=== PATIENT | female | born 1960 | race Caucasian/White ===

== ENCOUNTER 2017-12-28 16:35 | Inpatient (IN) | payer MEDICARE, SELFPAY ==
[2017-12-28] VITALS (15 sets, daily range): BP systolic 72–155; BP diastolic 37–81; PULSE 64–99; RESP 11–17; TEMP 35.9–36.5; O2SAT 87–100; BMI 41.5; BMI 43.3
[2017-12-28 16:52] LABS: Bedside Glucose 134 mg/dL (70-110)
--- NOTE | 2017-12-28 16:55 | EKG12_ITS ---
Test Reason : NEURO S/SX Blood Pressure : / mmHG Vent. Rate : 072 BPM Atrial Rate : 072 BPM P-R Int : 188 ms QRS Dur : 096 ms QT Int : 450 ms P-R-T Axes : 052 055 -32 degrees QTc Int : 492 ms Normal sinus rhythm Normal ECG Confirmed by RACIEL RAYMUNDO ([id number]), purchasing expeditor MEGHANN MILLER ([id number] on 01/01/2018 1:06:31 PM Referred By: KYREE/KEAGAN Confirmed By:RACIEL RAYMUNDO
[2017-12-28] MEDS: 0.9% Normal Saline 1,000 ML IV.SOLN. 2500 ML IV (17:00)
--- NOTE | 2017-12-28 17:00 | RAD_ITS ---
STUDY: X-RAY CHEST REASON FOR EXAM: Female, 57 years old. PT [place] [facility] WITH LEFT SIDED FACIAL DROOP, SLURRED SPEECH. HYPOTENSION. BG 193 TECHNIQUE: PT FROM [facility] WITH LEFT SIDED FACIAL DROOP, SLURRED SPEECH. HYPOTENSION. BG 193 COMPARISON: November 18, 2017 FINDINGS: Cardiac monitoring leads are present. The lungs are clear and expanded. There is no demonstrated pleural abnormality. Normal size heart. Normal mediastinum and jonathan. Normal visualized pulmonary arteries. Normal visualized aortic arch and descending thoracic aorta. There are diffuse degenerative changes of the visualized thoracic spine. Normal visualized ribs, clavicles, and shoulders. There is no demonstrated abnormality of the visualized soft tissue structures of the upper abdomen. RAD/Chest 1 View (Portable) IMPRESSION: No acute intrathoracic process or interval change. Electronically Signed: Mikki Saez MD at 18:02 EST Tel , Service support ,
--- NOTE | 2017-12-28 17:00 | ED.VISSUMM ---
- ER Visit Summary Date of Service: 12/28/17 Chief Complaint: Decreased level of consciousness History of Present Illness: The patient is a 57 F from [facility] facility who has a decreased level of consciousness. Apparently, one nurse there said that she is at her baseline and the other nurse said that she is lethargic. The patient states that she feels fine and she is ready to democrat. She does appear lethargic. She has no other focal complaints. Patient is evaluated at approximately 4:45 PM, she had lunch at 1:30 PM and afterwards she was given medicines that included gabapentin 800 mg and Percocet, unknown dose. The medicines were for her back. She states right now her back feels great. Around 1-2 weeks ago, her gabapentin dose was increased. There is no other specific history provided. The time of symptom onset is unknown. The patient states I was going to visit a friend, when they suddenly detoured me here, to the ER. Physical Examination: Urgent. Blood pressure 72/37, heart rate 74, respirations 14, pulse ox 97% on 2 L nasal cannula. Afebrile. Obese. Alerts easily to voice. Not confused. Nonlateralizing normal neurologic exam otherwise. No facial droop appreciated. On command, she raises all 4 extremities without difficulty. Lungs are clear, easy work of breathing. Heart is regular without tachycardia or murmur. Neck is supple. No meningismus. Abdomen benign. 1+ bilateral lower extremity symmetric edema that is chronic according to her since her last stroke which was sometime last year. Pupils are 2 mm bilaterally and reactive. Oral mucous membranes are a little dry. Test Results: EKG shows sinus rhythm at 72 and is normal. Labs show a hemoglobin 7.8, her last one was 8.5 a month ago. Her BUN is 28, creatinine is 2.01, her creatinine was 0.88 one month ago. Otherwise labs are normal including a lactate 1.1. Urinalysis shows no signs of infection. Chest x-ray and CT head showed no acute abnormalities. Hemoccult stool negative. Influenza negative. Emergency Department Course and Treatment: She was given 2-1/2 L of IV fluid bolus and on reevaluation her blood pressure is 80s over 50s, later 95/65. Her clinical condition is unchanged, we woke her up for Hemoccult and she was able to help us roll herself over. Otherwise she is stable and breathing well and satting well. Unknown if her anemia is causing her hypotension, I see no sign of infection. There is no sign of any bleeding from anywhere. Medications could be causing this, but after being observed for 4 and half hours her condition is unchanged clinically and her blood pressure is slowly increasing. Will admit for further evaluation and treatment. Disposition: Admit Impression: Acute kidney injury Hypotension Acute on chronic anemia Lethargy This note was generated with [employer] dictation software. It may contain incorrect words, spelling, and punctuation that were not noted in review of the chart prior to signing ED Disposition - Plan for ED Patient: Disposition: Acute Care Hospital [facility] Chief Complaint: Neuro S/Sx Referrals: Brandon Torres DO [Primary Care Provider] -
--- NOTE | 2017-12-28 17:03 | ED.DCSUM_ITS ---
- ER Visit Summary Date of Service: 12/28/17 Chief Complaint: Decreased level of consciousness History of Present Illness: The patient is a 57 F from intermediate facility who has a decreased level of consciousness. Apparently, one nurse there said that she is at her baseline and the other nurse said that she is lethargic. The patient states that she feels fine and she is ready to green party. She does appear lethargic. She has no other focal complaints. Patient is evaluated at approximately 4:45 PM, she had lunch at 1:30 PM and afterwards she was given medicines that included gabapentin 800 mg and Percocet, unknown dose. The medicines were for her back. She states right now her back feels great. Around 1-2 weeks ago, her gabapentin dose was increased. There is no other specific history provided. The time of symptom onset is unknown. The patient states I was going to visit a friend, when they suddenly detoured me here, to the ER. Physical Examination: Urgent. Blood pressure 72/37, heart rate 74, respirations 14, pulse ox 97% on 2 L nasal cannula. Afebrile. Obese. Alerts easily to voice. Not confused. Nonlateralizing normal neurologic exam otherwise. No facial droop appreciated. On command, she raises all 4 extremities without difficulty. Lungs are clear, easy work of breathing. Heart is regular without tachycardia or murmur. Neck is supple. No meningismus. Abdomen benign. 1+ bilateral lower extremity symmetric edema that is chronic according to her since her last stroke which was sometime last year. Pupils are 2 mm bilaterally and reactive. Oral mucous membranes are a little dry. Test Results: EKG shows sinus rhythm at 72 and is normal. Labs show a hemoglobin 7.8, her last one was 8.5 a month ago. Her BUN is 28, creatinine is 2.01, her creatinine was 0.88 one month ago. Otherwise labs are normal including a lactate 1.1. Urinalysis shows no signs of infection. Chest x-ray and CT head showed no acute abnormalities. Hemoccult stool negative. Influenza negative. Emergency Department Course and Treatment: She was given 2-1/2 L of IV fluid bolus and on reevaluation her blood pressure is 80s over 50s, later 95/65. Her clinical condition is unchanged, we woke her up for Hemoccult and she was able to help us roll herself over. Otherwise she is stable and breathing well and satting well. Unknown if her anemia is causing her hypotension, I see no sign of infection. There is no sign of any bleeding from anywhere. Medications could be causing this, but after being observed for 4 and half hours her condition is unchanged clinically and her blood pressure is slowly increasing. Will admit for further evaluation and treatment. Disposition: Admit Impression: Acute kidney injury Hypotension Acute on chronic anemia Lethargy This note was generated with [employer] dictation software. It may contain incorrect words, spelling, and punctuation that were not noted in review of the chart prior to signing ED Disposition - Plan for ED Patient: Disposition: Acute Care Hospital [facility] Chief Complaint: Neuro S/Sx Referrals: Brandon Torres DO [Primary Care Provider] -
--- NOTE | 2017-12-28 17:03 | CT_ITS ---
STUDY: CT BRAIN WITHOUT CONTRAST REASON FOR EXAM: Female, 57 years old. DECREASED LOC LEFT FACIAL DROOP, SLURRED SPEECH HTN,ASTHMA,DIAB RADIATION DOSAGE (If Supplied By Facility): CTDIvol = ( 44.99 ) mGy, DLP = ( 762.36 ) mGycm TECHNIQUE: Transaxial CT imaging of the brain was performed without administration of intravenous contrast material. Individualized dose optimization techniques were used for this CT. COMPARISON: MRI of the brain November 19, 2017, CT brain November 17, 2017 FINDINGS: Normal soft tissue structures. Normal calvarium. Normal size ventricles and extra-axial spaces for the patient's age. There are areas of decreased attenuation within the white matter tracts of the supratentorial brain, consistent with microvascular disease changes. Normal basal ganglia and thalami. Normal brainstem. Normal cerebellum. There is no intracranial hemorrhage. There are no findings of an acute ischemic infarction. The previously seen punctate subcortical areas of infarction are difficult to identify on CT though there is a focal area of hypodensity associated with the high right frontal lobe at the vertex that does correlate to prior area of identified infarction. Normal visualized paranasal sinuses. CT/Brain/Head without Contrast IMPRESSION: No acute interval changes. No evidence of hemorrhage. Electronically Signed: Mikki Saez MD at 17:59 EST Tel , Service support ,
[2017-12-28 17:46] LABS: Absolute Lymphocyte Count 1.57 X10^3/ul (0.83-4.51); Absolute Neutrophil Count 3.4 X10^3/uL (2.0-7.7); Basophil# 0.03 X10^3/uL; Basophil% 0.5 % (0-1); Eosinophil# 0.18 X10^3/uL; Eosinophils% 3.2 % (0-5); Hematocrit 24.2 % (37-47); Hemoglobin 7.8 g/dl (12.0-15.0); Lymphocyte # 1.57 X10^3/ul (4.0); Lymphocyte % 27.6 % (19-41); Mean Corp Hgb Conc 32.2 g/gl (32-36); Mean Corpuscular Volume 93.1 fL (81-99); Mean Platelet Vol. 9.6 fl (6.2-12.0); Monocyte# 0.49 X10^3/uL; Monocyte% 8.6 % (0-10); Neutrophil # 3.38 X10^3/uL (2.7-7.7); Neutrophil % 59.6 % (47-70); Platelet Count 185 K/mm3 (150-450); RBC Distribution Width CV 13.9 % (11.6-14.6); RBC Distribution Width SD 45.6 fl (35.1-43.9); White Blood Count 5.7 K/mm3 (4.4-11.0)
[2017-12-28 17:52] LABS: POSITIVE COUNT NO; POSITIVE DIFFERENTIAL NO; POSITIVE MORPHOLOGY NO
[2017-12-28 17:57] LABS: ALB/GLOB Ratio 0.9 RATIO (0.9-2.4); AST(SGOT) 25 U/L (15-37); Alanine Aminotransfer ALT/SGPT 19 U/L (13-56); Albumin, Serum 3.1 g/dL (3.2-5.0); Alkaline Phosphatase 67 U/L (45-117); Anion Gap 8 (5-15); BUN 28 mg/dL (7-18); BUN/Creat Ratio 13.9 RATIO (10-20); Calcium,Total 8.9 mg/dL (8.5-10.1); Chloride 102 mmol/L (98-107); Creatinine, Serum 2.01 mg/dL (0.55-1.02); EST Glomerular Filtration Rate 27 mL/min (>60); Est Glom Filt Rate - Afr Amer 33 mL/min (>60); Estimated Creatinine Clearance 30.03 ml/min; Globulin 3.4 g/dL (2.2-4.2); Glucose 68 mg/dL (74-106); Potassium 3.6 mmol/L (3.5-5.1); Protein, Total 6.5 g/dL (6.4-8.2); Sodium Level 140 mmol/L (136-145)
[2017-12-28 18:13] LABS: International Normalized Ratio 1.1; Partial Thromboplast Time 28.8 Seconds (24.1-36.2); Prothrombin Time (Protime)PT. 13.7 SECONDS (11.7-14.9)
[2017-12-28 18:27] LABS: Mucous, Urine 0 SEEN /hpf (<or=2+); Red Blood Cells-Urine 0 SEEN /hpf (0-5); White Blood Cells 0 SEEN /hpf (0-5)
[2017-12-28 18:28] LABS: Lactic Acid 1.1 mmol/L (0.4-2.0)
[2017-12-28 18:56] LABS: Bedside Glucose 79 mg/dL (70-110)
[2017-12-28 19:19] LABS: Color, Urine Yellow (Yellow); Glucose, Dipstick Normal (Normal); Ketone-Dipstick Negative (Negative); Leukocyte Esterase-Dipstick 25 /ul (Negative); Nitrite-Dipstick Negative (Negative); Occult Blood-Urine Negative /ul (Negative); Protein-Dipstick Negative (Negative); Urine Bilirubin Dipstick Negative (Negative); Urine Clarity Clear (Clear); Urine Urobilinogen Normal (Normal)
[2017-12-28 19:37] LABS: Bacteria RARE /hpf (None Seen); Squamous Epithelial Cells - UA 0-5 SEEN /hpf (5-10)
[2017-12-28 20:21] LABS: Bedside Glucose 92 mg/dL (70-110)
--- NOTE | 2017-12-28 20:57 | ED.RN ---
PT FROM [facility] FOR SLURRED SPEECH, ALTERED LOC, AND POSSIBLE FACIAL DROOP. CONFLICTING STORIES FROM THE NURSES AT [facility]. PT ARRIVES TO ED WITH NO FACIAL DROOP NOTED. STRENGTH INTACT. PT HAS BASELINE SLURRED SPEECH PER [facility] NURSE. NO NIHS ORDERED. PT NOW ALERT AND WATCHING TELEVISION. SEE ADMISSION REPORTS FOR FURTHER DETAILS. PT WITH RASH ON LEFT THIGH AND BUTTOCK. DRESSINGS INTACT.
--- NOTE | 2017-12-28 22:25 | ED.RN ---
PT SISTER NAMED DEANDRE, IS PT MATTIE. PHONE NUMBER IS [phone]. WOULD LIKE CONTACTED WITH PT UPDATES.
--- NOTE | 2017-12-28 22:28 | ED.RN ---
ADONIS NOTIFIED OF PT ADMISSION
--- NOTE | 2017-12-28 22:58 | PCM.HP.STD ---
Problem List (1) ARF (acute renal failure) Status: Acute (2) Coronary artery disease Status: Chronic (3) Diabetes mellitus, type 2 Status: Chronic (4) Hyperlipemia Status: Chronic (5) Hypertension Status: Chronic History of Present Illness Date of Admission: 12/28/17 Chief Complaint: Hypotension The patient is a 57 year old female w/ h/o CAD, HTN, DMII, and ischemic colitis admitted for ARTIE. She is unable to provide a reliable history. Family member stated that she is usually lethargic but the severity is more intense than usual. Unclear onset and duration. Nothing appeared to make it worse or better. Nursing staff from the home unable to give a reliable history as well. She appeared confused and lethargic in the ED. Past Medical History Past Medical History (Chronic Problems): Chronic Problems Hyperlipemia (Chronic) Hypertension (Chronic) Coronary artery disease (Chronic) Diabetes mellitus, type 2 (Chronic) History of Clostridium difficile infection (Chronic) Hx of diverticulitis of colon (Chronic) Status post partial colectomy Obesity (Chronic) Chronic constipation with suspected IBS (Chronic) History of ischemic colitis (Chronic) Allergies adhesive Allergy (Verified 12/28/17 16:35) Unknown hydromorphone HCl [From Dilaudid] Allergy (Verified 12/28/17 16:35) Itching sulfamethoxazole [From Bactrim] Allergy (Verified 12/28/17 16:35) Unknown trimethoprim [From Bactrim] Allergy (Verified 12/28/17 16:35) Unknown Home Medications: Ambulatory Orders Medication Instructions Recorded Carvedilol [Coreg (Beta Eleni)] 25 mg PO BID 09/11/13 Dicyclomine HCl [Bentyl] 40 mg PO TID 02/21/14 Pantoprazole Sodium [Protonix] 40 mg PO BID #60 tablet 07/02/14 Tizanidine HCl [Zanaflex] 4 mg PO TID PRN 05/01/15 Losartan Potassium [Cozaar] 100 mg PO DAILY 03/12/17 Calcium Citrate/Vitamin D3 1 each PO DAILY 11/17/17 [Calcium Citrate-Vit D3 Tablet] Flaxseed Oil [Paia-3 Flaxseed Oil] 1,000 mg PO DAILY 11/17/17 Furosemide [Lasix] 20 mg PO DAILY 11/17/17 Levothyroxine Sodium [Levoxyl] 88 mcg PO DAILY 11/17/17 Potassium Chloride [Klor-Con] 20 meq PO DAILY 11/17/17 Venlafaxine XR [Effexor Xr] 150 mg PO QHS 11/17/17 Aspirin [Aspirin, Baby] 81 mg PO DAILY@0800 #0 tab.chew 11/23/17 Ferrous Sulfate 325 mg PO BIDCM #30 tab 11/23/17 Clopidogrel Bisulfate [Plavix] 75 mg PO DAILY 11/29/17 Lorazepam [Ativan] 0.5 mg PO BID 11/29/17 Oxycodone HCl/Acetaminophen 1 tab PO TID 11/29/17 [Oxycodon-Acetaminophen 7.5-325] Acetaminophen 650 mg PO Q6H PRN PRN 12/28/17 Atorvastatin Calcium [Lipitor] 40 mg PO QHS 12/28/17 Bisacodyl [Dulcolax] 10 mg PO PRN PRN 12/28/17 Bisacodyl [Laxative Suppository] 10 mg RC DAILY PRN PRN 12/28/17 Gabapentin [Neurontin] 800 mg PO TIDCM 12/28/17 Linagliptin [Tradjenta] 5 mg PO DAILY 12/28/17 Magnesium Hydroxide [Milk Of 30 ml PO DAILY PRN PRN 12/28/17 Magnesia] Mupirocin [Bactroban] 1 applic TOPICAL TID 12/28/17 Senna [Senokot] 2 tablet PO QHS 12/28/17 Sertraline HCl [Zoloft] 50 mg PO DAILY 12/28/17 Surgical History: cholecystectomy, total knee arthroplasty, tonsillectomy, - - partial colon resection due to diverticulosis. Psychiatric History: No pertinent psych hx [employer]URITY History: No pertinent [employer] history Smoking Status: Former smoker - *Family History Paternal History Items: Heart Disease Maternal History Items: No pertinent history Review of Systems Unable to obtain accurate/complete ROS d/t: Unable to obtain secondary to confusion VTE Information - Inpt Only VTE Present on Admission: No VTE Mechan Device Prophylaxis: SCD's VTE Pharm Prophylaxis ordered?: Yes - Physical Exam General: No apparent distress, Confused, Disoriented, Lethargic HEENT: Atraumatic, PERRLA, EOMI, Normocephalic Neck: Supple, No JVD, Negative Carotid Bruits Lungs: Clear to auscultation, Normal air movement Cardiovascular: Regular rate, No murmurs Abdomen: Bowel Sounds Present, Soft, Non Tender Extremities: No edema, Capillary Refill Less than 3 Seconds Skin: No rashes, No breakdown Musculoskeletal: No Tenderness to Palpation of Joints or Extremities Neurological: Cranial nerves II-XII grossly intact Psych/Mental Status: Normal Affect, Appropriate Vital Signs Temp Pulse Resp BP Pulse Ox 97.7 F L 73 14 86/42 L 100 12/28/17 21:11 12/28/17 22:11 12/28/17 22:11 12/28/17 22:11 12/28/17 22:11 Oxygen Flow Rate 3 Oxygen Delivery Method Nasal Cannula Weight: 120.2 kg Body Mass Index (BMI) 41.5 Finger Stick Blood Glucose 79 Microbiology Past 72 Hours 12/28/17 20:10 Influenza Types A,B Direct FA (ENEDELIA) - Final Mucosa - Nose 12/28/17 20:11 Stool Occult Blood (ENEDELIA) - Final Stool Laboratory Tests Past 24 Hrs 12/28/17 12/28/17 12/28/17 17:30 17:30 17:30 WBC 5.7 RBC 2.60 L Hgb 7.8 L Hct 24.2 L MCV 93.1 MCH 30.0 MCHC 32.2 RDW 13.9 RDW Differential 45.6 H Plt Count 185 MPV 9.6 Immature Gran % (Auto) 0.500 Neut % (Auto) 59.6 Lymph % (Auto) 27.6 Cole % (Auto) 8.6 Eos % (Auto) 3.2 Baso % (Auto) 0.5 Absolute Neuts (auto) 3.4 Absolute Lymphs (auto) 1.57 Total Counted Not Reportable PT 13.7 INR 1.1 APTT 28.8 Sodium 140 Potassium 3.6 Chloride 102 Carbon Dioxide 30.0 Anion Gap 8 BUN 28 H Creatinine 2.01 H Estim Creat Clear Calc 30.03 Est GFR (MDRD) Af Amer 33 L Est GFR (MDRD) Non-Af 27 L BUN/Creatinine Ratio 13.9 Glucose 68 L Lactic Acid Calcium 8.9 Total Bilirubin 0.60 AST 25 ALT 19 Alkaline Phosphatase 67 Troponin I Total Protein 6.5 Albumin 3.1 L Globulin 3.4 Albumin/Globulin Ratio 0.9 Urine Color Urine Clarity Urine pH Ur Specific [place] Urine Protein Urine Glucose (UA) Urine Ketones Urine Occult Blood Urine Nitrite Urine Bilirubin Urine Urobilinogen Ur Leukocyte Esterase Urine RBC Urine WBC Ur Squamous Epith Cells Urine Bacteria Urine Mucus 12/28/17 12/28/17 12/28/17 17:30 17:30 18:20 WBC RBC Hgb Hct MCV MCH MCHC RDW RDW Differential Plt Count MPV Immature Gran % (Auto) Neut % (Auto) Lymph % (Auto) Cole % (Auto) Eos % (Auto) Baso % (Auto) Absolute Neuts (auto) Absolute Lymphs (auto) Total Counted PT INR APTT Sodium Potassium Chloride Carbon Dioxide Anion Gap BUN Creatinine Estim Creat Clear Calc Est GFR (MDRD) Af Amer Est GFR (MDRD) Non-Af BUN/Creatinine Ratio Glucose Lactic Acid 1.1 Calcium Total Bilirubin AST ALT Alkaline Phosphatase Troponin I < 0.02 Total Protein Albumin Globulin Albumin/Globulin Ratio Urine Color Yellow Urine Clarity Clear Urine pH 7.0 Ur Specific [place] 1.010 Urine Protein Negative Urine Glucose (UA) Normal Urine Ketones Negative Urine Occult Blood Negative Urine Nitrite Negative Urine Bilirubin Negative Urine Urobilinogen Normal Ur Leukocyte Esterase 25 H Urine RBC 0 SEEN Urine WBC 0 SEEN Ur Squamous Epith Cells 0-5 SEEN Urine Bacteria RARE Urine Mucus 0 SEEN POC Glucose 12/28/17 12/28/17 12/28/17 20:14 18:50 16:44 POC Glucose 92 79 134 H Assessment/Plan 57 year old female w/ h/o CAD, HTN, DMII, and ischemic colitis admitted for ARTIE. 1) ARTIE: Most likely secondary to ischemic injury vs azotemia. SBP 70s in the ED. No clear e/o sepsis. Will get cultures. Will get lactic. Will hydrate. U/A negative. If no improvement, will consider further workup. 2) Hypotension: Likely poor PO intake and narcotic along with ARTIE prolonging half-life of meds. Hydration. Sepsis workup pending. Monitor. 3) Chronic normocytic anemia: FOBT negative. Will follow H and H. Supportive care. 4) Chronic issues: CAD, DMII: Resume home meds. 5) Prophylaxis: SCD / heparin
[2017-12-28] MEDS: 0.9% Normal Saline 1,000 ML 125 ML IV (23:34)
[2017-12-29] VITALS (16 sets, daily range): BP systolic 114–183; BP diastolic 62–107; PULSE 94–141; RESP 13–20; TEMP 36.9–37.9; O2SAT 93–100; BMI 43.3
[2017-12-29 00:24] LABS: Lactic Acid 1.5 mmol/L (0.4-2.0)
[2017-12-29] MEDS: Acetaminophen 325 MG Tablet 650 MG PO ×3 (02:13→17:40)
[2017-12-29] MEDS: oxyCODONE 5 MG Tablet PO ×3 (02:42→17:40)
[2017-12-29] MEDS: Dicyclomine 10 MG Capsule 40 MG PO ×3 (05:10→21:48)
[2017-12-29] MEDS: tiZANidine HCl 2 MG Tablet 4 MG PO ×3 (05:10→21:54)
[2017-12-29] MEDS: Levothyroxine 88 MCG Tablet PO (05:12)
[2017-12-29] MEDS: Gabapentin 300 MG Capsule PO ×2 (05:52→11:38)
[2017-12-29 06:13] LABS: Hematocrit 27.1 % (37-47); Hemoglobin 8.7 g/dl (12.0-15.0); Mean Corp Hgb Conc 32.1 g/gl (32-36); Mean Corpuscular Hgb 29.3 pg (27.0-32.0); Mean Corpuscular Volume 91.2 fL (81-99); Mean Platelet Vol. 9.3 fl (6.2-12.0); Platelet Count 164 K/mm3 (150-450); RBC Distribution Width CV 14.1 % (11.6-14.6); RBC Distribution Width SD 46.5 fl (35.1-43.9); Red Blood Count 2.97 M/mm3 (4.2-5.4); White Blood Count 5.6 K/mm3 (4.4-11.0)
[2017-12-29 06:15] LABS: Scan Indicated on CBC? Y/N NO
[2017-12-29 06:55] LABS: Anion Gap 10 (5-15); BUN 28 mg/dL (7-18); BUN/Creat Ratio 17.3 RATIO (10-20); Calcium,Total 8.9 mg/dL (8.5-10.1); Chloride 101 mmol/L (98-107); Creatinine, Serum 1.62 mg/dL (0.55-1.02); EST Glomerular Filtration Rate 35 mL/min (>60); Est Glom Filt Rate - Afr Amer 42 mL/min (>60); Estimated Creatinine Clearance 34.48 ml/min; Glucose 127 mg/dL (74-106); Potassium 4.5 mmol/L (3.5-5.1); Sodium Level 137 mmol/L (136-145)
[2017-12-29] MEDS: 0.9% Normal Saline 1,000 ML 125 ML IV ×2 (08:03→16:14)
--- NOTE | 2017-12-29 08:36 | PCM.PN.HOSP ---
Patient Problems: Active and Suspected Problems Hypotension (Acute) ARF (acute renal failure) (Acute) Subjective: C/o pain in her feet and requesting her neurontin. No shortness of breath. Vitals/I&O's: Vital Signs Temp Pulse Resp BP Pulse Ox 37.6 C H 101 H 13 183/96 H 93 12/29/17 04:56 12/29/17 06:55 12/29/17 04:56 12/29/17 04:56 12/29/17 04:56 Oxygen Flow Rate 2 Oxygen Delivery Method Room Air Weight: 118.1 kg Body Mass Index (BMI) 43.3 Orthostatic Vital Signs Start: 12/28/17 23:40 Freq: q24h Status: Active Protocol: Activity Type Activity Date Activity User E-Sign Co-Sign Detail Recorded Client Recorded Date Recorded By Document 12/28/17 23:42 [facility] [place] [id number] 12/28/17 23:52 EEJ 12/28/17 23:42 Orthostatic Vitals Standing -Blood Pressure (90/60-120/80) 155/81 H -Extremity Use Right Arm -Pulse Rate (60-100) 99 Sitting -Blood Pressure (90/60-120/80) 130/77 H -Extremity Use Left Arm -Pulse Rate (60-100) 86 Lying -Blood Pressure (90/60-120/80) 124/68 H -Extremity Use Left Arm -Pulse Rate (60-100) 79 Intake and Output for Last 24 Hours 12/27/17 12/28/17 12/29/17 23:59 23:59 23:59 Intake Total 0 / 0 1323 / 1323 Output Total 0 / 0 Balance 0 / 0 1323 / 1323 General: Alert, Cooperative, No apparent distress, - - appears older than stated age. HEENT: Atraumatic, Normocephalic Neck: No Nodes, Thyroid Normal Size and Texture Lungs: Clear to auscultation, Normal air movement, No rhonchi, No wheeze Cardiovascular: Regular rate, Regular Rhythm, Normal S1, Normal S2 Abdomen: Bowel Sounds Present, Soft, Non Tender, Non-Distended, No Hepato-splenomegaly Extremities: No edema, No Calf Tenderness Skin: No rashes, No breakdown Psych/Mental Status: Normal Affect, Appropriate Laboratory Results 12/28/17 23:38: Lactic Acid 1.5 12/29/17 05:46: WBC 5.6, RBC 2.97 L, Hgb 8.7 L, Hct 27.1 L, MCV 91.2, MCH 29.3, MCHC 32.1, RDW 14.1, RDW Differential 46.5 H, Plt Count 164, MPV 9.3 12/29/17 05:46: Sodium 137, Potassium 4.5, Chloride 101, Carbon Dioxide 26.0, Anion Gap 10, BUN 28 H, Creatinine 1.62 H, Estim Creat Clear Calc 34.48, Est GFR (MDRD) Af Amer 42 L, Est GFR (MDRD) Non-Af 35 L, BUN/Creatinine Ratio 17.3, Glucose 127 H, Calcium 8.9 Current Medications Acetaminophen (Tylenol) 650 mg PO Q6H PRN PRN PRN Reason: pain/fever Last Admin: 12/29/17 02:13 Dose: 650 mg Aspirin (Aspirin, Baby) 81 mg PO DAILY@0800 [facility] Atorvastatin Calcium (Lipitor) 40 mg PO QHS [facility] Bisacodyl (Dulcolax) 10 mg PO DAILY PRN PRN PRN Reason: Constipation Calcium/Vitamin D (Os-Jose 500mg + D) 1 tablet PO DAILY [facility] Carvedilol (Coreg) 25 mg PO BID [facility] Clopidogrel Bisulfate (Plavix) 75 mg PO DAILY [facility] Dicyclomine HCl (Bentyl) 40 mg PO TID [facility] Last Admin: 12/29/17 05:10 Dose: 40 mg Ferrous Sulfate ([facility] Sulf[facility]) [facility] Gabapentin (Neurontin) 300 mg PO TIDCM [facility] Last Admin: 12/29/17 05:52 Dose: 300 mg Heparin Sodium (Porcine) (Heparin Na) 5,000 unit SC Q8 [facility] Last Admin: 12/29/17 05:10 Dose: 5,000 u Sodium Chloride () 1,000 mls @ 125 mls/hr IV .Q8H [facility] Last Admin: 12/29/17 08:03 Dose: 125 mls/hr Levothyroxine Sodium (Synthroid) 88 mcg PO DAILY@0600 [facility] Last Admin: 12/29/17 05:12 Dose: 88 mcg Nutritional Formula (Lactose Free) (Glucerna Shake) 120 ml PO 4X/DAY [facility] Oxycodone HCl (Oxyir) 5 mg PO Q6H PRN PRN PRN Reason: SEVERE PAIN (6-08/14) Last Admin: 12/29/17 02:42 Dose: 5 mg Pantoprazole Sodium (Protonix) 40 mg PO BID [facility] Senna (Senokot) 2 tablet PO QHS [facility] Sertraline HCl (Zoloft) 50 mg PO DAILY [facility] Tizanidine HCl (Zanaflex) 4 mg PO TID [facility] Last Admin: 12/29/17 05:10 Dose: 4 mg Assessment/Plan Active and Suspected Problems Hypotension (Acute) ARF (acute renal failure) (Acute) 1. ARTIE likely prerenal +/- ATN improved baseline Cr 0.8. continue IVF 2. Hypotension likely hypovolemic now becoming hypertensive slowly reintroduce antihypertesives as able. 3. anemia: chronic. monitor no need for transfusions check iron, tibc, ferritin, b12, folate 4. DM2 fair control continue tradjenta add ssi 5. neuropathy continue neurontin and oxycodone no change at this time, but would recommend wean oxycodone and focus on non-narcotics 6. CAD stable continue DAPT, coreg ARB on hold give ARTIE 7. DVT proph: sq heparin. Code Visit Inpatient E&M: 11141 Subs Hosp L2
--- NOTE | 2017-12-29 08:44 | PN_ITS ---
Patient Problems: Active and Suspected Problems Hypotension (Acute) ARF (acute renal failure) (Acute) Subjective: C/o pain in her feet and requesting her neurontin. No shortness of breath. Vitals/I&O's: Vital Signs Temp Pulse Resp BP Pulse Ox 37.6 C H 101 H 13 183/96 H 93 12/29/17 04:56 12/29/17 06:55 12/29/17 04:56 12/29/17 04:56 12/29/17 04:56 Oxygen Flow Rate 2 Oxygen Delivery Method Room Air Weight: 118.1 kg Body Mass Index (BMI) 43.3 Orthostatic Vital Signs Start: 12/28/17 23:40 Freq: q24h Status: Active Protocol: Activity Type Activity Date Activity User E-Sign Co-Sign Detail Recorded Client Recorded Date Recorded By Document 12/28/17 23:42 [facility] [id number] 12/28/17 23:52 EEJ 12/28/17 23:42 Orthostatic Vitals Standing -Blood Pressure (90/60-120/80) 155/81 H -Extremity Use Right Arm -Pulse Rate (60-100) 99 Sitting -Blood Pressure (90/60-120/80) 130/77 H -Extremity Use Left Arm -Pulse Rate (60-100) 86 Lying -Blood Pressure (90/60-120/80) 124/68 H -Extremity Use Left Arm -Pulse Rate (60-100) 79 Intake and Output for Last 24 Hours 12/27/17 12/28/17 12/29/17 23:59 23:59 23:59 Intake Total 0 / 0 1323 / 1323 Output Total 0 / 0 Balance 0 / 0 1323 / 1323 General: Alert, Cooperative, No apparent distress, - - appears older than stated age. HEENT: Atraumatic, Normocephalic Neck: No Nodes, Thyroid Normal Size and Texture Lungs: Clear to auscultation, Normal air movement, No rhonchi, No wheeze Cardiovascular: Regular rate, Regular Rhythm, Normal S1, Normal S2 Abdomen: Bowel Sounds Present, Soft, Non Tender, Non-Distended, No Hepato- splenomegaly Extremities: No edema, No Calf Tenderness Skin: No rashes, No breakdown Psych/Mental Status: Normal Affect, Appropriate Laboratory Results 12/28/17 23:38: Lactic Acid 1.5 12/29/17 05:46: WBC 5.6, RBC 2.97 L, Hgb 8.7 L, Hct 27.1 L, MCV 91.2, MCH 29.3, MCHC 32.1, RDW 14.1, RDW Differential 46.5 H, Plt Count 164, MPV 9.3 12/29/17 05:46: Sodium 137, Potassium 4.5, Chloride 101, Carbon Dioxide 26.0, Anion Gap 10, BUN 28 H, Creatinine 1.62 H, Estim Creat Clear Calc 34.48, Est GFR (MDRD) Af Amer 42 L, Est GFR (MDRD) Non-Af 35 L, BUN/Creatinine Ratio 17.3, Glucose 127 H, Calcium 8.9 Current Medications Acetaminophen (Tylenol) 650 mg PO Q6H PRN PRN PRN Reason: pain/fever Last Admin: 12/29/17 02:13 Dose: 650 mg Aspirin (Aspirin, Baby) 81 mg PO DAILY@0800 [facility] Atorvastatin Calcium (Lipitor) 40 mg PO QHS [facility] Bisacodyl (Dulcolax) 10 mg PO DAILY PRN PRN PRN Reason: Constipation Calcium/Vitamin D (Os-Jose 500mg + D) 1 tablet PO DAILY [facility] Carvedilol (Coreg) 25 mg PO BID [facility] Clopidogrel Bisulfate (Plavix) 75 mg PO DAILY [facility] Dicyclomine HCl (Bentyl) 40 mg PO TID [facility] Last Admin: 12/29/17 05:10 Dose: 40 mg Ferrous Sulfate ([facility]ous Sulfate) [facility] Gabapentin (Neurontin) 300 mg PO TIDCM [facility] Last Admin: 12/29/17 05:52 Dose: 300 mg Heparin Sodium (Porcine) (Heparin Na) 5,000 unit SC Q8 [facility] Last Admin: 12/29/17 05:10 Dose: 5,000 u Sodium Chloride () 1,000 mls @ 125 mls/hr IV .Q8H [facility] Last Admin: 12/29/17 08:03 Dose: 125 mls/hr Levothyroxine Sodium (Synthroid) 88 mcg PO DAILY@0600 [facility] Last Admin: 12/29/17 05:12 Dose: 88 mcg Nutritional Formula (Lactose Free) (Glucerna Shake) 120 ml PO 4X/DAY [facility] Oxycodone HCl (Oxyir) 5 mg PO Q6H PRN PRN PRN Reason: SEVERE PAIN (6-08/14) Last Admin: 12/29/17 02:42 Dose: 5 mg Pantoprazole Sodium (Protonix) 40 mg PO BID [facility] Senna (Senokot) 2 tablet PO QHS [facility] Sertraline HCl (Zoloft) 50 mg PO DAILY [facility] Tizanidine HCl (Zanaflex) 4 mg PO TID [facility] Last Admin: 12/29/17 05:10 Dose: 4 mg Assessment/Plan Active and Suspected Problems Hypotension (Acute) ARF (acute renal failure) (Acute) 1. ARTIE * likely prerenal +/- ATN * improved * baseline Cr 0.8. * continue IVF 2. Hypotension * likely hypovolemic * now becoming hypertensive * slowly reintroduce antihypertesives as able. 3. anemia: * chronic. * monitor * no need for transfusions * check iron, tibc, ferritin, b12, folate 4. DM2 * fair control * continue tradjenta * add ssi 5. neuropathy * continue neurontin and oxycodone * no change at this time, but would recommend wean oxycodone and focus on non- narcotics 6. CAD * stable * continue DAPT, coreg * ARB on hold give ARTIE 7. DVT proph: sq heparin. Code Visit Inpatient E&M: 44277 Subs Hosp L2
[2017-12-29 08:57] LABS: Amphetamine Urine VISTA NEGATIVE (<1000 ng/mL); Barbiturate Urine VISTA NEGATIVE (< 200 ng/mL); Benzodiazepine Urine VISTA NEGATIVE (< 200 ng/mL); Cocaine Urine VISTA NEGATIVE (< 300 ng/mL); Ecstacy Urine VISTA NEGATIVE (< 500 ng/mL); Methadone Urine VISTA NEGATIVE (< 300 ng/mL); PCP Urine VISTA NEGATIVE (< 25 ng/mL); THC Urine VISTA NEGATIVE (< 50 ng/mL); Vista UDS pH Range 7
[2017-12-29] MEDS: LORazepam 0.5 MG Tablet PO (10:15)
[2017-12-29] MEDS: Aspirin 81 MG TAB.CHEW PO (10:18)
[2017-12-29] MEDS: Ferrous Sulfate 325 MG Tablet PO ×2 (10:18→17:03)
[2017-12-29] MEDS: Calcium Carb/Vitamin D 1 TABLET Tablet PO (10:19)
[2017-12-29] MEDS: Carvedilol 12.5 MG Tablet 25 MG PO ×2 (10:19→21:49)
[2017-12-29] MEDS: Clopidogrel Bisulfate 75 MG Tablet PO (10:19)
[2017-12-29] MEDS: Pantoprazole Sodium 40 MG Tablet PO ×2 (10:20→21:53)
[2017-12-29] MEDS: Sertraline 50 MG Tablet PO (10:21)
[2017-12-29] MEDS: Glucerna Shake 120 ML LIQUID PO ×4 (10:24→21:49)
--- NOTE | 2017-12-29 10:26 | NURSING ---
Patient requested to take all 0800 and 1000 medications together at this time.
[2017-12-29] MEDS: LINAGLIPTIN 5 MG TABLET PO (10:35)
--- NOTE | 2017-12-29 13:50 | CASEMGMT ---
Social Work Note - PCU Referral: Per RN CM patient came from [facility]. Chart review: Noted patient was admitted to [facility] on 11-23-17 skilled level of care. Intervention: Spoke with Christiane from [facility]. Patient continues to be skilled under insurance and patient can be accepted back. Patient will need a new precertification however. PLAN: Social work to follow up on Sunday and send clinical information when available for initiation of new precert. -MYNOR Villalba, YARDER BOSS
--- NOTE | 2017-12-29 15:00 | RAD_ITS ---
STUDY: X-RAY CHEST REASON FOR EXAM: Female, 57 years old. HYPOTENSION, SOB TECHNIQUE: Single AP portable view of the chest. COMPARISON: December 28, 2017 FINDINGS: Cardiac monitoring leads are present. Heart size is stable. There is fullness of central pulmonary vasculature with cephalization of blood flow. There is greater prominence of the interstitium than that seen on prior study consistent with pulmonary vascular congestion and potentially mild interstitial edema though I do not see evident Marie B lines. There is no alveolar infiltration or consolidation. No pleural effusion. Normal visualized thoracic spine. Normal visualized ribs, clavicles, and shoulders. There is no demonstrated abnormality of the visualized soft tissue structures of the upper abdomen. RAD/Chest 1 View (Portable) IMPRESSION: Pulmonary vascular congestion/mild interstitial edema. Electronically Signed: Mikki aSez MD at 19:53 EST Tel , Service support ,
[2017-12-29] MEDS: Gabapentin 800 MG Tablet PO (17:03)
--- NOTE | 2017-12-29 21:37 | EKG12_ITS ---
Test Reason : CP Blood Pressure : / mmHG Vent. Rate : 112 BPM Atrial Rate : 112 BPM P-R Int : 164 ms QRS Dur : 094 ms QT Int : 336 ms P-R-T Axes : 061 044 051 degrees QTc Int : 458 ms Sinus tachycardia Otherwise normal ECG When compared with ECG of 28-DEC-2017 16:47, MANUAL COMPARISON REQUIRED, DATA IS UNCONFIRMED Confirmed by PETRONA CASTRO, LUIS FERNANDO ([id number]), editor trade journal MEGHANN MILLER ([id number]) on 01/02/2018 2:42:33 PM Referred By: DR RUSSELL Confirmed By:LUIS FERNANDO RUSS MD
[2017-12-29] MEDS: Venlafaxine XR 75 MG Capsule 150 MG PO (21:49)
[2017-12-29] MEDS: Atorvastatin Calcium 40 MG Tablet PO (21:51)
[2017-12-29] MEDS: Gabapentin 600 MG Tablet PO (21:52)
[2017-12-29] MEDS: Gabapentin 400 MG Capsule PO (21:52)
[2017-12-29] MEDS: Senna Tablet 2 TABLET PO (21:53)
[2017-12-29] MEDS: Albuterol 2.5 MG/3 ML VIAL.NEB. INHALATION (21:55)
--- NOTE | 2017-12-29 23:39 | NURSING ---
At shift change pt stated, I want to hurt my sister real bad.
[2017-12-30] VITALS (17 sets, daily range): BP systolic 96–207; BP diastolic 57–109; PULSE 91–124; RESP 16–18; TEMP 36.7–38.1; O2SAT 93–100
[2017-12-30] MEDS: Dicyclomine 10 MG Capsule 40 MG PO ×3 (05:03→22:17)
[2017-12-30] MEDS: Levothyroxine 88 MCG Tablet PO (05:03)
[2017-12-30] MEDS: oxyCODONE 5 MG Tablet PO ×3 (05:04→19:45)
[2017-12-30] MEDS: tiZANidine HCl 2 MG Tablet 4 MG PO ×3 (05:04→22:07)
[2017-12-30 08:01] LABS: Absolute Neutrophil Count 3.6 X10^3/uL (2.0-7.7); Basophil# 0.02 X10^3/uL; Basophil% 0.4 % (0-1); Eosinophils% 1.9 % (0-5); Hematocrit 24.8 % (37-47); Hemoglobin 8.2 g/dl (12.0-15.0); Lymphocyte % 21.2 % (19-41); Mean Corp Hgb Conc 33.1 g/gl (32-36); Mean Corpuscular Hgb 30.4 pg (27.0-32.0); Mean Corpuscular Volume 91.9 fL (81-99); Mean Platelet Vol. 9.5 fl (6.2-12.0); Monocyte# 0.32 X10^3/uL; Monocyte% 6.2 % (0-10); Neutrophil # 3.62 X10^3/uL (2.7-7.7); Neutrophil % 69.9 % (47-70); POSITIVE COUNT NO; POSITIVE DIFFERENTIAL NO; POSITIVE MORPHOLOGY NO; Platelet Count 197 K/mm3 (150-450); RBC Distribution Width CV 13.4 % (11.6-14.6); RBC Distribution Width SD 43.8 fl (35.1-43.9); White Blood Count 5.2 K/mm3 (4.4-11.0)
[2017-12-30 08:30] LABS: Anion Gap 8 (5-15); BUN 14 mg/dL (7-18); BUN/Creat Ratio 13.2 RATIO (10-20); Chloride 105 mmol/L (98-107); Creatinine, Serum 1.06 mg/dL (0.55-1.02); EST Glomerular Filtration Rate 57 mL/min (>60); Est Glom Filt Rate - Afr Amer 69 mL/min (>60); Estimated Creatinine Clearance 52.69 ml/min; Ferritin 267 ng/mL (8-252); Glucose 143 mg/dL (74-106); Iron 30 ug/dL (50-170); Iron Binding Capacity,Total 245 ug/dL (250-450); PERCENT IRON SATURATION 12.2 % (15.0-55.0); Potassium 3.7 mmol/L (3.5-5.1); Sodium Level 140 mmol/L (136-145); Thyroid Stim Hormone (TSH) 1.37 uIU/mL (0.358-3.74)
[2017-12-30] MEDS: Carvedilol 12.5 MG Tablet 25 MG PO ×2 (08:44→22:08)
[2017-12-30] MEDS: Gabapentin 800 MG Tablet PO ×2 (08:45→16:25)
[2017-12-30] MEDS: LINAGLIPTIN 5 MG TABLET PO (08:45)
[2017-12-30] MEDS: Clopidogrel Bisulfate 75 MG Tablet PO (08:45)
[2017-12-30] MEDS: Sertraline 50 MG Tablet PO (08:45)
[2017-12-30] MEDS: Pantoprazole Sodium 40 MG Tablet PO ×2 (08:45→22:10)
[2017-12-30] MEDS: Ferrous Sulfate 325 MG Tablet PO ×2 (08:45→16:24)
[2017-12-30] MEDS: Aspirin 81 MG TAB.CHEW PO (08:45)
[2017-12-30] MEDS: Calcium Carb/Vitamin D 1 TABLET Tablet PO (08:45)
[2017-12-30] MEDS: Glucerna Shake 120 ML LIQUID PO ×2 (08:45→14:52)
--- NOTE | 2017-12-30 11:34 | PCM.PN.HOSP ---
Patient Problems: Active and Suspected Problems Hypotension (Acute) ARF (acute renal failure) (Acute) Subjective: Had some shortness of breath last night. Currently, breathing well. Leg pain better with her regular dosing of neurontin. Vitals/I&O's: Vital Signs Temp Pulse Resp BP Pulse Ox 36.9 C 91 16 153/78 H 98 12/30/17 08:42 12/30/17 08:42 12/30/17 08:42 12/30/17 08:42 12/30/17 11:24 Oxygen Flow Rate 2 Oxygen Delivery Method Room Air Weight: 118.1 kg Body Mass Index (BMI) 43.3 Intake and Output for Last 24 Hours 12/28/17 12/29/17 12/30/17 23:59 23:59 23:59 Intake Total 0 / 0 5420 / 5420 700 / 700 Output Total 0 / 0 Balance 0 / 0 5420 / 5420 700 / 700 General: Alert, Cooperative, No apparent distress HEENT: Atraumatic, Normocephalic Neck: No Nodes, Thyroid Normal Size and Texture Lungs: Clear to auscultation, Normal air movement, No rhonchi, No wheeze Cardiovascular: Regular rate, Regular Rhythm, Normal S1, Normal S2, No murmurs Abdomen: Bowel Sounds Present, Soft, Non Tender, Non-Distended, No Hepato-splenomegaly, Obese Extremities: No edema, No Calf Tenderness Laboratory Results 12/29/17 23:38: Troponin I < 0.02 12/30/17 03:25: Troponin I < 0.02 12/30/17 07:38: WBC 5.2, RBC 2.70 L, Hgb 8.2 L, Hct 24.8 L, MCV 91.9, MCH 30.4, MCHC 33.1, RDW 13.4, RDW Differential 43.8, Plt Count 197, MPV 9.5, Immature Gran % (Auto) 0.400, Neut % (Auto) 69.9, Lymph % (Auto) 21.2, [place] % (Auto) 6.2, Eos % (Auto) 1.9, Baso % (Auto) 0.4, Absolute Neuts (auto) 3.6, Absolute Lymphs (auto) 1.10, Total Counted Not Reportable 12/30/17 07:38: Sodium 140, Potassium 3.7, Chloride 105, Carbon Dioxide 27.0, Anion Gap 8, BUN 14, Creatinine 1.06 H, Estim Creat Clear Calc 52.69, Est GFR (MDRD) Af Amer 69, Est GFR (MDRD) Non-Af 57 L, BUN/Creatinine Ratio 13.2, Glucose 143 H, Calcium 9.0, Iron 30 L, TIBC 245 L, Iron Saturation 12.2 L, Ferritin 267 H, TSH 1.37 12/30/17 07:38: Vitamin B12 Pending 12/30/17 07:38: RBC Folate Hemolysate Pending, RBC Folate Pending, Hematocrit Pending 12/30/17 07:38: Troponin I < 0.02 Current Medications Acetaminophen (Tylenol) 650 mg PO Q6H PRN PRN PRN Reason: pain/fever Last Admin: 12/29/17 17:40 Dose: 650 mg Albuterol Sulfate (Ventolin Aerosols) 2.5 mg INHALATION Q2H PRN PRN PRN Reason: SHORTNESS OF BREATH Last Admin: 12/29/17 21:55 Dose: 2.5 mg Aspirin (Aspirin, Baby) 81 mg PO DAILY@0800 [facility] Last Admin: 12/30/17 08:45 Dose: 81 mg Atorvastatin Calcium (Lipitor) 40 mg PO QHS [facility] Last Admin: 12/29/17 21:51 Dose: 40 mg Bisacodyl (Dulcolax) 10 mg PO DAILY PRN PRN PRN Reason: Constipation Bisacodyl (Dulcolax) 10 mg RECTAL DAILY PRN PRN PRN Reason: Constipation Calcium/Vitamin D (Os-Jose 500mg + D) 1 tablet PO DAILY [facility] Last Admin: 12/30/17 08:45 Dose: 1 tablet Carvedilol (Coreg) 25 mg PO BID [facility] Last Admin: 12/30/17 08:44 Dose: 25 mg Clopidogrel Bisulfate (Plavix) 75 mg PO DAILY [facility] Last Admin: 12/30/17 08:45 Dose: 75 mg Dicyclomine HCl (Bentyl) 40 mg PO TID [facility] Last Admin: 12/30/17 05:03 Dose: 40 mg [facility]ous Sulfate ([facility]) [facility] Last Admin: 12/30/17 08:45 Dose: 325 mg [facility]ap[facility] ([facility]ontin) [facility] Last Admin: 12/30/17 08:45 Dose: 800 mg Gabapentin (Neurontin) 600 mg PO QHS [facility] Last Admin: 12/29/17 21:52 Dose: 600 mg Gabapentin (Neurontin) 400 mg PO QHS [facility] Last Admin: 12/29/17 21:52 Dose: 400 mg Heparin Sodium (Porcine) (Heparin Na) 5,000 unit SC Q8 [facility] Last Admin: 12/30/17 05:03 Dose: 5,000 u Levothyroxine Sodium (Synthroid) 88 mcg PO DAILY@0600 [facility] Last Admin: 12/30/17 05:03 Dose: 88 mcg Linagliptin (Tradjenta) 5 mg PO DAILY [facility] Last Admin: 12/30/17 08:45 Dose: 5 mg Lorazepam (Ativan) 0.5 mg PO BID PRN PRN Reason: ANXIETY Last Admin: 12/29/17 10:15 Dose: 0.5 mg Magnesium Hydroxide (Milk Of Magnesia) 30 ml PO DAILY PRN PRN Reason: Constipation Nutritional Formula (Lactose Free) (Glucerna Shake) 120 ml PO 4X/DAY [facility] Last Admin: 12/30/17 08:45 Dose: 120 ml Oxycodone HCl (Oxyir) 5 mg PO Q6H PRN PRN PRN Reason: SEVERE PAIN (6-10/10) Last Admin: 12/30/17 05:04 Dose: 5 mg Pantoprazole Sodium (Protonix) 40 mg PO BID [facility] Last Admin: 12/30/17 08:45 Dose: 40 mg Senna (Senokot) 2 tablet PO QHS [facility] Last Admin: 12/29/17 21:53 Dose: 2 tablet Sertraline HCl (Zoloft) 50 mg PO DAILY [facility] Last Admin: 12/30/17 08:45 Dose: 50 mg Tizanidine HCl (Zanaflex) 4 mg PO TID [facility] Last Admin: 12/30/17 05:04 Dose: 4 mg Venlafaxine HCl (Effexor Xr) 150 mg PO QHS [facility] Last Admin: 12/29/17 21:49 Dose: 150 mg Assessment/Plan Active and Suspected Problems Hypotension (Acute) ARF (acute renal failure) (Acute) 57 yo WF presents with hypotension and ARTIE. ARTIE was prerenal. ARTIE now resolved with IVF. 1. ARTIE likely prerenal +/- ATN resolved HLIV Lasix was a factor. Consider PRN if needed, rather than scheduled. 2. Hypotension likely hypovolemic now becoming hypertensive slowly reintroduce antihypertesives as able. 3. anemia: chronic. monitor no need for transfusions check iron, tibc, ferritin, b12, folate TSH WNL 4. DM2 fair control continue tradjenta add ssi 5. neuropathy continue neurontin and oxycodone no change at this time, but would recommend wean oxycodone and focus on non-narcotics 6. CAD stable continue DAPT, coreg resume ARB 7. DVT proph: sq heparin. 8. Disposition: medically stable for discharge. Pt reports that the SNF was planning on discharging her soon. I told her, that if she feels ready, I could discharge today. She says she does not and would like to return to the SNF. await PT/OT Transfer to [facility]. Code Visit Inpatient E&M: 91558 Subs Hosp L2
--- NOTE | 2017-12-30 11:39 | PN_ITS ---
Patient Problems: Active and Suspected Problems Hypotension (Acute) ARF (acute renal failure) (Acute) Subjective: Had some shortness of breath last night. Currently, breathing well. Leg pain better with her regular dosing of neurontin. Vitals/I&O's: Vital Signs Temp Pulse Resp BP Pulse Ox 36.9 C 91 16 153/78 H 98 12/30/17 08:42 12/30/17 08:42 12/30/17 08:42 12/30/17 08:42 12/30/17 11:24 Oxygen Flow Rate 2 Oxygen Delivery Method Room Air Weight: 118.1 kg Body Mass Index (BMI) 43.3 Intake and Output for Last 24 Hours 12/28/17 12/29/17 12/30/17 23:59 23:59 23:59 Intake Total 0 / 0 5420 / 5420 700 / 700 Output Total 0 / 0 Balance 0 / 0 5420 / 5420 700 / 700 General: Alert, Cooperative, No apparent distress HEENT: Atraumatic, Normocephalic Neck: No Nodes, Thyroid Normal Size and Texture Lungs: Clear to auscultation, Normal air movement, No rhonchi, No wheeze Cardiovascular: Regular rate, Regular Rhythm, Normal S1, Normal S2, No murmurs Abdomen: Bowel Sounds Present, Soft, Non Tender, Non-Distended, No Hepato- splenomegaly, Obese Extremities: No edema, No Calf Tenderness Laboratory Results 12/29/17 23:38: Troponin I < 0.02 12/30/17 03:25: Troponin I < 0.02 12/30/17 07:38: WBC 5.2, RBC 2.70 L, Hgb 8.2 L, Hct 24.8 L, MCV 91.9, MCH 30.4, MCHC 33.1, RDW 13.4, RDW Differential 43.8, Plt Count 197, MPV 9.5, Immature Gran % (Auto) 0.400, Neut % (Auto) 69.9, Lymph % (Auto) 21.2, [place] % (Auto) 6.2 , Eos % (Auto) 1.9, Baso % (Auto) 0.4, Absolute Neuts (auto) 3.6, Absolute Lymphs (auto) 1.10, Total Counted Not Reportable 12/30/17 07:38: Sodium 140, Potassium 3.7, Chloride 105, Carbon Dioxide 27.0, Anion Gap 8, BUN 14, Creatinine 1.06 H, Estim Creat Clear Calc 52.69, Est GFR ( MDRD) Af Amer 69, Est GFR (MDRD) Non-Af 57 L, BUN/Creatinine Ratio 13.2, Glucose 143 H, Calcium 9.0, Iron 30 L, TIBC 245 L, Iron Saturation 12.2 L, Ferritin 267 H, TSH 1.37 12/30/17 07:38: Vitamin B12 Pending 12/30/17 07:38: RBC Folate Hemolysate Pending, RBC Folate Pending, Hematocrit Pending 12/30/17 07:38: Troponin I < 0.02 Current Medications Acetaminophen (Tylenol) 650 mg PO Q6H PRN PRN PRN Reason: pain/fever Last Admin: 12/29/17 17:40 Dose: 650 mg Albuterol Sulfate (Ventolin Aerosols) 2.5 mg INHALATION Q2H PRN PRN PRN Reason: SHORTNESS OF BREATH Last Admin: 12/29/17 21:55 Dose: 2.5 mg Aspirin (Aspirin, Baby) 81 mg PO DAILY@0800 [facility] Last Admin: 12/30/17 08:45 Dose: 81 mg Atorvastatin Calcium (Lipitor) 40 mg PO QHS [facility] Last Admin: 12/29/17 21:51 Dose: 40 mg Bisacodyl (Dulcolax) 10 mg PO DAILY PRN PRN PRN Reason: Constipation Bisacodyl (Dulcolax) 10 mg RECTAL DAILY PRN PRN PRN Reason: Constipation Calcium/Vitamin D (Os-Jose 500mg + D) 1 tablet PO DAILY [facility] Last Admin: 12/30/17 08:45 Dose: 1 tablet Carvedilol (Coreg) 25 mg PO BID [facility] Last Admin: 12/30/17 08:44 Dose: 25 mg Clopidogrel Bisulfate (Plavix) 75 mg PO DAILY [facility] Last Admin: 12/30/17 08:45 Dose: 75 mg Dicyclomine HCl (Bentyl) 40 mg PO TID [facility] Last Admin: 12/30/17 05:03 Dose: 40 mg Ferrous Sulfate ([facility]ous Sulfate) [facility] Last Admin: 12/30/17 08:45 Dose: 325 mg Gabapentin (Neurontin) [facility] Last Admin: 12/30/17 08:45 Dose: 800 mg Gabapentin (Neurontin) 600 mg PO QHS [facility] Last Admin: 12/29/17 21:52 Dose: 600 mg Gabapentin (Neurontin) 400 mg PO QHS [facility] Last Admin: 12/29/17 21:52 Dose: 400 mg Heparin Sodium (Porcine) (Heparin Na) 5,000 unit SC Q8 [facility] Last Admin: 12/30/17 05:03 Dose: 5,000 u Levothyroxine Sodium (Synthroid) 88 mcg PO DAILY@0600 [facility] Last Admin: 12/30/17 05:03 Dose: 88 mcg Linagliptin (Tradjenta) 5 mg PO DAILY [facility] Last Admin: 12/30/17 08:45 Dose: 5 mg Lorazepam (Ativan) 0.5 mg PO BID PRN PRN Reason: ANXIETY Last Admin: 12/29/17 10:15 Dose: 0.5 mg Magnesium Hydroxide (Milk Of Magnesia) 30 ml PO DAILY PRN PRN Reason: Constipation Nutritional Formula (Lactose Free) (Glucerna Shake) 120 ml PO 4X/DAY [facility] Last Admin: 12/30/17 08:45 Dose: 120 ml Oxycodone HCl (Oxyir) 5 mg PO Q6H PRN PRN PRN Reason: SEVERE PAIN (6-10/10) Last Admin: 12/30/17 05:04 Dose: 5 mg Pantoprazole Sodium (Protonix) 40 mg PO BID [facility] Last Admin: 12/30/17 08:45 Dose: 40 mg Senna (Senokot) 2 tablet PO QHS [facility] Last Admin: 12/29/17 21:53 Dose: 2 tablet Sertraline HCl (Zoloft) 50 mg PO DAILY [facility] Last Admin: 12/30/17 08:45 Dose: 50 mg Tizanidine HCl (Zanaflex) 4 mg PO TID [facility] Last Admin: 12/30/17 05:04 Dose: 4 mg Venlafaxine HCl (Effexor Xr) 150 mg PO QHS [facility] Last Admin: 12/29/17 21:49 Dose: 150 mg Assessment/Plan Active and Suspected Problems Hypotension (Acute) ARF (acute renal failure) (Acute) 57 yo WF presents with hypotension and ARTIE. ARTIE was prerenal. ARTIE now resolved with IVF. 1. ARTIE * likely prerenal +/- ATN * resolved * HLIV * Lasix was a factor. Consider PRN if needed, rather than scheduled. 2. Hypotension * likely hypovolemic * now becoming hypertensive * slowly reintroduce antihypertesives as able. 3. anemia: * chronic. * monitor * no need for transfusions * check iron, tibc, ferritin, b12, folate * TSH WNL 4. DM2 * fair control * continue tradjenta * add ssi 5. neuropathy * continue neurontin and oxycodone * no change at this time, but would recommend wean oxycodone and focus on non- narcotics 6. CAD * stable * continue DAPT, coreg * resume ARB 7. DVT proph: sq heparin. 8. Disposition: * medically stable for discharge. * Pt reports that the SNF was planning on discharging her soon. I told her, that if she feels ready, I could discharge today. She says she does not and would like to return to the SNF. * await PT/OT Transfer to [facility]. Code Visit Inpatient E&M: 07801 Subs Hosp L2
[2017-12-30] MEDS: Albuterol 2.5 MG/3 ML VIAL.NEB. INHALATION (17:29)
[2017-12-30] MEDS: Furosemide 40 MG Tablet PO (19:29)
[2017-12-30] MEDS: LORazepam 0.5 MG Tablet PO (19:45)
[2017-12-30] MEDS: Gabapentin 400 MG Capsule PO (22:08)
[2017-12-30] MEDS: Gabapentin 600 MG Tablet PO (22:09)
[2017-12-30] MEDS: Senna Tablet 2 TABLET PO (22:09)
[2017-12-30] MEDS: Atorvastatin Calcium 40 MG Tablet PO (22:10)
[2017-12-30] MEDS: Venlafaxine XR 75 MG Capsule 150 MG PO (22:10)
[2017-12-30] MEDS: Ketoconazole Cream 1 APPLIC TOPICAL (22:18)
[2017-12-31 02:00] VITALS: BP 125/66; PULSE 103; RESP 16; TEMP 37.4; O2SAT 96
[2017-12-31] MEDS: tiZANidine HCl 2 MG Tablet 4 MG PO ×3 (06:03→22:00)
[2017-12-31] MEDS: Dicyclomine 10 MG Capsule 40 MG PO ×3 (06:04→21:59)
[2017-12-31] MEDS: oxyCODONE 5 MG Tablet PO ×2 (06:04→20:12)
[2017-12-31] MEDS: Levothyroxine 88 MCG Tablet PO (06:05)
[2017-12-31 06:13] LABS: Anion Gap 8 (5-15); BUN 14 mg/dL (7-18); BUN/Creat Ratio 12.7 RATIO (10-20); Calcium,Total 9.4 mg/dL (8.5-10.1); Chloride 101 mmol/L (98-107); EST Glomerular Filtration Rate 54 mL/min (>60); Est Glom Filt Rate - Afr Amer 66 mL/min (>60); Estimated Creatinine Clearance 50.77 ml/min; Glucose 133 mg/dL (74-106); Potassium 3.4 mmol/L (3.5-5.1); Sodium Level 137 mmol/L (136-145)
[2017-12-31 06:18] LABS: Absolute Lymphocyte Count 1.57 X10^3/ul (0.83-4.51); Absolute Neutrophil Count 5.4 X10^3/uL (2.0-7.7); Basophil# 0.02 X10^3/uL; Basophil% 0.3 % (0-1); Eosinophil# 0.05 X10^3/uL; Eosinophils% 0.6 % (0-5); Hematocrit 27.8 % (37-47); Lymphocyte # 1.57 X10^3/ul (4.0); Lymphocyte % 20.1 % (19-41); Mean Corp Hgb Conc 32.4 g/gl (32-36); Mean Corpuscular Hgb 28.9 pg (27.0-32.0); Mean Corpuscular Volume 89.4 fL (81-99); Mean Platelet Vol. 9.4 fl (6.2-12.0); Monocyte# 0.72 X10^3/uL; Monocyte% 9.2 % (0-10); Neutrophil # 5.41 X10^3/uL (2.7-7.7); Neutrophil % 69.4 % (47-70); Platelet Count 203 K/mm3 (150-450); RBC Distribution Width CV 14.1 % (11.6-14.6); RBC Distribution Width SD 45.8 fl (35.1-43.9); Red Blood Count 3.11 M/mm3 (4.2-5.4); White Blood Count 7.8 K/mm3 (4.4-11.0)
[2017-12-31 06:28] LABS: POSITIVE COUNT NO; POSITIVE DIFFERENTIAL NO; POSITIVE MORPHOLOGY NO
[2017-12-31 08:10] VITALS: BP 129/64; PULSE 81; RESP 16; TEMP 37.1; O2SAT 97
[2017-12-31] MEDS: Aspirin 81 MG TAB.CHEW PO (08:46)
[2017-12-31] MEDS: Ferrous Sulfate 325 MG Tablet PO ×2 (08:46→16:58)
[2017-12-31] MEDS: Gabapentin 800 MG Tablet PO ×2 (08:47→16:58)
[2017-12-31 08:49] LABS: Vitamin B12 625 pg/mL (211-911)
[2017-12-31] MEDS: Ketoconazole Cream 1 APPLIC TOPICAL ×2 (10:12→22:00)
[2017-12-31] MEDS: Carvedilol 12.5 MG Tablet 25 MG PO ×2 (10:13→21:59)
[2017-12-31] MEDS: Calcium Carb/Vitamin D 1 TABLET Tablet PO (10:13)
[2017-12-31] MEDS: Clopidogrel Bisulfate 75 MG Tablet PO (10:13)
[2017-12-31] MEDS: Losartan Potassium 50 MG Tablet PO (10:13)
[2017-12-31] MEDS: Pantoprazole Sodium 40 MG Tablet PO ×2 (10:14→22:00)
[2017-12-31] MEDS: Sertraline 50 MG Tablet PO (10:15)
[2017-12-31] MEDS: LINAGLIPTIN 5 MG TABLET PO (10:15)
--- NOTE | 2017-12-31 10:19 | PN_ITS ---
Patient Problems: Active and Suspected Problems Hypotension (Acute) ARF (acute renal failure) (Acute) Subjective: Patient is a 57-year-old lady resident at the alf facility brought in with hypotension. Patient was found to be in acute kidney injury admitted to regular nursing floor for subsequent management Objective: GENERAL: Flat Affect HEENT: Clear conjunctiva, NECK; supple, normal thyroid, CHEST: Diminished to auscultation bilaterally, HEART: Regular S1 S2, no audible murmurs ABDOMEN: soft, normoactive bowel sounds, RECTAL: deferred EXTREMITIES: No edema, no clubbing, no cyanosis. 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 SKIN: No rash Vitals/I&O's: Vital Signs Temp Pulse Resp BP Pulse Ox 98.7 F 81 16 129/64 H 97 12/31/17 08:10 12/31/17 08:10 12/31/17 08:10 12/31/17 08:10 12/31/17 08:10 Oxygen Flow Rate 2 Oxygen Delivery Method Room Air Weight: 118.1 kg Body Mass Index (BMI) 43.3 Intake and Output for Last 24 Hours 12/29/17 12/30/17 12/31/17 23:59 23:59 23:59 Intake Total 5420 / 5420 1420 / 1420 Balance 5420 / 5420 1420 / 1420 Laboratory Results 12/30/17 07:38: Vitamin B12 625 12/30/17 13:55: Troponin I < 0.02 12/31/17 05:25: WBC 7.8, RBC 3.11 L, Hgb 9.0 L, Hct 27.8 L, MCV 89.4, MCH 28.9, MCHC 32.4, RDW 14.1, RDW Differential 45.8 H, Plt Count 203, MPV 9.4, Immature Gran % (Auto) 0.400, Neut % (Auto) 69.4, Lymph % (Auto) 20.1, [place] % (Auto) 9.2 , Eos % (Auto) 0.6, Baso % (Auto) 0.3, Absolute Neuts (auto) 5.4, Absolute Lymphs (auto) 1.57, Total Counted Not Reportable 12/31/17 05:25: Sodium 137, Potassium 3.4 L, Chloride 101, Carbon Dioxide 28.0, Anion Gap 8, BUN 14, Creatinine 1.10 H, Estim Creat Clear Calc 50.77, Est GFR ( MDRD) Af Amer 66, Est GFR (MDRD) Non-Af 54 L, BUN/Creatinine Ratio 12.7, Glucose 133 H, Calcium 9.4 Current Medications Acetaminophen (Tylenol) 650 mg PO Q6H PRN PRN PRN Reason: pain/fever Last Admin: 12/29/17 17:40 Dose: 650 mg Albuterol Sulfate (Ventolin Aerosols) 2.5 mg INHALATION Q2H PRN PRN PRN Reason: SHORTNESS OF BREATH Last Admin: 12/30/17 17:29 Dose: 2.5 mg Aspirin (Aspirin, Baby) 81 mg PO DAILY@0800 [facility] Last Admin: 12/31/17 08:46 Dose: 81 mg Atorvastatin Calcium (Lipitor) 40 mg PO QHS [facility] Last Admin: 12/30/17 22:10 Dose: 40 mg Bisacodyl (Dulcolax) 10 mg PO DAILY PRN PRN PRN Reason: Constipation Bisacodyl (Dulcolax) 10 mg RECTAL DAILY PRN PRN PRN Reason: Constipation Calcium/Vitamin D (Os-Jose 500mg + D) 1 tablet PO DAILY [facility] Last Admin: 12/31/17 10:13 Dose: 1 tablet Carvedilol (Coreg) 25 mg PO BID [facility] Last Admin: 12/31/17 10:13 Dose: 25 mg Clopidogrel Bisulfate (Plavix) 75 mg PO DAILY [facility] Last Admin: 12/31/17 10:13 Dose: 75 mg Dicyclomine HCl (Bentyl) 40 mg PO TID [facility] Last Admin: 12/31/17 06:04 Dose: 40 mg [facility] Last Admin: 12/31/17 08:46 Dose: 325 mg [facility] ([facility]in) [facility] Last Admin: 12/31/17 08:47 Dose: 800 mg Gabapentin (Neurontin) 600 mg PO QHS [facility] Last Admin: 12/30/17 22:09 Dose: 600 mg Gabapentin (Neurontin) 400 mg PO QHS [facility] Last Admin: 12/30/17 22:08 Dose: 400 mg Heparin Sodium (Porcine) (Heparin Na) 5,000 unit SC Q8 [facility] Last Admin: 12/31/17 06:04 Dose: 5,000 u Hydralazine HCl (Apresoline) 10 mg IV Q4H PRN PRN PRN Reason: for SBP >180 Last Admin: 12/30/17 22:19 Dose: 10 mg Ketoconazole (Nizoral) 1 applic TOPICAL BID [facility] PRN Reason: Protocol Last Admin: 12/31/17 10:12 Dose: 1 applicatio Levothyroxine Sodium (Synthroid) 88 mcg PO DAILY@0600 [facility] Last Admin: 12/31/17 06:05 Dose: 88 mcg Linagliptin (Tradjenta) 5 mg PO DAILY [facility] Last Admin: 12/31/17 10:15 Dose: 5 mg Lorazepam (Ativan) 0.5 mg PO BID PRN PRN Reason: ANXIETY Last Admin: 12/30/17 19:45 Dose: 0.5 mg Losartan Potassium (Cozaar) 50 mg PO DAILY [facility] Last Admin: 12/31/17 10:13 Dose: 50 mg Magnesium Hydroxide (Milk Of Magnesia) 30 ml PO DAILY PRN PRN Reason: Constipation Nutritional Formula (Lactose Free) (Glucerna Shake) 120 ml PO 4X/DAY [facility] Last Admin: 12/31/17 10:12 Dose: Not Given Oxycodone HCl (Oxyir) 5 mg PO Q6H PRN PRN PRN Reason: SEVERE PAIN (6-10/10) Last Admin: 12/31/17 06:04 Dose: 5 mg Pantoprazole Sodium (Protonix) 40 mg PO BID [facility] Last Admin: 12/31/17 10:14 Dose: 40 mg Senna (Senokot) 2 tablet PO QHS [facility] Last Admin: 12/30/17 22:09 Dose: 2 tablet Sertraline HCl (Zoloft) 50 mg PO DAILY [facility] Last Admin: 12/31/17 10:15 Dose: 50 mg Tizanidine HCl (Zanaflex) 4 mg PO TID [facility] Last Admin: 12/31/17 06:03 Dose: 4 mg Venlafaxine HCl (Effexor Xr) 150 mg PO QHS [facility] Last Admin: 12/30/17 22:10 Dose: 150 mg Assessment/Plan Active and Suspected Problems Hypotension (Acute) ARF (acute renal failure) (Acute) Patient is a 57-year-old lady resident at the alf facility brought in with hypotension. Patient was found to be in acute kidney injury admitted to regular nursing floor for subsequent management 1. Acute kidney injury attributed to prerenal azotemia: Admitted to a regular nursing floor managed with IV fluids with resolution 2. Hypovolemia attributed to patient antihypertensive medications held on admission with plans to reintroduce slowly 3. Anemia secondary to anemia of chronic disorder monitoring H&H patient did not meet criteria for blood transfusion 4. Diabetes mellitus type 2 with complications including peripheral neuropathy : Did continue with home regimen in addition to Accu-Cheks before meals and at bedtime with sliding scale coverage 5. Diabetic neuropathy patient is on Neurontin 6. Obesity with BMI of 43.3 lifestyle modification advised 7. Dyslipidemia-patient is on statin therapy, continued at home dose 8. CAD per history currently stable 9. Hypothyroidism-patient is on levothyroxine home dose continued 10. Depression with anxiety 11. History of partial colectomy on account of recurrent diverticulitis 12. DVT prophylaxis; [place] [facility] Code Visit Inpatient E&M: 02657 Subs Hosp L2
--- NOTE | 2017-12-31 11:36 | CASEMGMT ---
Patient is ready for d/c. However, we need insurance authorization before she can return to [facility]. SW faxed information to [facility] and asked them to start the pre-cert process. Plan: d/c back to [facility] when pre-cert obtained. Zulema GONGORA MSW
[2017-12-31 14:01] VITALS: BP 125/70; PULSE 83; RESP 18; TEMP 36.7; O2SAT 96
--- NOTE | 2017-12-31 15:18 | NURSING ---
wound photo: left buttock
--- NOTE | 2017-12-31 15:18 | NURSING ---
wound photo: left lateral thigh
[2017-12-31 19:59] VITALS: BP 188/89; PULSE 99; RESP 18; TEMP 37.2; O2SAT 96
[2017-12-31] MEDS: Gabapentin 600 MG Tablet PO (21:58)
[2017-12-31] MEDS: Atorvastatin Calcium 40 MG Tablet PO (21:59)
[2017-12-31] MEDS: Venlafaxine XR 75 MG Capsule 150 MG PO (22:00)
[2017-12-31] MEDS: Senna Tablet 2 TABLET PO (22:00)
[2017-12-31] MEDS: Gabapentin 400 MG Capsule PO (22:01)
[2018-01-01 02:00] VITALS: BP 126/51; PULSE 84; RESP 16; TEMP 37.1; O2SAT 93
[2018-01-01] MEDS: Dicyclomine 10 MG Capsule 40 MG PO ×3 (05:32→22:01)
[2018-01-01] MEDS: tiZANidine HCl 2 MG Tablet 4 MG PO ×3 (05:34→22:00)
[2018-01-01] MEDS: Levothyroxine 88 MCG Tablet PO (05:37)
[2018-01-01 08:05] VITALS: O2SAT 96
[2018-01-01 08:13] VITALS: BP 130/77; PULSE 72; RESP 18; TEMP 36.6; O2SAT 94
[2018-01-01] MEDS: Gabapentin 800 MG Tablet PO ×2 (08:13→17:06)
[2018-01-01] MEDS: Ferrous Sulfate 325 MG Tablet PO ×2 (08:13→17:07)
[2018-01-01] MEDS: Aspirin 81 MG TAB.CHEW PO (08:13)
[2018-01-01] MEDS: Carvedilol 12.5 MG Tablet 25 MG PO ×2 (10:22→22:01)
[2018-01-01] MEDS: Ketoconazole Cream 1 APPLIC TOPICAL ×2 (10:23→22:01)
[2018-01-01] MEDS: Losartan Potassium 50 MG Tablet PO (10:23)
[2018-01-01] MEDS: Pantoprazole Sodium 40 MG Tablet PO ×2 (10:24→22:01)
[2018-01-01] MEDS: Sertraline 50 MG Tablet PO (10:24)
[2018-01-01] MEDS: Calcium Carb/Vitamin D 1 TABLET Tablet PO (10:24)
[2018-01-01] MEDS: LINAGLIPTIN 5 MG TABLET PO (10:24)
[2018-01-01] MEDS: Clopidogrel Bisulfate 75 MG Tablet PO (10:25)
--- NOTE | 2018-01-01 11:31 | PCM.TXEXTCAR ---
- Diet 12/28/17 22:55 Diet: Cardiac/Low Cholesterol Food consistency:: Regular Liquid Consistency:: Regular/Thin - Routine Orders/Code Status Code Status: DNRCC - Wound(s) Left Posterior Thigh Wound Type: Abrasion Dressing Change: optifoam Left Buttock Wound Type: shearing? abrasion Dressing Change: hydrocolloid Back of Neck Wound Type: ?abrasion Back of Head Wound Type: ?abrasion - Therapies Physical Therapy: Eval and Treat Occupational Therapy: Eval and Treat Speech Therapy: Eval and Treat - Allergies/Procedures Done in Hospital Allergies/Adverse Reactions: Allergies adhesive Allergy (Verified 12/28/17 16:35) Unknown amlodipine [From Norvasc] Allergy (Verified 12/28/17 23:55) Other hydromorphone HCl [From Dilaudid] Allergy (Verified 12/28/17 16:35) Itching sulfamethoxazole [From Bactrim] Allergy (Verified 12/28/17 16:35) Unknown trimethoprim [From Bactrim] Allergy (Verified 12/28/17 16:35) Unknown - Type of Care/Length of Stay Estimated LOS: More Than 30 Days Type of Care Needed: Skilled Rehab Potential: Fair Prognosis: Fair - Additional Orders/Day of Discharge Day of Discharge: 01/01/18 - Dietary and Speech Recommendations Dietitian Recommendations/Changes: Suggest diet change to 1800 calorie, caarbohydrate-controlled, cardiac, no gastric stimulant, low residue. Consider Rich 1 packet BID for skin integrity. Will d/c Glucerna shake on medpass as PO improved & BMI 43.3. - Follow Up Care Primary Care Physician: Brandon Torres DO [Primary Care Provider] -
--- NOTE | 2018-01-01 11:34 | PCM.PN.HOSP ---
Subjective: Patient seen back to baseline. Awaiting insurance presented prior to transfer back to [facility] Objective: GENERAL: Flat Affect HEENT: Clear conjunctiva, NECK; supple, normal thyroid, CHEST: Diminished to auscultation bilaterally, HEART: Regular S1 S2, no audible murmurs ABDOMEN: soft, normoactive bowel sounds, RECTAL: deferred EXTREMITIES: No edema, no clubbing, no cyanosis. 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 SKIN: No rash Vitals/I&O's: Vital Signs Temp Pulse Resp BP Pulse Ox 97.9 F 72 18 130/77 H 94 01/01/18 08:13 01/01/18 08:13 01/01/18 08:13 01/01/18 08:13 01/01/18 08:13 Oxygen Flow Rate 2 Oxygen Delivery Method Room Air Weight: 118.1 kg Body Mass Index (BMI) 43.3 Intake and Output for Last 24 Hours 12/30/17 12/31/17 01/01/18 23:59 23:59 23:59 Intake Total 1420 / 1420 840 / 840 Balance 1420 / 1420 840 / 840 Current Medications Acetaminophen (Tylenol) 650 mg PO Q6H PRN PRN PRN Reason: pain/fever Last Admin: 12/29/17 17:40 Dose: 650 mg Albuterol Sulfate (Ventolin Aerosols) 2.5 mg INHALATION Q2H PRN PRN PRN Reason: SHORTNESS OF BREATH Last Admin: 12/30/17 17:29 Dose: 2.5 mg Aspirin (Aspirin, Baby) 81 mg PO DAILY@0800 [facility] Last Admin: 01/01/18 08:13 Dose: 81 mg Atorvastatin Calcium (Lipitor) 40 mg PO QHS [facility] Last Admin: 12/31/17 21:59 Dose: 40 mg Bisacodyl (Dulcolax) 10 mg PO DAILY PRN PRN PRN Reason: Constipation Bisacodyl (Dulcolax) 10 mg RECTAL DAILY PRN PRN PRN Reason: Constipation Calcium/Vitamin D (Os-Jose 500mg + D) 1 tablet PO DAILY [facility] Last Admin: 01/01/18 10:24 Dose: 1 tablet Carvedilol (Coreg) 25 mg PO BID [facility] Last Admin: 01/01/18 10:22 Dose: 25 mg Clopidogrel Bisulfate (Plavix) 75 mg PO DAILY [facility] Last Admin: 01/01/18 10:25 Dose: 75 mg Dicyclomine HCl (Bentyl) 40 mg PO TID [facility] Last Admin: 01/01/18 05:32 Dose: 40 mg [facility] Last Admin: 01/01/18 08:13 Dose: 325 mg [facility]in) [facility] Last Admin: 01/01/18 08:13 Dose: 800 mg Gabapentin (Neurontin) 600 mg PO QHS [facility] Last Admin: 12/31/17 21:58 Dose: 600 mg Gabapentin (Neurontin) 400 mg PO QHS [facility] Last Admin: 12/31/17 22:01 Dose: 400 mg Heparin Sodium (Porcine) (Heparin Na) 5,000 unit SC Q8 [facility] Last Admin: 01/01/18 05:30 Dose: 5,000 u Hydralazine HCl (Apresoline) 10 mg IV Q4H PRN PRN PRN Reason: for SBP >180 Last Admin: 12/30/17 22:19 Dose: 10 mg Ketoconazole (Nizoral) 1 applic TOPICAL BID [facility] PRN Reason: Protocol Last Admin: 01/01/18 10:23 Dose: 1 applicatio Levothyroxine Sodium (Synthroid) 88 mcg PO DAILY@0600 [facility] Last Admin: 01/01/18 05:37 Dose: 88 mcg Linagliptin (Tradjenta) 5 mg PO DAILY [facility] Last Admin: 01/01/18 10:24 Dose: 5 mg Lorazepam (Ativan) 0.5 mg PO BID PRN PRN Reason: ANXIETY Last Admin: 12/30/17 19:45 Dose: 0.5 mg Losartan Potassium (Cozaar) 50 mg PO DAILY [facility] Last Admin: 01/01/18 10:23 Dose: 50 mg Magnesium Hydroxide (Milk Of Magnesia) 30 ml PO DAILY PRN PRN Reason: Constipation Oxycodone HCl (Oxyir) 5 mg PO Q6H PRN PRN PRN Reason: SEVERE PAIN (6-10/10) Last Admin: 12/31/17 20:12 Dose: 5 mg Pantoprazole Sodium (Protonix) 40 mg PO BID [facility] Last Admin: 01/01/18 10:24 Dose: 40 mg Senna (Senokot) 2 tablet PO QHS [facility] Last Admin: 12/31/17 22:00 Dose: 2 tablet Sertraline HCl (Zoloft) 50 mg PO DAILY [facility] Last Admin: 01/01/18 10:24 Dose: 50 mg Tizanidine HCl (Zanaflex) 4 mg PO TID [facility] Last Admin: 01/01/18 05:34 Dose: 4 mg Venlafaxine HCl (Effexor Xr) 150 mg PO QHS [facility] Last Admin: 12/31/17 22:00 Dose: 150 mg Assessment/Plan Patient is a 57-year-old lady resident at the [facility] facility brought in with hypotension. Patient was found to be in acute kidney injury admitted to regular nursing floor for subsequent management 1. Acute kidney injury attributed to prerenal azotemia: Admitted to a regular nursing floor managed with IV fluids with resolution 2. Hypovolemia attributed to patient antihypertensive medications held on admission with plans to reintroduce slowly 3. Anemia secondary to anemia of chronic disorder monitoring H&H patient did not meet criteria for blood transfusion 4. Diabetes mellitus type 2 with complications including peripheral neuropathy: Did continue with home regimen in addition to Accu-Cheks before meals and at bedtime with sliding scale coverage 5. Diabetic neuropathy patient is on Neurontin 6. Obesity with BMI of 43.3 lifestyle modification advised 7. Dyslipidemia-patient is on statin therapy, continued at home dose 8. CAD per history currently stable 9. Hypothyroidism-patient is on levothyroxine home dose continued 10. Depression with anxiety 11. History of partial colectomy on account of recurrent diverticulitis 12. DVT prophylaxis; [place] HEPARIN Code Visit Inpatient E&M: 21137 Subs Hosp L2
--- NOTE | 2018-01-01 11:41 | PCM.DC.SUM ---
Discharge Date and Diagnosis Date of Admission: 12/28/17 Date of Discharge: 01/02/18 - Primary Discharge Diagnosis Acute kidney injury - Secondary Discharge Diagnosis Chronic Problems Hyperlipemia (Chronic) Hypertension (Chronic) Coronary artery disease (Chronic) Diabetes mellitus, type 2 (Chronic) History of Clostridium difficile infection (Chronic) Hx of diverticulitis of colon (Chronic) Status post partial colectomy Obesity (Chronic) Chronic constipation with suspected IBS (Chronic) History of ischemic colitis (Chronic) Hospital Course and Treatment Imaging Results: Clinical Impression(s) from Imaging Studies Chest X-Ray 12/28/17 17:00 IMPRESSION: No acute intrathoracic process or interval change. Electronically Signed: Mikki Saez MD at 18:02 EST Tel , Service support , Brain CT 12/28/17 17:03 IMPRESSION: No acute interval changes. No evidence of hemorrhage. Electronically Signed: Mikki Saez MD at 17:59 EST Tel , Service support , Chest X-Ray 12/29/17 15:00 IMPRESSION: Pulmonary vascular congestion/mild interstitial edema. Electronically Signed: Mikki Saez MD at 19:53 EST Tel , Service support , Consultations 12/29/17 08:30 Consult: Onc/Wound/early years teacher Routine Comment: Left upper thigh & buttock wound present on admit Operations: None Summary of Care Provided: Patient is a 57-year-old lady resident at the nursing home facility brought in with hypotension. Patient was found to be in acute kidney injury admitted to regular nursing floor for subsequent management 1. Acute kidney injury attributed to prerenal azotemia: Admitted to a regular nursing floor managed with IV fluids with resolution 2. Hypovolemia attributed to patient antihypertensive medications held on admission with plans to reintroduce slowly 3. Anemia secondary to anemia of chronic disorder monitoring H&H patient did not meet criteria for blood transfusion 4. Diabetes mellitus type 2 with complications including peripheral neuropathy: Did continue with home regimen in addition to Accu-Cheks before meals and at bedtime with sliding scale coverage 5. Diabetic neuropathy patient is on Neurontin 6. Obesity with BMI of 43.3 lifestyle modification advised 7. Dyslipidemia-patient is on statin therapy, continued at home dose 8. CAD per history currently stable 9. Hypothyroidism-patient is on levothyroxine home dose continued 10. Depression with anxiety 11. History of partial colectomy on account of recurrent diverticulitis 12. DVT prophylaxis; [place] HEPARIN Discharge Diet: No Restrictions Home Medications: Medications to take at Discharge Carvedilol [Coreg (Beta Eleni)] 25 mg PO BID 09/11/13 Dicyclomine HCl [Bentyl] 20 mg PO TID 02/21/14 Pantoprazole Sodium [Protonix] 40 mg PO BID #60 tablet 07/02/14 Losartan Potassium [Cozaar] 50 mg PO DAILY 03/12/17 Calcium Citrate/Vitamin D3 [Calcium Citrate-Vit D3 Tablet] 1 each PO DAILY 11/17/17 Flaxseed Oil [[place]-3 Flaxseed Oil] 1,000 mg PO DAILY 11/17/17 Levothyroxine Sodium [Levoxyl] 88 mcg PO DAILY 11/17/17 Venlafaxine XR [Effexor Xr] 150 mg PO QHS 11/17/17 Aspirin [Aspirin, Baby] 81 mg PO DAILY@0800 #0 tab.chew 11/23/17 Ferrous Sulfate 325 mg PO BIDCM #30 tab 11/23/17 Clopidogrel Bisulfate [Plavix] 75 mg PO DAILY 11/29/17 Acetaminophen 650 mg PO Q6H PRN PRN 12/28/17 Atorvastatin Calcium [Lipitor] 40 mg PO DAILY 12/28/17 Bisacodyl [Dulcolax] 10 mg PO DAILY PRN 12/28/17 Gabapentin [Neurontin] 800 mg PO BID 12/28/17 Linagliptin [Tradjenta] 5 mg PO DAILY 12/28/17 Magnesium Hydroxide [Milk Of Magnesia] 30 ml PO DAILY PRN 12/28/17 Sertraline HCl [Zoloft] 50 mg PO DAILY 12/28/17 Gabapentin [Neurontin] 1,000 mg PO QHS 12/29/17 Ketoconazole [Nizoral Cream] 1 applic TOPICAL BID 12/29/17 Multivitamin [Multiple Vitamins] 1 each PO DAILY 12/29/17 Sennosides [Senna] 2 tab PO QHS 12/29/17 Tizanidine HCl [Zanaflex] 4 mg PO TID 12/29/17 Lorazepam [Ativan] 0.5 mg PO BID #14 tab 01/01/18 Following Prescrptions Were Given to Patient: Lorazepam [Ativan] 0.5 mg PO BID #14 tab Primary Care Physician: Brandon Torres DO [Primary Care Provider] - Disposition: [facility] facility Minutes spent on discharge:: 35 Patient Condition:: Stable Meaningful Use Info Meaningful Use Diagnoses (Choose all that apply): None applicable Code Visit Inpatient E&M: [id number] Disch Hosp
[2018-01-01] MEDS: oxyCODONE 5 MG Tablet PO ×2 (13:27→20:28)
[2018-01-01 14:13] VITALS: BP 134/77; PULSE 64; RESP 16; TEMP 37.1; O2SAT 95
--- NOTE | 2018-01-01 15:29 | CASEMGMT ---
[facility] called [place] to see if they have heard from insurance and they have not. Plan: Await pre-cert for return to [place]. Zulema GONGORA GOLF COACH
[2018-01-01 16:10] LABS: Folate, Hemolysate Test 581.6 ng/mL (Not Estab.); Folate, RBC (Hct) Test 24.3 % (34.0-46.6)
[2018-01-01 20:09] VITALS: BP 140/101; PULSE 90; RESP 16; TEMP 36.6; O2SAT 97
[2018-01-01 21:49] VITALS: BP 158/106; PULSE 93; RESP 16; TEMP 36.9; O2SAT 97
[2018-01-01] MEDS: Senna Tablet 2 TABLET PO (22:00)
[2018-01-01] MEDS: Venlafaxine XR 75 MG Capsule 150 MG PO (22:00)
[2018-01-01] MEDS: Gabapentin 600 MG Tablet PO (22:02)
[2018-01-01] MEDS: Atorvastatin Calcium 40 MG Tablet PO (22:02)
[2018-01-01] MEDS: Gabapentin 400 MG Capsule PO (22:03)
[2018-01-02 03:51] VITALS: BP 168/97; PULSE 88; RESP 14; TEMP 37.2; O2SAT 96
[2018-01-02] MEDS: oxyCODONE 5 MG Tablet PO ×2 (03:55→09:50)
[2018-01-02] MEDS: tiZANidine HCl 2 MG Tablet 4 MG PO ×2 (05:24→14:00)
[2018-01-02] MEDS: Dicyclomine 10 MG Capsule 40 MG PO ×2 (05:25→13:59)
[2018-01-02] MEDS: Levothyroxine 88 MCG Tablet PO (05:25)
[2018-01-02 07:40] VITALS: O2SAT 96
[2018-01-02 09:35] VITALS: BP 184/87; PULSE 87; RESP 16; TEMP 35.9; O2SAT 97
[2018-01-02] MEDS: Ferrous Sulfate 325 MG Tablet PO (09:44)
[2018-01-02] MEDS: Aspirin 81 MG TAB.CHEW PO (09:44)
[2018-01-02] MEDS: Carvedilol 12.5 MG Tablet 25 MG PO (09:44)
[2018-01-02] MEDS: Gabapentin 800 MG Tablet PO (09:44)
[2018-01-02] MEDS: Ketoconazole Cream 1 APPLIC TOPICAL (09:45)
[2018-01-02] MEDS: Losartan Potassium 50 MG Tablet PO (09:45)
[2018-01-02] MEDS: Calcium Carb/Vitamin D 1 TABLET Tablet PO (09:45)
[2018-01-02] MEDS: Pantoprazole Sodium 40 MG Tablet PO (09:45)
[2018-01-02] MEDS: LINAGLIPTIN 5 MG TABLET PO (09:46)
[2018-01-02] MEDS: Clopidogrel Bisulfate 75 MG Tablet PO (09:46)
[2018-01-02] MEDS: Sertraline 50 MG Tablet PO (09:46)
--- NOTE | 2018-01-02 10:52 | PCM.PN.HOSP ---
Subjective: Awaiting insurance presented prior to transfer to [facility] facility. Patient did complain of increasing pain in the right foot after twisting it while going to the bathroom. Did adjust her pain medication regimen Objective: GENERAL: Flat Affect HEENT: Clear conjunctiva, NECK; supple, normal thyroid, CHEST: Diminished to auscultation bilaterally, HEART: Regular S1 S2, no audible murmurs ABDOMEN: soft, normoactive bowel sounds, RECTAL: deferred EXTREMITIES: No edema, no clubbing, no cyanosis. 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 SKIN: No rash Vitals/I&O's: Vital Signs Temp Pulse Resp BP Pulse Ox 96.7 F L 87 16 184/87 H 97 01/02/18 09:35 01/02/18 09:35 01/02/18 09:35 01/02/18 09:35 01/02/18 09:35 Oxygen Flow Rate 2 Oxygen Delivery Method Room Air Weight: 118.1 kg Body Mass Index (BMI) 43.3 Intake and Output for Last 24 Hours 12/31/17 01/01/18 01/02/18 23:59 23:59 23:59 Intake Total 840 / 840 960 / 960 220 / 220 Balance 840 / 840 960 / 960 220 / 220 Current Medications Acetaminophen (Tylenol) 650 mg PO Q6H PRN PRN PRN Reason: pain/fever Last Admin: 12/29/17 17:40 Dose: 650 mg Albuterol Sulfate (Ventolin Aerosols) 2.5 mg INHALATION Q2H PRN PRN PRN Reason: SHORTNESS OF BREATH Last Admin: 12/30/17 17:29 Dose: 2.5 mg Aspirin (Aspirin, Baby) 81 mg PO DAILY@0800 [facility] Last Admin: 01/02/18 09:44 Dose: 81 mg Atorvastatin Calcium (Lipitor) 40 mg PO QHS [facility] Last Admin: 01/01/18 22:02 Dose: 40 mg Bisacodyl (Dulcolax) 10 mg PO DAILY PRN PRN PRN Reason: Constipation Bisacodyl (Dulcolax) 10 mg RECTAL DAILY PRN PRN PRN Reason: Constipation Calcium/Vitamin D (Os-Jose 500mg + D) 1 tablet PO DAILY [facility] Last Admin: 01/02/18 09:45 Dose: 1 tablet Carvedilol (Coreg) 25 mg PO BID [facility] Last Admin: 01/02/18 09:44 Dose: 25 mg Clopidogrel Bisulfate (Plavix) 75 mg PO DAILY [facility] Last Admin: 01/02/18 09:46 Dose: 75 mg Dicyclomine HCl (Bentyl) 40 mg PO TID [facility] Last Admin: 01/02/18 05:25 Dose: 40 mg [facility] Last Admin: 01/02/18 09:44 Dose: 325 mg [facility]ap[facility]in) [facility] Last Admin: 01/02/18 09:44 Dose: 800 mg Gabapentin (Neurontin) 600 mg PO QHS [facility] Last Admin: 01/01/18 22:02 Dose: 600 mg Gabapentin (Neurontin) 400 mg PO QHS [facility] Last Admin: 01/01/18 22:03 Dose: 400 mg Heparin Sodium (Porcine) (Heparin Na) 5,000 unit SC Q8 [facility] Last Admin: 01/02/18 05:25 Dose: 5,000 u Hydralazine HCl (Apresoline) 10 mg IV Q4H PRN PRN PRN Reason: for SBP >180 Last Admin: 12/30/17 22:19 Dose: 10 mg Ketoconazole (Nizoral) 1 applic TOPICAL BID [facility] PRN Reason: Protocol Last Admin: 01/02/18 09:45 Dose: 1 applicatio Levothyroxine Sodium (Synthroid) 88 mcg PO DAILY@0600 [facility] Last Admin: 01/02/18 05:25 Dose: 88 mcg Linagliptin (Tradjenta) 5 mg PO DAILY [facility] Last Admin: 01/02/18 09:46 Dose: 5 mg Lorazepam (Ativan) 0.5 mg PO BID PRN PRN Reason: ANXIETY Last Admin: 12/30/17 19:45 Dose: 0.5 mg Losartan Potassium (Cozaar) 50 mg PO DAILY [facility] Last Admin: 01/02/18 09:45 Dose: 50 mg Magnesium Hydroxide (Milk Of Magnesia) 30 ml PO DAILY PRN PRN Reason: Constipation Oxycodone HCl (Oxyir) 5 mg PO Q6H PRN PRN PRN Reason: SEVERE PAIN (6-10/10) Last Admin: 01/02/18 09:50 Dose: 5 mg Pantoprazole Sodium (Protonix) 40 mg PO BID [facility] Last Admin: 01/02/18 09:45 Dose: 40 mg Senna (Senokot) 2 tablet PO QHS [facility] Last Admin: 01/01/18 22:00 Dose: 2 tablet Sertraline HCl (Zoloft) 50 mg PO DAILY [facility] Last Admin: 01/02/18 09:46 Dose: 50 mg Tizanidine HCl (Zanaflex) 4 mg PO TID [facility] Last Admin: 01/02/18 05:24 Dose: 4 mg Venlafaxine HCl (Effexor Xr) 150 mg PO QHS [facility] Last Admin: 01/01/18 22:00 Dose: 150 mg Assessment/Plan Patient is a 57-year-old lady resident at the [facility] facility brought in with hypotension. Patient was found to be in acute kidney injury admitted to regular nursing floor for subsequent management 1. Acute kidney injury attributed to prerenal azotemia: Admitted to a regular nursing floor managed with IV fluids with resolution 2. Hypovolemia attributed to patient antihypertensive medications held on admission with plans to reintroduce slowly 3. Anemia secondary to anemia of chronic disorder monitoring H&H patient did not meet criteria for blood transfusion 4. Diabetes mellitus type 2 with complications including peripheral neuropathy: Did continue with home regimen in addition to Accu-Cheks before meals and at bedtime with sliding scale coverage 5. Diabetic neuropathy patient is on Neurontin 6. Obesity with BMI of 43.3 lifestyle modification advised 7. Dyslipidemia-patient is on statin therapy, continued at home dose 8. CAD per history currently stable 9. Hypothyroidism-patient is on levothyroxine home dose continued 10. Depression with anxiety 11. History of partial colectomy on account of recurrent diverticulitis 12. DVT prophylaxis; SC HEPARIN Code Visit Inpatient E&M: 99877 Subs Hosp L2
[2018-01-02 11:55] LABS: Folates, RBC Test 2393 ng/mL (>498)
[2018-01-02 12:04] VITALS: BP 182/91; PULSE 81; RESP 16; TEMP 36.8; O2SAT 98
[2018-01-02 12:09] VITALS: PULSE 87
[2018-01-02] MEDS: oxyCODONE 5 MG Tablet 10 MG PO (12:09)
--- NOTE | 2018-01-02 12:30 | CASEMGMT ---
CECE called [facility] and spoke with Jadyn. They have not heard from insurance yet. CECE spoke with patient and let her know we are waiting on insurance. She said she keeps getting phone calls from the hospital stating she owes money. CECE told her will try and find out more information. CECE called Delma in [employer] and left her a voice mail. Zulema GONGORA MSW
--- NOTE | 2018-01-02 13:29 | NURSING ---
Report called to Lázaro Corbin.
--- NOTE | 2018-01-02 13:40 | CASEMGMT ---
Received insurance authorization for patient to go back to [place]. Faxed orders to [place]. CECE also faxed schedule II medication to [facility]. Called [facility] and arranged for patient to get picked up at via [employer] van. CECE notified RN, retail parts professional, patient, and Christiane at [place]. Plan: d/c back to [place] under skilled level of care. [facility] transported via [employer]. Zulema GONGORA MSW
[2018-01-02 14:40] VITALS: BP 156/80
== END 2018-01-02 15:43 | disposition skilled nursing facility (03) | DRG 641 ==
LOC: ED 20:42 → PCU 22:57
PROVIDERS: Admitting Provider Internal Medicine; Emergency Provider Emergency Medicine; Family Provider Student in an Organized Health Care Education/Training Program; PCP Student in an Organized Health Care Education/Training Program; Visit Provider Internal Medicine
DX: E86.0 Dehydration (principal); Z68.41 Body mass index [BMI] 40.0-44.9, adult; E11.40 Type 2 diabetes mellitus with diabetic neuropathy, unspecified; I95.9 Hypotension, unspecified; I25.10 Atherosclerotic heart disease of native coronary artery without angina pectoris; E03.9 Hypothyroidism, unspecified; E78.5 Hyperlipidemia, unspecified; E66.9 Obesity, unspecified; E86.1 Hypovolemia; Z87.891 Personal history of nicotine dependence; Z90.49 Acquired absence of other specified parts of digestive tract; Z79.84 Long term (current) use of oral hypoglycemic drugs; K58.1 Irritable bowel syndrome with constipation; I10 Essential (primary) hypertension; D63.8 Anemia in other chronic diseases classified elsewhere; F41.8 Other specified anxiety disorders; Z79.899 Other long term (current) drug therapy
CPT/HCPCS: 36415; 70450; 71045; 80048; 80053; 80307; 81001; 82274; 82607; 82728; 82747; 82962; 83540; 83550; 83605; 84443; 84484; 85014; 85025; 85027; 85610; 85730; 87040; 87086; 87804; 93005; 94640; 97110; 97116; 97161; 97166; 97530; 97802; 99285; J7030; A4216

== ENCOUNTER 2018-02-10 17:11 | Emergency (ER) | payer MEDICARE, SELFPAY ==
[2018-02-10] VITALS (10 sets, daily range): BP systolic 109–222; BP diastolic 72–139; PULSE 102–122; RESP 14–24; TEMP 36.8; O2SAT 95–100; BMI 38.9
--- NOTE | 2018-02-10 17:27 | RAD_ITS ---
STUDY: X-RAY CHEST REASON FOR EXAM: Female, 57 years old. INCREASED BP WITH HEADACHE SINCE YESTERDAY. DENIES N/V, CP. CVA IN 11/2017 TECHNIQUE: Single AP portable view of the chest. COMPARISON: December 29, 2017 FINDINGS: There is mild bibasilar atelectasis. There is no demonstrated pleural abnormality. Normal size heart. Normal mediastinum and jonathan. Normal visualized pulmonary arteries. Normal visualized aortic arch and descending thoracic aorta. Normal visualized thoracic spine. Normal visualized ribs, clavicles, and shoulders. There is no demonstrated abnormality of the visualized soft tissue structures of the upper abdomen. RAD/Chest 1 View (Portable) IMPRESSION: There is mild bibasilar atelectasis. Electronically Signed: Rebecca Call MD at 18:43 EDT , Service support ,
--- NOTE | 2018-02-10 17:29 | EKG12_ITS ---
Test Reason : HTN Blood Pressure : / mmHG Vent. Rate : 107 BPM Atrial Rate : 107 BPM P-R Int : 158 ms QRS Dur : 094 ms QT Int : 350 ms P-R-T Axes : 051 039 072 degrees QTc Int : 467 ms Sinus tachycardia Nonspecific ST abnormality Abnormal ECG Confirmed by PETRONA CASTRO, LUIS FERNANDO ([id number]), assistant production editor MEGHANN MILLER ([id number]) on 02/14/2018 2:01:11 PM Referred By: Keith Hassan Confirmed By:LUIS FERNANDO RUSS MD
[2018-02-10] MEDS: LORazepam 2 MG/ML Syringe 0.5 MG IV (17:42)
[2018-02-10] MEDS: fentaNYL 100 MCG/2 ML Ampul 50 MCG IV (17:44)
[2018-02-10] MEDS: hydrALAZINE 20 MG/ML Vial 10 MG IV (17:45)
[2018-02-10 17:50] LABS: Absolute Lymphocyte Count 2.61 X10^3/ul (0.83-4.51); Absolute Neutrophil Count 10.2 X10^3/uL (2.0-7.7); Basophil# 0.07 X10^3/uL; Basophil% 0.5 % (0-1); Eosinophil# 0.49 X10^3/uL; Eosinophils% 3.4 % (0-5); Hematocrit 37.2 % (37-47); Hemoglobin 12.2 g/dl (12.0-15.0); Lymphocyte # 2.61 X10^3/ul (4.0); Lymphocyte % 18.3 % (19-41); Mean Corp Hgb Conc 32.8 g/gl (32-36); Mean Corpuscular Hgb 29.3 pg (27.0-32.0); Mean Corpuscular Volume 89.4 fL (81-99); Mean Platelet Vol. 9.7 fl (6.2-12.0); Monocyte# 0.89 X10^3/uL; Monocyte% 6.3 % (0-10); Neutrophil # 10.16 X10^3/uL (2.7-7.7); Neutrophil % 71.4 % (47-70); Platelet Count 319 K/mm3 (150-450); RBC Distribution Width CV 15.3 % (11.6-14.6); RBC Distribution Width SD 49.4 fl (35.1-43.9); Red Blood Count 4.16 M/mm3 (4.2-5.4); White Blood Count 14.2 K/mm3 (4.4-11.0)
[2018-02-10 17:59] LABS: POSITIVE COUNT NO; POSITIVE DIFFERENTIAL NO; POSITIVE MORPHOLOGY NO
[2018-02-10 18:05] LABS: Anion Gap 10 (5-15); BUN 23 mg/dL (7-18); BUN/Creat Ratio 14.3 RATIO (10-20); Calcium,Total 10.1 mg/dL (8.5-10.1); Chloride 99 mmol/L (98-107); Creatinine, Serum 1.61 mg/dL (0.55-1.02); EST Glomerular Filtration Rate 35 mL/min (>60); Est Glom Filt Rate - Afr Amer 42 mL/min (>60); Estimated Creatinine Clearance 36.09 ml/min; Glucose 104 mg/dL (74-106); Potassium 4.2 mmol/L (3.5-5.1); Sodium Level 136 mmol/L (136-145)
--- NOTE | 2018-02-10 18:22 | ED.DCSUM_ITS ---
- ER Visit Summary Date of Service: 02/10/18 Chief Complaint: Hypertension History of Present Illness: The patient is a 57 F states that in November she states she was noticed with a stroke and later developed peripheral neuropathy of the legs. When I read the admission notes looks like the patient came in with pain in her legs and had an E. coli bacteremia and subsequently developed small infarcts in the brain of an unknown thrombolic source. Patient states that her pain in her feet and legs have not been managed adequately for her. She has been on Lyrica and she called on and they increased her Lyrica. She states that it is very painful for her. She believes that this is causing her blood pressure to be higher than normal. Since today she has had a headache. She denies chest pain or shortness of breath. Blood pressure readings have been 200/100 range. She is on Cozaar 50 mg once a day and Coreg 25 mg twice a day. The patient states that her blood pressure was high in October preceding the strokes. Physical Examination: 222/127 temperature 98.2 heart rate 118 respirations are 21 pulse ox 98%. Gen: Well-nourished well-developed Head: Normocephalic atraumatic Eyes: Perrl EOMI ENT: TMs clear no rhinorrhea moist mucous membranes Neck: Supple no lymphadenopathy no JVD nontender CVS: Tachycardic regular rate rhythm no murmurs normal S1-S2 Respiratory: No distress clear to auscultation bilaterally chest nontender Abdomen: Soft nontender nondistended normal bowel sounds no masses Back: Nontender Extremity: Nontender no edema Skin: Normal color no rash Neuro: alert orientated ?3 CN II-XII intact normal strength sensation reflexes gait cerebellar Psych: Very anxious Test Results: CBC with white count of 14.2 hemoglobin 12.2 platelets 319. Chemistry showed a BUN 23 with creatinine 1.61. Troponin is less than 0.02. EKG shows sinus rhythm at a rate of 107. Chest x-ray showed no acute disease. CTA of the chest was obtained and does not show an obvious PE. Emergency Department Course and Treatment: Patient received a dose of Ativan fentanyl and hydralazine. Her blood pressure came down significantly currently 152/85 at the time of this dictation. Patient overall feels better but she still has pain in her legs and feet. Believe this is what is causing her tachycardia given the above workup. I will treat the patient with low dose as needed Ativan at home as well as as needed oxycodone. I will write her as needed clonidine to treat her blood pressure if it becomes significantly elevated again. She has an appointment with her primary care physician in just a couple days. Patient is comfortable with her plan. Return if worsening. Impression: 1. Acute on chronic bilateral neuropathic pain 2. Hypertension established [id number] This note was generated with [employer] dictation software. It may contain incorrect words, spelling, and punctuation that were not noted in review of the chart prior to signing ED Disposition - Plan for ED Patient: Disposition: Home or Assisted Living Chief Complaint: Hypertension Instructions: ED Hypertension Conf Out Of Control Prescriptions: Oxycodone [Oxyfast] 10 mg PO Q6H PRN PRN 3 Days #12 ml PRN Reason: Pain Clonidine HCl 0.1 mg PO BID PRN PRN #7 tab PRN Reason: Blood Pressure Elevation Lorazepam [Ativan] 0.5 mg PO TID PRN PRN #10 tab PRN Reason: Anxiety Referrals: Brandon Torres DO [Primary Care Provider] - Keep Jhon appointment Additional Instructions: Increase your losartan to 100 mg daily Only use clonidine for systolic blood pressure readings greater than 200 or diastolic blood pressure readings greater than 110 Please discuss your pain and your blood pressure with your primary care physician at your appointment on Sunday
[2018-02-10 18:55] LABS: AST(SGOT) 33 U/L (15-37); Alanine Aminotransfer ALT/SGPT 43 U/L (13-56); Albumin, Serum 4.9 g/dL (3.2-5.0); Alkaline Phosphatase 75 U/L (45-117); Bilirubin, Direct 0.14 mg/dL (0.00-0.30); Globulin 3.7 g/dL (2.2-4.2); Protein, Total 8.6 g/dL (6.4-8.2)
[2018-02-10 19:02] LABS: International Normalized Ratio 1.1
[2018-02-10 19:03] LABS: Partial Thromboplast Time 30.4 Seconds (24.1-36.2)
[2018-02-10 19:10] LABS: D-Dimer Quantitative (DVT/PE) 1.38 FEU/ug/m (0.27-0.49)
--- NOTE | 2018-02-10 19:11 | CT_ITS ---
STUDY: CTA CHEST REASON FOR EXAM: Female, 57 years old. Chest pain. RADIATION DOSAGE (If Supplied By Facility): CTDIvol = ( 15.05 ) mGy, DLP = ( 678.86 ) mGycm TECHNIQUE: The examination was performed with the intravenous administration of 100ML ml of Isovue 370 contrast material. Post-processing of the angiographic images was performed, with multiplanar reformation and 3D reconstruction. Individualized dose optimization techniques were used for this CT. COMPARISON: None. FINDINGS: Normal enhancement of the main pulmonary artery and right and left pulmonary arteries. Normal enhancement of the bilateral peripheral pulmonary arteries. There is no demonstrated pulmonary embolism. Normal thoracic aorta and visualized great vessels. There is no demonstrated aortic dissection. Normal heart and pericardium. Normal mediastinum. Normal hilar regions. Normal visualized trachea and bronchi. The lungs are well expanded. Normal pulmonary parenchyma. Normal pleura. Normal chest wall structures. Normal osseous structures. Normal visualized upper abdomen. CT/CTA Chest W/WO Contrast IMPRESSION: 1. No evidence of pulmonary embolism or aortic dissection. No evidence of acute cardiothoracic process or focal consolidation. Electronically Signed: Danny Yost DO at 21:19 EDT , Service support ,
--- NOTE | 2018-02-10 19:13 | ED.RN ---
lab called with critical lab results. d-dimer 1.38. Dr. Hassan made aware. no new orders at this time
[2018-02-10 19:31] LABS: Lactic Acid 1.3 mmol/L (0.4-2.0)
[2018-02-10 19:53] LABS: Bacteria 0 SEEN /hpf (None Seen); Mucous, Urine 0 SEEN /hpf (<or=2+)
[2018-02-10 19:57] LABS: Color, Urine Yellow (Yellow); Glucose, Dipstick Normal (Normal); Ketone-Dipstick Negative (Negative); Leukocyte Esterase-Dipstick 500 /ul (Negative); Nitrite-Dipstick Negative (Negative); Occult Blood-Urine 10 /ul (Negative); Protein-Dipstick 15 mg/dl (Negative); Urine Bilirubin Dipstick Negative (Negative); Urine Clarity Sl. Cloudy (Clear); Urine Urobilinogen Normal (Normal)
[2018-02-10 20:04] LABS: Amorphous Sediment 1+ PHOS; Red Blood Cells-Urine 0-5 SEEN /hpf (0-5); Squamous Epithelial Cells - UA 5-10 SEEN /hpf (5-10); White Blood Cells 10-25 SEEN /hpf (0-5)
[2018-02-10] MEDS: LORazepam 0.5 MG Tablet PO ×2 (22:47→22:48)
[2018-02-10] MEDS: cloNIDine HCl 0.1 MG Tablet PO (22:47)
[2018-02-10] MEDS: oxyCODONE 5 MG Tablet 10 MG PO (22:48)
--- NOTE | 2018-02-10 23:50 | ED.RN ---
PT SENT HOME WITH THE FOLLOWING HOME PACKS: ATIVAN 0.5 MG (4 TABS). CATAPRES 0.1 MG (1 TAB). AND OXYIR 5 MG (4 TABS). REVIEWED INSTRUCTION FOR HOME USE. PT DENIES ANY QUESTIONS OR CONCERNS.
== END 2018-02-11 00:16 | disposition home or self-care (01) ==
PROVIDERS: Emergency Provider Emergency Medicine; Family Provider Student in an Organized Health Care Education/Training Program; PCP Student in an Organized Health Care Education/Training Program
DX: I10 Essential (primary) hypertension (principal); E11.42 Type 2 diabetes mellitus with diabetic polyneuropathy; Z86.73 Personal history of transient ischemic attack (TIA), and cerebral infarction without residual deficits; I25.10 Atherosclerotic heart disease of native coronary artery without angina pectoris; E78.00 Pure hypercholesterolemia, unspecified; Z87.19 Personal history of other diseases of the digestive system; Z86.19 Personal history of other infectious and parasitic diseases; E66.9 Obesity, unspecified; Z90.49 Acquired absence of other specified parts of digestive tract; Z79.82 Long term (current) use of aspirin; Z79.02 Long term (current) use of antithrombotics/antiplatelets; Z79.84 Long term (current) use of oral hypoglycemic drugs; Z79.899 Other long term (current) drug therapy; Z72.0 Tobacco use
CPT/HCPCS: 71045; 71275; 80048; 80076; 81001; 83605; 84484; 85025; 85379; 85610; 85730; 87040; 93005; 96374; 96375; 99285; Q9967; A4216

== ENCOUNTER 2018-07-12 17:08 | Emergency (ER) | payer MEDICARE, SELFPAY ==
[2018-07-12 17:09] VITALS: BP 109/72; PULSE 74; RESP 16; TEMP 36.3; O2SAT 99; BMI 37.4
--- NOTE | 2018-07-12 18:13 | ED.VISSUMM ---
- ER Visit Summary Date of Service: 07/12/18 Chief Complaint: Right leg pain History of Present Illness: The patient is a [address] Palafox and Dr. Torres. She reports that she has had 3 lumbar injections and the last was yesterday. She states that she did get some relief, but not a lot. States that she stressed out of bed today and got an electrical shock in her right leg. She states that she continues to have this burning sensation in her right calf. States that is 10 out of 10 at worst 9 out of 10 currently. Is worsened by nothing and relieved by nothing. Physical Examination: Vitals: Stable. Afebrile. General: A&O x 3. NAD. Cardiovascular exam: Regular rate and rhythm, no murmur, rub or gallop. Respiratory exam: Clear to auscultation bilaterally. No wheezes or stridor. Abdominal exam: Soft, nontender, nondistended, normal bowel sounds. No peritoneal signs. Back: Injection site is clean and dry. There is no erythema, warmth, or induration diffuse moderate tenderness to palpation over the lumbar spine and the paraspinous musculature in the lumbar region. No point tenderness. Negative straight leg bilaterally. Obvious atrophy to her right calf. She has decreased sensation to light touch throughout her entire right leg. She reports this is chronic. Extremity: No clubbing, cyanosis, or edema. Emergency Department Course and Treatment: An [facility] report was obtained which show she has had 12 prescriptions for opiates in the past year. Last being in April. I did discuss with her that getting a prescription for opiates may violate her pain contract. She understands this and wants this despite the fact that I told her I will give her a prescription for 10 oxycodone. Treatment Plan: Patient is given a dose of oxycodone here. She will be discharged prescription for 10 Percocet. Instructed to follow-up Dr. Palafox in 1-2 days if not improving. Return to the emergency department for any worsening symptoms. Disposition: To home in improved and stable condition. Impression: 1. Chronic back pain. 2. Right leg pain, acute on chronic. This note was generated with [employer] software. It may contain incorrect words, spelling, and punctuation that were not noted in review of the chart prior to signing ED Disposition - Plan for ED Patient: Disposition: Home or Assisted Living Chief Complaint: Lower Extremity Injury Instructions: ED Neuropathy Peripheral Prescriptions: Oxycodone HCl/Acetaminophen [Percocet 5/325] 1 tablet PO Q6H PRN PRN 3 Days #10 tablet PRN Reason: Pain Referrals: Brandon Torres DO [Primary Care Provider] - Vahe Palafox [NON-STAFF] - 3-5 Days if not improving
[2018-07-12] MEDS: Acetaminophen 325 MG Tablet 1000 MG PO (18:25)
[2018-07-12] MEDS: oxyCODONE 5 MG Tablet 10 MG PO (18:25)
[2018-07-12 18:26] VITALS: BP 110/80
== END 2018-07-12 18:27 | disposition home or self-care (01) ==
PROVIDERS: Emergency Provider Emergency Medicine; Family Provider Student in an Organized Health Care Education/Training Program; PCP Student in an Organized Health Care Education/Training Program
DX: M54.5 Low back pain (principal); M79.661 Pain in right lower leg; G89.29 Other chronic pain; E78.00 Pure hypercholesterolemia, unspecified; E11.22 Type 2 diabetes mellitus with diabetic chronic kidney disease; I12.9 Hypertensive chronic kidney disease with stage 1 through stage 4 chronic kidney disease, or unspecified chronic kidney disease; N18.9 Chronic kidney disease, unspecified; E11.40 Type 2 diabetes mellitus with diabetic neuropathy, unspecified; Z86.73 Personal history of transient ischemic attack (TIA), and cerebral infarction without residual deficits; Z87.19 Personal history of other diseases of the digestive system; Z90.49 Acquired absence of other specified parts of digestive tract; Z79.82 Long term (current) use of aspirin; Z79.84 Long term (current) use of oral hypoglycemic drugs; Z79.899 Other long term (current) drug therapy
CPT/HCPCS: 99283

== ENCOUNTER 2018-09-10 09:59 | Emergency (ER) | payer MEDICARE, SELFPAY ==
[2018-09-10] VITALS (9 sets, daily range): BP systolic 128–181; BP diastolic 65–99; PULSE 102–113; RESP 14–27; TEMP 37.1–38.2; O2SAT 95–100; BMI 38.1
--- NOTE | 2018-09-10 10:37 | ED.VISSUMM ---
- ER Visit Summary Date of Service: 09/10/18 Chief Complaint: Nausea and vomiting History of Present Illness: The patient is a 57 F is post lumbar surgery last week at [facility] in [place]. Patient states she did well. Was discharged on . Last evening felt achy all over. Feverish with a temperature of 100.3. She started having nausea and the nausea and had no dysuria. Bilateral flank pain. States her back is doing well. She has not noticed any discharge. No redness. She is also had a nonproductive cough. No chest pain. Physical Examination: Middle-aged female. Vital signs are stable. She does have a low-grade temperature 100.8. Pulse is 100% on room air. She does not look septic or toxic. H EENT exam mildly dry mucous membranes. Neck nontender no lymphadenopathy. Lungs clear to auscultation bilaterally. Heart tachycardia no murmur. Abdomen soft. Obese. Nondistended. She does have a tender left lower quadrant hernia. Feels like an incarcerated hernia at that site. There is also bruising at that site. Normal bowel sounds. No peritoneal signs. No obvious signs of obstruction.. Neurologically she is awake and alert. She is moving all 4 extremities. Back exam no significant tenderness. She has a well-healing lower lumbar spine surgery. Dry and clean. No redness or pus. Test Results: CBC shows a white count 8. Hemoglobin 9.5 with a baseline B and 9. No bands. Electrolytes show potassium 3.4. Normal gap of 13. Creatinine 1.25. UA normal. CT abdomen pelvis with IV contrast shows a incarcerated spigelian hernia with a questionable large bowel obstruction. No perforation. This was reviewed by me and read by the radiologist. Emergency Department Course and Treatment: Morphine and Zofran for pain and nausea. Treatment Plan: I spoke with Dr. Tj Scott who reviewed the patient's CAT scan results. Due to her pain and nausea and vomiting and her overall medical condition he reviewed her recent [facility] records he felt the patient she would be best served at a larger facility. I have already spoken with [facility] transfer line and are awaiting an accepting surgeon. Patient is currently resting comfortably. Disposition: [] Impression: Nausea and vomiting Abdominal pain secondary to incarcerated left lower quadrant spigelian hernia Rule out early large bowel obstruction Status post lumbar surgery well-healing. This note was generated with [employer] dictation software. It may contain incorrect words, spelling, and punctuation that were not noted in review of the chart prior to signing ED Disposition - Plan for ED Patient: Chief Complaint: Nausea/Vomiting Referrals: Brandon Torres DO [Primary Care Provider] -
--- NOTE | 2018-09-10 10:41 | ED.DCSUM_ITS ---
- ER Visit Summary Date of Service: 09/10/18 Chief Complaint: Nausea and vomiting History of Present Illness: The patient is a 57 F is post lumbar surgery last week at [facility] in [place]. Patient states she did well. Was discharged on . Last evening felt achy all over. Feverish with a temperature of 100.3. She started having nausea and the nausea and had no dysuria. Bilateral flank pain. States her back is doing well. She has not noticed any discharge. No redness. She is also had a nonproductive cough. No chest pain. Physical Examination: Middle-aged female. Vital signs are stable. She does have a low-grade temperature 100.8. Pulse is 100% on room air. She does not look septic or toxic. H EENT exam mildly dry mucous membranes. Neck nontender no lymphadenopathy. Lungs clear to auscultation bilaterally. Heart tachycardia no murmur. Abdomen soft. Obese. Nondistended. She does have a tender left lower quadrant hernia. Feels like an incarcerated hernia at that site. There is also bruising at that site. Normal bowel sounds. No peritoneal signs. No obvious signs of obstruction.. Neurologically she is awake and alert. She is moving all 4 extremities. Back exam no significant tenderness. She has a well- healing lower lumbar spine surgery. Dry and clean. No redness or pus. Test Results: CBC shows a white count 8. Hemoglobin 9.5 with a baseline B and 9. No bands. Electrolytes show potassium 3.4. Normal gap of 13. Creatinine 1.25. UA normal. CT abdomen pelvis with IV contrast shows a incarcerated spigelian hernia with a questionable large bowel obstruction. No perforation. This was reviewed by me and read by the radiologist. Emergency Department Course and Treatment: Morphine and Zofran for pain and nausea. Treatment Plan: I spoke with Dr. Tj Scott who reviewed the patient's CAT scan results. Due to her pain and nausea and vomiting and her overall medical condition he reviewed her recent [facility] records he felt the patient she would be best served at a larger facility. I have already spoken with [facility] transfer line and are awaiting an accepting surgeon. Patient is currently resting comfortably. Disposition: [] Impression: Nausea and vomiting Abdominal pain secondary to incarcerated left lower quadrant spigelian hernia Rule out early large bowel obstruction Status post lumbar surgery well-healing. This note was generated with [employer] dictation software. It may contain incorrect words, spelling, and punctuation that were not noted in review of the chart prior to signing ED Disposition - Plan for ED Patient: Chief Complaint: Nausea/Vomiting Referrals: Brandon Torres DO [Primary Care Provider] -
--- NOTE | 2018-09-10 10:45 | RAD_ITS ---
STUDY: X-RAY CHEST REASON FOR EXAM: Female, 57 years old. Fever and back pain. History of recent surgery. TECHNIQUE: Single AP portable view of the chest. COMPARISON: Comparison is made with prior study dated February 10, 2018. FINDINGS: EKG electrodes are seen. Mild elevation of the right hemidiaphragm. The lungs are clear. There is no demonstrated pleural abnormality. Normal size heart. Normal mediastinum and jonathan. Normal visualized pulmonary arteries. Normal visualized aortic arch and descending thoracic aorta. There are diffuse degenerative changes of the visualized thoracic spine. Normal visualized ribs, clavicles, and shoulders. There is no demonstrated abnormality of the visualized soft tissue structures of the upper abdomen. RAD/Chest 1 View (Portable) IMPRESSION: No acute abnormality is seen. Electronically Signed: John Arredondo MD at 11:14 EST Tel [phone], Service support ,
[2018-09-10 10:55] LABS: Absolute Lymphocyte Count 1.01 X10^3/ul (0.83-4.51); Absolute Neutrophil Count 6.9 X10^3/uL (2.0-7.7); Basophil# 0.02 X10^3/uL; Basophil% 0.2 % (0-1); Eosinophil# 0.05 X10^3/uL; Eosinophils% 0.6 % (0-5); Hematocrit 28.1 % (37-47); Hemoglobin 9.5 g/dl (12.0-15.0); Lymphocyte # 1.01 X10^3/ul (4.0); Lymphocyte % 11.7 % (19-41); Mean Corp Hgb Conc 33.8 g/gl (32-36); Mean Corpuscular Volume 88.6 fL (81-99); Mean Platelet Vol. 8.7 fl (6.2-12.0); Monocyte# 0.69 X10^3/uL; Neutrophil # 6.87 X10^3/uL (2.7-7.7); Neutrophil % 79.3 % (47-70); POSITIVE COUNT NO; POSITIVE DIFFERENTIAL NO; POSITIVE MORPHOLOGY NO; Platelet Count 293 K/mm3 (150-450); RBC Distribution Width CV 13.8 % (11.6-14.6); RBC Distribution Width SD 45.3 fl (35.1-43.9); Red Blood Count 3.17 M/mm3 (4.2-5.4); White Blood Count 8.7 K/mm3 (4.4-11.0)
[2018-09-10 11:07] LABS: Anion Gap 13 (5-15); BUN 10 mg/dL (7-18); Chloride 98 mmol/L (98-107); Creatinine, Serum 1.25 mg/dL (0.55-1.02); EST Glomerular Filtration Rate 47 mL/min (>60); Est Glom Filt Rate - Afr Amer 57 mL/min (>60); Estimated Creatinine Clearance 44.68 ml/min; Glucose 117 mg/dL (74-106); Potassium 3.4 mmol/L (3.5-5.1); Sodium Level 136 mmol/L (136-145)
[2018-09-10] MEDS: Ondansetron 4 MG/2 ML Vial IV ×2 (11:14→15:18)
[2018-09-10] MEDS: 0.9% Normal Saline 1,000 ML 1000 ML IV (11:14)
[2018-09-10] MEDS: Morphine 4 MG/ML Syringe IV ×3 (11:15→21:41)
--- NOTE | 2018-09-10 11:16 | ED.RN ---
BENJI IS PT'S CAREGIVER. PT REQUESTS ED CALL TO LET HER KNOW THAT PT IS IN ED AND PT WILL CALL WHEN SHE IS HOME AGAIN. BENJI'S PHONE [phone].
[2018-09-10 12:42] LABS: Bacteria 0 SEEN /hpf (None Seen); Mucous, Urine 0 SEEN /hpf (<or=2+); Red Blood Cells-Urine 0 SEEN /hpf (0-5); White Blood Cells 0 SEEN /hpf (0-5)
[2018-09-10 12:44] LABS: Color, Urine Yellow (Yellow); Glucose, Dipstick Normal (Normal); Ketone-Dipstick Negative (Negative); Leukocyte Esterase-Dipstick Negative /ul (Negative); Nitrite-Dipstick Negative (Negative); Occult Blood-Urine Negative /ul (Negative); Protein-Dipstick Negative (Negative); Urine Bilirubin Dipstick Negative (Negative); Urine Clarity Sl. Cloudy (Clear); Urine Urobilinogen Normal (Normal)
[2018-09-10 12:50] LABS: Squamous Epithelial Cells - UA 0-5 SEEN /hpf (5-10)
--- NOTE | 2018-09-10 15:06 | CT_ITS ---
STUDY: CT ABDOMEN AND PELVIS WITH CONTRAST REASON FOR EXAM: Female, 57 years old. Lower abdominal pain. RADIATION DOSAGE (If Supplied By Facility): CTDIvol = ( 14.74 ) mGy, DLP = ( 1024.48 ) mGycm TECHNIQUE: Transaxial images were obtained from the dome of the diaphragm to the symphysis pubis without oral contrast. 100 ml of Isovue 300 contrast was administered. Sagittal and coronal images were reconstructed. Individualized dose optimization techniques were used for this CT. COMPARISON: None. FINDINGS: The visualized lung bases are unremarkable. The visualized portions of the heart are within normal limits. Normal liver. There is non-visualization of the gallbladder, which may be secondary to either contraction or a prior cholecystectomy. Normal spleen. Normal pancreas. Normal bilateral adrenal glands. Normal right kidney. Normal left kidney. The aorta is normal in caliber with moderate atherosclerotic calcification. There is no free air or organized collection. There is a large left anterolateral pelvic wall spigelian hernia containing a short segment of descending colon. There is an abrupt transition within the hernia. There is pericolonic stranding and mild fluid. Findings are consistent with incarcerated hernia. There is a large stool burden within the hernia and in the proximal bowel, consistent with obstruction. Distal colon is normal in caliber to decompressed. There is no small bowel obstruction. Normal appendix. Normal urinary bladder. Normal abdominal wall. Normal osseous structures. CT/Abdomen/Pelvis W IV Cont ONLY IMPRESSION: 1. Large bowel obstruction at the level of the distal descending colon due to incarcerated spigelian hernia. No evidence of perforation. Electronically Signed: Cindy Barnes MD at 16:37 EST Tel , Service support ,
== END 2018-09-10 21:50 | disposition short-term general hospital (02) ==
PROVIDERS: Emergency Provider Emergency Medicine; Family Provider Student in an Organized Health Care Education/Training Program; PCP Student in an Organized Health Care Education/Training Program
DX: R11.2 Nausea with vomiting, unspecified (principal); R10.32 Left lower quadrant pain; K43.6 Other and unspecified ventral hernia with obstruction, without gangrene; Z98.890 Other specified postprocedural states; R05 Cough; R50.9 Fever, unspecified; E11.9 Type 2 diabetes mellitus without complications; I10 Essential (primary) hypertension; E78.00 Pure hypercholesterolemia, unspecified; I42.9 Cardiomyopathy, unspecified; Z86.73 Personal history of transient ischemic attack (TIA), and cerebral infarction without residual deficits; Z90.49 Acquired absence of other specified parts of digestive tract; Z79.4 Long term (current) use of insulin; Z79.02 Long term (current) use of antithrombotics/antiplatelets; Z79.899 Other long term (current) drug therapy
CPT/HCPCS: 71045; 74177; 80048; 81001; 85025; 96361; 96374; 96375; 96376; 99285; J7030; P9612; Q9967; A4216; J2405

== ENCOUNTER 2019-03-28 19:23 | Inpatient (IN) | payer MEDICARE, MEDICAID, SELFPAY ==
[2019-03-28 19:24] VITALS: BP 108/67; PULSE 90; RESP 18; TEMP 36.7; O2SAT 92; BMI 37.0
[2019-03-28 19:41] LABS: Mucous, Urine 0 SEEN /hpf (<or=2+)
--- NOTE | 2019-03-28 20:07 | ED.RN ---
URINE WAS COLLECTED IN TRIAGE.
[2019-03-28 20:41] LABS: Color, Urine Yellow (Yellow); Glucose, Dipstick Normal (Normal); Ketone-Dipstick Negative (Negative); Leukocyte Esterase-Dipstick 100 /ul (Negative); Nitrite-Dipstick Negative (Negative); Occult Blood-Urine 10 /ul (Negative); Protein-Dipstick 30 mg/dl (Negative); Specific Gravity, Urine 1.015 (1.002-1.030); Urine Bilirubin Dipstick Negative (Negative); Urine Clarity Sl. Cloudy (Clear); Urine Urobilinogen Normal (Normal)
--- NOTE | 2019-03-28 20:42 | CT_ITS ---
STUDY: CT ABDOMEN AND PELVIS WITHOUT CONTRAST REASON FOR EXAM: Female, 58 years old. Left lower quadrant pain RADIATION DOSAGE (If Supplied By Facility): CTDIvol = ( 23.87 ) mGy, DLP = ( 1228.58 ) mGycm TECHNIQUE: Transaxial images were obtained from the dome of the diaphragm to the symphysis pubis without oral contrast, and without intravenous contrast. Sagittal and coronal images were reconstructed. Individualized dose optimization techniques were used for this CT. COMPARISON: None. FINDINGS: The visualized lung bases are unremarkable. The visualized portions of the heart are within normal limits. Normal liver. Gallbladder not visualized consistent with prior cholecystectomy.. Normal spleen. Normal pancreas. Normal bilateral adrenal glands. Normal right kidney. Normal left kidney. Normal visualized stomach. Normal small intestine. Surgical changes status post rectosigmoid resection. Minor diverticular changes at the operative site without evidence for acute inflammation. There is mild concentric thickening of the youssef of the distal descending colon with stranding in the fat possibly representing mild focal inflammatory changes. The appendix is visualized and appears normal. Atherosclerotic changes of the aorta without evidence for aneurysm.. Normal inferior vena cava. Normal retroperitoneum. Normal urinary bladder. Status post anterior pelvic wall herniorrhaphy There is a thick-walled fluid collection seen within the left transverse rectus measuring 11.9 x 3.95 cm Tiny fat-containing periumbilical hernia . Lumbar spine demonstrates mild spondylosis. Grade 1 spondylolisthesis at L5-S1 postop change status post bilateral posterior fusion CT/Abdomen/Pelvis without Cont IMPRESSION: Postsurgical changes status post anterior pelvic wall herniorrhaphy. There is a large fluid collection within the left transverse rectus sheath most likely representing resorbing hematoma or seroma. There are no air bubbles seen to suggest presence of an abscess. There also appears to be some very mild stranding in the adjacent fat with mild thickening of the wall of the adjacent distal descending colon possibly postsurgical although cannot exclude focal inflammation. Clinical correlation recommended Other findings as above Electronically Signed: Nilay London MD at 21:53 EDT , Service support ,
[2019-03-28 20:45] LABS: Bacteria 1+ /hpf (None Seen); Red Blood Cells-Urine 0-5 SEEN /hpf (0-5); Squamous Epithelial Cells - UA 10-25 SEEN /hpf (5-10); White Blood Cells 0-5 SEEN /hpf (0-5)
[2019-03-28] MEDS: Morphine 4 MG/ML Syringe IV (21:07)
[2019-03-28] MEDS: 0.9% Normal Saline 1,000 ML 125 ML IV (21:07)
[2019-03-28] MEDS: Ondansetron 4 MG/2 ML Vial IV (21:07)
[2019-03-28 21:12] LABS: Absolute Lymphocyte Count 0.87 X10^3/ul (0.83-4.51); Absolute Neutrophil Count 6.1 X10^3/uL (2.0-7.7); Basophil# 0.03 X10^3/uL; Basophil% 0.4 % (0-1); Eosinophil# 0.37 X10^3/uL; Eosinophils% 4.7 % (0-5); Hematocrit 27.1 % (37-47); Hemoglobin 9.3 g/dl (12.0-15.0); Lymphocyte # 0.87 X10^3/ul (4.0); Lymphocyte % 11.2 % (19-41); Mean Corp Hgb Conc 34.3 g/gl (32-36); Mean Corpuscular Hgb 28.9 pg (27.0-32.0); Mean Corpuscular Volume 84.2 fL (81-99); Mean Platelet Vol. 9.2 fl (6.2-12.0); Monocyte# 0.43 X10^3/uL; Monocyte% 5.5 % (0-10); Neutrophil # 6.09 X10^3/uL (2.7-7.7); Neutrophil % 78.1 % (47-70); Platelet Count 182 K/mm3 (150-450); RBC Distribution Width CV 15.2 % (11.6-14.6); RBC Distribution Width SD 47.7 fl (35.1-43.9); Red Blood Count 3.22 M/mm3 (4.2-5.4); White Blood Count 7.8 K/mm3 (4.4-11.0)
[2019-03-28 21:13] LABS: POSITIVE COUNT NO; POSITIVE DIFFERENTIAL NO; POSITIVE MORPHOLOGY NO
[2019-03-28 21:23] VITALS: BP 110/78; PULSE 78; RESP 18; O2SAT 97
[2019-03-28 21:32] LABS: ALB/GLOB Ratio 0.9 RATIO (0.9-2.4); AST(SGOT) 31 U/L (15-37); Alanine Aminotransfer ALT/SGPT 24 U/L (13-56); Albumin, Serum 3.8 g/dL (3.2-5.0); Alkaline Phosphatase 91 U/L (45-117); Anion Gap 10 (5-15); BUN 51 mg/dL (7-18); BUN/Creat Ratio 20.4 RATIO (10-20); Calcium,Total 10.6 mg/dL (8.5-10.1); Chloride 96 mmol/L (98-107); EST Glomerular Filtration Rate 21 mL/min (>60); Est Glom Filt Rate - Afr Amer 25 mL/min (>60); Estimated Creatinine Clearance 22.07 ml/min; Globulin 4.1 g/dL (2.2-4.2); Glucose 118 mg/dL (74-106); Lipase 38 U/L (73-393); Protein, Total 7.9 g/dL (6.4-8.2); Sodium Level 129 mmol/L (136-145)
[2019-03-28 21:49] LABS: Lactic Acid 1.4 mmol/L (0.4-2.0)
--- NOTE | 2019-03-28 22:33 | ED.DCSUM_ITS ---
- ER Visit Summary Date of Service: 03/28/19 Chief Complaint: [Abdominal pain] History of Present Illness: The patient is a 58 F [presents the emergency department complaint of abdominal pain that started today. Patient states that initially she started with vomiting and diarrhea 3 days ago. Patient had f requent watery stools about every 20 minutes. Patient now complaining of a continuous pain to the left lower quadrant. Patient denies any fever. She denies any chills or sweats. Patient has had decreased urine output. Patient states that she was treated for urinary tract infection couple weeks ago. Patient also has had prior cholecystectomy as well as a partial colectomy due to diverticulitis. Patient had a strangulate hernia repair in August 2018. Patient also had back surgery in August 2018.] Physical Examination: [HEENT-PERRLA, EOMI. Cranial nerves II through XII grossly intact. TMs clear. Mucous membranes moist. No adenopathy. Cardiovascular-regular rate and rhythm without murmur or ectopy Lungs-clear to auscultation, chest wall stable without crepitus or subcu emphysema Abdomen-normoactive bowel sounds, soft. Patient has tenderness diffusely about the left lower quadrant with some guarding. There is no rebound, rigidity, or peritoneal signs. Extremities-intact ?4, normal range of motion, normal pulses, atraumatic] Test Results: [CBC with differential obtained showed a white count of 7.8, hemoglobin 9.3, hematocrit 27, platelets 182. Sodium was 129, potassium 4.0, chloride 96. Glucose 118. BUN 51 and creatinine 2.5. LFTs were normal. Lipase was 38. Urinalysis was normal. Lactate was 1.4. CT scan of the abdomen and pelvis showed a fluid collection in the left rectus abdominal muscle that is thought to be resorbing hematoma. Patient also had some stranding of the fat adjacent to the distal left colon. There is no evidence of bowel obstruction.] Emergency Department Course and Treatment: [Patient was medicated with morphine and Zofran and she received a liter normal same fluid bolus] Treatment Plan: [Admit for hydration and pain control.] Disposition: [Admit] Impression: [Gastroenteritis Abdominal pain Acute kidney injury Dehydration] This note was generated with [employer] dictation software. It may contain incorrect words, spelling, and punctuation that were not noted in review of the chart prior to signing ED Disposition - Plan for ED Patient: Referrals: Brandon Torres DO [Primary Care Provider] -
[2019-03-28 23:00] VITALS: BP 108/72; PULSE 78; RESP 16; O2SAT 97
--- NOTE | 2019-03-28 23:05 | PCM.HP.STD ---
Problem List (1) Left lower quadrant abdominal pain Status: Acute (2) ARF (acute renal failure) Status: Acute (3) Bacteremia due to Gram-negative bacteria Status: Resolved (4) Bilateral leg weakness Status: Chronic (5) Carotid artery stenosis Status: Chronic Qualifiers: Laterality: right Qualified Code(s): I65.21 - Occlusion and stenosis of right carotid artery (6) Hyperkalemia Status: Resolved (7) Hypotension Status: Resolved (8) Chronic constipation with suspected IBS Status: Chronic (9) Coronary artery disease Status: Chronic (10) Diabetes mellitus, type 2 Status: Chronic (11) History of Clostridium difficile infection Status: Chronic (12) History of ischemic colitis Status: Chronic (13) Hx of diverticulitis of colon Status: Chronic Comment: Status post partial colectomy (14) Hyperlipemia Status: Chronic (15) Hypertension Status: Chronic (16) Obesity Status: Chronic History of Present Illness Date of Admission: 03/28/19 Chief Complaint: Abdominal pain, nausea and vomiting and diarrhea The patient is a 58 year old F with history of spigelian hernia with laparotomy repair in September 2018 in [facility] and lumbar spine surgery a week ago [facility] came to ER with abdominal pain, nausea vomiting and diarrhea. Started with nausea, vomiting and diarrhea for about 3 days. Diarrhea 5-6, clear watery with no blood. Vomiting also clear. No hematemesis/hematochezia or melena. She denies fever or chills. Abdominal pain started today which got more persistent in the left lower quadrant. CT abdomen was done which shows mild circumferential thickening of distal descending colon with adjacent fat stranding, possible postsurgical or focal inflammation. She does not have leukocytosis, heart rate 90 but no tachypnea or hypoxia. Past Medical History Past Medical History (Chronic Problems): Chronic Problems Carotid artery stenosis (Chronic) Hyperlipemia (Chronic) Hypertension (Chronic) Coronary artery disease (Chronic) Diabetes mellitus, type 2 (Chronic) History of Clostridium difficile infection (Chronic) Hx of diverticulitis of colon (Chronic) Status post partial colectomy Obesity (Chronic) Chronic constipation with suspected IBS (Chronic) History of ischemic colitis (Chronic) Bilateral leg weakness (Chronic) Allergies adhesive Allergy (Verified 03/28/19 19:27) Unknown amlodipine [From Norvasc] Allergy (Verified 03/28/19 19:27) Other hydromorphone HCl [From Dilaudid] Allergy (Verified 03/28/19 19:27) Itching sulfamethoxazole [From Bactrim] Allergy (Verified 03/28/19 19:27) Unknown trimethoprim [From Bactrim] Allergy (Verified 03/28/19 19:27) Unknown Home Medications: Ambulatory Orders Medication Instructions Recorded Carvedilol [Coreg (Beta Eleni)] 25 mg PO BID 09/11/13 Dicyclomine HCl [Bentyl] 20 mg PO TID 02/21/14 Pantoprazole Sodium [Protonix] 40 mg PO BID #60 tablet 07/02/14 Calcium Citrate/Vitamin D3 1 each PO DAILY 11/17/17 [Calcium Citrate-Vit D3 Tablet] Flaxseed Oil [[place]-3 Flaxseed Oil] 1,000 mg PO DAILY 11/17/17 Levothyroxine Sodium [Levoxyl] 88 mcg PO DAILY 11/17/17 Venlafaxine XR [Effexor Xr] 150 mg PO QHS 11/17/17 Clopidogrel Bisulfate [Plavix] 75 mg PO DAILY 11/29/17 Multivitamin [Multiple Vitamins] 1 each PO DAILY 12/29/17 Tizanidine HCl [Zanaflex] 4 mg PO TID 12/29/17 Rosuvastatin Calcium [Crestor] 20 mg PO QHS 02/10/18 Sitagliptin Phosphate [Januvia] 50 mg PO DAILY 02/10/18 Clonidine HCl 0.2 mg PO BID PRN PRN 03/28/19 Lisinopril 20 mg PO DAILY 03/28/19 Surgical History: cholecystectomy, total knee arthroplasty, tonsillectomy, - - partial colon resection due to diverticulosis. Psychiatric History: No pertinent psych hx CHORE TENDER History: No pertinent CHORE TENDER history Smoking Status: Former smoker - *Family History Paternal History Items: Heart Disease Maternal History Items: No pertinent history Review of Systems Constitutional: Reports: Anorexia. Denies: Chills, Fever, Weight Change HEENT: Denies: Head Aches, Sinus Congestion, Sinus Drainage Cardiovascular: Denies: Chest Pain, Palpitations Respiratory: Denies: Cough, Shortness of breath at rest, Sputum production Gastrointestinal: Reports: Abdominal Pain, Diarrhea, Nausea, Vomiting. Denies: Hematemesis, Hematochezia, Melena Genitourinary: Denies: Dysuria, Frequency, Hesitancy Musculoskeletal: Reports: Back Pain, Joint Pain. Denies: Joint Tenderness Skin: Denies: Rash, Wounds Neurological: Denies: Numbness, Tingling, Focal weakness Psychiatric: Denies: Anxiety, Depression, Homicidal Ideations, Suicidal Ideations Hematologic/ Lymphatic: Denies: Easy Bruising, Easy Bleeding VTE Information - Inpt Only VTE Present on Admission: No VTE Mechan Device Prophylaxis: SCD's Reason prophylaxis not ordered:: Medical Contraindication - Hematoma left rectus sheath Patient Problems: Active and Suspected Problems Left lower quadrant abdominal pain (Acute) - Physical Exam General: Alert, Oriented x3, Cooperative HEENT: Atraumatic, PERRLA, EOMI, Normocephalic Neck: Supple, No JVD, Negative Carotid Bruits Lungs: Clear to auscultation, Normal air movement, No rhonchi, No wheeze, No rales Cardiovascular: Regular rate, Regular Rhythm, Normal S1, Normal S2, No murmurs Abdomen: Bowel Sounds Present, Soft, Tender - Tenderness present in left lower quadrant. Transverse surgical scar of hernia repair present. Extremities: No edema, Capillary Refill Less than 3 Seconds Skin: No rashes, No breakdown Musculoskeletal: No Tenderness to Palpation of Joints or Extremities, Arthritic Changes Lymphatic: No Cervical, Supraclavicular, or Inguinal Adenopathy Neurological: Cranial nerves II-XII grossly intact, Deep Tendon Reflexes 2+/4 and Symmetrical, Neuro grossly intact Psych/Mental Status: Normal Affect, Appropriate Vital Signs Temp Pulse Resp BP Pulse Ox 98.0 F 78 18 110/78 97 03/28/19 19:24 03/28/19 21:23 03/28/19 21:23 03/28/19 21:23 03/28/19 21:23 Oxygen Delivery Method Room Air Weight: 223 lb Body Mass Index (BMI) 37.0 Finger Stick Blood Glucose 79 Laboratory Tests Past 24 Hrs 03/28/19 03/28/19 03/28/19 19:35 21:05 21:05 WBC 7.8 RBC 3.22 L Hgb 9.3 L Hct 27.1 L MCV 84.2 MCH 28.9 MCHC 34.3 RDW 15.2 H RDW Differential 47.7 H Plt Count 182 MPV 9.2 Immature Gran % (Auto) 0.100 Neut % (Auto) 78.1 H Lymph % (Auto) 11.2 L Dixon % (Auto) 5.5 Eos % (Auto) 4.7 Baso % (Auto) 0.4 Absolute Neuts (auto) 6.1 Absolute Lymphs (auto) 0.87 Total Counted Not Reportable Sodium 129 L Potassium 4.0 Chloride 96 L Carbon Dioxide 23.0 Anion Gap 10 BUN 51 H Creatinine 2.50 H Estim Creat Clear Calc 22.07 Est GFR (MDRD) Af Amer 25 L Est GFR (MDRD) Non-Af 21 L BUN/Creatinine Ratio 20.4 H Glucose 118 H Lactic Acid Calcium 10.6 H Total Bilirubin 0.60 AST 31 ALT 24 Alkaline Phosphatase 91 Total Protein 7.9 Albumin 3.8 Globulin 4.1 Albumin/Globulin Ratio 0.9 Lipase 38 L Urine Color Yellow Urine Clarity Sl. Cloudy Urine pH 6.0 Ur Specific [place] 1.015 Urine Protein 30 H Urine Glucose (UA) Normal Urine Ketones Negative Urine Occult Blood 10 H Urine Nitrite Negative Urine Bilirubin Negative Urine Urobilinogen Normal Ur Leukocyte Esterase 100 H Urine RBC 0-5 SEEN Urine WBC 0-5 SEEN Ur Squamous Epith Cells 10-25 SEEN Urine Bacteria 1+ Urine Mucus 0 SEEN 03/28/19 21:05 WBC RBC Hgb Hct MCV MCH MCHC RDW RDW Differential Plt Count MPV Immature Gran % (Auto) Neut % (Auto) Lymph % (Auto) Dixon % (Auto) Eos % (Auto) Baso % (Auto) Absolute Neuts (auto) Absolute Lymphs (auto) Total Counted Sodium Potassium Chloride Carbon Dioxide Anion Gap BUN Creatinine Estim Creat Clear Calc Est GFR (MDRD) Af Amer Est GFR (MDRD) Non-Af BUN/Creatinine Ratio Glucose Lactic Acid 1.4 Calcium Total Bilirubin AST ALT Alkaline Phosphatase Total Protein Albumin Globulin Albumin/Globulin Ratio Lipase Urine Color Urine Clarity Urine pH Ur Specific [place] Urine Protein Urine Glucose (UA) Urine Ketones Urine Occult Blood Urine Nitrite Urine Bilirubin Urine Urobilinogen Ur Leukocyte Esterase Urine RBC Urine WBC Ur Squamous Epith Cells Urine Bacteria Urine Mucus Assessment/Plan All Active Problems Left lower quadrant abdominal pain (Acute) Hypotension (Resolved) Bacteremia due to Gram-negative bacteria (Resolved) ARF (acute renal failure) (Acute) Hyperkalemia (Resolved) The patient is a 58 year old F with history of spigelian hernia with laparotomy repair in September 2018 in [facility] and lumbar spine surgery a week ago [facility] came to ER with abdominal pain, nausea vomiting and diarrhea. Started with nausea, vomiting and diarrhea for about 3 days. Diarrhea 5-6, clear watery with no blood. Vomiting also clear. No hematemesis/hematochezia or melena. She denies fever or chills. Abdominal pain started today which got more persistent in the left lower quadrant. CT abdomen was done which shows mild circumferential thickening of distal descending colon with adjacent fat stranding, possible postsurgical or focal inflammation. She does not have leukocytosis, heart rate 90 but no tachypnea or hypoxia. Lactic acid normal. 1. Left lower quadrant abdominal pain with nausea, vomiting and diarrhea possible secondary to acute gastroenteritis/scar tissue: Patient is being admitted to [facility] floor. CT abdomen also shows thick-walled fluid collection in left transverse rectus sheath measuring 11.9/3.9 cm, possible reabsorbing hematoma or seroma. There is reported concentric thickening of youssef of distal descending colon with stranding in the fat with possibility of mild focal inflammatory changes. IV fluid normal saline. Surgical consult for further opinion recommendation. Will hold off for starting antibiotic as colonic inflammation may be secondary to scar tissue and and there is no urgency to start absence of leukocytosis or SIRS criteria. Pain control. Entry pathology panel ordered. Stool for occult blood and leukocytes. Clear liquid diet Patient had partial colectomy secondary to recurrent diverticulitis. 2. Left transverse rectus sheath hematoma/seroma: As mentioned above. This may explain pain on the left lower quadrant but difficult to explain nausea vomiting and diarrhea. 3. Acute kidney injury on CKD stage III most likely prerenal with electrolyte abnormality: Patient was also admitted December 2017 for similar acute kidney injury. IV fluid normal saline. BMP shows BUN/creatinine 51/2.5 with baseline 10/1.25 in September 2018. Hypotonic hypovolemic hyponatremia. Sodium 129, chloride 96, bicarb 23. Anion gap 10. 4. Anemia secondary to anemia of chronic disorder: monitoring H&H patient did not meet criteria for blood transfusion, H&H 9.3/27.1. 5 Diabetes mellitus type 2 with complications including peripheral neuropathy: Accu-Chek before meals and at bedtime, with sliding scale Humalog coverage. Patient is on Neurontin 6. Obesity with BMI of 37.1 lifestyle modification advised 7. Dyslipidemia-patient is on statin therapy, continued at home dose 8. CAD: Currently stable 9. Hypothyroidism-patient is on levothyroxine home dose continued 10. Depression with anxiety 11. History of partial colectomy on account of recurrent diverticulitis DVT prophylaxis: Pharmacological prophylaxis contraindicated of possibility of rectal sheath hematoma. On bilateral SCDs Clinical Impression(s) from Imaging Studies Abdomen/Pelvis CT 03/28/19 20:42 IMPRESSION: Postsurgical changes status post anterior pelvic wall herniorrhaphy. There is a large fluid collection within the left transverse rectus sheath most likely representing resorbing hematoma or seroma. There are no air bubbles seen to suggest presence of an abscess. There also appears to be some very mild stranding in the adjacent fat with mild thickening of the wall of the adjacent distal descending colon possibly postsurgical although cannot exclude focal inflammation. Clinical correlation recommended Other findings as above Code Visit Inpatient E&M: 90851 Init Hosp L3
[2019-03-28 23:32] VITALS: BP 108/72
[2019-03-28 23:50] VITALS: BMI 38.2
[2019-03-28 23:53] VITALS: BP 117/50; PULSE 96; RESP 20; TEMP 37.7; O2SAT 97
[2019-03-29] VITALS (7 sets, daily range): BP systolic 81–164; BP diastolic 43–92; PULSE 77–110; RESP 16–18; TEMP 36.6–37.7; O2SAT 94–100
[2019-03-29 00:08] LABS: Magnesium 2.3 mg/dL (1.6-2.6)
[2019-03-29 00:16] LABS: Bedside Glucose 99 mg/dL (70-110)
[2019-03-29] MEDS: Morphine 2 MG/ML Syringe IV ×3 (00:50→23:25)
[2019-03-29] MEDS: 0.9% Normal Saline 1,000 ML 125 ML IV (04:04)
[2019-03-29] MEDS: hydrOXYzine PAM 25 MG Capsule PO (04:04)
[2019-03-29] MEDS: Levothyroxine 88 MCG Tablet PO (05:48)
[2019-03-29] MEDS: Dicyclomine 10 MG Capsule 20 MG PO ×3 (05:48→22:56)
[2019-03-29] MEDS: tiZANidine HCl 2 MG Tablet 4 MG PO ×3 (05:48→22:56)
[2019-03-29 06:41] LABS: Bedside Glucose 113 mg/dL (70-110)
[2019-03-29 07:12] LABS: Absolute Lymphocyte Count 1.35 X10^3/ul (0.83-4.51); Absolute Neutrophil Count 4.5 X10^3/uL (2.0-7.7); Basophil# 0.01 X10^3/uL; Basophil% 0.2 % (0-1); Eosinophil# 0.27 X10^3/uL; Eosinophils% 4.1 % (0-5); Hematocrit 25.2 % (37-47); Hemoglobin 8.5 g/dl (12.0-15.0); Lymphocyte # 1.35 X10^3/ul (4.0); Lymphocyte % 20.6 % (19-41); Mean Corp Hgb Conc 33.7 g/gl (32-36); Mean Corpuscular Hgb 28.6 pg (27.0-32.0); Mean Corpuscular Volume 84.8 fL (81-99); Mean Platelet Vol. 9.2 fl (6.2-12.0); Monocyte# 0.43 X10^3/uL; Monocyte% 6.6 % (0-10); Neutrophil # 4.47 X10^3/uL (2.7-7.7); Neutrophil % 68.3 % (47-70); Platelet Count 160 K/mm3 (150-450); RBC Distribution Width SD 47.2 fl (35.1-43.9); Red Blood Count 2.97 M/mm3 (4.2-5.4); White Blood Count 6.5 K/mm3 (4.4-11.0)
[2019-03-29 07:13] LABS: POSITIVE COUNT NO; POSITIVE DIFFERENTIAL NO; POSITIVE MORPHOLOGY NO
[2019-03-29 07:45] LABS: Anion Gap 9 (5-15); BUN 38 mg/dL (7-18); BUN/Creat Ratio 21.1 RATIO (10-20); Calcium,Total 9.9 mg/dL (8.5-10.1); Chloride 108 mmol/L (98-107); EST Glomerular Filtration Rate 31 mL/min (>60); Est Glom Filt Rate - Afr Amer 37 mL/min (>60); Estimated Creatinine Clearance 30.66 ml/min; Glucose 101 mg/dL (74-106); Potassium 3.5 mmol/L (3.5-5.1); Sodium Level 139 mmol/L (136-145); Thyroid Stim Hormone (TSH) 1.92 uIU/mL (0.358-3.74)
[2019-03-29] MEDS: Calcium Carb/Vitamin D 1 TABLET Tablet PO (08:36)
[2019-03-29] MEDS: Multivitamins,Therapeutic Tablet 1 TABLET PO (08:36)
[2019-03-29] MEDS: Clopidogrel Bisulfate 75 MG Tablet PO (09:56)
[2019-03-29] MEDS: DULoxetine Hcl 30 MG Capsule PO ×2 (09:56→22:56)
[2019-03-29] MEDS: Pantoprazole Sodium 40 MG Tablet PO ×2 (09:56→22:56)
[2019-03-29] MEDS: Ensure Clear 120 ML Liquid PO ×4 (09:56→22:56)
--- NOTE | 2019-03-29 10:55 | CM.UR ---
Addendum entered by Lynne Ren 03/29/19 11:05: [facility] for Jaye, her [facility] caseworker intake alerting her that this patient was admitted to the hospital. Matias Ren RN, CCM. Original Note: RN CM Assessment Met face to face with patient for initial transition planning/care coordination assessment. Introduced myself and my role. Verb understanding and agreement for assessment. Presentation: Vomiting & diarrhea x 3 days. Started with abd pain. Hx of diverticulitis. PCP: Brian Jackman Pharmacy: [facility] Insurance: [facility] Prescription Benefit: yes. affordable. Copay of $3.41 until meets spend down, then free. LNOK: sisterMadhuri Home: apartment, 1 floor, no steps to enter--small ramp instead. ADLs: Independent with personal care. Need assistance with plastic panel installer and meals. Transportation: Drives self short distances. has friend who will drive longer distances. DME: shower chair, straight cane, walker, wheelchair, rollator, grab bars, handheld shower. SNF/HHC: previous [facility]. Currently has [facility] 2x per week (-) for 3 hours each day. Helps with plastic panel installer and meals. For SNF she has been in [facility]. Does not want to go back to a SNF. Passport/waiver racecourse barrier attendant: Jaye [phone] Advance Directives: On file, Sister madhuri is DPOA. DC PLAN: Home, no needs anticipated at this time by patient or this CM. CM will remain available should any needs arise. Matias Ren RN, CCM.
[2019-03-29] MEDS: 0.9% Normal Saline 1,000 ML 150 ML IV ×2 (11:22→18:10)
[2019-03-29 11:36] LABS: Bedside Glucose 137 mg/dL (70-110)
--- NOTE | 2019-03-29 11:53 | PN_ITS ---
<Clarissa Rojas - Last Filed: 03/29/19 11:54> Patient Problems: Active and Suspected Problems Left lower quadrant abdominal pain (Acute) Subjective: Patient seen and examined. Denies further nausea, vomiting, diarrhea. Complains of significant left lower quadrant pain which is worse with movement. Blood pressure well this morning, receiving IV fluids. Denies lightheadedness/dizziness. - Physical Exam General: Alert, Oriented x3, Cooperative HEENT: Atraumatic, PERRLA, EOMI, Normocephalic Oral: Moist Mucosa Neck: Supple, No JVD, Negative Carotid Bruits Lungs: Clear to auscultation, Normal air movement Cardiovascular: Regular rate, Regular Rhythm, Normal S1, Normal S2, No murmurs Abdomen: Bowel Sounds Present, Soft, Non Tender, Non-Distended, Obese Extremities: No clubbing, No cyanosis, No edema, Capillary Refill Less than 3 Seconds Skin: No rashes, No breakdown Musculoskeletal: No Tenderness to Palpation of Joints or Extremities Neurological: Cranial nerves II-XII grossly intact, Neuro grossly intact Psych/Mental Status: Normal Affect, Appropriate Vital Signs Temp Pulse Resp BP Pulse Ox 98.0 F 87 16 81/43 L 96 03/29/19 08:30 03/29/19 08:30 03/29/19 08:30 03/29/19 11:23 03/29/19 08:30 Oxygen Delivery Method Room Air Weight: 229 lb 8.019 oz Body Mass Index (BMI) 38.2 Finger Stick Blood Glucose 79 Intake and Output for Last 24 Hours 03/27/19 03/28/19 03/29/19 23:59 23:59 23:59 Intake Total 1218 / 1218 Balance 1218 / 1218 Laboratory Tests Past 24 Hrs 03/28/19 03/28/19 03/28/19 19:35 21:05 21:05 WBC 7.8 RBC 3.22 L Hgb 9.3 L Hct 27.1 L MCV 84.2 MCH 28.9 MCHC 34.3 RDW 15.2 H RDW Differential 47.7 H Plt Count 182 MPV 9.2 Immature Gran % (Auto) 0.100 Neut % (Auto) 78.1 H Lymph % (Auto) 11.2 L [place] % (Auto) 5.5 Eos % (Auto) 4.7 Baso % (Auto) 0.4 Absolute Neuts (auto) 6.1 Absolute Lymphs (auto) 0.87 Total Counted Not Reportable Sodium 129 L Potassium 4.0 Chloride 96 L Carbon Dioxide 23.0 Anion Gap 10 BUN 51 H Creatinine 2.50 H Estim Creat Clear Calc 22.07 Est GFR (MDRD) Af Amer 25 L Est GFR (MDRD) Non-Af 21 L BUN/Creatinine Ratio 20.4 H Glucose 118 H Lactic Acid Calcium 10.6 H Magnesium Total Bilirubin 0.60 AST 31 ALT 24 Alkaline Phosphatase 91 Total Protein 7.9 Albumin 3.8 Globulin 4.1 Albumin/Globulin Ratio 0.9 Lipase 38 L TSH Urine Color Yellow Urine Clarity Sl. Cloudy Urine pH 6.0 Ur Specific [place] 1.015 Urine Protein 30 H Urine Glucose (UA) Normal Urine Ketones Negative Urine Occult Blood 10 H Urine Nitrite Negative Urine Bilirubin Negative Urine Urobilinogen Normal Ur Leukocyte Esterase 100 H Urine RBC 0-5 SEEN Urine WBC 0-5 SEEN Ur Squamous Epith Cells 10-25 SEEN Urine Bacteria 1+ Urine Mucus 0 SEEN 03/28/19 03/28/19 03/29/19 21:05 21:05 06:31 WBC RBC Hgb Hct MCV MCH MCHC RDW RDW Differential Plt Count MPV Immature Gran % (Auto) Neut % (Auto) Lymph % (Auto) [place] % (Auto) Eos % (Auto) Baso % (Auto) Absolute Neuts (auto) Absolute Lymphs (auto) Total Counted Sodium 139 Potassium 3.5 Chloride 108 H Carbon Dioxide 22.0 Anion Gap 9 BUN 38 H Creatinine 1.80 H Estim Creat Clear Calc 30.66 Est GFR (MDRD) Af Amer 37 L Est GFR (MDRD) Non-Af 31 L BUN/Creatinine Ratio 21.1 H Glucose 101 Lactic Acid 1.4 Calcium 9.9 Magnesium 2.3 Total Bilirubin AST ALT Alkaline Phosphatase Total Protein Albumin Globulin Albumin/Globulin Ratio Lipase TSH 1.92 Urine Color Urine Clarity Urine pH Ur Specific [place] Urine Protein Urine Glucose (UA) Urine Ketones Urine Occult Blood Urine Nitrite Urine Bilirubin Urine Urobilinogen Ur Leukocyte Esterase Urine RBC Urine WBC Ur Squamous Epith Cells Urine Bacteria Urine Mucus 03/29/19 06:31 WBC 6.5 RBC 2.97 L Hgb 8.5 L Hct 25.2 L MCV 84.8 MCH 28.6 MCHC 33.7 RDW 15.0 H RDW Differential 47.2 H Plt Count 160 MPV 9.2 Immature Gran % (Auto) 0.200 Neut % (Auto) 68.3 Lymph % (Auto) 20.6 [place] % (Auto) 6.6 Eos % (Auto) 4.1 Baso % (Auto) 0.2 Absolute Neuts (auto) 4.5 Absolute Lymphs (auto) 1.35 Total Counted Not Reportable Sodium Potassium Chloride Carbon Dioxide Anion Gap BUN Creatinine Estim Creat Clear Calc Est GFR (MDRD) Af Amer Est GFR (MDRD) Non-Af BUN/Creatinine Ratio Glucose Lactic Acid Calcium Magnesium Total Bilirubin AST ALT Alkaline Phosphatase Total Protein Albumin Globulin Albumin/Globulin Ratio Lipase TSH Urine Color Urine Clarity Urine pH Ur Specific [place] Urine Protein Urine Glucose (UA) Urine Ketones Urine Occult Blood Urine Nitrite Urine Bilirubin Urine Urobilinogen Ur Leukocyte Esterase Urine RBC Urine WBC Ur Squamous Epith Cells Urine Bacteria Urine Mucus POC Glucose 03/29/19 03/29/19 06:36 00:09 POC Glucose 113 H 99 Medical Necessity - Tobacco Use Smoking Status: Former smoker Assessment/Plan All Active Problems Left lower quadrant abdominal pain (Acute) Hypotension (Resolved) Bacteremia due to Gram-negative bacteria (Resolved) ARF (acute renal failure) (Acute) Hyperkalemia (Resolved) 1. Left lower quadrant abdominal pain suspected secondary to left transverse rectus sheath hematoma/seroma-CT of abdomen on admission shows large fluid collection within the transverse rectus sheath most likely representing resorbing hematoma or seroma. General surgery, Dr. Still on consult. 2. Acute gastroenteritis, presumed viral-no further nausea, vomiting, diarrhea. If further diarrhea, send stool for C. difficile. PRN antiemetic regimen. Patient started on vancomycin empirically on admission. She completed Cipro for UTI approximately 3 weeks ago. No further diarrhea since admission. Feel vancomycin can be discontinued. 3. Acute kidney injury on chronic kidney disease stage III- ARTIE resolved with IV fluids. Trend BMP. 4. Hypotension, suspected secondary to hypovolemia-aggressive IV fluids. Hold antihypertensive regimen. 5. Hypovolemic hyponatremia-resolved with IV fluids. 6. Chronic normocytic anemia/anemia of chronic disease-at baseline, trend CBC. 7. CAD-on Plavix, statin, carvedilol. 8. 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 Accu-Cheks ACHS with sliding scale insulin. 9. Hypothyroidism-continue home Synthroid regimen. 10. Depression/anxiety-on both venlafaxine and duloxetine? 11. Hypertension-lisinopril, HCTZ, carvedilol regimen on hold due to hypotension. 12. Hyperlipidemia-continue statin regimen. 13. Obesity-encouraged diet and lifestyle modifications. Nutrition consult. 14. History of partial colectomy secondary to recurrent diverticulitis DVT prophylaxis-SCDs This patient was seen by DAYTON Neri under the supervision of Dr. Draper. <Nichol Draper - Last Filed: 03/29/19 13:11> - Physical Exam Vital Signs Temp Pulse Resp BP Pulse Ox 98.0 F 87 16 81/43 L 96 03/29/19 08:30 03/29/19 08:30 03/29/19 08:30 03/29/19 11:23 03/29/19 08:30 Oxygen Delivery Method Room Air Weight: 229 lb 8.019 oz Body Mass Index (BMI) 38.2 Finger Stick Blood Glucose 79 Intake and Output for Last 24 Hours 03/27/19 03/28/19 03/29/19 23:59 23:59 23:59 Intake Total 1218 / 1218 Balance 1218 / 1218 Laboratory Tests Past 24 Hrs 03/28/19 03/28/19 03/28/19 19:35 21:05 21:05 WBC 7.8 RBC 3.22 L Hgb 9.3 L Hct 27.1 L MCV 84.2 MCH 28.9 MCHC 34.3 RDW 15.2 H RDW Differential 47.7 H Plt Count 182 MPV 9.2 Immature Gran % (Auto) 0.100 Neut % (Auto) 78.1 H Lymph % (Auto) 11.2 L [place] % (Auto) 5.5 Eos % (Auto) 4.7 Baso % (Auto) 0.4 Absolute Neuts (auto) 6.1 Absolute Lymphs (auto) 0.87 Total Counted Not Reportable Sodium 129 L Potassium 4.0 Chloride 96 L Carbon Dioxide 23.0 Anion Gap 10 BUN 51 H Creatinine 2.50 H Estim Creat Clear Calc 22.07 Est GFR (MDRD) Af Amer 25 L Est GFR (MDRD) Non-Af 21 L BUN/Creatinine Ratio 20.4 H Glucose 118 H Lactic Acid Calcium 10.6 H Magnesium Total Bilirubin 0.60 AST 31 ALT 24 Alkaline Phosphatase 91 Total Protein 7.9 Albumin 3.8 Globulin 4.1 Albumin/Globulin Ratio 0.9 Lipase 38 L TSH Urine Color Yellow Urine Clarity Sl. Cloudy Urine pH 6.0 Ur Specific [place] 1.015 Urine Protein 30 H Urine Glucose (UA) Normal Urine Ketones Negative Urine Occult Blood 10 H Urine Nitrite Negative Urine Bilirubin Negative Urine Urobilinogen Normal Ur Leukocyte Esterase 100 H Urine RBC 0-5 SEEN Urine WBC 0-5 SEEN Ur Squamous Epith Cells 10-25 SEEN Urine Bacteria 1+ Urine Mucus 0 SEEN 03/28/19 03/28/19 03/29/19 21:05 21:05 06:31 WBC RBC Hgb Hct MCV MCH MCHC RDW RDW Differential Plt Count MPV Immature Gran % (Auto) Neut % (Auto) Lymph % (Auto) [place] % (Auto) Eos % (Auto) Baso % (Auto) Absolute Neuts (auto) Absolute Lymphs (auto) Total Counted Sodium 139 Potassium 3.5 Chloride 108 H Carbon Dioxide 22.0 Anion Gap 9 BUN 38 H Creatinine 1.80 H Estim Creat Clear Calc 30.66 Est GFR (MDRD) Af Amer 37 L Est GFR (MDRD) Non-Af 31 L BUN/Creatinine Ratio 21.1 H Glucose 101 Lactic Acid 1.4 Calcium 9.9 Magnesium 2.3 Total Bilirubin AST ALT Alkaline Phosphatase Total Protein Albumin Globulin Albumin/Globulin Ratio Lipase TSH 1.92 Urine Color Urine Clarity Urine pH Ur Specific [place] Urine Protein Urine Glucose (UA) Urine Ketones Urine Occult Blood Urine Nitrite Urine Bilirubin Urine Urobilinogen Ur Leukocyte Esterase Urine RBC Urine WBC Ur Squamous Epith Cells Urine Bacteria Urine Mucus 03/29/19 06:31 WBC 6.5 RBC 2.97 L Hgb 8.5 L Hct 25.2 L MCV 84.8 MCH 28.6 MCHC 33.7 RDW 15.0 H RDW Differential 47.2 H Plt Count 160 MPV 9.2 Immature Gran % (Auto) 0.200 Neut % (Auto) 68.3 Lymph % (Auto) 20.6 [place] % (Auto) 6.6 Eos % (Auto) 4.1 Baso % (Auto) 0.2 Absolute Neuts (auto) 4.5 Absolute Lymphs (auto) 1.35 Total Counted Not Reportable Sodium Potassium Chloride Carbon Dioxide Anion Gap BUN Creatinine Estim Creat Clear Calc Est GFR (MDRD) Af Amer Est GFR (MDRD) Non-Af BUN/Creatinine Ratio Glucose Lactic Acid Calcium Magnesium Total Bilirubin AST ALT Alkaline Phosphatase Total Protein Albumin Globulin Albumin/Globulin Ratio Lipase TSH Urine Color Urine Clarity Urine pH Ur Specific [place] Urine Protein Urine Glucose (UA) Urine Ketones Urine Occult Blood Urine Nitrite Urine Bilirubin Urine Urobilinogen Ur Leukocyte Esterase Urine RBC Urine WBC Ur Squamous Epith Cells Urine Bacteria Urine Mucus POC Glucose 03/29/19 03/29/19 03/29/19 11:18 06:36 00:09 POC Glucose 137 H 113 H 99 Assessment/Plan Patient seen by Clarissa Rojas NP-C under my superivision Patient was admitted with a complaint of severe abdominal pain, nausea vomiting as well as diarrhea started about 3 days prior to admission. Diarrhea was clear with no blood she also had normal hematemesis. CT of the abdomen done on admission showed mild circumferential thickening of the distal descending colon which adjacent fat stranding possible postsurgical focal inflammation. She was admitted and is been managed for acute gastroenteritis. Patient seen and examined. Nausea improved. Still however left lower quadrant abdominal pain. General surgery is on consult for this as CAT scan of the abdomen showed large fluid collection within the transverse rectus sheath most likely representing resolving hematoma seroma. She denies any fever chills or chest pain. Review of systems otherwise negative. Home medications reviewed and reconciled. o/e: Vital Signs Height 5 ft 5 in Weight: 229 lb 8.019 oz Weight in Pounds 229.5 lbs Pulse Ox 96 Temperature 98.0 F Pulse Rate 87 Respiratory Rate 16 Blood Pressure [BP] 81/43 Blood Pressure 85/55 Blood Pressure Position [BP] Semi-Fowlers Blood Pressure Position Semi-Fowlers General: Alert, Oriented x3, Cooperative HEENT: Atraumatic, PERRLA, EOMI, Normocephalic Oral: Moist Mucosa Neck: Supple, No JVD, Negative Carotid Bruits Lungs: Clear to auscultation, Normal air movement Cardiovascular: Regular rate, Regular Rhythm, Normal S1, Normal S2, No murmurs Abdomen: Bowel Sounds Present, Soft, Non-Distended, Obese, mild tenderness in left lower quadrant with deep palpation, no guarding or rebound tenderness Extremities: No clubbing, No cyanosis, No edema, Capillary Refill Less than 3 Seconds Skin: No rashes, No breakdown Musculoskeletal: No Tenderness to Palpation of Joints or Extremities Neurological: Cranial nerves II-XII grossly intact, Neuro grossly intact Psych/Mental Status: Normal Affect, Appropriate Plan is continue hydration with IV fluid. She was started empirically on vancomycin for C. difficile. However diarrhea stopped spontaneously. We will therefore DC vancomycin. Will await general surgery recommendations for severe left lower quadrant pain. Start clear liquids and advance as tolerated. Rest of management as per Clarissa Rojas NP-C's note which I reviewed and endorsed. Code Visit Inpatient E&M: 31465 Subs Hosp L3
--- NOTE | 2019-03-29 12:02 | CON.PCM_ITS ---
- Consult Date of Consult: 03/29/19 - Reason for Consult Rose Michaud 1960 ? CHIEF COMPLAINT: abdominal pain ? HPI: The patient is a 58 year old female presents with left lower quadrant abdominal pain noted for a few days. Was placed on antibiotics for a UTI. She has had c diff colitis in past, thinks this feels the same. Had loose stools prior to hospitalization, none since admission. Still with complaint of left lower quadrant abdominal pain. I had seen patient in clinic for chronic skin lesions for which biopsy revealed no evidence of cancer. These lesions may have a neuropathic origin, she can be followed as an outpatient by a surgical orderly. Patient is on plavix, last colonoscopy in 2013 ? ? PAST MEDICAL HISTORY ? Abdominal pain, unspecified site ? ? Acute gastritis without mention of hemorrhage 06/14/2009 ? Allergic rhinitis, cause unspecified ? ? allergies to pollen ? Anemia 05/29/2012 ? - Followed by hematology, thought to have possible G6PD deficiency - Hb at baseline ? Arthritis ? ? knees, wrist, back, hips ? ASCVD (arteriosclerotic cardiovascular disease) 05/29/2012 ? Atherosclerosis of [place] arteries of the extremities with intermittent claudication 07/29/2010 ? CAD (coronary artery disease) 12/21/2011 ? - Cardiac cath in 11/16 showing obstructive RCA dx, medical mgt recommended, stopped ASA 07/24 for proposed surgery, to be resumed now since surgery delayed. Pt advised about this. - Continue Coreg and lisinopril - Cleared by cardiology for proposed surgery ? Cardiomyopathy (HCC) ? ? Cerebrovascular accident (CVA) due to embolism of precerebral artery (HCC) 05/17/2018 ? Chronic renal insufficiency ? ? stage 3 CKD ? Closed fracture of distal end of left femur (HCC) 03/18/2017 ? Clostridium difficile diarrhea 05/29/2012 ? Degenerative arthritis of right knee 05/19/2013 ? Depression 06/27/2018 ? Diabetes mellitus type 2, controlled, without complications ([facility]) 2008 ? - Resume home meds on d/c ? Diarrhea ? ? Diverticulitis 05/29/2012 ? Diverticulosis 2008 ? Hemorrhage of rectum and anus ? ? Hyperlipidemia 09/10/2013 ? Hypertension 09/10/2013 ? Hypothyroidism ? ? Lumbago 01/14/2013 ? Obesity ? ? Occlusion and stenosis of carotid artery without mention of cerebral infarction 05/29/2012 ? Peripheral neuropathy 09/2016 ? only distal ? Peripheral vascular disease, unspecified (HCC) 06/20/2010 ? Personal history of unspecified urinary disorder ? ? Primary localized osteoarthrosis, lower leg 02/08/2006 ? Septic shock(785.52) Dec 2010 ? also in 09/2013 ? Trigger middle finger of left hand 12/15/2013 ? Unspecified asthma(493.90) ? ? PAST SURGICAL HISTORY ? COLONOSCOP W/ OR W/O BRSH SPEC ? 04/12/09 ? COLONOSCOP W/ OR W/O BRSH SPEC ? 05/07/2012 ? COLONOSCOP W/ OR W/O BRSH SPEC ? 04/08/2014 ? COLONOSCOPY ? 09/15/2013 [facility] inpt ? EGD W/O BRSH SPECIMEN W/BX ? 05/07/2012 ? KNEE SCOPE,DIAGNOSTIC ? last one 2004 ? Arthroscopy, knee, x3 left ? LAP VENT/ABD HERNIA REPAIR ? 02/15/2017 ? with mesh; extensive lysis of adhesions; Dr. Estiven Medina ? LAPAROSCOPIC HEMICOLECTOMY ? September 11, 2012 ? [facility] - Dr. Reardon, for diverticulosis ? LX REPAIR RECURRENT VENTRAL HERNIA ? 09/11/2018 ? With mesh. ? ORTHOPEDIC SURGERY HX Left 03/21/2017 ? ORIF periprosthetic fracture femur ? OTHER ? 2010 ? Trigger finger repair left ring finger ? PAST SURGICAL HISTORY OF ? 05/15/14 ? left middle trigger finger release ? REMOVAL ADENOIDS,PRIMARY,<12 Y/O ? age 26 ? Adenoidectomy ? REMOVAL GALLBLADDER ? 1988 ? Cholecystectomy ? REMOVAL OF TONSILS,<12 Y/O ? ? ? Tonsillectomy ? REVISE MEDIAN N/CARPAL TUNNEL SURG ? 1990 and 1999 ? Carpal tunnel decomp, bilateral ? TOTAL KNEE REPLACEMENT ? 03/20/2006 ? Knee replacement, total Left ? TOTAL KNEE REPLACEMENT Right 07/14/2015 ? Right TKA ? ? Current Outpatient Medications: rosuvastatin (CRESTOR) 20 mg tablet Take 1 tablet by mouth daily at bedtime. pantoprazole DR (PROTONIX) 40 mg tablet Take 1 tablet by mouth twice daily. tiZANidine (ZANAFLEX) 4 mg tablet Take 1 tablet by mouth every 8 hours as needed. mupirocin (BACTROBAN) 2 % ointment Apply 1 application to affected area twice daily. carvedilol (COREG) 25 mg tablet Take 1 tablet by mouth twice daily with meals. lisinopril (ZESTRIL) 20 mg tablet Take 1 tablet by mouth once daily. fluticasone (FLONASE) 50 mcg/actuation nasal spray Use 2 Sprays in each nostril once daily. Rinse mouth after use. Hydrochlorothiazide 12.5 mg capsule Take 2 capsules by mouth once daily. dicyclomine (BENTYL) 20 mg tablet Take 1 tablet by mouth three times daily. DULoxetine (CYMBALTA) 60 mg capsule Take 1 capsule by mouth twice daily. amitriptyline (ELAVIL) 25 mg tablet Take 1 tablet by mouth daily at bedtime. sitaGLIPtin (JANUVIA) 50 mg tablet Take 1 tablet by mouth once daily. venlafaxine (EFFEXOR) 75 mg tablet TAKE 1 TABLET BY MOUTH IN THE MORNING & 1 TABLET AT BEDTIME clopidogrel (PLAVIX) 75 mg tablet Take 1 tablet by mouth once daily. triamcinolone acetonide (KENALOG) 0.1 % cream Apply 1 application to affected area once daily as needed. Apply sparingly to area for rash/itching. cloNIDine HCl (CATAPRES) 0.1 mg tablet Take 0.1 mg by mouth twice daily as needed. COMPOUNDED PRESCRIPTION Lift Chair Dx: I63.10, G62.9, E66.09, Z68.35, M48.062 JANUVIA 50 mg tablet TAKE ONE TABLET BY MOUTH DAILY levothyroxine (SYNTHROID) 88 mcg tablet TAKE ONE TABLET BY MOUTH EVERY DAY ON EMPTY STOMACH FOR THYROID COMPOUNDED PRESCRIPTION Rollator walker. Dx I63.9; G62.9 SUMAtriptan (IMITREX) 100 mg tablet Take 1 tablet by mouth as needed for Migraine Headache (see administration instructions). Take 1 tab at the onset of LORENZANA, may repeat dose 2 hr later if needed. Do not exceed 200 mg/24 hr blood sugar diagnostic (ACCU-CHEK SMARTVIEW TEST STRIP) test strip USE 1 TIME DAILY FOR DIABETIC TESTING lancets 30 gauge misc USE 1 TIME DAILY FOR DIABETIC TESTING Multivitamin capsule Take 1 capsule by mouth once daily. nitroglycerin sublingual (NITROQUICK) 0.4 mg SL tablet Dissolve 1 tablet under the tongue as needed. FOR CHEST PAIN. IF NO RELIEF CALL 911 cloNIDine HCl (CATAPRES) 0.1 mg tablet Take 1 tablet by mouth twice daily as needed. ? ? ALLERGIES: Adhesive Tape (Rosins); Amlodipine; Bactrim [Sulfamethoxazole]; Dilaudid [Hydromorphone (Bulk)]; Seasonal Allergies ? 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 FAMILY HISTORY ? Arthritis Mother ? ? Thyroid Mother ? ? other (atrial fibrillation) Mother ? ? Diabetes Father ? ? Heart Father ? ? Ischemic Heart Disease Father ? ? Hypertension Father ? ? Arthritis Father ? ? Heart Maternal Grandmother ? ? heart attack ? Thyroid Sister ? ? Breast Cancer Maternal Aunt ? ? Diabetes Paternal Uncle ? ? Stroke Paternal Uncle ? ? ? REVIEW OF SYSTEMS: General - denies fevers Cardiovascular - denies chest pain, has history of [place] Pulmonary - denies shortness of breath, denies coughing up blood Gastrointestinal -see above Neurological - denies seizures Genitourinary - denies burning with urination, denies blood in urine Hematological - denies spontaneous/prolonged bleeding Skin - see above Musculoskeletal - has back pain occasionally Endocrine - has diabetes Psychological ? no major mood swings ? PHYSICAL EXAMINATION: General: The patient is 58 year old female, well nourished, well hydrated in no acute distress. The patient is oriented to time, place, and person. VITALS: Ht: 5'5 Wt: 234# Head ? Normocephalic. EOM intact with sclera clear and no icterus noted. Mouth with mucus membranes moist. Face - left cheek with ulcerated skin lesion, also in the left submandibular area Neck - supple with no jugular venous distention noted. Trachea is midline. No masses noted. Lungs ? clear to auscultation. Normal breath sounds. No rales/rhonchi/wheezing noted. No labored breathing noted, such as retractions. No cough heard. Heart ? normal S1 and S2 auscultated. No rubs/clicks/murmurs noted. Regular rate. Abdomen ? soft and benign and obese, tender in left lower quadrant, no peritoneal signs noted. Extremities ? no pitting edema noted. Skin ? see above, otherwise normal skin integrity Lymph ? no cervical adenopathy detected, no supraclavicular adenopathy detected Neurological ? no focal deficits noted Psych ? calm and appropriate ? IMPRESSION: left lower quadrant abdominal pain - diverticulitis versus c diff colitis ? PLAN: I have discussed the above with the patient. Continue with antibiotic treatment. At this time, no surgical intervention required. Seroma of right rectus muscle, possible hematoma, no intervention required. Patient with anemia, consider outpatient endoscopic evaluation to rule out GI source. I have encouraged her to ask questions and she has no questions at this point.
[2019-03-29 17:05] LABS: Bedside Glucose 115 mg/dL (70-110)
[2019-03-29] MEDS: Acetaminophen 325 MG Tablet 650 MG PO (20:26)
[2019-03-29] MEDS: Venlafaxine XR 150 MG Capsule PO (22:56)
[2019-03-29] MEDS: Carvedilol 25 MG Tablet PO (22:56)
[2019-03-29] MEDS: Atorvastatin Calcium 40 MG Tablet PO (22:56)
[2019-03-29] MEDS: 0.9% NaCl Peripheral Flush Adult/Peds IV (23:25)
[2019-03-29] MEDS: hydrOXYzine 10 MG Tablet PO (23:26)
[2019-03-30] MEDS: 0.9% Normal Saline 1,000 ML 150 ML IV ×2 (00:45→06:48)
[2019-03-30 05:05] VITALS: BP 110/67; PULSE 83; RESP 16; TEMP 36.7; O2SAT 95
[2019-03-30] MEDS: tiZANidine HCl 2 MG Tablet 4 MG PO (05:09)
[2019-03-30] MEDS: Dicyclomine 10 MG Capsule 20 MG PO (05:10)
[2019-03-30] MEDS: Levothyroxine 88 MCG Tablet PO (05:10)
[2019-03-30 06:06] LABS: Mean Corp Hgb Conc 33.3 g/gl (32-36); Mean Corpuscular Hgb 29.2 pg (27.0-32.0); Mean Corpuscular Volume 87.6 fL (81-99); Mean Platelet Vol. 10.1 fl (6.2-12.0); Platelet Count 150 K/mm3 (150-450); RBC Distribution Width CV 14.5 % (11.6-14.6); Red Blood Count 2.74 M/mm3 (4.2-5.4); White Blood Count 5.4 K/mm3 (4.4-11.0)
[2019-03-30 06:16] LABS: Scan Indicated on CBC? Y/N NO
[2019-03-30 06:26] LABS: Anion Gap 7 (5-15); BUN 23 mg/dL (7-18); BUN/Creat Ratio 19.5 RATIO (10-20); Calcium,Total 8.9 mg/dL (8.5-10.1); Chloride 110 mmol/L (98-107); Creatinine, Serum 1.18 mg/dL (0.55-1.02); EST Glomerular Filtration Rate 50 mL/min (>60); Est Glom Filt Rate - Afr Amer 60 mL/min (>60); Estimated Creatinine Clearance 46.76 ml/min; Glucose 99 mg/dL (74-106); Potassium 3.5 mmol/L (3.5-5.1); Sodium Level 140 mmol/L (136-145)
--- NOTE | 2019-03-30 06:50 | PN.SURG_ITS ---
Patient Problems: Active and Suspected Problems Left lower quadrant abdominal pain (Acute) Objective: Patient feels slightly improved, on vancomycin, has not had bowel movement since admission also skin lesions on face seem to be improving also - Physical Exam Vital Signs Temp Pulse Resp BP Pulse Ox 98.1 F 83 16 110/67 95 03/30/19 05:05 03/30/19 05:05 03/30/19 05:05 03/30/19 05:05 03/30/19 05:05 Oxygen Delivery Method Room Air Weight: 104.1 kg Body Mass Index (BMI) 38.2 Finger Stick Blood Glucose 79 Intake and Output for Last 24 Hours 03/28/19 03/29/19 03/30/19 23:59 23:59 23:59 Intake Total 1218 / 1218 4136 / 4136 Output Total 1000 / 1000 Balance 1218 / 1218 3136 / 3136 Laboratory Tests Past 24 Hrs 03/29/19 03/29/19 03/30/19 06:31 06:31 05:05 WBC 6.5 5.4 RBC 2.97 L 2.74 L Hgb 8.5 L 8.0 L Hct 25.2 L 24.0 L MCV 84.8 87.6 MCH 28.6 29.2 MCHC 33.7 33.3 RDW 15.0 H 14.5 RDW Differential 47.2 H 45.0 H Plt Count 160 150 MPV 9.2 10.1 Immature Gran % (Auto) 0.200 Neut % (Auto) 68.3 Lymph % (Auto) 20.6 [place] % (Auto) 6.6 Eos % (Auto) 4.1 Baso % (Auto) 0.2 Absolute Neuts (auto) 4.5 Absolute Lymphs (auto) 1.35 Total Counted Not Reportable Sodium 139 Potassium 3.5 Chloride 108 H Carbon Dioxide 22.0 Anion Gap 9 BUN 38 H Creatinine 1.80 H Estim Creat Clear Calc 30.66 Est GFR (MDRD) Af Amer 37 L Est GFR (MDRD) Non-Af 31 L BUN/Creatinine Ratio 21.1 H Glucose 101 Calcium 9.9 TSH 1.92 03/30/19 05:05 WBC RBC Hgb Hct MCV MCH MCHC RDW RDW Differential Plt Count MPV Immature Gran % (Auto) Neut % (Auto) Lymph % (Auto) [place] % (Auto) Eos % (Auto) Baso % (Auto) Absolute Neuts (auto) Absolute Lymphs (auto) Total Counted Sodium 140 Potassium 3.5 Chloride 110 H Carbon Dioxide 23.0 Anion Gap 7 BUN 23 H Creatinine 1.18 H Estim Creat Clear Calc 46.76 Est GFR (MDRD) Af Amer 60 Est GFR (MDRD) Non-Af 50 L BUN/Creatinine Ratio 19.5 Glucose 99 Calcium 8.9 TSH POC Glucose 03/29/19 03/29/19 16:55 11:18 POC Glucose 115 H 137 H Medical Necessity - Tobacco Use Smoking Status: Former smoker Assessment/Plan All Active Problems Left lower quadrant abdominal pain (Acute) Hypotension (Resolved) Bacteremia due to Gram-negative bacteria (Resolved) ARF (acute renal failure) (Acute) Hyperkalemia (Resolved) Impression: left lower quadrant abdominal pain - diverticulitis versus c diff colitis Plan: continue present therapy
[2019-03-30 06:56] LABS: Bedside Glucose 133 mg/dL (70-110)
[2019-03-30 07:13] VITALS: O2SAT 97
[2019-03-30 08:54] VITALS: BP 94/54; PULSE 64; RESP 16; TEMP 36.7; O2SAT 95
[2019-03-30] MEDS: Multivitamins,Therapeutic Tablet 1 TABLET PO (09:13)
[2019-03-30] MEDS: Calcium Carb/Vitamin D 1 TABLET Tablet PO (09:13)
[2019-03-30] MEDS: Clopidogrel Bisulfate 75 MG Tablet PO (09:14)
[2019-03-30] MEDS: DULoxetine Hcl 30 MG Capsule PO (09:14)
[2019-03-30] MEDS: Pantoprazole Sodium 40 MG Tablet PO (09:14)
[2019-03-30] MEDS: Ensure Clear 120 ML Liquid PO (09:16)
[2019-03-30 11:26] LABS: Bedside Glucose 101 mg/dL (70-110)
--- NOTE | 2019-03-30 12:01 | DCINST_ITS ---
- Discharge Diagnoses Current Active Problems: Current Active and Chronic Problems Left lower quadrant abdominal pain (Acute) You will use the following diet at home:: Other - Light diet, advance as tolerated. Discharge Activity: Return to Normal Activity Call your doctor if you observe: Shortness of breath, Fainting spells, Chest pain, Uncontrolled pain Allergies/Adverse Reactions: Allergies adhesive Allergy (Verified 03/28/19 19:27) Unknown amlodipine [From Norvasc] Allergy (Verified 03/28/19 19:27) Other hydromorphone HCl [From Dilaudid] Allergy (Verified 03/28/19 19:27) Itching sulfamethoxazole [From Bactrim] Allergy (Verified 03/28/19 19:27) Unknown trimethoprim [From Bactrim] Allergy (Verified 03/28/19 19:) Unknown Medications to take at Discharge Carvedilol [Coreg (Beta Eleni)] 25 mg PO BID 09/11/13 Dicyclomine HCl [Bentyl] 20 mg PO TID 02/21/14 Calcium Citrate/Vitamin D3 [Calcium Citrate-Vit D3 Tablet] 1 each PO DAILY 11/17/17 Levothyroxine Sodium [Levoxyl] 88 mcg PO DAILY 11/17/17 Venlafaxine XR [Effexor Xr] 150 mg PO QHS 11/17/17 Clopidogrel Bisulfate [Plavix] 75 mg PO DAILY 11/29/17 Multivitamin [Multiple Vitamins] 1 each PO DAILY 12/29/17 Tizanidine HCl [Zanaflex] 4 mg PO TID 12/29/17 Rosuvastatin Calcium [Crestor] 20 mg PO QHS 02/10/18 Sitagliptin Phosphate [Januvia] 50 mg PO DAILY 02/10/18 Clonidine HCl 0.2 mg PO BID PRN PRN 03/28/19 Lisinopril 20 mg PO DAILY 03/28/19 Cetirizine HCl [Zyrtec] 10 mg PO DAILY 03/29/19 Duloxetine Hcl [Cymbalta] 30 mg PO BID 03/29/19 Hydrochlorothiazide [Hctz] 25 mg PO DAILY 03/29/19 Pantoprazole Sodium [Protonix] 40 mg PO BID 03/29/19 Primary Care Physician: Brandon Torres DO [Primary Care Provider] - Please follow up with your Primary Care Physician in: 1 Week Test Results: Test results from this visit will be discussed in further detail at your follow- up appointment, if applicable. Please Follow Up With: Prisca Still MD When: Call next week for appt to schedule scope Proposed Discharge Date: 03/30/19
[2019-03-30] MEDS: Glucerna Shake 120 ML LIQUID PO (12:13)
[2019-03-30 13:53] VITALS: BP 126/67; PULSE 93; RESP 16; TEMP 37.2; O2SAT 99
--- NOTE | 2019-03-30 13:54 | PCM.DC.SUM ---
<Renata Rojas - Last Filed: 03/30/19 14:02> Discharge Date and Diagnosis Date of Admission: 03/28/19 Date of Discharge: 03/30/19 - Primary Discharge Diagnosis Active and Suspected Problems 1. Left lower quadrant abdominal pain suspected secondary to left transverse rectus sheath hematoma/seroma 2. Acute gastroenteritis, presumed viral vs colitis with OB+ stool 3. Acute kidney injury on chronic kidney disease stage III 4. Hypotension, suspected secondary to hypovolemia 5. Hypovolemic hyponatremia 6. Chronic normocytic anemia/anemia of chronic disease 7. CAD 8. Type 2 diabetes mellitus complicated by peripheral arthropathy 9. Hypothyroidism 10. Depression/anxiety 11. Hypertension 12. Hyperlipidemia 13. Obesity 14. History of partial colectomy secondary to recurrent diverticulitis - Secondary Discharge Diagnosis Chronic Problems Carotid artery stenosis (Chronic) Hyperlipemia (Chronic) Hypertension (Chronic) Coronary artery disease (Chronic) Diabetes mellitus, type 2 (Chronic) History of Clostridium difficile infection (Chronic) Hx of diverticulitis of colon (Chronic) Status post partial colectomy Obesity (Chronic) Chronic constipation with suspected IBS (Chronic) History of ischemic colitis (Chronic) Bilateral leg weakness (Chronic) Hospital Course and Treatment Imaging Results: Diagnostic Data Abdomen/Pelvis CT 03/28/19 20:42 IMPRESSION: Postsurgical changes status post anterior pelvic wall herniorrhaphy. There is a large fluid collection within the left transverse rectus sheath most likely representing resorbing hematoma or seroma. There are no air bubbles seen to suggest presence of an abscess. There also appears to be some very mild stranding in the adjacent fat with mild thickening of the wall of the adjacent distal descending colon possibly postsurgical although cannot exclude focal inflammation. Clinical correlation recommended Other findings as above Electronically Signed: Nilay London MD at 21:53 EDT , Service support , Dr. Still- General Surgery Operations: None Procedures: None Summary of Care Provided: The patient is a 58 year old F admitted 03/28/2019 due to abdominal pain, nausea, vomiting and diarrhea. 1. Left lower quadrant abdominal pain suspected secondary to left transverse rectus sheath hematoma/seroma-CT of abdomen on admission shows large fluid collection within the transverse rectus sheath most likely representing resorbing hematoma or seroma. General surgery, Dr. Still consulted. No intervention required. 2. Acute gastroenteritis, presumed viral versus colitis with OB positive stool-no further nausea, vomiting, diarrhea. Stool negative for C. difficile. Positive for occult blood and lactoferrin. Follow-up with Dr. Still next week for outpatient scope. 3. Acute kidney injury on chronic kidney disease stage III- ARTIE resolved with IV fluids. 4. Hypotension, suspected secondary to hypovolemia-improved with IV fluids. 5. Hypovolemic hyponatremia-resolved with IV fluids. 6. Chronic normocytic anemia/anemia of chronic disease-mild decrease during admission, suspected secondary to hemodilution. However hemoglobin still at patient's baseline. Recommend repeat CBC in 3 to 5 days by primary care provider. 7. CAD-on Plavix, statin, carvedilol. 8. 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 Continue oral antihyperglycemic regimen. 9. Hypothyroidism-continue home Synthroid regimen. 10. Depression/anxiety-on both venlafaxine and duloxetine? 11. Hypertension-continue lisinopril, HCTZ, carvedilol. 12. Hyperlipidemia-continue statin regimen. 13. Obesity-encouraged diet and lifestyle modifications. 14. History of partial colectomy secondary to recurrent diverticulitis General: Alert, Oriented x3, Cooperative HEENT: Atraumatic, PERRLA, EOMI, Normocephalic Oral: Moist Mucosa Neck: Supple, No JVD, Negative Carotid Bruits Lungs: Clear to auscultation, Normal air movement Cardiovascular: Regular rate, Regular Rhythm, Normal S1, Normal S2, No murmurs Abdomen: Bowel Sounds Present, Soft, Non Tender, Non-Distended, Obese Extremities: No clubbing, No cyanosis, No edema, Capillary Refill Less than 3 Seconds Skin: No rashes, No breakdown Musculoskeletal: No Tenderness to Palpation of Joints or Extremities Neurological: Cranial nerves II-XII grossly intact, Neuro grossly intact Psych/Mental Status: Normal Affect, Appropriate Patient seen and examined prior to discharge. Physical assessment as noted above. Patient is stable for discharge with follow up recommendations as noted above. This patient was seen by DAYTON Neri under the supervision of Dr. Draper. - Physical Exam Vital Signs Temp Pulse Resp BP Pulse Ox 98.0 F 64 16 94/54 L 95 03/30/19 08:54 03/30/19 08:54 03/30/19 08:54 03/30/19 08:54 03/30/19 08:54 Oxygen Delivery Method Room Air Weight: 229 lb 8.019 oz Body Mass Index (BMI) 38.2 Finger Stick Blood Glucose 79 Intake and Output for Last 24 Hours 03/28/19 03/29/19 03/30/19 23:59 23:59 23:59 Intake Total 1218 / 1218 4136 / 4136 Output Total 1000 / 1000 Balance 1218 / 1218 3136 / 3136 Microbiology Past 72 Hours 03/30/19 11:11 C. difficile DNA Amplification - Final Stool 03/30/19 11:11 Stool Lactoferrin - Final Stool 03/30/19 11:11 Stool Occult Blood (ENEDELIA) - Final Stool Occult Blood Positive Laboratory Tests Past 24 Hrs 03/30/19 03/30/19 05:05 05:05 WBC 5.4 RBC 2.74 L Hgb 8.0 L Hct 24.0 L MCV 87.6 MCH 29.2 MCHC 33.3 RDW 14.5 RDW Differential 45.0 H Plt Count 150 MPV 10.1 Sodium 140 Potassium 3.5 Chloride 110 H Carbon Dioxide 23.0 Anion Gap 7 BUN 23 H Creatinine 1.18 H Estim Creat Clear Calc 46.76 Est GFR (MDRD) Af Amer 60 Est GFR (MDRD) Non-Af 50 L BUN/Creatinine Ratio 19.5 Glucose 99 Calcium 8.9 POC Glucose 03/30/19 03/30/19 03/29/19 11:13 06:46 16:55 POC Glucose 101 133 H 115 H Discharge Diet: Light diet - advance as tolerated Discharge Activity: Return to Normal Activity Call your doctor if you observe: Shortness of breath, Fainting spells, Chest pain, Uncontrolled pain Home Medications: Medications to take at Discharge Carvedilol [Coreg (Beta Eleni)] 25 mg PO BID 09/11/13 Dicyclomine HCl [Bentyl] 20 mg PO TID 02/21/14 Calcium Citrate/Vitamin D3 [Calcium Citrate-Vit D3 Tablet] 1 each PO DAILY 11/17/17 Levothyroxine Sodium [Levoxyl] 88 mcg PO DAILY 11/17/17 Venlafaxine XR [Effexor Xr] 150 mg PO QHS 11/17/17 Clopidogrel Bisulfate [Plavix] 75 mg PO DAILY 11/29/17 Multivitamin [Multiple Vitamins] 1 each PO DAILY 12/29/17 Tizanidine HCl [Zanaflex] 4 mg PO TID 12/29/17 Rosuvastatin Calcium [Crestor] 20 mg PO QHS 02/10/18 Sitagliptin Phosphate [Januvia] 50 mg PO DAILY 02/10/18 Clonidine HCl 0.2 mg PO BID PRN PRN 03/28/19 Lisinopril 20 mg PO DAILY 03/28/19 Cetirizine HCl [Zyrtec] 10 mg PO DAILY 03/29/19 Duloxetine Hcl [Cymbalta] 30 mg PO BID 03/29/19 Hydrochlorothiazide [Hctz] 25 mg PO DAILY 03/29/19 Pantoprazole Sodium [Protonix] 40 mg PO BID 03/29/19 Primary Care Physician: Brandon Torres DO [Primary Care Provider] - Please follow up with your Primary Care Physician in: 1 Week Please Follow Up With: Prisca Still MD When: Call next week for appt to schedule scope Disposition: Home Minutes spent on discharge:: 35 Patient Condition:: Stable Medical Necessity - Tobacco Use Smoking Status: Former smoker Meaningful Use Info Meaningful Use Diagnoses (Choose all that apply): None applicable <Nichol Draper - Last Filed: 03/30/19 15:51> Discharge Date and Diagnosis - Secondary Discharge Diagnosis Chronic Problems Carotid artery stenosis (Chronic) Hyperlipemia (Chronic) Hypertension (Chronic) Coronary artery disease (Chronic) Diabetes mellitus, type 2 (Chronic) History of Clostridium difficile infection (Chronic) Hx of diverticulitis of colon (Chronic) Status post partial colectomy Obesity (Chronic) Chronic constipation with suspected IBS (Chronic) History of ischemic colitis (Chronic) Bilateral leg weakness (Chronic) Hospital Course and Treatment Summary of Care Provided: Patient seen by Renata BURRIS under my supervision The patient is a 58 year old F with an extensive past medical history as listed. She was admitted through the ED on 03/28/2019 with complaint of abdominal pain, nausea, vomiting and diarrhea for about 3 days prior to admission. She also had left lower quadrant abdominal pain which is gone now more persistent. CT of the abdomen done showed mild circumferential thickening of distal descending colon with adjacent fat stranding due to possible postsurgical focal inflammation. Because patient had recently been on p.o. ciprofloxacin, she was started empirically on p.o. vancomycin at time of admission to treat for C. difficile. Patient was admitted and managed for gastroenteritis. Diarrhea subsequently resolved. Vancomycin was discontinued as diarrhea had stopped . General surgery was also consulted and advocated for colonoscopy on outpatient basis after patient was discharged. Patient also had ARTIE on CKD stage III and acute hyponatremia likely hypovolemic hypotonic due to dehydration. Patient remained stable and symptoms resolved. She was discharged home on 03/30/2019 and is follow-up with her primary care doctor and general surgery. Patient seen and examined prior to discharge. She had no complaints and felt well. Diarrhea had resolved. Abdominal pain had improved. Stool has tested positive for occult blood but this could be explained by the profuse diarrhea. Labs and vitals reviewed. Home medications reviewed and reconciled. o/e: Vital Signs Height 5 ft 5 in Weight: 229 lb 8.019 oz Weight in Pounds 229.5 lbs Pulse Ox 99 Temperature 99.0 F Pulse Rate 93 Respiratory Rate 16 Blood Pressure [BP] 81/43 Blood Pressure 126/67 Blood Pressure Position [BP] Semi-Fowlers Blood Pressure Position Semi-Fowlers [] General: Alert, Oriented x3, Cooperative HEENT: Atraumatic, PERRLA, EOMI, Normocephalic Oral: Moist Mucosa Neck: Supple, No JVD, Negative Carotid Bruits Lungs: Clear to auscultation, Normal air movement Cardiovascular: Regular rate, Regular Rhythm, Normal S1, Normal S2, No murmurs Abdomen: Bowel Sounds Present, Soft, Non-Distended, Obese, no tenderness with palpation Extremities: No clubbing, No cyanosis, No edema, Capillary Refill Less than 3 Seconds Skin: No rashes, No breakdown Musculoskeletal: No Tenderness to Palpation of Joints or Extremities Neurological: Cranial nerves II-XII grossly intact, Neuro grossly intact Psych/Mental Status: Normal Affect, Appropriate Plan is to discharge home today. To follow up with general surgery- Dr Still for outpatient colonoscopy. Hemoglobin noted to have dropped to 8 from 9.3 on admission. This is likely due to hemodilution as WBC and platelets also dropped after demonstration of IV fluids. She is to have follow-up CBC in 3 days by PCP for follow-up of her hemoglobin. Rest of management as per Renata Rojas [employer] LABEL REWINDER-C's note which I have reviewed and endorsed. - Physical Exam Vital Signs Temp Pulse Resp BP Pulse Ox 99.0 F 93 16 126/67 H 99 03/30/19 13:53 03/30/19 13:53 03/30/19 13:53 03/30/19 13:53 03/30/19 13:53 Oxygen Delivery Method Room Air Weight: 229 lb 8.019 oz Body Mass Index (BMI) 38.2 Finger Stick Blood Glucose 79 Intake and Output for Last 24 Hours 03/28/19 03/29/19 03/30/19 23:59 23:59 23:59 Intake Total 1218 / 1218 4136 / 4136 Output Total 1000 / 1000 Balance 1218 / 1218 3136 / 3136 Microbiology Past 72 Hours 03/30/19 11:11 C. difficile DNA Amplification - Final Stool 03/30/19 11:11 Stool Lactoferrin - Final Stool 03/30/19 11:11 Stool Occult Blood (ENEDELIA) - Final Stool Occult Blood Positive Laboratory Tests Past 24 Hrs 03/30/19 03/30/19 05:05 05:05 WBC 5.4 RBC 2.74 L Hgb 8.0 L Hct 24.0 L MCV 87.6 MCH 29.2 MCHC 33.3 RDW 14.5 RDW Differential 45.0 H Plt Count 150 MPV 10.1 Sodium 140 Potassium 3.5 Chloride 110 H Carbon Dioxide 23.0 Anion Gap 7 BUN 23 H Creatinine 1.18 H Estim Creat Clear Calc 46.76 Est GFR (MDRD) Af Amer 60 Est GFR (MDRD) Non-Af 50 L BUN/Creatinine Ratio 19.5 Glucose 99 Calcium 8.9 POC Glucose 03/30/19 03/30/19 03/29/19 11:13 06:46 16:55 POC Glucose 101 133 H 115 H Code Visit Inpatient E&M: 60124 Disch Hosp
--- NOTE | 2019-03-30 14:02 | NURSING ---
called petros brannon for cab ride home. charge nurse phone number given for them to call when on way.
--- NOTE | 2019-04-01 14:03 | CASEMGMT ---
DRE DELGADILLO DC PHONE CALL DC DATE: 03/30/19 DC Disposition: Home w/[place] [facility] services LACE/STRATA: 08/07 Intro role of CM to patient via phone. Pt states she is doing well, does not have questions re: dc instructions, prescriptions or f/u. Pt has f/u appt made and no new prescriptions were given. No care improvement suggestions were given. Dean HERNANDEZ RN ACM
== END 2019-03-30 15:06 | disposition home or self-care (01) | DRG 920 ==
LOC: ED 20:46 → MS3 23:28
PROVIDERS: Nurse Practitioner Family; Admitting Provider Internal Medicine; Emergency Provider Emergency Medicine; Family Provider Student in an Organized Health Care Education/Training Program; PCP Student in an Organized Health Care Education/Training Program; Referring Provider Internal Medicine; Visit Provider Student in an Organized Health Care Education/Training Program
DX: M96.841 Postprocedural hematoma of a musculoskeletal structure following other procedure (principal); N17.9 Acute kidney failure, unspecified; E87.1 Hypo-osmolality and hyponatremia; K52.9 Noninfective gastroenteritis and colitis, unspecified; Y83.8 Other surgical procedures as the cause of abnormal reaction of the patient, or of later complication, without mention of misadventure at the time of the procedure; E78.5 Hyperlipidemia, unspecified; I25.10 Atherosclerotic heart disease of native coronary artery without angina pectoris; E11.22 Type 2 diabetes mellitus with diabetic chronic kidney disease; I12.9 Hypertensive chronic kidney disease with stage 1 through stage 4 chronic kidney disease, or unspecified chronic kidney disease; N18.3 Chronic kidney disease, stage 3 (moderate); E86.0 Dehydration; E11.51 Type 2 diabetes mellitus with diabetic peripheral angiopathy without gangrene; E66.9 Obesity, unspecified; Z68.38 Body mass index [BMI] 38.0-38.9, adult; Z71.3 Dietary counseling and surveillance; Z87.891 Personal history of nicotine dependence; Z90.49 Acquired absence of other specified parts of digestive tract; D63.8 Anemia in other chronic diseases classified elsewhere; E03.9 Hypothyroidism, unspecified; F41.8 Other specified anxiety disorders; E86.1 Hypovolemia
CPT/HCPCS: 36415; 74176; 80048; 80053; 81001; 82274; 82962; 83605; 83630; 83690; 83735; 84443; 85025; 85027; 87493; 87506; 97802; 99285; J7030; A4216; J2405

== ENCOUNTER 2019-08-10 02:21 | Inpatient (IN) | payer MEDICARE, MEDICAID, SELFPAY ==
[2019-03-28 23:50] VITALS: BMI 38.2
[2019-08-10] VITALS (11 sets, daily range): BP systolic 57–153; BP diastolic 37–73; PULSE 67–98; RESP 18; TEMP 36.2–36.7; O2SAT 95–100; BMI 35.9; BMI 37.5
--- NOTE | 2019-08-10 02:44 | ED.VIS.GEN ---
History of Present Illness Chief Complaint: Lower Extremity Injury Informant: Patient Onset: Today Context: Sudden Onset Timing: Continuous Current Severity: Moderate Maximum Severity: Moderate Narrative: The patient presents to the emergency department with right ankle injury after mechanical fall. Patient was in her normal state of health. She has multiple comorbidities including cardiomyopathy, prior stroke with residual right-sided weakness, gait instability, and hypotension. The patient states she was getting out of bed to use the restroom. She states normally, it takes her a while to loosen up. She uses handrails in her house. 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 She fell with her right ankle underneath her and struck her knee. She did not strike her head. She denies loss of consciousness. She states that she actually saw her primary care earlier this week and had lab work which is at its baseline. Prior similar symptoms: No Recent Illness/Hospitalization: No Past Medical History - Allergies and Home Meds Allergies/Adverse Reactions: Allergies adhesive Allergy (Verified 08/10/19 02:29) Unknown amlodipine [From Norvasc] Allergy (Verified 08/10/19 02:29) Other hydromorphone HCl [From Dilaudid] Allergy (Verified 08/10/19 02:29) Itching sulfamethoxazole [From Bactrim] Allergy (Verified 08/10/19 02:29) Unknown trimethoprim [From Bactrim] Allergy (Verified 08/10/19 02:29) Unknown Primary Care Physician: Brandon Torres DO [Primary Care Provider] - Prior records reviewed: Yes Past Medical History: - Surgical History: cholecystectomy, total knee arthroplasty, tonsillectomy, - - partial colon resection due to diverticulosis. Smoking Status: Former smoker - Family History Paternal Family History: Reports: Heart Disease Maternal Family History: Reports: No pertinent history Review of Systems General: Denies: Chills, Fever, Sweats Eyes: Denies: Visual changes - bilaterally, Diplopia ENT: Denies: Rhinorrhea, Sore throat Cardiovascular: Denies: Chest pain, Palpitations Respiratory: Denies: Dyspnea, Cough, Dyspnea on exertion Gastrointestinal: Denies: Abdominal pain, Nausea, Vomiting, Diarrhea, Melena, Hematochezia Genitourinary: Denies: Dysuria, Hematuria, Frequency Musculoskeletal: Denies: Back pain, Extremity Pain Skin: Denies: Rash, Wounds Neurological: Denies: Headache, Weakness, Numbness Physical Exam Vital Signs/Narrative: Vital Signs Temp Pulse Resp BP Pulse Ox 08/10/19 02:35 77 18 64/47 L 100 08/10/19 02:31 64/47 L 08/10/19 02:22 97.7 F L 74 18 57/37 L 98 Inital Vital Signs reviewed: Yes General: Well nourished, Well developed, No Acute Distress Head: Normocephalic, Atraumatic Eyes: Perrl, EOMI ENT: Moist mucous membranes, No rhinorrhea Neck: Supple, Nontender Cardiovascular: Regular rate, Regular rhythm, No murmurs Respiratory: No distress, CTA bilaterally, Chest nontender Abdomen: Soft, Nontender, Nondistended, Normal bowel sounds Back: Nontender, Normal Inspection Extremities: Tenderness - Mild tenderness over the left knee. Extension is preserved. Pulses are normal. Superficial abrasion of the left fifth toe. Patient does have contusion over the right ankle. Normal pulses. Tenderness at the proximal fibula. No pain in the right foot. Skin: Normal color, No rash Neurological: Alert, Oriented x3, Cranial nerves II-XII grossly intact, Normal Strength, Normal Sensation Psychological: Normal affect, Normal Mood Diagnostic/Tx/Re-eval Abnormal Lab Results 08/10/19 08/10/19 02:40 02:40 WBC 8.9 RBC 2.96 L Hgb 9.2 L Hct 27.5 L MCV 92.9 MCH 31.1 MCHC 33.5 RDW Std Deviation 44.7 H RDW Coeff of Lencho 13.3 Plt Count 227 MPV 9.6 Immature Gran % (Auto) 0.600 Neut % (Auto) 55.3 Lymph % (Auto) 31.1 [place] % (Auto) 7.4 Eos % (Auto) 4.8 Baso % (Auto) 0.8 Absolute Neuts (auto) 4.9 Absolute Lymphs (auto) 2.78 Nucleated RBC % 0 Sodium 133 L Potassium 3.5 Chloride 100 Carbon Dioxide 23.0 Anion Gap 10 BUN 35 H Creatinine 2.49 H Estim Creat Clear Calc 23.05 Est GFR (MDRD) Af Amer 26 L Est GFR (MDRD) Non-Af 21 L BUN/Creatinine Ratio 14.1 Glucose 156 H Calcium 8.8 - Medical Decision Making The patient presents after a near syncopal episode. She states she was lightheaded. She does not think that she passed out. She was initially hypotensive on arrival. IV was established. Labs were obtained. Patient was given a bolus of fluids and had normalization of her blood pressure. The patient has had hypotension before. My suspicion is that this is likely medication related. She is on tizanidine and takes it at night. She is also on other various antihypertensives. Screening labs do show evidence of acute kidney injury. Creatinine is 2.5. 4 days ago, her creatinine was 1.25. X-rays were obtained with the patient does have nondisplaced fractures of the second, third, and fourth right metatarsals. She also has fracture of the distal end of the medial malleolus which does appear to be new. The patient was placed in an Ortho-Glass sugar tong splint. I did discuss the case with Dr. Buchanan. The patient can be transition to a boot orthosis that she does not have a proximal fibular fracture. Given her acute kidney injury, and if the patient can require admission. She was discussed with the hospitalist and will be admitted at this time. Impression 1. Acute kidney injury 2. Near syncope 3. Closed fracture of the second, third, and fourth metatarsals 4. Closed fracture of the distal tip of the medial malleolus 5. Splint by ED physician ED Disposition - Plan for ED Patient: Referrals: Brandon Torres DO [Primary Care Provider] -
[2019-08-10] MEDS: fentaNYL 100 MCG/2 ML Ampul 25 MCG IV ×2 (02:45→04:38)
[2019-08-10 02:54] LABS: Absolute Lymphocyte Count 2.78 X10^3/uL (0.83-4.51); Absolute Neutrophil Count 4.9 X10^3/uL (2.0-7.7); Basophil# 0.07 X10^3/uL; Basophil% 0.8 % (0-1); Eosinophil# 0.43 X10^3/uL; Eosinophils% 4.8 % (0-5); Hematocrit 27.5 % (37-47); Hemoglobin 9.2 g/dL (12.0-15.0); Lymphocyte # 2.78 X10^3/ul (4.0); Lymphocyte % 31.1 % (19-41); Mean Corp Hgb Conc 33.5 g/dL (32-36); Mean Corpuscular Hgb 31.1 pg (27.0-32.0); Mean Corpuscular Volume 92.9 fL (81-99); Mean Platelet Vol. 9.6 fl (6.2-12.0); Monocyte# 0.66 X10^3/uL; Monocyte% 7.4 % (0-10); NRBC Flagged by Analyzer 0 % (0-5); Neutrophil # 4.94 X10^3/uL (2.7-7.7); Neutrophil % 55.3 % (47-70); Platelet Count 227 K/mm3 (150-450); RBC Distribution Width CV 13.3 % (11.6-14.6); RBC Distribution Width SD 44.7 fl (35.1-43.9); Red Blood Count 2.96 M/mm3 (4.2-5.4); White Blood Count 8.9 K/mm3 (4.4-11.0)
--- NOTE | 2019-08-10 02:56 | RAD_ITS ---
STUDY: X-RAY - RIGHT FOOT CLINICAL: Female, 58 years old. Fall. TECHNIQUE: 3 view(s) of the foot. COMPARISON: None. FINDINGS: There is a plantar calcaneal spur. There is an enthesophyte involving the posterior superior calcaneus at the site of insertion of the Achilles tendon. Normal visualized subtalar, talonavicular, calcaneocuboid, tarsal and tarsometatarsal articulations. There are nondisplaced fractures at the base of the second, third, fourth metatarsals. Normal metatarsophalangeal joint of the great toe. Normal tibial and fibular sesamoid bones. Normal interphalangeal joint of the great toe. Normal phalanges of the great toe. Normal second through fifth metatarsophalangeal joints. Normal interphalangeal joints and phalanges of the lesser toes. The soft tissue structures are unremarkable. RAD/Foot min 3 Views IMPRESSION: There are nondisplaced fractures at the base of the second, third, fourth metatarsals. Electronically Signed: Denisse Rankin, at 4:44 EDT Tel , Service support ,
--- NOTE | 2019-08-10 02:56 | RAD_ITS ---
STUDY: X-RAY - RIGHT KNEE REASON FOR EXAM: Female, 58 years old. Fall. Knee pain TECHNIQUE: 4 view(s) of the knee. COMPARISON: None. FINDINGS: There is a right knee arthroplasty in good alignment. There is no evidence of fracture. The soft tissue structures are unremarkable. RAD/Knee 4 or More Views IMPRESSION: There is a right knee arthroplasty in good alignment. There is no evidence of fracture. Electronically Signed: Denisse Raknin, at 4:59 EDT Tel , Service support ,
--- NOTE | 2019-08-10 02:56 | RAD_ITS ---
STUDY: X-RAY - RIGHT TIBIA AND FIBULA REASON FOR EXAM: Female, 58 years old. Fall. Right hip pain TECHNIQUE: 2 view(s) of the tibia and fibula were obtained. COMPARISON: None. FINDINGS: Chip fractures of the medial and lateral malleoli of undetermined age. The soft tissue structures are unremarkable. RAD/Tibia & Fibula 2 Views IMPRESSION: Chip fractures of the medial and lateral malleoli of undetermined age. Electronically Signed: Denisse Rankin, at 5:04 EDT Tel , Service support ,
--- NOTE | 2019-08-10 03:00 | RAD_ITS ---
STUDY: X-RAY - RIGHT ANKLE REASON FOR EXAM: Female, 58 years old. Fall. Right ankle pain. TECHNIQUE: 3 view(s) of the ankle. COMPARISON: None. FINDINGS: No fractures of the tip of the medial and lateral malleoli are of undetermined age. Normal tibiotalar articulation and ankle mortise. There is a plantar calcaneal spur. There is an enthesophyte involving the posterior superior calcaneus at the site of insertion of the Achilles tendon. The visualized subtalar, talonavicular, calcaneocuboid and tarsal articulations are normal. The soft tissue structures are unremarkable. RAD/Ankle min 3 Views IMPRESSION: No fractures of the tip of the medial and lateral malleoli are of undetermined age. Electronically Signed: Denisse Rankin, at 4:51 EDT Tel , Service support ,
[2019-08-10 03:06] LABS: Anion Gap 10 (5-15); BUN 35 mg/dL (7-18); BUN/Creat Ratio 14.1 RATIO (10-20); Calcium,Total 8.8 mg/dL (8.5-10.1); Chloride 100 mmol/L (98-107); Creatinine, Serum 2.49 mg/dL (0.55-1.02); EST Glomerular Filtration Rate 21 mL/min (>60); Est Glom Filt Rate - Afr Amer 26 mL/min (>60); Estimated Creatinine Clearance 23.05 ml/min; Glucose 156 mg/dL (74-106); Potassium 3.5 mmol/L (3.5-5.1); Sodium Level 133 mmol/L (136-145)
--- NOTE | 2019-08-10 03:40 | RAD_ITS ---
STUDY: X-RAY - LEFT FOOT CLINICAL: Female, 58 years old. Fall. Foot pain TECHNIQUE: 3 view(s) of the foot. COMPARISON: None. FINDINGS: There is a plantar calcaneal spur. There is an enthesophyte involving the posterior superior calcaneus at the site of insertion of the Achilles tendon. Normal visualized subtalar, talonavicular, calcaneocuboid, tarsal and tarsometatarsal articulations. Normal metatarsi. There is degenerative arthrosis of the metatarsophalangeal joint of the hallux . Normal tibial and fibular sesamoid bones. Normal interphalangeal joint of the great toe. Normal phalanges of the great toe. Normal second through fifth metatarsophalangeal joints. Normal interphalangeal joints and phalanges of the lesser toes. The soft tissue structures are unremarkable. RAD/Foot min 3 Views IMPRESSION: No acute bone injury of the foot. Electronically Signed: Denisse Rankin, at 4:56 EDT Tel , Service support ,
--- NOTE | 2019-08-10 03:40 | RAD_ITS ---
STUDY: X-RAY - LEFT KNEE REASON FOR EXAM: Female, 58 years old. There is a left knee arthroplasty in good alignment TECHNIQUE: 4 view(s) of the knee. COMPARISON: None. FINDINGS: There is left knee arthroplasty in good alignment. There is no evidence of fracture. The soft tissue structures are unremarkable. RAD/Knee 4 or More Views IMPRESSION: There is left knee arthroplasty in good alignment. There is no evidence of fracture. Electronically Signed: Denisse Rankin, at 5:01 EDT Tel , Service support ,
--- NOTE | 2019-08-10 05:40 | HP.PCM_ITS ---
Problem List (1) Toe fracture, right Status: Acute Qualifiers: Encounter type: initial encounter (2) Hypotension Status: Acute (3) Diabetes mellitus, type 2 Status: Chronic (4) Ankle fracture Status: Acute (5) ARF (acute renal failure) Status: Acute (6) Hyperkalemia Status: Inactive History of Present Illness Date of Admission: 08/10/19 Chief Complaint: fall with right lower extremity pain The patient is a 58 year old F with a significant history of CVA with residual right-sided weakness; hypertension; trigeminal trophic syndrome and diabetes mellitus who presented to emergency department because of a fall. Patient awakened from the bed to use the restroom. At times patient uses walker or she hold onto stuff in her apartment typically at night when she wakes up and she is not fully alert. This time around she tried holding on to supports to walk but she could not reach and she fell. She is unsure whether she had any dizziness leading to the fall. She reports excruciating right knee pain and right foot pain after the fall. Reportedly she has decreased sensation in her right foot at baseline. Also she reports some mild pain in her left knee and in her left foot. At the Emergency Department patient had low blood pressure for which reason she received IV fluid boluses. Emergency department doctor reported that x-ray showed fracture of multiple toes of right foot and right ankle. Her right leg and right foot was placed in a splint. Emergency Department doctor reported talking to orthopedic doctor Dr. Cervantes, who will be okay to follow patient and may change splints to boots. Past Medical History Past Medical History (Chronic Problems): Chronic Problems Carotid artery stenosis (Chronic) Hyperlipemia (Chronic) Hypertension (Chronic) Coronary artery disease (Chronic) Diabetes mellitus, type 2 (Chronic) History of Clostridium difficile infection (Chronic) Hx of diverticulitis of colon (Chronic) Status post partial colectomy Obesity (Chronic) Chronic constipation with suspected IBS (Chronic) History of ischemic colitis (Chronic) Bilateral leg weakness (Chronic) Allergies adhesive Allergy (Verified 08/10/19 02:29) Unknown amlodipine [From Norvasc] Allergy (Verified 08/10/19 02:29) Other hydromorphone HCl [From Dilaudid] Allergy (Verified 08/10/19 02:29) Itching sulfamethoxazole [From Bactrim] Allergy (Verified 08/10/19 02:29) Unknown trimethoprim [From Bactrim] Allergy (Verified 08/10/19 02:29) Unknown Home Medications: Ambulatory Orders Medication Instructions Recorded Carvedilol [Coreg (Beta Eleni)] 25 mg PO BID 09/11/13 Dicyclomine HCl [Bentyl] 20 mg PO TID 02/21/14 Calcium Citrate/Vitamin D3 1 each PO DAILY 11/17/17 [Calcium Citrate-Vit D3 Tablet] Levothyroxine Sodium [Levoxyl] 88 mcg PO DAILY 11/17/17 Venlafaxine XR [Effexor Xr] 75 mg PO BID 11/17/17 Clopidogrel Bisulfate [Plavix] 75 mg PO DAILY 11/29/17 Multivitamin [Multiple Vitamins] 1 each PO DAILY 12/29/17 Tizanidine HCl [Zanaflex] 4 mg PO TID 12/29/17 Rosuvastatin Calcium [Crestor] 20 mg PO QHS 02/10/18 Sitagliptin Phosphate [Januvia] 50 mg PO DAILY 02/10/18 Clonidine HCl 0.2 mg PO BID PRN PRN 03/28/19 Lisinopril 20 mg PO DAILY 03/28/19 Cetirizine HCl [Zyrtec] 10 mg PO DAILY 03/29/19 Duloxetine Hcl [Cymbalta] 60 mg PO BID 03/29/19 Hydrochlorothiazide [Hctz] 25 mg PO DAILY 03/29/19 Pantoprazole Sodium [Protonix] 40 mg PO BID 03/29/19 Valacyclovir HCl [Valacyclovir] 500 mg PO DAILY 08/10/19 Surgical History: cholecystectomy, total knee arthroplasty, tonsillectomy, - - partial colon resection due to diverticulosis. 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 Lives: Alone Smoking Status: Former smoker - *Family History Paternal History Items: Diabetes, Heart Disease, - Maternal History Items: Heart Disease, - - osteoarthritis Review of Systems Constitutional: Denies: Chills, Fever, Weight Change HEENT: Denies: Head Aches, Sinus Congestion, Sinus Drainage Cardiovascular: Denies: Chest Pain, Palpitations Respiratory: Denies: Cough, Shortness of breath at rest, Sputum production Gastrointestinal: Denies: Abdominal Pain, Nausea, Vomiting Genitourinary: Denies: Dysuria Musculoskeletal: Reports: Joint Pain, Joint Tenderness, Leg Pain Skin: Reports: Wounds. Denies: Rash Neurological: Reports: Focal weakness - chronic; left side. Denies: Numbness, Tingling Psychiatric: Denies: Anxiety, Depression, Homicidal Ideations, Suicidal Ideations Hematologic/ Lymphatic: Denies: Easy Bruising, Easy Bleeding VTE Information - Inpt Only VTE Present on Admission: No VTE Mechan Device Prophylaxis: None VTE Pharm Prophylaxis ordered?: Yes Patient Problems: Active and Suspected Problems Toe fracture, right (Acute) Ankle fracture (Acute) - Physical Exam General: Alert, Oriented x3, Cooperative HEENT: Atraumatic, PERRLA, EOMI, Normocephalic, - - healed wound of upper lip Neck: Supple, No JVD, Negative Carotid Bruits Lungs: Clear to auscultation, Normal air movement Cardiovascular: Regular rate, No murmurs Abdomen: Bowel Sounds Present, Soft, Non Tender Extremities: No edema, Capillary Refill Less than 3 Seconds, - - right lower extremity in splint from right knee to right foot. Skin: No rashes, No breakdown, - - nailbed tear of 5th toe of left foot; ecchymosis of medial side of left knee Musculoskeletal: No Tenderness to Palpation of Joints or Extremities Neurological: Cranial nerves II-XII grossly intact, - - Strength of right upper ext: 4/5; Strength of right lower ext: 3/5; Psych/Mental Status: Normal Affect, Appropriate Vital Signs Temp Pulse Resp BP Pulse Ox 97.7 F L 67 18 84/65 L 100 08/10/19 02:22 08/10/19 04:18 08/10/19 02:35 08/10/19 04:18 08/10/19 02:35 Oxygen Delivery Method Room Air Weight: 101.151 kg Body Mass Index (BMI) 35.9 Finger Stick Blood Glucose 79 Intake and Output for Last 24 Hours 08/08/19 08/09/19 08/10/19 23:59 23:59 23:59 Intake Total 500 / 500 Balance 500 / 500 Laboratory Tests Past 24 Hrs 08/10/19 08/10/19 02:40 02:40 WBC 8.9 RBC 2.96 L Hgb 9.2 L Hct 27.5 L MCV 92.9 MCH 31.1 MCHC 33.5 RDW Std Deviation 44.7 H RDW Coeff of Lencho 13.3 Plt Count 227 MPV 9.6 Immature Gran % (Auto) 0.600 Neut % (Auto) 55.3 Lymph % (Auto) 31.1 [place] % (Auto) 7.4 Eos % (Auto) 4.8 Baso % (Auto) 0.8 Absolute Neuts (auto) 4.9 Absolute Lymphs (auto) 2.78 Nucleated RBC % 0 Sodium 133 L Potassium 3.5 Chloride 100 Carbon Dioxide 23.0 Anion Gap 10 BUN 35 H Creatinine 2.49 H Estim Creat Clear Calc 23.05 Est GFR (MDRD) Af Amer 26 L Est GFR (MDRD) Non-Af 21 L BUN/Creatinine Ratio 14.1 Glucose 156 H Calcium 8.8 Assessment/Plan All Active Problems Toe fracture, right (Acute) Ankle fracture (Acute) Hypotension (Acute) ARF (acute renal failure) (Acute) The patient is a 58 year old F with a significant history of CVA with residual right-sided weakness; hypertension; trigeminal trophic syndrome and diabetes mellitus who presented to emergency department because of a fall and with radiographic evidence of multiple toes of right foot and right ankle fracture. Fall with evidence of multiple toes of right foot and right ankle fracture On presentation her blood pressure was low. She fell most probably due to hypotension. Received IV fluid bolus in the emergency department. We will continue IV fluids. Orthopedic consult. Pain regimen with scheduled Tylenol and PRN oxycodone. Bowel protocol with Senokot-S. IV antiemetics PRN Hypotension Hold all home blood pressure medications Received IV fluid bolus in the emergency department Continue patient on maintenance IV infusion. Hypokalemia Presentation potassium was 3.5 Present supplementation x1 ordered. Trend BMP ARTIE On presentation her creatinine was 2.49. Her creatinine from outpatient on 08/05/2019 was 1.25. Likely prerenal from hypotension. IV hydration as above Avoid nephrotoxins. Hold home lisinopril and hydrochlorothiazide. Trend BMP Diabetes Mellitus On presentation her blood glucose was within goal Continue Januvia Accu- chek qachs DVT prophylaxis Heparin subcutaneous. Code Visit Inpatient E&M: 70176 Init Hosp L3
--- NOTE | 2019-08-10 06:26 | NURSING ---
306 DR KANE ALVA, NEAR SYNCOPE
[2019-08-10] MEDS: 0.9% Normal Saline 1,000 ML 100 ML IV (09:10)
--- NOTE | 2019-08-10 09:31 | CON.PCM_ITS ---
Reason for Consult Date of Consultation: 08/10/19 Reason for Consultation: right foot fracture/ankle fracture History of Present Illness: The patient is a 58 year old F with multiple comorbidities who states that she was try to get up to go the bathroom she has poor sensation of his right her of her right foot from stroke and cant remember why/how she fell but had pain in right ankle/foot immediately. ER xrays taken and ortho consulted. 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 ACTH deficiency (Chronic) new diagnosis - Secondary adrenal insufficiency (Chronic) new diagnosis - likely due to pituitary or hypothalamic disease Normochromic normocytic anemia (Chronic) etiology never identified - may be due to chronic adrenal insufficiency Hypothyroidism, secondary/tertiary (Chronic) Osteoporosis (Chronic) suspected, has not had a BMD......I suspect this is severe Cardiomyopathy (Chronic) Stroke (Chronic) Right hemiparesis (Chronic) Gait difficulty (Chronic) Diabetes mellitus (Chronic) Irritable bowel syndrome (Chronic) Muscle spasm (Chronic) Allergic rhinitis (Chronic) GERD (gastroesophageal reflux disease) (Chronic) Herpes simplex (Chronic) Carotid artery stenosis (Chronic) Hyperlipemia (Chronic) Hypertension (Chronic) Coronary artery disease (Chronic) Diabetes mellitus, type 2 (Chronic) History of Clostridium difficile infection (Chronic) Hx of diverticulitis of colon (Chronic) Status post partial colectomy Obesity (Chronic) Chronic constipation with suspected IBS (Chronic) History of ischemic colitis (Chronic) Bilateral leg weakness (Chronic) Allergies adhesive Allergy (Verified 08/10/19 07:52) skin irritation amlodipine [From Norvasc] Allergy (Verified 08/10/19 07:52) tachycardia hydromorphone HCl [From Dilaudid] Allergy (Verified 08/10/19 02:29) Itching sulfamethoxazole [From Bactrim] Allergy (Verified 08/10/19 07:52) made my cold sore huge trimethoprim [From Bactrim] Allergy (Verified 08/10/19 07:52) made my cold sore huge Home Medications: Ambulatory Orders Medication Instructions Recorded Calcium Citrate/Vitamin D3 1 each PO DAILY 11/17/17 [Calcium Citrate-Vit D3 Tablet] Levothyroxine Sodium [Levoxyl] 88 mcg PO DAILY 11/17/17 Clopidogrel Bisulfate [Plavix] 75 mg PO DAILY 11/29/17 Multivitamin [Multiple Vitamins] 1 each PO DAILY 12/29/17 Rosuvastatin Calcium [Crestor] 20 mg PO QHS 02/10/18 Cetirizine HCl [Zyrtec] 10 mg PO DAILY 03/29/19 Pantoprazole Sodium [Protonix] 40 mg PO BID 03/29/19 Amitriptyline HCl 25 mg PO QHS 08/10/19 Valacyclovir HCl [Valacyclovir] 500 mg PO DAILY 08/10/19 Acetaminophen [Tylenol] 1,000 mg PO Q8 08/15/19 Alendronate Sodium [Fosamax] 70 mg PO Q7D@0700 08/15/19 Dicyclomine HCl [Bentyl] 10 mg PO TID PRN PRN cap 08/15/19 Hydrocortisone 10 mg PO DAILY@0800 08/15/19 Hydrocortisone [Cortef] 5 mg PO DAILY 08/15/19 Magnesium Oxide [Mag-Ox 400] 400 mg PO DAILYCM 08/15/19 Oxycodone [Oxyir] 5 mg PO Q4H PRN PRN 7 Days #30 tab 08/15/19 Senna/Docusate Sodium [Senokot-S] 1 tab PO BID 08/15/19 Tizanidine HCl [Zanaflex] 2 mg PO TID PRN PRN #1 tab 08/15/19 Surgical History: cholecystectomy, total knee arthroplasty, tonsillectomy, - - partial colon resection due to diverticulosis. 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 Lives: Alone Smoking Status: Former smoker - *Family History Paternal History Items: Diabetes, Heart Disease, - Maternal History Items: Heart Disease, - - osteoarthritis Review of Systems Constitutional: Denies: Chills, Fever, Weight Change HEENT: Denies: Head Aches, Sinus Congestion, Sinus Drainage Cardiovascular: Denies: Chest Pain, Palpitations Respiratory: Denies: Cough, Shortness of breath at rest, Sputum production Gastrointestinal: Denies: Abdominal Pain, Nausea, Vomiting Genitourinary: Denies: Dysuria Musculoskeletal: Reports: Joint Pain, Joint Tenderness - right ankle/foot; Skin: Denies: Rash, Wounds Neurological: Denies: Numbness, Tingling, Focal weakness Psychiatric: Denies: Anxiety, Depression, Homicidal Ideations, Suicidal Ideations Hematologic/ Lymphatic: Denies: Easy Bruising, Easy Bleeding Patient Problems: Active and Suspected Problems Debility (Acute) Near syncope (Acute) Foot fracture, right (Acute) Closed right ankle fracture (Acute) - Physical Exam General: Alert, Oriented x3, Cooperative HEENT: Atraumatic, PERRLA, EOMI, Normocephalic Neck: Supple, No JVD, Negative Carotid Bruits Lungs: Clear to auscultation, Normal air movement Cardiovascular: Regular rate, No murmurs Abdomen: Bowel Sounds Present, Soft, Non Tender Extremities: No edema, Capillary Refill Less than 3 Seconds Skin: No rashes, No breakdown Musculoskeletal: Tenderness - right foot/ankle in splint, sensxn at baseline, swelling right ankle/foot, compts soft, neg homans bialterall, secondary survey negative Neurological: Cranial nerves II-XII grossly intact Psych/Mental Status: Normal Affect, Appropriate Vital Signs Temp Pulse Resp BP Pulse Ox 97.7 F L 72 18 96/53 L 95 08/10/19 06:30 08/10/19 06:30 08/10/19 06:30 08/10/19 06:30 08/10/19 06:30 Oxygen Delivery Method Room Air Weight: 232 lb 5.875 oz Body Mass Index (BMI) 37.5 Finger Stick Blood Glucose 79 Intake and Output for Last 24 Hours 08/08/19 08/09/19 08/10/19 23:59 23:59 23:59 Intake Total 500 / 500 Balance 500 / 500 Laboratory Tests Past 24 Hrs 08/10/19 08/10/19 02:40 02:40 WBC 8.9 RBC 2.96 L Hgb 9.2 L Hct 27.5 L MCV 92.9 MCH 31.1 MCHC 33.5 RDW Std Deviation 44.7 H RDW Coeff of Lencho 13.3 Plt Count 227 MPV 9.6 Immature Gran % (Auto) 0.600 Neut % (Auto) 55.3 Lymph % (Auto) 31.1 [place] % (Auto) 7.4 Eos % (Auto) 4.8 Baso % (Auto) 0.8 Absolute Neuts (auto) 4.9 Absolute Lymphs (auto) 2.78 Nucleated RBC % 0 Sodium 133 L Potassium 3.5 Chloride 100 Carbon Dioxide 23.0 Anion Gap 10 BUN 35 H Creatinine 2.49 H Estim Creat Clear Calc 23.05 Est GFR (MDRD) Af Amer 26 L Est GFR (MDRD) Non-Af 21 L BUN/Creatinine Ratio 14.1 Glucose 156 H Calcium 8.8 Assessment/Plan All Active Problems Toe fracture, right (Acute) Ankle fracture (Acute) History of stroke (Acute) Heme positive stool (Acute) Hypomagnesemia (Acute) Debility (Acute) Near syncope (Acute) Foot fracture, right (Acute) Closed right ankle fracture (Acute) Hypotension (Acute) ARF (acute renal failure) (Resolved) Bacteremia due to Gram-negative bacteria (Resolved) Hyperkalemia (Resolved) Left lower quadrant abdominal pain (Resolved) right displaced ankle fracture-med malleolus/maissenouve fracture w syndesmosis disruption right met frxs-nd nonop trxt, splint nwb needs operative intervention right ankle swelling to great and multiple medical issues at this point, will await ok from hospitalist for surgery aiming to go on Sunday if ok per medicine and ankle swelling decreases elevate toes above nose on pillows, etc; ice - d/w adam right metatarsal frx- treat conservatively with splint nwb right le left le- no acute concerns will follow swelling to det good time for surgery- may wait as long as 2 weeks for optimal outcome dep on swelling as patient's stroke side and may take longer to reduce swelling call with questions/concerns [phone]
[2019-08-10] MEDS: oxyCODONE 5 MG Tablet 10 MG PO ×3 (10:15→19:33)
[2019-08-10] MEDS: LINAGLIPTIN 5 MG TABLET PO (10:17)
[2019-08-10] MEDS: Senna/Docusate Sodium 1 Tablet PO ×2 (10:17→21:49)
[2019-08-10] MEDS: tiZANidine HCl 2 MG Tablet 4 MG PO ×2 (10:20→21:49)
[2019-08-10] MEDS: Calcium Carb/Vitamin D 1 TABLET Tablet PO (10:20)
[2019-08-10] MEDS: Heparin Injection (Vial) 5,000 UNIT/ML VIAL 5000 UNIT SC ×2 (10:20→21:50)
[2019-08-10] MEDS: Dicyclomine 10 MG Capsule 20 MG PO ×3 (10:21→21:49)
[2019-08-10] MEDS: Loratadine 10 MG Tablet PO (10:21)
[2019-08-10] MEDS: Acetaminophen 325 MG Tablet 650 MG PO ×3 (10:21→21:50)
[2019-08-10] MEDS: DULoxetine Hcl 30 MG Capsule 60 MG PO ×2 (10:22→21:49)
[2019-08-10] MEDS: Multivitamins,Therapeutic Tablet 1 TABLET PO (10:22)
[2019-08-10] MEDS: Pantoprazole Sodium 40 MG Tablet PO ×2 (10:23→21:49)
[2019-08-10] MEDS: Clopidogrel Bisulfate 75 MG Tablet PO (10:23)
[2019-08-10] MEDS: 0.9% NaCl Peripheral Flush Adult/Peds IV (10:24)
[2019-08-10] MEDS: Glucerna Shake 120 ML LIQUID PO (10:27)
[2019-08-10 11:27] LABS: Bedside Glucose 99 mg/dL (70-110)
--- NOTE | 2019-08-10 12:01 | PN_ITS ---
Patient Problems: Active and Suspected Problems Toe fracture, right (Acute) Ankle fracture (Acute) Subjective: still with pain in right foot and ankle. Vitals/I&O's: Vital Signs Temp Pulse Resp BP Pulse Ox 36.5 C L 72 18 96/53 L 95 08/10/19 06:30 08/10/19 06:30 08/10/19 06:30 08/10/19 06:30 08/10/19 11:07 Oxygen Delivery Method Room Air Weight: 105.4 kg Body Mass Index (BMI) 37.5 Finger Stick Blood Glucose 79 Intake and Output for Last 24 Hours 08/08/19 08/09/19 08/10/19 23:59 23:59 23:59 Intake Total 500 / 500 Balance 500 / 500 General: Alert, No apparent distress HEENT: Atraumatic, Normocephalic Oral: Moist Mucosa, No Gingival or Mucosal Lesions/ Ulcerations Neck: No Nodes, Thyroid Normal Size and Texture Lungs: Clear to auscultation, Normal air movement, No rhonchi, No wheeze Cardiovascular: Regular rate, Regular Rhythm, Normal S1, Normal S2 Abdomen: Bowel Sounds Present, Soft, Non Tender, Non-Distended, No Hepato- splenomegaly Extremities: Capillary Refill Less than 3 Seconds, - - right foot and ankle bandaged and splinted. Skin: No rashes, No breakdown Musculoskeletal: No Tenderness to Palpation of Joints or Extremities, No Muscle Wasting Neurological: Sensory exam intact to light touch and pain - in right toes. Psych/Mental Status: Normal Affect, Appropriate Laboratory Results 08/10/19 02:40: WBC 8.9, RBC 2.96 L, Hgb 9.2 L, Hct 27.5 L, MCV 92.9, MCH 31.1, MCHC 33.5, RDW Std Deviation 44.7 H, RDW Coeff of Lencho 13.3, Plt Count 227, MPV 9.6, Immature Gran % (Auto) 0.600, Neut % (Auto) 55.3, Lymph % (Auto) 31.1, [place] % (Auto) 7.4, Eos % (Auto) 4.8, Baso % (Auto) 0.8, Absolute Neuts (auto) 4.9, Absolute Lymphs (auto) 2.78, Nucleated RBC % 0 08/10/19 02:40: Sodium 133 L, Potassium 3.5, Chloride 100, Carbon Dioxide 23.0, Anion Gap 10, BUN 35 H, Creatinine 2.49 H, Estim Creat Clear Calc 23.05, Est GFR (MDRD) Af Amer 26 L, Est GFR (MDRD) Non-Af 21 L, BUN/Creatinine Ratio 14.1, Glucose 156 H, Calcium 8.8 08/10/19 09:14: POC Glucose 99 Current Medications Acetaminophen (Tylenol) 650 mg PO Q6H COUNT INCLUDES THE [facility] Last Admin: 08/10/19 10:21 Dose: 650 mg Documented by: Atorvastatin Calcium (Lipitor) 40 mg PO QHS COUNT INCLUDES THE [facility] Calcium/Vitamin D (Os-Jose 500mg + D) 1 tablet PO DAILY COUNT INCLUDES THE [facility] Last Admin: 08/10/19 10:20 Dose: 1 tablet Documented by: Clopidogrel Bisulfate (Plavix) 75 mg PO DAILY COUNT INCLUDES THE [facility] Last Admin: 08/10/19 10:23 Dose: 75 mg Documented by: Dextrose (D50w Syringe) 0 gm IV X1 PRN; Protocol PRN Reason: Hypoglycemia Dicyclomine HCl (Bentyl) 20 mg PO TID COUNT INCLUDES THE [facility] Last Admin: 08/10/19 10:21 Dose: 20 mg Documented by: Duloxetine HCl (Cymbalta) 60 mg PO BID COUNT INCLUDES THE [facility] Last Admin: 08/10/19 10:22 Dose: 60 mg Documented by: Glucagon () 1 mg IM .X1 PRN PRN Reason: Hypoglycemia Heparin Sodium (Porcine) (Heparin Na) 5,000 unit SC Q12 COUNT INCLUDES THE [facility] Last Admin: 08/10/19 10:20 Dose: 5,000 unit Documented by: Sodium Chloride () 1,000 mls @ 100 mls/hr IV .Q10H COUNT INCLUDES THE [facility] Stop: 08/10/19 17:58 Last Admin: 08/10/19 09:10 Dose: 100 mls/hr Documented by: Levothyroxine Sodium (Synthroid) 88 mcg PO DAILY@0600 COUNT INCLUDES THE [facility] Linagliptin (Tradjenta) 5 mg PO DAILY COUNT INCLUDES THE [facility] Last Admin: 08/10/19 10:17 Dose: 5 mg Documented by: Loratadine (Claritin) 10 mg PO DAILY COUNT INCLUDES THE [facility] Last Admin: 08/10/19 10:21 Dose: 10 mg Documented by: Multivitamins (Multivitamin) 1 tablet PO DAILY@0800 COUNT INCLUDES THE [facility] Last Admin: 08/10/19 10:22 Dose: 1 tablet Documented by: Non-Formulary Medication (Valacyclovir Hcl [Valacyclovir]) 500 mg PO DAILY COUNT INCLUDES THE [facility] Nutritional Formula (Lactose Free) (Glucerna Shake) 120 ml PO 4X/DAY COUNT INCLUDES THE [facility] Last Admin: 08/10/19 10:27 Dose: 120 ml Documented by: Ondansetron HCl (Zofran) 4 mg IV Q8H PRN PRN PRN Reason: NAUSEA/VOMITING Oxycodone HCl (Oxyir) 5 mg PO Q4H PRN PRN PRN Reason: moderate pain Oxycodone HCl (Oxyir) 10 mg PO Q4H PRN PRN PRN Reason: Pain Score 6-10/10 Last Admin: 08/10/19 10:15 Dose: 10 mg Documented by: Pantoprazole Sodium (Protonix) 40 mg PO BID COUNT INCLUDES THE [facility] Last Admin: 08/10/19 10:23 Dose: 40 mg Documented by: Senna/Docusate Sodium (Senokot-S, Lesli-Colace) 1 tablet PO BID COUNT INCLUDES THE [facility] Last Admin: 08/10/19 10:17 Dose: 1 tablet Documented by: Sodium Chloride () 5 - 15 ml IV UD PRN PRN Reason: SALINE FLUSH Last Admin: 08/10/19 10:24 Dose: 10 ml Documented by: Tizanidine HCl (Zanaflex) 4 mg PO TID COUNT INCLUDES THE [facility] Last Admin: 08/10/19 10:20 Dose: 4 mg Documented by: Venlafaxine HCl (Effexor Xr) 75 mg PO BID COUNT INCLUDES THE [facility] Venlafaxine HCl (Effexor) 75 mg PO BID COUNT INCLUDES THE [facility] Medical Necessity - Tobacco Use Smoking Status: Former smoker Assessment/Plan All Active Problems Toe fracture, right (Acute) Ankle fracture (Acute) Hypotension (Acute) ARF (acute renal failure) (Acute) 1. right ankle fracture * per ortho: displaced fracture of medial malleolus and surgery recommended. Plan per ortho, is to await for swelling to improve prior to undergoing surgery. Surgery could be as early as 08/13 to 2 weeks out (depending on resolution of swelling) * Non-weight bearing * keep foot elevated * orthopaedics input appreciated * from a medical standpoint, once creatinine has improved, she ought to be medically optimized to proceed with surgery * check 25 OH d level 2. ARTIE * suspected, but no recent labs * presumed prerenal * Creatinine 1.18 on 03/30/19, apparently was 1.25 on 08/05 * IVF * continue to hold HCTZ 3. CVA * continue atorvastatin * hold clopidogrel for potential surgery this week 4. DM2 * currently controlled * continue lingliptin * SSI 5. VTE proph: moderate risk. SQ heparin Code Visit Procedures: Other Procedure - See Report - Non-billable rounding
[2019-08-10] MEDS: Levothyroxine 88 MCG Tablet PO (12:08)
[2019-08-10 12:41] LABS: Bedside Glucose 108 mg/dL (70-110)
--- NOTE | 2019-08-10 13:21 | NURSING ---
Pt informed this nurse that she it itching all over and is normal for her. No rash or Hives noted when this nurse assessed. Pt States she takes Benadryl all the time at home. Rose also informed this nurse that her pain was still 9 out of 10 despite oxyir. This nurse called and spoke with Dr. Foy about it and no new order for Benadryl or further pain medication at this time.
[2019-08-10] MEDS: Venlafaxine HCl 75 MG Tablet PO ×2 (14:46→21:49)
--- NOTE | 2019-08-10 15:29 | NURSING ---
this nurse checked BP manually and got 78/50, pt denies being dizzy and says her bp gets low at home with Zanaflex. Zanaflex held this afternoon. Dr. Foy called informed. No new orders, he is aware pt IVF running at 100ml/hr. Dr. Foy asked by this nurse if okay to give oxyir with hypotension, Dr. Foy okayed to give.
--- NOTE | 2019-08-10 17:04 | NURSING ---
Attempted to get urine specimen several times during the course of the day. Unsuccessful. Will attempt to st. cath here shortly. Encouraged to drink water.
[2019-08-10 17:11] LABS: Bedside Glucose 133 mg/dL (70-110)
[2019-08-10 19:54] LABS: Bacteria 0 SEEN /hpf (None Seen); Mucous, Urine 0 SEEN /hpf (<or=2+); Red Blood Cells-Urine 0 SEEN /hpf (0-5); White Blood Cells 0 SEEN /hpf (0-5)
[2019-08-10 19:57] LABS: Color, Urine Straw (Yellow); Glucose, Dipstick Normal (Normal); Ketone-Dipstick Negative (Negative); Leukocyte Esterase-Dipstick Negative /ul (Negative); Nitrite-Dipstick Negative (Negative); Occult Blood-Urine Negative /ul (Negative); Protein-Dipstick Negative (Negative); Specific Gravity, Urine 1.005 (1.002-1.030); Urine Bilirubin Dipstick Negative (Negative); Urine Clarity Clear (Clear); Urine Urobilinogen Normal (Normal); Urine pH 6.5 (5.0 - 8.0)
[2019-08-10 20:15] LABS: Squamous Epithelial Cells - UA 0-5 SEEN /hpf (5-10)
[2019-08-10 20:25] LABS: Urea Nitrogen, Urine 225 mg/dL (NO RANGE EST.)
[2019-08-10] MEDS: Atorvastatin Calcium 40 MG Tablet PO (21:49)
[2019-08-10] MEDS: Amitriptyline 25 MG Tablet PO (21:50)
[2019-08-10] MEDS: DiphenhydrAMINE 25 MG Capsule PO (21:50)
[2019-08-10 22:01] LABS: Bedside Glucose 154 mg/dL (70-110)
[2019-08-11] VITALS (9 sets, daily range): BP systolic 89–145; BP diastolic 59–82; PULSE 88–100; RESP 12–18; TEMP 36.4–37.2; O2SAT 96–100
[2019-08-11] MEDS: Acetaminophen 325 MG Tablet 650 MG PO ×3 (02:52→16:08)
[2019-08-11] MEDS: oxyCODONE 5 MG Tablet 10 MG PO ×4 (02:52→22:31)
[2019-08-11 06:45] LABS: Bedside Glucose 116 mg/dL (70-110)
[2019-08-11] MEDS: Dicyclomine 10 MG Capsule 20 MG PO (06:45)
[2019-08-11] MEDS: Levothyroxine 88 MCG Tablet PO (06:45)
[2019-08-11] MEDS: tiZANidine HCl 2 MG Tablet 4 MG PO ×3 (06:45→22:35)
[2019-08-11 07:03] LABS: Anion Gap 10 (5-15); BUN 27 mg/dL (7-18); BUN/Creat Ratio 18.5 RATIO (10-20); Calcium,Total 9.4 mg/dL (8.5-10.1); Chloride 105 mmol/L (98-107); Creatinine, Serum 1.46 mg/dL (0.55-1.02); EST Glomerular Filtration Rate 39 mL/min (>60); Est Glom Filt Rate - Afr Amer 47 mL/min (>60); Estimated Creatinine Clearance 39.32 ml/min; Glucose 125 mg/dL (74-106); Potassium 3.3 mmol/L (3.5-5.1); Sodium Level 138 mmol/L (136-145)
[2019-08-11] MEDS: DiphenhydrAMINE 25 MG Capsule PO ×3 (07:20→22:32)
[2019-08-11 08:47] LABS: Vitamin D,25 Hydroxy 31.5 ng/mL (29.95-100.01)
--- NOTE | 2019-08-11 09:50 | PCM.PROGNOTE ---
Patient Problems: Active and Suspected Problems Toe fracture, right (Acute) Ankle fracture (Acute) Subjective: The patient is a 58-year-old female with a past medical history of carotid artery stenosis, hyperlipidemia, hypertension, anxiety/depression, diabetic peripheral polyneuropathy, coronary artery disease, diabetes mellitus type 2, history of C. difficile infection, diverticulosis with partial colectomy in the past, morbid obesity, chronic constipation, ischemic colitis, femur fraction with no trauma in 2017, CVA in the past and chronic bilateral leg weakness who presented to the emergency department at [facility] on 08/10/2019 after a fall with complaint of pain right lower extremity. She c/o dizziness prior to the fall and the initial BP in the ED was 57/37. X-ray showed nondisplaced fractures at the base of the second, third and fourth metatarsals. Right knee arthroplasty was in good in the alignment no evidence of fracture. X-ray of the right tib/fib showed chip fractures of the medial and lateral malleolar lie of undetermined age. Bed admission showed a hemoglobin of 9.2 with normochromic normocytic indices and a normal white blood cell count and platelet count. Sodium was low at 135 and the BUN was 35 with a creatinine of 2.49 went to see up from 1.18 in March 2019. UA had 0 WBCs per high-power field. Urine specific gravity was 1.005 FEUrea was 62.3% consistent with intrinsic renal disease and not with prerenal azotemia but the CREAT did improve with hydration and anabaptism of normal BP. All events of the past 24 hours of been reviewed. Afebrile since admission Current blood pressure is 110/60. She is 98 100% saturated on room air. Fluid balance on 08/10/2019 was +520 and she had 1700 cc of urine. Since admission is +920. All lab and imaging was personally reviewed. Potassium is 3.3 today and the sodium is 138. BUN is 27 with a creatinine of 1.46, down from 2.49 at admission. She is on multiple sedating medications including clonidine, amitriptyline, Bentyl and tizanidine. She is also on both Effexor and Cymbalta. Antihypertensives include carvedilol 25 mg twice daily, clonidine 0.2 mg twice daily, hydrochlorothiazide 25 mg daily and lisinopril 20 mg daily. All were held at admission. She is also on 2 SNRI's, Cymbalta and Effexor. Not currently receiving any psychotherapy. Her boyfriend of 15 years on the day she returned home following [facility] following CVA. Her step son recently of lung CA. She has chronic pain and she endures it. She lives by herself. She furniture walks in the house and has a FWW and a WC for when she goes out. She is on tizanidine for leg cramps and she tells me that she has chronic pain from neuropathy in her legs. She has restless legs and and she is chronically tired. She has never had a sleep study. - Physical Exam General: Alert, Oriented x3, Cooperative, No apparent distress HEENT: Atraumatic, PERRLA, EOMI, Normocephalic Oral: Moist Mucosa Neck: No JVD, No Nodes, Trachea Midline Lungs: Clear to auscultation - Anterior and lateral Cardiovascular: Regular rate, Regular Rhythm, Normal S1, Normal S2, No Gallop Abdomen: Bowel Sounds Present, Soft, Non Tender, Non-Distended, Obese Extremities: No clubbing, No cyanosis, - - the RLE is in a cast but she can feel me touch her toes on that foot Skin: No rashes Neurological: Cranial nerves II-XII grossly intact Psych/Mental Status: - - emotionally labile, cries very easily. Vital Signs Temp Pulse Resp BP Pulse Ox 97.8 F 92 18 110/60 97 08/11/19 07:46 08/11/19 07:46 08/11/19 07:49 08/11/19 07:46 08/11/19 07:49 Oxygen Delivery Method Room Air Weight: 232 lb 5.875 oz Body Mass Index (BMI) 37.5 Finger Stick Blood Glucose 79 Intake and Output for Last 24 Hours 08/09/19 08/10/19 08/11/19 23:59 23:59 23:59 Intake Total 2220 / 2720 1300 / 1300 Output Total 1700 / 2600 900 / 900 Balance 520 / 120 400 / 400 Laboratory Tests Past 24 Hrs 08/10/19 08/10/19 08/10/19 19:00 19:00 19:00 Sodium Potassium Chloride Carbon Dioxide Anion Gap BUN Creatinine Estim Creat Clear Calc Est GFR (MDRD) Af Amer Est GFR (MDRD) Non-Af BUN/Creatinine Ratio Glucose Calcium Vitamin D 25-Hydroxy Urine Color Straw Urine Clarity Clear Urine pH 6.5 Ur Specific Henderson 1.005 Urine Protein Negative Urine Glucose (UA) Normal Urine Ketones Negative Urine Occult Blood Negative Urine Nitrite Negative Urine Bilirubin Negative Urine Urobilinogen Normal Ur Leukocyte Esterase Negative Urine RBC 0 SEEN Urine WBC 0 SEEN Ur Squamous Epith Cells 0-5 SEEN Urine Bacteria 0 SEEN Urine Mucus 0 SEEN Urine Creatinine 25.70 Urine Urea Nitrogen 225 08/11/19 08/11/19 06:10 06:10 Sodium 138 Potassium 3.3 L Chloride 105 Carbon Dioxide 23.0 Anion Gap 10 BUN 27 H Creatinine 1.46 H Estim Creat Clear Calc 39.32 Est GFR (MDRD) Af Amer 47 L Est GFR (MDRD) Non-Af 39 L BUN/Creatinine Ratio 18.5 Glucose 125 H Calcium 9.4 Vitamin D 25-Hydroxy 31.5 Urine Color Urine Clarity Urine pH Ur Specific Henderson Urine Protein Urine Glucose (UA) Urine Ketones Urine Occult Blood Urine Nitrite Urine Bilirubin Urine Urobilinogen Ur Leukocyte Esterase Urine RBC Urine WBC Ur Squamous Epith Cells Urine Bacteria Urine Mucus Urine Creatinine Urine Urea Nitrogen POC Glucose 08/11/19 08/10/19 08/10/19 06:42 21:47 16:58 POC Glucose 116 H 154 H 133 H 08/10/19 08/10/19 12:11 09:14 POC Glucose 108 99 Medical Necessity - Tobacco Use Smoking Status: Former smoker Assessment/Plan All Active Problems Toe fracture, right (Acute) Ankle fracture (Acute) Hypotension (Acute) ARF (acute renal failure) (Acute) Impressions 1. Fall resulting in nondisplaced fractures of the ASIS of the second, third and fourth metatarsals. She has a displaced fracture of the right medial malleolus and has been seen by Dr. Cervantes who plans surgery on Sunday if the swelling has improved. She has also fractured her Left femur in the past.....has never had a BMD test. Vitamin D is within normal limits. We will check a TSH and PTH. I suspect she may have significant osteoporosis. 2. Has had what sounds like multiple falls in the past - etiology. I am concerned about the sedating medications she is taking and I am also concerned she may have AMBER. 3. Depression - on max dose Cymbalta and effexor? Effexor has been discontinued and will continue the Cymbalta. consult. Recommended she seek counselling. She is also on a TCA at bedtime which would not be a good idea if she has sleep apnea......overnight trending pulse ox ordered. 4. Carotid artery stenosis with a history of stroke in the past 5. Hypotension at admission - etiology? dehydration? too many antihypertensives? 6. Lipidemia/hypertension/diabetic peripheral polyneuropathy/coronary artery disease/diabetes mellitus type 2/morbid obesity/diverticulosis/hypothyroidism- complicate management. Will restart the coreg, and a lower dose of Lisinopril. Continue to hold the HCTZ in light of the hypotension at admission. Restart the Clonidine to prevent rebound HTN but at a lower dose. 7. Continue heparin for DVT prophylaxis. I placed a phone call to Dr. David's office and left my cell phone number and asked if she could call me at her convenience. Code Visit Inpatient E&M: 27169 Subs Hosp L2
[2019-08-11] MEDS: Multivitamins,Therapeutic Tablet 1 TABLET PO (09:51)
[2019-08-11] MEDS: LINAGLIPTIN 5 MG TABLET PO (09:51)
[2019-08-11] MEDS: Senna/Docusate Sodium 1 Tablet PO ×2 (09:51→22:36)
[2019-08-11] MEDS: DULoxetine Hcl 30 MG Capsule 60 MG PO (09:51)
[2019-08-11] MEDS: Calcium Carb/Vitamin D 1 TABLET Tablet PO (09:51)
[2019-08-11] MEDS: Pantoprazole Sodium 40 MG Tablet PO ×2 (09:53→22:36)
--- NOTE | 2019-08-11 09:53 | CASEMGMT ---
LW/POA forms both scanned into summary tab of e-chart. Pt's sister Madhuri Michaud is listed as pt's Healthcare POA. MYNOR Saunders
[2019-08-11] MEDS: Heparin Injection (Vial) 5,000 UNIT/ML VIAL 5000 UNIT SC ×2 (09:54→22:37)
[2019-08-11] MEDS: Loratadine 10 MG Tablet PO (09:54)
[2019-08-11] MEDS: Venlafaxine HCl 75 MG Tablet PO (09:54)
[2019-08-11] MEDS: Clopidogrel Bisulfate 75 MG Tablet PO (09:55)
[2019-08-11 11:10] LABS: AST(SGOT) 22 U/L (15-37); Alanine Aminotransfer ALT/SGPT 24 U/L (13-56); Albumin, Serum 3.5 g/dL (3.2-5.0); Alkaline Phosphatase 55 U/L (45-117); Bilirubin, Direct 0.06 mg/dL (0.00-0.30); Globulin 2.8 g/dL (2.2-4.2); Magnesium 1.6 mg/dL (1.6-2.6); Phosphorus 3.9 mg/dL (2.5-4.9); Protein, Total 6.3 g/dL (6.4-8.2)
[2019-08-11 11:30] LABS: Bedside Glucose 100 mg/dL (70-110)
--- NOTE | 2019-08-11 12:12 | CASEMGMT ---
Addendum entered by Bella Mercedes 08/11/19 13:13: Specialist: Ortho at [facility]- Dr Viramontes. Patient states already s/w Lye Bath Operator from [facility] to see if she qualifies for more hours for SEWER TAPPER. MARY ANNE Beltran Original Note: RN CM Assessment Introduced role of RN CM to patient.? Patient is alert, oriented and able?to participate in RN CM Assessment. ?Care providers, pharmacy, and demographics verified. This adjusto writer operator was followed in by Dr Bashir. Patient upset and tearful regarding discussion and plan of care. This adjusto writer operator was able to address questions and concerns and clarify re: treatment with her current medications for depression, Hypertension, and h/o CKD. States that no other doctor has discussed with her that her medications where ever an issue- mostly referring to her depression medication. Aware Dr Bashir will collaborate with her PCP Dr Del Cid in regards to her care and treatment plan as well as concerns. Encouraged patient to write down any further questions or concerns to discuss with treating MOD and PCP. Presentation: Rt ankle injury after mechanical fall. H/o prior stroke (November 2017) w/Rt sided weakness residual, gait instability. Admit Dx: Fx of multiple toes and ankle of Rt foot. Re-Admit: No. Barriers/Issues: Patient states that she has good support from her neighbors and SEWER TAPPER-[place] through [facility], case freda Morrison #[phone]. States currently has 6hours/week, SEWER TAPPER comes twice weekly for 3hrs/day. SEWER TAPPER assists with Laundry, Cleaning, and grocery shopping. States that she talks with her sister Madhuri who is HPOA, states has recently started talking with her other sister that currently lives with her mother, however has stopped talking with her mother since her stroke d/t her mother being negative and she does not need that in her life. Patient states that her boyfriend of 18years recently passed aware from pancreatic CA since she has had her stroke and states that his son recently passed with lung CA since then. States with both passing, her stroke, and the depression- she felt overwhelmed and came unexpectedly with the discussion of stopping one of her antidepressants as she has been on them for awhile. PCP: Brandon Del Cid Specialists: None. [facility] used to see a psychiatrist in the Preferred Pharmacy: [facility] Insurance: [facility] Dual, [facility] Community Plan Rx Benefit:?Yes ?LNOK: Sister Madhuri Michaud LW/HPOA: Yes both on file with [facility], HPOA- sister Madhuri Michaud Living Arrangements:?Lives alone at [facility] in a LL apartment, no steps to enter. ADL?s: Ambulates independently holding on to things in her home, uses a walker outside of home. SEWER TAPPER assists with laundry, cleaning and grocery shopping. Otherwise Independent with ADLs Transportation: Patient drives in town. Transportation to Dr's appointments that are further arranged through [facility] DME: Walker, WC, Cane, Crutches, Bathroom with toilet bars, shower chair, Glucometer, handrails. HHC: Past with [facility], Current SEWER TAPPER with [place] SNF: Past with [place]. Goal: States that Ortho might do surgery this admission or schedule as an Outpatient and discussed her going to the Rehab Unit here. States her goal would be to return home and open to HHC if recommended. States she is open to SNF if recommended and open to reviewing In Network list for preferences if recommended/needed. States that she did not care for a doctor at [place] but not opposed to returning if needed to. DC PLAN: Home with PT and AMBER for SEWER TAPPER vs. SNF. MARY ANNE Beltran
[2019-08-11] MEDS: oxyCODONE 5 MG Tablet PO (13:45)
[2019-08-11 14:56] LABS: Hemoglobin A1c 5.3 % (4.2-6.3)
[2019-08-11 14:57] LABS: PTHIN 14.1 pg/mL (18.4-80.1)
[2019-08-11] MEDS: DULoxetine Hcl 60 MG Capsule PO (16:07)
[2019-08-11] MEDS: Lisinopril 5 MG Tablet PO (16:08)
[2019-08-11] MEDS: 0.9% NaCl Peripheral Flush Adult/Peds IV ×2 (16:11→22:37)
[2019-08-11 16:40] LABS: Bedside Glucose 144 mg/dL (70-110)
[2019-08-11 18:00] LABS: Free T3 2.3 pg/mL (2.18-3.98)
[2019-08-11 22:30] LABS: Bedside Glucose 123 mg/dL (70-110)
[2019-08-11] MEDS: Acetaminophen 500 MG Tablet 1000 MG PO (22:32)
[2019-08-11] MEDS: cloNIDine HCl 0.1 MG Tablet PO (22:33)
[2019-08-11] MEDS: Carvedilol 25 MG Tablet PO (22:35)
[2019-08-11] MEDS: Amitriptyline 25 MG Tablet PO (22:36)
[2019-08-11] MEDS: Atorvastatin Calcium 40 MG Tablet PO (22:36)
[2019-08-12] VITALS (9 sets, daily range): BP systolic 60–123; BP diastolic 31–88; PULSE 71–87; RESP 16–18; TEMP 36.3–36.9; O2SAT 94–100
[2019-08-12] MEDS: Hydrocortisone 2.5% Crm 1 APPLIC TOPICAL (00:10)
[2019-08-12] MEDS: Levothyroxine 88 MCG Tablet PO (06:38)
[2019-08-12] MEDS: oxyCODONE 5 MG Tablet 10 MG PO ×4 (06:38→22:38)
[2019-08-12] MEDS: tiZANidine HCl 2 MG Tablet 4 MG PO ×3 (06:38→22:38)
[2019-08-12] MEDS: DiphenhydrAMINE 25 MG Capsule PO ×3 (06:39→22:38)
[2019-08-12] MEDS: Acetaminophen 500 MG Tablet 1000 MG PO ×3 (06:40→22:37)
[2019-08-12 06:46] LABS: Bedside Glucose 112 mg/dL (70-110)
[2019-08-12 06:56] LABS: Anion Gap 9 (5-15); BUN 25 mg/dL (7-18); BUN/Creat Ratio 19.2 RATIO (10-20); Calcium,Total 9.4 mg/dL (8.5-10.1); Chloride 105 mmol/L (98-107); EST Glomerular Filtration Rate 45 mL/min (>60); Est Glom Filt Rate - Afr Amer 54 mL/min (>60); Estimated Creatinine Clearance 44.16 ml/min; Glucose 116 mg/dL (74-106); Magnesium 1.8 mg/dL (1.6-2.6); Potassium 3.8 mmol/L (3.5-5.1); Sodium Level 139 mmol/L (136-145)
[2019-08-12] MEDS: Pantoprazole Sodium 40 MG Tablet PO ×2 (08:51→22:38)
[2019-08-12] MEDS: Magnesium Oxide 400 MG Tablet PO (08:52)
[2019-08-12] MEDS: Calcium Carb/Vitamin D 1 TABLET Tablet PO (08:52)
[2019-08-12] MEDS: DULoxetine Hcl 60 MG Capsule PO (08:52)
[2019-08-12] MEDS: Multivitamins,Therapeutic Tablet 1 TABLET PO (08:52)
[2019-08-12] MEDS: Senna/Docusate Sodium 1 Tablet PO ×2 (08:52→22:38)
[2019-08-12] MEDS: Loratadine 10 MG Tablet PO (08:53)
[2019-08-12] MEDS: Heparin Injection (Vial) 5,000 UNIT/ML VIAL 5000 UNIT SC ×2 (08:53→22:38)
[2019-08-12] MEDS: LINAGLIPTIN 5 MG TABLET PO (08:58)
--- NOTE | 2019-08-12 11:28 | PCM.PROGNOTE ---
Patient Problems: Active and Suspected Problems Toe fracture, right (Acute) Ankle fracture (Acute) Subjective: All events of the past 24 hours of been reviewed. Hypotensive again this AM and all the antihypertensives have been held. Pain is better controlled. She tells me that ortho is planning surgery in the AM to pin the ankle fracture No SOB or CP, or lightheadedness Objective: PHYSICAL EXAM: GENERAL: alert, oriented X 3, Cooperative, NAD ORAL: moist mucosa, no mucosal lesions NECK: No JVD, supple, trachea midline LUNGS: CTA, symmetric chest expansion HEART: RRR, Normal S1 and S2, no rub, no gallop ABDOMEN: soft, NT, ND, BS present, no guarding with palpation EXTREMITIES: no cyanosis, no calf tenderness, has intact sensation to the toes on the left foot and they are warm to the touch with no cyanosis of the nail beds SKIN: No rashes, no breakdown NEUROLOGIC: no focal neurologic deficits PSYCH: appropriate, normal affect, pleasant, less emotionally labile today. - Physical Exam Vital Signs Temp Pulse Resp BP Pulse Ox 97.6 F L 79 18 69/38 L 95 08/12/19 08:45 08/12/19 10:10 08/12/19 08:45 08/12/19 10:10 08/12/19 08:45 Oxygen Delivery Method Room Air Weight: 232 lb 5.875 oz Body Mass Index (BMI) 37.5 Finger Stick Blood Glucose 79 Orthostatic Vital Signs Start: 08/12/19 10:10 Freq: q24h Status: Active Protocol: Activity Type Activity Date Activity User E-Sign Co-Sign Detail Recorded Client Recorded Date Recorded By Document 08/12/19 10:10 [facility] [id number] 08/12/19 10:16 [facility] 08/12/19 10:10 Orthostatic Vitals Standing -Blood Pressure (90/60-120/80 mm Hg) 91/55 L -Extremity Use Right Arm -Pulse Rate (60-100 beats/min) 87 Sitting -Blood Pressure (90/60-120/80 mm Hg) 72/38 L -Extremity Use Right Arm -Pulse Rate (60-100 beats/min) 76 Lying -Blood Pressure (90/60-120/80 mm Hg) 69/38 L -Extremity Use Right Arm -Pulse Rate (60-100 beats/min) 79 Intake and Output for Last 24 Hours 08/10/19 08/11/19 08/12/19 23:59 23:59 23:59 Intake Total 2220 / 2720 1404 / 1404 Output Total 1700 / 2600 900 / 2550 1949 Balance 520 / 120 504 / -1146 -1949 Microbiology Past 72 Hours 08/10/19 19:00 Urine Culture - Preliminary Urine, Catheterized Culture exhibits no growth. Laboratory Tests Past 24 Hrs 08/11/19 08/11/19 08/11/19 13:55 13:55 13:55 Sodium Potassium Chloride Carbon Dioxide Anion Gap BUN Creatinine Estim Creat Clear Calc Est GFR (MDRD) Af Amer Est GFR (MDRD) Non-Af BUN/Creatinine Ratio Glucose Hemoglobin A1c 5.3 Calcium Magnesium TSH 0.10 L Free T4 Free T3 pg/dL PTH Intact 14.1 L 08/11/19 08/12/19 13:55 06:11 Sodium 139 Potassium 3.8 Chloride 105 Carbon Dioxide 25.0 Anion Gap 9 BUN 25 H Creatinine 1.30 H Estim Creat Clear Calc 44.16 Est GFR (MDRD) Af Amer 54 L Est GFR (MDRD) Non-Af 45 L BUN/Creatinine Ratio 19.2 Glucose 116 H Hemoglobin A1c Calcium 9.4 Magnesium 1.8 TSH Free T4 1.00 Free T3 pg/dL 2.3 PTH Intact POC Glucose 08/12/19 08/11/19 08/11/19 06:36 22:25 16:18 POC Glucose 112 H 123 H 144 H 08/11/19 11:19 POC Glucose 100 Medical Necessity - Tobacco Use Smoking Status: Former smoker Assessment/Plan All Active Problems Toe fracture, right (Acute) Ankle fracture (Acute) Hypotension (Acute) ARF (acute renal failure) (Acute) Impressions 1. Fall resulting in nondisplaced fractures of the ASIS of the second, third and fourth metatarsals. She has a displaced fracture of the right medial malleolus and has been seen by Dr. Cervantes who plans surgery on Sunday if the swelling has improved. She has also fractured her Left femur in the past.....has never had a BMD test. Vitamin D is within normal limits. We will check a TSH and PTH. I suspect she may have significant osteoporosis. PTH is normal, TSH is low but the T3 and the T4 are WNL. 2. Has had what sounds like multiple falls in the past - etiology. I am concerned about the sedating medications she is taking and I am also concerned she may have AMBER. The overnight trending pulse ox is abnormal and she will need an OP sleep study 3. Depression - on max dose Cymbalta and effexor? Effexor has been discontinued and will continue the Cymbalta. consult. Recommended she seek counselling. She is also on a TCA at bedtime which would not be a good idea if she has sleep apnea and it is untreated 4. Carotid artery stenosis with a history of stroke in the past.....the stroke was 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 5. Hypotension at admission - etiology? dehydration? too many antihypertensives? 6. Hyperlipidemia/hypertension/diabetic peripheral polyneuropathy/coronary artery disease/diabetes mellitus type 2/morbid obesity/diverticulosis/hypothyroidism- complicate management. Will restart the coreg, and a lower dose of Lisinopril. Continue to hold the HCTZ in light of the hypotension at admission. Restart the Clonidine to prevent rebound HTN but at a lower dose. 7. Continue heparin for DVT prophylaxis. I placed a phone call to Dr. David's office and left my cell phone number and asked if she could call me at her convenience. I did not get a call back. Since she may have secondary or tertiary hypothyroidism with low TSH and normal T3 and T4 we will check a Cortrosyn stim test to rule out adrenal insufficiency as etiology of hypotension. Order echocardiogram to assess left ventricular function. Review past CT of the brain to look for pituitary abnormalities. Recheck HH and BMP in the AM Why does she have a chronic N/N anemia? Could she have an undiagnosed CT dz? Code Visit Inpatient E&M: 80559 Subs Hosp L2
[2019-08-12 11:46] LABS: Bedside Glucose 113 mg/dL (70-110)
[2019-08-12] MEDS: 0.9% NaCl Peripheral Flush Adult/Peds IV (12:27)
[2019-08-12] MEDS: Cosyntropin 0.25 MG Vial IV (12:27)
--- NOTE | 2019-08-12 14:38 | ECHOCS_ITS ---
Reason For Study: SYNCOPE, NEAR SYNCOPE Procedure This was a 2D Doppler, Color Flow transthoracic echocardiogram. The study was technically difficult. Due to body habitus and diminished accoustic windows. Contrast injection was performed. Exam performed portable in patient room. Left Ventricle Based upon the 2D echocardiographic and contrast enhanced images obtained there appears to be grossly normal left ventricular size, wall motion, and systolic function. The estimated ejection fraction is 65 %. Diastolic function is indeterminate. Right Ventricle Based upon the 2D echocardiographic images obtained there appears to be grossly normal right ventricular size and systolic function. Atria Normal left atrium. Normal right atrium. No doppler evidence for ASD. Mitral Valve There is no mitral annular calcification. Normal mitral valve. Tricuspid Valve Normal tricuspid valve. Aortic Valve The aortic valve is not well visualized. Pulmonic Valve The pulmonic valve is not well visualized. Great Vessels Normal sized aortic root. Pericardium/Pleural No pericardial effusion. Medication Diluted definity 4.0ml given slow IV push to enhance endocardial definition. MMode/2D Measurements & Calculations LVIDd: 4.5 cm IVSd: 1.1 cm Ao root diam: 2.7 cm LVIDs: 3.4 cm LVPWd: 1.2 cm FS: 23.7 % LAV(MOD-sp4): 62.9 ml LA A4 area: 21.9 cm2 LA dimension(2D): 3.2 cm RA A4 area: 13.9 cm2 Doppler Measurements & Calculations MV E max jaya: 84.1 cm/sec Lat Peak E' Jaya: 7.0 cm/sec Med Peak E' Jaya: 6.4 cm/sec MV A max jaya: 103.4 cm/sec E/E' lat: 12.1 E/E' med: 13.2 MV E/A: 0.81 Ao V2 max: 104.9 cm/sec LV V1 max: 65.8 cm/sec Ao max P.4 mmHg LV V1 max P.7 mmHg Interpretation Summary The study was technically difficult. Contrast injection was performed. Based upon the 2D echocardiographic and contrast enhanced images obtained there appears to be grossly normal left ventricular size, wall motion, and systolic function. The estimated ejection fraction is 65 %. Diastolic function is indeterminate. Ordering Physician: Abbie Bashir Referring Physician: Brandon Del Cid Performed By: Kateryna Narayan RDCS, RVT
--- NOTE | 2019-08-12 14:47 | CASEMGMT ---
Social Work Note SW met with pt to confirm discharge plans. Pt is alert and orientated x3. SW asked pt about going to SNF as physician recommended SNF. Pt states I don't want to go to senior living. Pt states she would only go to [facility] or [facility]. SW informed pt that as of earlier today, TCU didn't have any beds. SW informed pt that this worker will call TCU to confirm but asked pt if [facility] any [facility] Pt gave this worker permission to do so. SW did provided pt with list of area SNF that accept pt's insurance. Pt states if TCU or [facility] is not able to accept pt, then she will return home with [facility]. [facility] placed a call to referral line and Cristy confirms there are no beds on TCU. [facility] placed a call to [facility] and spoke with Bri ([phone]). Bri confirms they have bed available but states they are hesitant to accept pt due pt's insurance but will review referral. Bri states her unix systems administrator won't be available until later today and won't have an answer until tomorrow. [facility] faxed referral to [facility] ([phone]). Plan: TBD. Pt only wishes to discharge to SNF if pt can go to either [facility] or [facility]. Bella Bundy LINE AND FRAME POLER, ACID WASHER OPERATOR
[2019-08-12] MEDS: Insulin Lispro 100 UNIT/ML INSULN.PEN SC (16:55)
[2019-08-12 16:56] LABS: Bedside Glucose 203 mg/dL (70-110)
[2019-08-12] MEDS: Atorvastatin Calcium 40 MG Tablet PO (22:38)
[2019-08-12] MEDS: Amitriptyline 25 MG Tablet PO (22:38)
[2019-08-12 23:51] LABS: Bedside Glucose 80 mg/dL (70-110)
[2019-08-12 23:51] LABS: Bedside Glucose 61 mg/dL (70-110)
[2019-08-12 23:51] LABS: Bedside Glucose 70 mg/dL (70-110)
[2019-08-13] VITALS (12 sets, daily range): BP systolic 111–188; BP diastolic 53–101; PULSE 93–112; RESP 16–20; TEMP 36.3–37; O2SAT 93–100
[2019-08-13] MEDS: Dext 5%-0.45% NS 1,000 ML 100 ML IV ×3 (01:09→18:41)
[2019-08-13] MEDS: 0.9% NaCl Peripheral Flush Adult/Peds IV (01:09)
[2019-08-13] MEDS: oxyCODONE 5 MG Tablet 10 MG PO ×4 (04:02→23:39)
--- NOTE | 2019-08-13 04:55 | EKG12_ITS ---
Test Reason : PRE OP Blood Pressure : / mmHG Vent. Rate : 088 BPM Atrial Rate : 088 BPM P-R Int : 186 ms QRS Dur : 094 ms QT Int : 352 ms P-R-T Axes : 054 043 043 degrees QTc Int : 425 ms Normal sinus rhythm Normal ECG When compared with ECG of 10-FEB-2018 17:19, Non-specific change in ST segment in Lateral leads Nonspecific T wave abnormality no longer evident in Lateral leads Confirmed by JUAN CASTRO, KALIA ([id number]), visual effects editor MEGHANN MILLER ([id number]) on 08/20/2019 10:31:29 AM Referred By: MIHAELA Confirmed By:WARNER MARTINEZ MD
[2019-08-13] MEDS: Levothyroxine 88 MCG Tablet PO (05:33)
[2019-08-13 05:41] LABS: Bedside Glucose 126 mg/dL (70-110)
[2019-08-13 06:05] LABS: Absolute Lymphocyte Count 1.83 X10^3/uL (0.83-4.51); Absolute Neutrophil Count 3.1 X10^3/uL (2.0-7.7); Basophil# 0.02 X10^3/uL; Basophil% 0.4 % (0-1); Eosinophil# 0.26 X10^3/uL; Eosinophils% 4.6 % (0-5); Hematocrit 23.5 % (37-47); Hemoglobin 7.6 g/dL (12.0-15.0); Lymphocyte # 1.83 X10^3/ul (4.0); Lymphocyte % 32.2 % (19-41); Mean Corp Hgb Conc 32.3 g/dL (32-36); Mean Corpuscular Hgb 30.6 pg (27.0-32.0); Mean Corpuscular Volume 94.8 fL (81-99); Mean Platelet Vol. 9.9 fl (6.2-12.0); Monocyte# 0.43 X10^3/uL; Monocyte% 7.6 % (0-10); NRBC Flagged by Analyzer 0 % (0-5); Neutrophil # 3.13 X10^3/uL (2.7-7.7); Neutrophil % 54.8 % (47-70); Platelet Count 174 K/mm3 (150-450); RBC Distribution Width CV 13.2 % (11.6-14.6); RBC Distribution Width SD 45.1 fl (35.1-43.9); Red Blood Count 2.48 M/mm3 (4.2-5.4); White Blood Count 5.7 K/mm3 (4.4-11.0)
[2019-08-13 06:15] LABS: Prothrombin Time (Protime)PT. 12.8 SECONDS (11.7-14.9)
[2019-08-13 06:16] LABS: Partial Thromboplast Time 30.2 Seconds (24.1-36.2)
[2019-08-13 06:22] LABS: Anion Gap 7 (5-15); BUN 28 mg/dL (7-18); BUN/Creat Ratio 21.4 RATIO (10-20); Calcium,Total 8.6 mg/dL (8.5-10.1); Chloride 105 mmol/L (98-107); Creatinine, Serum 1.31 mg/dL (0.55-1.02); EST Glomerular Filtration Rate 44 mL/min (>60); Est Glom Filt Rate - Afr Amer 54 mL/min (>60); Estimated Creatinine Clearance 43.82 ml/min; Glucose 128 mg/dL (74-106); Potassium 3.9 mmol/L (3.5-5.1); Sodium Level 140 mmol/L (136-145)
--- NOTE | 2019-08-13 08:22 | PN_ITS ---
Patient Problems: Active and Suspected Problems Toe fracture, right (Acute) Ankle fracture (Acute) Subjective: All events of the past 24 hours of been reviewed. Afebrile since admission. Pressures in the past 24 hours have ranged from 60/31 to the current blood pressure of 127/73. Blood pressures are equal in both arms. She is maintaining a 100% oxygen saturation on room air. Fluid balance since admission is -1706 and the patient is not on a diuretic. All lab was personally reviewed. White blood cell count and platelets remain within normal limits. The hemoglobin today is 7.6 with normochromic normocytic indices. PT and PTT are within normal limits. BUN and creatinine are stable at 28 and 1.31 respectively. Cortrosyn stim test was not consistent with adrenal insufficiency. Blood sugars were low overnight and she was started on D5 half- normal saline at 100 cc/h per the night hospitalist. Current blood sugar is 126. Hemoglobin A1c was 5.3%. She has many SX of CT disease including, muscle weakness and atrophy, raynaud's, chronic muscle pain even with light touch in the LE's, N/N anemia, pruritus and multiple skin lesions in the past that have now scarred over. Skin bx showed chronic inflammation. The lesions get better with Silvadene. Sshe has had red rash on the scalp that was intensely itchy and blistered and she was told it was due to the stroke she had at that time. Chronically anemic but no cause ever found. - Physical Exam General: Alert, Oriented x3, Cooperative, No apparent distress Oral: Dry Mucosa Neck: Supple Lungs: Clear to auscultation Cardiovascular: Regular rate, Regular Rhythm, Normal S1, Normal S2, No Gallop Abdomen: Bowel Sounds Present, Soft, Non Tender, Non-Distended, - - rectal with internal hemorrhoids, good sphincter tone, brown stool....sample taken to send to the lab Extremities: No cyanosis, No edema, - - there is atrophy of BL calves and thighs The muscles are very tender to touch. Patellar reflexes intact. Skin: - - she has multiple scars over the face and the neck from pustules over the past couple years. There appears to be purplish discoloration over the PIP joints of the hands No heliotrope rash on the upper eyelids the nail beds are pale Vital Signs Temp Pulse Resp BP Pulse Ox 98.2 F 93 18 127/73 H 93 08/13/19 08:18 08/13/19 08:18 08/13/19 08:18 08/13/19 08:18 08/13/19 08:18 Oxygen Delivery Method Room Air Weight: 232 lb 5.875 oz Body Mass Index (BMI) 37.5 Finger Stick Blood Glucose 79 Orthostatic Vital Signs Start: 08/12/19 10:10 Freq: q24h Status: Active Protocol: Activity Type Activity Date Activity User E-Sign Co-Sign Detail Recorded Client Recorded Date Recorded By Document 08/12/19 10:10 CAB [id number] 08/12/19 10:16 CAB 08/12/19 10:10 Orthostatic Vitals Standing -Blood Pressure (90/60-120/80 mm Hg) 91/55 L -Extremity Use Right Arm -Pulse Rate (60-100 beats/min) 87 Sitting -Blood Pressure (90/60-120/80 mm Hg) 72/38 L -Extremity Use Right Arm -Pulse Rate (60-100 beats/min) 76 Lying -Blood Pressure (90/60-120/80 mm Hg) 69/38 L -Extremity Use Right Arm -Pulse Rate (60-100 beats/min) 79 Intake and Output for Last 24 Hours 08/11/19 08/12/19 08/13/19 23:59 23:59 23:59 Intake Total 1404 / 1404 880 / 1320 440 / 440 Output Total 900 / 2550 3050 / 3550 1000 / 1000 Balance 504 / -1146 -2170 / -2230 -560 / -560 Microbiology Past 72 Hours 08/10/19 19:00 Urine Culture - Final Urine, Catheterized Culture exhibits no growth. Laboratory Tests Past 24 Hrs 08/12/19 08/12/19 08/12/19 12:00 13:35 13:50 WBC RBC Hgb Hct MCV MCH MCHC RDW Std Deviation RDW Coeff of Lencho Plt Count MPV Immature Gran % (Auto) Neut % (Auto) Lymph % (Auto) [place] % (Auto) Eos % (Auto) Baso % (Auto) Absolute Neuts (auto) Absolute Lymphs (auto) Nucleated RBC % PT INR APTT Sodium Potassium Chloride Carbon Dioxide Anion Gap BUN Creatinine Estim Creat Clear Calc Est GFR (MDRD) Af Amer Est GFR (MDRD) Non-Af BUN/Creatinine Ratio Glucose Calcium Cortisol 7.10 23.80 H 25.00 H 08/13/19 08/13/19 08/13/19 05:16 05:16 05:16 WBC 5.7 RBC 2.48 L Hgb 7.6 L Hct 23.5 L MCV 94.8 MCH 30.6 MCHC 32.3 RDW Std Deviation 45.1 H RDW Coeff of Lencho 13.2 Plt Count 174 MPV 9.9 Immature Gran % (Auto) 0.400 Neut % (Auto) 54.8 Lymph % (Auto) 32.2 [place] % (Auto) 7.6 Eos % (Auto) 4.6 Baso % (Auto) 0.4 Absolute Neuts (auto) 3.1 Absolute Lymphs (auto) 1.83 Nucleated RBC % 0 PT 12.8 INR 1.0 APTT 30.2 Sodium 140 Potassium 3.9 Chloride 105 Carbon Dioxide 28.0 Anion Gap 7 BUN 28 H Creatinine 1.31 H Estim Creat Clear Calc 43.82 Est GFR (MDRD) Af Amer 54 L Est GFR (MDRD) Non-Af 44 L BUN/Creatinine Ratio 21.4 H Glucose 128 H Calcium 8.6 Cortisol POC Glucose 08/13/19 08/12/19 08/12/19 05:36 23:42 23:11 POC Glucose 126 H 80 61 L 08/12/19 08/12/19 08/12/19 22:22 16:50 11:43 POC Glucose 70 203 H 113 H Medical Necessity - Tobacco Use Smoking Status: Former smoker Assessment/Plan All Active Problems Toe fracture, right (Acute) Ankle fracture (Acute) Hypotension (Acute) ARF (acute renal failure) (Acute) Impressions 1. Fall resulting in nondisplaced fractures of the ASIS of the second, third and fourth metatarsals. She has a displaced fracture of the right medial malleolus and has been seen by Dr. Cervantes who plans surgery on Sunday if the swelling has improved. She has also fractured her Left femur in the past.....has never had a BMD test. Vitamin D is within normal limits. We will check a TSH and PTH. I suspect she may have significant osteoporosis. PTH is normal, TSH is low but the T3 and the T4 are WNL. 2. Has had what sounds like multiple falls in the past - etiology. I am concerned about the sedating medications she is taking and I am also concerned she may have AMBER. The overnight trending pulse ox is abnormal and she will need an OP sleep study 3. Depression - on max dose Cymbalta and effexor? Effexor has been discontinued and will continue the Cymbalta. consult. Recommended she seek counselling. She is also on a TCA at bedtime which would not be a good idea if she has sleep apnea and it is untreated 4. Carotid artery stenosis with a history of stroke in the past.....the stroke was 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 5. Hypotension at admission - etiology? dehydration? too many ant ihypertensives? 6. N/N anemia - chronic 7. BL LE weakness with falls - WHY? The stroke she had was embolic and the areas were very small......I doubt this is causing the weakness and multiple fa lls. 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 Avoid steroids until all the testing is complete. 8. I suspect she may have secondary hypothyroidism......I suspect she may have diabetes insipidus also.....nephrogenic vs central? 6. Hyperlipidemia/hypertension/diabetic peripheral polyneuropathy/coronary artery disease/diabetes mellitus type 2/morbid obesity/diverticulosis/hypothyroidism- complicate management. Will restart the coreg, and a lower dose of Lisinopril. Continue to hold the HCTZ in light of the hypotension at admission. Restart the Clonidine to prevent rebound HTN but at a lower dose. 7. Continue heparin for DVT prophylaxis. Why is she so anemic....and the anemia is chronic? Will check a hemoccult stool. check ESR, CRP, CPK, RA, JOHN, anti Vanesa.....does she have a CT disease? Why are her legs so weak and why all the falls? Will also check a SPE and UPE and urine myoglobin. Consult Dr. Reynolds to r/o neurologic cause for LE weakness. Dr. Cervantes will get a muscle bx at the time of surgery today. Type and screen for PRBC's and recheck the H/H after surgery today Code Visit Inpatient E&M: [id number] [facility] Hosp L3
[2019-08-13] MEDS: Loratadine 10 MG Tablet PO (08:26)
[2019-08-13] MEDS: LINAGLIPTIN 5 MG TABLET PO (08:26)
[2019-08-13] MEDS: Magnesium Oxide 400 MG Tablet PO (08:26)
[2019-08-13] MEDS: Multivitamins,Therapeutic Tablet 1 TABLET PO (08:26)
[2019-08-13] MEDS: Senna/Docusate Sodium 1 Tablet PO ×2 (08:27→22:02)
[2019-08-13] MEDS: Calcium Carb/Vitamin D 1 TABLET Tablet PO (08:27)
[2019-08-13] MEDS: DULoxetine Hcl 60 MG Capsule PO (08:27)
[2019-08-13] MEDS: Pantoprazole Sodium 40 MG Tablet PO ×2 (08:27→22:02)
[2019-08-13] MEDS: DiphenhydrAMINE 25 MG Capsule PO (08:27)
[2019-08-13 08:48] LABS: Erythrocyte Sedimentation Rate 24 mm/hr (0-30)
[2019-08-13 08:54] LABS: CPK Total, Creatine Kinase 172 U/L (26-192); Rheumatoid Factor < 10.0 IU/mL (<15)
[2019-08-13 09:53] LABS: LDH 238 U/L (84-246)
[2019-08-13 11:16] LABS: Bedside Glucose 103 mg/dL (70-110)
[2019-08-13 11:18] LABS: Follicle Stimulating Hormone 47.8 mIU/mL; Prolactin 34.9 ng/mL
--- NOTE | 2019-08-13 11:30 | CASEMGMT ---
Addendum entered by Bella Bundy 08/13/19 12:15: Since TCU is pt's first choice and now they have a bed available, CECE placed a call to Bri at [facility] and informed her to disregard referral. Original Note: Social Work Note SW received message from Bri at [facility] stating they should be able to accept pt but would like an update on if pt is having surgery. CECE spoke with Charge Nurse and pt is having surgery today. CECE spoke with Cristy with TCU just to confirm on beds. Cristy states a bed did open up for pt. CECE provided referral. CECE informed June in TCU to not submit for pre-cert yet as pt is just having surgery today. June states understanding. CECE attempted to update pt but pt currently with physician. Plan: TCU pending pre-cert. TCU to submit for pre-cert tomorrow as pt is having surgery today Bella Bundy TOOL GRINDER OPERATOR EXTERNAL, EXPORT SPECIALIST
--- NOTE | 2019-08-13 12:33 | PCM.CONS.GEN ---
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 Per patient she got up in the middle of the night and probably had a mechanical fall, resulting in right ankle fracture for which she is scheduled to undergo surgery this afternoon. Per patient she has had balance issues due to her neuropathy, falls about once a month, has chronic LE weakness probably from her neuropathy, denies any thigh pain, but has numbness in the legs and burning pain in her feet. Per patient she is on Amitriptyline and Cymbalta from her PCP for neuropathy. Denies any neck pain, new onset low back pain or radicular symptoms. Denies any difficulty in getting up from sitting position. Per patent she lives alone, uses walker to ambulate outside house, drives locally and has home health for assistance with her ADLs. Total CK level 172 (N). Past Medical History Past Medical History (Chronic Problems): Chronic Problems Carotid artery stenosis (Chronic) Hyperlipemia (Chronic) Hypertension (Chronic) Coronary artery disease (Chronic) Diabetes mellitus, type 2 (Chronic) History of Clostridium difficile infection (Chronic) Hx of diverticulitis of colon (Chronic) Status post partial colectomy Obesity (Chronic) Chronic constipation with suspected IBS (Chronic) History of ischemic colitis (Chronic) Bilateral leg weakness (Chronic) Allergies adhesive Allergy (Verified 08/10/19 07:52) skin irritation amlodipine [From Norvasc] Allergy (Verified 08/10/19 07:52) tachycardia hydromorphone HCl [From Dilaudid] Allergy (Verified 08/10/19 02:29) Itching sulfamethoxazole [From Bactrim] Allergy (Verified 08/10/19 07:52) made my cold sore huge trimethoprim [From Bactrim] Allergy (Verified 08/10/19 07:52) made my cold sore huge Home Medications: Ambulatory Orders Medication Instructions Recorded Carvedilol [Coreg (Beta Eleni)] 25 mg PO BID 09/11/13 Dicyclomine HCl [Bentyl] 20 mg PO TID 02/21/14 Calcium Citrate/Vitamin D3 1 each PO DAILY 11/17/17 [Calcium Citrate-Vit D3 Tablet] Levothyroxine Sodium [Levoxyl] 88 mcg PO DAILY 11/17/17 Clopidogrel Bisulfate [Plavix] 75 mg PO DAILY 11/29/17 Multivitamin [Multiple Vitamins] 1 each PO DAILY 12/29/17 Tizanidine HCl [Zanaflex] 4 mg PO TID 12/29/17 Rosuvastatin Calcium [Crestor] 20 mg PO QHS 02/10/18 Sitagliptin Phosphate [Januvia] 50 mg PO DAILY 02/10/18 Clonidine HCl 0.2 mg PO BID 03/28/19 Lisinopril 20 mg PO DAILY 03/28/19 Cetirizine HCl [Zyrtec] 10 mg PO DAILY 03/29/19 Duloxetine Hcl [Cymbalta] 60 mg PO BID 03/29/19 Hydrochlorothiazide [Hctz] 25 mg PO DAILY 03/29/19 Pantoprazole Sodium [Protonix] 40 mg PO BID 03/29/19 Amitriptyline HCl 25 mg PO QHS 08/10/19 Valacyclovir HCl [Valacyclovir] 500 mg PO DAILY 08/10/19 Venlafaxine HCl [Effexor] 75 mg PO BID 08/10/19 Surgical History: cholecystectomy, total knee arthroplasty, tonsillectomy, - - partial colon resection due to diverticulosis. Psychiatric History: No pertinent psych hx [employer]P OF [employer] History: No pertinent [employer] history Lives: Alone Smoking Status: Former smoker Alcohol: None Drugs: None - *Family History Paternal History Items: Diabetes, Heart Disease, - Maternal History Items: Heart Disease, - - osteoarthritis Review of Systems Constitutional: Reports: - - Complete ROS negative except as documented in HPI Patient Problems: Active and Suspected Problems Toe fracture, right (Acute) Ankle fracture (Acute) Falls (Acute) Neuropathy (Acute) History of stroke (Acute) - Physical Exam General: Alert HEENT: Normocephalic Neck: Supple Lungs: Normal air movement Cardiovascular: Normal S1, Normal S2 Abdomen: Bowel Sounds Present Extremities: No cyanosis Neurological: - - Conscious, alert, CN II through XII grossly intact, power 5 x 5 both upper extremities, +4 x 5 left lower extremity (chronic weakness), right lower extremity power could not be examined as patient has right ankle fracture and is in cast and is due for surgery today, denies any new onset sensory loss but has chronic sensory loss to light touch both legs below ankle worse on the right as compared to the left, no cerebellar signs, ? mild muscle atrophy in the thigh muscles, gait deferred, reflexes + B/L B/S/T/K/A Psych/Mental Status: Normal Affect Vital Signs Temp Pulse Resp BP Pulse Ox 98.2 F 93 18 127/73 H 93 08/13/19 08:18 08/13/19 08:18 08/13/19 08:18 08/13/19 08:18 08/13/19 08:18 Oxygen Delivery Method Room Air Weight: 105.4 kg Body Mass Index (BMI) 37.5 Finger Stick Blood Glucose 79 Intake and Output for Last 24 Hours 08/11/19 08/12/19 08/13/19 23:59 23:59 23:59 Intake Total 1404 / 1404 880 / 1320 1440 / 1440 Output Total 900 / 2550 3050 / 3550 1000 / 1000 Balance 504 / -1146 -2170 / -2230 440 / 440 Microbiology Past 72 Hours 08/13/19 10:15 Stool Occult Blood (ENEDELIA) - Final Stool Occult Blood Positive 08/10/19 19:00 Urine Culture - Final Urine, Catheterized Culture exhibits no growth. Laboratory Tests Past 24 Hrs 08/12/19 08/12/19 08/12/19 12:00 13:35 13:35 WBC RBC Hgb Hct MCV MCH MCHC RDW Std Deviation RDW Coeff of Lencho Plt Count MPV Immature Gran % (Auto) Neut % (Auto) Lymph % (Auto) [place] % (Auto) Eos % (Auto) Baso % (Auto) Absolute Neuts (auto) Absolute Lymphs (auto) Nucleated RBC % ESR PT INR APTT Sodium Potassium Chloride Carbon Dioxide Anion Gap BUN Creatinine Estim Creat Clear Calc Est GFR (MDRD) Af Amer Est GFR (MDRD) Non-Af BUN/Creatinine Ratio Glucose Calcium Lactate Dehydrogenase Total Creatine Kinase C-React Prot Ext Range Total Protein (PEP) Aldolase FSH Luteinizing Hormone Prolactin Cortisol 7.10 23.80 H ACTH IgG IgA IgM Albumin (ASA) Albumin/Globulin (ASA) Uycoc-9-Iqmbioxjf ASA Jikxd-0-Ffahckbzd ASA Beta-Globulins (ASA) Gamma Globulins (ASA) ASA M-Prince Rheumatoid Factor JOHN Screen Pending KANE-1 Antibody Pending SS-A/Ro IgG Antibody Pending SS-B/La IgG Antibody Pending Sm (Carr) Antibody Pending ROLL OR TAPE EDGE MACHINE OPERATOR Antibody Pending Scl-70 Scleroderma Ab Pending Double Strand DNA Ab Pending Centromere B Antibody Pending Histone IgG Antibody Blood Type Antibody Screen 08/12/19 08/12/19 08/13/19 13:50 13:50 05:16 WBC 5.7 RBC 2.48 L Hgb 7.6 L Hct 23.5 L MCV 94.8 MCH 30.6 MCHC 32.3 RDW Std Deviation 45.1 H RDW Coeff of Lencho 13.2 Plt Count 174 MPV 9.9 Immature Gran % (Auto) 0.400 Neut % (Auto) 54.8 Lymph % (Auto) 32.2 [place] % (Auto) 7.6 Eos % (Auto) 4.6 Baso % (Auto) 0.4 Absolute Neuts (auto) 3.1 Absolute Lymphs (auto) 1.83 Nucleated RBC % 0 ESR PT INR APTT Sodium Potassium Chloride Carbon Dioxide Anion Gap BUN Creatinine Estim Creat Clear Calc Est GFR (MDRD) Af Amer Est GFR (MDRD) Non-Af BUN/Creatinine Ratio Glucose Calcium Lactate Dehydrogenase Total Creatine Kinase C-React Prot Ext Range Total Protein (PEP) Pending Aldolase Pending FSH Luteinizing Hormone Prolactin Cortisol 25.00 H ACTH IgG Pending IgA Pending IgM Pending Albumin (ASA) Pending Albumin/Globulin (ASA) Pending Yttxb-7-Ejtxuuooi ASA Pending Hunnf-2-Dfojdzsyn ASA Pending Beta-Globulins (ASA) Pending Gamma Globulins (ASA) Pending ASA M-Prince Pending Rheumatoid Factor JOHN Screen KANE-1 Antibody SS-A/Ro IgG Antibody SS-B/La IgG Antibody Sm (Carr) Antibody ROLL OR TAPE EDGE MACHINE OPERATOR Antibody Scl-70 Scleroderma Ab Double Strand DNA Ab Centromere B Antibody Histone IgG Antibody Blood Type Antibody Screen 08/13/19 08/13/19 08/13/19 05:16 05:16 05:16 WBC RBC Hgb Hct MCV MCH MCHC RDW Std Deviation RDW Coeff of Lencho Plt Count MPV Immature Gran % (Auto) Neut % (Auto) Lymph % (Auto) [place] % (Auto) Eos % (Auto) Baso % (Auto) Absolute Neuts (auto) Absolute Lymphs (auto) Nucleated RBC % ESR 24 PT 12.8 INR 1.0 APTT 30.2 Sodium 140 Potassium 3.9 Chloride 105 Carbon Dioxide 28.0 Anion Gap 7 BUN 28 H Creatinine 1.31 H Estim Creat Clear Calc 43.82 Est GFR (MDRD) Af Amer 54 L Est GFR (MDRD) Non-Af 44 L BUN/Creatinine Ratio 21.4 H Glucose 128 H Calcium 8.6 Lactate Dehydrogenase Total Creatine Kinase C-React Prot Ext Range Total Protein (PEP) Aldolase FSH Luteinizing Hormone Prolactin Cortisol ACTH IgG IgA IgM Albumin (ASA) Albumin/Globulin (ASA) Vwhvu-4-Eywyqmuxq ASA Hawal-1-Nxqgnzkmt ASA Beta-Globulins (ASA) Gamma Globulins (ASA) ASA M-Prince Rheumatoid Factor JOHN Screen KANE-1 Antibody SS-A/Ro IgG Antibody SS-B/La IgG Antibody Sm (Carr) Antibody ROLL OR TAPE EDGE MACHINE OPERATOR Antibody Scl-70 Scleroderma Ab Double Strand DNA Ab Centromere B Antibody Histone IgG Antibody Blood Type Antibody Screen 08/13/19 08/13/19 08/13/19 05:16 05:16 05:16 WBC RBC Hgb Hct MCV MCH MCHC RDW Std Deviation RDW Coeff of Lencho Plt Count MPV Immature Gran % (Auto) Neut % (Auto) Lymph % (Auto) [place] % (Auto) Eos % (Auto) Baso % (Auto) Absolute Neuts (auto) Absolute Lymphs (auto) Nucleated RBC % ESR PT INR APTT Sodium Potassium Chloride Carbon Dioxide Anion Gap BUN Creatinine Estim Creat Clear Calc Est GFR (MDRD) Af Amer Est GFR (MDRD) Non-Af BUN/Creatinine Ratio Glucose Calcium Lactate Dehydrogenase 238 Total Creatine Kinase 172 C-React Prot Ext Range 63.80 H Total Protein (PEP) Aldolase FSH 47.8 Luteinizing Hormone 25.0 Prolactin 34.9 Cortisol ACTH IgG IgA IgM Albumin (ASA) Albumin/Globulin (ASA) Yloez-3-Fwcrjyoni ASA Snzmh-8-Updghnpkp ASA Beta-Globulins (ASA) Gamma Globulins (ASA) ASA M-Prince Rheumatoid Factor < 10.0 JOHN Screen KANE-1 Antibody SS-A/Ro IgG Antibody SS-B/La IgG Antibody Sm (Carr) Antibody ROLL OR TAPE EDGE MACHINE OPERATOR Antibody Scl-70 Scleroderma Ab Double Strand DNA Ab Centromere B Antibody Histone IgG Antibody Blood Type Antibody Screen 08/13/19 08/13/19 08/13/19 05:30 08:40 09:36 WBC RBC Hgb Hct MCV MCH MCHC RDW Std Deviation RDW Coeff of Lencho Plt Count MPV Immature Gran % (Auto) Neut % (Auto) Lymph % (Auto) [place] % (Auto) Eos % (Auto) Baso % (Auto) Absolute Neuts (auto) Absolute Lymphs (auto) Nucleated RBC % ESR PT INR APTT Sodium Potassium Chloride Carbon Dioxide Anion Gap BUN Creatinine Estim Creat Clear Calc Est GFR (MDRD) Af Amer Est GFR (MDRD) Non-Af BUN/Creatinine Ratio Glucose Calcium Lactate Dehydrogenase Total Creatine Kinase C-React Prot Ext Range Total Protein (PEP) Aldolase Cancelled FSH Luteinizing Hormone Prolactin Cortisol ACTH Pending IgG IgA IgM Albumin (ASA) Albumin/Globulin (ASA) Ydhap-1-Hnbzvqqvr ASA Tmyoa-6-Yuxhfiqpi ASA Beta-Globulins (ASA) Gamma Globulins (ASA) ASA M-Prince Rheumatoid Factor JOHN Screen KANE-1 Antibody SS-A/Ro IgG Antibody SS-B/La IgG Antibody Sm (Carr) Antibody ROLL OR TAPE EDGE MACHINE OPERATOR Antibody Scl-70 Scleroderma Ab Double Strand DNA Ab Centromere B Antibody Histone IgG Antibody Blood Type A POSITIVE Antibody Screen NEGATIVE 08/13/19 09:40 WBC RBC Hgb Hct MCV MCH MCHC RDW Std Deviation RDW Coeff of Lencho Plt Count MPV Immature Gran % (Auto) Neut % (Auto) Lymph % (Auto) [place] % (Auto) Eos % (Auto) Baso % (Auto) Absolute Neuts (auto) Absolute Lymphs (auto) Nucleated RBC % ESR PT INR APTT Sodium Potassium Chloride Carbon Dioxide Anion Gap BUN Creatinine Estim Creat Clear Calc Est GFR (MDRD) Af Amer Est GFR (MDRD) Non-Af BUN/Creatinine Ratio Glucose Calcium Lactate Dehydrogenase Total Creatine Kinase C-React Prot Ext Range Total Protein (PEP) Aldolase FSH Luteinizing Hormone Prolactin Cortisol ACTH IgG IgA IgM Albumin (ASA) Albumin/Globulin (ASA) Wkfte-9-Hxtzjbnln ASA Pyxfc-7-Jmgenyzch ASA Beta-Globulins (ASA) Gamma Globulins (ASA) ASA M-Prince Rheumatoid Factor JOHN Screen KANE-1 Antibody Pending SS-A/Ro IgG Antibody SS-B/La IgG Antibody Sm (Carr) Antibody ROLL OR TAPE EDGE MACHINE OPERATOR Antibody Scl-70 Scleroderma Ab Double Strand DNA Ab Centromere B Antibody Histone IgG Antibody Pending Blood Type Antibody Screen POC Glucose 08/13/19 08/13/19 08/12/19 11:13 05:36 23:42 POC Glucose 103 126 H 80 08/12/19 08/12/19 08/12/19 23:11 22:22 16:50 POC Glucose 61 L 70 203 H Assessment/Plan All Active Problems Toe fracture, right (Acute) Ankle fracture (Acute) Falls (Acute) Neuropathy (Acute) History of stroke (Acute) Hypotension (Acute) ARF (acute renal failure) (Acute) The patient is a 58 year old F with PMH HTN, HLD, DM, DM neuropathy, H/O stroke (right MCA and B/L SALES OPERATIONS 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 Per patient she got up in the middle of the night and probably had a mechanical fall, resulting in right ankle fracture for which she is scheduled to undergo surgery this afternoon. Per patient she has had balance issues due to her neuropathy, falls about once a month, has chronic LE weakness probably from her neuropathy, denies any thigh pain, but has numbness in the legs and burning pain in her feet. Per patient she is on Amitriptyline and Cymbalta from her PCP for neuropathy. Denies any neck pain, new onset low back pain or radicular symptoms. Denies any difficulty in getting up from sitting position. Per patent she lives alone, uses walker to ambulate outside house, drives locally and has home health for assistance with her ADLs. Total CK level 172 (N). Impression Falls DM neuropathy- Balance issues H/O stroke and carotid stenosis H/O Lumbar surgery, R/O cervical compressive etiology Less likely to be myopathy/myositis at present-has some mild thigh muscle atrophy, total CK and LDH is normal. Awaiting Aldolase level. Plan -MRI brain w/o contrast -MRI C spine w/o contrast -MRI L spine w/o contrast -PT/OT and Balance therapy -Vascular surgery consult for carotid stenosis -On Plavix and Statins -Stroke risk factors discussed and stroke education provided -Goal BP < 130/80 mmHg and goal Hba1c < 7% -Discussed case with hospitalist Dr. Bashir who is concerned for possible underlying myositis, at present clinically less likely but patient might be getting muscle biopsy too when she is getting ankle surgery and results can be followed up. -Further evaluation of neuropathy as outpatient. EMG/NCS both LE as outpatient -Further medical management per hospitalist recommendation. Has chronic anemia and hypotension, being worked up by hospitalist -Rheumatology work up per hospitalist team pending. -GI/DVT prophylaxis -Fall precautions -Follow up with Neurology as outpatient. -Please call with questions if any -Thank you for allowing us to participate in patient's care and management Code Visit Inpatient E&M: [id number] Init Hosp L3
--- NOTE | 2019-08-13 13:00 | NURSING ---
pt off of floor at surgery
[2019-08-13] MEDS: Lactated Ringers 1,000 ML 100 ML IV ×2 (13:20→17:15)
--- NOTE | 2019-08-13 14:20 | RAD_ITS ---
STUDY: X-RAY - RIGHT ANKLE REASON FOR EXAM: Female, 58 years old. ORIF right ankle. TECHNIQUE: 5 view(s) of the ankle. COMPARISON: 08/10/2019 radiographs. FINDINGS: Fluoroscopic images reveal ORIF medial malleolus fracture. Hardware intact, alignment near anatomic, no evidence of complication. Fluoroscopy time was 46 seconds, dose 1.86 mGy. RAD/Ankle min 3 Views IMPRESSION: ORIF medial malleolus fracture with no apparent complication. Electronically Signed: Bill Lucero, at 18:42 EDT Tel , Service support ,
--- NOTE | 2019-08-13 14:20 | MUSA_PTH ---
PATIENT: BILL CHOI LOC: MS3 U#:[id number] AGE/SX: 58/F ROOM: MS306 RE08/10/[address]: Dr. Abbie Bashir DO : 1960 BED: 1 DIS: 08/15/2019 SPEC #: [id number] RECD: 08/13/19 17:13 STATUS: DOLORES KRISTI #: [id number] JENNIFER: 08/13/19 14:[address]: Dipika Cervantes DEPT: SURGICAL PATHOLOGY RECD BY: Elias Hill ENTERED: 08/14/19 08:16 SP TYPE: MUSCLE BX OTHR DR: DO Dr. Zeke Horton MD Dr. Jordan Garrison, DO Dr. Ramnath S Ramanathan, MD Tissues: MUSCLE OF.. Procedures: Spec St Grp II (ACH) Biopsy ACH HEADER OPERATION: ORIF ankle, muscle biopsy right calf PRE-OP DIAGNOSIS: Right displaced ankle fracture and weakness; rule out myositis TISSUE SUBMITTED: Muscle biopsy - right calf MICROSCOPIC DIAGNOSIS Muscle, calf, biopsy: Skeletal muscle with mild inflammation (see Microscopic Description and Comment). Marginal preservation of muscle. COMMENT The biopsy has marginally adequate preservation. There are frequent atrophic fibers noted; however, the significance of these atrophic fibers is uncertain given the proximity to fascia in the specimen. The clinical history of concurrent fracture repair also raises the question of the inflammation and morphology in the specimen is due to the operative intervention or if histopathologic features represent a separate underlying etiology of the muscle itself. No specific findings of dermatomyositis or inclusion body myositis are seen. There clearly is inflammation present in the muscle; however, in this clinical setting, it is difficult to definitively rule in or rule out a concurrent myositis (polymyositis or other). Clinical correlation is recommended. CLINICAL INFORMATION: Additional information obtained from faxed medical records including operative report: Patient with history of CVA and residual right-sided weakness, hypertension, trigeminal trophic syndrome and diabetes mellitus with multiple right foot fractures after a fall. The procedure was open reduction and internal fixation of right ankle with syndesmotic fixation and short leg splint. Following the main operative intervention, a separate incision was made over the gastrocnemius and a muscle biopsy taken. MICROSCOPIC DESCRIPTION The specimen consists of a well oriented portion of skeletal muscle with a marked variation in fiber size. The overall preservation of the specimen is somewhat marginal. CD45 stain performed with appropriate positive and negative controls show lymphocytes diffusely distributed in the endomysium. There is no evidence of vasculitis. There are frequent atrophic fibers. The tissue, particularly that in the formalin fixed, paraffin-embedded sections contain fascia. There are no definitive degenerating, regenerating or hypertropic fibers. Some fibers contain internalized nuclei. Trichrome stain highlights some reddish deposits, the significance of these are uncertain. These deposits do not appear to have the usual morphology of normal and rods. It is possible that they are artefactual. ATPase stains performed at pH 4.6 and pH 9.4 shows that the fibers do not type well. The lack of typing is likely due to the preservation artifact. NADH and SDH stain show a moth-eaten appearance. LI stain shows no evidence of LI-negative fibers. PAS and Oil red O stains show no evidence of increased glycogen or lipid deposition, respectively. GROSS DESCRIPTION The specimen is sent entirely to [facility] for diagnosis. The specimen consists of a muscle biopsy received fresh, sutured, on saline-dampened gauze on ice. The specimen is pale pink and measures 1.6 x 0.7 x 0.3 cm. Power Plant Mechanic portions are submitted for histochemistry, light microscopy and electron microscopy.
[2019-08-13] MEDS: Vancomycin IV 1,000 MG/200 ML BAG 200 MG IV (15:00)
--- NOTE | 2019-08-13 17:12 | PCM.OPRPT ---
Report of Operation Date of Procedure: 08/13/19 Pre-Operative Diagnosis: right lanisennobaudilio, 2-4 nondisplaced metatarsal fractures Post-Operative Diagnosis: same Surgery/Procedure Performed:: orif right ankle with syndesmotic fixation and short leg splint chiropractic physician: Elton Jewell Type of Anesthesia:: General Anesthesiologist: Pepito Gaines Specimen's removed: gastroc muscle to r/o myositis Estimated Blood Loss (mL): min Fluids Replaced: 1500cc lr Description of Procedure: Preop note Patient is a 58-year-old with multiple comorbid conditions who had a stroke on the right lower right side and weakness and neuropathy she has difficult time ambulating as it is she is states she was getting up to go the bathroom and fell and and twisted her ankle. 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 Risk benefits and alternatives were discussed with patient. Patient also had a left femur fracture by standing so questionable osteoporosis which is also being evaluated and worked up. Patient also has questionable weakness anemia may be of a chronic disease and she is being worked up from autoimmune disease as well. Risk benefits and alternatives surgery were discussed the patient. Risks including but not limited to blood loss, blood clot, infection, neurovascular, failure procedure, loss of life and loss of limb. Patient is aware would like to proceed with right ankle open reduction internal fixation and will do muscle biopsy as well. Operative note Patient seen and examined preoperative holding area. Right leg was marked. Patient brought to the operating room and placed supine on the operating table. Signed, anesthesia, antibiotics were administered. The right leg was prepped and draped in usual sterile fashion with a tourniquet around her upper thigh. Patient has a history of MRSA so vancomycin was given. We marked out our incision for medial malleolus and ORIF. Timeout was performed. Then use a 15 blade to cut through skin dissected down to level the fracture with tenotomies we then debrided the fracture site her bone was quite osteoporotic and brittle and shredded even with a little bit of curette curetting. We placed a guidewire up through the center of the fracture of reducing with pointed forceps and while placing the screw the bone did split. We then converted to a hook plate. We bent the plate to preserve blood supply we then placed the hook over the medial mall piece and then secured it proximally with two 3.5 screws measured currently Synthes set. We then moved to the lateral side and placed 2 syndesmosis screws across this was syndesmosis was obviously disrupted from the Maisonneuvvadim is preoperatively also got an AP of her knee which showed a proximal fibula fracture. We placed to fully threaded 3 5 screws across her fibula and tibia after a pointed reduction clamps reduce her mortise. We then irrigated all the initial incision with copious muscle sterile saline. We then closed the skin with 2-0 Vicryl and van on both incisions we then moved to the gastroc place where patient had stated that she was weak we made a 1 inch incision we then dissected down tenotomies level the fascia the fascia was then excised me is we then placed a 2-0 Vicryl through the belly middle of the muscle of the gastroc we then ensure that we had no vessels and neurovascular structures running truncated little more than a centimeter and a half in length and 0.8 cm in width to send to pathology for further evaluation for myositis. Please note that we do not have muscle evaluation here with sending the tissue to [facility] and this was discussed with pathology prior to the case. This incision was also irrigated with copious nonsterile saline and the incision closed with 402 0 Vicryl and van. Sterile dressings were applied. Patient tourniquet was to let down for a total working time of 120 minutes. Patient tolerated procedure well no comp occasions [facility] recovery room in stable condition. Postoperative Nonweightbearing for 6 to 8 weeks in the right lower extremity Necessary for osteoporosis work-up as even drilling across her tibiofibula joint was quite easy to drill thru with poor bone quality of fracture med mall as well nwb rle heparin vanco med mngmt dispo planning This note was generated with [employer] dictation software. It may contain incorrect words, spelling, and punctuation that were not noted in checking the note before signing.
[2019-08-13 17:40] LABS: Bedside Glucose 154 mg/dL (70-110)
--- NOTE | 2019-08-13 18:55 | PCM.RX.CS ---
Consult Pharmacy has been consulted to manage selected antiobiotic: Vancomycin Type of Consult: New start Suspected Infection: Other Prior Doses of Antibiotics Received/Current Regimen: VANCOMYCIN 1000MG IV INRAOP X1 08/13/19 @1500 Labs: Sodium 140 mmol/L (136-145) 08/13/19 05:16 Potassium 3.9 mmol/L (3.5-5.1) 08/13/19 05:16 Chloride 105 mmol/L (98-107) 08/13/19 05:16 Carbon Dioxide 28.0 mmol/L (21.0-32.0) 08/13/19 05:16 Anion Gap 7 (5-15) 08/13/19 05:16 BUN 28 mg/dL (7-18) H 08/13/19 05:16 Creatinine 1.31 mg/dL (0.55-1.02) H 08/13/19 05:16 Est GFR (MDRD) Af Amer 54 mL/min (>60) L 08/13/19 05:16 Est GFR (MDRD) Non-Af 44 mL/min (>60) L 08/13/19 05:16 BUN/Creatinine Ratio 21.4 RATIO (10-20) H 08/13/19 05:16 Glucose 128 mg/dL (74-106) H 08/13/19 05:16 Microbiology: Microbiology 08/13/19 10:15 Stool Stool Occult Blood (ENEDELIA) - Final Occult Blood Positive 08/10/19 19:00 Urine, Catheterized Urine Culture - Final Culture exhibits no growth. Weight used for dosin kg Estimated Creatinine Clearance: 44 ML/MIN Goal Trough: 10-15 mcg/mL Pharmacy Plan for Drug Dosing: PLAN/RECOMMENDATIONS 1. Vancomycin 1500mg IV Q24hrs to start 08/14/19 @1500 2. trough prior to 3rd total dose per protocol 08/15/19 @1430 3. Pharmacy Service will continue to monitor and adjust dosing as required.
[2019-08-13 20:31] LABS: Osmolality, Urine 289 mOsm/KG
[2019-08-13] MEDS: Heparin Injection (Vial) 5,000 UNIT/ML VIAL 5000 UNIT SC (22:00)
[2019-08-13] MEDS: tiZANidine HCl 2 MG Tablet 4 MG PO (22:01)
[2019-08-13] MEDS: Acetaminophen 500 MG Tablet 1000 MG PO (22:01)
[2019-08-13] MEDS: Atorvastatin Calcium 40 MG Tablet PO (22:02)
[2019-08-13] MEDS: Amitriptyline 25 MG Tablet PO (22:02)
[2019-08-14] VITALS (7 sets, daily range): BP systolic 84–122; BP diastolic 52–100; PULSE 96–105; RESP 16–18; TEMP 36.6–38.6; O2SAT 95–100
[2019-08-14] MEDS: Morphine 4 MG/ML Syringe IV (01:03)
[2019-08-14] MEDS: oxyCODONE 5 MG Tablet 10 MG PO ×4 (03:31→16:43)
[2019-08-14] MEDS: Levothyroxine 88 MCG Tablet PO (04:49)
[2019-08-14] MEDS: Acetaminophen 500 MG Tablet 1000 MG PO ×3 (04:50→21:18)
[2019-08-14] MEDS: tiZANidine HCl 2 MG Tablet 4 MG PO ×3 (04:50→21:18)
[2019-08-14] MEDS: Dext 5%-0.45% NS 1,000 ML 100 ML IV ×2 (04:52→21:17)
[2019-08-14] MEDS: Insulin Lispro 100 UNIT/ML INSULN.PEN SC ×2 (06:43→11:46)
[2019-08-14] MEDS: Carvedilol 12.5 MG Tablet PO (06:43)
[2019-08-14 06:50] LABS: Bedside Glucose 237 mg/dL (70-110)
[2019-08-14 07:35] LABS: Hematocrit 25.3 % (37-47)
[2019-08-14 07:54] LABS: Albumin, Serum 3.3 g/dL (3.2-5.0); BUN 13 mg/dL (7-18); BUN/Creat Ratio 13.3 RATIO (10-20); Calcium,Total 9.1 mg/dL (8.5-10.1); Chloride 103 mmol/L (98-107); Creatinine, Serum 0.98 mg/dL (0.55-1.02); EST Glomerular Filtration Rate 62 mL/min (>60); Est Glom Filt Rate - Afr Amer 75 mL/min (>60); Estimated Creatinine Clearance 58.58 ml/min; Glucose 137 mg/dL (74-106); Potassium 4.2 mmol/L (3.5-5.1); Sodium Level 137 mmol/L (136-145)
[2019-08-14] MEDS: Pantoprazole Sodium 40 MG Tablet PO ×2 (07:55→21:18)
[2019-08-14] MEDS: Multivitamins,Therapeutic Tablet 1 TABLET PO (07:56)
[2019-08-14] MEDS: Loratadine 10 MG Tablet PO (07:56)
[2019-08-14] MEDS: Senna/Docusate Sodium 1 Tablet PO ×2 (07:56→21:18)
[2019-08-14] MEDS: Magnesium Oxide 400 MG Tablet PO (07:56)
[2019-08-14] MEDS: Clopidogrel Bisulfate 75 MG Tablet PO (07:57)
[2019-08-14] MEDS: Calcium Carb/Vitamin D 1 TABLET Tablet PO (07:57)
[2019-08-14] MEDS: DULoxetine Hcl 60 MG Capsule PO (07:58)
--- NOTE | 2019-08-14 08:02 | NURSING ---
am meds given at this time per pt request as she takes at home
--- NOTE | 2019-08-14 09:43 | CASEMGMT ---
Social Work Note SW met with pt and informed pt that she is able to discharge to TCU pending pre-cert. Pt states understanding. 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
--- NOTE | 2019-08-14 10:37 | PN_ITS ---
Patient Problems: Active and Suspected Problems Toe fracture, right (Acute) Ankle fracture (Acute) Falls (Acute) Neuropathy (Acute) History of stroke (Acute) Subjective: Postoperative day #1 All events of the past 24 hours of been reviewed. Blood pressure last night at bedtime was 188/76 and she received Labetalol. Blood pressure this morning was 94/52. Temp was 101.5 at approximately 2:30 AM but this morning was 98.2. She received 1 g of Tylenol at 5 AM. UA at admission was negative. All lab was personally reviewed. Hemoglobin is stable at 8.0 today. BMP shows a creatinine of 0.98. Blood sugars are well controlled. ESR was 24 yesterday and the CRP was 63.8. LDH is 238 and the total CK was normal at 172. RA is less than 10. She is postmenopausal and her FSH and LH are appropriately elevated. Prolactin is mildly elevated. Aldolase, JOHN, anti- Kane antibody, antihistone antibody, urine protein electrophoresis and serum protein electrophoresis are pending. Urine osmolality was 289. Will be non-weight bearing for the next 6-8 weeks. Bone was soft when drilling through it at the time of surgery Stool was heme + Pain is adequately managed. Objective: PHYSICAL EXAM: GENERAL: seems a little groggy this AM, slow to answer questions, oriented X 3, Cooperative, NAD ORAL: moist mucosa, no mucosal lesions NECK: No JVD, supple, trachea midline LUNGS: CTA, symmetric chest expansion HEART: RRR, Normal S1 and S2, no rub, no gallop ABDOMEN: soft, NT, ND, BS present, no guarding with palpation EXTREMITIES: no edema, no cyanosis, toes are warm on both feet and she has intact sensation SKIN: No rashes, no breakdown NEUROLOGIC: no focal neurologic deficits PSYCH: appropriate, normal affect, pleasant - Physical Exam Vital Signs Temp Pulse Resp BP Pulse Ox 98.2 F 98 16 94/52 L 95 08/14/19 07:27 08/14/19 07:27 08/14/19 07:27 08/14/19 07:27 08/14/19 08:03 Oxygen Flow Rate (L/min) 2 Oxygen Delivery Method Room Air Weight: 232 lb Body Mass Index (BMI) 37.5 Finger Stick Blood Glucose 154 Intake and Output for Last 24 Hours 08/12/19 08/13/19 08/14/19 23:59 23:59 23:59 Intake Total 880 / 1320 3490 / 3490 2311.67 / 2311.67 Output Total 3050 / 3550 2235 / 2235 300 / 300 Balance -2170 / -2230 1255 / 1255 Microbiology Past 72 Hours 08/13/19 10:15 Stool Occult Blood (ENEDELIA) - Final Stool Occult Blood Positive 08/10/19 19:00 Urine Culture - Final Urine, Catheterized Culture exhibits no growth. Laboratory Tests Past 24 Hrs 08/13/19 08/13/19 08/13/19 05:16 05:30 08:40 Hgb Hct Sodium Potassium Chloride Carbon Dioxide BUN Creatinine Estim Creat Clear Calc Est GFR (MDRD) Af Amer Est GFR (MDRD) Non-Af BUN/Creatinine Ratio Glucose Calcium Phosphorus Albumin Aldolase Cancelled FSH 47.8 Luteinizing Hormone 25.0 Prolactin 34.9 ACTH Pending Urine Myoglobin Urine Osmolality Urine Total Protein Urine Albumin U Uonjz-1-Tzjqckqj U Wacvp-0-Frxxhbio U Beta Globulin U Gamma Globulin U PEP M-Prince KANE-1 Antibody Histone IgG Antibody Blood Type Antibody Screen 08/13/19 08/13/19 08/13/19 09:36 09:40 20:00 Hgb Hct Sodium Potassium Chloride Carbon Dioxide BUN Creatinine Estim Creat Clear Calc Est GFR (MDRD) Af Amer Est GFR (MDRD) Non-Af BUN/Creatinine Ratio Glucose Calcium Phosphorus Albumin Aldolase FSH Luteinizing Hormone Prolactin ACTH Urine Myoglobin Pending Urine Osmolality Urine Total Protein Pending Urine Albumin Pending U Lhpvx-9-Ykcdhykt Pending U Fcksk-8-Ipaijqcq Pending U Beta Globulin Pending U Gamma Globulin Pending U PEP M-Prince Pending KANE-1 Antibody Pending Histone IgG Antibody Pending Blood Type A POSITIVE Antibody Screen NEGATIVE 08/13/19 08/14/19 08/14/19 20:00 07:25 07:25 Hgb 8.0 L Hct 25.3 L Sodium 137 Potassium 4.2 Chloride 103 Carbon Dioxide 30.0 BUN 13 Creatinine 0.98 Estim Creat Clear Calc 58.58 Est GFR (MDRD) Af Amer 75 Est GFR (MDRD) Non-Af 62 BUN/Creatinine Ratio 13.3 Glucose 137 H Calcium 9.1 Phosphorus 3.0 Albumin 3.3 Aldolase FSH Luteinizing Hormone Prolactin ACTH Urine Myoglobin Urine Osmolality 289 Urine Total Protein Urine Albumin U Ekwbo-0-Nwdzmghj U Wikmr-1-Hbmkqyto U Beta Globulin U Gamma Globulin U PEP M-Prince KANE-1 Antibody Histone IgG Antibody Blood Type Antibody Screen POC Glucose 08/14/19 08/13/19 08/13/19 06:41 17:37 11:13 POC Glucose 237 H 154 H 103 Medical Necessity - Tobacco Use Smoking Status: Former smoker Assessment/Plan All Active Problems Toe fracture, right (Acute) Ankle fracture (Acute) Falls (Acute) Neuropathy (Acute) History of stroke (Acute) Hypotension (Acute) ARF (acute renal failure) (Acute) Impressions 1. Fall resulting in nondisplaced fractures of the ASIS of the second, third and fourth metatarsals. She has a displaced fracture of the right medial malleolus and has been seen by Dr. Cervantes who plans surgery on Sunday if the swelling has improved. She has also fractured her Left femur in the past.....has never had a BMD test. Vitamin D is within normal limits. We will check a TSH and PTH. I suspect she may have significant osteoporosis. PTH is normal, TSH is low but the T3 and the T4 are WNL. 2. Has had what sounds like multiple falls in the past - etiology. I am concerned about the sedating medications she is taking and I am also concerned she may have AMBER. The overnight trending pulse ox is abnormal and she will need an OP sleep study 3. Depression - on max dose Cymbalta and effexor? Effexor has been discontinued and will continue the Cymbalta. consult. Recommended she seek counselling. She is also on a TCA at bedtime which would not be a good idea if she has sleep apnea and it is untreated 4. Carotid artery stenosis with a history of stroke in the past.....the stroke was 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 5. Hypotension at admission - etiology? dehydration? too many antihypertensives? this keeps recurring at times......antihypertensives are on hold. 6. N/N anemia - chronic...heme + stool 7. BL LE weakness with falls - WHY? The stroke she had was embolic and the areas were very small......I doubt this is causing the weakness and multiple falls. 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 Avoid steroids until all the testing is complete. 8. I suspect she may have secondary hypothyroidism......I suspect she may have diabetes insipidus also.....nephrogenic vs central? Will check 24 H urine...if volume > 3 L will continue W/U. ACTH is low 6. Hyperlipidemia/hypertension/diabetic peripheral polyneuropathy/coronary artery disease/diabetes mellitus type 2/morbid obesity/diverticulosis/hypothyroidism- complicate management. Will restart the coreg, and a lower dose of Lisinopril. Continue to hold the HCTZ in light of the hypotension at admission. Restart the Clonidine to prevent rebound HTN but at a lower dose. 7. Continue heparin for DVT prophylaxis. I reviewed Dr. Reynolds's note....MRI of the brain, C-spine and the LS spine today and EMG and ENG's as OP May need endoscopy to identify the source of the heme + stool Will need to follow up with endocrine....schedule and appt with Dr. Obrien. Needs a BMD. Will start bisphosphonate prior to DC. W/U for CTD is in progress Code Visit Inpatient E&M: 71009 Subs Hosp L2
[2019-08-14 11:26] LABS: Absolute Lymphocyte Count 1.71 X10^3/uL (0.83-4.51); Absolute Neutrophil Count 4.6 X10^3/uL (2.0-7.7); Basophil# 0.04 X10^3/uL; Basophil% 0.6 % (0-1); Eosinophil# 0.16 X10^3/uL; Eosinophils% 2.2 % (0-5); Hematocrit 25.9 % (37-47); Hemoglobin 8.3 g/dL (12.0-15.0); Lymphocyte # 1.71 X10^3/ul (4.0); Lymphocyte % 23.8 % (19-41); Mean Corpuscular Hgb 30.9 pg (27.0-32.0); Mean Corpuscular Volume 96.3 fL (81-99); Monocyte# 0.66 X10^3/uL; Monocyte% 9.2 % (0-10); NRBC Flagged by Analyzer 0 % (0-5); Neutrophil # 4.58 X10^3/uL (2.7-7.7); Neutrophil % 63.8 % (47-70); Platelet Count 201 K/mm3 (150-450); RBC Distribution Width CV 13.1 % (11.6-14.6); RBC Distribution Width SD 45.8 fl (35.1-43.9); Red Blood Count 2.69 M/mm3 (4.2-5.4); White Blood Count 7.2 K/mm3 (4.4-11.0)
[2019-08-14] MEDS: Heparin Injection (Vial) 5,000 UNIT/ML VIAL 5000 UNIT SC ×2 (11:48→21:18)
[2019-08-14 12:05] LABS: Bedside Glucose 160 mg/dL (70-110)
--- NOTE | 2019-08-14 12:05 | CASEMGMT ---
Addendum entered by Bella Bundy 08/14/19 13:43: PT/OT notes from today are available. CECE placed a call to June in TCU and updated her to submit for pre-cert. Original Note: Social Work Note CECE spoke with June in TCU. June states she will submit for pre-cert once PT/OT evaluations are completed for pt today. CECE spoke with PT/OT who states they will work with pt after lunch. 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
--- NOTE | 2019-08-14 12:10 | RAD_ITS ---
STUDY: X-RAY - LEFT KNEE REASON FOR EXAM: Pain. TECHNIQUE: 2 view(s) of the knee. COMPARISON: None. FINDINGS: There is an intact orthopedic plate and screws transfixing a healed distal femoral fracture. There is no abnormality of alignment of the total knee arthroplasty. There is vascular calcification. RAD/Knee 1 or 2 Views IMPRESSION: Healed distal femoral fracture. No demonstrated abnormality of the total knee arthroplasty. Electronically Signed: Zaheer Stout MD at 14:58 EDT Tel , Service support ,
--- NOTE | 2019-08-14 12:11 | RAD_ITS ---
STUDY: X-RAY - LEFT FOOT CLINICAL: Pain. TECHNIQUE: 2 view(s) of the foot. COMPARISON: Radiographs 08/10/2019. FINDINGS: There are small posterior and plantar calcaneal enthesophytes. Otherwise, unremarkable talus, calcaneus, and tarsal bones. Normal visualized subtalar, talonavicular, calcaneocuboid, tarsal and tarsometatarsal articulations. Normal metatarsi. Normal metatarsophalangeal joint of the great toe. Normal tibial and fibular sesamoid bones. Normal interphalangeal joint of the great toe. Normal phalanges of the great toe. Normal second through fifth metatarsophalangeal joints. Normal interphalangeal joints and phalanges of the lesser toes. The soft tissue structures are unremarkable. RAD/Foot 2 Views IMPRESSION: Calcaneal enthesopathy. Otherwise, unremarkable x-ray examination of the left foot. Electronically Signed: Zaheer Stout MD at 14:44 EDT Tel , Service support ,
--- NOTE | 2019-08-14 12:13 | RAD_ITS ---
STUDY: X-RAY - RIGHT ANKLE REASON FOR EXAM: Pain, follow-up ORIF. TECHNIQUE: 2 view(s) of the ankle. COMPARISON: Radiograph 08/10/2019. FINDINGS: There is an orthopedic plate and screws transfixing a medial malleolar fracture in anatomic alignment and position. There are syndesmotic screws. There is a nondisplaced subtle fracture of the posterior malleolus. There is an ossicle at the distal aspect of the lateral malleolus. Normal tibiotalar articulation and ankle mortise. There are small posterior and plantar calcaneal enthesophytes. The visualized subtalar, talonavicular, calcaneocuboid and tarsal articulations are normal. There are skin van. RAD/Ankle 2 Views IMPRESSION: Anatomic alignment and position of ORIF of medial malleolar fracture. Electronically Signed: Zaheer Stout MD at 14:31 EDT Tel , Service support ,
--- NOTE | 2019-08-14 12:41 | MRI_ITS ---
STUDY: MRI BRAIN WITHOUT CONTRAST REASON FOR EXAM: Female, 58 years old. Post traumatic falls and weakness right greater than left TECHNIQUE: Standardized multiplanar fat and water weighted pulse sequences were obtained. COMPARISON: November 19, 2017 FINDINGS: Normal size of the ventricles and extra-axial spaces for the patient's age. Minor periventricular white matter ischemic changes without mass effect or restricted diffusion.. Mild chronic ischemic changes within the right cerebellar hemisphere. Old deep white matter infarct in the right parietal lobe Normal bilateral basal ganglia. Normal thalami. There is no extra-axial fluid accumulation. Normal flow voids within the major intracranial circulation suggesting patency by spin echo criteria. Normal sella turcica, pituitary gland, infundibular stalk, optic chiasm and hypothalamus. Normal tectal plate and pineal gland. Normal midbrain, lu and medulla. Normal basal cisterns. Normal bilateral temporal bones. Normal bilateral internal auditory canals. No demonstrated orbital abnormality, within the constraints of a routine brain study. Normal visualized paranasal sinuses. Normal calvarium and skull base. Normal visualized soft tissue structures. Normal visualized upper cervical spine. No significant change since prior exam MRI/Brain without Contrast IMPRESSION: No evidence for acute infarct. Mild atrophy and periventricular white matter ischemic changes. Old deep white matter infarct in right parietal lobe and chronic ischemic changes with cerebellum.. Electronically Signed: Nilay London MD at 16:39 EDT , Service support ,
--- NOTE | 2019-08-14 12:42 | MRI_ITS ---
STUDY: MRI CERVICAL SPINE WITHOUT CONTRAST REASON FOR EXAM: Female, 58 years old. Bilateral weakness right greater than left TECHNIQUE: Standardized fat and water weighted pulse sequences were obtained in the sagittal and axial planes. COMPARISON: November 19 2017 FINDINGS: Normal foramen magnum and brainstem-cervical cord junction. Normal craniovertebral junction. Normal anterior atlantoaxial articulation. Normal odontoid process. Decreased cervical lordosis. Normal vertebral bodies and posterior osseous elements. C2-3: Normal endplates. Normal disc height, signal and morphology. Normal central canal and intervertebral neural foramina. C3-4: Mild endplate spurring.. Normal disc height, signal and morphology. Normal central canal. Moderate bilateral neural foraminal encroachment secondary to bony hypertrophy. C4-5: Normal disc space height and endplate spurring. No focal disc protrusion. Normal central canal. Severe bilateral neuroforaminal stenosis secondary to bony hypertrophy C5-6: Narrowed disc space and endplate spurring. No focal disc protrusion. Normal central canal. Severe bilateral neuroforaminal stenosis secondary to bony hypertrophy. C6-7: Mild endplate spurring.. Normal disc height, signal and tiny left paracentral disc protrusion.. Normal central canal and intervertebral neural foramina. C7-T1: Normal endplates. Normal disc height, signal and tiny central disc protrusion.. Normal central canal and intervertebral neural foramina. Normal cervical cord. Normal visualized soft tissue structures. MRI/Spine Cervical (Routine) IMPRESSION: No evidence for acute fracture or other significant bony pathology.. Moderate spondylosis and multilevel spinal stenosis secondary to bony hypertrophy most severe at C4-5 and C5-6 Electronically Signed: Nilay London MD at 16:43 EDT , Service support ,
--- NOTE | 2019-08-14 12:43 | MRI_ITS ---
STUDY: MRI LUMBAR SPINE WITHOUT CONTRAST REASON FOR EXAM: Female, 58 years old. Falls and weakness right greater than left TECHNIQUE: Standardized fat and water weighted pulse sequences were obtained in the sagittal and axial planes. COMPARISON: November 19, 2017 FINDINGS: T12-L1: Normal endplates. Normal disc height, hydration and morphology. Normal bilateral facet joints. Normal central canal and bilateral lateral recesses. Normal bilateral intervertebral neural foramina. Normal lumbar lordosis. There is no substantial scoliosis. Normal conus medullaris that terminates at T12-L1 L1-2: Normal endplates. Normal disc height, hydration and morphology. Normal bilateral facet joints. Normal central canal and bilateral lateral recesses. Normal bilateral intervertebral neural foramina. L2-3: Normal endplates. Normal disc height, desiccation and minor annular bulge.. Normal bilateral facet joints. Normal central canal and bilateral lateral recesses. Normal bilateral intervertebral neural foramina. L3-4: Normal endplates. Normal disc height, desiccation and minor annular bulge. Mild facet arthropathy and thickening of ligamenta flava. Normal central canal and bilateral lateral recesses. Mild bilateral neuroforaminal encroachment.. L4-5: Normal endplates. Normal disc height, desiccation and normal. Bilateral facet arthropathy.. Normal central canal and bilateral lateral recesses. Normal bilateral intervertebral neural foramina. L5-S1: Postop changes status post bilateral laminectomy and fusion. Grade 1 spondylolisthesis and spondylolysis . Narrowed disc space with desiccation of the disc and mild bulging disc osteophyte complex.. Normal bilateral facet joints. Normal central canal and bilateral lateral recesses. Severe bilateral neuroforaminal stenosis exaggerated by shortened pedicles. Normal visualized sacral ala. Normal visualized paraspinous soft tissue structures. The postsurgical changes at L5-S1 are new finding since previous exam. No other significant changes MRI/Spine Lumbar (Routine) IMPRESSION: Post surgical changes at L5-S1 Mild spinal stenosis at L3-4 and more pronounced at L5-S1 secondary to disc disease and bony hypertrophy. Electronically Signed: Nilay London MD at 18:19 EDT , Service support ,
[2019-08-14] MEDS: 0.9% NaCl Peripheral Flush Adult/Peds IV ×2 (13:33→16:43)
--- NOTE | 2019-08-14 13:38 | PCM.PN.NEU ---
Patient Problems: Active and Suspected Problems Toe fracture, right (Acute) Ankle fracture (Acute) Falls (Acute) Neuropathy (Acute) History of stroke (Acute) Subjective: Had blood pressure issues and fever overnight. Followed and managed by the hospitalist team. Care discussed with the nursing staff. Patient underwent right ankle ORIF by Dr. Cervantes yesterday 08/13/19. - Physical Exam General: Alert HEENT: Normocephalic Neck: Supple Lungs: Normal air movement Cardiovascular: Normal S1, Normal S2 Abdomen: Bowel Sounds Present Extremities: No cyanosis Neurological: - - Conscious, alert, CN II through XII grossly intact, power 5 x 5 both upper extremities, +4 x 5 left lower extremity (chronic weakness), right lower extremity power could not be examined as patient has right ankle fracture and had surgery yesterday, denies any new onset sensory loss but has chronic sensory loss to light touch both legs below ankle worse on the right as compared to the left, no cerebellar signs, ? mild muscle atrophy in the thigh muscles, gait deferred, reflexes + B/L B/S/T/K/A Psych/Mental Status: Normal Affect Vital Signs Temp Pulse Resp BP Pulse Ox 97.8 F 96 16 113/59 L 100 08/14/19 11:52 08/14/19 11:52 08/14/19 11:52 08/14/19 11:52 08/14/19 11:52 Oxygen Flow Rate (L/min) 2 Oxygen Delivery Method Room Air Weight: 105.233 kg Body Mass Index (BMI) 37.5 Finger Stick Blood Glucose 154 Intake and Output for Last 24 Hours 08/12/19 08/13/19 08/14/19 23:59 23:59 23:59 Intake Total 880 / 1320 3490 / 3490 4180.00 / 4180.00 Output Total 3050 / 3550 2235 / 2235 1150 / 1150 Balance -2170 / -2230 1255 / 1255 3030.00 / 3030.00 Microbiology Past 72 Hours 08/13/19 10:15 Stool Occult Blood (ENEDELIA) - Final Stool Occult Blood Positive 08/10/19 19:00 Urine Culture - Final Urine, Catheterized Culture exhibits no growth. Laboratory Tests Past 24 Hrs 08/13/19 08/13/19 08/14/19 20:00 20:00 07:25 WBC RBC Hgb 8.0 L Hct 25.3 L MCV MCH MCHC RDW Std Deviation RDW Coeff of Lencho Plt Count MPV Immature Gran % (Auto) Neut % (Auto) Lymph % (Auto) [place] % (Auto) Eos % (Auto) Baso % (Auto) Absolute Neuts (auto) Absolute Lymphs (auto) Nucleated RBC % Sodium Potassium Chloride Carbon Dioxide BUN Creatinine Estim Creat Clear Calc Est GFR (MDRD) Af Amer Est GFR (MDRD) Non-Af BUN/Creatinine Ratio Glucose Calcium Phosphorus Albumin Urine Myoglobin Pending Urine Osmolality 289 Urine Total Protein Pending Urine Albumin Pending U Bmhqo-6-Himibjgr Pending U Hhfyo-7-Yhqquzbl Pending U Beta Globulin Pending U Gamma Globulin Pending U PEP M-Prince Pending 08/14/19 08/14/19 07:25 07:25 WBC 7.2 RBC 2.69 L Hgb 8.3 L Hct 25.9 L MCV 96.3 MCH 30.9 MCHC 32.0 RDW Std Deviation 45.8 H RDW Coeff of Lencho 13.1 Plt Count 201 MPV 10.0 Immature Gran % (Auto) 0.400 Neut % (Auto) 63.8 Lymph % (Auto) 23.8 [place] % (Auto) 9.2 Eos % (Auto) 2.2 Baso % (Auto) 0.6 Absolute Neuts (auto) 4.6 Absolute Lymphs (auto) 1.71 Nucleated RBC % 0 Sodium 137 Potassium 4.2 Chloride 103 Carbon Dioxide 30.0 BUN 13 Creatinine 0.98 Estim Creat Clear Calc 58.58 Est GFR (MDRD) Af Amer 75 Est GFR (MDRD) Non-Af 62 BUN/Creatinine Ratio 13.3 Glucose 137 H Calcium 9.1 Phosphorus 3.0 Albumin 3.3 Urine Myoglobin Urine Osmolality Urine Total Protein Urine Albumin U Vbikk-4-Zwzhqztl U Xmsop-1-Fcxhqrot U Beta Globulin U Gamma Globulin U PEP M-Prince POC Glucose 08/14/19 08/14/19 08/13/19 11:44 06:41 17:37 POC Glucose 160 H 237 H 154 H Medical Necessity - Tobacco Use Smoking Status: Former smoker Assessment/Plan All Active Problems Toe fracture, right (Acute) Ankle fracture (Acute) Falls (Acute) Neuropathy (Acute) History of stroke (Acute) Hypotension (Acute) ARF (acute renal failure) (Acute) The patient is a 58 year old F with PMH HTN, HLD, DM, DM neuropathy, H/O stroke (right MCA and B/L EMERGENCY ROOM RN (right parietal and B/L occipital infarct)) in November 2017 with chronic B/L LE weakness, Carotid stenosis (Right ICA 50-69% stenosis, left ICA < 50% stenosis on CUS November 2017, Right ICA >70% stenosis and left ICA <50% stenosis on CTA head/neck in November 2017), H/O Lumbar surgery, CAD, H/O C diff infection, Cardiomyopathy, IBS, morbid obesity admitted with fall. Per patient she got up in the middle of the night and probably had a mechanical fall, resulting in right ankle fracture for which she is scheduled to undergo surgery this afternoon. Per patient she has had balance issues due to her neuropathy, falls about once a month, has chronic LE weakness probably from her neuropathy, denies any thigh pain, but has numbness in the legs and burning pain in her feet. Per patient she is on Amitriptyline and Cymbalta from her PCP for neuropathy. Denies any neck pain, new onset low back pain or radicular symptoms. Denies any difficulty in getting up from sitting position. Per patent she lives alone, uses walker to ambulate outside house, drives locally and has home health for assistance with her ADLs. Total CK level 172 (N). Impression Falls DM neuropathy- Balance issues H/O stroke and carotid stenosis H/O Lumbar surgery, R/O cervical compressive etiology Less likely to be myopathy/myositis at present-has some mild thigh muscle atrophy, total CK and LDH is normal. Awaiting Aldolase level. Plan -Await MRI brain w/o contrast, MRI C spine w/o contrast and MRI L spine w/o contrast -PT/OT and Balance therapy -Vascular surgery consult for carotid stenosis -On Plavix and Statins -Stroke risk factors discussed and stroke education provided -Goal BP < 130/80 mmHg and goal Hba1c < 7% -Discussed case with hospitalist Dr. Bashir who is concerned for possible underlying myositis/myopathy, at present clinically less likely but patient got muscle biopsy yesterday during ankle ORIF and results are pending. -Further evaluation of neuropathy as outpatient. EMG/NCS both LE as outpatient -Further medical management per hospitalist recommendation. Has chronic anemia and hypotension, being worked up by hospitalist -Rheumatology work up per hospitalist team pending. -GI/DVT prophylaxis -Fall precautions -Follow up with Neurology as outpatient. -Please call with questions if any -Thank you for allowing us to participate in patient's care and management
[2019-08-14 16:08] LABS: Albumin 3.4 g/dL (2.9-4.4); Alpha-1-Globulins 0.3 g/dL (0.0-0.4); Alpha-2-Globulins 1.1 g/dL (0.4-1.0); Gamma Globulin 0.8 g/dL (0.4-1.8); Immunoglobulin A 101 mg/dL (87-352); Immunoglobulin G 752 mg/dL (700-1600); Immunoglobulin M 112 mg/dL (26-217); PROEL- TOTAL PROTEIN 6.5 g/dL (6.0-8.5)
[2019-08-14 16:08] LABS: ANTINUCLEAR ANTIBODIES DIRECT Positive (Negative); Anti-Centromere B Ab <0.2 AI (0.0-0.9); Anti-Chromatin <0.2 AI (0.0-0.9); Anti-Jo <0.2 AI (0.0-0.9); Anti-Scleroderma-70 AB 1.3 AI (0.0-0.9); RNP Ab <0.2 AI (0.0-0.9); SJOGREN'S Anti-SS-A test < 0.2 AI (0.0-0.9); SJOGREN'S Anti-SS-B test < 0.2 AI (0.0-0.9); Smith Ab <0.2 AI (0.0-0.9)
[2019-08-14 16:56] LABS: Bedside Glucose 116 mg/dL (70-110)
--- NOTE | 2019-08-14 16:58 | NURSING ---
lucy in pharmacy notified than 1500 vanc is not on unit. pt was off unit for a couple hours
--- NOTE | 2019-08-14 20:14 | NURSING ---
Per Lorri in lab, urea nitrogen and creatine 24 urine can be completed off plain jug. Calcium needs to be restarted and keep at room temperature with additive in jug.
[2019-08-14 20:54] LABS: Anti-dsDNA Ab 1 IU/mL (0-9)
[2019-08-14] MEDS: Amitriptyline 25 MG Tablet PO (21:17)
[2019-08-14] MEDS: Atorvastatin Calcium 40 MG Tablet PO (21:19)
[2019-08-14 21:20] LABS: Bacteria 0 SEEN /hpf (None Seen); Mucous, Urine 0 SEEN /hpf (<or=2+); Red Blood Cells-Urine 0 SEEN /hpf (0-5); Squamous Epithelial Cells - UA 0 SEEN /hpf (5-10); White Blood Cells 0 SEEN /hpf (0-5)
[2019-08-14 21:27] LABS: Color, Urine Yellow (Yellow); Glucose, Dipstick Normal (Normal); Ketone-Dipstick Negative (Negative); Leukocyte Esterase-Dipstick Negative /ul (Negative); Nitrite-Dipstick Negative (Negative); Occult Blood-Urine Negative /ul (Negative); Protein-Dipstick Negative (Negative); Urine Bilirubin Dipstick Negative (Negative); Urine Clarity Clear (Clear); Urine Urobilinogen Normal (Normal); Urine pH 6.5 (5.0 - 8.0)
[2019-08-14 21:30] LABS: 24HR UR TOTAL VOLUME 1700 ml; Urine Calcium (Random) < 5.0 (Not Estab.)
[2019-08-14 21:30] LABS: Bedside Glucose 155 mg/dL (70-110)
[2019-08-14 21:42] LABS: 24H Urine Urea. Total Vol. 1700 mL; 24Hr.Lytes Total Volume 1700 mL; Sodium 24 HR UR 114 mmol/24h (40-220); Urea Nitrogen, Urine 328 mg/dL (NO RANGE EST.); Urine Chloride 89 mmol/L (Not Establ.); Urine Chloride / 24 Hours 151 mmol/24h (110-250); Urine Sodium 67 mmol/L (Not Establ.)
[2019-08-14 21:48] LABS: 24HR. Urine Creatinine 0.79 g/24 HR (0.70-1.90)
[2019-08-14 22:10] LABS: Calcium Urine pH Range 2
[2019-08-14 22:50] LABS: Adrenocorticotropic Hormone 5.5 pg/mL (7.2-63.3)
[2019-08-15] MEDS: oxyCODONE 5 MG Tablet 10 MG PO ×3 (02:31→12:45)
[2019-08-15 03:13] VITALS: BP 134/69; PULSE 95; RESP 18; TEMP 37; O2SAT 99
[2019-08-15] MEDS: Acetaminophen 500 MG Tablet 1000 MG PO ×2 (06:49→15:11)
[2019-08-15] MEDS: tiZANidine HCl 2 MG Tablet 4 MG PO ×2 (06:50→15:09)
[2019-08-15] MEDS: Levothyroxine 88 MCG Tablet PO (06:50)
[2019-08-15] MEDS: Dext 5%-0.45% NS 1,000 ML 100 ML IV (06:53)
[2019-08-15 06:55] LABS: Bedside Glucose 102 mg/dL (70-110)
[2019-08-15] MEDS: Multivitamins,Therapeutic Tablet 1 TABLET PO (08:42)
[2019-08-15] MEDS: Magnesium Oxide 400 MG Tablet PO (08:42)
[2019-08-15] MEDS: HYDROcodone Bitartrate/Apap 5/325 Tablet PO (08:45)
[2019-08-15 08:52] LABS: Aldolase 9.1 U/L (3.3-10.3); IMMUNOFIXATION RESULT,S Comment: (.)
[2019-08-15 08:55] VITALS: O2SAT 98
--- NOTE | 2019-08-15 09:47 | CASEMGMT ---
Addendum entered by Bella Bundy 08/15/19 14:41: [facility] placed a call to June in TCU and asked about pre-cert. June states pre-cert hasn't been obtained yet. Physician updated. Original Note: Social Work Note SW placed a call to June in TCU and left her a message informing her that pt is ready for discharge once pre-cert is obtained. 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
--- NOTE | 2019-08-15 09:56 | PN.ORTHO_ITS ---
Patient Problems: Active and Suspected Problems Toe fracture, right (Acute) Ankle fracture (Acute) Falls (Acute) Neuropathy (Acute) History of stroke (Acute) - Physical Exam Vital Signs Temp Pulse Resp BP Pulse Ox 98.6 F 95 18 134/69 H 99 08/15/19 03:13 08/15/19 03:13 08/15/19 03:13 08/15/19 03:13 08/15/19 03:13 Oxygen Flow Rate (L/min) 2 Oxygen Delivery Method Room Air Weight: 232 lb Body Mass Index (BMI) 37.5 Finger Stick Blood Glucose 154 Intake and Output for Last 24 Hours 08/13/19 08/14/19 08/15/19 23:59 23:59 23:59 Intake Total 3490 / 3490 4793.33 / 4793.33 1360 / 1360 Output Total 2235 / 2235 1150 / 1150 2049 / 2049 Balance 1255 / 1255 3643.33 / 3643.33 -690 / -690 Microbiology Past 72 Hours 08/13/19 10:15 Stool Occult Blood (ENEDELIA) - Final Stool Occult Blood Positive 08/10/19 19:00 Urine Culture - Final Urine, Catheterized Culture exhibits no growth. Laboratory Tests Past 24 Hrs 08/12/19 08/12/19 08/13/19 13:35 13:50 05:30 WBC RBC Hgb Hct MCV MCH MCHC RDW Std Deviation RDW Coeff of Lencho Plt Count MPV Immature Gran % (Auto) Neut % (Auto) Lymph % (Auto) [place] % (Auto) Eos % (Auto) Baso % (Auto) Absolute Neuts (auto) Absolute Lymphs (auto) Nucleated RBC % Eos Smear Total Cells Total Protein (PEP) 6.5 Globulin 3.1 Aldolase 9.1 ACTH 5.5 L Urine Color Urine Clarity Urine pH Ur Specific [place] Urine Protein Urine Glucose (UA) Urine Ketones Urine Occult Blood Urine Nitrite Urine Bilirubin Urine Urobilinogen Ur Leukocyte Esterase Urine RBC Urine WBC Ur Squamous Epith Cells Urine Bacteria Urine Mucus Ur Random Sodium Urine Collection Time Ur Collection Duration Urine Total Volume Urine Creatinine Ur Creatinine 24 Hour Ur Sodium 24 Hour Urine Potassium Ur Potassium 24 Hour Urine Chloride Ur Chloride 24 Hour Urine Urea Nitrogen Ur Urea Nitrogen 24 Hr Urine Calcium Ur Calcium 24 Hr IgG 752 IgA 101 IgM 112 Immunofixation Screen Comment: Albumin (ASA) 3.4 Albumin/Globulin (ASA) 1.1 Ebbqw-5-Felfuydqu ASA 0.3 Twzbd-5-Lvwzxscho ASA 1.1 H Beta-Globulins (ASA) 0.8 Gamma Globulins (ASA) 0.8 ASA M-Prince ASA Comments Comment Cycl Citrul Peptide IgG JOHN Screen Positive H KANE-1 Antibody <0.2 SS-A/Ro IgG Antibody < 0.2 SS-B/La IgG Antibody < 0.2 Sm (Carr) Antibody <0.2 USER SUPPORT SPECIALIST Antibody <0.2 Scl-70 Scleroderma Ab 1.3 H Double Strand DNA Ab 1 Centromere B Antibody <0.2 Miscellaneous Test 08/14/19 08/14/19 08/14/19 07:25 20:10 20:10 WBC 7.2 RBC 2.69 L Hgb 8.3 L Hct 25.9 L MCV 96.3 MCH 30.9 MCHC 32.0 RDW Std Deviation 45.8 H RDW Coeff of Lencho 13.1 Plt Count 201 MPV 10.0 Immature Gran % (Auto) 0.400 Neut % (Auto) 63.8 Lymph % (Auto) 23.8 [place] % (Auto) 9.2 Eos % (Auto) 2.2 Baso % (Auto) 0.6 Absolute Neuts (auto) 4.6 Absolute Lymphs (auto) 1.71 Nucleated RBC % 0 Eos Smear Total Cells Total Protein (PEP) Globulin Aldolase ACTH Urine Color Urine Clarity Urine pH Ur Specific [place] Urine Protein Urine Glucose (UA) Urine Ketones Urine Occult Blood Urine Nitrite Urine Bilirubin Urine Urobilinogen Ur Leukocyte Esterase Urine RBC Urine WBC Ur Squamous Epith Cells Urine Bacteria Urine Mucus Ur Random Sodium 67 Urine Collection Time Ur Collection Duration Urine Total Volume 1700 Urine Creatinine Ur Creatinine 24 Hour Ur Sodium 24 Hour 114 Urine Potassium 22.0 Ur Potassium 24 Hour 38.0 Urine Chloride 89 Ur Chloride 24 Hour 151 Urine Urea Nitrogen Ur Urea Nitrogen 24 Hr Urine Calcium Ur Calcium 24 Hr IgG IgA IgM Immunofixation Screen Albumin (ASA) Albumin/Globulin (ASA) Ywlkx-1-Muhgyjrfq ASA Kvmjw-9-Qlohuafei ASA Beta-Globulins (ASA) Gamma Globulins (ASA) ASA M-Prince ASA Comments Cycl Citrul Peptide IgG JOHN Screen KANE-1 Antibody SS-A/Ro IgG Antibody SS-B/La IgG Antibody Sm (Carr) Antibody USER SUPPORT SPECIALIST Antibody Scl-70 Scleroderma Ab Double Strand DNA Ab Centromere B Antibody Miscellaneous Test Pending 08/14/19 08/14/19 08/14/19 20:10 20:10 20:10 WBC RBC Hgb Hct MCV MCH MCHC RDW Std Deviation RDW Coeff of Lencho Plt Count MPV Immature Gran % (Auto) Neut % (Auto) Lymph % (Auto) [place] % (Auto) Eos % (Auto) Baso % (Auto) Absolute Neuts (auto) Absolute Lymphs (auto) Nucleated RBC % Eos Smear Total Cells Total Protein (PEP) Globulin Aldolase ACTH Urine Color Urine Clarity Urine pH 2 Ur Specific [place] Urine Protein Urine Glucose (UA) Urine Ketones Urine Occult Blood Urine Nitrite Urine Bilirubin Urine Urobilinogen Ur Leukocyte Esterase Urine RBC Urine WBC Ur Squamous Epith Cells Urine Bacteria Urine Mucus Ur Random Sodium Urine Collection Time 24.0 Ur Collection Duration 24.0 24.0 Urine Total Volume 1700 1.70 1700 Urine Creatinine 46.60 Ur Creatinine 24 Hour 0.79 Ur Sodium 24 Hour Urine Potassium Ur Potassium 24 Hour Urine Chloride Ur Chloride 24 Hour Urine Urea Nitrogen 328 Ur Urea Nitrogen 24 Hr 6.0 L Urine Calcium < 5.0 Ur Calcium 24 Hr TNP IgG IgA IgM Immunofixation Screen Albumin (ASA) Albumin/Globulin (ASA) Ybazr-9-Wqorcqocc ASA Zkdid-8-Ajlohkfuv ASA Beta-Globulins (ASA) Gamma Globulins (ASA) ASA M-Prince ASA Comments Cycl Citrul Peptide IgG JOHN Screen KANE-1 Antibody SS-A/Ro IgG Antibody SS-B/La IgG Antibody Sm (Carr) Antibody USER SUPPORT SPECIALIST Antibody Scl-70 Scleroderma Ab Double Strand DNA Ab Centromere B Antibody Miscellaneous Test 08/14/19 08/14/19 08/15/19 21:13 21:13 09:00 WBC RBC Hgb Hct MCV MCH MCHC RDW Std Deviation RDW Coeff of Lencho Plt Count MPV Immature Gran % (Auto) Neut % (Auto) Lymph % (Auto) [place] % (Auto) Eos % (Auto) Baso % (Auto) Absolute Neuts (auto) Absolute Lymphs (auto) Nucleated RBC % Eos Smear Total Cells Pending Total Protein (PEP) Globulin Aldolase ACTH Urine Color Yellow Urine Clarity Clear Urine pH 6.5 Ur Specific [place] 1.010 Urine Protein Negative Urine Glucose (UA) Normal Urine Ketones Negative Urine Occult Blood Negative Urine Nitrite Negative Urine Bilirubin Negative Urine Urobilinogen Normal Ur Leukocyte Esterase Negative Urine RBC 0 SEEN Urine WBC 0 SEEN Ur Squamous Epith Cells 0 SEEN Urine Bacteria 0 SEEN Urine Mucus 0 SEEN Ur Random Sodium Urine Collection Time Ur Collection Duration Urine Total Volume Urine Creatinine Ur Creatinine 24 Hour Ur Sodium 24 Hour Urine Potassium Ur Potassium 24 Hour Urine Chloride Ur Chloride 24 Hour Urine Urea Nitrogen Ur Urea Nitrogen 24 Hr Urine Calcium Ur Calcium 24 Hr IgG IgA IgM Immunofixation Screen Albumin (ASA) Albumin/Globulin (ASA) Jznif-4-Tyvxdvjqw ASA Oqehu-6-Ugvsxtart ASA Beta-Globulins (ASA) Gamma Globulins (ASA) ASA M-Prince ASA Comments Cycl Citrul Peptide IgG Pending JOHN Screen KANE-1 Antibody SS-A/Ro IgG Antibody SS-B/La IgG Antibody Sm (Carr) Antibody USER SUPPORT SPECIALIST Antibody Scl-70 Scleroderma Ab Double Strand DNA Ab Centromere B Antibody Miscellaneous Test POC Glucose 08/15/19 08/14/19 08/14/19 06:48 21:04 16:52 POC Glucose 102 155 H 116 H 08/14/19 11:44 POC Glucose 160 H Medical Necessity - Tobacco Use Smoking Status: Former smoker Assessment/Plan All Active Problems Toe fracture, right (Acute) Ankle fracture (Acute) Falls (Acute) Neuropathy (Acute) History of stroke (Acute) Hypotension (Acute) ARF (acute renal failure) (Acute)
[2019-08-15 10:38] VITALS: BP 97/52; PULSE 100; RESP 16; TEMP 36.7; O2SAT 95
[2019-08-15] MEDS: Loratadine 10 MG Tablet PO (10:40)
[2019-08-15] MEDS: Senna/Docusate Sodium 1 Tablet PO (10:41)
[2019-08-15] MEDS: Calcium Carb/Vitamin D 1 TABLET Tablet PO (10:41)
[2019-08-15] MEDS: Pantoprazole Sodium 40 MG Tablet PO (10:41)
[2019-08-15] MEDS: Clopidogrel Bisulfate 75 MG Tablet PO (10:41)
[2019-08-15] MEDS: Heparin Injection (Vial) 5,000 UNIT/ML VIAL 5000 UNIT SC (10:41)
[2019-08-15] MEDS: DULoxetine Hcl 60 MG Capsule PO (10:41)
--- NOTE | 2019-08-15 11:41 | PN.NEURO_ITS ---
Patient Problems: Active and Suspected Problems Toe fracture, right (Acute) Ankle fracture (Acute) Falls (Acute) Neuropathy (Acute) History of stroke (Acute) Subjective: No issues overnight. MRI brain reported to show old deep white matter infarct in the right parietal lobe and chronic ischemic changes in the cerebellum. MRI C-spine without contrast reported to show moderate spondylosis and multilevel spinal stenosis secondary to bony hypertrophy most severe at C4-C5 and C5-C6. MRI L-spine without contrast reported to show postsurgical changes at L5-S1. - Physical Exam General: Alert HEENT: Normocephalic Neck: Supple Lungs: Normal air movement Cardiovascular: Normal S1, Normal S2 Abdomen: Bowel Sounds Present Extremities: No cyanosis Neurological: - - Conscious, alert, CN II through XII grossly intact, power 5 x 5 both upper extremities, +4 x 5 left lower extremity (chronic weakness), right lower extremity power could not be examined as patient has right ankle fracture and had surgery yesterday, denies any new onset sensory loss but has chronic sensory loss to light touch both legs below ankle worse on the right as compared to the left, no cerebellar signs, ? mild muscle atrophy in the thigh muscles, gait deferred, reflexes + B/L B/S/T/K/A Psych/Mental Status: Normal Affect Vital Signs Temp Pulse Resp BP Pulse Ox 98.0 F 100 16 97/52 L 95 08/15/19 10:38 08/15/19 10:38 08/15/19 10:38 08/15/19 10:38 08/15/19 10:38 Oxygen Flow Rate (L/min) 2 Oxygen Delivery Method Room Air Weight: 105.233 kg Body Mass Index (BMI) 37.5 Finger Stick Blood Glucose 154 Intake and Output for Last 24 Hours 08/13/19 08/14/19 08/15/19 23:59 23:59 23:59 Intake Total 3490 / 3490 4793.33 / 4793.33 1360 / 1360 Output Total 2235 / 2235 1150 / 1150 2049 / 2049 Balance 1255 / 1255 3643.33 / 3643.33 -690 / -690 Microbiology Past 72 Hours 08/13/19 10:15 Stool Occult Blood (ENEDELIA) - Final Stool Occult Blood Positive 08/10/19 19:00 Urine Culture - Final Urine, Catheterized Culture exhibits no growth. Laboratory Tests Past 24 Hrs 08/12/19 08/12/19 08/13/19 13:35 13:50 05:30 Eos Smear Total Cells Total Protein (PEP) 6.5 Globulin 3.1 Aldolase 9.1 ACTH 5.5 L Urine Color Urine Clarity Urine pH Ur Specific Dickens Urine Protein Urine Glucose (UA) Urine Ketones Urine Occult Blood Urine Nitrite Urine Bilirubin Urine Urobilinogen Ur Leukocyte Esterase Urine RBC Urine WBC Ur Squamous Epith Cells Urine Bacteria Urine Mucus Ur Random Sodium Urine Collection Time Ur Collection Duration Urine Total Volume Urine Creatinine Ur Creatinine 24 Hour Ur Sodium 24 Hour Urine Potassium Ur Potassium 24 Hour Urine Chloride Ur Chloride 24 Hour Urine Urea Nitrogen Ur Urea Nitrogen 24 Hr Urine Calcium Ur Calcium 24 Hr IgG 752 IgA 101 IgM 112 Immunofixation Screen Comment: Albumin (ASA) 3.4 Albumin/Globulin (ASA) 1.1 Nkvai-6-Tlpgnoiwf ASA 0.3 Urbyq-2-Psopddebg ASA 1.1 H Beta-Globulins (ASA) 0.8 Gamma Globulins (ASA) 0.8 ASA M-Prince ASA Comments Comment Cycl Citrul Peptide IgG JOHN Screen Positive H KANE-1 Antibody <0.2 SS-A/Ro IgG Antibody < 0.2 SS-B/La IgG Antibody < 0.2 Sm (Carr) Antibody <0.2 BUSINESS LAW PROFESSOR Antibody <0.2 Scl-70 Scleroderma Ab 1.3 H Double Strand DNA Ab 1 Centromere B Antibody <0.2 Miscellaneous Test 08/14/19 08/14/19 08/14/19 20:10 20:10 20:10 Eos Smear Total Cells Total Protein (PEP) Globulin Aldolase ACTH Urine Color Urine Clarity Urine pH Ur Specific Dickens Urine Protein Urine Glucose (UA) Urine Ketones Urine Occult Blood Urine Nitrite Urine Bilirubin Urine Urobilinogen Ur Leukocyte Esterase Urine RBC Urine WBC Ur Squamous Epith Cells Urine Bacteria Urine Mucus Ur Random Sodium 67 Urine Collection Time Ur Collection Duration 24.0 Urine Total Volume 1700 1700 Urine Creatinine Ur Creatinine 24 Hour Ur Sodium 24 Hour 114 Urine Potassium 22.0 Ur Potassium 24 Hour 38.0 Urine Chloride 89 Ur Chloride 24 Hour 151 Urine Urea Nitrogen 328 Ur Urea Nitrogen 24 Hr 6.0 L Urine Calcium Ur Calcium 24 Hr IgG IgA IgM Immunofixation Screen Albumin (ASA) Albumin/Globulin (ASA) Kmhdi-0-Pwomntxhy ASA Oddpa-2-Iysxfgygg ASA Beta-Globulins (ASA) Gamma Globulins (ASA) ASA M-Prince ASA Comments Cycl Citrul Peptide IgG JOHN Screen KANE-1 Antibody SS-A/Ro IgG Antibody SS-B/La IgG Antibody Sm (Carr) Antibody BUSINESS LAW PROFESSOR Antibody Scl-70 Scleroderma Ab Double Strand DNA Ab Centromere B Antibody Miscellaneous Test Pending 08/14/19 08/14/19 08/14/19 20:10 20:10 21:13 Eos Smear Total Cells Pending Total Protein (PEP) Globulin Aldolase ACTH Urine Color Urine Clarity Urine pH 2 Ur Specific Dickens Urine Protein Urine Glucose (UA) Urine Ketones Urine Occult Blood Urine Nitrite Urine Bilirubin Urine Urobilinogen Ur Leukocyte Esterase Urine RBC Urine WBC Ur Squamous Epith Cells Urine Bacteria Urine Mucus Ur Random Sodium Urine Collection Time 24.0 Ur Collection Duration 24.0 Urine Total Volume 1.70 1700 Urine Creatinine 46.60 Ur Creatinine 24 Hour 0.79 Ur Sodium 24 Hour Urine Potassium Ur Potassium 24 Hour Urine Chloride Ur Chloride 24 Hour Urine Urea Nitrogen Ur Urea Nitrogen 24 Hr Urine Calcium < 5.0 Ur Calcium 24 Hr TNP IgG IgA IgM Immunofixation Screen Albumin (ASA) Albumin/Globulin (ASA) Faveg-2-Oedoarmqs ASA Vgfwl-8-Nqdsuivyt ASA Beta-Globulins (ASA) Gamma Globulins (ASA) ASA M-Prince ASA Comments Cycl Citrul Peptide IgG JOHN Screen KANE-1 Antibody SS-A/Ro IgG Antibody SS-B/La IgG Antibody Sm (Carr) Antibody BUSINESS LAW PROFESSOR Antibody Scl-70 Scleroderma Ab Double Strand DNA Ab Centromere B Antibody Miscellaneous Test 08/14/19 08/15/19 21:13 09:00 Eos Smear Total Cells Total Protein (PEP) Globulin Aldolase ACTH Urine Color Yellow Urine Clarity Clear Urine pH 6.5 Ur Specific Dickens 1.010 Urine Protein Negative Urine Glucose (UA) Normal Urine Ketones Negative Urine Occult Blood Negative Urine Nitrite Negative Urine Bilirubin Negative Urine Urobilinogen Normal Ur Leukocyte Esterase Negative Urine RBC 0 SEEN Urine WBC 0 SEEN Ur Squamous Epith Cells 0 SEEN Urine Bacteria 0 SEEN Urine Mucus 0 SEEN Ur Random Sodium Urine Collection Time Ur Collection Duration Urine Total Volume Urine Creatinine Ur Creatinine 24 Hour Ur Sodium 24 Hour Urine Potassium Ur Potassium 24 Hour Urine Chloride Ur Chloride 24 Hour Urine Urea Nitrogen Ur Urea Nitrogen 24 Hr Urine Calcium Ur Calcium 24 Hr IgG IgA IgM Immunofixation Screen Albumin (ASA) Albumin/Globulin (ASA) Slpiv-6-Apmhuklta ASA Rrbkf-6-Stqtshzrv ASA Beta-Globulins (ASA) Gamma Globulins (ASA) ASA M-Prince ASA Comments Cycl Citrul Peptide IgG Pending JOHN Screen KANE-1 Antibody SS-A/Ro IgG Antibody SS-B/La IgG Antibody Sm (Carr) Antibody BUSINESS LAW PROFESSOR Antibody Scl-70 Scleroderma Ab Double Strand DNA Ab Centromere B Antibody Miscellaneous Test POC Glucose 08/15/19 08/14/19 08/14/19 06:48 21:04 16:52 POC Glucose 102 155 H 116 H 08/14/19 11:44 POC Glucose 160 H Medical Necessity - Tobacco Use Smoking Status: Former smoker Assessment/Plan All Active Problems Toe fracture, right (Acute) Ankle fracture (Acute) Falls (Acute) Neuropathy (Acute) History of stroke (Acute) Hypotension (Acute) ARF (acute renal failure) (Acute) The patient is a 58 year old F with PMH HTN, HLD, DM, DM neuropathy, H/O stroke (right MCA and B/L SAFETY FIRE BOSS (right parietal and B/L occipital infarct)) in November 2017 with chronic B/L LE weakness, Carotid stenosis (Right ICA 50-69% stenosis, left ICA < 50% stenosis on CUS November 2017, Right ICA >70% stenosis and left ICA <50% stenosis on CTA head/neck in November 2017), H/O Lumbar surgery, CAD, H/O C diff infection, Cardiomyopathy, IBS, morbid obesity admitted with fall. Per patient she got up in the middle of the night and probably had a mechanical fall, resulting in right ankle fracture for which she is scheduled to undergo surgery this afternoon. Per patient she has had balance issues due to her neuropathy, falls about once a month, has chronic LE weakness probably from her neuropathy, denies any thigh pain, but has numbness in the legs and burning pain in her feet. Per patient she is on Amitriptyline and Cymbalta from her PCP for neuropathy. Denies any neck pain, new onset low back pain or radicular symptoms. Denies any difficulty in getting up from sitting position. Per patent she lives alone, uses walker to ambulate outside house, drives locally and has home health for assistance with her ADLs. Total CK level 172 (N). Impression Falls DM neuropathy- Balance issues H/O stroke and carotid stenosis H/O Lumbar surgery, R/O cervical compressive etiology Less likely to be myopathy/myositis at present-has some mild thigh muscle atrophy, total CK and LDH is normal. Awaiting Aldolase level. Plan -MRI brain reported to show old deep white matter infarct in the right parietal lobe (right MCA stroke) and chronic ischemic changes in the cerebellum. MRI C- spine without contrast reported to show moderate spondylosis and multilevel spinal stenosis secondary to bony hypertrophy most severe at C4-C5 and C5-C6. MRI L-spine without contrast reported to show postsurgical changes at L5-S1. -PT/OT and Balance therapy -Vascular surgery consult for carotid stenosis -On Plavix and Statins -Stroke risk factors discussed and stroke education provided -Goal BP < 130/80 mmHg and goal Hba1c < 7% -Discussed case with hospitalist Dr. Bashir who is concerned for possible underlying myositis/myopathy, at present clinically less likely but patient got muscle biopsy yesterday during ankle ORIF and results are pending. -Further evaluation of neuropathy as outpatient. EMG/NCS both LE as outpatient -Further medical management per hospitalist recommendation. Has chronic anemia and hypotension, being worked up by hospitalist -Rheumatology work up per hospitalist team. JOHN positive, SCL?70 scleroderma antibody 1.3 (H), rheumatology consult for further evaluation and management. -In serology HSV 1 DNA PCR positive. May need ID consult. Will defer further evaluation and management to hospitalist team. -GI/DVT prophylaxis -Fall precautions -Follow up with Neurology as outpatient. -Please call with questions if any -Thank you for allowing us to participate in patient's care and management
[2019-08-15 12:15] LABS: Bedside Glucose 152 mg/dL (70-110)
[2019-08-15] MEDS: Insulin Lispro 100 UNIT/ML INSULN.PEN SC (12:36)
[2019-08-15 15:21] VITALS: BP 122/78; PULSE 99; RESP 18; TEMP 36.7; O2SAT 100
[2019-08-15] MEDS: Morphine 4 MG/ML Syringe IV (15:34)
[2019-08-15] MEDS: 0.9% NaCl Peripheral Flush Adult/Peds IV ×2 (15:34→19:30)
[2019-08-15 15:49] LABS: Vancomycin, Trough Level 9.7 ug/mL (5.0-15.0)
--- NOTE | 2019-08-15 16:00 | CASEMGMT ---
Addendum entered by Bella Bundy 08/15/19 16:04: SW passed hand off to [facility] Professional Development Director. Original Note: Social Work Note CECE received call from June in TCU stating pre-cert has been obtained and pt can discharge to TCU today. Physician updated. CECE met with pt and updated her on approval to go to TCU and discharge today. Pt states understanding, states she has her own wheelchair but will need the leg rest that keeps pt leg up for her wheelchair. CECE informed pt that this worker will relay the message to [facility] Professional Development Director who will be able to assist pt. Pt states understanding, denied additional needs or concerns at this time. Plan: TCU today Bella Bundy AUTOMOBILE MECHANIC, AUTOMATIC DRILL OPERATOR
[2019-08-15 16:04] LABS: Anti-Histone Abs 1.2 Units (0.0-0.9); Anti-Jo <0.2 AI (0.0-0.9)
[2019-08-15 16:50] LABS: Bedside Glucose 106 mg/dL (70-110)
--- NOTE | 2019-08-15 17:45 | PCM.RX.CS ---
Consult Pharmacy has been consulted to manage selected antiobiotic: Vancomycin Type of Consult: Follow-up Suspected Infection: Other Prior Doses of Antibiotics Received/Current Regimen: Vancomycin 1500mg IV x1 Labs: Sodium 137 mmol/L (136-145) 08/14/19 07:25 Potassium 4.2 mmol/L (3.5-5.1) 08/14/19 07:25 Chloride 103 mmol/L (98-107) 08/14/19 07:25 Carbon Dioxide 30.0 mmol/L (21.0-32.0) 08/14/19 07:25 Anion Gap 7 (5-15) 08/13/19 05:16 BUN 13 mg/dL (7-18) 08/14/19 07:25 Creatinine 0.98 mg/dL (0.55-1.02) 08/14/19 07:25 Est GFR (MDRD) Af Amer 75 mL/min (>60) 08/14/19 07:25 Est GFR (MDRD) Non-Af 62 mL/min (>60) 08/14/19 07:25 BUN/Creatinine Ratio 13.3 RATIO (10-20) 08/14/19 07:25 Glucose 137 mg/dL (74-106) H 08/14/19 07:25 Vancomycin Trough 9.7 ug/mL (5.0-15.0) 08/15/19 14:42 Microbiology: Microbiology 08/13/19 10:15 Stool Stool Occult Blood (ENEDELIA) - Final Occult Blood Positive 08/10/19 19:00 Urine, Catheterized Urine Culture - Final Culture exhibits no growth. Weight used for dosin kg Goal Trough: 10-15 mcg/mL Pharmacy Plan for Drug Dosing: Pt's goal trough is 10-15. Pt's trough results from 08/15/19 at 1442 were 9.7. Pt is not quite at steady state yet. Recommend keeping pt on same dose of Vancomycin 1500mg IV q24h and checking a trough in 4 days (08/19/19). Pharmacy Service will continue to monitor and adjust dosing as required. Follow-Up Labs: Trough Vancomycin - 08/19/19 @ 1430
--- NOTE | 2019-08-15 18:19 | TREXTCAR_ITS ---
- Diet 08/14/19 04:47 Diet: 1800 calories, cardiac Is pt able to select menu?: Yes Rich 1 carton BID - Routine Orders/Code Status Enema Type: Fleetz Enema Frequency: Daily PRN Suppository Type: Dulcolax 10mg Suppository Frequency: Daily PRN Keep PO Greater than or Equal to (%): 90 Routine Lab Work: - - BMP, CBC, MAG 08/17/19 and please call the results to Dr. Bashir - Wound(s) RIGHT LOWER LEG Wound Type: Surgical Incision - Therapies Weight Bearing: Non weight bearing Extremity Affected:: Right Lower Physical Therapy: Eval and Treat Occupational Therapy: Eval and Treat - Problem/Diagnosis (1) ACTH deficiency Status: Chronic Comment: new diagnosis - Current Visit: Yes (2) Secondary adrenal insufficiency Status: Chronic Comment: new diagnosis - likely due to pituitary or hypothalamic disease Current Visit: Yes (3) Normochromic normocytic anemia Status: Chronic Comment: etiology never identified - may be due to chronic ad renal insufficiency Current Visit: Yes (4) Heme positive stool Status: Acute Current Visit: Yes (5) Ankle fracture Status: Acute Comment: R Current Visit: Yes (6) Falls Status: Chronic Current Visit: Yes (7) History of stroke Status: Acute Comment: 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 Current Visit: Yes (8) Neuropathy Status: Chronic Comment: secondary to DM Current Visit: Yes (9) Toe fracture, right Status: Acute Comment: multiple toes Current Visit: Yes (10) ARF (acute renal failure) Status: Resolved Comment: due to dehydration Current Visit: No (11) Hypotension Status: Resolved Comment: All BP meds discontinued Current Visit: No (12) Bilateral leg weakness Status: Chronic Current Visit: No (13) Carotid artery stenosis Status: Chronic Current Visit: No (14) Chronic constipation with suspected IBS Status: Chronic Current Visit: No (15) Coronary artery disease Status: Chronic Current Visit: No (16) Diabetes mellitus, type 2 Status: Chronic Current Visit: No (17) History of Clostridium difficile infection Status: Chronic Current Visit: No (18) History of ischemic colitis Status: Chronic Current Visit: No (19) Hx of diverticulitis of colon Status: Chronic Comment: Status post partial colectomy Current Visit: No (20) Hyperlipemia Status: Chronic Current Visit: No (21) Hypertension Status: Chronic Current Visit: No (22) Obesity Status: Chronic Current Visit: No (23) Bacteremia due to Gram-negative bacteria Status: Resolved Current Visit: No (24) Hyperkalemia Status: Resolved Current Visit: No (25) Left lower quadrant abdominal pain Status: Resolved Current Visit: No (26) Hypomagnesemia Status: Acute Current Visit: Yes (27) Hypothyroidism, secondary/tertiary Status: Chronic Current Visit: Yes (28) Osteoporosis Status: Chronic Comment: suspected, has not had a BMD......I suspect this is severe Current Visit: Yes - Allergies/Procedures Done in Hospital Allergies/Adverse Reactions: Allergies adhesive Allergy (Verified 08/10/19 07:52) skin irritation amlodipine [From Norvasc] Allergy (Verified 08/10/19 07:52) tachycardia hydromorphone HCl [From Dilaudid] Allergy (Verified 08/10/19 02:29) Itching sulfamethoxazole [From Bactrim] Allergy (Verified 08/10/19 07:52) made my cold sore huge trimethoprim [From Bactrim] Allergy (Verified 08/10/19 07:52) made my cold sore huge Procedures: 2-D Echocardiogram - Interpretation Summary The study was te chnically difficult. Contrast injection was performed. Based upon the 2D echocardiographic and contrast enhanced images obtained there appears to be grossly normal left ventricular size, wall motion, and systolic function. The estimated ejection fraction is 65 %. Diastolic function is indeterminate. - Type of Care/Length of Stay Estimated LOS: Convalescent Care Less Than 30 days Type of Care Needed: Skilled Rehab Potential: Good Prognosis: Good - Additional Orders/Day of Discharge Additional Orders: Please do NOT give her sedating medications....she has sleep disordered breathing and I suspect she has AMBER and we are trying to avoid sedati ng medications. H&P will serve as current which was dated: 08/10/19 Day of Discharge: 08/15/19 - Dietary and Speech Recommendations Dietitian Recommendations/Changes: Suggest diet change to 1800 calorie controlled/cardiac. Will d/c glucerna shake on medpass as wt has been stable, BMI 37.5 & PO good at meals. - Follow Up Care Primary Care Physician: Brandon Torres DO [Primary Care Provider] - Please follow up with your Primary Care Physician in: TCU Please Follow Up With: Robin Obrien MD When: DAVID Please Follow Up With: Dipika Cervantes DO When: 2 weeks
--- NOTE | 2019-08-15 19:03 | PCM.DC.SUM ---
Discharge Date and Diagnosis - Problem List Patient Problems: Active and Suspected Problems Debility (Acute) Near syncope (Acute) Foot fracture, right (Acute) Closed right ankle fracture (Acute) Date of Admission: 08/10/19 Date of Discharge: 08/15/19 - Primary Discharge Diagnosis Active and Suspected Problems Toe fracture, right (Acute) multiple toes Right Ankle fracture (Acute) - S/P ORIF by Dr. 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 ACTH deficiency (Chronic) new diagnosis - suspect she may have secondary or tertiary adrenal insufficiency Suspected Secondary or Tertiary adrenal insufficiency (Chronic) new diagnosis - likely due to pituitary or hypothalamic disease Normochromic normocytic anemia (Chronic) etiology never identified - may be due to chronic adrenal insufficiency but, she also has heme + stool Hypothyroidism, secondary/tertiary (Chronic) TSH low with normal T3 and T4 Osteoporosis (Chronic) suspected, has not had a BMD......I suspect this is severe Carotid artery stenosis (Chronic) Hyperlipemia (Chronic) Hypertension (Chronic) Coronary artery disease (Chronic) Diabetes mellitus, type 2 (Chronic) History of Clostridium difficile infection (Chronic) Hx of diverticulitis of colon (Chronic) Status post partial colectomy Obesity (Chronic) Chronic constipation with suspected IBS (Chronic) History of ischemic colitis (Chronic) Bilateral leg weakness (Chronic) Hospital Course and Treatment Imaging Results: Clinical Impression(s) from Imaging Studies Foot X-Ray 08/10/19 02:56 IMPRESSION: There are nondisplaced fractures at the base of the second, third, fourth metatarsals. Electronically Signed: Denisse Rankin, at 4:44 EDT Tel , Service support , Knee X-Ray 08/10/19 02:56 IMPRESSION: There is a right knee arthroplasty in good alignment. There is no evidence of fracture. Electronically Signed: Denisse Rankin, at 4:59 EDT Tel , Service support , Tibia/Fibula X-Ray 08/10/19 02:56 IMPRESSION: Chip fractures of the medial and lateral malleoli of undetermined age. Electronically Signed: Denisse Rankin, at 5:04 EDT Tel , Service support , Ankle X-Ray 08/10/19 03:00 IMPRESSION: No fractures of the tip of the medial and lateral malleoli are of undetermined age. Electronically Signed: Denisse Rankin, at 4:51 EDT Tel , Service support , Foot X-Ray 08/10/19 03:40 IMPRESSION: No acute bone injury of the foot. Electronically Signed: Denisse Rankin, at 4:56 EDT Tel , Service support , Knee X-Ray 08/10/19 03:40 IMPRESSION: There is left knee arthroplasty in good alignment. There is no evidence of fracture. Electronically Signed: Denisse Barlowan, at 5:01 EDT Tel , Service support , Ankle X-Ray 08/13/19 14:20 IMPRESSION: ORIF medial malleolus fracture with no apparent complication. Electronically Signed: Bill Lucero, at 18:42 EDT Tel , Service support , Knee X-Ray 08/14/19 12:10 IMPRESSION: Healed distal femoral fracture. No demonstrated abnormality of the total knee arthroplasty. Electronically Signed: Zaheer Stout MD at 14:58 EDT Tel , Service support , Foot X-Ray 08/14/19 12:11 IMPRESSION: Calcaneal enthesopathy. Otherwise, unremarkable x-ray examination of the left foot. Electronically Signed: Zaheer Stout MD at 14:44 EDT Tel , Service support , Ankle X-Ray 08/14/19 12:13 IMPRESSION: Anatomic alignment and position of ORIF of medial malleolar fracture. Electronically Signed: Zaheer Stout MD at 14:31 EDT Tel , Service support , Brain MRI 08/14/19 12:41 IMPRESSION: No evidence for acute infarct. Mild atrophy and periventricular white matter ischemic changes. Old deep white matter infarct in right parietal lobe and chronic ischemic changes with cerebellum.. Electronically Signed: Nilay London MD at 16:39 EDT , Service support , Cervical Spine MRI 08/14/19 12:42 IMPRESSION: No evidence for acute fracture or other significant bony pathology.. Moderate spondylosis and multilevel spinal stenosis secondary to bony hypertrophy most severe at C4-5 and C5-6 Electronically Signed: Nilay London MD at 16:43 EDT , Service support , Lumbar Spine MRI 08/14/19 12:43 IMPRESSION: Post surgical changes at L5-S1 Mild spinal stenosis at L3-4 and more pronounced at L5-S1 secondary to disc disease and bony hypertrophy. Electronically Signed: Nilay London MD at 18:19 EDT , Service support , Laboratory Results - last 24 hr 08/14/19 21:13 Eos Smear Total Cells No Eosinophils Seen Microbiology 08/14/19 21:13 Urine, Clean Catch Urine Culture - Final Culture exhibits no growth. 08/13/19 10:15 Stool Stool Occult Blood (ENEDELIA) - Final Occult Blood Positive 08/10/19 19:00 Urine, Catheterized Urine Culture - Final Culture exhibits no growth. Dr. Dipika Cervantes-orthopedics Dr. Bharathi Reynolds-neurology Operations: - - ORIF right ankle with syndesmotic fixation and short leg splint with gastrocnemius muscle biopsy on 08/13/[address] Cervantes Procedures: - - Ultrasound-guided nerve block 08/10/2019 by anesthesia Summary of Care Provided: The patient is a 58-year-old female with a past medical history of carotid artery stenosis, hyperlipidemia, hypertension, anxiety/depression, diabetic peripheral polyneuropathy, coronary artery disease, diabetes mellitus type 2, history of C. difficile infection, diverticulosis with partial colectomy in the past, chronic pain in , morbid obesity, chronic constipation, ischemic colitis, femur fracture with no trauma in 2017, CVA in the past, chronic N/N anemia of undetermined etiology and chronic bilateral leg weakness with frequent falls who presented to the emergency department at [facility] on 08/10/2019 after a fall with complaint of pain right lower extremity. She c/o dizziness prior to the fall and the initial BP in the ED was 57/37. X-ray showed nondisplaced fractures at the base of the second, third and fourth metatarsals. Right knee arthroplasty was in good in the alignment no evidence of fracture. X-ray of the right tib/fib showed chip fractures of the medial and lateral malleolar lie of undetermined age. Bed admission showed a hemoglobin of 9.2 with normochromic normocytic indices and a normal white blood cell count and platelet count. Sodium was low at 135 and the BUN was 35 with a creatinine of 2.49 went to see up from 1.18 in March 2019. UA had 0 WBCs per high-power field. Urine specific gravity was 1.005 FEUrea was 62.3% consistent with intrinsic renal disease and not with prerenal azotemia but the CREAT did improve with hydration and mandaeism of normal BP. She told me that she often urinates every hour and and gets up to urinate throughout the night. She was admitted to the hospital and Dr. Cervantes was consulted regarding the ankle fx. She was on multiple sedating medications including clonidine, amitriptyline, Bentyl and tizanidine. She was also on both Effexor and Cymbalta. Antihypertensives included carvedilol 25 mg twice daily, clonidine 0.2 mg twice daily, hydrochlorothiazide 25 mg daily and lisinopril 20 mg daily. All were held at admission due to hypotension. Effexor was discontinued and the Cymbalta was decreased to 60 mg Daily. Tizanidine was made PRN. Bentyl was also made PRN. When the BP started to increase she was restarted on Clonidine to prevent rebound tachycardia/HTN and she was again became hypotensive. Clonidine was discontinued and she remained off antihypertensives for the remainder of the hospital stay. She had a rare dose of Hydralazine for systolic > 160. TSH was found to be low at 0.1. Free T4 was normal at 1.0 and the free T3 was also normal at 2.3. PTH was low at 14.1. Random cortisol was 7.1 but the ACTH was low at 5.5. A Cortrosyn stimulation test was performed and the cortisol increased from 7.1-23.8 after 1 hour. FSH was increased at 47.8 and the LH was 25. Prolactin level was mildly increased at 34.9. She denied galactorrhea. Urine calcium was low at < 5.0 and the 24 hour calcium could not be done because the calcium excretion was so low. The total volume of urine in a 24-hour period was 1700 cc. There were days in the hospital when she put out > 3 L of urine. She had an MRI of her brain that showed no abnormality in the pituitary. In addition to muscle weakness and muscle pain she has multiple scars on her skin due to small abscesses that improve with Silvadene cream. Testing was initiated to rule out a CTD such as dermatomyositis. Total CK was WNL, urine myoglobin is pending at the time of DC. Aldolase was within normal limits at 9.1 and this likely rules out dermatomyositis. CRP was elevated at 63.8 and ESR was 24. RA was negative. JOHN was positive with an increased Scl-70 Scleroderma antibody. Histone IgG was also elevated at 1.2 She was seen in consultation by Dr. Reynolds for persistent weakness of bilateral lower extremities with frequent falls. MRI of the brain showed no evidence for acute infarct. There was mild atrophy and periventricular white matter ischemic changes. There were old deep white matter infarcts in the right parietal lobe and chronic ischemic changes within the cerebellum. MRI of the cervical spine showed no evidence for acute fracture or other significant bony pathology. There was moderate spondylosis and multilevel spinal stenosis secondary to bony hypertrophy most severe at C4-5 and C5-6. MRI of the LS spine showed postsurgical changes at L5-S1, mild spinal stenosis at L3-4 and more pronounced at L5-S1 secondary to disc disease and bony hypertrophy. Dr. Reynolds recommended follow up with neurology as an OP for EMG/NCS of both LE's. She was taken to surgery on 08/13/[address] Cervantes for ORIF of right ankle fracture. A biopsy of the gastrocnemius muscle was performed and biopsy results are pending at the time of discharge. Per Dr. Cervantes the bone was very soft and severe osteoporosis is suspected. 08/15/2019 she was afebrile and her blood pressure ranged from 97/52-122/78. Pulse ox on room air ranged from 95 to 100%. She felt more clear headed than she had felt in quite some time. Her anxiety was much better with discontinuation of Effexor and decrease of the Cymbalta dose to 60 mg. Hemoglobin was stable throughout her hospital stay and on 08/14/2019 was 8.3. BMP was unremarkable. She was discharged to TCU for PT/OT. She is non-weight bearing on the RLE. I suspect she has secondary or tertiary Hypothyroidism and hypoadrenalism. She was started on hydrocortisone 10 mg Q AM and 5 mg at 3 PM daily. She should follow-up with Dr. Robin Obrien from endocrinology going forward for DM and thyroid and adrenal issues. She needs to have a DEXA. She was started on a bisphosphonate prior to DC. She will follow up with neurology for EMG/NCV of BL LE's. She will follow-up with Dr. Cervantes in 2 weeks. GENERAL: seems a little groggy this AM, slow to answer questions, oriented X 3, Cooperative, NAD ORAL: moist mucosa, no mucosal lesions NECK: No JVD, supple, trachea midline LUNGS: CTA, symmetric chest expansion HEART: RRR, Normal S1 and S2, no rub, no gallop ABDOMEN: soft, NT, ND, BS present, no guarding with palpation EXTREMITIES: no edema, no cyanosis, toes are warm on both feet and she has intact sensation SKIN: No rashes, no breakdown NEUROLOGIC: no focal neurologic deficits PSYCH: appropriate, normal affect, pleasant This note was generated with [employer] dictation software. It may contain incorrect words, spelling, and punctuation that were not noted in checking the note before signing. Patient Problems: Active and Suspected Problems Debility (Acute) Near syncope (Acute) Foot fracture, right (Acute) Closed right ankle fracture (Acute) - Physical Exam Vital Signs Temp Pulse Resp BP Pulse Ox 98.0 F 99 18 122/78 H 100 08/15/19 15:21 08/15/19 15:21 08/15/19 15:21 08/15/19 15:21 08/15/19 15:21 Oxygen Flow Rate (L/min) 2 Oxygen Delivery Method Room Air Weight: 232 lb Body Mass Index (BMI) 37.5 Finger Stick Blood Glucose 154 Intake and Output for Last 24 Hours 08/13/19 08/14/19 08/15/19 23:59 23:59 23:59 Intake Total 3490 / 3490 4793.33 / 4793.33 3201.67 / 3201.67 Output Total 2235 / 2235 1150 / 1150 2750 / 2750 Balance 1255 / 1255 3643.33 / 3643.33 451.67 / 451.67 Microbiology Past 72 Hours 08/13/19 10:15 Stool Occult Blood (ENEDELIA) - Final Stool Occult Blood Positive 08/10/19 19:00 Urine Culture - Final Urine, Catheterized Culture exhibits no growth. Laboratory Tests Past 24 Hrs 08/12/19 08/12/19 08/13/19 13:35 13:50 05:30 Eos Smear Total Cells Total Protein (PEP) 6.5 Globulin 3.1 Aldolase 9.1 ACTH 5.5 L Urine Color Urine Clarity Urine pH Ur Specific [place] Urine Protein Urine Glucose (UA) Urine Ketones Urine Occult Blood Urine Nitrite Urine Bilirubin Urine Urobilinogen Ur Leukocyte Esterase Urine RBC Urine WBC Ur Squamous Epith Cells Urine Bacteria Urine Mucus Ur Random Sodium Urine Collection Time Ur Collection Duration Urine Total Volume Urine Creatinine Ur Creatinine 24 Hour Ur Sodium 24 Hour Urine Potassium Ur Potassium 24 Hour Urine Chloride Ur Chloride 24 Hour Urine Urea Nitrogen Ur Urea Nitrogen 24 Hr Urine Calcium Ur Calcium 24 Hr Vancomycin Trough IgG 752 IgA 101 IgM 112 Immunofixation Screen Comment: Albumin (ASA) 3.4 Albumin/Globulin (ASA) 1.1 Uaxiw-6-Nmgxvomns ASA 0.3 Lbrng-3-Autpyakdt ASA 1.1 H Beta-Globulins (ASA) 0.8 Gamma Globulins (ASA) 0.8 ASA M-Prince ASA Comments Comment Cycl Citrul Peptide IgG JOHN Screen Positive H KANE-1 Antibody <0.2 SS-A/Ro IgG Antibody < 0.2 SS-B/La IgG Antibody < 0.2 Sm (Carr) Antibody <0.2 WATER PURIFIER OPERATOR Antibody <0.2 Scl-70 Scleroderma Ab 1.3 H Double Strand DNA Ab 1 Centromere B Antibody <0.2 Histone IgG Antibody Miscellaneous Test 08/13/19 08/14/19 08/14/19 09:40 20:10 20:10 Eos Smear Total Cells Total Protein (PEP) Globulin Aldolase ACTH Urine Color Urine Clarity Urine pH Ur Specific [place] Urine Protein Urine Glucose (UA) Urine Ketones Urine Occult Blood Urine Nitrite Urine Bilirubin Urine Urobilinogen Ur Leukocyte Esterase Urine RBC Urine WBC Ur Squamous Epith Cells Urine Bacteria Urine Mucus Ur Random Sodium 67 Urine Collection Time Ur Collection Duration Urine Total Volume 1700 Urine Creatinine Ur Creatinine 24 Hour Ur Sodium 24 Hour 114 Urine Potassium 22.0 Ur Potassium 24 Hour 38.0 Urine Chloride 89 Ur Chloride 24 Hour 151 Urine Urea Nitrogen Ur Urea Nitrogen 24 Hr Urine Calcium Ur Calcium 24 Hr Vancomycin Trough IgG IgA IgM Immunofixation Screen Albumin (ASA) Albumin/Globulin (ASA) Uslij-8-Rixhiimmq ASA Csdjk-5-Czsoqrvdy ASA Beta-Globulins (ASA) Gamma Globulins (ASA) ASA M-Prince ASA Comments Cycl Citrul Peptide IgG JOHN Screen KANE-1 Antibody <0.2 SS-A/Ro IgG Antibody SS-B/La IgG Antibody Sm (Carr) Antibody WATER PURIFIER OPERATOR Antibody Scl-70 Scleroderma Ab Double Strand DNA Ab Centromere B Antibody Histone IgG Antibody 1.2 H Miscellaneous Test Pending 08/14/19 08/14/19 08/14/19 20:10 20:10 20:10 Eos Smear Total Cells Total Protein (PEP) Globulin Aldolase ACTH Urine Color Urine Clarity Urine pH 2 Ur Specific [place] Urine Protein Urine Glucose (UA) Urine Ketones Urine Occult Blood Urine Nitrite Urine Bilirubin Urine Urobilinogen Ur Leukocyte Esterase Urine RBC Urine WBC Ur Squamous Epith Cells Urine Bacteria Urine Mucus Ur Random Sodium Urine Collection Time 24.0 Ur Collection Duration 24.0 24.0 Urine Total Volume 1700 1.70 1700 Urine Creatinine 46.60 Ur Creatinine 24 Hour 0.79 Ur Sodium 24 Hour Urine Potassium Ur Potassium 24 Hour Urine Chloride Ur Chloride 24 Hour Urine Urea Nitrogen 328 Ur Urea Nitrogen 24 Hr 6.0 L Urine Calcium < 5.0 Ur Calcium 24 Hr TNP Vancomycin Trough IgG IgA IgM Immunofixation Screen Albumin (ASA) Albumin/Globulin (ASA) Szwyl-4-Youutihvr ASA Hkysk-8-Drruxdmrt ASA Beta-Globulins (ASA) Gamma Globulins (ASA) ASA M-Prince ASA Comments Cycl Citrul Peptide IgG JOHN Screen KANE-1 Antibody SS-A/Ro IgG Antibody SS-B/La IgG Antibody Sm (Carr) Antibody WATER PURIFIER OPERATOR Antibody Scl-70 Scleroderma Ab Double Strand DNA Ab Centromere B Antibody Histone IgG Antibody Miscellaneous Test 08/14/19 08/14/19 08/15/19 21:13 21:13 09:00 Eos Smear Total Cells Pending Total Protein (PEP) Globulin Aldolase ACTH Urine Color Yellow Urine Clarity Clear Urine pH 6.5 Ur Specific [place] 1.010 Urine Protein Negative Urine Glucose (UA) Normal Urine Ketones Negative Urine Occult Blood Negative Urine Nitrite Negative Urine Bilirubin Negative Urine Urobilinogen Normal Ur Leukocyte Esterase Negative Urine RBC 0 SEEN Urine WBC 0 SEEN Ur Squamous Epith Cells 0 SEEN Urine Bacteria 0 SEEN Urine Mucus 0 SEEN Ur Random Sodium Urine Collection Time Ur Collection Duration Urine Total Volume Urine Creatinine Ur Creatinine 24 Hour Ur Sodium 24 Hour Urine Potassium Ur Potassium 24 Hour Urine Chloride Ur Chloride 24 Hour Urine Urea Nitrogen Ur Urea Nitrogen 24 Hr Urine Calcium Ur Calcium 24 Hr Vancomycin Trough IgG IgA IgM Immunofixation Screen Albumin (ASA) Albumin/Globulin (ASA) Sevrg-9-Bcrgghchu ASA Nbkdi-4-Htcbkropa ASA Beta-Globulins (ASA) Gamma Globulins (ASA) ASA M-Prince ASA Comments Cycl Citrul Peptide IgG Pending JOHN Screen KANE-1 Antibody SS-A/Ro IgG Antibody SS-B/La IgG Antibody Sm (Carr) Antibody WATER PURIFIER OPERATOR Antibody Scl-70 Scleroderma Ab Double Strand DNA Ab Centromere B Antibody Histone IgG Antibody Miscellaneous Test 08/15/19 14:42 Eos Smear Total Cells Total Protein (PEP) Globulin Aldolase ACTH Urine Color Urine Clarity Urine pH Ur Specific [place] Urine Protein Urine Glucose (UA) Urine Ketones Urine Occult Blood Urine Nitrite Urine Bilirubin Urine Urobilinogen Ur Leukocyte Esterase Urine RBC Urine WBC Ur Squamous Epith Cells Urine Bacteria Urine Mucus Ur Random Sodium Urine Collection Time Ur Collection Duration Urine Total Volume Urine Creatinine Ur Creatinine 24 Hour Ur Sodium 24 Hour Urine Potassium Ur Potassium 24 Hour Urine Chloride Ur Chloride 24 Hour Urine Urea Nitrogen Ur Urea Nitrogen 24 Hr Urine Calcium Ur Calcium 24 Hr Vancomycin Trough 9.7 IgG IgA IgM Immunofixation Screen Albumin (ASA) Albumin/Globulin (ASA) Mmgha-5-Yvkmuupgy ASA Trfhq-0-Mpkmdneqa ASA Beta-Globulins (ASA) Gamma Globulins (ASA) SAA M-Prince ASA Comments Cycl Citrul Peptide IgG JOHN Screen KANE-1 Antibody SS-A/Ro IgG Antibody SS-B/La IgG Antibody Sm (Carr) Antibody WATER PURIFIER OPERATOR Antibody Scl-70 Scleroderma Ab Double Strand DNA Ab Centromere B Antibody Histone IgG Antibody Miscellaneous Test POC Glucose 08/15/19 08/15/19 08/15/19 16:44 12:13 06:48 POC Glucose 106 152 H 102 08/14/19 21:04 POC Glucose 155 H Home Medications: Medications to take at Discharge Calcium Citrate/Vitamin D3 [Calcium Citrate-Vit D3 Tablet] 1 each PO DAILY 11/17/17 Levothyroxine Sodium [Levoxyl] 88 mcg PO DAILY 11/17/17 Clopidogrel Bisulfate [Plavix] 75 mg PO DAILY 11/29/17 Multivitamin [Multiple Vitamins] 1 each PO DAILY 12/29/17 Rosuvastatin Calcium [Crestor] 20 mg PO QHS 02/10/18 Cetirizine HCl [Zyrtec] 10 mg PO DAILY 03/29/19 Pantoprazole Sodium [Protonix] 40 mg PO BID 03/29/19 Amitriptyline HCl 25 mg PO QHS 08/10/19 Valacyclovir HCl [Valacyclovir] 500 mg PO DAILY 08/10/19 Acetaminophen [Tylenol] 1,000 mg PO Q8 08/15/19 Alendronate Sodium [Fosamax] 70 mg PO Q7D@0700 08/15/19 Dicyclomine HCl [Bentyl] 10 mg PO TID PRN PRN cap 08/15/19 Hydrocortisone 10 mg PO DAILY@0800 08/15/19 Hydrocortisone [Cortef] 5 mg PO DAILY 08/15/19 Magnesium Oxide [Mag-Ox 400] 400 mg PO DAILYCM 10/11/19 Oxycodone [Oxyir] 5 mg PO Q4H PRN PRN 7 Days #30 tab 08/15/19 Senna/Docusate Sodium [Senokot-S] 1 tab PO BID 08/15/19 Tizanidine HCl [Zanaflex] 2 mg PO TID PRN PRN #1 tab 08/15/19 Primary Care Physician: Brandon Torres DO [Primary Care Provider] - Please follow up with your Primary Care Physician in: TCU Please Follow Up With: Robin Obrien MD When: DAVID Please Follow Up With: Dipika Cervantes DO When: 2 weeks Minutes spent on discharge:: 45 Patient Condition:: Stable Medical Necessity - Tobacco Use Smoking Status: Former smoker Tobacco Use: Non-smoker Meaningful Use Info Meaningful Use Diagnoses (Choose all that apply): None applicable Code Visit Inpatient E&M: 66458 Disch Hosp
--- NOTE | 2019-08-15 20:02 | NURSING ---
report given to tcu
[2019-08-17 08:40] LABS: Eosinophil Ct. Urine No Eosinophils Seen % (.)
[2019-08-18 17:32] LABS: CCP IgG Antibodies 8 units (0-19)
[2019-08-18 20:08] LABS: PROELU- Albumin, Urine 41.3 % (.); PROELU- Alpha-1-Globulin,Ur 5.8 % (.); PROELU- Alpha-2-Globulin,Ur 18.4 % (.); PROELU- Beta Globulin, Ur 18.5 % (.); Total Protein, Ur 9.6 mg/dL (Not Estab.)
[2019-08-18 20:57] LABS: Myoglobin, Urine 2 ng/mL (0-13)
== END 2019-08-15 21:20 | disposition skilled nursing facility (03) | DRG 493 ==
LOC: ED 04:01 → MS3 06:19
PROVIDERS: Anesthesiology; Orthopaedic Surgery; Admitting Provider Hospitalist; Emergency Provider Emergency Medicine; Family Provider Student in an Organized Health Care Education/Training Program; PCP Student in an Organized Health Care Education/Training Program; Visit Provider Internal Medicine
PROC: 0QSG04Z Reposition Right Tibia with Internal Fixation Device, Open Approach (ICD-10-PCS; principal; 2019-08-13 14:00)
DX: S82.861A Displaced Maisonneuve's fracture of right leg, initial encounter for closed fracture (principal); I69.351 Hemiplegia and hemiparesis following cerebral infarction affecting right dominant side; N17.9 Acute kidney failure, unspecified; I42.9 Cardiomyopathy, unspecified; E27.49 Other adrenocortical insufficiency; S92.324A Nondisplaced fracture of second metatarsal bone, right foot, initial encounter for closed fracture; S92.334A Nondisplaced fracture of third metatarsal bone, right foot, initial encounter for closed fracture; S92.344A Nondisplaced fracture of fourth metatarsal bone, right foot, initial encounter for closed fracture; W18.30XA Fall on same level, unspecified, initial encounter; Y92.039 Unspecified place in apartment as the place of occurrence of the external cause; E87.6 Hypokalemia; I95.9 Hypotension, unspecified; Z96.651 Presence of right artificial knee joint; I10 Essential (primary) hypertension; E78.5 Hyperlipidemia, unspecified; E66.01 Morbid (severe) obesity due to excess calories; E11.42 Type 2 diabetes mellitus with diabetic polyneuropathy; E03.9 Hypothyroidism, unspecified; I25.10 Atherosclerotic heart disease of native coronary artery without angina pectoris; D64.9 Anemia, unspecified; R19.5 Other fecal abnormalities; I65.23 Occlusion and stenosis of bilateral carotid arteries; K59.09 Other constipation; M81.0 Age-related osteoporosis without current pathological fracture; R29.6 Repeated falls; Z90.49 Acquired absence of other specified parts of digestive tract; Z68.37 Body mass index [BMI] 37.0-37.9, adult; Z79.84 Long term (current) use of oral hypoglycemic drugs; Z87.891 Personal history of nicotine dependence; Z86.14 Personal history of Methicillin resistant Staphylococcus aureus infection; Z87.19 Personal history of other diseases of the digestive system; G47.33 Obstructive sleep apnea (adult) (pediatric)
CPT/HCPCS: 36415; 70551; 72141; 72148; 73560; 73564; 73590; 73600; 73610; 73620; 73630; 76000; 80048; 80069; 80076; 80202; 81001; 82024; 82085; 82274; 82306; 82340; 82436; 82533; 82550; 82570; 82784; 82962; 83001; 83002; 83036; 83615; 83735; 83874; 83935; 83970; 84100; 84133; 84146; 84165; 84166; 84300; 84439; 84443; 84481; 84540; 85014; 85018; 85025; 85610; 85652; 85730; 86038; 86140; 86200; 86225; 86235; 86334; 86431; 86850; 86900; 86901; 87086; 87205; 88305; 88313; 93005; 93306; 97110; 97162; 97166; 97530; 97802; 99285; C1713; J7030; J7040; J7120; Q9957; A4216; C8929; J0834; J2405; J7799

== ENCOUNTER 2019-08-15 21:31 | Inpatient (IN) | payer MEDICARE, MEDICAID, SELFPAY ==
[2019-08-10 07:33] VITALS: BMI 37.5
[2019-08-15 21:52] VITALS: BP 139/72; PULSE 116; RESP 21; TEMP 36.7; O2SAT 98
[2019-08-15 22:15] LABS: Bedside Glucose 99 mg/dL (70-110)
[2019-08-15 22:26] VITALS: BMI 36.1
[2019-08-15 22:30] VITALS: BMI 36.2
[2019-08-15 22:40] VITALS: PULSE 91; O2SAT 97
[2019-08-15] MEDS: oxyCODONE 5 MG Tablet PO (23:02)
[2019-08-15] MEDS: Amitriptyline 25 MG Tablet PO (23:02)
[2019-08-15] MEDS: Acetaminophen 500 MG Tablet 1000 MG PO (23:04)
--- NOTE | 2019-08-15 23:36 | HP.PCM_ITS ---
Problem List (1) Debility Status: Acute (2) Near syncope Status: Acute (3) Foot fracture, right Status: Acute (4) Closed right ankle fracture Status: Acute (5) Cardiomyopathy Status: Chronic (6) Stroke Status: Chronic (7) Right hemiparesis Status: Chronic (8) Gait difficulty Status: Chronic (9) Diabetes mellitus Status: Chronic (10) Irritable bowel syndrome Status: Chronic (11) Muscle spasm Status: Chronic (12) Allergic rhinitis Status: Chronic (13) GERD (gastroesophageal reflux disease) Status: Chronic (14) Herpes simplex Status: Chronic (15) Falls Status: Chronic (16) Hypotension Status: Acute Comment: All BP meds discontinued History of Present Illness Date of Admission: 08/15/19 Chief Complaint: Here for rehabilitation, strengthening, prior to discharge home alone. The patient is a 58 year old Female with below past medical history presented to [facility] Emergency Department 08/10/2019 with lower extremity injury. 08/10/2019 X-ray right foot nondisplaced fracture 2nd, 3rd, 4th metatarsals. 08/10/2019 X-ray right knee right knee arthroplasty, good alignment. 08/10/2019 X-ray right tibia, fibula showed chip fracture medial, lateral malleolus. 08/10/2019 X-ray right ankle fracture medial, lateral malleoli, age undetermined. 08/10/2019 X-ray left foot negative. 08/10/2019 X-ray left knee left knee arthroplasty, no fracture. Right ankle injury after fall, near syncope. Hypotension, IV fluid bolus normalized blood pressure. Cr 2.5 consistent with acute kidney injury, Patient on Tizanidine, multiple blood pressure medications. Ortho glass sugar tong splint to right foot. 08/10/2019 Admit to Hospital. IV fluids for low blood pressure, hold home blood pressure medications. Pain control for right foot fracture. Potassium supplementation. IV fluids for acute kidney injury. 08/10/2019 Dr. Cervantes recommend waiting for swelling to improve. Needs surgery for right medial malleolus fracture. 08/11/2019 Evaluate for osteoporosis. Continue Cymbalta, Stop Effexor, no need for dual SNRI therapy. Coreg, Lisinopril for Hypertension. 08/12/2019 Echo Left ventricular systolic function normal. EF 65% Diastolic dysfunction indeterminate. 08/13/2019 Dr. Reynolds recommended MRI brain, MRI C spine, MRI L spine to evaluate neuropathy, weakness. 08/13/2019 Dr. Cervantes performed ORIF right ankle syndesmotic fixation and short leg splint. 08/14/2019 MRI brain no acute infarct. Mild atrophy periventricular white matter changes. Old deep white matter infarct right parietal lobe. 08/14/2019 MRI C spine moderate spondylosis, Central spinal stenosis C4-5, C5-6. 08/14/2019 MRI L spine mild L3-4 spinal stenosis. 08/15/2019 PT/OT. Muscle biopsy done for weakness evaluation. JOHN positive, SCL-70 scleroderma antibody elevated, consult Rheumatology. 08/15/2019 Admit to TCU with debility, here for rehabilitation, strengthening, prior to discharge home alone. Past Medical History Past Medical History (Chronic Problems): Chronic Problems Falls (Chronic) 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 ACTH deficiency (Chronic) new diagnosis - Secondary adrenal insufficiency (Chronic) new diagnosis - likely due to pituitary or hypothalamic disease Normochromic normocytic anemia (Chronic) etiology never identified - may be due to chronic adrenal insufficiency Hypothyroidism, secondary/tertiary (Chronic) Osteoporosis (Chronic) suspected, has not had a BMD......I suspect this is severe Cardiomyopathy (Chronic) Stroke (Chronic) Right hemiparesis (Chronic) Gait difficulty (Chronic) Diabetes mellitus (Chronic) Irritable bowel syndrome (Chronic) Muscle spasm (Chronic) Allergic rhinitis (Chronic) GERD (gastroesophageal reflux disease) (Chronic) Herpes simplex (Chronic) Carotid artery stenosis (Chronic) Hyperlipemia (Chronic) Hypertension (Chronic) Coronary artery disease (Chronic) Diabetes mellitus, type 2 (Chronic) History of Clostridium difficile infection (Chronic) Hx of diverticulitis of colon (Chronic) Status post partial colectomy Obesity (Chronic) Chronic constipation with suspected IBS (Chronic) History of ischemic colitis (Chronic) Bilateral leg weakness (Chronic) Allergies adhesive Allergy (Verified 08/10/19 07:52) skin irritation amlodipine [From Norvasc] Allergy (Verified 08/10/19 07:52) tachycardia hydromorphone HCl [From Dilaudid] Allergy (Verified 08/10/19 02:29) Itching sulfamethoxazole [From Bactrim] Allergy (Verified 08/10/19 07:52) made my cold sore huge trimethoprim [From Bactrim] Allergy (Verified 08/10/19 07:52) made my cold sore huge Home Medications: Ambulatory Orders Medication Instructions Recorded Calcium Citrate/Vitamin D3 1 each PO DAILY 11/17/17 [Calcium Citrate-Vit D3 Tablet] Levothyroxine Sodium [Levoxyl] 88 mcg PO DAILY 11/17/17 Clopidogrel Bisulfate [Plavix] 75 mg PO DAILY 11/29/17 Multivitamin [Multiple Vitamins] 1 each PO DAILY 12/29/17 Rosuvastatin Calcium [Crestor] 20 mg PO QHS 02/10/18 Cetirizine HCl [Zyrtec] 10 mg PO DAILY 03/29/19 Pantoprazole Sodium [Protonix] 40 mg PO BID 03/29/19 Amitriptyline HCl 25 mg PO QHS 08/10/19 Valacyclovir HCl [Valacyclovir] 500 mg PO DAILY 08/10/19 Acetaminophen [Tylenol] 1,000 mg PO Q8 08/15/19 Alendronate Sodium [Fosamax] 70 mg PO Q7D@0700 08/15/19 Dicyclomine HCl [Bentyl] 10 mg PO TID PRN PRN cap 08/15/19 Hydrocortisone 10 mg PO DAILY@0800 08/15/19 Hydrocortisone [Cortef] 5 mg PO DAILY 08/15/19 Magnesium Oxide [Mag-Ox 400] 400 mg PO DAILYCM 08/15/19 Oxycodone [Oxyir] 5 mg PO Q4H PRN PRN 7 Days #30 tab 08/15/19 Senna/Docusate Sodium [Senokot-S] 1 tab PO BID 08/15/19 Tizanidine HCl [Zanaflex] 2 mg PO TID PRN PRN #1 tab 08/15/19 Surgical History: cholecystectomy, total knee arthroplasty - Bilateral., tonsillectomy, - - partial colon resection due to diverticulosis. 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: No pertinent DECAL DECORATOR history Lives: Alone Smoking Status: Former smoker Alcohol: None Drugs: None - *Family History Paternal History Items: Diabetes, Heart Disease, - Maternal History Items: Heart Disease, - - osteoarthritis Review of Systems Constitutional: Denies: Chills, Fever, Weight Change HEENT: Denies: Head Aches, Sinus Congestion, Sinus Drainage Cardiovascular: Denies: Chest Pain, Palpitations Respiratory: Denies: Cough, Shortness of breath at rest, Sputum production Gastrointestinal: Denies: Abdominal Pain, Nausea, Vomiting Genitourinary: Denies: Dysuria Musculoskeletal: Denies: Joint Pain, Joint Tenderness Skin: Denies: Rash, Wounds Neurological: Denies: Numbness, Tingling, Focal weakness Psychiatric: Denies: Anxiety, Depression, Homicidal Ideations, Suicidal Ideations Hematologic/ Lymphatic: Denies: Easy Bruising, Easy Bleeding VTE Information - Inpt Only VTE Present on Admission: No VTE Mechan Device Prophylaxis: Knee High SHANTEL Hose VTE Pharm Prophylaxis ordered?: No Reason prophylaxis not ordered:: Medical Contraindication Patient Problems: Active and Suspected Problems Debility (Acute) Near syncope (Acute) Foot fracture, right (Acute) Closed right ankle fracture (Acute) - Physical Exam General: Alert, Oriented x3, Cooperative HEENT: Atraumatic, PERRLA, EOMI, Normocephalic Neck: Supple, No JVD, Negative Carotid Bruits Lungs: Clear to auscultation, Normal air movement Cardiovascular: Regular rate, No murmurs Abdomen: Bowel Sounds Present, Soft, Non Tender Extremities: No edema, Capillary Refill Less than 3 Seconds, - - Right lower extremity splint, dressing. Skin: No rashes, No breakdown Musculoskeletal: No Tenderness to Palpation of Joints or Extremities Neurological: Cranial nerves II-XII grossly intact Psych/Mental Status: Normal Affect, Appropriate Vital Signs Temp Pulse Resp BP Pulse Ox 98.1 F 91 21 H 139/72 H 97 08/15/19 21:52 08/15/19 22:40 08/15/19 21:52 08/15/19 21:52 08/15/19 22:40 Oxygen Delivery Method Room Air Weight: 104.78 kg Body Mass Index (BMI) 36.1 Finger Stick Blood Glucose 154 POC Glucose 08/15/19 22:10 POC Glucose 99 Assessment/Plan All Active Problems Toe fracture, right (Acute) Ankle fracture (Acute) History of stroke (Acute) Heme positive stool (Acute) Hypomagnesemia (Acute) Debility (Acute) Near syncope (Acute) Foot fracture, right (Acute) Closed right ankle fracture (Acute) Hypotension (Acute) ARF (acute renal failure) (Resolved) Bacteremia due to Gram-negative bacteria (Resolved) Hyperkalemia (Resolved) Left lower quadrant abdominal pain (Resolved) 58 year old female with below past medical history hospitalized for fall, near syncope, right ankle fracture requiring ORIF 08/13/[address] Cervantes, complicated by weakness, neuropathy, admitted to TCU with debility, here for rehabilitation, strengthening, prior to discharge home alone. * Debility - PT/OT. * Pain - Tylenol 1000MG Q8H, Oxycodone 5MG Q4H PRN pain (1-10) * Bowel - Miralax 17GM daily, Senna/colace 1 tablet BID, Dulcolax 10MG GA daily PRN. * Pneumonia vaccination - Administer Prevnar 13 and/or Pneumovax 23 as necessary. * DVT prophylaxis - Hold, anemia, Heme + stool, on Plavix. * Herpes Simplex - Acyclovir 200MG BID for suppression. * Osteoporosis - Alendronate 70MG per week. * Neuropathic pain - Elavil 25MG QHS ([employer] drug, consider stopping). * Hyperlipidemia - Atorvastatin 40MG QHS. * Calcium deficiency - Calcium D 1 tablet daily. * Stroke - Plavix 75MG daily. * Irritable Bowel syndrome - Bentyl 10MG TID PRN. * Nutrition - Glucerna Shake 120ML PO TID, Rich 1 packet BID, MVI daily. * Adrenal Insufficiency - Cortef 10MG AM, 5MG PM, follow up with Dr. Robin Obrien as outpatient. * Hypertension - Coreg 12.5MG BID. * Hypothyroidism - Levothyroxine 88MCG daily. * Allergic Rhinitis - Loratadine 10MG daily. * Hypomagnesemia - Magnesium Oxide 400MG daily. * GERD - Pantoprazole 40MG BID. * Anemia - status post 2 units PRBC transfusion yesterday, Hemoglobin improved.
[2019-08-16] MEDS: Senna/Docusate Sodium 1 Tablet PO ×2 (05:27→18:02)
[2019-08-16] MEDS: Acyclovir 200 MG Capsule PO ×2 (05:27→18:02)
[2019-08-16] MEDS: Loratadine 10 MG Tablet PO (05:28)
[2019-08-16] MEDS: Levothyroxine 88 MCG Tablet PO (05:28)
[2019-08-16] MEDS: Pantoprazole Sodium 40 MG Tablet PO ×2 (05:28→18:02)
[2019-08-16] MEDS: Acetaminophen 500 MG Tablet 1000 MG PO ×3 (05:28→21:39)
[2019-08-16] MEDS: Clopidogrel Bisulfate 75 MG Tablet PO (05:28)
[2019-08-16] MEDS: oxyCODONE 5 MG Tablet PO ×4 (05:38→21:49)
[2019-08-16] MEDS: tiZANidine HCl 2 MG Tablet PO (06:19)
[2019-08-16 06:46] LABS: Bedside Glucose 119 mg/dL (70-110)
[2019-08-16 07:10] LABS: Absolute Lymphocyte Count 1.09 X10^3/uL (0.83-4.51); Basophil# 0.01 X10^3/uL; Basophil% 0.3 % (0-1); Eosinophil# 0.25 X10^3/uL; Eosinophils% 6.8 % (0-5); Hematocrit 21.6 % (37-47); Hemoglobin 6.8 g/dL (12.0-15.0); Lymphocyte # 1.09 X10^3/ul (4.0); Lymphocyte % 29.9 % (19-41); Mean Corp Hgb Conc 31.5 g/dL (32-36); Mean Corpuscular Hgb 30.4 pg (27.0-32.0); Mean Corpuscular Volume 96.4 fL (81-99); Mean Platelet Vol. 9.8 fl (6.2-12.0); Monocyte% 8.2 % (0-10); NRBC Flagged by Analyzer 0 % (0-5); Neutrophil # 1.98 X10^3/uL (2.7-7.7); Neutrophil % 54.3 % (47-70); Platelet Count 174 K/mm3 (150-450); RBC Distribution Width CV 13.2 % (11.6-14.6); RBC Distribution Width SD 46.5 fl (35.1-43.9); Red Blood Count 2.24 M/mm3 (4.2-5.4); White Blood Count 3.7 K/mm3 (4.4-11.0)
[2019-08-16 07:39] LABS: Anion Gap 7 (5-15); BUN 11 mg/dL (7-18); BUN/Creat Ratio 10.7 RATIO (10-20); Calcium,Total 9.2 mg/dL (8.5-10.1); Chloride 103 mmol/L (98-107); Creatinine, Serum 1.03 mg/dL (0.55-1.02); EST Glomerular Filtration Rate 58 mL/min (>60); Est Glom Filt Rate - Afr Amer 71 mL/min (>60); Glucose 126 mg/dL (74-106); Potassium 3.9 mmol/L (3.5-5.1); Sodium Level 138 mmol/L (136-145)
[2019-08-16] MEDS: Glucerna Shake 120 ML LIQUID PO ×3 (08:37→17:56)
[2019-08-16] MEDS: Calcium Carb/Vitamin D 1 TABLET Tablet PO (08:39)
[2019-08-16] MEDS: Multivitamins,Therapeutic Tablet 1 TABLET PO (08:39)
[2019-08-16] MEDS: Magnesium Oxide 400 MG Tablet PO (08:39)
[2019-08-16] MEDS: Hydrocortisone 10 MG Tablet PO (08:39)
[2019-08-16 09:29] VITALS: PULSE 82; O2SAT 96
[2019-08-16 10:46] LABS: Bedside Glucose 142 mg/dL (70-110)
--- NOTE | 2019-08-16 12:05 | NURSING ---
Dr. Barry notified of labs, N/O to T&C for 2U PRBC to be transfused per protocol with 20mg IV lasix between
[2019-08-16] MEDS: Tuberculin,Purif.prot.deriv. 50 TU/ML Vial 5 ML ID (12:57)
--- NOTE | 2019-08-16 15:18 | NURSING ---
Blood Lab called to report 2 units of PRBC are ready, will 08/19/19
[2019-08-16] MEDS: Hydrocortisone 10 MG Tablet 5 MG PO (15:33)
[2019-08-16 15:50] VITALS: BP 160/78; PULSE 106; RESP 18; TEMP 36.4; O2SAT 100
[2019-08-16 17:26] LABS: Bedside Glucose 120 mg/dL (70-110)
[2019-08-16 21:08] VITALS: TEMP 38
[2019-08-16 21:11] LABS: Bedside Glucose 144 mg/dL (70-110)
[2019-08-16] MEDS: Amitriptyline 25 MG Tablet PO (21:40)
[2019-08-16] MEDS: Atorvastatin Calcium 40 MG Tablet PO (21:42)
--- NOTE | 2019-08-16 21:52 | NURSING ---
Addendum entered by Gabriela Douglas 08/16/19 22:39: Recheck temp 99.9 oral Addendum entered by Gabriela Douglas 08/16/19 21:58: Bs 144 when MACHINE TOOL ELECTRICIAN checked Original Note: Pt notified MACHINE TOOL ELECTRICIAN while getting glucose level that she felt warm. MACHINE TOOL ELECTRICIAN took temp orally got 100.4 notified this nurse, pt was given tylenol will recheck temperature and continue to monitor.
[2019-08-16 22:37] VITALS: TEMP 37.7
[2019-08-17] MEDS: Acetaminophen 500 MG Tablet 1000 MG PO ×3 (06:24→20:04)
[2019-08-17] MEDS: Acyclovir 200 MG Capsule PO ×2 (06:24→17:59)
[2019-08-17] MEDS: Levothyroxine 88 MCG Tablet PO (06:24)
[2019-08-17] MEDS: Loratadine 10 MG Tablet PO (06:24)
[2019-08-17] MEDS: Pantoprazole Sodium 40 MG Tablet PO ×2 (06:24→17:59)
[2019-08-17] MEDS: 0.9% NaCl Peripheral Flush Adult/Peds IV ×2 (06:29→20:09)
[2019-08-17 06:31] LABS: Bedside Glucose 111 mg/dL (70-110)
[2019-08-17] MEDS: oxyCODONE 5 MG Tablet PO ×4 (06:32→23:10)
[2019-08-17 06:35] VITALS: PULSE 88; RESP 16; O2SAT 94
[2019-08-17] MEDS: Hydrocortisone 10 MG Tablet PO (08:19)
[2019-08-17] MEDS: Multivitamins,Therapeutic Tablet 1 TABLET PO (08:19)
[2019-08-17] MEDS: Magnesium Oxide 400 MG Tablet PO (08:19)
[2019-08-17] MEDS: Calcium Carb/Vitamin D 1 TABLET Tablet PO (08:19)
[2019-08-17] MEDS: Glucerna Shake 120 ML LIQUID PO ×2 (08:21→17:56)
--- NOTE | 2019-08-17 10:50 | RAD_ITS ---
STUDY: X-RAY CHEST REASON FOR EXAM: Female, 58 years old. Cough TECHNIQUE: Frontal view of the chest COMPARISON: 09/10/2018 FINDINGS: The lungs are clear. There are no pleural effusions. There is no pneumothorax. The heart is normal in size. The visualized osseous structures are within normal limits. RAD/Chest 1 View (Portable) IMPRESSION: No acute thoracic pathology. Electronically Signed: Palmer Vivas, at 11:40 EDT Tel , Service support ,
--- NOTE | 2019-08-17 10:59 | NURSING ---
Dr. Barry made aware of low grade fever and cough. n/o for respiratory panel and CXR
--- NOTE | 2019-08-17 12:23 | NURSING ---
Pt currently on Med Surg 3 for blood transfusion and requesting medication. Okay to give medications per [facility] Nursing Rate Reviewer and Alexey ERICKSON.
[2019-08-17 16:00] VITALS: BP 197/115; PULSE 100; RESP 20; TEMP 36.1; O2SAT 99
[2019-08-17] MEDS: Hydrocortisone 10 MG Tablet 5 MG PO (16:08)
[2019-08-17 17:21] LABS: Bedside Glucose 84 mg/dL (70-110)
--- NOTE | 2019-08-17 17:31 | NURSING ---
Pt returned from Med Surg from having blood transfusion. [employer] TECHNICIAN reported BP of 197/115, P 100. This nurse retook BP 186/110, P 108. Reported to Alexey ERICKSON.
--- NOTE | 2019-08-17 19:48 | NURSING ---
At 1925 pts manual bp was 170/92, HR 95. Pt says that she can feel that her bp is high and her heart is racing. Dr. Barry aware, and new orders for coreg 12.5 BID, X1 dose now and lisinopril 10mg BID, X1 dose now. Will continue to monitor.
[2019-08-17] MEDS: Carvedilol 12.5 MG Tablet PO (20:04)
[2019-08-17] MEDS: Lisinopril 10 MG Tablet PO (20:04)
[2019-08-17] MEDS: Amitriptyline 25 MG Tablet PO (20:04)
[2019-08-17] MEDS: Atorvastatin Calcium 40 MG Tablet PO (20:06)
[2019-08-17 21:05] LABS: Bedside Glucose 127 mg/dL (70-110)
--- NOTE | 2019-08-17 21:07 | NURSING ---
Addendum entered by Macey Leach 08/17/19 21:28: Dr. Barry aware, no new orders. Original Note: Pt blood pressure rechecked an hour later after given x1 dose of Coreg 12.5 and Linsinopril 10mg Bp-148/91, HR-102
[2019-08-18] MEDS: Acetaminophen 500 MG Tablet 1000 MG PO ×3 (06:01→20:07)
[2019-08-18] MEDS: oxyCODONE 5 MG Tablet PO ×4 (06:02→22:53)
[2019-08-18] MEDS: Acyclovir 200 MG Capsule PO ×2 (06:03→16:55)
[2019-08-18] MEDS: Loratadine 10 MG Tablet PO (06:03)
[2019-08-18] MEDS: Pantoprazole Sodium 40 MG Tablet PO ×2 (06:03→16:56)
[2019-08-18] MEDS: Levothyroxine 88 MCG Tablet PO (06:03)
[2019-08-18] MEDS: 0.9% NaCl Peripheral Flush Adult/Peds IV ×3 (06:05→20:06)
[2019-08-18 06:06] LABS: Hematocrit 31.9 % (37-47); Hemoglobin 10.5 g/dL (12.0-15.0)
--- NOTE | 2019-08-18 06:14 | NURSING ---
Addendum entered by Gabriela Douglas 08/18/19 07:12: Recheck Bp 110/82 manually, Hr 104. Rn aware Original Note: Pt Bp 99/75, HR 96 held lisinopril and coreg this morning will recheck later.
[2019-08-18 06:22] LABS: Magnesium 1.8 mg/dL (1.6-2.6)
[2019-08-18 06:46] LABS: Bedside Glucose 122 mg/dL (70-110)
[2019-08-18] MEDS: Carvedilol 12.5 MG Tablet PO ×2 (07:11→16:55)
[2019-08-18] MEDS: Lisinopril 10 MG Tablet PO ×2 (07:11→16:54)
[2019-08-18 07:20] VITALS: PULSE 104; RESP 16; O2SAT 95
[2019-08-18] MEDS: Multivitamins,Therapeutic Tablet 1 TABLET PO (08:13)
[2019-08-18] MEDS: Calcium Carb/Vitamin D 1 TABLET Tablet PO (08:13)
[2019-08-18] MEDS: Magnesium Oxide 400 MG Tablet PO (08:14)
[2019-08-18] MEDS: Hydrocortisone 10 MG Tablet PO (09:45)
--- NOTE | 2019-08-18 09:46 | PHA.CONS_ITS ---
<Bri Hidalgo M - Last Filed: 08/18/19 13:36> Progress Note - Pharmacy Subjective: [] Objective: Allergies adhesive Allergy (Verified 08/10/19 07:52) skin irritation amlodipine [From Norvasc] Allergy (Verified 08/10/19 07:52) tachycardia hydromorphone HCl [From Dilaudid] Allergy (Verified 08/10/19 02:29) Itching sulfamethoxazole [From Bactrim] Allergy (Verified 08/10/19 07:52) made my cold sore huge trimethoprim [From Bactrim] Allergy (Verified 08/10/19 07:52) made my cold sore huge Current Medications Generic Name Dose Route Start Last Admin Trade Name Freq PRN Reason Stop Dose Admin Acetaminophen 1,000 mg 08/15/19 22:00 08/18/19 06:01 Tylenol PO 1,000 mg Q8 [facility] Administration Acyclovir 200 mg 08/16/19 06:00 08/18/19 06:03 Zovirax PO 200 mg BID [facility] Administration Alendronate Sodium 70 mg 08/22/19 07:00 Fosamax PO Q7D@0700 [facility] Amitriptyline HCl 25 mg 08/15/19 22:00 08/17/19 20:04 Elavil PO 25 mg QHS [facility] Administration Atorvastatin Calcium 40 mg 08/16/19 22:00 08/17/19 20:06 Lipitor PO 40 mg QHS [facility] Administration Bisacodyl 10 mg 08/15/19 22:08 Dulcolax RECTAL DAILY PRN PRN Constipation Calcium/Vitamin D 1 tablet 08/16/19 08:00 08/18/19 08:13 Os-Jose 500mg + D PO 1 tablet DAILYCM [facility] Administration Carvedilol 12.5 mg 08/18/19 06:00 08/18/19 07:11 Coreg PO 12.5 mg BID [facility] Administration Dicyclomine HCl 10 mg 08/15/19 22:02 Bentyl PO TID PRN PRN abdominal cramping Hydrocortisone 5 mg 08/16/19 15:00 08/17/19 16:08 Cortef PO 5 mg 1500 [facility] Administration Hydrocortisone 10 mg 08/16/19 08:00 08/17/19 08:19 Cortef PO 10 mg DAILY@0800 [facility] Administration Levothyroxine Sodium 88 mcg 08/16/19 06:00 08/18/19 06:03 Synthroid PO 88 mcg DAILY [facility] Administration Loratadine 10 mg 08/16/19 06:00 08/18/19 06:03 Claritin PO 10 mg DAILY [facility] Administration Magnesium Oxide 400 mg 08/16/19 08:00 08/18/19 08:14 Mag-Ox 400 PO 400 mg DAILYCM [facility] Administration Multivitamins 1 tablet 08/16/19 08:00 08/18/19 08:13 Multivitamin PO 1 tablet DAILY@0800 [facility] Administration Nutritional Formula 1 packet 08/16/19 08:00 08/18/19 08:14 Rich - Lamb Flavor PO 1 packet BIDCM [facility] Administration Nutritional Formula (Lactose Free) 120 ml 08/16/19 07:45 08/18/19 08:18 Glucerna Shake PO Not Given TIDCM [facility] Oxycodone HCl 5 mg 08/15/19 22:02 08/18/19 06:02 Oxyir PO 5 mg Q4H PRN PRN Administration Pain Score 1-10/10 Pantoprazole Sodium 40 mg 08/16/19 06:00 08/18/19 06:03 Protonix PO 40 mg BID [facility] Administration Polyethylene Glycol 17 gm 08/16/19 06:00 08/18/19 05:55 Miralax PO Not Given DAILY [facility] Senna/Docusate Sodium 1 tablet 08/16/19 06:00 08/18/19 06:04 Senokot-S, Lesli-Colace PO Not Given BID [facility] Sodium Chloride 5 - 15 ml 08/16/19 23:15 08/18/19 06:05 IV 10 ml UD PRN Administration SALINE FLUSH Tizanidine HCl 2 mg 08/15/19 22:02 08/16/19 06:19 Zanaflex PO 2 mg TID PRN PRN Administration MUSCLE SPASM Tuberculin PPD 5 tu 08/23/19 10:00 Tubersol, Aplisol, Ppd ID 08/23/19 10:01 X1 ONE Problem List Debility (Acute) Near syncope (Acute) Foot fracture, right (Acute) Closed right ankle fracture (Acute) Cardiomyopathy (Chronic) Stroke (Chronic) Right hemiparesis (Chronic) Gait difficulty (Chronic) Diabetes mellitus (Chronic) Irritable bowel syndrome (Chronic) Muscle spasm (Chronic) Allergic rhinitis (Chronic) GERD (gastroesophageal reflux disease) (Chronic) Herpes simplex (Chronic) Vital Signs Temp Pulse Resp BP Pulse Ox 96.9 F L 104 H 16 197/115 H 95 08/17/19 16:00 08/18/19 07:20 08/18/19 07:20 08/17/19 16:00 08/18/19 07:20 Oxygen Delivery Method Room Air Weight: 108.919 kg Body Mass Index (BMI) 36.1 Finger Stick Blood Glucose 154 Sodium 138 mmol/L (136-145) 08/16/19 06:25 Potassium 3.9 mmol/L (3.5-5.1) 08/16/19 06:25 Chloride 103 mmol/L (98-107) 08/16/19 06:25 Carbon Dioxide 28.0 mmol/L (21.0-32.0) 08/16/19 06:25 Anion Gap 7 (5-15) 08/16/19 06:25 BUN 11 mg/dL (7-18) 08/16/19 06:25 Creatinine 1.03 mg/dL (0.55-1.02) H 08/16/19 06:25 Est GFR (MDRD) Af Amer 71 mL/min (>60) 08/16/19 06:25 Est GFR (MDRD) Non-Af 58 mL/min (>60) L 08/16/19 06:25 BUN/Creatinine Ratio 10.7 RATIO (10-20) 08/16/19 06:25 Glucose 126 mg/dL (74-106) H 08/16/19 06:25 Assessment/Plan: 1. Pain: Tylenol 1000MG Q8H, Oxycodone 5MG Q4H PRN pain (1-10). Please continue to monitor for S/S of increased/decreased pain, PRN medication usage 2. Herpes Simplex: Acyclovir 200MG BID for suppression. Please continue to monitor for symptom flare-ups 3. Osteoporosis: Alendronate 70MG per week. Please continue to monitor 4. Hyperlipidemia: Atorvastatin 40MG QHS. Please monitor lipids at least annually or more if clinically indicated 5. Irritable Bowel syndrome: Bentyl 10MG TID PRN. Please continue to monitor PRN usage and medication effectiveness 6. Adrenal Insufficiency: Cortef 10MG AM, 5MG PM. Please continue to monitor for medication effectiveness, ADR 7. Hypertension: Coreg 12.5MG BID. Please continue to monitor pulse, BP, medication effectiveness 8. Hypothyroidism: Levothyroxine 88MCG daily. Please continue to monitor thyroid function as clinically appropriate, S/S of hypo/hyperthyroidism 9. Allergic Rhinitis: Loratadine 10MG daily. Please continue to monitor S/S allergies, medication effectiveness 10. GERD - Pantoprazole 40MG BID. Please continue to monitor S/S of worsening GERD, medication effectiveness 11. Muscle Spasms: Zanaflex 2mg PO TID PRN. Please continue to monitor PRN medication usage, effectiveness of medication 12. General Wellness: Multiple Vitamin 1T daily, Calcium+D 1T daily, Magnesium Oxide 400MG daily. Psychotropic Medications: *1. Neuropathic pain: Elavil 25MG QHS. Please consider a GDR by 02/2020. Additionally, this is also a Beer's List drug; please evaluate use and consider discontinuing medication if clinically appropriate. Unnecessary Medications: None Bowel Regimen: Miralax 17GM daily, Senna/Docusate 1 tablet BID, Dulcolax 10MG [place] daily PRN. Please continue to monitor PRN usage, bowel movements, and for diarrhea Date of Note:: 08/18/19 - Provider Comments Provider responsibility: Provider responsible to enter orders to implement recommendations <Wei Barry Chi - Last Filed: 08/18/19 17:04> Progress Note - Pharmacy Subjective: [] Objective: Allergies adhesive Allergy (Verified 08/10/19 07:52) skin irritation amlodipine [From Norvasc] Allergy (Verified 08/10/19 07:52) tachycardia hydromorphone HCl [From Dilaudid] Allergy (Verified 08/10/19 02:29) Itching sulfamethoxazole [From Bactrim] Allergy (Verified 08/10/19 07:52) made my cold sore huge trimethoprim [From Bactrim] Allergy (Verified 08/10/19 07:52) made my cold sore huge Current Medications Generic Name Dose Route Start Last Admin Trade Name Freq PRN Reason Stop Dose Admin Acetaminophen 1,000 mg 08/15/19 22:00 08/18/19 13:21 Tylenol PO 1,000 mg Q8 [facility] Administration Acyclovir 200 mg 08/16/19 06:00 08/18/19 16:55 Zovirax PO 200 mg BID [facility] Administration Alendronate Sodium 70 mg 08/22/19 07:00 Fosamax PO Q7D@0700 [facility] Amitriptyline HCl 25 mg 08/15/19 22:00 08/17/19 20:04 Elavil PO 25 mg QHS [facility] Administration Atorvastatin Calcium 40 mg 08/16/19 22:00 08/17/19 20:06 Lipitor PO 40 mg QHS [facility] Administration Bisacodyl 10 mg 08/15/19 22:08 Dulcolax RECTAL DAILY PRN PRN Constipation Calcium/Vitamin D 1 tablet 08/16/19 08:00 08/18/19 08:13 Os-Jose 500mg + [facility] Administration Carvedilol 12.5 mg 08/18/19 06:00 08/18/19 16:55 Coreg PO 12.5 mg BID [facility] Administration Dicyclomine HCl 10 mg 08/15/19 22:02 Bentyl PO TID PRN PRN abdominal cramping Hydrocortisone 5 mg 08/16/19 15:00 08/18/19 15:16 Cortef PO 5 mg 1500 [facility] Administration Hydrocortisone 10 mg 08/16/19 08:00 08/18/19 09:45 Cortef PO 10 mg DAILY@0800 [facility] Administration Levothyroxine Sodium 88 mcg 08/16/19 06:00 08/18/19 06:03 Synthroid PO 88 mcg DAILY [facility] Administration Lisinopril 10 mg 08/18/19 18:00 08/18/19 16:54 Zestril PO 10 mg BID [facility] Administration Loratadine 10 mg 08/16/19 06:00 08/18/19 06:03 Claritin PO 10 mg DAILY [facility] Administration Magnesium Oxide 400 mg 08/16/19 08:00 08/18/19 08:14 Mag-Ox 400 PO 400 [facility] Administration Multivitamins 1 tablet 08/16/19 08:00 08/18/19 08:13 Multivitamin PO 1 tablet DAILY@0800 [facility] Administration Nutritional Formula 1 packet 08/16/19 08:00 08/18/19 16:49 Rich - Lamb Flavor PO 1 packet [facility] Administration Nutritional Formula (Lactose Free) 120 ml 08/16/19 07:45 08/18/19 16:47 Glucerna Shake PO Not Given TIDCM [facility] Oxycodone HCl 5 mg 08/15/19 22:02 08/18/19 16:55 Oxyir PO 5 mg Q4H PRN PRN Administration Pain Score 1-08/14 Pantoprazole Sodium 40 mg 08/16/19 06:00 08/18/19 16:56 Protonix PO 40 mg BID [facility] Administration Polyethylene Glycol 17 gm 08/16/19 06:00 08/18/19 05:55 Miralax PO Not Given DAILY [facility] Senna/Docusate Sodium 1 tablet 08/16/19 06:00 08/18/19 16:57 Senokot-S, Lesli-Colace PO Not Given BID [facility] Sodium Chloride 5 - 15 ml 08/16/19 23:15 08/18/19 09:48 IV 10 ml UD PRN Administration SALINE FLUSH Tizanidine HCl 2 mg 08/15/19 22:02 08/16/19 06:19 Zanaflex PO 2 mg TID PRN PRN Administration MUSCLE SPASM Tuberculin PPD 5 tu 08/23/19 10:00 Tubersol, Aplisol, Ppd ID 08/23/19 10:01 X1 ONE Problem List Debility (Acute) Near syncope (Acute) Foot fracture, right (Acute) Closed right ankle fracture (Acute) Cardiomyopathy (Chronic) Stroke (Chronic) Right hemiparesis (Chronic) Gait difficulty (Chronic) Diabetes mellitus (Chronic) Irritable bowel syndrome (Chronic) Muscle spasm (Chronic) Allergic rhinitis (Chronic) GERD (gastroesophageal reflux disease) (Chronic) Herpes simplex (Chronic) Vital Signs Temp Pulse Resp BP Pulse Ox 98.3 F 100 20 H 178/110 H 97 08/18/19 16:00 08/18/19 16:28 08/18/19 16:00 08/18/19 16:28 08/18/19 16:00 Oxygen Delivery Method Room Air Weight: 108.919 kg Body Mass Index (BMI) 36.1 Finger Stick Blood Glucose 154 Sodium 138 mmol/L (136-145) 08/16/19 06:25 Potassium 3.9 mmol/L (3.5-5.1) 08/16/19 06:25 Chloride 103 mmol/L (98-107) 08/16/19 06:25 Carbon Dioxide 28.0 mmol/L (21.0-32.0) 08/16/19 06:25 Anion Gap 7 (5-15) 08/16/19 06:25 BUN 11 mg/dL (7-18) 08/16/19 06:25 Creatinine 1.03 mg/dL (0.55-1.02) H 08/16/19 06:25 Est GFR (MDRD) Af Amer 71 mL/min (>60) 08/16/19 06:25 Est GFR (MDRD) Non-Af 58 mL/min (>60) L 08/16/19 06:25 BUN/Creatinine Ratio 10.7 RATIO (10-20) 08/16/19 06:25 Glucose 126 mg/dL (74-106) H 08/16/19 06:25 Assessment/Plan: Psychotropic Medications: Unnecessary Medications: Bowel Regimen: - Provider Comments Provider responsibility: Provider responsible to enter orders to implement recommendations Provider Comments to Recommendations by Pharmacy: Agree
[2019-08-18 10:31] LABS: Bedside Glucose 139 mg/dL (70-110)
[2019-08-18] MEDS: Hydrocortisone 10 MG Tablet 5 MG PO (15:16)
[2019-08-18 16:00] VITALS: BP 174/109; PULSE 113; RESP 20; TEMP 36.8; O2SAT 97
--- NOTE | 2019-08-18 16:04 | CHAPLAIN ---
Type of Pastoral Visit _x__ Initial Visit ___ Follow-up Visit ___ On-call Visit ___ General Patient Visit ___ Spiritual Assessment ___ Family Conference ___ Bereavement ___ Rapid Response ___ Code Blue ___ Other (describe below) Pastoral Care Referral From _x__ Patient ___ Family ___ Nurse ___ Physician ___ Social Media Community Manager ___ Export Sales Assistant ___ Other (describe below) Sacrament/Intervention _x__ Active listening ___ Anointing ___ Jew _x__ Bereavement ___ Communion ___ Jaye exploration ___ _x__ Life review _x__ Prayer ___ Reconciliation ___ Sacrament of Sick _x__ Supportive presence ___ Wedding ___ Other (describe below) Pastoral Comments patient is very talkative and is expressive about her losses in life and health issues; pt has very little support from family; pt would benefit from further interaction and supportive care for grief and feelings; visit ended when therapy was required
[2019-08-18 16:28] VITALS: BP 178/110; PULSE 100
--- NOTE | 2019-08-18 16:28 | NURSING ---
Patient's blood pressure 178/[address] Barry notified of this. New orders for lisinopril 10 mg BID, give dose now. Will continue to monitor and assess.
[2019-08-18 17:01] LABS: Bedside Glucose 130 mg/dL (70-110)
[2019-08-18 18:50] VITALS: BP 125/73; PULSE 108
[2019-08-18] MEDS: Atorvastatin Calcium 40 MG Tablet PO (20:08)
[2019-08-18] MEDS: Amitriptyline 25 MG Tablet PO (20:08)
[2019-08-18 21:10] LABS: Bedside Glucose 121 mg/dL (70-110)
--- NOTE | 2019-08-18 22:54 | NURSING ---
Pt c/o sharp, and aching pain to right ankle with the soft splint and acewrap on at this time. Assess right foot good circulation, refill <3, cool to touch. Per pt request given prn oxyir and polar care to the right ankle and elevated on a pillow. Will continue to monitor throughout the shift. RN aware.
[2019-08-18] MEDS: LORazepam 0.5 MG Tablet PO (23:51)
--- NOTE | 2019-08-19 | NURSING ---
Saline lock removed from right forearm no concerns voiced during this time.
[2019-08-19] MEDS: Pantoprazole Sodium 40 MG Tablet PO ×2 (06:34→17:36)
[2019-08-19] MEDS: Levothyroxine 88 MCG Tablet PO (06:34)
[2019-08-19] MEDS: Acetaminophen 500 MG Tablet 1000 MG PO ×3 (06:35→21:06)
[2019-08-19 06:36] LABS: Bedside Glucose 126 mg/dL (70-110)
[2019-08-19] MEDS: Acyclovir 200 MG Capsule PO ×2 (06:37→17:36)
[2019-08-19] MEDS: Loratadine 10 MG Tablet PO (06:40)
--- NOTE | 2019-08-19 06:41 | NURSING ---
Addendum entered by Gabriela Douglas 08/19/19 07:25: Pt states,this is my normal and doesn't have any symptoms at this time. Addendum entered by Gabriela Douglas 08/19/19 07:14: Bp-95/62 Left arm manually, HR-82 Rn aware Held Coreg and Lisinopril this morning. Original Note: Bp-65/39, HR-81 will recheck.
[2019-08-19] MEDS: oxyCODONE 5 MG Tablet PO ×3 (08:09→22:44)
[2019-08-19] MEDS: Multivitamins,Therapeutic Tablet 1 TABLET PO (08:16)
[2019-08-19] MEDS: Calcium Carb/Vitamin D 1 TABLET Tablet PO (08:16)
[2019-08-19] MEDS: Hydrocortisone 10 MG Tablet PO (08:17)
[2019-08-19] MEDS: Magnesium Oxide 400 MG Tablet PO (08:17)
--- NOTE | 2019-08-19 09:03 | NURSING ---
Dr Barry updated on low BP this am 95/62 & HR 82. New order to hold Coreg & Zestril this AM.
[2019-08-19 11:10] LABS: Bedside Glucose 116 mg/dL (70-110)
[2019-08-19 15:00] VITALS: PULSE 102; RESP 18; O2SAT 94
[2019-08-19 15:36] VITALS: BP 161/95; PULSE 108; RESP 20; TEMP 37.1; O2SAT 96
[2019-08-19] MEDS: Hydrocortisone 10 MG Tablet 5 MG PO (15:47)
[2019-08-19 15:53] VITALS: BP 164/96; PULSE 101
--- NOTE | 2019-08-19 15:53 | NURSING ---
this nurse checked pt bp manual, 164/96, hr-101. reported to faith chan. will continue to monitor.
--- NOTE | 2019-08-19 16:42 | CHAPLAIN ---
Type of Pastoral Visit ___ Initial Visit _x__ Follow-up Visit ___ On-call Visit ___ General Patient Visit ___ Spiritual Assessment ___ Family Conference ___ Bereavement ___ Rapid Response ___ Code Blue ___ Other (describe below) Pastoral Care Referral From _x__ Patient ___ Family ___ Nurse ___ Physician ___ Teaching Artist ___ Casket Upholsterer ___ Other (describe below) Sacrament/Intervention _x__ Active listening ___ Anointing ___ Zoroastrian ___ Bereavement ___ Communion ___ Jaye exploration ___ _x__ Life review ___ Prayer ___ Reconciliation ___ Sacrament of Sick ___ Supportive presence ___ Wedding ___ Other (describe below) Pastoral Comments finishing more of life story and current needs with this patient as conversation was ended before some topics processed together; pt appears to be and states that I am in much better frame of mind today and people have let me talk about things that I needed to say
[2019-08-19 17:11] LABS: Bedside Glucose 112 mg/dL (70-110)
[2019-08-19] MEDS: Lisinopril 10 MG Tablet PO (17:36)
[2019-08-19] MEDS: Carvedilol 12.5 MG Tablet PO (17:36)
[2019-08-19 17:38] VITALS: BP 166/98; PULSE 106
[2019-08-19 21:01] LABS: Bedside Glucose 113 mg/dL (70-110)
[2019-08-19] MEDS: Amitriptyline 25 MG Tablet PO (21:04)
[2019-08-19] MEDS: Atorvastatin Calcium 40 MG Tablet PO (21:04)
[2019-08-19] MEDS: Nystatin Powder 15gm Bottle 1 APPLIC TOPICAL (21:05)
[2019-08-19] MEDS: Dicyclomine 10 MG Capsule PO (21:15)
[2019-08-19] MEDS: LORazepam 0.5 MG Tablet PO (21:15)
[2019-08-19] MEDS: tiZANidine HCl 2 MG Tablet PO (23:38)
[2019-08-20 06:41] LABS: Bedside Glucose 114 mg/dL (70-110)
[2019-08-20] MEDS: Loratadine 10 MG Tablet PO (06:42)
[2019-08-20] MEDS: Lisinopril 10 MG Tablet PO ×2 (06:42→15:42)
[2019-08-20] MEDS: Acyclovir 200 MG Capsule PO ×2 (06:42→18:06)
[2019-08-20] MEDS: Levothyroxine 88 MCG Tablet PO (06:43)
[2019-08-20] MEDS: Pantoprazole Sodium 40 MG Tablet PO ×2 (06:43→18:06)
[2019-08-20] MEDS: Acetaminophen 500 MG Tablet 1000 MG PO ×3 (06:44→21:01)
[2019-08-20] MEDS: Carvedilol 12.5 MG Tablet PO ×2 (06:48→15:42)
[2019-08-20] MEDS: Nystatin Powder 15gm Bottle 1 APPLIC TOPICAL ×2 (06:49→21:04)
[2019-08-20] MEDS: oxyCODONE 5 MG Tablet PO ×3 (06:52→22:57)
[2019-08-20] MEDS: Magnesium Oxide 400 MG Tablet PO (08:10)
[2019-08-20] MEDS: Calcium Carb/Vitamin D 1 TABLET Tablet PO (08:11)
[2019-08-20] MEDS: Hydrocortisone 10 MG Tablet PO (08:11)
[2019-08-20] MEDS: Multivitamins,Therapeutic Tablet 1 TABLET PO (08:11)
--- NOTE | 2019-08-20 10:36 | CASEMGMT ---
Social Work IDT met with patient for care plan meeting. Discussed patient's progress in therapy. Patient is working with ST and is independent cognitively - they will DC shortly. Pt is SBA for squat pivot transfers, NWB, CGA transfers, modified toilet transfer, min assist for LE ADLs. Patient's goal is to be w/c level and supervision for stand pivot transfers before returning home alone. [facility]. Explained insurance coverage and NRD 08/27 - pt agreeable if goals are met to DC soon after. Will continue to follow. Barby Christopher, ABRASIVE WATER JET CUTTER OPERATOR SAFETY PIN ASSEMBLING MACHINE OPERATOR
--- NOTE | 2019-08-20 10:38 | RAD_ITS ---
STUDY: X-RAY - RIGHT ANKLE REASON FOR EXAM: Female, 58 years old. Recent open reduction internal fixation of the medial malleolar fracture. TECHNIQUE: 3 view(s) of the ankle. COMPARISON: Comparison is made with prior study dated August 14, 2019. FINDINGS: The patient is status post open reduction and internal fixation of the medial malleolar fracture. There has been no change. Plantar spurs. RAD/Ankle 2 Views IMPRESSION: Stable examination. Electronically Signed: John Arredondo, at 11:11 EDT , Service support ,
[2019-08-20] MEDS: LORazepam 0.5 MG Tablet PO ×2 (10:43→21:01)
[2019-08-20 11:25] LABS: Bedside Glucose 111 mg/dL (70-110)
[2019-08-20 15:22] VITALS: BP 163/101; PULSE 102; RESP 18; TEMP 36.8; O2SAT 97
[2019-08-20] MEDS: Hydrocortisone 10 MG Tablet 5 MG PO (15:27)
[2019-08-20] MEDS: Dicyclomine 10 MG Capsule PO (15:45)
[2019-08-20 16:51] LABS: Bedside Glucose 105 mg/dL (70-110)
--- NOTE | 2019-08-20 17:49 | NURSING ---
pt stepped on RT foot when transferring w/staff and very concerned that she put too much weight down. feels different. xray done and no changes. Dr Barry & pt updated
[2019-08-20] MEDS: Atorvastatin Calcium 40 MG Tablet PO (21:02)
[2019-08-20] MEDS: Amitriptyline 25 MG Tablet PO (21:04)
[2019-08-20 21:11] LABS: Bedside Glucose 202 mg/dL (70-110)
--- NOTE | 2019-08-20 22:10 | NURSING ---
PT HAD REQUESTED THAT THIS RN PROVIDE HER W/PAIN MEDICATION AT 2200. WHEN THIS RN ENTERED THE ROOM AT 2210, THE PT WAS SLEEPING. NOT AWOKEN FOR PAIN MEDS AT THIS TIME. WILL CONTINUE TO MONITOR.
[2019-08-21 05:42] VITALS: BP 152/88; PULSE 111; RESP 18; O2SAT 99
[2019-08-21] MEDS: tiZANidine HCl 2 MG Tablet PO (05:43)
[2019-08-21] MEDS: Acyclovir 200 MG Capsule PO ×2 (05:43→17:42)
[2019-08-21] MEDS: Pantoprazole Sodium 40 MG Tablet PO ×2 (05:43→17:42)
[2019-08-21] MEDS: Levothyroxine 88 MCG Tablet PO (05:43)
[2019-08-21] MEDS: Lisinopril 10 MG Tablet PO (05:43)
[2019-08-21] MEDS: oxyCODONE 5 MG Tablet PO ×3 (05:43→22:09)
[2019-08-21] MEDS: Loratadine 10 MG Tablet PO (05:44)
[2019-08-21] MEDS: Carvedilol 12.5 MG Tablet PO ×2 (05:44→17:42)
[2019-08-21] MEDS: Acetaminophen 500 MG Tablet 1000 MG PO ×3 (05:44→21:03)
[2019-08-21] MEDS: Nystatin Powder 15gm Bottle 1 APPLIC TOPICAL ×2 (05:44→21:06)
[2019-08-21 06:21] LABS: Bedside Glucose 83 mg/dL (70-110)
[2019-08-21] MEDS: Hydrocortisone 10 MG Tablet PO (08:21)
[2019-08-21] MEDS: Multivitamins,Therapeutic Tablet 1 TABLET PO (08:21)
[2019-08-21] MEDS: Calcium Carb/Vitamin D 1 TABLET Tablet PO (08:22)
[2019-08-21] MEDS: Magnesium Oxide 400 MG Tablet PO (08:22)
[2019-08-21 08:24] VITALS: PULSE 100
[2019-08-21 08:43] LABS: Anion Gap 10 (5-15); BUN 29 mg/dL (7-18); BUN/Creat Ratio 23.8 RATIO (10-20); Calcium,Total 9.3 mg/dL (8.5-10.1); Chloride 101 mmol/L (98-107); Creatinine, Serum 1.22 mg/dL (0.55-1.02); EST Glomerular Filtration Rate 48 mL/min (>60); Est Glom Filt Rate - Afr Amer 58 mL/min (>60); Estimated Creatinine Clearance 48.88 ml/min; Glucose 153 mg/dL (74-106); Sodium Level 135 mmol/L (136-145)
[2019-08-21 11:10] LABS: Bedside Glucose 187 mg/dL (70-110)
[2019-08-21] MEDS: Hydrocortisone 10 MG Tablet 5 MG PO (15:42)
[2019-08-21 16:00] VITALS: BP 97/69; PULSE 94; RESP 21; TEMP 35.9; O2SAT 97
[2019-08-21 17:00] LABS: Bedside Glucose 126 mg/dL (70-110)
[2019-08-21] MEDS: Atorvastatin Calcium 40 MG Tablet PO (21:04)
[2019-08-21] MEDS: Amitriptyline 25 MG Tablet PO (21:04)
[2019-08-21 21:11] LABS: Bedside Glucose 161 mg/dL (70-110)
[2019-08-21] MEDS: Dicyclomine 10 MG Capsule PO (22:09)
[2019-08-22] MEDS: Nystatin Powder 15gm Bottle 1 APPLIC TOPICAL ×2 (06:06→21:42)
[2019-08-22] MEDS: Acetaminophen 500 MG Tablet 1000 MG PO ×3 (06:08→21:36)
[2019-08-22] MEDS: Acyclovir 200 MG Capsule PO ×2 (06:09→17:29)
[2019-08-22] MEDS: Levothyroxine 88 MCG Tablet PO (06:09)
[2019-08-22] MEDS: Pantoprazole Sodium 40 MG Tablet PO ×2 (06:09→17:29)
[2019-08-22] MEDS: Loratadine 10 MG Tablet PO (06:09)
[2019-08-22] MEDS: Alendronate Sodium 70 MG Tablet PO (06:09)
[2019-08-22 06:11] VITALS: BP 108/78; PULSE 79
[2019-08-22 06:41] LABS: Bedside Glucose 130 mg/dL (70-110)
[2019-08-22] MEDS: Carvedilol 12.5 MG Tablet PO ×2 (08:38→17:29)
[2019-08-22] MEDS: Lisinopril 10 MG Tablet PO ×2 (08:38→17:29)
[2019-08-22] MEDS: Magnesium Oxide 400 MG Tablet PO (08:39)
[2019-08-22] MEDS: Hydrocortisone 10 MG Tablet PO (08:39)
[2019-08-22] MEDS: Calcium Carb/Vitamin D 1 TABLET Tablet PO (08:39)
[2019-08-22] MEDS: Multivitamins,Therapeutic Tablet 1 TABLET PO (08:39)
[2019-08-22] MEDS: oxyCODONE 5 MG Tablet PO ×3 (08:44→21:51)
[2019-08-22 08:45] VITALS: BP 110/78; PULSE 103
[2019-08-22 11:15] VITALS: PULSE 106; RESP 18; O2SAT 98
[2019-08-22 11:46] LABS: Bedside Glucose 141 mg/dL (70-110)
[2019-08-22] MEDS: Hydrocortisone 10 MG Tablet 5 MG PO (13:59)
--- NOTE | 2019-08-22 14:07 | NURSING ---
PT ASKING WHY SHE IS NOT GETTING HER PROTONIX AND WAS WANTING SOME THING FOR HER UPPER LIP DUE TO SORENESS AND BURNING. REPORTED TO DRE GAO
[2019-08-22 16:00] VITALS: BP 174/89; PULSE 100; RESP 18; TEMP 36.7; O2SAT 96
--- NOTE | 2019-08-22 16:28 | CHAPLAIN ---
saw patient in [facility] and she stated that she is having a hard day emotionally due to anniversary of of her SO; listened and offered support for pt
[2019-08-22 17:00] LABS: Bedside Glucose 126 mg/dL (70-110)
[2019-08-22 21:01] LABS: Bedside Glucose 179 mg/dL (70-110)
[2019-08-22] MEDS: Amitriptyline 25 MG Tablet PO (21:36)
[2019-08-22] MEDS: Atorvastatin Calcium 40 MG Tablet PO (21:36)
[2019-08-23 05:43] LABS: Absolute Lymphocyte Count 1.81 X10^3/uL (0.83-4.51); Absolute Neutrophil Count 2.4 X10^3/uL (2.0-7.7); Basophil# 0.04 X10^3/uL; Basophil% 0.7 % (0-1); Eosinophil# 0.49 X10^3/uL; Lymphocyte # 1.81 X10^3/ul (4.0); Lymphocyte % 33.2 % (19-41); Mean Corp Hgb Conc 32.4 g/dL (32-36); Mean Corpuscular Hgb 29.9 pg (27.0-32.0); Mean Corpuscular Volume 92.4 fL (81-99); Mean Platelet Vol. 9.4 fl (6.2-12.0); Monocyte# 0.66 X10^3/uL; Monocyte% 12.1 % (0-10); NRBC Flagged by Analyzer 0 % (0-5); Neutrophil % 44.1 % (47-70); POSITIVE MORPHOLOGY YES; Platelet Count 232 K/mm3 (150-450); RBC Distribution Width CV 14.5 % (11.6-14.6); RBC Distribution Width SD 47.9 fl (35.1-43.9); Red Blood Count 3.68 M/mm3 (4.2-5.4); White Blood Count 5.5 K/mm3 (4.4-11.0)
[2019-08-23 05:47] LABS: Differential Indicated SCAN CRITERIA MET
[2019-08-23 06:01] LABS: Anion Gap 7 (5-15); BUN 22 mg/dL (7-18); Calcium,Total 9.2 mg/dL (8.5-10.1); Chloride 104 mmol/L (98-107); Creatinine, Serum 1.22 mg/dL (0.55-1.02); EST Glomerular Filtration Rate 48 mL/min (>60); Est Glom Filt Rate - Afr Amer 58 mL/min (>60); Estimated Creatinine Clearance 48.88 ml/min; Glucose 125 mg/dL (74-106); Potassium 3.6 mmol/L (3.5-5.1); Reactive Lymphocyte 1+; Sodium Level 137 mmol/L (136-145)
[2019-08-23] MEDS: Pantoprazole Sodium 40 MG Tablet PO ×2 (06:01→17:11)
[2019-08-23] MEDS: Levothyroxine 88 MCG Tablet PO (06:01)
[2019-08-23] MEDS: Carvedilol 12.5 MG Tablet PO ×2 (06:01→17:11)
[2019-08-23] MEDS: Acyclovir 200 MG Capsule PO ×2 (06:01→17:11)
[2019-08-23] MEDS: Lisinopril 10 MG Tablet PO (06:02)
[2019-08-23] MEDS: Loratadine 10 MG Tablet PO (06:02)
[2019-08-23] MEDS: Acetaminophen 500 MG Tablet 1000 MG PO ×3 (06:02→21:14)
[2019-08-23] MEDS: Nystatin Powder 15gm Bottle 1 APPLIC TOPICAL (06:03)
[2019-08-23 06:25] LABS: Bedside Glucose 124 mg/dL (70-110)
[2019-08-23] MEDS: oxyCODONE 5 MG Tablet PO ×3 (06:48→21:59)
[2019-08-23] MEDS: Multivitamins,Therapeutic Tablet 1 TABLET PO (08:01)
[2019-08-23] MEDS: Hydrocortisone 10 MG Tablet PO (08:01)
[2019-08-23] MEDS: Magnesium Oxide 400 MG Tablet PO (08:01)
[2019-08-23] MEDS: Calcium Carb/Vitamin D 1 TABLET Tablet PO (08:01)
[2019-08-23] MEDS: LORazepam 0.5 MG Tablet PO (09:52)
[2019-08-23] MEDS: Tuberculin,Purif.prot.deriv. 50 TU/ML Vial 5 ML ID (09:53)
--- NOTE | 2019-08-23 10:04 | NURSING ---
PT RESTING IN BED AFTER THERAPY. PT ALMOST TEARFUL D/T NOT FEELING RIGHT AFTER THERAPY. REPORTS PAIN TO RT ANKLE AFTER STANDING AND PAIN TO RT SHOULD/ARM AFTER USING WEIGHTS FOR ARM EXERCISES. PT APPEARS ANXIOUS-BECOMING MORE TEARFUL AND FRIGHTENED SHE DESCRIBES HER PROBLEMS. STATES SHE FEELS ANXIOUS. PT MED W/ATIVAN PER REQUEST. ICE PACK TO RT SHOULDER. WILL MONITOR.
[2019-08-23 11:06] LABS: Bedside Glucose 149 mg/dL (70-110)
--- NOTE | 2019-08-23 11:42 | NURSING ---
Dr Barry notified of pt HGB level today, new order to restart plavix.
[2019-08-23] MEDS: Hydrocortisone 10 MG Tablet 5 MG PO (14:16)
[2019-08-23 16:00] VITALS: BP 58/35
[2019-08-23 16:56] LABS: Bedside Glucose 88 mg/dL (70-110)
--- NOTE | 2019-08-23 17:00 | NURSING ---
PT NOTED TO BE HYPOTENSIVE WHEN VS CHECKED AFTER NAP TODAY. PT DENIES SYMPTOMS. PT STATES THIS HAPPENS OCCASIONALLY AFTER NAPS AND SOME MEDS (HAD ATIVAN AND OXY EARLIER) ALSO STATES SHE HAS NOT BEEN DRINKING MUCH TODAY. BP INCREASED TO 117/65 AFTER SITTING UP FOR A WHILE-CONTINUES TO DENY ANY SYMPTOMS. PT AGREEABLE TO TAKING COREG AND REQUESTING TO NOT TAKE LISINOPRIL. WILL CONTINUE TO MONITOR.
[2019-08-23 17:13] VITALS: BP 117/65; PULSE 83; RESP 18; TEMP 36.4; O2SAT 97
[2019-08-23] MEDS: Atorvastatin Calcium 40 MG Tablet PO (21:14)
[2019-08-23] MEDS: Amitriptyline 25 MG Tablet PO (21:14)
[2019-08-23 21:16] LABS: Bedside Glucose 123 mg/dL (70-110)
[2019-08-23] MEDS: Dicyclomine 10 MG Capsule PO (22:00)
[2019-08-24 05:58] VITALS: BP 113/69; PULSE 93; RESP 18; O2SAT 96
[2019-08-24] MEDS: Acyclovir 200 MG Capsule PO ×2 (06:00→17:36)
[2019-08-24] MEDS: oxyCODONE 5 MG Tablet PO ×3 (06:00→22:37)
[2019-08-24] MEDS: Pantoprazole Sodium 40 MG Tablet PO ×2 (06:00→17:36)
[2019-08-24] MEDS: Carvedilol 12.5 MG Tablet PO ×2 (06:01→17:36)
[2019-08-24] MEDS: Clopidogrel Bisulfate 75 MG Tablet PO (06:01)
[2019-08-24] MEDS: Loratadine 10 MG Tablet PO (06:01)
[2019-08-24] MEDS: Levothyroxine 88 MCG Tablet PO (06:01)
[2019-08-24] MEDS: Acetaminophen 500 MG Tablet 1000 MG PO ×3 (06:01→22:02)
[2019-08-24] MEDS: Nystatin Powder 15gm Bottle 1 APPLIC TOPICAL ×2 (06:03→22:07)
[2019-08-24 06:21] LABS: Bedside Glucose 100 mg/dL (70-110)
[2019-08-24] MEDS: Hydrocortisone 10 MG Tablet PO (07:40)
[2019-08-24] MEDS: Magnesium Oxide 400 MG Tablet PO (07:40)
[2019-08-24] MEDS: Multivitamins,Therapeutic Tablet 1 TABLET PO (07:40)
[2019-08-24] MEDS: Calcium Carb/Vitamin D 1 TABLET Tablet PO (07:40)
[2019-08-24 11:35] LABS: Bedside Glucose 110 mg/dL (70-110)
[2019-08-24] MEDS: LORazepam 0.5 MG Tablet PO (11:49)
[2019-08-24] MEDS: Hydrocortisone 10 MG Tablet 5 MG PO (13:35)
[2019-08-24 15:31] VITALS: BP 142/91; PULSE 110; RESP 18; TEMP 36.6; O2SAT 99
[2019-08-24 17:00] LABS: Bedside Glucose 126 mg/dL (70-110)
[2019-08-24] MEDS: Lisinopril 10 MG Tablet PO (17:36)
[2019-08-24 21:41] LABS: Bedside Glucose 100 mg/dL (70-110)
[2019-08-24 21:54] VITALS: PULSE 93; RESP 18; O2SAT 95
[2019-08-24] MEDS: Amitriptyline 25 MG Tablet PO (22:01)
[2019-08-24] MEDS: Atorvastatin Calcium 40 MG Tablet PO (22:01)
[2019-08-25] MEDS: oxyCODONE 5 MG Tablet PO ×4 (02:43→22:42)
[2019-08-25] MEDS: Pantoprazole Sodium 40 MG Tablet PO ×2 (06:17→16:32)
[2019-08-25] MEDS: Clopidogrel Bisulfate 75 MG Tablet PO (06:17)
[2019-08-25] MEDS: Acetaminophen 500 MG Tablet 1000 MG PO ×3 (06:17→21:07)
[2019-08-25] MEDS: Loratadine 10 MG Tablet PO (06:17)
[2019-08-25] MEDS: Carvedilol 12.5 MG Tablet PO ×2 (06:18→16:29)
[2019-08-25] MEDS: Lisinopril 10 MG Tablet PO ×2 (06:18→16:31)
[2019-08-25] MEDS: Acyclovir 200 MG Capsule PO ×2 (06:18→16:32)
[2019-08-25] MEDS: Levothyroxine 88 MCG Tablet PO (06:19)
[2019-08-25] MEDS: Nystatin Powder 15gm Bottle 1 APPLIC TOPICAL ×2 (06:21→21:09)
[2019-08-25 06:26] LABS: Bedside Glucose 113 mg/dL (70-110)
[2019-08-25] MEDS: Multivitamins,Therapeutic Tablet 1 TABLET PO (08:14)
[2019-08-25] MEDS: Hydrocortisone 10 MG Tablet PO (08:14)
[2019-08-25] MEDS: Magnesium Oxide 400 MG Tablet PO (08:14)
[2019-08-25] MEDS: Calcium Carb/Vitamin D 1 TABLET Tablet PO (08:14)
[2019-08-25 10:46] LABS: Bedside Glucose 165 mg/dL (70-110)
--- NOTE | 2019-08-25 10:59 | CASEMGMT ---
Social Work Patient requesting to DC home 08/26 with [facility], whom pt used prior. Referral made. Faxed information to [place] [facility] to restart services - aides cannot start until 08/28 - pt aware and okay to DC. No DME needs. Plan: DC home 08/26 with skilled and nons[facility]illed [facility]. Barby Christopher, CARRILLO PATIENT SERVICE REPRESENTATIVE
[2019-08-25 15:22] VITALS: BP 142/85; PULSE 87; RESP 18; TEMP 36.3; O2SAT 99
[2019-08-25] MEDS: Hydrocortisone 10 MG Tablet 5 MG PO (16:29)
[2019-08-25 17:00] LABS: Bedside Glucose 113 mg/dL (70-110)
--- NOTE | 2019-08-25 20:17 | PCM.DC ---
- Discharge Diagnoses Current Active Problems: Current Active and Chronic Problems (Last Updated 08/25/19 @ 15:54 by Alayna Galloway) Debility (Acute) Near syncope (Acute) Foot fracture, right (Acute) Closed right ankle fracture (Acute) Cardiomyopathy (Chronic) Stroke (Chronic) Right hemiparesis (Chronic) Gait difficulty (Chronic) Diabetes mellitus (Chronic) Irritable bowel syndrome (Chronic) Muscle spasm (Chronic) Allergic rhinitis (Chronic) GERD (gastroesophageal reflux disease) (Chronic) Herpes simplex (Chronic) You will use the following diet at home:: No restrictions, Regular Your food should be the consistency of: Regular Your liquids should be the consistency of: Regular/Thin Discharge Activity: Return to Normal Activity, May Shower, Use Walker Weight Bearing Status: No weight bearing - Right lower extremity. Call your doctor if you observe: Fever of 101 or Higher, Inability to urinate, Inability to have a bowel movement, Shortness of breath, Chest pain, Uncontrolled pain Allergies/Adverse Reactions: Allergies adhesive Allergy (Verified 08/25/19 15:28) skin irritation amlodipine [From Norvasc] Allergy (Verified 08/25/19 15:28) tachycardia hydromorphone HCl [From Dilaudid] Allergy (Verified 08/25/19 15:28) Itching sulfamethoxazole [From Bactrim] Allergy (Verified 08/25/19 15:28) made my cold sore huge trimethoprim [From Bactrim] Allergy (Verified 08/25/19 15:28) made my cold sore huge Medications to take at Discharge Levothyroxine Sodium [Levoxyl] 88 mcg PO DAILY 11/17/17 Multivitamin [Multiple Vitamins] 1 ea PO DAILY 12/29/17 Pantoprazole Sodium [Protonix] 40 mg PO BID 03/29/19 Amitriptyline HCl 25 mg PO QHS 08/10/19 Valacyclovir HCl [Valacyclovir] 500 mg PO DAILY 08/10/19 Acetaminophen [Tylenol] 1,000 mg PO Q8 tablet 08/25/19 Alendronate Sodium [Fosamax] 70 mg PO Q7D@0700 #4 tab 08/25/19 Calcium Carb/Vitamin D [Os-Jose 500MG + D] 1 tablet PO DAILYCM tablet 08/25/19 Carvedilol [Coreg (Beta Eleni)] 12.5 mg PO BID #60 tab 08/25/19 Clopidogrel Bisulfate [Plavix] 75 mg PO DAILY tablet 08/25/19 Dicyclomine HCl [Bentyl] 10 mg PO TID PRN PRN capsule 08/25/19 Hydrocortisone [Cortef] 5 mg PO 1500 #30 tab 08/25/19 Hydrocortisone [Cortef] 10 mg PO DAILY@0800 #30 tab 08/25/19 Lisinopril [Zestril] 10 mg PO BID tablet 08/25/19 Lorazepam [Ativan] 0.5 mg PO Q8H PRN PRN #30 tab 08/25/19 Magnesium Oxide [Mag-Ox 400] 400 mg PO DAILYCM #30 tab 08/25/19 Nystatin Powder [Mycostatin Powder] 1 applic TOPICAL 0600,2200 bottle 08/25/19 Oxycodone [Oxyir] 5 mg PO Q4H PRN PRN 7 Days #30 tab 08/25/19 Polyethylene Glycol 3350 [Miralax] 17 gm PO DAILY #30 packet 08/25/19 Tizanidine HCl [Zanaflex] 2 mg PO TID PRN PRN tablet 08/25/19 rosuvastatin 20 mg tablet 20 mg PO DAILY 08/25/19 The following prescriptions were given: Lorazepam [Ativan] 0.5 mg PO Q8H PRN PRN #30 tab PRN Reason: Anxiety Prescription Printed Carvedilol [Coreg (Beta Eleni)] 12.5 mg PO BID #60 tab Transmission Status: Pending to [facility] 074 Hydrocortisone [Cortef] 10 mg PO DAILY@0800 #30 tab Transmission Status: Pending to [facility] 074 Hydrocortisone [Cortef] 5 mg PO 1500 #30 tab Transmission Status: Pending to [facility] 074 Alendronate Sodium [Fosamax] 70 mg PO Q7D@0700 #4 tab Transmission Status: Pending to [facility] 074 Magnesium Oxide [Mag-Ox 400] 400 mg PO DAILYCM #30 tab Transmission Status: Pending to [facility] 074 Polyethylene Glycol 3350 [Miralax] 17 gm PO DAILY #30 packet Transmission Status: Pending to [facility] Oxycodone [Oxyir] 5 mg PO Q4H PRN PRN 7 Days #30 tab PRN Reason: Pain Score 1-10/10 Prescription Printed Primary Care Physician: Brandon Torres DO [Primary Care Provider] - Please follow up with your Primary Care Physician in: 1 week. Test Results: Test results from this visit will be discussed in further detail at your follow-up appointment, if applicable. Please Follow Up With: Dr. Torres (PCP) When: AT DC Please Follow Up With: Dr Robin Obrien When: 2 weeks. Please Follow Up With: Dr Cervantes When: 2 weeks. Proposed Discharge Date: 08/26/19
--- NOTE | 2019-08-25 20:20 | DS.PCM_ITS ---
Discharge Date and Diagnosis - Problem List Patient Problems: Active and Suspected Problems (Last Updated 08/25/19 @ 15:54 by Alayna Galloway) Debility (Acute) Near syncope (Acute) Foot fracture, right (Acute) Closed right ankle fracture (Acute) Date of Admission: 08/15/19 Date of Discharge: 08/26/19 - Primary Discharge Diagnosis Active and Suspected Problems (Last Updated 08/25/19 @ 15:54 by Alayna Galloway) Debility (Acute) Near syncope (Acute) Foot fracture, right (Acute) Closed right ankle fracture (Acute) - Secondary Discharge Diagnosis Chronic Problems (Last Updated 08/25/19 @ 15:54 by Alayna Galloway) Falls (Chronic) 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 ACTH deficiency (Chronic) new diagnosis - Secondary adrenal insufficiency (Chronic) new diagnosis - likely due to pituitary or hypothalamic disease Normochromic normocytic anemia (Chronic) etiology never identified - may be due to chronic adrenal insufficiency Hypothyroidism, secondary/tertiary (Chronic) Osteoporosis (Chronic) suspected, has not had a BMD......I suspect this is severe Cardiomyopathy (Chronic) Stroke (Chronic) Right hemiparesis (Chronic) Gait difficulty (Chronic) Diabetes mellitus (Chronic) Irritable bowel syndrome (Chronic) Muscle spasm (Chronic) Allergic rhinitis (Chronic) GERD (gastroesophageal reflux disease) (Chronic) Herpes simplex (Chronic) Carotid artery stenosis (Chronic) Hyperlipemia (Chronic) Hypertension (Chronic) Coronary artery disease (Chronic) Diabetes mellitus, type 2 (Chronic) History of Clostridium difficile infection (Chronic) Hx of diverticulitis of colon (Chronic) Status post partial colectomy Obesity (Chronic) Chronic constipation with suspected IBS (Chronic) History of ischemic colitis (Chronic) Bilateral leg weakness (Chronic) Hospital Course and Treatment Imaging Results: 08/15/19 22:07 Diet: Cardiac: Calorie-Controlled Food consistency:: Regular Liquid Consistency:: Regular/Thin How many daily calories?: 1800 calorie Clinical Impression(s) from Imaging Studies Chest X-Ray 08/17/19 10:50 IMPRESSION: No acute thoracic pathology. Electronically Signed: Palmer Vivas, at 11:40 EDT Tel , Service support , Ankle X-Ray 08/20/19 10:38 IMPRESSION: Stable examination. Electronically Signed: John Arredondo, at 11:11 EDT , Service support , Labs (Last 48 Hours) 08/23/19 08/24/19 08/24/19 21:06 06:13 11:09 POC Glucose 123 H 100 110 08/24/19 08/24/19 08/25/19 16:52 21:29 06:18 POC Glucose 126 H 100 113 H 08/25/19 08/25/19 10:34 16:43 POC Glucose 165 H 113 H Operations: None Procedures: None Summary of Care Provided: The patient is a 58 year old Female with below past medical history hospitalized for fall, near syncope, right ankle fracture requiring ORIF 08/13/[address] Cervantes, complicated by weakness, neuropathy, admitted to TCU with debility, here for rehabilitation, strengthening, prior to discharge home alone. Cortef added for adrenal insufficiency, outpatient follow up with Dr. Robin Obrien. Discharge home alone with [facility] for PT/OT/SN, and [facility] nonskilled for Home Health Aide. Patient Problems: Active and Suspected Problems (Last Updated 08/25/19 @ 15:54 by Alayna Galloway) Debility (Acute) Near syncope (Acute) Foot fracture, right (Acute) Closed right ankle fracture (Acute) - Physical Exam Vitals/I&O's: Vital Signs Temp Pulse Resp BP Pulse Ox 97.4 F L 87 18 142/85 H 99 08/25/19 15:22 08/25/19 15:22 08/25/19 15:22 08/25/19 15:22 08/25/19 15:22 Oxygen Delivery Method Room Air Weight: 105.404 kg Body Mass Index (BMI) 36.1 Finger Stick Blood Glucose 154 Intake and Output for Last 24 Hours 08/23/19 08/24/19 08/25/19 23:59 23:59 23:59 Intake Total 1290 / 1290 1200 / 1200 1160 / 1160 Output Total 125 / 125 Balance 1165 / 1165 1200 / 1200 1160 / 1160 Laboratory Results 08/24/19 21:29: POC Glucose 100 08/25/19 06:18: POC Glucose 113 H 08/25/19 10:34: POC Glucose 165 H 08/25/19 16:43: POC Glucose 113 H Current Medications Acetaminophen (Tylenol) 1,000 mg PO Q8 COUNTS INCLUDE 234 BEDS AT THE [facility] Last Admin: 08/25/19 13:42 Dose: 1,000 mg Documented by: Acyclovir (Zovirax) 200 mg PO BID COUNTS INCLUDE 234 BEDS AT THE [facility] Last Admin: 08/25/19 16:32 Dose: 200 mg Documented by: Alendronate Sodium (Fosamax) 70 mg PO Q7D@0700 COUNTS INCLUDE 234 BEDS AT THE [facility] Last Admin: 08/22/19 06:09 Dose: 70 mg Documented by: Amitriptyline HCl (Elavil) 25 mg PO QHS COUNTS INCLUDE 234 BEDS AT THE [facility] Last Admin: 08/24/19 22:01 Dose: 25 mg Documented by: Atorvastatin Calcium (Lipitor) 40 mg PO QHS COUNTS INCLUDE 234 BEDS AT THE [facility] Last Admin: 08/24/19 22:01 Dose: 40 mg Documented by: Bisacodyl (Dulcolax) 10 mg RECTAL DAILY PRN PRN PRN Reason: Constipation Cal[facility]itamin [facility] ([facility]Jose [facility] + D[facility] Last Admin: 08/25/19 08:14 Dose: 1 tablet Documented by: Carvedilol (Coreg) 12.5 mg PO BID COUNTS INCLUDE 234 BEDS AT THE [facility] Last Admin: 08/25/19 16:29 Dose: 12.5 mg Documented by: Clopidogrel Bisulfate (Plavix) 75 mg PO DAILY COUNTS INCLUDE 234 BEDS AT THE [facility] Last Admin: 08/25/19 06:17 Dose: 75 mg Documented by: Dicyclomine HCl (Bentyl) 10 mg PO TID PRN PRN PRN Reason: abdominal cramping Last Admin: 08/23/19 22:00 Dose: 10 mg Documented by: Hydrocortisone (Cortef) 5 mg PO 1500 COUNTS INCLUDE 234 BEDS AT THE [facility] Last Admin: 08/25/19 16:29 Dose: 5 mg Documented by: Hydrocortisone (Cortef) 10 mg PO DAILY@0800 COUNTS INCLUDE 234 BEDS AT THE [facility] Last Admin: 08/25/19 08:14 Dose: 10 mg Documented by: Levothyroxine Sodium (Synthroid) 88 mcg PO DAILY COUNTS INCLUDE 234 BEDS AT THE [facility] Last Admin: 08/25/19 06:19 Dose: 88 mcg Documented by: Lisinopril (Zestril) 10 mg PO BID COUNTS INCLUDE 234 BEDS AT THE [facility] Last Admin: 08/25/19 16:31 Dose: 10 mg Documented by: Loratadine (Claritin) 10 mg PO DAILY COUNTS INCLUDE 234 BEDS AT THE [facility] Last Admin: 08/25/19 06:17 Dose: 10 mg Documented by: Lorazepam (Ativan) 0.5 mg PO Q8H PRN PRN PRN Reason: ANXIETY Last Admin: 08/24/19 11:49 Dose: 0.5 mg Documented by: Magnesium Oxide (Mag-Ox 400) [facility] Last Admin: 08/25/19 08:14 Dose: 400 mg Documented by: Multivitamins (Multivitamin) 1 tablet PO DAILY@0800 COUNTS INCLUDE 234 BEDS AT THE [facility] Last Admin: 08/25/19 08:14 Dose: 1 tablet Documented by: Nystatin (Mycostatin Powder) 1 applic TOPICAL 0600,2200 COUNTS INCLUDE 234 BEDS AT THE [facility]; Protocol Last Admin: 08/25/19 06:21 Dose: 1 applicatio Documented by: Oxycodone HCl (Oxyir) 5 mg PO Q4H PRN PRN PRN Reason: Pain Score 1-10/10 Last Admin: 08/25/19 13:45 Dose: 5 mg Documented by: Pantoprazole Sodium (Protonix) 40 mg PO BID COUNTS INCLUDE 234 BEDS AT THE [facility] Last Admin: 08/25/19 16:32 Dose: 40 mg Documented by: Polyethylene Glycol (Miralax) 17 gm PO DAILY COUNTS INCLUDE 234 BEDS AT THE [facility] Last Admin: 08/25/19 06:19 Dose: Not Given Documented by: Senna/Docusate Sodium (Senokot-S, Lesli-Colace) 1 tablet PO BID COUNTS INCLUDE 234 BEDS AT THE [facility] Last Admin: 08/25/19 16:32 Dose: Not Given Documented by: Sodium Chloride () 5 - 15 ml IV UD PRN PRN Reason: SALINE FLUSH Last Admin: 08/18/19 20:06 Dose: 10 ml Documented by: Tizanidine HCl (Zanaflex) 2 mg PO TID PRN PRN PRN Reason: MUSCLE SPASM Last Admin: 08/21/19 05:43 Dose: 2 mg Documented by: Discharge Diet: No Restrictions Discharge Activity: Return to Normal Activity, May Shower, Use Walker Weight Bearing Status: No weight bearing - Right lower extremity. Call your doctor if you observe: Fever of 101 or Higher, Inability to urinate, Inability to have a bowel movement, Shortness of breath, Chest pain, Uncontrolled pain Home Medications: Medications to take at Discharge Levothyroxine Sodium [Levoxyl] 88 mcg PO DAILY 11/17/17 Multivitamin [Multiple Vitamins] 1 ea PO DAILY 12/29/17 Pantoprazole Sodium [Protonix] 40 mg PO BID 03/29/19 Amitriptyline HCl 25 mg PO QHS 08/10/19 Valacyclovir HCl [Valacyclovir] 500 mg PO DAILY 08/10/19 Acetaminophen [Tylenol] 1,000 mg PO Q8 tablet 08/25/19 Alendronate Sodium [Fosamax] 70 mg PO Q7D@0700 #4 tab 08/25/19 Calcium Carb/Vitamin D [Os-Jose 500MG + D] 1 tablet PO DAILYCM tablet 08/25/19 Carvedilol [Coreg (Beta Eleni)] 12.5 mg PO BID #60 tab 08/25/19 Clopidogrel Bisulfate [Plavix] 75 mg PO DAILY tablet 08/25/19 Dicyclomine HCl [Bentyl] 10 mg PO TID PRN PRN capsule 08/25/19 Hydrocortisone [Cortef] 5 mg PO 1500 #30 tab 08/25/19 Hydrocortisone [Cortef] 10 mg PO DAILY@0800 #30 tab 08/25/19 Lisinopril [Zestril] 10 mg PO BID tablet 08/25/19 Lorazepam [Ativan] 0.5 mg PO Q8H PRN PRN #30 tab 08/25/19 Magnesium Oxide [Mag-Ox 400] 400 mg PO DAILYCM #30 tab 08/25/19 Nystatin Powder [Mycostatin Powder] 1 applic TOPICAL 0600,2200 bottle 08/25/19 Oxycodone [Oxyir] 5 mg PO Q4H PRN PRN 7 Days #30 tab 08/25/19 Polyethylene Glycol 3350 [Miralax] 17 gm PO DAILY #30 packet 08/25/19 Tizanidine HCl [Zanaflex] 2 mg PO TID PRN PRN tablet 08/25/19 rosuvastatin 20 mg tablet 20 mg PO DAILY 08/25/19 Following Prescrptions Were Given to Patient: Lorazepam [Ativan] 0.5 mg PO Q8H PRN PRN #30 tab PRN Reason: Anxiety Prescription Printed Carvedilol [Coreg (Beta Eleni)] 12.5 mg PO BID #60 tab Transmission Status: Pending to [facility] 07 Hydrocortisone [Cortef] 10 mg PO DAILY@0800 #30 tab Transmission Status: Pending to [facility] 074 Hydrocortisone [Cortef] 5 mg PO 1500 #30 tab Transmission Status: Pending to [facility] 074 Alendronate Sodium [Fosamax] 70 mg PO Q7D@0700 #4 tab Transmission Status: Pending to [facility] 074 Magnesium Oxide [Mag-Ox 400] 400 mg PO DAILYCM #30 tab Transmission Status: Pending to [facility] 074 Polyethylene Glycol 3350 [Miralax] 17 gm PO DAILY #30 packet Transmission Status: Pending to [facility] 074 Oxycodone [Oxyir] 5 mg PO Q4H PRN PRN 7 Days #30 tab PRN Reason: Pain Score 1-10 Prescription Printed Primary Care Physician: Brandon Torres DO [Primary Care Provider] - Please follow up with your Primary Care Physician in: 1 week. Please Follow Up With: Dr. Torres (PCP) When: AT DC Please Follow Up With: Dr Robin Obrien When: 2 weeks. Please Follow Up With: Dr Cervantes When: 2 weeks. Disposition: Home with Home Health Minutes spent on discharge:: 35 Patient Condition:: Stable Medical Necessity - Tobacco Use Smoking Status: Former smoker Meaningful Use Info Meaningful Use Diagnoses (Choose all that apply): None applicable
--- NOTE | 2019-08-25 20:22 | PCM.PN.HH ---
Home Health Note - Plan Overview of reason of hospitalization: The patient is a 58 year old Female with below past medical history hospitalized for fall, near syncope, right ankle fracture requiring ORIF 08/13/[address] Cervantes, complicated by weakness, neuropathy, admitted to TCU with debility, here for rehabilitation, strengthening, prior to discharge home alone. Cortef added for adrenal insufficiency, outpatient follow up with Dr. Robin Obrien. Discharge home alone with [facility] for PT[facility]OT/SN, and [facility]. Problems: Patient was seen for (Last Updated 08/25/19 @ 15:54 by Alayna Galloway) Debility (Acute) Near syncope (Acute) Foot fracture, right (Acute) Closed right ankle fracture (Acute) Cardiomyopathy (Chronic) Stroke (Chronic) Right hemiparesis (Chronic) Gait difficulty (Chronic) Diabetes mellitus (Chronic) Irritable bowel syndrome (Chronic) Muscle spasm (Chronic) Allergic rhinitis (Chronic) GERD (gastroesophageal reflux disease) (Chronic) Herpes simplex (Chronic) Complete List of Medical Problems (Last Updated 08/25/19 @ 15:54 by Alayna Galloway) Toe fracture, right (Acute) Ankle fracture (Acute) Falls (Chronic) Neuropathy (Chronic) History of stroke (Acute) ACTH deficiency (Chronic) Secondary adrenal insufficiency (Chronic) Normochromic normocytic anemia (Chronic) Heme positive stool (Acute) Hypomagnesemia (Acute) Hypothyroidism, secondary/tertiary (Chronic) Osteoporosis (Chronic) Debility (Acute) Near syncope (Acute) Foot fracture, right (Acute) Closed right ankle fracture (Acute) Cardiomyopathy (Chronic) Stroke (Chronic) Right hemiparesis (Chronic) Gait difficulty (Chronic) Diabetes mellitus (Chronic) Irritable bowel syndrome (Chronic) Muscle spasm (Chronic) Allergic rhinitis (Chronic) GERD (gastroesophageal reflux disease) (Chronic) Herpes simplex (Chronic) Hypotension (Acute) Carotid artery stenosis (Chronic) Hyperlipemia (Chronic) Hypertension (Chronic) Coronary artery disease (Chronic) Diabetes mellitus, type 2 (Chronic) History of Clostridium difficile infection (Chronic) Hx of diverticulitis of colon (Chronic) Obesity (Chronic) Chronic constipation with suspected IBS (Chronic) History of ischemic colitis (Chronic) Bilateral leg weakness (Chronic) - Requirements and Reasons Disciplines Needed/Ordered: Assisted, Physical Therapy Reason for Disciplines: Disease Specific Monitoring/education, Medication Management/Knowledge Deficit, Gait Training, Stair Training, Fall Prevention, Home Safety/Equipment Instruction, Balance and/or Posture Training, Transfer Training Related To: Change in Medical Treatment Plan, Limited/Poor Endurance, Shortness of Breath with Activity, Physical Impairments, Unsteady Gait/Balance, Fall Risk Patient is unable to leave the home: Without Aid of Supportive Devices (crutches, cane, wheelchair, walker), Without the assistance of another person, Because it is medically contraindicated Medically Contraindicated related to: Weight Bearing Status - Additional Disciplines Additional Disciplines Needed/Ordered: Occupational Therapy
[2019-08-25] MEDS: Atorvastatin Calcium 40 MG Tablet PO (21:07)
[2019-08-25] MEDS: Amitriptyline 25 MG Tablet PO (21:07)
[2019-08-25 21:26] LABS: Bedside Glucose 114 mg/dL (70-110)
[2019-08-26 06:31] LABS: Bedside Glucose 134 mg/dL (70-110)
[2019-08-26] MEDS: Levothyroxine 88 MCG Tablet PO (06:55)
[2019-08-26] MEDS: Clopidogrel Bisulfate 75 MG Tablet PO (06:56)
[2019-08-26] MEDS: Loratadine 10 MG Tablet PO (06:57)
[2019-08-26] MEDS: Carvedilol 12.5 MG Tablet PO (06:57)
[2019-08-26] MEDS: Pantoprazole Sodium 40 MG Tablet PO (06:57)
[2019-08-26] MEDS: Acyclovir 200 MG Capsule PO (06:57)
[2019-08-26] MEDS: Nystatin Powder 15gm Bottle 1 APPLIC TOPICAL (06:58)
[2019-08-26] MEDS: Acetaminophen 500 MG Tablet 1000 MG PO (06:58)
--- NOTE | 2019-08-26 07:00 | NURSING ---
Held pt lisinopril d/t Bp 98/73 sitting up right arm, HR-87. Pt stated, I'm taking coreg. Rn made aware.
[2019-08-26] MEDS: oxyCODONE 5 MG Tablet PO (08:09)
[2019-08-26] MEDS: Calcium Carb/Vitamin D 1 TABLET Tablet PO (08:11)
[2019-08-26] MEDS: Magnesium Oxide 400 MG Tablet PO (08:12)
[2019-08-26] MEDS: Multivitamins,Therapeutic Tablet 1 TABLET PO (08:12)
[2019-08-26] MEDS: Hydrocortisone 10 MG Tablet PO (08:12)
[2019-08-26 09:40] VITALS: PULSE 90; RESP 18; O2SAT 99
[2019-08-26 11:38] VITALS: BP 132/75; PULSE 80; RESP 16; TEMP 36.7; O2SAT 98
--- NOTE | 2019-08-27 11:14 | CASEMGMT ---
INSURANCE: Left with insurance informing of discharge home on 08/26/19 with skilled PT/OT/SN. Auth # [id number] CORBY Zuniga
--- NOTE | 2019-08-27 11:40 | CASEMGMT ---
INSURANCE VM left with insurance that pt d/c home on 08/26 with home health PT/OT/SN. Auth # [id number] CORBY Zuniga
--- NOTE | 2019-08-28 13:49 | MDS.RN ---
Information for the mds was obtained from review of the clinical record, interview of resident, staff, and direct observation of resident's care.
== END 2019-08-26 11:40 | disposition home health service (06) | DRG 560 ==
PROVIDERS: Admitting Provider Family Medicine Geriatric Medicine; Family Provider Student in an Organized Health Care Education/Training Program; PCP Student in an Organized Health Care Education/Training Program; Visit Provider Family Medicine Geriatric Medicine
DX: S82.51XD Displaced fracture of medial malleolus of right tibia, subsequent encounter for closed fracture with routine healing (principal); E27.49 Other adrenocortical insufficiency; G81.91 Hemiplegia, unspecified affecting right dominant side; W19.XXXD Unspecified fall, subsequent encounter; K21.9 Gastro-esophageal reflux disease without esophagitis; K58.9 Irritable bowel syndrome, unspecified; S92.324D Nondisplaced fracture of second metatarsal bone, right foot, subsequent encounter for fracture with routine healing; S92.334D Nondisplaced fracture of third metatarsal bone, right foot, subsequent encounter for fracture with routine healing; S92.344D Nondisplaced fracture of fourth metatarsal bone, right foot, subsequent encounter for fracture with routine healing; I10 Essential (primary) hypertension; E03.8 Other specified hypothyroidism; E78.5 Hyperlipidemia, unspecified; I25.10 Atherosclerotic heart disease of native coronary artery without angina pectoris; E66.9 Obesity, unspecified; Z87.891 Personal history of nicotine dependence; Z68.37 Body mass index [BMI] 37.0-37.9, adult; Z71.3 Dietary counseling and surveillance; E11.42 Type 2 diabetes mellitus with diabetic polyneuropathy; B00.9 Herpesviral infection, unspecified; Z23 Encounter for immunization; F41.9 Anxiety disorder, unspecified; K58.1 Irritable bowel syndrome with constipation; E03.9 Hypothyroidism, unspecified; D64.9 Anemia, unspecified
CPT/HCPCS: 36415; 71045; 73600; 80048; 82962; 83735; 85014; 85018; 85025; 86850; 86900; 86901; 86920; 86922; 87633; 92507; 92523; 97110; 97162; 97166; 97530; 97535; 97802; 90686; A4216

== ENCOUNTER 2019-08-17 10:24 | Outpatient (CLI) | payer MEDICARE, MEDICAID, SELFPAY ==
[2019-08-17] VITALS (10 sets, daily range): BP systolic 145–185; BP diastolic 92–109; PULSE 87–113; RESP 16–18; TEMP 37.1–37.7; O2SAT 97–100
[2019-08-17 12:05] LABS: Bedside Glucose 147 mg/dL (70-110)
--- NOTE | 2019-08-17 13:14 | NURSING ---
iv leaking small amt red drng. dressing changed and then scant amt again noted but then has stopped. attempted to restart x2 but unsucessful. will continue with present iv site and will monitor. supervisor long goods aware and will come look for 2nd site. pt gage blood well with no sign if immediate reaction. up to [facility] x2 spt for void and bm
[2019-08-17] MEDS: Furosemide 20 MG/2 ML VIAL IV (14:01)
--- NOTE | 2019-08-17 14:38 | NURSING ---
dr rajiv solis texted pt's bp and waiting on orders.
--- NOTE | 2019-08-17 16:20 | NURSING ---
dr vance paged through driver courier d/t continue hypertension and pt's concerns. clonodine 0.1mg po x1 ordered. pt aware and pharmacy to send.up to [facility]. some shakiness obs though pt sl anxious over bp.
[2019-08-17] MEDS: cloNIDine HCl 0.1 MG Tablet PO (16:35)
[2019-08-17] MEDS: 0.9% NaCl Peripheral Flush Adult/Peds IV (16:56)
--- NOTE | 2019-08-17 16:59 | NURSING ---
report called to sarah in tcu with no questions voiced. bp still elevated and teaching given on time needed till med works and that will be monitoring pt and that tcu rn aware. pt still with seemingly mod anxiety over bp and worrying about stroke.
[2019-08-17 17:01] LABS: Bedside Glucose 97 mg/dL (70-110)
== END 2019-08-17 17:20 | disposition skilled nursing facility (03) ==
LOC: MS3OUT 10:26 → MS3 10:26
PROVIDERS: Family Provider Student in an Organized Health Care Education/Training Program; PCP Student in an Organized Health Care Education/Training Program; Visit Provider Family Medicine Geriatric Medicine
DX: D64.9 Anemia, unspecified (principal)
CPT/HCPCS: 36430; 82962; 86644; 86850; 86900; 86901; 86920; 86922; P9040; A4216; J1940

== ENCOUNTER → 2019-09-04 09:44 | Outpatient (CLI) | payer MEDICARE, MEDICAID, SELFPAY ==
[2019-09-04 09:26] VITALS: BMI 37.3
--- NOTE | 2019-09-04 09:46 | RAD_ITS ---
STUDY: X-RAY - RIGHT ANKLE REASON FOR EXAM: Postoperative follow-up. TECHNIQUE: 3 view(s) of the ankle. COMPARISON: Radiographs 08/20/2019. FINDINGS: There is intact orthopedic hardware transfixing a medial malleolar fracture in anatomic alignment and position. Normal tibiotalar articulation and ankle mortise. There are posterior and plantar calcaneal enthesophytes. The visualized subtalar, talonavicular, calcaneocuboid and tarsal articulations are normal. There are anterior phleboliths of the distal lower leg. RAD/Ankle min 3 Views IMPRESSION: ORIF of medial malleolar fracture remaining in anatomic alignment and position. Electronically Signed: Zaheer Stout MD at 11:21 EDT Tel , Service support ,
== END ==
PROVIDERS: Family Provider Student in an Organized Health Care Education/Training Program; PCP Student in an Organized Health Care Education/Training Program; Referring Provider Orthopaedic Surgery; Visit Provider Orthopaedic Surgery
DX: M25.571 Pain in right ankle and joints of right foot (principal)
CPT/HCPCS: 73610

== ENCOUNTER → 2019-09-09 14:39 | Outpatient (CLI) | payer MEDICARE, SELFPAY ==
[2019-08-15 22:26] VITALS: BMI 36.1
[2019-09-04 17:02] VITALS: BMI 37.3
--- NOTE | 2019-09-09 15:07 | BD_ITS ---
STUDY: DUAL ENERGY X-RAY ABSORPTIOMETRY / DXA REASON FOR EXAM: Female, 58 years old. The patient is postmenopausal. Loss of height. TECHNIQUE: Bone Mineral Density (BMD) measurements of lumbar spine and right hip were obtained. COMPARISON: None. FINDINGS: Lumbar Spine (L1-L4): g/cm2 (1.314) / T-score (1.2) / Z-score (2.3) Findings are suggestive of normal bone density with a low fracture risk. Right Femur Total: g/cm2 (0.972) / T-score (-0.3) / Z-score (0.6) Right Femoral Neck: g/cm2 (1.088) / T-score (0.4) / Z-score (1.5) BD/Dexa Bone Density Study IMPRESSION: The patient is considered normal as outlined below according to World Shant Organization (WHO) criteria with a low fracture risk. Reference Information: The T-score is the number of standard deviations above or below the standard which is normal for young adults at their peak bone mineral density. The World Health Organization (WHO) interprets the T-scores as follows: Above -1 Normal bone density Between -1 and -2.5 Osteopenia Equal to / or below -2.5 Osteoporosis As a practical clinical guideline, osteopenia may be graded as follows: Mild -1 through -1.5 Moderate -1.6 through -2.0 Severe -2.1 through -2.4 The Z-score is the number of standard deviations above or below age-matched controls. A Z-score of less than -1.5 would be considered abnormal. References: 1. NIH Osteoporosis and Related Bone Diseases http://www.osteo.org 2. International Society for Clinical Densitometry http://www.iscd.org 3. National Osteoporosis Foundation http://www.nof.org Electronically Signed: John Arredondo, at 9:40 EST , Service support ,
== END ==
PROVIDERS: Family Provider Student in an Organized Health Care Education/Training Program; PCP Student in an Organized Health Care Education/Training Program; Referring Provider Student in an Organized Health Care Education/Training Program; Visit Provider Student in an Organized Health Care Education/Training Program
DX: Z78.0 Asymptomatic menopausal state (principal)
CPT/HCPCS: 77080

== ENCOUNTER → 2019-09-26 09:15 | Outpatient (CLI) | payer MEDICARE, MEDICAID, SELFPAY ==
[2019-09-04 17:02] VITALS: BMI 37.3
--- NOTE | 2019-09-26 09:16 | RAD_ITS ---
STUDY: X-RAY - RIGHT ANKLE REASON FOR EXAM: Female, 58 years old. Postop. TECHNIQUE: 3 view(s) of the ankle. COMPARISON: 09/04/2019. FINDINGS: Intact metallic plate and transfixing screws in the distal tibia extending down to the medial malleolus and intact threaded screws extending from the distal fibula to the distal tibia. These are unchanged. The cast around the right ankle is the only new finding. RAD/Ankle min 3 Views IMPRESSION: Interval placement of cast around the right ankle otherwise the metallic plate and transfixing screws in the distal tibia extending down to the medial malleolus and the threaded metallic screws extending from the distal fibula to the distal tibia are unchanged. Electronically Signed: David Harrell MD at 10:26 EST , Service support ,
== END ==
PROVIDERS: Family Provider Student in an Organized Health Care Education/Training Program; PCP Student in an Organized Health Care Education/Training Program; Referring Provider Physician Assistant; Visit Provider Physician Assistant
DX: S82.51XA Displaced fracture of medial malleolus of right tibia, initial encounter for closed fracture (principal)
CPT/HCPCS: 73610

== ENCOUNTER → 2019-12-02 12:39 | Outpatient (CLI) | payer MEDICAID, MEDICARE, SELFPAY ==
[2019-12-02 12:28] VITALS: BMI 37.3
--- NOTE | 2019-12-02 12:40 | RAD_ITS ---
STUDY: X-RAY - RIGHT ANKLE REASON FOR EXAM: Postoperative follow-up, surgery in August. TECHNIQUE: 3 view(s) of the ankle. COMPARISON: Radiographs 09/26/2019. FINDINGS: There are intact orthopedic screws transfixing a healing medial malleolar fracture. There are syndesmotic screws. There is a healed fracture of the posterior malleolus. There is an ossicle at the distal aspect of the lateral malleolus as on the prior study. Normal tibiotalar articulation and ankle mortise. There are posterior and plantar calcaneal enthesophytes. There is a small os trigonum. The visualized subtalar, talonavicular, calcaneocuboid and tarsal articulations are normal. The soft tissue structures are unremarkable. RAD/Ankle min 3 Views IMPRESSION: Intact orthopedic hardware transfixing a healing medial malleolar fracture. Electronically Signed: Zaheer Stout MD at 9:44 EST Tel , Service support ,
== END ==
PROVIDERS: PCP Student in an Organized Health Care Education/Training Program; Referring Provider Orthopaedic Surgery; Visit Provider Orthopaedic Surgery
DX: S82.891A Other fracture of right lower leg, initial encounter for closed fracture (principal); Z47.89 Encounter for other orthopedic aftercare
CPT/HCPCS: 73610

== ENCOUNTER 2020-03-18 22:50 | Emergency (ER) | payer MEDICAID, MEDICARE, SELFPAY ==
[2019-12-02 12:28] VITALS: BMI 37.3
[2020-03-18 22:52] VITALS: BP 130/82; PULSE 112; RESP 18; TEMP 36.4; O2SAT 97; BMI 37.1
[2020-03-18] MEDS: Mixture 30 ML Bottle 5 ML TOPICAL (23:30)
--- NOTE | 2020-03-19 00:24 | ED.VIS.GEN ---
History of Present Illness Chief Complaint: Nosebleed Informant: Patient Onset: Today - several hrs Timing: Continuous Quality: oozing Location: left naris Current Severity: Moderate Maximum Severity: Moderate Worsened by: after blowing nose Relieved by: pressure, tissue packing pt did at home Associated Symptoms: no systemic sx, no lightheadedness/weakness. swallowing sm amt blood. Narrative: On Plavix, no anticoagulants. Prior similar symptoms: Yes Recent Illness/Hospitalization: No - Past Medical History (1) Debility Status: Chronic (2) History of stroke Status: Chronic Comment: 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 (3) Hypotension Status: Chronic Comment: All BP meds discontinued (4) Allergic rhinitis Status: Chronic (5) Cardiomyopathy Status: Chronic (6) Carotid artery stenosis Status: Chronic (7) Coronary artery disease Status: Chronic (8) Diabetes mellitus, type 2 Status: Chronic (9) GERD (gastroesophageal reflux disease) Status: Chronic (10) Hyperlipemia Status: Chronic (11) Hypothyroidism, secondary/tertiary Status: Chronic (12) Irritable bowel syndrome Status: Chronic (13) Neuropathy Status: Chronic Comment: secondary to DM (14) Normochromic normocytic anemia Status: Chronic Comment: etiology never identified - may be due to chronic adrenal insufficiency Past Medical History - Allergies and Home Meds Allergies/Adverse Reactions: Allergies adhesive Allergy (Verified 03/18/20 22:54) skin irritation amlodipine [From Norvasc] Allergy (Verified 03/18/20 22:54) tachycardia hydromorphone HCl [From Dilaudid] Allergy (Verified 03/18/20 22:54) Itching sulfamethoxazole [From Bactrim] Allergy (Verified 03/18/20 22:54) made my cold sore huge trimethoprim [From Bactrim] Allergy (Verified 03/18/20 22:54) made my cold sore huge Primary Care Physician: Brandon Torres DO [Primary Care Provider] - Surgical History: cholecystectomy, total knee arthroplasty - Bilateral., tonsillectomy, - - partial colon resection due to diverticulosis. Smoking Status: Former smoker - Family History Paternal Family History: Family History (Last Reviewed 09/04/19 @ 15:31 by Alayna Galloway) Grandfather Alcoholism Grandmother Alcoholism Mother Arthritis Diverticulitis COPD (chronic obstructive pulmonary disease) Afib Father Arthritis Diabetes Myocardial infarction Heart disease Hypertension Hyperlipidemia Brother Arthritis Aunt Breast cancer Sister Arthritis Thyroid disorder Skin cancer Uncle Diabetes Family History: Reports: Diabetes, Heart Disease, - Maternal Family History: Family History (Last Reviewed 09/04/19 @ 15:31 by Alayna Galloway) Grandfather Alcoholism Grandmother Alcoholism Mother Arthritis Diverticulitis COPD (chronic obstructive pulmonary disease) Afib Father Arthritis Diabetes Myocardial infarction Heart disease Hypertension Hyperlipidemia Brother Arthritis Aunt Breast cancer Sister Arthritis Thyroid disorder Skin cancer Uncle Diabetes Family History: Reports: Heart Disease, - - osteoarthritis Review of Systems General: Denies: Chills, Fever, Malaise, Sweats ENT: Reports: - - nosebleeding. see HPI.. Denies: Rhinorrhea, Sore throat Gastrointestinal: Denies: Abdominal pain, Nausea, Vomiting, Diarrhea, Melena, Hematochezia Physical Exam Vital Signs/Narrative: Vital Signs Temp Pulse Resp BP Pulse Ox 03/18/20 22:52 97.6 F L 112 H 18 130/82 H 97 Inital Vital Signs reviewed: Yes General: Well nourished, Well developed, Obese, No Acute Distress Head: Normocephalic, Atraumatic ENT: - - Oozing blood nonpulsatile left naris. right is clear. POP is clear. Left nidus appears at the septum about 1.5cm posterior to introitus. Neck: Supple, Nontender Respiratory: No distress Skin: Normal color, No rash, No Trauma Neurological: Alert, Oriented x3, Cranial nerves II-XII grossly intact, Normal Strength, Normal Sensation Psychological: Normal affect, Normal Mood Diagnostic/Tx/Re-eval - Medical Decision Making Pt had no sx of anemia and eventually we were able to control bleeding without needing to place a nasal packing. We discussed that potentially being necessary if the cauterization does not hold, and reasons to return. Advised to avoid placing foreign objects in her nose, blowing it, drinking hot beverages, and drinking through a straw for the next 1-2 days. Procedures Procedure(s): Epistaxis control/cauterization - patient evacuated her nasal cavity by blowing her nose, removing blood and some small clots. 2 mL of Rob mix was placed in the left naris with a syringe, she inhaled it back. This was followed by a Rob mix?soaked cotton pledget, which provided good epistaxes control until it was removed, the clot came with it and bleeding restarted. Another clean medication-soaked pledget was placed, which again provide a good control. It was gently removed. Clot remained behind with very very minimal bleeding. I was able to cauterize this with silver nitrate, with good results and hemostasis. Patient was observed and had no recurrent bleeding and was comfortable going home. ED Disposition - Plan for ED Patient: Disposition: Home or Assisted Living Diagnosis: Acute anterior epistaxis Instructions: ED Epistaxis Adult Referrals: Brandon Torres DO [Primary Care Provider] - Flavio Juarez MD [STAFF PHYSICIAN] - As Needed (or return to the ER for bleeding that you are unable to control)
[2020-03-19] MEDS: Silver Nitrate (BKC) 1 EACH TOPICAL (00:55)
[2020-03-19 01:17] VITALS: BP 172/99
== END 2020-03-19 01:18 | disposition home or self-care (01) ==
LOC: ED 03-19 01:09
PROVIDERS: Emergency Provider Emergency Medicine; PCP Student in an Organized Health Care Education/Training Program
DX: R04.0 Epistaxis (principal); E66.9 Obesity, unspecified; I25.10 Atherosclerotic heart disease of native coronary artery without angina pectoris; E11.40 Type 2 diabetes mellitus with diabetic neuropathy, unspecified; E03.9 Hypothyroidism, unspecified; E78.5 Hyperlipidemia, unspecified; I42.9 Cardiomyopathy, unspecified; K58.9 Irritable bowel syndrome, unspecified; K21.9 Gastro-esophageal reflux disease without esophagitis; Z86.2 Personal history of diseases of the blood and blood-forming organs and certain disorders involving the immune mechanism; Z86.73 Personal history of transient ischemic attack (TIA), and cerebral infarction without residual deficits; Z79.02 Long term (current) use of antithrombotics/antiplatelets; Z79.899 Other long term (current) drug therapy; Z87.891 Personal history of nicotine dependence
CPT/HCPCS: 30901; 99282

== ENCOUNTER → 2020-05-18 10:06 | Outpatient (CLI) | payer MEDICARE, SELFPAY | PROVIDERS: PCP Student in an Organized Health Care Education/Training Program; Referring Provider Nurse Practitioner Family; Visit Provider Nurse Practitioner Family | DX: Z11.59 Encounter for screening for other viral diseases (principal) | CPT/HCPCS: 87635; G2023; U0003 ==

== ENCOUNTER 2020-05-21 16:38 | Emergency (ER) | payer MEDICARE, SELFPAY ==
[2020-05-21 16:40] VITALS: BP 150/102; PULSE 82; RESP 19; TEMP 36.9; O2SAT 99; BMI 37.8
--- NOTE | 2020-05-21 16:58 | ED.DCSUM_ITS ---
- ER Visit Summary Date of Service: 05/21/20 Chief Complaint: Right foot injury History of Present Illness: The patient is a 59 F who presents with a right foot injury that occurred 4 days ago. Patient states she was feeling weak because she was having some nausea, vomiting, fever, and cough at that time. Patient states she fell and injured her right foot. Patient states she saw her primary care physician who ordered a COVID test. Patient has not gotten the results of that test yet. Patient states that she has been getting around at home in a wheelchair. Patient states her pain is worse with any weightbearing or movement. Patient describes her pain as burning but is sharp at times. Patient does admit to some paresthesias but states this is chronic for her from a previous stroke. Patient denies any weakness. Physical Examination: Vital signs are stable. Patient is afebrile. Patient is in no acute distress. Musculoskeletal exam reveals tenderness over the metatarsals of the right foot. There is slight edema. There is no ecchymosis. There is no deformity. Range of motion was limited in all motions of the right foot secondary to pain. There is no tenderness over the medial or lateral malleoli. There is no bony crepitance or step-off. Sensation was intact to light touch in all digits. Capillary refill was less than 2 seconds in all digits. Pedal pulses were equal bilaterally. There is no tenderness over the proximal fibula. Test Results: X-rays of the right foot were obtained. There are no acute fractures. There are old healing fractures at the bases of the second, third, and fourth metatarsals which were noted on her prior x-ray from August 10, 2019. These were unchanged. These were interpreted by the radiologist and reviewed by myself. Emergency Department Course and Treatment: Patient was given an ice pack. Patient was given a walking boot. Patient was instructed to ice and elevate the right foot. Patient was instructed to continue using her [place] as needed for pain. Patient was instructed to follow-up with her primary care physician in 5 to 7 days. Patient understood and was agreeable with the plan. All questions were answered. Disposition: Discharge home Impression: Right foot sprain This note was generated with [employer] dictation software. It may contain incorrect words, spelling, and punctuation that were not noted in review of the chart prior to signing ED Disposition - Plan for ED Patient: Disposition: Home or Assisted Living Diagnosis: Right foot sprain Instructions: ED Sprain Foot Referrals: Brandon Torres DO [Primary Care Provider] - 5-7 Days
--- NOTE | 2020-05-21 17:00 | RAD_ITS ---
STUDY: X-RAY - RIGHT FOOT CLINICAL: Female, 59 years old. FELL 3 DAYS AG. CONSTANT PAIN AND SWELLING. TECHNIQUE: 3 view(s) of the foot. COMPARISON: Prior right foot radiographs of August 10, 2019 FINDINGS: Hardware repair of a prior distal tibial fracture and syndesmotic fixation of the fibula to the tibia included in the [id number]. Plantar spur and dorsal enthesophyte of the calcaneus with an otherwise normal calcaneus. Normal tarsals. Degenerative arthrosis of the intertarsal articulations. Prior healed fractures through the bases of the second, third and fourth metatarsals. The fractures of the third and fourth metatarsals have healed completely. There continues to be a visible fracture line across the base of the second metatarsal. Mild degenerative changes of the first metatarsophalangeal joint. Normal second through the fourth metatarsophalangeal joint Normal tibial and fibular sesamoid bones. Normal interphalangeal joint of the great toe. Normal phalanges of the great toe. Mild degenerative narrowing of the interphalangeal joints of the lesser toes. The soft tissue structures are unremarkable. RAD/Foot min 3 Views IMPRESSION: Negative for new fracture deformity. Prior fractures at the bases of the second, third and fourth metatarsals were documented on a prior exam of August 10, 2019. The fractures of the third and fourth metatarsals have healed in anatomic alignment. The fracture line through the base of the second metatarsal is still visible. Possible nonunion or nonosseous union and is without change in alignment. No additional acute bone or joint findings. Prior distal tibia and fibular injury repaired with hardware partly included in the [id number]. Dorsal enthesophyte and plantar spur of the calcaneus. Degenerative changes as stated above. Electronically Signed: Akilah Peck MD at 17:43 EDT , Service support ,
[2020-05-21 18:32] VITALS: BP 148/77; PULSE 80; RESP 16; O2SAT 99
== END 2020-05-21 19:37 | disposition home or self-care (01) ==
PROVIDERS: Emergency Provider Emergency Medicine; PCP Student in an Organized Health Care Education/Training Program
DX: S93.601A Unspecified sprain of right foot, initial encounter (principal); W19.XXXA Unspecified fall, initial encounter; Y93.9 Activity, unspecified; Y92.89 Other specified places as the place of occurrence of the external cause; Y99.9 Unspecified external cause status; Z86.73 Personal history of transient ischemic attack (TIA), and cerebral infarction without residual deficits; E11.9 Type 2 diabetes mellitus without complications; I10 Essential (primary) hypertension; E78.00 Pure hypercholesterolemia, unspecified; E03.9 Hypothyroidism, unspecified
CPT/HCPCS: 73630; 99284

== ENCOUNTER → 2020-06-16 14:48 | Outpatient (CLI) | payer MEDICARE, SELFPAY ==
[2020-05-21 16:40] VITALS: BMI 37.8
--- NOTE | 2020-06-16 14:57 | CT_ITS ---
STUDY: CT MAXILLOFACIAL SINUSES REASON FOR EXAM: Female, 59 years old. SINUSITIS. Hx of ischemic colitis, diabetes, HTN RADIATION DOSAGE (If Supplied By Facility): CTDIvol = ( 33.06 ) mGy, DLP = ( 718.15 ) mGycm TECHNIQUE: The patient was scanned in a multi detector CT scanner. High resolution axial imaging was performed without the administration of intravenous contrast material. Sagittal and coronal images were reconstructed. Individualized dose optimization techniques were used for this CT. COMPARISON: None. FINDINGS: FRONTAL SINUSES: Normal aeration, without mucosal inflammatory disease. ETHMOIDAL SINUSES: Normal aeration, without mucosal inflammatory disease. MAXILLARY SINUSES: Normal aeration, without mucosal inflammatory disease. SPHENOIDAL SINUSES: Normal aeration, without mucosal inflammatory disease. There is patency of the bilateral maxillary infundibuli with normal uncinate processes, ethmoid bullae, and hiatus semilunaris. Normal bilateral middle turbinates. Normal bilateral inferior turbinates. Normal midline nasal septum. There is patency of the bilateral nasal airways. The visualized osseous structures are normal. The visualized bilateral orbital contents are normal. CT/Sinus/Facial Bone IMPRESSION: Normal CT examination of the maxillofacial sinuses. Electronically Signed: Rick Gonzalez MD at 15:29 EDT Tel , Service support ,
== END ==
PROVIDERS: PCP Student in an Organized Health Care Education/Training Program; Referring Provider Otolaryngology; Visit Provider Otolaryngology
DX: J32.9 Chronic sinusitis, unspecified (principal)
CPT/HCPCS: 70486

== ENCOUNTER 2020-09-10 20:23 | Emergency (ER) | payer MEDICARE, MEDICAID, SELFPAY ==
[2020-09-10 20:23] VITALS: BP 130/82; PULSE 109; RESP 18; TEMP 35.9; O2SAT 98; BMI 37.1
--- NOTE | 2020-09-10 21:39 | ED.VIS.GEN ---
History of Present Illness Chief Complaint: Nosebleed Informant: Patient Narrative: 59-year-old female presents with concern for nosebleed. Patient states that she has had a nosebleed every day for the past 4 days. States that she was seen by ENT this morning and had cauterization. States that she blew her nose at home and began to bleed again. Patient is on Plavix. Denies any shortness of breath, lightheadedness, dizziness, chest pain. Past Medical History - Allergies and Home Meds Allergies/Adverse Reactions: Allergies adhesive Allergy (Verified 09/10/20 21:55) skin irritation amlodipine [From Norvasc] Allergy (Verified 09/10/20 21:55) tachycardia hydromorphone HCl [From Dilaudid] Allergy (Verified 09/10/20 21:55) Itching sulfamethoxazole [From Bactrim] Allergy (Verified 09/10/20 21:55) made my cold sore huge trimethoprim [From Bactrim] Allergy (Verified 09/10/20 21:55) made my cold sore huge Primary Care Physician: Brandon Torres DO [Primary Care Provider] - Past Medical History: - - HTN, CAD Surgical History: cholecystectomy, total knee arthroplasty - Bilateral., tonsillectomy, - - partial colon resection due to diverticulosis. Lives: With Family Smoking Status: Former smoker Alcohol: None Drugs: None - Family History Paternal Family History: Family History (Last Reviewed 09/04/19 @ 15:31 by Alayna Galloway) Grandfather Alcoholism Grandmother Alcoholism Mother Arthritis Diverticulitis COPD (chronic obstructive pulmonary disease) Afib Father Arthritis Diabetes Myocardial infarction Heart disease Hypertension Hyperlipidemia Brother Arthritis Aunt Breast cancer Sister Arthritis Thyroid disorder Skin cancer Uncle Diabetes Family History: Reports: Diabetes, Heart Disease, - Maternal Family History: Family History (Last Reviewed 09/04/19 @ 15:31 by Alayna Galloway) Grandfather Alcoholism Grandmother Alcoholism Mother Arthritis Diverticulitis COPD (chronic obstructive pulmonary disease) Afib Father Arthritis Diabetes Myocardial infarction Heart disease Hypertension Hyperlipidemia Brother Arthritis Aunt Breast cancer Sister Arthritis Thyroid disorder Skin cancer Uncle Diabetes Family History: Reports: Heart Disease, - - osteoarthritis Review of Systems General: Denies: Chills, Fever, Sweats Eyes: Denies: Visual changes - bilaterally, Diplopia ENT: Reports: - - epistaxis. Denies: Rhinorrhea, Sore throat Cardiovascular: Denies: Chest pain, Palpitations Respiratory: Denies: Dyspnea, Cough, Dyspnea on exertion Gastrointestinal: Denies: Abdominal pain, Nausea, Vomiting, Diarrhea, Melena, Hematochezia Genitourinary: Denies: Dysuria, Hematuria, Frequency Musculoskeletal: Denies: Back pain, Extremity Pain Skin: Denies: Rash, Wounds Neurological: Denies: Headache, Weakness, Numbness Physical Exam Vital Signs/Narrative: Vital Signs Temp Pulse Resp BP Pulse Ox 09/10/20 20:23 96.7 F L 109 H 18 130/82 H 98 Inital Vital Signs reviewed: Yes General: Well nourished, Well developed, No Acute Distress Head: Normocephalic, Atraumatic Eyes: Perrl, EOMI ENT: Moist mucous membranes, No rhinorrhea, - - Bleeding from right nare. Seen in the posterior pharynx. Neck: Supple, Nontender Cardiovascular: Regular rate, Regular rhythm, No murmurs Respiratory: No distress, CTA bilaterally, Chest nontender Abdomen: Soft, Nontender, Nondistended, Normal bowel sounds Back: Nontender, Normal Inspection Extremities: Nontender, No edema Skin: Normal color, No rash Neurological: Alert, Oriented x3, Cranial nerves II-XII grossly intact, Normal Strength, Normal Sensation Psychological: Normal affect, Normal Mood Diagnostic/Tx/Re-eval - Medical Decision Making Appears well and nontoxic. Vital signs within normal limits. Patient had TXA aerosolized up both nostrils. A 7-1/2 anterior and posterior Rhino Rocket was placed in the right nare. Bleeding was controlled. Patient is currently on Augmentin and will remain on this antibiotic. Patient will follow up with ENT Dr. Womack. Asked to return for any new or worsening symptoms. Patient agreeable and discharged home in stable condition. Impression: 1. Epistaxis Procedures Procedure(s): Rhinorocket placed up right nare. No acute complications. ED Disposition - Plan for ED Patient: Disposition: Home or Assisted Living Instructions: Nosebleed Referrals: Brandon Torres DO [Primary Care Provider] - Flavio Juarez MD [STAFF PHYSICIAN] - 2 Days
== END 2020-09-10 23:35 | disposition home or self-care (01) ==
PROVIDERS: Emergency Provider Emergency Medicine; PCP Student in an Organized Health Care Education/Training Program
DX: R04.0 Epistaxis (principal); I10 Essential (primary) hypertension; I25.10 Atherosclerotic heart disease of native coronary artery without angina pectoris; Z79.02 Long term (current) use of antithrombotics/antiplatelets; Z79.899 Other long term (current) drug therapy; Z87.891 Personal history of nicotine dependence
CPT/HCPCS: 30901; 30905; 99282

== ENCOUNTER 2020-10-18 23:46 | Inpatient (IN) | payer MEDICARE, MEDICAID, SELFPAY ==
[2020-10-18 23:47] VITALS: BP 195/103; PULSE 114; RESP 14; TEMP 36; O2SAT 99; BMI 39.0
[2020-10-19] VITALS (12 sets, daily range): BP systolic 99–216; BP diastolic 66–118; PULSE 98–126; RESP 16–22; TEMP 35.7–36.7; O2SAT 95–100; BMI 37.4; BMI 37.0
[2020-10-19] MEDS: Oxymetazoline 0.05% 1 SPRAY SPRAY.BTL 2 SPRAY NASAL (00:26)
--- NOTE | 2020-10-19 00:50 | ED.DCSUM_ITS ---
History of Present Illness Chief Complaint: Nosebleed Informant: Patient Onset: Today Context: Sudden Onset Timing: Continuous Current Severity: Moderate Maximum Severity: Moderate Narrative: Patient is a 59-year-old female with medical history significant for hypertension and coronary vascular disease who is on Plavix, presents to the emergency department nosebleed. Patient states that started 1 hour prior to arrival. She states she blew her nose, and it began to bleed. She states there was blood from both nares and she felt like she had blood in her throat. She denies any fevers or chills. She denies any direct trauma. The patient is otherwise been in her normal state of health. She has had nosebleeds requiring cautery and packing in the past. Prior similar symptoms: Yes Recent Illness/Hospitalization: No Past Medical History - Allergies and Home Meds Allergies/Adverse Reactions: Allergies adhesive Allergy (Verified 10/18/20 23:47) skin irritation amlodipine [From Norvasc] Allergy (Verified 10/18/20 23:47) tachycardia hydromorphone HCl [From Dilaudid] Allergy (Verified 10/18/20 23:47) Itching sulfamethoxazole [From Bactrim] Allergy (Verified 10/18/20 23:47) made my cold sore huge trimethoprim [From Bactrim] Allergy (Verified 10/18/20 23:47) made my cold sore huge Primary Care Physician: Brandon Torres DO [Primary Care Provider] - Prior records reviewed: Yes Past Medical History: - - Hypertension, hyperlipidemia, vascular disease Surgical History: cholecystectomy, total knee arthroplasty - Bilateral., tonsillectomy, - - partial colon resection due to diverticulosis. Smoking Status: Never smoker - Family History Paternal Family History: Family History (Last Reviewed 09/04/19 @ 15:31 by Alayna Galloway) Grandfather Alcoholism Grandmother Alcoholism Mother Arthritis Diverticulitis COPD (chronic obstructive pulmonary disease) Afib Father Arthritis Diabetes Myocardial infarction Heart disease Hypertension Hyperlipidemia Brother Arthritis Aunt Breast cancer Sister Arthritis Thyroid disorder Skin cancer Uncle Diabetes Family History: Reports: Diabetes, Heart Disease, - Maternal Family History: Family History (Last Reviewed 09/04/19 @ 15:31 by Alayna Galloway) Grandfather Alcoholism Grandmother Alcoholism Mother Arthritis Diverticulitis COPD (chronic obstructive pulmonary disease) Afib Father Arthritis Diabetes Myocardial infarction Heart disease Hypertension Hyperlipidemia Brother Arthritis Aunt Breast cancer Sister Arthritis Thyroid disorder Skin cancer Uncle Diabetes Family History: Reports: Heart Disease, - - osteoarthritis Review of Systems General: Denies: Chills, Fever, Sweats Eyes: Denies: Visual changes - bilaterally, Diplopia ENT: Denies: Rhinorrhea, Sore throat Cardiovascular: Denies: Chest pain, Palpitations Respiratory: Denies: Dyspnea, Cough, Dyspnea on exertion Gastrointestinal: Denies: Abdominal pain, Nausea, Vomiting, Diarrhea, Melena, Hematochezia Genitourinary: Denies: Dysuria, Hematuria, Frequency Musculoskeletal: Denies: Back pain, Extremity Pain Skin: Denies: Rash, Wounds Neurological: Denies: Headache, Weakness, Numbness Physical Exam Vital Signs/Narrative: Vital Signs Temp Pulse Resp BP Pulse Ox 10/18/20 23:47 96.8 F L 114 H 14 195/103 H 99 Inital Vital Signs reviewed: Yes General: Well nourished, Well developed, No Acute Distress Head: Normocephalic, Atraumatic Eyes: Perrl, EOMI ENT: Moist mucous membranes, - - There is active bleeding in the left nares. There was some old blood within the right nares. There is mild blood in the posterior oropharynx. Neck: Supple, Nontender Cardiovascular: Regular rate, Regular rhythm, No murmurs Respiratory: No distress, CTA bilaterally, Chest nontender Abdomen: Soft, Nontender, Nondistended, Normal bowel sounds Back: Nontender, Normal Inspection Extremities: Nontender, No edema Skin: Normal color, No rash Neurological: Alert, Oriented x3, Cranial nerves II-XII grossly intact, Normal Strength, Normal Sensation Psychological: Normal affect, Normal Mood Diagnostic/Tx/Re-eval Abnormal Lab Results 10/19/20 10/19/20 01:50 01:50 WBC 9.6 RBC 4.00 L Hgb 12.5 Hct 36.7 L MCV 91.8 MCH 31.3 MCHC 34.1 RDW Std Deviation 46.3 H RDW Coeff of Lencho 13.6 Plt Count 301 MPV 9.8 Immature Gran % (Auto) 0.400 Neut % (Auto) 64.0 Lymph % (Auto) 25.4 [place] % (Auto) 5.8 Eos % (Auto) 3.5 Baso % (Auto) 0.9 Absolute Neuts (auto) 6.1 Absolute Lymphs (auto) 2.43 Nucleated RBC % 0 PT 11.8 INR 0.9 APTT 29.7 - Medical Decision Making Pressure was held on the nose with nasal clamp for about 15 minutes. I then had the patient blow her nose. Large clots were expressed. She began to bleed rather heavily from the left nares. Afrin-soaked pledgets were placed in the nose and pressure was reapplied. These were removed and there was still active bleeding mostly from the left. Decision was made to place a 7.5 cm anterior/pos terior Rhino Rocket. This was done. The patient had significant improvement of bleeding. There was only a slight trickle down the posterior oropharynx and slight amount of blood from the right nares but was markedly improved. The patient was observed. She was still having some posterior bleeding and still having bleeding from the right naris. There is markedly improved, but with the persistent bleeding, I did want to try to get this to stop. A 5.5 cm anterior Rhino was placed on the right. Hemostasis was markedly improved, but she still had a slight trickle. I did discuss this with Dr. Craig. As the patient now has bilateral PACs he did agree with plan for observation and he would see the patient in consultation. Patient was discussed with the hospitalist. 1. Epistaxis left nares 2. Bilateral nasal packing ED Disposition - Plan for ED Patient: Referrals: Brandon Torres DO [Primary Care Provider] -
[2020-10-19] MEDS: Ondansetron ODT 4 MG Tablet PO (01:07)
[2020-10-19 01:55] LABS: Absolute Lymphocyte Count 2.43 X10^3/uL (0.83-4.51); Absolute Neutrophil Count 6.1 X10^3/uL (2.0-7.7); Basophil# 0.09 X10^3/uL; Basophil% 0.9 % (0-1); Eosinophil# 0.34 X10^3/uL; Eosinophils% 3.5 % (0-5); Hematocrit 36.7 % (37-47); Hemoglobin 12.5 g/dL (12.0-15.0); Lymphocyte # 2.43 X10^3/ul (4.0); Lymphocyte % 25.4 % (19-41); Mean Corp Hgb Conc 34.1 g/dL (32-36); Mean Corpuscular Hgb 31.3 pg (27.0-32.0); Mean Corpuscular Volume 91.8 fL (81-99); Mean Platelet Vol. 9.8 fl (6.2-12.0); Monocyte# 0.56 X10^3/uL; Monocyte% 5.8 % (0-10); NRBC Flagged by Analyzer 0 % (0-5); Neutrophil # 6.12 X10^3/uL (2.7-7.7); Platelet Count 301 K/mm3 (150-450); RBC Distribution Width CV 13.6 % (11.6-14.6); RBC Distribution Width SD 46.3 fl (35.1-43.9); White Blood Count 9.6 K/mm3 (4.4-11.0)
[2020-10-19 02:03] LABS: International Normalized Ratio 0.9; Prothrombin Time (Protime)PT. 11.8 SECONDS (11.7-14.9)
[2020-10-19 02:05] LABS: Partial Thromboplast Time 29.7 Seconds (24.1-36.2)
[2020-10-19] MEDS: Morphine 4 MG/ML Syringe IV (02:06)
[2020-10-19 02:25] LABS: ALB/GLOB Ratio 1.1 RATIO (0.9-2.4); AST(SGOT) 39 U/L (15-37); Alanine Aminotransfer ALT/SGPT 31 U/L (13-56); Albumin, Serum 4.2 g/dL (3.2-5.0); Alkaline Phosphatase 55 U/L (45-117); Anion Gap 10 (5-15); BUN 27 mg/dL (7-18); BUN/Creat Ratio 19.3 RATIO (10-20); Calcium,Total 10.3 mg/dL (8.5-10.1); Chloride 106 mmol/L (98-107); EST Glomerular Filtration Rate 41 mL/min (>60); Est Glom Filt Rate - Afr Amer 49 mL/min (>60); Globulin 3.8 g/dL (2.2-4.2); Glucose 159 mg/dL (74-106); Potassium 4.7 mmol/L (3.5-5.1); Sodium Level 137 mmol/L (136-145)
--- NOTE | 2020-10-19 02:32 | PCM.HP.STD ---
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 Diabetes mellitus complication status: with neurologic complications Diabetes mellitus complication detail: with polyneuropathy Qualified Code(s): E11.42 - Type 2 diabetes mellitus with diabetic polyneuropathy (7) Irritable bowel syndrome Status: Chronic (8) Coronary artery disease Status: Chronic (9) Diabetes mellitus, type 2 Status: Chronic (10) Obesity Status: Chronic (11) Epistaxis Status: Acute History of Present Illness Date of Admission: 10/19/20 Chief Complaint: bilateral nose bleed The patient is a 59 year old female patient with a past medical history of trigeminal trophic syndrome and history of nosebleed presents the emergency room with significant nosebleeds in both naris. Onset of symptoms began approximately 10:00 this evening and required both nostrils to be packed in the emergency room. Despite packing there continued to be significant bleeding through the lacrimal duct on both sides into the eye which subsequently slowed down. cash management specialist was consulted by ER physician and admission was requested. Laboratory studies are unremarkable with a white blood cell count of 9.6, hemoglobin 12.5, hematocrit 36.7, platelets 301, sodium 137, potassium 4.7, chloride 106, bicarb 21, BUN 27, creatinine 1.4, glucose 159. The patient does have a history of stroke with some right-sided residual weakness along with diabetes, coronary artery disease. She will be made n.p.o. pending surgical evaluation in the morning and was agreeable to this plan of care. 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 Normochromic normocytic anemia (Chronic) etiology never identified - may be due to chronic adrenal insufficiency Hypothyroidism, secondary/tertiary (Chronic) Osteoporosis (Chronic) suspected, has not had a BMD......I suspect this is severe Debility (Chronic) Cardiomyopathy (Chronic) Stroke (Chronic) Right hemiparesis (Chronic) Gait difficulty (Chronic) Diabetes mellitus (Chronic) Irritable bowel syndrome (Chronic) Muscle spasm (Chronic) Allergic rhinitis (Chronic) GERD (gastroesophageal reflux disease) (Chronic) Herpes simplex (Chronic) Hypotension (Chronic) All BP meds discontinued Carotid artery stenosis (Chronic) Hyperlipemia (Chronic) Hypertension (Chronic) Coronary artery disease (Chronic) Diabetes mellitus, type 2 (Chronic) History of Clostridium difficile infection (Chronic) Hx of diverticulitis of colon (Chronic) Status post partial colectomy Obesity (Chronic) Chronic constipation with suspected IBS (Chronic) History of ischemic colitis (Chronic) Bilateral leg weakness (Chronic) Medical History: Medical History (Last Reviewed 09/04/19 @ 15:31 by Alayna Galloway) Anemia D64.9 Arthritis M19.90 Asthma J45.909 Bone fracture T14.8XXA Carpal tunnel syndrome G56.00 Essential hypertension I10 GI problem R19.8 Gallstones K80.20 Heart disease I51.9 High triglycerides E78.1 History of blood transfusion Z92.89 History of emotional problems Z86.59 Hyperlipidemia E78.5 Hypothyroidism E03.9 IBS (irritable bowel syndrome) K58.9 Kidney disease N28.9 Kidney failure N19 Neuropathy G62.9 Osteoarthritis M19.90 Osteopenia M85.80 Osteoporosis M81.0 Recurrent infections B99.9 Seasonal allergies J30.2 Stomach ulcer K25.9 Stroke I63.9 Type 2 diabetes mellitus E11.9 Vascular disease I99.9 Chronic headaches R51 Allergies adhesive Allergy (Verified 10/18/20 23:47) skin irritation amlodipine [From Norvasc] Allergy (Verified 10/18/20 23:47) tachycardia hydromorphone HCl [From Dilaudid] Allergy (Verified 10/18/20 23:47) Itching sulfamethoxazole [From Bactrim] Allergy (Verified 10/18/20 23:47) made my cold sore huge trimethoprim [From Bactrim] Allergy (Verified 10/18/20 23:47) made my cold sore huge Home Medications: Ambulatory Orders Medication Instructions Recorded Levothyroxine Sodium [Levoxyl] 88 mcg PO DAILY 11/17/17 Multivitamin [Multiple Vitamins] 1 ea PO DAILY 12/29/17 Pantoprazole Sodium [Protonix] 40 mg PO BID 03/29/19 Amitriptyline HCl 25 mg PO QHS 08/10/19 Alendronate Sodium [Fosamax] 70 mg PO Q7D@0700 #4 tab 08/25/19 Calcium Carb/Vitamin D [Os-Jose 1 tab PO DAILYCM tab 08/25/19 500MG + D] Clopidogrel Bisulfate [Plavix] 75 mg PO DAILY tab 08/25/19 Magnesium Oxide [Mag-Ox 400] 400 mg PO DAILYCM #30 tab 08/25/19 Tizanidine HCl [Zanaflex] 2 mg PO TID PRN PRN tab 08/25/19 rosuvastatin 20 mg tablet 20 mg PO QHS 08/25/19 sitagliptin 50 mg tablet 50 mg PO DAILY 09/04/19 venlafaxine 75 mg capsule,extended 75 mg PO BID cap 09/04/19 release 24 hr Carvedilol [Coreg (Beta Eleni)] 25 mg PO BID 03/18/20 Dicyclomine HCl [Bentyl] 10 mg PO QHS PRN 03/18/20 Lisinopril [Zestril] 30 mg PO DAILY 03/18/20 Hydrocodone Bitart/Apap 5-325 1 tab PO BID 09/10/20 [[place] 5MG-325MG] Surgical History: Surgical History (Last Reviewed 09/04/19 @ 15:31 by Alayna Galloway) Ankle fracture S82.899A 08/10/19 Fracture of left femur S72.92XA 03/21 History of arthroscopic knee surgery Z98.890 L x 3 5023-1841 History of back surgery Z98.890 L5, S1, S2 08/22 History of bilateral knee replacement Z96.653 R-2004, L-2014 History of carpal tunnel release Z98.890 R 1990 , 2011 History of cholecystectomy Z90.49 1988 History of intestine removal Z90.49 13 inches 09/19 History of tonsillectomy and adenoidectomy Z98.890 1984 History of ventral hernia repair Z98.890, Z87.19 02/2014 Strangulated ventral hernia K43.6 09/22 Surgical History: cholecystectomy, total knee arthroplasty - Bilateral., tonsillectomy, - - partial colon resection due to diverticulosis. 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 Smoking Status: Never smoker - *Family History Paternal Family History: Family History (Last Reviewed 09/04/19 @ 15:31 by Alayna Galloway) Grandfather Alcoholism Grandmother Alcoholism Mother Arthritis Diverticulitis COPD (chronic obstructive pulmonary disease) Afib Father Arthritis Diabetes Myocardial infarction Heart disease Hypertension Hyperlipidemia Brother Arthritis Aunt Breast cancer Sister Arthritis Thyroid disorder Skin cancer Uncle Diabetes History Items: Diabetes, Heart Disease, - Maternal Family History: Family History (Last Reviewed 09/04/19 @ 15:31 by Alayna Galloway) Grandfather Alcoholism Grandmother Alcoholism Mother Arthritis Diverticulitis COPD (chronic obstructive pulmonary disease) Afib Father Arthritis Diabetes Myocardial infarction Heart disease Hypertension Hyperlipidemia Brother Arthritis Aunt Breast cancer Sister Arthritis Thyroid disorder Skin cancer Uncle Diabetes History Items: Heart Disease, - - osteoarthritis Review of Systems Constitutional: Denies: Chills, Fever, Weight Change HEENT: Reports: Nasal bleeding. Denies: Head Aches, Sinus Congestion, Sinus Drainage Cardiovascular: Denies: Chest Pain, Palpitations Respiratory: Denies: Cough, Shortness of breath at rest, Sputum production Gastrointestinal: Denies: Abdominal Pain, Nausea, Vomiting Genitourinary: Denies: Dysuria Musculoskeletal: Denies: Joint Pain, Joint Tenderness Skin: Denies: Rash, Wounds Neurological: Denies: Numbness, Tingling, Focal weakness Psychiatric: Reports: Anxiety. Denies: Depression, Homicidal Ideations, Suicidal Ideations Hematologic/ Lymphatic: Denies: Easy Bruising, Easy Bleeding VTE Information - Inpt Only VTE Present on Admission: No VTE Mechan Device Prophylaxis: SCD's VTE Pharm Prophylaxis ordered?: No - Physical Exam Vitals/I&O's: Vital Signs Temp Pulse Resp BP Pulse Ox 98.1 F 98 22 H 190/117 H 98 10/19/20 02:21 10/19/20 02:21 10/19/20 02:21 10/19/20 02:21 10/19/20 02:21 Oxygen Delivery Method Room Air Weight: 241 lb 13.553 oz Body Mass Index (BMI) 39.0 Finger Stick Blood Glucose 154 General: Alert, Oriented x3, Cooperative HEENT: Normocephalic, - - nasal packing in both nares with minimal active bleeding at time of my evaluation (3 bags of bload soaked rags on bed) Neck: Supple Lungs: Clear to auscultation, Normal air movement Cardiovascular: Regular rate, No murmurs Abdomen: Bowel Sounds Present Extremities: No edema Skin: No rashes Musculoskeletal: No Tenderness to Palpation of Joints or Extremities Neurological: Neuro grossly intact Psych/Mental Status: Normal Affect, Appropriate Laboratory Results 10/19/20 01:50: WBC 9.6, RBC 4.00 L, Hgb 12.5, Hct 36.7 L, MCV 91.8, MCH 31.3, MCHC 34.1, RDW Std Deviation 46.3 H, RDW Coeff of Lencho 13.6, Plt Count 301, MPV 9.8, Immature Gran % (Auto) 0.400, Neut % (Auto) 64.0, Lymph % (Auto) 25.4, [place] % (Auto) 5.8, Eos % (Auto) 3.5, Baso % (Auto) 0.9, Absolute Neuts (auto) 6.1, Absolute Lymphs (auto) 2.43, Nucleated RBC % 0 10/19/20 01:50: PT 11.8, INR 0.9, APTT 29.7 10/19/20 01:50: Sodium 137, Potassium 4.7, Chloride 106, Carbon Dioxide 21.0, Anion Gap 10, BUN 27 H, Creatinine 1.40 H, Estim Creat Clear Calc 40.50, Est GFR (MDRD) Af Amer 49 L, Est GFR (MDRD) Non-Af 41 L, BUN/Creatinine Ratio 19.3, Glucose 159 H, Calcium 10.3 H, Total Bilirubin 0.40, AST 39 H, ALT 31, Alkaline Phosphatase 55, Total Protein 8.0, Albumin 4.2, Globulin 3.8, Albumin/Globulin Ratio 1.1 Assessment/Plan All Active Problems (Last Reviewed 09/04/19 @ 15:31 by Alayna Galloway) Trigeminal trophic syndrome (Acute) Epistaxis (Acute) Toe fracture, right (Acute) Ankle fracture (Acute) ACTH deficiency (Resolved) Secondary adrenal insufficiency (Resolved) Heme positive stool (Acute) Hypomagnesemia (Acute) Near syncope (Acute) Foot fracture, right (Acute) Closed right ankle fracture (Acute) ARF (acute renal failure) (Resolved) Bacteremia due to Gram-negative bacteria (Resolved) Hyperkalemia (Resolved) Left lower quadrant abdominal pain (Resolved) Chronic Problems (Last Reviewed 09/04/19 @ 15:31 by Alayna Galloway) Falls (Chronic) 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 History of stroke (Chronic) 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 Normochromic normocytic anemia (Chronic) etiology never identified - may be due to chronic adrenal insufficiency Hypothyroidism, secondary/tertiary (Chronic) Osteoporosis (Chronic) suspected, has not had a BMD......I suspect this is severe Debility (Chronic) Cardiomyopathy (Chronic) Stroke (Chronic) Right hemiparesis (Chronic) Gait difficulty (Chronic) Diabetes mellitus (Chronic) Irritable bowel syndrome (Chronic) Muscle spasm (Chronic) Allergic rhinitis (Chronic) GERD (gastroesophageal reflux disease) (Chronic) Herpes simplex (Chronic) Hypotension (Chronic) All BP meds discontinued Carotid artery stenosis (Chronic) Hyperlipemia (Chronic) Hypertension (Chronic) Coronary artery disease (Chronic) Diabetes mellitus, type 2 (Chronic) History of Clostridium difficile infection (Chronic) Hx of diverticulitis of colon (Chronic) Status post partial colectomy Obesity (Chronic) Chronic constipation with suspected IBS (Chronic) History of ischemic colitis (Chronic) Bilateral leg weakness (Chronic) Plan 1. Acute bilateral epistaxis?admit to progressive care unit for close monitoring, make patient n.p.o., consult ENT physician Dr. Rivas. CBC BMP in the a.m. we will place patient on normal saline at 100 cc/h 2. Hypothyroidism?continue current medications 3. Diabetes?monitor blood sugars and continue home medication 4. Hyperlipidemia?continue statin 5. DVT prophylaxis?due to bleeding will not use low molecular weight heparin instead will use SCDs at this time. Inpatient E&M: 70249 Init Hosp L3
[2020-10-19] MEDS: Ondansetron 4 MG/2 ML Vial IV (04:12)
[2020-10-19] MEDS: 0.9% Normal Saline 1,000 ML 100 ML IV (04:12)
[2020-10-19] MEDS: Morphine 2 MG/ML Syringe IV ×4 (05:19→21:15)
[2020-10-19 07:09] LABS: Absolute Lymphocyte Count 2.65 X10^3/uL (0.83-4.51); Absolute Neutrophil Count 6.9 X10^3/uL (2.0-7.7); Basophil# 0.09 X10^3/uL; Basophil% 0.9 % (0-1); Eosinophil# 0.19 X10^3/uL; Eosinophils% 1.8 % (0-5); Lymphocyte # 2.65 X10^3/ul (4.0); Lymphocyte % 25.4 % (19-41); Mean Corp Hgb Conc 32.4 g/dL (32-36); Mean Corpuscular Hgb 30.1 pg (27.0-32.0); Mean Corpuscular Volume 92.9 fL (81-99); Mean Platelet Vol. 9.9 fl (6.2-12.0); Monocyte# 0.57 X10^3/uL; Monocyte% 5.5 % (0-10); NRBC Flagged by Analyzer 0 % (0-5); Neutrophil # 6.92 X10^3/uL (2.7-7.7); Neutrophil % 66.1 % (47-70); Platelet Count 319 K/mm3 (150-450); RBC Distribution Width CV 13.7 % (11.6-14.6); RBC Distribution Width SD 46.5 fl (35.1-43.9); Red Blood Count 3.66 M/mm3 (4.2-5.4); White Blood Count 10.5 K/mm3 (4.4-11.0)
[2020-10-19 07:35] LABS: Anion Gap 10 (5-15); BUN 29 mg/dL (7-18); BUN/Creat Ratio 23.2 RATIO (10-20); Chloride 106 mmol/L (98-107); Creatinine, Serum 1.25 mg/dL (0.55-1.02); EST Glomerular Filtration Rate 47 mL/min (>60); Est Glom Filt Rate - Afr Amer 56 mL/min (>60); Estimated Creatinine Clearance 45.36 ml/min; Glucose 131 mg/dL (74-106); Potassium 3.6 mmol/L (3.5-5.1); Sodium Level 137 mmol/L (136-145)
[2020-10-19 10:05] LABS: Bedside Glucose 126 mg/dL (70-110)
--- NOTE | 2020-10-19 11:12 | PN_ITS ---
Patient Problems: Active and Suspected Problems (Last Reviewed 09/04/19 @ 15:31 by Alayna Galloway) Trigeminal trophic syndrome (Acute) Epistaxis (Acute) Subjective: Patient seen and examined. She was admitted with a complaint of bilateral epistasis. She had nasal packing done in the ED but epistasis still continued. She complains of profound epistaxis today as well. She has both nostrils packed. Review of systems otherwise negative. ENT consulted. Vitals/I&O's: Vital Signs Temp Pulse Resp BP Pulse Ox 96.3 F L 126 H 20 H 99/66 100 10/19/20 09:43 10/19/20 09:43 10/19/20 09:43 10/19/20 09:43 10/19/20 09:43 Oxygen Delivery Method Room Air Weight: 231 lb 14.821 oz Body Mass Index (BMI) 37.4 Finger Stick Blood Glucose 154 General: Alert, Oriented x3, Cooperative, - - looks uncomfortable HEENT: Atraumatic, PERRLA, EOMI, Normocephalic, - - both nostrils have nasal packing in place; still having epistaxis Oral: Dry Mucosa Neck: Supple, No JVD, Negative Carotid Bruits Lungs: Clear to auscultation, Normal air movement, No rhonchi, No wheeze, No rales Cardiovascular: Regular rate, Regular Rhythm, Normal S1, Normal S2, No murmurs Abdomen: Bowel Sounds Present, Soft, Non Tender, Non-Distended, No Hepato- splenomegaly Extremities: No clubbing, No cyanosis, No edema, Capillary Refill Less than 3 Seconds Skin: No rashes, No breakdown Musculoskeletal: No Tenderness to Palpation of Joints or Extremities Lymphatic: No Cervical, Supraclavicular, or Inguinal Adenopathy Neurological: Cranial nerves II-XII grossly intact, Neuro grossly intact, Motor Exam 5/5 strength throughout Psych/Mental Status: Normal Affect, Appropriate, Alert and oriented to time, place, person, mood and affect Laboratory Results 10/19/20 01:50: WBC 9.6, RBC 4.00 L, Hgb 12.5, Hct 36.7 L, MCV 91.8, MCH 31.3, MCHC 34.1, RDW Std Deviation 46.3 H, RDW Coeff of Lencho 13.6, Plt Count 301, MPV 9.8, Immature Gran % (Auto) 0.400, Neut % (Auto) 64.0, Lymph % (Auto) 25.4, [place] % (Auto) 5.8, Eos % (Auto) 3.5, Baso % (Auto) 0.9, Absolute Neuts (auto) 6.1, Absolute Lymphs (auto) 2.43, Nucleated RBC % 0 10/19/20 01:50: PT 11.8, INR 0.9, APTT 29.7 10/19/20 01:50: Sodium 137, Potassium 4.7, Chloride 106, Carbon Dioxide 21.0, Anion Gap 10, BUN 27 H, Creatinine 1.40 H, Estim Creat Clear Calc 40.50, Est GFR (MDRD) Af Amer 49 L, Est GFR (MDRD) Non-Af 41 L, BUN/Creatinine Ratio 19.3, Glucose 159 H, Calcium 10.3 H, Total Bilirubin 0.40, AST 39 H, ALT 31, Alkaline Phosphatase 55, Total Protein 8.0, Albumin 4.2, Globulin 3.8, Albumin/Globulin Ratio 1.1 10/19/20 05:30: Blood Type A POSITIVE, Antibody Screen NEGATIVE 10/19/20 05:55: WBC 10.5, RBC 3.66 L, Hgb 11.0 L, Hct 34.0 L, MCV 92.9, MCH 30.1, MCHC 32.4, RDW Std Deviation 46.5 H, RDW Coeff of [place] 13.7, Plt Count 319, MPV 9.9, Immature Gran % (Auto) 0.300, Neut % (Auto) 66.1, Lymph % (Auto) 25.4, [place] % (Auto) 5.5, Eos % (Auto) 1.8, Baso % (Auto) 0.9, Absolute Neuts (auto) 6.9, Absolute Lymphs (auto) 2.65, Nucleated RBC % 0 10/19/20 05:55: Sodium 137, Potassium 3.6, Chloride 106, Carbon Dioxide 21.0, Anion Gap 10, BUN 29 H, Creatinine 1.25 H, Estim Creat Clear Calc 45.36, Est GFR (MDRD) Af Amer 56 L, Est GFR (MDRD) Non-Af 47 L, BUN/Creatinine Ratio 23.2 H, Glucose 131 H, Calcium 10.0 10/19/20 10:01: POC Glucose 126 H Current Medications Hydrocodone Bitart/Acetaminophen (Hydrocodone Bitartrate/Apap 5/325 Tablet) 1 tablet PO BID [facility] Amitriptyline HCl (Amitriptyline 25 Mg Tablet) 25 mg PO QHS [facility] Atorvastatin Calcium (Atorvastatin Calcium 40 Mg Tablet) 40 mg PO QHS [facility] Carvedilol (Carvedilol 25 Mg Tablet) 25 mg PO BID [facility] Dicyclomine HCl (Dicyclomine 10 Mg Capsule) 10 mg PO QHS PRN PRN Reason: abd cramping Sodium Chloride () 1,000 mls @ 100 mls/hr IV .Q10H [facility] Last Admin: 10/19/20 04:12 Dose: 100 mls/hr Documented by: Levothyroxine Sodium (Levothyroxine 88 Mcg Tablet) 88 mcg PO DAILY@0600 [facility] Last Admin: 10/19/20 09:42 Dose: Not Given Documented by: Linagliptin (Linagliptin 5 Mg Tablet) 5 mg PO DAILY [facility] Lisinopril (Lisinopril 20 Mg Tablet) 30 mg PO DAILY [facility] Morphine Sulfate (Morphine 2 Mg/Ml Syringe) 2 mg IV Q3H PRN PRN PRN Reason: Pain Score 6-10 Last Admin: 10/19/20 05:19 Dose: 2 mg Documented by: Ondansetron HCl (Ondansetron 4 Mg/2 Ml Vial) 4 mg IV Q8H PRN PRN PRN Reason: NAUSEA/VOMITING Last Admin: 10/19/20 04:12 Dose: 4 mg Documented by: Oxymetazoline HCl (Oxymetazoline 0.05% 1 [place].Btl) 1 spray NASAL BID [facility] Pantoprazole Sodium (Pantoprazole Sodium 40 Mg Tablet) 40 mg PO BID [facility] Sodium Chloride (0.9% Saline Lock 10 Ml Syringe) 10 - 40 ml IV UD PRN PRN Reason: SALINE FLUSH Tizanidine HCl (Tizanidine Hcl 2 Mg Tablet) 2 mg PO TID PRN PRN PRN Reason: MUSCLE SPASM Venlafaxine HCl (Venlafaxine Xr 75 Mg Capsule) 75 mg PO BID [facility] STROKE Vital Signs/Narrative: Vital Signs Temp Pulse Resp BP Pulse Ox 10/19/20 09:43 96.3 F L 120 H 20 H 99/66 100 10/19/20 07:52 98 Medical Necessity - Tobacco Use Smoking Status: Former smoker Assessment/Plan All Active Problems (Last Reviewed 09/04/19 @ 15:31 by Alayna Galloway) Trigeminal trophic syndrome (Acute) Epistaxis (Acute) Toe fracture, right (Acute) Ankle fracture (Acute) ACTH deficiency (Resolved) Secondary adrenal insufficiency (Resolved) Heme positive stool (Acute) Hypomagnesemia (Acute) Near syncope (Acute) Foot fracture, right (Acute) Closed right ankle fracture (Acute) ARF (acute renal failure) (Resolved) Bacteremia due to Gram-negative bacteria (Resolved) Hyperkalemia (Resolved) Left lower quadrant abdominal pain (Resolved) # Acute bilateral epistaxis * Still having epistasis. * Nasal packing in both nostrils. ENT consulted. * Patient currently n.p.o. * Continue IV fluids we will increase the rate to 150 cc/h. * Transfuse if hemoglobin less than 7. * start on PO doxycycline as Staph prophylaxis for nasal packing * # hypothyroidism: On Synthroid. #Sinus Tachycardia: * patient's heart rate is in the 110s and 120s. * This could be due to acute blood loss. Hydrate aggressively with iVF * Type and cross, to transfuse if hb <7 * on carvedilol #Diabetes : On linagliptin. Insulin sliding scale. Accu-Cheks AC at bedtime. #Hypertension: On lisinopril and carvedilol #History of stroke: Plavix held on account of epistasis [place] prophylaxis[place] [facility] [place]: 75102 Subs Hosp L3
[2020-10-19] MEDS: 0.9% Saline Lock 10 ML Syringe IV ×2 (11:14→16:57)
--- NOTE | 2020-10-19 11:54 | PCM.PN.BLA ---
Progress Note Asked to see the patient at the request of Dr. Draper for epistaxis. 59 yo white female has been having intermittent bleeding. Last night the bleeding was severe and anterior from both sides and she presented to the ER. There she had bilateral packs placed. She is on plavix for strokes in 2018. She states she is not bleeding now but is having significant discomfort in the nose. 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 Normochromic normocytic anemia (Chronic) etiology never identified - may be due to chronic adrenal insufficiency Hypothyroidism, secondary/tertiary (Chronic) Osteoporosis (Chronic) suspected, has not had a BMD......I suspect this is severe Debility (Chronic) Cardiomyopathy (Chronic) Stroke (Chronic) Right hemiparesis (Chronic) Gait difficulty (Chronic) Diabetes mellitus (Chronic) Irritable bowel syndrome (Chronic) Muscle spasm (Chronic) Allergic rhinitis (Chronic) GERD (gastroesophageal reflux disease) (Chronic) Herpes simplex (Chronic) Hypotension (Chronic) All BP meds discontinued Carotid artery stenosis (Chronic) Hyperlipemia (Chronic) Hypertension (Chronic) Coronary artery disease (Chronic) Diabetes mellitus, type 2 (Chronic) History of Clostridium difficile infection (Chronic) Hx of diverticulitis of colon (Chronic) Status post partial colectomy Obesity (Chronic) Chronic constipation with suspected IBS (Chronic) History of ischemic colitis (Chronic) Bilateral leg weakness (Chronic) Medical History: Medical History (Last Reviewed 09/04/19 @ 15:31 by Alayna Galloway) Anemia D64.9 Arthritis M19.90 Asthma J45.909 Bone fracture T14.8XXA Carpal tunnel syndrome G56.00 Essential hypertension I10 GI problem R19.8 Gallstones K80.20 Heart disease I51.9 High triglycerides E78.1 History of blood transfusion Z92.89 History of emotional problems Z86.59 Hyperlipidemia E78.5 Hypothyroidism E03.9 IBS (irritable bowel syndrome) K58.9 Kidney disease N28.9 Kidney failure N19 Neuropathy G62.9 Osteoarthritis M19.90 Osteopenia M85.80 Osteoporosis M81.0 Recurrent infections B99.9 Seasonal allergies J30.2 Stomach ulcer K25.9 Stroke I63.9 Type 2 diabetes mellitus E11.9 Vascular disease I99.9 Chronic headaches R51 Allergies adhesive Allergy (Verified 10/18/20 23:47) skin irritation amlodipine [From Norvasc] Allergy (Verified 10/18/20 23:47) tachycardia hydromorphone HCl [From Dilaudid] Allergy (Verified 10/18/20 23:47) Itching sulfamethoxazole [From Bactrim] Allergy (Verified 10/18/20 23:47) made my cold sore huge trimethoprim [From Bactrim] Allergy (Verified 10/18/20 23:47) made my cold sore huge Home Medications: Ambulatory Orders Medication Instructions Recorded Levothyroxine Sodium [Levoxyl] 88 mcg PO DAILY 11/17/17 Multivitamin [Multiple Vitamins] 1 ea PO DAILY 12/29/17 Pantoprazole Sodium [Protonix] 40 mg PO BID 03/29/19 Amitriptyline HCl 25 mg PO QHS 08/10/19 Alendronate Sodium [Fosamax] 70 mg PO Q7D@0700 #4 tab 08/25/19 Calcium Carb/Vitamin D [Os-Jose 1 tab PO DAILYCM tab 08/25/19 500MG + D] Clopidogrel Bisulfate [Plavix] 75 mg PO DAILY tab 08/25/19 Magnesium Oxide [Mag-Ox 400] 400 mg PO DAILYCM #30 tab 08/25/19 Tizanidine HCl [Zanaflex] 2 mg PO TID PRN PRN tab 08/25/19 rosuvastatin 20 mg tablet 20 mg PO QHS 08/25/19 sitagliptin 50 mg tablet 50 mg PO DAILY 09/04/19 venlafaxine 75 mg capsule,extended 75 mg PO BID cap 09/04/19 release 24 hr Carvedilol [Coreg (Beta Eleni)] 25 mg PO BID 03/18/20 Dicyclomine HCl [Bentyl] 10 mg PO QHS PRN 03/18/20 Lisinopril [Zestril] 30 mg PO DAILY 03/18/20 Hydrocodone Bitart/Apap 5-325 1 tab PO BID 09/10/20 [[place] 5MG-325MG] Surgical History: Surgical History (Last Reviewed 09/04/19 @ 15:31 by Alayna Galloway) Ankle fracture S82.899A 08/10/19 Fracture of left femur S72.92XA 03/21 History of arthroscopic knee surgery Z98.890 L x 3 6044-2080 History of back surgery Z98.890 L5, S1, S2 08/22 History of bilateral knee replacement Z96.653 R-2004, L-2014 History of carpal tunnel release Z98.890 R 1990 , 2011 History of cholecystectomy Z90.49 1988 History of intestine removal Z90.49 13 inches 09/19 History of tonsillectomy and adenoidectomy Z98.890 1984 History of ventral hernia repair Z98.890, Z87.19 02/2014 Strangulated ventral hernia K43.6 09/22 Surgical History: cholecystectomy, total knee arthroplasty - Bilateral., tonsillectomy, - - partial colon resection due to diverticulosis. Psychiatric History: Depression UNION CONTRACT REPRESENTATIVE History: No pertinent UNION CONTRACT REPRESENTATIVE history Smoking Status: Never smoker - *Family History Paternal Family History: Family History (Last Reviewed 09/04/19 @ 15:31 by Alayna Galloway) Grandfather Alcoholism Grandmother Alcoholism Mother Arthritis Diverticulitis COPD (chronic obstructive pulmonary disease) Afib Father Arthritis Diabetes Myocardial infarction Heart disease Hypertension Hyperlipidemia Brother Arthritis Aunt Breast cancer Sister Arthritis Thyroid disorder Skin cancer Uncle Diabetes History Items: Diabetes, Heart Disease, - Maternal Family History: Family History (Last Reviewed 09/04/19 @ 15:31 by Alayna Galloway) Grandfather Alcoholism Grandmother Alcoholism Mother Arthritis Diverticulitis COPD (chronic obstructive pulmonary disease) Afib Father Arthritis Diabetes Myocardial infarction Heart disease Hypertension Hyperlipidemia Brother Arthritis Aunt Breast cancer Sister Arthritis Thyroid disorder Skin cancer Uncle Diabetes History Items: Heart Disease, - - osteoarthritis Review of Systems Constitutional: Denies: Chills, Fever, Weight Change HEENT: Reports: Nasal bleeding. Denies: Head Aches, Sinus Congestion, Sinus Drainage Cardiovascular: Denies: Chest Pain, Palpitations Respiratory: Denies: Cough, Shortness of breath at rest, Sputum production Gastrointestinal: Denies: Abdominal Pain, Nausea, Vomiting Genitourinary: Denies: Dysuria Musculoskeletal: Denies: Joint Pain, Joint Tenderness Skin: Denies: Rash, Wounds Neurological: Denies: Numbness, Tingling, Focal weakness Psychiatric: Reports: Anxiety. Denies: Depression, Homicidal Ideations, Suicidal Ideations Hematologic/ Lymphatic: Denies: Easy Bruising, Easy Bleeding VTE Information - Inpt Only VTE Present on Admission: No VTE Mechan Device Prophylaxis: SCD's VTE Pharm Prophylaxis ordered?: No PE: awake alert nad m/op. Old blood staining. No clots or active bleeding. Nose- bilateral packs. The left is a 7.5 rhino rocket. There was no active bleeding. I removed the right pack. She has a large septal perforation with the left sided pack filling the septal defect. Again, no active bleeding was seen. A: 1.Epistaxis. Now with a left pack in place and not bleeding. 2. Septal perforation. 3. Coagulopathy secondary to plavix P: I would leave the left pack in place until Sunday. I would recommend she discontinue plavix at least for the short term. I would continue with in patient observation until tomorrow. If she does not have any further bleeding by then, she can be discharged home with follow up on Sunday for pack removal. STROKE Vital Signs/Narrative: Vital Signs Temp Pulse Resp BP Pulse Ox 10/19/20 09:43 96.3 F L 120 H 20 H 99/66 100
[2020-10-19 12:35] LABS: Absolute Lymphocyte Count 1.77 X10^3/uL (0.83-4.51); Absolute Neutrophil Count 5.9 X10^3/uL (2.0-7.7); Basophil# 0.07 X10^3/uL; Basophil% 0.8 % (0-1); Eosinophil# 0.04 X10^3/uL; Eosinophils% 0.5 % (0-5); Hematocrit 29.2 % (37-47); Hemoglobin 9.5 g/dL (12.0-15.0); Lymphocyte # 1.77 X10^3/ul (4.0); Lymphocyte % 20.7 % (19-41); Mean Corp Hgb Conc 32.5 g/dL (32-36); Mean Corpuscular Hgb 30.4 pg (27.0-32.0); Mean Corpuscular Volume 93.3 fL (81-99); Mean Platelet Vol. 9.7 fl (6.2-12.0); Monocyte# 0.66 X10^3/uL; Monocyte% 7.7 % (0-10); NRBC Flagged by Analyzer 0 % (0-5); Neutrophil # 5.94 X10^3/uL (2.7-7.7); Neutrophil % 69.6 % (47-70); Platelet Count 259 K/mm3 (150-450); RBC Distribution Width CV 13.9 % (11.6-14.6); RBC Distribution Width SD 46.6 fl (35.1-43.9); Red Blood Count 3.13 M/mm3 (4.2-5.4); White Blood Count 8.5 K/mm3 (4.4-11.0)
--- NOTE | 2020-10-19 12:35 | CASEMGMT ---
DRE DELGADILLO assessment: Face to Face with patient for initial transition planning/care coordination assessment. RN ELIE introduced self and role at [facility], pt voices understanding and consents to assessment at this time. Pt is lying in bed in no distress at this time. Pt is A/Ox4 at this time and answers all questions appropriately at this time. Care providers, pharmacy, and demographics verified/updated at this time. Presentation: Pt with nosebleed for 1 hour, pt on plavix Admitting dx: Epistaxis PCP: Brian Specialists: SANDY Juarez Preferred Pharmacy: [facility] Insurance: [facility] Prescription Benefit: Yes Living Will/HPOA: Pt states has LW/HPOA and is aware that they are on file at [facility] at this time. Pt states that her sister, Madhuri Florence, is listed as HPOA but states she would like to change her HPOA and list her sister, Dee Florence. Cornelius SW aware at this time, voices understanding. LNOK: Dee Florence, sister; Madhuri Florence, sister Living Arrangements: Pt states lives alone in 1 story apt with no steps and states no concerns at home at this time. Pt states is independent with ADL's. Transportation: Pt states drives self and states no transportation concerns at this time. DME/HHC: Pt states has the following DME: walker, w/c, medical alert, raised toilet seat, grab bars, tub bench, and lift chair and states no need for any further DME at this time. Pt states no hx of HHC and has been to [facility] in the past. Pt states has aides thru [facility] twice weekly for 3 hours at a time. Pt states also has a CM thru [employer], Tamiko. Cornelius updated, voices understanding. Pt states no concerns with going home at time of discharge. Pt states is disabled. Pt states does not smoke cigarettes or drink ETOH. Pt states no further concerns/needs at this time. CM to follow for any further discharge planning/needs. Advised pt to ask for CM if any further questions/concerns/needs arise, voices understanding. Pt Goal: Home Plan: Home [place] DRE DELGADILLO
[2020-10-19] MEDS: Lidocaine 4% 50 ML Bottle TOPICAL (13:05)
[2020-10-19] MEDS: 0.9% Normal Saline 1,000 ML 999 ML IV (13:07)
[2020-10-19] MEDS: 0.9% Normal Saline 1,000 ML 150 ML IV ×2 (13:08→21:17)
[2020-10-19] MEDS: Doxycycline 100 MG CAPSULE PO ×2 (14:40→21:15)
[2020-10-19] MEDS: Lisinopril 20 MG Tablet 30 MG PO (17:16)
[2020-10-19] MEDS: Carvedilol 25 MG Tablet PO (17:16)
--- NOTE | 2020-10-19 19:00 | PCS.PANDOC ---
PANDEMIC DOCUMENTATION INITIATED: Date: 10/19/20 Time: 1899
[2020-10-19] MEDS: Pantoprazole Sodium 40 MG Tablet PO (21:14)
[2020-10-19] MEDS: Amitriptyline 25 MG Tablet PO (21:14)
[2020-10-19] MEDS: Venlafaxine XR 75 MG Capsule PO (21:15)
[2020-10-19] MEDS: Atorvastatin Calcium 40 MG Tablet PO (21:15)
[2020-10-19] MEDS: Glycerin/Hypromellose/PEG400 15 ml Bottle 1 DRP EACH EYE (21:15)
[2020-10-19] MEDS: DiphenhydrAMINE 25 MG Capsule PO (23:50)
[2020-10-20] VITALS (11 sets, daily range): BP systolic 146–178; BP diastolic 73–87; PULSE 95–128; RESP 18–20; TEMP 36.2–36.7; O2SAT 99–100
[2020-10-20] MEDS: Glycerin/Hypromellose/PEG400 15 ml Bottle 1 DRP EACH EYE ×4 (03:40→17:03)
[2020-10-20] MEDS: Morphine 2 MG/ML Syringe IV ×2 (03:41→18:32)
[2020-10-20 05:39] LABS: Absolute Neutrophil Count 6.2 X10^3/uL (2.0-7.7); Basophil# 0.05 X10^3/uL; Basophil% 0.6 % (0-1); Eosinophil# 0.05 X10^3/uL; Eosinophils% 0.6 % (0-5); Hemoglobin 8.3 g/dL (12.0-15.0); Lymphocyte % 19.6 % (19-41); Mean Corp Hgb Conc 33.2 g/dL (32-36); Mean Corpuscular Hgb 30.6 pg (27.0-32.0); Mean Corpuscular Volume 92.3 fL (81-99); Mean Platelet Vol. 9.7 fl (6.2-12.0); Monocyte# 0.64 X10^3/uL; Monocyte% 7.4 % (0-10); NRBC Flagged by Analyzer 0 % (0-5); Neutrophil # 6.16 X10^3/uL (2.7-7.7); Neutrophil % 70.9 % (47-70); Platelet Count 185 K/mm3 (150-450); RBC Distribution Width CV 13.8 % (11.6-14.6); RBC Distribution Width SD 46.3 fl (35.1-43.9); Red Blood Count 2.71 M/mm3 (4.2-5.4); White Blood Count 8.7 K/mm3 (4.4-11.0)
[2020-10-20 05:59] LABS: Anion Gap 8 (5-15); BUN 16 mg/dL (7-18); BUN/Creat Ratio 18.8 RATIO (10-20); Calcium,Total 8.3 mg/dL (8.5-10.1); Chloride 108 mmol/L (98-107); Creatinine, Serum 0.85 mg/dL (0.55-1.02); EST Glomerular Filtration Rate 72 mL/min (>60); Est Glom Filt Rate - Afr Amer 87 mL/min (>60); Estimated Creatinine Clearance 66.71 ml/min; Glucose 135 mg/dL (74-106); Potassium 3.3 mmol/L (3.5-5.1); Sodium Level 138 mmol/L (136-145)
[2020-10-20] MEDS: Levothyroxine 88 MCG Tablet PO (06:27)
[2020-10-20] MEDS: Lisinopril 20 MG Tablet 30 MG PO (09:04)
[2020-10-20] MEDS: Venlafaxine XR 75 MG Capsule PO ×2 (09:05→21:43)
[2020-10-20] MEDS: Carvedilol 25 MG Tablet PO ×2 (09:05→21:41)
[2020-10-20] MEDS: Doxycycline 100 MG CAPSULE PO ×2 (09:05→21:42)
[2020-10-20] MEDS: HYDROcodone Bitartrate/Apap 5/325 Tablet PO ×2 (09:05→21:40)
[2020-10-20] MEDS: LINAGLIPTIN 5 MG TABLET PO (09:05)
[2020-10-20] MEDS: Pantoprazole Sodium 40 MG Tablet PO ×2 (09:05→21:42)
--- NOTE | 2020-10-20 09:10 | CASEMGMT ---
SW completed a Healthcare Power of Rn Chemical Dependency with patient per her request. Copies were made and given to patient along with original. A copy was also placed in her chart to replace the documents she did previously. Zulema VIZCAINO
--- NOTE | 2020-10-20 12:21 | EKG12_ITS ---
Test Reason : TACHYCARDIA Blood Pressure : / mmHG Vent. Rate : 101 BPM Atrial Rate : 101 BPM P-R Int : 154 ms QRS Dur : 096 ms QT Int : 370 ms P-R-T Axes : 047 059 072 degrees QTc Int : 479 ms Sinus tachycardia Nonspecific T wave abnormality Abnormal ECG Confirmed by CALEB CASTRO, KENAN ([id number]), copy editor CASS VERAS ([id number]) on 10/28/2020 9:11:54 AM Referred By: SHANTELL Confirmed By:KENAN ELLIS MD
--- NOTE | 2020-10-20 14:56 | PN_ITS ---
Patient Problems: Active and Suspected Problems (Last Reviewed 09/04/19 @ 15:31 by Alayna Galloway) Trigeminal trophic syndrome (Acute) Epistaxis (Acute) Subjective: Patient seen and examined. She has no complaints this morning epistasis did not recur. She still has nasal packing in the left nostril. Patient has remained tachycardic. She did get her carvedilol last night and this morning but she still remains quite tachycardic. She denies any lightheadedness or dizziness. Review of systems otherwise negative. Hemoglobin today is 8.3. Vitals/I&O's: Vital Signs Temp Pulse Resp BP Pulse Ox 97.2 F L 101 H 18 146/73 H 100 10/20/20 12:00 10/20/20 12:00 10/20/20 12:00 10/20/20 12:00 10/20/20 12:00 Oxygen Delivery Method Room Air Weight: 231 lb 14.821 oz Body Mass Index (BMI) 37.4 Finger Stick Blood Glucose 154 Intake and Output for Last 24 Hours 10/18/20 10/19/20 10/20/20 23:59 23:59 23:59 Intake Total 3133.33 / 3133.33 1480 / 1480 Output Total 1400 / 1400 450 / 450 Balance 1733.33 / 1733.33 1030 / 1030 General: Alert, Oriented x3, Cooperative, HEENT: Atraumatic, PERRLA, EOMI, Normocephalic, nasal packing in left nares. Oral: Dry Mucosa Neck: Supple, No JVD, Negative Carotid Bruits Lungs: Clear to auscultation, Normal air movement, No rhonchi, No wheeze, No rales Cardiovascular: Regular rate, Regular Rhythm, Normal S1, Normal S2, No murmurs Abdomen: Bowel Sounds Present, Soft, Non Tender, Non-Distended, No Hepato- splenomegaly Extremities: No clubbing, No cyanosis, No edema, Capillary Refill Less than 3 Seconds Skin: No rashes, No breakdown Musculoskeletal: No Tenderness to Palpation of Joints or Extremities Lymphatic: No Cervical, Supraclavicular, or Inguinal Adenopathy Neurological: Cranial nerves II-XII grossly intact, Neuro grossly intact, Motor Exam 5/5 strength throughout Psych/Mental Status: Normal Affect, Appropriate, Alert and oriented to time, place, person, mood and affect Laboratory Results 10/20/20 05:34: WBC 8.7, RBC 2.71 L, Hgb 8.3 L, Hct 25.0 L, MCV 92.3, MCH 30.6, MCHC 33.2, RDW Std Deviation 46.3 H, RDW Coeff of Lencho 13.8, Plt Count 185, MPV 9.7, Immature Gran % (Auto) 0.900, Neut % (Auto) 70.9 H, Lymph % (Auto) 19.6, Smyth % (Auto) 7.4, Eos % (Auto) 0.6, Baso % (Auto) 0.6, Absolute Neuts (auto) 6.2, Absolute Lymphs (auto) 1.70, Nucleated RBC % 0 10/20/20 05:34: Sodium 138, Potassium 3.3 L, Chloride 108 H, Carbon Dioxide 22.0, Anion Gap 8, BUN 16, Creatinine 0.85, Estim Creat Clear Calc 66.71, Est GFR (MDRD) Af Amer 87, Est GFR (MDRD) Non-Af 72, BUN/Creatinine Ratio 18.8, Glucose 135 H, Calcium 8.3 L Current Medications Hydrocodone Bitart/Acetaminophen (Hydrocodone Bitartrate/Apap 5/325 Tablet) 1 tablet PO BID [facility] Last Admin: 10/20/20 09:05 Dose: 1 tablet Documented by: Amitriptyline HCl (Amitriptyline 25 Mg Tablet) 25 mg PO QHS [facility] Last Admin: 10/19/20 21:14 Dose: 25 mg Documented by: Atorvastatin Calcium (Atorvastatin Calcium 40 Mg Tablet) 40 mg PO QHS [facility] Last Admin: 10/19/20 21:15 Dose: 40 mg Documented by: Carvedilol (Carvedilol 25 Mg Tablet) 25 mg PO BID [facility] Last Admin: 10/20/20 09:05 Dose: 25 mg Documented by: Dicyclomine HCl (Dicyclomine 10 Mg Capsule) 10 mg PO QHS PRN PRN Reason: abd cramping Diphenhydramine HCl (Diphenhydramine 25 Mg Capsule) 25 mg PO Q6H PRN PRN PRN Reason: ITCHING & INSOMNIA Last Admin: 10/19/20 23:50 Dose: 25 mg Documented by: Doxycycline Monohydrate (Doxycycline 100 Mg Capsule) 100 mg PO BID [facility] Last Admin: 10/20/20 09:05 Dose: 100 mg Documented by: Levothyroxine Sodium (Levothyroxine 88 Mcg Tablet) 88 mcg PO DAILY@0600 [facility] Last Admin: 10/20/20 06:27 Dose: 88 mcg Documented by: Linagliptin (Linagliptin 5 Mg Tablet) 5 mg PO DAILY [facility] Last Admin: 10/20/20 09:05 Dose: 5 mg Documented by: Lisinopril (Lisinopril 20 Mg Tablet) 30 mg PO DAILY [facility] Last Admin: 10/20/20 09:04 Dose: 30 mg Documented by: Morphine Sulfate (Morphine 2 Mg/Ml Syringe) 2 mg IV Q3H PRN PRN PRN Reason: Pain Score 6-10 Last Admin: 10/20/20 03:41 Dose: 2 mg Documented by: Ondansetron HCl (Ondansetron 4 Mg/2 Ml Vial) 4 mg IV Q8H PRN PRN PRN Reason: NAUSEA/VOMITING Last Admin: 10/19/20 04:12 Dose: 4 mg Documented by: Oxymetazoline HCl (Oxymetazoline 0.05% 1 [place].Btl) 1 spray NASAL BID [facility] Last Admin: 10/19/20 21:21 Dose: Not Given Documented by: Pantoprazole Sodium (Pantoprazole Sodium 40 Mg Tablet) 40 mg PO BID [facility] Last Admin: 10/20/20 09:05 Dose: 40 mg Documented by: Sodium Chloride (0.9% Saline Lock 10 Ml Syringe) 10 - 40 ml IV UD PRN PRN Reason: SALINE FLUSH Last Admin: 10/19/20 16:57 Dose: 10 ml Documented by: Tizanidine HCl (Tizanidine Hcl 2 Mg Tablet) 2 mg PO TID PRN PRN PRN Reason: MUSCLE SPASM Venlafaxine HCl (Venlafaxine Xr 75 Mg Capsule) 75 mg PO BID [facility] Last Admin: 10/20/20 09:05 Dose: 75 mg Documented by: STROKE Vital Signs/Narrative: Vital Signs Temp Pulse Resp BP Pulse Ox 10/20/20 12:00 97.2 F L 101 H 18 146/73 H 100 Medical Necessity - Tobacco Use Smoking Status: Former smoker Assessment/Plan All Active Problems (Last Reviewed 09/04/19 @ 15:31 by Alayna Galloway) Trigeminal trophic syndrome (Acute) Epistaxis (Acute) Toe fracture, right (Acute) Ankle fracture (Acute) ACTH deficiency (Resolved) Secondary adrenal insufficiency (Resolved) Heme positive stool (Acute) Hypomagnesemia (Acute) Near syncope (Acute) Foot fracture, right (Acute) Closed right ankle fracture (Acute) ARF (acute renal failure) (Resolved) Bacteremia due to Gram-negative bacteria (Resolved) Hyperkalemia (Resolved) Left lower quadrant abdominal pain (Resolved) # Acute bilateral epistaxis * epistaxis has resolved * right pack was removed by ENT; per ENT documentatin, she had a large septal perforation with kalyan let sided nasal pack filling the septal defect. * to continue holding plavix * left nasal packing in place * on PO doxycycline for staph prophylaxis * # hypothyroidism: On Synthroid. #Sinus Tachycardia: * heart rate still remains in 110s and 120s * she is on carvedilol, and received her dose last night and today * will keep overnight o/a of tachycardia, and discharge tomorrow * #Anemia * hb today is 8.3. Was 12.5 on admission but it does appear that her baseline is around 8-9 * will monitor. Transfuse if Hb <7 * #Diabetes : On linagliptin. Insulin sliding scale. Accu-Cheks AC at bedtime. #Hypertension: On lisinopril and carvedilol #History of stroke: Plavix held on account of epistasis. WIll dc plavix on discharge. To follow up with PCP to determine if, and when she should restart it DVT prophylaxis; [facility] Inpatient E&M: 32339 Subs Hosp L2
[2020-10-20] MEDS: Acetaminophen 325 MG Tablet 650 MG PO (17:07)
[2020-10-20] MEDS: 0.9% Saline Lock 10 ML Syringe IV (18:32)
[2020-10-20] MEDS: Dicyclomine 10 MG Capsule PO (21:40)
[2020-10-20] MEDS: Atorvastatin Calcium 40 MG Tablet PO (21:43)
[2020-10-20] MEDS: Amitriptyline 25 MG Tablet PO (21:43)
[2020-10-20] MEDS: tiZANidine HCl 2 MG Tablet PO (21:47)
[2020-10-21 03:17] VITALS: BP 138/62; PULSE 91; RESP 18; TEMP 36.6; O2SAT 99
[2020-10-21 03:43] VITALS: PULSE 89
[2020-10-21] MEDS: Levothyroxine 88 MCG Tablet PO (05:49)
[2020-10-21 07:00] VITALS: PULSE 95
[2020-10-21 07:12] LABS: Absolute Lymphocyte Count 2.08 X10^3/uL (0.83-4.51); Basophil# 0.06 X10^3/uL; Basophil% 0.8 % (0-1); Eosinophil# 0.16 X10^3/uL; Hematocrit 25.1 % (37-47); Lymphocyte # 2.08 X10^3/ul (4.0); Lymphocyte % 26.3 % (19-41); Mean Corp Hgb Conc 31.9 g/dL (32-36); Mean Corpuscular Hgb 30.5 pg (27.0-32.0); Mean Corpuscular Volume 95.8 fL (81-99); Mean Platelet Vol. 9.9 fl (6.2-12.0); Monocyte# 0.55 X10^3/uL; NRBC Flagged by Analyzer 0 % (0-5); Neutrophil % 63.1 % (47-70); Platelet Count 178 K/mm3 (150-450); RBC Distribution Width CV 14.2 % (11.6-14.6); RBC Distribution Width SD 49.1 fl (35.1-43.9); Red Blood Count 2.62 M/mm3 (4.2-5.4); White Blood Count 7.9 K/mm3 (4.4-11.0)
[2020-10-21 07:37] VITALS: O2SAT 98
[2020-10-21 07:43] LABS: Anion Gap 8 (5-15); BUN 12 mg/dL (7-18); BUN/Creat Ratio 15.1 RATIO (10-20); Calcium,Total 8.3 mg/dL (8.5-10.1); Chloride 109 mmol/L (98-107); EST Glomerular Filtration Rate 78 mL/min (>60); Est Glom Filt Rate - Afr Amer 95 mL/min (>60); Estimated Creatinine Clearance 70.88 ml/min; Glucose 129 mg/dL (74-106); Potassium 3.7 mmol/L (3.5-5.1); Sodium Level 140 mmol/L (136-145)
[2020-10-21 07:53] VITALS: BP 153/85; PULSE 107; RESP 18; TEMP 36.8; O2SAT 98
[2020-10-21] MEDS: Carvedilol 25 MG Tablet PO (07:56)
[2020-10-21] MEDS: Doxycycline 100 MG CAPSULE PO (07:56)
[2020-10-21] MEDS: Lisinopril 20 MG Tablet 30 MG PO (07:57)
[2020-10-21] MEDS: Pantoprazole Sodium 40 MG Tablet PO (07:57)
[2020-10-21] MEDS: LINAGLIPTIN 5 MG TABLET PO (07:57)
[2020-10-21] MEDS: Venlafaxine XR 75 MG Capsule PO (07:57)
[2020-10-21] MEDS: HYDROcodone Bitartrate/Apap 5/325 Tablet PO (08:00)
--- NOTE | 2020-10-21 10:18 | CASEMGMT ---
CECE spoke with patient and she still needs transportation home today. She also said she needs transport to see Dr Rivas tomorrow. CECE spoke with front office secretary and asked if she could make the appt and then let me know so SW can see if [facility] can take her. Zulema GONGORA [employer]
--- NOTE | 2020-10-21 10:28 | PCM.DC ---
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, secondary/tertiary (Chronic) Diabetes mellitus (Chronic) Irritable bowel syndrome (Chronic) Coronary artery disease (Chronic) Diabetes mellitus, type 2 (Chronic) Obesity (Chronic) You will use the following diet at home:: Cardiac Your food should be the consistency of: Regular Your liquids should be the consistency of: Regular/Thin Discharge Activity: Return to Normal Activity Weight Bearing Status: Weight bearing as tolerated Call your doctor if you observe: Fever of 101 or Higher, Shortness of breath, Dizziness, Fainting spells, - - nose bleed Instructions: ED Epistaxis (Adult) Allergies/Adverse Reactions: Allergies adhesive Allergy (Verified 10/18/20 23:47) skin irritation amlodipine [From Norvasc] Allergy (Verified 10/18/20 23:47) tachycardia hydromorphone HCl [From Dilaudid] Allergy (Verified 10/18/20 23:47) Itching sulfamethoxazole [From Bactrim] Allergy (Verified 10/18/20 23:47) made my cold sore huge trimethoprim [From Bactrim] Allergy (Verified 10/18/20 23:47) made my cold sore huge Medications to take at Discharge Levothyroxine Sodium [Levoxyl] 88 mcg PO DAILY 11/17/17 Multivitamin [Multiple Vitamins] 1 ea PO DAILY 12/29/17 Pantoprazole Sodium [Protonix] 40 mg PO BID 03/29/19 Amitriptyline HCl 25 mg PO QHS 08/10/19 Alendronate Sodium [Fosamax] 70 mg PO Q7D@0700 #4 tab 08/25/19 Calcium Carb/Vitamin D [Os-Jose 500MG + D] 1 tab PO DAILYCM tab 08/25/19 Magnesium Oxide [Mag-Ox 400] 400 mg PO DAILYCM #30 tab 08/25/19 rosuvastatin 20 mg tablet 20 mg PO QHS 08/25/19 sitagliptin 50 mg tablet 50 mg PO DAILY 09/04/19 venlafaxine 75 mg capsule,extended release 24 hr 75 mg PO BID cap 09/04/19 Lisinopril [Zestril] 30 mg PO DAILY 03/18/20 Hydrocodone Bitart/Apap 5-325 [[place] 5/325] 1 tab PO BID 09/10/20 Ascorbic Acid [Vitamin C] 500 mg PO DAILY 10/19/20 Cetirizine HCl [Zyrtec] 10 mg PO DAILY 10/19/20 Dicyclomine HCl [Bentyl] 20 mg PO TIDAC 10/19/20 Duloxetine Hcl [Cymbalta] 60 mg PO BID 10/19/20 Valacyclovir HCl [Valacyclovir] 500 mg PO DAILY 10/19/20 Zanaflex 4 mg PO TID 10/19/20 Carvedilol [Coreg (Beta Eleni)] 25 mg PO BID #69 tab 10/21/20 Doxycycline 100 mg PO BID 5 Days #10 cap 10/21/20 Ferrous Sulfate 325 mg PO TIDCM #90 tab 10/21/20 The following prescriptions were given: Carvedilol [Coreg (Beta Eleni)] 25 mg PO BID #69 tab Transmission Status: Received by [id number] Doxycycline 100 mg PO BID 5 Days #10 cap Transmission Status: Received by [id number] Ferrous Sulfate 325 mg PO TIDCM #90 tab Transmission Status: Pending to [id number] Primary Care Physician: Brandon Torres DO [Primary Care Provider] - Please follow up with your Primary Care Physician in: 1-2 weeks Test Results: Test results from this visit will be discussed in further detail at your follow-up appointment, if applicable. Please Follow Up With: Donna Flores NP, BUSINESS SYSTEMS ARCHITECT-C Please Follow Up With: Jarrell Rivas MD When: tomorrow (10/22/2020) for removal of nasal packing Proposed Discharge Date: 10/21/20
--- NOTE | 2020-10-21 10:35 | PCM.DC.SUM ---
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 History of stroke (Chronic) 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 Normochromic normocytic anemia (Chronic) etiology never identified - may be due to chronic adrenal insufficiency Hypothyroidism, secondary/tertiary (Chronic) Osteoporosis (Chronic) suspected, has not had a BMD......I suspect this is severe Debility (Chronic) Cardiomyopathy (Chronic) Stroke (Chronic) Right hemiparesis (Chronic) Gait difficulty (Chronic) Diabetes mellitus (Chronic) Irritable bowel syndrome (Chronic) Muscle spasm (Chronic) Allergic rhinitis (Chronic) GERD (gastroesophageal reflux disease) (Chronic) Herpes simplex (Chronic) Hypotension (Chronic) All BP meds discontinued Carotid artery stenosis (Chronic) Hyperlipemia (Chronic) Hypertension (Chronic) Coronary artery disease (Chronic) Diabetes mellitus, type 2 (Chronic) History of Clostridium difficile infection (Chronic) Hx of diverticulitis of colon (Chronic) Status post partial colectomy Obesity (Chronic) Chronic constipation with suspected IBS (Chronic) History of ischemic colitis (Chronic) Bilateral leg weakness (Chronic) Hospital Course and Treatment ENT- Dr Abundio Rivas Operations: None Procedures: - - nasal packing by ENT Summary of Care Provided: The patient is a 59 year old F with a past medical history as outlined who was admitted through the ED on 10/19/2020 with a complaint of bilateral nosebleed. She does have a history of recurrent nosebleeds and had been following up with ENT. On the day of presentation, she acutely started having nosebleed from both nostrils in the evening and came to the ED. She had nasal packing done in both nostrils but bleeding still persisted so she was admitted and managed for bilateral epistasis. Patient was on Plavix. ENT was consulted. Hemoglobin was 12.5 though her baseline was really around 8-9. She was reviewed by ENT and had removal of the nasal packing in the right nostril. Epistasis gradually ceased. Patient stay was complicated by sinus tachycardia which was thought to be due to missed doses of her carvedilol as she was uncomfortable taking her carvedilol with all the nasal bleeding she was having. Tachycardia gradually resolved. She was started on p.o. doxycycline for Staphylococcus prophylaxis with nasal packing in place. Tachycardia resolved once her carvedilol was resumed and she remained stable. She was discharged home on 10/21/2020 with a nasal packing in the left nostril. She is to follow-up with ENT on 10/22/2020 for removal of nasal packing and was given a prescription for p.o. doxycycline 100 mg twice daily for 5 days as antistaph prophylaxis. Plavix was also discontinued and PCP is to make the decision about if and when to resume Plavix which she was on for stroke prophylaxis. Patient seen and examined prior to discharge. She felt well and had no complaints. Review of systems is otherwise negative. Labs and vitals reviewed. Home medication reviewed and reconciled. O/E: Vital Signs Temp Pulse Resp BP Pulse Ox 98.2 F 107 H 18 153/85 H 98 10/21/20 07:53 10/21/20 07:53 10/21/20 07:53 10/21/20 07:53 10/21/20 07:53 [] General: Alert, Oriented x3, Cooperative, HEENT: Atraumatic, PERRLA, EOMI, Normocephalic, nasal packing in left nares. Oral: Dry Mucosa Neck: Supple, No JVD, Negative Carotid Bruits Lungs: Clear to auscultation, Normal air movement, No rhonchi, No wheeze, No rales Cardiovascular: Regular rate, Regular Rhythm, Normal S1, Normal S2, No murmurs Abdomen: Bowel Sounds Present, Soft, Non Tender, Non-Distended, No Hepato-splenomegaly Extremities: No clubbing, No cyanosis, No edema, Capillary Refill Less than 3 Seconds Skin: No rashes, No breakdown Musculoskeletal: No Tenderness to Palpation of Joints or Extremities Lymphatic: No Cervical, Supraclavicular, or Inguinal Adenopathy Neurological: Cranial nerves II-XII grossly intact, Neuro grossly intact, Motor Exam 5/5 strength throughout Psych/Mental Status: Normal Affect, Appropriate, Alert and oriented to time, place, person, mood and affect Plan is for discharge home today. Patient Problems: Active and Suspected Problems (Last Reviewed 09/04/19 @ 15:31 by Alayna Galloway) Trigeminal trophic syndrome (Acute) Epistaxis (Acute) - Physical Exam Vitals/I&O's: Vital Signs Temp Pulse Resp BP Pulse Ox 98.2 F 107 H 18 153/85 H 98 10/21/20 07:53 10/21/20 07:53 10/21/20 07:53 10/21/20 07:53 10/21/20 07:53 Oxygen Delivery Method Room Air Weight: 231 lb 14.821 oz Body Mass Index (BMI) 37.4 Finger Stick Blood Glucose 154 Intake and Output for Last 24 Hours 10/19/20 10/20/20 10/21/20 23:59 23:59 23:59 Intake Total 3133.33 / 3133.33 1840 / 2240 700 / 700 Output Total 1400 / 1400 450 / 450 Balance 1733.33 / 1733.33 1390 / 1790 700 / 700 Laboratory Results 10/21/20 06:15: WBC 7.9, RBC 2.62 L, Hgb 8.0 L, Hct 25.1 L, MCV 95.8, MCH 30.5, MCHC 31.9 L, RDW Std Deviation 49.1 H, RDW Coeff of Lencho 14.2, Plt Count 178, MPV 9.9, Immature Gran % (Auto) 0.800, Neut % (Auto) 63.1, Lymph % (Auto) 26.3, [place] % (Auto) 7.0, Eos % (Auto) 2.0, Baso % (Auto) 0.8, Absolute Neuts (auto) 5.0, Absolute Lymphs (auto) 2.08, Nucleated RBC % 0 10/21/20 06:15: Sodium 140, Potassium 3.7, Chloride 109 H, Carbon Dioxide 23.0, Anion Gap 8, BUN 12, Creatinine 0.80, Estim Creat Clear Calc 70.88, Est GFR (MDRD) Af Amer 95, Est GFR (MDRD) Non-Af 78, BUN/Creatinine Ratio 15.1, Glucose 129 H, Calcium 8.3 L Current Medications Acetaminophen (Acetaminophen 325 Mg Tablet) 650 mg PO Q6H PRN PRN PRN Reason: Pain Score 1-10 Last Admin: 10/20/20 17:07 Dose: 650 mg Documented by: Hydrocodone Bitart/Acetaminophen (Hydrocodone Bitartrate/Apap 5/325 Tablet) 1 tablet PO BID [facility] Last Admin: 10/21/20 08:00 Dose: 1 tablet Documented by: Amitriptyline HCl (Amitriptyline 25 Mg Tablet) 25 mg PO QHS [facility] Last Admin: 10/20/20 21:43 Dose: 25 mg Documented by: Atorvastatin Calcium (Atorvastatin Calcium 40 Mg Tablet) 40 mg PO QHS [facility] Last Admin: 10/20/20 21:43 Dose: 40 mg Documented by: Carvedilol (Carvedilol 25 Mg Tablet) 25 mg PO BID [facility] Last Admin: 10/21/20 07:56 Dose: 25 mg Documented by: Dicyclomine HCl (Dicyclomine 10 Mg Capsule) 10 mg PO QHS PRN PRN Reason: abd cramping Last Admin: 10/20/20 21:40 Dose: 10 mg Documented by: Diphenhydramine HCl (Diphenhydramine 25 Mg Capsule) 25 mg PO Q6H PRN PRN PRN Reason: ITCHING & INSOMNIA Last Admin: 10/19/20 23:50 Dose: 25 mg Documented by: Doxycycline Monohydrate (Doxycycline 100 Mg Capsule) 100 mg PO BID [facility] Last Admin: 10/21/20 07:56 Dose: 100 mg Documented by: Levothyroxine Sodium (Levothyroxine 88 Mcg Tablet) 88 mcg PO DAILY@0600 [facility] Last Admin: 10/21/20 05:49 Dose: 88 mcg Documented by: Linagliptin (Linagliptin 5 Mg Tablet) 5 mg PO DAILY [facility] Last Admin: 10/21/20 07:57 Dose: 5 mg Documented by: Lisinopril (Lisinopril 20 Mg Tablet) 30 mg PO DAILY [facility] Last Admin: 10/21/20 07:57 Dose: 30 mg Documented by: Morphine Sulfate (Morphine 2 Mg/Ml Syringe) 2 mg IV Q3H PRN PRN PRN Reason: Pain Score 6-10 Last Admin: 10/20/20 18:32 Dose: 2 mg Documented by: Ondansetron HCl (Ondansetron 4 Mg/2 Ml Vial) 4 mg IV Q8H PRN PRN PRN Reason: NAUSEA/VOMITING Last Admin: 12/15/20 04:12 Dose: 4 mg Documented by: Oxymetazoline HCl (Oxymetazoline 0.05% 1 [place].Btl) 1 spray NASAL BID [facility] Last Admin: 10/21/20 08:02 Dose: Not Given Documented by: Pantoprazole Sodium (Pantoprazole Sodium 40 Mg Tablet) 40 mg PO BID [facility] Last Admin: 10/21/20 07:57 Dose: 40 mg Documented by: Sodium Chloride (0.9% Saline Lock 10 Ml Syringe) 10 - 40 ml IV UD PRN PRN Reason: SALINE FLUSH Last Admin: 10/20/20 18:32 Dose: 10 ml Documented by: Tizanidine HCl (Tizanidine Hcl 2 Mg Tablet) 2 mg PO TID PRN PRN PRN Reason: MUSCLE SPASM Last Admin: 10/20/20 21:47 Dose: 2 mg Documented by: Venlafaxine HCl (Venlafaxine Xr 75 Mg Capsule) 75 mg PO BID [facility] Last Admin: 10/21/20 07:57 Dose: 75 mg Documented by: Discharge Diet: Low fat/ Low Cholesterol Discharge Activity: Return to Normal Activity Weight Bearing Status: Weight bearing as tolerated Call your doctor if you observe: Fever of 101 or Higher, Shortness of breath, Dizziness, Fainting spells, - - nose bleed Home Medications: Medications to take at Discharge Levothyroxine Sodium [Levoxyl] 88 mcg PO DAILY 11/17/17 Multivitamin [Multiple Vitamins] 1 ea PO DAILY 12/29/17 Pantoprazole Sodium [Protonix] 40 mg PO BID 03/29/19 Amitriptyline HCl 25 mg PO QHS 08/10/19 Alendronate Sodium [Fosamax] 70 mg PO Q7D@0700 #4 tab 08/25/19 Calcium Carb/Vitamin D [Os-Jose 500MG + D] 1 tab PO DAILYCM tab 08/25/19 Magnesium Oxide [Mag-Ox 400] 400 mg PO DAILYCM #30 tab 08/25/19 rosuvastatin 20 mg tablet 20 mg PO QHS 08/25/19 sitagliptin 50 mg tablet 50 mg PO DAILY 09/04/19 venlafaxine 75 mg capsule,extended release 24 hr 75 mg PO BID cap 09/04/19 Lisinopril [Zestril] 30 mg PO DAILY 03/18/20 Hydrocodone Bitart/Apap 5-325 [[place] 5/325] 1 tab PO BID 09/10/20 Ascorbic Acid [Vitamin C] 500 mg PO DAILY 10/19/20 Cetirizine HCl [Zyrtec] 10 mg PO DAILY 10/19/20 Dicyclomine HCl [Bentyl] 20 mg PO TIDAC 10/19/20 Duloxetine Hcl [Cymbalta] 60 mg PO BID 10/19/20 Valacyclovir HCl [Valacyclovir] 500 mg PO DAILY 10/19/20 Zanaflex 4 mg PO TID 10/19/20 Carvedilol [Coreg (Beta Eleni)] 25 mg PO BID #69 tab 10/21/20 Doxycycline 100 mg PO BID 5 Days #10 cap 10/21/20 Ferrous Sulfate 325 mg PO TIDCM #90 tab 10/21/20 Following Prescriptions Were Given to Patient: Carvedilol [Coreg (Beta Eleni)] 25 mg PO BID #69 tab Transmission Status: Received by [id number] Doxycycline 100 mg PO BID 5 Days #10 cap Transmission Status: Received by [id number] Ferrous Sulfate 325 mg PO TIDCM #90 tab Transmission Status: Received by [id number] Primary Care Physician: Brandon Torres DO [Primary Care Provider] - Please follow up with your Primary Care Physician in: 1-2 weeks Please Follow Up With: Donna Flores SUPERVISOR WELDING EQUIPMENT REPAIRER, SUPERVISOR WELDING EQUIPMENT REPAIRER-C Please Follow Up With: Jarrell Rivas MD When: tomorrow (10/22/2020) for removal of nasal packing Patient Instructions: ED Epistaxis (Adult) Disposition: Home Minutes spent on discharge:: 40 Patient Condition:: Stable Medical Necessity - Tobacco Use Smoking Status: Former smoker Meaningful Use Info Meaningful Use Diagnoses (Choose all that apply): None applicable Inpatient E&M: 03252 Disch Hosp
--- NOTE | 2020-10-21 11:18 | CASEMGMT ---
Patient's appt is Sunday at 1:15p. SW called [facility] van transport and they are not able to do this time. They could do 3p. SW called [facility] and they could not change patient's appt to 3p. SW spoke with patient and let her know. She said she will figure it out. SW asked if she ever uses her insurance for transportation. She didn't think she could use it for local transport. [facility] told her SW will call her insurance to see if transportation can be arranged. CECE called [facility] and arranged for patient to get picked up tomorrow, Sunday10-22-2020 between 12:30 and 1p. [facility] did schedule a roller picker time of 2:15. Otherwise patient would have to call after appt and wait for 30-[place] [id number] CECE wrote down all of this information for patient and gave it to her. CECE also gave her the number if she needed to cancel the roller picker time. CECE also told her the insurance will call her when they have a company set up for transport. She thanked [facility] for the assistance. Zulema GONGORA MSW
--- NOTE | 2020-10-21 12:42 | PHA.DC.MC ---
Pharmacy Service has performed discharge medication reconciliation and counseling for this patient. 1. DOXYCYCLINE 100MG PO BID X 5 DAYS 2. FERROUS SULFATE 325MG PO TIDCM The patient's discharge medication list was reviewed for discrepancies and discrepancies were resolved. Home Medications Levothyroxine Sodium [Levoxyl] 88 mcg PO DAILY 11/17/17 Multivitamin [Multiple Vitamins] 1 ea PO DAILY 12/29/17 Pantoprazole Sodium [Protonix] 40 mg PO BID 03/29/19 Amitriptyline HCl 25 mg PO QHS 08/10/19 Alendronate Sodium [Fosamax] 70 mg PO Q7D@0700 #4 tab 08/25/19 Calcium Carb/Vitamin D [Os-Jose 500MG + D] 1 tab PO DAILYCM tab 08/25/19 Magnesium Oxide [Mag-Ox 400] 400 mg PO DAILYCM #30 tab 08/25/19 rosuvastatin 20 mg tablet 20 mg PO QHS 08/25/19 sitagliptin 50 mg tablet 50 mg PO DAILY 09/04/19 venlafaxine 75 mg capsule,extended release 24 hr 75 mg PO BID cap 09/04/19 Lisinopril [Zestril] 30 mg PO DAILY 03/18/20 Hydrocodone Bitart/Apap 5-325 [[place] 5/325] 1 tab PO BID 09/10/20 Ascorbic Acid [Vitamin C] 500 mg PO DAILY 10/19/20 Cetirizine HCl [Zyrtec] 10 mg PO DAILY 10/19/20 Dicyclomine HCl [Bentyl] 20 mg PO TIDAC 10/19/20 Duloxetine Hcl [Cymbalta] 60 mg PO BID 10/19/20 Valacyclovir HCl [Valacyclovir] 500 mg PO DAILY 10/19/20 Zanaflex 4 mg PO TID 10/19/20 Carvedilol [Coreg (Beta Eleni)] 25 mg PO BID #69 tab 10/21/20 Doxycycline 100 mg PO BID 5 Days #10 cap 10/21/20 Ferrous Sulfate 325 mg PO TIDCM #90 tab 10/21/20 The patient was counseled on the following discharge medications and changes in medications for homegoing were reviewed. The Reason for Use, instructions for use, and potential side effects were reviewed for all new medications. The patient's questions regarding all of their medications were answered. The patient was able to verbally demonstrate an understanding of their discharge medications.
--- NOTE | 2020-10-22 12:09 | CASEMGMT ---
CECE faxed patient's discharge instructions to [facility] as she is active with them. Zulema GONGORA FLIGHT TEST SHOP MECHANIC
--- NOTE | 2020-10-22 14:53 | CASEMGMT ---
DRE DELGADILLO Discharge Follow-up Phone Call: CHAPINCITOMatt: 12 Strata: 3 Call Date: 10/22/20 Discharge Date: 10/21/20 Time of Call: 1455 Duration: 3 min Admitting Diagnosis: epitaxis DRE DELGADILLO completed follow-up phone call after recent hospitalization. Patient states she is doing well and had no questions or concerns at this time. Patient was able to fill prescriptions without any issues. Patient states she has follow-up appts scheduled. Patient had no further questions or concerns at this time.
== END 2020-10-21 14:34 | disposition home or self-care (01) | DRG 151 ==
LOC: ED 10-19 01:45 → PCU 10-19 02:45
PROVIDERS: Admitting Provider Family Medicine; Emergency Provider Emergency Medicine; PCP Student in an Organized Health Care Education/Training Program; Visit Provider Student in an Organized Health Care Education/Training Program
DX: R04.0 Epistaxis (principal); D68.9 Coagulation defect, unspecified; G81.91 Hemiplegia, unspecified affecting right dominant side; I42.9 Cardiomyopathy, unspecified; G50.8 Other disorders of trigeminal nerve; T45.525A Adverse effect of antithrombotic drugs, initial encounter; Y92.9 Unspecified place or not applicable; J34.89 Other specified disorders of nose and nasal sinuses; R00.0 Tachycardia, unspecified; D64.9 Anemia, unspecified; E11.42 Type 2 diabetes mellitus with diabetic polyneuropathy; E03.9 Hypothyroidism, unspecified; E66.9 Obesity, unspecified; E78.5 Hyperlipidemia, unspecified; E83.42 Hypomagnesemia; K58.9 Irritable bowel syndrome, unspecified; I25.10 Atherosclerotic heart disease of native coronary artery without angina pectoris; K21.9 Gastro-esophageal reflux disease without esophagitis; M81.0 Age-related osteoporosis without current pathological fracture; M19.90 Unspecified osteoarthritis, unspecified site; F32.9 Major depressive disorder, single episode, unspecified; I10 Essential (primary) hypertension; E78.1 Pure hyperglyceridemia; G56.00 Carpal tunnel syndrome, unspecified upper limb; Z79.02 Long term (current) use of antithrombotics/antiplatelets; Z68.39 Body mass index [BMI] 39.0-39.9, adult; Z86.73 Personal history of transient ischemic attack (TIA), and cerebral infarction without residual deficits; Z86.39 Personal history of other endocrine, nutritional and metabolic disease; Z87.19 Personal history of other diseases of the digestive system; Z86.19 Personal history of other infectious and parasitic diseases; Z79.899 Other long term (current) drug therapy; Z87.891 Personal history of nicotine dependence; Z90.49 Acquired absence of other specified parts of digestive tract
CPT/HCPCS: 36415; 80048; 80053; 82962; 85025; 85610; 85730; 86850; 86900; 86901; 93005; 99285; J7030; A4216; J2405

== ENCOUNTER 2021-01-14 21:40 | Inpatient (IN) | payer MEDICARE, MEDICAID, SELFPAY ==
[2020-10-19 03:38] VITALS: BMI 37.4
[2021-01-14] VITALS (8 sets, daily range): BP systolic 161–193; BP diastolic 119–131; PULSE 104–140; RESP 12–34; TEMP 36.4–36.6; O2SAT 98–100; BMI 38.5
--- NOTE | 2021-01-14 21:45 | EKG12_ITS ---
Test Reason : SOB Blood Pressure : / mmHG Vent. Rate : 116 BPM Atrial Rate : 116 BPM P-R Int : 160 ms QRS Dur : 100 ms QT Int : 326 ms P-R-T Axes : 058 046 054 degrees QTc Int : 453 ms Sinus tachycardia Otherwise normal ECG Confirmed by JUAN CASTRO, KALIA ([id number]), video effects editor ANASTASIA HENSON ([id number]) on 01/17/2021 10:32:45 A M Referred By: CONCHITA Confirmed By:WARNER MARTINEZ MD
--- NOTE | 2021-01-14 21:47 | ED.VIS.DYS ---
History of Present Illness Chief Complaint: Shortness of Breath Informant: Patient Onset: Today Narrative: Patient 6-year-old female with history of trigeminal trophic syndrome, adrenal insufficiency, chronic anemia, cardiomyopathy, diabetes mellitus, stroke, IBS and history of C. difficile presenting with difficulty breathing. Patient notes she used to smoke and had asthma secondary to this. She is been having nasal congestion which is chronic for her over the past few days is been a little bit worse. Today suddenly she had a very hard time breathing. She called 911 and they found her to be 85% on room air. She was 98% with 4 L nasal cannula however she continued significant work of breathing so they placed her on CPAP in route. This has helped her symptoms. Patient denies associated chest pain. She denies any fever or chills. She denies any Covid symptoms. Exposures. No other complaints at this time. No swelling of her legs. Past Medical History - Allergies and Home Meds Allergies/Adverse Reactions: Allergies adhesive Allergy (Verified 10/18/20 23:47) skin irritation amlodipine [From Norvasc] Allergy (Verified 10/18/20 23:47) tachycardia hydromorphone HCl [From Dilaudid] Allergy (Verified 10/18/20 23:47) Itching sulfamethoxazole [From Bactrim] Allergy (Verified 10/18/20 23:47) made my cold sore huge trimethoprim [From Bactrim] Allergy (Verified 10/18/20 23:47) made my cold sore huge Primary Care Physician: Brandon Torres DO [Primary Care Provider] - Past Medical History: - - trigeminal trophic syndrome, adrenal insufficiency, chronic anemia, cardiomyopathy, diabetes mellitus, stroke, IBS and history of C. difficile Surgical History: cholecystectomy, total knee arthroplasty - Bilateral., tonsillectomy, - - partial colon resection due to diverticulosis. Smoking Status: Former smoker - Family History Paternal Family History: Family History (Last Reviewed 09/04/19 @ 15:31 by Alayna Galloway) Grandfather Alcoholism Grandmother Alcoholism Mother Arthritis Diverticulitis COPD (chronic obstructive pulmonary disease) Afib Father Arthritis Diabetes Myocardial infarction Heart disease Hypertension Hyperlipidemia Brother Arthritis Aunt Breast cancer Sister Arthritis Thyroid disorder Skin cancer Uncle Diabetes Family History: Reports: Diabetes, Heart Disease, - Maternal Family History: Family History (Last Reviewed 09/04/19 @ 15:31 by Alayna Galloway) Grandfather Alcoholism Grandmother Alcoholism Mother Arthritis Diverticulitis COPD (chronic obstructive pulmonary disease) Afib Father Arthritis Diabetes Myocardial infarction Heart disease Hypertension Hyperlipidemia Brother Arthritis Aunt Breast cancer Sister Arthritis Thyroid disorder Skin cancer Uncle Diabetes Family History: Reports: Heart Disease, - - osteoarthritis Review of Systems General: Denies: Chills, Fever, Malaise, Sweats Eyes: Denies: Visual changes - bilaterally, Diplopia ENT: Reports: Rhinorrhea. Denies: Sore throat Cardiovascular: Denies: Chest pain, Palpitations, Heart racing Respiratory: Reports: Dyspnea. Denies: Cough, Sputum, Dyspnea on exertion Gastrointestinal: Denies: Abdominal pain, Nausea, Vomiting, Diarrhea, Melena, Hematochezia Genitourinary: Denies: Dysuria, Hematuria, Frequency Musculoskeletal: Denies: Back pain, Extremity Pain Skin: Denies: Rash, Wounds Neurological: Denies: Headache, Weakness, Numbness Physical Exam Vital Signs/Narrative: Vital Signs Temp Pulse Resp BP Pulse Ox 01/14/21 21:41 97.7 F L 140 H 34 H 161/131 H 98 Inital Vital Signs reviewed: Yes General: Well nourished, Well developed, Obese, Acute Distress - Secondary to respiratory effort Head: Normocephalic, Atraumatic Eyes: Perrl, EOMI ENT: Moist mucous membranes, No rhinorrhea Neck: Supple, Nontender, No JVD Cardiovascular: Regular rhythm, No murmurs, Tachycardia Respiratory: Chest nontender, Diminished, - - Tachypneic, coarse breath sounds throughout. Negative for: Wheezing Abdomen: Soft, Nontender, Nondistended, Normal bowel sounds Back: Nontender, Normal Inspection Extremities: Nontender, No edema Skin: Normal color, No rash Neurological: Alert, Oriented x3, Cranial nerves II-XII grossly intact, Normal Strength, Normal Sensation Psychological: Normal affect, Normal Mood Diagnostic/Tx/Re-eval Chest X-Ray - ED: 1 View, Read by ED Physician, Read by Radiologist, - - Interstitial edema Clinical Impression(s) from Imaging Studies Chest X-Ray 01/14/21 22:18 IMPRESSION: Diffuse interstitial prominence that was not present previously. Atelectasis or infiltrate may exist in the right lung base. Electronically Signed: David Weiner MD at 22:34 EST , Service support , Laboratory Data 01/14/21 01/14/21 01/14/21 22:05 22:05 22:05 WBC 10.3 RBC 4.25 Hgb 12.6 Hct 39.7 MCV 93.4 MCH 29.6 MCHC 31.7 L RDW Std Deviation 47.0 H RDW Coeff of Lencho 13.9 Plt Count 447 MPV 9.8 Immature Gran % (Auto) 0.600 Neut % (Auto) 62.4 Lymph % (Auto) 27.7 [place] % (Auto) 3.3 Eos % (Auto) 5.2 H Baso % (Auto) 0.8 Absolute Neuts (auto) 6.4 Absolute Lymphs (auto) 2.84 Nucleated RBC % 0 PT 12.2 INR 1.0 APTT 29.2 Specimen Type Sample Site pH Bicarbonate Actual Total CO2 Base Excess O2 Saturation O2 % ABG pCO2 ABG pO2 Juan Test Respiration Rate O2 Delivery Device POC PEEP POC Pressure Suppt Sodium 138 Potassium 4.6 Chloride 102 Carbon Dioxide 29.0 Anion Gap 7 BUN 13 Creatinine 1.22 H Estim Creat Clear Calc 47.69 Est GFR (MDRD) Af Amer 58 L Est GFR (MDRD) Non-Af 48 L BUN/Creatinine Ratio 10.7 Glucose 187 H Lactic Acid Calcium 9.7 Troponin I < 0.015 B-Natriuretic Peptide 01/14/21 01/14/21 01/14/21 22:05 22:05 22:05 WBC RBC Hgb Hct MCV MCH MCHC RDW Std Deviation RDW Coeff of Lencho Plt Count MPV Immature Gran % (Auto) Neut % (Auto) Lymph % (Auto) [place] % (Auto) Eos % (Auto) Baso % (Auto) Absolute Neuts (auto) Absolute Lymphs (auto) Nucleated RBC % PT INR APTT Specimen Type ART Sample Site L Radial pH 7.40 Bicarbonate Actual 23.2 Total CO2 24 Base Excess -2 O2 Saturation 100 H O2 % 50 ABG pCO2 37.9 ABG pO2 183 H Juan Test Positive Respiration Rate 12 O2 Delivery Device BiPAP POC PEEP 8 POC Pressure Suppt 8 Sodium Potassium Chloride Carbon Dioxide Anion Gap BUN Creatinine Estim Creat Clear Calc Est GFR (MDRD) Af Amer Est GFR (MDRD) Non-Af BUN/Creatinine Ratio Glucose Lactic Acid 1.9 Calcium Troponin I B-Natriuretic Peptide 367.8 H - Rhythm Strip Rhythm Strip: Sinus Tach Rate: 116 Ectopy: None - EKG Initial EKG Interpretation: Sinus Tachycardia, - - Tachycardia at a rate of 116Normal axisNormal intervalsNormal ST segmentsCompared to prior EKG on 10/20/2020 patient has increased tachycardia Treatment - Dyspnea: Oxygen, Albuterol, Steroid Repeat Evaluation: Improved - Medical Decision Making Since evaluated for increased work of breathing. On arrival patient is in respiratory distress as she is significantly tachypneic and requiring CPAP from EMS because of her work of breathing. She is no longer hypoxic with supplemental oxygen. Patient breathing seemed to worsen very quickly tonight. She is transition to BiPAP and ABG is obtained. ABG actually is normal except for elevated O2. Patient's FiO2 is decreased on BiPAP. She is not decompensated based on her ABG. She is given breathing treatments and on reevaluation she has significant improvement of her work of breathing. EMS reported that she was more wet sounding and she is coarse sounding on my exam. Chest x-ray shows pulmonary vascular congestion. This is more consistent with CHF. Her BNP is also elevated. Patient is given IV Lasix. She continues to be quite hypertensive in the emergency room. Her differential includes asthma exacerbation, CHF exacerbation and flash pulmonary edema. Is possible she can be a combination of the above. Patient is given Solu-Medrol as well. She is given 20 mg IV labetalol and then another 20 mg for blood pressure control. After speaking with hospitalist patient is given additional 40 mg of IV Lasix. Patient is actually taken off of BiPAP as she has significant improvement while in the ER. Her respiratory rate, heart rate and blood pressure have improved now. Patient will be admitted to PCU for further evaluation treatment. She is agreeable this plan of care. Critical care time (excluding procedures): Performing Direct Patient Care at Bedside - 35 minutes. Patient is in significant respiratory distress requiring BiPAP because of her increased work of breathing. Frequent reevaluations as well as treatment for presumed mixture of asthma exacerbation and CHF. ED Disposition - Plan for ED Patient: Disposition: Acute Care Hospital [facility] Diagnosis: Asthma exacerbation, Pulmonary vascular congestion, Hypertensive urgency Referrals: Brandon Torres DO [Primary Care Provider] -
[2021-01-14] MEDS: MethylPREDNISolone 125 MG/2 ML Vial IV (21:53)
[2021-01-14 22:11] LABS: Allen Test Positive; Base Excess -2 mmol/L (-2 to +2); Bicarbonate 23.2 mmol/L (22-26); Blood Gas Specimen Type ART; FI02 50; O2 Delivery Device BiPAP; PEEP 8; PO2 183 mmHG (75-100); PS 8; RR 12; SITE L Radial; SO2 100 % (95-99); Total Carbon Dioxide 24 mmol/L; pCO2 37.9 mmHg (35-45)
[2021-01-14 22:15] LABS: Absolute Lymphocyte Count 2.84 X10^3/uL (0.83-4.51); Absolute Neutrophil Count 6.4 X10^3/uL (2.0-7.7); Basophil# 0.08 X10^3/uL; Basophil% 0.8 % (0-1); Eosinophil# 0.53 X10^3/uL; Eosinophils% 5.2 % (0-5); Hematocrit 39.7 % (37-47); Hemoglobin 12.6 g/dL (12.0-15.0); Lymphocyte # 2.84 X10^3/ul (4.0); Lymphocyte % 27.7 % (19-41); Mean Corp Hgb Conc 31.7 g/dL (32-36); Mean Corpuscular Hgb 29.6 pg (27.0-32.0); Mean Corpuscular Volume 93.4 fL (81-99); Mean Platelet Vol. 9.8 fl (6.2-12.0); Monocyte# 0.34 X10^3/uL; Monocyte% 3.3 % (0-10); NRBC Flagged by Analyzer 0 % (0-5); Neutrophil % 62.4 % (47-70); Platelet Count 447 K/mm3 (150-450); RBC Distribution Width CV 13.9 % (11.6-14.6); Red Blood Count 4.25 M/mm3 (4.2-5.4); White Blood Count 10.3 K/mm3 (4.4-11.0)
[2021-01-14] MEDS: Albuterol 2.5 MG/3 ML VIAL.NEB. INHALATION ×2 (22:15→22:23)
[2021-01-14] MEDS: Ipratropium/Albuterol Sulfate 3 ML AMPUL.NEB INHALATION (22:15)
--- NOTE | 2021-01-14 22:18 | RAD_ITS ---
STUDY: X-RAY CHEST REASON FOR EXAM: Female, 60 years old. sob TECHNIQUE: Single AP portable view of the chest. COMPARISON: 08/17/2019. FINDINGS: Moderate lung volumes. Diffuse interstitial prominence not present previously. Findings could represent interval pulmonary fibrosis and/or interstitial edema. Cannot exclude a more focal infiltrate or atelectasis in the right lung base. No effusions. Normal size heart. Normal mediastinum and jonathan. Normal visualized pulmonary arteries. Normal visualized aortic arch and descending thoracic aorta. There are diffuse degenerative changes of the visualized thoracic spine. Normal visualized ribs, clavicles, and shoulders. There is no demonstrated abnormality of the visualized soft tissue structures of the upper abdomen. RAD/Chest 1 View (Portable) IMPRESSION: Diffuse interstitial prominence that was not present previously. Atelectasis or infiltrate may exist in the right lung base. Electronically Signed: David Weiner MD at 22:34 EST , Service support ,
[2021-01-14 22:32] LABS: Anion Gap 7 (5-15); BUN 13 mg/dL (7-18); BUN/Creat Ratio 10.7 RATIO (10-20); Calcium,Total 9.7 mg/dL (8.5-10.1); Chloride 102 mmol/L (98-107); Creatinine, Serum 1.22 mg/dL (0.55-1.02); EST Glomerular Filtration Rate 48 mL/min (>60); Est Glom Filt Rate - Afr Amer 58 mL/min (>60); Estimated Creatinine Clearance 47.69 ml/min; Glucose 187 mg/dL (74-106); Potassium 4.6 mmol/L (3.5-5.1); Sodium Level 138 mmol/L (136-145)
[2021-01-14 22:35] LABS: Lactic Acid 1.9 mmol/L (0.4-1.9)
[2021-01-14 22:39] LABS: BNP,B-Type NATRIURETIC PEPTIDE 367.8 pg/mL (0-100)
[2021-01-14] MEDS: Labetalol (Prefilled) 20 MG/4 ML IV ×2 (22:44→23:55)
[2021-01-14 22:53] LABS: Prothrombin Time (Protime)PT. 12.2 SECONDS (11.7-14.9)
[2021-01-14 22:54] LABS: Partial Thromboplast Time 29.2 Seconds (24.1-36.2)
[2021-01-14] MEDS: Furosemide 20 MG/2 ML VIAL IV (23:16)
--- NOTE | 2021-01-14 23:55 | PCM.HP.STD ---
Problem List (1) Acute respiratory failure with hypoxia Status: Acute (2) Pulmonary edema Status: Acute (3) Trigeminal trophic syndrome Status: Acute (4) Epistaxis Status: Acute (5) Toe fracture, right Status: Acute Qualifiers: Encounter type: initial encounter Comment: multiple toes (6) Ankle fracture Status: Acute Comment: R (7) Falls Status: Chronic (8) Neuropathy Status: Chronic Comment: secondary to DM (9) History of stroke Status: Chronic Comment: 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 (10) ACTH deficiency Status: Resolved Comment: new diagnosis - (11) Secondary adrenal insufficiency Status: Resolved Comment: new diagnosis - likely due to pituitary or hypothalamic disease (12) Normochromic normocytic anemia Status: Chronic Comment: etiology never identified - may be due to chronic adrenal insufficiency (13) Heme positive stool Status: Acute (14) Hypomagnesemia Status: Acute (15) Hypothyroidism, secondary/tertiary Status: Chronic (16) Osteoporosis Status: Chronic Qualifiers: Osteoporosis type: age-related Presence of current pathological fracture: with current pathological fracture Encounter type: subsequent encounter Fracture healing: with routine healing Qualified Code(s): M80.00XD - Age-related osteoporosis with current pathological fracture, unspecified site, subsequent encounter for fracture with routine healing Comment: suspected, has not had a BMD......I suspect this is severe (17) Debility Status: Chronic (18) Near syncope Status: Acute (19) Foot fracture, right Status: Acute (20) Closed right ankle fracture Status: Acute (21) Cardiomyopathy Status: Chronic (22) Stroke Status: Chronic (23) Right hemiparesis Status: Chronic (24) Gait difficulty Status: Chronic (25) Diabetes mellitus Status: Chronic Qualifiers: Diabetes mellitus type: type 2 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: without intermodal truck driver use Diabetes mellitus complication status: with neurologic complications Diabetes mellitus complication detail: with polyneuropathy Qualified Code(s): E11.42 - Type 2 diabetes mellitus with diabetic polyneuropathy (26) Irritable bowel syndrome Status: Chronic (27) Muscle spasm Status: Chronic (28) Allergic rhinitis Status: Chronic (29) GERD (gastroesophageal reflux disease) Status: Chronic (30) Herpes simplex Status: Chronic (31) Hypotension Status: Chronic Comment: All BP meds discontinued (32) Carotid artery stenosis Status: Chronic Qualifiers: Laterality: right Qualified Code(s): I65.21 - Occlusion and stenosis of right carotid artery (33) Hyperlipemia Status: Chronic (34) Hypertension Status: Chronic (35) Coronary artery disease Status: Chronic (36) Diabetes mellitus, type 2 Status: Chronic (37) History of Clostridium difficile infection Status: Chronic (38) Hx of diverticulitis of colon Status: Chronic Comment: Status post partial colectomy (39) Obesity Status: Chronic (40) Chronic constipation with suspected IBS Status: Chronic (41) History of ischemic colitis Status: Chronic (42) ARF (acute renal failure) Status: Resolved Comment: due to dehydration (43) Bilateral leg weakness Status: Chronic (44) Asthma exacerbation Status: Acute History of Present Illness Date of Admission: 01/14/21 Chief Complaint: Patient with sudden respiratory distress, could not breathe for about 2 hours prior to arrival. The patient is a 60 year old F with multiple comorbidities at 2 to 3 days of snuffles, postnasal drip and sinus tenderness. She also felt chest tightness on the day of admission. Severe sudden onset of shortness of breath about 2 hours before coming here in the ER. She had albuterol treatment at home but did not work. [] Triage vitals were blood pressure 161/131, temperature 97.7, heart rate 140/min, respiratory rate 34, pulse ox 98% on CPAP. Subsequently patient was put on BiPAP. ABG 7.4 0/38/183 on 50% BiPAP. Chest x-ray shows diffuse interstitial prominence suggestive of interstitial edema atelectasis/infiltrate in the right lung base. Patient also got Lasix 60 mg IV, labetalol 40 mg IV, DuoNeb nebulization and Solu-Medrol. Patient felt much better after BiPAP and Lasix. BNP elevated. 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 Normochromic normocytic anemia (Chronic) etiology never identified - may be due to chronic adrenal insufficiency Hypothyroidism, secondary/tertiary (Chronic) Osteoporosis (Chronic) suspected, has not had a BMD......I suspect this is severe Debility (Chronic) Cardiomyopathy (Chronic) Stroke (Chronic) Right hemiparesis (Chronic) Gait difficulty (Chronic) Diabetes mellitus (Chronic) Irritable bowel syndrome (Chronic) Muscle spasm (Chronic) Allergic rhinitis (Chronic) GERD (gastroesophageal reflux disease) (Chronic) Herpes simplex (Chronic) Hypotension (Chronic) All BP meds discontinued Carotid artery stenosis (Chronic) Hyperlipemia (Chronic) Hypertension (Chronic) Coronary artery disease (Chronic) Diabetes mellitus, type 2 (Chronic) History of Clostridium difficile infection (Chronic) Hx of diverticulitis of colon (Chronic) Status post partial colectomy Obesity (Chronic) Chronic constipation with suspected IBS (Chronic) History of ischemic colitis (Chronic) Bilateral leg weakness (Chronic) Medical History: Medical History (Last Reviewed 09/04/19 @ 15:31 by Alayna Galloway) Anemia D64.9 Arthritis M19.90 Asthma J45.909 Bone fracture T14.8XXA Carpal tunnel syndrome G56.00 Essential hypertension I10 GI problem R19.8 Gallstones K80.20 Heart disease I51.9 High triglycerides E78.1 History of blood transfusion Z92.89 History of emotional problems Z86.59 Hyperlipidemia E78.5 Hypothyroidism E03.9 IBS (irritable bowel syndrome) K58.9 Kidney disease N28.9 Kidney failure N19 Neuropathy G62.9 Osteoarthritis M19.90 Osteopenia M85.80 Osteoporosis M81.0 Recurrent infections B99.9 Seasonal allergies J30.2 Stomach ulcer K25.9 Stroke I63.9 Type 2 diabetes mellitus E11.9 Vascular disease I99.9 Chronic headaches R51 Allergies adhesive Allergy (Verified 10/18/20 23:47) skin irritation amlodipine [From Norvasc] Allergy (Verified 10/18/20 23:47) tachycardia hydromorphone HCl [From Dilaudid] Allergy (Verified 10/18/20 23:47) Itching sulfamethoxazole [From Bactrim] Allergy (Verified 10/18/20 23:47) made my cold sore huge trimethoprim [From Bactrim] Allergy (Verified 10/18/20 23:47) made my cold sore huge Home Medications: Ambulatory Orders Medication Instructions Recorded Levothyroxine Sodium [Levoxyl] 88 mcg PO DAILY 11/17/17 Multivitamin [Multiple Vitamins] 1 ea PO DAILY 12/29/17 Pantoprazole Sodium [Protonix] 40 mg PO BID 03/29/19 Amitriptyline HCl 25 mg PO QHS 08/10/19 Alendronate Sodium [Fosamax] 70 mg PO Q7D@0700 #4 tab 08/25/19 Calcium Carb/Vitamin D [Os-Jose 1 tab PO DAILYCM tab 08/25/19 500MG + D] Magnesium Oxide [Mag-Ox 400] 400 mg PO DAILYCM #30 tab 08/25/19 rosuvastatin 20 mg tablet 20 mg PO QHS 08/25/19 sitagliptin 50 mg tablet 50 mg PO DAILY 09/04/19 venlafaxine 75 mg capsule,extended 75 mg PO BID cap 09/04/19 release 24 hr Lisinopril [Zestril] 30 mg PO DAILY 03/18/20 Hydrocodone Bitart/Apap 5-325 1 tab PO BID 09/10/20 [[place] 5/325] Ascorbic Acid [Vitamin C] 500 mg PO DAILY 10/19/20 Cetirizine HCl [Zyrtec] 10 mg PO DAILY 10/19/20 Dicyclomine HCl [Bentyl] 20 mg PO TIDAC 10/19/20 Duloxetine Hcl [Cymbalta] 60 mg PO BID 10/19/20 Valacyclovir HCl [Valacyclovir] 500 mg PO DAILY 10/19/20 Zanaflex 4 mg PO TID 10/19/20 Carvedilol [Coreg (Beta Eleni)] 25 mg PO BID #69 tab 10/21/20 Ferrous Sulfate 325 mg PO TIDCM #90 tab 10/21/20 Surgical History: Surgical History (Last Reviewed 09/04/19 @ 15:31 by Alayna Galloway) Ankle fracture S82.899A 08/10/19 Fracture of left femur S72.92XA 03/21 History of arthroscopic knee surgery Z98.890 L x 3 [id number] History of back surgery Z98.890 L5, S1, S2 08/22 History of bilateral knee replacement Z96.653 R-2004, L-2014 History of carpal tunnel release Z98.890 R 1990 , 2011 History of cholecystectomy Z90.49 1988 History of intestine removal Z90.49 13 inches 09/19 History of tonsillectomy and adenoidectomy Z98.890 1984 History of ventral hernia repair Z98.890, Z87.19 02/2014 Strangulated ventral hernia K43.6 09/22 Surgical History: cholecystectomy, total knee arthroplasty - Bilateral., tonsillectomy, - - partial colon resection due to diverticulosis. 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 Smoking Status: Former smoker - Quit about 30 years - *Family History Paternal Family History: Family History (Last Reviewed 09/04/19 @ 15:31 by Alayna Galloway) Grandfather Alcoholism Grandmother Alcoholism Mother Arthritis Diverticulitis COPD (chronic obstructive pulmonary disease) Afib Father Arthritis Diabetes Myocardial infarction Heart disease Hypertension Hyperlipidemia Brother Arthritis Aunt Breast cancer Sister Arthritis Thyroid disorder Skin cancer Uncle Diabetes History Items: Diabetes, Heart Disease, - Maternal Family History: Family History (Last Reviewed 09/04/19 @ 15:31 by Alayna Galloway) Grandfather Alcoholism Grandmother Alcoholism Mother Arthritis Diverticulitis COPD (chronic obstructive pulmonary disease) Afib Father Arthritis Diabetes Myocardial infarction Heart disease Hypertension Hyperlipidemia Brother Arthritis Aunt Breast cancer Sister Arthritis Thyroid disorder Skin cancer Uncle Diabetes History Items: Heart Disease, - - osteoarthritis Review of Systems Constitutional: Denies: Chills, Fever, Weight Change HEENT: Denies: Head Aches, Sinus Congestion, Sinus Drainage Cardiovascular: Reports: Chest Tightness. Denies: Chest Pain, Palpitations Respiratory: Reports: Cough - Occasional, Shortness of Breath, Shortness of breath at rest, Shortness of breath upon exertion. Denies: Sputum production Gastrointestinal: Denies: Abdominal Pain, Nausea, Vomiting Genitourinary: Denies: Dysuria, Frequency Musculoskeletal: Denies: Joint Pain, Joint Tenderness Skin: Denies: Rash, Wounds Neurological: Reports: Balance problems. Denies: Focal weakness, Numbness, Tingling Psychiatric: Denies: Anxiety, Depression, Homicidal Ideations, Suicidal Ideations Hematologic/ Lymphatic: Denies: Easy Bruising, Easy Bleeding VTE Information - Inpt Only VTE Present on Admission: No VTE Mechan Device Prophylaxis: None VTE Pharm Prophylaxis ordered?: Yes Objective: General: Alert, Oriented x3, Cooperative HEENT: Atraumatic, PERRLA, EOMI, Normocephalic Oral: No Gingival or Mucosal Lesions/ Ulcerations Neck: Supple, No JVD, Negative Carotid Bruits Lungs: Air entry diminished in bilateral lung bases. Bilateral expiratory rhonchi present. Cardiovascular: Regular rate, Regular Rhythm, Normal S1, Normal S2, No murmurs Abdomen: Bowel Sounds Present, Soft, Non Tender, Non-Distended : No renal angle tenderness. No suprapubic tenderness. Extremities: No significant ankle edema, Capillary Refill Less than 3 Seconds Skin: No rashes, No breakdown Musculoskeletal: No Tenderness to Palpation of Joints or Extremities Neurological: Cranial nerves II-XII grossly intact, Deep Tendon Reflexes 2+/4 and Symmetrical, Neuro grossly intact Psych/Mental Status: Normal Affect, Appropriate. - Physical Exam Vitals/I&O's: Vital Signs Temp Pulse Resp BP Pulse Ox 97.9 F 104 H 16 193/119 H 100 01/14/21 21:56 01/14/21 23:55 01/14/21 23:55 01/14/21 23:55 01/14/21 23:55 Oxygen Delivery Method Bi-pap Weight: 246 lb 4.101 oz Body Mass Index (BMI) 38.5 Finger Stick Blood Glucose 154 Microbiology Past 72 Hours 01/14/21 21:50 Mucosa - Nose SARS-CoV-2 Antigen (Rapid) - Final Laboratory Results 01/14/21 22:05: WBC 10.3, RBC 4.25, Hgb 12.6, Hct 39.7, MCV 93.4, MCH 29.6, MCHC 31.7 L, RDW Std Deviation 47.0 H, RDW Coeff of Lencho 13.9, Plt Count 447, MPV 9.8, Immature Gran % (Auto) 0.600, Neut % (Auto) 62.4, Lymph % (Auto) 27.7, [place] % (Auto) 3.3, Eos % (Auto) 5.2 H, Baso % (Auto) 0.8, Absolute Neuts (auto) 6.4, Absolute Lymphs (auto) 2.84, Nucleated RBC % 0 01/14/21 22:05: PT 12.2, INR 1.0, APTT 29.2 01/14/21 22:05: Sodium 138, Potassium 4.6, Chloride 102, Carbon Dioxide 29.0, Anion Gap 7, BUN 13, Creatinine 1.22 H, Estim Creat Clear Calc 47.69, Est GFR (MDRD) Af Amer 58 L, Est GFR (MDRD) Non-Af 48 L, BUN/Creatinine Ratio 10.7, Glucose 187 H, Calcium 9.7, Troponin I < 0.015 01/14/21 22:05: Lactic Acid 1.9 01/14/21 22:05: B-Natriuretic Peptide 367.8 H 01/14/21 22:05: Specimen Type ART, Sample Site L Radial, pH 7.40, Bicarbonate Actual 23.2, Total CO2 24, Base Excess -2, O2 Saturation 100 H, O2 % 50, ABG pCO2 37.9, ABG pO2 183 H, Juan Test Positive, Respiration Rate 12, O2 Delivery Device BiPAP, POC PEEP 8, POC Pressure Suppt 8 Assessment/Plan All Active Problems (Last Reviewed 09/04/19 @ 15:31 by Alayna Galloway) Trigeminal trophic syndrome (Acute) Epistaxis (Acute) Acute respiratory failure with hypoxia (Acute) Pulmonary edema (Acute) Asthma exacerbation (Acute) Toe fracture, right (Acute) Ankle fracture (Acute) ACTH deficiency (Resolved) Secondary adrenal insufficiency (Resolved) Heme positive stool (Acute) Hypomagnesemia (Acute) Near syncope (Acute) Foot fracture, right (Acute) Closed right ankle fracture (Acute) ARF (acute renal failure) (Resolved) Bacteremia due to Gram-negative bacteria (Resolved) Hyperkalemia (Resolved) Left lower quadrant abdominal pain (Resolved) 1. Acute hypoxic respiratory failure most probably secondary to pulmonary edema/asthma exacerbation: Patient is being admitted in PCU. Patient had significant improvement after Lasix. Continue Lasix 40 mg IV daily. Patient had 2D echo in August 2019 ported as skin normal LV size, wall motion and systolic function, 65%. Repeat 2D echo. BNP elevated. 2. URI symptoms with possible asthma exacerbation: Continue Solu-Medrol, bronchodilator, incentive spirometry, chest physiotherapy and BiPAP. If patient spikes fever will need antibiotic. Cultures x2 ordered by ER physician. Respiratory panel ordered. 3. hypothyroidism: On Synthroid. 4. Isolated hypotension and sinus tachycardia: Twelve-lead EKG shows sinus tach at 116 bpm. QTC 453 ms. Patient had sinus tachycardia on previous admission. Currently heart rate is 93/min. Blood pressure also elevated. Carvedilol dose decreased to 12.5 mg twice daily as patient had asthma exacerbation. Lisinopril 20 mg daily. 5. Diabetes mellitus type 2: Hold Januvia. Accu-Chek before meals and at bedtime cover with Humalog sliding scale. 6. History of stroke: Plavix held on account of epistasis DVT prophylaxis; Lovenox 40 mg subcu daily. Living will/advanced directive/end of life care: Patient does not have living will or advanced directive. After discussion of benefits/risks procedures involved with full code, DNR CC arrest and DNR CC, the patient opted for DNR-CC Arrest with no intubation Patient does not want artificial life support including intubation, tube feed, ventilator and/chest compression, central venous catheter, vasopressor and DC shock if needed Total time spent in [id number] encounter in discussion of advanced directive 16 minutes. Inpatient E&M: 50522 Init Hosp L3 Procedures: 20017 Advncd Care Plan 30 Min
[2021-01-15] VITALS (25 sets, daily range): BP systolic 158–200; BP diastolic 84–113; PULSE 82–121; RESP 15–22; TEMP 36–37.7; O2SAT 94–100; BMI 37.0
[2021-01-15] MEDS: Ondansetron 4 MG/2 ML Vial IV (00:15)
[2021-01-15] MEDS: Furosemide 40 MG/4 ML Vial IV ×2 (00:23→08:25)
[2021-01-15] MEDS: proCHLORPERazine 10 MG/2 ML Vial 5 MG IV (02:19)
[2021-01-15] MEDS: Morphine 2 MG/ML Syringe IV ×3 (02:24→20:17)
--- NOTE | 2021-01-15 03:11 | CPS ---
pt was too short of breath to do pep therapy, but has done Pep THERAPY before.
[2021-01-15 04:28] LABS: Absolute Lymphocyte Count 0.68 X10^3/uL (0.83-4.51); Absolute Neutrophil Count 16.1 X10^3/uL (2.0-7.7); Basophil# 0.06 X10^3/uL; Basophil% 0.3 % (0-1); Eosinophil# 0.01 X10^3/uL; Eosinophils% 0.1 % (0-5); Hematocrit 44.7 % (37-47); Hemoglobin 13.7 g/dL (12.0-15.0); Lymphocyte # 0.68 X10^3/ul (4.0); Lymphocyte % 3.9 % (19-41); Mean Corp Hgb Conc 30.6 g/dL (32-36); Mean Corpuscular Hgb 29.1 pg (27.0-32.0); Mean Corpuscular Volume 94.9 fL (81-99); Mean Platelet Vol. 9.8 fl (6.2-12.0); Monocyte# 0.23 X10^3/uL; Monocyte% 1.3 % (0-10); NRBC Flagged by Analyzer 0 % (0-5); Neutrophil # 16.07 X10^3/uL (2.7-7.7); Neutrophil % 93.4 % (47-70); Platelet Count 346 K/mm3 (150-450); RBC Distribution Width CV 13.9 % (11.6-14.6); RBC Distribution Width SD 47.8 fl (35.1-43.9); Red Blood Count 4.71 M/mm3 (4.2-5.4); White Blood Count 17.2 K/mm3 (4.4-11.0)
[2021-01-15 05:00] LABS: Anion Gap 12 (5-15); BUN 14 mg/dL (7-18); BUN/Creat Ratio 10.1 RATIO (10-20); Calcium,Total 10.2 mg/dL (8.5-10.1); Chloride 98 mmol/L (98-107); Creatinine, Serum 1.38 mg/dL (0.55-1.02); EST Glomerular Filtration Rate 41 mL/min (>60); Est Glom Filt Rate - Afr Amer 50 mL/min (>60); Estimated Creatinine Clearance 42.16 ml/min; Glucose 195 mg/dL (74-106); Magnesium 1.7 mg/dL (1.6-2.6); Potassium 3.9 mmol/L (3.5-5.1); Sodium Level 136 mmol/L (136-145); Thyroid Stim Hormone (TSH) 0.24 uIU/mL (0.358-3.74)
[2021-01-15] MEDS: Levothyroxine 88 MCG Tablet PO (05:35)
--- NOTE | 2021-01-15 05:55 | ECHOCS_ITS ---
Reason For Study: PULM EDEMA Procedure This was a 2D Doppler, Color Flow transthoracic echocardiogram. The study was technically difficult. Contrast injection was performed. The study was technically limited. Exam performed portable in patient room. Left Ventricle Normal LV size. The estimated ejection fraction is 15 %. There is evidence of diastolic dysfunction. There is severe global hypokinesis of the left ventricle. Right Ventricle Normal RV size. Normal systolic function. Atria Normal left atrium. Normal right atrium. No doppler evidence for ASD. Mitral Valve There is no mitral valve stenosis. No mitral valve insufficiency. Tricuspid Valve There is no tricuspid stenosis. Unable to estimate RV systolic pressure due to inadequate jet, pulmonary artery pressure probably normal. Aortic Valve Aortic sclerosis, no stenosis. There is no aortic stenosis. No aortic valve insufficiency. Pulmonic Valve There is no pulmonic valvular stenosis. No pulmonic valve insufficiency. Great Vessels Normal aortic root. Pericardium/Pleural No pericardial effusion. Medication Diluted definity 4ml given slow IV push to enhance endocardial definition. MMode/2D Measurements & Calculations LVIDd: 4.5 cm IVSd: 0.64 cm Ao root diam: 3.2 cm LVIDs: 3.6 cm LVPWd: 0.68 cm FS: 19.8 % LA dimension(2D): 3.7 cm Time Measurements MV dec time: 0.08 sec Doppler Measurements & Calculations MV E max jaya: 108.8 cm/sec Lat Peak E' Jaya: 5.6 cm/sec Med Peak E' Jaya: 3.0 cm/sec MV A max jaya: 64.2 cm/sec E/E' lat: 19.6 E/E' med: 36.6 MV E/A: 1.7 Ao V2 max: 121.3 cm/sec LV V1 max: 72.3 cm/sec PA V2 max: 73.0 cm/sec Ao max P.9 mmHg LV V1 max P.1 mmHg TR max jaya: 222.0 cm/sec TR max P.7 mmHg Interpretation Summary The estimated ejection fraction is 15 %. There is evidence of diastolic dysfunction. There is severe global hypokinesis of the left ventricle. The study was technically difficult. Contrast injection was performed. Ordering Physician: Juwan Luciano Referring Physician: ALISIA SCOTT Performed By: Dolores Beltre, MARIANA, RVT
[2021-01-15 06:50] LABS: Bedside Glucose 197 mg/dL (70-110)
[2021-01-15] MEDS: Ipratropium/Albuterol Sulfate 3 ML AMPUL.NEB INHALATION ×3 (07:20→14:51)
[2021-01-15] MEDS: Magnesium Chloride 64 MG Delay Rel.Tablet 128 MG PO (08:13)
[2021-01-15] MEDS: Carvedilol 25 MG Tablet PO ×2 (08:14→21:22)
[2021-01-15] MEDS: Lisinopril 20 MG Tablet PO (08:15)
[2021-01-15] MEDS: Dicyclomine 10 MG Capsule 20 MG PO ×3 (08:15→16:43)
[2021-01-15] MEDS: Calcium Carb/Vitamin D 1 TABLET Tablet PO (08:16)
[2021-01-15] MEDS: DULoxetine Hcl 60 MG Capsule PO ×2 (08:17→21:22)
[2021-01-15] MEDS: Enoxaparin 40 MG/0.4 ML Syringe SC (08:17)
[2021-01-15] MEDS: guaiFENesin 1,200 MG Tablet 1200 MG PO ×2 (08:17→21:23)
[2021-01-15] MEDS: Venlafaxine XR 75 MG Capsule PO ×2 (08:17→21:21)
[2021-01-15] MEDS: Pantoprazole Sodium 40 MG Tablet PO ×2 (08:18→21:21)
[2021-01-15] MEDS: Multivitamins,Therapeutic Tablet 1 TABLET PO (08:18)
[2021-01-15] MEDS: Loratadine 10 MG Tablet PO (08:18)
[2021-01-15] MEDS: Acyclovir 200 MG Capsule 400 MG PO ×2 (08:18→21:21)
[2021-01-15] MEDS: Ascorbic Acid 500 MG Tablet PO (08:18)
[2021-01-15] MEDS: Insulin Lispro 100 UNIT/ML INSULN.PEN SC ×4 (08:24→23:04)
[2021-01-15] MEDS: Ferrous Sulfate 325 MG Tablet PO (10:56)
[2021-01-15 11:15] LABS: Free T3 2.6 pg/mL (2.18-3.98); T4 Free Direct 1.48 ng/dL (0.76-1.46)
--- NOTE | 2021-01-15 12:06 | PN_ITS ---
<Renata Rojas CRISIS CLINICIAN - Last Filed: 01/15/21 12:20> Patient Problems: Active and Suspected Problems (Last Reviewed 09/04/19 @ 15:31 by Alayna Mason in) Trigeminal trophic syndrome (Acute) Epistaxis (Acute) Acute respiratory failure with hypoxia (Acute) Pulmonary edema (Acute) Asthma exacerbation (Acute) Toe fracture, right (Acute) multiple toes Ankle fracture (Acute) R Heme positive stool (Acute) Hypomagnesemia (Acute) Near syncope (Acute) Foot fracture, right (Acute) Closed right ankle fracture (Acute) Subjective: Patient seen and examined. Reports improvement in breathing. Remains on supplemental oxygen. Denies fever, chills. - Physical Exam Vitals/I&O's: Vital Signs Temp Pulse Resp BP Pulse Ox 96.8 F L 113 H 20 H 158/106 H 99 01/15/21 10:48 01/15/21 10:48 01/15/21 10:48 01/15/21 10:48 01/15/21 10:48 Oxygen Flow Rate (L/min) 2 Oxygen Delivery Method Nasal Cannula Weight: 230 lb 9.656 oz Body Mass Index (BMI) 37.0 Finger Stick Blood Glucose 154 Intake and Output for Last 24 Hours 01/13/21 01/14/21 01/15/21 23:59 23:59 23:59 Intake Total 680 / 680 Output Total 3200 / 3200 Balance -2520 / -2520 General: Alert, Oriented x3, Cooperative HEENT: Atraumatic, PERRLA, EOMI, Normocephalic Neck: Supple, No JVD, Negative Carotid Bruits Lungs: Clear to auscultation, Diminished Cardiovascular: No murmurs, Tachycardic Abdomen: Bowel Sounds Present, Soft, Non Tender, Non-Distended, Obese Extremities: No clubbing, No cyanosis, No edema, Capillary Refill Less than 3 Seconds Skin: No rashes, No breakdown Musculoskeletal: No Tenderness to Palpation of Joints or Extremities Neurological: Cranial nerves II-XII grossly intact, Neuro grossly intact Psych/Mental Status: Normal Affect, Appropriate Microbiology Past 72 Hours 01/15/21 02:00 Mucosa - Nasopharyngeal Respiratory Panel (PCR) - Final 01/14/21 21:50 Mucosa - Nose SARS-CoV-2 Antigen (Rapid) - Final Laboratory Results 01/14/21 22:05: WBC 10.3, RBC 4.25, Hgb 12.6, Hct 39.7, MCV 93.4, MCH 29.6, MCHC 31.7 L, RDW Std Deviation 47.0 H, RDW Coeff of Lencho 13.9, Plt Count 447, MPV 9.8, Immature Gran % (Auto) 0.600, Neut % (Auto) 62.4, Lymph % (Auto) 27.7, Will % (Auto) 3.3, Eos % (Auto) 5.2 H, Baso % (Auto) 0.8, Absolute Neuts (auto) 6.4, Absolute Lymphs (auto) 2.84, Nucleated RBC % 0 01/14/21 22:05: PT 12.2, INR 1.0, APTT 29.2 01/14/21 22:05: Sodium 138, Potassium 4.6, Chloride 102, Carbon Dioxide 29.0, Anion Gap 7, BUN 13, Creatinine 1.22 H, Estim Creat Clear Calc 47.69, Est GFR (MDRD) Af Amer 58 L, Est GFR (MDRD) Non-Af 48 L, BUN/Creatinine Ratio 10.7, Glucose 187 H, Calcium 9.7, Troponin I < 0.015 01/14/21 22:05: Lactic Acid 1.9 01/14/21 22:05: B-Natriuretic Peptide 367.8 H 01/14/21 22:05: Specimen Type ART, Sample Site L Radial, pH 7.40, Bicarbonate Actual 23.2, Total CO2 24, Base Excess -2, O2 Saturation 100 H, O2 % 50, ABG pCO2 37.9, ABG pO2 183 H, Juan Test Positive, Respiration Rate 12, O2 Delivery Device BiPAP, POC PEEP 8, POC Pressure Suppt 8 01/15/21 04:10: Sodium 136, Potassium 3.9, Chloride 98, Carbon Dioxide 26.0, Anion Gap 12, BUN 14, Creatinine 1.38 H, Estim Creat Clear Calc 42.16, Est GFR (MDRD) Af Amer 50 L, Est GFR (MDRD) Non-Af 41 L, BUN/Creatinine Ratio 10.1, Glucose 195 H, Calcium 10.2 H, Magnesium 1.7, TSH 0.24 L 01/15/21 04:14: WBC 17.2 H, RBC 4.71, Hgb 13.7, Hct 44.7, MCV 94.9, MCH 29.1, MCHC 30.6 L, RDW Std Deviation 47.8 H, RDW Coeff of Lencho 13.9, Plt Count 346, MPV 9.8, Immature Gran % (Auto) 1.000 H, Neut % (Auto) 93.4 H, Lymph % (Auto) 3.9 L, Will % (Auto) 1.3, Eos % (Auto) 0.1, Baso % (Auto) 0.3, Absolute Neuts (auto) 16.1 H, Absolute Lymphs (auto) 0.68 L, Nucleated RBC % 0 01/15/21 04:14: Troponin I < 0.015 01/15/21 06:41: POC Glucose 197 H 01/15/21 07:30: Troponin I < 0.015 01/15/21 10:30: Troponin I < 0.015 01/15/21 10:30: Free T4 1.48 H, Free T3 pg/dL 2.6 Current Medications Acetaminophen (Acetaminophen 325 Mg Tablet) 650 mg PO Q6H PRN PRN PRN Reason: Pain Score 1-10/Temp > 100.7 F Acyclovir (Acyclovir 200 Mg Capsule) 400 mg PO BID [facility] Last Admin: 01/15/21 08:18 Dose: 400 mg Documented by: Al Hydroxide/Mg Hydroxide (Mag Hydrox/Al Hydrox/Simeth 30 Ml Udc) 30 ml PO Q6H PRN PRN PRN Reason: Gastric Burning Albuterol Sulfate (Albuterol 2.5 Mg/3 Ml Vial.Neb.) 2.5 mg INHALATION Q2H PRN PRN PRN Reason: SOB/Wheezing Albuterol/Ipratropium (Ipratropium/Albuterol Sulfate 3 Ml Ampul.Neb) 3 ml INHALATION Q4H.RT [facility] Last Admin: 01/15/21 11:12 Dose: 3 ml Documented by: Alendronate Sodium (Alendronate Sodium 70 Mg Tablet) 70 mg PO Q7D@0700 [facility] Amitriptyline HCl (Amitriptyline 25 Mg Tablet) 25 mg PO QHS [facility] Ascorbic Acid (Ascorbic Acid 500 Mg Tablet) 500 mg PO DAILY [facility] Last Admin: 01/15/21 08:18 Dose: 500 mg Documented by: Atorvastatin Calcium (Atorvastatin Calcium 40 Mg Tablet) 40 mg PO QHS [facility] Calcium/Vitamin D (Calcium Carb/Vitamin D 1 Tablet Tablet) 1 tablet PO DAILYCM [facility] Last Admin: 01/15/21 08:16 Dose: 1 tablet Documented by: Carvedilol (Carvedilol 25 Mg Tablet) 25 mg PO BID [facility] Last Admin: 01/15/21 08:14 Dose: 25 mg Documented by: Dextrose (Dextrose 50%-Water 25 Gm/50 Ml Disp.Syrin) 0 gm IV X1 PRN; Protocol PRN Reason: Hypoglycemia Dicyclomine HCl (Dicyclomine 10 Mg Capsule) 20 mg PO TIDAC [facility] Last Admin: 01/15/21 10:56 Dose: 20 mg Documented by: Duloxetine HCl (Duloxetine Hcl 60 Mg Capsule) 60 mg PO BID [facility] Last Admin: 01/15/21 08:17 Dose: 60 mg Documented by: Enoxaparin Sodium (Enoxaparin 40 Mg/0.4 Ml Syringe) 40 mg SC DAILY [facility] Last Admin: 01/15/21 08:17 Dose: 40 mg Documented by: Ferrous Sulfate (Ferrous Sulfate 325 Mg Tablet) 325 mg PO DAILY@1200 [facility] Last Admin: 01/15/21 10:56 Dose: 325 mg Documented by: Furosemide (Furosemide 40 Mg/4 Ml Vial) 40 mg IV DAILY [facility] Last Admin: 01/15/21 08:25 Dose: 40 mg Documented by: Glucagon (Glucagon 1 Mg/Ml Syringe) 1 mg IM .X1 PRN PRN Reason: Hypoglycemia Guaifenesin (Guaifenesin 1,200 Mg Tablet) 1,200 mg PO BID [facility] Last Admin: 01/15/21 08:17 Dose: 1,200 mg Documented by: Hydralazine HCl (Hydralazine 20 Mg/Ml Vial) 10 mg IV Q4H PRN PRN PRN Reason: SBP>180 Insulin Glargine (Insulin Glargine 100 Units/Ml Pen) 10 units SC BREAKFAST [facility] Last Admin: 01/15/21 08:24 Dose: 10 units Documented by: Insulin Human Lispro (Insulin Lispro 100 Unit/Ml Insuln.Pen) 0 unit SC ACHS [facility]; Protocol Last Admin: 01/15/21 10:55 Dose: 4 units Documented by: Levothyroxine Sodium (Levothyroxine 88 Mcg Tablet) 88 mcg PO DAILY@0600 [facility] Last Admin: 01/15/21 05:35 Dose: 88 mcg Documented by: Lisinopril (Lisinopril 20 Mg Tablet) 20 mg PO DAILY [facility] Last Admin: 01/15/21 08:15 Dose: 20 mg Documented by: Loratadine (Loratadine 10 Mg Tablet) 10 mg PO DAILY [facility] Last Admin: 01/15/21 08:18 Dose: 10 mg Documented by: Magnesium Chloride (Magnesium Chloride 64 Mg Delay Rel.Tablet) [facility] Last Admin: 01/15/21 08:13 Dose: 128 mg Documented by: Methylprednisolone (Methylprednisolone 40 Mg/Ml Vial) 40 mg IV Q8 [facility] Last Admin: 01/15/21 05:35 Dose: 40 mg Documented by: Morphine Sulfate (Morphine 2 Mg/Ml Syringe) 2 mg IV Q3H PRN PRN PRN Reason: Pain Score 6-10 Last Admin: 01/15/21 11:06 Dose: 2 mg Documented by: Multivitamins (Multivitamins,Therapeutic Tablet) [facility] tablet [facility] Last Admin: 01/15/21 08:18 Dose: 1 tablet Documented by: Nitroglycerin (Nitroglycerin (Inpatient Use) 0.4 Mg Tab.Subl) 0.4 mg SL Q5M PRN PRN Reason: CARDIAC/CHEST PAIN Oxycodone HCl (Oxycodone 5 Mg Tablet) 5 mg PO Q4H PRN PRN PRN Reason: Pain Score 4-5 Pantoprazole Sodium (Pantoprazole Sodium 40 Mg Tablet) 40 mg PO BID [facility] Last Admin: 01/15/21 08:18 Dose: 40 mg Documented by: Prochlorperazine Edisylate (Prochlorperazine 10 Mg/2 Ml Vial) 5 mg IV Q4H PRN PRN PRN Reason: Breakthrough Nausea/Vomiting Last Admin: 01/15/21 02:19 Dose: 5 mg Documented by: Sodium Chloride (0.9% Saline Lock 10 Ml Syringe) 10 - 40 ml IV UD PRN PRN Reason: SALINE FLUSH Venlafaxine HCl (Venlafaxine Xr 75 Mg Capsule) 75 mg PO BID [facility] Last Admin: 01/15/21 08:17 Dose: 75 mg Documented by: Medical Necessity - Tobacco Use Smoking Status: Former smoker - Quit about 30 years Assessment/Plan All Active Problems (Last Reviewed 09/04/19 @ 15:31 by Alayna Galloway) Trigeminal trophic syndrome (Acute) Epistaxis (Acute) Acute respiratory failure with hypoxia (Acute) Pulmonary edema (Acute) Asthma exacerbation (Acute) Toe fracture, right (Acute) Ankle fracture (Acute) ACTH deficiency (Resolved) Secondary adrenal insufficiency (Resolved) Heme positive stool (Acute) Hypomagnesemia (Acute) Near syncope (Acute) Foot fracture, right (Acute) Closed right ankle fracture (Acute) ARF (acute renal failure) (Resolved) Bacteremia due to Gram-negative bacteria (Resolved) Hyperkalemia (Resolved) Left lower quadrant abdominal pain (Resolved) 1. Acute hypoxic respiratory failure, suspect multifactorial as a result of asthma exacerbation and acute heart failure with preserved ejection fraction- continue supplement oxygen to maintain O2 at above 90%. Wean as tolerated. 2. Acute asthma exacerbation-respiratory panel and Covid negative. Continue IV Solu-Medrol. Albuterol and DuoNeb aerosols. 3. Acute heart failure with preserved ejection fraction-BNP greater than 300. Chest x-ray with congestion. Echocardiogram August 2019 demonstrated an EF of 65%, indeterminate diastolic dysfunction. Repeat echo pending. Continue IV Lasix 40 mg daily. Strict I&O. Daily weight. 4. Type 2 diabetes [id number] with sliding scale insulin. Does not appear to be on home regimen. Will repeat hemoglobin A1c. 5. Chronic kidney disease stage III-appears at baseline, trend BMP. 6. History of CVA-on statin. Plavix previously discontinued due to epistaxis. 7. Hypertension-continue lisinopril, carvedilol. 8. Hypothyroidism-continue Synthroid regimen. 9. GERD-continue PPI. 10. Depression/anxiety-on duloxetine, venlafaxine, amitriptyline. DVT prophylaxis-Lovenox subcu This patient was seen by DAYTON Neri under the supervision of Dr. Camarena. <Lyle Camarena - Last Filed: 01/15/21 12:47> - Physical Exam Vitals/I&O's: Vital Signs Temp Pulse Resp BP Pulse Ox 97.6 F L 118 H 20 H 165/105 H 98 01/15/21 12:30 01/15/21 12:35 01/15/21 12:30 01/15/21 12:30 01/15/21 12:30 Oxygen Flow Rate (L/min) 2 Oxygen Delivery Method Nasal Cannula Weight: 104.6 kg Body Mass Index (BMI) 37.0 Finger Stick Blood Glucose 154 Intake and Output for Last 24 Hours 01/13/21 01/14/21 01/15/21 23:59 23:59 23:59 Intake Total 680 / 680 Output Total 3200 / 3200 Balance -2520 / -2520 Microbiology Past 72 Hours 01/15/21 02:00 Mucosa - Nasopharyngeal Respiratory Panel (PCR) - Final 01/14/21 21:50 Mucosa - Nose SARS-CoV-2 Antigen (Rapid) - Final Laboratory Results 01/14/21 22:05: WBC 10.3, RBC 4.25, Hgb 12.6, Hct 39.7, MCV 93.4, MCH 29.6, MCHC 31.7 L, RDW Std Deviation 47.0 H, RDW Coeff of Lencho 13.9, Plt Count 447, MPV 9.8, Immature Gran % (Auto) 0.600, Neut % (Auto) 62.4, Lymph % (Auto) 27.7, Will % (Auto) 3.3, Eos % (Auto) 5.2 H, Baso % (Auto) 0.8, Absolute Neuts (auto) 6.4, Absolute Lymphs (auto) 2.84, Nucleated RBC % 0 01/14/21 22:05: PT 12.2, INR 1.0, APTT 29.2 01/14/21 22:05: Sodium 138, Potassium 4.6, Chloride 102, Carbon Dioxide 29.0, Anion Gap 7, BUN 13, Creatinine 1.22 H, Estim Creat Clear Calc 47.69, Est GFR (MDRD) Af Amer 58 L, Est GFR (MDRD) Non-Af 48 L, BUN/Creatinine Ratio 10.7, Glucose 187 H, Calcium 9.7, Troponin I < 0.015 01/14/21 22:05: Lactic Acid 1.9 01/14/21 22:05: B-Natriuretic Peptide 367.8 H 01/14/21 22:05: Specimen Type ART, Sample Site L Radial, pH 7.40, Bicarbonate Actual 23.2, Total CO2 24, Base Excess -2, O2 Saturation 100 H, O2 % 50, ABG pCO2 37.9, ABG pO2 183 H, Juan Test Positive, Respiration Rate 12, O2 Delivery Device BiPAP, POC PEEP 8, POC Pressure Suppt 8 01/15/21 04:10: Sodium 136, Potassium 3.9, Chloride 98, Carbon Dioxide 26.0, Anion Gap 12, BUN 14, Creatinine 1.38 H, Estim Creat Clear Calc 42.16, Est GFR (MDRD) Af Amer 50 L, Est GFR (MDRD) Non-Af 41 L, BUN/Creatinine Ratio 10.1, Glucose 195 H, Calcium 10.2 H, Magnesium 1.7, TSH 0.24 L 01/15/21 04:14: WBC 17.2 H, RBC 4.71, Hgb 13.7, Hct 44.7, MCV 94.9, MCH 29.1, MCHC 30.6 L, RDW Std Deviation 47.8 H, RDW Coeff of Lencho 13.9, Plt Count 346, MPV 9.8, Immature Gran % (Auto) 1.000 H, Neut % (Auto) 93.4 H, Lymph % (Auto) 3.9 L, Will % (Auto) 1.3, Eos % (Auto) 0.1, Baso % (Auto) 0.3, Absolute Neuts (auto) 16.1 H, Absolute Lymphs (auto) 0.68 L, Nucleated RBC % 0 01/15/21 04:14: Troponin I < 0.015 01/15/21 04:14: Hemoglobin A1c Pending 01/15/21 06:41: POC Glucose 197 H 01/15/21 07:30: Troponin I < 0.015 01/15/21 10:30: Troponin I < 0.015 01/15/21 10:30: Free T4 1.48 H, Free T3 pg/dL 2.6 01/15/21 10:54: POC Glucose 252 H Current Medications Acetaminophen (Acetaminophen 325 Mg Tablet) 650 mg PO Q6H PRN PRN PRN Reason: Pain Score 1-10/Temp > 100.7 F Acyclovir (Acyclovir 200 Mg Capsule) 400 mg PO BID [facility] Last Admin: 01/15/21 08:18 Dose: 400 mg Documented by: Al Hydroxide/Mg Hydroxide (Mag Hydrox/Al Hydrox/Simeth 30 Ml Udc) 30 ml PO Q6H PRN PRN PRN Reason: Gastric Burning Albuterol Sulfate (Albuterol 2.5 Mg/3 Ml Vial.Neb.) 2.5 mg INHALATION Q2H PRN PRN PRN Reason: SOB/Wheezing Albuterol/Ipratropium (Ipratropium/Albuterol Sulfate 3 Ml Ampul.Neb) 3 ml INHALATION Q4H.RT [facility] Last Admin: 01/15/21 11:12 Dose: 3 ml Documented by: Alendronate Sodium (Alendronate Sodium 70 Mg Tablet) 70 mg PO Q7D@0700 [facility] Amitriptyline HCl (Amitriptyline 25 Mg Tablet) 25 mg PO QHS [facility] Ascorbic Acid (Ascorbic Acid 500 Mg Tablet) 500 mg PO DAILY [facility] Last Admin: 01/15/21 08:18 Dose: 500 mg Documented by: Atorvastatin Calcium (Atorvastatin Calcium 40 Mg Tablet) 40 mg PO QHS [facility] Calcium/Vitamin D (Calcium Carb/Vitamin D 1 Tablet Tablet) 1 tablet PO DAILYCM [facility] Last Admin: 01/15/21 08:16 Dose: 1 tablet Documented by: Carvedilol (Carvedilol 25 Mg Tablet) 25 mg PO BID [facility] Last Admin: 01/15/21 08:14 Dose: 25 mg Documented by: Dextrose (Dextrose 50%-Water 25 Gm/50 Ml Disp.Syrin) 0 gm IV X1 PRN; Protocol PRN Reason: Hypoglycemia Dicyclomine HCl (Dicyclomine 10 Mg Capsule) 20 mg PO TIDAC [facility] Last Admin: 01/15/21 10:56 Dose: 20 mg Documented by: Duloxetine HCl (Duloxetine Hcl 60 Mg Capsule) 60 mg PO BID [facility] Last Admin: 01/15/21 08:17 Dose: 60 mg Documented by: Enoxaparin Sodium (Enoxaparin 40 Mg/0.4 Ml Syringe) 40 mg SC DAILY [facility] Last Admin: 01/15/21 08:17 Dose: 40 mg Documented by: Ferrous Sulfate (Ferrous Sulfate 325 Mg Tablet) 325 mg PO DAILY@1200 [facility] Last Admin: 01/15/21 10:56 Dose: 325 mg Documented by: Furosemide (Furosemide 40 Mg/4 Ml Vial) 40 mg IV DAILY [facility] Last Admin: 01/15/21 08:25 Dose: 40 mg Documented by: Glucagon (Glucagon 1 Mg/Ml Syringe) 1 mg IM .X1 PRN PRN Reason: Hypoglycemia Guaifenesin (Guaifenesin 1,200 Mg Tablet) 1,200 mg PO BID [facility] Last Admin: 01/15/21 08:17 Dose: 1,200 mg Documented by: Hydralazine HCl (Hydralazine 20 Mg/Ml Vial) 10 mg IV Q4H PRN PRN PRN Reason: SBP>180 Insulin Glargine (Insulin Glargine 100 Units/Ml Pen) 10 units SC BREAKFAST [facility] Last Admin: 01/15/21 08:24 Dose: 10 units Documented by: Insulin Human Lispro (Insulin Lispro 100 Unit/Ml Insuln.Pen) 0 unit SC ACHS [facility]; Protocol Last Admin: 01/15/21 10:55 Dose: 4 units Documented by: Levothyroxine Sodium (Levothyroxine 88 Mcg Tablet) 88 mcg PO DAILY@0600 [facility] Last Admin: 01/15/21 05:35 Dose: 88 mcg Documented by: Lisinopril (Lisinopril 20 Mg Tablet) 20 mg PO DAILY [facility] Last Admin: 01/15/21 08:15 Dose: 20 mg Documented by: Loratadine (Loratadine 10 Mg Tablet) 10 mg PO DAILY [facility] Last Admin: 01/15/21 08:18 Dose: 10 mg Documented by: Magnesium Chloride (Magnesium Chloride 64 Mg Delay Rel.Tablet) 128 [facility] Last Admin: 01/15/21 08:13 Dose: 128 mg Documented by: Methylprednisolone (Methylprednisolone 40 Mg/Ml Vial) 40 mg IV Q8 [facility] Last Admin: 01/15/21 05:35 Dose: 40 mg Documented by: Morphine Sulfate (Morphine 2 Mg/Ml Syringe) 2 mg IV Q3H PRN PRN PRN Reason: Pain Score 6-10 Last Admin: 01/15/21 11:06 Dose: 2 mg Documented by: Multivitamins (Multivitamins,Therapeutic Tablet) [facility] tablet [facility] Last Admin: 01/15/21 08:18 Dose: 1 tablet Documented by: Nitroglycerin (Nitroglycerin (Inpatient Use) 0.4 Mg Tab.Subl) 0.4 mg SL Q5M PRN PRN Reason: CARDIAC/CHEST PAIN Oxycodone HCl (Oxycodone 5 Mg Tablet) 5 mg PO Q4H PRN PRN PRN Reason: Pain Score 4-5 Pantoprazole Sodium (Pantoprazole Sodium 40 Mg Tablet) 40 mg PO BID [facility] Last Admin: 01/15/21 08:18 Dose: 40 mg Documented by: Prochlorperazine Edisylate (Prochlorperazine 10 Mg/2 Ml Vial) 5 mg IV Q4H PRN PRN PRN Reason: Breakthrough Nausea/Vomiting Last Admin: 01/15/21 02:19 Dose: 5 mg Documented by: Sodium Chloride (0.9% Saline Lock 10 Ml Syringe) 10 - 40 ml IV UD PRN PRN Reason: SALINE FLUSH Venlafaxine HCl (Venlafaxine Xr 75 Mg Capsule) 75 mg PO BID [facility] Last Admin: 01/15/21 08:17 Dose: 75 mg Documented by: Assessment/Plan This patient was seen in conjunction with DAYTON Neri . I have independently interviewed and examined the patient and reviewed pertinent historical, laboratory, and other data. Please refer to DAYTON Neri note for details of this patient's presentation, findings, and recommendations. I have reviewed DAYTON Neri note and concur with documented findings. In brief, patient is a 60-year-old lady who presented with respiratory distress and nasal congestion. An assessment of acute bronchitis made admitted to regular nursing floor for further management Physical Examination: GENERAL: cooperative HEENT: Atraumatic; EYES; Anicteric, Normal Conjunctiva NECK; supple, normal thyroid, RESPIRATORY: Diminished to auscultation CARDIOVASCULAR: Regular S1 S2, GI: soft, normoactive bowel sounds, : No Renal angle tenderness; EXTREMITIES: No edema, no clubbing, MUSCULOSKELETAL: no muscle waisting PSYCH; Flat affect Assessment: 1. Acute hypoxic respiratory failure 2. Acute asthma exacerbation 3. Acute infectious bronchitis 4. Hypothyroidism 5. Diabetes mellitus type 2 6. Previous history of CVA 7. Chronic kidney disease stage III 8. Acute on chronic congestive heart failure with preserved ejection fraction 9. GERD 10. Obesity with BMI of 36 11. Depression with anxiety 12 DVT prophylaxis?Lovenox Recommendations: 1. I have discussed the results of my overview and impressions with the patient 2. Options for management were reviewed Inpatient E&M: [id number] Subs Hosp L2
[2021-01-15 12:31] LABS: Bedside Glucose 252 mg/dL (70-110)
[2021-01-15] MEDS: Metoprolol Tartrate 5 MG/5 ML Vial IV ×3 (12:35→13:01)
[2021-01-15 13:49] LABS: Hemoglobin A1c 5.7 % (3.8-5.6)
[2021-01-15] MEDS: hydrALAZINE 20 MG/ML Vial 10 MG IV (13:49)
[2021-01-15 16:56] LABS: Bedside Glucose 226 mg/dL (70-110)
--- NOTE | 2021-01-15 17:12 | CM.UR ---
RN CM Assessment Introduced role of RN CM to patient.? Patient is alert, oriented and able?to participate in RN CM Assessment. ?Care providers, pharmacy, and demographics verified. Presentation: shortness of breath Admit Dx: resp failure w/hypoxia Re-Admit: no Barriers/Issues: none PCP: Dr. Torres Specialists: [facility] was seeing Dr. Juarez (ENT) but he has since discharged her and she only needs to come back as needed. Preferred Pharmacy: [facility] for immediate needs and [facility] for intermediate meds. Insurance: [facility] Rx Benefit:? Yes, no copays at this time. states she did have small ones previously but none since beginning of year. ?LNOK: sisterDee LW/HPOA: yes on file. Sister Dee is HCPOA Living Arrangements:? Lives alone in 1 story apt with no steps to get inside. ADL?s: States mostly independent at home. States does have waiver aide 2x a week for 3 hours from [place]. Transportation: States may need a ride when discharged depending on whether or not anyone is available. DME: walker, wheelchair, medical alert button, raised toilet seat, grab bars, tub bench and lift chair. HHC: States did have some home PT in past but doesn't remember the company. SNF: [facility] in past. Goal: Home with waiver aide resuming. DC PLAN: Home, NN at this time. Had been on oxygen earlier today but have been weaned off of it at this time. 94% on room air. Has no preference if O2 is needed. Alerted patient that case management will remain available should any needs arise. Verb understanding. Matias Ren RN, CCM.
[2021-01-15] MEDS: dilTIAZem 25 MG/5 ML Vial 20 MG IV BOLUS (18:03)
[2021-01-15] MEDS: Acetaminophen 325 MG Tablet 650 MG PO (18:33)
[2021-01-15 19:32] LABS: D-Dimer Quantitative (DVT/PE) 1.67 FEU/ug/m (0.27-0.49)
--- NOTE | 2021-01-15 19:38 | CT_ITS ---
STUDY: CTA CHEST REASON FOR EXAM: Female, 60 years old. Elevated D-dimer, suspected PE RADIATION DOSAGE (If Supplied By Facility): CTDIvol = ( 17.94 ) mGy, DLP = ( 522.04 ) mGycm TECHNIQUE: The examination was performed with the intravenous administration of IV 100mL [id number]. Post-processing of the angiographic images was performed, with multiplanar reformation and 3D reconstruction. Individualized dose optimization techniques were used for this CT. COMPARISON: 02/10/2018. FINDINGS: There is limited enhancement of the main pulmonary artery and right and left pulmonary arteries. There is limited enhancement of the bilateral peripheral pulmonary arteries. Specifically, most of the contrast is seen in the left brachiocephalic vein and SVC, and the aorta is enhanced as much as the pulmonary arteries. This indicates a much too broad contrast bolus with improper timing. Pulmonary emboli cannot be excluded beyond the pulmonary trunk. Normal thoracic aorta and visualized great vessels. There is no demonstrated aortic dissection. Normal heart and pericardium. There are calcifications of the coronary arteries. Normal mediastinum. Normal hilar regions. Normal visualized trachea and bronchi. The lungs are well expanded. Normal pulmonary parenchyma. Normal pleura. Normal chest wall structures. There are degenerative changes of thoracic spine. Normal visualized upper abdomen. CT/CTA Chest W/WO Contrast IMPRESSION: Technically inadequate exam for confirming or excluding pulmonary emboli as indicated above. Improper bolus and timing. No acute chest disease. Electronically Signed: David Weiner MD at 21:30 EST , Service support ,
--- NOTE | 2021-01-15 19:44 | PCM.HOSP.N ---
Hospitalist Note D-dimer elevated, will change temporarily to therapeutic lovenox and request CTPA stat.
--- NOTE | 2021-01-15 20:12 | NURSING ---
PT RETURNED FROM CT C/O FLUTTERING IN HER HEART AND RIGHT SIDED CHEST PAIN WITH DEEP INSPIRATION WITH RADIATION TO HER RIGHT SHOULDER. 98% ON RA, 161/100, HR-110
--- NOTE | 2021-01-15 20:31 | NURSING ---
MORPHINE 2 MG IV GIVEN FOR RIGHT SIDED CHEST & R SHOULDER DISCOMFORT & HEADACHE. CT CHEST PENDING. WILL CONTINUE TO MONITOR.
[2021-01-15] MEDS: Atorvastatin Calcium 40 MG Tablet PO (21:21)
[2021-01-15] MEDS: Amitriptyline 25 MG Tablet PO (21:21)
--- NOTE | 2021-01-15 22:08 | PCM.HOSP.N ---
Hospitalist Note Patient has sinus tachycardia, admitted with 140/min but I think probably from asthma exacerbation, interstitial edema and coupled with her anxiety personality. In evening, D-dimer was elevated therefore CT angiogram chest was done patient's modified sole criteria is 1.51 L for sinus tachycardia. Patient does not have history of DVT or PE. Patient is not immobilized. Overall as per modified Wells criteria risk is low for DVT and PE. She was moving good before admission. Patient had severe recurrent epistaxis from bilateral nose and was admitted between 10/19?10 21 2020 for which patient required ENT evaluation nasal packing. During that time her hospital was complicated sinus tachycardia. Patient also history of a stroke and was on Plavix that was taken off in October 2020 when she had a severe epistaxis. Therefore, we will keep the Lovenox 40 g subcu daily prophylaxis dose. Xanax 0.25 mg 3 times daily as needed for anxiety. The CT scan result was discussed with the patient CT scan is inconclusive because timing of the contrast bolus was not right. Clinical Impression(s) from Imaging Studies Chest X-Ray 01/14/21 22:18 IMPRESSION: Diffuse interstitial prominence that was not present previously. Atelectasis or infiltrate may exist in the right lung base. Chest CTA 01/15/21 19:38 IMPRESSION: Technically inadequate exam for confirming or excluding pulmonary emboli as indicated above. Improper bolus and timing. No acute chest disease.
[2021-01-15] MEDS: ALPRAZolam 0.25 MG Tablet PO (22:59)
[2021-01-15 23:10] LABS: Bedside Glucose 239 mg/dL (70-110)
[2021-01-16] VITALS (17 sets, daily range): BP systolic 137–169; BP diastolic 85–109; PULSE 102–150; RESP 15–22; TEMP 36.6–37.3; O2SAT 92–100
[2021-01-16] MEDS: Morphine 2 MG/ML Syringe IV ×2 (03:47→15:47)
[2021-01-16] MEDS: 0.9% Saline Lock 10 ML Syringe IV ×4 (03:48→18:23)
--- NOTE | 2021-01-16 06:46 | NURSING ---
pt c/o sharp right sided back pain, diaphoretic, & anxious. ekg done and stach noted, HR increased from 120-140's. placed on 3l n/c for comfort. 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
[2021-01-16] MEDS: LORazepam 2 MG/ML Syringe 0.5 MG IV (06:50)
--- NOTE | 2021-01-16 06:54 | PCM.RRT.NO ---
Rapid Response Note Rapid response was called as patient heart rate was 134, patient breathing deep, anxious and seems panic attack. Patient also complained of right posterior lateral chest pain and states it happened suddenly. Earlier patient was sent for CTPA but timing of the contrast bolus was not right therefore study was inconclusive. Blood pressure, pulse ox is normal Ativan 0.5 mg IV ordered and reevaluate. Chest x-ray and KUB x-ray ordered. If patient is more stable, can evaluate further with VQ scan to rule out PE. Patient Problems: Active and Suspected Problems (Last Reviewed 09/04/19 @ 15:31 by Alayna Galloway) Trigeminal trophic syndrome (Acute) Epistaxis (Acute) Acute respiratory failure with hypoxia (Acute) Pulmonary edema (Acute) Asthma exacerbation (Acute) Toe fracture, right (Acute) multiple toes Ankle fracture (Acute) R Heme positive stool (Acute) Hypomagnesemia (Acute) Near syncope (Acute) Foot fracture, right (Acute) Closed right ankle fracture (Acute) - Physical Exam Vitals/I&O's: Vital Signs Temp Pulse Resp BP Pulse Ox 99.0 F 126 H 15 137/105 H 93 01/16/21 03:39 01/16/21 06:35 01/16/21 03:39 01/16/21 03:39 01/16/21 04:00 Oxygen Flow Rate (L/min) 2 Oxygen Delivery Method Room Air Weight: 230 lb 2.601 oz Body Mass Index (BMI) 37.0 Finger Stick Blood Glucose 154 Intake and Output for Last 24 Hours 01/14/21 01/15/21 01/17/21 23:59 23:59 00:59 Intake Total 1280 / 1530 250 / 250 Output Total 3875 / 4575 700 / 700 Balance -2595 / -3045 -450 / -450 Microbiology Past 72 Hours 01/15/21 02:00 Mucosa - Nasopharyngeal Respiratory Panel (PCR) - Final 01/14/21 21:50 Mucosa - Nose SARS-CoV-2 Antigen (Rapid) - Final Laboratory Results 01/15/21 04:14: Hemoglobin A1c 5.7 H 01/15/21 06:41: POC Glucose 197 H 01/15/21 07:30: Troponin I < 0.015 01/15/21 10:30: Troponin I < 0.015 01/15/21 10:30: Free T4 1.48 H, Free T3 pg/dL 2.6 01/15/21 10:54: POC Glucose 252 H 01/15/21 16:41: POC Glucose 226 H 01/15/21 18:16: D-Dimer Quant (PE/DVT) 1.67 H* 01/15/21 23:02: POC Glucose 239 H 01/16/21 06:35: Sodium Pending, Potassium Pending, Chloride Pending, Carbon Dioxide Pending, Anion Gap Pending, BUN Pending, Creatinine Pending, Est GFR (MDRD) Af Amer Pending, Est GFR (MDRD) Non-Af Pending, BUN/Creatinine Ratio Pending, Glucose Pending, Calcium Pending Current Medications Acetaminophen (Acetaminophen 325 Mg Tablet) 650 mg PO Q6H PRN PRN PRN Reason: Pain Score 1-10/Temp > 100.7 F Last Admin: 01/15/21 18:33 Dose: 650 mg Documented by: Acyclovir (Acyclovir 200 Mg Capsule) 400 mg PO BID COUNTS INCLUDE 234 BEDS AT THE [facility] Last Admin: 01/15/21 21:21 Dose: 400 mg Documented by: Al Hydroxide/Mg Hydroxide (Mag Hydrox/Al Hydrox/Simeth 30 Ml Udc) 30 ml PO Q6H PRN PRN PRN Reason: Gastric Burning Albuterol Sulfate (Albuterol 2.5 Mg/3 Ml Vial.Neb.) 2.5 mg INHALATION Q2H PRN PRN PRN Reason: SOB/Wheezing Alendronate Sodium (Alendronate Sodium 70 Mg Tablet) 70 mg PO Q7D@0700 COUNTS INCLUDE 234 BEDS AT THE [facility] Alprazolam (Alprazolam 0.25 Mg Tablet) 0.25 mg PO TID PRN PRN PRN Reason: ANXIETY Last Admin: 01/15/21 22:59 Dose: 0.25 mg Documented by: Amitriptyline HCl (Amitriptyline 25 Mg Tablet) 25 mg PO QHS COUNTS INCLUDE 234 BEDS AT THE [facility] Last Admin: 01/15/21 21:21 Dose: 25 mg Documented by: Ascorbic Acid (Ascorbic Acid 500 Mg Tablet) 500 mg PO DAILY COUNTS INCLUDE 234 BEDS AT THE [facility] Last Admin: 01/15/21 08:18 Dose: 500 mg Documented by: Atorvastatin Calcium (Atorvastatin Calcium 40 Mg Tablet) 40 mg PO QHS COUNTS INCLUDE 234 BEDS AT THE [facility] Last Admin: 01/15/21 21:21 Dose: 40 mg Documented by: Calcium/Vitamin D (Calcium Carb/Vitamin D 1 Tablet Tablet) [facility] Last Admin: 01/15/21 08:16 Dose: 1 tablet Documented by: Carvedilol (Carvedilol 25 Mg Tablet) 25 mg PO BID COUNTS INCLUDE 234 BEDS AT THE [facility] Last Admin: 01/15/21 21:22 Dose: 25 mg Documented by: Dextrose (Dextrose 50%-Water 25 Gm/50 Ml Disp.Syrin) 0 gm IV X1 PRN; Protocol PRN Reason: Hypoglycemia Dicyclomine HCl (Dicyclomine 10 Mg Capsule) 20 mg PO TIDAC COUNTS INCLUDE 234 BEDS AT THE [facility] Last Admin: 01/15/21 16:43 Dose: 20 mg Documented by: Diltiazem HCl (Diltiazem 60 Mg Tablet) 60 mg PO Q6 COUNTS INCLUDE 234 BEDS AT THE [facility] Duloxetine HCl (Duloxetine Hcl 60 Mg Capsule) 60 mg PO BID COUNTS INCLUDE 234 BEDS AT THE [facility] Last Admin: 01/15/21 21:22 Dose: 60 mg Documented by: Enoxaparin Sodium (Enoxaparin 40 Mg/0.4 Ml Syringe) 40 mg SC DAILY COUNTS INCLUDE 234 BEDS AT THE [facility] Ferrous Sulfate (Ferrous Sulfate 325 Mg Tablet) 325 mg PO DAILY@1200 COUNTS INCLUDE 234 BEDS AT THE [facility] Last Admin: 01/15/21 10:56 Dose: 325 mg Documented by: Glucagon (Glucagon 1 Mg/Ml Syringe) 1 mg IM .X1 PRN PRN Reason: Hypoglycemia Guaifenesin (Guaifenesin 1,200 Mg Tablet) 1,200 mg PO BID COUNTS INCLUDE 234 BEDS AT THE [facility] Last Admin: 01/15/21 21:23 Dose: 1,200 mg Documented by: Hydralazine HCl (Hydralazine 20 Mg/Ml Vial) 10 mg IV Q4H PRN PRN PRN Reason: SBP>180 Last Admin: 01/15/21 13:49 Dose: 10 mg Documented by: Insulin Glargine (Insulin Glargine 100 Units/Ml Pen) 10 units SC BREAKFAST COUNTS INCLUDE 234 BEDS AT THE [facility] Last Admin: 01/15/21 08:24 Dose: 10 units Documented by: Insulin Human Lispro (Insulin Lispro 100 Unit/Ml Insuln.Pen) 0 unit SC ACHS COUNTS INCLUDE 234 BEDS AT THE [facility]; Protocol Last Admin: 01/15/21 23:04 Dose: 4 units Documented by: Levothyroxine Sodium (Levothyroxine 88 Mcg Tablet) 88 mcg PO DAILY@0600 COUNTS INCLUDE 234 BEDS AT THE [facility] Last Admin: 01/15/21 05:35 Dose: 88 mcg Documented by: Lisinopril (Lisinopril 20 Mg Tablet) 20 mg PO DAILY COUNTS INCLUDE 234 BEDS AT THE [facility] Last Admin: 01/15/21 08:15 Dose: 20 mg Documented by: Loratadine (Loratadine 10 Mg Tablet) 10 mg PO DAILY COUNTS INCLUDE 234 BEDS AT THE [facility] Last Admin: 01/15/21 08:18 Dose: 10 mg Documented by: Lorazepam (Lorazepam 2 Mg/Ml Syringe) 0.5 mg IV X1 ONE Stop: 01/16/21 06:52 Magnesium Chloride (Magnesium Chloride 64 Mg Delay Rel.Tablet) [facility] Last Admin: 01/15/21 08:13 Dose: 128 mg Documented by: Morphine Sulfate (Morphine 2 Mg/Ml Syringe) 2 mg IV Q3H PRN PRN PRN Reason: Pain Score 6-10 Last Admin: 01/16/21 03:47 Dose: 2 mg Documented by: Multivitamins (Multivitamins,Therapeutic Tablet) [facility] Last Admin: 01/15/21 08:18 Dose: 1 tablet Documented by: Nitroglycerin (Nitroglycerin (Inpatient Use) 0.4 Mg Tab.Subl) 0.4 mg SL Q5M PRN PRN Reason: CARDIAC/CHEST PAIN Oxycodone HCl (Oxycodone 5 Mg Tablet) 5 mg PO Q4H PRN PRN PRN Reason: Pain Score 4-5 Pantoprazole Sodium (Pantoprazole Sodium 40 Mg Tablet) 40 mg PO BID COUNTS INCLUDE 234 BEDS AT THE [facility] Last Admin: 01/15/21 21:21 Dose: 40 mg Documented by: Prednisone (Prednisone 20 Mg Tablet) 40 mg PO DAILY@0800 COUNTS INCLUDE 234 BEDS AT THE [facility] Prochlorperazine Edisylate (Prochlorperazine 10 Mg/2 Ml Vial) 5 mg IV Q4H PRN PRN PRN Reason: Breakthrough Nausea/Vomiting Last Admin: 01/15/21 02:19 Dose: 5 mg Documented by: Sodium Chloride (0.9% Saline Lock 10 Ml Syringe) 10 - 40 ml IV UD PRN PRN Reason: SALINE FLUSH Last Admin: 01/16/21 03:48 Dose: 10 ml Documented by: Venlafaxine HCl (Venlafaxine Xr 75 Mg Capsule) 75 mg PO BID COUNTS INCLUDE 234 BEDS AT THE [facility] Last Admin: 01/15/21 21:21 Dose: 75 mg Documented by: Assessment/Plan All Active Problems (Last Reviewed 09/04/19 @ 15:31 by Alayna Galloway) Trigeminal trophic syndrome (Acute) Epistaxis (Acute) Acute respiratory failure with hypoxia (Acute) Pulmonary edema (Acute) Asthma exacerbation (Acute) Toe fracture, right (Acute) Ankle fracture (Acute) ACTH deficiency (Resolved) Secondary adrenal insufficiency (Resolved) Heme positive stool (Acute) Hypomagnesemia (Acute) Near syncope (Acute) Foot fracture, right (Acute) Closed right ankle fracture (Acute) ARF (acute renal failure) (Resolved) Bacteremia due to Gram-negative bacteria (Resolved) Hyperkalemia (Resolved) Left lower quadrant abdominal pain (Resolved)
[2021-01-16 06:56] LABS: Bedside Glucose 194 mg/dL (70-110)
--- NOTE | 2021-01-16 06:56 | RAD_ITS ---
STUDY: X-RAY CHEST REASON FOR EXAM: Female, 60 years old. Right posterolateral chest pain TECHNIQUE: Single AP portable view of the chest. COMPARISON: 01/14/2021 FINDINGS: EKG leads overlie the chest The lungs are clear and expanded. There is no demonstrated pleural abnormality. Normal size heart. Normal mediastinum and jonathan. Normal visualized pulmonary arteries. Normal visualized aortic arch and descending thoracic aorta. There are diffuse degenerative changes of the visualized thoracic spine. Normal visualized ribs, clavicles, and shoulders. There is no demonstrated abnormality of the visualized soft tissue structures of the upper abdomen. RAD/Chest 1 View (Portable) IMPRESSION: No acute pulmonary process Electronically Signed: Gordon Forman MD at 10:10 EDT , Service support ,
--- NOTE | 2021-01-16 06:56 | RAD_ITS ---
STUDY: X-RAY - ABDOMEN/PELVIS REASON FOR EXAM: Female, 60 years old. Right lumbar pain, r/o kidney stone TECHNIQUE: 3 AP views COMPARISON: None. FINDINGS: Normal visualized lung bases. There is a moderate amount of colonic fecal material. There is no demonstrated free abdominal air. The visualized liver, spleen and kidneys are grossly normal in size and morphology. Normal soft tissue structures. There are diffuse degenerative changes of the visualized lumbar spine, and pelvis. Surgical hardware in the lower lumbar spine and pelvis free of complication RAD/Abdomen Single View (Portable) IMPRESSION: No acute findings, retained stool Degenerative and postsurgical changes in the lumbar spine Electronically Signed: Gordon Forman MD at 10:11 EDT , Service support ,
[2021-01-16] MEDS: dilTIAZem 60 MG Tablet PO ×2 (06:58→11:05)
[2021-01-16] MEDS: Levothyroxine 88 MCG Tablet PO (06:59)
[2021-01-16] MEDS: Dicyclomine 10 MG Capsule 20 MG PO ×3 (07:07→15:46)
--- NOTE | 2021-01-16 07:09 | NURSING ---
ativan effective. pt less anxious. 146/91, 124, 100% on 2l n/c
[2021-01-16 07:17] LABS: Anion Gap 6 (5-15); BUN 25 mg/dL (7-18); BUN/Creat Ratio 18.2 RATIO (10-20); Calcium,Total 10.9 mg/dL (8.5-10.1); Chloride 96 mmol/L (98-107); Creatinine, Serum 1.37 mg/dL (0.55-1.02); EST Glomerular Filtration Rate 42 mL/min (>60); Est Glom Filt Rate - Afr Amer 51 mL/min (>60); Estimated Creatinine Clearance 42.47 ml/min; Glucose 194 mg/dL (74-106); Potassium 4.7 mmol/L (3.5-5.1); Sodium Level 131 mmol/L (136-145)
--- NOTE | 2021-01-16 07:46 | EKG12_ITS ---
Test Reason : RAPID HR/SOB Blood Pressure : / mmHG Vent. Rate : 145 BPM Atrial Rate : 145 BPM P-R Int : 140 ms QRS Dur : 086 ms QT Int : 268 ms P-R-T Axes : 064 033 111 degrees QTc Int : 416 ms Sinus tachycardia with Fusion complexes Low voltage QRS ST & T wave abnormality, consider lateral ischemia Abnormal ECG When compared with ECG of 14-JAN-2021 22:11, MANUAL COMPARISON REQUIRED, DATA IS UNCONFIRMED Confirmed by PETRONA CASTRO, LUIS FERNANDO ([id number]), video effects editor ANASTASIA HENSON ([id number]) on 01/19/2021 10:23:03 AM Referred By: DR HARRY Confirmed By:LUIS FERNANDO RUSS MD
--- NOTE | 2021-01-16 08:32 | VDLE_ITS ---
Reason For Study: ELEVATED D DIMER RIGHT LEFT GSV is normal. GSV is normal. CFV is compressible, spontaneous, phasic, CFV is compressible, spontaneous, phasic, competent and demonstrates normal competent, and demonstrates normal augmentation. augmentation. FV is compressible, spontaneous, phasic, FV is compressible, spontaneous, phasic, competent and demonstrates normal competent and demonstrates normal augmentation. augmentation. POP V is compressible, spontaneous, phasic, POP V is compressible, spontaneous, phasic, competent and demonstrates normal competent and demonstrates normal augmentation. augmentation. T/P Trunk is compressible. T/P Trunk is compressible. PTV is compressible. PTV is compressible. RT PerV is compressible. LT PerV is compressible. Procedure Exam performed portable in patient room. A preliminary report was called and/or faxed to [facility]. Interpretation Summary No evidence for acute deep venous thrombosis bilateral lower extremities with patent and compressible bilateral great saphenous veins. Ordering Physician: Renata Rojas Referring Physician: FELIZ SCOTT Performed By: Dolores Beltre, MARIANA, RVT
[2021-01-16] MEDS: Insulin Lispro 100 UNIT/ML INSULN.PEN SC ×4 (08:34→20:56)
--- NOTE | 2021-01-16 08:34 | NM_ITS ---
CLINICAL: 60-year-old female with history of shortness of breath and elevation of the d-dimer. VENTILATION-PERFUSION LUNG SCINTIGRAPHY COMPARISON: Plain film chest radiograph 01/16/2021, CTA of the chest report 01/15/2021 FINDINGS: The patient was administered 49.0 mCi 99m Tc DTPA aerosol. The aerosol ventilation study demonstrates heterogeneous ventilation in the bilateral lung basurto without corresponding radiographic changes visualized on review of plain film chest x-ray dated 01/16/2021. Central clumping of the aerosol is identified in the bilateral hemithorax. Following the intravenous administration of 5.8 mCi of 99m Tc MAA, the pulmonary perfusion study reveals matching non-uniform perfusion in the right and left lungs correlating with the previously defined ventilation pattern. No moderate subsegmental or large segmental ventilation-perfusion mismatches are noted. There are regions of retained normal perfusion visualized. NM/Lung Scan Vent/Perf IMPRESSION: 1. VERY LOW PROBABILITY FOR PULMONARY EMBOLUS (<10%) 99m Tc DTPA aerosol ventilation / 99m Tc MAA pulmonary perfusion imaging examination, according to PIOPED II interpretive criteria with regard given to the presence of > 2 ventilation-perfusion matches without corresponding radiographic changes. (Sotsman et al, Radiology 246: 941, 2008 Sotsman et al, J Nucl Med 49: 1741, 2008). 2. Central clumping of the aerosol may be secondary to obstructive airway mechanics and or clinical tachypnea. Electronically Signed: Rick Marie DO at 11:12 EDT Tel , Service support ,
[2021-01-16] MEDS: Enoxaparin 40 MG/0.4 ML Syringe SC (08:40)
[2021-01-16] MEDS: Acyclovir 200 MG Capsule 400 MG PO ×2 (08:47→21:00)
[2021-01-16] MEDS: Loratadine 10 MG Tablet PO (08:48)
[2021-01-16] MEDS: Lisinopril 20 MG Tablet PO (08:48)
[2021-01-16] MEDS: Ascorbic Acid 500 MG Tablet PO (08:48)
[2021-01-16] MEDS: guaiFENesin 1,200 MG Tablet 1200 MG PO ×2 (08:48→20:58)
[2021-01-16] MEDS: Venlafaxine XR 75 MG Capsule PO ×2 (08:48→20:59)
[2021-01-16] MEDS: Calcium Carb/Vitamin D 1 TABLET Tablet PO (08:49)
[2021-01-16] MEDS: Multivitamins,Therapeutic Tablet 1 TABLET PO (08:49)
[2021-01-16] MEDS: Carvedilol 25 MG Tablet PO ×2 (08:50→20:59)
[2021-01-16] MEDS: DULoxetine Hcl 60 MG Capsule PO ×2 (08:50→20:58)
[2021-01-16] MEDS: Pantoprazole Sodium 40 MG Tablet PO ×2 (08:50→20:59)
[2021-01-16] MEDS: Magnesium Chloride 64 MG Delay Rel.Tablet 128 MG PO (08:51)
[2021-01-16] MEDS: Furosemide 20 MG/2 ML VIAL IV ×2 (08:54→18:23)
[2021-01-16] MEDS: predniSONE 20 MG Tablet 40 MG PO (08:54)
--- NOTE | 2021-01-16 11:03 | PCM.PROGNOTE ---
<Renata Rojas [employer] - Last Filed: 01/16/21 11:24> Patient Problems: Active and Suspected Problems (Last Reviewed 09/04/19 @ 15:31 by Alayna Galloway) Trigeminal trophic syndrome (Acute) Epistaxis (Acute) Acute respiratory failure with hypoxia (Acute) Pulmonary edema (Acute) Asthma exacerbation (Acute) Toe fracture, right (Acute) multiple toes Ankle fracture (Acute) R Heme positive stool (Acute) Hypomagnesemia (Acute) Near syncope (Acute) Foot fracture, right (Acute) Closed right ankle fracture (Acute) Subjective: Patient seen and examined. Reports bilateral flank pain early this morning which has since improved. Shortness of breath improved. Oxygen stable on room air. Denies chest pain. Discussed test results with patient including echocardiogram which demonstrated an EF of 15%. Patient states in 2009 she had an acute illness in her EF was noted to be 20% however it improved over time. - Physical Exam Vitals/I&O's: Vital Signs Temp Pulse Resp BP Pulse Ox 97.8 F 125 H 20 H 169/105 H 95 01/16/21 08:43 01/16/21 08:43 01/16/21 08:43 01/16/21 08:43 01/16/21 08:43 Oxygen Flow Rate (L/min) 3 Oxygen Delivery Method Room Air Weight: 230 lb 2.601 oz Body Mass Index (BMI) 37.0 Finger Stick Blood Glucose 154 Intake and Output for Last 24 Hours 01/14/21 01/15/21 01/17/21 23:59 23:59 00:59 Intake Total 1280 / 1530 450 / 450 Output Total 3875 / 4575 1225 / 1225 Balance -2595 / -3045 -775 / -775 General: Alert, Oriented x3, Cooperative HEENT: Atraumatic, PERRLA, EOMI, Normocephalic Neck: Supple, No JVD, Negative Carotid Bruits Lungs: Clear to auscultation, Diminished Cardiovascular: Regular Rhythm, No murmurs, Tachycardic Abdomen: Bowel Sounds Present, Soft, Non Tender, Non-Distended, Obese Extremities: No clubbing, No cyanosis, No edema, Capillary Refill Less than 3 Seconds Skin: No rashes, No breakdown Musculoskeletal: No Tenderness to Palpation of Joints or Extremities Neurological: Cranial nerves II-XII grossly intact, Neuro grossly intact Psych/Mental Status: Normal Affect, Appropriate Microbiology Past 72 Hours 01/15/21 02:00 Mucosa - Nasopharyngeal Respiratory Panel (PCR) - Final 01/14/21 21:50 Mucosa - Nose SARS-CoV-2 Antigen (Rapid) - Final Laboratory Results 01/15/21 04:14: Hemoglobin A1c 5.7 H 01/15/21 10:30: Troponin I < 0.015 01/15/21 10:30: Free T4 1.48 H, Free T3 pg/dL 2.6 01/15/21 10:54: POC Glucose 252 H 01/15/21 16:41: POC Glucose 226 H 01/15/21 18:16: D-Dimer Quant (PE/DVT) 1.67 H* 01/15/21 23:02: POC Glucose 239 H 01/16/21 06:35: Sodium 131 L, Potassium 4.7, Chloride 96 L, Carbon Dioxide 29.0, Anion Gap 6, BUN 25 H, Creatinine 1.37 H, Estim Creat Clear Calc 42.47, Est GFR (MDRD) Af Amer 51 L, Est GFR (MDRD) Non-Af 42 L, BUN/Creatinine Ratio 18.2, Glucose 194 H, Calcium 10.9 H 01/16/21 06:44: POC Glucose 194 H Current Medications Acetaminophen (Acetaminophen 325 Mg Tablet) 650 mg PO Q6H PRN PRN PRN Reason: Pain Score 1-10/Temp > 100.7 F Last Admin: 01/15/21 18:33 Dose: 650 mg Documented by: Acyclovir (Acyclovir 200 Mg Capsule) 400 mg PO BID [facility] Last Admin: 01/16/21 08:47 Dose: 400 mg Documented by: Al Hydroxide/Mg Hydroxide (Mag Hydrox/Al Hydrox/Simeth 30 Ml Udc) 30 ml PO Q6H PRN PRN PRN Reason: Gastric Burning Albuterol Sulfate (Albuterol 2.5 Mg/3 Ml Vial.Neb.) 2.5 mg INHALATION Q2H PRN PRN PRN Reason: SOB/Wheezing Alendronate Sodium (Alendronate Sodium 70 Mg Tablet) 70 mg PO Q7D@0700 [facility] Alprazolam (Alprazolam 0.25 Mg Tablet) 0.25 mg PO TID PRN PRN PRN Reason: ANXIETY Last Admin: 01/15/21 22:59 Dose: 0.25 mg Documented by: Amitriptyline HCl (Amitriptyline 25 Mg Tablet) 25 mg PO QHS [facility] Last Admin: 01/15/21 21:21 Dose: 25 mg Documented by: Ascorbic Acid (Ascorbic Acid 500 Mg Tablet) 500 mg PO DAILY [facility] Last Admin: 01/16/21 08:48 Dose: 500 mg Documented by: Atorvastatin Calcium (Atorvastatin Calcium 40 Mg Tablet) 40 mg PO QHS [facility] Last Admin: 01/15/21 21:21 Dose: 40 mg Documented by: Calcium/Vitamin D (Calcium Carb/Vitamin D 1 Tablet Tablet) [facility] Last Admin: 01/16/21 08:49 Dose: 1 tablet Documented by: Carvedilol (Carvedilol 25 Mg Tablet) 25 mg PO BID [facility] Last Admin: 01/16/21 08:50 Dose: 25 mg Documented by: Dextrose (Dextrose 50%-Water 25 Gm/50 Ml Disp.Syrin) 0 gm IV X1 PRN; Protocol PRN Reason: Hypoglycemia Dicyclomine HCl (Dicyclomine 10 Mg Capsule) 20 mg PO TIDAC [facility] Last Admin: 01/16/21 07:07 Dose: 20 mg Documented by: Diltiazem HCl (Diltiazem 60 Mg Tablet) 60 mg PO Q6 [facility] Last Admin: 01/16/21 06:58 Dose: 60 mg Documented by: Duloxetine HCl (Duloxetine Hcl 60 Mg Capsule) 60 mg PO BID [facility] Last Admin: 01/16/21 08:50 Dose: 60 mg Documented by: Enoxaparin Sodium (Enoxaparin 40 Mg/0.4 Ml Syringe) 40 mg SC DAILY [facility] Last Admin: 01/16/21 08:40 Dose: 40 mg Documented by: Ferrous Sulfate (Ferrous Sulfate 325 Mg Tablet) 325 mg PO DAILY@1200 [facility] Last Admin: 01/15/21 10:56 Dose: 325 mg Documented by: Furosemide (Furosemide 20 Mg/2 Ml Vial) 20 mg IV BID@1000,1800 [facility] Last Admin: 01/16/21 08:54 Dose: 20 mg Documented by: Glucagon (Glucagon 1 Mg/Ml Syringe) 1 mg IM .X1 PRN PRN Reason: Hypoglycemia Guaifenesin (Guaifenesin 1,200 Mg Tablet) 1,200 mg PO BID [facility] Last Admin: 01/16/21 08:48 Dose: 1,200 mg Documented by: Hydralazine HCl (Hydralazine 20 Mg/Ml Vial) 10 mg IV Q4H PRN PRN PRN Reason: SBP>180 Last Admin: 01/15/21 13:49 Dose: 10 mg Documented by: Insulin Glargine (Insulin Glargine 100 Units/Ml Pen) 10 units SC BREAKFAST [facility] Last Admin: 01/16/21 08:33 Dose: 10 units Documented by: Insulin Human Lispro (Insulin Lispro 100 Unit/Ml Insuln.Pen) 0 unit SC ACHS [facility]; Protocol Last Admin: 01/16/21 08:34 Dose: 2 units Documented by: Levothyroxine Sodium (Levothyroxine 88 Mcg Tablet) 88 mcg PO DAILY@0600 [facility] Last Admin: 01/16/21 06:59 Dose: 88 mcg Documented by: Lisinopril (Lisinopril 20 Mg Tablet) 20 mg PO DAILY [facility] Last Admin: 01/16/21 08:48 Dose: 20 mg Documented by: Loratadine (Loratadine 10 Mg Tablet) 10 mg PO DAILY [facility] Last Admin: 01/16/21 08:48 Dose: 10 mg Documented by: Magnesium Chloride (Magnesium Chloride 64 Mg Delay Rel.Tablet) [facility] Last Admin: 01/16/21 08:51 Dose: 128 mg Documented by: Morphine Sulfate (Morphine 2 Mg/Ml Syringe) 2 mg IV Q3H PRN PRN PRN Reason: Pain Score 6-10 Last Admin: 01/16/21 03:47 Dose: 2 mg Documented by: Multivitamins (Multivitamins,Therapeutic Tablet) [facility] Last Admin: 01/16/21 08:49 Dose: 1 tablet Documented by: Nitroglycerin (Nitroglycerin (Inpatient Use) 0.4 Mg Tab.Subl) 0.4 mg SL Q5M PRN PRN Reason: CARDIAC/CHEST PAIN Oxycodone HCl (Oxycodone 5 Mg Tablet) 5 mg PO Q4H PRN PRN PRN Reason: Pain Score 4-5 Pantoprazole Sodium (Pantoprazole Sodium 40 Mg Tablet) 40 mg PO BID [facility] Last Admin: 01/16/21 08:50 Dose: 40 mg Documented by: Prednisone (Prednisone 20 Mg Tablet) 40 mg PO DAILY@0800 [facility] Last Admin: 01/16/21 08:54 Dose: 40 mg Documented by: Prochlorperazine Edisylate (Prochlorperazine 10 Mg/2 Ml Vial) 5 mg IV Q4H PRN PRN PRN Reason: Breakthrough Nausea/Vomiting Last Admin: 01/15/21 02:19 Dose: 5 mg Documented by: Sodium Chloride (0.9% Saline Lock 10 Ml Syringe) 10 - 40 ml IV UD PRN PRN Reason: SALINE FLUSH Last Admin: 01/16/21 08:54 Dose: 10 ml Documented by: Venlafaxine HCl (Venlafaxine Xr 75 Mg Capsule) 75 mg PO BID [facility] Last Admin: 01/16/21 08:48 Dose: 75 mg Documented by: Medical Necessity - Tobacco Use Smoking Status: Former smoker - Quit about 30 years Assessment/Plan All Active Problems (Last Reviewed 09/04/19 @ 15:31 by Alayna Galloway) Trigeminal trophic syndrome (Acute) Epistaxis (Acute) Acute respiratory failure with hypoxia (Acute) Pulmonary edema (Acute) Asthma exacerbation (Acute) Toe fracture, right (Acute) Ankle fracture (Acute) ACTH deficiency (Resolved) Secondary adrenal insufficiency (Resolved) Heme positive stool (Acute) Hypomagnesemia (Acute) Near syncope (Acute) Foot fracture, right (Acute) Closed right ankle fracture (Acute) ARF (acute renal failure) (Resolved) Bacteremia due to Gram-negative bacteria (Resolved) Hyperkalemia (Resolved) Left lower quadrant abdominal pain (Resolved) 1. Acute hypoxic respiratory failure, suspect multifactorial as a result of asthma exacerbation and acute heart failure with reduced ejection fraction-continue supplement oxygen to maintain O2 at above 90%. Wean as tolerated. D-dimer elevated. CTA inconclusive for PE due to improper bolus/timing of contrast. VQ scan and lower extremity Dopplers pending. Continue therapeutic Lovenox pending results. 2. Acute heart failure with reduced ejection fraction-BNP greater than 300. Chest x-ray on admission with congestion. Echocardiogram August 2019 demonstrated an EF of 65%, indeterminate diastolic dysfunction. Repeat echocardiogram demonstrates an EF of 15%. Continue IV Lasix. Strict I&O. Daily weight. Cardiology consult placed. 3. Acute asthma exacerbation-Mild. Respiratory panel and Covid negative. Continue prednisone burst. Albuterol aerosol as needed. Oxygen now stable on room air. Suspect acute respiratory failure mostly secondary to #2 with flash pulmonary edema given sudden onset. 4. Type 2 diabetes [id number] with sliding scale insulin. Not on home regimen, diet controlled. Hemoglobin A1c 5.7%. 5. CAD-no history of stents. Continue carvedilol, lisinopril, statin. Not on aspirin/Plavix due to recent epistaxis. 6. Chronic kidney disease stage III-appears at baseline, trend BMP. 7. History of CVA-on statin. Plavix previously discontinued due to epistaxis. 8. Hypertension-continue lisinopril, carvedilol. 9. Hypothyroidism-continue Synthroid regimen. 10. GERD-continue PPI. 11. Depression/anxiety-on duloxetine, venlafaxine, amitriptyline. 12. History of partial colectomy secondary to recurrent diverticulitis/history of C. difficile DVT prophylaxis-Lovenox subcu This patient was seen by DAYTON Neri under the supervision of Dr. Camarena. <Lyle Camarena - Last Filed: 01/16/21 11:52> - Physical Exam Vitals/I&O's: Vital Signs Temp Pulse Resp BP Pulse Ox 97.8 F 113 H 20 H 169/105 H 95 01/16/21 08:43 01/16/21 11:04 01/16/21 08:43 01/16/21 08:43 01/16/21 08:43 Oxygen Flow Rate (L/min) 3 Oxygen Delivery Method Room Air Weight: 104.4 kg Body Mass Index (BMI) 37.0 Finger Stick Blood Glucose 154 Intake and Output for Last 24 Hours 01/14/21 01/15/21 01/17/21 23:59 23:59 00:59 Intake Total 1280 / 1530 450 / 450 Output Total 3875 / 4575 1225 / 1225 Balance -2595 / -3045 -775 / -775 Microbiology Past 72 Hours 01/15/21 02:00 Mucosa - Nasopharyngeal Respiratory Panel (PCR) - Final 01/14/21 21:50 Mucosa - Nose SARS-CoV-2 Antigen (Rapid) - Final Laboratory Results 01/15/21 04:14: Hemoglobin A1c 5.7 H 01/15/21 10:30: Troponin I < 0.015 01/15/21 10:30: Free T4 1.48 H, Free T3 pg/dL 2.6 01/15/21 10:54: POC Glucose 252 H 01/15/21 16:41: POC Glucose 226 H 01/15/21 18:16: D-Dimer Quant (PE/DVT) 1.67 H* 01/15/21 23:02: POC Glucose 239 H 01/16/21 06:35: Sodium 131 L, Potassium 4.7, Chloride 96 L, Carbon Dioxide 29.0, Anion Gap 6, BUN 25 H, Creatinine 1.37 H, Estim Creat Clear Calc 42.47, Est GFR (MDRD) Af Amer 51 L, Est GFR (MDRD) Non-Af 42 L, BUN/Creatinine Ratio 18.2, Glucose 194 H, Calcium 10.9 H 01/16/21 06:44: POC Glucose 194 H 01/16/21 11:02: POC Glucose 230 H Current Medications Acetaminophen (Acetaminophen 325 Mg Tablet) 650 mg PO Q6H PRN PRN PRN Reason: Pain Score 1-10/Temp > 100.7 F Last Admin: 01/15/21 18:33 Dose: 650 mg Documented by: Acyclovir (Acyclovir 200 Mg Capsule) 400 mg PO BID [facility] Last Admin: 01/16/21 08:47 Dose: 400 mg Documented by: Al Hydroxide/Mg Hydroxide (Mag Hydrox/Al Hydrox/Simeth 30 Ml Udc) 30 ml PO Q6H PRN PRN PRN Reason: Gastric Burning Albuterol Sulfate (Albuterol 2.5 Mg/3 Ml Vial.Neb.) 2.5 mg INHALATION Q2H PRN PRN PRN Reason: SOB/Wheezing Alendronate Sodium (Alendronate Sodium 70 Mg Tablet) 70 mg PO Q7D@0700 [facility] Alprazolam (Alprazolam 0.25 Mg Tablet) 0.25 mg PO TID PRN PRN PRN Reason: ANXIETY Last Admin: 01/15/21 22:59 Dose: 0.25 mg Documented by: Amitriptyline HCl (Amitriptyline 25 Mg Tablet) 25 mg PO QHS [facility] Last Admin: 01/15/21 21:21 Dose: 25 mg Documented by: Ascorbic Acid (Ascorbic Acid 500 Mg Tablet) 500 mg PO DAILY [facility] Last Admin: 01/16/21 08:48 Dose: 500 mg Documented by: Atorvastatin Calcium (Atorvastatin Calcium 40 Mg Tablet) 40 mg PO QHS [facility] Last Admin: 01/15/21 21:21 Dose: 40 mg Documented by: Calcium/Vitamin D (Calcium Carb/Vitamin D 1 Tablet Tablet) 1 tablet PO DAILYCM [facility] Last Admin: 01/16/21 08:49 Dose: 1 tablet Documented by: Carvedilol (Carvedilol 25 Mg Tablet) 25 mg PO BID [facility] Last Admin: 01/16/21 08:50 Dose: 25 mg Documented by: Dextrose (Dextrose 50%-Water 25 Gm/50 Ml Disp.Syrin) 0 gm IV X1 PRN; Protocol PRN Reason: Hypoglycemia Dicyclomine HCl (Dicyclomine 10 Mg Capsule) 20 mg PO TIDAC [facility] Last Admin: 01/16/21 11:05 Dose: 20 mg Documented by: Diltiazem HCl (Diltiazem 60 Mg Tablet) 60 mg PO Q6 [facility] Last Admin: 01/16/21 11:05 Dose: 60 mg Documented by: Duloxetine HCl (Duloxetine Hcl 60 Mg Capsule) 60 mg PO BID [facility] Last Admin: 01/16/21 08:50 Dose: 60 mg Documented by: Enoxaparin Sodium (Enoxaparin 100 Mg/Ml Syringe) 100 mg SC BID [facility] Ferrous Sulfate (Ferrous Sulfate 325 Mg Tablet) 325 mg PO DAILY@1200 [facility] Last Admin: 01/16/21 11:05 Dose: 325 mg Documented by: Furosemide (Furosemide 20 Mg/2 Ml Vial) 20 mg IV BID@1000,1800 [facility] Last Admin: 01/16/21 08:54 Dose: 20 mg Documented by: Glucagon (Glucagon 1 Mg/Ml Syringe) 1 mg IM .X1 PRN PRN Reason: Hypoglycemia Guaifenesin (Guaifenesin 1,200 Mg Tablet) 1,200 mg PO BID [facility] Last Admin: 01/16/21 08:48 Dose: 1,200 mg Documented by: Hydralazine HCl (Hydralazine 20 Mg/Ml Vial) 10 mg IV Q4H PRN PRN PRN Reason: SBP>180 Last Admin: 01/15/21 13:49 Dose: 10 mg Documented by: Insulin Glargine (Insulin Glargine 100 Units/Ml Pen) 10 units SC BREAKFAST [facility] Last Admin: 01/16/21 08:33 Dose: 10 units Documented by: Insulin Human Lispro (Insulin Lispro 100 Unit/Ml Insuln.Pen) 0 unit SC ACHS [facility]; Protocol Last Admin: 01/16/21 11:03 Dose: 4 units Documented by: Levothyroxine Sodium (Levothyroxine 88 Mcg Tablet) 88 mcg PO DAILY@0600 [facility] Last Admin: 01/16/21 06:59 Dose: 88 mcg Documented by: Lisinopril (Lisinopril 20 Mg Tablet) 20 mg PO DAILY [facility] Last Admin: 01/16/21 08:48 Dose: 20 mg Documented by: Loratadine (Loratadine 10 Mg Tablet) 10 mg PO DAILY [facility] Last Admin: 01/16/21 08:48 Dose: 10 mg Documented by: Magnesium Chloride (Magnesium Chloride 64 Mg Delay Rel.Tablet) [facility] Last Admin: 01/16/21 08:51 Dose: 128 mg Documented by: Morphine Sulfate (Morphine 2 Mg/Ml Syringe) 2 mg IV Q3H PRN PRN PRN Reason: Pain Score 6-10 Last Admin: 01/16/21 03:47 Dose: 2 mg Documented by: Multivitamins (Multivitamins,Therapeutic Tablet) [facility] Last Admin: 01/16/21 08:49 Dose: 1 tablet Documented by: Nitroglycerin (Nitroglycerin (Inpatient Use) 0.4 Mg Tab.Subl) 0.4 mg SL Q5M PRN PRN Reason: CARDIAC/CHEST PAIN Oxycodone HCl (Oxycodone 5 Mg Tablet) 5 mg PO Q4H PRN PRN PRN Reason: Pain Score 4-5 Pantoprazole Sodium (Pantoprazole Sodium 40 Mg Tablet) 40 mg PO BID [facility] Last Admin: 01/16/21 08:50 Dose: 40 mg Documented by: Prednisone (Prednisone 20 Mg Tablet) 40 mg PO DAILY@0800 [facility] Last Admin: 01/16/21 08:54 Dose: 40 mg Documented by: Prochlorperazine Edisylate (Prochlorperazine 10 Mg/2 Ml Vial) 5 mg IV Q4H PRN PRN PRN Reason: Breakthrough Nausea/Vomiting Last Admin: 01/15/21 02:19 Dose: 5 mg Documented by: Sodium Chloride (0.9% Saline Lock 10 Ml Syringe) 10 - 40 ml IV UD PRN PRN Reason: SALINE FLUSH Last Admin: 01/16/21 08:54 Dose: 10 ml Documented by: Venlafaxine HCl (Venlafaxine Xr 75 Mg Capsule) 75 mg PO BID [facility] Last Admin: 01/16/21 08:48 Dose: 75 mg Documented by: Assessment/Plan This patient was seen in conjunction with DAYTON Neri . I have independently interviewed and examined the patient and reviewed pertinent historical, laboratory, and other data. Please refer to DAYTON Neri note for details of this patient's presentation, findings, and recommendations. I have reviewed DAYTON Neri note and concur with documented findings. In brief, patient is a 60-year-old lady who presented with respiratory distress and nasal congestion. An assessment of acute bronchitis made admitted to regular nursing floor for further management 01/16/2021; 2D echo obtained the day prior demonstrated The estimated ejection fraction is 15 %. There is evidence of diastolic dysfunction. There is severe global hypokinesis of the left ventricle. -Cardiology consulted as a result of patient significant cardiomyopathy. CTA obtained after patient went into respiratory distress was nondiagnostic plan is to obtain VQ scan and bilateral venous duplex to rule out VTE. Physical Examination: GENERAL: cooperative HEENT: Atraumatic; EYES; Anicteric, Normal Conjunctiva NECK; supple, normal thyroid, RESPIRATORY: Diminished to auscultation CARDIOVASCULAR: Regular S1 S2, GI: soft, normoactive bowel sounds, : No Renal angle tenderness; EXTREMITIES: No edema, no clubbing, MUSCULOSKELETAL: no muscle waisting PSYCH; Flat affect Assessment: 1. Acute hypoxic respiratory failure 2. Acute asthma exacerbation 3. Acute infectious bronchitis 4. Hypothyroidism 5. Diabetes mellitus type 2 6. Previous history of CVA 7. Chronic kidney disease stage III 8. Acute on chronic congestive heart failure with preserved ejection fraction 9. GERD 10. Obesity with BMI of 36 11. Depression with anxiety 12 DVT prophylaxis?Lovenox 13. Severe cardiomyopathy Recommendations: 1. I have discussed the results of my overview and impressions with the patient 2. Options for management were reviewed Inpatient E&M: [id number] [facility]
[2021-01-16] MEDS: Ferrous Sulfate 325 MG Tablet PO (11:05)
[2021-01-16 11:11] LABS: Bedside Glucose 230 mg/dL (70-110)
--- NOTE | 2021-01-16 15:42 | PCM.CONS.C ---
Reason for Consult Date of Consultation: 01/16/21 Reason for Consultation: LV dysfunction, CHF History of Present Illness: The patient is a 60 year old F [with multiple medical problems admitted with shortness of breath. A 2D echo revealed an EF of around 15%. She had an echo in 2019 which revealed preserved EF. Patient was given Lasix and her shortness of breath has improved. She complained of bilateral flank pain this morning. Patient has history of cardiomyopathy. She states that around 2009 she had C. difficile colitis, became dehydrated and her blood pressure dropped significantly. At that time she was found to have cardiomyopathy with an EF of 20%. She was treated with Coreg and lisinopril since then. She had been transferred to [facility] at that time and had a heart cath that did not reveal significant CAD.] She says that since then her ejection fraction continues to improve and was normal in 2019. The echo from 2019 was done here and is reported to have preserved EF. Just prior to 2019 patient was having significant epistaxis and lost a lot of blood. Since then she has been having shortness of breath. Review of systems: All systems reviewed. All else is negative except that in HPI. Past Medical History Allergies/Adverse Reactions: Allergies adhesive Allergy (Verified 10/18/20 23:47) skin irritation amlodipine [From Norvasc] Allergy (Verified 10/18/20 23:47) tachycardia hydromorphone HCl [From Dilaudid] Allergy (Verified 10/18/20 23:47) Itching sulfamethoxazole [From Bactrim] Allergy (Verified 10/18/20 23:47) made my cold sore huge trimethoprim [From Bactrim] Allergy (Verified 10/18/20 23:47) made my cold sore huge Home Medications: Ambulatory Orders Medication Instructions Recorded Levothyroxine Sodium [Levoxyl] 88 mcg PO DAILY 11/17/17 Multivitamin [Multiple Vitamins] 1 ea PO DAILY 12/29/17 Pantoprazole Sodium [Protonix] 40 mg PO BID 03/29/19 Amitriptyline HCl 25 mg PO QHS 08/10/19 Alendronate Sodium [Fosamax] 70 mg PO Q7D@0700 #4 tab 08/25/19 Calcium Carb/Vitamin D [Os-Jose 1 tab PO DAILYCM tab 08/25/19 500MG + D] Magnesium Oxide [Mag-Ox 400] 400 mg PO DAILYCM #30 tab 08/25/19 rosuvastatin 20 mg tablet 20 mg PO QHS 08/25/19 sitagliptin 50 mg tablet 50 mg PO DAILY 09/04/19 venlafaxine 75 mg capsule,extended 75 mg PO BID cap 09/04/19 release 24 hr Lisinopril [Zestril] 30 mg PO DAILY 03/18/20 Hydrocodone Bitart/Apap 5-325 1 tab PO BID 09/10/20 [[place] 5/325] Ascorbic Acid [Vitamin C] 500 mg PO DAILY 10/19/20 Cetirizine HCl [Zyrtec] 10 mg PO DAILY 10/19/20 Dicyclomine HCl [Bentyl] 20 mg PO TIDAC 10/19/20 Duloxetine Hcl [Cymbalta] 60 mg PO BID 10/19/20 Valacyclovir HCl [Valacyclovir] 500 mg PO DAILY 10/19/20 Zanaflex 4 mg PO TID 10/19/20 Carvedilol [Coreg (Beta Eleni)] 25 mg PO BID #69 tab 10/21/20 Ferrous Sulfate 325 mg PO TIDCM #90 tab 10/21/20 Past Medical History (Chronic Problems): Chronic Problems (Last Reviewed 09/04/19 @ 15:31 by Alayna Galloway) Falls (Chronic) 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 History of stroke (Chronic) 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 Normochromic normocytic anemia (Chronic) etiology never identified - may be due to chronic adrenal insufficiency Hypothyroidism, secondary/tertiary (Chronic) Osteoporosis (Chronic) suspected, has not had a BMD......I suspect this is severe Debility (Chronic) Cardiomyopathy (Chronic) Stroke (Chronic) Right hemiparesis (Chronic) Gait difficulty (Chronic) Diabetes mellitus (Chronic) Irritable bowel syndrome (Chronic) Muscle spasm (Chronic) Allergic rhinitis (Chronic) GERD (gastroesophageal reflux disease) (Chronic) Herpes simplex (Chronic) Hypotension (Chronic) All BP meds discontinued Carotid artery stenosis (Chronic) Hyperlipemia (Chronic) Hypertension (Chronic) Coronary artery disease (Chronic) Diabetes mellitus, type 2 (Chronic) History of Clostridium difficile infection (Chronic) Hx of diverticulitis of colon (Chronic) Status post partial colectomy Obesity (Chronic) Chronic constipation with suspected IBS (Chronic) History of ischemic colitis (Chronic) Bilateral leg weakness (Chronic) Surgical History: cholecystectomy, total knee arthroplasty - Bilateral., tonsillectomy, - - partial colon resection due to diverticulosis. 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 - *Family History Paternal Family History: Family History (Last Reviewed 09/04/19 @ 15:31 by Alayna Galloway) Grandfather Alcoholism Grandmother Alcoholism Mother Arthritis Diverticulitis COPD (chronic obstructive pulmonary disease) Afib Father Arthritis Diabetes Myocardial infarction Heart disease Hypertension Hyperlipidemia Brother Arthritis Aunt Breast cancer Sister Arthritis Thyroid disorder Skin cancer Uncle Diabetes History Items: Diabetes, Heart Disease, - Maternal Family History: Family History (Last Reviewed 09/04/19 @ 15:31 by Alayna Galloway) Grandfather Alcoholism Grandmother Alcoholism Mother Arthritis Diverticulitis COPD (chronic obstructive pulmonary disease) Afib Father Arthritis Diabetes Myocardial infarction Heart disease Hypertension Hyperlipidemia Brother Arthritis Aunt Breast cancer Sister Arthritis Thyroid disorder Skin cancer Uncle Diabetes History Items: Heart Disease, - - osteoarthritis Smoking Status: Former smoker - Quit about 30 years Objective: Vital Signs Temp Pulse Resp BP Pulse Ox 99.1 F 102 H 20 H 156/85 H 94 01/16/21 15:41 01/16/21 15:41 01/16/21 15:41 01/16/21 15:41 01/16/21 15:41 Oxygen Flow Rate (L/min) 3 Oxygen Delivery Method Room Air Weight: 230 lb 2.601 oz Body Mass Index (BMI) 37.0 Finger Stick Blood Glucose 154 Intake and Output for Last 24 Hours 01/14/21 01/15/21 01/17/21 23:59 23:59 00:59 Intake Total 1280 / 1530 850 / 850 Output Total 3875 / 4575 1625 / 1625 Balance -2595 / -3045 -775 / -775 General: Awake, Alert, Oriented x 3 Oral: Moist Mucosa Neck: Supple Lungs: Clear to auscultation Cardiovascular: Regular Rhythm Abdomen: Obese Skin: No Rashes 01/15/21 18:16: D-Dimer Quant (PE/DVT) 1.67 H* 01/16/21 06:35: Sodium 131 L, Potassium 4.7, Chloride 96 L, Carbon Dioxide 29.0, Anion Gap 6, BUN 25 H, Creatinine 1.37 H, Est GFR (MDRD) Af Amer 51 L, Est GFR (MDRD) Non-Af 42 L, BUN/Creatinine Ratio 18.2, Glucose 194 H, Calcium 10.9 H Rhythm: EKG: ECHO: Stress Test: Cardiac Cath: PCI: CT Surgery: Holter monitor: EPS: PPM: CXR: Chest CT Scan: Assessment/Plan 1. Cardiomyopathy: Patient has prior history of nonischemic cardiomyopathy. Her EF had improved and again at this time it is depressed. She does have history of sinus tachycardia. I think will be reasonable to stop the Cardizem and continue her Coreg and lisinopril. Will be reasonable to switch Lasix to 20 mg p.o. twice daily tomorrow. With patient's history of prior cardiac catheterization and nonischemic cardiomyopathy I think will be reasonable to wait prior to proceeding with ischemic work-up. I think will be reasonable to repeat an echo in 3 months and if she has persistent LV dysfunction then we can consider coronary angiography.
[2021-01-16] MEDS: Acetaminophen 325 MG Tablet 650 MG PO (15:46)
[2021-01-16 16:55] LABS: Bedside Glucose 186 mg/dL (70-110)
[2021-01-16] MEDS: oxyCODONE 5 MG Tablet PO (20:55)
[2021-01-16] MEDS: Atorvastatin Calcium 40 MG Tablet PO (20:58)
[2021-01-16] MEDS: Amitriptyline 25 MG Tablet PO (20:59)
[2021-01-16] MEDS: Enoxaparin 100 MG/ML Syringe SC (21:01)
[2021-01-16 21:36] LABS: Bedside Glucose 244 mg/dL (70-110)
[2021-01-16] MEDS: Albuterol 2.5 MG/3 ML VIAL.NEB. INHALATION (22:00)
[2021-01-17] VITALS (8 sets, daily range): BP systolic 150–166; BP diastolic 85–97; PULSE 98–111; RESP 16–18; TEMP 36.1–37.1; O2SAT 89–97
[2021-01-17] MEDS: ALPRAZolam 0.25 MG Tablet PO (00:10)
[2021-01-17 06:01] LABS: Hematocrit 39.1 % (37-47); Hemoglobin 12.3 g/dL (12.0-15.0); Mean Corp Hgb Conc 31.5 g/dL (32-36); Mean Corpuscular Hgb 29.3 pg (27.0-32.0); Mean Corpuscular Volume 93.1 fL (81-99); Mean Platelet Vol. 9.5 fl (6.2-12.0); Platelet Count 317 K/mm3 (150-450); RBC Distribution Width CV 14.2 % (11.6-14.6); RBC Distribution Width SD 47.8 fl (35.1-43.9); White Blood Count 21.4 K/mm3 (4.4-11.0)
[2021-01-17 06:11] LABS: International Normalized Ratio 1.1; Partial Thromboplast Time 33.6 Seconds (24.1-36.2); Prothrombin Time (Protime)PT. 13.9 SECONDS (11.7-14.9)
[2021-01-17 06:23] LABS: Anion Gap 7 (5-15); BUN 35 mg/dL (7-18); BUN/Creat Ratio 24.3 RATIO (10-20); Chloride 99 mmol/L (98-107); Creatinine, Serum 1.44 mg/dL (0.55-1.02); EST Glomerular Filtration Rate 40 mL/min (>60); Est Glom Filt Rate - Afr Amer 48 mL/min (>60); Glucose 135 mg/dL (74-106); Potassium 3.5 mmol/L (3.5-5.1); Sodium Level 132 mmol/L (136-145)
[2021-01-17] MEDS: Dicyclomine 10 MG Capsule 20 MG PO ×2 (06:43→11:32)
[2021-01-17] MEDS: Levothyroxine 88 MCG Tablet PO (06:43)
[2021-01-17 06:55] LABS: Bedside Glucose 140 mg/dL (70-110)
--- NOTE | 2021-01-17 07:57 | PN.CARD_ITS ---
Subjectve: Patient seen and evaluated Objective: Vital Signs Temp Pulse Resp BP Pulse Ox 96.9 F L 106 H 16 150/85 H 95 01/17/21 03:15 01/17/21 06:56 01/17/21 03:15 01/17/21 03:15 01/17/21 03:15 Oxygen Flow Rate (L/min) 3 Oxygen Delivery Method Room Air Weight: 231 lb 4.238 oz Body Mass Index (BMI) 37.0 Finger Stick Blood Glucose 154 Intake and Output for Last 24 Hours 01/15/21 01/16/21 01/17/21 22:59 23:59 23:59 Intake Total 240 / 240 Output Total 350 / 350 Balance -110 / -110 General: Awake, Alert, Oriented x 3 HEENT: PERRL, EOMI, Sclera Non Icteric Neck: Supple, Good ROM, No Lymph Node Enlargement Lungs: Clear to auscultation Cardiovascular: Regular Rhythm, Normal S1, Normal S2, No Murmurs, No Rubs, No Gallops Vascular: No Carotid Bruits, Normal Femoral Pulses, Normal Radial Pulses, Normal Dorsalis Pedal Pulse, Normal Posterior Tibial Pulses Abdomen: Bowel Sounds Present, Soft, Non Tender, No HSM, No Organomegaly Extremities: No Cyanosis, No Clubbing, No edema Neurological: No Focal Motor or Sensory Deficit 01/17/21 05:38: WBC 21.4 H, RBC 4.20, Hgb 12.3, Hct 39.1, MCV 93.1, MCH 29.3, MCHC 31.5 L, Plt Count 317, MPV 9.5 01/17/21 05:38: PT 13.9, INR 1.1, APTT 33.6 01/17/21 05:38: Sodium 132 L, Potassium 3.5, Chloride 99, Carbon Dioxide 26.0, Anion Gap 7, BUN 35 H, Creatinine 1.44 H, Est GFR (MDRD) Af Amer 48 L, Est GFR (MDRD) Non-Af 40 L, BUN/Creatinine Ratio 24.3 H, Glucose 135 H, Calcium 10.0 Rhythm: EKG: ECHO: Stress Test: Cardiac Cath: PCI: CT Surgery: Holter monitor: EPS: PPM: CXR: Chest CT Scan: Medical Necessity - Tobacco Use Smoking Status: Former smoker - Quit about 30 years Assessment/Plan 1. Nonischemic cardiomyopathy-presumed * At this time we will continue to maximize medical therapy on the beta-sulaiman, PAMELA inhibitor, and diuretics. * Will transition to p.o. Lasix * Can be discharged later today if all other tests are noted to be unremarkable and will follow up in the office. * At some point will be considered to be on Entresto and then repeat her echocardiogram. Depending on those findings further recommendations will be made as to whether she would be a candidate for an implantable defibrillator. * * Thank you for allowing me to participate in the care of your patient. Please don't hesitate to call if any issues arise.
[2021-01-17] MEDS: Multivitamins,Therapeutic Tablet 1 TABLET PO (09:24)
[2021-01-17] MEDS: Magnesium Chloride 64 MG Delay Rel.Tablet 128 MG PO (09:24)
[2021-01-17] MEDS: Calcium Carb/Vitamin D 1 TABLET Tablet PO (09:24)
[2021-01-17] MEDS: predniSONE 20 MG Tablet 40 MG PO (09:25)
[2021-01-17] MEDS: Carvedilol 25 MG Tablet PO (09:25)
[2021-01-17] MEDS: Loratadine 10 MG Tablet PO (09:25)
[2021-01-17] MEDS: Enoxaparin 100 MG/ML Syringe SC (09:26)
[2021-01-17] MEDS: Furosemide 40 MG Tablet PO (09:26)
[2021-01-17] MEDS: Venlafaxine XR 75 MG Capsule PO (09:26)
[2021-01-17] MEDS: DULoxetine Hcl 60 MG Capsule PO (09:26)
[2021-01-17] MEDS: Ascorbic Acid 500 MG Tablet PO (09:27)
[2021-01-17] MEDS: Lisinopril 20 MG Tablet PO (09:27)
[2021-01-17] MEDS: guaiFENesin 1,200 MG Tablet 1200 MG PO (09:27)
[2021-01-17] MEDS: Pantoprazole Sodium 40 MG Tablet PO (09:27)
[2021-01-17] MEDS: Acyclovir 200 MG Capsule 400 MG PO (09:27)
--- NOTE | 2021-01-17 11:19 | PCM.DC ---
- Discharge Diagnoses Current Active Problems: Current Active and Chronic Problems (Last Reviewed 09/04/19 @ 15:31 by Alayna Galloway) Trigeminal trophic syndrome History of stroke (Chronic) 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 Normochromic normocytic anemia (Chronic) etiology never identified - may be due to chronic adrenal insufficiency Hypothyroidism, secondary/tertiary (Chronic) Osteoporosis (Chronic) suspected, has not had a BMD......I suspect this is severe Cardiomyopathy (Chronic) Diabetes mellitus (Chronic) Irritable bowel syndrome (Chronic) Carotid artery stenosis (Chronic) Hyperlipemia (Chronic) Hypertension (Chronic) Coronary artery disease (Chronic) Diabetes mellitus, type 2 (Chronic) History of Clostridium difficile infection (Chronic) Hx of diverticulitis of colon (Chronic) Status post partial colectomy Obesity (Chronic) You will use the following diet at home:: Calorie/Carbohydrate Controlled (specify 1200, 1400, etc), Cardiac Discharge Activity: Return to Normal Activity Call your doctor if you observe: Shortness of breath, Dizziness, Fainting spells, Chest pain Allergies/Adverse Reactions: Allergies adhesive Allergy (Verified 10/18/20 23:47) skin irritation amlodipine [From Norvasc] Allergy (Verified 10/18/20 23:47) tachycardia hydromorphone HCl [From Dilaudid] Allergy (Verified 10/18/20 23:47) Itching sulfamethoxazole [From Bactrim] Allergy (Verified 10/18/20 23:47) made my cold sore huge trimethoprim [From Bactrim] Allergy (Verified 10/18/20 23:47) made my cold sore huge Medications to take at Discharge Levothyroxine Sodium [Levoxyl] 88 mcg PO DAILY 11/17/17 Multivitamin [Multiple Vitamins] 1 ea PO DAILY 12/29/17 Pantoprazole Sodium [Protonix] 40 mg PO BID 03/29/19 Amitriptyline HCl 25 mg PO QHS 08/10/19 Alendronate Sodium [Fosamax] 70 mg PO Q7D@0700 #4 tab 08/25/19 Calcium Carb/Vitamin D [Os-Jose 500MG + D] 1 tab PO DAILYCM tab 08/25/19 Magnesium Oxide [Mag-Ox 400] 400 mg PO DAILYCM #30 tab 08/25/19 rosuvastatin 20 mg tablet 20 mg PO QHS 08/25/19 sitagliptin 50 mg tablet 50 mg PO DAILY 09/04/19 venlafaxine 75 mg capsule,extended release 24 hr 75 mg PO BID cap 09/04/19 Lisinopril [Zestril] 30 mg PO DAILY 03/18/20 Hydrocodone Bitart/Apap 5-325 [[place] 5/325] 1 tab PO BID 09/10/20 Ascorbic Acid [Vitamin C] 500 mg PO DAILY 10/19/20 Cetirizine HCl [Zyrtec] 10 mg PO DAILY 10/19/20 Dicyclomine HCl [Bentyl] 20 mg PO TIDAC 10/19/20 Duloxetine Hcl [Cymbalta] 60 mg PO BID 10/19/20 Valacyclovir HCl [Valacyclovir] 500 mg PO DAILY 10/19/20 Zanaflex 4 mg PO TID 10/19/20 Carvedilol [Coreg (Beta Eleni)] 25 mg PO BID #69 tab 10/21/20 Ferrous Sulfate 325 mg PO TIDCM #90 tab 10/21/20 Furosemide [Lasix] 40 mg PO BID@1000,1800 #60 tab 01/17/21 predniSONE tablet 40 mg PO DAILY@0800 #6 tab 01/17/21 The following prescriptions were given: Furosemide [Lasix] 40 mg PO BID@1000,1800 #60 tab Transmission Status: Pending to [id number] predniSONE tablet 40 mg PO DAILY@0800 #6 tab Transmission Status: Pending to [id number] Primary Care Physician: Brandon Torres DO [Primary Care Provider] - Please follow up with your Primary Care Physician in: 1 Week Test Results: Test results from this visit will be discussed in further detail at your follow-up appointment, if applicable. Please Follow Up With: Alfredo Gibson MD When: 2 Weeks, may see AG SERVICE MANAGER/PA Proposed Discharge Date: 01/17/21
--- NOTE | 2021-01-17 11:28 | DS.PCM_ITS ---
<BobRenata HOME CARE ASSOCIATE - Last Filed: 01/17/21 11:45> Discharge Date and Diagnosis - Problem List Patient Problems: Active and Suspected Problems (Last Reviewed 09/04/19 @ 15:31 by Alayna Galloway) Acute respiratory failure with hypoxia (Acute) Pulmonary edema (Acute) Asthma exacerbation (Acute) Date of Admission: 01/14/21 Date of Discharge: 01/17/21 - Primary Discharge Diagnosis Acute Problems: Active Problems (Last Reviewed 09/04/19 @ 15:31 by Alayna Galloway) 1. Acute hypoxic respiratory failure, multifactorial as a result of asthma exacerbation and acute heart failure with reduced ejection fraction 2. Acute heart failure with reduced ejection fraction/presumed nonischemic cardiomyopathy 3. Acute asthma exacerbation-Mild. 4. Type 2 diabetes mellitus 5. CAD 6. Chronic kidney disease stage III 7. History of CVA 8. Hypertension 9. Hypothyroidism 10. GERD 11. Depression/anxiety 12. History of partial colectomy secondary to recurrent diverticulitis/history of C. 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 History of stroke (Chronic) 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 Normochromic normocytic anemia (Chronic) etiology never identified - may be due to chronic adrenal insufficiency Hypothyroidism, secondary/tertiary (Chronic) Osteoporosis (Chronic) suspected, has not had a BMD......I suspect this is severe Debility (Chronic) Cardiomyopathy (Chronic) Stroke (Chronic) Right hemiparesis (Chronic) Gait difficulty (Chronic) Diabetes mellitus (Chronic) Irritable bowel syndrome (Chronic) Muscle spasm (Chronic) Allergic rhinitis (Chronic) GERD (gastroesophageal reflux disease) (Chronic) Herpes simplex (Chronic) Hypotension (Chronic) All BP meds discontinued Carotid artery stenosis (Chronic) Hyperlipemia (Chronic) Hypertension (Chronic) Coronary artery disease (Chronic) Diabetes mellitus, type 2 (Chronic) History of Clostridium difficile infection (Chronic) Hx of diverticulitis of colon (Chronic) Status post partial colectomy Obesity (Chronic) Chronic constipation with suspected IBS (Chronic) History of ischemic colitis (Chronic) Bilateral leg weakness (Chronic) Hospital Course and Treatment Imaging Results: Diagnostic Data Chest CTA 01/15/21 19:38 IMPRESSION: Technically inadequate exam for confirming or excluding pulmonary emboli as indicated above. Improper bolus and timing. No acute chest disease. Electronically Signed: David Weiner MD at 21:30 EST , Service support , Chest X-Ray 01/16/21 06:56 IMPRESSION: No acute pulmonary process Electronically Signed: Gordon Forman MD at 10:10 EDT , Service support , KUB X-Ray 01/16/21 06:56 IMPRESSION: No acute findings, retained stool Degenerative and postsurgical changes in the lumbar spine Electronically Signed: Gordon Forman MD at 10:11 EDT , Service support , Lung Scan-VQ NM 01/16/21 08:34 IMPRESSION: 1. VERY LOW PROBABILITY FOR PULMONARY EMBOLUS (<10%) 99m Tc DTPA aerosol ventilation / 99m Tc MAA pulmonary perfusion imaging examination, according to PIOPED II interpretive criteria with regard given to the presence of > 2 ventilation-perfusion matches without corresponding radiographic changes. (Sotsman et al, Radiology 246: 941, 2008 Sotsman et al, J Nucl Med 49: 1741, 2008). 2. Central clumping of the aerosol may be secondary to obstructive airway mechanics and or clinical tachypnea. Electronically Signed: Rick Marie DO at 11:12 EDT Tel , Service support , Dr. Gibson- Cardiology Operations: None Procedures: 2-D Echocardiogram Summary of Care Provided: The patient is a 60 year old F admitted 01/14/2021 due to sudden respiratory distress. 1. Acute hypoxic respiratory failure, suspect multifactorial as a result of asthma exacerbation and acute heart failure with reduced ejection fraction- oxygen stable on room air. Ambulatory pulse ox completed and patient did not require further supplemental oxygen. D-dimer elevated, VQ scan and lower extremity Dopplers negative. 2. Acute heart failure with reduced ejection fraction/presumed nonischemic cardiomyopathy-BNP greater than 300. Chest x-ray on admission with congestion. Echocardiogram August 2019 demonstrated an EF of 65%, indeterminate diastolic dysfunction. Repeat echocardiogram demonstrates an EF of 15%. Cardiology consulted. Patient has a history of nonischemic cardiomyopathy. Plan for medical management at this time with carvedilol, lisinopril. Lasix 40 mg twice daily added. Follow-up with cardiology for repeat echo and further management. 3. Acute asthma exacerbation-Mild. Respiratory panel and Covid negative. Continue prednisone to complete burst. Oxygen now stable on room air. Suspect acute respiratory failure mostly secondary to #2 with flash pulmonary edema given sudden onset. 4. Type 2 diabetes mellitus-Hemoglobin A1c 5.7%. Continue home oral regimen. 5. CAD-no history of stents. Continue carvedilol, lisinopril, statin. Not on aspirin/Plavix due to recent epistaxis. 6. Chronic kidney disease stage III-appears at baseline, trend BMP. 7. History of CVA-on statin. Plavix previously discontinued due to epistaxis. 8. Hypertension-continue lisinopril, carvedilol. 9. Hypothyroidism-continue Synthroid regimen. 10. GERD-continue PPI. 11. Depression/anxiety-on duloxetine, venlafaxine, amitriptyline. 12. History of partial colectomy secondary to recurrent diverticulitis/history of C. difficile General: Alert, Oriented x3, Cooperative HEENT: Atraumatic, PERRLA, EOMI, Normocephalic Neck: Supple, No JVD, Negative Carotid Bruits Lungs: Clear to auscultation, Diminished Cardiovascular: Regular Rhythm, No murmurs, Tachycardic improved Abdomen: Bowel Sounds Present, Soft, Non Tender, Non-Distended, Obese Extremities: No clubbing, No cyanosis, No edema, Capillary Refill Less than 3 Seconds Skin: No rashes, No breakdown Musculoskeletal: No Tenderness to Palpation of Joints or Extremities Neurological: Cranial nerves II-XII grossly intact, Neuro grossly intact Psych/Mental Status: Normal Affect, Appropriate Patient seen and examined prior to discharge. Physical assessment as noted above. Patient is stable for discharge with follow up recommendations as noted above. This patient was seen by DAYTON Neri under the supervision of Dr. Foy. Patient Problems: Active and Suspected Problems (Last Reviewed 09/04/19 @ 15:31 by Alayna Galloway) Acute respiratory failure with hypoxia (Acute) Pulmonary edema (Acute) Asthma exacerbation (Acute) - Physical Exam Vitals/I&O's: Vital Signs Temp Pulse Resp BP Pulse Ox 97.5 F L 104 H 18 166/97 H 97 01/17/21 09:15 01/17/21 09:15 01/17/21 09:15 01/17/21 09:15 01/17/21 09:15 Oxygen Flow Rate (L/min) 3 Oxygen Delivery Method Room Air Weight: 231 lb 4.238 oz Body Mass Index (BMI) 37.0 Finger Stick Blood Glucose 154 Intake and Output for Last 24 Hours 01/15/21 01/16/21 01/17/21 22:59 23:59 23:59 Intake Total 240 / 240 Output Total 350 / 350 Balance -110 / -110 Microbiology Past 72 Hours 01/14/21 22:40 Blood Culture (Wb) #2 - Anticubital Left Blood Culture - Preliminary No growth in 48 hours. 01/14/21 22:05 Blood Culture (Wb) - Anticubital Left Blood Culture - Preliminary No growth in 48 hours. 01/15/21 02:00 Mucosa - Nasopharyngeal Respiratory Panel (PCR) - Final 01/14/21 21:50 Mucosa - Nose SARS-CoV-2 Antigen (Rapid) - Final Laboratory Results 01/16/21 16:33: POC Glucose 186 H 01/16/21 20:55: POC Glucose 244 H 01/17/21 05:38: WBC 21.4 H, RBC 4.20, Hgb 12.3, Hct 39.1, MCV 93.1, MCH 29.3, MCHC 31.5 L, RDW Std Deviation 47.8 H, RDW Coeff of Lencho 14.2, Plt Count 317, MPV 9.5 01/17/21 05:38: PT 13.9, INR 1.1, APTT 33.6 01/17/21 05:38: Sodium 132 L, Potassium 3.5, Chloride 99, Carbon Dioxide 26.0, Anion Gap 7, BUN 35 H, Creatinine 1.44 H, Estim Creat Clear Calc 40.40, Est GFR (MDRD) Af Amer 48 L, Est GFR (MDRD) Non-Af 40 L, BUN/Creatinine Ratio 24.3 H, Glucose 135 H, Calcium 10.0 01/17/21 06:45: POC Glucose 140 H Current Medications Acetaminophen (Acetaminophen 325 Mg Tablet) 650 mg PO Q6H PRN PRN PRN Reason: Pain Score 1-10/Temp > 100.7 F Last Admin: 01/16/21 15:46 Dose: 650 mg Documented by: Acyclovir (Acyclovir 200 Mg Capsule) 400 mg PO BID [facility] Last Admin: 01/17/21 09:27 Dose: 400 mg Documented by: Al Hydroxide/Mg Hydroxide (Mag Hydrox/Al Hydrox/Simeth 30 Ml Udc) 30 ml PO Q6H PRN PRN PRN Reason: Gastric Burning Albuterol Sulfate (Albuterol 2.5 Mg/3 Ml Vial.Neb.) 2.5 mg INHALATION Q2H PRN PRN PRN Reason: SOB/Wheezing Last Admin: 01/16/21 22:00 Dose: 2.5 mg Documented by: Alendronate Sodium (Alendronate Sodium 70 Mg Tablet) 70 mg PO Q7D@0700 [facility] Alprazolam (Alprazolam 0.25 Mg Tablet) 0.25 mg PO TID PRN PRN PRN Reason: ANXIETY Last Admin: 01/17/21 00:10 Dose: 0.25 mg Documented by: Amitriptyline HCl (Amitriptyline 25 Mg Tablet) 25 mg PO QHS [facility] Last Admin: 01/16/21 20:59 Dose: 25 mg Documented by: Ascorbic Acid (Ascorbic Acid 500 Mg Tablet) 500 mg PO DAILY [facility] Last Admin: 01/17/21 09:27 Dose: 500 mg Documented by: Atorvastatin Calcium (Atorvastatin Calcium 40 Mg Tablet) 40 mg PO QHS [facility] Last Admin: 01/16/21 20:58 Dose: 40 mg Documented by: Calcium/Vitamin D (Calcium Carb/Vitamin D 1 Tablet Tablet) [facility] Last Admin: 01/17/21 09:24 Dose: 1 tablet Documented by: Carvedilol (Carvedilol 25 Mg Tablet) 25 mg PO BID [facility] Last Admin: 01/17/21 09:25 Dose: 25 mg Documented by: Dextrose (Dextrose 50%-Water 25 Gm/50 Ml Disp.Syrin) 0 gm IV X1 PRN; Protocol PRN Reason: Hypoglycemia Dicyclomine HCl (Dicyclomine 10 Mg Capsule) 20 mg PO TIDAC [facility] Last Admin: 01/17/21 06:43 Dose: 20 mg Documented by: Duloxetine HCl (Duloxetine Hcl 60 Mg Capsule) 60 mg PO BID [facility] Last Admin: 01/17/21 09:26 Dose: 60 mg Documented by: Enoxaparin Sodium (Enoxaparin 100 Mg/Ml Syringe) 100 mg SC BID [facility] Last Admin: 01/17/21 09:26 Dose: 100 mg Documented by: Ferrous Sulfate (Ferrous Sulfate 325 Mg Tablet) 325 mg PO DAILY@1200 [facility] Last Admin: 01/16/21 11:05 Dose: 325 mg Documented by: Furosemide (Furosemide 40 Mg Tablet) 40 mg PO BID@1000,1800 [facility] Last Admin: 01/17/21 09:26 Dose: 40 mg Documented by: Glucagon (Glucagon 1 Mg/Ml Syringe) 1 mg IM .X1 PRN PRN Reason: Hypoglycemia Guaifenesin (Guaifenesin 1,200 Mg Tablet) 1,200 mg PO BID [facility] Last Admin: 01/17/21 09:27 Dose: 1,200 mg Documented by: Hydralazine HCl (Hydralazine 20 Mg/Ml Vial) 10 mg IV Q4H PRN PRN PRN Reason: SBP>180 Last Admin: 01/15/21 13:49 Dose: 10 mg Documented by: Insulin Glargine (Insulin Glargine 100 Units/Ml Pen) 10 units SC BREAKFAST [facility] Last Admin: 01/17/21 09:23 Dose: 10 units Documented by: Insulin Human Lispro (Insulin Lispro 100 Unit/Ml Insuln.Pen) 0 unit SC ACHS [facility]; Protocol Last Admin: 01/17/21 06:46 Dose: Not Given Documented by: Levothyroxine Sodium (Levothyroxine 88 Mcg Tablet) 88 mcg PO DAILY@0600 [facility] Last Admin: 01/17/21 06:43 Dose: 88 mcg Documented by: Lisinopril (Lisinopril 20 Mg Tablet) 20 mg PO DAILY [facility] Last Admin: 01/17/21 09:27 Dose: 20 mg Documented by: Loratadine (Loratadine 10 Mg Tablet) 10 mg PO DAILY [facility] Last Admin: 01/17/21 09:25 Dose: 10 mg Documented by: Magnesium Chloride (Magnesium Chloride 64 Mg Delay Rel.Tablet) 128 mg PO DAILYCM [facility] Last Admin: 01/17/21 09:24 Dose: 128 mg Documented by: Morphine Sulfate (Morphine 2 Mg/Ml Syringe) 2 mg IV Q3H PRN PRN PRN Reason: Pain Score 6-10 Last Admin: 01/16/21 15:47 Dose: 2 mg Documented by: Multivitamins (Multivitamins,Therapeutic Tablet) [facility] Last Admin: 01/17/21 09:24 Dose: 1 tablet Documented by: Nitroglycerin (Nitroglycerin (Inpatient Use) 0.4 Mg Tab.Subl) 0.4 mg SL Q5M PRN PRN Reason: CARDIAC/CHEST PAIN Oxycodone HCl (Oxycodone 5 Mg Tablet) 5 mg PO Q4H PRN PRN PRN Reason: Pain Score 4-5 Last Admin: 01/16/21 20:55 Dose: 5 mg Documented by: Pantoprazole Sodium (Pantoprazole Sodium 40 Mg Tablet) 40 mg PO BID [facility] Last Admin: 01/17/21 09:27 Dose: 40 mg Documented by: Prednisone (Prednisone 20 Mg Tablet) 40 mg PO DAILY@0800 [facility] Last Admin: 01/17/21 09:25 Dose: 40 mg Documented by: Prochlorperazine Edisylate (Prochlorperazine 10 Mg/2 Ml Vial) 5 mg IV Q4H PRN PRN PRN Reason: Breakthrough Nausea/Vomiting Last Admin: 01/15/21 02:19 Dose: 5 mg Documented by: Sodium Chloride (0.9% Saline Lock 10 Ml Syringe) 10 - 40 ml IV UD PRN PRN Reason: SALINE FLUSH Last Admin: 01/16/21 18:23 Dose: 10 ml Documented by: Venlafaxine HCl (Venlafaxine Xr 75 Mg Capsule) 75 mg PO BID [facility] Last Admin: 01/17/21 09:26 Dose: 75 mg Documented by: Discharge Diet: Low fat/ Low Cholesterol, 8 Cup Fluid Restriciton, 2000 mg Sodium Diet Discharge Activity: Return to Normal Activity Call your doctor if you observe: Shortness of breath, Dizziness, Fainting spells, Chest pain Home Medications: Medications to take at Discharge Levothyroxine Sodium [Levoxyl] 88 mcg PO DAILY 11/17/17 Multivitamin [Multiple Vitamins] 1 ea PO DAILY 12/29/17 Pantoprazole Sodium [Protonix] 40 mg PO BID 05/25/19 Amitriptyline HCl 25 mg PO QHS 08/10/19 Alendronate Sodium [Fosamax] 70 mg PO Q7D@0700 #4 tab 08/25/19 Calcium Carb/Vitamin D [Os-Jose 500MG + D] 1 tab PO DAILYCM tab 08/25/19 Magnesium Oxide [Mag-Ox 400] 400 mg PO DAILYCM #30 tab 08/25/19 rosuvastatin 20 mg tablet 20 mg PO QHS 08/25/19 sitagliptin 50 mg tablet 50 mg PO DAILY 09/04/19 venlafaxine 75 mg capsule,extended release 24 hr 75 mg PO BID cap 09/04/19 Lisinopril [Zestril] 30 mg PO DAILY 03/18/20 Hydrocodone Bitart/Apap 5-325 [[place] 5/325] 1 tab PO BID 09/10/20 Ascorbic Acid [Vitamin C] 500 mg PO DAILY 10/19/20 Cetirizine HCl [Zyrtec] 10 mg PO DAILY 10/19/20 Dicyclomine HCl [Bentyl] 20 mg PO TIDAC 10/19/20 Duloxetine Hcl [Cymbalta] 60 mg PO BID 10/19/20 Valacyclovir HCl [Valacyclovir] 500 mg PO DAILY 10/19/20 Zanaflex 4 mg PO TID 10/19/20 Carvedilol [Coreg (Beta Eleni)] 25 mg PO BID #69 tab 10/21/20 Ferrous Sulfate 325 mg PO TIDCM #90 tab 10/21/20 Aspirin E.C. [Ecotrin] 81 mg PO DAILY@0800 #30 tab 01/17/21 Furosemide [Lasix] 40 mg PO BID@1000,1800 #60 tab 01/17/21 predniSONE tablet 40 mg PO DAILY@0800 #6 tab 01/17/21 Following Prescriptions Were Given to Patient: Aspirin E.C. [Ecotrin] 81 mg PO DAILY@0800 #30 tab Transmission Status: Received by [id number] Furosemide [Lasix] 40 mg PO BID@1000,1800 #60 tab Transmission Status: Received by [id number] predniSONE tablet 40 mg PO DAILY@0800 #6 tab Transmission Status: Received by [id number] Primary Care Physician: Brandon Torres DO [Primary Care Provider] - Please follow up with your Primary Care Physician in: 1 Week Please Follow Up With: Alfredo Gibson MD When: 2 Weeks, may see HOME CARE ASSOCIATE/PA Disposition: Home Minutes spent on discharge:: 35 Patient Condition:: Stable Medical Necessity - Tobacco Use Smoking Status: Former smoker - Quit about 30 years Meaningful Use Info Meaningful Use Diagnoses (Choose all that apply): None applicable <Alfa Foy - Last Filed: 01/17/21 17:10> Discharge Date and Diagnosis - Primary Discharge Diagnosis Acute Problems: Active Problems (Last Reviewed 09/04/19 @ 15:31 by Alayna Galloway) Acute respiratory failure with hypoxia (Acute) Pulmonary edema (Acute) Asthma exacerbation (Acute) - Secondary Discharge Diagnosis Chronic Problems: Chronic Problems (Last Reviewed 09/04/19 @ 15:31 by Alayna Galloway) Trigeminal trophic syndrome (Chronic) Falls (Chronic) 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 History of stroke (Chronic) 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 Normochromic normocytic anemia (Chronic) etiology never identified - may be due to chronic adrenal insufficiency Hypothyroidism, secondary/tertiary (Chronic) Osteoporosis (Chronic) suspected, has not had a BMD......I suspect this is severe Debility (Chronic) Cardiomyopathy (Chronic) Stroke (Chronic) Right hemiparesis (Chronic) Gait difficulty (Chronic) Diabetes mellitus (Chronic) Irritable bowel syndrome (Chronic) Muscle spasm (Chronic) Allergic rhinitis (Chronic) GERD (gastroesophageal reflux disease) (Chronic) Herpes simplex (Chronic) Hypotension (Chronic) All BP meds discontinued Carotid artery stenosis (Chronic) Hyperlipemia (Chronic) Hypertension (Chronic) Coronary artery disease (Chronic) Diabetes mellitus, type 2 (Chronic) History of Clostridium difficile infection (Chronic) Hx of diverticulitis of colon (Chronic) Status post partial colectomy Obesity (Chronic) Chronic constipation with suspected IBS (Chronic) History of ischemic colitis (Chronic) Bilateral leg weakness (Chronic) Hospital Course and Treatment Operations: None Procedures: 2-D Echocardiogram Summary of Care Provided: Patient seen and examined independently. Data reviewed. I agree with the above note by the nurse practitioner. The patient is a 60 year old F presents with shortness of breath. Began acutely. Likely due to an asthma exacerbation and patient was started on prednisone taper. Patient has done well be discharged home in stable condition. Patient does have a history of paroxysmal atrial fibrillation and stroke. Patient has had history of severe epistaxis and had been taken off of antiplatelet medication at that time. Patient was seen by otolaryngology who is essentially signed off on her home patient will be resumed back on aspirin. [] - Physical Exam Vitals/I&O's: Vital Signs Temp Pulse Resp BP Pulse Ox 37.1 C 98 18 153/85 H 94 01/17/21 11:27 01/17/21 11:27 01/17/21 11:27 01/17/21 11:27 01/17/21 11:45 Oxygen Flow Rate (L/min) 3 Oxygen Delivery Method Room Air Weight: 104.9 kg Body Mass Index (BMI) 37.0 Finger Stick Blood Glucose 154 Intake and Output for Last 24 Hours 01/15/21 01/16/21 01/17/21 22:59 23:59 23:59 Intake Total 240 / 240 Output Total 350 / 350 Balance -110 / -110 General: Alert, No apparent distress HEENT: Atraumatic, Normocephalic Oral: Moist Mucosa, No Gingival or Mucosal Lesions/ Ulcerations Neck: No Nodes, Thyroid Normal Size and Texture Lungs: Clear to auscultation, Normal air movement, No rhonchi, No wheeze Cardiovascular: Regular rate, Regular Rhythm, Normal S1 Abdomen: Bowel Sounds Present, Soft, Non Tender, Non-Distended Extremities: No edema, No Calf Tenderness Microbiology Past 72 Hours 01/14/21 22:40 Blood Culture (Wb) #2 - Anticubital Left Blood Culture - Preliminary No growth in 48 hours. 01/14/21 22:05 Blood Culture (Wb) - Anticubital Left Blood Culture - Preliminary No growth in 48 hours. 01/15/21 02:00 Mucosa - Nasopharyngeal Respiratory Panel (PCR) - Final 01/14/21 21:50 Mucosa - Nose SARS-CoV-2 Antigen (Rapid) - Final Laboratory Results 01/16/21 20:55: POC Glucose 244 H 01/17/21 05:38: WBC 21.4 H, RBC 4.20, Hgb 12.3, Hct 39.1, MCV 93.1, MCH 29.3, MCHC 31.5 L, RDW Std Deviation 47.8 H, RDW Coeff of Lencho 14.2, Plt Count 317, MPV 9.5 01/17/21 05:38: PT 13.9, INR 1.1, APTT 33.6 01/17/21 05:38: Sodium 132 L, Potassium 3.5, Chloride 99, Carbon Dioxide 26.0, Anion Gap 7, BUN 35 H, Creatinine 1.44 H, Estim Creat Clear Calc 40.40, Est GFR (MDRD) Af Amer 48 L, Est GFR (MDRD) Non-Af 40 L, BUN/Creatinine Ratio 24.3 H, Glucose 135 H, Calcium 10.0 01/17/21 06:45: POC Glucose 140 H 01/17/21 11:31: POC Glucose 199 H Discharge Diet: Low fat/ Low Cholesterol, 8 Cup Fluid Restriciton, 2000 mg Sodium Diet Discharge Activity: Return to Normal Activity Call your doctor if you observe: Shortness of breath, Dizziness, Fainting spells, Chest pain Disposition: Home Minutes spent on discharge:: 35 Patient Condition:: Stable Medical Necessity - Tobacco Use Smoking Status: Former smoker Meaningful Use Info Meaningful Use Diagnoses (Choose all that apply): None applicable Inpatient E&M: 49658 Disch Hosp
[2021-01-17] MEDS: Insulin Lispro 100 UNIT/ML INSULN.PEN SC (11:33)
[2021-01-17] MEDS: Ferrous Sulfate 325 MG Tablet PO (11:33)
[2021-01-17 12:00] LABS: Bedside Glucose 199 mg/dL (70-110)
--- NOTE | 2021-01-17 12:30 | PHA.DC.MC ---
Pharmacy Service has performed discharge medication reconciliation and counseling for this patient. 1. ASPIRIN 81MG PO DAILY 2. FUROSEMIDE 40MG PO BIDLX 3. PREDNISONE 40MG PO DAILY X 3 DAYS The patient's discharge medication list was reviewed for discrepancies and discrepancies were resolved. Home Medications Levothyroxine Sodium [Levoxyl] 88 mcg PO DAILY 11/17/17 Multivitamin [Multiple Vitamins] 1 ea PO DAILY 12/29/17 Pantoprazole Sodium [Protonix] 40 mg PO BID 03/29/19 Amitriptyline HCl 25 mg PO QHS 08/10/19 Alendronate Sodium [Fosamax] 70 mg PO Q7D@0700 #4 tab 08/25/19 Calcium Carb/Vitamin D [Os-Jose 500MG + D] 1 tab PO DAILYCM tab 08/25/19 Magnesium Oxide [Mag-Ox 400] 400 mg PO DAILYCM #30 tab 08/25/19 rosuvastatin 20 mg tablet 20 mg PO QHS 08/25/19 sitagliptin 50 mg tablet 50 mg PO DAILY 09/04/19 venlafaxine 75 mg capsule,extended release 24 hr 75 mg PO BID cap 09/04/19 Lisinopril [Zestril] 30 mg PO DAILY 03/18/20 Hydrocodone Bitart/Apap 5-325 [[place] 5/325] 1 tab PO BID 09/10/20 Ascorbic Acid [Vitamin C] 500 mg PO DAILY 10/19/20 Cetirizine HCl [Zyrtec] 10 mg PO DAILY 10/19/20 Dicyclomine HCl [Bentyl] 20 mg PO TIDAC 10/19/20 Duloxetine Hcl [Cymbalta] 60 mg PO BID 10/19/20 Valacyclovir HCl [Valacyclovir] 500 mg PO DAILY 10/19/20 Zanaflex 4 mg PO TID 10/19/20 Carvedilol [Coreg (Beta Eleni)] 25 mg PO BID #69 tab 10/21/20 Ferrous Sulfate 325 mg PO TIDCM #90 tab 10/21/20 Aspirin E.C. [Ecotrin] 81 mg PO DAILY@0800 #30 tab 01/17/21 Furosemide [Lasix] 40 mg PO BID@1000,1800 #60 tab 01/17/21 predniSONE tablet 40 mg PO DAILY@0800 #6 tab 01/17/21 The patient was counseled on the following discharge medications and changes in medications for homegoing were reviewed. The Reason for Use, instructions for use, and potential side effects were reviewed for all new medications. The patient's questions regarding all of their medications were answered. The patient was able to verbally demonstrate an understanding of their discharge medications.
--- NOTE | 2021-01-17 13:00 | CASEMGMT ---
[facility] palliative screening tool completed and pt does not qualify for palliative c/s via tool at this time. Robyn ERICKSON CM
--- NOTE | 2021-01-18 13:38 | CASEMGMT ---
DRE DELGADILLO Discharge Follow Up Phone Call: KALIA: Kristi Strata:3 Call Date: 01/18/2021 Discharge Date: 01/17/2021 Time of Call:[id number] Duration: 2 min Admitting Diagnosis: Acute Respiratory Failure DRE DELGADILLO completed FU tc after recent hospitalization. Pt states she is doing well. She has had a friend warehouse order picker her prescriptions. She is aware to make appt with PCP but has not done yet. Pt is aware of appt at [facility] on 02/02/2021. Pt denied questions regarding dc instructions.
== END 2021-01-17 13:00 | disposition home or self-care (01) | DRG 291 ==
LOC: ED 22:23 → PCU 01-15 00:43
PROVIDERS: Family Medicine; Internal Medicine; Nurse Practitioner Family; Admitting Provider Internal Medicine; Emergency Provider Emergency Medicine; PCP Student in an Organized Health Care Education/Training Program
DX: I13.0 Hypertensive heart and chronic kidney disease with heart failure and stage 1 through stage 4 chronic kidney disease, or unspecified chronic kidney disease (principal); J96.01 Acute respiratory failure with hypoxia; I50.23 Acute on chronic systolic (congestive) heart failure; J45.901 Unspecified asthma with (acute) exacerbation; N17.9 Acute kidney failure, unspecified; G81.91 Hemiplegia, unspecified affecting right dominant side; E27.49 Other adrenocortical insufficiency; I42.8 Other cardiomyopathies; D64.9 Anemia, unspecified; E03.9 Hypothyroidism, unspecified; E11.22 Type 2 diabetes mellitus with diabetic chronic kidney disease; N18.32 Chronic kidney disease, stage 3b; E83.42 Hypomagnesemia; R79.89 Other specified abnormal findings of blood chemistry; G50.8 Other disorders of trigeminal nerve; E11.42 Type 2 diabetes mellitus with diabetic polyneuropathy; E66.9 Obesity, unspecified; E78.1 Pure hyperglyceridemia; E78.5 Hyperlipidemia, unspecified; F32.9 Major depressive disorder, single episode, unspecified; F41.9 Anxiety disorder, unspecified; I25.10 Atherosclerotic heart disease of native coronary artery without angina pectoris; I95.9 Hypotension, unspecified; I48.0 Paroxysmal atrial fibrillation; K58.1 Irritable bowel syndrome with constipation; I65.21 Occlusion and stenosis of right carotid artery; M19.90 Unspecified osteoarthritis, unspecified site; K21.9 Gastro-esophageal reflux disease without esophagitis; M81.0 Age-related osteoporosis without current pathological fracture; G56.00 Carpal tunnel syndrome, unspecified upper limb; Z86.19 Personal history of other infectious and parasitic diseases; Z68.38 Body mass index [BMI] 38.0-38.9, adult; Z79.899 Other long term (current) drug therapy; Z86.73 Personal history of transient ischemic attack (TIA), and cerebral infarction without residual deficits; Z87.19 Personal history of other diseases of the digestive system; Z87.891 Personal history of nicotine dependence; Z90.49 Acquired absence of other specified parts of digestive tract
CPT/HCPCS: 36415; 36600; 71045; 71275; 74018; 78582; 80048; 82803; 82962; 83036; 83605; 83735; 83880; 84439; 84443; 84481; 84484; 85025; 85027; 85379; 85610; 85730; 87040; 87426; 87633; 93005; 93306; 93970; 94002; 94640; 94667; 99251; 99285; A9540; A9567; Q9957; Q9967; A4216; C8929; G0463; J1940; J2405

== ENCOUNTER → 2021-01-27 11:34 | Outpatient (CLI) | payer MEDICARE, MEDICAID, SELFPAY ==
[2021-01-27 10:43] VITALS: BMI 36.0
[2021-01-27 12:37] LABS: Anion Gap 8 (5-15); BUN 30 mg/dL (7-18); BUN/Creat Ratio 19.4 RATIO (10-20); Calcium,Total 9.7 mg/dL (8.5-10.1); Chloride 106 mmol/L (98-107); Creatinine, Serum 1.55 mg/dL (0.55-1.02); EST Glomerular Filtration Rate 36 mL/min (>60); Est Glom Filt Rate - Afr Amer 44 mL/min (>60); Glucose 108 mg/dL (74-106); Potassium 3.5 mmol/L (3.5-5.1); Sodium Level 136 mmol/L (136-145)
== END ==
PROVIDERS: PCP Student in an Organized Health Care Education/Training Program; Referring Provider Internal Medicine Cardiovascular Disease; Visit Provider Internal Medicine Cardiovascular Disease
DX: I50.22 Chronic systolic (congestive) heart failure (principal); R06.00 Dyspnea, unspecified
CPT/HCPCS: 36415; 80048

== ENCOUNTER 2021-02-04 02:41 | Inpatient (IN) | payer MEDICARE, MEDICAID, SELFPAY ==
[2021-01-27 10:43] VITALS: BMI 36.0
[2021-02-04] VITALS (51 sets, daily range): BP systolic 62–182; BP diastolic 33–91; PULSE 53–98; RESP 12–23; TEMP 34.8–37; O2SAT 92–100; BMI 38.3; BMI 39.1
--- NOTE | 2021-02-04 02:57 | RAD_ITS ---
STUDY: X-RAY CHEST REASON FOR EXAM: Female, 60 years old. SOB TECHNIQUE: Single AP portable view of the chest. COMPARISON: 01/16/2021 FINDINGS: The lungs are clear and expanded. There is no demonstrated pleural abnormality. Normal size heart. Normal mediastinum and jonathan. Normal visualized pulmonary arteries. Normal visualized aortic arch and descending thoracic aorta. Normal visualized thoracic spine. Normal visualized ribs, clavicles, and shoulders. There is no demonstrated abnormality of the visualized soft tissue structures of the upper abdomen. RAD/Chest 1 View (Portable) IMPRESSION: Normal x-ray examination of the chest. Electronically Signed: Maldonado Neumann DO at 3:37 EDT Tel , Service support ,
--- NOTE | 2021-02-04 02:57 | CT_ITS ---
STUDY: CT BRAIN WITHOUT CONTRAST REASON FOR EXAM: Female, 60 years old. Headache RADIATION DOSAGE (If Supplied By Facility): CTDIvol = ( 44.99 ) mGy, DLP = ( 762.36 ) mGycm TECHNIQUE: Transaxial CT imaging of the brain was performed without administration of intravenous contrast material. Individualized dose optimization techniques were used for this CT. COMPARISON: 08/14/2019 and 12/28/2017 FINDINGS: Normal soft tissue structures. Normal calvarium. Normal size ventricles and extra-axial spaces for the patient''s age. Normal white matter tracts of the cerebral hemispheres. Normal basal ganglia and thalami. Normal brainstem. Normal cerebellum. There is no intracranial hemorrhage. There are no findings of an acute ischemic infarction. Normal visualized paranasal sinuses. CT/Brain/Head without Contrast IMPRESSION: Normal unenhanced CT scan of the brain. Electronically Signed: Maldonado Neumann DO at 3:42 EDT Tel , Service support ,
--- NOTE | 2021-02-04 02:57 | EKG12_ITS ---
Test Reason : SOB Blood Pressure : / mmHG Vent. Rate : 072 BPM Atrial Rate : 072 BPM P-R Int : 178 ms QRS Dur : 100 ms QT Int : 424 ms P-R-T Axes : 041 035 058 degrees QTc Int : 464 ms Normal sinus rhythm Normal ECG Confirmed by CALEB CASTRO, KENAN ([id number]), map editor ANASTASIA HENSON ([id number]) on 02/04/2021 12:53:43 PM Referred By: SAGRARIO Confirmed By:KENAN ELLIS MD
[2021-02-04 03:20] LABS: Absolute Lymphocyte Count 2.41 X10^3/uL (0.83-4.51); Absolute Neutrophil Count 6.7 X10^3/uL (2.0-7.7); Basophil# 0.09 X10^3/uL; Basophil% 0.9 % (0-1); Eosinophil# 0.28 X10^3/uL; Eosinophils% 2.8 % (0-5); Hematocrit 29.5 % (37-47); Hemoglobin 9.7 g/dL (12.0-15.0); Lymphocyte # 2.41 X10^3/ul (4.0); Lymphocyte % 23.9 % (19-41); Mean Corp Hgb Conc 32.9 g/dL (32-36); Mean Corpuscular Hgb 29.7 pg (27.0-32.0); Mean Corpuscular Volume 90.2 fL (81-99); Mean Platelet Vol. 10.1 fl (6.2-12.0); Monocyte# 0.54 X10^3/uL; Monocyte% 5.4 % (0-10); NRBC Flagged by Analyzer 0 % (0-5); Neutrophil # 6.72 X10^3/uL (2.7-7.7); Neutrophil % 66.5 % (47-70); Platelet Count 195 K/mm3 (150-450); RBC Distribution Width CV 14.5 % (11.6-14.6); Red Blood Count 3.27 M/mm3 (4.2-5.4); White Blood Count 10.1 K/mm3 (4.4-11.0)
[2021-02-04 03:31] LABS: Prothrombin Time (Protime)PT. 12.8 SECONDS (11.7-14.9)
[2021-02-04 03:32] LABS: Partial Thromboplast Time 25.1 Seconds (24.1-36.2)
[2021-02-04] MEDS: Metoclopramide 10 MG/2 ML Vial 5 MG IV (03:32)
--- NOTE | 2021-02-04 03:37 | ED.DCSUM_ITS ---
- ER Visit Summary Date of Service: 02/04/21 Chief Complaint: Lightheaded and short of breath History of Present Illness: The patient is a [address] Torres and Dr. Gibson. She reports that she felt fine yesterday. She woke up at 130 this morning short of breath. When she stood up to use the bathroom she was very lightheaded. She did not pass out. Reports that her shortness of breath is severe. Is worsened by exertion. Is relieved by rest. A cough for the past 2 days is productive yellow sputum without blood. She denies any fever, chills, or chest pain. Patient reports that she has chronic abdominal pain that is unchanged. She does states that she has a pressure and feels bloated. At 7 to 10 hours and 5-10 currently. Is increased with deep breaths. She denies any nausea, vomiting, or diarrhea. She reports that she has a headache that stated 10 severity. Is a throbbing headache. Similar to when she had migraines when she was younger. Of note the patient was admitted to the hospital earlier this month with pulmonary edema. She had an echocardiogram on the of this month that showed an ejection fraction of 15%. She saw Dr. Gibson on January 27. Patient was started on Entresto. She reports that she took this for the first time yesterday morning approximately 11 AM. She took her second dose at 11 PM. She states that she stopped her lisinopril the day before. Physical Examination: Vitals: 97.5, 87/43, 74, 18, 99% on room air which is not hypoxic. General: Well-nourished and well-developed. Head: Normocephalic atraumatic. Neck: Supple, no lymphadenopathy. No JVD. Nontender. Cardiovascular: Regular rate and rhythm. No murmurs. Respiratory: Mild respiratory distress. Clear to auscultation bilaterally. Abdominal: Soft, nontender, nondistended, normal bowel sounds. No guarding, rebound, or peritoneal signs. Back: Nontender. Extremities: Nontender, no edema. Skin: Normal color, no rash. Neurologic: Alert and oriented ?3. Cranial nerves II through XII are intact. Normal strength and sensation. Psych: Normal affect. Test Results: EKG is sinus at [address] changes. Is unchanged where there is month. Troponin is negative. BNP is 45.7. Lactic acid is 1.7. TSH is 2.45. LFTs are normal. Chem-7 shows potassium of 3.4, BUN 24, creatinine 1.7, glucose 148. CBC shows an H&H 9.7 and 29.5. Of note her hemoglobin was 12.3 on January 17. Covid is negative. Clinical Impression(s) from Imaging Studies Brain CT 02/04/21 02:57 IMPRESSION: Normal unenhanced CT scan of the brain. Electronically Signed: Maldonado Neumann DO at 3:42 EDT Tel , Service support , Chest X-Ray 02/04/21 02:57 IMPRESSION: Normal x-ray examination of the chest. Electronically Signed: Maldonado Neumann DO at 3:37 EDT Tel , Service support , Chest CTA 02/04/21 04:01 IMPRESSION: Normal CTA chest examination, without a demonstrated pulmonary embolism or arterial dissection. Lungs are adequately inflated and clear. Electronically Signed: Maldonado Neumann DO at 4:53 EDT Tel , Service support , Emergency Department Course and Treatment: Patient had an IV placed. Initially with her hypotension she was given a 500 cc bolus of normal saline given her recent echo showing ejection fraction of 15%. Her blood pressure has ranged between 70 and 90 systolic. She was given a second 500 cc bolus of normal saline. I had a prolonged discussion with her about placement of a central line for Levophed. She has refused this. Pressure remained in the 70 systolic after this liter. She is given another 500 cc bolus of normal saline. The patient's labs returned. Her chest x-ray and BNP are reassuring as far as fluid resuscitation. Patient also had a Sheriff catheter placed and has not had any urine output. I suspect that she is dry from her Lasix. This combined with the Entresto has caused her hypotension. Treatment Plan: Patient will was discussed with Dr. Olvera and will be admitted the hospital for further evaluation and treatment. Disposition: Admitted in serious condition. Impression: 1. Hypotension. 2. Anemia. 3. Ejection fraction of 15%. 4. Critical care time 30 minutes. This note was generated with [employer]ango D[employer] dictation software. It may contain incorrect words, spelling, and punctuation that were not noted in review of the chart prior to signing ED Disposition - Plan for ED Patient: Referrals: Brandon Torres DO [Primary Care Provider] -
--- NOTE | 2021-02-04 03:40 | ED.RN ---
PT CAME BACK FROM CT SHORT OF BREATH, ANXIOUS FROM LAYING DOWN. BIPAP PLACED, TOLERATED WELL.
[2021-02-04 03:46] LABS: Lactic Acid 1.7 mmol/L (0.4-1.9)
[2021-02-04 03:50] LABS: D-Dimer Quantitative (DVT/PE) 0.78 FEU/ug/m (0.27-0.49)
[2021-02-04 03:59] LABS: AST(SGOT) 22 U/L (15-37); Alanine Aminotransfer ALT/SGPT 24 U/L (13-56); Albumin, Serum 3.4 g/dL (3.2-5.0); Alkaline Phosphatase 47 U/L (45-117); Anion Gap 10 (5-15); BUN 24 mg/dL (7-18); BUN/Creat Ratio 14.1 RATIO (10-20); Bilirubin, Direct 0.09 mg/dL (0.00-0.30); Calcium,Total 9.1 mg/dL (8.5-10.1); Chloride 101 mmol/L (98-107); EST Glomerular Filtration Rate 33 mL/min (>60); Est Glom Filt Rate - Afr Amer 39 mL/min (>60); Estimated Creatinine Clearance 32.94 ml/min; Globulin 3.3 g/dL (2.2-4.2); Glucose 148 mg/dL (74-106); Potassium 3.4 mmol/L (3.5-5.1); Protein, Total 6.7 g/dL (6.4-8.2); Sodium Level 137 mmol/L (136-145)
--- NOTE | 2021-02-04 04:01 | CT_ITS ---
STUDY: CTA CHEST REASON FOR EXAM: Female, 60 years old. PE RADIATION DOSAGE (If Supplied By Facility): CTDIvol = ( 13.85 ) mGy, DLP = ( 472.87 ) mGycm TECHNIQUE: The examination was performed with the intravenous administration of IV 100mL [id number]-370. Post-processing of the angiographic images was performed, with multiplanar reformation and 3D reconstruction. Individualized dose optimization techniques were used for this CT. COMPARISON: None. FINDINGS: Normal enhancement of the main pulmonary artery and right and left pulmonary arteries. Normal enhancement of the bilateral peripheral pulmonary arteries. There is no demonstrated pulmonary embolism. Normal thoracic aorta and visualized great vessels. There is no demonstrated aortic dissection. Normal heart and pericardium. Normal mediastinum. Normal hilar regions. Normal visualized trachea and bronchi. The lungs are well expanded. Normal pulmonary parenchyma. Normal pleura. Normal chest wall structures. Normal osseous structures. Normal visualized upper abdomen. CT/CTA Chest W/WO Contrast IMPRESSION: Normal CTA chest examination, without a demonstrated pulmonary embolism or arterial dissection. Lungs are adequately inflated and clear. Electronically Signed: Maldonado Neumann DO at 4:53 EDT Tel , Service support ,
[2021-02-04 04:15] LABS: Thyroid Stim Hormone (TSH) 2.45 uIU/mL (0.358-3.74)
[2021-02-04 04:16] LABS: BNP,B-Type NATRIURETIC PEPTIDE 45.7 pg/mL (0-100)
[2021-02-04 04:41] LABS: Mucous, Urine 0 SEEN /hpf (<or=2+)
[2021-02-04 04:43] LABS: Color, Urine Yellow (Yellow); Glucose, Dipstick Normal (Normal); Ketone-Dipstick Negative (Negative); Leukocyte Esterase-Dipstick 100 /ul (Negative); Nitrite-Dipstick Negative (Negative); Occult Blood-Urine Negative /ul (Negative); Protein-Dipstick 30 mg/dl (Negative); Urine Bilirubin Dipstick Negative (Negative); Urine Clarity Clear (Clear); Urine Urobilinogen Normal (Normal)
[2021-02-04 04:44] LABS: Bacteria RARE /hpf (None Seen); Red Blood Cells-Urine 0-5 SEEN /hpf (0-5); Squamous Epithelial Cells - UA 0-5 SEEN /hpf (5-10); White Blood Cells 0-5 SEEN /hpf (0-5)
--- NOTE | 2021-02-04 05:52 | HP.PCM_ITS ---
Problem List (1) Hypotension Status: Acute (2) Dyspnea on minimal exertion Status: Chronic (3) Atherosclerosis of coronary artery without angina pectoris Status: Chronic (4) Non-ischemic cardiomyopathy Status: Chronic (5) Chronic systolic (congestive) heart failure Status: Chronic (6) Essential hypertension Status: Chronic (7) Hyperlipidemia Status: Chronic (8) History of CVA (cerebrovascular accident) Status: Chronic Comment: There are old lacunar infarct defects in the cerebellar hemispheres. RIGHT parietal cortex and the bilateral medial occipital cortex suggesting recent cortical infarcts possibly due to thromboembolism. MRI 11/2017; Old deep white matter infarct in right parietal lobe and chronic ischemic changes with cerebellum MRI 08/2019 (9) Carotid artery stenosis Status: Chronic Qualifiers: Laterality: right Qualified Code(s): I65.21 - Occlusion and stenosis of right carotid artery Comment: Right IC 50-69 % Left IC < 50% U/S 11/2017 (10) Hypothermia Status: Acute (11) Dyspnea Status: Acute History of Present Illness Date of Admission: 02/04/21 Chief Complaint: Dyspnea The patient is a 60 year old F with a significant history of CVA; heart failure with reduced ejection fraction who presents emergency department with dyspnea that started few hours before presentation. Patient woke up from her sleep because of abdominal bloating. She report that her abdominal bloating comes on and off and it is chronic. When she woke up she also began to have shortness of breath that progressed. Also she felt lightheaded. She attempted to walk and felt very unsteady on her feet. Subsequently, she called the squad and she was brought to the emergency department. Further she had right frontal headache that has since disappeared. She also had right numbness and weakness that lasted for about 1 hour. Recently she was diagnosed with heart failure with reduced ejection fraction and was started on Lasix. She also started taking Entresto in the past 24 hours prior to presentation. So far she has had 2 doses of Entresto. On presentation at the emergency department she was placed on BiPAP. However, when she was taking to radiology where a CTA was done the patient was transitioned from BiPAP to nasal cannula oxygen. Even on low-dose nasal cannula oxygen her oxygen saturation was close to 100%. Past Medical History Past Medical History (Chronic Problems): Chronic Problems (Last Reviewed 02/04/21 @ 06:[address] Zeke Olvera MD) Dyspnea on minimal exertion (Chronic) Atherosclerosis of coronary artery without angina pectoris (Chronic) Non-ischemic cardiomyopathy (Chronic) Chronic systolic (congestive) heart failure (Chronic) Essential hypertension (Chronic) Hyperlipidemia (Chronic) History of CVA (cerebrovascular accident) (Chronic 2017) There are old lacunar infarct defects in the cerebellar hemispheres. RIGHT parietal cortex and the bilateral medial occipital cortex suggesting recent cortical infarcts possibly due to thromboembolism. MRI 11/2017; Old deep white matter infarct in right parietal lobe and chronic ischemic changes with cerebellum MRI 08/2019 Carotid artery stenosis (Chronic) Right IC 50-69 % Left IC < 50% U/S 11/2017 Medical History: Medical History (Last Reviewed 02/04/21 @ 06:[address] Zeke Olvera MD) Atherosclerosis of coronary artery without angina pectoris (Chronic) I25.10 Non-ischemic cardiomyopathy (Chronic) I42.8 Chronic systolic (congestive) heart failure (Chronic) I50.22 Essential hypertension (Chronic) I10 Hyperlipidemia (Chronic) E78.5 History of CVA (cerebrovascular accident) (Chronic) Onset Date: 2017 Z86.73 There are old lacunar infarct defects in the cerebellar hemispheres. RIGHT parietal cortex and the bilateral medial occipital cortex suggesting recent cortical infarcts possibly due to thromboembolism. MRI 11/2017; Old deep white matter infarct in right parietal lobe and chronic ischemic changes with cerebellum MRI 08/2019 Carotid artery stenosis (Chronic) I65.29 Right IC 50-69 % Left IC < 50% U/S 11/2017 ACTH deficiency E23.6 new diagnosis - Asthma J45.909 Bilateral leg weakness R29.898 CKD (chronic kidney disease) stage 3, GFR 30-59 ml/min N18.30 Chronic headaches R51 Debility R53.81 Falls W19.XXXA GERD (gastroesophageal reflux disease) K21.9 Gait difficulty R26.9 Herpes simplex B00.9 History of depression Z86.59 Hx of diverticulitis of colon Z87.19 Status post partial colectomy Hypothyroidism E03.9 Irritable bowel syndrome K58.9 Kidney disease N28.9 Neuropathy G62.9 Normochromic normocytic anemia D64.9 etiology never identified - may be due to chronic adrenal insufficiency Obesity E66.9 Osteoarthritis M19.90 Osteopenia M85.80 Osteoporosis M81.0 suspected, has not had a BMD......I suspect this is severe Peripheral vascular disease I73.9 Right hemiparesis G81.91 Seasonal allergies J30.2 Secondary adrenal insufficiency E27.49 new diagnosis - likely due to pituitary or hypothalamic disease Stomach ulcer K25.9 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 Type 2 diabetes mellitus E11.9 Acute respiratory failure with hypoxia J96.01 Allergic rhinitis J30.9 Anemia D64.9 Asthma exacerbation J45.901 Bone fracture T14.8XXA Carpal tunnel syndrome G56.00 Flash pulmonary edema Onset Date: 01/16/21 J81.0 Gallstones K80.20 History of Clostridium difficile infection Z86.19 History of ischemic colitis (Resolved) Hypotension (Resolved) I95.9 All BP meds discontinued Chronic constipation with suspected IBS GI problem R19.8 History of emotional problems Z86.59 Pulmonary edema Allergies adhesive Allergy (Verified 02/04/21 02:49) skin irritation amlodipine [From Norvasc] Allergy (Verified 02/04/21 02:49) tachycardia hydromorphone HCl [From Dilaudid] Allergy (Verified 02/04/21 02:49) Itching sulfamethoxazole [From Bactrim] Allergy (Verified 02/04/21 02:49) made my cold sore huge trimethoprim [From Bactrim] Allergy (Verified 02/04/21 02:49) made my cold sore huge Home Medications: Ambulatory Orders Medication Instructions Recorded Levothyroxine Sodium [Levoxyl] 88 mcg PO DAILY 11/17/17 Multivitamin [Multiple Vitamins] 1 ea PO DAILY 12/29/17 Pantoprazole Sodium [Protonix] 40 mg PO BID 03/29/19 Amitriptyline HCl 25 mg PO QHS 08/10/19 Alendronate Sodium [Fosamax] 70 mg PO Q7D@0700 #4 tab 08/25/19 rosuvastatin 20 mg tablet 20 mg PO QHS 08/25/19 sitagliptin 50 mg tablet 50 mg PO DAILY 09/04/19 Hydrocodone Bitart/Apap 5-325 1 tab PO BID 09/10/20 [[place] 5/325] Dicyclomine HCl [Bentyl] 20 mg PO TIDAC 10/19/20 Duloxetine Hcl [Cymbalta] 60 mg PO BID 10/19/20 Valacyclovir HCl [Valacyclovir] 500 mg PO DAILY 10/19/20 Carvedilol [Coreg (Beta Eleni)] 25 mg PO BID #69 tab 10/21/20 Aspirin E.C. [Ecotrin] 81 mg PO DAILY@0800 #30 tab 01/17/21 fluticasone propionate 50 2 spray INTRANASAL DAILY 01/26/21 mcg/actuation nasal spray,suspension furosemide 40 mg tablet 40 mg PO DAILY tablet 01/26/21 tizanidine 4 mg tablet 4 mg PO Q8H PRN 01/26/21 venlafaxine 75 mg capsule,extended 75 mg PO .COMPLEX cap 01/26/21 release 24 hr ascorbate calcium (vitamin C) 500 500 mg PO DAILY 01/27/21 mg tablet calcium carbonate 600 mg (1,500 1 cap PO DAILY 01/27/21 mg)-vitamin D3 500 unit capsule cetirizine 10 mg capsule 10 mg PO DAILY PRN 01/27/21 magnesium oxide 400 mg PO DAILY 01/27/21 sacubitril 49 mg-valsartan 51 mg 1 tablet PO BID #60 tablet 01/27/21 tablet Surgical History: Surgical History (Last Reviewed 02/04/21 @ 06:[address] 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 History of arthroscopic knee surgery Z98.890 L x 3 [id number] History of back surgery Z98.890 L5, S1, S2 08/22 History of bilateral knee replacement Z96.653 R-2004, L-2014 History of carpal tunnel release Z98.890 R 1990 , 2011 History of cholecystectomy Z90.49 1988 History of intestine removal Z90.49 13 inches 09/19 History of left heart catheterization Onset Date: 2011 Z98 History of tonsillectomy and adenoidectomy Z98.890 1984 History of trigger finger Z87.39 Release left middle and ring finger History of ventral hernia repair Z98.890, Z87.19 02/2014 Strangulated ventral hernia K43.6 09/22 Surgical History: cholecystectomy, total knee arthroplasty - Bilateral., tonsillectomy, - - partial colon resection due to diverticulosis. 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 Alfredo Gibson MD) Grandfather Alcoholism Grandmother Myocardial infarction Mother Arthritis Diverticulitis COPD (chronic obstructive pulmonary disease) Afib Thyroid disorder Father Arthritis Diabetes Myocardial infarction Heart disease Hypertension Hyperlipidemia Brother Arthritis Aunt Breast cancer Sister Arthritis Thyroid disorder Skin cancer Uncle Diabetes History Items: Diabetes, Heart Disease, - Maternal Family History: Family History (Last Reviewed 01/27/21 @ 11:[address] Alfredo Gibson MD) Grandfather Alcoholism Grandmother Myocardial infarction Mother Arthritis Diverticulitis COPD (chronic obstructive pulmonary disease) Afib Thyroid disorder Father Arthritis Diabetes Myocardial infarction Heart disease Hypertension Hyperlipidemia Brother Arthritis Aunt Breast cancer Sister Arthritis Thyroid disorder Skin cancer Uncle Diabetes History Items: Heart Disease, - - osteoarthritis Review of Systems Constitutional: Denies: Chills, Fever, Weight Change HEENT: Denies: Head Aches, Sinus Congestion, Sinus Drainage Cardiovascular: Reports: Light Headedness. Denies: Chest Pain, Palpitations Respiratory: Reports: Shortness of Breath. Denies: Cough, Sputum production Gastrointestinal: Denies: Abdominal Pain, Nausea, Vomiting Genitourinary: Denies: Dysuria Musculoskeletal: Denies: Joint Pain, Joint Tenderness Skin: Denies: Rash, Wounds Neurological: Denies: Numbness, Tingling, Focal weakness Psychiatric: Denies: Anxiety, Depression, Homicidal Ideations, Suicidal Ideations Hematologic/ Lymphatic: Denies: Easy Bruising, Easy Bleeding VTE Information - Inpt Only VTE Present on Admission: No VTE Mechan Device Prophylaxis: None VTE Pharm Prophylaxis ordered?: Yes Patient Problems: Active and Suspected Problems (Last Reviewed 02/04/21 @ 06:[address] Zeke Olvera MD) Hypotension (Acute) Hypothermia (Acute) Dyspnea (Acute) - Physical Exam Vitals/I&O's: Vital Signs Temp Pulse Resp BP Pulse Ox 95.5 F L 65 13 78/48 L 98 02/04/21 05:30 02/04/21 05:30 02/04/21 05:30 02/04/21 05:30 02/04/21 05:30 Oxygen Flow Rate (L/min) 2 Oxygen Delivery Method Nasal Cannula Weight: 107.7 kg Body Mass Index (BMI) 38.3 Finger Stick Blood Glucose 154 Intake and Output for Last 24 Hours 02/02/21 02/03/21 02/04/21 23:59 23:59 23:59 Intake Total 1500 / 1500 Balance 1500 / 1500 General: Alert, Oriented x3, Cooperative HEENT: Atraumatic, PERRLA, EOMI, Normocephalic Neck: Supple, No JVD, Negative Carotid Bruits Lungs: Clear to auscultation, Normal air movement Cardiovascular: Regular rate, Normal S1, Normal S2, No murmurs Abdomen: Bowel Sounds Present, Soft, Non Tender Extremities: No edema, Capillary Refill Less than 3 Seconds Skin: - - Pale Musculoskeletal: No Tenderness to Palpation of Joints or Extremities Neurological: Cranial nerves II-XII grossly intact Psych/Mental Status: Normal Affect, Appropriate Microbiology Past 72 Hours 02/04/21 03:02 Mucosa - Nose SARS-CoV-2 Antigen (Rapid) - Final Laboratory Results 02/04/21 01:30: WBC 10.1, RBC 3.27 L, Hgb 9.7 L, Hct 29.5 L, MCV 90.2, MCH 29.7, MCHC 32.9, RDW Std Deviation 46.0 H, RDW Coeff of Lencho 14.5, Plt Count 195, MPV 10.1, Immature Gran % (Auto) 0.500, Neut % (Auto) 66.5, Lymph % (Auto) 23.9, [place] % (Auto) 5.4, Eos % (Auto) 2.8, Baso % (Auto) 0.9, Absolute Neuts (auto) 6.7, Absolute Lymphs (auto) 2.41, Nucleated RBC % 0 02/04/21 01:30: Sodium 137, Potassium 3.4 L, Chloride 101, Carbon Dioxide 26.0, Anion Gap 10, BUN 24 H, Creatinine 1.70 H, Estim Creat Clear Calc 32.94, Est GFR (MDRD) Af Amer 39 L, Est GFR (MDRD) Non-Af 33 L, BUN/Creatinine Ratio 14.1, Glucose 148 H, Calcium 9.1, Total Bilirubin 0.40, Direct Bilirubin 0.09, AST 22, ALT 24, Alkaline Phosphatase 47, Troponin I < 0.015, Total Protein 6.7, Albumin 3.4, Globulin 3.3, Albumin/Globulin Ratio 1.0 02/04/21 01:30: Lactic Acid 1.7 02/04/21 01:30: B-Natriuretic Peptide 45.7 02/04/21 01:30: PT 12.8, INR 1.0, APTT 25.1 02/04/21 03:10: TSH 2.45 02/04/21 03:39: D-Dimer Quant (PE/DVT) 0.78 H* 02/04/21 04:35: Urine Color Yellow, Urine Clarity Clear, Urine pH 5.0, Ur Specific [place] 1.020, Urine Protein 30 H, Urine Glucose (UA) Normal, Urine Ketones Negative, Urine Occult Blood Negative, Urine Nitrite Negative, Urine Bilirubin Negative, Urine Urobilinogen Normal, Ur Leukocyte Esterase 100 H, Urine RBC 0-5 SEEN, Urine WBC 0-5 SEEN, Ur Squamous Epith Cells 0-5 SEEN, Urine Bacteria RARE, Urine Mucus 0 SEEN Current Medications Norepinephrine Bitartrate 8 mg (/ Sodium Chloride) 250 mls @ 9.375 mls/hr CONT INF .[id number] [place]; Protocol Sodium Chloride () 500 mls @ 999 mls/hr IV .Q31M [place] Stop: 02/04/21 06:00 Assessment/Plan All Active Problems (Last Reviewed 02/04/21 @ 06:[address] Zeke Olvera MD) Hypotension (Acute) Hypothermia (Acute) Dyspnea (Acute) Ankle fracture (Resolved) Bacteremia due to Gram-negative bacteria (Resolved) Closed right ankle fracture (Resolved) Epistaxis (Resolved) Foot fracture, right (Resolved) Heme positive stool (Resolved) History of ischemic colitis (Resolved) Hyperkalemia (Resolved) Hypomagnesemia (Resolved) Hypotension (Resolved) Left lower quadrant abdominal pain (Resolved) Near syncope (Resolved) Toe fracture, right (Resolved) The patient is a 60 year old F with a significant history of CVA; heart failure with reduced ejection fraction who presents to the emergency department with dyspnea: Light headedness and unsteady gait and found to have hypotension and hypothermia at the ED. Hypotension/hypothermia/dyspnea Systolic blood pressure was in the 70s at the emergency department. Patient declined central line to be placed for pressors. Reportedly previous central lines placed was painful. Discussed with emergency electronics department manager to start Levophed at low-dose. Continue Levophed at low-dose for now. Review of problem list include ACTH deficiency. Review of record shows that ACTH on 08/13/2019 was 5.5L. Cortisol level on 08/12/2019 was 25 and on the same date was 23.8. Start cortisol level and ACTH level ordered. Of note patient was admitted at a hospital on 01/14/2021 and discharged on 01/17/2021. Admission diagnosis at that time included acute hypoxic respiratory failure from acute heart failure with reduced ejection fraction and asthma exacerbation. Patient was prescribed prednisone and Lasix inpatient and continued with same on discharge. Uncertain whether adrenal insufficiency is playing a role in this. Hold Lasix. Hold Entresto. Hold carvedilol. Home [place] held. Hold amitriptyline. Received 1500 mL of normal saline in repeated 500 mL boluses at the ED. Normal saline 100 mL/L ordered.. Admit to intensive care and consult funeral pre arrangement counselor. ARTIE Creatinine on presentation was 1.70. Review of old record showed that his creatinine in October 2020 was as low as 0.80. BUN is 24. BUN over creatinine is 14.1. Reportedly with IV fluid boluses at emergency department she had a slow start of urine output. Likely secondary to dehydration. IV fluids as above. Trend BMP. Avoid nephrotoxic's. Hypokalemia Potassium of 3.4 Replaced. Trend BMP. Elevated D-dimer CTPA unremarkable. Heart failure with reduced ejection fraction Echocardiogram on 01/15/2021 showed left ventricular ejection fraction of 15%. Right ventricular systolic pressure was unable to be estimated. On home Lasix; carvedilol and Entresto with plan to probably have a pacemaker in due course. With hypotension Lasix; carvedilol and Entresto replaced on hold and patient has been started on IV fluids. Osteoporosis Alendronate continued Acute anemia Globin presentation was 9.7. Her hemoglobin on 01/17/2021 was 12.3. She denies any jake bleeding. She refuses rectal examination. Iron panel and reticulocyte panel ordered Check occult stools. Trend H&H. History of Herpetic ulcers/trigeminal trophic syndrome Valacyclovir continued DVT prophylaxis Subcutaneous Lovenox ordered. Of note patient has anemia. Inpatient E&M: 74604 Init Hosp L3
[2021-02-04 07:18] LABS: Ferritin 137 ng/mL (8-252); Iron 74 ug/dL (50-170); Iron Binding Capacity,Total 345 ug/dL (250-450); PERCENT IRON SATURATION 21.4 % (15.0-55.0)
--- NOTE | 2021-02-04 07:43 | PCM.CON.CC ---
Problem List (1) Hypotension Status: Suspected Qualifiers: Hypotension type: hypotension due to drug Qualified Code(s): I95.2 - Hypotension due to drugs (2) Dyspnea Status: Acute (3) Atherosclerosis of coronary artery without angina pectoris Status: Chronic (4) Non-ischemic cardiomyopathy Status: Chronic (5) Chronic systolic (congestive) heart failure Status: Chronic (6) Essential hypertension Status: Chronic (7) Hyperlipidemia Status: Chronic (8) History of CVA (cerebrovascular accident) Status: Chronic Comment: There are old lacunar infarct defects in the cerebellar hemispheres. RIGHT parietal cortex and the bilateral medial occipital cortex suggesting recent cortical infarcts possibly due to thromboembolism. MRI 11/2017; Old deep white matter infarct in right parietal lobe and chronic ischemic changes with cerebellum MRI 08/2019 (9) Carotid artery stenosis Status: Chronic Qualifiers: Laterality: right Qualified Code(s): I65.21 - Occlusion and stenosis of right carotid artery Comment: Right IC 50-69 % Left IC < 50% U/S 11/2017 Reason for Consult Date of Consultation: 02/04/21 Reason for Consultation: Hypotension History of Present Illness: The patient is a 60 year old F, with past medical history listed below, who presented to [facility] on 02/04/2021 secondary to shortness of breath. Patient reportedly had felt at her baseline yesterday with no constitutional symptoms such as fever, chills, nausea or vomiting. Patient does have some postnasal drip with a cough productive of pale yellow to white sputum, but this is at its baseline. Patient reportedly had woken up this morning and was very lightheaded when she went to the bathroom. This resulted in some shortness of breath that was worsened with exertion and relieved with rest. Patient reported an abdominal bloating type of sensation that was worse with deep inhalation. Patient not had any nausea, vomiting or diarrhea. Patient had also reported a throbbing type headache similar to previous migraines that she had had when she was younger. Patient reportedly was admitted to [facility] earlier this month for congestive heart failure. Patient was noted to have an EF of 15% at that time and was seen by Dr. Gibson. Patient was started on Entresto and reports that this came in the mail yesterday at approximately 11 AM. Patient did not take her lisinopril yesterday per her report. Patient took her second dose at 11 PM and woke to the symptoms described above. Patient does take Coreg and Lasix at baseline. In the ER, patient was afebrile and 99% on room air. Patient was hypotensive at 87/43 with a heart rate of 74. EKG showed nonspecific ST changes and BNP was within normal limits. Lactate was normal at 1.7 and remaining lab work was relatively unremarkable except for a slightly decreased potassium of 3.4, creatinine at 1.7 and a hemoglobin of 9.7. Patient did have a hemoglobin of 12.3 on January 17. Patient denied any GI bleeding symptoms. A chest x-ray and CT of the head were unremarkable. Patient had a slightly elevated D-dimer, so a CTA was obtained showing no acute pathology. There was some concern patient was over diuresed, so she was given some IV fluids and admitted to the intensive care unit on pressors. Patient does not have a central line in place. Patient states that she had a previous poor experience with a central line placement when she was admitted with C. difficile sepsis. Patient understands that this leads to an increased risk of complications, but believes that her requirement for pressors will be temporary. Patient request to be out if a central line is necessary. Review of systems otherwise negative from a constitutional, HEENT, respiratory, cardiovascular, GI, genitourinary, musculoskeletal, skin, neurologic, psychiatric and hematologic system unless stated above. Past Medical History Past Medical History (Chronic Problems): Chronic Problems (Last Reviewed 02/04/21 @ 06:[address] Zeke Olvera MD) Dyspnea on minimal exertion (Chronic) Atherosclerosis of coronary artery without angina pectoris (Chronic) Non-ischemic cardiomyopathy (Chronic) Chronic systolic (congestive) heart failure (Chronic) Essential hypertension (Chronic) Hyperlipidemia (Chronic) History of CVA (cerebrovascular accident) (Chronic 2017) There are old lacunar infarct defects in the cerebellar hemispheres. RIGHT parietal cortex and the bilateral medial occipital cortex suggesting recent cortical infarcts possibly due to thromboembolism. MRI 11/2017; Old deep white matter infarct in right parietal lobe and chronic ischemic changes with cerebellum MRI 08/2019 Carotid artery stenosis (Chronic) Right IC 50-69 % Left IC < 50% U/S 11/2017 Medical History: Medical History (Last Reviewed 02/04/21 @ 06:[address] Zeke Olvera MD) Atherosclerosis of coronary artery without angina pectoris (Chronic) I25.10 Non-ischemic cardiomyopathy (Chronic) I42.8 Chronic systolic (congestive) heart failure (Chronic) I50.22 Essential hypertension (Chronic) I10 Hyperlipidemia (Chronic) E78.5 History of CVA (cerebrovascular accident) (Chronic) Onset Date: 2017 Z86.73 There are old lacunar infarct defects in the cerebellar hemispheres. RIGHT parietal cortex and the bilateral medial occipital cortex suggesting recent cortical infarcts possibly due to thromboembolism. MRI 11/2017; Old deep white matter infarct in right parietal lobe and chronic ischemic changes with cerebellum MRI 08/2019 Carotid artery stenosis (Chronic) I65.29 Right IC 50-69 % Left IC < 50% U/S 11/2017 ACTH deficiency E23.6 new diagnosis - Asthma J45.909 Bilateral leg weakness R29.898 CKD (chronic kidney disease) stage 3, GFR 30-59 ml/min N18.30 Chronic headaches R51 Debility R53.81 Falls W19.XXXA GERD (gastroesophageal reflux disease) K21.9 Gait difficulty R26.9 Herpes simplex B00.9 History of depression Z86.59 Hx of diverticulitis of colon Z87.19 Status post partial colectomy Hypothyroidism E03.9 Irritable bowel syndrome K58.9 Kidney disease N28.9 Neuropathy G62.9 Normochromic normocytic anemia D64.9 etiology never identified - may be due to chronic adrenal insufficiency Obesity E66.9 Osteoarthritis M19.90 Osteopenia M85.80 Osteoporosis M81.0 suspected, has not had a BMD......I suspect this is severe Peripheral vascular disease I73.9 Right hemiparesis G81.91 Seasonal allergies J30.2 Secondary adrenal insufficiency 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 new diagnosis - likely due to pituitary or hypothalamic disease Stomach ulcer K25.9 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 Type 2 diabetes mellitus E11.9 Acute respiratory failure with hypoxia J96.01 Allergic rhinitis J30.9 Anemia D64.9 Asthma exacerbation J45.901 Bone fracture T14.8XXA Carpal tunnel syndrome G56.00 Flash pulmonary edema Onset Date: 01/16/21 J81.0 Gallstones K80.20 History of Clostridium difficile infection Z86.19 History of ischemic colitis (Resolved) Hypotension (Resolved) I95.9 All BP meds discontinued Chronic constipation with suspected IBS GI problem R19.8 History of emotional problems Z86.59 Pulmonary edema Allergies adhesive Allergy (Verified 02/04/21 02:49) skin irritation amlodipine [From Norvasc] Allergy (Verified 02/04/21 02:49) tachycardia hydromorphone HCl [From Dilaudid] Allergy (Verified 02/04/21 02:49) Itching sulfamethoxazole [From Bactrim] Allergy (Verified 02/04/21 02:49) made my cold sore huge trimethoprim [From Bactrim] Allergy (Verified 02/04/21 02:49) made my cold sore huge Home Medications: Ambulatory Orders Medication Instructions Recorded Levothyroxine Sodium [Levoxyl] 88 mcg PO DAILY 11/17/17 Multivitamin [Multiple Vitamins] 1 ea PO DAILY 12/29/17 Pantoprazole Sodium [Protonix] 40 mg PO BID 03/29/19 Amitriptyline HCl 25 mg PO QHS 08/10/19 Alendronate Sodium [Fosamax] 70 mg PO Q7D@0700 #4 tab 08/25/19 rosuvastatin 20 mg tablet 20 mg PO QHS 08/25/19 sitagliptin 50 mg tablet 50 mg PO DAILY 09/04/19 Hydrocodone Bitart/Apap 5-325 1 tab PO BID 09/10/20 [[place] 5/325] Dicyclomine HCl [Bentyl] 20 mg PO TIDAC 10/19/20 Duloxetine Hcl [Cymbalta] 60 mg PO BID 10/19/20 Valacyclovir HCl [Valacyclovir] 500 mg PO DAILY 10/19/20 Carvedilol [Coreg (Beta Eleni)] 25 mg PO BID #69 tab 10/21/20 Aspirin E.C. [Ecotrin] 81 mg PO DAILY@0800 #30 tab 01/17/21 fluticasone propionate 50 2 spray INTRANASAL DAILY 01/26/21 mcg/actuation nasal spray,suspension furosemide 40 mg tablet 40 mg PO DAILY tablet 01/26/21 tizanidine 4 mg tablet 4 mg PO Q8H PRN 01/26/21 venlafaxine 75 mg capsule,extended 75 mg PO .COMPLEX cap 01/26/21 release 24 hr ascorbate calcium (vitamin C) 500 500 mg PO DAILY 01/27/21 mg tablet calcium carbonate 600 mg (1,500 1 cap PO DAILY 01/27/21 mg)-vitamin D3 500 unit capsule cetirizine 10 mg capsule 10 mg PO DAILY PRN 01/27/21 magnesium oxide 400 mg PO DAILY 01/27/21 sacubitril 49 mg-valsartan 51 mg 1 tablet PO BID #60 tablet 01/27/21 tablet Surgical History: Surgical History (Last Reviewed 02/04/21 @ 06:[address] Zeke Olvera MD) Ankle fracture S82.899A 08/10/19 Fracture of left femur S72.92XA 03/21 History of angioplasty of peripheral vessel Onset Date: 2010 Z98.62 [employer] History of arthroscopic knee surgery Z98.890 L x 3 [id number] History of back surgery Z98.890 L5, S1, S2 08/22 History of bilateral knee replacement Z96.653 R-2004, L-2014 History of carpal tunnel release Z98.890 R 1990 , 2011 History of cholecystectomy Z90.49 1988 History of intestine removal Z90.49 13 inches 09/19 History of left heart catheterization Onset Date: 2011 Z98.890 History of tonsillectomy and adenoidectomy Z98.890 1984 History of trigger finger Z87.39 Release left middle and ring finger History of ventral hernia repair Z98.890, Z87.19 02/2014 Strangulated ventral hernia K43.6 09/22 Surgical History: cholecystectomy, total knee arthroplasty - Bilateral., tonsillectomy, - - partial colon resection due to diverticulosis. Psychiatric History: Depression TEST MAN History: No pertinent TEST MAN history Smoking Status: Former smoker - *Family History Paternal Family History: Family History (Last Reviewed 01/27/21 @ 11:[address] Alfredo Gibson MD) Grandfather Alcoholism Grandmother Myocardial infarction Mother Arthritis Diverticulitis COPD (chronic obstructive pulmonary disease) Afib Thyroid disorder Father Arthritis Diabetes Myocardial infarction Heart disease Hypertension Hyperlipidemia Brother Arthritis Aunt Breast cancer Sister Arthritis Thyroid disorder Skin cancer Uncle Diabetes History Items: Diabetes, Heart Disease, - Maternal Family History: Family History (Last Reviewed 01/27/21 @ 11:[address] Alfredo Gibson MD) Grandfather Alcoholism Grandmother Myocardial infarction Mother Arthritis Diverticulitis COPD (chronic obstructive pulmonary disease) Afib Thyroid disorder Father Arthritis Diabetes Myocardial infarction Heart disease Hypertension Hyperlipidemia Brother Arthritis Aunt Breast cancer Sister Arthritis Thyroid disorder Skin cancer Uncle Diabetes History Items: Heart Disease, - - osteoarthritis Review of Systems Comment: See HPI Patient Problems: Active and Suspected Problems (Last Reviewed 02/04/21 @ 06:[address] Zeke Olvera MD) Hypotension (Suspected) Hypothermia (Acute) Dyspnea (Acute) Objective: All imaging was personally reviewed. CTA of the chest was unremarkable. There is no infiltrates or mediastinal lymphadenopathy appreciated. - Physical Exam Vitals/I&O's: Vital Signs Temp Pulse Resp BP Pulse Ox 35.3 C L 70 15 110/57 L 100 02/04/21 05:30 02/04/21 06:46 02/04/21 06:30 02/04/21 06:30 02/04/21 06:55 Oxygen Flow Rate (L/min) 4 Oxygen Delivery Method Nasal Cannula Weight: 109.9 kg Body Mass Index (BMI) 39.1 Finger Stick Blood Glucose 154 Intake and Output for Last 24 Hours 02/02/21 02/03/21 02/04/21 23:59 23:59 23:59 Intake Total Balance General: Alert, Oriented x3, Cooperative, No apparent distress, Well developed, Well nourished, - - Obese. No conversational dyspnea. HEENT: Atraumatic, PERRLA, EOMI, Normocephalic, - - No scleral icterus or injection noted Oral: Moist Mucosa, No Gingival or Mucosal Lesions/ Ulcerations Neck: Supple, No JVD, No Nodes, Trachea Midline Lungs: No rhonchi, No wheeze, No rales, Diminished, - - Fair effort Cardiovascular: Regular rate, Regular Rhythm, Normal S1, Normal S2, No murmurs, No rub noted, No Gallop Abdomen: Bowel Sounds Present, Soft, Non Tender, Non-Distended, Obese Extremities: No clubbing, No cyanosis, No edema Skin: No rashes, No breakdown Musculoskeletal: No Tenderness to Palpation of Joints or Extremities Lymphatic: No Cervical, Supraclavicular, or Inguinal Adenopathy Neurological: Cranial nerves II-XII grossly intact, Neuro grossly intact, Motor Exam 5/5 strength throughout Psych/Mental Status: Alert and oriented to time, place, person, mood and affect Microbiology Past 72 Hours 02/04/21 03:02 Mucosa - Nose SARS-CoV-2 Antigen (Rapid) - Final Laboratory Results 02/04/21 01:30: WBC 10.1, RBC 3.27 L, Hgb 9.7 L, Hct 29.5 L, MCV 90.2, MCH 29.7, MCHC 32.9, RDW Std Deviation 46.0 H, RDW Coeff of Lencho 14.5, Plt Count 195, MPV 10.1, Immature Gran % (Auto) 0.500, Neut % (Auto) 66.5, Lymph % (Auto) 23.9, Dickinson % (Auto) 5.4, Eos % (Auto) 2.8, Baso % (Auto) 0.9, Absolute Neuts (auto) 6.7, Absolute Lymphs (auto) 2.41, Nucleated RBC % 0 02/04/21 01:30: Sodium 137, Potassium 3.4 L, Chloride 101, Carbon Dioxide 26.0, Anion Gap 10, BUN 24 H, Creatinine 1.70 H, Estim Creat Clear Calc 32.94, Est GFR (MDRD) Af Amer 39 L, Est GFR (MDRD) Non-Af 33 L, BUN/Creatinine Ratio 14.1, Glucose 148 H, Calcium 9.1, Total Bilirubin 0.40, Direct Bilirubin 0.09, AST 22, ALT 24, Alkaline Phosphatase 47, Troponin I < 0.015, Total Protein 6.7, Albumin 3.4, Globulin 3.3, Albumin/Globulin Ratio 1.0 02/04/21 01:30: Lactic Acid 1.7 02/04/21 01:30: B-Natriuretic Peptide 45.7 02/04/21 01:30: PT 12.8, INR 1.0, APTT 25.1 02/04/21 03:10: TSH 2.45 02/04/21 03:10: Iron 74, TIBC 345, Iron Saturation 21.4, Ferritin 137 02/04/21 03:39: D-Dimer Quant (PE/DVT) 0.78 H* 02/04/21 04:35: Urine Color Yellow, Urine Clarity Clear, Urine pH 5.0, Ur Specific [place] 1.020, Urine Protein 30 H, Urine Glucose (UA) Normal, Urine Ketones Negative, Urine Occult Blood Negative, Urine Nitrite Negative, Urine Bilirubin Negative, Urine Urobilinogen Normal, Ur Leukocyte Esterase 100 H, Urine RBC 0-5 SEEN, Urine WBC 0-5 SEEN, Ur Squamous Epith Cells 0-5 SEEN, Urine Bacteria RARE, Urine Mucus 0 SEEN Current Medications Acetaminophen (Acetaminophen 325 Mg Tablet) 650 mg PO Q6H PRN PRN PRN Reason: Pain Score 1-10/Temp > 100.7 F Albuterol Sulfate (Albuterol 2.5 Mg/3 Ml Vial.Neb.) 2.5 mg INHALATION Q2H PRN PRN PRN Reason: SOB/Wheezing Alendronate Sodium (Alendronate Sodium 70 Mg Tablet) 70 mg PO Q7D@0700 [facility] Ascorbic Acid (Ascorbic Acid 500 Mg Tablet) 500 mg PO DAILY [facility] Aspirin (Aspirin E.C. 81 Mg Tablet) 81 mg PO DAILY@0800 [facility] Atorvastatin Calcium (Atorvastatin Calcium 40 Mg Tablet) 40 mg PO QHS [facility] Calcium/Vitamin D (Calcium Carb/Vitamin D 1 Tablet Tablet) 1 tablet PO DAILYCM [facility] Dicyclomine HCl (Dicyclomine 10 Mg Capsule) 20 mg PO TIDAC [facility] Duloxetine HCl (Duloxetine Hcl 60 Mg Capsule) 60 mg PO BID [facility] Enoxaparin Sodium (Enoxaparin 40 Mg/0.4 Ml Syringe) 40 mg SC DAILY [facility] Fluticasone Propionate (Fluticasone 0.05% 1 Kimberly Nasal.Sry) 2 spray NASAL DAILY [facility] Norepinephrine Bitartrate 8 mg (/ Sodium Chloride) 250 mls @ 9.375 mls/hr CONT INF .[id number] [facility]; Protocol Last Admin: 02/04/21 07:35 Dose: Not Given Documented by: Sodium Chloride () 250 mls @ 15 mls/hr IV .[id number] PRN PRN Reason: Saline Flush Sodium Chloride () 250 mls @ 15 mls/hr IV .[id number] PRN PRN Reason: Additional IVPB Infusion Levothyroxine Sodium (Levothyroxine 88 Mcg Tablet) 88 mcg PO DAILY@0600 [facility] Linagliptin (Linagliptin 5 Mg Tablet) 5 mg PO DAILY [facility] Loratadine (Loratadine 10 Mg Tablet) 10 mg PO DAILY PRN PRN Reason: ALLERGIES Magnesium Chloride (Magnesium Chloride 64 Mg Delay Rel.Tablet) 128 mg PO DAILY [facility] Melatonin (Melatonin 3 Mg Tablet) 3 mg PO QHS PRN PRN PRN Reason: INSOMNIA Multivitamins (Multivitamins,Therapeutic Tablet) [facility] Non-Formulary Medication (Valacyclovir Hcl [Valacyclovir]) 500 mg PO DAILY [facility] Ondansetron HCl (Ondansetron 4 Mg/2 Ml Vial) 4 mg IV Q8H PRN PRN PRN Reason: NAUSEA/VOMITING Pantoprazole Sodium (Pantoprazole Sodium 40 Mg Tablet) 40 mg PO BID [facility] Sodium Chloride (0.9% Saline Lock 10 Ml Syringe) 10 - 40 ml IV UD PRN PRN Reason: SALINE FLUSH Tizanidine HCl (Tizanidine Hcl 2 Mg Tablet) 4 mg PO Q8H PRN PRN Reason: MUSCLE SPASM Venlafaxine HCl (Venlafaxine Xr 75 Mg Capsule) 75 mg PO .COMPLEX [facility] Clinical Impression(s) from Imaging Studies Brain CT 02/04/21 02:57 IMPRESSION: Normal unenhanced CT scan of the brain. Electronically Signed: Maldonado Neumann DO at 3:42 EDT Tel , Service support , Chest X-Ray 02/04/21 02:57 IMPRESSION: Normal x-ray examination of the chest. Electronically Signed: Maldonado Neumann DO at 3:37 EDT Tel , Service support , Chest CTA 02/04/21 04:01 IMPRESSION: Normal CTA chest examination, without a demonstrated pulmonary embolism or arterial dissection. Lungs are adequately inflated and clear. Electronically Signed: Maldonado Neumann DO at 4:53 EDT Tel , Service support , Assessment/Plan Active and Suspected Problems (Last Reviewed 02/04/21 @ 06:[address] Zeke Olvera MD) Hypotension (Suspected) Hypothermia (Acute) Dyspnea (Acute) RECOMMENDATIONS: 1. Continue pressors as necessary to maintain adequate blood pressure 2. Avoid aggressive fluid resuscitation 3. Wean oxygen as tolerated 4. Consider cardiology consult for recommendations on BP meds 5. Monitor for signs and symptoms of GI bleed 6. Obtain random cortisol level IMPRESSIONS: 1. Hypotension Unclear etiology at this time. Clinical suspicion for unintentional medication overdose with Entresto, but patient also has a significant decrease in hemoglobin compared to previous. No GI bleed symptoms have been reported. Continue with pressors for now. Avoid aggressive fluid resuscitation given patient's depressed EF and high risk for congestive heart failure. Extensive discussion with the patient about the risks of using pressors peripherally. Patient has agreed to a possible central line placement if pressors are required for more than 24 hours. Adrenal insufficiency would be a concern, so will obtain a random cortisol level. If patient develops signs or symptoms of GI bleed, volume resuscitation with blood would be referred over crystalloids. 2. Hypoxia Patient was placed on BiPAP for a brief period of time. Clinical suspicion for an element of obstructive sleep apnea leading to upper airway obstruction and decreased saturations. Continue to wean oxygen as tolerated. Patient would benefit from a sleep work-up as an outpatient. 3. Acute kidney injury Baseline creatinine of approximately 0.8. Presented with creatinine of 1.7. Clinical suspicion for prerenal etiology. Patient did receive significant fluid resuscitation in the ER. PAMELA/ARB is held at this time. 4. Chronic systolic congestive heart failure/osteoporosis/anemia/history of CVA/obesity Complicates care, management, recovery and prognosis. Patient does not appear to be in a CHF exacerbation at this time TIME: 32 minutes critical care time spent addressing patient's hypotension, acute kidney injury, congestive heart failure, review of all data and collaboration with care team (6:30 AM to 8 AM) [id number]: [id number] Critical care first hour
[2021-02-04 08:17] LABS: Platelet Count 152 K/mm3 (150-450); RET-HE 39.2 pg (30-35); Reticulocyte Count 1.84 % (0.5-1.5)
[2021-02-04 08:31] LABS: Hematocrit 31.6 % (37-47); Hemoglobin 10.2 g/dL (12.0-15.0)
[2021-02-04] MEDS: Potassium Chloride Oral Tablet 20 MEQ PO (08:35)
[2021-02-04] MEDS: Dicyclomine 10 MG Capsule 20 MG PO ×3 (08:35→15:53)
[2021-02-04] MEDS: 0.9% Saline Lock 10 ML Syringe IV (08:36)
[2021-02-04] MEDS: Calcium Carb/Vitamin D 1 TABLET Tablet PO (08:36)
[2021-02-04] MEDS: Levothyroxine 88 MCG Tablet PO (08:36)
[2021-02-04] MEDS: Multivitamins,Therapeutic Tablet 1 TABLET PO (08:36)
[2021-02-04] MEDS: Aspirin E.C. 81 MG Tablet PO (08:36)
[2021-02-04] MEDS: DULoxetine Hcl 60 MG Capsule PO ×2 (08:38→21:18)
[2021-02-04] MEDS: Pantoprazole Sodium 40 MG Tablet PO ×2 (08:39→21:20)
[2021-02-04] MEDS: Ascorbic Acid 500 MG Tablet PO (08:39)
[2021-02-04] MEDS: LINAGLIPTIN 5 MG TABLET PO (08:39)
[2021-02-04] MEDS: Magnesium Chloride 64 MG Delay Rel.Tablet 128 MG PO (08:39)
[2021-02-04] MEDS: Enoxaparin 40 MG/0.4 ML Syringe SC (08:40)
[2021-02-04] MEDS: Acyclovir 200 MG Capsule 400 MG PO ×2 (10:16→21:20)
[2021-02-04] MEDS: Venlafaxine HCl 75 MG Tablet PO (10:16)
--- NOTE | 2021-02-04 11:40 | CASEMGMT ---
DRE DELGADILLO Readmission note: Previous admission: Admitted to [facility] 01/15/21 with dx of Acute resp failure and COPD. Pt w/new diagnosis of CHF. Echo done 01/15: EF 15%. Pt had appt scheduled with Dr Gibson for 01/27 prior to discharge and was to f/u with her PCP in one week. Pt started on Prednisone and lasix while an in-pt which was continued @ discharge--scripts were sent to [facility] pharmacy. Discharged home w/resumption of aides through [employer]aiver program on 01/17/21. Pt lives at home alone. Current admission: Pt admitted 02/04/21 w/hypotension. Pt was started on Entresto, which she began taking yesterday (). DRE DELGADILLO to room to talk with pt. She states she been taking her medications as prescribed. She had a phone appt via zoom with MANAGER OF DATA Minnie Torres on 01/21 and next appt scheduled w/Dr Torres is on 04/13. [address] Gibson on 01/27 and next scheduled appt is with Joellen THOMAS for Dr Gibson on May 05. Pt states she wishes to return home @ discharge w/resumption of aides from [place]. She states the aides continue to come 2 x's/week and assist her with home mgmt tasks, groceries/meals, and picking up medications. She is able to bath/dress herself, but usually tries to bath when the aides are present, just in case I would need some help. Pt states that she has been trying to get a new glucometer since the beginning of January. She states [facility] but she has not heard anything from anyone yet. She states she has an old glucometer but has been using her neighbors, but it is out of lancets. Call placed to [facility] pharmacy. They state they have not received a script for a glucometer yet. Script for glucometer and supplies obtained from Dr Blackman and given to pt. She voices appreciation. Discussed CCN with pt and she is agreeable to referral. Call placed to Luis @ [facility] and she was made aware. Order placed. Pt qualifies for a Palliative referral per the [facility] palliative screening tool at this time. Dr Rodriguez aware and states ok for Palliative c/s at this time. Order placed. Palliative updated at this time. Face Sheet faxed to Palliative at this time. Discharge Plan: Home w/resumption of aides through Waiver program. CCN and Palliative Care referral's have been made. Cathryn GONZALEZN RN CM
--- NOTE | 2021-02-04 12:48 | PCM.CONS.P ---
Problem List (1) Dyspnea Status: Acute (2) Dyspnea on minimal exertion Status: Chronic (3) Hypotension Status: Suspected Qualifiers: Hypotension type: hypotension due to drug Qualified Code(s): I95.2 - Hypotension due to drugs (4) Hypothermia Status: Acute (5) Atherosclerosis of coronary artery without angina pectoris Status: Chronic (6) Non-ischemic cardiomyopathy Status: Chronic (7) Chronic systolic (congestive) heart failure Status: Chronic (8) Essential hypertension Status: Chronic (9) Hyperlipidemia Status: Chronic (10) History of CVA (cerebrovascular accident) Status: Chronic Comment: There are old lacunar infarct defects in the cerebellar hemispheres. RIGHT parietal cortex and the bilateral medial occipital cortex suggesting recent cortical infarcts possibly due to thromboembolism. MRI 11/2017; Old deep white matter infarct in right parietal lobe and chronic ischemic changes with cerebellum MRI 08/2019 (11) Carotid artery stenosis Status: Chronic Qualifiers: Laterality: right Qualified Code(s): I65.21 - Occlusion and stenosis of right carotid artery Comment: Right IC 50-69 % Left IC < 50% U/S 11/2017 History of Present Illness Date of Consult: 02/04/21 Reason for Consult: Palliative referral Requesting physician: [] Primary care physician: Dr. Brandon Torres, DO - History of Present Illness The patient is a 60 year old obese elderly F who was referred to [facility] related to positives on palliative screening tool for shortness of breath and congestive heart failure. She is currently a patient of Dr. Torres and Dr. Gibson. Was reportedly started on Entresto yesterday and awoke in the middle of the night with abdominal pain and shortness of breath and proceeded to call 911. She had a previous [facility] admission on January 15 pulmonary edema and last echo showed ejection fraction of 15% and was started on entresto by Dr Gibson. At the ER, She had an IV placed and received three 500 cc boluses of normal saline which improved BP. EKG is sinus at [address] changes. Is unchanged where there is month. Troponin is negative. BNP is 45.7. Lactic acid is 1.7. TSH is 2.45. LFTs are normal. Chem-7 shows potassium of 3.4, BUN 24, creatinine 1.7, glucose 148. CBC shows an H&H 9.7 and 29.5. Of note her hemoglobin was 12.3 on January 17. Covid is negative. Brain CT 02/04/21 02:[address] scan of the brain, Chest X-Ray 02/04/21 02:57 negative, Chest CTA 02/04/21 04:01 completed after elevated D dimer that was also normal. Refused placement of central line for Levophed due to bad experience with central lines. Patient continues on close monitoring in the ICU for pressors and monitoring of respiratory status. Seen today in her ICU room knitting washcloths. Palliative services explained palliative could manage symptoms and monitor chronic disease status. Patient very discouraged with repeat hospitalizations and low endurance. Reported that she was feeling so well before last night. Reports chronic neuropathy pain in bilateral extremities right worse than left. half-way chronic pain with back surgery, hx of left hip fracture and right ankle fracture. Dr. Torres has been managing her [place] and all her medications. I do not want my medications adjusted by anyone else right now. Very concerned about her Lasix dosages and concerned about hypotension and falls living alone. Assured patient that palliative would work with Dr. Torres to help maintain quality of life. Denies any shortness of breath at this time and is not using oxygen currently. Denies further abdominal pain, but continues to feel bloated. Reports loose stool and is worried that staff will be offended by the smell. States she will reach out to Palliative if she changes her mind about services. Patient Problems: Chronic Problems (Last Reviewed 02/04/21 @ 06:[address] Zeke Olvera MD) Dyspnea on minimal exertion (Chronic) Atherosclerosis of coronary artery without angina pectoris (Chronic) Non-ischemic cardiomyopathy (Chronic) Chronic systolic (congestive) heart failure (Chronic) Essential hypertension (Chronic) Hyperlipidemia (Chronic) History of CVA (cerebrovascular accident) (Chronic 2017) There are old lacunar infarct defects in the cerebellar hemispheres. RIGHT parietal cortex and the bilateral medial occipital cortex suggesting recent cortical infarcts possibly due to thromboembolism. MRI 11/2017; Old deep white matter infarct in right parietal lobe and chronic ischemic changes with cerebellum MRI 08/2019 Carotid artery stenosis (Chronic) Right IC 50-69 % Left IC < 50% U/S 11/2017 Surgical History: cholecystectomy, total knee arthroplasty - Bilateral., tonsillectomy, - - partial colon resection due to diverticulosis. Psychiatric History: Depression Home Medications: Ambulatory Orders Medication Instructions Recorded Levothyroxine Sodium [Levoxyl] 88 mcg PO DAILY 11/17/17 Multivitamin [Multiple Vitamins] 1 ea PO DAILY 12/29/17 Pantoprazole Sodium [Protonix] 40 mg PO BID 03/29/19 Amitriptyline HCl 25 mg PO QHS 08/10/19 Alendronate Sodium [Fosamax] 70 mg PO Q7D@0700 #4 tab 08/25/19 rosuvastatin 20 mg tablet 20 mg PO QHS 08/25/19 sitagliptin 50 mg tablet 50 mg PO DAILY 09/04/19 Hydrocodone Bitart/Apap 5-325 1 tab PO BID 09/10/20 [[place] 5/325] Dicyclomine HCl [Bentyl] 20 mg PO TIDAC 10/19/20 Duloxetine Hcl [Cymbalta] 60 mg PO BID 10/19/20 Valacyclovir HCl [Valacyclovir] 500 mg PO DAILY 10/19/20 Carvedilol [Coreg (Beta Eleni)] 25 mg PO BID #69 tab 10/21/20 Aspirin E.C. [Ecotrin] 81 mg PO DAILY@0800 #30 tab 01/17/21 fluticasone propionate 50 2 spray INTRANASAL DAILY 01/26/21 mcg/actuation nasal spray,suspension furosemide 40 mg tablet 40 mg PO DAILY tablet 01/26/21 tizanidine 4 mg tablet 4 mg PO Q8H PRN 01/26/21 ascorbate calcium (vitamin C) 500 500 mg PO DAILY 01/27/21 mg tablet calcium carbonate 600 mg (1,500 1 cap PO DAILY 01/27/21 mg)-vitamin D3 500 unit capsule cetirizine 10 mg capsule 10 mg PO DAILY PRN 01/27/21 magnesium oxide 400 mg PO DAILY 01/27/21 sacubitril 49 mg-valsartan 51 mg 1 tablet PO BID #60 tablet 01/27/21 tablet Venlafaxine HCl [Effexor] 75 mg PO BID 02/04/21 Allergies adhesive Allergy (Verified 02/04/21 02:49) skin irritation amlodipine [From Norvasc] Allergy (Verified 02/04/21 02:49) tachycardia hydromorphone HCl [From Dilaudid] Allergy (Verified 02/04/21 02:49) Itching sulfamethoxazole [From Bactrim] Allergy (Verified 02/04/21 02:49) made my cold sore huge trimethoprim [From Bactrim] Allergy (Verified 02/04/21 02:49) made my cold sore huge Paternal Family History: Family History (Last Reviewed 01/27/21 @ 11:[address] Alfredo Gibson MD) Grandfather Alcoholism Grandmother Myocardial infarction Mother Arthritis Diverticulitis COPD (chronic obstructive pulmonary disease) Afib Thyroid disorder Father Arthritis Diabetes Myocardial infarction Heart disease Hypertension Hyperlipidemia Brother Arthritis Aunt Breast cancer Sister Arthritis Thyroid disorder Skin cancer Uncle Diabetes History Items: Diabetes, Heart Disease, - Maternal Family History: Family History (Last Reviewed 01/27/21 @ 11:[address] Alfredo Gibson MD) Grandfather Alcoholism Grandmother Myocardial infarction Mother Arthritis Diverticulitis COPD (chronic obstructive pulmonary disease) Afib Thyroid disorder Father Arthritis Diabetes Myocardial infarction Heart disease Hypertension Hyperlipidemia Brother Arthritis Aunt Breast cancer Sister Arthritis Thyroid disorder Skin cancer Uncle Diabetes History Items: Heart Disease, Stroke, - - osteoarthritis - Social History Lives: Alone Smoking Status: Former smoker Code Status: Full Code Review of Systems Constitutional: Reports: Weakness, Fatigue. Denies: Anorexia, Chills, Fever Cardiovascular: Denies: Chest Pain, Chest Pressure, Chest Tightness, Edema, Orthopnea Respiratory: Reports: Cough Gastrointestinal: Reports: Diarrhea, - - abdominal bloating. Denies: Abdominal Pain, Vomiting Genitourinary: Reports: - - dumont catheter clear yellow urine. Denies: Dysuria, Frequency Musculoskeletal: Reports: Foot Pain - Neuropathic pain, Leg Pain Neurological: Reports: Headaches, Numbness, Tingling - extremity bilateral Psychiatric: Reports: Anxiety Physical Exam General: Alert, Oriented x3, Cooperative, No apparent distress HEENT: Atraumatic, EOMI, Normocephalic Oral: Moist Mucosa Neck: Supple, No JVD Lungs: Diminished - lung bases Cardiovascular: Regular rate - Distant heart tones, Regular Rhythm, Normal S1, Normal S2, No Ectopic Activity Last BM:: today Abdomen: Bowel Sounds Present, Soft, Non Tender, Non-Distended, Obese Extremities: No clubbing, No cyanosis, No edema Skin: No rashes, No breakdown Neurological: Cranial nerves II-XII grossly intact Psych/Mental Status: Normal Affect, Appropriate, Anxious, Alert and oriented to time, place, person, mood and affect Objective: Vital Signs Temp Pulse Resp BP Pulse Ox 97.8 F 84 18 120/69 100 02/04/21 12:00 02/04/21 12:00 02/04/21 12:00 02/04/21 12:00 02/04/21 12:00 Oxygen Flow Rate (L/min) 2 Oxygen Delivery Method Room Air Weight: 109.9 kg Body Mass Index (BMI) 39.1 Finger Stick Blood Glucose 154 Intake and Output for Last 24 Hours 02/02/21 02/03/21 02/04/21 23:59 23:59 23:59 Intake Total 2859.94 / 2859.94 Output Total 550 / 550 Balance 2309.94 / 2309.94 Microbiology Past 72 Hours 02/04/21 10:50 Stool Occult Blood (ENEDELIA) - Final Stool Occult Blood Positive 02/04/21 03:02 SARS-CoV-2 Antigen (Rapid) - Final Mucosa - Nose Laboratory Tests Past 24 Hrs 02/04/21 02/04/21 02/04/21 01:30 01:30 01:30 WBC 10.1 RBC 3.27 L Hgb 9.7 L Hct 29.5 L MCV 90.2 MCH 29.7 MCHC 32.9 RDW Std Deviation 46.0 H RDW Coeff of Lencho 14.5 Plt Count 195 MPV 10.1 Immature Gran % (Auto) 0.500 Neut % (Auto) 66.5 Lymph % (Auto) 23.9 [place] % (Auto) 5.4 Eos % (Auto) 2.8 Baso % (Auto) 0.9 Absolute Neuts (auto) 6.7 Absolute Lymphs (auto) 2.41 Nucleated RBC % 0 Retic Count Immature Retic Fraction Retic Hgb Equivalent PT INR APTT D-Dimer Quant (PE/DVT) Sodium 137 Potassium 3.4 L Chloride 101 Carbon Dioxide 26.0 Anion Gap 10 BUN 24 H Creatinine 1.70 H Estim Creat Clear Calc 32.94 Est GFR (MDRD) Af Amer 39 L Est GFR (MDRD) Non-Af 33 L BUN/Creatinine Ratio 14.1 Glucose 148 H Lactic Acid 1.7 Calcium 9.1 Iron TIBC Iron Saturation Ferritin Total Bilirubin 0.40 Direct Bilirubin 0.09 AST 22 ALT 24 Alkaline Phosphatase 47 Troponin I < 0.015 B-Natriuretic Peptide Total Protein 6.7 Albumin 3.4 Globulin 3.3 Albumin/Globulin Ratio 1.0 TSH Cortisol Urine Color Urine Clarity Urine pH Ur Specific [place] Urine Protein Urine Glucose (UA) Urine Ketones Urine Occult Blood Urine Nitrite Urine Bilirubin Urine Urobilinogen Ur Leukocyte Esterase Urine RBC Urine WBC Ur Squamous Epith Cells Urine Bacteria Urine Mucus 02/04/21 02/04/21 02/04/21 01:30 01:30 03:10 WBC RBC Hgb Hct MCV MCH MCHC RDW Std Deviation RDW Coeff of [place] Plt Count MPV Immature Gran % (Auto) Neut % (Auto) Lymph % (Auto) [place] % (Auto) Eos % (Auto) Baso % (Auto) Absolute Neuts (auto) Absolute Lymphs (auto) Nucleated RBC % Retic Count Immature Retic Fraction Retic Hgb Equivalent PT 12.8 INR 1.0 APTT 25.1 D-Dimer Quant (PE/DVT) Sodium Potassium Chloride Carbon Dioxide Anion Gap BUN Creatinine Estim Creat Clear Calc Est GFR (MDRD) Af Amer Est GFR (MDRD) Non-Af BUN/Creatinine Ratio Glucose Lactic Acid Calcium Iron TIBC Iron Saturation Ferritin Total Bilirubin Direct Bilirubin AST ALT Alkaline Phosphatase Troponin I B-Natriuretic Peptide 45.7 Total Protein Albumin Globulin Albumin/Globulin Ratio TSH 2.45 Cortisol Urine Color Urine Clarity Urine pH Ur Specific [place] Urine Protein Urine Glucose (UA) Urine Ketones Urine Occult Blood Urine Nitrite Urine Bilirubin Urine Urobilinogen Ur Leukocyte Esterase Urine RBC Urine WBC Ur Squamous Epith Cells Urine Bacteria Urine Mucus 02/04/21 02/04/21 02/04/21 03:10 03:39 04:35 WBC RBC Hgb Hct MCV MCH MCHC RDW Std Deviation RDW Coeff of [place] Plt Count MPV Immature Gran % (Auto) Neut % (Auto) Lymph % (Auto) [place] % (Auto) Eos % (Auto) Baso % (Auto) Absolute Neuts (auto) Absolute Lymphs (auto) Nucleated RBC % Retic Count Immature Retic Fraction Retic Hgb Equivalent PT INR APTT D-Dimer Quant (PE/DVT) 0.78 H* Sodium Potassium Chloride Carbon Dioxide Anion Gap BUN Creatinine Estim Creat Clear Calc Est GFR (MDRD) Af Amer Est GFR (MDRD) Non-Af BUN/Creatinine Ratio Glucose Lactic Acid Calcium Iron 74 TIBC 345 Iron Saturation 21.4 Ferritin 137 Total Bilirubin Direct Bilirubin AST ALT Alkaline Phosphatase Troponin I B-Natriuretic Peptide Total Protein Albumin Globulin Albumin/Globulin Ratio TSH Cortisol Urine Color Yellow Urine Clarity Clear Urine pH 5.0 Ur Specific [place] 1.020 Urine Protein 30 H Urine Glucose (UA) Normal Urine Ketones Negative Urine Occult Blood Negative Urine Nitrite Negative Urine Bilirubin Negative Urine Urobilinogen Normal Ur Leukocyte Esterase 100 H Urine RBC 0-5 SEEN Urine WBC 0-5 SEEN Ur Squamous Epith Cells 0-5 SEEN Urine Bacteria RARE Urine Mucus 0 SEEN 02/04/21 02/04/21 02/04/21 07:05 08:15 08:15 WBC RBC Hgb 10.2 L Hct 31.6 L MCV MCH MCHC RDW Std Deviation RDW Coeff of [place] Plt Count MPV Immature Gran % (Auto) Neut % (Auto) Lymph % (Auto) [place] % (Auto) Eos % (Auto) Baso % (Auto) Absolute Neuts (auto) Absolute Lymphs (auto) Nucleated RBC % Retic Count 1.84 H Immature Retic Fraction 16.50 H Retic Hgb Equivalent 39.2 H PT INR APTT D-Dimer Quant (PE/DVT) Sodium Potassium Chloride Carbon Dioxide Anion Gap BUN Creatinine Estim Creat Clear Calc Est GFR (MDRD) Af Amer Est GFR (MDRD) Non-Af BUN/Creatinine Ratio Glucose Lactic Acid Calcium Iron TIBC Iron Saturation Ferritin Total Bilirubin Direct Bilirubin AST ALT Alkaline Phosphatase Troponin I B-Natriuretic Peptide Total Protein Albumin Globulin Albumin/Globulin Ratio TSH Cortisol 7.40 Urine Color Urine Clarity Urine pH Ur Specific [place] Urine Protein Urine Glucose (UA) Urine Ketones Urine Occult Blood Urine Nitrite Urine Bilirubin Urine Urobilinogen Ur Leukocyte Esterase Urine RBC Urine WBC Ur Squamous Epith Cells Urine Bacteria Urine Mucus Assessment/Plan All Active Problems (Last Reviewed 02/04/21 @ 06:[address] Zeke Olvera MD) Hypothermia (Acute) Dyspnea (Acute) Ankle fracture (Resolved) Bacteremia due to Gram-negative bacteria (Resolved) Closed right ankle fracture (Resolved) Epistaxis (Resolved) Foot fracture, right (Resolved) Heme positive stool (Resolved) History of ischemic colitis (Resolved) Hyperkalemia (Resolved) Hypomagnesemia (Resolved) Hypotension (Resolved) Left lower quadrant abdominal pain (Resolved) Near syncope (Resolved) Toe fracture, right (Resolved) Assessment and Plan: Rose Michaud is a 60 year old obese elderly F who was referred to [facility] related to positives on palliative screening tool for shortness of breath and congestive heart failure. She is currently a patient of Dr. Torres and Dr. Gibson. Extensively discussed Palliative options for symptom management but patient chooses not to have palliative follow at this time. Palliative card left with number to call after discharge if she decides to take advantage of services. Below is a plan if patient chooses to call Palliative at a later date. 1) Dyspnea: Monitor fluid balance. BP and Lasix and coordinate with Dr. Gibson and Dr Torres for titration changes as needed. May address anxiety if that seems to factor into dyspnea. 2) Chronic pain: Would be willing to collaborate with Dr. Torres in managing chronic pain. [place] appears to be effective at this time. Is not being used currently due to BP concerns. Thank you for the opportunity to participate in this patient's care, please do not hesitate to contact [facility] with any further questions or concerns. Palliative direct line is [phone]. Greater than 50% of F2F visit dedicated to education and counseling of palliative care services, medications, comorbid conditions and potential assistance with management, and plan of care moving forward. TIME IN: 12:15PM TIME OUT 1:30
[2021-02-04] MEDS: Acetaminophen 325 MG Tablet 650 MG PO ×2 (15:52→21:48)
[2021-02-04] MEDS: HYDROcodone Bitartrate/Apap 5/325 Tablet PO (16:25)
[2021-02-04] MEDS: Atorvastatin Calcium 40 MG Tablet PO (21:19)
[2021-02-04] MEDS: Venlafaxine HCl 75 MG Tablet 150 MG PO (21:21)
[2021-02-04] MEDS: MELATONIN 3 MG TABLET PO (21:46)
[2021-02-05] VITALS (24 sets, daily range): BP systolic 97–171; BP diastolic 49–85; PULSE 70–106; RESP 12–25; TEMP 36–36.9; O2SAT 94–100
[2021-02-05 04:43] LABS: Absolute Lymphocyte Count 1.64 X10^3/uL (0.83-4.51); Absolute Neutrophil Count 3.9 X10^3/uL (2.0-7.7); Basophil# 0.05 X10^3/uL; Basophil% 0.8 % (0-1); Eosinophil# 0.22 X10^3/uL; Eosinophils% 3.6 % (0-5); Hematocrit 27.8 % (37-47); Hemoglobin 9.1 g/dL (12.0-15.0); Lymphocyte # 1.64 X10^3/ul (4.0); Lymphocyte % 26.8 % (19-41); Mean Corp Hgb Conc 32.7 g/dL (32-36); Mean Corpuscular Hgb 29.8 pg (27.0-32.0); Mean Corpuscular Volume 91.1 fL (81-99); Mean Platelet Vol. 9.5 fl (6.2-12.0); Monocyte# 0.35 X10^3/uL; Monocyte% 5.7 % (0-10); NRBC Flagged by Analyzer 0 % (0-5); Neutrophil # 3.85 X10^3/uL (2.7-7.7); Neutrophil % 62.8 % (47-70); Platelet Count 123 K/mm3 (150-450); RBC Distribution Width CV 14.7 % (11.6-14.6); RBC Distribution Width SD 47.8 fl (35.1-43.9); Red Blood Count 3.05 M/mm3 (4.2-5.4); White Blood Count 6.1 K/mm3 (4.4-11.0)
[2021-02-05 05:00] LABS: Anion Gap 6 (5-15); BUN 19 mg/dL (7-18); Calcium,Total 9.5 mg/dL (8.5-10.1); Chloride 108 mmol/L (98-107); EST Glomerular Filtration Rate 60 mL/min (>60); Est Glom Filt Rate - Afr Amer 73 mL/min (>60); Estimated Creatinine Clearance 56.01 ml/min; Glucose 139 mg/dL (74-106); Potassium 3.6 mmol/L (3.5-5.1); Sodium Level 141 mmol/L (136-145)
--- NOTE | 2021-02-05 07:08 | PN_ITS ---
Subjective: Patient did well overnight. No acute issues were reported. Patient has been able to stay off of pressors for almost 24 hours. Patient states that she feels that she is at her baseline. Patient has been weaned to room air and is tolerating well. Patient denies any bloody bowel movements General: Alert, Oriented x3, Cooperative, No apparent distress, - - Obese. Speaking in full sentences. HEENT: Atraumatic, PERRLA, EOMI, Normocephalic, - - No scleral icterus or injection noted Oral: Moist Mucosa, No Gingival or Mucosal Lesions/ Ulcerations Neck: Supple, No JVD, No Nodes, Trachea Midline Lungs: Clear to auscultation, Normal air movement, No rhonchi, No wheeze, No rales Cardiovascular: Regular rate, Regular Rhythm, Normal S1, Normal S2, No murmurs, No rub noted, No Gallop Abdomen: Bowel Sounds Present, Soft, Non Tender, Non-Distended, Obese Extremities: No clubbing, No cyanosis, No edema Skin: No rashes, No breakdown Musculoskeletal: No Tenderness to Palpation of Joints or Extremities Lymphatic: No Cervical, Supraclavicular, or Inguinal Adenopathy Neurological: Cranial nerves II-XII grossly intact, Neuro grossly intact, Motor Exam 5/5 strength throughout Psych/Mental Status: Alert and oriented to time, place, person, mood and affect Vital Signs Temp Pulse Resp BP Pulse Ox 36.3 C L 91 25 H 171/79 H 95 02/05/21 06:00 02/05/21 07:00 02/05/21 07:00 02/05/21 07:00 02/05/21 07:00 Oxygen Flow Rate (L/min) 2 Oxygen Delivery Method Room Air Weight: 109.9 kg Body Mass Index (BMI) 39.1 Finger Stick Blood Glucose 154 Intake and Output for Last 24 Hours 02/03/21 02/04/21 02/05/21 23:59 23:59 23:59 Intake Total 3699.94 / 3699.94 Output Total 1684 / 1984 1100 / 1100 Balance 2014.94 / 1714.94 -1100 / -1100 Labs (Last 48 Hours) 02/04/21 02/04/21 02/04/21 01:30 01:30 01:30 WBC 10.1 RBC 3.27 L Hgb 9.7 L Hct 29.5 L MCV 90.2 MCH 29.7 MCHC 32.9 RDW Std Deviation 46.0 H RDW Coeff of Lencho 14.5 Plt Count 195 MPV 10.1 Immature Gran % (Auto) 0.500 Neut % (Auto) 66.5 Lymph % (Auto) 23.9 Dubois % (Auto) 5.4 Eos % (Auto) 2.8 Baso % (Auto) 0.9 Absolute Neuts (auto) 6.7 Absolute Lymphs (auto) 2.41 Nucleated RBC % 0 Retic Count Immature Retic Fraction Retic Hgb Equivalent PT INR APTT D-Dimer Quant (PE/DVT) Sodium 137 Potassium 3.4 L Chloride 101 Carbon Dioxide 26.0 Anion Gap 10 BUN 24 H Creatinine 1.70 H Estim Creat Clear Calc 32.94 Est GFR (MDRD) Af Amer 39 L Est GFR (MDRD) Non-Af 33 L BUN/Creatinine Ratio 14.1 Glucose 148 H Lactic Acid 1.7 Calcium 9.1 Iron TIBC Iron Saturation Ferritin Total Bilirubin 0.40 Direct Bilirubin 0.09 AST 22 ALT 24 Alkaline Phosphatase 47 Troponin I < 0.015 B-Natriuretic Peptide Total Protein 6.7 Albumin 3.4 Globulin 3.3 Albumin/Globulin Ratio 1.0 TSH Cortisol Urine Color Urine Clarity Urine pH Ur Specific [place] Urine Protein Urine Glucose (UA) Urine Ketones Urine Occult Blood Urine Nitrite Urine Bilirubin Urine Urobilinogen Ur Leukocyte Esterase Urine RBC Urine WBC Ur Squamous Epith Cells Urine Bacteria Urine Mucus 02/04/21 02/04/21 02/04/21 01:30 01:30 03:10 WBC RBC Hgb Hct MCV MCH MCHC RDW Std Deviation RDW Coeff of Lencho Plt Count MPV Immature Gran % (Auto) Neut % (Auto) Lymph % (Auto) Dubois % (Auto) Eos % (Auto) Baso % (Auto) Absolute Neuts (auto) Absolute Lymphs (auto) Nucleated RBC % Retic Count Immature Retic Fraction Retic Hgb Equivalent PT 12.8 INR 1.0 APTT 25.1 D-Dimer Quant (PE/DVT) Sodium Potassium Chloride Carbon Dioxide Anion Gap BUN Creatinine Estim Creat Clear Calc Est GFR (MDRD) Af Amer Est GFR (MDRD) Non-Af BUN/Creatinine Ratio Glucose Lactic Acid Calcium Iron TIBC Iron Saturation Ferritin Total Bilirubin Direct Bilirubin AST ALT Alkaline Phosphatase Troponin I B-Natriuretic Peptide 45.7 Total Protein Albumin Globulin Albumin/Globulin Ratio TSH 2.45 Cortisol Urine Color Urine Clarity Urine pH Ur Specific [place] Urine Protein Urine Glucose (UA) Urine Ketones Urine Occult Blood Urine Nitrite Urine Bilirubin Urine Urobilinogen Ur Leukocyte Esterase Urine RBC Urine WBC Ur Squamous Epith Cells Urine Bacteria Urine Mucus 02/04/21 02/04/21 02/04/21 03:10 03:39 04:35 WBC RBC Hgb Hct MCV MCH MCHC RDW Std Deviation RDW Coeff of Lencho Plt Count MPV Immature Gran % (Auto) Neut % (Auto) Lymph % (Auto) Dubois % (Auto) Eos % (Auto) Baso % (Auto) Absolute Neuts (auto) Absolute Lymphs (auto) Nucleated RBC % Retic Count Immature Retic Fraction Retic Hgb Equivalent PT INR APTT D-Dimer Quant (PE/DVT) 0.78 H* Sodium Potassium Chloride Carbon Dioxide Anion Gap BUN Creatinine Estim Creat Clear Calc Est GFR (MDRD) Af Amer Est GFR (MDRD) Non-Af BUN/Creatinine Ratio Glucose Lactic Acid Calcium Iron 74 TIBC 345 Iron Saturation 21.4 Ferritin 137 Total Bilirubin Direct Bilirubin AST ALT Alkaline Phosphatase Troponin I B-Natriuretic Peptide Total Protein Albumin Globulin Albumin/Globulin Ratio TSH Cortisol Urine Color Yellow Urine Clarity Clear Urine pH 5.0 Ur Specific [place] 1.020 Urine Protein 30 H Urine Glucose (UA) Normal Urine Ketones Negative Urine Occult Blood Negative Urine Nitrite Negative Urine Bilirubin Negative Urine Urobilinogen Normal Ur Leukocyte Esterase 100 H Urine RBC 0-5 SEEN Urine WBC 0-5 SEEN Ur Squamous Epith Cells 0-5 SEEN Urine Bacteria RARE Urine Mucus 0 SEEN 02/04/21 02/04/21 02/04/21 07:05 08:15 08:15 WBC RBC Hgb 10.2 L Hct 31.6 L MCV MCH MCHC RDW Std Deviation RDW Coeff of Lencho Plt Count MPV Immature Gran % (Auto) Neut % (Auto) Lymph % (Auto) Dubois % (Auto) Eos % (Auto) Baso % (Auto) Absolute Neuts (auto) Absolute Lymphs (auto) Nucleated RBC % Retic Count 1.84 H Immature Retic Fraction 16.50 H Retic Hgb Equivalent 39.2 H PT INR APTT D-Dimer Quant (PE/DVT) Sodium Potassium Chloride Carbon Dioxide Anion Gap BUN Creatinine Estim Creat Clear Calc Est GFR (MDRD) Af Amer Est GFR (MDRD) Non-Af BUN/Creatinine Ratio Glucose Lactic Acid Calcium Iron TIBC Iron Saturation Ferritin Total Bilirubin Direct Bilirubin AST ALT Alkaline Phosphatase Troponin I B-Natriuretic Peptide Total Protein Albumin Globulin Albumin/Globulin Ratio TSH Cortisol 7.40 Urine Color Urine Clarity Urine pH Ur Specific [place] Urine Protein Urine Glucose (UA) Urine Ketones Urine Occult Blood Urine Nitrite Urine Bilirubin Urine Urobilinogen Ur Leukocyte Esterase Urine RBC Urine WBC Ur Squamous Epith Cells Urine Bacteria Urine Mucus 02/05/21 02/05/21 04:35 04:35 WBC 6.1 RBC 3.05 L Hgb 9.1 L Hct 27.8 L MCV 91.1 MCH 29.8 MCHC 32.7 RDW Std Deviation 47.8 H RDW Coeff of Lencho 14.7 H Plt Count 123 L MPV 9.5 Immature Gran % (Auto) 0.300 Neut % (Auto) 62.8 Lymph % (Auto) 26.8 Dubois % (Auto) 5.7 Eos % (Auto) 3.6 Baso % (Auto) 0.8 Absolute Neuts (auto) 3.9 Absolute Lymphs (auto) 1.64 Nucleated RBC % 0 Retic Count Immature Retic Fraction Retic Hgb Equivalent PT INR APTT D-Dimer Quant (PE/DVT) Sodium 141 Potassium 3.6 Chloride 108 H Carbon Dioxide 27.0 Anion Gap 6 BUN 19 H Creatinine 1.00 Estim Creat Clear Calc 56.01 Est GFR (MDRD) Af Amer 73 Est GFR (MDRD) Non-Af 60 BUN/Creatinine Ratio 19.0 Glucose 139 H Lactic Acid Calcium 9.5 Iron TIBC Iron Saturation Ferritin Total Bilirubin Direct Bilirubin AST ALT Alkaline Phosphatase Troponin I B-Natriuretic Peptide Total Protein Albumin Globulin Albumin/Globulin Ratio TSH Cortisol Urine Color Urine Clarity Urine pH Ur Specific [place] Urine Protein Urine Glucose (UA) Urine Ketones Urine Occult Blood Urine Nitrite Urine Bilirubin Urine Urobilinogen Ur Leukocyte Esterase Urine RBC Urine WBC Ur Squamous Epith Cells Urine Bacteria Urine Mucus Microbiology 02/04/21 10:50 Stool Stool Occult Blood (ENEDELIA) - Final Occult Blood Positive 02/04/21 03:02 Mucosa - Nose SARS-CoV-2 Antigen (Rapid) - Final Medical Necessity - Tobacco Use Smoking Status: Former smoker Assessment/Plan All Active Problems (Last Reviewed 02/04/21 @ 06:[address] Zeke Olvera MD) Hypothermia (Acute) Dyspnea (Acute) Ankle fracture (Resolved) Bacteremia due to Gram-negative bacteria (Resolved) Closed right ankle fracture (Resolved) Epistaxis (Resolved) Foot fracture, right (Resolved) Heme positive stool (Resolved) History of ischemic colitis (Resolved) Hyperkalemia (Resolved) Hypomagnesemia (Resolved) Hypotension (Resolved) Left lower quadrant abdominal pain (Resolved) Near syncope (Resolved) Toe fracture, right (Resolved) RECOMMENDATIONS: 1. Discussed with cardiology regarding blood pressure medications 2. Consider reinitiation of Coreg 3. Walking oximetry prior to discharge 4. Outpatient work-up for occult GI bleeding 5. Hemodynamically stable on room air. Will sign off from a critical care perspective IMPRESSIONS: 1. Hypotension Clinical course is suggestive of unintentional medication overdose leading to hypotension. Patient was able to come off of pressors without complications. We will need to discuss with cardiology about response to Entresto. Reasonable to continue Coreg given comorbidities. Patient has had a drop in hemoglobin, but did not believe that this is the etiology of presenting hypotension. 2. Hypoxia Patient was placed on BiPAP for a brief period of time. Clinical suspicion for an element of obstructive sleep apnea leading to upper airway obstruction and decreased saturations. Walking oximetry prior to discharge. Patient would benefit from a sleep work-up as an outpatient. 3. Acute kidney injury Improving. Baseline creatinine of approximately 0.8. Presented with creatinine of 1.7. Clinical suspicion for prerenal etiology. Patient did receive significant fluid resuscitation in the ER. PAMELA/ARB is held at this time. 4. Chronic systolic congestive heart failure/osteoporosis/anemia/history of CVA/obesity Complicates care, management, recovery and prognosis. Patient does not appear to be in a CHF exacerbation at this time. Outpatient work-up for occult GI bleed would be appropriate. Anticipate some of the following hemoglobin is secondary to hemodilution as all blood lines are decreased from presentation. Inpatient E&M: 11520 Subs Hosp L2
[2021-02-05] MEDS: Levothyroxine 88 MCG Tablet PO (07:20)
[2021-02-05] MEDS: Dicyclomine 10 MG Capsule 20 MG PO ×3 (07:21→16:44)
[2021-02-05] MEDS: Multivitamins,Therapeutic Tablet 1 TABLET PO (08:48)
[2021-02-05] MEDS: Calcium Carb/Vitamin D 1 TABLET Tablet PO (08:48)
[2021-02-05] MEDS: Aspirin E.C. 81 MG Tablet PO (08:48)
[2021-02-05] MEDS: HYDROcodone Bitartrate/Apap 5/325 Tablet PO ×2 (08:52→21:36)
--- NOTE | 2021-02-05 10:09 | PCM.PN.HOSP ---
Patient Problems: Active and Suspected Problems (Last Reviewed 02/04/21 @ 06:[address] Zeke Olvera MD) Hypotension (Suspected) Hypothermia (Acute) Dyspnea (Acute) Subjective: Doing well, no issues overnight. She denies any lightheadedness or dizziness currently and her blood pressure is stable and she is off pressor support Vitals/I&O's: Vital Signs Temp Pulse Resp BP Pulse Ox 97.4 F L 91 25 H 171/79 H 95 02/05/21 06:00 02/05/21 07:00 02/05/21 07:00 02/05/21 07:00 02/05/21 07:00 Oxygen Flow Rate (L/min) 2 Oxygen Delivery Method Room Air Weight: 242 lb 4.608 oz Body Mass Index (BMI) 39.1 Finger Stick Blood Glucose 154 Intake and Output for Last 24 Hours 02/03/21 02/04/21 02/05/21 23:59 23:59 23:59 Intake Total 3699.94 / 3699.94 Output Total 1684 / 1984 1100 / 1100 Balance 2014.94 / 1714.94 -1100 / -1100 General: Alert, Oriented x3, Cooperative, No apparent distress HEENT: Atraumatic, PERRLA, EOMI, Normocephalic Oral: Moist Mucosa Neck: Supple, No JVD, Thyroid Normal Size and Texture Lungs: Clear to auscultation, Normal air movement, No rhonchi, No wheeze, No rales Cardiovascular: Regular rate, Regular Rhythm, Normal S1, Normal S2, No murmurs Abdomen: Soft, Non Tender, Non-Distended, No Hepato-splenomegaly Extremities: No edema, Capillary Refill Less than 3 Seconds Skin: No rashes, No breakdown Neurological: Neuro grossly intact, Sensory exam intact to light touch and pain Psych/Mental Status: Normal Affect, Appropriate Microbiology Past 72 Hours 02/04/21 04:35 Urine, Random Urine Culture - Preliminary Culture exhibits no growth. 02/04/21 10:50 Stool Stool Occult Blood (ENEDELIA) - Final Occult Blood Positive 02/04/21 03:02 Mucosa - Nose SARS-CoV-2 Antigen (Rapid) - Final Laboratory Results 02/05/21 04:35: Sodium 141, Potassium 3.6, Chloride 108 H, Carbon Dioxide 27.0, Anion Gap 6, BUN 19 H, Creatinine 1.00, Estim Creat Clear Calc 56.01, Est GFR (MDRD) Af Amer 73, Est GFR (MDRD) Non-Af 60, BUN/Creatinine Ratio 19.0, Glucose 139 H, Calcium 9.5 02/05/21 04:35: WBC 6.1, RBC 3.05 L, Hgb 9.1 L, Hct 27.8 L, MCV 91.1, MCH 29.8, MCHC 32.7, RDW Std Deviation 47.8 H, RDW Coeff of Lencho 14.7 H, Plt Count 123 L, MPV 9.5, Immature Gran % (Auto) 0.300, Neut % (Auto) 62.8, Lymph % (Auto) 26.8, Charles % (Auto) 5.7, Eos % (Auto) 3.6, Baso % (Auto) 0.8, Absolute Neuts (auto) 3.9, Absolute Lymphs (auto) 1.64, Nucleated RBC % 0 Current Medications Acetaminophen (Acetaminophen 325 Mg Tablet) 650 mg PO Q6H PRN PRN PRN Reason: Pain Score 1-10/Temp > 100.7 F Last Admin: 02/04/21 21:48 Dose: 650 mg Documented by: Hydrocodone Bitart/Acetaminophen (Hydrocodone Bitartrate/Apap 5/325 Tablet) 1 tablet PO BID PRN PRN PRN Reason: Pain Score 1-10 Last Admin: 02/05/21 08:52 Dose: 1 tablet Documented by: Acyclovir (Acyclovir 200 Mg Capsule) 400 mg PO BID [facility] Last Admin: 02/04/21 21:20 Dose: 400 mg Documented by: Albuterol Sulfate (Albuterol 2.5 Mg/3 Ml Vial.Neb.) 2.5 mg INHALATION Q2H PRN PRN PRN Reason: SOB/Wheezing Alendronate Sodium (Alendronate Sodium 70 Mg Tablet) 70 mg PO Tu@0700 [facility] Ascorbic Acid (Ascorbic Acid 500 Mg Tablet) 500 mg PO DAILY [facility] Last Admin: 02/04/21 08:39 Dose: 500 mg Documented by: Aspirin (Aspirin E.C. 81 Mg Tablet) 81 mg PO DAILY@0800 [facility] Last Admin: 02/05/21 08:48 Dose: 81 mg Documented by: Atorvastatin Calcium (Atorvastatin Calcium 40 Mg Tablet) 40 mg PO QHS [facility] Last Admin: 02/04/21 21:19 Dose: 40 mg Documented by: Calcium/Vitamin D (Calcium Carb/Vitamin D 1 Tablet Tablet) [facility] Last Admin: 02/05/21 08:48 Dose: 1 tablet Documented by: Carvedilol (Carvedilol 12.5 Mg Tablet) 12.5 mg PO BID [facility] Dicyclomine HCl (Dicyclomine 10 Mg Capsule) 20 mg PO TIDAC [facility] Last Admin: 02/05/21 07:21 Dose: 20 mg Documented by: Duloxetine HCl (Duloxetine Hcl 60 Mg Capsule) 60 mg PO BID [facility] Last Admin: 02/04/21 21:18 Dose: 60 mg Documented by: Enoxaparin Sodium (Enoxaparin 40 Mg/0.4 Ml Syringe) 40 mg SC DAILY [facility] Last Admin: 02/04/21 08:40 Dose: 40 mg Documented by: Fluticasone Propionate (Fluticasone 0.05% 1 [place] Nasal.Sry) 2 spray NASAL DAILY [facility] Last Admin: 02/04/21 10:17 Dose: Not Given Documented by: Furosemide (Furosemide 40 Mg Tablet) 40 mg PO DAILY [facility] Norepinephrine Bitartrate 8 mg (/ Sodium Chloride) 250 mls @ 9.375 mls/hr CONT INF .[id number] [facility]; Protocol Last Admin: 02/04/21 07:35 Dose: Not Given Documented by: Sodium Chloride () 250 mls @ 15 mls/hr IV .[id number] PRN PRN Reason: Saline Flush Sodium Chloride () 250 mls @ 15 mls/hr IV .[id number] PRN PRN Reason: Additional IVPB Infusion Levothyroxine Sodium (Levothyroxine 88 Mcg Tablet) 88 mcg PO DAILY@0600 [facility] Last Admin: 02/05/21 07:20 Dose: 88 mcg Documented by: Linagliptin (Linagliptin 5 Mg Tablet) 5 mg PO DAILY [facility] Last Admin: 02/04/21 08:39 Dose: 5 mg Documented by: Loperamide HCl (Loperamide 2 Mg Capsule) 2 mg PO Q4H PRN PRN PRN Reason: diarrhea Loratadine (Loratadine 10 Mg Tablet) 10 mg PO DAILY PRN PRN Reason: ALLERGIES Magnesium Chloride (Magnesium Chloride 64 Mg Delay Rel.Tablet) 128 mg PO DAILY [facility] Last Admin: 02/04/21 08:39 Dose: 128 mg Documented by: Melatonin (Melatonin 3 Mg Tablet) 3 mg PO QHS PRN PRN PRN Reason: INSOMNIA Last Admin: 02/04/21 21:46 Dose: 3 mg Documented by: Multivitamins (Multivitamins,Therapeutic Tablet) [facility] Last Admin: 02/05/21 08:48 Dose: 1 tablet Documented by: Ondansetron HCl (Ondansetron 4 Mg/2 Ml Vial) 4 mg IV Q8H PRN PRN PRN Reason: NAUSEA/VOMITING Pantoprazole Sodium (Pantoprazole Sodium 40 Mg Tablet) 40 mg PO BID [facility] Last Admin: 02/04/21 21:20 Dose: 40 mg Documented by: Sacubitril/Valsartan (Sacubitril/Valsartan 49-51 Mg Tablet) 1 each PO BID [facility] Sodium Chloride (0.9% Saline Lock 10 Ml Syringe) 10 - 40 ml IV UD PRN PRN Reason: SALINE FLUSH Last Admin: 02/04/21 08:36 Dose: 20 ml Documented by: Tizanidine HCl (Tizanidine Hcl 2 Mg Tablet) 4 mg PO Q8H PRN PRN Reason: MUSCLE SPASM Venlafaxine HCl (Venlafaxine Hcl 75 Mg Tablet) 75 mg PO DAILY [facility] Last Admin: 02/04/21 10:16 Dose: 75 mg Documented by: Venlafaxine HCl (Venlafaxine Hcl 75 Mg Tablet) 150 mg PO QHS [facility] Last Admin: 02/04/21 21:21 Dose: 150 mg Documented by: STROKE Vital Signs/Narrative: Vital Signs Pulse Resp BP Pulse Ox 02/05/21 07:00 91 25 H 171/79 H 95 Medical Necessity - Tobacco Use Smoking Status: Former smoker Assessment/Plan All Active Problems (Last Reviewed 02/04/21 @ 06:[address] Zeke Olvera MD) Hypothermia (Acute) Dyspnea (Acute) Ankle fracture (Resolved) Bacteremia due to Gram-negative bacteria (Resolved) Closed right ankle fracture (Resolved) Epistaxis (Resolved) Foot fracture, right (Resolved) Heme positive stool (Resolved) History of ischemic colitis (Resolved) Hyperkalemia (Resolved) Hypomagnesemia (Resolved) Hypotension (Resolved) Left lower quadrant abdominal pain (Resolved) Near syncope (Resolved) Toe fracture, right (Resolved) 1. Hypotension/chronic systolic CHF/HTN/HLD/ARTIE/hypoxia -Recently started on Entresto and this is likely what led to her episode of hypotension -Her blood pressure medications were discontinued and she had to be intermittently on pressor support however now she is doing very well therefore we will restart her Entresto, as well as her Lasix and will decrease her Coreg from 25 mg twice daily to 12.5 mg twice daily. If her blood pressure remained stable can consider transfer to PCU today -Continue with aspirin, statin -Hypoxia is resolved, will obtain an ambulatory pulse ox prior to discharge 2. Hypothyroidism -Stable -Continue with Synthroid 3. Anxiety/depression/IBS -Stable -Continue with amitriptyline, Cymbalta, Bentyl and Effexor 4. DM 2 -Accu-Cheks AC at bedtime -Continue with Tradjenta 5. Osteoporosis -Stable -Continue with Fosamax DVT: Lovenox Inpatient E&M: 36090 Subs Hosp L2
[2021-02-05] MEDS: Carvedilol 12.5 MG Tablet PO ×2 (10:48→21:36)
[2021-02-05] MEDS: DULoxetine Hcl 60 MG Capsule PO ×2 (10:48→21:35)
[2021-02-05] MEDS: Venlafaxine HCl 75 MG Tablet PO (10:48)
[2021-02-05] MEDS: SACUBITRIL/VALSARTAN 49-51 MG TABLET 1 EACH PO ×2 (10:49→21:35)
[2021-02-05] MEDS: Magnesium Chloride 64 MG Delay Rel.Tablet 128 MG PO (10:49)
[2021-02-05] MEDS: Furosemide 40 MG Tablet PO (10:49)
[2021-02-05] MEDS: LINAGLIPTIN 5 MG TABLET PO (10:49)
[2021-02-05] MEDS: Enoxaparin 40 MG/0.4 ML Syringe SC (10:49)
[2021-02-05] MEDS: Acyclovir 200 MG Capsule 400 MG PO ×2 (10:49→21:39)
[2021-02-05] MEDS: Pantoprazole Sodium 40 MG Tablet PO ×2 (10:49→21:38)
[2021-02-05] MEDS: Ascorbic Acid 500 MG Tablet PO (10:50)
[2021-02-05] MEDS: Fluticasone 0.05% 1 SPRAY NASAL.SRY 2 SPRAY NASAL (10:50)
--- NOTE | 2021-02-05 12:28 | CASEMGMT ---
RN CM NOTE: Per Dr Rodriguez PN, pt will need ambulatory pulse ox prior to discharge. RN CM to room to discuss with pt possibility of need for O2 @ discharge. Discussed options of DME co and pt provided with list of local DME co. Pt prefers [employer]. Green sheet placed w/instructions for setting up home O2 if pt qualifies for it. Cathryn GONZALEZN RN CM
[2021-02-05] MEDS: Venlafaxine HCl 75 MG Tablet 150 MG PO (21:35)
[2021-02-05] MEDS: Atorvastatin Calcium 40 MG Tablet PO (21:36)
[2021-02-05] MEDS: MELATONIN 3 MG TABLET PO (21:38)
[2021-02-06 03:00] VITALS: PULSE 82
[2021-02-06 03:21] VITALS: BP 97/51; PULSE 72; RESP 16; TEMP 36.7; O2SAT 97
[2021-02-06 05:11] LABS: Absolute Lymphocyte Count 1.96 X10^3/uL (0.83-4.51); Absolute Neutrophil Count 3.4 X10^3/uL (2.0-7.7); Basophil# 0.04 X10^3/uL; Basophil% 0.7 % (0-1); Eosinophil# 0.24 X10^3/uL; Eosinophils% 3.9 % (0-5); Hematocrit 30.8 % (37-47); Hemoglobin 9.7 g/dL (12.0-15.0); Lymphocyte # 1.96 X10^3/ul (4.0); Lymphocyte % 32.2 % (19-41); Mean Corp Hgb Conc 31.5 g/dL (32-36); Mean Corpuscular Hgb 29.3 pg (27.0-32.0); Mean Corpuscular Volume 93.1 fL (81-99); Mean Platelet Vol. 9.8 fl (6.2-12.0); Monocyte# 0.41 X10^3/uL; Monocyte% 6.7 % (0-10); NRBC Flagged by Analyzer 0 % (0-5); Neutrophil # 3.41 X10^3/uL (2.7-7.7); Neutrophil % 56.2 % (47-70); Platelet Count 145 K/mm3 (150-450); RBC Distribution Width CV 15.1 % (11.6-14.6); RBC Distribution Width SD 50.4 fl (35.1-43.9); Red Blood Count 3.31 M/mm3 (4.2-5.4); White Blood Count 6.1 K/mm3 (4.4-11.0)
[2021-02-06 05:27] LABS: Anion Gap 9 (5-15); BUN 19 mg/dL (7-18); BUN/Creat Ratio 19.1 RATIO (10-20); Calcium,Total 9.6 mg/dL (8.5-10.1); Chloride 101 mmol/L (98-107); Creatinine, Serum 0.99 mg/dL (0.55-1.02); EST Glomerular Filtration Rate 61 mL/min (>60); Est Glom Filt Rate - Afr Amer 73 mL/min (>60); Estimated Creatinine Clearance 56.57 ml/min; Glucose 120 mg/dL (74-106); Potassium 3.4 mmol/L (3.5-5.1); Sodium Level 138 mmol/L (136-145)
[2021-02-06] MEDS: Levothyroxine 88 MCG Tablet PO (06:44)
[2021-02-06] MEDS: Dicyclomine 10 MG Capsule 20 MG PO (06:44)
[2021-02-06 07:00] VITALS: PULSE 86
[2021-02-06 07:26] VITALS: O2SAT 95
--- NOTE | 2021-02-06 09:00 | DCINST_ITS ---
- Discharge Diagnoses Current Active Problems: Current Active and Chronic Problems (Last Reviewed 02/04/21 @ 06:[address] Zeke Olvera MD) Hypothermia (Acute) Dyspnea (Acute) Dyspnea on minimal exertion (Chronic) Atherosclerosis of coronary artery without angina pectoris (Chronic) Non-ischemic cardiomyopathy (Chronic) Chronic systolic (congestive) heart failure (Chronic) Essential hypertension (Chronic) Hyperlipidemia (Chronic) History of CVA (cerebrovascular accident) (Chronic 2017) There are old lacunar infarct defects in the cerebellar hemispheres. RIGHT parietal cortex and the bilateral medial occipital cortex suggesting recent cortical infarcts possibly due to thromboembolism. MRI 11/2017; Old deep white matter infarct in right parietal lobe and chronic ischemic changes with cerebellum MRI 08/2019 Carotid artery stenosis (Chronic) Right IC 50-69 % Left IC < 50% U/S 11/2017 You will use the following diet at home:: Calorie/Carbohydrate Controlled (specify 1200, 1400, etc), Cardiac, Fluid restricted (specify 2000 mls, 1500 mls) - 1500 Your food should be the consistency of: Regular Your liquids should be the consistency of: Regular/Thin Discharge Activity: Return to Normal Activity Call your doctor if you observe: Fever of 101 or Higher, Shortness of breath, Dizziness, Fainting spells, Swelling in the ankles, Chest pain, Increased palpitations (irregular heartbeat) Allergies/Adverse Reactions: Allergies adhesive Allergy (Verified 02/04/21 02:49) skin irritation amlodipine [From Norvasc] Allergy (Verified 02/04/21 02:49) tachycardia hydromorphone HCl [From Dilaudid] Allergy (Verified 02/04/21 02:49) Itching sulfamethoxazole [From Bactrim] Allergy (Verified 02/04/21 02:49) made my cold sore huge trimethoprim [From Bactrim] Allergy (Verified 02/04/21 02:49) made my cold sore huge Medications to take at Discharge Levothyroxine Sodium [Levoxyl] 88 mcg PO DAILY 11/17/17 Multivitamin [Multiple Vitamins] 1 ea PO DAILY 12/29/17 Pantoprazole Sodium [Protonix] 40 mg PO BID 03/29/19 Amitriptyline HCl 25 mg PO QHS 08/10/19 Alendronate Sodium [Fosamax] 70 mg PO Q7D@0700 #4 tab 08/25/19 rosuvastatin 20 mg tablet 20 mg PO QHS 08/25/19 sitagliptin 50 mg tablet 50 mg PO DAILY 09/04/19 Hydrocodone Bitart/Apap 5-325 [[place] 5/325] 1 tab PO BID 09/10/20 Dicyclomine HCl [Bentyl] 20 mg PO TIDAC 10/19/20 Duloxetine Hcl [Cymbalta] 60 mg PO BID 10/19/20 Valacyclovir HCl [Valacyclovir] 500 mg PO DAILY 10/19/20 Aspirin E.C. [Ecotrin] 81 mg PO DAILY@0800 #30 tab 01/17/21 fluticasone propionate 50 mcg/actuation nasal spray,suspension 2 spray INTRANASAL DAILY 01/26/21 furosemide 40 mg tablet 40 mg PO DAILY tablet 01/26/21 tizanidine 4 mg tablet 4 mg PO Q8H PRN 01/26/21 ascorbate calcium (vitamin C) 500 mg tablet 500 mg PO DAILY 01/27/21 calcium carbonate 600 mg (1,500 mg)-vitamin D3 500 unit capsule 1 cap PO DAILY 01/27/21 cetirizine 10 mg capsule 10 mg PO DAILY PRN 01/27/21 magnesium oxide 400 mg PO DAILY 01/27/21 sacubitril 49 mg-valsartan 51 mg tablet 1 tablet PO BID #60 tablet 01/27/21 Venlafaxine HCl [Effexor] 75 mg PO BID 02/04/21 Carvedilol [Coreg (Beta Eleni)] 12.5 mg PO BID #60 tablet 02/06/21 The following prescriptions were given: Carvedilol [Coreg (Beta Eleni)] 12.5 mg PO BID #60 tablet Transmission Status: Pending to [facility] Primary Care Physician: Brandon Torres DO [Primary Care Provider] - Please follow up with your Primary Care Physician in: 3-5 days Test Results: Test results from this visit will be discussed in further detail at your follow- up appointment, if applicable. Please Follow Up With: Cardiology When: As scheduled
[2021-02-06 09:16] VITALS: BP 137/88; PULSE 93; RESP 18; TEMP 36.6; O2SAT 98
[2021-02-06] MEDS: HYDROcodone Bitartrate/Apap 5/325 Tablet PO (09:16)
[2021-02-06] MEDS: Magnesium Chloride 64 MG Delay Rel.Tablet 128 MG PO (09:17)
[2021-02-06] MEDS: Acyclovir 200 MG Capsule 400 MG PO (09:17)
[2021-02-06] MEDS: LINAGLIPTIN 5 MG TABLET PO (09:17)
[2021-02-06] MEDS: Calcium Carb/Vitamin D 1 TABLET Tablet PO (09:17)
[2021-02-06] MEDS: Pantoprazole Sodium 40 MG Tablet PO (09:17)
[2021-02-06] MEDS: SACUBITRIL/VALSARTAN 49-51 MG TABLET 1 EACH PO (09:17)
[2021-02-06] MEDS: Ascorbic Acid 500 MG Tablet PO (09:17)
[2021-02-06] MEDS: Multivitamins,Therapeutic Tablet 1 TABLET PO (09:18)
[2021-02-06] MEDS: Venlafaxine HCl 75 MG Tablet PO (09:18)
[2021-02-06] MEDS: Aspirin E.C. 81 MG Tablet PO (09:18)
[2021-02-06] MEDS: Carvedilol 12.5 MG Tablet PO (09:18)
[2021-02-06] MEDS: DULoxetine Hcl 60 MG Capsule PO (09:18)
[2021-02-06] MEDS: Furosemide 40 MG Tablet PO (09:18)
[2021-02-06] MEDS: Fluticasone 0.05% 1 SPRAY NASAL.SRY 2 SPRAY NASAL (09:18)
[2021-02-06] MEDS: Enoxaparin 40 MG/0.4 ML Syringe SC (09:18)
[2021-02-06 10:36] VITALS: O2SAT 94; O2SAT 97
--- NOTE | 2021-02-06 11:15 | DS.PCM_ITS ---
Discharge Date and Diagnosis - Problem List Patient Problems: Active and Suspected Problems (Last Reviewed 02/04/21 @ 06:[address] Zeke Olvera MD) Hypotension (Suspected) Hypothermia (Acute) Dyspnea (Acute) Date of Admission: 02/04/21 Date of Discharge: 02/06/21 - Primary Discharge Diagnosis Acute Problems: Active Problems (Last Reviewed 02/04/21 @ 06:[address] Zeke Olvera MD) Hypothermia (Acute) Dyspnea (Acute) Suspected Problems: Suspected Problems (Last Reviewed 02/04/21 @ 06:[address] Zeke Olvera MD) Hypotension (Suspected) - Secondary Discharge Diagnosis Chronic Problems: Chronic Problems (Last Reviewed 02/04/21 @ 06:[address] Zeke Olvera MD) Dyspnea on minimal exertion (Chronic) Atherosclerosis of coronary artery without angina pectoris (Chronic) Non-ischemic cardiomyopathy (Chronic) Chronic systolic (congestive) heart failure (Chronic) Essential hypertension (Chronic) Hyperlipidemia (Chronic) History of CVA (cerebrovascular accident) (Chronic 2017) There are old lacunar infarct defects in the cerebellar hemispheres. RIGHT parietal cortex and the bilateral medial occipital cortex suggesting recent cortical infarcts possibly due to thromboembolism. MRI 11/2017; Old deep white matter infarct in right parietal lobe and chronic ischemic changes with cerebellum MRI 08/2019 Carotid artery stenosis (Chronic) Right IC 50-69 % Left IC < 50% U/S 11/2017 Hospital Course and Treatment Imaging Results: Clinical Impression(s) from Imaging Studies Brain CT 02/04/21 02:57 IMPRESSION: Normal unenhanced CT scan of the brain. Electronically Signed: Maldonado Neumann DO at 3:42 EDT Tel , Service support , Chest X-Ray 02/04/21 02:57 IMPRESSION: Normal x-ray examination of the chest. Electronically Signed: Maldonado Neumann DO at 3:37 EDT Tel , Service support , Chest CTA 02/04/21 04:01 IMPRESSION: Normal CTA chest examination, without a demonstrated pulmonary embolism or arterial dissection. Lungs are adequately inflated and clear. Electronically Signed: Maldonado Neumann DO at 4:53 EDT Tel , Service support , Consults: ICU Operations: None Procedures: None Summary of Care Provided: Per HPI: The patient is a 60 year old F with a significant history of CVA; heart failure with reduced ejection fraction who presents emergency department with dyspnea that started few hours before presentation. Patient woke up from her sleep because of abdominal bloating. She report that her abdominal bloating comes on and off and it is chronic. When she woke up she also began to have shortness of breath that progressed. Also she felt lightheaded. She attempted to walk and felt very unsteady on her feet. Subsequently, she called the squad and she was brought to the emergency department. Further she had right frontal headache that has since disappeared. She also had right numbness and weakness that lasted for about 1 hour. Recently she was diagnosed with heart failure with reduced ejection fraction and was started on Lasix. She also started taking Entresto in the past 24 hours prior to presentation. So far she has had 2 doses of Entresto. On presentation at the emergency department she was placed on BiPAP. However, when she was taking to radiology where a CTA was done the patient was transitioned from BiPAP to nasal cannula oxygen. Even on low-dose nasal cannula oxygen her oxygen saturation was close to 100%. Hospital Course: 1. Hypotension secondary to medication interaction/chronic systolic CHF/HTN/HLD/ARTIE/[id number]-[id number]-ejmo-old female with history of chronic systolic CHF who was recently started on Entresto presented with lightheadedness and dizziness as well as shortness of breath. I feel that the shortness of breath is likely secondary to the fact that she is very hesitant and resistant to taking her Lasix, she thinks that the Lasix is the main reason why she feels the way she does. I did discuss with her that it is likely the addition of Entresto to her blood pressure medications that cause this episode. On admission she was transiently hypoxic and CTA was negative which was obtained because of an elevated D-dimer. She was quickly weaned to room air and had no further issues with her oxygenation. Her blood pressure issues resolved after being on pressors intermittently over her first night. She was restarted on all of her blood pressure medication except for the Coreg which was started at 12.5 mg p.o. twice daily instead of the 25 mg p.o. twice daily. She tolerated her blood pressure medications and is asymptomatic. She had no hypoxia on her ambulatory pulse ox and I discussed with her the possibility for discharge today. I also discussed with her the positive stool occult and she says that that is chronic for her but she has not noticed any bloody stools and she has had multiple colonoscopies and EGDs for this exact issue and nothing is ever been found. She expressed understanding the risk and benefits of going home and wanted to go home today. She will resume her blood pressure medications and she was given a prescription for her Coreg to be at 12.5 mg p.o. twice daily and she will need to follow-up with cardiology to have this slowly titrated back up to 25 mg p.o.twice daily as able. 2. Hypothyroidism, anxiety, depression, irritable bowel syndrome, type 2 diabetes, osteoporosis are all chronic medical conditions which complicate her care. Her home medications were continued where appropriate Patient Problems: Active and Suspected Problems (Last Reviewed 02/04/21 @ 06:[address] Zeke Olvera MD) Hypotension (Suspected) Hypothermia (Acute) Dyspnea (Acute) - Physical Exam Vitals/I&O's: Vital Signs Temp Pulse Resp BP Pulse Ox 97.9 F 93 18 137/88 H 94 02/06/21 09:16 02/06/21 09:16 02/06/21 09:16 02/06/21 09:16 02/06/21 10:36 Oxygen Flow Rate (L/min) [ 0 AMBULATING on Room Air] Oxygen Flow Rate (L/min) [At 0 REST on Room Air] Oxygen Flow Rate (L/min) 2 Oxygen Delivery Method Room Air Weight: 235 lb 14.314 oz Body Mass Index (BMI) 39.1 Finger Stick Blood Glucose 154 Intake and Output for Last 24 Hours 02/04/21 02/05/21 02/06/21 23:59 23:59 23:59 Intake Total 3699.94 / 3699.94 75 / 75 50 / 50 Output Total 1684 / 1984 3825 / 3825 Balance / 1713. -3750 / -3750 50 / 50 General: Alert, Oriented x3, Cooperative, No apparent distress HEENT: Atraumatic, PERRLA, EOMI, Normocephalic Oral: Moist Mucosa Neck: Supple, No JVD, Thyroid Normal Size and Texture Lungs: Clear to auscultation, Normal air movement, No rhonchi, No wheeze, No rales Cardiovascular: Regular rate, Regular Rhythm, Normal S1, Normal S2, No murmurs Abdomen: Soft, Non Tender, Non-Distended, No Hepato-splenomegaly Extremities: No edema, Capillary Refill Less than 3 Seconds Skin: No rashes, No breakdown Neurological: Neuro grossly intact, Sensory exam intact to light touch and pain Psych/Mental Status: Normal Affect, Appropriate Microbiology Past 72 Hours 02/04/21 04:35 Urine, Random Urine Culture - Final Culture exhibits no growth. 02/04/21 01:30 Blood Culture (Wb) #2 - Anticubital Left Blood Culture - Preliminary No growth in 48 hours. 02/04/21 01:30 Blood Culture (Wb) - Left Forearm Blood Culture - Preliminary No growth in 48 hours. 02/04/21 10:50 Stool Stool Occult Blood (ENEDELIA) - Final Occult Blood Positive 02/04/21 03:02 Mucosa - Nose SARS-CoV-2 Antigen (Rapid) - Final Laboratory Results 02/06/21 04:50: WBC 6.1, RBC 3.31 L, Hgb 9.7 L, Hct 30.8 L, MCV 93.1, MCH 29.3, MCHC 31.5 L, RDW Std Deviation 50.4 H, RDW Coeff of Lencho 15.1 H, Plt Count 145 L, MPV 9.8, Immature Gran % (Auto) 0.300, Neut % (Auto) 56.2, Lymph % (Auto) 32.2, [place] % (Auto) 6.7, Eos % (Auto) 3.9, Baso % (Auto) 0.7, Absolute Neuts (auto) 3.4, Absolute Lymphs (auto) 1.96, Nucleated RBC % 0 02/06/21 04:50: Sodium 138, Potassium 3.4 L, Chloride 101, Carbon Dioxide 28.0, Anion Gap 9, BUN 19 H, Creatinine 0.99, Estim Creat Clear Calc 56.57, Est GFR (MDRD) Af Amer 73, Est GFR (MDRD) Non-Af 61, BUN/Creatinine Ratio 19.1, Glucose 120 H, Calcium 9.6 Discharge Activity: Return to Normal Activity Call your doctor if you observe: Fever of 101 or Higher, Shortness of breath, Dizziness, Fainting spells, Swelling in the ankles, Chest pain, Increased palpitations (irregular heartbeat) Home Medications: Medications to take at Discharge Levothyroxine Sodium [Levoxyl] 88 mcg PO DAILY 11/17/17 Multivitamin [Multiple Vitamins] 1 ea PO DAILY 12/29/17 Pantoprazole Sodium [Protonix] 40 mg PO BID 03/29/19 Amitriptyline HCl 25 mg PO QHS 08/10/19 Alendronate Sodium [Fosamax] 70 mg PO Q7D@0700 #4 tab 08/25/19 rosuvastatin 20 mg tablet 20 mg PO QHS 08/25/19 sitagliptin 50 mg tablet 50 mg PO DAILY 09/04/19 Hydrocodone Bitart/Apap 5-325 [Jenks 5/325] 1 tab PO BID 09/10/20 Dicyclomine HCl [Bentyl] 20 mg PO TIDAC 10/19/20 Duloxetine Hcl [Cymbalta] 60 mg PO BID 10/19/20 Valacyclovir HCl [Valacyclovir] 500 mg PO DAILY 10/19/20 Aspirin E.C. [Ecotrin] 81 mg PO DAILY@0800 #30 tab 01/17/21 fluticasone propionate 50 mcg/actuation nasal spray,suspension 2 spray INTRANASAL DAILY 01/26/21 furosemide 40 mg tablet 40 mg PO DAILY tablet 01/26/21 tizanidine 4 mg tablet 4 mg PO Q8H PRN 01/26/21 ascorbate calcium (vitamin C) 500 mg tablet 500 mg PO DAILY 01/27/21 calcium carbonate 600 mg (1,500 mg)-vitamin D3 500 unit capsule 1 cap PO DAILY 01/27/21 cetirizine 10 mg capsule 10 mg PO DAILY PRN 01/27/21 magnesium oxide 400 mg PO DAILY 01/27/21 sacubitril 49 mg-valsartan 51 mg tablet 1 tablet PO BID #60 tablet 01/27/21 Venlafaxine HCl [Effexor] 75 mg PO BID 02/04/21 Carvedilol [Coreg (Beta Eleni)] 12.5 mg PO BID #60 tablet 02/06/21 Following Prescriptions Were Given to Patient: Carvedilol [Coreg (Beta Eleni)] 12.5 mg PO BID #60 tablet Transmission Status: Received by [facility] Primary Care Physician: Brandon Torres DO [Primary Care Provider] - Please follow up with your Primary Care Physician in: 3-5 days Please Follow Up With: Cardiology When: As scheduled Disposition: Home Minutes spent on discharge:: 35 Patient Condition:: Stable Medical Necessity - Tobacco Use Smoking Status: Former smoker Meaningful Use Info Meaningful Use Diagnoses (Choose all that apply): None applicable Inpatient E&M: 77055 Disch Hosp
--- NOTE | 2021-02-07 15:08 | CASEMGMT ---
DRE DELGADILLO Discharge Follow-up Phone Call: KALIA: Savita Strata: 3 Call Date: 02/07/21 Discharge Date: 02/06/21 Time of Call: 1505 Duration: 3 min Admitting Diagnosis: hypotension DRE DELGADILLO completed follow-up phone call after recent hospitalization. Patient states she is doing well and has no questions regarding discharge instructions. 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 Patient states she has follow-up appt scheduled with PCP and will follow-up with cardiology. Patient had no further questions or concerns at this time.
== END 2021-02-06 11:04 | disposition home or self-care (01) | DRG 312 ==
LOC: ED 03:16 → ICU 06:06 → PCU 02-05 17:56
PROVIDERS: Internal Medicine Critical Care Medicine; Admitting Provider Hospitalist; Emergency Provider Emergency Medicine; PCP Student in an Organized Health Care Education/Training Program; Visit Provider Family Medicine
DX: I95.2 Hypotension due to drugs (principal); I13.0 Hypertensive heart and chronic kidney disease with heart failure and stage 1 through stage 4 chronic kidney disease, or unspecified chronic kidney disease; I42.8 Other cardiomyopathies; I50.22 Chronic systolic (congestive) heart failure; E27.49 Other adrenocortical insufficiency; N17.9 Acute kidney failure, unspecified; T46.4X5A Adverse effect of angiotensin-converting-enzyme inhibitors, initial encounter; Y92.9 Unspecified place or not applicable; R09.02 Hypoxemia; E11.22 Type 2 diabetes mellitus with diabetic chronic kidney disease; N18.32 Chronic kidney disease, stage 3b; R68.0 Hypothermia, not associated with low environmental temperature; R79.89 Other specified abnormal findings of blood chemistry; I25.10 Atherosclerotic heart disease of native coronary artery without angina pectoris; K58.9 Irritable bowel syndrome, unspecified; M81.0 Age-related osteoporosis without current pathological fracture; E03.9 Hypothyroidism, unspecified; R29.6 Repeated falls; J45.909 Unspecified asthma, uncomplicated; K21.9 Gastro-esophageal reflux disease without esophagitis; E11.40 Type 2 diabetes mellitus with diabetic neuropathy, unspecified; E66.9 Obesity, unspecified; Z68.39 Body mass index [BMI] 39.0-39.9, adult; I65.21 Occlusion and stenosis of right carotid artery; D64.9 Anemia, unspecified; E78.5 Hyperlipidemia, unspecified; E86.0 Dehydration; E87.6 Hypokalemia; E11.51 Type 2 diabetes mellitus with diabetic peripheral angiopathy without gangrene; F32.9 Major depressive disorder, single episode, unspecified; F41.9 Anxiety disorder, unspecified; G89.29 Other chronic pain; Z86.73 Personal history of transient ischemic attack (TIA), and cerebral infarction without residual deficits; Z87.19 Personal history of other diseases of the digestive system; Z87.891 Personal history of nicotine dependence; Z86.19 Personal history of other infectious and parasitic diseases; Z79.82 Long term (current) use of aspirin; Z79.899 Other long term (current) drug therapy
CPT/HCPCS: 36415; 51702; 70450; 71045; 71275; 80048; 80053; 80076; 81001; 82274; 82533; 82728; 83540; 83550; 83605; 83880; 84443; 84484; 85014; 85018; 85025; 85045; 85379; 85610; 85730; 87040; 87086; 87426; 93005; 94002; 99285; J7040; J7050; Q9967; A4216

== ENCOUNTER → 2021-04-26 13:55 | Outpatient (CLI) | payer MEDICARE, MEDICAID, SELFPAY ==
[2021-02-04 06:35] VITALS: BMI 39.1
--- NOTE | 2021-04-26 13:57 | ECHOCS_ITS ---
Reason For Study: DYSPNEA/SOB Procedure This was a 2D Doppler, Color Flow transthoracic echocardiogram. The study was technically difficult. Exam performed in department. Left Ventricle Normal LV size. Left ventricular systolic function is normal. The estimated ejection fraction is 60 %. No regional wall motion abnormalities noted. Right Ventricle Normal RV size. Normal systolic function. Atria Normal left atrium. Mitral Valve Mitral valve not well visualized. Tricuspid Valve Normal tricuspid valve. Aortic Valve Normal aortic valve. Pulmonic Valve Normal pulmonic valve. Great Vessels Normal aortic root. The pulmonary artery is normal size. Normal inferior vena cava. Pericardium/Pleural No pericardial effusion. Medication 22 gauge I.V. with prn adaptor inserted into right arm. Diluted definity 3ml given slow IV push to enhance endocardial definition. MMode/2D Measurements & Calculations LVIDd: 3.9 cm IVSd: 1.0 cm Ao root diam: 3.0 cm LVIDs: 2.9 cm LVPWd: 1.1 cm RVDd: 2.8 cm FS: 25.8 % LAV(MOD-bp): 30.2 ml LVAd ap4: 27.2 cm2 SV(MOD-sp4): 46.1 ml LAV(MOD-bp) Indexed: 14.4 ml/m2 LVLd ap4: 7.2 cm LAV(MOD-sp2): 29.6 ml EDV(MOD-sp4): 81.8 ml LAV(MOD-sp4): 28.9 ml EDV(sp4-el): 86.6 ml LVAs ap4: 16.6 cm2 LVLs ap4: 6.3 cm ESV(MOD-sp4): 35.7 ml ESV(sp4-el): 37.0 ml EF(MOD-sp4): 56.3 % EF(sp4-el): 57.3 % SV(sp4-el): 49.6 ml LA A4 area: 13.2 cm2 LA dimension(2D): 3.4 cm RA A4 area: 9.1 cm2 Time Measurements MV dec time: 0.25 sec Doppler Measurements & Calculations MV E max jaya: 60.9 cm/sec Lat Peak E' Jaya: 7.4 cm/sec Med Peak E' Jaya: 6.1 cm/sec MV A max jaya: 86.2 cm/sec E/E' lat: 8.2 E/E' med: 9.9 MV E/A: 0.71 Ao V2 max: 141.0 cm/sec LV V1 max: 80.8 cm/sec PA V2 max: 100.4 cm/sec Ao max P.0 mmHg LV V1 max P.6 mmHg ECHO/Echo Complete W/ Contrast Interpretation Summary Normal LV size. Left ventricular systolic function is normal. The estimated ejection fraction is 60 %. No regional wall motion abnormalities noted. Contrast injection was performed. Ordering Physician: Alfredo Gibsno Referring Physician: FELIZ SCOTT Performed By: Zina Hassan RDCS
== END ==
PROVIDERS: PCP Student in an Organized Health Care Education/Training Program; Referring Provider Internal Medicine Cardiovascular Disease; Visit Provider Internal Medicine Cardiovascular Disease
DX: R06.02 Shortness of breath (principal); R06.00 Dyspnea, unspecified
CPT/HCPCS: 93306; Q9957; A4216; C8929; J3490

== ENCOUNTER 2021-08-01 20:28 | Inpatient (IN) | payer MEDICARE, MEDICAID, SELFPAY ==
[2021-08-01] VITALS (9 sets, daily range): BP systolic 39–125; BP diastolic 22–86; PULSE 86–93; RESP 15–18; TEMP 36.6–36.7; O2SAT 94–100; BMI 37.1
--- NOTE | 2021-08-01 20:52 | EKG12_ITS ---
Test Reason : FEVER Blood Pressure : / mmHG Vent. Rate : 086 BPM Atrial Rate : 086 BPM P-R Int : 180 ms QRS Dur : 116 ms QT Int : 398 ms P-R-T Axes : 054 020 026 degrees QTc Int : 476 ms Normal sinus rhythm Normal ECG Confirmed by CALEB CASTRO, KENAN ([id number]), proposal editor ANASTASIA HENSON ([id number]) on 08/03/2021 11:36:35 AM Referred By: LEIF Confirmed By:KENAN ELLIS MD
[2021-08-01] MEDS: 0.9% Normal Saline 1,000 ML 999 ML IV ×3 (20:56→22:15)
--- NOTE | 2021-08-01 21:04 | EX.ED.DYSGE1 ---
HPI History of Present Illness Chief Complaint: Fever Informant: patient Onset/Context/Timing Onset: Today Context: Gradual Onset Timing: Continuous Current Severity: Mild Maximum Severity: Mild Narrative Narrative: 60-year-old female extensive past medical history including prior stroke, cardiomyopathy, renal insufficiency, diabetes, prior C. difficile and congestive heart failure. She has had a right hand infection which they have been treating since March. She had surgery and has been on antibiotics. Is been doing well. She has been off the antibiotics. States in the last several days she has noticed swelling and drainage from the right hand again. Also she has had URI symptoms the last several days. She was vaccinated against Covid earlier this year. She denies vomiting, diarrhea or dysuria. Today she felt lightheaded she was going outside she uses a walker and fell. Squad was called. And brought to the ER. Prior similar symptoms: Yes Recent Illness/Hospitalization: No PFSH [facility] Medical History ACTH deficiency Acute respiratory failure with hypoxia Allergic rhinitis Anemia Asthma Asthma exacerbation Atherosclerosis of coronary artery without angina pectoris Bilateral leg weakness Bone fracture Cardiomyopathy Carotid artery stenosis Carpal tunnel syndrome Chronic constipation with suspected IBS Chronic headaches Chronic systolic (congestive) heart failure CKD (chronic kidney disease) stage 3, GFR 30-59 ml/min Debility Essential hypertension Falls Flash pulmonary edema (01/16/21) Gait difficulty Gallstones GERD (gastroesophageal reflux disease) GI problem Herpes simplex History of Clostridium difficile infection History of CVA (cerebrovascular accident) (2018) History of depression History of emotional problems History of ischemic colitis Hx of diverticulitis of colon Hyperlipidemia Hypotension Hypothyroidism Irritable bowel syndrome Kidney disease Neuropathy Non-ischemic cardiomyopathy Normochromic normocytic anemia Obesity Osteoarthritis Osteopenia Osteoporosis Peripheral vascular disease Pulmonary edema Right hemiparesis Seasonal allergies Secondary adrenal insufficiency Stomach ulcer Trigeminal trophic syndrome Type 2 diabetes mellitus Home Medications levothyroxine 88 mcg PO DAILY 11/17/17 [History Last Taken 08/09/19] multivitamin 1 ea PO DAILY 12/29/17 [History Last Taken 08/09/19] pantoprazole 40 mg PO BID 03/29/19 [History Last Taken 08/09/19] amitriptyline 25 mg PO QHS 08/10/19 [History Last Taken Unknown] alendronate 70 mg PO Q7D@0700 #4 tab 08/25/19 [Rx Last Taken 10/12/20 07:00] rosuvastatin 20 mg tablet 20 mg PO QHS 08/25/19 [History Last Taken Unknown] sitagliptin 50 mg tablet 50 mg PO DAILY 09/04/19 [History Last Taken Unknown] hydrocodone-acetaminophen 7.5 tab PO BID 09/10/20 [History Last Taken Unknown] dicyclomine 20 mg PO TIDAC 10/19/20 [History Last Taken Unknown] duloxetine 60 mg PO BID 10/19/20 [History Last Taken Unknown] valacyclovir 500 mg PO DAILY 10/19/20 [History Last Taken Unknown] aspirin 81 mg PO DAILY@0800 #30 tab 01/17/21 [Rx Last Taken Unknown] fluticasone propionate 50 mcg/actuation nasal spray,suspension 2 spray INTRANASAL DAILY 01/26/21 [History Last Taken Unknown] tizanidine 4 mg tablet 4 mg PO Q8H PRN 01/26/21 [History Last Taken Unknown] ascorbate calcium (vitamin C) 500 mg tablet 500 mg PO DAILY 01/27/21 [History Last Taken Unknown] calcium carbonate 600 mg (1,500 mg)-vitamin D3 500 unit capsule 1 cap PO DAILY 01/27/21 [History Last Taken Unknown] cetirizine 10 mg capsule 10 mg PO DAILY 01/27/21 [History Last Taken Unknown] magnesium oxide 400 mg PO DAILY 01/27/21 [History Last Taken Unknown] venlafaxine 75 mg PO BID 02/04/21 [History Last Taken Unknown] carvedilol 25 mg tablet 25 mg PO Q12H PRN 02/18/21 [History Last Taken Unknown] Lactobacillus rhamnosus GG 10 billion cell capsule 1 cap PO DAILY 05/18/21 [History Last Taken Unknown] furosemide 40 mg tablet 40 mg PO DAILY PRN tablet 05/18/21 [History Last Taken Unknown] lorazepam 0.5 mg tablet 0.5 mg PO BID PRN 05/18/21 [History Last Taken Unknown] pregabalin 100 mg capsule 100 mg PO DAILY 05/18/21 [History Last Taken Unknown] sacubitril 49 mg-valsartan 51 mg tablet 1 tab PO BID 05/25/21 [History Last Taken Unknown] Clindamycin 08/01/21 [History Last Taken Unknown] Allergy/AdvReac Type Severity Reaction Status Date / Time adhesive Allergy skin Verified 08/01/21 20:36 irritation amlodipine [From Norvasc] Allergy tachycardia Verified 08/01/21 20:36 hydromorphone HCl Allergy Itching Verified 08/01/21 20:36 [From Dilaudid] sulfamethoxazole Allergy made my Verified 08/01/21 20:36 [From Bactrim] cold sore huge trimethoprim [From Bactrim] Allergy made my Verified 08/01/21 20:36 cold sore huge Family History Grandfather Alcoholism Grandmother Myocardial infarction Mother Arthritis Diverticulitis COPD (chronic obstructive pulmonary disease) Afib Thyroid disorder Father Arthritis Diabetes Myocardial infarction Heart disease Ischemic Hypertension Hyperlipidemia Brother Arthritis Aunt Breast cancer Sister Arthritis Thyroid disorder Skin cancer Uncle Diabetes Surgical History Ankle fracture Fracture of left femur History of angioplasty of peripheral vessel (2010) History of arthroscopic knee surgery History of back surgery History of bilateral knee replacement History of carpal tunnel release History of cholecystectomy History of intestine removal History of left heart catheterization (2011) History of tonsillectomy and adenoidectomy History of trigger finger History of ventral hernia repair Strangulated ventral hernia Social History Smoking Status: Former smoker how long ago did patient quit smokin alcohol intake: never substance use type: does not use what type of physical activity do you participate in: other ROS ROS ED ROS Narrative Cough, sore throat. Right hand swelling. Review of Systems ROS Unobtainable: Denies due to encephalopathy Constitutional Constitutional ED: Denies chills or fever(s) Eyes Eyes: Denies change in vision ENT ENT ED: Reports sore throat; Denies ear pain Cardiovascular Cardiovascular: Denies chest pain or palpitations Respiratory/Chest Respiratory/Chest: Reports cough; Denies dyspnea Gastrointestinal Gastrointestinal: Denies abdominal pain, diarrhea, nausea or vomiting Genitourinary Genitourinary ED: Denies dysuria Musculoskeletal Musculoskeletal: Denies myalgias Integumentary Denies rash Neurologic Neurologic: Denies headache(s) Psychiatric Psychiatric: Denies depression Endocrine Endocrinology: Denies polyuria Allergic/Immunologic Allergic/Immunologic ED: Denies urticaria EXAM Physical Exam Narrative Exam Narrative: 6-year-old female blood pressures of 70/67. I think the initial blood pressure of 50/34 is erroneous. Patient is a peripheral pulse was sitting up and talking without blood pressure. She is afebrile. HEENT exam dry extremities. Otherwise unremarkable. Neck nontender no JVD no lymphadenopathy. Lungs clear to auscultation. Heart regular rhythm rate about 85 no murmur. Abdomen soft nontender normal bowel sounds no peritoneal signs. Moving all 4 extremities. Calves are nontender without edema or cords. Right hand palm there is swelling and appears to be signs of infection of the soft tissue. There is no lymphangitic streaking. No axillary lymphadenopathy. Neurologically she is awake and alert moving all 4 extremities. Const Vital Signs: 08/01/21 20:29 08/01/21 20:41 08/01/21 20:44 Temperature 98.0 F 98.0 F Temperature Source Temporal Temporal Pulse Rate 90 86 Respiratory Rate 18 18 Respiratory Effort Normal Non-Labored Respiratory Pattern Normal Blood Pressure 58/48 L 125/64 H Blood Pressure Mean 51 84 Pulse Ox 94 94 Oxygen Delivery Method Room Air Room Air Oxygen Flow Rate (L/min) 08/01/21 20:48 08/01/21 20:49 08/01/21 20:58 Temperature Temperature Source Pulse Rate 87 Respiratory Rate 17 Respiratory Effort Respiratory Pattern Blood Pressure 50/34 L 39/22 L 78/67 L Blood Pressure Mean 39 27 70 Pulse Ox 100 Oxygen Delivery Method Nasal Cannula Oxygen Flow Rate (L/min) 2 08/01/21 21:30 08/01/21 22:01 08/01/21 22:10 Temperature 98.0 F 97.8 F Temperature Source Temporal Oral Pulse Rate 89 88 88 Respiratory Rate 17 15 18 Respiratory Effort Respiratory Pattern Blood Pressure 116/86 H 53/28 L 68/34 L Blood Pressure Mean 96 36 45 Pulse Ox 98 100 98 Oxygen Delivery Method Nasal Cannula Room Air Nasal Cannula Oxygen Flow Rate (L/min) 2 2 08/01/21 22:59 Temperature 97.9 F Temperature Source Temporal Pulse Rate 93 Respiratory Rate 18 Respiratory Effort Respiratory Pattern Blood Pressure 73/46 L Blood Pressure Mean 55 Pulse Ox 99 Oxygen Delivery Method Nasal Cannula Oxygen Flow Rate (L/min) 2 Positive well nourished, well developed and obese; Negative for cachectic, contractures or unkempt General Appearance ED: well developed; Negative for unkempt, cachectic, contractures, cyanotic, diaphoretic, NAD or pallor Nutritional Appearance: obese; Negative for cachectic HEENT Reports dry mucous membranes Negative for trauma or tenderness Mouth ED: Yes dry mucous membranes Mouth: dry mucous membranes Eyes PERRL and EOMs intact bilaterally Neck no lymphadenopathy, supple and no JVD General: Negative for tenderness Chest Wall inspection of chest normal and palpation of chest normal Resp normal respiratory effort and clear to auscultation bilaterally Effort and Inspection: Negative for pain with movement Auscultation: Negative for rales, rhonchi or wheezes Cardio regular rate, regular rhythm, S1 normal heart sound, S2 normal heart sound and no murmurs GI normal to inspection, nondistended, normoactive bowel sounds, non-tender, non-distended and no masses Auscultation: normoactive bowel sounds Palpation: soft; Negative for tender, guarding or rebound tenderness present Back/Spine no CVA tenderness General Back: Negative for CVA tenderness Cervical Spine: Negative for cervical spine tenderness Extremity normal to inspection Extremity Narrative: Except that on the right hand swollen and appears to be infected. There is no lymphangitic streaking. Neuro oriented x3 Sensorium / Orientation: alert; Negative for orientation impaired, lethargic or stuporous Motor Exam: strength 5/5 throughout Psych mental status grossly normal Appearance: Negative for unkempt Mood & Affect: Negative for depressed or tearful Skin no rashes or lesions noted and No no wounds General Skin Exam: Negative for jaundice or pallor MDM MDM MDM Narrative Medical decision making narrative: 60-year-old female hypotensive concern for possible septic etiology. She undergo a septic work-up. She is being treated with IV fluids. Patient was treated with parenteral antibiotics Rocephin and Zithromax for the pneumonia and the UTI. She has been given 3 L of normal saline fluid. She still remains hypotensive. I attempted to place a right IJ central line was able to get blood return but was unable to thread the guidewire. Both her right inguinal region and subclavian approach would be very difficult due to the patient's body habitus. Should be placed on low-dose pressors peripherally. Lab Data Attestation: I reviewed the patient's lab results. Lab results narrative: CBC shows a white count of 15.1. Hemoglobin 9.7. Patient has underlying baseline anemia. 80% neutrophils. PT/INR 15 1. Electrolytes sodium 133. Gap 11 creatinine 3.74. Consistent with acute kidney injury. Patient's last creatinine was normal. Liver enzymes unremarkable except for an AST of 186. Lactic acid 2.0. Consider within fact shown with 50-100 white cells 0 epithelial cells 2+ bacteria negative nitrites. Culture sent. Labs: Laboratory Results - last 24 hr 08/01/21 08/01/21 08/01/21 20:45 20:45 21:08 WBC 15.1 H RBC 3.22 L Hgb 9.7 L Hct 31.3 L MCV 97.2 MCH 30.1 MCHC 31.0 L RDW Std Deviation 50.8 H RDW Coeff of Lencho 14.3 Plt Count 183 MPV 11.0 Immature Gran % (Auto) 1.200 H Neut % (Auto) 80.0 H Lymph % (Auto) 9.1 L [place] % (Auto) 7.8 Eos % (Auto) 1.6 Baso % (Auto) 0.3 Absolute Neuts (auto) 12.1 H Absolute Lymphs (auto) 1.37 Nucleated RBC % 0 Differential Comment SCANNED PT 15.2 H INR 1.3 APTT 40.4 H Sodium 133 L Potassium 4.3 Chloride 99 Carbon Dioxide 23.0 Anion Gap 11 BUN 40 H Creatinine 3.74 H Estim Creat Clear Calc 14.97 Est GFR (MDRD) Af Amer 16 L Est GFR (MDRD) Non-Af 13 L BUN/Creatinine Ratio 10.7 Glucose 127 H Lactic Acid Calcium 9.1 Total Bilirubin 0.40 AST 186 H ALT 42 Alkaline Phosphatase 73 Total Protein 7.1 Albumin 2.6 L Globulin 4.5 H Albumin/Globulin Ratio 0.6 L Urine Color Urine Clarity Urine pH Ur Specific Rankin Urine Protein Urine Glucose (UA) Urine Ketones Urine Occult Blood Urine Nitrite Urine Bilirubin Urine Urobilinogen Ur Leukocyte Esterase Urine RBC Urine WBC Ur Squamous Epith Cells Urine Bacteria Urine Mucus 08/01/21 08/01/21 21:08 21:34 WBC RBC Hgb Hct MCV MCH MCHC RDW Std Deviation RDW Coeff of Lencho Plt Count MPV Immature Gran % (Auto) Neut % (Auto) Lymph % (Auto) [place] % (Auto) Eos % (Auto) Baso % (Auto) Absolute Neuts (auto) Absolute Lymphs (auto) Nucleated RBC % Differential Comment PT INR APTT Sodium Potassium Chloride Carbon Dioxide Anion Gap BUN Creatinine Estim Creat Clear Calc Est GFR (MDRD) Af Amer Est GFR (MDRD) Non-Af BUN/Creatinine Ratio Glucose Lactic Acid 2.0 Calcium Total Bilirubin AST ALT Alkaline Phosphatase Total Protein Albumin Globulin Albumin/Globulin Ratio Urine Color Joleen Urine Clarity Sl. Cloudy Urine pH 5.0 Ur Specific Rankin 1.015 Urine Protein 100 H Urine Glucose (UA) Normal Urine Ketones Negative Urine Occult Blood 50 H Urine Nitrite Negative Urine Bilirubin Negative Urine Urobilinogen Normal Ur Leukocyte Esterase 500 H Urine RBC 0-5 SEEN Urine WBC 50-100 SEEN Ur Squamous Epith Cells 0-5 SEEN Urine Bacteria 2+ Urine Mucus 0 SEEN Radiography Chest X-Ray - ED: 1 View, Read by ED Physician, Read by Radiologist, Normal, Heart, Lungs, Mediastinum and Right Infiltrate Diagnostic Testing: Radiology Impression Chest X-Ray 08/01/21 21:13 IMPRESSION: Right upper lobe infiltrate. Electronically Signed: Khalif Mojica MD at 21:24 EDT , Service support , Portable single view chest x-ray interpreted by myself and radiologist shows a right upper lobe infiltrate consistent with pneumonia. Normal cardiac silhouette. No signs of pulmonary edema. Rhythm Strip Rhythm Strip: Sinus Rhythm Rate: 86 Ectopy: None EKG Initial EKG: Attestation: I personally reviewed and interpreted this EKG as follows: Interpretation: Sinus Rhythm and No Acute Injury Pattern Comments: Normal sinus rhythm rate of 86 no acute signs of TX or ischemia. Prior EKG tracings: not available for review Critical Care Time Critical Care Time: Yes Critical care time (excluding procedures): 30-74 minutes, Including time spent:, Discussing w/Patient &/or Family/Marine Service Operator, Discussing w/Consultants, Arranging Admission or Transfer, Performing Direct Patient Care at Bedside and - (35 min) Discharge Plan Dx/Rx/DC Orders Clinical Impression: Acute hypotension, Pneumonia of right upper lobe due to infectious organism, UTI (urinary tract infection), Septic shock Disposition Disposition: [facility]
[2021-08-01 21:05] LABS: Absolute Lymphocyte Count 1.37 X10^3/uL (0.83-4.51); Absolute Neutrophil Count 12.1 X10^3/uL (2.0-7.7); Basophil# 0.05 X10^3/uL; Basophil% 0.3 % (0-1); Eosinophil# 0.24 X10^3/uL; Eosinophils% 1.6 % (0-5); Hematocrit 31.3 % (37-47); Hemoglobin 9.7 g/dL (12.0-15.0); Lymphocyte # 1.37 X10^3/ul (0.83-4.51); Lymphocyte % 9.1 % (19-41); Mean Corpuscular Hgb 30.1 pg (27.0-32.0); Mean Corpuscular Volume 97.2 fL (81-99); Monocyte# 1.18 X10^3/uL; Monocyte% 7.8 % (0-10); NRBC Flagged by Analyzer 0 % (0-5); Neutrophil # 12.09 X10^3/uL (2.7-7.7); POSITIVE MORPHOLOGY YES; Platelet Count 183 K/mm3 (150-450); RBC Distribution Width CV 14.3 % (11.6-14.6); RBC Distribution Width SD 50.8 fl (35.1-43.9); Red Blood Count 3.22 M/mm3 (4.2-5.4); White Blood Count 15.1 K/mm3 (4.4-11.0)
[2021-08-01 21:08] LABS: Differential Indicated SCAN CRITERIA MET
--- NOTE | 2021-08-01 21:13 | RAD_ITS ---
STUDY: X-RAY CHEST REASON FOR EXAM: Female, 60 years old. CHEST PAIN sepsis TECHNIQUE: XR Chest 1 View COMPARISON: 4.2. FINDINGS: There is no demonstrated pleural abnormality. Right upper lobe infiltrate. Normal size heart. Normal mediastinum and jonathan. Normal visualized pulmonary arteries. There is atherosclerotic calcification of the aortic arch with tortuosity. There are diffuse degenerative changes of the visualized thoracic spine. There is degenerative osteoarthritis of the bilateral shoulders. There is no demonstrated abnormality of the visualized soft tissue structures of the upper abdomen. RAD/Chest 1 View (Portable) IMPRESSION: Right upper lobe infiltrate. Electronically Signed: Khalif Mojica MD at 21:24 EDT , Service support ,
[2021-08-01 21:18] LABS: ALB/GLOB Ratio 0.6 RATIO (0.9-2.4); AST(SGOT) 186 U/L (15-37); Alanine Aminotransfer ALT/SGPT 42 U/L (13-56); Albumin, Serum 2.6 g/dL (3.2-5.0); Alkaline Phosphatase 73 U/L (45-117); Anion Gap 11 (5-15); BUN 40 mg/dL (7-18); BUN/Creat Ratio 10.7 RATIO (10-20); Calcium,Total 9.1 mg/dL (8.5-10.1); Chloride 99 mmol/L (98-107); Creatinine, Serum 3.74 mg/dL (0.55-1.02); EST Glomerular Filtration Rate 13 mL/min (>60); Est Glom Filt Rate - Afr Amer 16 mL/min (>60); Estimated Creatinine Clearance 14.97 ml/min; Globulin 4.5 g/dL (2.2-4.2); Glucose 127 mg/dL (74-106); Potassium 4.3 mmol/L (3.5-5.1); Protein, Total 7.1 g/dL (6.4-8.2); Sodium Level 133 mmol/L (136-145)
[2021-08-01 21:34] LABS: Differential Comment SCANNED
[2021-08-01 21:39] LABS: Mucous, Urine 0 SEEN /hpf (<or=2+)
[2021-08-01 21:47] LABS: Color, Urine Amber (Yellow); Glucose, Dipstick Normal (Normal); Ketone-Dipstick Negative (Negative); Leukocyte Esterase-Dipstick 500 /ul (Negative); Nitrite-Dipstick Negative (Negative); Occult Blood-Urine 50 /ul (Negative); Protein-Dipstick 100 mg/dl (Negative); Specific Gravity, Urine 1.015 (1.002-1.030); Urine Bilirubin Dipstick Negative (Negative); Urine Clarity Sl. Cloudy (Clear); Urine Urobilinogen Normal (Normal)
[2021-08-01 21:56] LABS: White Blood Cells 50-100 SEEN /hpf (0-5)
[2021-08-01 21:58] LABS: Squamous Epithelial Cells - UA 0-5 SEEN /hpf (5-10)
[2021-08-01 21:59] LABS: Bacteria 2+ /hpf (None Seen); Red Blood Cells-Urine 0-5 SEEN /hpf (0-5)
[2021-08-01 22:14] LABS: International Normalized Ratio 1.3; Prothrombin Time (Protime)PT. 15.2 SECONDS (11.7-14.9)
[2021-08-01 22:15] LABS: Partial Thromboplast Time 40.4 Seconds (24.1-36.2)
[2021-08-01] MEDS: Ceftriaxone 1 GM/50 ML BAG IV (22:58)
--- NOTE | 2021-08-01 23:31 | PCM.HP.STD ---
HPI - General General Date of Admission: 08/01/21 Date of Service: 08/01/21 Chief Complaint: Weakness HPI Narrative BILL CHOI, is a 60 F with a significant history of C-diff colitis; heart failure who presents to the emergency department with persistent weakness that started on the same day of presentation. Because of weakness she fell. She report that 3 days ago she developed a sore throat. Further she reported that 3 days ago she developed anorexia; and a fever. She reports home temperature of 104.1 Fahrenheit. She denies chills. She reports some shortness of breath and cough. Her cough was productive for thick yellow sputum. However on the day of presentation her cough was non productive. She had a recurrent infection of the palms of the left hand so she was restarted on antibiotics 2 days before presentation. She sees an orthopedic surgeon with [facility] for infection of the palms of her right hand. FORMERLY [facility] Medical History ACTH deficiency Acute respiratory failure with hypoxia Allergic rhinitis Anemia Asthma Asthma exacerbation Atherosclerosis of coronary artery without angina pectoris Bilateral leg weakness Bone fracture Cardiomyopathy Carotid artery stenosis Carpal tunnel syndrome Chronic constipation with suspected IBS Chronic headaches Chronic systolic (congestive) heart failure CKD (chronic kidney disease) stage 3, GFR 30-59 ml/min Debility Essential hypertension Falls Flash pulmonary edema (01/16/21) Gait difficulty Gallstones GERD (gastroesophageal reflux disease) GI problem Herpes simplex History of Clostridium difficile infection History of CVA (cerebrovascular accident) (2018) History of depression History of emotional problems History of ischemic colitis Hx of diverticulitis of colon Hyperlipidemia Hypotension Hypothyroidism Irritable bowel syndrome Kidney disease Neuropathy Non-ischemic cardiomyopathy Normochromic normocytic anemia Obesity Osteoarthritis Osteopenia Osteoporosis Peripheral vascular disease Pulmonary edema Right hemiparesis Seasonal allergies Secondary adrenal insufficiency Stomach ulcer Trigeminal trophic syndrome Type 2 diabetes mellitus Home Medications levothyroxine 88 mcg PO DAILY 11/17/17 [History Last Taken 08/09/19] multivitamin 1 ea PO DAILY 12/29/17 [History Last Taken 08/09/19] pantoprazole 40 mg PO BID 03/29/19 [History Last Taken 08/09/19] amitriptyline 25 mg PO QHS 08/10/19 [History Last Taken Unknown] alendronate 70 mg PO Q7D@0700 #4 tab 08/25/19 [Rx Last Taken 10/12/20 07:00] rosuvastatin 20 mg tablet 20 mg PO QHS 08/25/19 [History Last Taken Unknown] sitagliptin 50 mg tablet 50 mg PO DAILY 09/04/19 [History Last Taken Unknown] hydrocodone-acetaminophen 7.5 tab PO BID 09/10/20 [History Last Taken Unknown] dicyclomine 20 mg PO TIDAC 10/19/20 [History Last Taken Unknown] duloxetine 60 mg PO BID 10/19/20 [History Last Taken Unknown] valacyclovir 500 mg PO DAILY 10/19/20 [History Last Taken Unknown] aspirin 81 mg PO DAILY@0800 #30 tab 01/17/21 [Rx Last Taken Unknown] fluticasone propionate 50 mcg/actuation nasal spray,suspension 2 spray INTRANASAL DAILY 01/26/21 [History Last Taken Unknown] tizanidine 4 mg tablet 4 mg PO Q8H PRN 01/26/21 [History Last Taken Unknown] ascorbate calcium (vitamin C) 500 mg tablet 500 mg PO DAILY 01/27/21 [History Last Taken Unknown] calcium carbonate 600 mg (1,500 mg)-vitamin D3 500 unit capsule 1 cap PO DAILY 01/27/21 [History Last Taken Unknown] cetirizine 10 mg capsule 10 mg PO DAILY 01/27/21 [History Last Taken Unknown] magnesium oxide 400 mg PO DAILY 01/27/21 [History Last Taken Unknown] venlafaxine 75 mg PO BID 02/04/21 [History Last Taken Unknown] carvedilol 25 mg tablet 25 mg PO Q12H PRN 02/18/21 [History Last Taken Unknown] Lactobacillus rhamnosus GG 10 billion cell capsule 1 cap PO DAILY 05/18/21 [History Last Taken Unknown] furosemide 40 mg tablet 40 mg PO DAILY PRN tablet 05/18/21 [History Last Taken Unknown] lorazepam 0.5 mg tablet 0.5 mg PO BID PRN 05/18/21 [History Last Taken Unknown] pregabalin 100 mg capsule 100 mg PO DAILY 05/18/21 [History Last Taken Unknown] sacubitril 49 mg-valsartan 51 mg tablet 1 tab PO BID 05/25/21 [History Last Taken Unknown] Clindamycin 100 mg PO/SL TID 08/01/21 [History Last Taken 08/01/21] Allergy/AdvReac Type Severity Reaction Status Date / Time adhesive Allergy skin Verified 08/01/21 20:36 irritation amlodipine [From Norvasc] Allergy tachycardia Verified 08/01/21 20:36 hydromorphone HCl Allergy Itching Verified 08/01/21 20:36 [From Dilaudid] sulfamethoxazole Allergy made my Verified 08/01/21 20:36 [From Bactrim] cold sore huge trimethoprim [From Bactrim] Allergy made my Verified 08/01/21 20:36 cold sore huge Family History Grandfather Alcoholism Grandmother Myocardial infarction Mother Arthritis Diverticulitis COPD (chronic obstructive pulmonary disease) Afib Thyroid disorder Father Arthritis Diabetes Myocardial infarction Heart disease Ischemic Hypertension Hyperlipidemia Brother Arthritis Aunt Breast cancer Sister Arthritis Thyroid disorder Skin cancer Uncle Diabetes Surgical History Ankle fracture Fracture of left femur History of angioplasty of peripheral vessel (2010) History of arthroscopic knee surgery History of back surgery History of bilateral knee replacement History of carpal tunnel release History of cholecystectomy History of intestine removal History of left heart catheterization (2011) History of tonsillectomy and adenoidectomy History of trigger finger History of ventral hernia repair Strangulated ventral hernia Social History Smoking Status: Former smoker how long ago did patient quit smokin alcohol intake: never substance use type: does not use what type of physical activity do you participate in: other ROS ROS Narrative Constitutional: Reports fever, chills, fatigue, and anorexia. Eyes: Denies blurry vision, change in eye color, change in vision, discharge from eye(s), double vision, erythema, eye pain, loss of vision or other HEENT: Denies abnormal hearing, dysphagia, ear pain, epistaxis, headache(s), hearing loss, nasal congestion, nasal discharge, post nasal drip, sinus pressure, sore throat or other Cardiovascular: Denies chest pain or palpitations. Denies dyspnea on exertion, orthopnea and paroxysmal nocturnal dyspnea Respiratory/Chest: Denies cough, excessive phlegm production, shortness of breath with exertion and wheezing Gastrointestinal: Denies abdominal pain, coffee ground emesis, constipation, diarrhea, dyspepsia, hematemesis, hematochezia, loose stools, melena, nausea, vomiting or other Genitourinary: Reports decreased frequency of urination. Denies burning urination, difficulty urinating, dysuria, hematuria, nocturia, urinary incontinence, urinary urgency or other Musculoskeletal: Denies arthralgias, back pain, joint pain, joint stiffness, joint swelling, myalgias, neck pain or other Neurologic: Denies abnormal gait, abnormal speech, confusion, disequilibrium, dizziness, focal weakness, headache(s), numbness, paresthesias, seizure-like activity, seizures, syncope, tingling, tremor(s) or other Psychiatric: Denies anxiety, depression, homicidal ideation, suicidal ideation or other Endocrinology: Denies change in body appearance, cold intolerance, excessive sweating, heat intolerance, polydipsia, polyuria or other Hematologic/Lymphatic: Denies anemia, easy bleeding, easy bruising, lymphadenopathy or other Integumentary: Reports ulcer of the palm of her right hand. Allergic/Immunologic: Denies rhinitis, hives, eczema, asthma or other Vital Signs Vital Signs Vital Signs: 08/01/21 20:29 08/01/21 20:41 08/01/21 20:44 Temperature 98.0 F 98.0 F Temperature Source Temporal Temporal Pulse Rate 90 86 Respiratory Rate 18 18 Respiratory Effort Normal Non-Labored Respiratory Pattern Normal Blood Pressure 58/48 L 125/64 H Blood Pressure Mean 51 84 Pulse Ox 94 94 Oxygen Delivery Method Room Air Room Air Oxygen Flow Rate (L/min) 08/01/21 20:48 08/01/21 20:49 08/01/21 20:58 Temperature Temperature Source Pulse Rate 87 Respiratory Rate 17 Respiratory Effort Respiratory Pattern Blood Pressure 50/34 L 39/22 L 78/67 L Blood Pressure Mean 39 27 70 Pulse Ox 100 Oxygen Delivery Method Nasal Cannula Oxygen Flow Rate (L/min) 2 08/01/21 21:30 08/01/21 22:01 08/01/21 22:10 Temperature 98.0 F 97.8 F Temperature Source Temporal Oral Pulse Rate 89 88 88 Respiratory Rate 17 15 18 Respiratory Effort Respiratory Pattern Blood Pressure 116/86 H 53/28 L 68/34 L Blood Pressure Mean 96 36 45 Pulse Ox 98 100 98 Oxygen Delivery Method Nasal Cannula Room Air Nasal Cannula Oxygen Flow Rate (L/min) 2 2 08/01/21 22:59 Temperature 97.9 F Temperature Source Temporal Pulse Rate 93 Respiratory Rate 18 Respiratory Effort Respiratory Pattern Blood Pressure 73/46 L Blood Pressure Mean 55 Pulse Ox 99 Oxygen Delivery Method Nasal Cannula Oxygen Flow Rate (L/min) 2 Weight Weight: 104.326 kg Body Mass Index (BMI) 37.1 Physical Exam Narrative Physical exam: General: Well-nourished, well-developed. Head: Normocephalic, atraumatic, no tenderness Eyes: PERRLA, EOMI ENT, no trauma, moist mucous membranes, no rhinorrhea Neck: Nontender, full range of motion, no spinal tenderness, deformities, step-off CVS: Regular rate and rhythm. S1-S2 present. No murmur, gallop or rub. Respiratory : clear to auscultation bilaterally, chest wall nontender, no wheezing Abdomen: Soft, nontender, nondistended, normal bowel sounds, no masses : Deferred Back: Nontender, no CVA tenderness, no midline spinal tenderness, deformities, step-offs Extremities: Full range of motion. No cachexia. Skin: Ulcer; tenderness and swelling of palms of right hand. Neuro: Alert, oriented, cranial nerves II through XII grossly intact. Psychiatry: Normal mood. Normal affect. Not depressed. Not anxious. Results Lab / Micro Data Result Diagrams: 08/01/21 20:45 08/01/21 20:45 Labs: Laboratory Results - last 24 hr 08/01/21 20:45: WBC 15.1 H, RBC 3.22 L, Hgb 9.7 L, Hct 31.3 L, MCV 97.2, MCH 30.1, MCHC 31.0 L, RDW Std Deviation 50.8 H, RDW Coeff of Lencho 14.3, Plt Count 183, MPV 11.0, Immature Gran % (Auto) 1.200 H, Neut % (Auto) 80.0 H, Lymph % (Auto) 9.1 L, [place] % (Auto) 7.8, Eos % (Auto) 1.6, Baso % (Auto) 0.3, Absolute Neuts (auto) 12.1 H, Absolute Lymphs (auto) 1.37, Nucleated RBC % 0, Differential Comment SCANNED 08/01/21 20:45: Sodium 133 L, Potassium 4.3, Chloride 99, Carbon Dioxide 23.0, Anion Gap 11, BUN 40 H, Creatinine 3.74 H, Estim Creat Clear Calc 14.97, Est GFR (MDRD) Af Amer 16 L, Est GFR (MDRD) Non-Af 13 L, BUN/Creatinine Ratio 10.7, Glucose 127 H, Calcium 9.1, Total Bilirubin 0.40, AST 186 H, ALT 42, Alkaline Phosphatase 73, Total Protein 7.1, Albumin 2.6 L, Globulin 4.5 H, Albumin/Globulin Ratio 0.6 L 08/01/21 21:08: PT 15.2 H, INR 1.3, APTT 40.4 H 08/01/21 21:08: Lactic Acid 2.0 08/01/21 21:34: Urine Color Joleen, Urine Clarity Sl. Cloudy, Urine pH 5.0, Ur Specific [place] 1.015, Urine Protein 100 H, Urine Glucose (UA) Normal, Urine Ketones Negative, Urine Occult Blood 50 H, Urine Nitrite Negative, Urine Bilirubin Negative, Urine Urobilinogen Normal, Ur Leukocyte Esterase 500 H, Urine RBC 0-5 SEEN, Urine WBC 50-100 SEEN, Ur Squamous Epith Cells 0-5 SEEN, Urine Bacteria 2+, Urine Mucus 0 SEEN Micro: Microbiology 08/01/21 21:08 Nasal Secretion SARS-CoV-2 Antigen (Rapid) - Final Rhythm Strip Rhythm Strip: Sinus Rhythm Rate: 86 Ectopy: None Radiology Impression Chest X-Ray 08/01/21 21:13 IMPRESSION: Right upper lobe infiltrate. Electronically Signed: Khalif Mojica MD at 21:24 EDT , Service support , Assessment & Plan Assessment/Plan (1) Septic shock: (2) UTI (urinary tract infection): QUALIFIERS: Hematuria presence: without hematuria Urinary tract infection type: acute cystitis Qualified Code(s): N30.00 - Acute cystitis without hematuria (3) Pneumonia of right upper lobe due to infectious organism: (4) Cardiomyopathy: PLAN: Septic shock Patient with heart rate of more than 90 and systolic blood pressure of less than 90. Review of records shows that on her last admission patient was hypotensive and required pressors. Creatinine of 3.74 on presentation. Baseline creatinine is about 1.3. Review of emergency department labs showed pyuria with urine bacteria; urine leukocyte esterase and positive urine occult blood. Chest x-ray showed right upper lobe opacity. Actual chest x-ray image was independently interpreted and I agree radiologist interpretation. Received ceftriaxone and azithromycin emergency department. Started on vancomycin and cefepime. Received normal saline bolus at 30 mL/kg per septic shock protocol. Started on pressors. 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 Infection of palm of right hand On home clindamycin, hold. Vancomycin and cefepime as above. Cardiomyopathy Echocardiogram on 01/15/2021 showed ejection fraction of 15%. Echocardiogram on 04/24/2021 showed ejection fraction of 60%; improved. On guideline directed medical therapy which will be held secondary to septic shock. Consider resuming that guideline directed medical therapy when patient can tolerate. Hold home Lasix. DVT prophylaxis: Subcutaneous heparin ordered. Charges/Coding Visit Charges Inpatient E&M: 56259 Init Hosp L3
--- NOTE | 2021-08-01 23:48 | ED.RN ---
Dr. Burris has been updated frequently throughout pts stay regarding low BP. Orders were received and completed. PT currently in Trendelenburg position.
[2021-08-02] VITALS (44 sets, daily range): BP systolic 48–117; BP diastolic 35–99; PULSE 82–100; RESP 10–23; TEMP 36.2–36.8; O2SAT 10–100; BMI 40.0
[2021-08-02 01:17] LABS: Reflex Lactate? Y
--- NOTE | 2021-08-02 01:19 | RAD_ITS ---
STUDY: X-RAY CHEST REASON FOR EXAM: Female, 60 years old. POST LINE TECHNIQUE: Portable, upright, AP chest radiograph COMPARISON: 4 hours earlier RAD/Chest 1 View (Portable) IMPRESSION: No new line or tube is demonstrated. Unchanged appearance of right upper lung infiltrate. No new abnormal finding. Electronically Signed: Jordi Cole MD at 2:39 EDT Tel , Service support ,
--- NOTE | 2021-08-02 03:00 | RAD_ITS ---
STUDY: X-RAY CHEST REASON FOR EXAM: Female, 60 years old. FAILED ATTEMPT (#2) AT CENTRAL LINE PLACEMENT TECHNIQUE: Portable, upright, AP chest radiograph COMPARISON: 2 hours earlier RAD/Chest 1 View (Portable) IMPRESSION: No finding of pneumothorax. Unchanged left upper lung opacity. Electronically Signed: Jordi Cole MD at 4:15 EDT Tel , Service support ,
--- NOTE | 2021-08-02 04:40 | ED.RN ---
see down time charting from 0130 to 430
--- NOTE | 2021-08-02 05:44 | SEPSISNOTE ---
Sepsis Note Physical Exam/Vitals Objective: Chest X-Ray 08/01/21 21:13 IMPRESSION: Right upper lobe infiltrate. Electronically Signed: Khalif Mojica MD at 21:24 EDT , Service support , Chest X-Ray 08/02/21 01:19 IMPRESSION: No new line or tube is demonstrated. Unchanged appearance of right upper lung infiltrate. No new abnormal finding. Electronically Signed: Jordi Cole MD at 2:39 EDT Tel , Service support , Chest X-Ray 08/02/21 03:00 IMPRESSION: No finding of pneumothorax. Unchanged left upper lung opacity. Electronically Signed: Jordi Cole MD at 4:15 EDT Tel , Service support , Temp Pulse Resp BP Pulse Ox 98.1 F 94 19 H 84/55 L 99 08/02/21 00:07 08/02/21 00:07 08/02/21 00:07 08/02/21 00:07 08/02/21 00:07 08/01/21 08/01/21 08/01/21 21:34 21:08 21:08 WBC RBC Hgb Hct MCV MCH MCHC RDW Std Deviation RDW Coeff of Lencho Plt Count MPV Immature Gran % (Auto) Neut % (Auto) Lymph % (Auto) [place] % (Auto) Eos % (Auto) Baso % (Auto) Absolute Neuts (auto) Absolute Lymphs (auto) Nucleated RBC % Differential Comment PT 15.2 H INR 1.3 APTT 40.4 H Sodium Potassium Chloride Carbon Dioxide Anion Gap BUN Creatinine Estim Creat Clear Calc Est GFR (MDRD) Af Amer Est GFR (MDRD) Non-Af BUN/Creatinine Ratio Glucose Lactic Acid 2.0 Calcium Total Bilirubin AST ALT Alkaline Phosphatase Total Protein Albumin Globulin Albumin/Globulin Ratio Urine Color Joleen Urine Clarity Sl. Cloudy Urine pH 5.0 Ur Specific [place] 1.015 Urine Protein 100 H Urine Glucose (UA) Normal Urine Ketones Negative Urine Occult Blood 50 H Urine Nitrite Negative Urine Bilirubin Negative Urine Urobilinogen Normal Ur Leukocyte Esterase 500 H Urine RBC 0-5 SEEN Urine WBC 50-100 SEEN Ur Squamous Epith Cells 0-5 SEEN Urine Bacteria 2+ Urine Mucus 0 SEEN 08/01/21 08/01/21 20:45 20:45 WBC 15.1 H RBC 3.22 L Hgb 9.7 L Hct 31.3 L MCV 97.2 MCH 30.1 MCHC 31.0 L RDW Std Deviation 50.8 H RDW Coeff of [place] 14.3 Plt Count 183 MPV 11.0 Immature Gran % (Auto) 1.200 H Neut % (Auto) 80.0 H Lymph % (Auto) 9.[address] [place] % (Auto) 7.8 Eos % (Auto) 1.6 Baso % (Auto) 0.3 Absolute Neuts (auto) 12.1 H Absolute Lymphs (auto) 1.37 Nucleated RBC % 0 Differential Comment SCANNED PT INR APTT Sodium 133 L Potassium 4.3 Chloride 99 Carbon Dioxide 23.0 Anion Gap 11 BUN 40 H Creatinine 3.74 H Estim Creat Clear Calc 14.97 Est GFR (MDRD) Af Amer 16 L Est GFR (MDRD) Non-Af 13 L BUN/Creatinine Ratio 10.7 Glucose 127 H Lactic Acid Calcium 9.1 Total Bilirubin 0.40 AST 186 H ALT 42 Alkaline Phosphatase 73 Total Protein 7.1 Albumin 2.6 L Globulin 4.5 H Albumin/Globulin Ratio 0.6 L Urine Color Urine Clarity Urine pH Ur Specific [place] Urine Protein Urine Glucose (UA) Urine Ketones Urine Occult Blood Urine Nitrite Urine Bilirubin Urine Urobilinogen Ur Leukocyte Esterase Urine RBC Urine WBC Ur Squamous Epith Cells Urine Bacteria Urine Mucus Attestation Sepsis Attestation: Sepsis re-evaluation was performed
--- NOTE | 2021-08-02 05:45 | PCM.PN.BLA ---
Progress Note Unsuccessful attempts at placing left IJ by hospitalist. Was notified by ED doc about unsuccessful attempts in placing right IJ by ED physicians. Follow-up chest x-ray showed no pneumothorax.
--- NOTE | 2021-08-02 06:25 | PCM.RX.CS ---
Consult Pharmacy has been consulted to manage selected antiobiotic: Vancomycin Type of Consult: New start Suspected Infection: Sepsis Labs: Sodium 133 mmol/L (136-145) L 08/01/21 20:45 Potassium 4.3 mmol/L (3.5-5.1) 08/01/21 20:45 Chloride 99 mmol/L (98-107) 08/01/21 20:45 Carbon Dioxide 23.0 mmol/L (21.0-32.0) 08/01/21 20:45 Anion Gap 11 (5-15) 08/01/21 20:45 BUN 40 mg/dL (7-18) H 08/01/21 20:45 Creatinine 3.74 mg/dL (0.55-1.02) H 08/01/21 20:45 Est GFR (MDRD) Af Amer 16 mL/min (>60) L 08/01/21 20:45 Est GFR (MDRD) Non-Af 13 mL/min (>60) L 08/01/21 20:45 BUN/Creatinine Ratio 10.7 RATIO (10-20) 08/01/21 20:45 Glucose 127 mg/dL (74-106) H 08/01/21 20:45 Microbiology: Microbiology 08/01/21 21:34 Urine, Clean Catch Legionella Antigen - Final 08/01/21 21:34 Urine, Clean Catch Streptococcus pneumoniae Antigen (M - Final 08/01/21 21:08 Nasal Secretion SARS-CoV-2 Antigen (Rapid) - Final Goal Trough: 15-20 mcg/mL Pharmacy Plan for Drug Dosing: Pharmacy Service will continue to monitor and adjust dosing as required. Medications Vancomycin HCl 1,250 mg/ (Sodium Chloride) 275 mls @ 167 mls/hr IV Q12H [place] Discontinued Medications Vancomycin HCl 1,500 mg/ (Sodium Chloride) 530 mls @ 250 mls/hr IV X1 ONE Stop: 08/02/21 04:07 Last Admin: 08/02/21 03:30 Dose: 250 mls/hr Documented by: Follow-Up Labs: Trough Vancomycin Labs to be done on [date and time ordered]: 08/04 @ 0300
[2021-08-02 06:31] LABS: Absolute Neutrophil Count 12.2 X10^3/uL (2.0-7.7); Basophil# 0.06 X10^3/uL; Basophil% 0.4 % (0-1); Eosinophil# 0.32 X10^3/uL; Eosinophils% 2.2 % (0-5); Hematocrit 28.1 % (37-47); Hemoglobin 8.7 g/dL (12.0-15.0); Lymphocyte % 8.1 % (19-41); Mean Corpuscular Hgb 30.5 pg (27.0-32.0); Mean Corpuscular Volume 98.6 fL (81-99); Mean Platelet Vol. 10.6 fl (6.2-12.0); Monocyte# 0.92 X10^3/uL; Monocyte% 6.2 % (0-10); NRBC Flagged by Analyzer 0 % (0-5); Neutrophil # 12.22 X10^3/uL (2.7-7.7); Neutrophil % 82.4 % (47-70); POSITIVE MORPHOLOGY YES; Platelet Count 156 K/mm3 (150-450); RBC Distribution Width CV 14.4 % (11.6-14.6); RBC Distribution Width SD 52.3 fl (35.1-43.9); Red Blood Count 2.85 M/mm3 (4.2-5.4); White Blood Count 14.8 K/mm3 (4.4-11.0)
[2021-08-02 06:36] LABS: Differential Indicated SCAN CRITERIA MET
[2021-08-02] MEDS: Acyclovir 200 MG Capsule 400 MG PO ×3 (06:43→21:38)
[2021-08-02] MEDS: Levothyroxine 88 MCG Tablet PO (06:43)
[2021-08-02] MEDS: Heparin Injection (Vial) 5,000 UNIT/ML VIAL 5000 UNIT SC ×3 (06:43→21:35)
[2021-08-02] MEDS: Dicyclomine 10 MG Capsule 20 MG PO ×3 (06:43→16:15)
[2021-08-02 06:46] LABS: Anion Gap 9 (5-15); BUN 35 mg/dL (7-18); Chloride 104 mmol/L (98-107); EST Glomerular Filtration Rate 19 mL/min (>60); Est Glom Filt Rate - Afr Amer 23 mL/min (>60); Estimated Creatinine Clearance 20.74 ml/min; Glucose 115 mg/dL (74-106); Sodium Level 133 mmol/L (136-145)
--- NOTE | 2021-08-02 07:05 | US_ITS ---
EXAM: US RETROPERITONEAL COMPLETE, RENAL CLINICAL INDICATION: Acute kidney injury TECHNIQUE: Grayscale and color Doppler sonographic evaluation of the retroperitoneum was performed. This report was created using [employer] report Yo technology. COMPARISON: None. FINDINGS: RIGHT KIDNEY: Unremarkable. No hydronephrosis. No shadowing calculus. No focal lesion. No perinephric collection is demonstrated. LEFT KIDNEY: Unremarkable. No hydronephrosis. No shadowing calculus. No focal lesion. No perinephric collection is demonstrated. BLADDER: Low-level echoes layering dependently within the urinary bladder lumen. No shadowing calculi. US/Kidney and Bladder IMPRESSION: 1. No hydronephrosis. 2. Proteinaceous, hemorrhagic or infectious debris layer dependently within the urinary bladder. Electronically Signed: Toni Engel MD ([place]) at 8:21 EDT , Service support ,
[2021-08-02 07:13] LABS: Differential Comment SCANNED
[2021-08-02] MEDS: LINAGLIPTIN 5 MG TABLET PO (07:59)
[2021-08-02] MEDS: Magnesium Chloride 64 MG Delay Rel.Tablet 128 MG PO (07:59)
[2021-08-02] MEDS: Ascorbic Acid 500 MG Tablet PO (07:59)
[2021-08-02] MEDS: Multivitamins,Therapeutic Tablet 1 TABLET PO (07:59)
[2021-08-02] MEDS: Venlafaxine HCl 75 MG Tablet PO ×2 (08:00→21:34)
[2021-08-02] MEDS: DULoxetine Hcl 60 MG Capsule PO ×2 (08:00→21:33)
[2021-08-02] MEDS: Pantoprazole Sodium 40 MG Tablet PO ×2 (08:00→21:37)
[2021-08-02] MEDS: Calcium Carb/Vitamin D 1 TABLET Tablet PO (08:01)
[2021-08-02] MEDS: Loratadine 10 MG Tablet PO (08:01)
[2021-08-02] MEDS: Aspirin E.C. 81 MG Tablet PO (08:01)
[2021-08-02] MEDS: Fluticasone 0.05% 1 SPRAY NASAL.SRY 2 SPRAY NASAL (08:01)
[2021-08-02] MEDS: Pregabalin 50 MG Capsule 100 MG PO (08:09)
--- NOTE | 2021-08-02 08:11 | EX.PCM.CONCC ---
Assessment & Plan Assessment/Plan (1) Septic shock: (2) Pneumonia of right upper lobe due to infectious organism: (3) UTI (urinary tract infection): QUALIFIERS: Urinary tract infection type: acute cystitis Hematuria presence: without hematuria Qualified Code(s): N30.00 - Acute cystitis without hematuria (4) Cardiomyopathy: (5) Chronic systolic (congestive) heart failure: PLAN: RECOMMENDATIONS: 1. Wean pressors as tolerated. Maintain MAP of [address] PICC line for probable long-term IV antibiotics 3. Consider infectious disease consult 4. Wean oxygen as tolerated 5. Consider hand imaging for evaluation of osteomyelitis 6. Continue empiric antibiotics for MDRO IMPRESSIONS: 1. Septic shock Multiple possible etiologies including right upper lobe pneumonia, UTI and right hand. Clinical suspicion for hematologic spread leading to multiple areas of infection. Clinical concern for gram-positive bacteria. Patient is on vancomycin and Zosyn at this time. Consider infectious disease opinion. Patient may require an MRI of the hand to evaluate for osteomyelitis. Clinical suspicion that long-term antibiotics will be required, so will have a PICC line placed over attempting another central line. Patient has received adequate fluid resuscitation. Patient carries a diagnosis of previous adrenal insufficiency, but is only requiring minimal pressor agents at this time. We will hold on stress dose steroids as this could slow wound healing. Patient would be at risk for MDRO given multiple antibiotic courses in the past. 2. Acute kidney injury on CKD stage III Clinical suspicion secondary to problem #1. Patient does have previous labs here at 1.3, but she reports that her baseline is around 1.8-1.9. Patient did have significant improvement following improvement of hemodynamics. We will continue to monitor. There is no indication for renal replacement therapy at this time. 3. Right hand wound Patient reported that this was closed at 1 point. We will have the wound nurse evaluate. Anticipate patient could follow-up with orthopedic surgeon as an outpatient if hemodynamics can be controlled. We will hold on plastics consult for now. 4. Reported cardiomyopathy Patient reportedly had a transient cardiomyopathy with an EF as low as 15% in January. Repeat echocardiogram in April showed an EF of 60%. Unclear if this represents Takatsubo. Patient's oxygenation status appears to be doing well at this time. Could consider repeat echocardiogram. 5. Morbid obesity/chronic pain syndrome/hyperlipidemia/hypertension Complicates care, management, recovery and prognosis. Hold antihypertensive medications. TIME: 37 minutes critical care time spent addressing patient's septic shock, acute kidney injury, review of all data and collaboration with care team (6 AM to 7 AM) HPI Consult Data Date of Consult: 08/02/21 HPI Narrative HPI Narrative: BILL CHOI is a 60 F, with past medical history listed below, who presents to [facility] on 08/01[facility]2021 secondary to fever, worsening swelling and discharge from the right hand. Patient reportedly had a trigger finger surgery in March that has been complicated by infection. Patient was reportedly on antibiotics since that time and this was discontinued on July 06. Over the last 2 to 3 days, patient had noted worsening swelling and drainage. Patient had also reported some congestion of the sinuses, but denied any vomiting, diarrhea or dysuria. Patient did state that she felt lightheaded when she was outside using her walker and fell. Squad was called and she was brought to the emergency room for evaluation. Patient does state that she has been treated for C. difficile in the past. On presentation to the ER, patient was afebrile with a heart rate of 90 and a blood pressure of 58/48. Patient was placed on 2 L nasal cannula to help with saturations. Patient was placed on Rocephin and Zithromax initially. Patient did receive 3 L of normal saline but remained hypotensive. Multiple attempts at a central line were unsuccessful, so patient was placed on low-dose pressors peripherally. Laboratory work-up showed a leukocytosis of 15.1, hemoglobin of 9.7 and a platelet count of 183. Patient's BUN and creatinine were noted to be 40 and 3.7 (baseline 1.8). Coagulation studies were relatively unremarkable and AST was elevated at 186. Lactate was 2.0 and urinalysis was suggestive of a possible UTI. Chest x-ray showed a right upper lobe infiltrate. Since being in the intensive care unit, a central line was once again attempted. This was unsuccessful and a repeat chest x-ray showed no complications. Patient reports that this has been an issue in the past. Patient states that she has been dealing with a hand infection for several months. Patient states that she has been receiving most of her care at [facility] by Dr. Viramontes who initially did the surgery. Patient reports she has had issues with acute kidney injury and chronic kidney disease before. Patient believes her creatinine is about 1.8-1.9 at baseline. Patient has had issues with congestive heart failure in the past, but does not use supplemental oxygen at baseline. Patient did report she had a documented fever of 104.1 ?F at home. Patient had started antibiotics 2 days prior to presentation. Patient does report a history of smoking, but denies any COPD. Review of systems otherwise negative from a constitutional, HEENT, respiratory, cardiovascular, GI, genitourinary, musculoskeletal, skin, neurologic, psychiatric and hematologic system unless stated above. [facility] Medical History ACTH deficiency Acute respiratory failure with hypoxia Allergic rhinitis Anemia Asthma Asthma exacerbation Atherosclerosis of coronary artery without angina pectoris Bilateral leg weakness Bone fracture Cardiomyopathy Carotid artery stenosis Carpal tunnel syndrome Chronic constipation with suspected IBS Chronic headaches Chronic systolic (congestive) heart failure CKD (chronic kidney disease) stage 3, GFR 30-59 ml/min Debility Essential hypertension Falls Flash pulmonary edema (01/16/21) Gait difficulty Gallstones GERD (gastroesophageal reflux disease) GI problem Herpes simplex History of Clostridium difficile infection History of CVA (cerebrovascular accident) (2018) History of depression History of emotional problems History of ischemic colitis Hx of diverticulitis of colon Hyperlipidemia Hypotension Hypothyroidism Irritable bowel syndrome Kidney disease Neuropathy Non-ischemic cardiomyopathy Normochromic normocytic anemia Obesity Osteoarthritis Osteopenia Osteoporosis Peripheral vascular disease Pulmonary edema Right hemiparesis Seasonal allergies Secondary adrenal insufficiency Stomach ulcer Trigeminal trophic syndrome Type 2 diabetes mellitus Home Medications levothyroxine 88 mcg PO DAILY 11/17/17 [History Last Taken 08/09/19] multivitamin 1 ea PO DAILY 12/29/17 [History Last Taken 08/09/19] pantoprazole 40 mg PO BID 03/29/19 [History Last Taken 08/09/19] amitriptyline 25 mg PO QHS 08/10/19 [History Last Taken Unknown] alendronate 70 mg PO Q7D@0700 #4 tab 08/25/19 [Rx Last Taken 10/12/20 07:00] rosuvastatin 20 mg tablet 20 mg PO QHS 08/25/19 [History Last Taken Unknown] sitagliptin 50 mg tablet 50 mg PO DAILY 09/04/19 [History Last Taken Unknown] hydrocodone-acetaminophen 7.5 tab PO BID 09/10/20 [History Last Taken Unknown] dicyclomine 20 mg PO TIDAC 10/19/20 [History Last Taken Unknown] duloxetine 60 mg PO BID 10/19/20 [History Last Taken Unknown] valacyclovir 500 mg PO DAILY 10/19/20 [History Last Taken Unknown] aspirin 81 mg PO DAILY@0800 #30 tab 01/17/21 [Rx Last Taken Unknown] fluticasone propionate 50 mcg/actuation nasal spray,suspension 2 spray INTRANASAL DAILY 01/26/21 [History Last Taken Unknown] tizanidine 4 mg tablet 4 mg PO Q8H PRN 01/26/21 [History Last Taken Unknown] ascorbate calcium (vitamin C) 500 mg tablet 500 mg PO DAILY 01/27/21 [History Last Taken Unknown] calcium carbonate 600 mg (1,500 mg)-vitamin D3 500 unit capsule 1 cap PO DAILY 01/27/21 [History Last Taken Unknown] cetirizine 10 mg capsule 10 mg PO DAILY 01/27/21 [History Last Taken Unknown] magnesium oxide 400 mg PO DAILY 01/27/21 [History Last Taken Unknown] venlafaxine 75 mg PO BID 02/04/21 [History Last Taken Unknown] carvedilol 25 mg tablet 25 mg PO Q12H PRN 02/18/21 [History Last Taken Unknown] Lactobacillus rhamnosus GG 10 billion cell capsule 1 cap PO DAILY 05/18/21 [History Last Taken Unknown] furosemide 40 mg tablet 40 mg PO DAILY PRN tablet 05/18/21 [History Last Taken Unknown] lorazepam 0.5 mg tablet 0.5 mg PO BID PRN 05/18/21 [History Last Taken Unknown] pregabalin 100 mg capsule 100 mg PO DAILY 05/18/21 [History Last Taken Unknown] sacubitril 49 mg-valsartan 51 mg tablet 1 tab PO BID 05/25/21 [History Last Taken Unknown] Clindamycin 100 mg PO/SL TID 08/01/21 [History Last Taken 08/01/21] Allergy/AdvReac Type Severity Reaction Status Date / Time adhesive Allergy skin Verified 08/01/21 20:36 irritation amlodipine [From Norvasc] Allergy tachycardia Verified 08/01/21 20:36 hydromorphone HCl Allergy Itching Verified 08/01/21 20:36 [From Dilaudid] sulfamethoxazole Allergy made my Verified 08/01/21 20:36 [From Bactrim] cold sore huge trimethoprim [From Bactrim] Allergy made my Verified 08/01/21 20:36 cold sore huge Family History Grandfather Alcoholism Grandmother Myocardial infarction Mother Arthritis Diverticulitis COPD (chronic obstructive pulmonary disease) Afib Thyroid disorder Father Arthritis Diabetes Myocardial infarction Heart disease Ischemic Hypertension Hyperlipidemia Brother Arthritis Aunt Breast cancer Sister Arthritis Thyroid disorder Skin cancer Uncle Diabetes Surgical History Ankle fracture Fracture of left femur History of angioplasty of peripheral vessel (2010) History of arthroscopic knee surgery History of back surgery History of bilateral knee replacement History of carpal tunnel release History of cholecystectomy History of intestine removal History of left heart catheterization (2011) History of tonsillectomy and adenoidectomy History of trigger finger History of ventral hernia repair Strangulated ventral hernia Social History Smoking Status: Former smoker how long ago did patient quit smokin alcohol intake: never substance use type: does not use what type of physical activity do you participate in: other ROS ROS Narrative See HPI Physical Exam Const alert, oriented x3 and no apparent distress General Appearance: cooperative, well kempt and well developed Nutritional Appearance: morbidly obese HEENT normocephalic, head/scalp atraumatic and moist oral mucous membranes Eyes PERRL and EOMs intact bilaterally Neck full ROM General: lymphadenopathy Chest inspection of chest normal Chest: symmetrical chest wall rise; Negative for crepitus Resp normal respiratory effort and no use of accessory muscles Effort and Inspection: able to speak in complete sentences Auscultation: clear to auscultation bilaterally; Negative for rales, rhonchi or wheezes Percussion: Negative for dullness Cardio regular rate, regular rhythm, S1 normal heart sound, S2 normal heart sound, no murmurs, no rub and no gallops GI normal to inspection, nondistended, normoactive bowel sounds no CVA tenderness Extremity Extremity Narrative: Edema right upper extremity. Wound dressed. Did not examine. Painful to the touch. Neuro oriented x3, CN's II-XII intact bilaterally, moves all extremities and no focal motor deficits Psych cooperative and affect normal Lab / Micro Data Result Diagrams: 08/02/21 06:15 08/02/21 06:15 Labs: Laboratory Results - last 24 hr 08/01/21 20:45: WBC 15.1 H, RBC 3.22 L, Hgb 9.7 L, Hct 31.3 L, MCV 97.2, MCH 30.1, MCHC 31.0 L, RDW Std Deviation 50.8 H, RDW Coeff of Lencho 14.3, Plt Count 183, MPV 11.0, Immature Gran % (Auto) 1.200 H, Neut % (Auto) 80.0 H, Lymph % (Auto) 9.1 L, [place] % (Auto) 7.8, Eos % (Auto) 1.6, Baso % (Auto) 0.3, Absolute Neuts (auto) 12.1 H, Absolute Lymphs (auto) 1.37, Nucleated RBC % 0, Differential Comment SCANNED 08/01/21 20:45: Sodium 133 L, Potassium 4.3, Chloride 99, Carbon Dioxide 23.0, Anion Gap 11, BUN 40 H, Creatinine 3.74 H, Estim Creat Clear Calc 14.97, Est GFR (MDRD) Af Amer 16 L, Est GFR (MDRD) Non-Af 13 L, BUN/Creatinine Ratio 10.7, Glucose 127 H, Calcium 9.1, Total Bilirubin 0.40, AST 186 H, ALT 42, Alkaline Phosphatase 73, Total Protein 7.1, Albumin 2.6 L, Globulin 4.5 H, Albumin/Globulin Ratio 0.6 L 08/01/21 21:08: PT 15.2 H, INR 1.3, APTT 40.4 H 08/01/21 21:08: Lactic Acid 2.0 08/01/21 21:34: Urine Color Joleen, Urine Clarity Sl. Cloudy, Urine pH 5.0, Ur Specific [place] 1.015, Urine Protein 100 H, Urine Glucose (UA) Normal, Urine Ketones Negative, Urine Occult Blood 50 H, Urine Nitrite Negative, Urine Bilirubin Negative, Urine Urobilinogen Normal, Ur Leukocyte Esterase 500 H, Urine RBC 0-5 SEEN, Urine WBC 50-100 SEEN, Ur Squamous Epith Cells 0-5 SEEN, Urine Bacteria 2+, Urine Mucus 0 SEEN 08/02/21 06:15: WBC 14.8 H, RBC 2.85 L, Hgb 8.7 L, Hct 28.1 L, MCV 98.6, MCH 30.5, MCHC 31.0 L, RDW Std Deviation 52.3 H, RDW Coeff of Lencho 14.4, Plt Count 156, MPV 10.6, Immature Gran % (Auto) 0.700, Neut % (Auto) 82.4 H, Lymph % (Auto) 8.1 L, [place] % (Auto) 6.2, Eos % (Auto) 2.2, Baso % (Auto) 0.4, Absolute Neuts (auto) 12.2 H, Absolute Lymphs (auto) 1.20, Nucleated RBC % 0, Differential Comment SCANNED 08/02/21 06:15: Sodium 133 L, Potassium 4.0, Chloride 104, Carbon Dioxide 20.0 L, Anion Gap 9, BUN 35 H, Creatinine 2.70 H, Estim Creat Clear Calc 20.74, Est GFR (MDRD) Af Amer 23 L, Est GFR (MDRD) Non-Af 19 L, BUN/Creatinine Ratio 13.0, Glucose 115 H, Calcium 8.0 L Micro: Microbiology 08/01/21 21:34 Urine, Clean Catch Legionella Antigen - Final 08/01/21 21:34 Urine, Clean Catch Streptococcus pneumoniae Antigen (M - Final 08/01/21 21:08 Nasal Secretion SARS-CoV-2 Antigen (Rapid) - Final Rhythm Strip Rhythm Strip: Sinus Rhythm Rate: 86 Ectopy: None Radiology Impression Chest X-Ray 08/01/21 21:13 IMPRESSION: Right upper lobe infiltrate. Electronically Signed: Khalif Mojica MD at 21:24 EDT , Service support , Chest X-Ray 08/02/21 01:19 IMPRESSION: No new line or tube is demonstrated. Unchanged appearance of right upper lung infiltrate. No new abnormal finding. Electronically Signed: Jordi Cole MD at 2:39 EDT Tel , Service support , Chest X-Ray 08/02/21 03:00 IMPRESSION: No finding of pneumothorax. Unchanged left upper lung opacity. Electronically Signed: Jordi Cole MD at 4:15 EDT Tel , Service support , Charges/Coding Procedures Hospitalists Procedures: [id number] Critial Care 1st Hr
--- NOTE | 2021-08-02 08:18 | CASEMGMT ---
LW/Healthcare POA scanned into summary tab of Dee ponce is listed as pt's healthcare POA. MYNOR Saunders
[2021-08-02] MEDS: tiZANidine HCl 2 MG Tablet 4 MG PO ×2 (08:20→21:38)
[2021-08-02 09:42] LABS: Lactic Acid 1.1 mmol/L (0.4-1.9)
[2021-08-02] MEDS: HYDROcodone Bitartrate/Apap 5/325 Tablet PO ×2 (10:35→21:36)
--- NOTE | 2021-08-02 11:35 | CASEMGMT ---
RN CM Face to Face with patient for initial transition planning/care coordination assessment. RN CM introduced self and role at [facility]. Patient lying in bed, alert and oriented. Patient willing to participate in assessment and is able to answer all questions appropriately. Care providers, pharmacy, and demographics verified. Patient wishes to discharge home, denies need for home health at this time. Patient states she has no further needs or concerns at this time. CM to follow for discharge planning needs that may arise. PCP: Brian Specialists: Aaron, Ortho; Arthur, transition lead; Delilah, Infectious Disease Preferred Pharmacy: [facility] Insurance: [facility] dual MCR Prescription Benefit: yes Living Will/HPOA: yes, Dee Michaud LNOK: sister Living Arrangements: Patient lives alone in single story apartment on the first floor. Patient states she is independent for self care. Transportation: self/sisters DME/HHC: Patient states she tub bench, raised toilet, grab bars, lift chair, walker, wheelchair, and medical alert. Patient has previously been to [facility]. Patient has had [facility] in the past. Patient is active with [employer] and has Tamiko as CM. Patient has aides through [employer] 2x/week 3hrs/day. Patient is also active with [facility] Disposition Plan: Patient to discharge home with family support and follow-up plans in place. Bella HERNANDEZ, RN, CM
[2021-08-02] MEDS: 0.9% Saline Lock 10 ML Syringe IV ×2 (11:47→21:33)
--- NOTE | 2021-08-02 13:49 | WOUNDNOTE ---
wound photo: right hand
--- NOTE | 2021-08-02 17:45 | PN.HOSP_ITS ---
Hospitalist Note Ms. Michaud is a 60-year-old white female who was admitted early this morning with septic shock. The patient has multiple sources including pulmonary, urine, and right hand wound. She remains on pressors at this time but clinically looks stable. She is on cefepime and vancomycin for antibiotics and cultures are pending at this time. She states her doctor at [facility] is Dr. Viramontes and he follows with her and [place]. She does request I get a hold of him. I will try to do so tomorrow. Retroperitoneal ultrasound was done this morning due to her shock but showed no signs of blockages or stones and no [place]. Urine at this time is growing a gram-negative jacqueline. And Gram stain from hand shows gram-positive cocci.
[2021-08-02] MEDS: Amitriptyline 25 MG Tablet PO (21:35)
[2021-08-02] MEDS: Atorvastatin Calcium 40 MG Tablet 20 MG PO (21:36)
[2021-08-02] MEDS: MELATONIN 3 MG TABLET PO (21:48)
[2021-08-03] VITALS (28 sets, daily range): BP systolic 81–143; BP diastolic 49–102; PULSE 86–115; RESP 12–24; TEMP 36.3–37.2; O2SAT 92–100
[2021-08-03 03:43] LABS: Absolute Lymphocyte Count 1.05 X10^3/uL (0.83-4.51); Basophil# 0.05 X10^3/uL; Basophil% 0.5 % (0-1); Eosinophil# 0.24 X10^3/uL; Eosinophils% 2.4 % (0-5); Hematocrit 25.9 % (37-47); Lymphocyte # 1.05 X10^3/ul (0.83-4.51); Lymphocyte % 10.4 % (19-41); Mean Corp Hgb Conc 30.9 g/dL (32-36); Mean Corpuscular Hgb 30.7 pg (27.0-32.0); Mean Corpuscular Volume 99.2 fL (81-99); Mean Platelet Vol. 10.4 fl (6.2-12.0); Monocyte# 0.64 X10^3/uL; Monocyte% 6.4 % (0-10); NRBC Flagged by Analyzer 0 % (0-5); Neutrophil # 8.02 X10^3/uL (2.7-7.7); Neutrophil % 79.7 % (47-70); Platelet Count 144 K/mm3 (150-450); RBC Distribution Width CV 14.3 % (11.6-14.6); RBC Distribution Width SD 51.8 fl (35.1-43.9); Red Blood Count 2.61 M/mm3 (4.2-5.4); White Blood Count 10.1 K/mm3 (4.4-11.0)
[2021-08-03 04:01] LABS: ALB/GLOB Ratio 0.5 RATIO (0.9-2.4); AST(SGOT) 122 U/L (15-37); Alanine Aminotransfer ALT/SGPT 41 U/L (13-56); Albumin, Serum 1.9 g/dL (3.2-5.0); Alkaline Phosphatase 62 U/L (45-117); Anion Gap 10 (5-15); BUN 28 mg/dL (7-18); BUN/Creat Ratio 16.9 RATIO (10-20); Calcium,Total 7.8 mg/dL (8.5-10.1); Chloride 109 mmol/L (98-107); Creatinine, Serum 1.66 mg/dL (0.55-1.02); EST Glomerular Filtration Rate 33 mL/min (>60); Est Glom Filt Rate - Afr Amer 40 mL/min (>60); Estimated Creatinine Clearance 33.74 ml/min; Globulin 3.8 g/dL (2.2-4.2); Glucose 113 mg/dL (74-106); Potassium 3.9 mmol/L (3.5-5.1); Protein, Total 5.7 g/dL (6.4-8.2); Sodium Level 138 mmol/L (136-145)
[2021-08-03] MEDS: Heparin Injection (Vial) 5,000 UNIT/ML VIAL 5000 UNIT SC ×3 (06:21→21:57)
[2021-08-03] MEDS: Acyclovir 200 MG Capsule 400 MG PO ×3 (06:21→21:56)
[2021-08-03] MEDS: Levothyroxine 88 MCG Tablet PO (06:21)
[2021-08-03] MEDS: Dicyclomine 10 MG Capsule 20 MG PO ×3 (06:23→15:01)
--- NOTE | 2021-08-03 06:27 | PCM.PN.INT ---
Assessment & Plan Assessment/Plan (1) Septic shock: (2) Pneumonia of right upper lobe due to infectious organism: (3) UTI (urinary tract infection): QUALIFIERS: Urinary tract infection type: acute cystitis Hematuria presence: without hematuria Qualified Code(s): N30.00 - Acute cystitis without hematuria (4) Cardiomyopathy: (5) Chronic systolic (congestive) heart failure: PLAN: RECOMMENDATIONS: 1. Monitor in intensive care through the day. Possible transfer in afternoon 2. Consult ID for probable long-term IV antibiotics 3. Continue antibiotics pending culture results 4. Wean oxygen as tolerated 5. Consider hand imaging for evaluation of osteomyelitis 6. Continue empiric antibiotics for MDRO IMPRESSIONS: 1. Septic shock Multiple possible etiologies including right upper lobe pneumonia, UTI and right hand. Clinical suspicion for hematologic spread leading to multiple areas of infection. Clinical concern for gram-positive bacteria. Patient is on vancomycin and Zosyn at this time. Patient may require an MRI of the hand to evaluate for osteomyelitis. We will consult infectious disease for opinion. Patient is typically cared [facility] at the [facility], so MRI could potentially be done as an outpatient. Patient appears to be responding to current antibiotics, so we will continue for now pending culture data. 2. Acute kidney injury on CKD stage III Improving. Clinical suspicion secondary to problem #1. Patient does have previous labs here at 1.3, but she reports that her baseline is around 1.8-1.9. Patient did have significant improvement following improvement of hemodynamics. We will continue to monitor. There is no indication for renal replacement therapy at this time. 3. Right hand wound Patient reported that this was closed at 1 point. We will have the wound nurse evaluate. Anticipate patient could follow-up with orthopedic surgeon as an outpatient if hemodynamics can be controlled. We will hold on plastics consult for now. 4. Reported cardiomyopathy Patient reportedly had a transient cardiomyopathy with an EF as low as 15% in January. Repeat echocardiogram in April showed an EF of 60%. Unclear if this represents Takatsubo. Patient's oxygenation status appears to be doing well at this time. Could consider repeat echocardiogram. 5. Morbid obesity/chronic pain syndrome/hyperlipidemia/hypertension Complicates care, management, recovery and prognosis. Hold antihypertensive medications. Subjective Subjective Patient did okay overnight. Patient did have some hypotension requiring reinitiation of Levophed, but this was able to be discontinued at approximately 4 AM. No bleeding has been reported. Patient is currently tolerating room air. Patient states her right hand is improved compared to previous. Objective Data Objective Data Vital Signs: Vital Signs Temp Pulse Resp BP Pulse Ox 36.3 C L 86 12 110/76 99 08/03/21 04:00 08/03/21 05:00 08/03/21 05:00 08/03/21 05:00 08/03/21 05:00 Oxygen Flow Rate (L/min) 4 Oxygen Delivery Method Room Air Weight: 115.439 kg Body Mass Index (BMI) 40.0 Intake & Output: Intake and Output for Last 24 Hours 08/01/21 08/02/21 08/03/21 23:59 23:59 23:59 Intake Total 3050 / 3050 1951.18 / 1954.98 18.81 / 18.81 Output Total 600 / 600 Balance 3050 / 3050 1351.18 / 1354.98 18.81 / 18.81 Lab / Micro Data Result Diagrams: 08/03/21 03:30 08/03/21 03:30 Labs: Laboratory Results - last 24 hr 08/01/21 21:34: Urine Color Joleen, Urine Clarity Sl. Cloudy, Urine pH 5.0, Ur Specific [place] 1.015, Urine Protein 100 H, Urine Glucose (UA) Normal, Urine Ketones Negative, Urine Occult Blood 50 H, Urine Nitrite Negative, Urine Bilirubin Negative, Urine Urobilinogen Normal, Ur Leukocyte Esterase 500 H, Urine RBC 0-5 SEEN, Urine WBC 50-100 SEEN, Ur Squamous Epith Cells 0-5 SEEN, Urine Bacteria 2+, Urine Mucus 0 SEEN 08/02/21 02:10: Lactic Acid 1.1 08/02/21 06:15: WBC 14.8 H, RBC 2.85 L, Hgb 8.7 L, Hct 28.1 L, MCV 98.6, MCH 30.5, MCHC 31.0 L, RDW Std Deviation 52.3 H, RDW Coeff of Lencho 14.4, Plt Count 156, MPV 10.6, Immature Gran % (Auto) 0.700, Neut % (Auto) 82.4 H, Lymph % (Auto) 8.1 L, [place] % (Auto) 6.2, Eos % (Auto) 2.2, Baso % (Auto) 0.4, Absolute Neuts (auto) 12.2 H, Absolute Lymphs (auto) 1.20, Nucleated RBC % 0, Differential Comment SCANNED 08/02/21 06:15: Sodium 133 L, Potassium 4.0, Chloride 104, Carbon Dioxide 20.0 L, Anion Gap 9, BUN 35 H, Creatinine 2.70 H, Estim Creat Clear Calc 20.74, Est GFR (MDRD) Af Amer 23 L, Est GFR (MDRD) Non-Af 19 L, BUN/Creatinine Ratio 13.0, Glucose 115 H, Calcium 8.0 L 08/03/21 03:30: WBC 10.1, RBC 2.61 L, Hgb 8.0 L, Hct 25.9 L, MCV 99.2 H, MCH 30.7, MCHC 30.9 L, RDW Std Deviation 51.8 H, RDW Coeff of Lencho 14.3, Plt Count 144 L, MPV 10.4, Immature Gran % (Auto) 0.600, Neut % (Auto) 79.7 H, Lymph % (Auto) 10.4 L, [place] % (Auto) 6.4, Eos % (Auto) 2.4, Baso % (Auto) 0.5, Absolute Neuts (auto) 8.0 H, Absolute Lymphs (auto) 1.05, Nucleated RBC % 0 08/03/21 03:30: Sodium 138, Potassium 3.9, Chloride 109 H, Carbon Dioxide 19.0 L, Anion Gap 10, BUN 28 H, Creatinine 1.66 H, Estim Creat Clear Calc 33.74, Est GFR (MDRD) Af Amer 40 L, Est GFR (MDRD) Non-Af 33 L, BUN/Creatinine Ratio 16.9, Glucose 113 H, Calcium 7.8 L, Total Bilirubin 0.20, AST 122 H, ALT 41, Alkaline Phosphatase 62, Total Protein 5.7 L, Albumin 1.9 L, Globulin 3.8, Albumin/Globulin Ratio 0.5 L Micro: Microbiology 08/02/21 07:05 Wound - Hand Gram Stain - Final 08/01/21 21:34 Urine, Clean Catch Urine Culture - Preliminary Gram negative jacqueline 08/01/21 21:34 Urine, Clean Catch Legionella Antigen - Final 08/01/21 21:34 Urine, Clean Catch Streptococcus pneumoniae Antigen (M - Final 08/01/21 21:08 Nasal Secretion SARS-CoV-2 Antigen (Rapid) - Final Radiography Diagnostic Testing: Radiology Impression Renal Ultrasound 08/02/21 07:05 IMPRESSION: 1. No hydronephrosis. 2. Proteinaceous, hemorrhagic or infectious debris layer dependently within the urinary bladder. Electronically Signed: Toni Engel MD ([place]) at 8:21 EDT , Service support , Rhythm Strip Rhythm Strip: Sinus Rhythm Rate: 86 Ectopy: None Physical Exam Const alert, oriented x3 and no apparent distress General Appearance: cooperative, well kempt and well developed Nutritional Appearance: morbidly obese HEENT normocephalic, head/scalp atraumatic and moist oral mucous membranes Eyes PERRL and EOMs intact bilaterally Neck full ROM General: lymphadenopathy Chest inspection of chest normal Chest: symmetrical chest wall rise; Negative for crepitus Resp normal respiratory effort and no use of accessory muscles Effort and Inspection: able to speak in complete sentences Auscultation: clear to auscultation bilaterally; Negative for rales, rhonchi or wheezes Percussion: Negative for dullness Cardio regular rate, regular rhythm, S1 normal heart sound, S2 normal heart sound, no murmurs, no rub and no gallops GI normal to inspection, nondistended, normoactive bowel sounds no CVA tenderness Extremity Extremity Narrative: Edema right upper extremity. Wound dressed. Did not examine. Painful to the touch. PICC noted Neuro oriented x3, CN's II-XII intact bilaterally, moves all extremities and no focal motor deficits Psych cooperative and affect normal Charges/Coding Visit Charges Inpatient E&M: 05377 Subs Hosp L3
[2021-08-03] MEDS: CHLORHEXIDINE GLUC 2% CLOTH 1 EACH TOWELETTE TOPICAL (06:31)
[2021-08-03] MEDS: Venlafaxine HCl 75 MG Tablet PO ×2 (07:41→21:57)
[2021-08-03] MEDS: Calcium Carb/Vitamin D 1 TABLET Tablet PO (07:41)
[2021-08-03] MEDS: Aspirin E.C. 81 MG Tablet PO (07:41)
[2021-08-03] MEDS: LINAGLIPTIN 5 MG TABLET PO (07:42)
[2021-08-03] MEDS: Magnesium Chloride 64 MG Delay Rel.Tablet 128 MG PO (07:42)
[2021-08-03] MEDS: Loratadine 10 MG Tablet PO (07:42)
[2021-08-03] MEDS: Ascorbic Acid 500 MG Tablet PO (07:42)
[2021-08-03] MEDS: DULoxetine Hcl 60 MG Capsule PO ×2 (07:42→21:55)
[2021-08-03] MEDS: Pantoprazole Sodium 40 MG Tablet PO ×2 (07:42→21:56)
[2021-08-03] MEDS: Fluticasone 0.05% 1 SPRAY NASAL.SRY 2 SPRAY NASAL (07:43)
[2021-08-03] MEDS: Multivitamins,Therapeutic Tablet 1 TABLET PO (07:43)
[2021-08-03] MEDS: HYDROcodone Bitartrate/Apap 5/325 Tablet PO ×2 (07:46→21:55)
[2021-08-03] MEDS: Pregabalin 50 MG Capsule 100 MG PO (07:46)
--- NOTE | 2021-08-03 10:06 | WOUNDNOTE ---
right hand dressing changed per DRE Richardson.
--- NOTE | 2021-08-03 14:06 | CASEMGMT ---
Social Work Pt is current with the Waiver Program through [facility] and Eugenia Menjivar is her [employer]al [employer] ([phone]). [facility] notified nutrition tech coverage staff of pt admission. PT currently has 6 hour of aid services per week through [facility] and an emergency response system. [facility] will update [facility] at time of discharge. CORBY Zuniga
--- NOTE | 2021-08-03 17:45 | PN.HOSP_ITS ---
Subjective Subjective Patient states she is feeling much better today. Was able to come off vasopressors this morning early and still remained stable. Has no subjective complaints at this time. Objective Data Objective Data Vital Signs: Vital Signs Temp Pulse Resp BP Pulse Ox 98.2 F 106 H 16 136/81 H 95 08/03/21 16:00 08/03/21 17:00 08/03/21 17:00 08/03/21 17:00 08/03/21 17:00 Oxygen Flow Rate (L/min) 4 Oxygen Delivery Method Room Air Weight: 115.439 kg Body Mass Index (BMI) 40.0 Intake & Output: Intake and Output for Last 24 Hours 08/01/21 08/02/21 08/03/21 23:59 23:59 23:59 Intake Total 3050 / 3050 1951.18 / 1954.98 1493.31 / 1493.31 Output Total 600 / 600 800 / 800 Balance 3050 / 3050 1351.18 / 1354.98 693.31 / 693.31 Lab / Micro Data Result Diagrams: 08/03/21 03:30 08/03/21 03:30 Labs: Laboratory Results - last 24 hr 08/03/21 03:30: WBC 10.1, RBC 2.61 L, Hgb 8.0 L, Hct 25.9 L, MCV 99.2 H, MCH 30.7, MCHC 30.9 L, RDW Std Deviation 51.8 H, RDW Coeff of Lencho 14.3, Plt Count 144 L, MPV 10.4, Immature Gran % (Auto) 0.600, Neut % (Auto) 79.7 H, Lymph % (Auto) 10.4 L, [place] % (Auto) 6.4, Eos % (Auto) 2.4, Baso % (Auto) 0.5, Absolute Neuts (auto) 8.0 H, Absolute Lymphs (auto) 1.05, Nucleated RBC % 0 08/03/21 03:30: Sodium 138, Potassium 3.9, Chloride 109 H, Carbon Dioxide 19.0 L , Anion Gap 10, BUN 28 H, Creatinine 1.66 H, Estim Creat Clear Calc 33.74, Est GFR (MDRD) Af Amer 40 L, Est GFR (MDRD) Non-Af 33 L, BUN/Creatinine Ratio 16.9, Glucose 113 H, Calcium 7.8 L, Total Bilirubin 0.20, AST 122 H, ALT 41, Alkaline Phosphatase 62, Total Protein 5.7 L, Albumin 1.9 L, Globulin 3.8, Albumin/Globulin Ratio 0.5 L Micro: Microbiology 08/02/21 07:05 Wound - Hand Gram Stain - Final 08/02/21 07:05 Wound - Hand Wound Culture - Preliminary Staphylococcus aureus 08/01/21 21:34 Urine, Clean Catch Urine Culture - Final Klebsiella oxytoca 08/01/21 21:34 Urine, Clean Catch Legionella Antigen - Final 08/01/21 21:34 Urine, Clean Catch Streptococcus pneumoniae Antigen (M - Final 08/01/21 21:08 Nasal Secretion SARS-CoV-2 Antigen (Rapid) - Final Rhythm Strip Rhythm Strip: Sinus Rhythm Rate: 86 Ectopy: None Physical Exam Const alert, oriented x3, no apparent distress and well nourished Constitutional Narrative: Morbidly obese white female sitting up in bed, watching television and talking on the phone, appears comfortable, nontoxic Exam Limitations: no limitations Nutritional Appearance: morbidly obese HEENT head/scalp atraumatic and moist oral mucous membranes HEENT Narrative: No thrush, Mallampati 3 Head and Scalp: normocephalic Resp normal respiratory effort, no retractions, no use of accessory muscles and clear to auscultation bilaterally Auscultation: Negative for crackles, rales, rhonchi or wheezes Cardio regular rate, regular rhythm, S1 normal heart sound, S2 normal heart sound, no murmurs, no rub, no gallops, no clicks and no JVD GI normal to inspection, nondistended, normoactive bowel sounds, soft to palpation, non-tender and non-distended Extremity no clubbing, cyanosis or edema Extremity Narrative: Right hand on the palmar surface has an open area near the first metacarpal that is draining what appears to be serous fluid at this time the surrounding area is not erythematous or tender and overall the wound looks clean Peripheral Pulses: Yes pulses 2+ throughout Skin no rashes or lesions noted, skin turgor normal, no jaundice, no petechiae and no mottling Neuro oriented x3, moves all extremities and no focal motor deficits Sensorium / Orientation: awake and alert Speech: speech normal Psych affect normal Assessment & Plan Assessment/Plan (1) Septic shock: (2) UTI (urinary tract infection): QUALIFIERS: Urinary tract infection type: acute cystitis Hematuria presence: without hematuria Qualified Code(s): N30.00 - Acute cystitis without hematuria (3) Pneumonia of right upper lobe due to infectious organism: (4) Infected surgical wound: PLAN: Septic shock -Shock is now resolved -Pressors were discontinued this morning -Infectious disease consult pending -Multiple sources identified including urine, pulmonary, and right hand -Continue Vanco and Zosyn -Consider right hand imaging with CT but will defer to ID at this time -Wound is currently growing staph aureus and urine is growing Klebsiella -Cultures remain pending -Since now hemodynamically stable will transfer from ICU ARTIE on CKD stage II -Serum creatinine appears to be 1.8-1.9 but improved currently at 1.3 -Continue to monitor -Void nephrotoxins as able Right hand postoperative wound -Patient has had issues with this since March but states that this was completely closed until Sunday of this past week -Has been undergoing ongoing treatment for this -I have paged her primary surgeon and he is in the OR today but will call me tomorrow -Consider CT of the hand but will defer to ID at this time History of cardiomyopathy/HTN/HPL -Patient had an EF of 15% in January but echocardiogram from April shows an EF of 60% -Evidently her cardiomyopathy has resolved -Patient is on Lasix, valsartan and beta-sulaiman -Restart home antihypertensives as blood pressure is now starting to be elevated and she is stable off vasopressors -Continue statin -Continue aspirin Chronic pain -Continue home medications Morbid obesity -Complicates treatment, prognosis, and outcomes -Recommend weight loss -BMI is 41.1 Osteoporosis -Continue alendronate upon discharge -Continue calcium carbonate Seasonal allergies -Continue H2 sulaiman Depression -Continue duloxetine Hypothyroidism -Continue levothyroxine GERD -Continue Protonix DM-2 -Continue home oral medications -Blood sugars are relatively stable -Accu-Cheks DVT prophylaxis -Continue heparin CODE STATUS -Full code Charges/Coding Visit Charges Inpatient E&M: 17255 Subs Hosp L2
--- NOTE | 2021-08-03 19:59 | PCM.CONS.GEN ---
Assessment & Plan Assessment/Plan (1) Infected surgical wound: (2) Septic shock: PLAN: Wound cx hand with staph aureus. Sputum cx pending. Covid neg. ARTIE improved. Wbc better. Off pressor. UA with 50-100 wbc, ucx with klebs. Cont vanc/cefepime. Will follow, thank you (3) Pneumonia of right upper lobe due to infectious organism: HPI Consult Data Date of Consult: 08/03/21 HPI Narrative HPI Narrative: BILL CHOI, is a 60 F who presented with sx starting around 07/30 to 07/31 with fever and chills. Had R hand infection in April, admitted to [facility], treated with iv vanc/ceftriaxone which completed at start of June. Wound never quit healed, now more swelling. Had new cough, not feeling well. Is covid vaccinated. Came to ED 08/01, admitted on vanc/cefepime for septic shock. Feeling better, moving out of icu. Full ROS performed and neg except as noted above. No dysuria. FOR[facility]LY [facility], [facility] Medical History ACTH deficiency Acute respiratory failure with hypoxia Allergic rhinitis Anemia Asthma Asthma exacerbation Atherosclerosis of coronary artery without angina pectoris Bilateral leg weakness Bone fracture Cardiomyopathy Carotid artery stenosis Carpal tunnel syndrome Chronic constipation with suspected IBS Chronic headaches Chronic systolic (congestive) heart failure CKD (chronic kidney disease) stage 3, GFR 30-59 ml/min Debility Essential hypertension Falls Flash pulmonary edema (01/16/21) Gait difficulty Gallstones GERD (gastroesophageal reflux disease) GI problem Herpes simplex History of Clostridium difficile infection History of CVA (cerebrovascular accident) (2018) History of depression History of emotional problems History of ischemic colitis Hx of diverticulitis of colon Hyperlipidemia Hypotension Hypothyroidism Irritable bowel syndrome Kidney disease Neuropathy Non-ischemic cardiomyopathy Normochromic normocytic anemia Obesity Osteoarthritis Osteopenia Osteoporosis Peripheral vascular disease Pulmonary edema Right hemiparesis Seasonal allergies Secondary adrenal insufficiency Stomach ulcer Trigeminal trophic syndrome Type 2 diabetes mellitus Home Medications levothyroxine 88 mcg PO DAILY 11/17/17 [History Last Taken 08/09/19] multivitamin 1 ea PO DAILY 12/29/17 [History Last Taken 08/09/19] pantoprazole 40 mg PO BID 03/29/19 [History Last Taken 08/09/19] amitriptyline 25 mg PO QHS 08/10/19 [History Last Taken Unknown] alendronate 70 mg PO Q7D@0700 #4 tab 08/25/19 [Rx Last Taken 10/12/20 07:00] rosuvastatin 20 mg tablet 20 mg PO QHS 08/25/19 [History Last Taken Unknown] sitagliptin 50 mg tablet 50 mg PO DAILY 09/04/19 [History Last Taken Unknown] hydrocodone-acetaminophen 7.5 tab PO BID 09/10/20 [History Last Taken Unknown] dicyclomine 20 mg PO TIDAC 10/19/20 [History Last Taken Unknown] duloxetine 60 mg PO BID 10/19/20 [History Last Taken Unknown] valacyclovir 500 mg PO DAILY 10/19/20 [History Last Taken Unknown] aspirin 81 mg PO DAILY@0800 #30 tab 01/17/21 [Rx Last Taken Unknown] fluticasone propionate 50 mcg/actuation nasal spray,suspension 2 spray INTRANASAL DAILY 01/26/21 [History Last Taken Unknown] tizanidine 4 mg tablet 4 mg PO Q8H PRN 01/26/21 [History Last Taken Unknown] ascorbate calcium (vitamin C) 500 mg tablet 500 mg PO DAILY 01/27/21 [History Last Taken Unknown] calcium carbonate 600 mg (1,500 mg)-vitamin D3 500 unit capsule 1 cap PO DAILY 01/27/21 [History Last Taken Unknown] cetirizine 10 mg capsule 10 mg PO DAILY 01/27/21 [History Last Taken Unknown] magnesium oxide 400 mg PO DAILY 01/27/21 [History Last Taken Unknown] venlafaxine 75 mg PO BID 02/04/21 [History Last Taken Unknown] carvedilol 25 mg tablet 25 mg PO Q12H PRN 02/18/21 [History Last Taken Unknown] Lactobacillus rhamnosus GG 10 billion cell capsule 1 cap PO DAILY 05/18/21 [History Last Taken Unknown] furosemide 40 mg tablet 40 mg PO DAILY PRN tablet 05/18/21 [History Last Taken Unknown] lorazepam 0.5 mg tablet 0.5 mg PO BID PRN 05/18/21 [History Last Taken Unknown] pregabalin 100 mg capsule 100 mg PO DAILY 05/18/21 [History Last Taken Unknown] sacubitril 49 mg-valsartan 51 mg tablet 1 tab PO BID 05/25/21 [History Last Taken Unknown] Clindamycin 100 mg PO/SL TID 08/01/21 [History Last Taken 08/01/21] Allergy/AdvReac Type Severity Reaction Status Date / Time adhesive Allergy skin Verified 08/01/21 20:36 irritation amlodipine [From Norvasc] Allergy tachycardia Verified 08/01/21 20:36 hydromorphone HCl Allergy Itching Verified 08/01/21 20:36 [From Dilaudid] sulfamethoxazole Allergy made my Verified 08/01/21 20:36 [From Bactrim] cold sore huge trimethoprim [From Bactrim] Allergy made my Verified 08/01/21 20:36 cold sore huge Family History Grandfather Alcoholism Grandmother Myocardial infarction Mother Arthritis Diverticulitis COPD (chronic obstructive pulmonary disease) Afib Thyroid disorder Father Arthritis Diabetes Myocardial infarction Heart disease Ischemic Hypertension Hyperlipidemia Brother Arthritis Aunt Breast cancer Sister Arthritis Thyroid disorder Skin cancer Uncle Diabetes Surgical History Ankle fracture Fracture of left femur History of angioplasty of peripheral vessel (2010) History of arthroscopic knee surgery History of back surgery History of bilateral knee replacement History of carpal tunnel release History of cholecystectomy History of intestine removal History of left heart catheterization (2011) History of tonsillectomy and adenoidectomy History of trigger finger History of ventral hernia repair Strangulated ventral hernia Social History Smoking Status: Former smoker how long ago did patient quit smokin alcohol intake: never substance use type: does not use what type of physical activity do you participate in: other Physical Exam Const alert, oriented x3 and no apparent distress General Appearance: cooperative HEENT normocephalic and head/scalp atraumatic Eyes PERRL and EOMs intact bilaterally Neck supple and No nodes Resp normal air movement and clear to auscultation bilaterally Cardio regular rate and regular rhythm GI normal to inspection, nondistended, normoactive bowel sounds Extremity no clubbing, cyanosis or edema Skin Skin Narrative: R hand, reviewed photos Neuro CN's II-XII intact bilaterally Lab / Micro Data Result Diagrams: 08/03/21 03:30 08/03/21 03:30 Labs: Laboratory Results - last 24 hr 08/03/21 03:30: WBC 10.1, RBC 2.61 L, Hgb 8.0 L, Hct 25.9 L, MCV 99.2 H, MCH 30.7, MCHC 30.9 L, RDW Std Deviation 51.8 H, RDW Coeff of Lencho 14.3, Plt Count 144 L, MPV 10.4, Immature Gran % (Auto) 0.600, Neut % (Auto) 79.7 H, Lymph % (Auto) 10.4 L, [place] % (Auto) 6.4, Eos % (Auto) 2.4, Baso % (Auto) 0.5, Absolute Neuts (auto) 8.0 H, Absolute Lymphs (auto) 1.05, Nucleated RBC % 0 08/03/21 03:30: Sodium 138, Potassium 3.9, Chloride 109 H, Carbon Dioxide 19.0 L, Anion Gap 10, BUN 28 H, Creatinine 1.66 H, Estim Creat Clear Calc 33.74, Est GFR (MDRD) Af Amer 40 L, Est GFR (MDRD) Non-Af 33 L, BUN/Creatinine Ratio 16.9, Glucose 113 H, Calcium 7.8 L, Total Bilirubin 0.20, AST 122 H, ALT 41, Alkaline Phosphatase 62, Total Protein 5.7 L, Albumin 1.9 L, Globulin 3.8, Albumin/Globulin Ratio 0.5 L Micro: Microbiology 08/02/21 07:05 Wound - Hand Gram Stain - Final 08/02/21 07:05 Wound - Hand Wound Culture - Preliminary Staphylococcus aureus 08/01/21 21:34 Urine, Clean Catch Urine Culture - Final Klebsiella oxytoca Rhythm Strip Rhythm Strip: Sinus Rhythm Rate: 86 Ectopy: None
[2021-08-03] MEDS: Acetaminophen 325 MG Tablet 650 MG PO (20:55)
--- NOTE | 2021-08-03 21:29 | NURSING ---
Arely RN asked if I could check on this pt since she said she was having trouble breathing. Arely had given her tylenol. Pt c/o pain in right ribs. Worse with insp/exp. Seems like a very anxious individual. States she had been up to bathroom a little while ago. Oxygen was placed at 2L - 96%. 98.8. HR 115. 143/73. resp 20. Pt stated that the pain was starting to improve. Then stated I'm ok.
[2021-08-03] MEDS: Atorvastatin Calcium 40 MG Tablet 20 MG PO (21:57)
[2021-08-03] MEDS: Amitriptyline 25 MG Tablet PO (21:58)
[2021-08-03] MEDS: MELATONIN 3 MG TABLET PO (22:10)
[2021-08-03] MEDS: SACUBITRIL/VALSARTAN 49-51 MG TABLET 1 EACH PO (22:18)
[2021-08-03] MEDS: 0.9% Saline Lock 10 ML Syringe IV (22:28)
[2021-08-04 03:33] VITALS: BP 147/79; PULSE 110; RESP 17; TEMP 36.6; O2SAT 94
[2021-08-04 03:43] LABS: Absolute Neutrophil Count 7.5 X10^3/uL (2.0-7.7); Basophil# 0.05 X10^3/uL; Basophil% 0.5 % (0-1); Eosinophil# 0.18 X10^3/uL; Eosinophils% 1.8 % (0-5); Hematocrit 28.8 % (37-47); Hemoglobin 9.2 g/dL (12.0-15.0); Lymphocyte % 12.2 % (19-41); Mean Corp Hgb Conc 31.9 g/dL (32-36); Mean Corpuscular Hgb 30.3 pg (27.0-32.0); Mean Corpuscular Volume 94.7 fL (81-99); Mean Platelet Vol. 10.4 fl (6.2-12.0); Monocyte# 0.73 X10^3/uL; Monocyte% 7.4 % (0-10); NRBC Flagged by Analyzer 0 % (0-5); Neutrophil # 7.53 X10^3/uL (2.7-7.7); Neutrophil % 76.3 % (47-70); Platelet Count 151 K/mm3 (150-450); RBC Distribution Width CV 13.9 % (11.6-14.6); RBC Distribution Width SD 48.3 fl (35.1-43.9); Red Blood Count 3.04 M/mm3 (4.2-5.4); White Blood Count 9.9 K/mm3 (4.4-11.0)
[2021-08-04 04:03] LABS: ALB/GLOB Ratio 0.5 RATIO (0.9-2.4); AST(SGOT) 80 U/L (15-37); Alanine Aminotransfer ALT/SGPT 41 U/L (13-56); Albumin, Serum 2.1 g/dL (3.2-5.0); Alkaline Phosphatase 76 U/L (45-117); Anion Gap 9 (5-15); BUN 20 mg/dL (7-18); BUN/Creat Ratio 14.8 RATIO (10-20); Calcium,Total 8.7 mg/dL (8.5-10.1); Chloride 112 mmol/L (98-107); Creatinine, Serum 1.35 mg/dL (0.55-1.02); EST Glomerular Filtration Rate 42 mL/min (>60); Est Glom Filt Rate - Afr Amer 51 mL/min (>60); Estimated Creatinine Clearance 41.49 ml/min; Globulin 4.5 g/dL (2.2-4.2); Glucose 113 mg/dL (74-106); Potassium 3.8 mmol/L (3.5-5.1); Protein, Total 6.6 g/dL (6.4-8.2); Sodium Level 140 mmol/L (136-145)
[2021-08-04 04:17] LABS: Vancomycin, Trough Level 19.2 ug/mL (5.0-15.0)
--- NOTE | 2021-08-04 04:26 | PCM.RX.CS ---
Consult Pharmacy has been consulted to manage selected antiobiotic: Vancomycin Type of Consult: Follow-up Suspected Infection: Sepsis Prior Doses of Antibiotics Received/Current Regimen: Medications Vancomycin HCl 1,250 mg/ (Sodium Chloride) 275 mls @ 167 mls/hr IV Q12H [facility] Last Admin: 08/04/21 03:41 Dose: 167 mls/hr Labs: Sodium 140 mmol/L (136-145) 08/04/21 03:36 Potassium 3.8 mmol/L (3.5-5.1) 08/04/21 03:36 Chloride 112 mmol/L (98-107) H 08/04/21 03:36 Carbon Dioxide 19.0 mmol/L (21.0-32.0) L 08/04/21 03:36 Anion Gap 9 (5-15) 08/04/21 03:36 BUN 20 mg/dL (7-18) H 08/04/21 03:36 Creatinine 1.35 mg/dL (0.55-1.02) H 08/04/21 03:36 Est GFR (MDRD) Af Amer 51 mL/min (>60) L 08/04/21 03:36 Est GFR (MDRD) Non-Af 42 mL/min (>60) L 08/04/21 03:36 BUN/Creatinine Ratio 14.8 RATIO (10-20) 08/04/21 03:36 Glucose 113 mg/dL (74-106) H 08/04/21 03:36 Vancomycin Trough 19.2 ug/mL (5.0-15.0) H 08/04/21 03:36 Microbiology: Microbiology 08/02/21 07:05 Wound - Hand Gram Stain - Final 08/02/21 07:05 Wound - Hand Wound Culture - Preliminary Staphylococcus aureus 08/01/21 21:34 Urine, Clean Catch Urine Culture - Final Klebsiella oxytoca 08/01/21 21:34 Urine, Clean Catch Legionella Antigen - Final 08/01/21 21:34 Urine, Clean Catch Streptococcus pneumoniae Antigen (M - Final 08/01/21 21:08 Nasal Secretion SARS-CoV-2 Antigen (Rapid) - Final Weight used for dosin.4 kg Estimated Creatinine Clearance: 57.1 Goal Trough: 15-20 mcg/mL Pharmacy Plan for Drug Dosing: Vancomycin trough level was within the target range of 15-20. Considering the improvement in CrCl, the q12h dosing is appropriate. Will continue same dosing of 1250mg q12h, and re-draw a trough level 08/05/21. Pharmacy Service will continue to monitor and adjust dosing as required. Follow-Up Labs: Trough Vancomycin Labs to be done on [date and time ordered]: 08/05/21 @1500
[2021-08-04] MEDS: Dicyclomine 10 MG Capsule 20 MG PO ×2 (06:03→10:46)
[2021-08-04] MEDS: Heparin Injection (Vial) 5,000 UNIT/ML VIAL 5000 UNIT SC ×2 (06:03→14:07)
[2021-08-04] MEDS: Acyclovir 200 MG Capsule 400 MG PO ×2 (06:03→14:06)
[2021-08-04] MEDS: Levothyroxine 88 MCG Tablet PO (06:03)
--- NOTE | 2021-08-04 07:07 | PN.CC_ITS ---
Assessment & Plan Assessment/Plan (1) Septic shock: (2) Pneumonia of right upper lobe due to infectious organism: (3) UTI (urinary tract infection): QUALIFIERS: Urinary tract infection type: acute cystitis Hematuria presence: without hematuria Qualified Code(s): N30.00 - Acute cystitis without hematuria (4) Cardiomyopathy: (5) Chronic systolic (congestive) heart failure: PLAN: RECOMMENDATIONS: 1. Consider outpatient evaluation for obstructive sleep apnea 2. Defer antibiotics to infectious disease 3. Hemodynamically stable on room air. Will sign off from a critical care/pulmonary perspective IMPRESSIONS: 1. Septic shock Multiple possible etiologies including right upper lobe pneumonia, UTI and right hand. Clinical suspicion for hematologic spread leading to multiple areas of infection. Patient appears to be responding to the current antibiotic regimen. Infectious diseases following. Defer further recommendations to them. Patient currently hemodynamically stable on room air. Will sign off from a critical care perspective 2. Acute kidney injury on CKD stage III Resolved. Clinical suspicion secondary to problem #1. Patient does have previous labs here at 1.3, but she reports that her baseline is around 1.8-1.9. Patient did have significant improvement following improvement of hemodynamics. We will continue to monitor. There is no indication for renal replacement therapy at this time. 3. Right hand wound Patient reported that this was closed at 1 point. We will have the wound nurse evaluate. Anticipate patient could follow-up with orthopedic surgeon as an outpatient if hemodynamics can be controlled. We will hold on plastics consult for now. 4. Reported cardiomyopathy Patient reportedly had a transient cardiomyopathy with an EF as low as 15% in January. Repeat echocardiogram in April showed an EF of 60%. Unclear if this represents Takatsubo. Patient's oxygenation status appears to be doing well at this time. Could consider repeat echocardiogram if hypotension recurs. 5. Morbid obesity/chronic pain syndrome/hyperlipidemia/hypertension Complicates care, management, recovery and prognosis. Hold antihypertensive medications. Subjective Subjective Patient transferred out of the intensive care unit yesterday. Patient has done well on the floor on room air. Patient continues to report some discomfort of her hand, but overall feels improved compared to previous. Patient is denying any chest pain. Objective Data Objective Data Vital Signs: Vital Signs Temp Pulse Resp BP Pulse Ox 36.6 C 110 H 17 147/79 H 94 08/04/21 03:33 08/04/21 03:33 08/04/21 03:33 08/04/21 03:33 08/04/21 03:33 Oxygen Flow Rate (L/min) 2 Oxygen Delivery Method Room Air Weight: 115.4 kg Body Mass Index (BMI) 40.0 Intake & Output: Intake and Output for Last 24 Hours 08/02/21 08/03/21 08/04/21 23:59 23:59 23:59 Intake Total 1951.18 / 1954.98 1866.81 / 2166.81 925 / 925 Output Total 600 / 600 800 / 800 Balance 1351.18 / 1354.98 1066.81 / 1366.81 925 / 925 Lab / Micro Data Result Diagrams: 08/04/21 03:36 08/04/21 03:36 Labs: Laboratory Results - last 24 hr 08/04/21 03:36: Vancomycin Trough 19.2 H 08/04/21 03:36: WBC 9.9, RBC 3.04 L, Hgb 9.2 L, Hct 28.8 L, MCV 94.7, MCH 30.3, MCHC 31.9 L, RDW Std Deviation 48.3 H, RDW Coeff of Lencho 13.9, Plt Count 151, MPV 10.4, Immature Gran % (Auto) 1.800 H, Neut % (Auto) 76.3 H, Lymph % (Auto) 12.2 L, [place] % (Auto) 7.4, Eos % (Auto) 1.8, Baso % (Auto) 0.5, Absolute Neuts (auto) 7.5, Absolute Lymphs (auto) 1.20, Nucleated RBC % 0 08/04/21 03:36: Sodium 140, Potassium 3.8, Chloride 112 H, Carbon Dioxide 19.0 L , Anion Gap 9, BUN 20 H, Creatinine 1.35 H, Estim Creat Clear Calc 41.49, Est GFR (MDRD) Af Amer 51 L, Est GFR (MDRD) Non-Af 42 L, BUN/Creatinine Ratio 14.8, Glucose 113 H, Calcium 8.7, Total Bilirubin 0.30, AST 80 H, ALT 41, Alkaline Phosphatase 76, Total Protein 6.6, Albumin 2.1 L, Globulin 4.5 H, Albumi n/Globulin Ratio 0.5 L Micro: Microbiology 08/02/21 07:05 Wound - Hand Gram Stain - Final 08/02/21 07:05 Wound - Hand Wound Culture - Preliminary Staphylococcus aureus 08/01/21 21:34 Urine, Clean Catch Urine Culture - Final Klebsiella oxytoca 08/01/21 21:34 Urine, Clean Catch Legionella Antigen - Final 08/01/21 21:34 Urine, Clean Catch Streptococcus pneumoniae Antigen (M - Final 08/01/21 21:08 Nasal Secretion SARS-CoV-2 Antigen (Rapid) - Final Rhythm Strip Rhythm Strip: Sinus Rhythm Rate: 86 Ectopy: None Physical Exam Const oriented x3 and no apparent distress Constitutional Narrative: Resting comfortably on my arrival General Appearance: cooperative, well kempt and well developed Nutritional Appearance: morbidly obese HEENT normocephalic, head/scalp atraumatic and moist oral mucous membranes Eyes PERRL and EOMs intact bilaterally Neck full ROM General: lymphadenopathy Chest inspection of chest normal Chest: symmetrical chest wall rise; Negative for crepitus Resp normal respiratory effort and no use of accessory muscles Effort and Inspection: able to speak in complete sentences Auscultation: clear to auscultation bilaterally; Negative for rales, rhonchi or wheezes Percussion: Negative for dullness Cardio regular rate, regular rhythm, S1 normal heart sound, S2 normal heart sound, no murmurs, no rub and no gallops GI normal to inspection, nondistended, normoactive bowel sounds no CVA tenderness Extremity Extremity Narrative: Edema right upper extremity. Wound dressed. Did not examine. PICC noted Neuro oriented x3, CN's II-XII intact bilaterally, moves all extremities and no focal motor deficits Psych cooperative and affect normal Charges/Coding Visit Charges Inpatient E&M: 47735 Subs Hosp L2
[2021-08-04 07:44] VITALS: O2SAT 94
[2021-08-04] MEDS: Multivitamins,Therapeutic Tablet 1 TABLET PO (07:50)
[2021-08-04] MEDS: Aspirin E.C. 81 MG Tablet PO (07:50)
[2021-08-04] MEDS: tiZANidine HCl 2 MG Tablet 4 MG PO (07:59)
[2021-08-04] MEDS: LORazepam 0.5 MG Tablet PO (07:59)
[2021-08-04 08:00] VITALS: BP 143/101; PULSE 68; RESP 18; TEMP 36.8; O2SAT 98
--- NOTE | 2021-08-04 09:37 | CT_ITS ---
STUDY: CTA CHEST REASON FOR EXAM: Female, 60 years old. Septic shock. Right hand infection. Stage III renal disease. RADIATION DOSAGE (If Supplied By Facility): CTDIvol = ( 17.43 ) mGy, DLP = ( 1368.35 ) mGycm TECHNIQUE: The examination was performed with the intravenous administration of IV 100mL Isovue-370. Post-processing of the angiographic images was performed, with multiplanar reformation and 3D reconstruction. Individualized dose optimization techniques were used for this CT. COMPARISON: Comparison is made with prior chest radiograph dated 08/02/[address] scan of the thorax dated 02/04/2021. FINDINGS: Normal enhancement of the main pulmonary artery and right and left pulmonary arteries. Normal enhancement of the bilateral peripheral pulmonary arteries. There is no demonstrated pulmonary embolism. Normal thoracic aorta and visualized great vessels. There is no demonstrated aortic dissection. There are calcifications of the coronary arteries. Normal mediastinum. Normal hilar regions. Normal visualized trachea and bronchi. The lungs are well expanded. Dense consolidation of the right upper lobe. Tiny right pleural effusion. Normal chest wall structures. There are degenerative changes of thoracic spine. Normal visualized upper abdomen. CT/CTA Chest W/WO Contrast IMPRESSION: No evidence of pulmonary embolism. Dense opacification of the right upper lobe. Electronically Signed: John Arredondo MD at 10:53 EDT , Service support ,
--- NOTE | 2021-08-04 09:37 | CT_ITS ---
We are attempting to reach an attending provider to discuss findings. An addendum with communication details will be sent when the communication is complete. STUDY: RIGHT HAND CT SCAN WITH CONTRAST REASON FOR EXAM: Female, 60 years old. R hand infection RADIATION DOSAGE (If Supplied By Facility): CTDIvol = ( 17.43 ) mGy, DLP = ( 1368.35 ) mGycm. Individualized dose optimization techniques were used for this CT.? TECHNIQUE: Axial multidetector CT scan of the right hand. Coronal and sagittal reformatted images. Post contrast valuation with 100 mL ISOVUE-370. COMPARISON: None. FINDINGS: Soft tissue swelling at the right hand. Rim-enhancing fluid collection at the palmar aspect of the second digit measuring approximately 2.7 cm x 1.1 cm x 0.9 cm (axial image 13 and sagittal image 26). Soft tissue swelling at the region of the first and second digit flexor tendons. Normal appearance of the regions of the third, fourth and fifth flexor tendons given CT technique. Normal appearance of the extensor tendon compartments given CT technique. Distal radius intact. Distal ulna intact. Carpal bones intact. First through fifth metacarpals intact. First and fifth digits intact with joint space narrowing most severe at the fourth distal interphalangeal joint (coronal image 5 series 10). No acute fracture line. No acute dislocation. No acute cortical destruction. CT/Extremity Upper WITH Contrast IMPRESSION: No acute fracture or osteomyelitis Soft tissue swelling/cellulitis predominating at the second digit Second digit palmar surface rim enhancing fluid collection/abscess Suspected first and second digit flexor peritendinitis given CT technique Orthopedic consultation recommended Electronically Signed: Alfa Pritchard DO at 11:14 EDT Tel , Service support ,
[2021-08-04] MEDS: Pregabalin 50 MG Capsule 100 MG PO (10:45)
[2021-08-04] MEDS: oxyCODONE 5 MG Tablet 10 MG PO (10:45)
[2021-08-04] MEDS: Magnesium Chloride 64 MG Delay Rel.Tablet 128 MG PO (10:45)
[2021-08-04] MEDS: Venlafaxine HCl 75 MG Tablet PO (10:46)
[2021-08-04] MEDS: Calcium Carb/Vitamin D 1 TABLET Tablet PO (10:46)
[2021-08-04] MEDS: Pantoprazole Sodium 40 MG Tablet PO (10:46)
[2021-08-04] MEDS: Loratadine 10 MG Tablet PO (10:46)
[2021-08-04] MEDS: Ascorbic Acid 500 MG Tablet PO (10:46)
[2021-08-04] MEDS: Fluticasone 0.05% 1 SPRAY NASAL.SRY 2 SPRAY NASAL (10:47)
[2021-08-04] MEDS: LINAGLIPTIN 5 MG TABLET PO (10:47)
[2021-08-04] MEDS: DULoxetine Hcl 60 MG Capsule PO (10:48)
[2021-08-04] MEDS: SACUBITRIL/VALSARTAN 49-51 MG TABLET 1 EACH PO (10:49)
[2021-08-04] MEDS: Carvedilol 25 MG Tablet PO (11:50)
[2021-08-04] MEDS: 0.9% Saline Lock 10 ML Syringe IV (11:50)
--- NOTE | 2021-08-04 12:37 | CASEMGMT ---
According to [facility]'s website, the following tertiary facilities are in network: [facility], [place], [facility], [facility], [facility], [facility] and .
--- NOTE | 2021-08-04 14:13 | DS.PCM_ITS ---
Providers Date of Admission: 08/01/21 Primary Care Physician: Dr. Brandon Torres, Consultations 08/02/21 05:38 Consult: Transfer Driver / Pulmonary Medicine Routine Consulting Provider: Pulmonary Medicine kirsten [place] Reason for Consult: septic shock EMERGENT Consult: No Notified: Yes Date Notified: 08/02/21 Time Notified: 05:38 Method of Notification: Text 08/02/21 05:40 Consult: Transfer Driver / Pulmonary Medicine Routine Consulting Provider: Be Rodriguez Reason for Consult: Septic shock EMERGENT Consult: No Notified: Yes Date Notified: 08/01/21 Time Notified: 23:54 Method of Notification: Text 08/03/21 06:28 Consult: Infectious Disease Routine Consulting Provider: Ilia Andrade Reason for Consult: Concern for osteomyelitis EMERGENT Consult: No Notified: Yes Date Notified: 08/03/21 Time Notified: 08:07 Method of Notification: Text Reason For Visit: SEPTIC SHOCK Diagnosis Discharge Diagnosis (1) Septic shock: Status: Acute Code(s): A41.9 - Sepsis, unspecified organism; R65.21 - Severe sepsis with septic shock (2) Pneumonia of right upper lobe due to infectious organism: Status: Acute Code(s): J18.9 - Pneumonia, unspecified organism (3) UTI (urinary tract infection): Status: Acute Code(s): N39.0 - Urinary tract infection, site not specified Qualifiers: Urinary tract infection type: acute cystitis Hematuria presence: without hematuria Qualified Code(s): N30.00 - Acute cystitis without hematuria (4) Cardiomyopathy: Status: Acute Code(s): I42.9 - Cardiomyopathy, unspecified (5) Chronic systolic (congestive) heart failure: Status: Chronic Code(s): I50.22 - Chronic systolic (congestive) heart failure Medications at Discharge Home Medications levothyroxine 88 mcg PO DAILY 11/17/17 multivitamin 1 ea PO DAILY 12/29/17 pantoprazole 40 mg PO BID 03/29/19 amitriptyline 25 mg PO QHS 08/10/19 alendronate 70 mg PO Q7D@0700 #4 tab 08/25/19 rosuvastatin 20 mg tablet 20 mg PO QHS 08/25/19 sitagliptin 50 mg tablet 50 mg PO DAILY 09/04/19 hydrocodone-acetaminophen 7.5 tab PO BID 09/10/20 dicyclomine 20 mg PO TIDAC 10/19/20 duloxetine 60 mg PO BID 10/19/20 valacyclovir 500 mg PO DAILY 10/19/20 aspirin 81 mg PO DAILY@0800 #30 tab 01/17/21 fluticasone propionate 50 mcg/actuation nasal spray,suspension 2 spray INTRANASAL DAILY 01/26/21 tizanidine 4 mg tablet 4 mg PO Q8H PRN 01/26/21 ascorbate calcium (vitamin C) 500 mg tablet 500 mg PO DAILY 01/27/21 calcium carbonate 600 mg (1,500 mg)-vitamin D3 500 unit capsule 1 cap PO DAILY 01/27/21 cetirizine 10 mg capsule 10 mg PO DAILY 01/27/21 magnesium oxide 400 mg PO DAILY 01/27/21 venlafaxine 75 mg PO BID 02/04/21 carvedilol 25 mg tablet 25 mg PO Q12H PRN 02/18/21 Lactobacillus rhamnosus GG 10 billion cell capsule 1 cap PO DAILY 05/18/21 furosemide 40 mg tablet 40 mg PO DAILY PRN tablet 05/18/21 lorazepam 0.5 mg tablet 0.5 mg PO BID PRN 05/18/21 pregabalin 100 mg capsule 100 mg PO DAILY 05/18/21 sacubitril 49 mg-valsartan 51 mg tablet 1 tab PO BID 05/25/21 Clindamycin 100 mg PO/SL TID 08/01/21 Hospital Course Summary of Care Provided Minutes Spent on Discharge: 45 Hospital Course: Ms. Michaud is a 60-year-old white female presented to the [facility] on 08/01/2021 with a chief complaint of weakness that has been persistent since the morning of admission. She reported she came in because she fell and she fell because of her weakness. She reported that 3 days prior she developed a sore throat as well as anorexia and fever. Her temperature at home had been as high as 104.1 and she had some shortness of breath with cough but no sputum production. She is had some issues with recurrent postoperative wound of her right hand for which she had been completed on antibiotics for MRSA and was restarted on oral antibiotics of clindamycin 2 days before presentation. She states the wound had been closed up until Sunday but then reopened and was draining purulent fluid. Upon presentation she was tachycardic and hypotensive and had acute kidney injury with a serum creatinine of 3.74 with a baseline creatinine of 1.3. Her UA was consistent with urinary tract infection, her chest x-ray showed a right upper lobe lobe opacity and she was stable on room air. She was given vancomycin and cefepime and continued on empiric antibiotics and received normal saline fluid boluses at 30 mL/kg for septic shock protocol unfortunately her blood pressure did not improve and she required vasopressors for approximately 36 hours during her admission. She was unfortunately unable to produce a sputum but complained of right pleuritic chest pain and a CTA was performed. This showed no PE but a dense right upper lobe consolidation consistent with a pneumonia. She was maintained on empiric coverage for this. Her UA as noted above was considered with UTI and her urine culture grew out sensitive Klebsiella for which antibiotics were changed to ceftriaxone and she was maintained on vancomycin as her hand wound culture grew out MRSA. Renal ultrasound showed no evidence of pyelonephritis. Given increased pain in her right hand on 08/04/2021 and continued draining a CT of her hand was performed and this showed soft tissue swelling of the right hand with a rim-enhancing fluid collection on the palmar aspect of the second digit measuring 2.7 x 1.1 x 0.9 cm with soft tissue swelling at the region of the first and second flexor tendons and no sign of bone involvement. Given that this needed at least aspiration and possible surgical I&D she was transferred to [facility], as this is where her primary orthopedic surgeon is located, for further care. She was accepted by Dr. Bowens on 08/04/2021 for marky gamboa. Her primary surgeon is Dr. Derick Viramontes. 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 Head: Normocephalic, atraumatic, no tenderness Eyes: PERRLA, EOMI ENT, no trauma, moist mucous membranes, no rhinorrhea Neck: Nontender, full range of motion, no spinal tenderness, deformities, step- off CVS: Regular rate and rhythm. S1-S2 present. No murmur, gallop or rub. Respiratory : clear to auscultation bilaterally, chest wall nontender, no wheezing Abdomen: Soft, nontender, nondistended, normal bowel sounds, no masses : Deferred Back: Nontender, no CVA tenderness, no midline spinal tenderness, deformities, step-offs Extremities: Full range of motion. No cachexia. Skin: Ulcer; tenderness and swelling of palms of right hand. Neuro: Alert, oriented, cranial nerves II through XII grossly intact. Psychiatry: Normal mood. Normal affect. Not depressed. Not anxious. Const alert, oriented x3, no apparent distress and well nourished Constitutional Narrative: Morbidly obese white female sitting up in bed, watching television and talking on the phone, appears comfortable, nontoxic General Appearance: cooperative, comfortable, well kempt and well developed Orientation / Consciousness: awake Exam Limitations: no limitations Nutritional Appearance: morbidly obese HEENT head/scalp atraumatic and moist oral mucous membranes Eyes PERRL, EOMs intact bilaterally and conjunctivae normal Neck no lymphadenopathy, supple and no JVD Neck Narrative: Short thick neck, trachea midline, no thyroid enlargement noted Resp normal respiratory effort, no retractions, no use of accessory muscles and clear to auscultation bilaterally Auscultation: Negative for crackles, rales, rhonchi or wheezes Cardio regular rate, regular rhythm, S1 normal heart sound, S2 normal heart sound, no murmurs, no rub, no gallops, no clicks and no JVD GI normal to inspection, nondistended, normoactive bowel sounds, soft to palpation, non-tender and non-distended Extremity no clubbing, cyanosis or edema Extremity Narrative: Right hand on the palmar surface has an open area near the first metacarpal that is draining what appears to be purulent fluid at this time the surrounding area is not erythematous hand is more tender today Skin no rashes or lesions noted, skin turgor normal, no jaundice, no petechiae and no mottling Skin Narrative: Right palmar wound as noted above Neuro oriented x3, moves all extremities and no focal motor deficits Sensorium / Orientation: awake and alert Speech: speech normal Psych affect normal Weight / BMI Weight Weight: 115.4 kg Body Mass Index (BMI) 40.0 ABG / Lab / Microbiology Data Result Diagrams: 08/04/21 03:36 08/04/21 03:36 Laboratory: Laboratory Results - last 24 hr 08/04/21 03:36: Vancomycin Trough 19.2 H 08/04/21 03:36: WBC 9.9, RBC 3.04 L, Hgb 9.2 L, Hct 28.8 L, MCV 94.7, MCH 30.3, MCHC 31.9 L, RDW Std Deviation 48.3 H, RDW Coeff of Lencho 13.9, Plt Count 151, MPV 10.4, Immature Gran % (Auto) 1.800 H, Neut % (Auto) 76.3 H, Lymph % (Auto) 12.2 L, [place] % (Auto) 7.4, Eos % (Auto) 1.8, Baso % (Auto) 0.5, Absolute Neuts (auto) 7.5, Absolute Lymphs (auto) 1.20, Nucleated RBC % 0 08/04/21 03:36: Sodium 140, Potassium 3.8, Chloride 112 H, Carbon Dioxide 19.0 L , Anion Gap 9, BUN 20 H, Creatinine 1.35 H, Estim Creat Clear Calc 41.49, Est GFR (MDRD) Af Amer 51 L, Est GFR (MDRD) Non-Af 42 L, BUN/Creatinine Ratio 14.8, Glucose 113 H, Calcium 8.7, Total Bilirubin 0.30, AST 80 H, ALT 41, Alkaline Phosphatase 76, Total Protein 6.6, Albumin 2.1 L, Globulin 4.5 H, Albumin/Globulin Ratio 0.5 L Microbiology: Microbiology 08/01/21 20:52 Blood Culture (Wb) - Anticubital Left Blood Culture - Preliminary No growth in 48 hours. 08/01/21 21:42 Blood Culture (Wb) - Left Forearm Blood Culture - Preliminary No growth in 48 hours. 08/02/21 07:05 Wound - Hand Gram Stain - Final 08/02/21 07:05 Wound - Hand Wound Culture - Final Meth. resistant Staph. aureus 08/01/21 21:34 Urine, Clean Catch Urine Culture - Final Klebsiella oxytoca 08/01/21 21:34 Urine, Clean Catch Legionella Antigen - Final 08/01/21 21:34 Urine, Clean Catch Streptococcus pneumoniae Antigen (M - Final 08/01/21 21:08 Nasal Secretion SARS-CoV-2 Antigen (Rapid) - Final Radiography Diagnostic Testing: Radiology Impression Chest CTA 08/04/21 09:37 IMPRESSION: No evidence of pulmonary embolism. Dense opacification of the right upper lobe. Electronically Signed: John Arredondo MD at 10:53 EDT , Service support , Upper Extremity CT 08/04/21 09:37 IMPRESSION: No acute fracture or osteomyelitis Soft tissue swelling/cellulitis predominating at the second digit Second digit palmar surface rim enhancing fluid collection/abscess Suspected first and second digit flexor peritendinitis given CT technique Orthopedic consultation recommended Electronically Signed: Alfa Pritchard DO at 11:14 EDT Tel , Service support , Meaningful Use Info Meaningful Use Diagnoses (Choose all that apply): None applicable Discharge Plan Admission Admit Date/Time: 08/01/21 23:47 Primary Reason for Your Visit: Septic shock Attending Provider: Ariella Call Primary Care Provider: Brandon Torres Consulting Providers: Be Rodriguez ; Ilia Andrade ; Wagner Woods ; Arminda Pringle TRAFFIC WAREHOUSE SUPERVISOR Discharge Orders/Prescriptions Prescriptions: No Action Januvia 50 mg tablet 50 mg PO DAILY RF: 0 rosuvastatin [Crestor] 20 mg tablet 20 mg PO QHS RF: 0 calcium carbonate-vitamin D3 [Calcium 600 with Vitamin D3] 600 mg(1,500mg) - 500 unit capsule 1 cap PO DAILY RF: 0 Zyrtec 10 mg capsule 10 mg PO DAILY RF: 0 magnesium oxide 400 mg magnesium capsule 400 mg PO DAILY RF: 0 ascorbate calcium (vitamin C) 500 mg tablet 500 mg PO DAILY RF: 0 tizanidine 4 mg tablet 4 mg PO Q8H PRN (Reason: Muscle Spasm) RF: 0 fluticasone propionate [Allergy Relief (fluticasone)] 50 mcg/actuation spray,suspension 2 spray INTRANASAL DAILY RF: 0 Culturelle 10 billion cell capsule 1 cap PO DAILY RF: 0 furosemide 40 mg tablet 40 mg PO DAILY PRN (Reason: diuretic) RF: 0 lorazepam [Ativan] 0.5 mg tablet 0.5 mg PO BID PRN (Reason: Anxiety) RF: 0 pregabalin 100 mg capsule 100 mg PO DAILY RF: 0 levothyroxine 88 MCG tablet 88 mcg PO DAILY RF: 0 multivitamin 1 EACH tablet 1 ea PO DAILY RF: 0 pantoprazole 40 MG tablet 40 mg PO BID RF: 0 amitriptyline 25 MG tablet 25 mg PO QHS RF: 0 alendronate 70 MG tablet 70 mg PO Q7D@0700 Qty: 4 RF: 0 hydrocodone-acetaminophen 1 TABLET tablet 7.5 tab PO BID RF: 0 duloxetine 60 MG capsule 60 mg PO BID RF: 0 valacyclovir 500 MG tablet 500 mg PO DAILY RF: 0 dicyclomine 10 MG capsule 20 mg PO TIDAC RF: 0 aspirin 81 MG tablet 81 mg PO DAILY@0800 Qty: 30 RF: 0 venlafaxine 75 MG tablet 75 mg PO BID RF: 0 Clindamycin 100 mg PO/SL TID RF: 0 carvedilol 25 mg tablet 25 mg PO Q12H PRN (Reason: Blood Pressure) RF: 0 Entresto 49-51 mg tablet 1 tab PO BID RF: 0 Referrals / Follow Up: Brandon Torres DO [Primary Care Provider] - Disposition Disposition (needs filled in before D/C Order can be placed): Acute Care Hospital Charges/Coding Visit Charges Inpatient E&M: 05483 Disch Hosp
--- NOTE | 2021-08-04 14:19 | CASEMGMT ---
Addendum entered by Bella Bundy 08/04/21 14:58: [facility] faxed discharge paperwork to [facility]. Original Note: Social Work Note Pt is being transferred out to [facility]. [facility] placed a call to pt's CM at [facility] and left message that pt is being transferred. Bella Bundy LINE DIRECTOR, SUPERVISOR
[2021-08-04 14:51] VITALS: BP 116/100; PULSE 74; RESP 18; TEMP 36.9; O2SAT 98
== END 2021-08-04 16:25 | disposition short-term general hospital (02) | DRG 862 ==
LOC: ED 22:27 → ICU 08-02 01:19 → MS3 08-03 19:07
PROVIDERS: Nurse Practitioner Family; Admitting Provider Hospitalist; Emergency Provider Emergency Medicine; PCP Student in an Organized Health Care Education/Training Program; Visit Provider Internal Medicine
DX: T81.41XA Infection following a procedure, superficial incisional surgical site, initial encounter (principal); A41.9 Sepsis, unspecified organism; J18.9 Pneumonia, unspecified organism; R65.21 Severe sepsis with septic shock; I13.0 Hypertensive heart and chronic kidney disease with heart failure and stage 1 through stage 4 chronic kidney disease, or unspecified chronic kidney disease; I42.8 Other cardiomyopathies; I50.22 Chronic systolic (congestive) heart failure; N17.9 Acute kidney failure, unspecified; N30.00 Acute cystitis without hematuria; Z68.41 Body mass index [BMI] 40.0-44.9, adult; G81.91 Hemiplegia, unspecified affecting right dominant side; B96.1 Klebsiella pneumoniae [K. pneumoniae] as the cause of diseases classified elsewhere; B95.62 Methicillin resistant Staphylococcus aureus infection as the cause of diseases classified elsewhere; E03.9 Hypothyroidism, unspecified; E11.22 Type 2 diabetes mellitus with diabetic chronic kidney disease; E11.51 Type 2 diabetes mellitus with diabetic peripheral angiopathy without gangrene; E66.01 Morbid (severe) obesity due to excess calories; E78.5 Hyperlipidemia, unspecified; G56.00 Carpal tunnel syndrome, unspecified upper limb; F32.9 Major depressive disorder, single episode, unspecified; E11.42 Type 2 diabetes mellitus with diabetic polyneuropathy; G89.4 Chronic pain syndrome; I25.2 Old myocardial infarction; W19.XXXA Unspecified fall, initial encounter; Y93.9 Activity, unspecified; Y92.9 Unspecified place or not applicable; I25.10 Atherosclerotic heart disease of native coronary artery without angina pectoris; N18.2 Chronic kidney disease, stage 2 (mild); I48.91 Unspecified atrial fibrillation; I95.9 Hypotension, unspecified; I65.29 Occlusion and stenosis of unspecified carotid artery; K21.9 Gastro-esophageal reflux disease without esophagitis; J45.909 Unspecified asthma, uncomplicated; M19.90 Unspecified osteoarthritis, unspecified site; M81.0 Age-related osteoporosis without current pathological fracture; Z87.19 Personal history of other diseases of the digestive system; Z86.73 Personal history of transient ischemic attack (TIA), and cerebral infarction without residual deficits; Z86.19 Personal history of other infectious and parasitic diseases; Z79.82 Long term (current) use of aspirin; Z79.899 Other long term (current) drug therapy; Z87.891 Personal history of nicotine dependence
CPT/HCPCS: 36415; 36569; 71045; 71275; 73201; 76770; 80048; 80053; 80202; 81001; 83605; 85025; 85610; 85730; 87040; 87070; 87077; 87086; 87088; 87186; 87205; 87426; 87449; 93005; 94762; 97110; 97116; 97162; 97166; 97535; 97802; 99251; 99285; J7030; J7040; J7050; P9612; Q9967; A4216; C1751; G0463; J0696

== ENCOUNTER 2022-01-16 15:43 | Outpatient (CLI) | payer MEDICARE, MEDICAID, SELFPAY | END 2022-01-16 23:59 | disposition home or self-care (01) | LOC: LABSPEC 15:45 | PROVIDERS: PCP Student in an Organized Health Care Education/Training Program; Visit Provider Otolaryngology | DX: J32.9 Chronic sinusitis, unspecified (principal) | CPT/HCPCS: 87070; 87205 ==

== ENCOUNTER 2022-02-11 16:43 | Emergency (ER) | payer MEDICARE, MEDICAID, SELFPAY ==
[2022-02-11 16:55] VITALS: BP 121/62; PULSE 92; RESP 18; TEMP 36.6; O2SAT 97; BMI 40.2
[2022-02-11] MEDS: morphine 10 MG/ML Syringe 4 MG SC (17:13)
--- NOTE | 2022-02-11 17:34 | RAD_ITS ---
STUDY: X-RAY - RIGHT ANKLE REASON FOR EXAM: Female, 61 years old. Right ankle injury. TECHNIQUE: 3 view(s) of the ankle. COMPARISON: None. FINDINGS: Fusion hardware of the distal tibia syndesmosis screws of the distal tibial-fibular articulation stable. Lucency surrounding the heads of the syndesmosis screws suggests possibility of loosening. Nondisplaced fracture (oblique) of the distal fibula with mild medial apical angulation is seen just below the most inferior syndesmosis screw. Widening of the tibiotalar joint medially. Calcaneal spur. The visualized subtalar, talonavicular, calcaneocuboid and tarsal articulations are normal. Lateral ankle soft tissue swelling is new. RAD/Ankle min 3 Views IMPRESSION: 1. Lateral malleolus fracture. Lateral ankle soft tissue swelling. 2. Distal tibial/fibular fusion hardware. Lucency around syndesmosis screws could represent loosening. Electronically Signed: Toni Engel MD ([place]) at 17:52 EDT Reading Location ID and State: [facility] / [place] , Service support ,
--- NOTE | 2022-02-11 18:11 | EDS_ITS ---
HPI History of Present Illness Chief Complaint: Lower Extremity Injury Detail of Chief Complaint: Right ankle pain Informant: patient Onset/Context/Timing Onset: Today Context: Sudden Onset Timing: Continuous Location: Right lateral ankle Current Severity: Severe Worsened by: Movement Associated Symptoms Associated Symptoms: Swelling Narrative Narrative: Patient had a mechanical fall. She rolled her right ankle complains of severe pain to the lateral right ankle. History of a fracture there with hardware in place. She follows with Dr. Viramontes at the [facility]. Associated with swelling but denies any other new symptoms. Prior similar symptoms: Yes Recent Illness/Hospitalization: No PFSH [facility] Medical History ACTH deficiency Acute respiratory failure with hypoxia Allergic rhinitis Anemia Asthma Asthma exacerbation Atherosclerosis of coronary artery without angina pectoris Bilateral leg weakness Bone fracture Cardiomyopathy Carotid artery stenosis Carpal tunnel syndrome Chronic constipation with suspected IBS Chronic headaches Chronic systolic (congestive) heart failure CKD (chronic kidney disease) stage 3, GFR 30-59 ml/min Debility Essential hypertension Falls Flash pulmonary edema (01/16/21) Gait difficulty Gallstones GERD (gastroesophageal reflux disease) GI problem Herpes simplex History of Clostridium difficile infection History of CVA (cerebrovascular accident) (2018) History of depression History of emotional problems History of ischemic colitis Hx of diverticulitis of colon Hyperlipidemia Hypotension Hypothyroidism Irritable bowel syndrome Kidney disease Neuropathy Non-ischemic cardiomyopathy Normochromic normocytic anemia Obesity Osteoarthritis Osteopenia Osteoporosis Peripheral vascular disease Pulmonary edema Right hemiparesis Seasonal allergies Secondary adrenal insufficiency Stomach ulcer Trigeminal trophic syndrome Type 2 diabetes mellitus Home Medications levothyroxine 88 mcg PO DAILY 11/17/17 [History Last Taken 08/09/19] multivitamin 1 ea PO DAILY 12/29/17 [History Last Taken 08/09/19] pantoprazole 40 mg PO BID 03/29/19 [History Last Taken 08/09/19] amitriptyline 25 mg PO QHS 08/10/19 [History Last Taken Unknown] alendronate 70 mg PO Q7D@0700 #4 tab 08/25/19 [Rx Last Taken 10/12/20 07:00] rosuvastatin 20 mg tablet 20 mg PO QHS 08/25/19 [History Last Taken Unknown] sitagliptin 50 mg tablet 50 mg PO DAILY 09/04/19 [History Last Taken Unknown] hydrocodone-acetaminophen 7.5 tab PO BID PRN 09/10/20 [History Last Taken Unknown] dicyclomine 20 mg PO TIDAC 10/19/20 [History Last Taken Unknown] duloxetine 60 mg PO BID 10/19/20 [History Last Taken Unknown] valacyclovir 500 mg PO DAILY 10/19/20 [History Last Taken Unknown] aspirin 81 mg PO DAILY@0800 #30 tab 01/17/21 [Rx Last Taken Unknown] tizanidine 4 mg tablet 4 mg PO Q8H PRN 01/26/21 [History Last Taken Unknown] ascorbate calcium (vitamin C) 500 mg tablet 500 mg PO DAILY 01/27/21 [History Last Taken Unknown] calcium carbonate 600 mg-vitamin D3 12.5 mcg (500 unit) capsule 1 cap PO DAILY 01/27/21 [History Last Taken Unknown] cetirizine 10 mg capsule 10 mg PO DAILY 01/27/21 [History Last Taken Unknown] magnesium oxide 400 mg PO DAILY 01/27/21 [History Last Taken Unknown] venlafaxine 150 mg PO QHS 02/04/21 [History Last Taken Unknown] Lactobacillus rhamnosus GG 10 billion cell capsule 1 cap PO DAILY 05/18/21 [History Last Taken Unknown] furosemide 40 mg tablet 20 - 40 mg PO DAILY PRN tablet 05/18/21 [History Last Taken Unknown] pregabalin 100 mg capsule 100 mg PO DAILY 05/18/21 [History Last Taken Unknown] carvedilol 25 mg tablet 25 mg PO BID 08/23/21 [History Last Taken Unknown] zinc 50 mg PO DAILY 01/20/22 [History Last Taken Unknown] fluticasone propion-salmeterol [Advair Diskus] 1 inh INHALATION BID 02/11/22 [History Last Taken Unknown] sacubitril-valsartan [Entresto] 1 tab PO BID 02/11/22 [History Last Taken Unknown] venlafaxine 75 mg PO DAILY 02/11/22 [History Last Taken Unknown] Allergy/AdvReac Type Severity Reaction Status Date / Time adhesive Allergy skin Verified 02/11/22 16:45 irritation amlodipine [From Norvasc] Allergy tachycardia Verified 02/11/22 16:45 hydromorphone HCl Allergy Itching Verified 02/11/22 16:45 [From Dilaudid] sulfamethoxazole Allergy made my Verified 02/11/22 16:45 [From Bactrim] cold sore huge trimethoprim [From Bactrim] Allergy made my Verified 02/11/22 16:45 cold sore huge Family History Grandfather Alcoholism Grandmother Myocardial infarction Mother Arthritis Diverticulitis COPD (chronic obstructive pulmonary disease) Afib Thyroid disorder Father Arthritis Diabetes Myocardial infarction Heart disease Ischemic Hypertension Hyperlipidemia Brother Arthritis Aunt Breast cancer Sister Arthritis Thyroid disorder Skin cancer Uncle Diabetes Surgical History Ankle fracture Fracture of left femur History of angioplasty of peripheral vessel (2010) History of arthroscopic knee surgery History of back surgery History of bilateral knee replacement History of carpal tunnel release History of cholecystectomy History of intestine removal History of left heart catheterization (2011) History of tonsillectomy and adenoidectomy History of trigger finger History of ventral hernia repair Strangulated ventral hernia Social History Smoking Status: Former smoker how long ago did patient quit smokin alcohol intake: never substance use type: does not use what type of physical activity do you participate in: other ROS ROS ED Constitutional Constitutional ED: Denies fever(s) Eyes Eyes: Denies change in vision ENT ENT ED: Denies ear pain Cardiovascular Cardiovascular: Denies chest pain Respiratory/Chest Respiratory/Chest: Denies dyspnea Gastrointestinal Gastrointestinal: Denies abdominal pain Genitourinary Genitourinary ED: Denies dysuria Musculoskeletal Musculoskeletal: Reports arthralgias; Denies myalgias Integumentary Denies rash Neurologic Neurologic: Denies headache(s) Psychiatric Psychiatric: Denies depression Endocrine Endocrinology: Denies polyuria Allergic/Immunologic Allergic/Immunologic ED: Denies urticaria EXAM Physical Exam Const Vital Signs: 02/11/22 16:55 Temperature 97.8 F Temperature Source Temporal Pulse Rate 92 Respiratory Rate 18 Blood Pressure 121/62 H Blood Pressure Mean 81 Pulse Ox 97 Oxygen Delivery Method Room Air Positive well nourished and well developed General Appearance ED: well developed HEENT Negative for trauma Eyes EOMs intact bilaterally Neck supple Cardio regular rate Extremity Extremity Narrative: Tenderness and swelling to the right lateral ankle General Extremety ED: Yes edema and tenderness General Extremity: edema Neuro oriented x3 and no sensory deficits noted Sensorium / Orientation: alert Motor Exam: strength 5/5 throughout Psych mental status grossly normal MDM MDM MDM Narrative Medical decision making narrative: Patient had a mechanical fall injured her right ankle. No other trauma or complaints. She has a lateral malleolus fracture with minimal displacement. There is some soft tissue swelling. There is some lucency around her screws which could represent loosening. Patient said she had this previously. X-rays were reviewed by the radiologist and myself. I agree with the above interpretation. Patient was treated with pain medicine here. She is on controlled substances for pain and will continue those at home. She was placed in a Ortho-Glass splint that was fabricated by me. This was a sugar tong splint and a posterior leg splint. She tolerated this well. Copious padding was applied. She is neurovascular intact distally afterwards. She does not have any pain from the splint. She was given splint precautions and will follow up with her orthopedist. She has a walker, crutches, and a wheelchair at home and will use these to be nonweightbearing. Return for any new or worsening issues. Impression #1 right lateral malleolus fracture Impression #2 status post ORIF prior right ankle fracture Disposition is discharged home in stable condition. Radiography Diagnostic Testing: Clinical Impression(s) from Imaging Studies Ankle X-Ray 02/11/22 17:34 IMPRESSION: 1. Lateral malleolus fracture. Lateral ankle soft tissue swelling. 2. Distal tibial/fibular fusion hardware. Lucency around syndesmosis screws could represent loosening. Electronically Signed: Toni Engel MD (Brooks) at 17:52 EDT Reading Location ID and State: [facility] / [place] , Service support , Discharge Plan Triage Chief Complaint: Lower Extremity Injury ED Provider: Keith Diallo Dx/Rx/DC Orders Instructions: ED Ankle Fracture, Distal Fibula Prescriptions: No Action Januvia 50 mg tablet 50 mg PO DAILY RF: 0 rosuvastatin [Crestor] 20 mg tablet 20 mg PO QHS RF: 0 calcium carbonate-vitamin D3 [Calcium 600 with Vitamin D3] 600 mg(1,500mg) - 500 unit capsule 1 cap PO DAILY RF: 0 Zyrtec 10 mg capsule 10 mg PO DAILY RF: 0 magnesium oxide 400 mg magnesium capsule 400 mg PO DAILY RF: 0 ascorbate calcium (vitamin C) 500 mg tablet 500 mg PO DAILY RF: 0 tizanidine 4 mg tablet 4 mg PO Q8H PRN (Reason: Muscle Spasm) RF: 0 Culturelle 10 billion cell capsule 1 cap PO DAILY RF: 0 furosemide 40 mg tablet 20 - 40 mg PO DAILY PRN (Reason: diuretic) RF: 0 pregabalin 100 mg capsule 100 mg PO DAILY RF: 0 levothyroxine 88 MCG tablet 88 mcg PO DAILY RF: 0 multivitamin 1 EACH tablet 1 ea PO DAILY RF: 0 pantoprazole 40 MG tablet 40 mg PO BID RF: 0 amitriptyline 25 MG tablet 25 mg PO QHS RF: 0 alendronate 70 MG tablet 70 mg PO Q7D@0700 Qty: 4 RF: 0 hydrocodone-acetaminophen 1 TABLET tablet 7.5 tab PO BID PRN (Reason: Pain) RF: 0 duloxetine 60 MG capsule 60 mg PO BID RF: 0 valacyclovir 500 MG tablet 500 mg PO DAILY RF: 0 dicyclomine 10 MG capsule 20 mg PO TIDAC RF: 0 aspirin 81 MG tablet 81 mg PO DAILY@0800 Qty: 30 RF: 0 venlafaxine 75 MG tablet 150 mg PO QHS RF: 0 zinc 50 mg Capsule 50 mg PO DAILY RF: 0 venlafaxine 75 mg Tablet 75 mg PO DAILY RF: 0 fluticasone propion-salmeterol [Advair Diskus] 100-50 mcg/dose Blister With Device 1 inh INHALATION BID RF: 0 Entresto 49-51 mg Tablet 1 tab PO BID RF: 0 carvedilol [Coreg] 25 mg tablet 25 mg PO BID RF: 0 Primary Care Provider: Brandon Torres Referrals: Derikc Viramontes MD [NON-STAFF] - Disposition Disposition: Home, Self Care
[2022-02-11 18:25] VITALS: BP 106/64; PULSE 83; RESP 16; O2SAT 98
== END 2022-02-11 18:26 | disposition home or self-care (01) ==
PROVIDERS: Emergency Provider Emergency Medicine; PCP Student in an Organized Health Care Education/Training Program; Visit Provider Emergency Medicine
DX: S82.61XA Displaced fracture of lateral malleolus of right fibula, initial encounter for closed fracture (principal); E11.51 Type 2 diabetes mellitus with diabetic peripheral angiopathy without gangrene; I13.0 Hypertensive heart and chronic kidney disease with heart failure and stage 1 through stage 4 chronic kidney disease, or unspecified chronic kidney disease; I50.22 Chronic systolic (congestive) heart failure; I42.8 Other cardiomyopathies; E11.22 Type 2 diabetes mellitus with diabetic chronic kidney disease; E11.40 Type 2 diabetes mellitus with diabetic neuropathy, unspecified; Z68.41 Body mass index [BMI] 40.0-44.9, adult; N18.30 Chronic kidney disease, stage 3 unspecified; E78.5 Hyperlipidemia, unspecified; I25.10 Atherosclerotic heart disease of native coronary artery without angina pectoris; Z87.891 Personal history of nicotine dependence; W19.XXXA Unspecified fall, initial encounter; Y93.9 Activity, unspecified; Y92.9 Unspecified place or not applicable; J45.909 Unspecified asthma, uncomplicated; Z87.19 Personal history of other diseases of the digestive system; Z86.73 Personal history of transient ischemic attack (TIA), and cerebral infarction without residual deficits; K21.9 Gastro-esophageal reflux disease without esophagitis; E03.9 Hypothyroidism, unspecified; K58.9 Irritable bowel syndrome, unspecified; Z91.81 History of falling; M81.0 Age-related osteoporosis without current pathological fracture; E66.9 Obesity, unspecified; Z79.82 Long term (current) use of aspirin; Z79.899 Other long term (current) drug therapy
CPT/HCPCS: 29515; 73610; 96372; 99282

== ENCOUNTER 2022-02-13 13:26 | Observation (INO) | payer MEDICARE, MEDICAID, SELFPAY ==
[2022-02-13 13:27] VITALS: BP 132/102; PULSE 93; RESP 16; TEMP 36.4; O2SAT 95; BMI 51.5
--- NOTE | 2022-02-13 14:05 | RAD_ITS ---
INDICATION: Cough EXAMINATION/TECHNIQUE: X-RAY - XR Chest 1 View COMPARISON: 08/02/2021. FINDINGS: LINES/DEVICES: None. LUNGS: Hazy airspace opacity left lower lung field, no consolidations or pleural effusions. MEDIASTINUM AND CARDIOVASCULAR STRUCTURES: Cardiac silhouette not enlarged. Central airways and mediastinal contour are unremarkable for the degree of rotation. BONES AND SOFT TISSUES: Unremarkable. RAD/Chest 1 View (Portable) IMPRESSION: No radiographic evidence of acute cardiopulmonary disease. Electronically Signed: Jake Alvarado MD at 15:36 EDT ,
[2022-02-13 14:08] VITALS: BP 100/61
--- NOTE | 2022-02-13 14:37 | EX.ED.DYSGE1 ---
HPI History of Present Illness Chief Complaint: Alt LOC Informant: patient and family Onset/Context/Timing Onset: Yesterday Context: Gradual Onset Timing: Continuous Quality: Confusion Location: Generalized Worsened by: Nothing Relieved by: Nothing Narrative Narrative: Presents with confusion that became worse today. Family reports patient was doing well last night at 9 PM. She noted the patient with more confused today. Patient recently had a fracture of her right ankle and was prescribed pain medications. Family is concerned the patient may have been taking too many of her pain medications. Patient denies any fevers or chills. Patient denies any chest pain or shortness of breath. Patient does admit to a cough with some yellow-brown sputum. Patient also admits to a mild headache. [facility] Medical History ACTH deficiency Acute respiratory failure with hypoxia Allergic rhinitis Anemia Asthma Asthma exacerbation Atherosclerosis of coronary artery without angina pectoris Bilateral leg weakness Bone fracture Cardiomyopathy Carotid artery stenosis Carpal tunnel syndrome Chronic constipation with suspected IBS Chronic headaches Chronic systolic (congestive) heart failure CKD (chronic kidney disease) stage 3, GFR 30-59 ml/min Debility Essential hypertension Falls Flash pulmonary edema (01/16/21) Gait difficulty Gallstones GERD (gastroesophageal reflux disease) GI problem Herpes simplex History of Clostridium difficile infection History of CVA (cerebrovascular accident) (2018) History of depression History of emotional problems History of ischemic colitis Hx of diverticulitis of colon Hyperlipidemia Hypotension Hypothyroidism Irritable bowel syndrome Kidney disease Neuropathy Non-ischemic cardiomyopathy Normochromic normocytic anemia Obesity Osteoarthritis Osteopenia Osteoporosis Peripheral vascular disease Pulmonary edema Right hemiparesis Seasonal allergies Secondary adrenal insufficiency Stomach ulcer Trigeminal trophic syndrome Type 2 diabetes mellitus Home Medications levothyroxine 88 mcg PO DAILY 11/17/17 [History Last Taken 08/09/19] multivitamin 1 ea PO DAILY 12/29/17 [History Last Taken 08/09/19] pantoprazole 40 mg PO BID 03/29/19 [History Last Taken 08/09/19] amitriptyline 25 mg PO QHS 08/10/19 [History Last Taken Unknown] rosuvastatin 20 mg tablet 20 mg PO QHS 08/25/19 [History Last Taken Unknown] sitagliptin 50 mg tablet 50 mg PO DAILY 09/04/19 [History Last Taken Unknown] hydrocodone-acetaminophen 7.5 tab PO BID PRN 09/10/20 [History Last Taken Unknown] dicyclomine 20 mg PO TIDAC 10/19/20 [History Last Taken Unknown] duloxetine 60 mg PO BID 10/19/20 [History Last Taken Unknown] valacyclovir 500 mg PO DAILY 10/19/20 [History Last Taken Unknown] aspirin 81 mg PO DAILY@0800 #30 tab 01/17/21 [Rx Last Taken Unknown] tizanidine 4 mg tablet 4 mg PO Q8H PRN 01/26/21 [History Last Taken Unknown] ascorbate calcium (vitamin C) 500 mg tablet 500 mg PO DAILY 01/27/21 [History Last Taken Unknown] calcium carbonate 600 mg-vitamin D3 12.5 mcg (500 unit) capsule 1 cap PO DAILY 01/27/21 [History Last Taken Unknown] magnesium oxide 400 mg PO DAILY 01/27/21 [History Last Taken Unknown] venlafaxine 150 mg PO QHS 02/04/21 [History Last Taken Unknown] Lactobacillus rhamnosus GG 10 billion cell capsule 1 cap PO DAILY 05/18/21 [History Last Taken Unknown] furosemide 40 mg tablet 20 - 40 mg PO DAILY PRN tablet 05/18/21 [History Last Taken Unknown] pregabalin 100 mg capsule 100 mg PO DAILY 05/18/21 [History Last Taken Unknown] carvedilol 25 mg tablet 25 mg PO BID 08/23/21 [History Last Taken Unknown] fluticasone propion-salmeterol [Advair Diskus] 1 inh INHALATION BID 02/11/22 [History Last Taken Unknown] sacubitril-valsartan [Entresto] 1 tab PO BID 02/11/22 [History Last Taken Unknown] venlafaxine 75 mg PO DAILY 02/11/22 [History Last Taken Unknown] alendronate 70 mg PO TU 02/13/22 [History Last Taken 02/07/22] cetirizine [Zyrtec] 10 mg PO DAILY 02/13/22 [History Last Taken 02/12/22] zinc 50 mg PO DAILY 02/13/22 [History Last Taken 02/12/22] Allergy/AdvReac Type Severity Reaction Status Date / Time adhesive Allergy skin Verified 02/13/22 13:32 irritation amlodipine [From Norvas] Allergy tachycardia Verified 02/13/22 13:32 hydromorphone HCl Allergy Itching Verified 02/13/22 13:32 [From Dilaudid] sulfamethoxazole Allergy made my Verified 02/13/22 13:32 [From Bactrim] cold sore huge trimethoprim [From Bactrim] Allergy made my Verified 02/13/22 13:32 cold sore huge Family History Grandfather Alcoholism Grandmother Myocardial infarction Mother Arthritis Diverticulitis COPD (chronic obstructive pulmonary disease) Afib Thyroid disorder Father Arthritis Diabetes Myocardial infarction Heart disease Ischemic Hypertension Hyperlipidemia Brother Arthritis Aunt Breast cancer Sister Arthritis Thyroid disorder Skin cancer Uncle Diabetes Surgical History Ankle fracture Fracture of left femur History of angioplasty of peripheral vessel (2010) History of arthroscopic knee surgery History of back surgery History of bilateral knee replacement History of carpal tunnel release History of cholecystectomy History of intestine removal History of left heart catheterization (2011) History of tonsillectomy and adenoidectomy History of trigger finger History of ventral hernia repair Strangulated ventral hernia Social History Smoking Status: Former smoker how long ago did patient quit smokin alcohol intake: never substance use type: does not use what type of physical activity do you participate in: other ROS ROS ED Constitutional Constitutional ED: Denies chills or fever(s) Eyes Eyes: Denies blurry vision or change in vision ENT ENT ED: Denies rhinorrhea or sore throat Cardiovascular Cardiovascular: Denies chest pain or palpitations Respiratory/Chest Respiratory/Chest: Reports cough and sputum; Denies dyspnea Gastrointestinal Gastrointestinal: Denies nausea or vomiting Genitourinary Genitourinary ED: Denies dysuria or hematuria Musculoskeletal Musculoskeletal: Denies back pain or neck pain Integumentary Denies abscess or rash Neurologic Neurologic: Reports headache(s) and weakness Allergic/Immunologic Allergic/Immunologic ED: Denies mouth swelling or urticaria EXAM Physical Exam Const Vital Signs: 02/13/22 13:27 02/13/22 14:08 02/13/22 16:16 Temperature 97.6 F L Temperature Source Temporal Pulse Rate 93 87 Respiratory Rate 16 14 Blood Pressure 132/102 H 100/61 109/71 Blood Pressure Mean 112 74 83 Pulse Ox 95 97 Oxygen Delivery Method Room Air Room Air Positive well nourished, well developed and obese General Appearance ED: well developed and NAD Nutritional Appearance: obese HEENT Reports moist mucous membranes Neck supple and no JVD Resp normal respiratory effort Cardio regular rate and regular rhythm GI normal to inspection, nondistended, normoactive bowel sounds and non-tender Palpation: soft Neuro oriented x3, CN's II-XII intact bilaterally and no sensory deficits noted Sensorium / Orientation: alert Motor Exam: strength 5/5 throughout MDM MDM MDM Narrative Medical decision making narrative: EKG was obtained. On my interpretation, it showed a normal sinus rhythm with a rate of 85. NV interval, QRS interval, and QTc intervals were all normal. [place] was normal. There are no acute ST or T wave changes. CBC shows a mild anemia with a hemoglobin of 7.9 and hematocrit of 23.5. Comprehensive metabolic profile shows a creatinine of 2.17 BUN of 39. These are consistent with prior results. Urinalysis shows a leukocyte esterase of 100 with 5-10 white blood cells and 2+ bacteria. Urine culture was ordered. Patient was given a dose of Rocephin here. CT scan of the brain was obtained. There is no acute intracranial abnormality. This was interpreted by the radiologist and reviewed by myself. Portable 1 view chest x-ray was obtained. On my interpretation, lung basurto are clear. There is normal cardiac silhouette. Bony thorax is normal. There is no acute process noted. Radiologist also interpreted the x-ray and agrees. Patient does not think she can care for herself at home. firestop/containment worker was in to evaluate the patient. She agrees that the patient will have difficulty taking care of herself at home. She states the patient has been to [facility] in the past and is agreeable to go back there. She states the patient will need to be admitted in order for this to happen. Patient is agreeable for admission. Case was discussed with the hospitalist. He will admit the patient for observation. Patient understood and was agreeable with the plan. All questions were answered. Lab Data Attestation: I reviewed the patient's lab results. Labs: Laboratory Results - last 24 hr 02/13/22 02/13/22 02/13/22 14:41 15:00 15:30 WBC 4.9 RBC 2.55 L Hgb 7.9 L Hct 23.5 L MCV 92.2 MCH 31.0 MCHC 33.6 RDW Std Deviation 48.3 H RDW Coeff of Lencho 14.2 Plt Count 129 L MPV 10.2 Immature Gran % (Auto) 0.400 Neut % (Auto) 72.1 H Lymph % (Auto) 14.6 L [place] % (Auto) 11.5 H Eos % (Auto) 1.0 Baso % (Auto) 0.4 Absolute Neuts (auto) 3.5 Absolute Lymphs (auto) 0.71 L Nucleated RBC % 0 Platelet Estimate SLT DEC RBC Morphology NORM C+C Sodium 136 Potassium 4.4 Chloride 108 H Carbon Dioxide 21.0 Anion Gap 7 BUN 39 H Creatinine 2.17 H Estim Creat Clear Calc 21.53 Est GFR (MDRD) Af Amer 30 L Est GFR (MDRD) Non-Af 25 L BUN/Creatinine Ratio 18.0 Glucose 122 H Calcium 10.0 Total Bilirubin 0.40 AST 117 H ALT 41 Alkaline Phosphatase 60 Troponin I High Sens 31 Total Protein 6.6 Albumin 3.1 L Globulin 3.5 Albumin/Globulin Ratio 0.9 Urine Color Yellow Urine Clarity Clear Urine pH 6.0 Ur Specific [place] 1.020 Urine Protein 30 H Urine Glucose (UA) Normal Urine Ketones Negative Urine Occult Blood 250 H Urine Nitrite Negative Urine Bilirubin Negative Urine Urobilinogen Normal Ur Leukocyte Esterase 100 H Urine RBC 0-5 SEEN Urine WBC 5-10 SEEN Ur Squamous Epith Cells 0-5 SEEN Urine Bacteria 2+ Urine Mucus 0 SEEN Radiography Chest X-Ray - ED: 1 View, Read by ED Physician, Read by Radiologist and No Acute Disease Diagnostic Testing: Clinical Impression(s) from Imaging Studies Chest X-Ray 02/13/22 14:05 IMPRESSION: No radiographic evidence of acute cardiopulmonary disease. Electronically Signed: Jake Alvarado MD at 15:36 EDT , Brain CT 02/13/22 15:00 IMPRESSION: Unremarkable CT scan of the brain Electronically Signed: Jake Alvarado MD at 15:33 EDT Reading Location ID and State: [facility] / [place] Tel , Service support , EKG Initial EKG: Attestation: I personally reviewed and interpreted this EKG as follows: Interpretation: Sinus Rhythm (85) and No Acute Injury Pattern Prior EKG tracings: available for review Prior: Unchanged (08/29/2021) Discharge Plan Dx/Rx/DC Orders Clinical Impression: Debility, UTI (urinary tract infection), Confusion Disposition Disposition: Acute Care Hospital [facility]
--- NOTE | 2022-02-13 14:42 | EKG12_ITS ---
Test Reason : DYSRHYTHMIA Blood Pressure : / mmHG Vent. Rate : 085 BPM Atrial Rate : 085 BPM P-R Int : 204 ms QRS Dur : 108 ms QT Int : 398 ms P-R-T Axes : 054 044 045 degrees QTc Int : 473 ms Normal sinus rhythm Normal ECG Confirmed by CALEB CASTRO, KENAN ([id number]), news assignment editor CASS VERAS ([id number]) on 02/15/2022 11:41:02 AM Referred By: MARLEN Confirmed By:KENAN ELLIS MD
--- NOTE | 2022-02-13 15:00 | CT_ITS ---
INDICATION: Confusion after fall EXAMINATION: CT BRAIN - CT Head or Brain W/O Contrast Injection TECHNIQUE: Multiple axial images were obtained of the head without intravenous contrast. A radiation dose optimization technique was used for this scan. IV Contrast dosage and agent: None. COMPARISON: CT Head or Brain W/O Contrast Injection 02/04/2021: CT of the brain was obtained from the vertex to the base of the skull at 5mm intervals. A radiation dose optimization technique was used for this scan. There is no focal brain parenchymal lesions, mass effect or midline shift. The ventricular system and cortical sulci are normal for the patient''s age. No intraparenchymal or extra-axial hemorrhage is identified. No CT evidence of acute infarct. No skull abnormalities are demonstrated. CT/Brain/Head without Contrast IMPRESSION: Unremarkable CT scan of the brain Electronically Signed: Jake Alvarado MD at 15:33 EDT ,
[2022-02-13 15:05] LABS: Absolute Lymphocyte Count 0.71 X10^3/uL (0.83-4.51); Absolute Neutrophil Count 3.5 X10^3/uL (2.0-7.7); Basophil# 0.02 X10^3/uL; Basophil% 0.4 % (0-1); Eosinophil# 0.05 X10^3/uL; Hematocrit 23.5 % (37-47); Hemoglobin 7.9 g/dL (12.0-15.0); Lymphocyte # 0.71 X10^3/ul (0.83-4.51); Lymphocyte % 14.6 % (19-41); Mean Corp Hgb Conc 33.6 g/dL (32-36); Mean Corpuscular Volume 92.2 fL (81-99); Mean Platelet Vol. 10.2 fl (6.2-12.0); Monocyte# 0.56 X10^3/uL; Monocyte% 11.5 % (0-10); NRBC Flagged by Analyzer 0 % (0-5); Neutrophil # 3.49 X10^3/uL (2.7-7.7); Neutrophil % 72.1 % (47-70); POSITIVE MORPHOLOGY YES; Platelet Count 129 K/mm3 (150-450); RBC Distribution Width CV 14.2 % (11.6-14.6); RBC Distribution Width SD 48.3 fl (35.1-43.9); Red Blood Count 2.55 M/mm3 (4.2-5.4); White Blood Count 4.9 K/mm3 (4.4-11.0)
[2022-02-13 15:06] LABS: Differential Indicated SCAN CRITERIA MET
[2022-02-13 15:27] LABS: ALB/GLOB Ratio 0.9 RATIO (0.9-2.4); AST(SGOT) 117 U/L (15-37); Alanine Aminotransfer ALT/SGPT 41 U/L (13-56); Albumin, Serum 3.1 g/dL (3.2-5.0); Alkaline Phosphatase 60 U/L (45-117); Anion Gap 7 (5-15); BUN 39 mg/dL (7-18); Chloride 108 mmol/L (98-107); Creatinine, Serum 2.17 mg/dL (0.55-1.02); EST Glomerular Filtration Rate 25 mL/min (>60); Est Glom Filt Rate - Afr Amer 30 mL/min (>60); Estimated Creatinine Clearance 21.53 ml/min; Globulin 3.5 g/dL (2.2-4.2); Glucose 122 mg/dL (74-106); Potassium 4.4 mmol/L (3.5-5.1); Protein, Total 6.6 g/dL (6.4-8.2); Sodium Level 136 mmol/L (136-145); Troponin-I HS 31 pg/mL (3.0-54.0)
[2022-02-13 15:37] LABS: Mucous, Urine 0 SEEN /hpf (<or=2+)
[2022-02-13 15:39] LABS: Color, Urine Yellow (Yellow); Glucose, Dipstick Normal (Normal); Ketone-Dipstick Negative (Negative); Leukocyte Esterase-Dipstick 100 /ul (Negative); Nitrite-Dipstick Negative (Negative); Occult Blood-Urine 250 /ul (Negative); Protein-Dipstick 30 mg/dl (Negative); Urine Bilirubin Dipstick Negative (Negative); Urine Clarity Clear (Clear); Urine Urobilinogen Normal (Normal)
[2022-02-13 15:46] LABS: Platelet Estimate SLT DEC (ADEQ); Red Cell Morphology NORM C+C NORMAL (NORM C&C)
[2022-02-13 15:51] LABS: Bacteria 2+ /hpf (None Seen); Squamous Epithelial Cells - UA 0-5 SEEN /hpf (5-10); White Blood Cells 5-10 SEEN /hpf (0-5)
[2022-02-13 15:52] LABS: Red Blood Cells-Urine 0-5 SEEN /hpf (0-5)
[2022-02-13] MEDS: Ceftriaxone 1 GM/50 ML BAG IV (16:13)
[2022-02-13 16:16] VITALS: BP 109/71; PULSE 87; RESP 14; O2SAT 97
--- NOTE | 2022-02-13 17:20 | CM.ED ---
Social Work Consult: Discharge Planning Referral source: Dr. Rivera Met with patient in room. Introduced self and psychotherapist social worker role. Patient agreeable to speak with this psychotherapist social worker. This psychotherapist social worker broached topic of correction placement for patient. Patient states things are not going well at home. Patient states to live alone and to have broken ankle yesterday. Patient states to have a walker and cane but doesn't really work in my house. Patient states to have a HCPOA, patient sister Dee Florence. This psychotherapist social worker noted that HCPOA paperwork is on file for patient. Patient reports history of placement to [facility] in the past. Patient is open to correction placement. This psychotherapist social worker provided patient with list of in-network nursing facilities that are local to patient geographical region. PLAN: Admit to acute care setting for correction placement. Social Work to continue to follow. Cyn VIZCAINO, MYNOR
[2022-02-13 17:48] VITALS: BP 107/71; PULSE 71; RESP 16; TEMP 36.6; O2SAT 97
--- NOTE | 2022-02-13 17:48 | HP.PCM.HOS_ITS ---
Documented by User: Renata Rojas NP, [employer]IVER-C 02/13/22 18:18 HPI - General General Date of Admission: 02/13/22 HPI Narrative BILL CHOI, is a 61 F who presents to the emergency room due to confusion this morning as well as difficulty caring for herself following breaking her ankle on Sunday. Patient states she takes [place] twice daily at baseline however following her ankle fracture on Sunday, increased to 2 tabs twice a day and feels this led to her confusion. She states she could tell she was confused and it has since gotten better. She denies recent illness. Denies fever, chills. Denies urinary symptoms. Denies focal weakness or other ne urologic symptoms. She has a past medical history of asthma, chronic heart failure with reduced ejection fraction, type 2 diabetes mellitus, CAD, chronic kidney disease stage III, history of CVA, hypertension, hypothyroidism, GERD, depression, anxiety, history of partial colectomy secondary to recurrent diverticulitis. [facility] Medical History (Updated 02/13/22 @ 17:54 by Maria Esther Maurice) ACTH deficiency Acute respiratory failure with hypoxia Allergic rhinitis Anemia Asthma Asthma exacerbation Atherosclerosis of coronary artery without angina pectoris Bilateral leg weakness Bone fracture Cardiomyopathy Carotid artery stenosis Carpal tunnel syndrome Chronic constipation with suspected IBS Chronic headaches Chronic systolic (congestive) heart failure CKD (chronic kidney disease) stage 3, GFR 30-59 ml/min Debility Essential hypertension Falls Flash pulmonary edema (01/16/21) Gait difficulty Gallstones GERD (gastroesophageal reflux disease) GI problem Herpes simplex History of Clostridium difficile infection History of CVA (cerebrovascular accident) (2018) History of depression History of emotional problems History of ischemic colitis Hx of diverticulitis of colon Hyperlipidemia Hypertension Hypotension Hypothyroidism Irritable bowel syndrome Kidney disease Neuropathy Non-ischemic cardiomyopathy Normochromic normocytic anemia Obesity Osteoarthritis Osteopenia Osteoporosis Peripheral vascular disease Pulmonary edema Right hemiparesis Seasonal allergies Secondary adrenal insufficiency Stomach ulcer Stroke/cerebrovascular accident Trigeminal trophic syndrome Type 2 diabetes mellitus Home Medications multivitamin 1 ea PO DAILY 12/29/17 [History Last Taken 02/12/22] pantoprazole 40 mg PO BID 03/29/19 [History Last Taken 02/12/22] amitriptyline 25 mg PO QHS 08/10/19 [History Last Taken 02/12/22] rosuvastatin 20 mg tablet 20 mg PO QHS 10/21/19 [History Last Taken 02/12/22] sitagliptin 50 mg tablet 50 mg PO DAILY 09/04/19 [History Last Taken 02/12/22] hydrocodone-acetaminophen 7.5 tab PO BID PRN 09/10/20 [History Last Taken 02/12/22] dicyclomine 20 mg PO TIDAC 10/19/20 [History Last Taken 02/12/22] duloxetine 60 mg PO BID 10/19/20 [History Last Taken 02/12/22] valacyclovir 500 mg PO DAILY 10/19/20 [History Last Taken 02/12/22] aspirin 81 mg PO DAILY@0800 #30 tab 01/17/21 [Rx Last Taken 02/12/22] tizanidine 4 mg tablet 4 mg PO Q8H PRN 01/26/21 [History Last Taken 02/12/22] ascorbate calcium (vitamin C) 500 mg tablet 500 mg PO DAILY 01/27/21 [History Last Taken 02/12/22] calcium carbonate 600 mg-vitamin D3 12.5 mcg (500 unit) capsule 1 cap PO DAILY 01/27/21 [History Last Taken 02/12/22] magnesium oxide 400 mg PO DAILY 01/27/21 [History Last Taken 02/12/22] venlafaxine 150 mg PO QHS 02/04/21 [History Last Taken 02/12/22] Lactobacillus rhamnosus GG 10 billion cell capsule 1 cap PO DAILY 05/18/21 [History Last Taken 02/12/22] furosemide 40 mg tablet 20 - 40 mg PO DAILY PRN tablet 05/18/21 [History Last Taken Unknown] pregabalin 100 mg capsule 100 mg PO DAILY 05/18/21 [History Last Taken 02/12/22] carvedilol 25 mg tablet 25 mg PO BID 08/23/21 [History Last Taken 02/12/22] fluticasone propion-salmeterol [Advair Diskus] 1 inh INHALATION BID 02/11/22 [History Last Taken 02/12/22] sacubitril-valsartan [Entresto] 1 tab PO BID 02/11/22 [History Last Taken 02/03 ] venlafaxine 75 mg PO DAILY 02/11/22 [History Last Taken 02/12/22] alendronate 70 mg PO TU 02/13/22 [History Last Taken 02/07/22] cetirizine [Zyrtec] 10 mg PO DAILY 02/13/22 [History Last Taken 02/12/22] levothyroxine 100 mcg PO DAILY 02/13/22 [History Last Taken 02/12/22] zinc 50 mg PO DAILY 02/13/22 [History Last Taken 02/12/22] Allergy/AdvReac Type Severity Reaction Status Date / Time adhesive Allergy skin Verified 02/13/22 13:32 irritation amlodipine [From Norvasc] Allergy tachycardia Verified 02/13/22 13:32 hydromorphone HCl Allergy Itching Verified 02/13/22 13:32 [From Dilaudid] sulfamethoxazole Allergy made my Verified 02/13/22 13:32 [From Bactrim] cold sore huge trimethoprim [From Bactrim] Allergy made my Verified 02/13/22 13:32 cold sore huge Family History Grandfather Alcoholism Grandmother Myocardial infarction Mother Arthritis Diverticulitis COPD (chronic obstructive pulmonary disease) Afib Thyroid disorder Father Arthritis Diabetes Myocardial infarction Heart disease Ischemic Hypertension Hyperlipidemia Brother Arthritis Aunt Breast cancer Sister Arthritis Thyroid disorder Skin cancer Uncle Diabetes Surgical History Ankle fracture Fracture of left femur History of angioplasty of peripheral vessel (2010) History of arthroscopic knee surgery History of back surgery History of bilateral knee replacement History of carpal tunnel release History of cholecystectomy History of intestine removal History of left heart catheterization (2011) History of tonsillectomy and adenoidectomy History of trigger finger History of ventral hernia repair Strangulated ventral hernia Social History Smoking Status: Former smoker how long ago did patient quit smokin alcohol intake: never substance use type: does not use what type of physical activity do you participate in: other ROS Constitutional Constitutional: Reports fatigue and weakness; Denies change in weight, chills or fever(s) Cardiovascular Cardiovascular: Denies chest pain, edema, lightheadedness, palpitations or syncope Respiratory/Chest Respiratory/Chest: Denies cough, dyspnea, productive cough, shortness of breath at rest, shortness of breath with exertion or wheezing Gastrointestinal Gastrointestinal: Denies abdominal pain, constipation, diarrhea, nausea or vomiting Genitourinary Genitourinary: Denies burning urination, difficulty urinating, dysuria, hematuria, urinary frequency, urinary incontinence or urinary urgency Musculoskeletal Musculoskeletal: Reports other Details: Recent right ankle fracture ; Denies back pain, joint pain or muscle weakness Integumentary Integumentary: Denies erythema, lesions, rash or wounds Neurologic Neurologic: Reports confusion; Denies abnormal speech, dizziness, focal weakness, numbness, paresthesias, seizure-like activity or syncope Psychiatric Psychiatric: Reports anxiety and depression Hematologic/Lymphatic Hematologic/Lymphatic: Denies anemia, easy bleeding or easy bruising Allergic/Immunologic Allergic/Immunologic: Reports asthma; Denies hives Vital Signs Vital Signs Vital Signs: 02/13/22 13:27 02/13/22 14:08 02/13/22 16:16 Temperature 97.6 F L Temperature Source Temporal Pulse Rate 93 87 Respiratory Rate 16 14 Blood Pressure 132/102 H 100/61 109/71 Blood Pressure Mean 112 74 83 Pulse Ox 95 97 Oxygen Delivery Method Room Air Room Air Weight Weight: 281 lb 8.485 oz Body Mass Index (BMI) 51.5 Physical Exam Const alert, oriented x3 and no apparent distress Orientation / Consciousness: awake, oriented to person, oriented to place and oriented to time Nutritional Appearance: obese HEENT normocephalic and moist oral mucous membranes Eyes PERRL, EOMs intact bilaterally and conjunctivae normal Neck no lymphadenopathy Resp Auscultation: clear to auscultation bilaterally and diminished lung sounds Cardio regular rate, regular rhythm and no murmurs Peripheral Pulses: pulses 2+ throughout GI normal to inspection, nondistended, normoactive bowel sounds, non-tender and non-distended Extremity normal to inspection Extremity Narrative: Right ankle in cast Skin no rashes or lesions noted Lesions: no lesions Rashes: no rashes Trauma: no lacerations or abrasions Neuro CN's II-XII intact bilaterally, no focal motor deficits, no sensory deficits noted and deep tendon reflexes 2+ bilaterally Psych mental status grossly normal and affect normal Results Lab / Micro Data Result Diagrams: 02/13/22 14:41 02/13/22 15:00 Labs: Laboratory Results - last 24 hr 02/13/22 14:41: WBC 4.9, RBC 2.55 L, Hgb 7.9 L, Hct 23.5 L, MCV 92.2, MCH 31.0, MCHC 33.6, RDW Std Deviation 48.3 H, RDW Coeff of Lencho 14.2, Plt Count 129 L, MPV 10.2, Immature Gran % (Auto) 0.400, Neut % (Auto) 72.1 H, Lymph % (Auto) 14.6 L, [place] % (Auto) 11.5 H, Eos % (Auto) 1.0, Baso % (Auto) 0.4, Absolute Neuts (auto) 3.5, Absolute Lymphs (auto) 0.71 L, Nucleated RBC % 0, Platelet Estimate SLT DEC, RBC Morphology NORM C+C 02/13/22 15:00: Sodium 136, Potassium 4.4, Chloride 108 H, Carbon Dioxide 21.0, Anion Gap 7, BUN 39 H, Creatinine 2.17 H, Estim Creat Clear Calc 21.53, Est GFR (MDRD) Af Amer 30 L, Est GFR (MDRD) Non-Af 25 L, BUN/Creatinine Ratio 18.0, Glucose 122 H, Calcium 10.0, Total Bilirubin 0.40, AST 117 H, ALT 41, Alkaline Phosphatase 60, Troponin I High Sens 31, Total Protein 6.6, Albumin 3.1 L, Globulin 3.5, Albumin/Globulin Ratio 0.9 02/13/22 15:30: Urine Color Yellow, Urine Clarity Clear, Urine pH 6.0, Ur Specific [place] 1.020, Urine Protein 30 H, Urine Glucose (UA) Normal, Urine Ketones Negative, Urine Occult Blood 250 H, Urine Nitrite Negative, Urine Bilirubin Negative, Urine Urobilinogen Normal, Ur Leukocyte Esterase 100 H, Urine RBC 0-5 SEEN, Urine WBC 5-10 SEEN, Ur Squamous Epith Cells 0-5 SEEN, Urine Bacteria 2+, Urine Mucus 0 SEEN Radiology Impression Chest X-Ray 02/13/22 14:05 IMPRESSION: No radiographic evidence of acute cardiopulmonary disease. Electronically Signed: Jake Alvarado MD at 15:36 EDT , Brain CT 02/13/22 15:00 IMPRESSION: Unremarkable CT scan of the brain Electronically Signed: Jake Alvarado MD at 15:33 EDT Reading Location ID and State: [facility] / [place] Tel , Service support , Assessment & Plan Assessment/Plan (1) Confusion: PLAN: 1. Transient confusion, likely metabolic/toxic encephalopathy-r elated to increase in narcotic regimen related to ankle fracture on Sunday, chronic polypharmacy/sedating regimen, complicated by ARTIE. Mental status now at baseline. Brain CT unremarkable. PT/OT. 2. Recent right lateral malleolus fracture 02/11/22/status post ORIF prior right ankle fracture-in Ortho-Glass splint. Currently nonweightbearing. Following with Dr. Viramontes at [facility]. PT/OT. 3. Acute kidney injury on chronic kidney disease stage IIIb-hold diuretic regimen. Gentle IV fluids. Trend BMP. 4. Asymptomatic bacteriuria-patient is asymptomatic, no leukocytosis, afebrile. Hold off on antibiotics. 5. Chronic normocytic anemia-appears at baseline, trend CBC. 6. Chronic heart failure with preserved ejection fraction/cardiomyopathy-Echo 04/26/2021 demonstrated an EF of 60%. Continue medical management. On Entresto. 7. Chronic asthma-as needed albuterol aerosol. 8. Type 2 diabetes sedgkurn-Ffpd-Hepzn with sliding scale insulin. On sitagliptin. 9. CAD-no history of stents. Continue aspirin, statin, carvedilol. 7. History of CVA-continue aspirin, statin. 8. Hypertension-continue carvedilol. Hold Entresto given ARTIE. 9. Hypothyroidism-continue Synthroid regimen. 10. GERD-continue PPI. 11. Depression/anxiety-on duloxetine, venlafaxine, amitriptyline. 12. History of partial colectomy secondary to recurrent diverticulitis/history of C. difficile 13. Obesity-BMI 51. Encouraged diet and lifestyle modifications. DVT prophylaxis-Heparin subcu This patient was seen by Renata Bob, C[employer]IVER-C under the supervision of Dr. Blackman. Time spent examining patient, reviewing data and subsequent management of care: 18 Minutes Documented by User: Dr. Markie Blackman MD 02/13/22 18:51 HPI - General General Date of Admission: 02/13/22 [facility] Medical History (Updated 02/13/22 @ 17:54 by Maria Esther Maurice) ACTH deficiency Acute respiratory failure with hypoxia Allergic rhinitis Anemia Asthma Asthma exacerbation Atherosclerosis of coronary artery without angina pectoris Bilateral leg weakness Bone fracture Cardiomyopathy Carotid artery stenosis Carpal tunnel syndrome Chronic constipation with suspected IBS Chronic headaches Chronic systolic (congestive) heart failure CKD (chronic kidney disease) stage 3, GFR 30-59 ml/min Debility Essential hypertension Falls Flash pulmonary edema (01/16/21) Gait difficulty Gallstones GERD (gastroesophageal reflux disease) GI problem Herpes simplex History of Clostridium difficile infection History of CVA (cerebrovascular accident) (2018) History of depression History of emotional problems History of ischemic colitis Hx of diverticulitis of colon Hyperlipidemia Hypertension Hypotension Hypothyroidism Irritable bowel syndrome Kidney disease Neuropathy Non-ischemic cardiomyopathy Normochromic normocytic anemia Obesity Osteoarthritis Osteopenia Osteoporosis Peripheral vascular disease Pulmonary edema Right hemiparesis Seasonal allergies Secondary adrenal insufficiency Stomach ulcer Stroke/cerebrovascular accident Trigeminal trophic syndrome Type 2 diabetes mellitus Home Medications multivitamin 1 ea PO DAILY 12/29/17 [History Last Taken 02/12/22] pantoprazole 40 mg PO BID 03/29/19 [History Last Taken 02/12/22] amitriptyline 25 mg PO QHS 08/10/19 [History Last Taken 02/12/22] rosuvastatin 20 mg tablet 20 mg PO QHS 08/25/19 [History Last Taken 02/12/22] sitagliptin 50 mg tablet 50 mg PO DAILY 09/04/19 [History Last Taken 02/12/22] hydrocodone-acetaminophen 7.5 tab PO BID PRN 09/10/20 [History Last Taken 02/12/22] dicyclomine 20 mg PO TIDAC 10/19/20 [History Last Taken 02/12/22] duloxetine 60 mg PO BID 10/19/20 [History Last Taken 02/12/22] valacyclovir 500 mg PO DAILY 10/19/20 [History Last Taken 02/12/22] aspirin 81 mg PO DAILY@0800 #30 tab 01/17/21 [Rx Last Taken 02/12/22] tizanidine 4 mg tablet 4 mg PO Q8H PRN 01/26/21 [History Last Taken 02/12/22] ascorbate calcium (vitamin C) 500 mg tablet 500 mg PO DAILY 01/27/21 [History Last Taken 02/12/22] calcium carbonate 600 mg-vitamin D3 12.5 mcg (500 unit) capsule 1 cap PO DAILY 01/27/21 [History Last Taken 02/12/22] magnesium oxide 400 mg PO DAILY 01/27/21 [History Last Taken 02/12/22] venlafaxine 150 mg PO QHS 02/04/21 [History Last Taken 02/12/22] Lactobacillus rhamnosus GG 10 billion cell capsule 1 cap PO DAILY 05/18/21 [History Last Taken 02/12/22] furosemide 40 mg tablet 20 - 40 mg PO DAILY PRN tablet 05/18/21 [History Last Taken Unknown] pregabalin 100 mg capsule 100 mg PO DAILY 05/18/21 [History Last Taken 02/12/22] carvedilol 25 mg tablet 25 mg PO BID 08/23/21 [History Last Taken 02/12/22] fluticasone propion-salmeterol [Advair Diskus] 1 inh INHALATION BID 02/11/22 [History Last Taken 02/12/22] sacubitril-valsartan [Entresto] 1 tab PO BID 02/11/22 [History Last Taken 02/12/22] venlafaxine 75 mg PO DAILY 02/11/22 [History Last Taken 02/12/22] alendronate 70 mg PO TU 02/13/22 [History Last Taken 02/07/22] cetirizine [Zyrtec] 10 mg PO DAILY 02/13/22 [History Last Taken 02/12/22] levothyroxine 100 mcg PO DAILY 02/13/22 [History Last Taken 02/12/22] zinc 50 mg PO DAILY 02/13/22 [History Last Taken 02/12/22] Allergy/AdvReac Type Severity Reaction Status Date / Time adhesive Allergy skin Verified 02/13/22 13:32 irritation amlodipine [From Norvasc] Allergy tachycardia Verified 02/13/22 13:32 hydromorphone HCl Allergy Itching Verified 02/13/22 13:32 [From Dilaudid] sulfamethoxazole Allergy made my Verified 02/13/22 13:32 [From Bactrim] cold sore huge trimethoprim [From Bactrim] Allergy made my Verified 02/13/22 13:32 cold sore huge Family History Grandfather Alcoholism Grandmother Myocardial infarction Mother Arthritis Diverticulitis COPD (chronic obstructive pulmonary disease) Afib Thyroid disorder Father Arthritis Diabetes Myocardial infarction Heart disease Ischemic Hypertension Hyperlipidemia Brother Arthritis Aunt Breast cancer Sister Arthritis Thyroid disorder Skin cancer Uncle Diabetes Surgical History Ankle fracture Fracture of left femur History of angioplasty of peripheral vessel (2010) History of arthroscopic knee surgery History of back surgery History of bilateral knee replacement History of carpal tunnel release History of cholecystectomy History of intestine removal History of left heart catheterization (2011) History of tonsillectomy and adenoidectomy History of trigger finger History of ventral hernia repair Strangulated ventral hernia Social History Smoking Status: Former smoker how long ago did patient quit smokin alcohol intake: never substance use type: does not use what type of physical activity do you participate in: other Results Lab / Micro Data Result Diagrams: 02/13/22 14:41 02/13/22 15:00 Charges/Coding Addendum Addendum: Dr. Blackman: I personally reviewed the chart and examined the patient, and agree with the above findings. 61-year-old female presented to the hospital with confusion and altered mental status. She had a previous plate and screws in her right ankle and she fell on Sunday and came into the ER there is concern for another ankle fracture, she does have a mildly displaced lateral malleolus fracture however the screws also had a lucency around them and there is some concern for possible loosening of the hardware but according to the patient on Sunday this has been present previously. Today she presents because family noticed that she was more confused and they feel that she had been taking twice as many narcotics that she was supposed to be at home. She denies this however she is slow in her mentation and sedate consistent with a potential overdose of narcotics. She is having difficulty completing ADLs, her creatinine is elevated and she is dehydrated creatinine is elevated over 2 and her base line is less than 1.5. We will continue with gentle IV fluid hydration and hold her Entresto and Lasix. Will recheck renal function in the morning. We will have her evaluated by PT and OT for possible placement, she has been in [place] in the past. Her previous ankle surgeries were done at the [facility]. Visit Charges OBSV E&M: [id number] Initial observation care L3
[2022-02-13 18:24] VITALS: BMI 43.9
[2022-02-13 18:30] VITALS: BP 109/59; PULSE 97; RESP 16; TEMP 36.7; O2SAT 98
[2022-02-13] MEDS: 0.9% Normal Saline 1,000 ML 75 ML IV (19:39)
[2022-02-13] MEDS: HYDROcodone Bitartrate/Apap 5/325 Tablet PO (19:40)
[2022-02-13] MEDS: 0.9% Saline Lock 10 ML Syringe IV (19:41)
[2022-02-13] MEDS: Heparin Injection (Vial) 5,000 UNIT/ML VIAL 5000 UNIT SC (21:33)
[2022-02-13] MEDS: Atorvastatin Calcium 40 MG Tablet PO (21:33)
[2022-02-13] MEDS: Pantoprazole Sodium 40 MG Tablet PO (21:33)
[2022-02-13] MEDS: Acyclovir 200 MG Capsule 400 MG PO (21:33)
[2022-02-13] MEDS: Venlafaxine HCl 75 MG Tablet 150 MG PO (21:34)
[2022-02-13] MEDS: Amitriptyline 25 MG Tablet PO (21:34)
[2022-02-13] MEDS: DULoxetine Hcl 60 MG Capsule PO (21:34)
[2022-02-13 21:40] LABS: Bedside Glucose 131 mg/dL (74-106)
[2022-02-13 22:35] VITALS: PULSE 94; RESP 17; O2SAT 96
[2022-02-13] MEDS: Budesonide Respules 0.5 MG/2 ML AMPUL.NEB. INHALATION (22:35)
[2022-02-13] MEDS: Albuterol 2.5 MG/3 ML VIAL.NEB. INHALATION (22:35)
[2022-02-14] VITALS (9 sets, daily range): BP systolic 97–161; BP diastolic 38–75; PULSE 63–103; RESP 16–20; TEMP 36.8–37.8; O2SAT 89–98
[2022-02-14 06:01] LABS: Absolute Lymphocyte Count 0.78 X10^3/uL (0.83-4.51); Absolute Neutrophil Count 2.6 X10^3/uL (2.0-7.7); Basophil# 0.02 X10^3/uL; Basophil% 0.5 % (0-1); Eosinophil# 0.19 X10^3/uL; Eosinophils% 4.7 % (0-5); Hematocrit 24.1 % (37-47); Hemoglobin 7.9 g/dL (12.0-15.0); Lymphocyte # 0.78 X10^3/ul (0.83-4.51); Lymphocyte % 19.2 % (19-41); Mean Corp Hgb Conc 32.8 g/dL (32-36); Mean Corpuscular Hgb 30.9 pg (27.0-32.0); Mean Corpuscular Volume 94.1 fL (81-99); Mean Platelet Vol. 10.6 fl (6.2-12.0); Monocyte# 0.43 X10^3/uL; Monocyte% 10.6 % (0-10); NRBC Flagged by Analyzer 0 % (0-5); Neutrophil # 2.64 X10^3/uL (2.7-7.7); Neutrophil % 64.8 % (47-70); POSITIVE COUNT YES; Platelet Count 111 K/mm3 (150-450); RBC Distribution Width CV 14.4 % (11.6-14.6); RBC Distribution Width SD 49.9 fl (35.1-43.9); Red Blood Count 2.56 M/mm3 (4.2-5.4); White Blood Count 4.1 K/mm3 (4.4-11.0)
[2022-02-14 06:09] LABS: Differential Indicated SCAN CRITERIA MET
[2022-02-14] MEDS: Levothyroxine 100 MCG Tablet PO (06:10)
[2022-02-14] MEDS: Dicyclomine 10 MG Capsule 20 MG PO ×3 (06:10→17:06)
[2022-02-14 06:27] LABS: Anion Gap 7 (5-15); BUN 27 mg/dL (7-18); BUN/Creat Ratio 22.7 RATIO (10-20); Calcium,Total 9.4 mg/dL (8.5-10.1); Chloride 111 mmol/L (98-107); Creatinine, Serum 1.19 mg/dL (0.55-1.02); EST Glomerular Filtration Rate 49 mL/min (>60); Est Glom Filt Rate - Afr Amer 59 mL/min (>60); Estimated Creatinine Clearance 39.26 ml/min; Glucose 111 mg/dL (74-106); Potassium 3.6 mmol/L (3.5-5.1); Sodium Level 138 mmol/L (136-145)
[2022-02-14 06:33] LABS: Differential Comment SCANNED
[2022-02-14 06:55] LABS: Bedside Glucose 119 mg/dL (74-106)
[2022-02-14] MEDS: Albuterol 2.5 MG/3 ML VIAL.NEB. INHALATION ×3 (06:59→18:32)
[2022-02-14] MEDS: Budesonide Respules 0.5 MG/2 ML AMPUL.NEB. INHALATION ×2 (06:59→18:32)
[2022-02-14] MEDS: HYDROcodone Bitartrate/Apap 5/325 Tablet PO ×2 (07:38→21:24)
[2022-02-14] MEDS: Carvedilol 25 MG Tablet PO ×2 (07:42→17:06)
[2022-02-14] MEDS: Aspirin E.C. 81 MG Tablet PO (07:43)
[2022-02-14] MEDS: tiZANidine HCl 2 MG Tablet 4 MG PO (07:49)
[2022-02-14] MEDS: 0.9% Normal Saline 1,000 ML 75 ML IV (08:37)
--- NOTE | 2022-02-14 08:53 | CASEMGMT ---
Social Work Note SW received message from Sreekanth from [employer] stating she is pt's CM and would like to remain updated on pt's discharge plans. Bella Bundy NEWS INTERN, RUG RECEIVING CLERK
[2022-02-14] MEDS: Loratadine 10 MG Tablet PO (10:18)
[2022-02-14] MEDS: DULoxetine Hcl 60 MG Capsule PO ×2 (10:18→21:25)
[2022-02-14] MEDS: Heparin Injection (Vial) 5,000 UNIT/ML VIAL 5000 UNIT SC ×2 (10:19→21:30)
[2022-02-14] MEDS: Venlafaxine HCl 75 MG Tablet PO (10:19)
[2022-02-14] MEDS: Pantoprazole Sodium 40 MG Tablet PO ×2 (10:20→21:24)
[2022-02-14] MEDS: Acyclovir 200 MG Capsule 400 MG PO ×2 (10:21→21:24)
[2022-02-14] MEDS: Pregabalin 50 MG Capsule 100 MG PO (10:24)
--- NOTE | 2022-02-14 11:08 | CASEMGMT ---
Social Work Note SW updated that pt is requesting TCU at discharge. SW placed a call to Tamara with TCU and left message regarding referral. SW waiting for call back. Plan: TCU pending acceptance and pre-cert Bella Bundy TELECOMMUNICATION ENGINEER, IMMERSION METALCLEANER
[2022-02-14] MEDS: Insulin Lispro 100 UNIT/ML INSULN.PEN SC (11:22)
[2022-02-14 11:35] LABS: Bedside Glucose 191 mg/dL (74-106)
--- NOTE | 2022-02-14 11:59 | PCM.PN.HOSP ---
Documented by User: Renata Rojas MARKETING AUTOMATION SPECIALIST, MARKETING AUTOMATION SPECIALIST-C 02/14/22 12:10 Subjective Subjective Patient seen and examined. No further confusion. Mental status at baseline. Patient requesting TCU at discharge for rehab due to recent ankle fracture and difficulty caring for self at home. Denies other symptoms or complaints. Objective Data Objective Data Vital Signs: Vital Signs Temp Pulse Resp BP Pulse Ox 98.8 F 97 16 97/52 L 95 02/14/22 09:50 02/14/22 09:50 02/14/22 09:50 02/14/22 09:50 02/14/22 09:50 Oxygen Delivery Method Room Air Weight: 240 lb Body Mass Index (BMI) 43.9 Intake & Output: Intake and Output for Last 24 Hours 02/12/22 02/13/22 02/14/22 23:59 23:59 23:59 Intake Total 50 / 50 1872.5 / 1872.5 Output Total 800 / 800 Balance 50 / 50 1072.5 / 1072.5 Lab / Micro Data Result Diagrams: 02/14/22 05:16 02/14/22 05:16 Labs: Laboratory Results - last 24 hr 02/13/22 14:41: WBC 4.9, RBC 2.55 L, Hgb 7.9 L, Hct 23.5 L, MCV 92.2, MCH 31.0, MCHC 33.6, RDW Std Deviation 48.3 H, RDW Coeff of Lencho 14.2, Plt Count 129 L, MPV 10.2, Immature Gran % (Auto) 0.400, Neut % (Auto) 72.1 H, Lymph % (Auto) 14.6 L, [place] % (Auto) 11.5 H, Eos % (Auto) 1.0, Baso % (Auto) 0.4, Absolute Neuts (auto) 3.5, Absolute Lymphs (auto) 0.71 L, Nucleated RBC % 0, Platelet Estimate SLT DEC, RBC Morphology NORM C+C 02/13/22 15:00: Sodium 136, Potassium 4.4, Chloride 108 H, Carbon Dioxide 21.0, Anion Gap 7, BUN 39 H, Creatinine 2.17 H, Estim Creat Clear Calc 21.53, Est GFR (MDRD) Af Amer 30 L, Est GFR (MDRD) Non-Af 25 L, BUN/Creatinine Ratio 18.0, Glucose 122 H, Calcium 10.0, Total Bilirubin 0.40, AST 117 H, ALT 41, Alkaline Phosphatase 60, Troponin I High Sens 31, Total Protein 6.6, Albumin 3.1 L, Globulin 3.5, Albumin/Globulin Ratio 0.9 02/13/22 15:30: Urine Color Yellow, Urine Clarity Clear, Urine pH 6.0, Ur Specific [place] 1.020, Urine Protein 30 H, Urine Glucose (UA) Normal, Urine Ketones Negative, Urine Occult Blood 250 H, Urine Nitrite Negative, Urine Bilirubin Negative, Urine Urobilinogen Normal, Ur Leukocyte Esterase 100 H, Urine RBC 0-5 SEEN, Urine WBC 5-10 SEEN, Ur Squamous Epith Cells 0-5 SEEN, Urine Bacteria 2+, Urine Mucus 0 SEEN 02/13/22 21:32: POC Glucose 131 H 02/14/22 05:16: WBC 4.1 L, RBC 2.56 L, Hgb 7.9 L, Hct 24.1 L, MCV 94.1, MCH 30.9, MCHC 32.8, RDW Std Deviation 49.9 H, RDW Coeff of Lencho 14.4, Plt Count 111 L, MPV 10.6, Immature Gran % (Auto) 0.200, Neut % (Auto) 64.8, Lymph % (Auto) 19.2, [place] % (Auto) 10.6 H, Eos % (Auto) 4.7, Baso % (Auto) 0.5, Absolute Neuts (auto) 2.6, Absolute Lymphs (auto) 0.78 L, Nucleated RBC % 0, Differential Comment SCANNED 02/14/22 05:16: Sodium 138, Potassium 3.6, Chloride 111 H, Carbon Dioxide 20.0 L, Anion Gap 7, BUN 27 H, Creatinine 1.19 H, Estim Creat Clear Calc 39.26, Est GFR (MDRD) Af Amer 59 L, Est GFR (MDRD) Non-Af 49 L, BUN/Creatinine Ratio 22.7 H, Glucose 111 H, Calcium 9.4 02/14/22 06:08: POC Glucose 119 H 02/14/22 11:18: POC Glucose 191 H Micro: Microbiology 02/13/22 15:30 Urine Catheter - Catheter Urine Culture - Preliminary GNR lactose encoding 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 Electronically Signed: Jake Alvarado MD at 15:36 EDT , Brain CT 02/13/22 15:00 IMPRESSION: Unremarkable CT scan of the brain Electronically Signed: Jake Alvarado MD at 15:33 EDT , Physical Exam Const alert, oriented x3 and no apparent distress Orientation / Consciousness: awake, oriented to person, oriented to place and oriented to time Nutritional Appearance: obese HEENT normocephalic and moist oral mucous membranes Eyes PERRL, EOMs intact bilaterally and conjunctivae normal Neck no lymphadenopathy Resp normal respiratory effort and clear to auscultation bilaterally Cardio regular rate, regular rhythm and no murmurs Peripheral Pulses: pulses 2+ throughout GI normal to inspection, nondistended, normoactive bowel sounds, non-tender and non-distended Extremity normal to inspection Extremity Narrative: Right ankle in cast Skin no rashes or lesions noted Lesions: no lesions Rashes: no rashes Trauma: no lacerations or abrasions Neuro CN's II-XII intact bilaterally, no focal motor deficits, no sensory deficits noted and deep tendon reflexes 2+ bilaterally Psych mental status grossly normal and affect normal Assessment & Plan Assessment/Plan (1) Confusion: PLAN: 1. Transient confusion, likely metabolic/toxic encephalopathy-related to increase in narcotic regimen related to ankle fracture on Sunday, chronic polypharmacy/sedating regimen, complicated by ARTIE. Mental status now at baseline. Brain CT unremarkable. PT/OT. 2. Recent right lateral malleolus fracture 02/11/22/status post ORIF prior right ankle fracture-in Ortho-Glass splint. Currently nonweightbearing. Following with Dr. Viramontes at [facility]. PT/OT. 3. Acute kidney injury on chronic kidney disease stage IIIb-hold diuretic regimen. DC further IV fluids. Trend BMP. Improved. 4. Asymptomatic bacteriuria-patient is asymptomatic, no leukocytosis, afebrile. Hold off on antibiotics. 5. Chronic normocytic anemia-appears at baseline, trend CBC. 6. Chronic heart failure with preserved ejection fraction/cardiomyopathy-Echo 04/26/2021 demonstrated an EF of 60%. Continue medical management. On Entresto. 7. Chronic asthma-as needed albuterol aerosol. 8. Type 2 diabetes [id number] with sliding scale insulin. On sitagliptin. 9. CAD-no history of stents. Continue aspirin, statin, carvedilol. 7. History of CVA-continue aspirin, statin. 8. Hypertension-continue carvedilol. Hold Entresto given ARTIE. 9. Hypothyroidism-continue Synthroid regimen. 10. GERD-continue PPI. 11. Depression/anxiety-on duloxetine, venlafaxine, amitriptyline. 12. History of partial colectomy secondary to recurrent diverticulitis/history of C. difficile 13. Obesity-BMI 51. Encouraged diet and lifestyle modifications. DVT prophylaxis-Heparin subcu This patient was seen by DAYTON Neri under the supervision of Dr. Sims. Discharge plan: TCU pending acceptance/pre-cert. Time spent examining patient, reviewing data and subsequent management of care: 13 Minutes Documented by User: Dr. Amy Sims MD 02/14/22 14:01 Objective Data Lab / Micro Data Result Diagrams: 02/14/22 05:16 02/14/22 05:16 Charges/Coding Addendum Addendum: This patient was seen in conjunction with Keith Patricia NP. I have independently interviewed and examined the patient and reviewed pertinent historical, laboratory, and other data. I have reviewed her note and concur with her documentation Patient was seen and examined. She stated that her pain was 7 out of 10. She says that she is much awake. She denied any dizziness or palpitations or chest pain. Physical Exam: Gen: Comfortable, not pale, not jaundiced CVS:HS I +II, regular, no murmurs RESP: Diminished at lung bases GI: BS present and normal, soft, nontender, no palpable organs EXT: Right lower leg in partial cast/crow-wrap ASSESSMENT: 1. Acute metabolic/toxic encephalopathy, resolved 2. Recent right lateral malleolar fracture, status post ORIF 3. ARTIE on CKD stage IIIb 4. Asymptomatic bacteriuria 5. Chronic heart failure preserved EF, EF 60% 6. Anemia of chronic disease 7. Type II DM 8. CAD/CVA/hypertension 9. Hypothyroidism 10. GERD Plan: Repeat blood work in a.m. We will transfuse if hemoglobin is less than 7 Continue to trend renal function Continue current pain regimen with Vicodin 1.5 tablets twice daily, Lyrica, Zanaflex, Cymbalta Time spent coordinating patient's care, discussing with subspecialty and nursin minutes Visit Charges OBSV E&M: 05728 Initial observation care L2
--- NOTE | 2022-02-14 13:40 | CASEMGMT ---
Addendum entered by Bella Bundy 02/14/22 16:12: CECE updated that RN CM updated pt that TCU has accepted pt pending pre-cert. Original Note: Social Work Note SW received message from Tamara with TCU stating they can accept pt and pre-cert has been submitted. SW updated RN ELIE who will update pt. Plan: TCU pending pre-cert Bella Bundy CULINARY ARTIST, QUALITY CONTROL EXPERT
--- NOTE | 2022-02-14 16:05 | CASEMGMT ---
DRE CM in to complete GILLIAM form with patient. RN ELIE explained GILLIAM form to patient, patient voiced understanding. Patient signed GILLIAM form and filed in chart. Patient provided with copy of signed GILLIAM form. Patient had no further questions or concerns at this time.
[2022-02-14 17:25] LABS: Bedside Glucose 146 mg/dL (74-106)
[2022-02-14] MEDS: Venlafaxine HCl 75 MG Tablet 150 MG PO (21:25)
[2022-02-14] MEDS: Atorvastatin Calcium 40 MG Tablet PO (21:25)
[2022-02-14] MEDS: Amitriptyline 25 MG Tablet PO (21:25)
[2022-02-14 21:41] LABS: Bedside Glucose 134 mg/dL (74-106)
[2022-02-15 03:10] VITALS: BP 145/67; PULSE 99; RESP 18; TEMP 36.7; O2SAT 94
[2022-02-15 06:00] LABS: Absolute Lymphocyte Count 1.21 X10^3/uL (0.83-4.51); Absolute Neutrophil Count 2.6 X10^3/uL (2.0-7.7); Basophil# 0.02 X10^3/uL; Basophil% 0.4 % (0-1); Eosinophil# 0.21 X10^3/uL; Eosinophils% 4.6 % (0-5); Hematocrit 24.1 % (37-47); Lymphocyte # 1.21 X10^3/ul (0.83-4.51); Lymphocyte % 26.4 % (19-41); Mean Corp Hgb Conc 33.2 g/dL (32-36); Mean Corpuscular Volume 93.4 fL (81-99); Mean Platelet Vol. 10.5 fl (6.2-12.0); Monocyte# 0.53 X10^3/uL; Monocyte% 11.5 % (0-10); NRBC Flagged by Analyzer 0 % (0-5); Neutrophil % 56.7 % (47-70); Platelet Count 129 K/mm3 (150-450); RBC Distribution Width CV 13.9 % (11.6-14.6); RBC Distribution Width SD 47.8 fl (35.1-43.9); Red Blood Count 2.58 M/mm3 (4.2-5.4); White Blood Count 4.6 K/mm3 (4.4-11.0)
[2022-02-15 06:22] LABS: Anion Gap 5 (5-15); BUN 16 mg/dL (7-18); BUN/Creat Ratio 17.7 RATIO (10-20); Calcium,Total 8.6 mg/dL (8.5-10.1); Chloride 109 mmol/L (98-107); Creatinine, Serum 0.91 mg/dL (0.55-1.02); EST Glomerular Filtration Rate 67 mL/min (>60); Est Glom Filt Rate - Afr Amer 81 mL/min (>60); Estimated Creatinine Clearance 51.35 ml/min; Glucose 100 mg/dL (74-106); Potassium 3.3 mmol/L (3.5-5.1); Sodium Level 139 mmol/L (136-145)
[2022-02-15] MEDS: Dicyclomine 10 MG Capsule 20 MG PO ×2 (06:30→11:46)
[2022-02-15] MEDS: Levothyroxine 100 MCG Tablet PO (06:30)
[2022-02-15 06:36] LABS: Bedside Glucose 131 mg/dL (74-106)
[2022-02-15 07:01] VITALS: PULSE 106; RESP 18
[2022-02-15] MEDS: Budesonide Respules 0.5 MG/2 ML AMPUL.NEB. INHALATION (07:01)
[2022-02-15] MEDS: Albuterol 2.5 MG/3 ML VIAL.NEB. INHALATION (07:01)
[2022-02-15 07:53] VITALS: BP 160/89; PULSE 106; RESP 16; TEMP 37.7; O2SAT 99
[2022-02-15] MEDS: Carvedilol 25 MG Tablet PO (08:08)
[2022-02-15] MEDS: Aspirin E.C. 81 MG Tablet PO (08:08)
--- NOTE | 2022-02-15 08:37 | CASEMGMT ---
Addendum entered by Bella Bundy 02/15/22 11:07: SW in to speak with pt. SW asked pt if she wanted this worker to call any family to update. Pt states that her sister is aware of discharge and so is her friend. Addendum entered by Bella Bundy 02/15/22 09:55: SW placed a call to pt's [facility] ELIE Stack and left message updating her that pt will discharge to TCU today. Addendum entered by Bella Bundy 02/15/22 09:50: SW in to speak with pt. SW updated pt that pre-cert for TCU has been obtained and pt will discharge to TCU today. Pt states understanding. Plan: TCU skilled today Original Note: Social Work Note SW received message from Tamara with TCU stating pt was approved for TCU, can discharge today. Plan: TCU Bella Bundy AUDIT CONTROL CLERK, SHIFT COMMANDER
--- NOTE | 2022-02-15 09:40 | DS.PCM_ITS ---
Documented by User: Renata Rojas NP, LEVEL VIAL INSPECTOR AND TESTER-C 02/15/22 10:26 Providers Date of Admission: 02/13/22 Date of Discharge: 02/15/22 Primary Care Physician: Dr. Brandon Torres DO Reason For Visit: AMS Diagnosis Discharge Diagnosis (1) Confusion: Status: Acute Code(s): R41.0 - Disorientation, unspecified Medications at Discharge Home Medications multivitamin 1 ea PO DAILY 12/29/17 pantoprazole 40 mg PO BID 03/29/19 amitriptyline 25 mg PO QHS 08/10/19 rosuvastatin 20 mg tablet 20 mg PO QHS 08/25/19 sitagliptin 50 mg tablet 50 mg PO DAILY 09/04/19 dicyclomine 20 mg PO TIDAC 10/19/20 duloxetine 60 mg PO BID 10/19/20 valacyclovir 500 mg PO DAILY 10/19/20 aspirin 81 mg PO DAILY@0800 #30 tab 01/17/21 tizanidine 4 mg tablet 4 mg PO Q8H PRN 01/26/21 ascorbate calcium (vitamin C) 500 mg tablet 500 mg PO DAILY 01/27/21 calcium carbonate 600 mg-vitamin D3 12.5 mcg (500 unit) capsule 1 cap PO DAILY 01/27/21 magnesium oxide 400 mg PO DAILY 01/27/21 venlafaxine 150 mg PO QHS 02/04/21 Lactobacillus rhamnosus GG 10 billion cell capsule 1 cap PO DAILY 05/18/21 furosemide 40 mg tablet 20 - 40 mg PO DAILY PRN tablet 05/18/21 pregabalin 100 mg capsule 100 mg PO DAILY 05/18/21 carvedilol 25 mg tablet 25 mg PO BID 08/23/21 Entresto 1 tab PO BID 02/11/22 fluticasone propion-salmeterol [Advair Diskus] 1 inh INHALATION BID 02/11/22 venlafaxine 75 mg PO DAILY 02/11/22 alendronate 70 mg PO TU 02/13/22 cetirizine [Zyrtec] 10 mg PO DAILY 02/13/22 levothyroxine 100 mcg PO DAILY 02/13/22 zinc 50 mg PO DAILY 02/13/22 acetaminophen 1,000 mg PO Q8 #0 tab 02/15/22 cephalexin 500 mg PO Q6 7 Days #28 cap 02/15/22 hydralazine 25 mg PO TID 02/15/22 oxycodone 5 mg PO Q4H PRN PRN #0 tab 02/15/22 Hospital Course Operations None Procedures None Summary of Care Provided Hospital Course: Patient is a 61-year-old female admitted 02/13/22 due to confusion. 1. Transient confusion, likely metabolic/toxic encephalopathy-related to increase in narcotic regimen related to ankle fracture on Sunday, chronic poly pharmacy/sedating regimen, complicated by ARTIE and UTI. Mental status now at baseline. Brain CT unremarkable. PT/OT. Follow-up with PCP in 1 week. 2. Recent right lateral malleolus fracture 02/11/22/status post ORIF prior right ankle fracture-in Ortho-Glass splint. Currently nonweightbearing. Following with Dr. [facility]. PT/OT. [facility]. Continue outpatient follow- up with orthopedic medicine. 3. Acute kidney injury on chronic kidney disease stage IIIb-ARTIE resolved. Trend BMP at snf. Recommend discontinuing as needed Lasix. 4. Acute E. coli UTI-initially patient asymptomatic however later developed low-grade fever and urine culture growing greater than 100,000 colony count E. coli. Initiated on Keflex to complete course. 5. Chronic normocytic anemia-appears at baseline, trend CBC. 6. Chronic heart failure with preserved ejection fraction/cardiomyopathy-Echo 04/26/2021 demonstrated an EF of 60%. Continue medical management. On Entresto. 7. Chronic asthma-as needed albuterol aerosol. 8. Type 2 diabetes mellitus- On sitagliptin. 9. CAD-no history of stents. Continue aspirin, statin, carvedilol. 7. History of CVA-continue aspirin, statin. 8. Hypertension-continue carvedilol, Entresto. 9. Hypothyroidism-continue Synthroid regimen. 10. GERD-continue PPI. 11. Depression/anxiety-on duloxetine, venlafaxine, amitriptyline. 12. History of partial colectomy secondary to recurrent diverticulitis/history of C. difficile 13. Obesity-BMI 51. Encouraged diet and lifestyle modifications. Physical Exam Const alert, oriented x3 and no apparent distress Orientation / Consciousness: awake, oriented to person, oriented to place and oriented to time Nutritional Appearance: obese HEENT normocephalic and moist oral mucous membranes Eyes PERRL, EOMs intact bilaterally and conjunctivae normal Neck no lymphadenopathy Resp normal respiratory effort and clear to auscultation bilaterally Cardio regular rate, regular rhythm and no murmurs Peripheral Pulses: pulses 2+ throughout GI normal to inspection, nondistended, normoactive bowel sounds, non-tender and non-distended Extremity normal to inspection Extremity Narrative: Right ankle in cast Skin no rashes or lesions noted Lesions: no lesions Rashes: no rashes Trauma: no lacerations or abrasions Neuro CN's II-XII intact bilaterally, no focal motor deficits, no sensory deficits noted and deep tendon reflexes 2+ bilaterally Psych mental status grossly normal and affect normal Patient seen and examined prior to discharge. Physical assessment as noted above. Patient is stable for discharge with follow up recommendations as noted above. This patient was seen by DAYTON Neri under the supervision of Dr. Sims. Time spent examining patient, reviewing data and subsequent management of care: 17 Minutes Weight / BMI Weight Weight: 240 lb Body Mass Index (BMI) 43.9 ABG / Lab / Microbiology Data Result Diagrams: 02/15/22 04:36 02/15/22 04:36 Laboratory: Laboratory Results - last 24 hr 02/14/22 11:18: POC Glucose 191 H 02/14/22 17:03: POC Glucose 146 H 02/14/22 21:32: POC Glucose 134 H 02/15/22 04:36: WBC 4.6, RBC 2.58 L, Hgb 8.0 L, Hct 24.1 L, MCV 93.4, MCH 31.0, MCHC 33.2, RDW Std Deviation 47.8 H, RDW Coeff of Lencho 13.9, Plt Count 129 L, MPV 10.5, Immature Gran % (Auto) 0.400, Neut % (Auto) 56.7, Lymph % (Auto) 26.4, [place] % (Auto) 11.5 H, Eos % (Auto) 4.6, Baso % (Auto) 0.4, Absolute Neuts (auto) 2.6, Absolute Lymphs (auto) 1.21, Nucleated RBC % 0 02/15/22 04:36: Sodium 139, Potassium 3.3 L, Chloride 109 H, Carbon Dioxide 2 5.0, Anion Gap 5, BUN 16, Creatinine 0.91, Estim Creat Clear Calc 51.35, Est GFR (MDRD) Af Amer 81, Est GFR (MDRD) Non-Af 67, BUN/Creatinine Ratio 17.7, Glucose 100, Calcium 8.6 02/15/22 06:29: POC Glucose 131 H Microbiology: Microbiology 02/13/22 15:30 Urine Catheter - Catheter Urine Culture - Preliminary Escherichia coli Meaningful Use Info Meaningful Use Diagnoses (Choose all that apply): None applicable Discharge Plan Admission Admit Date/Time: 02/13/22 18:42 Primary Reason for Your Visit: Metabolic encephalopathy Attending Provider: Amy Sims Primary Care Provider: Brandon Torres Discharge Orders/Prescriptions Prescriptions: New acetaminophen 500 mg Tablet 1,000 mg PO Q8 Qty: 0 RF: 0 oxycodone 5 mg Tablet 5 mg PO Q4H PRN PRN (Reason: Pain Score 6-10) Qty: 0 RF: 0 cephalexin 500 mg Capsule 500 mg PO Q6 7 Days Qty: 28 RF: 0 Continued Januvia 50 mg tablet 50 mg PO DAILY RF: 0 rosuvastatin [Crestor] 20 mg tablet 20 mg PO QHS RF: 0 calcium carbonate-vitamin D3 [Calcium 600 with Vitamin D3] 600 mg(1,500mg) - 500 unit capsule 1 cap PO DAILY RF: 0 magnesium oxide 400 mg magnesium capsule 400 mg PO DAILY RF: 0 ascorbate calcium (vitamin C) 500 mg tablet 500 mg PO DAILY RF: 0 tizanidine 4 mg tablet 4 mg PO Q8H PRN (Reason: Muscle Spasm) RF: 0 Culturelle 10 billion cell capsule 1 cap PO DAILY RF: 0 pregabalin 100 mg capsule 100 mg PO DAILY RF: 0 multivitamin 1 EACH tablet 1 ea PO DAILY RF: 0 pantoprazole 40 MG tablet 40 mg PO BID RF: 0 amitriptyline 25 MG tablet 25 mg PO QHS RF: 0 duloxetine 60 MG capsule 60 mg PO BID RF: 0 valacyclovir 500 MG tablet 500 mg PO DAILY RF: 0 dicyclomine 10 MG capsule 20 mg PO TIDAC RF: 0 aspirin 81 MG tablet 81 mg PO DAILY@0800 Qty: 30 RF: 0 venlafaxine 75 MG tablet 150 mg PO QHS RF: 0 venlafaxine 75 mg Tablet 75 mg PO DAILY RF: 0 fluticasone propion-salmeterol [Advair Diskus] 100-50 mcg/dose Blister With Device 1 inh INHALATION BID RF: 0 Entresto 49-51 mg Tablet 1 tab PO BID RF: 0 cetirizine [Zyrtec] 10 mg Tablet 10 mg PO DAILY RF: 0 zinc 50 mg Tablet 50 mg PO DAILY RF: 0 alendronate 70 MG tablet 70 mg PO TU RF: 0 levothyroxine 100 mcg tablet 100 mcg PO DAILY RF: 0 hydralazine 25 mg Tablet 25 mg PO TID RF: 0 carvedilol [Coreg] 25 mg tablet 25 mg PO BID RF: 0 Held furosemide 40 mg tablet 20 - 40 mg PO DAILY PRN (Reason: diuretic) RF: 0 Hold Instructions: Resume on 03/01/22. Discontinued hydrocodone-acetaminophen 1 TABLET tablet 7.5 tab PO BID PRN (Reason: Pain) RF: 0 Referrals / Follow Up: Derick Viramontes MD [NON-STAFF] - See Referral Note (As scheduled next week) Brandon Torres DO [Primary Care Provider] - In 1 Week Disposition Disposition (needs filled in before D/C Order can be placed): Shelter Facility Documented by User: Dr. Amy Sims MD 02/15/22 12:52 Providers Date of Admission: 02/13/22 Reason For Visit: AMS Medications at Discharge Home Medications multivitamin 1 ea PO DAILY 12/29/17 pantoprazole 40 mg PO BID 03/29/19 amitriptyline 25 mg PO QHS 08/10/19 rosuvastatin 20 mg tablet 20 mg PO QHS 08/25/19 sitagliptin 50 mg tablet 50 mg PO DAILY 09/04/19 dicyclomine 20 mg PO TIDAC 10/19/20 duloxetine 60 mg PO BID 10/19/20 valacyclovir 500 mg PO DAILY 10/19/20 aspirin 81 mg PO DAILY@0800 #30 tab 01/17/21 tizanidine 4 mg tablet 4 mg PO Q8H PRN 01/26/21 ascorbate calcium (vitamin C) 500 mg tablet 500 mg PO DAILY 01/27/21 calcium carbonate 600 mg-vitamin D3 12.5 mcg (500 unit) capsule 1 cap PO DAILY 01/27/21 magnesium oxide 400 mg PO DAILY 01/27/21 venlafaxine 150 mg PO QHS 02/04/21 Lactobacillus rhamnosus GG 10 billion cell capsule 1 cap PO DAILY 05/18/21 furosemide 40 mg tablet 20 - 40 mg PO DAILY PRN tablet 05/18/21 pregabalin 100 mg capsule 100 mg PO DAILY 05/18/21 carvedilol 25 mg tablet 25 mg PO BID 08/23/21 Entresto 1 tab PO BID 02/11/22 fluticasone propion-salmeterol [Advair Diskus] 1 inh INHALATION BID 02/11/22 venlafaxine 75 mg PO DAILY 02/11/22 alendronate 70 mg PO TU 02/13/22 cetirizine [Zyrtec] 10 mg PO DAILY 02/13/22 levothyroxine 100 mcg PO DAILY 02/13/22 zinc 50 mg PO DAILY 02/13/22 acetaminophen 1,000 mg PO Q8 #0 tab 02/15/22 cephalexin 500 mg PO Q6 7 Days #28 cap 02/15/22 hydralazine 25 mg PO TID 02/15/22 oxycodone 5 mg PO Q4H PRN PRN #0 tab 02/15/22 ABG / Lab / Microbiology Data Result Diagrams: 02/15/22 04:36 02/15/22 04:36 Discharge Plan Admission Admit Date/Time: 02/13/22 18:42 Primary Reason for Your Visit: Metabolic encephalopathy Attending Provider: Amy Sims Primary Care Provider: Brandon Torres Discharge Orders/Prescriptions Prescriptions: New acetaminophen 500 mg Tablet 1,000 mg PO Q8 Qty: 0 RF: 0 oxycodone 5 mg Tablet 5 mg PO Q4H PRN PRN (Reason: Pain Score 6-10) Qty: 0 RF: 0 cephalexin 500 mg Capsule 500 mg PO Q6 7 Days Qty: 28 RF: 0 Continued Januvia 50 mg tablet 50 mg PO DAILY RF: 0 rosuvastatin [Crestor] 20 mg tablet 20 mg PO QHS RF: 0 calcium carbonate-vitamin D3 [Calcium 600 with Vitamin D3] 600 mg(1,500mg) - 500 unit capsule 1 cap PO DAILY RF: 0 magnesium oxide 400 mg magnesium capsule 400 mg PO DAILY RF: 0 ascorbate calcium (vitamin C) 500 mg tablet 500 mg PO DAILY RF: 0 tizanidine 4 mg tablet 4 mg PO Q8H PRN (Reason: Muscle Spasm) RF: 0 Culturelle 10 billion cell capsule 1 cap PO DAILY RF: 0 pregabalin 100 mg capsule 100 mg PO DAILY RF: 0 multivitamin 1 EACH tablet 1 ea PO DAILY RF: 0 pantoprazole 40 MG tablet 40 mg PO BID RF: 0 amitriptyline 25 MG tablet 25 mg PO QHS RF: 0 duloxetine 60 MG capsule 60 mg PO BID RF: 0 valacyclovir 500 MG tablet 500 mg PO DAILY RF: 0 dicyclomine 10 MG capsule 20 mg PO TIDAC RF: 0 aspirin 81 MG tablet 81 mg PO DAILY@0800 Qty: 30 RF: 0 venlafaxine 75 MG tablet 150 mg PO QHS RF: 0 venlafaxine 75 mg Tablet 75 mg PO DAILY RF: 0 fluticasone propion-salmeterol [Advair Diskus] 100-50 mcg/dose Blister With De vice 1 inh INHALATION BID RF: 0 Entresto 49-51 mg Tablet 1 tab PO BID RF: 0 cetirizine [Zyrtec] 10 mg Tablet 10 mg PO DAILY RF: 0 zinc 50 mg Tablet 50 mg PO DAILY RF: 0 alendronate 70 MG tablet 70 mg PO TU RF: 0 levothyroxine 100 mcg tablet 100 mcg PO DAILY RF: 0 hydralazine 25 mg Tablet 25 mg PO TID RF: 0 carvedilol [Coreg] 25 mg tablet 25 mg PO BID RF: 0 Held furosemide 40 mg tablet 20 - 40 mg PO DAILY PRN (Reason: diuretic) RF: 0 Hold Instructions: Resume on 03/01/22. Discontinued hydrocodone-acetaminophen 1 TABLET tablet 7.5 tab PO BID PRN (Reason: Pain) RF: 0 Referrals / Follow Up: Derick Viramontes MD [NON-STAFF] - See Referral Note (As scheduled next week) Brandon Torres DO [Primary Care Provider] - In 1 Week Disposition Disposition (needs filled in before D/C Order can be placed): Shelter Facility Charges/Coding Addendum Addendum: This patient was seen in conjunction with Renata Bob, LEVEL VIAL INSPECTOR AND TESTER. I have independently interviewed and examined the patient and reviewed pertinent historical, laboratory, and other data. I have reviewed her note and concur with her documentation 61-year-old female who comes in with confusion and lethargy. Patient has multiple comorbidities including type II DM, CKD stage III, CVA, hypertension, hypothyroidism. Patient had a recent fall prior to admission and sustained mild ly displaced lateral malleolar fracture. Patient was taking more narcotic medication than her baseline. She stated that she takes narcotics for neuropathy, and has been doing that for about 1 to 2 years. She was found to have acute kidney injury on CKD stage III in the ED. Her Lasix Entresto were held. She was admitted to the MedSur floor, patient was more awake and alert. She admitted to feeling confused. She admitted to taking more of her medications. Her ARTIE was resolved at the time of discharge. She has outpatient follow-up with podiatry in the [facility]. She was seen by PT and OT and skilled for discharge to care home facility. Physical Exam: Gen: Comfortable, not pale, not jaundiced, morbidly obese CVS:HS I +II, regular, no murmurs RESP: Diminished at lung bases GI: BS present and normal, soft, nontender, no palpable organs EXT: Right lower leg in partial cast/crow-wrap Time spent coordinating patient's care, discussing with nursin minutes Visit Charges OBSV E&M: 90619 Observation care discharge
--- NOTE | 2022-02-15 09:54 | TREXTCAR_ITS ---
Diet 02/13/22 18:53 Diet: Consistent Carb - Calorie Controlled Food consistency:: Regular Liquid Consistency:: Regular/Thin Is pt able to select menu?: Yes How many daily calories?: 1500 calorie Routine Orders/Code Status Enema Type: Fleetz Enema Frequency: Daily PRN Suppository Type: Dulcolax 10mg Suppository Frequency: Daily PRN O2 Liters per Minute: 2 O2 Frequency: PRN Keep PO Greater than or Equal to (%): 90 Routine Lab Work: - (Weekly CBC, BMP) Suggestions for Active Care Change Position every (hours): 2 Times a day to sit in chair: 3 Therapies Weight Bearing: Non weight bearing Extremity Affected:: Right Lower Physical Therapy: Eval and Treat Occupational Therapy: Eval and Treat Problem/Diagnosis (1) Confusion: Status: Acute Allergies/Procedures Done in Hospital Allergies adhesive Allergy (Verified 02/13/22 13:32) skin irritation amlodipine [From Norvasc] Allergy (Verified 02/13/22 13:32) tachycardia hydromorphone HCl [From Dilaudid] Allergy (Verified 02/13/22 13:32) Itching sulfamethoxazole [From Bactrim] Allergy (Verified 02/13/22 13:32) made my cold sore huge trimethoprim [From Bactrim] Allergy (Verified 02/13/22 13:32) made my cold sore huge Procedures: None Type of Care/Length of Stay Estimated LOS: Convalescent Care Less Than 30 days Type of Care Needed: Skilled Rehab Potential: Fair Prognosis: Fair Additional Orders/Day of Discharge H&P will serve as current which was dated: 02/13/22 Day of Discharge: 02/15/22 Discharge Plan Admission Admit Date/Time: 02/13/22 18:42 Primary Reason for Your Visit: Metabolic encephalopathy Attending Provider: Amy Sims Primary Care Provider: Brandon Torres Discharge Orders/Prescriptions Prescriptions: New acetaminophen 500 mg Tablet 1,000 mg PO Q8 Qty: 0 RF: 0 oxycodone 5 mg Tablet 5 mg PO Q4H PRN PRN (Reason: Pain Score 6-10) Qty: 0 RF: 0 cephalexin 500 mg Capsule 500 mg PO Q6 7 Days Qty: 28 RF: 0 Continued Januvia 50 mg tablet 50 mg PO DAILY RF: 0 rosuvastatin [Crestor] 20 mg tablet 20 mg PO QHS RF: 0 calcium carbonate-vitamin D3 [Calcium 600 with Vitamin D3] 600 mg(1,500mg) - 500 unit capsule 1 cap PO DAILY RF: 0 magnesium oxide 400 mg magnesium capsule 400 mg PO DAILY RF: 0 ascorbate calcium (vitamin C) 500 mg tablet 500 mg PO DAILY RF: 0 tizanidine 4 mg tablet 4 mg PO Q8H PRN (Reason: Muscle Spasm) RF: 0 Culturelle 10 billion cell capsule 1 cap PO DAILY RF: 0 pregabalin 100 mg capsule 100 mg PO DAILY RF: 0 multivitamin 1 EACH tablet 1 ea PO DAILY RF: 0 pantoprazole 40 MG tablet 40 mg PO BID RF: 0 amitriptyline 25 MG tablet 25 mg PO QHS RF: 0 duloxetine 60 MG capsule 60 mg PO BID RF: 0 valacyclovir 500 MG tablet 500 mg PO DAILY RF: 0 dicyclomine 10 MG capsule 20 mg PO TIDAC RF: 0 aspirin 81 MG tablet 81 mg PO DAILY@0800 Qty: 30 RF: 0 venlafaxine 75 MG tablet 150 mg PO QHS RF: 0 venlafaxine 75 mg Tablet 75 mg PO DAILY RF: 0 fluticasone propion-salmeterol [Advair Diskus] 100-50 mcg/dose Blister With Device 1 inh INHALATION BID RF: 0 Entresto 49-51 mg Tablet 1 tab PO BID RF: 0 cetirizine [Zyrtec] 10 mg Tablet 10 mg PO DAILY RF: 0 zinc 50 mg Tablet 50 mg PO DAILY RF: 0 alendronate 70 MG tablet 70 mg PO TU RF: 0 levothyroxine 100 mcg tablet 100 mcg PO DAILY RF: 0 hydralazine 25 mg Tablet 25 mg PO TID RF: 0 carvedilol [Coreg] 25 mg tablet 25 mg PO BID RF: 0 Held furosemide 40 mg tablet 20 - 40 mg PO DAILY PRN (Reason: diuretic) RF: 0 Hold Instructions: Resume on 03/01/22. Discontinued hydrocodone-acetaminophen 1 TABLET tablet 7.5 tab PO BID PRN (Reason: Pain) RF: 0 Referrals / Follow Up: Derick Viramontes MD [NON-STAFF] - See Referral Note (As scheduled next week) Brandon Torres DO [Primary Care Provider] - In 1 Week Disposition Disposition (needs filled in before D/C Order can be placed): Intermediate Facility
[2022-02-15 10:02] VITALS: RESP 16; O2SAT 99
[2022-02-15 10:14] VITALS: PULSE 106
[2022-02-15] MEDS: DULoxetine Hcl 60 MG Capsule PO (10:14)
[2022-02-15] MEDS: Venlafaxine HCl 75 MG Tablet PO (10:14)
[2022-02-15] MEDS: Pantoprazole Sodium 40 MG Tablet PO (10:14)
[2022-02-15] MEDS: hydrALAZINE 25 MG Tablet PO (10:14)
[2022-02-15] MEDS: Acyclovir 200 MG Capsule 400 MG PO (10:14)
[2022-02-15] MEDS: Loratadine 10 MG Tablet PO (10:14)
[2022-02-15] MEDS: Heparin Injection (Vial) 5,000 UNIT/ML VIAL 5000 UNIT SC (10:15)
[2022-02-15] MEDS: Pregabalin 50 MG Capsule 100 MG PO (10:15)
[2022-02-15] MEDS: tiZANidine HCl 2 MG Tablet 4 MG PO (10:15)
[2022-02-15] MEDS: Potassium Chloride Oral Tablet 20 MEQ 40 MEQ PO (10:25)
[2022-02-15] MEDS: Insulin Lispro 100 UNIT/ML INSULN.PEN SC (11:45)
[2022-02-15 11:51] LABS: Bedside Glucose 216 mg/dL (74-106)
[2022-02-15] MEDS: Cephalexin 500 MG Capsule PO (12:43)
[2022-02-15 13:15] VITALS: BP 115/81; PULSE 98; RESP 22; TEMP 37.2; O2SAT 96
== END 2022-02-15 13:32 | disposition skilled nursing facility (03) ==
LOC: ED 17:31 → MS3 17:47
PROVIDERS: Nurse Practitioner Family; Admitting Provider Family Medicine; Emergency Provider Emergency Medicine; PCP Student in an Organized Health Care Education/Training Program; Visit Provider Internal Medicine
DX: R41.0 Disorientation, unspecified (principal); E11.51 Type 2 diabetes mellitus with diabetic peripheral angiopathy without gangrene; N17.9 Acute kidney failure, unspecified; I13.0 Hypertensive heart and chronic kidney disease with heart failure and stage 1 through stage 4 chronic kidney disease, or unspecified chronic kidney disease; I42.8 Other cardiomyopathies; I50.42 Chronic combined systolic (congestive) and diastolic (congestive) heart failure; E11.22 Type 2 diabetes mellitus with diabetic chronic kidney disease; E11.40 Type 2 diabetes mellitus with diabetic neuropathy, unspecified; Z68.43 Body mass index [BMI] 50.0-59.9, adult; N18.32 Chronic kidney disease, stage 3b; F41.9 Anxiety disorder, unspecified; I25.10 Atherosclerotic heart disease of native coronary artery without angina pectoris; E78.5 Hyperlipidemia, unspecified; Z87.891 Personal history of nicotine dependence; N39.0 Urinary tract infection, site not specified; R53.81 Other malaise; S82.61XD Displaced fracture of lateral malleolus of right fibula, subsequent encounter for closed fracture with routine healing; B96.20 Unspecified Escherichia coli [E. coli] as the cause of diseases classified elsewhere; Z79.84 Long term (current) use of oral hypoglycemic drugs; Z79.83 Long term (current) use of bisphosphonates; Z79.82 Long term (current) use of aspirin; K21.9 Gastro-esophageal reflux disease without esophagitis; E66.9 Obesity, unspecified; D63.8 Anemia in other chronic diseases classified elsewhere; E03.9 Hypothyroidism, unspecified; F32.A Depression, unspecified; Z79.899 Other long term (current) drug therapy; Z79.890 Hormone replacement therapy; J45.909 Unspecified asthma, uncomplicated; X58.XXXD Exposure to other specified factors, subsequent encounter
CPT/HCPCS: 36415; 70450; 71045; 80048; 80053; 81001; 82962; 84484; 85025; 87077; 87086; 87088; 87186; 87426; 93005; 94640; 96361; 96365; 96372; 97110; 97162; 97166; 97530; 97535; 99218; 99285; J7030; J7040; A4216; G0378

== ENCOUNTER 2022-02-15 13:39 | Inpatient (IN) | payer MEDICARE, MEDICAID, SELFPAY ==
[2022-02-15 13:44] VITALS: BP 132/58; PULSE 95; RESP 16; TEMP 36.3; O2SAT 96; BMI 43.9
[2022-02-15] MEDS: Acyclovir 200 MG Capsule 400 MG PO (16:48)
[2022-02-15] MEDS: Dicyclomine 10 MG Capsule 20 MG PO (16:48)
[2022-02-15] MEDS: Cephalexin 500 MG Capsule PO ×2 (16:48→23:37)
[2022-02-15] MEDS: Carvedilol 25 MG Tablet PO (16:48)
[2022-02-15] MEDS: DULoxetine Hcl 60 MG Capsule PO (16:48)
[2022-02-15] MEDS: SACUBITRIL/VALSARTAN 49-51 MG TABLET 1 EACH PO (16:49)
[2022-02-15] MEDS: Pantoprazole Sodium 40 MG Tablet PO (16:49)
[2022-02-15] MEDS: oxyCODONE 5 MG Tablet PO (16:51)
[2022-02-15] MEDS: Fluticasone/Salmeterol 232-14 Inhaler 1 PUFF INHALATION (16:52)
--- NOTE | 2022-02-15 19:34 | HP.PCM_ITS ---
HPI - General General Date of Admission: 02/15/22 HPI Narrative 02/13/2022 BILL CHOI, is a 61 Female who presents to [facility] with change in mental status. 02/13/2022 EKG normal sinus rhythm, normal EKG. Confusion worse today, right ankle fracture on pain medications. Family concerned patient took too many pain medications. Mild headache, productive cough of yellow sputum. Hemoglobin 7.9, Creatinine 2.17, BUn 39. Urinalysis consistent with urinary tract infection, urine culture sent, Rocephin given. CT brain negative. Unable to care for self at home. 02/13/2022 Admit to Hospital. Non weight bearing right lower extremity, Dr. Viramontes [facility], for right ankle fracture. Hold antibiotics for asymptomatic bacteriuria. Encephalopathy resolved. Gentle IV fluids for acute kidney injury. 02/14/2022 Acute kidney injury improved, stop IV fluids. 02/15/2022 Encephalopathy secondary to narcotic pain medications, acute kidney injury, urinary tract infection. Urine culture growing > 100,000 E. Coli, patient has fever, treat urinary tract infection with full course of Keflex. 02/15/2022 Admit to TCU with debility, here for rehabilitation, strengthening, prior to discharge home alone. [facility] Medical History ACTH deficiency Acute respiratory failure with hypoxia Allergic rhinitis Anemia Asthma Asthma exacerbation Atherosclerosis of coronary artery without angina pectoris Bilateral leg weakness Bone fracture Cardiomyopathy Carotid artery stenosis Carpal tunnel syndrome Chronic constipation with suspected IBS Chronic headaches Chronic systolic (congestive) heart failure CKD (chronic kidney disease) stage 3, GFR 30-59 ml/min Debility Essential hypertension Falls Flash pulmonary edema (01/16/21) Gait difficulty Gallstones GERD (gastroesophageal reflux disease) GI problem Herpes simplex History of Clostridium difficile infection History of CVA (cerebrovascular accident) (2018) History of depression History of emotional problems History of ischemic colitis Hx of diverticulitis of colon Hyperlipidemia Hypertension Hypotension Hypothyroidism Irritable bowel syndrome Kidney disease Neuropathy Non-ischemic cardiomyopathy Normochromic normocytic anemia Obesity Osteoarthritis Osteopenia Osteoporosis Peripheral vascular disease Pulmonary edema Right hemiparesis Seasonal allergies Secondary adrenal insufficiency Stomach ulcer Stroke/cerebrovascular accident Trigeminal trophic syndrome Type 2 diabetes mellitus Home Medications multivitamin 1 ea PO DAILY 12/29/17 [History Last Taken 02/12/22] pantoprazole 40 mg PO BID 03/29/19 [History Last Taken 02/12/22] amitriptyline 25 mg PO QHS 08/10/19 [History Last Taken 02/12/22] rosuvastatin 20 mg tablet 20 mg PO QHS 08/25/19 [History Last Taken 02/12/22] sitagliptin 50 mg tablet 50 mg PO DAILY 09/04/19 [History Last Taken 02/12/22] dicyclomine 20 mg PO TIDAC 10/19/20 [History Last Taken 02/12/22] duloxetine 60 mg PO BID 10/19/20 [History Last Taken 02/12/22] valacyclovir 500 mg PO DAILY 10/19/20 [History Last Taken 02/12/22] tizanidine 4 mg tablet 4 mg PO Q8H PRN 01/26/21 [History Last Taken 02/12/22] ascorbate calcium (vitamin C) 500 mg tablet 500 mg PO DAILY 01/27/21 [History Last Taken 02/12/22] calcium carbonate 600 mg-vitamin D3 12.5 mcg (500 unit) capsule 1 cap PO DAILY 01/27/21 [History Last Taken 02/12/22] magnesium oxide 400 mg PO DAILY 01/27/21 [History Last Taken 02/12/22] venlafaxine 150 mg PO QHS 02/04/21 [History Last Taken 02/12/22] Lactobacillus rhamnosus GG 10 billion cell capsule 1 cap PO DAILY 05/18/21 [History Last Taken 02/12/22] furosemide 40 mg tablet 20 - 40 mg PO DAILY PRN tablet 05/18/21 [History Last Taken Unknown] pregabalin 100 mg capsule 100 mg PO DAILY 05/18/21 [History Last Taken 02/12/22] carvedilol 25 mg tablet 25 mg PO BID 08/23/21 [History Last Taken 02/12/22] Entresto 1 tab PO BID 02/11/22 [History Last Taken 02/12/22] fluticasone propion-salmeterol [Advair Diskus] 1 inh INHALATION BID 02/11/22 [History Last Taken 02/12/22] venlafaxine 75 mg PO DAILY 02/11/22 [History Last Taken 02/12/22] alendronate 70 mg PO TU 02/13/22 [History Last Taken 02/07/22] cetirizine [Zyrtec] 10 mg PO DAILY 02/13/22 [History Last Taken 02/12/22] levothyroxine 100 mcg PO DAILY 02/13/22 [History Last Taken 02/12/22] zinc 50 mg PO DAILY 02/13/22 [History Last Taken 02/12/22] acetaminophen 1,000 mg PO Q8 02/15/22 [History Last Taken Unknown] aspirin 81 mg PO DAILY@0800 02/15/22 [History Last Taken Unknown] cephalexin 500 mg PO Q6 02/15/22 [History Last Taken Unknown] hydralazine 25 mg PO TID 02/15/22 [History Last Taken Unknown] oxycodone 5 mg PO Q4H PRN PRN #0 tab 02/15/22 [Rx Last Taken Unknown] Allergy/AdvReac Type Severity Reaction Status Date / Time adhesive Allergy skin Verified 02/13/22 13:32 irritation amlodipine [From Norvasc] Allergy tachycardia Verified 02/13/22 13:32 hydromorphone HCl Allergy Itching Verified 02/13/22 13:32 [From Dilaudid] sulfamethoxazole Allergy made my Verified 02/13/22 13:32 [From Bactrim] cold sore huge trimethoprim [From Bactrim] Allergy made my Verified 02/13/22 13:32 cold sore huge Family History Grandfather Alcoholism Grandmother Myocardial infarction Mother Arthritis Diverticulitis COPD (chronic obstructive pulmonary disease) Afib Thyroid disorder Father Arthritis Diabetes Myocardial infarction Heart disease Ischemic Hypertension Hyperlipidemia Brother Arthritis Aunt Breast cancer Sister Arthritis Thyroid disorder Skin cancer Uncle Diabetes Surgical History Ankle fracture Fracture of left femur History of angioplasty of peripheral vessel (2010) History of arthroscopic knee surgery History of back surgery History of bilateral knee replacement History of carpal tunnel release History of cholecystectomy History of intestine removal History of left heart catheterization (2011) History of tonsillectomy and adenoidectomy History of trigger finger History of ventral hernia repair Strangulated ventral hernia Social History (Updated 02/15/22 @ 19:[address] Wei Barry MD) household members: none Smoking Status: Former smoker how long ago did patient quit smokin alcohol intake: never substance use type: does not use what type of physical activity do you participate in: other ROS Constitutional Constitutional: Denies chills, fever(s) or weight gain ENT HEENT: Denies headache(s), nasal congestion or nasal discharge Cardiovascular Cardiovascular: Denies chest pain or palpitations Respiratory/Chest Respiratory/Chest: Denies cough, excessive phlegm production or shortness of breath with exertion Gastrointestinal Gastrointestinal: Denies abdominal pain, nausea or vomiting Genitourinary Genitourinary: Denies dysuria Musculoskeletal Musculoskeletal: Denies joint pain or joint swelling Integumentary Integumentary: Denies rash or wounds Neurologic Neurologic: Denies focal weakness, numbness or tingling Psychiatric Psychiatric: Denies anxiety, auditory hallucinations, depression, homicidal ideation or suicidal ideation Vital Signs Vital Signs Vital Signs: 02/15/22 13:44 Temperature 97.3 F L Temperature Source Temporal Pulse Rate 95 Pulse Rhythm Regular Pulse Strength Normal (2+) Respiratory Rate 16 Respiratory Effort Normal Non-Labored Respiratory Depth Normal Respiratory Pattern Normal Blood Pressure 132/58 H Blood Pressure Mean 82 Blood Pressure Source Monitor Blood Pressure Position Semi-Fowlers Blood Pressure Location Left Arm Pulse Ox 96 Oxygen Delivery Method Room Air Weight Weight: 108.862 kg Body Mass Index (BMI) 43.9 Physical Exam Const alert General Appearance: cooperative HEENT normocephalic Eyes PERRL and EOMs intact bilaterally Neck supple, no JVD and no carotid bruits Resp normal respiratory effort, normal air movement and clear to auscultation bilaterally Cardio regular rate and regular rhythm GI normal to inspection, nondistended, normoactive bowel sounds, non-tender and non-distended Extremity normal capillary refill Extremity Narrative: Right lower extremity splint, PAMELA wrap. General Extremity: Negative for edema Skin no rashes or lesions noted General Skin Exam: no breakdown Psych affect normal Appearance: appropriate Assessment & Plan Assessment/Plan (1) Debility: (2) Encephalopathy: (3) Urinary tract infection: (4) Acute kidney injury: (5) Closed right ankle fracture: (6) Acute anemia: (7) Hypothyroidism: (8) Gastroesophageal reflux disease: (9) Chronic headaches: (10) Hyperlipidemia: (11) Diabetes mellitus: (12) Irritable bowel syndrome: (13) Depression: (14) History of stroke: (15) Herpes simplex: (16) Muscle spasm: (17) Hypomagnesemia: (18) Chronic systolic congestive heart failure: (19) Diabetic polyneuropathy: (20) Osteoporosis: (21) Allergic rhinitis: PLAN: 61 year old female with below past medical history significant for recent right ankle fracture, hospitalized for acute delirium secondary to narcotic pain medications, urinary tract infection, acute kidney injury, dehydration, admitted to TCU with debility, here for rehabilitation, strengthening, prior to discharge home alone. * Debility - PT/OT. * Pain - Tylenol 1000mg q8h, Oxycodone 5mg q6h prn pain (6-10). * Bowel - Miralax 17gm daily, senna/colace 1 tablet bid, Dulcolax 10mg pr daily prn. * Adult immunization - Administer pneumonia vaccine, flu vaccine, covid19 vaccine as appropriate. * DVT prophylaxis - HAS-BLED score 2 intermediate risk of bleeding, Sherrie score 7 high risk of venous thromboembolism, overall risk high, Rx Xarelto 10mg daily x 10 days. * Herpes simplex - Acyclovir 400mg bid. * Osteoporosis - Alendronate 70mg per week, * Chronic headaches - Elavil 25mg qhs. * Vitamin C deficiency - Vitamin C 500mg daily. * History of stroke - Aspirin 81mg daily. * Hyperlipidemia - Atorvastatin 40mg qhs. * Calcium deficiency - Calcium 1 tablet bid. * Chronic systolic congestive heart failure - Coreg 25mg bid, Entresto 49/51mg bid, Hydralazine 25mg tid. * E. Coli urinary tract infection - Keflex 500mg q6h thru 02/22/2022. * Irritable bowel syndrome - Bentyl 20mg tidac. * Depression - Duloxetine 60mg bid, Effexor 75mg AM, 150mg qhs, stable chronic fpc use, GDR not recommended. * COPD - Advair 1 puff Q12H. * GI prophylaxis - Lactobacillus 1 tablet daily. * Hypothyroidism - Levothyroxine 100mcg daily. * Diabetes Mellitus II - Tradjenta 5mg daily. * Allergic rhinitis - Loratadine 10mg daily. * Hypomagnesemia - Magnesium 128mg daily. * Nutrition - MVI daily. * GERD - Pantoprazole 40mg bid. * Diabetic polyneuropathy - Lyrica 100mg daily. * Muscle spasm - Tizanidine 4mg q8h prn. * Zinc deficiency - Zinc 220mg daily.
[2022-02-15 20:35] VITALS: PULSE 68
[2022-02-15] MEDS: hydrALAZINE 25 MG Tablet PO (20:35)
[2022-02-15] MEDS: Atorvastatin Calcium 40 MG Tablet PO (20:37)
[2022-02-15] MEDS: Venlafaxine HCl 75 MG Tablet 150 MG PO (20:37)
[2022-02-15] MEDS: Amitriptyline 25 MG Tablet PO (20:38)
[2022-02-15] MEDS: Acetaminophen 500 MG Tablet 1000 MG PO (20:39)
[2022-02-15] MEDS: tiZANidine HCl 2 MG Tablet 4 MG PO (23:14)
[2022-02-16] MEDS: Carvedilol 25 MG Tablet PO ×2 (05:38→17:17)
[2022-02-16] MEDS: Loratadine 10 MG Tablet PO (05:38)
[2022-02-16 05:39] VITALS: BP 138/75; PULSE 87
[2022-02-16] MEDS: hydrALAZINE 25 MG Tablet PO ×3 (05:39→20:45)
[2022-02-16] MEDS: SACUBITRIL/VALSARTAN 49-51 MG TABLET 1 EACH PO ×2 (05:39→17:21)
[2022-02-16] MEDS: Levothyroxine 100 MCG Tablet PO (05:39)
[2022-02-16] MEDS: Magnesium Chloride 64 MG Delay Rel.Tablet 128 MG PO (05:39)
[2022-02-16] MEDS: Venlafaxine HCl 75 MG Tablet PO (05:39)
[2022-02-16] MEDS: Pantoprazole Sodium 40 MG Tablet PO ×2 (05:39→17:24)
[2022-02-16] MEDS: Acyclovir 200 MG Capsule 400 MG PO ×2 (05:40→17:25)
[2022-02-16] MEDS: DULoxetine Hcl 60 MG Capsule PO ×2 (05:40→17:18)
[2022-02-16] MEDS: Pregabalin 50 MG Capsule 100 MG PO (05:40)
[2022-02-16] MEDS: Ascorbic Acid 500 MG Tablet PO (05:40)
[2022-02-16] MEDS: Cephalexin 500 MG Capsule PO (05:40)
[2022-02-16] MEDS: Acetaminophen 500 MG Tablet 1000 MG PO ×3 (05:41→20:44)
[2022-02-16] MEDS: LINAGLIPTIN 5 MG TABLET PO (05:42)
[2022-02-16 05:43] LABS: Absolute Lymphocyte Count 1.15 X10^3/uL (0.83-4.51); Absolute Neutrophil Count 2.9 X10^3/uL (2.0-7.7); Basophil# 0.02 X10^3/uL; Basophil% 0.4 % (0-1); Eosinophil# 0.16 X10^3/uL; Eosinophils% 3.3 % (0-5); Hematocrit 27.6 % (37-47); Hemoglobin 8.9 g/dL (12.0-15.0); Lymphocyte # 1.15 X10^3/ul (0.83-4.51); Lymphocyte % 23.9 % (19-41); Mean Corp Hgb Conc 32.2 g/dL (32-36); Mean Corpuscular Hgb 30.5 pg (27.0-32.0); Mean Corpuscular Volume 94.5 fL (81-99); Mean Platelet Vol. 10.3 fl (6.2-12.0); Monocyte# 0.53 X10^3/uL; NRBC Flagged by Analyzer 0 % (0-5); Neutrophil % 60.2 % (47-70); Platelet Count 137 K/mm3 (150-450); RBC Distribution Width CV 13.5 % (11.6-14.6); RBC Distribution Width SD 47.1 fl (35.1-43.9); Red Blood Count 2.92 M/mm3 (4.2-5.4); White Blood Count 4.8 K/mm3 (4.4-11.0)
[2022-02-16] MEDS: Dicyclomine 10 MG Capsule 20 MG PO ×3 (05:43→17:15)
[2022-02-16] MEDS: Fluticasone/Salmeterol 232-14 Inhaler 1 PUFF INHALATION ×2 (05:47→17:22)
[2022-02-16 05:48] VITALS: BP 138/75; PULSE 87; RESP 16; TEMP 36.7; O2SAT 95
[2022-02-16 06:04] LABS: Anion Gap 4 (5-15); BUN 11 mg/dL (7-18); BUN/Creat Ratio 14.2 RATIO (10-20); Calcium,Total 9.1 mg/dL (8.5-10.1); Chloride 108 mmol/L (98-107); Creatinine, Serum 0.78 mg/dL (0.55-1.02); EST Glomerular Filtration Rate 80 mL/min (>60); Est Glom Filt Rate - Afr Amer 97 mL/min (>60); Glucose 122 mg/dL (74-106); Potassium 3.8 mmol/L (3.5-5.1); Sodium Level 137 mmol/L (136-145)
[2022-02-16 07:00] LABS: Bedside Glucose 126 mg/dL (74-106)
[2022-02-16] MEDS: Multivitamins,Therapeutic Tablet 1 TABLET PO (08:32)
[2022-02-16] MEDS: Aspirin E.C. 81 MG Tablet PO (08:32)
[2022-02-16] MEDS: Calcium Carb/Vitamin D 1 TABLET Tablet PO (08:32)
[2022-02-16] MEDS: oxyCODONE 5 MG Tablet PO ×2 (08:40→17:11)
--- NOTE | 2022-02-16 09:15 | PHA.CONS1_ITS ---
Progress Note - Pharmacy Subjective: [facility] ADMISSION Objective: Allergies adhesive Allergy (Verified 02/13/22 13:32) skin irritation amlodipine [From Norvasc] Allergy (Verified 02/13/22 13:32) tachycardia hydromorphone HCl [From Dilaudid] Allergy (Verified 02/13/22 13:32) Itching sulfamethoxazole [From Bactrim] Allergy (Verified 02/13/22 13:32) made my cold sore huge trimethoprim [From Bactrim] Allergy (Verified 02/13/22 13:32) made my cold sore huge Current Medications Generic Name Dose Route Start Last Admin Trade Name Freq PRN Reason Stop Dose Admin Acetaminophen 1,000 mg 02/15/22 22:00 02/16/22 05:41 Acetaminophen 500 Mg Tablet PO 1,000 mg Q8 [facility] Administration Acyclovir 400 mg 02/15/22 18:00 02/16/22 05:40 Acyclovir 200 Mg Capsule PO 400 mg BID [facility] Administration Alendronate Sodium 70 mg 02/21/22 07:00 Alendronate Sodium 70 Mg Tablet PO TU [facility] Amitriptyline HCl 25 mg 02/15/22 22:00 02/15/22 20:38 Amitriptyline 25 Mg Tablet PO 25 mg QHS [facility] Administration Ascorbic Acid 500 mg 02/16/22 06:00 02/16/22 05:40 Ascorbic Acid 500 Mg Tablet PO 500 mg DAILY [facility] Administration Aspirin 81 mg 02/16/22 08:00 02/16/22 08:32 Aspirin E.C. 81 Mg Tablet PO 81 mg 0800 [facility] Administration Atorvastatin Calcium 40 mg 02/15/22 22:00 02/15/22 20:37 Atorvastatin Calcium 40 Mg Tablet PO 40 mg QHS [facility] Administration Bisacodyl 10 mg 02/15/22 14:25 Bisacodyl 10 Mg Suppository RC DAILY PRN CONSTIPATION Calcium/Vitamin D 1 tablet 02/16/22 08:00 02/16/22 08:32 Calcium Carb/Vitamin D 1 Tablet Tablet PO 1 tablet 0800 [facility] Administration Carvedilol 25 mg 02/15/22 18:00 02/16/22 05:38 Carvedilol 25 Mg Tablet PO 25 mg BID [facility] Administration Cephalexin 500 mg 02/15/22 18:00 02/16/22 05:40 Cephalexin 500 Mg Capsule PO 02/22/22 12:01 500 mg Q6 [facility] Administration Dicyclomine HCl 20 mg 02/15/22 16:45 02/16/22 05:43 Dicyclomine 10 Mg Capsule PO 20 mg TIDAC [facility] Administration Duloxetine HCl 60 mg 02/15/22 18:00 02/16/22 05:40 Duloxetine Hcl 60 Mg Capsule PO 60 mg BID [facility] Administration Hydralazine HCl 25 mg 02/15/22 22:00 02/16/22 05:39 Hydralazine 25 Mg Tablet PO 25 mg TID [facility] Administration Lactobacillus Acidophilus 1 tablet 02/16/22 06:00 02/16/22 05:38 Lactobacillus Acidophilus PO 1 tablet DAILY [facility] Administration Levothyroxine Sodium 100 mcg 02/16/22 06:00 02/16/22 05:39 Levothyroxine 100 Mcg Tablet PO 100 mcg 0600 [facility] Administration Linagliptin 5 mg 02/16/22 06:00 02/16/22 05:42 Linagliptin 5 Mg Tablet PO 5 mg DAILY [facility] Administration Loratadine 10 mg 02/16/22 06:00 02/16/22 05:38 Loratadine 10 Mg Tablet PO 10 mg DAILY [facility] Administration Magnesium Chloride 128 mg 02/16/22 06:00 02/16/22 05:39 Magnesium Chloride 64 Mg Delay Rel.Tablet PO 128 mg DAILY [facility] Administration Multivitamins 1 tablet 02/16/22 08:00 02/16/22 08:32 Multivitamins,Therapeutic Tablet PO 1 tablet 0800 [facility] Administration Oxycodone HCl 5 mg 02/15/22 14:10 02/16/22 08:40 Oxycodone 5 Mg Tablet PO 5 mg Q4H PRN PRN Administration Pain Score 6-10 Pantoprazole Sodium 40 mg 02/15/22 18:00 02/16/22 05:39 Pantoprazole Sodium 40 Mg Tablet PO 40 mg BID [facility] Administration Polyethylene Glycol 17 gm 02/16/22 06:00 02/16/22 05:36 Polyethylene Glycol 3350 17 Gm Packet PO Not Given DAILY [facility] Pregabalin 100 mg 02/16/22 06:00 02/16/22 05:40 Pregabalin 50 Mg Capsule PO 100 mg DAILY [facility] Administration Rivaroxaban 10 mg 02/16/22 17:00 Rivaroxaban 10 Mg Tablet PO 03/18/22 17:01 DINNER [facility] Sacubitril/Valsartan 1 each 02/15/22 18:00 02/16/22 05:39 Sacubitril/Valsartan 49-51 Mg Tablet PO 1 each BID [facility] Administration Fluticasone/Salmeterol 1 puff 02/15/22 18:00 02/16/22 05:47 Fluticasone/Salmeterol 232-14 Inhaler INHALATION 1 puff Q12 [facility] Administration Senna/Docusate Sodium 1 tablet 02/16/22 06:00 02/16/22 05:36 Senna/Docusate Sodium 1 Tablet PO Not Given BID [facility] Tizanidine HCl 4 mg 02/15/22 15:09 02/15/22 23:14 Tizanidine Hcl 2 Mg Tablet PO 4 mg Q8H PRN Administration Muscle Spasm Tuberculin PPD 0.1 ml 02/16/22 10:00 Tuberculin,Purif.Prot.Deriv. 50 Tu/Ml Vial ID 02/16/22 10:01 X1 ONE Tuberculin PPD 0.1 ml 02/23/22 10:00 Tuberculin,Purif.Prot.Deriv. 50 Tu/Ml Vial ID 02/23/22 10:01 X1 ONE Venlafaxine HCl 150 mg 02/15/22 22:00 02/15/22 20:37 Venlafaxine Hcl 75 Mg Tablet PO 150 mg QHS [facility] Administration Venlafaxine HCl 75 mg 02/16/22 06:00 02/16/22 05:39 Venlafaxine Hcl 75 Mg Tablet PO 75 mg DAILY [facility] Administration Zinc Sulfate 220 mg 02/16/22 06:00 02/16/22 05:40 Zinc Sulfate (50mg Elemental) 220 Mg Capsule PO 220 mg DAILY [facility] Administration Problem List (Last Reviewed 02/15/22 @ 19:[address] Wei Barry MD) Allergic rhinitis (Acute) Osteoporosis (Acute) Diabetic polyneuropathy (Acute) Chronic systolic congestive heart failure (Chronic) Hypomagnesemia (Acute) Muscle spasm (Acute) Herpes simplex (Acute) History of stroke (Acute) Depression (Acute) Irritable bowel syndrome (Acute) Diabetes mellitus (Acute) Hyperlipidemia (Acute) Chronic headaches (Chronic) Gastroesophageal reflux disease (Acute) Hypothyroidism (Acute) Acute anemia (Acute) Closed right ankle fracture (Acute) Acute kidney injury (Acute) Urinary tract infection (Acute) Encephalopathy (Acute) Debility (Acute) Vital Signs Temp Pulse Resp BP Pulse Ox 98.1 F 87 16 138/75 H 95 02/16/22 05:48 02/16/22 05:48 02/16/22 05:48 02/16/22 05:48 02/16/22 05:48 Oxygen Delivery Method Room Air Weight: 108.862 kg Body Mass Index (BMI) 43.9 Sodium 137 mmol/L (136-145) 02/16/22 05:13 Potassium 3.8 mmol/L (3.5-5.1) 02/16/22 05:13 Chloride 108 mmol/L (98-107) H 02/16/22 05:13 Carbon Dioxide 25.0 mmol/L (21.0-32.0) 02/16/22 05:13 Anion Gap 4 (5-15) L 02/16/22 05:13 BUN 11 mg/dL (7-18) 02/16/22 05:13 Creatinine 0.78 mg/dL (0.55-1.02) 02/16/22 05:13 Est GFR (MDRD) Af Amer 97 mL/min (>60) 02/16/22 05:13 Est GFR (MDRD) Non-Af 80 mL/min (>60) 02/16/22 05:13 BUN/Creatinine Ratio 14.2 RATIO (10-20) 02/16/22 05:13 Glucose 122 mg/dL (74-106) H 02/16/22 05:13 Assessment/Plan: 1. Pain: Tylenol 1000mg PO Q8h, Oxycodone 5mg PO Q4h PRN Pain 6-10. Please continue to monitor for increased/decreased S/S pain, PRN medication usage, oversedation, respiratory depression with opiate use. Please continue to monitor for overuse of opioid medication, which can lead to altered mental status. -- The patient has utilized 2 doses of PRN oxycodone in the past 24hrs. 2. CHF: Coreg 25mg PO BID, Hydralazine 25mg PO TID, Entresto 49/51mg 1 tab PO BID. Please continue to monitor BP (last 138/75), pulse (last 87 BPM), renal function, electrolytes. 3. History of Stroke: Aspirin 81mg Po daily, Lipitor 40mg PO QHS. Please continue to monitor for S/S bleeding/bruising, lipid panel annually or sooner if clinically indicated, S/S recurrent stroke. 4. DVT Prophylaxis (recent ankle surgery): Xarelto 10mg PO Daily thru 03/18/22. Please continue to monitor for S/S bleeding/bruising, H/H, S/S clot formation. 5. E.coli UTI: Keflex 500mg PO Q6h thru 02/22/22. Urine culture finalized which shows an E.coli resistant to cephalosporins and ESBL (+). Please consider modifying antibiotic to an agent that the E.coli is sensitive to. If infection is an uncomplicated UTI, may switch to Macrobid to treat the bacteria, as the E.coli is sensitive to this, thank you. Would not recommend a fluoroquinolone due to interaction with Zanaflex which she takes PRN. If FQ to be started, please DC Zanaflex. 6. Hypothyroidism: Synthroid 100mcg PO daily. Please continue to monitor for S/S hypothyroid, monitor Thyroid function test as clinically indicated, thank you. *7. Type II Diabetes: Tradjenta 5mg PO Daily. Please continue to monitor BG levels, please consider getting an A1c as last level was done 01/2021 (5.7%), thank you. 8. Allergic Rhinitis: Claritin 10mg PO Daily. Please continue to monitor for medication effectiveness. 9. GERD: Protonix 40mg PO BID. Please continue to monitor for S/S GERD exacerbation. May also encourage non-pharmacologic treatments as well to help minimize GERD flare-ups. 10. Herpes Simplex: Acyclovir 400mg PO BID. Please continue to monitor for resolution of infection, headache, nausea. 11. Osteoporosis: Fosamax 70mg PO Weekly (on Sunday). Please make sure patient is taking 1st thing in the morning and dose not lie down after administration of medication. Please continue to monitor labs as clinically indicated. 12. COPD: AirDuo 1 puff INH Q12h. Please continue to monitor HR, S/S COPD exacerbation/infection. Please have patient rinse mouth out after administration to avoid thrush. 13. Diabetic Neuropathy: Lyrica 100mg PO Daily. Please continue to monitor for excessive drowsiness, dizziness, edema (especially given heart failure), medication effectiveness. 14. IBS: Bentyl 20mg PO TID. Please continue to monitor for medication e ffectiveness, S/S constipation. 15. Muscle Spasms: Zanaflex 4mg PO Q8h PRN. Please continue to monitor for medication effectiveness, drowsiness and sedation, especially since the patient has active narcotic orders and is on Lyrica which can also cause these side effects. 16. Chronic Headaches: Amitriptyline 235mg PO QHS. please continue to monitor for drowsiness, dizziness especially since the patient is on other medications that can cause these side effects (opioids, Zanaflex, Lyrica). 17. General Wellness: Vitamin C 500mg PO daily, Os-Jose+D 1 tab PO daily, Magnesium chloride 128mg PO daily, MVI 1 tab PO Daily, Zinc 220mg PO daily, Acidophilus 1 tab PO Daily. Please continue to monitor labs as clinically indicated. Psychotropic Medications: 18. Depression: Cymbalta 60mg PO BID, Effexor 75mg PO QAM and 150mg PO QHS. Please see note in H/P regarding GDR recommendation, thank you. Unnecessary Medications: none Bowel Regimen: Miralax 17g PO Daily, Senna/Docusate 1 tab PO BID, Dulcolax 10mg MA Daily PRN. Please continue to monitor for increased/decreased constipation and/or diarrhea. Date of Note:: 02/16/22
--- NOTE | 2022-02-16 10:47 | NURSING ---
Notified Dr. Baryr that pharmacy called stating pt UTI not sensitive to Keflex, received order to stop Keflex and start Cipro 250mg BID until 02/22/22. Order repeated back, will add order.
[2022-02-16] MEDS: Tuberculin,Purif.prot.deriv. 50 TU/ML Vial 0.1 ML ID (11:33)
[2022-02-16 13:19] VITALS: BP 129/71; PULSE 94
[2022-02-16 13:33] VITALS: BP 129/71; PULSE 94; RESP 18; TEMP 36.1; O2SAT 97
--- NOTE | 2022-02-16 16:54 | CASEMGMT ---
Social Work Met with patient for initial assessment. Introduced self and role. Pt wishes to have sister be primary contact and remain involved in updates and DC plans. Discussed code status and MOLST form. Pt wishes to be DNR-CCA, no intubation. Nursing notified. MOLST communicated to , placed in chart. Explained [facility] insurance with [employer] 02/17 and continued stay is not guaranteed with each review. The goal is for pt to return to [facility] with ramp entrance. Pt receives PASSPORT services. Her CM is Sreekanth and is aware of her admission, per pt. Pt has [employer] through [employer], 3 hrs/day, 2x/wk. Pt states she has a f/u appt 02/23 with ortho and depending on that outcome, she would like to plan for DC about 02/25. SW to assist with DC plans. Barby Christopher ,[employer]
[2022-02-16] MEDS: Rivaroxaban 10 MG Tablet PO (17:17)
[2022-02-16] MEDS: Ciprofloxacin 250 MG Tablet PO (17:21)
[2022-02-16] MEDS: Amitriptyline 25 MG Tablet PO (20:44)
[2022-02-16] MEDS: Atorvastatin Calcium 40 MG Tablet PO (20:44)
[2022-02-16 20:45] VITALS: BP 123/76; PULSE 84
[2022-02-16] MEDS: Venlafaxine HCl 75 MG Tablet 150 MG PO (20:45)
[2022-02-17] MEDS: tiZANidine HCl 2 MG Tablet 4 MG PO ×2 (00:10→22:56)
[2022-02-17] MEDS: oxyCODONE 5 MG Tablet PO ×4 (00:10→22:54)
[2022-02-17 05:39] VITALS: PULSE 76
[2022-02-17] MEDS: Fluticasone/Salmeterol 232-14 Inhaler 1 PUFF INHALATION ×2 (05:39→16:47)
[2022-02-17] MEDS: Acyclovir 200 MG Capsule 400 MG PO ×2 (05:39→16:43)
[2022-02-17] MEDS: hydrALAZINE 25 MG Tablet PO ×3 (05:39→21:32)
[2022-02-17] MEDS: Loratadine 10 MG Tablet PO (05:40)
[2022-02-17] MEDS: Carvedilol 25 MG Tablet PO ×2 (05:40→16:45)
[2022-02-17] MEDS: SACUBITRIL/VALSARTAN 49-51 MG TABLET 1 EACH PO ×2 (05:40→16:45)
[2022-02-17] MEDS: Pantoprazole Sodium 40 MG Tablet PO ×2 (05:40→16:46)
[2022-02-17] MEDS: Levothyroxine 100 MCG Tablet PO (05:40)
[2022-02-17] MEDS: LINAGLIPTIN 5 MG TABLET PO (05:40)
[2022-02-17] MEDS: Ciprofloxacin 250 MG Tablet PO ×2 (05:40→16:45)
[2022-02-17] MEDS: DULoxetine Hcl 60 MG Capsule PO ×2 (05:40→16:45)
[2022-02-17] MEDS: Senna/Docusate Sodium 1 Tablet PO ×2 (05:40→16:44)
[2022-02-17] MEDS: Venlafaxine HCl 75 MG Tablet PO (05:40)
[2022-02-17] MEDS: Ascorbic Acid 500 MG Tablet PO (05:40)
[2022-02-17] MEDS: Magnesium Chloride 64 MG Delay Rel.Tablet 128 MG PO (05:41)
[2022-02-17] MEDS: Acetaminophen 500 MG Tablet 1000 MG PO ×3 (05:44→21:32)
[2022-02-17] MEDS: Dicyclomine 10 MG Capsule 20 MG PO ×3 (05:44→16:41)
[2022-02-17] MEDS: Pregabalin 50 MG Capsule 100 MG PO (05:47)
[2022-02-17] MEDS: Multivitamins,Therapeutic Tablet 1 TABLET PO (08:39)
[2022-02-17] MEDS: Aspirin E.C. 81 MG Tablet PO (08:39)
[2022-02-17] MEDS: Calcium Carb/Vitamin D 1 TABLET Tablet PO (08:40)
[2022-02-17 14:13] VITALS: BP 140/70; PULSE 87
[2022-02-17 16:31] VITALS: BP 129/61; PULSE 92; RESP 18; TEMP 36.1; O2SAT 95
[2022-02-17] MEDS: Rivaroxaban 10 MG Tablet PO (16:42)
[2022-02-17 21:32] VITALS: BP 135/85; PULSE 75
[2022-02-17] MEDS: Atorvastatin Calcium 40 MG Tablet PO (21:32)
[2022-02-17] MEDS: Amitriptyline 25 MG Tablet PO (21:32)
[2022-02-17] MEDS: Venlafaxine HCl 75 MG Tablet 150 MG PO (21:32)
[2022-02-17 22:16] VITALS: PULSE 65; RESP 16; O2SAT 97
--- NOTE | 2022-02-17 22:52 | PCA ---
[employer] offered to help patient washed up for the night, and patient stated they had already taken care of everything earlier. They did not see the point of washing again as they did not do anything to get dirty
[2022-02-18] MEDS: Loratadine 10 MG Tablet PO (05:59)
[2022-02-18] MEDS: Magnesium Chloride 64 MG Delay Rel.Tablet 128 MG PO (05:59)
[2022-02-18] MEDS: Ciprofloxacin 250 MG Tablet PO ×2 (06:00→18:03)
[2022-02-18] MEDS: Dicyclomine 10 MG Capsule 20 MG PO ×3 (06:00→18:03)
[2022-02-18] MEDS: Acetaminophen 500 MG Tablet 1000 MG PO ×3 (06:00→22:11)
[2022-02-18] MEDS: Carvedilol 25 MG Tablet PO ×2 (06:00→18:07)
[2022-02-18] MEDS: Levothyroxine 100 MCG Tablet PO (06:00)
[2022-02-18] MEDS: Pregabalin 50 MG Capsule 100 MG PO (06:01)
[2022-02-18] MEDS: Pantoprazole Sodium 40 MG Tablet PO ×2 (06:01→18:04)
[2022-02-18] MEDS: Senna/Docusate Sodium 1 Tablet PO ×2 (06:01→18:04)
[2022-02-18] MEDS: Fluticasone/Salmeterol 232-14 Inhaler 1 PUFF INHALATION ×2 (06:01→18:06)
[2022-02-18] MEDS: SACUBITRIL/VALSARTAN 49-51 MG TABLET 1 EACH PO ×2 (06:01→18:07)
[2022-02-18 06:02] VITALS: BP 104/61; PULSE 79
[2022-02-18] MEDS: Acyclovir 200 MG Capsule 400 MG PO ×2 (06:02→18:04)
[2022-02-18] MEDS: Ascorbic Acid 500 MG Tablet PO (06:02)
[2022-02-18] MEDS: LINAGLIPTIN 5 MG TABLET PO (06:02)
[2022-02-18] MEDS: hydrALAZINE 25 MG Tablet PO ×3 (06:02→22:11)
[2022-02-18] MEDS: DULoxetine Hcl 60 MG Capsule PO ×2 (06:09→18:06)
[2022-02-18] MEDS: Venlafaxine HCl 75 MG Tablet PO (06:10)
[2022-02-18 06:31] LABS: Bedside Glucose 135 mg/dL (74-106)
[2022-02-18] MEDS: Aspirin E.C. 81 MG Tablet PO (09:11)
[2022-02-18] MEDS: Multivitamins,Therapeutic Tablet 1 TABLET PO (09:13)
[2022-02-18] MEDS: Calcium Carb/Vitamin D 1 TABLET Tablet PO (09:13)
[2022-02-18] MEDS: oxyCODONE 5 MG Tablet PO ×3 (09:17→22:19)
--- NOTE | 2022-02-18 11:12 | RAD_ITS ---
STUDY: X-RAY CHEST REASON FOR EXAM: Female, 61 years old. Moist Productive Cough TECHNIQUE: PA and lateral views of the chest. COMPARISON: 02/13/2022 FINDINGS: The lungs are clear and expanded. There is no demonstrated pleural abnormality. Normal size heart. Normal mediastinum and jonathan. Normal visualized pulmonary arteries. Normal visualized aortic arch and descending thoracic aorta. Normal visualized thoracic spine. Normal visualized ribs, clavicles, and shoulders. There is no demonstrated abnormality of the visualized soft tissue structures of the upper abdomen. RAD/Chest PA and Lateral IMPRESSION: Normal x-ray examination of the chest. Electronically Signed: Rick Gonzalez MD at 15:21 EDT ,
[2022-02-18 11:30] LABS: Absolute Lymphocyte Count 1.35 X10^3/uL (0.83-4.51); Absolute Neutrophil Count 3.8 X10^3/uL (2.0-7.7); Basophil# 0.03 X10^3/uL; Basophil% 0.5 % (0-1); Eosinophil# 0.19 X10^3/uL; Eosinophils% 3.1 % (0-5); Hematocrit 27.1 % (37-47); Hemoglobin 8.7 g/dL (12.0-15.0); Lymphocyte # 1.35 X10^3/ul (0.83-4.51); Lymphocyte % 21.8 % (19-41); Mean Corp Hgb Conc 32.1 g/dL (32-36); Mean Corpuscular Hgb 30.4 pg (27.0-32.0); Mean Corpuscular Volume 94.8 fL (81-99); Mean Platelet Vol. 9.9 fl (6.2-12.0); Monocyte# 0.63 X10^3/uL; Monocyte% 10.2 % (0-10); NRBC Flagged by Analyzer 0 % (0-5); Neutrophil # 3.77 X10^3/uL (2.7-7.7); Neutrophil % 60.7 % (47-70); Platelet Count 176 K/mm3 (150-450); RBC Distribution Width CV 13.9 % (11.6-14.6); RBC Distribution Width SD 47.8 fl (35.1-43.9); Red Blood Count 2.86 M/mm3 (4.2-5.4); White Blood Count 6.2 K/mm3 (4.4-11.0)
--- NOTE | 2022-02-18 11:38 | NURSING ---
Pt reports that she has been battling PNA prior to admission that was growing MRSA, and was being treated before coming to hospital. Pt has a moist cough, and reports to staff that she is coughing up brown/yellow sputum, but has not been observed by this nurse. PT was placed in contact precautions prior thpo
--- NOTE | 2022-02-18 11:40 | NURSING ---
Pt reports that she has been battling PNA prior to admission that was growing MRSA, and was being treated before coming to hospital. Pt has a moist cough, and reports to staff that she is coughing up brown/yellow sputum, but has not been observed by this nurse. PT was placed in contact precautions prior to reporting this d/t ESBL in urine. Dr. Barry updated N.O. CXR, CBC/BMP, and sputum cultures.
[2022-02-18 11:58] LABS: Anion Gap 5 (5-15); BUN 17 mg/dL (7-18); Calcium,Total 9.6 mg/dL (8.5-10.1); Chloride 105 mmol/L (98-107); Creatinine, Serum 0.81 mg/dL (0.55-1.02); EST Glomerular Filtration Rate 77 mL/min (>60); Est Glom Filt Rate - Afr Amer 93 mL/min (>60); Estimated Creatinine Clearance 57.69 ml/min; Glucose 111 mg/dL (74-106); Potassium 4.6 mmol/L (3.5-5.1); Sodium Level 137 mmol/L (136-145)
[2022-02-18 13:52] VITALS: BP 142/75; PULSE 91; RESP 18; TEMP 36.1; O2SAT 96
[2022-02-18 13:57] VITALS: PULSE 91
--- NOTE | 2022-02-18 15:02 | NURSING ---
Pt reports she has not seen anyone from orthopedics yet for her right ankle fracture. She stated she declined seeing one when she came to the emergency department because she is already established with an Ortho doctor from previous issues and would just follow-up with him. She states Dr. Viramontes is her Ortho doctor and had an appointment on 02/23/22 to see him but that Dr. Viramontes called her on 02/16 and stated he is a hand specialist and wants to refer her to a physician in [place]. Pt is concerned about transport and tolerating transportation and is requesting an ortho consult with someone local. Message left for Dr. Barry.
[2022-02-18] MEDS: guaiFENesin 600 MG Tablet PO (18:05)
[2022-02-18 22:11] VITALS: BP 155/81; PULSE 85
[2022-02-18] MEDS: Venlafaxine HCl 75 MG Tablet 150 MG PO (22:11)
[2022-02-18] MEDS: Amitriptyline 25 MG Tablet PO (22:12)
[2022-02-18] MEDS: Atorvastatin Calcium 40 MG Tablet PO (22:12)
[2022-02-18 22:42] VITALS: PULSE 85; RESP 16; O2SAT 98
[2022-02-19] MEDS: Pregabalin 50 MG Capsule 100 MG PO (05:38)
[2022-02-19] MEDS: Fluticasone/Salmeterol 232-14 Inhaler 1 PUFF INHALATION ×2 (05:38→17:45)
[2022-02-19] MEDS: Acetaminophen 500 MG Tablet 1000 MG PO ×3 (05:40→20:40)
[2022-02-19] MEDS: Dicyclomine 10 MG Capsule 20 MG PO ×3 (05:40→17:38)
[2022-02-19] MEDS: Levothyroxine 100 MCG Tablet PO (05:41)
[2022-02-19] MEDS: LINAGLIPTIN 5 MG TABLET PO (05:41)
[2022-02-19] MEDS: Ascorbic Acid 500 MG Tablet PO (05:41)
[2022-02-19] MEDS: Acyclovir 200 MG Capsule 400 MG PO ×2 (05:41→17:38)
[2022-02-19] MEDS: Magnesium Chloride 64 MG Delay Rel.Tablet 128 MG PO (05:42)
[2022-02-19] MEDS: Senna/Docusate Sodium 1 Tablet PO ×2 (05:42→17:38)
[2022-02-19] MEDS: Venlafaxine HCl 75 MG Tablet PO (05:42)
[2022-02-19] MEDS: Ciprofloxacin 250 MG Tablet PO ×2 (05:43→17:38)
[2022-02-19] MEDS: Pantoprazole Sodium 40 MG Tablet PO ×2 (05:43→17:38)
[2022-02-19] MEDS: guaiFENesin 600 MG Tablet PO ×2 (05:43→17:39)
[2022-02-19 05:44] VITALS: BP 90/55; PULSE 59
[2022-02-19] MEDS: SACUBITRIL/VALSARTAN 49-51 MG TABLET 1 EACH PO ×2 (05:47→17:38)
[2022-02-19] MEDS: Loratadine 10 MG Tablet PO (05:47)
[2022-02-19] MEDS: DULoxetine Hcl 60 MG Capsule PO ×2 (05:47→17:39)
[2022-02-19 06:20] LABS: Bedside Glucose 113 mg/dL (74-106)
[2022-02-19 06:47] VITALS: BP 105/65; PULSE 62; RESP 16; TEMP 36.7; O2SAT 98
[2022-02-19] MEDS: Aspirin E.C. 81 MG Tablet PO (08:43)
[2022-02-19] MEDS: Multivitamins,Therapeutic Tablet 1 TABLET PO (08:43)
[2022-02-19] MEDS: Calcium Carb/Vitamin D 1 TABLET Tablet PO (08:43)
[2022-02-19] MEDS: oxyCODONE 5 MG Tablet PO ×3 (08:47→22:58)
[2022-02-19 13:41] VITALS: BP 132/70; PULSE 86
[2022-02-19] MEDS: hydrALAZINE 25 MG Tablet PO ×2 (13:41→20:41)
[2022-02-19] MEDS: Carvedilol 25 MG Tablet PO (17:38)
[2022-02-19 18:28] VITALS: BP 132/70; PULSE 86; RESP 16; TEMP 36.3; O2SAT 94
[2022-02-19 20:41] VITALS: BP 155/69; PULSE 94
[2022-02-19] MEDS: Venlafaxine HCl 75 MG Tablet 150 MG PO (20:41)
[2022-02-19] MEDS: Atorvastatin Calcium 40 MG Tablet PO (20:41)
[2022-02-19] MEDS: Amitriptyline 25 MG Tablet PO (20:41)
[2022-02-19 22:00] VITALS: PULSE 94; O2SAT 100
[2022-02-20] MEDS: guaiFENesin 600 MG Tablet PO ×2 (06:12→17:32)
[2022-02-20] MEDS: Magnesium Chloride 64 MG Delay Rel.Tablet 128 MG PO (06:12)
[2022-02-20] MEDS: Ascorbic Acid 500 MG Tablet PO (06:13)
[2022-02-20] MEDS: Pantoprazole Sodium 40 MG Tablet PO ×2 (06:13→17:33)
[2022-02-20] MEDS: Dicyclomine 10 MG Capsule 20 MG PO ×3 (06:13→17:30)
[2022-02-20] MEDS: Venlafaxine HCl 75 MG Tablet PO (06:13)
[2022-02-20] MEDS: Acyclovir 200 MG Capsule 400 MG PO ×2 (06:13→17:34)
[2022-02-20] MEDS: DULoxetine Hcl 60 MG Capsule PO ×2 (06:13→17:32)
[2022-02-20] MEDS: Ciprofloxacin 250 MG Tablet PO ×2 (06:13→18:28)
[2022-02-20] MEDS: Levothyroxine 100 MCG Tablet PO (06:13)
[2022-02-20] MEDS: SACUBITRIL/VALSARTAN 49-51 MG TABLET 1 EACH PO ×2 (06:13→17:40)
[2022-02-20] MEDS: LINAGLIPTIN 5 MG TABLET PO (06:13)
[2022-02-20] MEDS: Senna/Docusate Sodium 1 Tablet PO ×2 (06:13→17:34)
[2022-02-20] MEDS: Carvedilol 25 MG Tablet PO ×2 (06:14→17:32)
[2022-02-20] MEDS: Acetaminophen 500 MG Tablet 1000 MG PO ×3 (06:14→20:56)
[2022-02-20] MEDS: Loratadine 10 MG Tablet PO (06:14)
[2022-02-20] MEDS: Pregabalin 50 MG Capsule 100 MG PO (06:17)
[2022-02-20] MEDS: Fluticasone/Salmeterol 232-14 Inhaler 1 PUFF INHALATION ×2 (06:20→17:38)
[2022-02-20 06:25] VITALS: BP 96/39; PULSE 68
[2022-02-20 06:31] LABS: Bedside Glucose 135 mg/dL (74-106)
[2022-02-20] MEDS: Aspirin E.C. 81 MG Tablet PO (08:39)
[2022-02-20] MEDS: Multivitamins,Therapeutic Tablet 1 TABLET PO (08:40)
[2022-02-20] MEDS: Calcium Carb/Vitamin D 1 TABLET Tablet PO (08:40)
[2022-02-20] MEDS: oxyCODONE 5 MG Tablet PO ×3 (08:43→22:20)
[2022-02-20 11:15] VITALS: PULSE 90; RESP 18; O2SAT 95
--- NOTE | 2022-02-20 11:41 | PCM.CONS.GEN ---
Assessment & Plan Assessment/Plan (1) Closed right ankle fracture: (2) Diabetic polyneuropathy: (3) Osteoporosis: (4) Peripheral vascular disease: (5) Walking difficulty due to ankle and foot: PLAN: I reviewed and discussed her case. Her medical records were also reviewed. It appears she had prior open reduction internal fixation of right complex ankle fracture in 2019 with some subsequent ongoing instability is suspected with some loosening around the syndesmosis screws. Her new date of injury was 02-11-2022 in which she has a short spiral oblique fibula fracture adjacent to the distal syndesmosis screw and overall her ankle is intact. She is high risk for surgical revision which would potentially include removal of the syndesmosis screws, revisional open reduction internal fixation given her acute injury pattern, versus ankle arthrodesis. I recommend proceeding forward with nonsurgical care. Her splint and compression dressing was temporarily removed and the absence of fracture blister ulcer was confirmed. This was reapplied with a posterior mold and sugar-tong splint. Anticipated healing time of fractures and fracture management was reviewed. If this goes well, I recommend the patient is progressed into long-term use of an ankle-foot orthotic. The following recommendations are made: Nonweightbearing status right lower extremity with splint intact. Use assistive device. To continue to work with therapist while in the transitional care unit. Edema management: Keep multilayer compression wrap and splint intact to right lower extremity. Elevate. Vascular: She is reported history of peripheral vascular disease. She does not appear to have any clinical signs of critical limb ischemia at this time. She will follow-up in the clinical setting to reassess her skin envelope. Additional medical records from [facility] will be obtained. Osteoporosis/vitamin deficiency: This affects her bone healing status. An updated vitamin D level was ordered to evaluate for any deficiency. Supplementation may be required. Medical management per Dr. Barry is appreciated and noted. Her multiple comorbidities are noted. It is noted her A1c was under 6% last year. To [facility]up [facility] in 3 weeks for updated x-ray and for skin check. Thank you for the consultation. Please do not hesitate to call if you have any questions. Anay Gold DPM, F[facility] [phone] HPI Consult Data Date of Consult: 02/20/22 HPI Narrative HPI Narrative: BILL CHOI, is a 61 F who was seen bedside in the transitional care unit for a right ankle fracture with a date of injury of 02-11-2022. She relates she will was standing and her ankle just gave out. It is noted she had a prior ankle surgery in 2019 which was repaired with medial and lateral internal fixation. She reports she did have some prior loosening of some of the screws and was trying to hold off on having any type of revisional surgery due to her multiple infections including urinary tract infections, blood infections and delayed healing of her recent right hand trigger finger surgery as well. She also reports she has peripheral vascular disease and had an angioplasty performed at [facility] several years ago. She denies claudication however does not ambulate a regular basis. She denies any known openings of her recent right ankle fracture site and has kept her splint clean and dry since it was applied. She relates her pain is minimal however she admits she has neuropathy. She has been able to maintain a nonweightbearing status and has been working with physical therapy while at the transitional care unit. It is noted she was also admitted for altered mental status. [facility] Medical History ACTH deficiency Acute respiratory failure with hypoxia Allergic rhinitis Anemia Asthma Asthma exacerbation Atherosclerosis of coronary artery without angina pectoris Bilateral leg weakness Bone fracture Cardiomyopathy Carotid artery stenosis Carpal tunnel syndrome Chronic constipation with suspected IBS Chronic headaches Chronic systolic (congestive) heart failure CKD (chronic kidney disease) stage 3, GFR 30-59 ml/min Debility Essential hypertension Falls Flash pulmonary edema (01/16/21) Gait difficulty Gallstones GERD (gastroesophageal reflux disease) GI problem Herpes simplex History of Clostridium difficile infection History of CVA (cerebrovascular accident) (2018) History of depression History of emotional problems History of ischemic colitis Hx of diverticulitis of colon Hyperlipidemia Hypertension Hypotension Hypothyroidism Irritable bowel syndrome Kidney disease Neuropathy Non-ischemic cardiomyopathy Normochromic normocytic anemia Obesity Osteoarthritis Osteopenia Osteoporosis Peripheral vascular disease Pulmonary edema Right hemiparesis Seasonal allergies Secondary adrenal insufficiency Stomach ulcer Stroke/cerebrovascular accident Trigeminal trophic syndrome Type 2 diabetes mellitus Home Medications multivitamin 1 ea PO DAILY 12/29/17 [History Last Taken 02/12/22] pantoprazole 40 mg PO BID 03/29/19 [History Last Taken 02/12/22] amitriptyline 25 mg PO QHS 08/10/19 [History Last Taken 02/12/22] rosuvastatin 20 mg tablet 20 mg PO QHS 08/25/19 [History Last Taken 02/12/22] sitagliptin 50 mg tablet 50 mg PO DAILY 09/04/19 [History Last Taken 02/12/22] dicyclomine 20 mg PO TIDAC 10/19/20 [History Last Taken 02/12/22] duloxetine 60 mg PO BID 10/19/20 [History Last Taken 02/12/22] valacyclovir 500 mg PO DAILY 10/19/20 [History Last Taken 02/12/22] tizanidine 4 mg tablet 4 mg PO Q8H PRN 01/26/21 [History Last Taken 02/12/22] ascorbate calcium (vitamin C) 500 mg tablet 500 mg PO DAILY 01/27/21 [History Last Taken 02/12/22] calcium carbonate 600 mg-vitamin D3 12.5 mcg (500 unit) capsule 1 cap PO DAILY 01/27/21 [History Last Taken 02/12/22] magnesium oxide 400 mg PO DAILY 01/27/21 [History Last Taken 02/12/22] venlafaxine 150 mg PO QHS 02/04/21 [History Last Taken 02/12/22] Lactobacillus rhamnosus GG 10 billion cell capsule 1 cap PO DAILY 05/18/21 [History Last Taken 02/12/22] furosemide 40 mg tablet 20 - 40 mg PO DAILY PRN tablet 05/18/21 [History Last Taken Unknown] pregabalin 100 mg capsule 100 mg PO DAILY 05/18/21 [History Last Taken 02/12/22] carvedilol 25 mg tablet 25 mg PO BID 08/23/21 [History Last Taken 02/12/22] Entresto 1 tab PO BID 02/11/22 [History Last Taken 02/12/22] fluticasone propion-salmeterol [Advair Diskus] 1 inh INHALATION BID 02/11/22 [History Last Taken 02/12/22] venlafaxine 75 mg PO DAILY 02/11/22 [History Last Taken 02/12/22] alendronate 70 mg PO TU 02/13/22 [History Last Taken 02/07/22] cetirizine [Zyrtec] 10 mg PO DAILY 02/13/22 [History Last Taken 02/12/22] levothyroxine 100 mcg PO DAILY 02/13/22 [History Last Taken 02/12/22] zinc 50 mg PO DAILY 02/13/22 [History Last Taken 02/12/22] acetaminophen 1,000 mg PO Q8 02/15/22 [History Last Taken Unknown] aspirin 81 mg PO DAILY@0800 02/15/22 [History Last Taken Unknown] cephalexin 500 mg PO Q6 02/15/22 [History Last Taken Unknown] hydralazine 25 mg PO TID 02/15/22 [History Last Taken Unknown] oxycodone 5 mg PO Q4H PRN PRN #0 tab 02/15/22 [Rx Last Taken Unknown] Allergy/AdvReac Type Severity Reaction Status Date / Time adhesive Allergy skin Verified 02/13/22 13:32 irritation amlodipine [From Norvasc] Allergy tachycardia Verified 02/13/22 13:32 hydromorphone HCl Allergy Itching Verified 02/13/22 13:32 [From Dilaudid] sulfamethoxazole Allergy made my Verified 02/13/22 13:32 [From Bactrim] cold sore huge trimethoprim [From Bactrim] Allergy made my Verified 02/13/22 13:32 cold sore huge Family History Grandfather Alcoholism Grandmother Myocardial infarction Mother Arthritis Diverticulitis COPD (chronic obstructive pulmonary disease) Afib Thyroid disorder Father Arthritis Diabetes Myocardial infarction Heart disease Ischemic Hypertension Hyperlipidemia Brother Arthritis Aunt Breast cancer Sister Arthritis Thyroid disorder Skin cancer Uncle Diabetes Surgical History Ankle fracture Fracture of left femur History of angioplasty of peripheral vessel (2010) History of arthroscopic knee surgery History of back surgery History of bilateral knee replacement History of carpal tunnel release History of cholecystectomy History of intestine removal History of left heart catheterization (2011) History of tonsillectomy and adenoidectomy History of trigger finger History of ventral hernia repair Strangulated ventral hernia Social History (Updated 02/15/22 @ 19:[address] Wei Barry MD) household members: none Smoking Status: Former smoker how long ago did patient quit smokin alcohol intake: never substance use type: does not use what type of physical activity do you participate in: other ROS Constitutional Constitutional: Denies chills, fatigue or fever(s) Cardiovascular Cardiovascular: Denies abdominal pain or dyspnea Gastrointestinal Gastrointestinal: Denies nausea or vomiting Musculoskeletal Musculoskeletal: Reports numbness Integumentary Integumentary: Denies skin ulcer Neurologic Neurologic: Reports lack of coordination and paresthesias Physical Exam Const oriented x3 General Appearance: cooperative HEENT normocephalic Extremity Extremity Narrative: No calf tenderness; negative Villalobos bilateral Palpable DP pulses bilateral and nonpalpable bilateral PT pulses with moderate right ankle edema secondary to trauma site Muscle wasting noted, bilateral No skin tenting Compartments remain soft to palpate to the right lower extremity Active range of motion digits x10 Pain to palpation to fibula fracture site right lower extremity No pain palpation to the proximal fibula or medial malleolus No pain with heel compression right lower extremity General Extremity: edema and no tenderness to palpation of joints or extremities; Negative for cyanosis Skin Skin Narrative: no purulence, no streaking, no odor, no infection. There is no fracture blister, skin discontinuity, streaking or deep ecchymosis noted right lower extremity General Skin Exam: Negative for erythema Neuro Neuro Narrative: lack of normal epicritic sensation via light touch is consistent with neuropathy status Psych cooperative and affect normal Lab / Micro Data Result Diagrams: 02/18/22 11:25 02/18/22 11:25 Labs: Laboratory Results - last 24 hr 02/20/22 06:18: POC Glucose 135 H Micro: Microbiology 02/19/22 13:00 Sputum, Expectorated/Coughed Gram Stain - Final 02/19/22 13:00 Sputum, Expectorated/Coughed Respiratory Culture - Preliminary Staphylococcus aureus
[2022-02-20 13:11] VITALS: BP 118/68; PULSE 82
[2022-02-20] MEDS: hydrALAZINE 25 MG Tablet PO (13:11)
[2022-02-20 13:13] VITALS: BP 118/68; PULSE 82; RESP 18; TEMP 36.3; O2SAT 95
--- NOTE | 2022-02-20 15:37 | CASEMGMT ---
Social Work Met with pt to discuss request to DC home. Sister is coming into town for care plan meeting 02/22. Explained CP does not need to take place if pt is electing to DC. Pt does not request having the meeting and sister can take her home. IDT agreeable. Pt requesting [facility] PT/SN. She utilizes [facility] for nonskilled services. No DME needs. Left message with [facility] to update on DC and new referral for PT/SN. Plan: DC home 02/22, [facility] PT/SN Barby Christopher, CARRILLO COELHOW
--- NOTE | 2022-02-20 15:39 | NURSING ---
Dr Mathias requesting medical records from [facility], faxed medical release form with pts signature at this time. fax states it went through. [facility] records dept is to fax to dr mathias's office
[2022-02-20] MEDS: Atorvastatin Calcium 40 MG Tablet PO (20:57)
[2022-02-20] MEDS: Venlafaxine HCl 75 MG Tablet 150 MG PO (20:58)
[2022-02-20] MEDS: Nystatin Powder 15gm Bottle 1 APPLIC TOPICAL (20:59)
[2022-02-20] MEDS: Amitriptyline 25 MG Tablet PO (20:59)
[2022-02-20 21:18] VITALS: BP 104/50; PULSE 68
[2022-02-21] MEDS: Pregabalin 50 MG Capsule 100 MG PO (06:23)
[2022-02-21] MEDS: LINAGLIPTIN 5 MG TABLET PO (06:24)
[2022-02-21] MEDS: SACUBITRIL/VALSARTAN 49-51 MG TABLET 1 EACH PO ×2 (06:24→17:30)
[2022-02-21] MEDS: Magnesium Chloride 64 MG Delay Rel.Tablet 128 MG PO (06:24)
[2022-02-21] MEDS: Levothyroxine 100 MCG Tablet PO (06:24)
[2022-02-21] MEDS: Senna/Docusate Sodium 1 Tablet PO ×2 (06:24→17:30)
[2022-02-21] MEDS: Pantoprazole Sodium 40 MG Tablet PO ×2 (06:24→17:30)
[2022-02-21] MEDS: Dicyclomine 10 MG Capsule 20 MG PO ×3 (06:24→16:44)
[2022-02-21] MEDS: Carvedilol 25 MG Tablet PO ×2 (06:24→17:30)
[2022-02-21] MEDS: Alendronate Sodium 70 MG Tablet PO (06:24)
[2022-02-21] MEDS: Acetaminophen 500 MG Tablet 1000 MG PO ×3 (06:24→21:25)
[2022-02-21] MEDS: Acyclovir 200 MG Capsule 400 MG PO ×2 (06:24→17:30)
[2022-02-21] MEDS: Ciprofloxacin 250 MG Tablet PO ×2 (06:25→17:00)
[2022-02-21] MEDS: DULoxetine Hcl 60 MG Capsule PO ×2 (06:25→17:30)
[2022-02-21] MEDS: Ascorbic Acid 500 MG Tablet PO (06:25)
[2022-02-21] MEDS: Loratadine 10 MG Tablet PO (06:25)
[2022-02-21 06:26] LABS: Bedside Glucose 110 mg/dL (74-106)
[2022-02-21] MEDS: guaiFENesin 600 MG Tablet PO ×2 (06:26→17:30)
[2022-02-21] MEDS: Venlafaxine HCl 75 MG Tablet PO (06:26)
[2022-02-21] MEDS: Fluticasone/Salmeterol 232-14 Inhaler 1 PUFF INHALATION ×2 (06:36→17:32)
[2022-02-21 06:38] VITALS: BP 107/63; PULSE 83
[2022-02-21] MEDS: Aspirin E.C. 81 MG Tablet PO (08:33)
[2022-02-21] MEDS: Calcium Carb/Vitamin D 1 TABLET Tablet PO (08:33)
[2022-02-21] MEDS: Multivitamins,Therapeutic Tablet 1 TABLET PO (08:33)
[2022-02-21] MEDS: oxyCODONE 5 MG Tablet PO ×3 (08:35→22:27)
[2022-02-21] MEDS: Nystatin Powder 15gm Bottle 1 APPLIC TOPICAL ×2 (08:36→22:18)
[2022-02-21 14:00] VITALS: BP 94/66; PULSE 68; RESP 14; TEMP 36.3; O2SAT 97
[2022-02-21 14:49] VITALS: BP 105/72; PULSE 83
[2022-02-21 14:50] VITALS: BP 105/72; PULSE 83
--- NOTE | 2022-02-21 14:51 | NURSING ---
PT REFUSED HER APRESOLINE,STATED SHE WANTS TO GET ON HER SCHEDULE LIKE AT HOME. RN AWARE
--- NOTE | 2022-02-21 18:54 | PCM.DC.SUM ---
Providers Date of Admission: 02/15/22 Primary Care Physician: Dr. Brandon Torres, Consultations 02/20/22 07:41 Consult: Podiatry Routine Consulting Provider: Nilay Chatterjee Reason for Consult: new right ankle fracture, s/p ORIF August 2019. EMERGENT Consult: No MD Notified: Yes Date Notified: 02/20/22 Time Notified: 10:27 Method of Notification: Verbal Reason For Visit: DIBILITY Diagnosis Discharge Diagnosis (1) Closed right ankle fracture: Status: Acute Code(s): S82.891A - Other fracture of right lower leg, initial encounter for closed fracture (2) Diabetic polyneuropathy: Status: Acute Code(s): E11.42 - Type 2 diabetes mellitus with diabetic polyneuropathy (3) Osteoporosis: Status: Acute Code(s): M81.0 - Age-related osteoporosis without current pathological fracture (4) Peripheral vascular disease: Status: Acute Code(s): I73.9 - Peripheral vascular disease, unspecified (5) Walking difficulty due to ankle and foot: Status: Acute Code(s): R26.2 - Difficulty in walking, not elsewhere classified Medications at Discharge Home Medications multivitamin 1 ea PO DAILY 12/29/17 pantoprazole 40 mg PO BID 03/29/19 amitriptyline 25 mg PO QHS 08/10/19 rosuvastatin 20 mg tablet 20 mg PO QHS 08/25/19 sitagliptin 50 mg tablet 50 mg PO DAILY 09/04/19 dicyclomine 20 mg PO TIDAC 10/19/20 duloxetine 60 mg PO BID 10/19/20 valacyclovir 500 mg PO DAILY 10/19/20 tizanidine 4 mg tablet 4 mg PO Q8H PRN 01/26/21 ascorbate calcium (vitamin C) 500 mg tablet 500 mg PO DAILY 01/27/21 calcium carbonate 600 mg-vitamin D3 12.5 mcg (500 unit) capsule 1 cap PO DAILY 01/27/21 magnesium oxide 400 mg PO DAILY 01/27/21 venlafaxine 150 mg PO QHS 02/04/21 Lactobacillus rhamnosus GG 10 billion cell capsule 1 cap PO DAILY 05/18/21 pregabalin 100 mg capsule 100 mg PO DAILY 05/18/21 carvedilol 25 mg tablet 25 mg PO BID 08/23/21 Entresto 1 tab PO BID 02/11/22 fluticasone propion-salmeterol [Advair Diskus] 1 inh INHALATION BID 02/11/22 venlafaxine 75 mg PO DAILY 02/11/22 alendronate 70 mg PO TU 02/13/22 cetirizine [Zyrtec] 10 mg PO DAILY 02/13/22 levothyroxine 100 mcg PO DAILY 02/13/22 zinc 50 mg PO DAILY 02/13/22 aspirin 81 mg PO DAILY@0800 02/15/22 hydralazine 25 mg PO TID 02/15/22 oxycodone 5 mg PO Q4H PRN PRN #0 tab 02/15/22 acetaminophen 1,000 mg PO Q8 #0 tab 02/21/22 Hospital Course Operations None Procedures None Summary of Care Provided Minutes Spent on Discharge: 35 Hospital Course: 61 year old female with below past medical history significant for recent right ankle fracture, hospitalized for acute delirium secondary to narcotic pain medications, urinary tract infection, acute kidney injury, dehydration, admitted to TCU with debility, here for rehabilitation, strengthening, prior to discharge home alone. 02/13/2022 Urine culture grew E. Coli, treated with 7 days of Cipro. 02/19/2022 Sputum culture grew staph aureus, diptheroid. Chest X-ray negative for pneumonia, cough unimpressive. Resident maybe colonized with s. 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 02/20/2022 Dr. Gold consulted for right ankle fracture, recommended non-surgical approach for now, follow up in 1 month. Discharge home alone 02/22/2022, [facility] Care PT/SN. Physical Exam Const alert General Appearance: cooperative HEENT normocephalic Eyes PERRL and EOMs intact bilaterally Neck supple, no JVD and no carotid bruits Resp normal respiratory effort, normal air movement and clear to auscultation bilaterally Cardio regular rate and regular rhythm GI normal to inspection, nondistended, normoactive bowel sounds, non-tender and non-distended Extremity normal capillary refill Extremity Narrative: Right lower extremity splint. General Extremity: Negative for edema Skin no rashes or lesions noted General Skin Exam: no breakdown Psych affect normal Appearance: appropriate Weight / BMI Weight Weight: 108.862 kg Body Mass Index (BMI) 43.9 ABG / Lab / Microbiology Data Result Diagrams: 02/18/22 11:25 02/18/22 11:25 Laboratory: Laboratory Results - last 24 hr 02/21/22 06:08: POC Glucose 110 H Microbiology: Microbiology 02/19/22 13:00 Sputum, Expectorated/Coughed Gram Stain - Final 02/19/22 13:00 Sputum, Expectorated/Coughed Respiratory Culture - Preliminary Staphylococcus aureus Gram positive jacqueline D/C Instructions Discharge Diet: No restrictions Discharge Activity: Return to Normal Activity, May Shower and Use Walker Weight Bearing Status: No weight bearing (Right lower extremity.) Call your doctor if you observe: Fever of 101 or Higher, Inability to urinate, Inability to have a bowel movement, Shortness of breath, Dizziness, Fainting spells, Swelling in the ankles, Chest pain and Uncontrolled pain Additional Instructions: Discharge home alone 02/22/2022, [facility] Care PT/SN. Please Follow Up With: Anay Gold DPM When: 1 month. Meaningful Use Info Meaningful Use Diagnoses (Choose all that apply): None applicable Discharge Plan Admission Admit Date/Time: 02/15/22 13:39 Primary Reason for Your Visit: Debility. Attending Provider: Wei Barry Chi Primary Care Provider: Brandon Torres Consulting Providers: Nilay Chatterjee Instructions Additional Instructions / Restrictions: Nonweightbearing right lower extremity. Keep splint clean, dry, and intact until follow-up at clinic. Use of assistive device. Elevate right lower extremity hourly while awake. Discharge home alone 02/22/2022, [facility] PT/SN. Discharge Orders/Prescriptions Prescriptions: New acetaminophen 500 mg Tablet 1,000 mg PO Q8 Qty: 0 RF: 0 Continued Januvia 50 mg tablet 50 mg PO DAILY RF: 0 rosuvastatin [Crestor] 20 mg tablet 20 mg PO QHS RF: 0 calcium carbonate-vitamin D3 [Calcium 600 with Vitamin D3] 600 mg(1,500mg) -500 unit capsule 1 cap PO DAILY RF: 0 magnesium oxide 400 mg magnesium capsule 400 mg PO DAILY RF: 0 ascorbate calcium (vitamin C) 500 mg tablet 500 mg PO DAILY RF: 0 tizanidine 4 mg tablet 4 mg PO Q8H PRN (Reason: Muscle Spasm) RF: 0 Culturelle 10 billion cell capsule 1 cap PO DAILY RF: 0 pregabalin 100 mg capsule 100 mg PO DAILY RF: 0 multivitamin 1 EACH tablet 1 ea PO DAILY RF: 0 pantoprazole 40 MG tablet 40 mg PO BID RF: 0 amitriptyline 25 MG tablet 25 mg PO QHS RF: 0 duloxetine 60 MG capsule 60 mg PO BID RF: 0 valacyclovir 500 MG tablet 500 mg PO DAILY RF: 0 dicyclomine 10 MG capsule 20 mg PO TIDAC RF: 0 venlafaxine 75 MG tablet 150 mg PO QHS RF: 0 venlafaxine 75 mg Tablet 75 mg PO DAILY RF: 0 fluticasone propion-salmeterol [Advair Diskus] 100-50 mcg/dose Blister With Device 1 inh INHALATION BID RF: 0 Entresto 49-51 mg Tablet 1 tab PO BID RF: 0 cetirizine [Zyrtec] 10 mg Tablet 10 mg PO DAILY RF: 0 zinc 50 mg Tablet 50 mg PO DAILY RF: 0 alendronate 70 MG tablet 70 mg PO TU RF: 0 levothyroxine 100 mcg tablet 100 mcg PO DAILY RF: 0 hydralazine 25 mg Tablet 25 mg PO TID RF: 0 oxycodone 5 mg Tablet 5 mg PO Q4H PRN PRN (Reason: Pain Score 6-10) Qty: 0 RF: 0 aspirin 81 MG tablet,delayed release (DR/EC) 81 mg PO DAILY@0800 RF: 0 carvedilol [Coreg] 25 mg tablet 25 mg PO BID RF: 0 Discontinued furosemide 40 mg tablet 20 - 40 mg PO DAILY PRN (Reason: diuretic) RF: 0 Hold Instructions: Resume on 03/01/22. acetaminophen 500 mg tablet 1,000 mg PO Q8 RF: 0 cephalexin 500 mg capsule 500 mg PO Q6 RF: 0 Referrals / Follow Up: Anay Gold DPM [STAFF PHYSICIAN] - See Referral Note (follow up 3 weeks or call sooner if questions or concerns; [phone]) Brandon Torres DO [Primary Care Provider] - In 1 Week Disposition Disposition (needs filled in before D/C Order can be placed): Home Health Service
[2022-02-21] MEDS: Atorvastatin Calcium 40 MG Tablet PO (21:25)
[2022-02-21] MEDS: Venlafaxine HCl 75 MG Tablet 150 MG PO (21:25)
[2022-02-21] MEDS: Amitriptyline 25 MG Tablet PO (21:25)
[2022-02-21 21:29] VITALS: BP 159/85; PULSE 86
[2022-02-21] MEDS: hydrALAZINE 25 MG Tablet PO (21:29)
[2022-02-22 06:16] LABS: Bedside Glucose 118 mg/dL (74-106)
[2022-02-22] MEDS: Acetaminophen 500 MG Tablet 1000 MG PO (06:34)
[2022-02-22] MEDS: Pregabalin 50 MG Capsule 100 MG PO (06:34)
[2022-02-22] MEDS: Acyclovir 200 MG Capsule 400 MG PO (06:34)
[2022-02-22] MEDS: Carvedilol 25 MG Tablet PO (06:35)
[2022-02-22] MEDS: Ciprofloxacin 250 MG Tablet PO (06:35)
[2022-02-22] MEDS: LINAGLIPTIN 5 MG TABLET PO (06:35)
[2022-02-22] MEDS: Pantoprazole Sodium 40 MG Tablet PO (06:35)
[2022-02-22] MEDS: Venlafaxine HCl 75 MG Tablet PO (06:35)
[2022-02-22] MEDS: Senna/Docusate Sodium 1 Tablet PO (06:35)
[2022-02-22] MEDS: Levothyroxine 100 MCG Tablet PO (06:35)
[2022-02-22] MEDS: Dicyclomine 10 MG Capsule 20 MG PO (06:35)
[2022-02-22] MEDS: Ascorbic Acid 500 MG Tablet PO (06:35)
[2022-02-22] MEDS: guaiFENesin 600 MG Tablet PO (06:35)
[2022-02-22] MEDS: Loratadine 10 MG Tablet PO (06:35)
[2022-02-22] MEDS: SACUBITRIL/VALSARTAN 49-51 MG TABLET 1 EACH PO (06:35)
[2022-02-22] MEDS: DULoxetine Hcl 60 MG Capsule PO (06:35)
[2022-02-22] MEDS: Magnesium Chloride 64 MG Delay Rel.Tablet 128 MG PO (06:35)
[2022-02-22 06:45] VITALS: BP 86/50; PULSE 71
[2022-02-22] MEDS: Fluticasone/Salmeterol 232-14 Inhaler 1 PUFF INHALATION (06:45)
[2022-02-22] MEDS: Nystatin Powder 15gm Bottle 1 APPLIC TOPICAL (06:45)
[2022-02-22] MEDS: Calcium Carb/Vitamin D 1 TABLET Tablet PO (08:26)
[2022-02-22] MEDS: Aspirin E.C. 81 MG Tablet PO (08:26)
[2022-02-22] MEDS: Multivitamins,Therapeutic Tablet 1 TABLET PO (08:26)
[2022-02-22] MEDS: oxyCODONE 5 MG Tablet PO (08:47)
[2022-02-22 09:15] VITALS: BP 127/67; PULSE 78; RESP 16; TEMP 36.5; O2SAT 98
--- NOTE | 2022-02-22 10:38 | CASEMGMT ---
Social Work BIMS and PHQ-9 completed for MDS assessment. Barby Christopher, HEALTH SOCIAL WORK PROFESSOR [employer]OTHERMAL HVAC TECHNICIAN
--- NOTE | 2022-02-24 09:14 | MDS.RN ---
Information for the mds was obtained from review of the clinical record, interview of resident, staff, and direct observation of resident's care.
== END 2022-02-22 09:45 | disposition home health service (06) | DRG 559 ==
PROVIDERS: Podiatrist; Admitting Provider Family Medicine Geriatric Medicine; PCP Student in an Organized Health Care Education/Training Program; Visit Provider Family Medicine Geriatric Medicine
DX: S82.891D Other fracture of right lower leg, subsequent encounter for closed fracture with routine healing (principal); G92.9 Unspecified toxic encephalopathy; I42.8 Other cardiomyopathies; I13.0 Hypertensive heart and chronic kidney disease with heart failure and stage 1 through stage 4 chronic kidney disease, or unspecified chronic kidney disease; N39.0 Urinary tract infection, site not specified; I50.22 Chronic systolic (congestive) heart failure; E11.22 Type 2 diabetes mellitus with diabetic chronic kidney disease; B96.20 Unspecified Escherichia coli [E. coli] as the cause of diseases classified elsewhere; B00.9 Herpesviral infection, unspecified; E03.9 Hypothyroidism, unspecified; E11.51 Type 2 diabetes mellitus with diabetic peripheral angiopathy without gangrene; J44.9 Chronic obstructive pulmonary disease, unspecified; E11.42 Type 2 diabetes mellitus with diabetic polyneuropathy; N18.30 Chronic kidney disease, stage 3 unspecified; E78.5 Hyperlipidemia, unspecified; K58.9 Irritable bowel syndrome, unspecified; M62.838 Other muscle spasm; K21.9 Gastro-esophageal reflux disease without esophagitis; E53.8 Deficiency of other specified B group vitamins; I25.10 Atherosclerotic heart disease of native coronary artery without angina pectoris; Z79.84 Long term (current) use of oral hypoglycemic drugs; F32.A Depression, unspecified; Z87.891 Personal history of nicotine dependence; Z79.83 Long term (current) use of bisphosphonates; Z79.899 Other long term (current) drug therapy; Z79.51 Long term (current) use of inhaled steroids; Z79.890 Hormone replacement therapy; Z79.82 Long term (current) use of aspirin; T40.605A Adverse effect of unspecified narcotics, initial encounter; X58.XXXD Exposure to other specified factors, subsequent encounter
CPT/HCPCS: 36415; 71046; 80048; 82306; 82962; 85025; 87070; 87077; 87186; 87205; 97110; 97162; 97166; 97530; 97535; 97542; 97802

== ENCOUNTER 2022-03-09 04:21 | Emergency (ER) | payer MEDICARE, MEDICAID, SELFPAY ==
[2022-03-09 04:25] VITALS: BP 96/46; PULSE 73; RESP 18; TEMP 36.1; O2SAT 98; BMI 45.3
[2022-03-09 04:37] VITALS: BMI 45.3
[2022-03-09 04:46] LABS: Bedside Glucose 111 mg/dL (74-106)
--- NOTE | 2022-03-09 04:50 | CT_ITS ---
EXAM: CT cervical spine. HISTORY: Cervical radiculopathy TECHNIQUE: No intravenous contrast. COMPARISON: None. LIMITATIONS: None. FRACTURES: None. SPINAL CANAL: No significant stenosis. DEGENERATIVE CHANGE: Moderate degenerative change including large bridging anterior osteophytes with multilevel moderate neural foraminal narrowing. SOFT TISSUE: Normal. OTHER: None. CONCLUSION: No acute fracture. Moderate degenerative changes. Electronically Signed: Shoaib Merlos MD at 5:36 EDT , CT/Spine Cervical without Contras IMPRESSION: undefined
[2022-03-09 04:58] LABS: Absolute Lymphocyte Count 1.34 X10^3/uL (0.83-4.51); Absolute Neutrophil Count 3.8 X10^3/uL (2.0-7.7); Basophil# 0.03 X10^3/uL; Basophil% 0.5 % (0-1); Eosinophil# 0.28 X10^3/uL; Eosinophils% 4.7 % (0-5); Hematocrit 27.5 % (37-47); Hemoglobin 8.6 g/dL (12.0-15.0); Lymphocyte # 1.34 X10^3/ul (0.83-4.51); Lymphocyte % 22.6 % (19-41); Mean Corp Hgb Conc 31.3 g/dL (32-36); Mean Corpuscular Volume 95.8 fL (81-99); Mean Platelet Vol. 9.7 fl (6.2-12.0); Monocyte% 6.7 % (0-10); NRBC Flagged by Analyzer 0 % (0-5); Neutrophil # 3.82 X10^3/uL (2.7-7.7); Neutrophil % 64.5 % (47-70); Platelet Count 176 K/mm3 (150-450); RBC Distribution Width CV 14.6 % (11.6-14.6); RBC Distribution Width SD 50.9 fl (35.1-43.9); Red Blood Count 2.87 M/mm3 (4.2-5.4); White Blood Count 5.9 K/mm3 (4.4-11.0)
--- NOTE | 2022-03-09 05:04 | EDS_ITS ---
HPI History of Present Illness Chief Complaint: Neuro S/Sx Narrative Narrative: Patient is a 61-year-old female with a complex past medical history. She was seen in the ER few weeks ago and had a broken ankle. She states because of this she will occasionally sleep in her wheelchair. Patient states she was sleeping in her wheelchair last night and she awoke and she noticed some numbness tingling weakness in her left arm mainly from the forearm down to the hand. She states she does have a past medical history of stroke and therefore was concerned for this and called EMS. EMS states that when they arrived they had a negative [place] stroke scale. Upon arrival to the ER patient states that something just felt off but could not articulate what that was any further. She does state that she is having spontaneous improvement of her symptoms however since arrival to the hospital. PFSH [facility] Medical History ACTH deficiency Acute respiratory failure with hypoxia Allergic rhinitis Anemia Asthma Asthma exacerbation Atherosclerosis of coronary artery without angina pectoris Bilateral leg weakness Bone fracture Cardiomyopathy Carotid artery stenosis Carpal tunnel syndrome Chronic constipation with suspected IBS Chronic headaches Chronic systolic (congestive) heart failure CKD (chronic kidney disease) stage 3, GFR 30-59 ml/min Debility Essential hypertension Falls Flash pulmonary edema (01/16/21) Gait difficulty Gallstones GERD (gastroesophageal reflux disease) GI problem Herpes simplex History of Clostridium difficile infection History of CVA (cerebrovascular accident) (2018) History of depression History of emotional problems History of ischemic colitis Hx of diverticulitis of colon Hyperlipidemia Hypertension Hypotension Hypothyroidism Irritable bowel syndrome Kidney disease Neuropathy Non-ischemic cardiomyopathy Normochromic normocytic anemia Obesity Osteoarthritis Osteopenia Osteoporosis Peripheral vascular disease Pulmonary edema Right hemiparesis Seasonal allergies Secondary adrenal insufficiency Stomach ulcer Stroke/cerebrovascular accident Trigeminal trophic syndrome Type 2 diabetes mellitus Home Medications multivitamin 1 ea PO DAILY 12/29/17 [History Last Taken 02/12/22] pantoprazole 40 mg PO BID 03/29/19 [History Last Taken 02/12/22] amitriptyline 25 mg PO QHS 08/10/19 [History Last Taken 02/12/22] rosuvastatin 20 mg tablet 20 mg PO QHS 08/25/19 [History Last Taken 02/12/22] sitagliptin 50 mg tablet 50 mg PO DAILY 09/04/19 [History Last Taken 02/12/22] dicyclomine 20 mg PO TIDAC 10/19/20 [History Last Taken 02/12/22] duloxetine 60 mg PO BID 10/19/20 [History Last Taken 02/12/22] valacyclovir [Valtrex] 500 mg PO DAILY 10/19/20 [History Last Taken 02/12/22] tizanidine 4 mg tablet 4 mg PO Q8H PRN 01/26/21 [History Last Taken 02/12/22] ascorbate calcium (vitamin C) 500 mg tablet 500 mg PO DAILY 01/27/21 [History Last Taken 02/12/22] calcium carbonate 600 mg-vitamin D3 12.5 mcg (500 unit) capsule 1 cap PO DAILY 01/27/21 [History Last Taken 02/12/22] magnesium oxide 400 mg PO DAILY 01/27/21 [History Last Taken 02/12/22] venlafaxine 150 mg PO QHS 02/04/21 [History Last Taken 02/12/22] Lactobacillus rhamnosus GG 10 billion cell capsule 1 cap PO DAILY 05/18/21 [History Last Taken 02/12/22] pregabalin 100 mg capsule 100 mg PO DAILY 05/18/21 [History Last Taken 02/12/22] carvedilol 25 mg tablet 25 mg PO BID 08/23/21 [History Last Taken 02/12/22] Entresto 1 tab PO BID 02/11/22 [History Last Taken 02/12/22] fluticasone propion-salmeterol [Advair Diskus] 1 inh INHALATION BID 02/11/22 [History Last Taken 02/12/22] venlafaxine 75 mg PO DAILY 02/11/22 [History Last Taken 02/12/22] alendronate 70 mg PO TU 02/13/22 [History Last Taken 02/07/22] cetirizine [Zyrtec] 10 mg PO DAILY 02/13/22 [History Last Taken 02/12/22] levothyroxine 100 mcg PO DAILY 02/13/22 [History Last Taken 02/12/22] zinc 50 mg PO DAILY 02/13/22 [History Last Taken 02/12/22] aspirin 81 mg PO DAILY@0800 02/15/22 [History Last Taken Unknown] oxycodone 5 mg PO Q4H PRN PRN #0 tab 02/15/22 [Rx Last Taken Unknown] acetaminophen 1,000 mg PO Q8 #0 tab 02/21/22 [Rx Last Taken Unknown] Allergy/AdvReac Type Severity Reaction Status Date / Time adhesive Allergy skin Verified 02/13/22 13:32 irritation amlodipine [From Norvasc] Allergy tachycardia Verified 02/13/22 13:32 hydromorphone HCl Allergy Itching Verified 02/13/22 13:32 [From Dilaudid] sulfamethoxazole Allergy made my Verified 02/13/22 13:32 [From Bactrim] cold sore huge trimethoprim [From Bactrim] Allergy made my Verified 02/13/22 13:32 cold sore huge Family History Grandfather Alcoholism Grandmother Myocardial infarction Mother Arthritis Diverticulitis COPD (chronic obstructive pulmonary disease) Afib Thyroid disorder Father Arthritis Diabetes Myocardial infarction Heart disease Ischemic Hypertension Hyperlipidemia Brother Arthritis Aunt Breast cancer Sister Arthritis Thyroid disorder Skin cancer Uncle Diabetes Surgical History Ankle fracture Fracture of left femur History of angioplasty of peripheral vessel (2010) History of arthroscopic knee surgery History of back surgery History of bilateral knee replacement History of carpal tunnel release History of cholecystectomy History of intestine removal History of left heart catheterization (2011) History of tonsillectomy and adenoidectomy History of trigger finger History of ventral hernia repair Strangulated ventral hernia Social History (Updated 02/15/22 @ 19:[address] Wei Barry MD) household members: none Smoking Status: Former smoker how long ago did patient quit smokin alcohol intake: never substance use type: does not use what type of physical activity do you participate in: other ROS ROS ED Constitutional Constitutional ED: Denies chills or fever(s) ENT ENT ED: Denies sore throat Cardiovascular Cardiovascular: Denies chest pain Respiratory/Chest Respiratory/Chest: Denies cough or dyspnea Gastrointestinal Gastrointestinal: Denies abdominal pain, diarrhea, nausea or vomiting Genitourinary Genitourinary ED: Denies dysuria Musculoskeletal Musculoskeletal: Denies back pain, myalgias or neck pain Integumentary Denies rash Neurologic Neurologic: Reports paresthesias; Denies headache(s) Psychiatric Psychiatric: Reports anxiety Hematologic/Lymphatic Hematologic/Lymphatic: Denies easy bleeding or easy bruising EXAM Physical Exam Const Vital Signs: 03/09/22 04:25 03/09/22 06:02 Temperature 96.9 F L Temperature Source Temporal Pulse Rate 73 75 Respiratory Rate 18 14 Blood Pressure 96/46 L 127/72 H Blood Pressure Mean 62 90 Pulse Ox 98 97 Oxygen Delivery Method Room Air Room Air Positive well nourished, well developed and obese General Appearance ED: well developed and pallor Nutritional Appearance: obese HEENT Reports dry mucous membranes Mouth ED: Yes dry mucous membranes Mouth: dry mucous membranes Eyes PERRL and EOMs intact bilaterally General Eye ED: Yes pale conjunctiva Neck supple Neck Narrative: No bony deformity or step-off of the cervical spine no midline pain with palpation. Negative Spurling exam bilateral Resp normal respiratory effort and clear to auscultation bilaterally Cardio regular rate and regular rhythm Rate: other Other Details: Radial pulses are plus 2 out of 4 bilaterally are equal and symmetric GI normal to inspection, nondistended, normoactive bowel sounds, non-tender, non-distended and no masses Auscultation: normoactive bowel sounds Palpation: soft Extremity Extremity Narrative: Left upper extremity is neurovascularly intact; AIN/PIN are intact and normal. There is no wrist drop noted. No obvious bony deformity or joint effusions Neuro oriented x3 and CN's II-XII intact bilaterally Neuro Narrative: Cranial nerves II through XII are grossly intact. There is no obvious focal neurologic deficit. Patient has equal strength of bilateral upper and lower extremity. Patient reported decreased sensation prior to arrival but with stressing of the face arms and legs sensation is intact and equal bilateral. Patient has an NIH stroke scale score of 0. Sensorium / Orientation: alert Motor Exam: strength 5/5 throughout Psych Psych Narrative: Patient has a nervous/anxious affect Mood & Affect: anxious Skin no rashes or lesions noted Skin Narrative: Skin is pale in color which is chronic per patient as she has a history of chronic anemia and capillary refill is less than 3 seconds General Skin Exam: pallor MDM MDM MDM Narrative Medical decision making narrative: Patient presented to the ER with a negative [place] stroke scale by EMS as well as a stroke scale score of 0 in the ER and reported spontaneous resolution of her symptoms. As she stated that she was sleeping in her wheelchair and had mainly irritation of the left arm from the forearm down to hand I felt this was most likely related to radial nerve irritation. I did elect to check basic laboratory studies because of possibility of electrolytes leading to the symptoms and the fact she has chronic anemia to ensure she is at her baseline. There is also a chance this could be related to cervical radiculopathy so a CT of the cervical spine was ordered. Labs showed chronic anemia with hemoglobin of 8.6 and labs did show dehydration with creatinine elevated at 1.6 when the last value was 0.81. However electrolytes were within normal values. The CT showed degenerative changes without obvious nerve impingement. On reevaluation her stroke scale score remains 0 and as she has been hydrated and her hemoglobin is at her baseline do not feel there is need for admission and she is otherwise safe for discharge Lab Data Attestation: I reviewed the patient's lab results. Labs: Laboratory Results - last 24 hr 03/09/22 03/09/22 03/09/22 04:30 04:30 04:41 WBC 5.9 RBC 2.87 L Hgb 8.6 L Hct 27.5 L MCV 95.8 MCH 30.0 MCHC 31.3 L RDW Std Deviation 50.9 H RDW Coeff of Lencho 14.6 Plt Count 176 MPV 9.7 Immature Gran % (Auto) 1.000 H Neut % (Auto) 64.5 Lymph % (Auto) 22.6 Mccracken % (Auto) 6.7 Eos % (Auto) 4.7 Baso % (Auto) 0.5 Absolute Neuts (auto) 3.8 Absolute Lymphs (auto) 1.34 Nucleated RBC % 0 Sodium 136 Potassium 4.8 Chloride 107 Carbon Dioxide 21.0 Anion Gap 8 BUN 24 H Creatinine 1.59 H Estim Creat Clear Calc 29.39 Est GFR (MDRD) Af Amer 42 L Est GFR (MDRD) Non-Af 35 L BUN/Creatinine Ratio 15.1 Glucose 109 H Calcium 9.2 Magnesium 1.6 POC Glucose 111 H Radiography Diagnostic Testing: Clinical Impression(s) from Imaging Studies Cervical Spine CT 03/09/22 04:50 IMPRESSION: undefined Discharge Plan Triage Chief Complaint: Neuro S/Sx ED Provider: Maldonado Nina Dx/Rx/DC Orders Clinical Impression: Radial nerve compression, Dehydration, Chronic anemia Instructions: Dehydration, ED Radial Nerve Palsy Prescriptions: No Action Januvia 50 mg tablet 50 mg PO DAILY RF: 0 rosuvastatin [Crestor] 20 mg tablet 20 mg PO QHS RF: 0 calcium carbonate-vitamin D3 [Calcium 600 with Vitamin D3] 600 mg(1,500mg) - 500 unit capsule 1 cap PO DAILY RF: 0 magnesium oxide 400 mg magnesium capsule 400 mg PO DAILY RF: 0 ascorbate calcium (vitamin C) 500 mg tablet 500 mg PO DAILY RF: 0 tizanidine [Zanaflex] 4 mg tablet 4 mg PO Q8H PRN (Reason: Muscle Spasm) RF: 0 Culturelle 10 billion cell capsule 1 cap PO DAILY RF: 0 pregabalin 100 mg capsule 100 mg PO DAILY RF: 0 multivitamin 1 EACH tablet 1 ea PO DAILY RF: 0 pantoprazole 40 MG tablet 40 mg PO BID RF: 0 amitriptyline 25 MG tablet 25 mg PO QHS RF: 0 duloxetine 60 MG capsule 60 mg PO BID RF: 0 valacyclovir [Valtrex] 500 MG tablet 500 mg PO DAILY RF: 0 dicyclomine 10 MG capsule 20 mg PO TIDAC RF: 0 venlafaxine 75 MG tablet 150 mg PO QHS RF: 0 venlafaxine 75 mg Tablet 75 mg PO DAILY RF: 0 fluticasone propion-salmeterol [Advair Diskus] 100-50 mcg/dose Blister With Device 1 inh INHALATION BID RF: 0 Entresto 49-51 mg Tablet 1 tab PO BID RF: 0 cetirizine [Zyrtec] 10 mg Tablet 10 mg PO DAILY RF: 0 zinc 50 mg Tablet 50 mg PO DAILY RF: 0 alendronate 70 MG tablet 70 mg PO TU RF: 0 levothyroxine 100 mcg tablet 100 mcg PO DAILY RF: 0 oxycodone 5 mg Tablet 5 mg PO Q4H PRN PRN (Reason: Pain Score 6-10) Qty: 0 RF: 0 aspirin 81 MG tablet,delayed release (DR/EC) 81 mg PO DAILY@0800 RF: 0 acetaminophen 500 mg Tablet 1,000 mg PO Q8 Qty: 0 RF: 0 carvedilol [Coreg] 25 mg tablet 25 mg PO BID RF: 0 Primary Care Provider: Brandon Torres Referrals: Brandon Torres DO [Primary Care Provider] - Disposition Disposition: Home, Self Care
[2022-03-09 05:26] LABS: Anion Gap 8 (5-15); BUN 24 mg/dL (7-18); BUN/Creat Ratio 15.1 RATIO (10-20); Calcium,Total 9.2 mg/dL (8.5-10.1); Chloride 107 mmol/L (98-107); Creatinine, Serum 1.59 mg/dL (0.55-1.02); EST Glomerular Filtration Rate 35 mL/min (>60); Est Glom Filt Rate - Afr Amer 42 mL/min (>60); Estimated Creatinine Clearance 29.39 ml/min; Glucose 109 mg/dL (74-106); Magnesium 1.6 mg/dL (1.6-2.6); Potassium 4.8 mmol/L (3.5-5.1); Sodium Level 136 mmol/L (136-145)
[2022-03-09] MEDS: 0.9% Normal Saline 1,000 ML 999 ML IV (06:01)
[2022-03-09 06:02] VITALS: BP 127/72; PULSE 75; RESP 14; O2SAT 97
== END 2022-03-09 08:37 | disposition home or self-care (01) ==
PROVIDERS: Emergency Provider Emergency Medicine; PCP Student in an Organized Health Care Education/Training Program; Visit Provider Emergency Medicine
DX: G56.32 Lesion of radial nerve, left upper limb (principal); E11.51 Type 2 diabetes mellitus with diabetic peripheral angiopathy without gangrene; I50.22 Chronic systolic (congestive) heart failure; I13.0 Hypertensive heart and chronic kidney disease with heart failure and stage 1 through stage 4 chronic kidney disease, or unspecified chronic kidney disease; I42.8 Other cardiomyopathies; E11.40 Type 2 diabetes mellitus with diabetic neuropathy, unspecified; E11.22 Type 2 diabetes mellitus with diabetic chronic kidney disease; Z68.42 Body mass index [BMI] 45.0-49.9, adult; N18.30 Chronic kidney disease, stage 3 unspecified; E86.0 Dehydration; D64.9 Anemia, unspecified; J45.909 Unspecified asthma, uncomplicated; I25.10 Atherosclerotic heart disease of native coronary artery without angina pectoris; Z87.19 Personal history of other diseases of the digestive system; Z86.73 Personal history of transient ischemic attack (TIA), and cerebral infarction without residual deficits; K21.9 Gastro-esophageal reflux disease without esophagitis; K58.9 Irritable bowel syndrome, unspecified; E66.9 Obesity, unspecified; M81.0 Age-related osteoporosis without current pathological fracture; Z79.899 Other long term (current) drug therapy; Z79.82 Long term (current) use of aspirin; Z87.891 Personal history of nicotine dependence
CPT/HCPCS: 72125; 80048; 82962; 83735; 85025; 96360; 96361; 99284; J7030; A4216

== ENCOUNTER 2022-09-08 00:51 | Inpatient (IN) | payer MEDICARE, MEDICAID, SELFPAY ==
[2022-09-08] VITALS (23 sets, daily range): BP systolic 98–182; BP diastolic 54–107; PULSE 65–119; RESP 12–18; TEMP 36.6–37.1; O2SAT 95–100; BMI 44.4; BMI 43.4
--- NOTE | 2022-09-08 01:09 | EDS_ITS ---
HPI History of Present Illness Chief Complaint: Neuro S/Sx Narrative Narrative: 61-year-old female here for bilateral arm numbness. Last known well 11 PM approximately 2 and half hours prior to arrival. Patient states she is got a rubbery, empty sensation bilateral upper arms. States symptoms are constant, severe without alleviating factors. Denies any head trauma recent falls. Denies any headache. Denies any chest pain or shortness of breath. [facility] Medical History ACTH deficiency Acute respiratory failure with hypoxia Allergic rhinitis Anemia Asthma Asthma exacerbation Atherosclerosis of coronary artery without angina pectoris Bilateral leg weakness Bone fracture Cardiomyopathy Carotid artery stenosis Carpal tunnel syndrome Chronic constipation with suspected IBS Chronic headaches Chronic systolic (congestive) heart failure CKD (chronic kidney disease) stage 3, GFR 30-59 ml/min Debility Essential hypertension Falls Flash pulmonary edema (01/16/21) Gait difficulty Gallstones GERD (gastroesophageal reflux disease) GI problem Herpes simplex History of Clostridium difficile infection History of CVA (cerebrovascular accident) (2018) History of depression History of emotional problems History of ischemic colitis Hx of diverticulitis of colon Hyperlipidemia Hypertension Hypotension Hypothyroidism Irritable bowel syndrome Kidney disease Neuropathy Non-ischemic cardiomyopathy Normochromic normocytic anemia Normocytic anemia Obesity Osteoarthritis Osteopenia Osteoporosis Peripheral vascular disease Pulmonary edema Right hemiparesis Seasonal allergies Secondary adrenal insufficiency Stomach ulcer Stroke/cerebrovascular accident Trigeminal trophic syndrome Type 2 diabetes mellitus Home Medications multivitamin 1 ea PO DAILY vitamin 12/29/17 [History Last Taken 02/12/22] pantoprazole 40 mg tablet,delayed release 40 mg PO BID GERD 03/29/19 [History Last Taken 02/12/22] amitriptyline 25 mg tablet 25 mg PO QHS mood 08/10/19 [History Last Taken 02/12/22] rosuvastatin 20 mg tablet (Crestor) 20 mg PO QHS cholesterol 08/25/19 [History Last Taken 02/12/22] sitagliptin phosphate 50 mg tablet (Januvia) 50 mg PO DAILY diabetes 09/04/19 [History Last Taken 02/12/22] dicyclomine 10 mg capsule 20 mg PO TIDAC cramping 10/19/20 [History Last Taken 02/12/22] duloxetine 60 mg capsule,delayed release 60 mg PO BID nerve pain 10/19/20 [History Last Taken 02/12/22] valacyclovir 500 mg tablet (Valtrex) 500 mg PO DAILY cold soars 10/19/20 [History Last Taken 02/12/22] tizanidine 4 mg tablet (Zanaflex) 4 mg PO Q8H PRN Muscle Spasm 01/26/21 [History Last Taken 02/12/22] ascorbate calcium (vitamin C) 500 mg tablet 500 mg PO DAILY vitamin 01/27/21 [History Last Taken 02/12/22] calcium carbonate 600 mg-vitamin D3 12.5 mcg (500 unit) capsule (Calcium 600 with Vitamin D3) 1 cap PO DAILY supplement 01/27/21 [History Last Taken 02/12/22] magnesium oxide 400 mg PO DAILY supplement 01/27/21 [History Last Taken 02/12/22] venlafaxine 75 mg tablet 150 mg PO QHS depression 02/04/21 [History Last Taken 02/12/22] Lactobacillus rhamnosus GG 10 billion cell capsule (Culturelle) 1 cap PO DAILY 05/18/21 [History Last Taken 02/12/22] pregabalin 100 mg capsule 100 mg PO DAILY Nerve pain 05/18/21 [History Last Taken 02/12/22] carvedilol 25 mg tablet (Coreg) 25 mg PO BID BP 08/23/21 [History Last Taken 02/12/22] fluticasone 100 mcg-salmeterol 50 mcg/dose blistr powdr for inhalation (Advair Diskus) 1 inh inhalation BID Breathing 02/11/22 [History Last Taken 02/12/22] sacubitril 49 mg-valsartan 51 mg tablet (Entresto) 1 tab PO BID Heart 02/11/22 [History Last Taken 02/12/22] venlafaxine 75 mg tablet 75 mg PO DAILY Depression 02/11/22 [History Last Taken 02/12/22] alendronate 70 mg tablet 70 mg PO TU BONES 02/13/22 [History Last Taken 02/07/22] cetirizine 10 mg tablet (Zyrtec) 10 mg PO DAILY ALLERGIES 02/13/22 [History Last Taken 02/12/22] aspirin 81 mg tablet,delayed release 81 mg PO DAILY@0800 Heart health 02/15/22 [History Last Taken Unknown] levothyroxine 114 mcg PO/SL DAILY 05/10/22 [History Last Taken Unknown] zinc 50 mg PO/SL DAILY 05/10/22 [History Last Taken Unknown] hydrocodone 7.5 mg-acetaminophen 325 mg tablet 1 tab PO Q6H PRN Pain 06/19/22 [History Last Taken Unknown] Allergy/AdvReac Type Severity Reaction Status Date / Time adhesive Allergy skin Verified 09/08/22 00:53 irritation amlodipine [From Norvasc] Allergy tachycardia Verified 09/08/22 00:53 hydromorphone HCl Allergy Itching Verified 09/08/22 00:53 [From Dilaudid] sulfamethoxazole Allergy made my Verified 09/08/22 00:53 [From Bactrim] cold sore huge trimethoprim [From Bactrim] Allergy made my Verified 09/08/22 00:53 cold sore huge Family History Grandfather Alcoholism Grandmother Myocardial infarction Mother Arthritis Diverticulitis COPD (chronic obstructive pulmonary disease) Afib Thyroid disorder Father Arthritis Diabetes Myocardial infarction Heart disease Ischemic Hypertension Hyperlipidemia Brother Arthritis Aunt Breast cancer Sister Arthritis Thyroid disorder Skin cancer Uncle Diabetes Surgical History Ankle fracture Fracture of left femur History of angioplasty of peripheral vessel (2010) History of arthroscopic knee surgery History of back surgery History of bilateral knee replacement History of carpal tunnel release History of cholecystectomy History of intestine removal History of left heart catheterization (2011) History of tonsillectomy and adenoidectomy History of trigger finger History of ventral hernia repair Strangulated ventral hernia Social History household members: none Smoking Status: Former smoker how long ago did patient quit smokin alcohol intake: never substance use type: does not use what type of physical activity do you participate in: other ROS ROS ED ROS Narrative Constitutional: Denies fever HEENT: Denies sore throat Neck: Denies neck pain Cardiovascular: Denies chest pain, syncope Respiratory: Denies shortness of breath GI: Denies nausea vomiting or abdominal pain : Denies changes in urinary habits Musculoskeletal: Denies muscle or joint pain Neurologic: Endorses numbness Skin denies rash EXAM Physical Exam Narrative Exam Narrative: Nursing triage notes reviewed, Vital signs reviewed Constitutional: please see mdm HENT: dry oral mucosa Eyes: Pupils equal round and reactive to light, Extraocular muscles intact Neck: No stridor, no JVD, full neck ROM Lungs: Clear to auscultation, No wheezing or rales. No increased work of breathing, no conversational dyspnea, no accessory muscle use, no nasal flaring. No respiratory distress noted Heart: Regular rate and rhythm, No murmurs, No rubs and No gallops, 2+ distal pulses (radial, femoral, posterior tibial) in all extremities Abdomen: Soft, there is no tenderness, rigidity, rebound or guarding, no obvious peritoneal signs, no palpable pulsatile abdominal masses, no auscultated abdominal bruit : No CVAT Extremities: No edema Neuro: Alert and oriented x3, visual basurto intact, extraocular muscle intact, pupils are equal and reactive to light bilaterally. Right arm weakness (4/5), right arm ataxia, decreased sensation in the right arm. Intact strength, sensation in all other extremities. no facial droop, no slurred speech, no aphasia. No loss of vision. NIH of 3 Skin: No rash or lesions noted Const Vital Signs: 09/08/22 00:53 09/08/22 01:50 09/08/22 02:00 Temperature 98.0 F Temperature Source Oral Pulse Rate 74 78 Respiratory Rate 15 18 Blood Pressure 139/107 H 100/57 L Blood Pressure Mean 117 71 Pulse Ox 98 99 Oxygen Delivery Method Room Air Room Air Room Air 09/08/22 02:00 09/08/22 01:45 09/08/22 02:30 Temperature Temperature Source Pulse Rate 76 77 75 Respiratory Rate 18 16 12 Blood Pressure 98/54 L 98/54 L 104/55 L Blood Pressure Mean 68 68 71 Pulse Ox 99 99 96 Oxygen Delivery Method Room Air Room Air Room Air [facility] MDM Narrative Medical decision making narrative: 61-year-old female here with acute onset of what she describes as bilateral arm numbness however on exam she had right arm weakness, decree sensation, ataxia and drift. Last known well 2 and half hours prior to arrival. Within the tPA window. Activated a stroke team immediately after initial NIH was 3. Did consult stroke neurology immediately as well. Sent the patient directly to CT scanner for CT scan without contrast as well as a CTA of the head and neck with contrast imaging was remarkable for no acute process, no large vessel occlusion. After CT I reevaluate the patient. State her sensory deficits are getting better she had no drift on repeat exam still had ataxia. NIH was 2 for sensory and ataxia. Stroke neurologist (Dr. Chery) who examined the patient as well recommended no tPA. Did have a long shared decision making discussion with the patient as well. She did NOT feel comfortable with gettting at this time. Shared decision making: I had a long discussion with the patient and or visitors regarding risk/benefits of emergent CVA treatment with tPA. The patient made the informed decision to forego tPA at this time. The patient is aware of of the risk/benefits inherent in this decision and have voiced understanding. Lab Data Attestation: I reviewed the patient's lab results. Lab results narrative: CBC without leukocytosis, severe anemia, no thrombocytopenia. Coagulation factors not evidence BMP with mild hypokalemia, no anion gap, no acute kidney injury Troponin is negative, no evidence of myocardial ischemia Labs: Laboratory Results - last 24 hr 09/08/22 09/08/22 09/08/22 01:00 01:00 01:00 WBC 7.1 RBC 2.81 L Hgb 8.7 L Hct 27.2 L MCV 96.8 MCH 31.0 MCHC 32.0 RDW Std Deviation 49.6 H RDW Coeff of Lencho 14.1 Plt Count 225 MPV 9.9 Immature Gran % (Auto) 0.400 Neut % (Auto) 59.1 Lymph % (Auto) 28.5 [place] % (Auto) 6.7 Eos % (Auto) 4.5 Baso % (Auto) 0.8 Absolute Neuts (auto) 4.2 Absolute Lymphs (auto) 2.01 Nucleated RBC % 0 PT 13.1 INR 1.0 APTT 30.3 Sodium 140 Potassium 3.2 L Chloride 106 Carbon Dioxide 25.0 Anion Gap 9 BUN 15 Creatinine 1.11 H Estim Creat Clear Calc 42.09 Est GFR (MDRD) Af Amer 64 Est GFR (MDRD) Non-Af 53 L BUN/Creatinine Ratio 13.5 Glucose 141 H Calcium 8.9 Troponin I High Sens 11 TSH 09/08/22 01:00 WBC RBC Hgb Hct MCV MCH MCHC RDW Std Deviation RDW Coeff of Lencho Plt Count MPV Immature Gran % (Auto) Neut % (Auto) Lymph % (Auto) [place] % (Auto) Eos % (Auto) Baso % (Auto) Absolute Neuts (auto) Absolute Lymphs (auto) Nucleated RBC % PT INR APTT Sodium Potassium Chloride Carbon Dioxide Anion Gap BUN Creatinine Estim Creat Clear Calc Est GFR (MDRD) Af Amer Est GFR (MDRD) Non-Af BUN/Creatinine Ratio Glucose Calcium Troponin I High Sens TSH 1.29 Radiography Chest X-Ray - ED: Read by ED Physician Diagnostic Testing: Clinical Impression(s) from Imaging Studies Brain CT 09/08/22 01:31 IMPRESSION: Small infarct at left occipitoparietal watershed region with features suggesting possible subacute or early chronic age. MRI would be more sensitive for detection of acute ischemia in this setting. Follow-up as clinically warranted. Small chronic-appearing right cerebellar lacunar infarct. Electronically Signed: Eliseo Washington MD at 1:57 EDT , ADDENDUM: 09/08/22 0206 IMPRESSION: Small infarct at left occipitoparietal watershed region with features suggesting possible subacute or early chronic age. MRI would be more sensitive for detection of acute ischemia in this setting. Follow-up as clinically warranted. Small chronic-appearing right cerebellar lacunar infarct. N.B. : The above Results were Read Back by Eliseo Washington MD to Dr. Johanny MD, and understanding confirmed on 09/08/2022 01:59:43 (ET). Electronically Signed: Eliseo Washington MD at 1:57 EDT , Chest X-Ray 09/08/22 01:31 IMPRESSION: Right upper lobe opacity, concerning for infection. Following clinical improvement repeat CT chest is recommended to exclude underlying malignancy. Electronically Signed: Haja Dong MD at 2:48 EDT , Head/Neck CTA 09/08/22 01:31 IMPRESSION: 1. Atherosclerotic plaque resulting in approximately 70% stenosis at origin of right internal carotid artery. Also described in previous report. Otherwise, no evidence of acute arterial occlusive disease within head or neck. 2. Partial consolidation and volume loss right upper lobe with scattered small acute versus chronic postinfectious changes. Abnormal appearance of right upper lobe described in previous chest CT report. However, paratracheal mediastinal adenopathy was not described in previous report. Possible reactive to infectious process or malignancy. Clinical correlation and dedicated follow-up recommended. Electronically Signed: Eliseo Washington MD at 2:21 EDT , ADDENDUM: 09/08/22 0229 IMPRESSION: 1. Atherosclerotic plaque resulting in approximately 70% stenosis at origin of right internal carotid artery. Also described in previous report. Otherwise, no evidence of acute arterial occlusive disease within head or neck. 2. Partial consolidation and volume loss right upper lobe with scattered small acute versus chronic postinfectious changes. Abnormal appearance of right upper lobe described in previous chest CT report. However, paratracheal mediastinal adenopathy was not described in previous report. Possible reactive to infectious process or malignancy. Clinical correlation and dedicated follow-up recommended. N.B. : The above Results were Read Back by Eliseo Washington MD to Dr. Johanny MD, and understanding confirmed on 09/08/2022 02:22:09 (ET). Electronically Signed: Eliseo Washington MD at 2:21 EDT , EKG Initial EKG: Attestation: I personally reviewed and interpreted this EKG as follows: Comments: EKG with normal sinus rhythm, normal axis, normal intervals, no STEMI, no afib. Treatment and Re-Evaluation Narrative: Given focal neurologic deficit, subacute infarct on CT I gave aspirin and admited the patient to the telemetry floor for further stroke evaluation and risk factor modification. This was discussed with hospitalist (Dr. Call) who accepted patient's case. Discharge Plan Dx/Rx/DC Orders Clinical Impression: Acute CVA (cerebrovascular accident) Disposition Disposition: [facility] Discharge Date/Time: 09/08/22 03:22
--- NOTE | 2022-09-08 01:31 | CT_ITS ---
We are attempting to reach an attending provider to discuss findings. An addendum with communication details will be sent when the communication is complete. INDICATION: Neuro deficit, acute, stroke suspected EXAMINATION: CT Head Stroke Protocol W/O Contrast Injection TECHNIQUE: Multiple axial images were obtained of the head without intravenous contrast. A radiation dose optimization technique was used for this scan. IV Contrast dosage and agent: None. COMPARISON: Head CT from 02/13/2010 FINDINGS: BRAIN PARENCHYMA: No intra- or extra-axial hemorrhage. Small infarct now present at left occipitoparietal watershed region with suggestion of mild cortical volume loss but no significant local mass effect or sulcal effacement. No intracranial mass effect or midline shift. Small chronic appearing lacunar infarct lateral right cerebellar hemisphere. Chronic cerebral involutional changes. CSF SPACES: Prominent cerebral sulci and extraaxial spaces secondary to involutional changes. No hydrocephalus. Basal cisterns are patent. CALVARIUM, SKULL BASE, PARANASAL SINUSES AND MASTOID AIR CELLS: Calvarium is intact. No acute findings within imaged paranasal sinuses. Mastoid air cells are well-pneumatized. ORBITS: No acute findings, as visualized. ASPECTS Score for Acute Strokes: 9 CT/STROKE Brain/Head without Cont IMPRESSION: Small infarct at left occipitoparietal watershed region with features suggesting possible subacute or early chronic age. MRI would be more sensitive for detection of acute ischemia in this setting. Follow-up as clinically warranted. Small chronic-appearing right cerebellar lacunar infarct. Electronically Signed: Eliseo Washington MD at 1:57 EDT ,
--- NOTE | 2022-09-08 01:31 | EKG12_ITS ---
Test Reason : NEURO SX Blood Pressure : / mmHG Vent. Rate : 072 BPM Atrial Rate : 072 BPM P-R Int : 190 ms QRS Dur : 098 ms QT Int : 414 ms P-R-T Axes : 034 034 025 degrees QTc Int : 453 ms Normal sinus rhythm Normal ECG Confirmed by PETRONA CASTRO, LUIS FERNANDO ([id number]), editor map ANASTASIA EHNSON ([id number]) on 09/11/2022 1:17:23 PM Referred By: THERESA Confirmed By:LUIS FERNANDO RUSS MD
--- NOTE | 2022-09-08 01:31 | CT_ITS ---
We are attempting to reach an attending provider to discuss findings. An addendum with communication details will be sent when the communication is complete. INDICATION: Neuro deficit, acute, stroke suspected. Increased right-sided weakness, prior CVA, carotid stenosis, hypertension, diabetes, chronic kidney disease. EXAMINATION: CTA CAROTIDS AND BRAIN - CTA Head and Neck W/ Contrast Injection (and W/O Contrast Images if performed) TECHNIQUE: Routine CTA of the head and neck was performed with post processing of the angiographic images for volumetric reconstructions. In addition, images were obtained of the [place]. Nascet criteria using the distal ICAs for comparison were used for evaluation of stenoses. 3D reconstructions were reviewed. A radiation dose optimization technique was used for this scan. IV Contrast dosage and agent: 100 mL [id number] COMPARISON: Concurrent unenhanced CT brain. CTA Brain/carotids report from 11/21/2017 and CTA chest report from 08/04/2021 are reviewed, images not received. FINDINGS: --NECK: AORTIC ARCH AND BRANCHES: No aneurysm, dissection, occlusion or significant stenosis. Bovine arch variant is noted with the left common carotid artery arising from proximal innominate artery. RIGHT CCA: No occlusion or dissection. Atherosclerotic plaque resulting in 50-70% stenosis at bifurcation. RIGHT ICA: No occlusion or dissection. Atherosclerotic plaque resulting in up to 70% stenosis at origin. LEFT CCA: No occlusion, significant stenosis or dissection. LEFT ICA: No occlusion, significant stenosis or dissection. RIGHT VERTEBRAL ARTERY: No occlusion, significant stenosis or dissection. LEFT VERTEBRAL ARTERY: No occlusion, significant stenosis or dissection. NECK SOFT TISSUES: No acute findings. LUNG APICES: There is confluent partial opacification and consolidation of visualized right upper lobe with separate small scattered pulmonary opacities. Partially imaged right paratracheal mediastinal adenopathy measuring up to 15 mm short axis diameter. BONES: Skeletal degenerative changes resulting in multilevel mild cervical spinal canal stenosis. --HEAD: --Anterior circulation: ICAs: Mild calcified plaque with no occlusion or significant stenosis. ACAs: No significant stenosis at the visualized segments. ACOM: Present. MCAs: No significant stenosis at the visualized segments. --Posterior circulation: PCOMs: Patent bilaterally. hand stonecutter: No significant stenosis at the visualized segments. BASILAR ARTERY: No significant stenosis. VERTEBRAL ARTERIES: No significant stenosis at the intradural/visualized segments. No evidence of intracranial aneurysm or vascular malformation. CT/STROKE CTA Head AND Neck W/Con IMPRESSION: 1. Atherosclerotic plaque resulting in approximately 70% stenosis at origin of right internal carotid artery. Also described in previous report. Otherwise, no evidence of acute arterial occlusive disease within head or neck. 2. Partial consolidation and volume loss right upper lobe with scattered small acute versus chronic postinfectious changes. Abnormal appearance of right upper lobe described in previous chest CT report. However, paratracheal mediastinal adenopathy was not described in previous report. Possible reactive to infectious process or malignancy. Clinical correlation and dedicated follow-up recommended. Electronically Signed: Eliseo Washington MD at 2:21 EDT ,
--- NOTE | 2022-09-08 01:31 | RAD_ITS ---
INDICATION: Neuro deficit, acute, stroke suspected EXAMINATION/TECHNIQUE: X-RAY - XR Chest 1 View COMPARISON: 02/18/2010 FINDINGS: LINES/DEVICES: None. LUNGS: New right upper lobe opacity. MEDIASTINUM AND CARDIOVASCULAR STRUCTURES: Cardiac silhouette not enlarged. Central airways and mediastinal contour are unremarkable. BONES AND SOFT TISSUES: Unremarkable. RAD/Chest 1 View IMPRESSION: Right upper lobe opacity, concerning for infection. Following clinical improvement repeat CT chest is recommended to exclude underlying malignancy. Electronically Signed: Haja Dong MD at 2:48 EDT ,
--- NOTE | 2022-09-08 01:36 | ED.RN ---
[facility] CALLED FOR STROKE ALERT TIME
[2022-09-08 01:39] LABS: Absolute Lymphocyte Count 2.01 X10^3/uL (0.83-4.51); Absolute Neutrophil Count 4.2 X10^3/uL (2.0-7.7); Basophil# 0.06 X10^3/uL; Basophil% 0.8 % (0-1); Eosinophil# 0.32 X10^3/uL; Eosinophils% 4.5 % (0-5); Hematocrit 27.2 % (37-47); Hemoglobin 8.7 g/dL (12.0-15.0); Lymphocyte # 2.01 X10^3/ul (0.83-4.51); Lymphocyte % 28.5 % (19-41); Mean Corpuscular Volume 96.8 fL (81-99); Mean Platelet Vol. 9.9 fl (6.2-12.0); Monocyte# 0.47 X10^3/uL; Monocyte% 6.7 % (0-10); NRBC Flagged by Analyzer 0 % (0-5); Neutrophil # 4.17 X10^3/uL (2.7-7.7); Neutrophil % 59.1 % (47-70); Platelet Count 225 K/mm3 (150-450); RBC Distribution Width CV 14.1 % (11.6-14.6); RBC Distribution Width SD 49.6 fl (35.1-43.9); Red Blood Count 2.81 M/mm3 (4.2-5.4); White Blood Count 7.1 K/mm3 (4.4-11.0)
[2022-09-08 01:47] LABS: Prothrombin Time (Protime)PT. 13.1 SECONDS (11.7-14.9)
[2022-09-08 01:48] LABS: Partial Thromboplast Time 30.3 Seconds (24.1-36.2)
[2022-09-08 01:56] LABS: Anion Gap 9 (5-15); BUN 15 mg/dL (7-18); BUN/Creat Ratio 13.5 RATIO (10-20); Calcium,Total 8.9 mg/dL (8.5-10.1); Chloride 106 mmol/L (98-107); Creatinine, Serum 1.11 mg/dL (0.55-1.02); EST Glomerular Filtration Rate 53 mL/min (>60); Est Glom Filt Rate - Afr Amer 64 mL/min (>60); Estimated Creatinine Clearance 42.09 ml/min; Glucose 141 mg/dL (74-106); Potassium 3.2 mmol/L (3.5-5.1); Sodium Level 140 mmol/L (136-145); Troponin-I HS 11 pg/mL (3.0-54.0)
[2022-09-08] MEDS: 0.9% Normal Saline 1,000 ML 999 ML IV (02:10)
--- NOTE | 2022-09-08 02:42 | MRI_ITS ---
We are attempting to reach an attending provider to discuss findings. An addendum with communication details will be sent when the communication is complete. EXAM: MR HEAD WITHOUT INTRAVENOUS CONTRAST CLINICAL INDICATION: TIA. TECHNIQUE: Multiplanar and multisequence MR images of the brain were obtained without intravenous contrast. This report was created using [employer] report generation technology. COMPARISON: CT head without contrast and CTA head with contrast 09/08/2022. CT head without contrast 02/13/2022. FINDINGS: BRAIN AND EXTRA-AXIAL SPACES: Small linear diffusion restriction in the cortex of the left precentral gyrus is also visible on the T2 FLAIR sequence. This is most in keeping with subacute lacunar ischemic infarct. Small old cortical gyral ischemic infarct in the left lateral occipital temporal gyrus with minimal cortical laminar necrosis. Normal ventricles and cisterns. No intra- or extra-axial hemorrhage. No intracranial mass or mass effect. Posterior fossa structures are unremarkable. No hydrocephalus. SELLA: Unremarkable. Normal sella turcica, pituitary gland, infundibular stalk, optic chiasm and hypothalamus. AUDITORY SYSTEM: Unremarkable. The internal auditory canals are patent. BONES/JOINTS: Unremarkable. No discrete lytic or blastic abnormalities. SINUSES: Unremarkable as visualized. Clear. MASTOID AIR CELLS: Unremarkable as visualized. Clear. ORBITS: Unremarkable as visualized. Both globes, extraocular muscles, optic nerves and retrobulbar fat appear unremarkable. VASCULATURE: Unremarkable as visualized. Normal flow voids in the major intracranial circulation. MRI/Brain without Contrast IMPRESSION: 1. Subacute lacunar linear ischemic infarct in the cortex of the left precentral gyrus. 2. Interval development of small old focal cortical gyral ischemic infarct with laminar necrosis in the left lateral occipitotemporal gyrus. This was not visible on prior CT head scan of 02/13/2022. Electronically Signed: David Harrell MD at 10:53 EDT ,
[2022-09-08] MEDS: Potassium Chloride Oral Tablet 20 MEQ 40 MEQ PO (02:44)
[2022-09-08] MEDS: Aspirin 325 MG Tablet PO (03:10)
[2022-09-08 03:19] LABS: Thyroid Stim Hormone (TSH) 1.29 uIU/mL (0.358-3.74)
--- NOTE | 2022-09-08 03:53 | HP.PCM.HOS_ITS ---
[facility] - General General Date of Admission: 09/08/22 Date of Service: 09/08/22 Chief Complaint: Bilateral arm numbness [facility] Narrative BILL CHOI, is a 61 F who presented to the emergency department [facility] on 09/08/2022 with a chief complaint of bilateral arm numbness and right upper extremity weakness. She was last known well at 11 PM and reported that her symptoms started while she was putting a puzzle together. Symptoms started approximately 2-1/2 hours prior to her arrival. She reported that her right arm was and that she could not feel her right arm. She reported her left arm had some sensory changes but not as dramatic. She has remote history of stroke that affected her right lower extremity and she has chronic lower extremity weakness related to that. She reports she has been taking her medications as prescribed. She denies any associated facial droop or speech changes. At the time of the emergency department physician's evaluation she had weakness in the right upper extremity and paresthesias on the right harm. At the time of my evaluation her sensory was back to normal and she did a ppear to have some very minimal pronator drift in the right upper extremity on exam. She felt overall she was back to baseline. She stated up until that point she was feeling well. Vital signs at the time of presentation showed a temperature of 98, heart rate 74, blood pressure 139/107 but subsequently she had lower blood pressures in the 90s over 50s predominantly, respiratory rate of 18, pulse ox was 99% on room air. Her CBC showed a chronic stable anemia with a hemoglobin of 8.7. Her coa gs were normal. Her chemistry panel showed mild hypokalemia with potassium of 3.2 but was otherwise overtly unremarkable. Her troponin was normal at 11 and a TSH was obtained and found to be 1.29. EKG shows normal sinus rhythm without any ST-T wave changes consistent with acute ischemia and normal intervals. Her chest x-ray showed a right upper lobe opacity that is chronic when compared to previous studies. CT of her brain showed a small infarct at the left occipital parietal watershed region with features suggesting a possible subacute or early chronic age stroke and a small chronic appearing right cerebellar lacunar infarct. The CTA of her head and neck shows atherosclerotic plaque resulting in approximately 70% stenosis at the origin of the right internal carotid artery but is otherwise negative for any acute arterial occlusive disease in the head or neck. tPA was not given the emergency department given her rapid improvement in her symptoms and previous infarct noted on CT scan that was documented as subacute due to concerns of hemorrhagic transformation. [facility] Medical History ACTH deficiency Acute respiratory failure with hypoxia Allergic rhinitis Anemia Asthma Asthma exacerbation Atherosclerosis of coronary artery without angina pectoris Bilateral leg weakness Bone fracture Cardiomyopathy Carotid artery stenosis Carpal tunnel syndrome Chronic constipation with suspected IBS Chronic headaches Chronic systolic (congestive) heart failure CKD (chronic kidney disease) stage 3, GFR 30-59 ml/min Debility Essential hypertension Falls Flash pulmonary edema (01/16/21) Gait difficulty Gallstones GERD (gastroesophageal reflux disease) GI problem Herpes simplex History of Clostridium difficile infection History of CVA (cerebrovascular accident) (2018) History of depression History of emotional problems History of ischemic colitis Hx of diverticulitis of colon Hyperlipidemia Hypertension Hypotension Hypothyroidism Irritable bowel syndrome Kidney disease Neuropathy Non-ischemic cardiomyopathy Normochromic normocytic anemia Normocytic anemia Obesity Osteoarthritis Osteopenia Osteoporosis Peripheral vascular disease Pulmonary edema Right hemiparesis Seasonal allergies Secondary adrenal insufficiency Stomach ulcer Stroke/cerebrovascular accident Trigeminal trophic syndrome Type 2 diabetes mellitus Home Medications multivitamin 1 ea PO DAILY vitamin 12/29/17 [History Last Taken 02/12/22] pantoprazole 40 mg tablet,delayed release 40 mg PO BID GERD 03/29/19 [History Last Taken 02/12/22] amitriptyline 25 mg tablet 25 mg PO QHS mood 08/10/19 [History Last Taken 02/12/22] rosuvastatin 20 mg tablet (Crestor) 20 mg PO QHS cholesterol 08/25/19 [History Last Taken 02/12/22] sitagliptin phosphate 50 mg tablet (Januvia) 50 mg PO DAILY diabetes 09/04/19 [History Last Taken 02/12/22] dicyclomine 10 mg capsule 20 mg PO TIDAC cramping 10/19/20 [History Last Taken 02/12/22] duloxetine 60 mg capsule,delayed release 60 mg PO BID nerve pain 10/19/20 [History Last Taken 02/12/22] valacyclovir 500 mg tablet (Valtrex) 500 mg PO DAILY cold soars 10/19/20 [History Last Taken 02/12/22] tizanidine 4 mg tablet (Zanaflex) 4 mg PO Q8H PRN Muscle Spasm 01/26/21 [History Last Taken 02/12/22] ascorbate calcium (vitamin C) 500 mg tablet 500 mg PO DAILY vitamin 01/27/21 [History Last Taken 02/12/22] calcium carbonate 600 mg-vitamin D3 12.5 mcg (500 unit) capsule (Calcium 600 with Vitamin D3) 1 cap PO DAILY supplement 01/27/21 [History Last Taken 02/12/22] magnesium oxide 400 mg PO DAILY supplement 01/27/21 [History Last Taken 02/12/22] venlafaxine 75 mg tablet 150 mg PO QHS depression 02/04/21 [History Last Taken 02/12/22] Lactobacillus rhamnosus GG 10 billion cell capsule (Culturelle) 1 cap PO DAILY 05/18/21 [History Last Taken 02/12/22] pregabalin 100 mg capsule 100 mg PO DAILY Nerve pain 05/18/21 [History Last Taken 02/12/22] carvedilol 25 mg tablet (Coreg) 25 mg PO BID BP 08/23/21 [History Last Taken 02/12/22] fluticasone 100 mcg-salmeterol 50 mcg/dose blistr powdr for inhalation (Advair Diskus) 1 inh inhalation BID Breathing 02/11/22 [History Last Taken 02/12/22] sacubitril 49 mg-valsartan 51 mg tablet (Entresto) 1 tab PO BID Heart 02/11/22 [History Last Taken 02/12/22] venlafaxine 75 mg tablet 75 mg PO DAILY Depression 02/11/22 [History Last Taken 02/12/22] alendronate 70 mg tablet 70 mg PO TU BONES 02/13/22 [History Last Taken 02/07/22] cetirizine 10 mg tablet (Zyrtec) 10 mg PO DAILY ALLERGIES 02/13/22 [History Last Taken 02/12/22] aspirin 81 mg tablet,delayed release 81 mg PO DAILY@0800 Heart health 02/15/22 [History Last Taken Unknown] levothyroxine 114 mcg PO/SL DAILY 05/10/22 [History Last Taken Unknown] zinc 50 mg PO/SL DAILY 05/10/22 [History Last Taken Unknown] hydrocodone 7.5 mg-acetaminophen 325 mg tablet 1 tab PO Q6H PRN Pain 06/19/22 [History Last Taken Unknown] Allergy/AdvReac Type Severity Reaction Status Date / Time adhesive Allergy skin Verified 09/08/22 00:53 irritation amlodipine [From Norvasc] Allergy tachycardia Verified 09/08/22 00:53 hydromorphone HCl Allergy Itching Verified 09/08/22 00:53 [From Dilaudid] sulfamethoxazole Allergy made my Verified 09/08/22 00:53 [From Bactrim] cold sore huge trimethoprim [From Bactrim] Allergy made my Verified 09/08/22 00:53 cold sore huge Family History Grandfather Alcoholism Grandmother Myocardial infarction Mother Arthritis Diverticulitis COPD (chronic obstructive pulmonary disease) Afib Thyroid disorder Father Arthritis Diabetes Myocardial infarction Heart disease Ischemic Hypertension Hyperlipidemia Brother Arthritis Aunt Breast cancer Sister Arthritis Thyroid disorder Skin cancer Uncle Diabetes Surgical History Ankle fracture Fracture of left femur History of angioplasty of peripheral vessel (2010) History of arthroscopic knee surgery History of back surgery History of bilateral knee replacement History of carpal tunnel release History of cholecystectomy History of intestine removal History of left heart catheterization (2011) History of tonsillectomy and adenoidectomy History of trigger finger History of ventral hernia repair Strangulated ventral hernia Social History household members: none Smoking Status: Former smoker how long ago did patient quit smokin alcohol intake: never substance use type: does not use what type of physical activity do you participate in: other ROS Constitutional Constitutional: Denies anorexia, change in weight, chills, fatigue, fever(s), malaise, night sweats, weakness or other Eyes Eyes: Denies blurry vision, change in eye color, change in vision, discharge from eye(s), double vision, erythema, eye pain, loss of vision or other ENT HEENT: Denies abnormal hearing, dysphagia, ear pain, epistaxis, headache(s), hearing loss, nasal congestion, nasal discharge, post nasal drip, sinus pressure, sore throat or other Cardiovascular Cardiovascular: Denies chest pain, claudication, dyspnea on exertion, edema, lightheadedness, orthopnea, palpitations, paroxysmal nocturnal dyspnea, rapid heart rate, syncope or other Respiratory/Chest Respiratory/Chest: Denies cough, dyspnea, excessive phlegm production, hemopt ysis, productive cough, shortness of breath at rest, shortness of breath with exertion, wheezing or other Gastrointestinal Gastrointestinal: Denies abdominal pain, coffee ground emesis, constipation, diarrhea, dyspepsia, hematemesis, hematochezia, loose stools, melena, nausea, vomiting or other Genitourinary Genitourinary: Denies burning urination, difficulty urinating, dysuria, hematuria, nocturia, urinary frequency, urinary hesitancy, urinary incontinence, urinary urgency or other Musculoskeletal Musculoskeletal: Reports back pain, joint pain and joint stiffness; Denies arthralgias, joint swelling, myalgias, neck pain or other Neurologic Neurologic: Reports abnormal gait, focal weakness, numbness and paresthesias; Denies abnormal speech, confusion, disequilibrium, dizziness, headache(s), sei zure-like activity, seizures, syncope, tingling, tremor(s) or other Psychiatric Psychiatric: Reports anxiety and depression; Denies homicidal ideation, suicidal ideation or other Endocrine Endocrinology: Denies change in body appearance, cold intolerance, excessive sweating, heat intolerance, polydipsia, polyuria or other Hematologic/Lymphatic Hematologic/Lymphatic: Denies anemia, easy bleeding, easy bruising, lymphadenopathy or other Allergic/Immunologic Allergic/Immunologic: Denies rhinitis, hives, eczemia, asthma or other Vital Signs Vital Signs Vital Signs: 09/08/22 00:53 09/08/22 01:50 09/08/22 02:00 Temperature 98.0 F Temperature Source Oral Pulse Rate 74 78 Respiratory Rate 15 18 Blood Pressure 139/107 H 100/57 L Blood Pressure Mean 117 71 Pulse Ox 98 99 Oxygen Delivery Method Room Air Room Air Room Air 09/08/22 02:00 09/08/22 01:45 09/08/22 02:30 Temperature Temperature Source Pulse Rate 76 77 75 Respiratory Rate 18 16 12 Blood Pressure 98/54 L 98/54 L 104/55 L Blood Pressure Mean 68 68 71 Pulse Ox 99 99 96 Oxygen Delivery Method Room Air Room Air Room Air 09/08/22 02:48 09/08/22 02:51 09/08/22 03:00 Temperature 98.0 F Temperature Source Oral Pulse Rate 75 73 69 Respiratory Rate 12 14 15 Blood Pressure 104/55 L 104/55 L 117/64 Blood Pressure Mean 71 71 81 Pulse Ox 96 99 100 Oxygen Delivery Method Room Air Room Air Room Air 09/08/22 03:00 09/08/22 03:27 Temperature 97.9 F Temperature Source Oral Pulse Rate 72 119 H Respiratory Rate 15 16 Blood Pressure 117/64 116/70 Blood Pressure Mean 81 85 Pulse Ox 99 98 Oxygen Delivery Method Room Air Room Air Weight Weight: 107.6 kg Body Mass Index (BMI) 43.4 Physical Exam Const alert and oriented x3 Constitutional Narrative: Morbidly obese, very pleasant upper middle-aged white female who appears older than stated age, sitting up in bed, appears comfortable nontoxic General Appearance: cooperative HEENT normocephalic, head/scalp atraumatic and moist oral mucous membranes HEENT Narrative: Mild hearing loss, dentition is poor, Mallampati is 2, no thrush Eyes PERRL and EOMs intact bilaterally; Negative for conjunctivae normal Eyes Narrative: Mild conjunctival pallor, no scleral icterus Neck no lymphadenopathy, supple and no carotid bruits Neck Narrative: Trachea midline, no thyroid enlargement Resp normal respiratory effort, no retractions, no use of accessory muscles and clear to auscultation bilaterally Resp Narrative: Diffusely diminished but clear Auscultation: Negative for crackles, rhonchi or wheezes Cardio regular rate, regular rhythm, S1 normal heart sound, S2 normal heart sound, no murmurs, no rub, no gallops and no clicks GI normal to inspection, nondistended, normoactive bowel sounds, soft to palpation and non-tender Extremity no clubbing, cyanosis or edema Extremity Narrative: 2+ pedal pulses Skin no rashes or lesions noted, No no wounds, skin turgor normal, no jaundice, no petechiae and no mottling Skin Narrative: Wound on left medial thigh, approximately the size of a dime, no purulent drainage or tenderness appears to be healing Neuro oriented x3 and CN's II-XII intact bilaterally Neuro Narrative: Right foot drop-chronic, sensory is normal, reflexes are normal, very minimal right upper extremity pronator drift, generalized weakness proximal greater than distal Speech: speech normal Psych affect normal Psych Narrative: Very pleasant and appropriately interactive Results Lab / Micro Data Result Diagrams: 09/08/22 01:00 09/08/22 01:00 Labs: Laboratory Results - last 24 hr 09/08/22 01:00: WBC 7.1, RBC 2.81 L, Hgb 8.7 L, Hct 27.2 L, MCV 96.8, MCH 31.0, MCHC 32.0, RDW Std Deviation 49.6 H, RDW Coeff of Lencho 14.1, Plt Count 225, MPV 9.9, Immature Gran % (Auto) 0.400, Neut % (Auto) 59.1, Lymph % (Auto) 28.5, Harney % (Auto) 6.7, Eos % (Auto) 4.5, Baso % (Auto) 0.8, Absolute Neuts (auto) 4.2, Absolute Lymphs (auto) 2.01, Nucleated RBC % 0 09/08/22 01:00: PT 13.1, INR 1.0, APTT 30.3 09/08/22 01:00: Sodium 140, Potassium 3.2 L, Chloride 106, Carbon Dioxide 25.0, Anion Gap 9, BUN 15, Creatinine 1.11 H, Estim Creat Clear Calc 42.09, Est GFR (MDRD) Af Amer 64, Est GFR (MDRD) Non-Af 53 L, BUN/Creatinine Ratio 13.5, Glucose 141 H, Calcium 8.9, Troponin I High Sens 11 09/08/22 01:00: TSH 1.[address] 09/08/22 01:31 IMPRESSION: Small infarct at left occipitoparietal watershed region with features suggesting possible subacute or early chronic age. MRI would be more sensitive for detection of acute ischemia in this setting. Follow-up as clinically warranted. Small chronic-appearing right cerebellar lacunar infarct. Electronically Signed: Eliseo Washington MD at 1:57 EDT , ADDENDUM: 09/08/22205 IMPRESSION: Small infarct at left occipitoparietal watershed region with features suggesting possible subacute or early chronic age. MRI would be more sensitive for detection of acute ischemia in this setting. Follow-up as clinically warranted. Small chronic-appearing right cerebellar lacunar infarct. N.B. : The above Results were Read Back by Eliseo Washington MD to Dr. Johanny MD, and understanding confirmed on 09/08/2022 01:59:43 (ET). Electronically Signed: Eliseo Washington MD at 1:57 EDT , Chest X-Ray 09/08/22 01:31 IMPRESSION: Right upper lobe opacity, concerning for infection. Following clinical improvement repeat CT chest is recommended to exclude underlying malignancy. Electronically Signed: Haja Dong MD at 2:48 EDT , Head/Neck CTA 09/08/22 01:31 IMPRESSION: 1. Atherosclerotic plaque resulting in approximately 70% stenosis at origin of right internal carotid artery. Also described in previous report. Otherwise, no evidence of acute arterial occlusive disease within head or neck. 2. Partial consolidation and volume loss right upper lobe with scattered small acute versus chronic postinfectious changes. Abnormal appearance of right upper lobe described in previous chest CT report. However, paratracheal mediastinal adenopathy was not described in previous report. Possible reactive to infectious process or malignancy. Clinical correlation and dedicated follow-up recommended. Electronically Signed: Eliseo Washington MD at 2:21 EDT , ADDENDUM: 09/08/22 0229 IMPRESSION: 1. Atherosclerotic plaque resulting in approximately 70% stenosis at origin of right internal carotid artery. Also described in previous report. Otherwise, no evidence of acute arterial occlusive disease within head or neck. 2. Partial consolidation and volume loss right upper lobe with scattered small acute versus chronic postinfectious changes. Abnormal appearance of right upper lobe described in previous chest CT report. However, paratracheal mediastinal adenopathy was not described in previous report. Possible reactive to infectious process or malignancy. Clinical correlation and dedicated follow-up recommended. N.B. : The above Results were Read Back by Eliseo Washington MD to Dr. Johanny MD, and understanding confirmed on 09/08/2022 02:22:09 (ET). Electronically Signed: Eliseo Washington MD at 2:21 EDT , Assessment & Plan Assessment/Plan (1) Right arm weakness: (2) Arm paresthesia, right: (3) Hypokalemia: PLAN: Plan Right upper extremity weakness and paresthesias/numbness -Patient with remote of stroke affecting right lower extremity -CT done on admission shows small infarct at the left occipital parietal watershed region with features suggesting it was subacute or early chronic -CTA of the head and neck shows atherosclerotic plaque with approximately 70% stenosis at the origin of the right internal carotid artery with no other acute arterial occlusive disease -This does not correlate with her symptoms upon presentation and I would recommend outpatient follow-up with vascular surgery after discharge -Check MRI -Check echocardiogram -Continue home aspirin -If MRI reveals new stroke would add Plavix -Check hemoglobin A1c -Check lipid panel -Start high and dose statin with atorvastatin 80 mg -We will likely need SOC neurology involvement if MRI is positive for stroke Hypokalemia -40 mill equivalents p.o. potassium given -Repeat lab in a.m. -Check a.m. magnesium level Right-sided carotid stenosis -70% on CTA of the head and neck -Does not correlate with signs of neurological changes -Would recommend outpatient follow-up with vascular surgery History of cardiomyopathy/HTN/HPL/history of stroke -Patient had an EF of 15% in January of 2021 but echocardiogram from April of 2021 shows an EF of 60% -Evidently her cardiomyopathy has resolved -Continue home carvedilol with hold parameters -Blood pressures were somewhat soft in the emergency department and Entresto was held -Restart if pressures have improved -Continue aspirin -Patient is not currently on a statin at baseline -Continue home rosuvastatin -At baseline patient has right distal lower extremity foot drop -Would recommend outpatient follow-up for AFO after discharge COPD -Patient follows with Dr. Day -Continue home inhalers -Patient with chronic partial consolidation of the right upper lobe of the lung -This was noted on the CT a of the head and neck and is a chronic finding Chronic pain -Continue home medications Morbid obesity -Complicates treatment, prognosis, and outcomes -Recommend weight loss -BMI is 43.4 Osteoporosis -Restart alendronate upon discharge -Continue calcium carbonate Seasonal allergies -Continue H2 sulaiman Depression -Continue Effexor -Continue home amitriptyline Hypothyroidism -Continue levothyroxine -Check TSH GERD -Continue Protonix DM-2 -Hold home oral medications -SSI -Check hemoglobin A1c -Accu-Cheks DVT prophylaxis -Continue heparin CODE STATUS -Full code Charges/Coding Visit Charges OBSV E&M: 16053 Initial observation care L3
--- NOTE | 2022-09-08 05:55 | ECHOCS_ITS ---
Reason For Study: TIA Procedure This was a 2D Doppler, Color Flow transthoracic echocardiogram. The study was technically difficult. Contrast injection was performed. Exam performed portable in patient room. Left Ventricle Normal left ventricle. The estimated ejection fraction is 55-60 %. Right Ventricle Normal right ventricle. Normal systolic function. Atria Normal left atrium. Normal right atrium. Mitral Valve The mitral valve is structurally normal. No prolapse or stenosis seen. No mitral valve insufficiency. Tricuspid Valve Normal tricuspid valve. No tricuspid valve insufficiency. Aortic Valve Normal aortic valve. Pulmonic Valve The pulmonic valve is not well visualized. Great Vessels Normal aortic root. Pericardium/Pleural No pericardial effusion. Medication Diluted definity 2ml given slow IV push to enhance endocardial definition. MMode/2D Measurements & Calculations Ao root diam: 2.7 cm LAV(MOD-sp4): 69.2 ml LVAd ap4: 37.5 cm2 LVLd ap4: 8.6 cm EDV(MOD-sp4): 134.7 ml EDV(sp4-el): 138.4 ml LVAs ap4: 22.4 cm2 LVLs ap4: 7.6 cm ESV(MOD-sp4): 54.6 ml ESV(sp4-el): 56.3 ml EF(MOD-sp4): 59.4 % EF(sp4-el): 59.3 % SV(MOD-sp4): 80.1 ml SV(sp4-el): 82.1 ml LA A4 area: 23.8 cm2 LA dimension(2D): 4.0 cm RA A4 area: 8.7 cm2 Doppler Measurements & Calculations MV E max jaya: 87.7 cm/sec Lat Peak E' Jaya: 8.0 cm/sec Med Peak E' Jaya: 4.7 cm/sec MV A max jaya: 108.3 cm/sec E/E' lat: 10.9 E/E' med: 18.8 MV E/A: 0.81 MV V2 max: 117.1 cm/sec Ao V2 max: 121.2 cm/sec LV V1 max: 79.4 cm/sec MV max P.5 mmHg Ao max P.9 mmHg LV V1 max P.5 mmHg MV V2 mean: 77.1 cm/sec Ao V2 mean: 82.1 cm/sec LV V1 mean P.5 mmHg MV mean P.7 mmHg Ao mean P.1 mmHg LV V1 mean: 57.7 cm/sec MV V2 VTI: 27.2 cm Ao V2 VTI: 24.6 cm LV V1 VTI: 16.6 cm PA V2 max: 89.6 cm/sec ECHO/Echo Complete W/ Contrast Interpretation Summary The estimated ejection fraction is 55-60 %. Normal LV systolic function Contrast echo used No change from previous echo Ordering Physician: Ariella Call Performed By: Jenelle Shirley RCS
[2022-09-08] MEDS: Dicyclomine 10 MG Capsule 20 MG PO ×3 (06:35→16:45)
[2022-09-08 07:15] LABS: Bedside Glucose 87 mg/dL (74-106)
[2022-09-08 07:29] LABS: Absolute Lymphocyte Count 1.72 X10^3/uL (0.83-4.51); Absolute Neutrophil Count 3.1 X10^3/uL (2.0-7.7); Basophil# 0.05 X10^3/uL; Basophil% 0.9 % (0-1); Eosinophil# 0.27 X10^3/uL; Eosinophils% 4.9 % (0-5); Hematocrit 27.5 % (37-47); Hemoglobin 8.9 g/dL (12.0-15.0); Lymphocyte # 1.72 X10^3/ul (0.83-4.51); Lymphocyte % 31.3 % (19-41); Mean Corp Hgb Conc 32.4 g/dL (32-36); Mean Corpuscular Volume 95.8 fL (81-99); Mean Platelet Vol. 9.8 fl (6.2-12.0); Monocyte# 0.33 X10^3/uL; NRBC Flagged by Analyzer 0 % (0-5); Neutrophil # 3.08 X10^3/uL (2.7-7.7); Neutrophil % 56.2 % (47-70); Platelet Count 187 K/mm3 (150-450); RBC Distribution Width CV 14.1 % (11.6-14.6); RBC Distribution Width SD 48.7 fl (35.1-43.9); Red Blood Count 2.87 M/mm3 (4.2-5.4); White Blood Count 5.5 K/mm3 (4.4-11.0)
[2022-09-08] MEDS: Albuterol 2.5 MG/3 ML VIAL.NEB. INHALATION ×3 (07:32→19:11)
[2022-09-08] MEDS: Budesonide Respules 0.5 MG/2 ML AMPUL.NEB. INHALATION ×2 (07:33→19:10)
--- NOTE | 2022-09-08 07:57 | PN.HOSP_ITS ---
Subjective Subjective Patient is a 61-year-old lady presented to the emergency department with numbness and weakness involving the right upper extremity. CT done on admission showed small infarct at the left occipital parietal watershed region with features suggesting it was subacute or early chronic. Admitted to monitored bed for subsequent evaluation. Objective Data Objective Data Vital Signs: Vital Signs Temp Pulse Resp BP Pulse Ox O2 Del Method 97.9 F 75 16 119/84 H 98 Room Air 09/08/22 06:30 09/08/22 06:45 09/08/22 06:30 09/08/22 06:30 09/08/22 07:03 09/08/22 07:03 Oxygen Delivery Method Room Air Weight: 107.6 kg Body Mass Index (BMI) 43.4 Intake & Output: Intake and Output for Last 24 Hours 09/06/22 09/07/22 09/08/22 23:59 23:59 23:59 Intake Total 1000 / 1000 Output Total 0 / 0 Balance 1000 / 1000 Lab / Micro Data Result Diagrams: 09/08/22 06:10 09/08/22 06:10 Labs: Laboratory Results - last 24 hr 09/08/22 01:00: WBC 7.1, RBC 2.81 L, Hgb 8.7 L, Hct 27.2 L, MCV 96.8, MCH 31.0, MCHC 32.0, RDW Std Deviation 49.6 H, RDW Coeff of Lencho 14.1, Plt Count 225, MPV 9.9, Immature Gran % (Auto) 0.400, Neut % (Auto) 59.1, Lymph % (Auto) 28.5, Pitkin % (Auto) 6.7, Eos % (Auto) 4.5, Baso % (Auto) 0.8, Absolute Neuts (auto) 4.2, Absolute Lymphs (auto) 2.01, Nucleated RBC % 0 09/08/22 01:00: PT 13.1, INR 1.0, APTT 30.3 09/08/22 01:00: Sodium 140, Potassium 3.2 L, Chloride 106, Carbon Dioxide 25.0, Anion Gap 9, BUN 15, Creatinine 1.11 H, Estim Creat Clear Calc 42.09, Est GFR (MDRD) Af Amer 64, Est GFR (MDRD) Non-Af 53 L, BUN/Creatinine Ratio 13.5, Glucose 141 H, Calcium 8.9, Troponin I High Sens 11 09/08/22 01:00: TSH 1.29 09/08/22 06:10: WBC 5.5, RBC 2.87 L, Hgb 8.9 L, Hct 27.5 L, MCV 95.8, MCH 31.0, MCHC 32.4, RDW Std Deviation 48.7 H, RDW Coeff of Lencho 14.1, Plt Count 187, MPV 9.8, Immature Gran % (Auto) 0.700, Neut % (Auto) 56.2, Lymph % (Auto) 31.3, Pitkin % (Auto) 6.0, Eos % (Auto) 4.9, Baso % (Auto) 0.9, Absolute Neuts (auto) 3.1, Absolute Lymphs (auto) 1.72, Nucleated RBC % 0 09/08/22 06:30: POC Glucose 87 Radiography Diagnostic Testing: Radiology Impression Brain CT 09/08/22 01:31 IMPRESSION: Small infarct at left occipitoparietal watershed region with features suggesting possible subacute or early chronic age. MRI would be more sensitive for detection of acute ischemia in this setting. Follow-up as clinically warranted. Small chronic-appearing right cerebellar lacunar infarct. Electronically Signed: Eliseo Washington MD at 1:57 EDT , ADDENDUM: 09/08/22 0206 IMPRESSION: Small infarct at left occipitoparietal watershed region with features suggesting possible subacute or early chronic age. MRI would be more sensitive for detection of acute ischemia in this setting. Follow-up as clinically warranted. Small chronic-appearing right cerebellar lacunar infarct. N.B. : The above Results were Read Back by Eliseo Washington MD to Dr. Johanny MD, and understanding confirmed on 09/08/2022 01:59:43 (ET). Electronically Signed: Eliseo Washington MD at 1:57 EDT , Chest X-Ray 09/08/22 01:31 IMPRESSION: Right upper lobe opacity, concerning for infection. Following clinical improvement repeat CT chest is recommended to exclude underlying malignancy. Electronically Signed: Haja Dong MD at 2:48 EDT , Head/Neck CTA 09/08/22 01:31 IMPRESSION: 1. Atherosclerotic plaque resulting in approximately 70% stenosis at origin of right internal carotid artery. Also described in previous report. Otherwise, no evidence of acute arterial occlusive disease within head or neck. 2. Partial consolidation and volume loss right upper lobe with scattered small acute versus chronic postinfectious changes. Abnormal appearance of right upper lobe described in previous chest CT report. However, paratracheal mediastinal adenopathy was not described in previous report. Possible reactive to infectious process or malignancy. Clinical correlation and dedicated follow-up recommended. Electronically Signed: Eliseo Washington MD at 2:21 EDT , ADDENDUM: 09/08/22 0229 IMPRESSION: 1. Atherosclerotic plaque resulting in approximately 70% stenosis at origin of right internal carotid artery. Also described in previous report. Otherwise, no evidence of acute arterial occlusive disease within head or neck. 2. Partial consolidation and volume loss right upper lobe with scattered small acute versus chronic postinfectious changes. Abnormal appearance of right upper lobe described in previous chest CT report. However, paratracheal mediastinal adenopathy was not described in previous report. Possible reactive to infectious process or malignancy. Clinical correlation and dedicated follow-up recommended. N.B. : The above Results were Read Back by Eliseo Washington MD to Dr. Johanny MD, and understanding confirmed on 09/08/2022 02:22:09 (ET). Electronically Signed: Eliseo Washington MD at 2:21 EDT , Physical Exam Narrative GENERAL: cooperative HEENT: Atraumatic; normocephalic EYES; Anicteric, Normal Conjunctiva NECK; supple, normal thyroid, RESPIRATORY: Diminished to auscultation CARDIOVASCULAR: Regular S1 S2, GI: soft, normoactive bowel sounds, : No Renal angle tenderness; EXTREMITIES: No edema, no clubbing, MUSCULOSKELETAL: no muscle wasting NEURO: Awake; no lateralizing signs. SKIN: No Rash PSYCH; Flat affect Assessment & Plan Assessment/Plan (1) Arm paresthesia, right: (2) Right arm weakness: PLAN: Plan Patient is a 61-year-old lady presented to the emergency department with numbness and weakness involving the right upper extremity. CT done on admission showed small infarct at the left occipital parietal watershed region with features suggesting it was subacute or early chronic. Admitted to monitored bed for subsequent 1. Acute ischemic CVA ? Patient presented with right upper extremity numbness and paresthesias. Initial imaging studies with CT showed small infarct at the left occipital parietal watershed region with features suggesting it was subacute or early chronic. Admitted to monitored bed for subsequent. MRI did show Subacute lacunar linear ischemic infarct in the cortex of the left precentral gyrus. ? Interval development of small old focal cortical gyral ischemic infarct with laminar necrosis in the left lateral occipitotemporal gyrus. Patient started on dual antiplatelet therapy with aspirin and Plavix as well as high- dose statin therapy. Consult placed to [facility] [place] 2D echo ordered for subsequent evaluation 2. Neck pain ? Routine MRI of the cervical spine demonstrated moderate stenosis involving C3- C4 as well as C5 and C6 patient to follow-up with PCP for subsequent care 3. Hypokalemia ? Corrected per protocol repeat labs ordered for evaluation 4. Right-sided carotid artery stenosis CTA demonstrated 70% stenosis on the right. This does not correlate with patient ischemic CVA however consult was placed to vascular surgery 5. Hypertension - Blood pressure controlled, home medications continued with dose adjustment as needed 6. History of cardiomyopathy ? Patient had an echo obtained in January 2021 which demonstrated EF of 15% subsequently placed on Entresto EF improved to 60%. 7. Dyslipidemia -Patient is on statin therapy, continued at home dose 8. COPD ? Currently not in exacerbation aerosol treatments as needed patient was noted to have chronic partial consolidation of the right upper lobe 9. Diabetes mellitus type II -patient's oral hypoglycemics held. Placed on long acting insulin, Accu-Cheks a.c. and at bedtime and covered with sliding scale insulin 10. Hypothyroidism - Patient is on levothyroxine home dose continued 11. GERD ? Patient is on PPI 12. Depression ? Patient is on both Effexor as well as amitriptyline, continued 13. Class III obesity with BMI of 43.4 ? Weight loss advised 14. Osteoporosis ? Patient is on biphosphonate plan is to continue following discharge 15. DVT prophylaxis ? PA Lovenox Charges/Coding Visit Charges OBSV E&M: 79641 Subsequent observation care L3
[2022-09-08 08:00] LABS: ALB/GLOB Ratio 0.8 RATIO (0.9-2.4); AST(SGOT) 21 U/L (15-37); Alanine Aminotransfer ALT/SGPT 24 U/L (13-56); Albumin, Serum 2.9 g/dL (3.2-5.0); Alkaline Phosphatase 69 U/L (45-117); Anion Gap 11 (5-15); BUN 16 mg/dL (7-18); BUN/Creat Ratio 15.2 RATIO (10-20); Calcium,Total 9.2 mg/dL (8.5-10.1); Chloride 106 mmol/L (98-107); Cholesterol 122 mg/dL (200); Creatinine, Serum 1.05 mg/dL (0.55-1.02); EST Glomerular Filtration Rate 57 mL/min (>60); Est Glom Filt Rate - Afr Amer 68 mL/min (>60); Globulin 3.7 g/dL (2.2-4.2); Glucose 99 mg/dL (74-106); High Density Lipoprotein 42 mg/dL; Magnesium 2.1 mg/dL (1.6-2.6); Phosphorus 4.4 mg/dL (2.5-4.9); Potassium 3.8 mmol/L (3.5-5.1); Protein, Total 6.6 g/dL (6.4-8.2); Sodium Level 139 mmol/L (136-145); Triglycerides 309 mg/dL; Very Low Density Lipoprotein 62 mg/dL (5-40)
[2022-09-08 08:19] LABS: Hemoglobin A1c 5.1 % (3.8-5.6)
[2022-09-08] MEDS: Enoxaparin 40 MG/0.4 ML Syringe SC (08:33)
[2022-09-08] MEDS: Multivitamins,Therapeutic Tablet 1 TABLET PO (08:34)
[2022-09-08] MEDS: Pantoprazole Sodium 40 MG Tablet PO ×2 (08:34→22:23)
[2022-09-08] MEDS: Carvedilol 25 MG Tablet PO (08:34)
[2022-09-08] MEDS: Loratadine 10 MG Tablet PO (08:34)
[2022-09-08] MEDS: Magnesium Chloride 64 MG Delay Rel.Tablet 128 MG PO (08:34)
[2022-09-08] MEDS: Calcium Carb/Vitamin D 1 TABLET Tablet PO (08:34)
[2022-09-08] MEDS: DULoxetine Hcl 60 MG Capsule PO ×2 (08:34→22:22)
[2022-09-08] MEDS: Ascorbic Acid 500 MG Tablet PO (08:34)
[2022-09-08] MEDS: Venlafaxine HCl 75 MG Tablet PO (08:34)
[2022-09-08] MEDS: Aspirin E.C. 81 MG Tablet PO (08:34)
[2022-09-08] MEDS: Pregabalin 50 MG Capsule 100 MG PO (08:38)
--- NOTE | 2022-09-08 08:57 | MRI_ITS ---
STUDY: MRI CERVICAL SPINE WITHOUT CONTRAST REASON FOR EXAM: Female, 61 years old. Cervical radiculopathy. TECHNIQUE: Standardized fat and water weighted pulse sequences were obtained in the sagittal and axial planes. COMPARISON: MRI cervical spine without contrast 08/14/2019. FINDINGS: Normal foramen magnum and brainstem-cervical cord junction. Normal craniovertebral junction. Normal anterior atlantoaxial articulation. Normal odontoid process. Straightening of the C-spine curvature is unchanged. Normal vertebral bodies and posterior osseous elements. C2-3: Normal endplates. Normal disc height, signal and morphology. Normal central canal and intervertebral neural foramina. C3-4: Prominent anterior marginal spurs are unchanged. Normal endplates. Minimal disc space height narrowing. Normal central canal. Moderate stenosis of the left intervertebral neural foramen and mild stenosis of the right intervertebral neural foramen are unchanged. C4-5: Hypertrophic anterior marginal spurs are unchanged. Normal endplates. Normal disc height and morphology. Normal central canal and intervertebral neural foramina. C5-6: Hypertrophic anterior marginal spurs are unchanged. Normal endplates. Mild disc space narrowing. Normal central canal. Moderate stenosis of left intervertebral foramen and mild stenosis of the right intervertebral neural foramen are unchanged. C6-7: Prominent anterior marginal spurs. Normal endplates. Minimal disc space height narrowing. Normal central canal and intervertebral neural foramina. C7-T1: Normal endplates. Normal disc height, signal and morphology. Normal central canal and intervertebral neural foramina. T1-T2, T2-T3, T3-T4 and T4-T5: Normal endplates. Vertebral disc height, signal and morphology. Normal central canal and intervertebral neural foramina. Normal cervical cord. Normal included upper thoracic spinal cord. Normal including the brainstem and cerebellum. Interval resolution of the edema in the prevertebral space extending from C2 down to C3. MRI/Spine Cervical (Routine) IMPRESSION: 1. Interval resolution of anterior perivertebral space edema at C2 down to C3 when compared to 08/14/2019. 2. No MRI evidence of cervical extruded disc fragment. 3. Moderate stenosis of the left C3-C4 intervertebral neural foramen and moderate stenosis of the left C5-C6 intervertebral neural foramen are unchanged. Electronically Signed: David Harrell MD at 11:05 EDT ,
--- NOTE | 2022-09-08 11:18 | TELEMED_ITS ---
[facility] Tele[facility] has confirmed receipt of a request for visit. This document confirms receipt of the order initiating the consult. To find the results of the consultation, please view the patient's reports for the scanned Telemed Consult.
[2022-09-08 12:05] LABS: Bedside Glucose 94 mg/dL (74-106)
[2022-09-08] MEDS: HYDROCODONE/APAP 7.5-325/15ML 15 ML UDC PO ×2 (13:50→22:21)
--- NOTE | 2022-09-08 16:34 | CM.ED ---
SW completed PHQ 9 assessment. Patient scored a 6. No other issues or concerns voiced. Lori PLATT
[2022-09-08 17:05] LABS: Bedside Glucose 125 mg/dL (74-106)
--- NOTE | 2022-09-08 17:10 | CASEMGMT ---
RN CM pantry worker CM to room to meet with patient for initial transition planning/care coordination assessment. RN CM introduced self and role at [facility]. Patient sitting up in chair in room, alert and oriented. Patient willing to participate in assessment and is able to answer all questions appropriately. Care providers, pharmacy, and demographics verified. PCP: Brian Specialists: Wander- Ortho, Arthur- adjunct lecturer, Josephine-hematology, Chuck-pulmonology Preferred Pharmacy: [facility]. If [facility] closed, then [facility] in [place] Insurance: [facility] dual MCR Prescription Benefit: yes Living Will/HPOA: yes, Dee Wojdacz LNOK: sister Living Arrangements: Patient lives alone in single story apartment on the first floor. Patient states she is independent for self care. Transportation: self/sisters DME:Patient states she has tub bench, raised toilet, grab bars, lift chair, walker, wheelchair, medical alert, pulse ox, and scooter SNF/HHC: Patient has previously been to [place]. Patient has had [facility] in the past. Patient is active with [facility] and has Sreekanth as CM. Patient has aides 3x/week 2hrs/day. Patient was active with [facility], but they discharged her about 2-3 weeks ago. She states she does not think they will accept her back and she states she does not feel she needs them again. She also declines [facility], stating, I have a close friend who is a nurse and she keeps up with me. Plus I know what all I need to do and watch for. She also declines wanting HHC or to do OP therapy, stating she knows what exercises she can be doing at home and she does often do them. Patient wishes to discharge home, denies need for home health at this time. Patient states she has no further needs or concerns at this time. CM to follow for discharge planning needs that may arise. Plan: Patient to discharge home with family support and follow-up plans in place. Cathryn HERNANDEZ RN, CM
[2022-09-08] MEDS: 0.9% Saline Lock 10 ML Syringe IV (22:21)
[2022-09-08] MEDS: Venlafaxine HCl 75 MG Tablet 150 MG PO (22:21)
[2022-09-08] MEDS: Amitriptyline 25 MG Tablet PO (22:22)
[2022-09-08] MEDS: Atorvastatin Calcium 80 MG Tablet PO (22:22)
[2022-09-08 23:41] LABS: Bedside Glucose 128 mg/dL (74-106)
[2022-09-09] VITALS (7 sets, daily range): BP systolic 160–186; BP diastolic 85–93; PULSE 77–95; RESP 16–20; TEMP 36.8–37.2; O2SAT 96–98; BMI 43.4
[2022-09-09] MEDS: Acetaminophen 325 MG Tablet 650 MG PO (02:14)
[2022-09-09] MEDS: Dicyclomine 10 MG Capsule 20 MG PO ×2 (06:26→10:14)
[2022-09-09] MEDS: Levothyroxine 112 MCG Tablet PO (06:26)
[2022-09-09] MEDS: Budesonide Respules 0.5 MG/2 ML AMPUL.NEB. INHALATION (06:55)
[2022-09-09] MEDS: Albuterol 2.5 MG/3 ML VIAL.NEB. INHALATION (06:55)
[2022-09-09 07:00] LABS: Bedside Glucose 90 mg/dL (74-106)
[2022-09-09] MEDS: Multivitamins,Therapeutic Tablet 1 TABLET PO (10:14)
[2022-09-09] MEDS: DULoxetine Hcl 60 MG Capsule PO (10:14)
[2022-09-09] MEDS: Loratadine 10 MG Tablet PO (10:14)
[2022-09-09] MEDS: Venlafaxine HCl 75 MG Tablet PO (10:14)
[2022-09-09] MEDS: Calcium Carb/Vitamin D 1 TABLET Tablet PO (10:14)
[2022-09-09] MEDS: Magnesium Chloride 64 MG Delay Rel.Tablet 128 MG PO (10:14)
[2022-09-09] MEDS: Pantoprazole Sodium 40 MG Tablet PO (10:14)
[2022-09-09] MEDS: Carvedilol 25 MG Tablet PO (10:15)
[2022-09-09] MEDS: Ascorbic Acid 500 MG Tablet PO (10:15)
[2022-09-09] MEDS: Aspirin E.C. 81 MG Tablet PO (10:15)
[2022-09-09] MEDS: Pregabalin 50 MG Capsule 100 MG PO (10:15)
[2022-09-09] MEDS: Enoxaparin 40 MG/0.4 ML Syringe SC (10:15)
--- NOTE | 2022-09-09 11:21 | DCINST_ITS ---
Discharge Instructions Diet Discharge Diet: Low fat / Low cholesterol Activity Discharge Activity: Return to Normal Activity Weight Bearing Status: Weight bearing as tolerated Dressing / Incision Call your doctor if you observe: Dizziness, Chest pain and Increased palpitations (irregular heartbeat) Follow Up Care Test Results: Test results from this visit will be discussed in further detail at your follow- up appointment, if applicable. Discharge Plan Admission Admit Date/Time: 09/08/22 13:50 Primary Reason for Your Visit: acute CVA Attending Provider: Nichol Draper Primary Care Provider: Brandon Torres Consulting Providers: Ariella Call ; Lyle Camarena Instructions Patient Instructions: Booklet - [facility] Stroke ED - Living After Stroke, Booklet - Understanding Stroke Discharge Orders/Prescriptions Prescriptions: Continued Januvia 50 mg tablet 50 mg PO DAILY rosuvastatin [Crestor] 20 mg tablet 20 mg PO QHS calcium carbonate-vitamin D3 [Calcium 600 with Vitamin D3] 600 mg(1,500mg) - 500 unit capsule 1 cap PO DAILY magnesium oxide 400 mg magnesium capsule 400 mg PO DAILY ascorbate calcium (vitamin C) 500 mg tablet 500 mg PO DAILY tizanidine [Zanaflex] 4 mg tablet 4 mg PO Q8H PRN (Reason: Muscle Spasm) Culturelle 10 billion cell capsule 1 cap PO DAILY pregabalin 100 mg capsule 100 mg PO DAILY hydrocodone-acetaminophen 7.5-325 mg tablet 1 tab PO Q6H PRN (Reason: Pain) multivitamin 1 EACH tablet 1 ea PO DAILY Label Comments: vitamin pantoprazole 40 MG tablet 40 mg PO BID Label Comments: GERD amitriptyline 25 MG tablet 25 mg PO QHS duloxetine 60 MG capsule 60 mg PO BID valacyclovir [Valtrex] 500 MG tablet 500 mg PO DAILY dicyclomine 10 MG capsule 20 mg PO TIDAC venlafaxine 75 MG tablet 150 mg PO QHS Rx Instructions: 1 tab in morning and 2 tabs at HS zinc 50 mg capsule 50 mg PO/SL DAILY levothyroxine 112 MCG tablet 114 mcg PO/SL DAILY venlafaxine 75 mg Tablet 75 mg PO DAILY fluticasone propion-salmeterol [Advair Diskus] 100-50 mcg/dose Blister With Device 1 inh INHALATION BID Entresto 49-51 mg Tablet 1 tab PO BID cetirizine [Zyrtec] 10 mg Tablet 10 mg PO DAILY alendronate 70 MG tablet 70 mg PO Rx Instructions: takes on tuesdays aspirin 81 MG tablet,delayed release (DR/EC) 81 mg PO DAILY@0800 carvedilol [Coreg] 25 mg tablet 25 mg PO BID Rx Instructions: must administer with a meal/food Other Ambulatory Orders: Cardiac Holter Monitor, 48 Hrs (Routine) Timeframe: 1 Week Facility: [facility] - Location: Cardiovascular Services Ordered By: Dr. Nichol Draper Referrals / Follow Up: Alfa Owen MD [Med Staff - Active Staff] - Within 2 Weeks Brandon Torres DO [Primary Care Provider] - Within 1 Week Disposition Disposition (needs filled in before D/C Order can be placed): Home, Self Care
--- NOTE | 2022-09-09 11:25 | DS.PCM_ITS ---
Providers Date of Admission: 09/08/22 Date of Discharge: 09/09/22 Primary Care Physician: Dr. Brandon Torres DO Reason For Visit: R UE PARASTHESIAS/WEAKNESS Diagnosis Discharge Diagnosis (1) Arm paresthesia, right: Status: Acute Code(s): R20.2 - Paresthesia of skin (2) Right arm weakness: Status: Acute Code(s): R29.898 - Other symptoms and signs involving the musculoskeletal system Medications at Discharge Home Medications multivitamin 1 ea PO DAILY vitamin 12/29/17 pantoprazole 40 mg tablet,delayed release 40 mg PO BID GERD 03/29/19 amitriptyline 25 mg tablet 25 mg PO QHS mood 08/10/19 rosuvastatin 20 mg tablet (Crestor) 20 mg PO QHS cholesterol 08/25/19 sitagliptin phosphate 50 mg tablet (Januvia) 50 mg PO DAILY diabetes 09/04/19 dicyclomine 10 mg capsule 20 mg PO TIDAC cramping 10/19/20 duloxetine 60 mg capsule,delayed release 60 mg PO BID nerve pain 10/19/20 valacyclovir 500 mg tablet (Valtrex) 500 mg PO DAILY cold soars 10/19/20 tizanidine 4 mg tablet (Zanaflex) 4 mg PO Q8H PRN Muscle Spasm 01/26/21 ascorbate calcium (vitamin C) 500 mg tablet 500 mg PO DAILY vitamin 01/27/21 calcium carbonate 600 mg-vitamin D3 12.5 mcg (500 unit) capsule (Calcium 600 with Vitamin D3) 1 cap PO DAILY supplement 01/27/21 magnesium oxide 400 mg PO DAILY supplement 01/27/21 venlafaxine 75 mg tablet 150 mg PO QHS depression 02/04/21 Lactobacillus rhamnosus GG 10 billion cell capsule (Culturelle) 1 cap PO DAILY 05/18/21 pregabalin 100 mg capsule 100 mg PO DAILY Nerve pain 05/18/21 carvedilol 25 mg tablet (Coreg) 25 mg PO BID BP 08/23/21 fluticasone 100 mcg-salmeterol 50 mcg/dose blistr powdr for inhalation (Advair Diskus) 1 inh inhalation BID Breathing 02/11/22 sacubitril 49 mg-valsartan 51 mg tablet (Entresto) 1 tab PO BID Heart 02/11/22 venlafaxine 75 mg tablet 75 mg PO DAILY Depression 02/11/22 alendronate 70 mg tablet 70 mg PO TU BONES 02/13/22 cetirizine 10 mg tablet (Zyrtec) 10 mg PO DAILY ALLERGIES 02/13/22 aspirin 81 mg tablet,delayed release 81 mg PO DAILY@0800 [facility] 02/15/22 levothyroxine 114 mcg PO/SL DAILY 05/10/22 zinc 50 mg PO/SL DAILY 05/10/22 hydrocodone 7.5 mg-acetaminophen 325 mg tablet 1 tab PO Q6H PRN Pain 06/19/22 Hospital Course Procedures 2-D Echocardiogram Summary of Care Provided Minutes Spent on Discharge: 45 Hospital Course: Patient is a 61-year-old female with a past medical history as outlined was admitted through the ED on 09/08/2022 with a complaint of bilateral arm numbness and right upper extremity weakness. Her last known well was around 11 PM on the day of presentation and the symptoms started. Symptoms have been going on for about 2 to 2-1/2 hours prior to arrival. She had a remote history of stroke affecting her right lower extremity as well as chronic right lower extremity weakness. She had no facial droop. Her symptoms have improved by the time she came to the ED. CT of the brain showed a small infarct of the left occipital parietal watershed region with features suggestive of a possible subacute to early chronic acute stroke and a small chronic appearing right cerebellar lacunar infarct. CTA of the head and neck showed atherosclerotic plaque of abo ut 70% stenosis at the origin of the right internal carotid artery but otherwise negative. Since her symptoms are improved tPA was not given. She was admitted and managed for acute CVA. She was on aspirin and Plavix as well as high intensity statin and this was continued. 2D echo done showed EF of 55 to 60% with normal left ventricular systolic function. [facility] neurology was consulted and recommended ZAHRA and anticoagulation due to concerns for embolic stroke. I had a long discussion about this with patient who preferred to follow-up with her primary care doctor to make the decision about whether to start on anticoagulation. Per patient she had been on Plavix previously but this was discontinued on account of history of nosebleeds. She had also been having falls at home and had fallen and hit her head. She therefore wanted to see her primary care doctor as she felt her primary care doctor knew her best he knew all her medical history so that they would have a comprehensive discussion about the risk versus benefits of the anticoagulation before she would decide to take it. She also wanted to see the primary care doctor to discuss getting a ZAHRA so they could be coordinated through the [facility] system as that is where she had all her care. Neurology also recommended a loop recorder and patient again wanted to discuss this with her primary care doctor and to get it within the [facility] system as needed. Patient was discharged home on 09/09/2022 on p.o. aspirin as well as high intensity statin. She was discharged on a 48-hour event monitor she is to follow-up with her primary care doctor and was also referred to outpatient vascular surgery due to the right carotid artery stenosis of 70%. She is to follow-up with her primary care doctor on 09/11/2022 as prev iously scheduled. Patient seen and examined prior to discharge. She says she felt much better and wanted to go home. She had no active complaints and had an uneventful night. Review of systems otherwise negative. Labs and vitals reviewed. Home medication reviewed and reconciled.. Physical Exam Const alert, oriented x3 and no apparent distress General Appearance: cooperative, comfortable and well kempt Orientation / Consciousness: awake Exam Limitations: no limitations HEENT normocephalic, head/scalp atraumatic and hearing grossly normal bilaterally Mouth: oral and palatal mucosa normal Eyes PERRL and EOMs intact bilaterally Neck no lymphadenopathy and supple Resp normal respiratory effort, no retractions, no use of accessory muscles and clear to auscultation bilaterally Cardio regular rate, regular rhythm, S1 normal heart sound, S2 normal heart sound and no murmurs GI normal to inspection, nondistended, normoactive bowel sounds, soft to palpation, non-tender and non-distended Extremity normal to inspection and no clubbing, cyanosis or edema Extremity Narrative: RLE unable to dorsiflex, this is chronic. Power in other extremities otherwise 5/5 Skin no rashes or lesions noted Neuro oriented x3, CN's II-XII intact bilaterally, moves all extremities and no focal motor deficits Sensorium / Orientation: awake and alert Psych affect normal Weight / BMI Weight Weight: 237 lb 3.478 oz Body Mass Index (BMI) 43.4 ABG / Lab / Microbiology Data Result Diagrams: 09/08/22 06:10 09/08/22 06:10 Laboratory: Laboratory Results - last 24 hr 09/08/22 11:43: POC Glucose 94 09/08/22 16:43: POC Glucose 125 H 09/08/22 22:17: POC Glucose 128 H 09/09/22 06:25: POC Glucose 90 Radiography Diagnostic Testing: Radiology Impression Echocardiogram 09/08/22 05:55 Interpretation Summary The estimated ejection fraction is 55-60 %. Normal LV systolic function Contrast echo used No change from previous echo Ordering Physician: Ariella Call Performed By: Jenelle Shirley RCS D/C Instructions Discharge Diet: Low fat / Low cholesterol Weight Bearing Status: Weight bearing as tolerated Call your doctor if you observe: Dizziness, Chest pain and Increased palpitations (irregular heartbeat) Meaningful Use Info Meaningful Use Diagnoses (Choose all that apply): Ischemic CVA CVA Therapy Assessed for PT,OT and/or ST?: Yes Ischemic Stroke Antithrombotic order at d/c?: Yes Dx of Atrial fib/flutter?: No Anticoagulant at discharge?: No Reason anticoagulant not ordered: Treatment Refused by Pt Statins at discharge?: Yes Primary Dx Acute Ischemic CVA?: Yes IV tPA ordered during stay?: No Reason IV t-PA not ordered: Treatment not Indicated Discharge Plan Admission Admit Date/Time: 09/08/22 13:50 Primary Reason for Your Visit: acute CVA Attending Provider: Nichol Draper Primary Care Provider: Brandon Torres Consulting Providers: Ariella Call ; Lyle Camarena Instructions Patient Instructions: Booklet - [facility] Stroke ED - Living After Stroke, Booklet - Understanding Stroke Discharge Orders/Prescriptions Prescriptions: Continued Januvia 50 mg tablet 50 mg PO DAILY rosuvastatin [Crestor] 20 mg tablet 20 mg PO QHS calcium carbonate-vitamin D3 [Calcium 600 with Vitamin D3] 600 mg(1,500mg) - 500 unit capsule 1 cap PO DAILY magnesium oxide 400 mg magnesium capsule 400 mg PO DAILY ascorbate calcium (vitamin C) 500 mg tablet 500 mg PO DAILY tizanidine [Zanaflex] 4 mg tablet 4 mg PO Q8H PRN (Reason: Muscle Spasm) Culturelle 10 billion cell capsule 1 cap PO DAILY pregabalin 100 mg capsule 100 mg PO DAILY hydrocodone-acetaminophen 7.5-325 mg tablet 1 tab PO Q6H PRN (Reason: Pain) multivitamin 1 EACH tablet 1 ea PO DAILY Label Comments: vitamin pantoprazole 40 MG tablet 40 mg PO BID Label Comments: GERD amitriptyline 25 MG tablet 25 mg PO QHS duloxetine 60 MG capsule 60 mg PO BID valacyclovir [Valtrex] 500 MG tablet 500 mg PO DAILY dicyclomine 10 MG capsule 20 mg PO TIDAC venlafaxine 75 MG tablet 150 mg PO QHS Rx Instructions: 1 tab in morning and 2 tabs at HS zinc 50 mg capsule 50 mg PO/SL DAILY levothyroxine 112 MCG tablet 114 mcg PO/SL DAILY venlafaxine 75 mg Tablet 75 mg PO DAILY fluticasone propion-salmeterol [Advair Diskus] 100-50 mcg/dose Blister With Device 1 inh INHALATION BID Entresto 49-51 mg Tablet 1 tab PO BID cetirizine [Zyrtec] 10 mg Tablet 10 mg PO DAILY alendronate 70 MG tablet 70 mg PO Rx Instructions: takes on tuesdays aspirin 81 MG tablet,delayed release (DR/EC) 81 mg PO DAILY@0800 carvedilol [Coreg] 25 mg tablet 25 mg PO BID Rx Instructions: must administer with a meal/food Other Ambulatory Orders: Cardiac Holter Monitor, 48 Hrs (Routine) Timeframe: 1 Week Facility: [facility] - Location: Cardiovascular Services Ordered By: Dr. Nichol Draper Referrals / Follow Up: Alfa Owen MD [Med Staff - Active Staff] - Within 2 Weeks Brandon Torres DO [Primary Care Provider] - Within 1 Week Disposition Disposition (needs filled in before D/C Order can be placed): Home, Self Care Charges/Coding Visit Charges Inpatient E&M: 76885 Disch Hosp
[2022-09-09] MEDS: HYDROCODONE/APAP 7.5-325/15ML 15 ML UDC PO (11:32)
[2022-09-09 11:55] LABS: Bedside Glucose 125 mg/dL (74-106)
--- NOTE | 2022-09-09 18:47 | CASEMGMT ---
[facility] called [facility] to advise patient's case managers, [facility] that patient was admitted to the hospital and was discharged home. However, social services unable to leave a message for It[facility]. [facility] will follow up on Sunday. Lori PLATT
== END 2022-09-09 12:35 | disposition home or self-care (01) | DRG 65 ==
LOC: ED 02:18 → PCU 02:51
PROVIDERS: Internal Medicine; Admitting Provider Internal Medicine; Emergency Provider Emergency Medicine; PCP Student in an Organized Health Care Education/Training Program; Visit Provider Student in an Organized Health Care Education/Training Program
DX: I63.9 Cerebral infarction, unspecified (principal); I13.0 Hypertensive heart and chronic kidney disease with heart failure and stage 1 through stage 4 chronic kidney disease, or unspecified chronic kidney disease; I42.8 Other cardiomyopathies; I50.22 Chronic systolic (congestive) heart failure; E11.22 Type 2 diabetes mellitus with diabetic chronic kidney disease; G83.21 Monoplegia of upper limb affecting right dominant side; J44.9 Chronic obstructive pulmonary disease, unspecified; E11.51 Type 2 diabetes mellitus with diabetic peripheral angiopathy without gangrene; E11.40 Type 2 diabetes mellitus with diabetic neuropathy, unspecified; N18.30 Chronic kidney disease, stage 3 unspecified; I69.341 Monoplegia of lower limb following cerebral infarction affecting right dominant side; E66.01 Morbid (severe) obesity due to excess calories; E87.6 Hypokalemia; J30.2 Other seasonal allergic rhinitis; E03.9 Hypothyroidism, unspecified; K21.9 Gastro-esophageal reflux disease without esophagitis; E78.5 Hyperlipidemia, unspecified; I25.10 Atherosclerotic heart disease of native coronary artery without angina pectoris; I65.21 Occlusion and stenosis of right carotid artery; M48.02 Spinal stenosis, cervical region; G89.29 Other chronic pain; R29.703 NIHSS score 3; R29.701 NIHSS score 1; F32.A Depression, unspecified; M81.0 Age-related osteoporosis without current pathological fracture; Z79.01 Long term (current) use of anticoagulants; Z79.82 Long term (current) use of aspirin; Z79.84 Long term (current) use of oral hypoglycemic drugs; Z79.899 Other long term (current) drug therapy; Z87.891 Personal history of nicotine dependence
CPT/HCPCS: 36415; 70450; 70496; 70498; 70551; 71045; 72141; 80048; 80053; 80061; 82962; 83036; 83735; 84100; 84443; 84484; 85025; 85610; 85730; 92610; 93005; 93306; 94640; 94762; 97161; 97166; 99251; 99285; J7040; Q9957; Q9967; A4216; C8929; G0463

== ENCOUNTER → 2022-09-09 | Outpatient (CLI) | payer MEDICARE, MEDICAID, SELFPAY | END | disposition home or self-care (01) | LOC: CVS 12:14 | PROVIDERS: PCP Student in an Organized Health Care Education/Training Program; Visit Provider Student in an Organized Health Care Education/Training Program | DX: Z00.00 Encounter for general adult medical examination without abnormal findings (principal) ==

== ENCOUNTER 2022-09-11 09:07 | Inpatient (IN) | payer MEDICARE, MEDICAID, SELFPAY ==
[2022-09-11] VITALS (11 sets, daily range): BP systolic 92–140; BP diastolic 62–76; PULSE 71–98; RESP 14–18; TEMP 36.4–37.5; O2SAT 95–99; BMI 42.0; BMI 42.3
--- NOTE | 2022-09-11 09:09 | CT_ITS ---
STUDY: CT HEAD STROKE PROTOCOL W/O CONTRAST INJECTION REASON FOR EXAM: Female, 61 years old. Neuro deficit, acute, stroke suspected RADIATION DOSAGE (If Supplied By Facility): CTDIvol = ( 44.99 ) mGy, DLP = ( 796.11 ) mGycm TECHNIQUE: Transaxial CT imaging of the brain was performed without administration of intravenous contrast material. Individualized dose optimization techniques were used for this CT. COMPARISON: Comparison is made with prior study dated 09/08/2022. FINDINGS: Normal soft tissue structures. Normal calvarium. Normal size ventricles and extra-axial spaces for the patient''s age. Subtle area of decreased attenuation in the posterior left parietal lobe as seen on axial image #29. Stable focal area of decreased attenuation in the posterior left parietal occipital lobe. No evidence of surrounding edema or mass effect at this time. There is been no change. Normal basal ganglia and thalami. Normal brainstem. Normal cerebellum. There is no intracranial hemorrhage. There are no findings of an acute ischemic infarction. Normal visualized paranasal sinuses. ASPECT score: 9 CT/STROKE Brain/Head without Cont IMPRESSION: New subtle area of decreased attenuation in the posterior left parietal lobe as seen on axial image #29. N.B. : The above Results were Read Back by John Arredondo MD to Derick Alcantara and understanding confirmed on 09/11/2022 10:46:15 (ET). Electronically Signed: John Arredondo MD at 10:47 EST ,
--- NOTE | 2022-09-11 09:09 | EKG12_ITS ---
Test Reason : NUMBNESS Blood Pressure : / mmHG Vent. Rate : 081 BPM Atrial Rate : 081 BPM P-R Int : 176 ms QRS Dur : 094 ms QT Int : 414 ms P-R-T Axes : 049 030 041 degrees QTc Int : 480 ms Normal sinus rhythm Normal ECG Confirmed by PETRONA CASTRO, LUIS FERNANDO ([id number]), international editorial producer ANASTASIA HENSON ([id number]) on 09/13/2022 11:37:27 AM Referred By: Confirmed By:LUIS FERNANDO RUSS MD
--- NOTE | 2022-09-11 09:24 | EDS_ITS ---
HPI History of Present Illness Chief Complaint: Numb/Ting Informant: patient Onset/Context/Timing Onset: Hours (<1, around 45 minutes prior to arrival) Context: - (Awoke with symptoms) Timing: Continuous Quality and Location: Positive for Right Arm Parasthesia and Right Arm Weakness Current Severity: Moderate Maximum Severity: Severe Worsened by: Nothing in particular Relieved by: Nothing, has improved since onset Associated Symptoms Associated Symptoms: Positive for Nausea; Negative for Headache, Vomiting or Chest Pain Narrative Narrative: Patient presenting with similar symptoms to when she was admitted to the hospital recently for stroke work-up. She was just discharged from the hospital a couple days ago. She says she was admitted for stroke work-up and was told everything was unremarkable. She takes a baby aspirin daily, that has not been changed after her recent admission but she was due to follow-up this week at [facility] for further conversations about whether she should be on a stronger blood thinner or not. Patient states she spends most of her days in her recliner. She does crocheting. She was doing that last night without difficulty. She woke up this morning scrunched down toward the right in her right arm was like it was , unable to move it unable to feel it. She says things improved a little as she moves it around for the next 30 or 45 minutes, but things are not back to normal still and she called EMS to bring her here for reevaluation. She denies any trouble speaking, thinking. Headache, chest discomfort, palpitations, or any other symptoms. No recent fall or injury. She has chronic numbness right lower leg with a foot drop from a previous stroke. That is unchanged. Patient is right-hand dominant. [facility] Medical History ACTH deficiency Acute respiratory failure with hypoxia Allergic rhinitis Anemia Asthma Asthma exacerbation Atherosclerosis of coronary artery without angina pectoris Bilateral leg weakness Bone fracture Cardiomyopathy Carotid artery stenosis Carpal tunnel syndrome Chronic constipation with suspected IBS Chronic headaches Chronic systolic (congestive) heart failure CKD (chronic kidney disease) stage 3, GFR 30-59 ml/min Debility Essential hypertension Falls Flash pulmonary edema (01/16/21) Gait difficulty Gallstones GERD (gastroesophageal reflux disease) GI problem Herpes simplex History of Clostridium difficile infection History of CVA (cerebrovascular accident) (2018) History of depression History of emotional problems History of ischemic colitis Hx of diverticulitis of colon Hyperlipidemia Hypertension Hypotension Hypothyroidism Irritable bowel syndrome Kidney disease Neuropathy Non-ischemic cardiomyopathy Normochromic normocytic anemia Normocytic anemia Obesity Osteoarthritis Osteopenia Osteoporosis Peripheral vascular disease Pulmonary edema Right hemiparesis Seasonal allergies Secondary adrenal insufficiency Stomach ulcer Stroke/cerebrovascular accident Trigeminal trophic syndrome Type 2 diabetes mellitus Home Medications multivitamin 1 ea PO DAILY vitamin 12/29/17 [History Last Taken 02/12/22] pantoprazole 40 mg tablet,delayed release 40 mg PO BID GERD 03/29/19 [History Last Taken 02/12/22] amitriptyline 25 mg tablet 25 mg PO QHS mood 08/10/19 [History Last Taken 02/12/22] rosuvastatin 20 mg tablet (Crestor) 20 mg PO QHS cholesterol 08/25/19 [History Last Taken 02/12/22] sitagliptin phosphate 50 mg tablet (Januvia) 50 mg PO DAILY diabetes 09/04/19 [History Last Taken 02/12/22] dicyclomine 10 mg capsule 20 mg PO TIDAC cramping 10/19/20 [History Last Taken 02/12/22] duloxetine 60 mg capsule,delayed release 60 mg PO BID nerve pain 10/19/20 [History Last Taken 02/12/22] valacyclovir 500 mg tablet (Valtrex) 500 mg PO DAILY cold soars 10/19/20 [History Last Taken 02/12/22] tizanidine 4 mg tablet (Zanaflex) 4 mg PO Q8H PRN Muscle Spasm 01/26/21 [History Last Taken 02/12/22] ascorbate calcium (vitamin C) 500 mg tablet 500 mg PO DAILY vitamin 01/27/21 [History Last Taken 02/12/22] calcium carbonate 600 mg-vitamin D3 12.5 mcg (500 unit) capsule (Calcium 600 with Vitamin D3) 1 cap PO DAILY supplement 01/27/21 [History Last Taken 02/12/22] magnesium oxide 400 mg PO DAILY supplement 01/27/21 [History Last Taken 02/12/22] venlafaxine 75 mg tablet 150 mg PO QHS depression 02/04/21 [History Last Taken 02/12/22] Lactobacillus rhamnosus GG 10 billion cell capsule (Culturelle) 1 cap PO DAILY 05/18/21 [History Last Taken 02/12/22] pregabalin 100 mg capsule 100 mg PO DAILY Nerve pain 05/18/21 [History Last Taken 02/12/22] carvedilol 25 mg tablet (Coreg) 25 mg PO BID BP 08/23/21 [History Last Taken 02/12/22] fluticasone 100 mcg-salmeterol 50 mcg/dose blistr powdr for inhalation (Advair Diskus) 1 inh inhalation BID Breathing 02/11/22 [History Last Taken 02/12/22] sacubitril 49 mg-valsartan 51 mg tablet (Entresto) 1 tab PO BID Heart 02/11/22 [History Last Taken 02/12/22] venlafaxine 75 mg tablet 75 mg PO DAILY Depression 02/11/22 [History Last Taken 02/12/22] alendronate 70 mg tablet 70 mg PO TU BONES 02/13/22 [History Last Taken 02/07/22] cetirizine 10 mg tablet (Zyrtec) 10 mg PO DAILY ALLERGIES 02/13/22 [History Last Taken 02/12/22] aspirin 81 mg tablet,delayed release 81 mg PO DAILY@0800 Heart health 02/15/22 [History Last Taken Unknown] levothyroxine 114 mcg PO/SL DAILY 05/10/22 [History Last Taken Unknown] zinc 50 mg PO/SL DAILY 05/10/22 [History Last Taken Unknown] hydrocodone 7.5 mg-acetaminophen 325 mg tablet 1 tab PO Q6H PRN Pain 06/19/22 [History Last Taken Unknown] Allergy/AdvReac Type Severity Reaction Status Date / Time adhesive Allergy skin Verified 09/11/22 09:09 irritation amlodipine [From Norvasc] Allergy tachycardia Verified 09/11/22 09:09 hydromorphone HCl Allergy Itching Verified 09/11/22 09:09 [From Dilaudid] sulfamethoxazole Allergy made my Verified 09/11/22 09:09 [From Bactrim] cold sore huge trimethoprim [From Bactrim] Allergy made my Verified 09/11/22 09:09 cold sore huge Family History Grandfather Alcoholism Grandmother Myocardial infarction Mother Arthritis Diverticulitis COPD (chronic obstructive pulmonary disease) Afib Thyroid disorder Father Arthritis Diabetes Myocardial infarction Heart disease Ischemic Hypertension Hyperlipidemia Brother Arthritis Aunt Breast cancer Sister Arthritis Thyroid disorder Skin cancer Uncle Diabetes Surgical History Ankle fracture Fracture of left femur History of angioplasty of peripheral vessel (2010) History of arthroscopic knee surgery History of back surgery History of bilateral knee replacement History of carpal tunnel release History of cholecystectomy History of intestine removal History of left heart catheterization (2011) History of tonsillectomy and adenoidectomy History of trigger finger History of ventral hernia repair Strangulated ventral hernia Social History household members: none Smoking Status: Former smoker how long ago did patient quit smokin alcohol intake: never substance use type: does not use what type of physical activity do you participate in: other ROS ROS ED Constitutional Constitutional ED: Denies chills or fever(s) Eyes Eyes: Denies change in vision or diplopia ENT ENT ED: Denies rhinorrhea or sore throat Cardiovascular Cardiovascular: Denies chest pain or palpitations Respiratory/Chest Respiratory/Chest: Denies cough or dyspnea Gastrointestinal Gastrointestinal: Reports nausea; Denies abdominal pain, diarrhea or vomiting Genitourinary Genitourinary ED: Denies dysuria or hematuria Musculoskeletal Musculoskeletal: Denies back pain or neck pain Integumentary Denies abscess or rash Neurologic Neurologic: Reports as per HPI, paresthesias and weakness; Denies abnormal speech, confusion or headache(s) Psychiatric Psychiatric: Denies anxiety or suicidal thoughts EXAM Physical Exam Const Vital Signs: 09/11/22 09:11 Temperature 97.8 F Temperature Source Temporal Pulse Rate 82 Respiratory Rate 18 Blood Pressure 92/64 Blood Pressure Mean 73 Pulse Ox 98 Oxygen Delivery Method Room Air Positive well nourished, well developed and obese General Appearance ED: well developed and NAD Nutritional Appearance: obese HEENT Reports moist mucous membranes normocephalic and atraumatic Eyes PERRL and EOMs intact bilaterally Neck full ROM and supple Resp normal respiratory effort and clear to auscultation bilaterally Cardio regular rate, regular rhythm and no murmurs GI non-tender and non-distended Auscultation: normoactive bowel sounds Palpation: soft Back/Spine no CVA tenderness General Back: other FROM Extremity normal to inspection Extremity Narrative: Normal 2+/4 radial pulses. Faint in feet but symmetric with brisk cap refill distally. General Extremety ED: Negative for edema, pulses abnormal or tenderness General Extremity: Negative for edema or pulses abnormal Neuro oriented x3 and CN's II-XII intact bilaterally Neuro Narrative: Able to move right upper extremity proximally but not distally. Decreased sensation throughout the arm but she can feel grossly. She has pre-existing drift in the right lower extremity. Sensorium / Orientation: awake and alert Psych mental status grossly normal Skin no rashes or lesions noted and no wounds NIHSS NIHSS Initial: 1a Level of Consciousness: 0 1b LOC Questions (Score 2 if aphasic/stupor): 0 1c LOC Commands (Only score 1st attempt): 0 2 Best Gaze (If aphasic, use reflexive mvmts.): 0 3 Visual: 0 4 Facial Palsy: 0 5 Motor Arm Right (UN = amputation/fusion): 3 5 Motor Arm Left: 0 6 Motor Leg Right: 1 6 Motor Leg Left: 0 7 Limb ataxia (Only + if out of proportion): 0 8 Sensory (Aphasia/stupor=0 or 1, coma=2): 1 9 Best Language: 0 10 Dysarthria (mute, coma=2, intubated=UN): 0 11 Extinction and Inattention (only scored if +): 0 Total Score: 5 MDM MDM MDM Narrative Medical decision making narrative: Regarding the CT findings I discussed with stroke neurology from [facility], he advised loading the patient with Plavix 300 mg, followed by clopidogrel daily along with aspirin for the next 21 days, and then switching her over to clopidogrel completely. Plan is to admit her to the hospital since she still has the deficit, discussed with hospitalist. Of note it appears the patient had been on aspirin and Plavix in the past, but discontinued the Plavix because she was having significant nosebleeds. She understands the risk-benefit profile here and is agreeable to going back on Plavix for right now. Apparently the talk she was going to have with her PCP at her appointment which actually was today was regarding whether she should be anticoagulated or not. Lab Data Attestation: I reviewed the patient's lab results. Labs: Laboratory Results - last 24 hr 09/11/22 09/11/22 10:10 10:10 WBC 9.3 RBC 3.14 L Hgb 9.6 L Hct 30.4 L MCV 96.8 MCH 30.6 MCHC 31.6 L RDW Std Deviation 51.3 H RDW Coeff of Lencho 14.6 Plt Count 236 MPV 9.9 Immature Gran % (Auto) 1.000 H Neut % (Auto) 79.1 H Lymph % (Auto) 12.7 L [place] % (Auto) 6.0 Eos % (Auto) 0.7 Baso % (Auto) 0.5 Absolute Neuts (auto) 7.4 Absolute Lymphs (auto) 1.19 Nucleated RBC % 0 Sodium 137 Potassium 4.0 Chloride 105 Carbon Dioxide 25.0 Anion Gap 7 BUN 26 H Creatinine 1.88 H Estim Creat Clear Calc 27.14 Est GFR (MDRD) Af Amer 35 L Est GFR (MDRD) Non-Af 29 L BUN/Creatinine Ratio 13.8 Glucose 104 Calcium 9.7 Troponin I High Sens 10 Radiography Diagnostic Testing: Clinical Impression(s) from Imaging Studies Brain CT 09/11/22 09:09 IMPRESSION: New subtle area of decreased attenuation in the posterior left parietal lobe as seen on axial image #29. N.B. : The above Results were Read Back by John Arredondo MD to Derick Alcantara and understanding confirmed on 09/11/2022 10:46:15 (ET). Electronically Signed: John Arredondo MD at 10:47 EST , ADDENDUM: 09/11/22 1054 IMPRESSION: New subtle area of decreased attenuation in the posterior left parietal lobe as seen on axial image #29. N.B. : The above Results were Read Back by John Arredondo MD to Derick Alcantara and understanding confirmed on 09/11/2022 10:46:15 (ET). Electronically Signed: John Arredondo MD at 10:47 EST , Rhythm Strip Rhythm Strip: Sinus Rhythm Rate: 80 Ectopy: None EKG Initial EKG: Attestation: I personally reviewed and interpreted this EKG as follows: Interpretation: Sinus Rhythm and No Acute Injury Pattern Stroke Documentation Questions Stroke Team Activated: No (Not a tPA candidate, symptoms improving, recent CTA for same was negative) Was Patient considered for Endovascular Intervention?: No-CTA not indicated ([facility] neurology in agreement) IV Alteplase (t-PA) Administered: No (Timing/last known well) Discharge Plan Dx/Rx/DC Orders Clinical Impression: Acute ischemic stroke Disposition Disposition: Acute Care Hospital [facility]
--- NOTE | 2022-09-11 10:11 | CASEMGMT ---
CECE Note CECE called Itz Henry at [facility] and left voice mail for her advising that patient was discharged Sunday but is currently in the ED again. CECE spoke to patient. She had called Itz and advised she was home yesterday. Patient is on the waiver program. Lori PLATT
[2022-09-11 10:21] LABS: Absolute Lymphocyte Count 1.19 X10^3/uL (0.83-4.51); Absolute Neutrophil Count 7.4 X10^3/uL (2.0-7.7); Basophil# 0.05 X10^3/uL; Basophil% 0.5 % (0-1); Eosinophil# 0.07 X10^3/uL; Eosinophils% 0.7 % (0-5); Hematocrit 30.4 % (37-47); Hemoglobin 9.6 g/dL (12.0-15.0); Lymphocyte # 1.19 X10^3/ul (0.83-4.51); Lymphocyte % 12.7 % (19-41); Mean Corp Hgb Conc 31.6 g/dL (32-36); Mean Corpuscular Hgb 30.6 pg (27.0-32.0); Mean Corpuscular Volume 96.8 fL (81-99); Mean Platelet Vol. 9.9 fl (6.2-12.0); Monocyte# 0.56 X10^3/uL; NRBC Flagged by Analyzer 0 % (0-5); Neutrophil # 7.38 X10^3/uL (2.7-7.7); Neutrophil % 79.1 % (47-70); Platelet Count 236 K/mm3 (150-450); RBC Distribution Width CV 14.6 % (11.6-14.6); RBC Distribution Width SD 51.3 fl (35.1-43.9); Red Blood Count 3.14 M/mm3 (4.2-5.4); White Blood Count 9.3 K/mm3 (4.4-11.0)
[2022-09-11 10:58] LABS: Anion Gap 7 (5-15); BUN 26 mg/dL (7-18); BUN/Creat Ratio 13.8 RATIO (10-20); Calcium,Total 9.7 mg/dL (8.5-10.1); Chloride 105 mmol/L (98-107); Creatinine, Serum 1.88 mg/dL (0.55-1.02); EST Glomerular Filtration Rate 29 mL/min (>60); Est Glom Filt Rate - Afr Amer 35 mL/min (>60); Estimated Creatinine Clearance 27.14 ml/min; Glucose 104 mg/dL (74-106); Sodium Level 137 mmol/L (136-145); Troponin-I HS 10 pg/mL (3.0-54.0)
--- NOTE | 2022-09-11 11:07 | HP.PCM.HOS_ITS ---
[facility] - General General Date of Admission: 09/11/22 Date of Service: 09/11/22 HPI Narrative BILL CHOI, is a 61 F with a PMH as outlined who presents via the ED with a complaint of right arm weakness and numbness. She was recently here for a stroke and was discharged home just 2 days ago. At that time, neurologist recommended anticoagulation due to concern for arrhythmia. Patient however preferred to follow up with her PCP to discuss the risk and benefits of anticoagulation due to a history of falls and nosebleeds. He was continued on her aspirin. Patient said she did some crocheting last night but woke up this morning with weakness in her right arm. She could not move her right arm will feel it. His symptoms improved very little and she could not regain function of her right upper extremity so she called the EMS. She denied any dizziness, lightheadedness, mouth droop, slurred speech or headache or any other symptoms. She did have chronic numbness of her right lower extremity with associated foot drop and this was from a previous stroke. At time of review vitals were temperature of 98 Fahrenheit with pulse rate of 81 and blood pressure of 103/66. Respiratory rate was 16. CT of the brain showed new subtle area of decreased attenuation in the left posterior parietal lobe with no significant change. There were therefore no findings of new acute ischemic infarct. She was admitted to be managed for right upper extremity weakness thought to be a sequelae of her most recent stroke. [facility] Medical History ACTH deficiency Acute respiratory failure with hypoxia Allergic rhinitis Anemia Asthma Asthma exacerbation Atherosclerosis of coronary artery without angina pectoris Bilateral leg weakness Bone fracture Cardiomyopathy Carotid artery stenosis Carpal tunnel syndrome Chronic constipation with suspected IBS Chronic headaches Chronic systolic (congestive) heart failure CKD (chronic kidney disease) stage 3, GFR 30-59 ml/min Debility Essential hypertension Falls Flash pulmonary edema (01/16/21) Gait difficulty Gallstones GERD (gastroesophageal reflux disease) GI problem Herpes simplex History of Clostridium difficile infection History of CVA (cerebrovascular accident) (2018) History of depression History of emotional problems History of ischemic colitis Hx of diverticulitis of colon Hyperlipidemia Hypertension Hypotension Hypothyroidism Irritable bowel syndrome Kidney disease Neuropathy Non-ischemic cardiomyopathy Normochromic normocytic anemia Normocytic anemia Obesity Osteoarthritis Osteopenia Osteoporosis Peripheral vascular disease Pulmonary edema Right hemiparesis Seasonal allergies Secondary adrenal insufficiency Stomach ulcer Stroke/cerebrovascular accident Trigeminal trophic syndrome Type 2 diabetes mellitus Home Medications multivitamin 1 tab PO DAILY vitamin 12/29/17 [History Last Taken 09/10/22] pantoprazole 40 mg tablet,delayed release 40 mg PO BID GERD 03/29/19 [History Last Taken 09/10/22] amitriptyline 25 mg tablet 25 mg PO QHS mood 08/10/19 [History Last Taken 09/10/22] rosuvastatin 20 mg tablet (Crestor) 20 mg PO QHS cholesterol 08/25/19 [History Last Taken 09/10/22] sitagliptin phosphate 50 mg tablet (Januvia) 50 mg PO DAILY diabetes 09/04/19 [History Last Taken 09/10/22] duloxetine 60 mg capsule,delayed release 60 mg PO BID nerve pain 10/19/20 [History Last Taken 09/10/22] valacyclovir 500 mg tablet (Valtrex) 500 mg PO DAILY cold soars 10/19/20 [History Last Taken 09/10/22] tizanidine 4 mg tablet (Zanaflex) 4 mg PO Q8H PRN Muscle Spasm 01/26/21 [History Last Taken 09/10/22] ascorbate calcium (vitamin C) 500 mg tablet 500 mg PO DAILY vitamin 01/27/21 [History Last Taken 09/10/22] calcium carbonate 600 mg-vitamin D3 12.5 mcg (500 unit) capsule (Calcium 600 with Vitamin D3) 1 cap PO DAILY supplement 01/27/21 [History Last Taken 09/10/22] magnesium oxide 400 mg PO DAILY supplement 01/27/21 [History Last Taken 09/10/22] venlafaxine 75 mg tablet 150 mg PO QHS depression 02/04/21 [History Last Taken 09/10/22] Lactobacillus rhamnosus GG 10 billion cell capsule (Culturelle) 1 cap PO DAILY 05/18/21 [History Last Taken 09/10/22] pregabalin 100 mg capsule 100 mg PO DAILY Nerve pain 05/18/21 [History Last Taken 09/10/22] carvedilol 25 mg tablet (Coreg) 25 mg PO BID BP 08/23/21 [History Last Taken 09/10/22] fluticasone 100 mcg-salmeterol 50 mcg/dose blistr powdr for inhalation (Advair Diskus) 1 inh inhalation BID Breathing 02/11/22 [History Last Taken 09/10/22] sacubitril 49 mg-valsartan 51 mg tablet (Entresto) 1 tab PO BID Heart 02/11/22 [History Last Taken 09/10/22] alendronate 70 mg tablet 70 mg PO TU BONES 02/13/22 [History Last Taken 09/05/22] cetirizine 10 mg tablet (Zyrtec) 10 mg PO DAILY ALLERGIES 02/13/22 [History Last Taken 09/10/22] aspirin 81 mg tablet,delayed release 81 mg PO DAILY@0800 Heart health 02/15/22 [History Last Taken 09/10/22] zinc 50 mg PO/SL DAILY 05/10/22 [History Last Taken 09/10/22] hydrocodone 7.5 mg-acetaminophen 325 mg tablet 1 - 2 tab PO Q8H PRN Pain 06/19/22 [History Last Taken 09/10/22] dicyclomine 20 mg tablet 20 mg PO TIDCM 09/11/22 [History Last Taken 09/10/22] guaifenesin 600 mg tablet, extended release 12 hr (Mucinex) 1,200 mg PO BID 09/11/22 [History Last Taken 09/10/22] hydralazine 25 mg tablet 25 mg PO TID bp 09/11/22 [History Last Taken 09/10/22] levothyroxine 112 mcg tablet 112 mcg PO DAILY 09/11/22 [History Last Taken 09/10/22] Allergy/AdvReac Type Severity Reaction Status Date / Time adhesive Allergy skin Verified 09/11/22 09:09 irritation amlodipine [From Norvasc] Allergy tachycardia Verified 09/11/22 09:09 hydromorphone HCl Allergy Itching Verified 09/11/22 09:09 [From Dilaudid] sulfamethoxazole Allergy made my Verified 09/11/22 09:09 [From Bactrim] cold sore huge trimethoprim [From Bactrim] Allergy made my Verified 09/11/22 09:09 cold sore huge Family History Grandfather Alcoholism Grandmother Myocardial infarction Mother Arthritis Diverticulitis COPD (chronic obstructive pulmonary disease) Afib Thyroid disorder Father Arthritis Diabetes Myocardial infarction Heart disease Ischemic Hypertension Hyperlipidemia Brother Arthritis Aunt Breast cancer Sister Arthritis Thyroid disorder Skin cancer Uncle Diabetes Surgical History Ankle fracture Fracture of left femur History of angioplasty of peripheral vessel (2010) History of arthroscopic knee surgery History of back surgery History of bilateral knee replacement History of carpal tunnel release History of cholecystectomy History of intestine removal History of left heart catheterization (2011) History of tonsillectomy and adenoidectomy History of trigger finger History of ventral hernia repair Strangulated ventral hernia Social History household members: none Smoking Status: Former smoker how long ago did patient quit smokin alcohol intake: never substance use type: does not use what type of physical activity do you participate in: other ROS Constitutional Constitutional: Denies anorexia, change in weight, chills, fatigue, fever(s), malaise or weakness Eyes Eyes: Denies blurry vision or change in vision ENT HEENT: Denies dysphagia, headache(s) or sore throat Cardiovascular Cardiovascular: Denies chest pain, dyspnea on exertion, edema, lightheadedness, palpitations, rapid heart rate or syncope Respiratory/Chest Respiratory/Chest: Denies cough, productive cough, shortness of breath at rest or shortness of breath with exertion Gastrointestinal Gastrointestinal: Denies abdominal pain, constipation, diarrhea, nausea or vomiting Genitourinary Genitourinary: Denies burning urination, dysuria or hematuria Musculoskeletal Musculoskeletal: Denies arthralgias Neurologic Neurologic: Denies confusion, dizziness, focal weakness or headache(s) Psychiatric Psychiatric: Denies anxiety Endocrine Endocrinology: Denies change in body appearance Hematologic/Lymphatic Hematologic/Lymphatic: Denies anemia Vital Signs Vital Signs Vital Signs: 09/11/22 09:11 Temperature 97.8 F Temperature Source Temporal Pulse Rate 82 Respiratory Rate 18 Blood Pressure 92/64 Blood Pressure Mean 73 Pulse Ox 98 Oxygen Delivery Method Room Air Weight Weight: 244 lb 11.41 oz Body Mass Index (BMI) 42.0 Physical Exam Const alert, oriented x3, no apparent distress and healthy appearing General Appearance: cooperative HEENT normocephalic, head/scalp atraumatic, hearing grossly normal bilaterally and moist oral mucous membranes Mouth: oral and palatal mucosa normal Eyes PERRL, EOMs intact bilaterally and conjunctivae normal Neck no lymphadenopathy and supple Resp normal respiratory effort, no retractions, no use of accessory muscles and clear to auscultation bilaterally Cardio regular rate, regular rhythm, S1 normal heart sound, S2 normal heart sound and no murmurs GI normal to inspection, nondistended, normoactive bowel sounds, soft to palpation, non-tender and non-distended Extremity normal to inspection Neuro oriented x3 and CN's II-XII intact bilaterally Neuro Narrative: power in RUE is 2/5, with associated numbness Sensorium / Orientation: awake, alert, oriented to person, oriented to place and oriented to time Psych Psych Narrative: tearful Results Lab / Micro Data Result Diagrams: 09/11/22 10:10 09/11/22 10:10 Labs: Laboratory Results - last 24 hr 09/11/22 10:10: WBC 9.3, RBC 3.14 L, Hgb 9.6 L, Hct 30.4 L, MCV 96.8, MCH 30.6, MCHC 31.6 L, RDW Std Deviation 51.3 H, RDW Coeff of Lnecho 14.6, Plt Count 236, MPV 9.9, Immature Gran % (Auto) 1.000 H, Neut % (Auto) 79.1 H, Lymph % (Auto) 12.7 L , [place] % (Auto) 6.0, Eos % (Auto) 0.7, Baso % (Auto) 0.5, Absolute Neuts (auto) 7.4, Absolute Lymphs (auto) 1.19, Nucleated RBC % 0 09/11/22 10:10: Sodium 137, Potassium 4.0, Chloride 105, Carbon Dioxide 25.0, Anion Gap 7, BUN 26 H, Creatinine 1.88 H, Estim Creat Clear Calc 27.14, Est GFR (MDRD) Af Amer 35 L, Est GFR (MDRD) Non-Af 29 L, BUN/Creatinine Ratio 13.8, Glucose 104, Calcium 9.7, Troponin I High Sens 10 Rhythm Strip Rhythm Strip: Sinus Rhythm Rate: 80 Ectopy: None Radiology Impression Brain CT 09/11/22 09:09 IMPRESSION: New subtle area of decreased attenuation in the posterior left parietal lobe as seen on axial image #29. N.B. : The above Results were Read Back by John Arredondo MD to Derick Alcantara and understanding confirmed on 09/11/2022 10:46:15 (ET). Electronically Signed: John Arredondo MD at 10:47 EST , ADDENDUM: 09/11/22 1054 IMPRESSION: New subtle area of decreased attenuation in the posterior left parietal lobe as seen on axial image #29. N.B. : The above Results were Read Back by John Arredondo MD to Derick Alcantara and understanding confirmed on 09/11/2022 10:46:15 (ET). Electronically Signed: John Arredondo MD at 10:47 EST , Assessment & Plan Assessment/Plan (1) Right arm weakness: PLAN: Plan #RUE weakness * this is likely a sequelae of her most recent stroke * CT of hte brain showed stable area of decreased attenuation int eh posterior left parietal lobe with no findings of acute ischemic infarction * on aspirin; will add on plavix * teleneurology reviewed patient and recommended adding on plavix for 3 weeks, then to continue on only plavix * continue high intensity statin * PT/OT consult * fall precautions * 2D echo from 09/08/2022 showed EF of 55-60% with normal LV systolic function * #Cervical stenosis * MRI of the cervical spine showed moderate stenosis of C3 and C4 as well as C5 and C6. This could be contributing to above symptoms possibly. * Follow-up with PCP for referral to spine surgeon * #Right carotid artery stenosis: CTA showed 70% stenosis, carotid stenosis on the right. Follow-up with vascular surgery on outpatient basis. #Hypertension: Continue current BP meds #Hyperlipidemia: On statin #COPD: Not in exacerbation. Continue breathing treatment with bronchodilators. #Type 2 diabetes mellitus: On insulin sliding scale. Accu-Cheks ACH S. #GERD: On PPI #DVT prophylaxis: Lovenox Charges/Coding Visit Charges OBSV E&M: 45082 Initial observation care L3
[2022-09-11] MEDS: Clopidogrel Bisulfate 300 MG Tablet PO (11:32)
--- NOTE | 2022-09-11 11:54 | CM.ED ---
[facility] left voice mail for Itz Henry advising patient is being admitted to PCU unit at [facility] and dialysis social worker will be Zulema and provided Zulema's phone number. [facility] left voice mail for Zulema regarding this contact. Lori PLATT
--- NOTE | 2022-09-11 15:10 | MRI_ITS ---
We are attempting to reach an attending provider to discuss findings. An addendum with communication details will be sent when the communication is complete. STUDY: MRI BRAIN WITHOUT CONTRAST REASON FOR EXAM: Female, 61 years old. acute CVA TECHNIQUE: Standardized multiplanar fat and water weighted pulse sequences were obtained. COMPARISON: 09/08/2022 FINDINGS: Normal size of the ventricles and extra-axial spaces for the patient''s age. Mild periventricular white matter ischemic changes. There are foci of gliosis in the anterior and posterior left parietal lobe. There is T2 shine through in left posterior parietal lobe with associated lamellar necrosis. There is restricted diffusion within the anterior parietal lobe lesion consistent with acute ischemic changes. There are also chronic ischemic changes in the left cerebellar hemisphere but restricted diffusion in the right cerebellar hemisphere consistent with acute ischemic changes.. Normal bilateral basal ganglia. Normal thalami. There is no extra-axial fluid accumulation. Normal flow voids within the major intracranial circulation suggesting patency by spin echo criteria. Normal sella turcica, pituitary gland, infundibular stalk, optic chiasm and hypothalamus. Normal tectal plate and pineal gland. Normal midbrain, lu and medulla. Normal cerebellum. Normal basal cisterns. Normal bilateral temporal bones. Normal bilateral internal auditory canals. No demonstrated orbital abnormality, within the constraints of a routine brain study. Normal visualized paranasal sinuses. Normal calvarium and skull base. Normal visualized soft tissue structures. Normal visualized upper cervical spine. MRI/Brain without Contrast IMPRESSION: New acute infarct in the left anterior parietal lobe and small acute ischemic infarction in the right cerebellar hemisphere suggesting embolic disease. Clinical correlation recommende Subacute to chronic left posterior parietal infarct Electronically Signed: Nilay London MD at 20:03 EST ,
[2022-09-11] MEDS: Dicyclomine 10 MG Capsule 20 MG PO (17:06)
[2022-09-11] MEDS: HYDROCODONE/APAP 7.5-325/15ML 15 ML UDC PO (17:07)
[2022-09-11 17:21] LABS: Bedside Glucose 75 mg/dL (74-106)
[2022-09-11] MEDS: Pregabalin 50 MG Capsule 100 MG PO (18:35)
[2022-09-11] MEDS: Albuterol 2.5 MG/3 ML VIAL.NEB. INHALATION (19:38)
[2022-09-11] MEDS: Budesonide Respules 0.5 MG/2 ML AMPUL.NEB. INHALATION (19:38)
[2022-09-11] MEDS: DULoxetine Hcl 60 MG Capsule PO (21:50)
[2022-09-11] MEDS: Atorvastatin Calcium 40 MG Tablet PO (21:51)
[2022-09-11] MEDS: Venlafaxine HCl 75 MG Tablet 150 MG PO (21:51)
[2022-09-11] MEDS: guaiFENesin 1,200 MG Tablet 1200 MG PO (21:51)
[2022-09-11] MEDS: SACUBITRIL/VALSARTAN 49-51 MG TABLET 1 EACH PO (21:52)
[2022-09-11] MEDS: Pantoprazole Sodium 40 MG Tablet PO (21:52)
[2022-09-11] MEDS: Amitriptyline 25 MG Tablet PO (21:53)
[2022-09-12] VITALS (17 sets, daily range): BP systolic 116–159; BP diastolic 69–93; PULSE 88–107; RESP 16–18; TEMP 35.7–36.8; O2SAT 93–100; BMI 42.3
[2022-09-12] MEDS: Alendronate Sodium 70 MG Tablet PO (05:42)
[2022-09-12] MEDS: Levothyroxine 112 MCG Tablet PO (05:42)
--- NOTE | 2022-09-12 05:55 | CDU_ITS ---
Reason For Study: CVA Rt. Velocities/BP Lt. Velocities/BP Prox CCA 64.5/11.6 cm/sec. Prox CCA 63.0/17.6 cm/sec. Mid CCA 41.9/13.5 cm/sec. Mid CCA 63.0/20.0 cm/sec. Dist CCA 44.7/14.5 cm/sec. Dist CCA 55.6/17.6 cm/sec. Prox ICA 158.7/53.3 cm/sec. Prox ICA 54.4/16.3 cm/sec. Mid ICA 126.6/27.9 cm/sec. Mid ICA 81.4/27.4 cm/sec. Dist ICA 102.8/22.5 cm/sec. Dist ICA 92.5/37.2 cm/sec. Rt. ICA/CCA = 3.8. Lt. ICA/CCA = 1.5. Prox ECA 67.4/6.0 cm/sec. Prox ECA 126.6/17.0 cm/sec. Rt. Vert. 53.2/16.3 cm/sec. Lt. Vert. 43.3/13.9 cm/sec. Right Extracranial There is intimal thickening but no significant atherosclerotic plaque noted in the right common carotid artery. There is heterogeneous, irregular atherosclerotic plaque noted in the right internal carotid artery. There is homogeneous, smooth atherosclerotic plaque noted in the right external carotid artery. Antegrade flow is noted in the right vertebral artery. Left Extracranial There is intimal thickening but no significant atherosclerotic plaque noted in the left common carotid artery. There is heterogeneous, irregular atherosclerotic plaque noted in the left internal carotid artery. There is heterogeneous, irregular atherosclerotic plaque noted in the left external carotid artery. Antegrade flow is noted in the left vertebral artery. Procedure Carotid Duplex 85160. This is a Carotid Duplex examination using B-mode, color flow and specral Doppler. The exam was diagnostic. Exam performed portable in patient room. VL/Carotid Duplex Ultrasound Interpretation Summary Irregular calcific plaque at the proximal right internal carotid artery with 50 to 69% stenosis Less than 50% stenosis right external carotid artery Irregular calcific plaque at the proximal left internal carotid artery with les s than 50% stenosis Less than 50% stenosis left external carotid artery Patent and antegrade vertebral arteries bilaterally Seemingly no change from a previous examination of November Ordering Physician: Jordi Kasper Performed By: Andrea Jaimes RVT
[2022-09-12 07:23] LABS: Absolute Lymphocyte Count 1.79 X10^3/uL (0.83-4.51); Absolute Neutrophil Count 3.5 X10^3/uL (2.0-7.7); Basophil# 0.04 X10^3/uL; Basophil% 0.7 % (0-1); Eosinophil# 0.23 X10^3/uL; Eosinophils% 3.8 % (0-5); Hematocrit 32.6 % (37-47); Hemoglobin 10.4 g/dL (12.0-15.0); Lymphocyte # 1.79 X10^3/ul (0.83-4.51); Lymphocyte % 29.4 % (19-41); Mean Corp Hgb Conc 31.9 g/dL (32-36); Mean Corpuscular Volume 93.9 fL (81-99); Mean Platelet Vol. 10.1 fl (6.2-12.0); Monocyte# 0.47 X10^3/uL; Monocyte% 7.7 % (0-10); NRBC Flagged by Analyzer 0 % (0-5); Neutrophil # 3.53 X10^3/uL (2.7-7.7); Neutrophil % 58.1 % (47-70); Platelet Count 183 K/mm3 (150-450); RBC Distribution Width CV 14.2 % (11.6-14.6); Red Blood Count 3.47 M/mm3 (4.2-5.4); White Blood Count 6.1 K/mm3 (4.4-11.0)
[2022-09-12] MEDS: Budesonide Respules 0.5 MG/2 ML AMPUL.NEB. INHALATION ×2 (07:48→19:22)
[2022-09-12] MEDS: Albuterol 2.5 MG/3 ML VIAL.NEB. INHALATION ×2 (07:48→13:38)
[2022-09-12 07:57] LABS: Anion Gap 4 (5-15); BUN 24 mg/dL (7-18); BUN/Creat Ratio 21.8 RATIO (10-20); Calcium,Total 9.5 mg/dL (8.5-10.1); Chloride 107 mmol/L (98-107); Cholesterol 140 mg/dL (200); EST Glomerular Filtration Rate 54 mL/min (>60); Est Glom Filt Rate - Afr Amer 65 mL/min (>60); Estimated Creatinine Clearance 42.48 ml/min; Glucose 132 mg/dL (74-106); High Density Lipoprotein 42 mg/dL; Potassium 3.8 mmol/L (3.5-5.1); Sodium Level 138 mmol/L (136-145); Triglycerides 345 mg/dL; Very Low Density Lipoprotein 69 mg/dL (5-40)
[2022-09-12] MEDS: LINAGLIPTIN 5 MG TABLET PO (10:06)
[2022-09-12] MEDS: Clopidogrel Bisulfate 75 MG Tablet PO (10:06)
[2022-09-12] MEDS: SACUBITRIL/VALSARTAN 49-51 MG TABLET 1 EACH PO ×2 (10:06→21:10)
[2022-09-12] MEDS: Acyclovir 200 MG Capsule 400 MG PO ×2 (10:06→21:11)
[2022-09-12] MEDS: Pantoprazole Sodium 40 MG Tablet PO ×2 (10:06→21:10)
[2022-09-12] MEDS: Venlafaxine HCl 75 MG Tablet PO (10:06)
[2022-09-12] MEDS: Ascorbic Acid 500 MG Tablet PO (10:06)
[2022-09-12] MEDS: Magnesium Chloride 64 MG Delay Rel.Tablet 128 MG PO (10:06)
[2022-09-12] MEDS: Aspirin E.C. 81 MG Tablet PO (10:07)
[2022-09-12] MEDS: Dicyclomine 10 MG Capsule 20 MG PO ×3 (10:07→17:53)
[2022-09-12] MEDS: DULoxetine Hcl 60 MG Capsule PO ×2 (10:07→21:07)
[2022-09-12] MEDS: guaiFENesin 1,200 MG Tablet 1200 MG PO ×2 (10:07→21:10)
[2022-09-12] MEDS: Pregabalin 50 MG Capsule 100 MG PO (10:13)
--- NOTE | 2022-09-12 11:34 | CASEMGMT ---
SW reviewed patient's chart and noted therapy is recommending further therapy possibly Rehab. SW met with patient. Introduced self and role at [facility]. SW explained PHQ 9 and patient is aware as SW did one on her last visit due to a Stroke/TIA. Patient was agreeable to SW completing with patient. Patient scored a 3 which is minimal depression. Patient scored a 3 as she has felt tired and little energy. Patient said this is due to her Anemia. SW then spoke with patient about therapy's recommendation for Rehab. Patient said she is agreeable to go to Inpatient Rehab and if not there then TCU. SW let patient know SW will make a referral. SW explained patient's insurance will have to approve her and this would not be today. SW will let her know when SW knows more information. Plan: Inpatient Rehab vs SNF pending acceptance and insurance approval. Zulema June [employer]
[2022-09-12] MEDS: Multivitamins,Therapeutic Tablet 1 TABLET PO (11:46)
[2022-09-12] MEDS: Calcium Carb/Vitamin D 1 TABLET Tablet PO (11:46)
[2022-09-12] MEDS: Carvedilol 25 MG Tablet PO ×2 (11:46→21:06)
--- NOTE | 2022-09-12 13:04 | PN.HOSP_ITS ---
Subjective Subjective Patient seen and examined. She says she still feels like her right hand is weak. She denied any numbness, tingling, chest pain, palpitations, headache, nausea, vomiting or diarrhea. Review of systems otherwise negative. Objective Data Objective Data Vital Signs: Vital Signs Temp Pulse Resp BP Pulse Ox O2 Del Method 97 F L 92 16 144/93 H 99 Room Air 09/12/22 10:00 09/12/22 10:00 09/12/22 10:00 09/12/22 10:00 09/12/22 10:00 09/12/22 10:00 Oxygen Delivery Method Room Air Weight: 231 lb 0.711 oz Body Mass Index (BMI) 42.3 Intake & Output: Intake and Output for Last 24 Hours 09/10/22 09/11/22 09/12/22 23:59 23:59 23:59 Intake Total 500 / 620 180 / 180 Balance 500 / 620 180 / 180 Lab / Micro Data Result Diagrams: 09/12/22 06:50 09/12/22 06:50 Labs: Laboratory Results - last 24 hr 09/11/22 16:35: POC Glucose 75 09/12/22 06:50: WBC 6.1, RBC 3.47 L, Hgb 10.4 L, Hct 32.6 L, MCV 93.9, MCH 30.0, MCHC 31.9 L, RDW Std Deviation 48.0 H, RDW Coeff of [place]cho 14.2, Plt Count 183, MPV 10.1, Immature Gran % (Auto) 0.300, Neut % (Auto) 58.1, Lymph % (Auto) 29.4, [place] % (Auto) 7.7, Eos % (Auto) 3.8, Baso % (Auto) 0.7, Absolute Neuts (auto) 3.5, Absolute Lymphs (auto) 1.79, Nucleated RBC % 0 09/12/22 06:50: Sodium 138, Potassium 3.8, Chloride 107, Carbon Dioxide 27.0, Anion Gap 4 L, BUN 24 H, Creatinine 1.10 H, Estim Creat Clear Calc 42.48, Est GFR (MDRD) Af Amer 65, Est GFR (MDRD) Non-Af 54 L, BUN/Creatinine Ratio 21.8 H, Glucose 132 H, Calcium 9.5, Triglycerides 345 H, Cholesterol 140, LDL Choles terol 29, VLDL Cholesterol 69 H, HDL Cholesterol 42 Radiography Diagnostic Testing: Radiology Impression Brain MRI 09/11/22 15:10 IMPRESSION: New acute infarct in the left anterior parietal lobe and small acute ischemic infarction in the right cerebellar hemisphere suggesting embolic disease. Clinical correlation recommende Subacute to chronic left posterior parietal infarct Electronically Signed: Nilay London MD at 20:03 EST , ADDENDUM: 09/11/222101 IMPRESSION: New acute infarct in the left anterior parietal lobe and small acute ischemic infarction in the right cerebellar hemisphere suggesting embolic disease. Clinical correlation recommende Subacute to chronic left posterior parietal infarct N.B. : The above Results were Read Back by Nilay London MD to Dr. Ranjith MD, and understanding confirmed on 09/11/2022 20:55:28 (ET). Electronically Signed: Nilay London MD at 20:03 EST , Carotid Duplex 09/12/22 05:55 Interpretation Summary Irregular calcific plaque at the proximal right internal carotid artery with 50 to 69% stenosis Less than 50% stenosis right external carotid artery Irregular calcific plaque at the proximal left internal carotid artery with less than 50% stenosis Less than 50% stenosis left external carotid artery Patent and antegrade vertebral arteries bilaterally Seemingly no change from a previous examination of November Ordering Physician: Jordi Kasper Performed By: Andrea Jaimes RVT Rhythm Strip Rhythm Strip: Sinus Rhythm Rate: 80 Ectopy: None Physical Exam Const alert, oriented x3, no apparent distress and healthy appearing General Appearance: cooperative HEENT normocephalic, head/scalp atraumatic, hearing grossly normal bilaterally and moist oral mucous membranes Head and Scalp: normocephalic Mouth: oral and palatal mucosa normal Eyes PERRL, EOMs intact bilaterally and conjunctivae normal Neck no lymphadenopathy and supple Resp normal respiratory effort, no retractions, no use of accessory muscles and clear to auscultation bilaterally Cardio regular rate, regular rhythm, S1 normal heart sound, S2 normal heart sound and no murmurs GI normal to inspection, nondistended, normoactive bowel sounds, soft to palpation, non-tender and non-distended Extremity normal to inspection Neuro oriented x3 and CN's II-XII intact bilaterally Neuro Narrative: power in RUE is now 3/5, with associated numbness Sensorium / Orientation: awake, alert, oriented to person, oriented to place and oriented to time Assessment & Plan Assessment/Plan (1) Right arm weakness: PLAN: Plan #RUE weakness due to embolic stroke * CT of hte brain showed stable area of decreased attenuation int eh posterior left parietal lobe with no findings of acute ischemic infarction * on aspirin and plavix * MRI of the brain showed acute new infarct in the left anterior parietal lobe and small acute ischemic infarct in the right cerebellar hemisphere suggesting embolic disease, and subacute to chronic left posterior parietal infarct. * on aspirin and plavix. * teleneurology reviewed patient and recommended adding on plavix for 3 weeks, then to continue on only plavix * continue high intensity statin * PT/OT consult * fall precautions * 2D echo from 09/08/2022 showed EF of 55-60% with normal LV systolic function * [facility] neurology consulted in light of MRI findings and recommends ZAHRA. Holter monitor patient wore for 48 hours showed evidence of PVCs and supraventricular ectopic beats, with no evidence of PVCs. * [facility] neurology recommends patient be started on eliquis; repeat CT brain to be done before this is started. * #Cervical stenosis * MRI of the cervical spine showed moderate stenosis of C3 and C4 as well as C5 and C6. * Follow-up with PCP for referral to spine surgeon * #Right carotid artery stenosis: * CTA showed 70% stenosis, carotid stenosis on the right. Follow-up with vascular surgery on outpatient basis. * carotid USG showed irregular calcific plaque at the proximal right iCA with 50-69% sstenosis and Less than 50% stenosis right external carotid artery. Irregular calcific plaque at the proximal left internal carotid artery with less than 50% stenosis Less than 50% stenosis left external carotid artery. Patent and antegrade vertebral arteries bilaterally. Seemingly no change from a previous examination of November #Hypertension: on carvedilol, hydralazine #Hyperlipidemia: On statin #COPD: Not in exacerbation. Continue breathing treatment with bronchodilators. #Type 2 diabetes mellitus: On insulin sliding scale. Accu-Cheks ACH S. on sitagliptin. #GERD: On PPI #DVT prophylaxis: Lovenox Charges/Coding Visit Charges OBSV E&M: 11934 Subsequent observation care L2
--- NOTE | 2022-09-12 14:06 | CASEMGMT ---
Readmission chart review: 09/08-09/09/22 CVA 09/11/22-current Pt initially admitted to PCU for arm weakness/numbness and MRI showed Subacute lacunar linear ischemic infarct in the cortex of the left precentral gyrus. Neuro recommending loop recorder or 30 day event monitor and anti-coag, as well as ZAHRA. Per Dr. Draper's d/c summary, pt declined anti-coag and ZAHRA and wanted to f/u with PCP prior to being placed on/getting these. Therapy did not recommend any further therapy at d/c. Pt was sent home with 48 hour event monitor. Pt was set to f/u with PCP on 09/11/22. Pt awoke 09/11/22 with right arm numbness and returned to [facility] ED. MRI with New acute infarct in the left anterior parietal lobe and small acute ischemic infarction in the right cerebellar hemisphere suggesting embolic disease. Therapy is now recommending IP rehab for pt and pt is agreeable. SW working on d/c plan. CM to follow for any further discharge planning/needs. Robyn ERICKSON CM
[2022-09-12] MEDS: hydrALAZINE 25 MG Tablet PO ×2 (14:08→21:05)
[2022-09-12] MEDS: HYDROCODONE/APAP 7.5-325/15ML 15 ML UDC PO (14:14)
[2022-09-12] MEDS: Venlafaxine HCl 75 MG Tablet 150 MG PO (21:07)
[2022-09-12] MEDS: Amitriptyline 25 MG Tablet PO (21:09)
[2022-09-12] MEDS: Atorvastatin Calcium 40 MG Tablet PO (21:10)
[2022-09-13] VITALS (18 sets, daily range): BP systolic 106–153; BP diastolic 69–90; PULSE 76–111; RESP 16–18; TEMP 36.1–37.1; O2SAT 95–100; BMI 42.3
--- NOTE | 2022-09-13 05:55 | ECHOTEE_ITS ---
Reason For Study: Afib/Flutter Medication ZAHRA probe 6VT-D (SN [id number]) passed with minimal difficulty. No complications were noted. Cetacaine Topical [place] given X3 orally. Versed 1 mg given slow IVP. Fentanyl 50 mcg given slow IVP. Performed a rapid injection of agitated mix of 9 cc saline and 1cc air to assess for atrial septal defect. Left Ventricle Segmental dysfunction with preserved ejection fraction (see wall motion). The estimated ejection fraction is 60 %. Infero-Basal: Hypokinetic. Right Ventricle Normal systolic function. Atria No doppler evidence for ASD. Bubble contrast study negative for right to left interatrial shunt. Normal left atrium. There is no sponatenous contrast in the left atrium. No thrombus is detected in the left atrial appendage. Normal right atrium. There is no sponatenous contrast in the right atrium. No RA/appendge thrombus identified. Mitral Valve There is mild mitral annular calcification. Normal mitral valve. The mitral valve chordae are thickened and/or calcified. Mild (1+) mitral valve insufficiency. Tricuspid Valve Normal tricuspid valve. Trivial tricuspid valve insufficiency. Aortic Valve Trisinus/trileaflet aortic valve. Normal aortic valve. Pulmonic Valve The pulmonic valve is not well visualized. Vessels Normal appearing thoracic aorta. Pericardium No pericardial effusion. ECHO/Echo Transesophageal (ZAHRA) Interpretation Summary Segmental dysfunction with preserved ejection fraction (see wall motion). The estimated ejection fraction is 60 %. There is no sponatenous contrast in the left atrium. No thrombus is detected in the left atrial appendage. There is mild mitral annular calcification. The mitral valve chordae are thickened and/or calcified. Mild (1+) mitral valve insufficiency. Trivial tricuspid valve insufficiency. Bubble contrast study negative for right to left interatrial shunt. Ordering Physician: Nichol Draper Referring Physician: Brandon Torres Performed By: Gabriel Akins RCS
[2022-09-13] MEDS: Nystatin Powder 15gm Bottle 1 APPLIC TOPICAL ×3 (06:07→21:38)
[2022-09-13] MEDS: Menthol/Lanolin/Calamine/Znox 113 GM Tube 1 APPLIC TOPICAL ×2 (06:08→21:26)
--- NOTE | 2022-09-13 07:58 | CASEMGMT ---
[facility] received notification from [facility] that Dr Bashir approved patient for Inpatient Rehab. Pre-cert was started. Plan: Inpatient Rehab pending insurance approval Zulema GONGORA
--- NOTE | 2022-09-13 11:24 | PN.HOSP_ITS ---
Subjective Subjective Doing well, no issues overnight. She is slowly regaining some strength but would likely benefit from significant rehab on discharge Objective Data Objective Data Vital Signs: Vital Signs Temp Pulse Resp BP Pulse Ox O2 Del Method 97 F L 82 16 128/82 H 95 Room Air 09/13/22 10:20 09/13/22 10:20 09/13/22 10:20 09/13/22 10:20 09/13/22 10:20 09/13/22 10:20 Oxygen Delivery Method Room Air Weight: 231 lb 0.711 oz Body Mass Index (BMI) 42.3 Intake & Output: Intake and Output for Last 24 Hours 09/12/22 09/13/22 09/14/22 03:59 03:59 03:59 Intake Total 620 / 620 1160 / 1160 Balance 620 / 620 1160 / 1160 Lab / Micro Data Result Diagrams: 09/12/22 06:50 09/12/22 06:50 Micro: Microbiology 09/13/22 05:45 Nasal Secretion SARS-CoV-2 Antigen (Rapid) - Final Radiography Diagnostic Testing: Radiology Impression Carotid Duplex 09/12/22 05:55 Interpretation Summary Irregular calcific plaque at the proximal right internal carotid artery with 50 to 69% stenosis Less than 50% stenosis right external carotid artery Irregular calcific plaque at the proximal left internal carotid artery with less than 50% stenosis Less than 50% stenosis left external carotid artery Patent and antegrade vertebral arteries bilaterally Seemingly no change from a previous examination of November Ordering Physician: Jordi Kasper Performed By: Andrea Jaimes RVT Transesophageal Echocardiogram 09/13/22 05:55 Interpretation Summary Segmental dysfunction with preserved ejection fraction (see wall motion). The estimated ejection fraction is 60 %. There is no sponatenous contrast in the left atrium. No thrombus is detected in the left atrial appendage. There is mild mitral annular calcification. The mitral valve chordae are thickened and/or calcified. Mild (1+) mitral valve insufficiency. Trivial tricuspid valve insufficiency. Bubble contrast study negative for right to left interatrial shunt. Ordering Physician: Nichol Draper Referring Physician: Brandon Torres Performed By: Gabriel Akins RCS Rhythm Strip Rhythm Strip: Sinus Rhythm Rate: 80 Ectopy: None Physical Exam Narrative General: Alert, Oriented x3, Cooperative, No apparent distress HEENT: Atraumatic, PERRLA, EOMI, Normocephalic Oral: Moist Mucosa Neck: Supple, No JVD Lungs: Clear to auscultation, Normal air movement, No rhonchi, No wheeze, No rales Cardiovascular: Regular rate, Regular Rhythm, Normal S1, Normal S2, No murmurs Abdomen: Soft, Non Tender, Non-Distended, No Hepato-splenomegaly Extremities: No edema, Capillary Refill Less than 3 Seconds Skin: No rashes, No breakdown Musculoskeletal: No Tenderness to Palpation of Joints or Extremities Neurological: Cranial nerves II-XII grossly intact, right upper extremity still weak with no fine motor skills. Her vision care associate strength is minimal Psych/Mental Status: Normal Affect, Appropriate Assessment & Plan Assessment/Plan (1) Right arm weakness: PLAN: Plan 1. RUE weakness due to embolic stroke/HTN/HLD * CT of the brain showed stable area of decreased attenuation int eh posterior left parietal lobe with no findings of acute ischemic infarction * on aspirin and plavix * MRI of the brain showed acute new infarct in the left anterior parietal lobe and small acute ischemic infarct in the right cerebellar hemisphere suggesting embolic disease, and subacute to chronic left posterior parietal infarct. * continue high intensity statin * PT/OT consult * fall precautions * 2D echo from 09/08/2022 showed EF of 55-60% with normal LV systolic function * SOC neurology consulted in light of MRI findings and recommends ZAHRA. Holter monitor patient wore for 48 hours showed evidence of PVCs and supraventricular ectopic beats, with no evidence of PVCs. * ZAHRA was unremarkable * Will need to start Eliquis on Sunday at which point her aspirin and her Plavix will be discontinued, prior to starting her Eliquis she will need to have a CT scan of her brain to make sure that there is no bleeding * She also need to follow-up with vascular surgery as an outpatient to continue surveillance of her right ICA stenosis with a 50 to 69% narrowing on carotid duplex * Continue with her home blood pressure medications 2. Cervical stenosis * MRI of the cervical spine showed moderate stenosis of C3 and C4 as well as C5 and C6. * Follow-up with PCP for referral to spine surgeon 3. COPD: Not in exacerbation. Continue breathing treatment with bronchodilators. 4. Type 2 diabetes mellitus: On insulin sliding scale. Accu-Cheks ACH S. on sitagliptin. 5. GERD: On PPI 6. Anxiety/depression: Stable continue with Effexor, Cymbalta and amitriptyline 7. Osteoporosis: Continue with alendronate DVT: Lovenox Disposition: Given where her deficits are in the severity of bone would recomm end extensive rehab on discharge Charges/Coding Visit Charges Inpatient E&M: 46272 Subs Hosp L2
[2022-09-13] MEDS: Calcium Carb/Vitamin D 1 TABLET Tablet PO (14:38)
[2022-09-13] MEDS: Magnesium Chloride 64 MG Delay Rel.Tablet 128 MG PO (14:38)
[2022-09-13] MEDS: LINAGLIPTIN 5 MG TABLET PO (14:38)
[2022-09-13] MEDS: hydrALAZINE 25 MG Tablet PO ×2 (14:38→21:37)
[2022-09-13] MEDS: DULoxetine Hcl 60 MG Capsule PO ×2 (14:38→21:26)
[2022-09-13] MEDS: Dicyclomine 10 MG Capsule 20 MG PO ×2 (14:39→17:54)
[2022-09-13] MEDS: Ascorbic Acid 500 MG Tablet PO (14:39)
[2022-09-13] MEDS: Aspirin E.C. 81 MG Tablet PO (14:39)
[2022-09-13] MEDS: Clopidogrel Bisulfate 75 MG Tablet PO (14:39)
[2022-09-13] MEDS: SACUBITRIL/VALSARTAN 49-51 MG TABLET 1 EACH PO ×2 (14:39→21:28)
[2022-09-13] MEDS: Pantoprazole Sodium 40 MG Tablet PO ×2 (14:39→21:29)
[2022-09-13] MEDS: Venlafaxine HCl 75 MG Tablet PO (14:39)
[2022-09-13] MEDS: guaiFENesin 1,200 MG Tablet 1200 MG PO ×2 (14:39→21:29)
[2022-09-13] MEDS: Carvedilol 25 MG Tablet PO ×2 (14:39→21:25)
[2022-09-13] MEDS: Pregabalin 50 MG Capsule 100 MG PO (14:39)
[2022-09-13] MEDS: Multivitamins,Therapeutic Tablet 1 TABLET PO (14:39)
[2022-09-13] MEDS: Acyclovir 200 MG Capsule 400 MG PO ×2 (15:08→21:29)
[2022-09-13 16:56] LABS: Bedside Glucose 104 mg/dL (74-106)
[2022-09-13] MEDS: Venlafaxine HCl 75 MG Tablet 150 MG PO (21:27)
[2022-09-13] MEDS: Amitriptyline 25 MG Tablet PO (21:28)
[2022-09-13] MEDS: Atorvastatin Calcium 40 MG Tablet PO (21:29)
[2022-09-14] VITALS (17 sets, daily range): BP systolic 99–136; BP diastolic 63–78; PULSE 76–96; RESP 16–18; TEMP 35.6–37.1; O2SAT 95–99; BMI 42.3
[2022-09-14 01:41] LABS: Bedside Glucose 133 mg/dL (74-106)
[2022-09-14] MEDS: Levothyroxine 112 MCG Tablet PO (06:38)
[2022-09-14] MEDS: hydrALAZINE 25 MG Tablet PO ×3 (06:39→20:37)
[2022-09-14] MEDS: Nystatin Powder 15gm Bottle 1 APPLIC TOPICAL ×2 (06:42→20:40)
[2022-09-14 07:20] LABS: Bedside Glucose 122 mg/dL (74-106)
[2022-09-14] MEDS: guaiFENesin 1,200 MG Tablet 1200 MG PO ×2 (10:46→20:39)
[2022-09-14] MEDS: Pantoprazole Sodium 40 MG Tablet PO ×2 (10:47→20:37)
[2022-09-14] MEDS: LINAGLIPTIN 5 MG TABLET PO (10:48)
[2022-09-14] MEDS: Magnesium Chloride 64 MG Delay Rel.Tablet 128 MG PO (10:48)
[2022-09-14] MEDS: Acyclovir 200 MG Capsule 400 MG PO ×2 (10:48→20:38)
[2022-09-14] MEDS: DULoxetine Hcl 60 MG Capsule PO ×2 (10:48→20:38)
[2022-09-14] MEDS: Aspirin E.C. 81 MG Tablet PO (10:49)
[2022-09-14] MEDS: Clopidogrel Bisulfate 75 MG Tablet PO (10:49)
[2022-09-14] MEDS: Ascorbic Acid 500 MG Tablet PO (10:49)
[2022-09-14] MEDS: Carvedilol 25 MG Tablet PO ×2 (10:49→20:38)
[2022-09-14] MEDS: SACUBITRIL/VALSARTAN 49-51 MG TABLET 1 EACH PO ×2 (10:50→20:38)
[2022-09-14] MEDS: Venlafaxine HCl 75 MG Tablet PO (10:50)
[2022-09-14] MEDS: Dicyclomine 10 MG Capsule 20 MG PO ×3 (10:51→16:40)
[2022-09-14] MEDS: Pregabalin 50 MG Capsule 100 MG PO (10:56)
[2022-09-14] MEDS: Menthol/Lanolin/Calamine/Znox 113 GM Tube 1 APPLIC TOPICAL ×2 (10:56→20:40)
[2022-09-14] MEDS: HYDROCODONE/APAP 7.5-325/15ML 15 ML UDC PO (10:56)
[2022-09-14 11:40] LABS: Bedside Glucose 130 mg/dL (74-106)
--- NOTE | 2022-09-14 12:26 | CASEMGMT ---
Addendum entered by Zulema June 09/14/22 13:13: Physician completed peer to peer, however insurance has chosen to deny patient for Inpatient Rehab. Physician would like to complete an appeal. Insurance is supposed to notify [facility] and/or [facility] in Rehab on how to do an appeal. [facility] updated patient. Zulema GONGORA Original Note: [facility] receieved a call from [employer] indicating physician is requesting a peer to peer to assist in determining eligibility for Inpatient Rehab. Physician will need patient's name, , and insurance ID number. Phone number to call is option 5. This has to be done by today. SW notified physician and gave him necessary information. Zulema GONGORA
--- NOTE | 2022-09-14 13:52 | PN.HOSP_ITS ---
Subjective Subjective Slight improvement in her right upper extremity weakness though she still has no fine motor skills Objective Data Objective Data Vital Signs: Vital Signs Temp Pulse Resp BP Pulse Ox O2 Del Method 96.5 F L 87 16 114/63 95 Room Air 09/14/22 10:00 09/14/22 10:00 09/14/22 10:00 09/14/22 10:00 09/14/22 12:33 09/14/22 10:00 Oxygen Delivery Method Room Air Weight: 231 lb 0.711 oz Body Mass Index (BMI) 42.3 Intake & Output: Intake and Output for Last 24 Hours 09/13/22 09/14/22 09/15/22 03:59 03:59 03:59 Intake Total 1160 / 1160 660 / 660 Balance 1160 / 1160 660 / 660 Lab / Micro Data Result Diagrams: 09/12/22 06:50 09/12/22 06:50 Labs: Laboratory Results - last 24 hr 09/13/22 16:33: POC Glucose 104 09/13/22 21:36: POC Glucose 133 H 09/14/22 06:41: POC Glucose 122 H 09/14/22 11:19: POC Glucose 130 H Micro: Microbiology 09/13/22 05:45 Nasal Secretion SARS-CoV-2 Antigen (Rapid) - Final Rhythm Strip Rhythm Strip: Sinus Rhythm Rate: 80 Ectopy: None Physical Exam Narrative General: Alert, Oriented x3, Cooperative, No apparent distress HEENT: Atraumatic, PERRLA, EOMI, Normocephalic Oral: Moist Mucosa Neck: Supple, No JVD Lungs: Clear to auscultation, Normal air movement, No rhonchi, No wheeze, No rales Cardiovascular: Regular rate, Regular Rhythm, Normal S1, Normal S2, No murmurs Abdomen: Soft, Non Tender, Non-Distended, No Hepato-splenomegaly Extremities: No edema, Capillary Refill Less than 3 Seconds Skin: No rashes, No breakdown Musculoskeletal: No Tenderness to Palpation of Joints or Extremities Neurological: Cranial nerves II-XII grossly intact, right upper extremity still weak with no fine motor skills. Her political science chair strength is minimal Psych/Mental Status: Normal Affect, Appropriate Assessment & Plan Assessment/Plan (1) Right arm weakness: PLAN: Plan 1. RUE weakness due to embolic stroke/HTN/HLD * CT of the brain showed stable area of decreased attenuation int eh posterior left parietal lobe with no findings of acute ischemic infarction * on aspirin and plavix * MRI of the brain showed acute new infarct in the left anterior parietal lobe and small acute ischemic infarct in the right cerebellar hemisphere suggesting embolic disease, and subacute to chronic left posterior parietal infarct. * continue high intensity statin * PT/OT consult * fall precautions * 2D echo from 09/08/2022 showed EF of 55-60% with normal LV systolic function * SOC neurology consulted in light of MRI findings and recommends ZAHRA. Holter m onitor patient wore for 48 hours showed evidence of PVCs and supraventricular ectopic beats, with no evidence of PVCs. * ZAHRA was unremarkable * Will need to start Eliquis on Sunday at which point her aspirin and her Plavix will be discontinued, prior to starting her Eliquis she will need to have a CT scan of her brain to make sure that there is no bleeding * She also need to follow-up with vascular surgery as an outpatient to continue surveillance of her right ICA stenosis with a 50 to 69% narrowing on carotid duplex * Continue with her home blood pressure medications 2. Cervical stenosis * MRI of the cervical spine showed moderate stenosis of C3 and C4 as well as C5 and C6. * Follow-up with PCP for referral to spine surgeon 3. COPD: Not in exacerbation. Continue breathing treatment with bronchodilators. 4. Type 2 diabetes mellitus: On insulin sliding scale. Accu-Cheks ACH S. on s itagliptin. 5. GERD: On PPI 6. Anxiety/depression: Stable continue with Effexor, Cymbalta and amitriptyline 7. Osteoporosis: Continue with alendronate DVT: Lovenox Disposition: Given where her deficits are in the severity of bone would recommend extensive rehab on discharge Charges/Coding Visit Charges Inpatient E&M: 23390 Subs Hosp L2
[2022-09-14] MEDS: Calcium Carb/Vitamin D 1 TABLET Tablet PO (14:28)
[2022-09-14] MEDS: Multivitamins,Therapeutic Tablet 1 TABLET PO (14:28)
[2022-09-14] MEDS: Sodium Ferric Gluconat 250 MG in 0.9% Normal Saline 250 ML 135 MG IV (16:30)
[2022-09-14] MEDS: 0.9% Saline Lock 10 ML Syringe IV (16:38)
[2022-09-14 17:20] LABS: Bedside Glucose 136 mg/dL (74-106)
[2022-09-14] MEDS: Atorvastatin Calcium 40 MG Tablet PO (20:38)
[2022-09-14] MEDS: Venlafaxine HCl 75 MG Tablet 150 MG PO (20:38)
[2022-09-14] MEDS: Amitriptyline 25 MG Tablet PO (20:40)
[2022-09-14 21:06] LABS: Bedside Glucose 173 mg/dL (74-106)
[2022-09-15] VITALS (16 sets, daily range): BP systolic 70–129; BP diastolic 42–79; PULSE 70–96; RESP 15–18; TEMP 36.1–36.9; O2SAT 93–100
--- NOTE | 2022-09-15 01:25 | PCM.HOSP.N ---
Hospitalist Note BP decreased, asymptomatic. Will administer IVF bolus and continue to closely monitor.
[2022-09-15] MEDS: 0.9% Normal Saline 1,000 ML 999 ML IV (01:30)
[2022-09-15] MEDS: 0.9% Saline Lock 10 ML Syringe IV (01:47)
[2022-09-15] MEDS: Levothyroxine 112 MCG Tablet PO (05:06)
[2022-09-15] MEDS: Nystatin Powder 15gm Bottle 1 APPLIC TOPICAL ×2 (05:06→21:20)
[2022-09-15 06:33] LABS: Absolute Lymphocyte Count 2.79 X10^3/uL (0.83-4.51); Absolute Neutrophil Count 3.1 X10^3/uL (2.0-7.7); Basophil# 0.07 X10^3/uL; Eosinophil# 0.37 X10^3/uL; Eosinophils% 5.3 % (0-5); Hematocrit 31.5 % (37-47); Hemoglobin 9.9 g/dL (12.0-15.0); Lymphocyte # 2.79 X10^3/ul (0.83-4.51); Lymphocyte % 39.7 % (19-41); Mean Corp Hgb Conc 31.4 g/dL (32-36); Mean Corpuscular Hgb 30.3 pg (27.0-32.0); Mean Corpuscular Volume 96.3 fL (81-99); Mean Platelet Vol. 10.1 fl (6.2-12.0); Monocyte% 8.5 % (0-10); NRBC Flagged by Analyzer 0 % (0-5); Neutrophil # 3.14 X10^3/uL (2.7-7.7); Neutrophil % 44.8 % (47-70); Platelet Count 185 K/mm3 (150-450); RBC Distribution Width CV 14.4 % (11.6-14.6); RBC Distribution Width SD 50.4 fl (35.1-43.9); Red Blood Count 3.27 M/mm3 (4.2-5.4)
[2022-09-15 06:40] LABS: Bedside Glucose 96 mg/dL (74-106)
[2022-09-15 06:56] LABS: Anion Gap 9 (5-15); BUN 33 mg/dL (7-18); BUN/Creat Ratio 23.6 RATIO (10-20); Calcium,Total 9.4 mg/dL (8.5-10.1); Chloride 104 mmol/L (98-107); EST Glomerular Filtration Rate 41 mL/min (>60); Est Glom Filt Rate - Afr Amer 49 mL/min (>60); Estimated Creatinine Clearance 33.38 ml/min; Glucose 86 mg/dL (74-106); Potassium 4.2 mmol/L (3.5-5.1); Sodium Level 137 mmol/L (136-145)
[2022-09-15] MEDS: Dicyclomine 10 MG Capsule 20 MG PO ×3 (08:29→16:58)
[2022-09-15] MEDS: guaiFENesin 1,200 MG Tablet 1200 MG PO ×2 (08:29→21:17)
[2022-09-15] MEDS: Pantoprazole Sodium 40 MG Tablet PO ×2 (08:30→21:19)
[2022-09-15] MEDS: Clopidogrel Bisulfate 75 MG Tablet PO (08:30)
[2022-09-15] MEDS: Menthol/Lanolin/Calamine/Znox 113 GM Tube 1 APPLIC TOPICAL ×2 (08:30→21:20)
[2022-09-15] MEDS: Carvedilol 25 MG Tablet PO ×2 (08:30→21:16)
[2022-09-15] MEDS: Aspirin E.C. 81 MG Tablet PO (08:30)
[2022-09-15] MEDS: Ascorbic Acid 500 MG Tablet PO (08:31)
[2022-09-15] MEDS: DULoxetine Hcl 60 MG Capsule PO ×2 (08:32→21:17)
[2022-09-15] MEDS: Magnesium Chloride 64 MG Delay Rel.Tablet 128 MG PO (08:34)
[2022-09-15] MEDS: LINAGLIPTIN 5 MG TABLET PO (08:35)
[2022-09-15] MEDS: SACUBITRIL/VALSARTAN 49-51 MG TABLET 1 EACH PO ×2 (08:35→21:19)
[2022-09-15] MEDS: Venlafaxine HCl 75 MG Tablet PO (08:35)
[2022-09-15] MEDS: Pregabalin 50 MG Capsule 100 MG PO (08:38)
[2022-09-15] MEDS: Acyclovir 200 MG Capsule 400 MG PO ×2 (08:41→21:15)
--- NOTE | 2022-09-15 10:27 | CASEMGMT ---
Insurance gave [facility] information on appeal process yesterday around 1545. SW called insurance this am to start appeal process. SW obtained the denial Auth number: [id number]. SW was given a fax number of: [phone] to fax any additional information SW feels would help with appeal. SW was informed process could take up to 72 hours. SW faxed updated progress notes, updated therapy notes, face sheet, and the authorization form patient signed to allow SW to complete appeal process on patient's behalf. Await response. Plan: Inpatient Rehab Unit pending insurance appeal vs home with home health. Zulema June BIOLOGY DEPARTMENT CHAIR ROLAN
--- NOTE | 2022-09-15 10:32 | PN.HOSP_ITS ---
Subjective Subjective Doing well, appealing the insurance claim that she does not need intensive rehab for disabling right arm weakness Objective Data Objective Data Vital Signs: Vital Signs Temp Pulse Resp BP Pulse Ox O2 Del Method 97 F L 72 15 94/55 L 98 Room Air 09/15/22 10:30 09/15/22 10:30 09/15/22 10:30 09/15/22 10:30 09/15/22 10:30 09/15/22 10:30 Oxygen Delivery Method Room Air Weight: 231 lb 0.711 oz Body Mass Index (BMI) 42.3 Intake & Output: Intake and Output for Last 24 Hours 09/14/22 09/15/22 09/16/22 03:59 03:59 03:59 Intake Total 660 / 660 3030 / 3030 50 50 Output Total 0 / 0 Balance 660 / 660 3030 / 3030 50 50 Lab / Micro Data Result Diagrams: 09/15/22 06:25 09/15/22 06:25 Labs: Laboratory Results - last 24 hr 09/14/22 11:19: POC Glucose 130 H 09/14/22 16:37: POC Glucose 136 H 09/14/22 20:34: POC Glucose 173 H 09/15/22 06:17: POC Glucose 96 09/15/22 06:25: WBC 7.0, RBC 3.27 L, Hgb 9.9 L, Hct 31.5 L, MCV 96.3, MCH 30.3, MCHC 31.4 L, RDW Std Deviation 50.4 H, RDW Coeff of [place] 14.4, Plt Count 185, MPV 10.1, Immature Gran % (Auto) 0.700, Neut % (Auto) 44.8 L, Lymph % (Auto) 39.7, [place] % (Auto) 8.5, Eos % (Auto) 5.3 H, Baso % (Auto) 1.0, Absolute Neuts (auto) 3.1, Absolute Lymphs (auto) 2.79, Nucleated RBC % 0 09/15/22 06:25: Sodium 137, Potassium 4.2, Chloride 104, Carbon Dioxide 24.0, Anion Gap 9, BUN 33 H, Creatinine 1.40 H, Estim Creat Clear Calc 33.38, Est GFR (MDRD) Af Amer 49 L, Est GFR (MDRD) Non-Af 41 L, BUN/Creatinine Ratio 23.6 H, Glucose 86, Calcium 9.4 Micro: Microbiology 09/13/22 05:45 Nasal Secretion SARS-CoV-2 Antigen (Rapid) - Final Rhythm Strip Rhythm Strip: Sinus Rhythm Rate: 80 Ectopy: None Physical Exam Narrative General: Alert, Oriented x3, Cooperative, No apparent distress HEENT: Atraumatic, PERRLA, EOMI, Normocephalic Oral: Moist Mucosa Neck: Supple, No JVD Lungs: Clear to auscultation, Normal air movement, No rhonchi, No wheeze, No rales Cardiovascular: Regular rate, Regular Rhythm, Normal S1, Normal S2, No murmurs Abdomen: Soft, Non Tender, Non-Distended, No Hepato-splenomegaly Extremities: No edema, Capillary Refill Less than 3 Seconds Skin: No rashes, No breakdown Musculoskeletal: No Tenderness to Palpation of Joints or Extremities Neurological: Cranial nerves II-XII grossly intact, right upper extremity still weak with no fine motor skills. Her detective youth bureau strength is minimal Psych/Mental Status: Normal Affect, Appropriate Assessment & Plan Assessment/Plan (1) Right arm weakness: PLAN: Plan 1. RUE weakness due to embolic stroke/HTN/HLD * CT of the brain showed stable area of decreased attenuation int eh posterior left parietal lobe with no findings of acute ischemic infarction * on aspirin and plavix * MRI of the brain showed acute new infarct in the left anterior parietal lobe and small acute ischemic infarct in the right cerebellar hemisphere suggesting embolic disease, and subacute to chronic left posterior parietal infarct. * continue high intensity statin * PT/OT consult * fall precautions * 2D echo from 09/08/2022 showed EF of 55-60% with normal LV systolic function * SOC neurology consulted in light of MRI findings and recommends ZAHRA. Holter monitor patient wore for 48 hours showed evidence of PVCs and supraventricular ectopic beats, with no evidence of PVCs. * ZAHRA was unremarkable * Will need to start Eliquis on Sunday at which point her aspirin and her Plavix will be discontinued, prior to starting her Eliquis she will need to have a CT scan of her brain to make sure that there is no bleeding * She also need to follow-up with vascular surgery as an outpatient to continue surveillance of her right ICA stenosis with a 50 to 69% narrowing on carotid duplex * Continue with her home blood pressure medications 2. Cervical stenosis * MRI of the cervical spine showed moderate stenosis of C3 and C4 as well as C5 and C6. * Follow-up with PCP for referral to spine surgeon 3. COPD: Not in exacerbation. Continue breathing treatment with bronchodilators. 4. Type 2 diabetes mellitus: On insulin sliding scale. Accu-Cheks ACH S. on sitagliptin. 5. GERD: On PPI 6. Anxiety/depression: Stable continue with Effexor, Cymbalta and amitriptyline 7. Osteoporosis: Continue with alendronate DVT: Lovenox Disposition: Given where her deficits are in the severity of bone would recommend extensive rehab on discharge Charges/Coding Visit Charges Inpatient E&M: 14208 Subs Hosp L2
[2022-09-15 11:46] LABS: Bedside Glucose 104 mg/dL (74-106)
[2022-09-15] MEDS: Multivitamins,Therapeutic Tablet 1 TABLET PO (12:46)
[2022-09-15] MEDS: Calcium Carb/Vitamin D 1 TABLET Tablet PO (12:46)
--- NOTE | 2022-09-15 15:25 | CASEMGMT ---
[facility] called [facility] to check on status of appeal. [facility] was informed that the Medicare portion of patient's insurance denied patient, but there is a new case with the Medicaid portion of patient's insurance. The new Auth reference number is: [id number]. Await response. Plan: Inpatient Rehab vs home with home health Zulema GONGORA
[2022-09-15 16:40] LABS: Bedside Glucose 105 mg/dL (74-106)
[2022-09-15] MEDS: Albuterol 2.5 MG/3 ML VIAL.NEB. INHALATION (19:55)
[2022-09-15] MEDS: Budesonide Respules 0.5 MG/2 ML AMPUL.NEB. INHALATION (19:55)
[2022-09-15] MEDS: Atorvastatin Calcium 40 MG Tablet PO (21:17)
[2022-09-15] MEDS: Venlafaxine HCl 75 MG Tablet 150 MG PO (21:18)
[2022-09-15] MEDS: Amitriptyline 25 MG Tablet PO (21:19)
[2022-09-15 21:41] LABS: Bedside Glucose 130 mg/dL (74-106)
[2022-09-16] VITALS (10 sets, daily range): BP systolic 100–141; BP diastolic 63–82; PULSE 66–90; RESP 12–20; TEMP 36.6–37.1; O2SAT 95–100; BMI 42.3
[2022-09-16] MEDS: Nystatin Powder 15gm Bottle 1 APPLIC TOPICAL ×3 (06:12→20:33)
[2022-09-16] MEDS: Levothyroxine 112 MCG Tablet PO (06:13)
[2022-09-16 06:50] LABS: Bedside Glucose 139 mg/dL (74-106)
[2022-09-16] MEDS: Albuterol 2.5 MG/3 ML VIAL.NEB. INHALATION (07:19)
[2022-09-16] MEDS: Budesonide Respules 0.5 MG/2 ML AMPUL.NEB. INHALATION (07:19)
[2022-09-16 07:41] LABS: Anion Gap 6 (5-15); BUN 26 mg/dL (7-18); BUN/Creat Ratio 22.8 RATIO (10-20); Calcium,Total 9.8 mg/dL (8.5-10.1); Chloride 105 mmol/L (98-107); Creatinine, Serum 1.14 mg/dL (0.55-1.02); EST Glomerular Filtration Rate 51 mL/min (>60); Est Glom Filt Rate - Afr Amer 62 mL/min (>60); Estimated Creatinine Clearance 40.99 ml/min; Glucose 115 mg/dL (74-106); Potassium 4.2 mmol/L (3.5-5.1); Sodium Level 136 mmol/L (136-145)
--- NOTE | 2022-09-16 08:32 | CT_ITS ---
STUDY: CT BRAIN WITHOUT CONTRAST REASON FOR EXAM: Female, 61 years old. RT ARM WEAKNESS repeat RADIATION DOSAGE (If Supplied By Facility): CTDIvol = ( 44.99 ) mGy, DLP = ( 745.49 ) mGycm TECHNIQUE: Transaxial CT imaging of the brain was performed without administration of intravenous contrast material. Individualized dose optimization techniques were used for this CT. COMPARISON: Including September 11, 2022. FINDINGS: Normal soft tissue structures. Normal calvarium. There is mild cerebral atrophy with widening of the extra-axial spaces and ventricular dilatation. There is evolving left parietal infarct. Normal basal ganglia and thalami. Normal brainstem. Normal cerebellum. There is no intracranial hemorrhage. Normal visualized paranasal sinuses. CT/Brain/Head without Contrast IMPRESSION: Evolving left parietal infarct. No hemorrhage. Electronically Signed: Derick Concepcion MD at 9:24 EST ,
--- NOTE | 2022-09-16 08:38 | CASEMGMT ---
Social Work Pt's LW and Healthcare POA are both scanned into summary tab of E-chart. Pt has Dee Ramirez listed as her medical POA. MYNOR Saunders
--- NOTE | 2022-09-16 10:31 | PCM.PN.HOSP ---
Subjective Subjective Doing well, repeat CT scan today shows no hemorrhage just an evolving stroke can proceed with starting her Eliquis tonight. Currently awaiting pre-CERT from her insurance company so she can receive the therapy she needs Objective Data Objective Data Vital Signs: Vital Signs Temp Pulse Resp BP Pulse Ox O2 Del Method 98.8 F 85 12 123/65 H 95 Room Air 09/16/22 09:56 09/16/22 09:56 09/16/22 09:56 09/16/22 09:56 09/16/22 09:56 09/16/22 09:56 Oxygen Delivery Method Room Air Weight: 231 lb 0.711 oz Body Mass Index (BMI) 42.3 Intake & Output: Intake and Output for Last 24 Hours 09/15/22 09/16/22 09/17/22 03:59 03:59 03:59 Intake Total 3030 / 3030 540 / 540 100 / 100 Output Total 0 / 0 Balance 3030 / 3030 540 / 540 100 / 100 Lab / Micro Data Result Diagrams: 09/15/22 06:25 09/16/22 06:32 Labs: Laboratory Results - last 24 hr 09/15/22 11:23: POC Glucose 104 09/15/22 16:22: POC Glucose 105 09/15/22 21:11: POC Glucose 130 H 09/16/22 06:10: POC Glucose 139 H 09/16/22 06:32: Sodium 136, Potassium 4.2, Chloride 105, Carbon Dioxide 25.0, Anion Gap 6, BUN 26 H, Creatinine 1.14 H, Estim Creat Clear Calc 40.99, Est GFR (MDRD) Af Amer 62, Est GFR (MDRD) Non-Af 51 L, BUN/Creatinine Ratio 22.8 H, Glucose 115 H, Calcium 9.8 Micro: Microbiology 09/13/22 05:45 Nasal Secretion SARS-CoV-2 Antigen (Rapid) - Final Radiography Diagnostic Testing: Radiology Impression Brain CT 09/16/22 08:32 IMPRESSION: Evolving left parietal infarct. No hemorrhage. Electronically Signed: Derick Concepcion MD at 9:24 EST , Rhythm Strip Rhythm Strip: Sinus Rhythm Rate: 80 Ectopy: None Physical Exam Narrative General: Alert, Oriented x3, Cooperative, No apparent distress HEENT: Atraumatic, PERRLA, EOMI, Normocephalic Oral: Moist Mucosa Neck: Supple, No JVD Lungs: Clear to auscultation, Normal air movement, No rhonchi, No wheeze, No rales Cardiovascular: Regular rate, Regular Rhythm, Normal S1, Normal S2, No murmurs Abdomen: Soft, Non Tender, Non-Distended, No Hepato-splenomegaly Extremities: No edema, Capillary Refill Less than 3 Seconds Skin: No rashes, No breakdown Musculoskeletal: No Tenderness to Palpation of Joints or Extremities Neurological: Cranial nerves II-XII grossly intact, right upper extremity still weak with no fine motor skills. Her elementary school teacher's aide strength is minimal Psych/Mental Status: Normal Affect, Appropriate Assessment & Plan Assessment/Plan (1) Right arm weakness: PLAN: Plan 1. RUE weakness due to embolic stroke/HTN/HLD MRI of the brain showed acute new infarct in the left anterior parietal lobe and small acute ischemic infarct in the right cerebellar hemisphere suggesting embolic disease, and subacute to chronic left posterior parietal infarct. continue high intensity statin PT/OT consult fall precautions 2D echo from 09/08/2022 showed EF of 55-60% with normal LV systolic function ZAHRA was unremarkable C see scanned there was negative for bleed, will stop her aspirin and Plavix and start her Eliquis this evening She also need to follow-up with vascular surgery as an outpatient to continue surveillance of her right ICA stenosis with a 50 to 69% narrowing on carotid duplex Continue with her home blood pressure medications, will make adjustments as necessary 2. Cervical stenosis MRI of the cervical spine showed moderate stenosis of C3 and C4 as well as C5 and C6. Follow-up with PCP for referral to spine surgeon 3. COPD: Not in exacerbation. Continue breathing treatment with bronchodilators. 4. Type 2 diabetes mellitus: On insulin sliding scale. Accu-Cheks ACH S. on sitagliptin. 5. GERD: On PPI 6. Anxiety/depression: Stable continue with Effexor, Cymbalta and amitriptyline 7. Osteoporosis: Continue with alendronate DVT: Eliquis Disposition: Given where her deficits are in the severity of bone would recommend extensive rehab on discharge Charges/Coding Visit Charges Inpatient E&M: 11184 Subs Hosp L2
[2022-09-16] MEDS: HYDROCODONE/APAP 7.5-325/15ML 15 ML UDC PO (11:02)
[2022-09-16] MEDS: Pregabalin 50 MG Capsule 100 MG PO (11:06)
[2022-09-16] MEDS: Venlafaxine HCl 75 MG Tablet PO (11:07)
[2022-09-16] MEDS: SACUBITRIL/VALSARTAN 49-51 MG TABLET 1 EACH PO ×2 (11:07→20:32)
[2022-09-16] MEDS: Menthol/Lanolin/Calamine/Znox 113 GM Tube 1 APPLIC TOPICAL ×4 (11:08→20:32)
[2022-09-16] MEDS: guaiFENesin 1,200 MG Tablet 1200 MG PO ×2 (11:08→20:31)
[2022-09-16] MEDS: Magnesium Chloride 64 MG Delay Rel.Tablet 128 MG PO (11:10)
[2022-09-16] MEDS: Dicyclomine 10 MG Capsule 20 MG PO ×3 (11:14→18:15)
[2022-09-16] MEDS: Pantoprazole Sodium 40 MG Tablet PO ×2 (11:15→20:32)
[2022-09-16] MEDS: DULoxetine Hcl 60 MG Capsule PO ×2 (11:15→20:34)
[2022-09-16] MEDS: Ascorbic Acid 500 MG Tablet PO (11:15)
[2022-09-16] MEDS: LINAGLIPTIN 5 MG TABLET PO (11:15)
[2022-09-16] MEDS: Acyclovir 200 MG Capsule 400 MG PO ×2 (11:16→20:31)
[2022-09-16] MEDS: Carvedilol 25 MG Tablet PO ×2 (11:18→20:30)
[2022-09-16] MEDS: Multivitamins,Therapeutic Tablet 1 TABLET PO (11:18)
[2022-09-16] MEDS: Calcium Carb/Vitamin D 1 TABLET Tablet PO (11:19)
[2022-09-16 12:26] LABS: Bedside Glucose 125 mg/dL (74-106)
[2022-09-16 17:01] LABS: Bedside Glucose 110 mg/dL (74-106)
[2022-09-16] MEDS: Atorvastatin Calcium 40 MG Tablet PO (20:31)
[2022-09-16] MEDS: Amitriptyline 25 MG Tablet PO (20:32)
[2022-09-16] MEDS: Venlafaxine HCl 75 MG Tablet 150 MG PO (20:34)
[2022-09-16] MEDS: APIXABAN 5 MG TABLET PO (20:35)
[2022-09-16 21:15] LABS: Bedside Glucose 107 mg/dL (74-106)
[2022-09-17] VITALS (10 sets, daily range): BP systolic 100–131; BP diastolic 50–71; PULSE 74–95; RESP 15–18; TEMP 36.4–37.2; O2SAT 96–98; BMI 42.3
[2022-09-17] MEDS: Nystatin Powder 15gm Bottle 1 APPLIC TOPICAL ×3 (06:02→20:25)
[2022-09-17] MEDS: Levothyroxine 112 MCG Tablet PO (06:03)
[2022-09-17 06:46] LABS: Bedside Glucose 101 mg/dL (74-106)
[2022-09-17 06:57] LABS: Anion Gap 7 (5-15); BUN 27 mg/dL (7-18); Calcium,Total 10.2 mg/dL (8.5-10.1); Chloride 102 mmol/L (98-107); Creatinine, Serum 1.08 mg/dL (0.55-1.02); EST Glomerular Filtration Rate 55 mL/min (>60); Est Glom Filt Rate - Afr Amer 66 mL/min (>60); Estimated Creatinine Clearance 43.26 ml/min; Glucose 111 mg/dL (74-106); Potassium 4.3 mmol/L (3.5-5.1); Sodium Level 136 mmol/L (136-145)
[2022-09-17] MEDS: Ascorbic Acid 500 MG Tablet PO (07:42)
[2022-09-17] MEDS: Dicyclomine 10 MG Capsule 20 MG PO ×3 (07:42→16:49)
[2022-09-17] MEDS: Menthol/Lanolin/Calamine/Znox 113 GM Tube 1 APPLIC TOPICAL ×4 (09:23→20:25)
[2022-09-17] MEDS: Venlafaxine HCl 75 MG Tablet PO (09:24)
[2022-09-17] MEDS: guaiFENesin 1,200 MG Tablet 1200 MG PO ×2 (09:24→20:24)
[2022-09-17] MEDS: SACUBITRIL/VALSARTAN 49-51 MG TABLET 1 EACH PO ×2 (09:24→20:24)
[2022-09-17] MEDS: DULoxetine Hcl 60 MG Capsule PO ×2 (09:24→20:24)
[2022-09-17] MEDS: Carvedilol 25 MG Tablet PO ×2 (09:25→20:24)
[2022-09-17] MEDS: Pantoprazole Sodium 40 MG Tablet PO ×2 (09:25→20:24)
[2022-09-17] MEDS: APIXABAN 5 MG TABLET PO ×2 (09:26→20:24)
[2022-09-17] MEDS: LINAGLIPTIN 5 MG TABLET PO (09:27)
[2022-09-17] MEDS: Magnesium Chloride 64 MG Delay Rel.Tablet 128 MG PO (09:28)
[2022-09-17] MEDS: Acyclovir 200 MG Capsule 400 MG PO ×2 (09:28→20:24)
[2022-09-17] MEDS: Pregabalin 50 MG Capsule 100 MG PO (09:36)
--- NOTE | 2022-09-17 10:08 | PN.HOSP_ITS ---
Subjective Subjective Doing well, still significantly disabled in her right hand Objective Data Objective Data Vital Signs: Vital Signs Temp Pulse Resp BP Pulse Ox O2 Del Method 98.2 F 80 15 131/71 H 97 Room Air 09/17/22 09:10 09/17/22 09:10 09/17/22 09:10 09/17/22 09:10 09/17/22 09:10 09/17/22 09:10 Oxygen Delivery Method Room Air Weight: 231 lb 0.711 oz Body Mass Index (BMI) 42.3 Intake & Output: Intake and Output for Last 24 Hours 09/16/22 09/17/22 09/18/22 03:59 03:59 03:59 Intake Total 540 / 540 1030 / 1030 100 / 100 Output Total 0 / 0 Balance 540 / 540 1030 / 1030 100 / 100 Lab / Micro Data Result Diagrams: 09/15/22 06:25 09/17/22 06:18 Labs: Laboratory Results - last 24 hr 09/16/22 11:24: POC Glucose 125 H 09/16/22 15:44: POC Glucose 110 H 09/16/22 20:25: POC Glucose 107 H 09/17/22 05:58: POC Glucose 101 09/17/22 06:18: Sodium 136, Potassium 4.3, Chloride 102, Carbon Dioxide 27.0, Anion Gap 7, BUN 27 H, Creatinine 1.08 H, Estim Creat Clear Calc 43.26, Est GFR (MDRD) Af Amer 66, Est GFR (MDRD) Non-Af 55 L, BUN/Creatinine Ratio 25.0 H, Glucose 111 H, Calcium 10.2 H Micro: Microbiology 09/13/22 05:45 Nasal Secretion SARS-CoV-2 Antigen (Rapid) - Final Rhythm Strip Rhythm Strip: Sinus Rhythm Rate: 80 Ectopy: None Physical Exam Narrative General: Alert, Oriented x3, Cooperative, No apparent distress HEENT: Atraumatic, PERRLA, EOMI, Normocephalic Oral: Moist Mucosa Neck: Supple, No JVD Lungs: Clear to auscultation, Normal air movement, No rhonchi, No wheeze, No rales Cardiovascular: Regular rate, Regular Rhythm, Normal S1, Normal S2, No murmurs Abdomen: Soft, Non Tender, Non-Distended, No Hepato-splenomegaly Extremities: No edema, Capillary Refill Less than 3 Seconds Skin: No rashes, No breakdown Musculoskeletal: No Tenderness to Palpation of Joints or Extremities Neurological: Cranial nerves II-XII grossly intact, right upper extremity still weak with no fine motor skills. Her bowling ball patcher strength is minimal Psych/Mental Status: Normal Affect, Appropriate Assessment & Plan Assessment/Plan (1) Right arm weakness: PLAN: Plan 1. RUE weakness due to embolic stroke/HTN/HLD * MRI of the brain showed acute new infarct in the left anterior parietal lobe and small acute ischemic infarct in the right cerebellar hemisphere suggesting embolic disease, and subacute to chronic left posterior parietal infarct. * continue high intensity statin * PT/OT consult * fall precautions * 2D echo from 09/08/2022 showed EF of 55-60% with normal LV systolic function * ZAHRA was unremarkable * Had a CT brain which was negative for bleed, her aspirin and Plavix were discontinued and she was started on Eliquis last night * She also need to follow-up with vascular surgery as an outpatient to continue surveillance of her right ICA stenosis with a 50 to 69% narrowing on carotid duplex * Continue with her home blood pressure medications, will make adjustments as necessary 2. Cervical stenosis * MRI of the cervical spine showed moderate stenosis of C3 and C4 as well as C5 and C6. * Follow-up with PCP for referral to spine surgeon 3. COPD: Not in exacerbation. Continue breathing treatment with bronchodilators. 4. Type 2 diabetes mellitus: On insulin sliding scale. Accu-Cheks ACH S. on sitagliptin. 5. GERD: On PPI 6. Anxiety/depression: Stable continue with Effexor, Cymbalta and amitriptyline 7. Osteoporosis: Continue with alendronate DVT: Eliquis Disposition: Given where her deficits are in the severity of bone would recommend extensive rehab on discharge Charges/Coding Visit Charges Inpatient E&M: 33711 Subs Hosp L2
[2022-09-17] MEDS: Calcium Carb/Vitamin D 1 TABLET Tablet PO (11:01)
[2022-09-17] MEDS: Multivitamins,Therapeutic Tablet 1 TABLET PO (11:01)
[2022-09-17 11:30] LABS: Bedside Glucose 152 mg/dL (74-106)
[2022-09-17 19:11] LABS: Bedside Glucose 146 mg/dL (74-106)
[2022-09-17] MEDS: Atorvastatin Calcium 40 MG Tablet PO (20:23)
[2022-09-17] MEDS: Venlafaxine HCl 75 MG Tablet 150 MG PO (20:24)
[2022-09-17] MEDS: Amitriptyline 25 MG Tablet PO (20:26)
[2022-09-17 20:51] LABS: Bedside Glucose 118 mg/dL (74-106)
[2022-09-18] VITALS (14 sets, daily range): BP systolic 69–125; BP diastolic 54–79; PULSE 75–95; RESP 16–20; TEMP 36.3–36.9; O2SAT 96–100; BMI 42.3
[2022-09-18] MEDS: Levothyroxine 112 MCG Tablet PO (04:44)
[2022-09-18] MEDS: Nystatin Powder 15gm Bottle 1 APPLIC TOPICAL ×3 (04:44→21:45)
[2022-09-18 05:21] LABS: Absolute Lymphocyte Count 2.73 X10^3/uL (0.83-4.51); Absolute Neutrophil Count 2.8 X10^3/uL (2.0-7.7); Basophil# 0.05 X10^3/uL; Basophil% 0.8 % (0-1); Eosinophils% 4.6 % (0-5); Hematocrit 32.7 % (37-47); Hemoglobin 10.1 g/dL (12.0-15.0); Lymphocyte # 2.73 X10^3/ul (0.83-4.51); Lymphocyte % 42.3 % (19-41); Mean Corp Hgb Conc 30.9 g/dL (32-36); Mean Platelet Vol. 10.4 fl (6.2-12.0); Monocyte# 0.54 X10^3/uL; Monocyte% 8.4 % (0-10); NRBC Flagged by Analyzer 0 % (0-5); Neutrophil # 2.79 X10^3/uL (2.7-7.7); Neutrophil % 43.1 % (47-70); Platelet Count 208 K/mm3 (150-450); RBC Distribution Width CV 14.2 % (11.6-14.6); RBC Distribution Width SD 50.1 fl (35.1-43.9); Red Blood Count 3.37 M/mm3 (4.2-5.4); White Blood Count 6.5 K/mm3 (4.4-11.0)
[2022-09-18 05:48] LABS: Anion Gap 6 (5-15); BUN 33 mg/dL (7-18); BUN/Creat Ratio 24.8 RATIO (10-20); Calcium,Total 9.8 mg/dL (8.5-10.1); Chloride 102 mmol/L (98-107); Creatinine, Serum 1.33 mg/dL (0.55-1.02); EST Glomerular Filtration Rate 43 mL/min (>60); Est Glom Filt Rate - Afr Amer 52 mL/min (>60); Estimated Creatinine Clearance 35.13 ml/min; Glucose 90 mg/dL (74-106); Potassium 4.3 mmol/L (3.5-5.1); Sodium Level 138 mmol/L (136-145)
[2022-09-18 06:56] LABS: Bedside Glucose 95 mg/dL (74-106)
--- NOTE | 2022-09-18 08:53 | CASEMGMT ---
CECE called Sreekanth, patient's CM at [facility]. CECE left her a voice mail letting her know patient may end up going home. CECE let Sreekanth know patient would like more aide hours and was asking about meals. Zulema June COMMUNICATIONS DESIGNERMaite GONGORA
[2022-09-18] MEDS: LINAGLIPTIN 5 MG TABLET PO (11:06)
[2022-09-18] MEDS: Pantoprazole Sodium 40 MG Tablet PO ×2 (11:06→21:41)
[2022-09-18] MEDS: Ascorbic Acid 500 MG Tablet PO (11:06)
[2022-09-18] MEDS: Calcium Carb/Vitamin D 1 TABLET Tablet PO (11:07)
[2022-09-18] MEDS: Multivitamins,Therapeutic Tablet 1 TABLET PO (11:07)
[2022-09-18] MEDS: Magnesium Chloride 64 MG Delay Rel.Tablet 128 MG PO (11:07)
[2022-09-18] MEDS: guaiFENesin 1,200 MG Tablet 1200 MG PO ×2 (11:07→21:40)
[2022-09-18] MEDS: APIXABAN 5 MG TABLET PO ×2 (11:07→21:44)
[2022-09-18] MEDS: SACUBITRIL/VALSARTAN 49-51 MG TABLET 1 EACH PO ×2 (11:07→21:41)
[2022-09-18] MEDS: DULoxetine Hcl 60 MG Capsule PO ×2 (11:08→21:43)
[2022-09-18] MEDS: Dicyclomine 10 MG Capsule 20 MG PO ×2 (11:08→21:42)
[2022-09-18] MEDS: Venlafaxine HCl 75 MG Tablet PO (11:08)
[2022-09-18] MEDS: Carvedilol 25 MG Tablet PO (11:08)
[2022-09-18] MEDS: Acyclovir 200 MG Capsule 400 MG PO ×2 (11:27→21:44)
[2022-09-18] MEDS: Pregabalin 50 MG Capsule 100 MG PO (11:27)
--- NOTE | 2022-09-18 11:33 | DCINST_ITS ---
Discharge Instructions Diet Discharge Diet: No restrictions Activity Discharge Activity: Return to Normal Activity (Return to normal to oriented) Follow Up Care Test Results: Test results from this visit will be discussed in further detail at your follow- up appointment, if applicable. Discharge Plan Admission Admit Date/Time: 09/11/22 11:12 Primary Reason for Your Visit: Stroke Attending Provider: Mireya Viramontes Primary Care Provider: Brandon Torres Consulting Providers: Nichol Draper ; Markie Blackman Instructions Patient Instructions: Stroke Regaining Movement, Stroke Self Care After, Stroke Prevention Eating Healthy, Booklet - Understanding Stroke Additional Instructions / Restrictions: *Please take this with you to your next doctors appointment* ?On your last hospital discharge it was recommended you follow-up with vascular surgery as an outpatient for continued surveillance of your right internal carotid artery due to a narrowing. Information for Dr. Owen will again be provided for follow-up. ?She will be set up with home health care ? Continue her home medications ? Your only new medication is Eliquis 5 mg twice daily -Please call your primary care provider's office upon discharge to schedule a hospital follow up within 1 week. -For any concerning signs or symptoms please call 911 or proceed to the nearest emergency department Discharge Orders/Prescriptions Prescriptions: New Eliquis 5 mg Tablet 5 mg PO BID 30 Days Qty: 60 0RF Continued Januvia 50 mg tablet 50 mg PO DAILY rosuvastatin [Crestor] 20 mg tablet 20 mg PO QHS calcium carbonate-vitamin D3 [Calcium 600 with Vitamin D3] 600 mg(1,500mg) - 500 unit capsule 1 cap PO DAILY magnesium oxide 400 mg magnesium capsule 400 mg PO DAILY ascorbate calcium (vitamin C) 500 mg tablet 500 mg PO DAILY tizanidine [Zanaflex] 4 mg tablet 4 mg PO Q8H PRN (Reason: Muscle Spasm) Culturelle 10 billion cell capsule 1 cap PO DAILY pregabalin 100 mg capsule 100 mg PO DAILY hydrocodone-acetaminophen 7.5-325 mg tablet 1 - 2 tab PO Q8H PRN (Reason: Pain) multivitamin 1 EACH tablet 1 tab PO DAILY Label Comments: vitamin pantoprazole 40 MG tablet 40 mg PO BID Label Comments: GERD amitriptyline 25 MG tablet 25 mg PO QHS duloxetine 60 MG capsule 60 mg PO BID valacyclovir [Valtrex] 500 MG tablet 500 mg PO DAILY venlafaxine 75 MG tablet 150 mg PO QHS Rx Instructions: 1 tab in morning and 2 tabs at HS zinc 50 mg capsule 50 mg PO/SL DAILY fluticasone propion-salmeterol [Advair Diskus] 100-50 mcg/dose Blister With Device 1 inh INHALATION BID Entresto 49-51 mg Tablet 1 tab PO BID cetirizine [Zyrtec] 10 mg Tablet 10 mg PO DAILY alendronate 70 MG tablet 70 mg PO Rx Instructions: takes on tuesdays aspirin 81 MG tablet,delayed release (DR/EC) 81 mg PO DAILY@0800 dicyclomine 20 mg Tablet 20 mg PO TIDCM levothyroxine 112 mcg Tablet 112 mcg PO DAILY hydralazine 25 mg Tablet 25 mg PO TID guaifenesin [Mucinex] 600 mg Tablet Extended Release 12hr 1,200 mg PO BID carvedilol [Coreg] 25 mg tablet 25 mg PO BID Rx Instructions: must administer with a meal/food Referrals / Follow Up: Alfa Owen MD [Med Staff - Active Staff] - See Referral Note (Follow-up with vascular surgery upon discharge for routine surveillance of a narrowing in your right internal carotid artery) Brandon Torres DO [Primary Care Provider] - Within 1 Week Disposition Disposition (needs filled in before D/C Order can be placed): Home, Self Care
--- NOTE | 2022-09-18 11:39 | CASEMGMT ---
SW received a fax from [facility] and patient was denied for Inpatient Rehab again. SW reviewed patient's therapy notes and patient feels like she is at her baseline with her right upper extremity. Patient also walked 95'. SW met with patient letting her know her insurance has denied the request for Inpatient Rehab again. Patient said she will need home health. SW asked patient if she would like a list of agencies and patient declined stating she wants [facility]. Patient asked about delivered meals. CECE told her SW left a message for Sreekanth. CECE sent a referral to [facility] via [facility]. CECE also called coverage line at [facility] and inquired if SW could set up home delivered meals or if patient's correctional case records supervisor needs to do this. SW was told the Conventions Assistant needs to do this. SW was transferred to Sreekanth's voice mail. SW left her a message letting her know about patient being discharged, wanting meals and more aide hours. Plan: Home with HH PT/OT. Zulema June SENIOR SYSTEMS ARCHITECT ROLAN
--- NOTE | 2022-09-18 11:41 | PCM.DC.SUM ---
Providers Date of Admission: 09/11/22 Date of Discharge: 09/18/22 Primary Care Physician: Dr. Brandon Torres, Reason For Visit: ACUTE CVA Diagnosis Discharge Diagnosis (1) Right arm weakness: Status: Resolved Code(s): R29.898 - Other symptoms and signs involving the musculoskeletal system (2) Embolic stroke: Status: Acute Code(s): I63.9 - Cerebral infarction, unspecified Plan 1. RUE weakness due to embolic stroke/HTN/HLD 2.? Cervical stenosis 3.? COPD 4.? Type 2 diabetes mellitus 5.? GERD 6.? Anxiety/depression 7.? Osteoporosis Medications at Discharge Home Medications multivitamin 1 tab PO DAILY vitamin 12/29/17 pantoprazole 40 mg tablet,delayed release 40 mg PO BID GERD 03/29/19 amitriptyline 25 mg tablet 25 mg PO QHS mood 08/10/19 rosuvastatin 20 mg tablet (Crestor) 20 mg PO QHS cholesterol 08/25/19 sitagliptin phosphate 50 mg tablet (Januvia) 50 mg PO DAILY diabetes 09/04/19 duloxetine 60 mg capsule,delayed release 60 mg PO BID nerve pain 10/19/20 valacyclovir 500 mg tablet (Valtrex) 500 mg PO DAILY cold soars 10/19/20 tizanidine 4 mg tablet (Zanaflex) 4 mg PO Q8H PRN Muscle Spasm 01/26/21 ascorbate calcium (vitamin C) 500 mg tablet 500 mg PO DAILY vitamin 01/27/21 calcium carbonate 600 mg-vitamin D3 12.5 mcg (500 unit) capsule (Calcium 600 with Vitamin D3) 1 cap PO DAILY supplement 01/27/21 magnesium oxide 400 mg PO DAILY supplement 01/27/21 venlafaxine 75 mg tablet 150 mg PO QHS depression 02/04/21 Lactobacillus rhamnosus GG 10 billion cell capsule (Culturelle) 1 cap PO DAILY 05/18/21 pregabalin 100 mg capsule 100 mg PO DAILY Nerve pain 05/18/21 carvedilol 25 mg tablet (Coreg) 25 mg PO BID BP 08/23/21 fluticasone 100 mcg-salmeterol 50 mcg/dose blistr powdr for inhalation (Advair Diskus) 1 inh inhalation BID Breathing 02/11/22 sacubitril 49 mg-valsartan 51 mg tablet (Entresto) 1 tab PO BID Heart 02/11/22 alendronate 70 mg tablet 70 mg PO TU BONES 02/13/22 cetirizine 10 mg tablet (Zyrtec) 10 mg PO DAILY ALLERGIES 02/13/22 aspirin 81 mg tablet,delayed release 81 mg PO DAILY@0800 Heart health 02/15/22 zinc 50 mg PO/SL DAILY 05/10/22 hydrocodone 7.5 mg-acetaminophen 325 mg tablet 1 - 2 tab PO Q8H PRN Pain 06/19/22 dicyclomine 20 mg tablet 20 mg PO TIDCM 09/11/22 guaifenesin 600 mg tablet, extended release 12 hr (Mucinex) 1,200 mg PO BID 09/11/22 hydralazine 25 mg tablet 25 mg PO TID bp 09/11/22 levothyroxine 112 mcg tablet 112 mcg PO DAILY 09/11/22 apixaban 5 mg tablet (Eliquis) 5 mg PO BID 30 days #60 tabs 09/18/22 Hospital Course Procedures Transesophageal Echo Summary of Care Provided Minutes Spent on Discharge: 32 Hospital Course: 61-year-old female with a past medical history of ACTH deficiency, COPD, carotid artery stenosis, CKD stage III, hypertension, depression, hypothyroidism, and type 2 diabetes mellitus who presented to [facility] 09/11/2022 with right arm weakness and numbness. She was recently here for a stroke and discharged home just 2 days prior to presentation. At that time she had been recommended to be on anticoagulation due to concern for arrhythmia but she preferred to follow-up with her primary care physician to discuss this. CT of the brain showed new subtle area of decreased attenuation in the left posterior parietal lobe and MRI showed no acute infarct in the left anterior parietal lobe and small acute ischemic infarction in the right cerebral hemisphere suggesting embolic disease. There is also a subacute to chronic left posterior parietal infarct. ZAHRA performed showed no thrombus and bubble study negative. She was taken off of aspirin and Plavix and placed on Eliquis. Initially had been evaluated and rehab recommended, however she was denied by insurance and appeal also denied. Discussed this with her prior to discharge and she reports good support system at home and understands that she will have home health as well upon discharge. No other medication changes. It was advised that she follow with vascular surgery as was previously advised on last admission due to right internal carotid stenosis, information again provided. On the day of discharge she reports physically she is feeling well, right hand is improving locker room attendant strength, still unable to extend fingers but has been continuing to work on this. Denied any other physical complaints on day of discharge. No chest pain, no shortness of breath Physical Exam Const alert and no apparent distress Constitutional Narrative: Oriented HEENT normocephalic and head/scalp atraumatic Eyes Eyes Narrative: EOM grossly intact, anicteric Neck supple Resp normal respiratory effort and clear to auscultation bilaterally Cardio regular rate and regular rhythm GI soft to palpation, non-tender and non-distended Extremity Extremity Narrative: No edema appreciated Neuro Neuro Narrative: Unable to extend fingers on right hand, able to locker room attendant, slightly weaker than left side. Has chronic leg deficit as well, no other focal deficits appreciated Psych Psych Narrative: Cooperative Weight / BMI Weight Weight: 104.8 kg Body Mass Index (BMI) 42.3 ABG / Lab / Microbiology Data Result Diagrams: 09/18/22 04:29 09/18/22 04:29 Laboratory: Laboratory Results - last 24 hr 09/17/22 16:47: POC Glucose 146 H 09/17/22 20:20: POC Glucose 118 H 09/18/22 04:29: WBC 6.5, RBC 3.37 L, Hgb 10.1 L, Hct 32.7 L, MCV 97.0, MCH 30.0, MCHC 30.9 L, RDW Std Deviation 50.1 H, RDW Coeff of Lencho 14.2, Plt Count 208, MPV 10.4, Immature Gran % (Auto) 0.800, Neut % (Auto) 43.1 L, Lymph % (Auto) 42.3 H, Otoe % (Auto) 8.4, Eos % (Auto) 4.6, Baso % (Auto) 0.8, Absolute Neuts (auto) 2.8, Absolute Lymphs (auto) 2.73, Nucleated RBC % 0 09/18/22 04:29: Sodium 138, Potassium 4.3, Chloride 102, Carbon Dioxide 30.0, Anion Gap 6, BUN 33 H, Creatinine 1.33 H, Estim Creat Clear Calc 35.13, Est GFR (MDRD) Af Amer 52 L, Est GFR (MDRD) Non-Af 43 L, BUN/Creatinine Ratio 24.8 H, Glucose 90, Calcium 9.8 09/18/22 06:25: POC Glucose 95 Microbiology: Microbiology 09/13/22 05:45 Nasal Secretion SARS-CoV-2 Antigen (Rapid) - Final D/C Instructions Discharge Diet: No restrictions Meaningful Use Info Meaningful Use Diagnoses (Choose all that apply): None applicable Discharge Plan Admission Admit Date/Time: 09/11/22 11:12 Primary Reason for Your Visit: Stroke Attending Provider: Mireya Viramontes Primary Care Provider: Brandon Torres Consulting Providers: Nichol Draper ; Markie Blackman Instructions Patient Instructions: Stroke Regaining Movement, Stroke Self Care After, Stroke Prevention Eating Healthy, Booklet - Understanding Stroke Additional Instructions / Restrictions: *Please take this with you to your next doctors appointment* ?On your last hospital discharge it was recommended you follow-up with vascular surgery as an outpatient for continued surveillance of your right internal carotid artery due to a narrowing. Information for Dr. Owen will again be provided for follow-up. ?She will be set up with home health care ? Continue her home medications ? Your only new medication is Eliquis 5 mg twice daily -Please call your primary care provider's office upon discharge to schedule a hospital follow up within 1 week. -For any concerning signs or symptoms please call 911 or proceed to the nearest emergency department Discharge Orders/Prescriptions Prescriptions: New Eliquis 5 mg Tablet 5 mg PO BID 30 Days Qty: 60 0RF Continued Januvia 50 mg tablet 50 mg PO DAILY rosuvastatin [Crestor] 20 mg tablet 20 mg PO QHS calcium carbonate-vitamin D3 [Calcium 600 with Vitamin D3] 600 mg(1,500mg) -500 unit capsule 1 cap PO DAILY magnesium oxide 400 mg magnesium capsule 400 mg PO DAILY ascorbate calcium (vitamin C) 500 mg tablet 500 mg PO DAILY tizanidine [Zanaflex] 4 mg tablet 4 mg PO Q8H PRN (Reason: Muscle Spasm) Culturelle 10 billion cell capsule 1 cap PO DAILY pregabalin 100 mg capsule 100 mg PO DAILY hydrocodone-acetaminophen 7.5-325 mg tablet 1 - 2 tab PO Q8H PRN (Reason: Pain) multivitamin 1 EACH tablet 1 tab PO DAILY Label Comments: vitamin pantoprazole 40 MG tablet 40 mg PO BID Label Comments: GERD amitriptyline 25 MG tablet 25 mg PO QHS duloxetine 60 MG capsule 60 mg PO BID valacyclovir [Valtrex] 500 MG tablet 500 mg PO DAILY venlafaxine 75 MG tablet 150 mg PO QHS Rx Instructions: 1 tab in morning and 2 tabs at HS zinc 50 mg capsule 50 mg PO/SL DAILY fluticasone propion-salmeterol [Advair Diskus] 100-50 mcg/dose Blister With Device 1 inh INHALATION BID Entresto 49-51 mg Tablet 1 tab PO BID cetirizine [Zyrtec] 10 mg Tablet 10 mg PO DAILY alendronate 70 MG tablet 70 mg PO Rx Instructions: takes on tuesdays aspirin 81 MG tablet,delayed release (DR/EC) 81 mg PO DAILY@0800 dicyclomine 20 mg Tablet 20 mg PO TIDCM levothyroxine 112 mcg Tablet 112 mcg PO DAILY hydralazine 25 mg Tablet 25 mg PO TID guaifenesin [Mucinex] 600 mg Tablet Extended Release 12hr 1,200 mg PO BID carvedilol [Coreg] 25 mg tablet 25 mg PO BID Rx Instructions: must administer with a meal/food Referrals / Follow Up: Alfa Owen MD [Med Staff - Active Staff] - See Referral Note (Follow-up with vascular surgery upon discharge for routine surveillance of a narrowing in your right internal carotid artery) Brandon Torres DO [Primary Care Provider] - Within 1 Week Disposition Disposition (needs filled in before D/C Order can be placed): Home, Self Care Charges/Coding Visit Charges Inpatient E&M: 66573 Disch Hosp
[2022-09-18 12:31] LABS: Bedside Glucose 130 mg/dL (74-106)
--- NOTE | 2022-09-18 12:59 | CASEMGMT ---
[facility] declined patient. SW went to patient's room letting her know. SW provided patient with a list of home health providers including quality and resource use data and consistent with patient?s preferred geographic region, medical needs, and insurance network were provided from the [employer] Guide. Patient's next choice is [facility]. CECE sent referral to [facility] via [facility] and also faxed referral. CECE received a call from Sreekanth with [facility]. Sreekanth spoke with patient and will work on patient's requests for increased aide services and meals. CECE will call [facility] to check on status of referral. Zulema June BODY MECHANIC APPRENTICE ROLAN
--- NOTE | 2022-09-18 13:23 | CASEMGMT ---
Addendum entered by Zulema June 09/18/22 13:35: SW already received a denial from [facility]. SW spoke with patient letting her know this information and her next choice is [facility]. RN ELIE Blanco made referral. Await response. Patient is fine waiting a day or two for her quad cane. SW notified Smiley at [facility] and she will get one ordered and sent to patient's home Zulema GONGORA Original Note: CECE called [facility] and they declined patient as they do not have PT/OT right now. CECE spoke with patient and her next choice is [facility]. [facility]. Patient wanted a quad cane and she requested [employer]. SW sent request to [facility] via [facility]. They do not have any at this branch, but she could get her one tomorrow or the day after. SW will check with patient to see what she would like to do. Zulema GONGORA
--- NOTE | 2022-09-18 13:33 | PHA.DC.MC ---
Pharmacy Service has performed discharge medication reconciliation and counseling for this patient. 1. APIXABAN 5MG PO BID The patient's discharge medication list was reviewed for discrepancies and discrepancies were resolved. Home Medications multivitamin 1 tab PO DAILY vitamin 12/29/17 pantoprazole 40 mg tablet,delayed release 40 mg PO BID GERD 03/29/19 amitriptyline 25 mg tablet 25 mg PO QHS mood 08/10/19 rosuvastatin 20 mg tablet (Crestor) 20 mg PO QHS cholesterol 08/25/19 sitagliptin phosphate 50 mg tablet (Januvia) 50 mg PO DAILY diabetes 09/04/19 duloxetine 60 mg capsule,delayed release 60 mg PO BID nerve pain 10/19/20 valacyclovir 500 mg tablet (Valtrex) 500 mg PO DAILY cold soars 10/19/20 tizanidine 4 mg tablet (Zanaflex) 4 mg PO Q8H PRN Muscle Spasm 01/26/21 ascorbate calcium (vitamin C) 500 mg tablet 500 mg PO DAILY vitamin 01/27/21 calcium carbonate 600 mg-vitamin D3 12.5 mcg (500 unit) capsule (Calcium 600 with Vitamin D3) 1 cap PO DAILY supplement 01/27/21 magnesium oxide 400 mg PO DAILY supplement 01/27/21 venlafaxine 75 mg tablet 150 mg PO QHS depression 02/04/21 Lactobacillus rhamnosus GG 10 billion cell capsule (Culturelle) 1 cap PO DAILY 05/18/21 pregabalin 100 mg capsule 100 mg PO DAILY Nerve pain 05/18/21 carvedilol 25 mg tablet (Coreg) 25 mg PO BID BP 08/23/21 fluticasone 100 mcg-salmeterol 50 mcg/dose blistr powdr for inhalation (Advair Diskus) 1 inh inhalation BID Breathing 02/11/22 sacubitril 49 mg-valsartan 51 mg tablet (Entresto) 1 tab PO BID Heart 02/11/22 alendronate 70 mg tablet 70 mg PO TU BONES 02/13/22 cetirizine 10 mg tablet (Zyrtec) 10 mg PO DAILY ALLERGIES 02/13/22 aspirin 81 mg tablet,delayed release 81 mg PO DAILY@0800 Heart health 02/15/22 zinc 50 mg PO/SL DAILY 05/10/22 hydrocodone 7.5 mg-acetaminophen 325 mg tablet 1 - 2 tab PO Q8H PRN Pain 06/19/22 dicyclomine 20 mg tablet 20 mg PO TIDCM 09/11/22 guaifenesin 600 mg tablet, extended release 12 hr (Mucinex) 1,200 mg PO BID 09/11/22 hydralazine 25 mg tablet 25 mg PO TID bp 09/11/22 levothyroxine 112 mcg tablet 112 mcg PO DAILY 09/11/22 apixaban 5 mg tablet (Eliquis) 5 mg PO BID 30 days #60 tabs 09/18/22 The patient was counseled on the following discharge medications and changes in medications for homegoing were reviewed. The Reason for Use, instructions for use, and potential side effects were reviewed for all new medications. The patient's questions regarding all of their medications were answered. The patient was able to verbally demonstrate an understanding of their discharge medications. Patient counseled by floor space allocatorThu.
--- NOTE | 2022-09-18 14:28 | CASEMGMT ---
Addendum entered by Zulema June 09/18/22 14:56: SW received responses from [facility], [facility], and [facility]. They have all declined patient. SW sent additional referrals to [facility], [facility], and [facility]. Await responses. Zulema GONGORA Original Note: SW spoke with patient and let her know [facility] is out of network. Patient told SW to just find an agency that can accept her. SW sent referrals to [facility], [facility], [facility] , and [facility]. Await responses. Zulema GONGORA
--- NOTE | 2022-09-18 15:23 | CASEMGMT ---
CECE received a call from [facility] and they can accept patient. They will see patient on Sunday. CECE will notify patient. Plan: Home with [facility] and a quad cane through [employer] which will be delivered to patient's home. Zulema GONGORA
--- NOTE | 2022-09-18 15:48 | CASEMGMT ---
CECE notified patient [facility] will see her Sunday. CECE also let her know the quad cane will get delivered tomorrow or the next day. Plan: d/c home with [facility] PT/OT and quad can will be delivered tomorrow or the next day. Zulema June PUBLIC RELATIONS ACCOUNT SUPERVISOR ROLAN
--- NOTE | 2022-09-18 16:40 | CT_ITS ---
STUDY: CT BRAIN WITHOUT CONTRAST REASON FOR EXAM: Female, 61 years old. Decreased alertness. Loss of consciousness. RADIATION DOSAGE (If Supplied By Facility): CTDIvol = ( 44.99 ) mGy, DLP = ( 779.24 ) mGycm TECHNIQUE: Transaxial CT imaging of the brain was performed without administration of intravenous contrast material. Individualized dose optimization techniques were used for this CT. COMPARISON: September 16, 2022. FINDINGS: Normal soft tissue structures. Normal calvarium. Normal size ventricles and extra-axial spaces for the patient''s age. Again seen is an area of low attenuation involving the left parietal lobe consistent with evolving infarct. This appears essentially stable when compared to the earlier exam. Otherwise normal white matter tracts of the cerebral hemispheres. Normal basal ganglia and thalami. Normal brainstem. Normal cerebellum. There is no intracranial hemorrhage. There are no other findings of an acute ischemic infarction. Normal visualized paranasal sinuses. CT/Brain/Head without Contrast IMPRESSION: Stable left parietal lobe infarct without other interval change. Electronically Signed: Rolando Argueta DO at 17:48 EST Reading Location ID and State: [address] [facility] Tel [phone], Service support ,
[2022-09-18 17:04] LABS: BNP,B-Type NATRIURETIC PEPTIDE 12.5 pg/mL (0-100)
[2022-09-18 17:11] LABS: Allen Test Positive; Base Excess -3 mmol/L (-2 to +2); Bicarbonate 23.2 mmol/L (22-26); Blood Gas Specimen Type ART; FI02 21; O2 Delivery Device Room Air; PO2 75 mmHG (75-100); SITE R Radial; SO2 93 % (95-99); Total Carbon Dioxide 25 mmol/L; pCO2 47.8 mmHg (35-45)
--- NOTE | 2022-09-18 17:25 | PCM.PN.HOSP ---
Subjective Subjective DOS 09/18/22 CC: f/u stroke Pt this AM was doing well and ready for d/c however she became hypotensive and tired prior to d/c. At th time of exam tired but denied any other complaints. Objective Data Objective Data Vital Signs: Vital Signs Temp Pulse Resp BP Pulse Ox O2 Del Method 97.9 F 86 16 71/60 L 96 Room Air 09/18/22 15:00 09/18/22 15:00 09/18/22 15:00 09/18/22 16:49 09/18/22 15:00 09/18/22 15:00 Oxygen Delivery Method Room Air Weight: 104.8 kg Body Mass Index (BMI) 42.3 Intake & Output: Intake and Output for Last 24 Hours 09/16/22 09/17/22 09/18/22 23:59 23:59 23:59 Intake Total 880 / 1030 850 / 1050 680 / 680 Balance 880 / 1030 850 / 1050 680 / 680 Lab / Micro Data Result Diagrams: 09/18/22 04:29 09/18/22 04:29 Labs: Laboratory Results - last 24 hr 09/17/22 16:47: POC Glucose 146 H 09/17/22 20:20: POC Glucose 118 H 09/18/22 04:29: WBC 6.5, RBC 3.37 L, Hgb 10.1 L, Hct 32.7 L, MCV 97.0, MCH 30.0, MCHC 30.9 L, RDW Std Deviation 50.1 H, RDW Coeff of Lencho 14.2, Plt Count 208, MPV 10.4, Immature Gran % (Auto) 0.800, Neut % (Auto) 43.1 L, Lymph % (Auto) 42.3 H, [place] % (Auto) 8.4, Eos % (Auto) 4.6, Baso % (Auto) 0.8, Absolute Neuts (auto) 2.8, Absolute Lymphs (auto) 2.73, Nucleated RBC % 0 09/18/22 04:29: Sodium 138, Potassium 4.3, Chloride 102, Carbon Dioxide 30.0, Anion Gap 6, BUN 33 H, Creatinine 1.33 H, Estim Creat Clear Calc 35.13, Est GFR (MDRD) Af Amer 52 L, Est GFR (MDRD) Non-Af 43 L, BUN/Creatinine Ratio 24.8 H, Glucose 90, Calcium 9.8 09/18/22 04:29: B-Natriuretic Peptide 12.5 09/18/22 06:25: POC Glucose 95 09/18/22 11:32: POC Glucose 130 H Micro: Microbiology 09/13/22 05:45 Nasal Secretion SARS-CoV-2 Antigen (Rapid) - Final ABG Data ABG results: ABG 09/18/22 17:04 Specimen Type ART Sample Site R Radial pH 7.30 L Bicarbonate Actual 23.2 Total CO2 25 Base Excess -3 L O2 Saturation 93 L O2 % 21 ABG pCO2 47.8 H ABG pO2 75 Juan Test Positive O2 Delivery Device Room Air Rhythm Strip Rhythm Strip: Sinus Rhythm Rate: 80 Ectopy: None Physical Exam Const Constitutional Narrative: Sleepy but wakes up to voice though quickly falls back asleep HEENT head/scalp atraumatic Eyes Eyes Narrative: Pupils equal, difficulty staying awake for EOM but no over deficits appreciated Neck supple Resp normal respiratory effort Cardio regular rate and regular rhythm GI soft to palpation, non-tender and non-distended Extremity Extremity Narrative: Moving all extremities, R hand deficit and leg deficit as previous Neuro Neuro Narrative: Moving all extremities, difficulty participating in neuroexam Psych Psych Narrative: cooperative Assessment & Plan Assessment/Plan (1) Right arm weakness: PLAN: Plan #hypotension Tired, Not tachypneic or tachycardic Other than tired no new complaints Stat labs and cultures ordered No s/s of new infection CT head stat to assess for bleed ABG with mild acidosis LA and other labs pending Giving 1L bolus Monitoring closely 1. 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 high intensity statin 2D echo from 09/08/2022 showed EF of 55-60% with normal LV systolic function ZAHRA was unremarkable Had a CT brain which was negative for bleed initially, her aspirin and Plavix were discontinued and she was started on Eliquis 09/16 night She also need to follow-up with vascular surgery as an outpatient to continue surveillance of her right ICA stenosis with a 50 to 69% narrowing on carotid duplex 2. Cervical stenosis MRI of the cervical spine showed moderate stenosis of C3 and C4 as well as C5 and C6. Follow-up with PCP for referral to spine surgeon 3. COPD: Not in exacerbation. Continue breathing treatment with bronchodilators. 4. Type 2 diabetes mellitus: On insulin sliding scale. Accu-Cheks ACH S. on sitagliptin. 5. GERD: On PPI 6. Anxiety/depression: Stable continue with cymbalta, cannot be on 2 SNRI's at one time, will d/c venlafaxine and continue cymbalta 7. Osteoporosis: Continue with alendronate DVT: Eliquis Disposition: Given where her deficits are in the severity of bone would recommend extensive rehab on discharge Charges/Coding Visit Charges Inpatient E&M: 93929 Subs Hosp L2
[2022-09-18 17:35] LABS: Bedside Glucose 141 mg/dL (74-106)
[2022-09-18 18:37] LABS: Anion Gap 8 (5-15); BUN 35 mg/dL (7-18); Calcium,Total 10.2 mg/dL (8.5-10.1); Chloride 103 mmol/L (98-107); Creatinine, Serum 1.59 mg/dL (0.55-1.02); EST Glomerular Filtration Rate 35 mL/min (>60); Est Glom Filt Rate - Afr Amer 42 mL/min (>60); Estimated Creatinine Clearance 29.39 ml/min; Glucose 125 mg/dL (74-106); Potassium 5.1 mmol/L (3.5-5.1); Sodium Level 138 mmol/L (136-145)
[2022-09-18 18:45] LABS: Lactic Acid 1.8 mmol/L (0.4-1.9)
--- NOTE | 2022-09-18 20:04 | NURSING ---
This RN went into pt room and pt was lethargic and drowsy. Upon assessment of vitals signs the pt was found to be hypotensive. Dr. Viramontes was notified and orders were given. The patient was sitting in the chair and it was noted the pts belongings were next to the chair. Synthroid, norco, and benadryl were found in the patients bag. The patient became more alert and when questions about the meds in the bag the pt told this RN that she took some of her own pills. This RN asked the patient which pills she took and why she took them. The pt stated I just took them because I didn't want to ask for them and I wanted to escape all of this for a few minutes but I would never try to kill myself and I am not suicidal. This RN notified Dr. Viramontes.
--- NOTE | 2022-09-18 20:28 | NURSING ---
notified pt about having a sitter overnight and someone from crisis center will evaluate her in the morning. Pt made aware that personal belongings will be locked in a bin and to be kept in the room. Also let pt know that she has to switch to a hospital gown at this time.
[2022-09-18] MEDS: Atorvastatin Calcium 40 MG Tablet PO (21:42)
[2022-09-18 23:00] LABS: Bedside Glucose 100 mg/dL (74-106)
[2022-09-19] VITALS (9 sets, daily range): BP systolic 111–137; BP diastolic 68–85; PULSE 94–116; RESP 16–18; TEMP 36.6–37.1; O2SAT 95–100; BMI 42.3
[2022-09-19 00:29] LABS: Bacteria 0 SEEN /hpf (None Seen); Mucous, Urine 0 SEEN /hpf (<or=2+); Red Blood Cells-Urine 0 SEEN /hpf (0-5); Squamous Epithelial Cells - UA 0 SEEN /hpf (5-10); White Blood Cells 0 SEEN /hpf (0-5)
[2022-09-19 00:30] LABS: Color, Urine Yellow (Yellow); Glucose, Dipstick Normal (Normal); Ketone-Dipstick Negative (Negative); Leukocyte Esterase-Dipstick Negative /ul (Negative); Nitrite-Dipstick Negative (Negative); Occult Blood-Urine Negative /ul (Negative); Protein-Dipstick 15 mg/dl (Negative); Specific Gravity, Urine 1.015 (1.002-1.030); Urine Bilirubin Dipstick Negative (Negative); Urine Clarity Clear (Clear); Urine Urobilinogen Normal (Normal)
[2022-09-19 00:44] LABS: Amphetamine Urine VISTA NEGATIVE (<1000 ng/mL); Barbiturate Urine VISTA NEGATIVE (< 200 ng/mL); Benzodiazepine Urine VISTA NEGATIVE (< 200 ng/mL); Cocaine Urine VISTA NEGATIVE (< 300 ng/mL); Ecstacy Urine VISTA NEGATIVE (< 500 ng/mL); Methadone Urine VISTA NEGATIVE (< 300 ng/mL); PCP Urine VISTA NEGATIVE (< 25 ng/mL); THC Urine VISTA NEGATIVE (< 50 ng/mL); Vista UDS pH Range 6
--- NOTE | 2022-09-19 01:07 | NURSING ---
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 pt room prepared. pt belongings placed into black bin. pt is aware unable to wear regular clothing at this time. hospital gown provided. Charge nurse aware.
--- NOTE | 2022-09-19 01:15 | NURSING ---
call placed to the counseling center for AM crisis evaluation. the center to return call.
[2022-09-19 02:15] LABS: Bedside Glucose 71 mg/dL (74-106)
[2022-09-19] MEDS: Alendronate Sodium 70 MG Tablet PO (05:07)
[2022-09-19] MEDS: Nystatin Powder 15gm Bottle 1 APPLIC TOPICAL ×3 (05:07→21:21)
[2022-09-19] MEDS: Levothyroxine 112 MCG Tablet PO (05:07)
[2022-09-19 06:41] LABS: Bedside Glucose 123 mg/dL (74-106)
[2022-09-19 08:35] LABS: Absolute Lymphocyte Count 2.18 X10^3/uL (0.83-4.51); Absolute Neutrophil Count 4.3 X10^3/uL (2.0-7.7); Basophil# 0.06 X10^3/uL; Basophil% 0.8 % (0-1); Eosinophil# 0.24 X10^3/uL; Eosinophils% 3.2 % (0-5); Hematocrit 33.2 % (37-47); Hemoglobin 10.6 g/dL (12.0-15.0); Lymphocyte # 2.18 X10^3/ul (0.83-4.51); Lymphocyte % 29.3 % (19-41); Mean Corp Hgb Conc 31.9 g/dL (32-36); Mean Corpuscular Hgb 30.5 pg (27.0-32.0); Mean Corpuscular Volume 95.4 fL (81-99); Mean Platelet Vol. 10.1 fl (6.2-12.0); Monocyte# 0.62 X10^3/uL; Monocyte% 8.3 % (0-10); NRBC Flagged by Analyzer 0 % (0-5); Neutrophil # 4.32 X10^3/uL (2.7-7.7); Platelet Count 206 K/mm3 (150-450); RBC Distribution Width CV 14.3 % (11.6-14.6); RBC Distribution Width SD 49.7 fl (35.1-43.9); Red Blood Count 3.48 M/mm3 (4.2-5.4); White Blood Count 7.5 K/mm3 (4.4-11.0)
[2022-09-19 09:07] LABS: AST(SGOT) 27 U/L (15-37); Alanine Aminotransfer ALT/SGPT 29 U/L (13-56); Albumin, Serum 3.9 g/dL (3.2-5.0); Alkaline Phosphatase 65 U/L (45-117); Anion Gap 7 (5-15); BUN 32 mg/dL (7-18); BUN/Creat Ratio 29.1 RATIO (10-20); Calcium,Total 9.7 mg/dL (8.5-10.1); Chloride 106 mmol/L (98-107); EST Glomerular Filtration Rate 54 mL/min (>60); Est Glom Filt Rate - Afr Amer 65 mL/min (>60); Estimated Creatinine Clearance 42.48 ml/min; Globulin 3.8 g/dL (2.2-4.2); Glucose 132 mg/dL (74-106); Potassium 4.7 mmol/L (3.5-5.1); Protein, Total 7.7 g/dL (6.4-8.2); Sodium Level 137 mmol/L (136-145)
[2022-09-19] MEDS: DULoxetine Hcl 60 MG Capsule PO ×2 (10:55→21:21)
[2022-09-19] MEDS: LINAGLIPTIN 5 MG TABLET PO (10:55)
[2022-09-19] MEDS: Ascorbic Acid 500 MG Tablet PO (10:55)
[2022-09-19] MEDS: guaiFENesin 1,200 MG Tablet 1200 MG PO ×2 (10:55→21:22)
[2022-09-19] MEDS: Acyclovir 200 MG Capsule 400 MG PO ×2 (10:55→21:21)
[2022-09-19] MEDS: SACUBITRIL/VALSARTAN 49-51 MG TABLET 1 EACH PO ×2 (10:56→21:21)
[2022-09-19] MEDS: Pantoprazole Sodium 40 MG Tablet PO ×2 (10:56→21:21)
[2022-09-19] MEDS: APIXABAN 5 MG TABLET PO ×2 (10:56→21:22)
[2022-09-19] MEDS: Magnesium Chloride 64 MG Delay Rel.Tablet 128 MG PO (10:56)
[2022-09-19 11:51] LABS: Bedside Glucose 145 mg/dL (74-106)
--- NOTE | 2022-09-19 12:15 | CASEMGMT ---
Crisis came to evaluate patient. tie worker spoke with Dr Viramontes and both agree patient should be placed in a psychiatric unit. Zulema June DIRECTOR OF FOOD AND NUTRITION ROLAN
--- NOTE | 2022-09-19 13:33 | CASEMGMT ---
CECE spoke with [facility] and let them know that patient may be going somewhere for continued care. SW will let them know by the end of the day. Zulema June BUSINESS INTELLIGENCE ENGINEER ROLAN
[2022-09-19] MEDS: Dicyclomine 10 MG Capsule 20 MG PO ×2 (14:09→17:22)
[2022-09-19] MEDS: Calcium Carb/Vitamin D 1 TABLET Tablet PO (14:09)
[2022-09-19] MEDS: Multivitamins,Therapeutic Tablet 1 TABLET PO (14:09)
--- NOTE | 2022-09-19 14:24 | NURSING ---
Pt informed this RN she does not want any information shared with her sister Dee Michaud.
--- NOTE | 2022-09-19 15:09 | CASEMGMT ---
Per Dr. Viramontes, [facility] is recommending inpt psych placement. [facility] is working on placement. Robyn ERICKSON CM
--- NOTE | 2022-09-19 15:44 | CASEMGMT ---
CECE called [facility] and spoke with Cris letting her know patient will be going to a facility at discharge. CECE told Cris SW will let them know if something changes. Cris said they will keep patient's referral just in case something changes. Zulema June BOBBIN TRUCKERMaite GONGORA
--- NOTE | 2022-09-19 16:01 | PN.HOSP_ITS ---
Subjective Subjective DOS 09/19/22 CC: f/u taking medications Yesterday Objective Data Objective Data Vital Signs: Vital Signs Temp Pulse Resp BP Pulse Ox O2 Del Method 98.7 F 94 16 126/76 H 98 Room Air 09/19/22 10:00 09/19/22 10:00 09/19/22 10:00 09/19/22 10:00 09/19/22 10:00 09/19/22 10:00 Oxygen Delivery Method Room Air Weight: 104.8 kg Body Mass Index (BMI) 42.3 Intake & Output: Intake and Output for Last 24 Hours 09/17/22 09/18/22 09/19/22 23:59 23:59 23:59 Intake Total 850 / 1050 1316.65 / 1556.65 840 / 840 Balance 850 / 1050 1316.65 / 1556.65 840 / 840 Lab / Micro Data Result Diagrams: 09/19/22 08:25 09/19/22 08:25 Labs: Laboratory Results - last 24 hr 09/18/22 04:29: B-Natriuretic Peptide 12.5 09/18/22 16:14: POC Glucose 141 H 09/18/22 17:40: Lactic Acid 1.8 09/18/22 17:40: Sodium 138, Potassium 5.1, Chloride 103, Carbon Dioxide 27.0, Anion Gap 8, BUN 35 H, Creatinine 1.59 H, Estim Creat Clear Calc 29.39, Est GFR (MDRD) Af Amer 42 L, Est GFR (MDRD) Non-Af 35 L, BUN/Creatinine Ratio 22.0 H, Glucose 125 H, Calcium 10.2 H 09/18/22 21:39: POC Glucose 71 L 09/18/22 22:41: POC Glucose 100 09/19/22 00:00: Urine Opiates Screen POSITIVE H, Urine Methadone Screen NEGATIVE, Ur Barbiturates Screen NEGATIVE, Ur Phencyclidine Scrn NEGATIVE, Ur Amphetamines Screen NEGATIVE, MDMA (Ecstasy) Screen NEGATIVE, U Benzodiazepines Scrn NEGATIVE, Urine Cocaine Screen NEGATIVE, U Cannabinoids Screen NEGATIVE, Ur Drug Screen Comment 09/19/22 00:00: Urine Color Yellow, Urine Clarity Clear, Urine pH 6.0, Ur Specific [place] 1.015, Urine Protein 15 H, Urine Glucose (UA) Normal, Urine Ketones Negative, Urine Occult Blood Negative, Urine Nitrite Negative, Urine Bilirubin Negative, Urine Urobilinogen Normal, Ur Leukocyte Esterase Negative, Urine RBC 0 SEEN, Urine WBC 0 SEEN, Ur Squamous Epith Cells 0 SEEN, Urine Bacteria 0 SEEN, Urine Mucus 0 SEEN 09/19/22 06:19: POC Glucose 123 H 09/19/22 08:25: WBC 7.5, RBC 3.48 L, Hgb 10.6 L, Hct 33.2 L, MCV 95.4, MCH 30.5, MCHC 31.9 L, RDW Std Deviation 49.7 H, RDW Coeff of Lencho 14.3, Plt Count 206, MPV 10.1, Immature Gran % (Auto) 0.400, Neut % (Auto) 58.0, Lymph % (Auto) 29.3, [place] % (Auto) 8.3, Eos % (Auto) 3.2, Baso % (Auto) 0.8, Absolute Neuts (auto) 4.3, Absolute Lymphs (auto) 2.18, Nucleated RBC % 0 09/19/22 08:25: Sodium 137, Potassium 4.7, Chloride 106, Carbon Dioxide 24.0, Anion Gap 7, BUN 32 H, Creatinine 1.10 H, Estim Creat Clear Calc 42.48, Est GFR (MDRD) Af Amer 65, Est GFR (MDRD) Non-Af 54 L, BUN/Creatinine Ratio 29.1 H, Glucose 132 H, Calcium 9.7, Total Bilirubin 0.30, AST 27, ALT 29, Alkaline Phosphatase 65, Total Protein 7.7, Albumin 3.9, Globulin 3.8, Albumin/Globulin Ratio 1.0 09/19/22 11:21: POC Glucose 145 H Micro: Microbiology 09/13/22 05:45 Nasal Secretion SARS-CoV-2 Antigen (Rapid) - Final ABG Data ABG results: ABG 09/18/22 17:04 Specimen Type ART Sample Site R Radial pH 7.30 L Bicarbonate Actual 23.2 Total CO2 25 Base Excess -3 L O2 Saturation 93 L O2 % 21 ABG pCO2 47.8 H ABG pO2 75 Juan Test Positive O2 Delivery Device Room Air Radiography Diagnostic Testing: Radiology Impression Brain CT 09/18/22 16:40 IMPRESSION: Stable left parietal lobe infarct without other interval change. Electronically Signed: Rolando Argueta DO at 17:48 EST , Rhythm Strip Rhythm Strip: Sinus Rhythm Rate: 80 Ectopy: None
--- NOTE | 2022-09-19 17:09 | DS.PCM_ITS ---
Providers Date of Admission: 09/11/22 Date of Discharge: 09/19/22 Primary Care Physician: Dr. Brandon Torres DO Reason For Visit: ACUTE CVA Diagnosis Discharge Diagnosis (1) Right arm weakness: Status: Resolved Code(s): R29.898 - Other symptoms and signs involving the musculoskeletal system Plan #medication overdose # RUE weakness due to embolic stroke/HTN/HLD #Cervical stenosis #COPD #Type 2 diabetes mellitus #GERD #Anxiety/depression #Osteoporosis Medications at Discharge Home Medications multivitamin 1 tab PO DAILY vitamin 12/29/17 pantoprazole 40 mg tablet,delayed release 40 mg PO BID GERD 03/29/19 amitriptyline 25 mg tablet 25 mg PO QHS mood 08/10/19 rosuvastatin 20 mg tablet (Crestor) 20 mg PO QHS cholesterol 08/25/19 sitagliptin phosphate 50 mg tablet (Januvia) 50 mg PO DAILY diabetes 09/04/19 duloxetine 60 mg capsule,delayed release 60 mg PO BID nerve pain 10/19/20 valacyclovir 500 mg tablet (Valtrex) 500 mg PO DAILY cold soars 10/19/20 tizanidine 4 mg tablet (Zanaflex) 4 mg PO Q8H PRN Muscle Spasm 01/26/21 ascorbate calcium (vitamin C) 500 mg tablet 500 mg PO DAILY vitamin 01/27/21 calcium carbonate 600 mg-vitamin D3 12.5 mcg (500 unit) capsule (Calcium 600 with Vitamin D3) 1 cap PO DAILY supplement 01/27/21 magnesium oxide 400 mg PO DAILY supplement 01/27/21 Lactobacillus rhamnosus GG 10 billion cell capsule (Culturelle) 1 cap PO DAILY 05/18/21 pregabalin 100 mg capsule 100 mg PO DAILY Nerve pain 05/18/21 carvedilol 25 mg tablet (Coreg) 25 mg PO BID BP 08/23/21 fluticasone 100 mcg-salmeterol 50 mcg/dose blistr powdr for inhalation (Advair Diskus) 1 inh inhalation BID Breathing 02/11/22 sacubitril 49 mg-valsartan 51 mg tablet (Entresto) 1 tab PO BID Heart 02/11/22 alendronate 70 mg tablet 70 mg PO TU BONES 02/13/22 cetirizine 10 mg tablet (Zyrtec) 10 mg PO DAILY ALLERGIES 02/13/22 aspirin 81 mg tablet,delayed release 81 mg PO DAILY@0800 Heart health 02/15/22 zinc 50 mg PO/SL DAILY 05/10/22 hydrocodone 7.5 mg-acetaminophen 325 mg tablet 1 - 2 tab PO Q8H PRN Pain 06/19/22 dicyclomine 20 mg tablet 20 mg PO TIDCM 09/11/22 guaifenesin 600 mg tablet, extended release 12 hr (Mucinex) 1,200 mg PO BID 09/11/22 hydralazine 25 mg tablet 25 mg PO TID bp 09/11/22 levothyroxine 112 mcg tablet 112 mcg PO DAILY 09/11/22 apixaban 5 mg tablet (Eliquis) 5 mg PO BID 30 days #60 tabs 09/18/22 Hospital Course Procedures Transesophageal Echo and - Summary of Care Provided Minutes Spent on Discharge: 40 Hospital Course: 61-year-old female with a past medical history of ACTH deficiency, COPD, carotid artery stenosis, CKD stage III, hypertension, depression, hypothyroidism, and type 2 diabetes mellitus who presented to [facility] 09/11/2022 with right arm weakness and numbness.? She was recently here for a stroke and discharged home just 2 days prior to presentation.? At that time she had been recommended to be on anticoagulation due to concern for arrhythmia but she preferred to follow-up with her primary care physician to discuss this.? CT of the brain showed new subtle area of decreased attenuation in the left posterior parietal lobe and MRI showed no acute infarct in the left anterior parietal lobe and small acute ischemic infarction in the right cerebral hemisphere suggesting embolic disease.? There is also a subacute to chronic left posterior parietal infarct.? ZAHRA performed showed no thrombus and bubble study negative.? She was taken off of aspirin and Plavix and placed on Eliquis.? Initially had been ev aluated and rehab recommended, however she was denied by insurance and appeal also denied.?It was advised that she follow with vascular surgery as was previously advised on last admission due to right internal carotid stenosis, information again provided.? On 09/18 she was evaluated in the morning and reported that physically she was doing well but was upset that she was denied for inpatient rehab by insurance. Discussed with her and she reported she understood she was going home and she was making plans to buy a chair for her house and cited her neighbors as a good support system and had home health set up. In the evening received a call that she was suddenly hypotensive and systolics consistently in the 60s and she was very tired and symptomatic. Evaluated and blood pressure remained with systolic in the 60s. Given a liter of fluid, head CT and labs unremarkable. Given bizarre and sudden presentation with hypotension and lethargy as well as her initial comments about being upset that insurance denied inpatient rehab there was suspicion there could have been a medication ingestion. Additionally when she started to wake up she reported that she did not mean to inconvenience or bother anyone but had no other concerns or questions about what happened or her hypotension or state of health. Discussed with nursing staff and [place] and Benadryl were found in a purse in her room. She did improve with supportive care and ultimately endorsed that she had intentionally taken [place] and Benadryl from her purse to escape all of this for a few minutes but reported it was not a suicide attempt. This was relayed and director drug safety ordered and crisis consult for evaluation in the a.m. 09/19 crisis spoke with her at length. Additionally I spoke with fruit harvest worker who evaluated and recommendation was for inpatient admission given her poor social support, lives alone, lack of insight into the overdose and lack of insight into the seriousness of the attempt without the ability to safety plan. When I spoke with Ms. Michaud at bedside she was very tearful and upset. She said that she did take the medication because she wanted to escape for a little while and was upset about the insurance decision. Maintained that she did not do it as a suicide attempt and that she does not want to kill herself however became very upset when discussing the consequences of what might of happened if she was at home and not in the hospital when her blood pressure was persistently systolic in the 60s. Has very poor insight into medication overdose and seriousness of the event. Attempted alternate safety planning as she was very adamant that she did not want inpatient psychiatric admission and did not feel she needed it. Unwilling/unable to stay with any friends or family and unable to have anyone to stay with her consistently including overnight at her house. Mention she had a friend that may be able to stay with her during the day, asked if she had discussed what happened with the friend and she had not. Asked if she intended to or if she was willing to and she became very upset and reiterated to that she did not want inpatient psychiatric admission. Her main concern about hospitalization was her mother and her sister finding out and concerns that they would never let her live it down. Spoke with her fruit harvest worker again at length and given her lack of insight, poor social support, inability for adequate safety plan, hopelessness, isolation, mood reactivity with very impulsive medication overdose and seriousness of attempt which may have led to if she was not monitored in the hospital, it was deemed that the safest discharge plan was to inpatient psychiatric admission. Given that she was adamant against inpatient psychiatric admission despite discussing concerns with her, pink slip filled out and placed on chart. When I went to discuss with Rose about updates she was resting comfortably, woke her up and discussed that I spoke with the fruit harvest worker again and the recommendation for inpatient admission remained the same and that we would pursue placement. She shook her head and did not speak and closed her eyes again. She has been accepted at an inpatient psychiatric facility and I do believe that she is high risk if she was discharged home from this hospital given above information. Instructions for patient as below: *Please take this with you to your next doctors appointment* ?On your last hospital discharge it was recommended you follow-up with vascular surgery as an outpatient for continued surveillance of your right internal carotid artery due to a narrowing. Information for Dr. Owen will again be provided for follow-up. ? Your only new medication is Eliquis 5 mg twice daily ?Your home venlafaxine was stopped as you are also on duloxetine and this is a dangerous combination of medication. -Please call your primary care provider's office upon discharge to schedule a hospital follow up within 1 week. -For any concerning signs or symptoms please call 911 or proceed to the nearest emergency department Physical Exam Const alert Constitutional Narrative: Appears distressed HEENT normocephalic Eyes EOMs intact bilaterally Neck supple Resp normal respiratory effort Cardio Cardio Narrative: No overt JVD appreciated GI non-distended Extremity Extremity Narrative: Limited right hand mobility which is unchanged, chronic leg deficit unchanged Skin no rashes or lesions noted Neuro Neuro Narrative: Aside from motor deficit that has not worsened no other focal neurological deficit is appreciated Psych Psych Narrative: Very tearful and upset Weight / BMI Weight Weight: 104.8 kg Body Mass Index (BMI) 42.3 ABG / Lab / Microbiology Data Result Diagrams: 09/19/22 08:25 09/19/22 08:25 Laboratory: Laboratory Results - last 24 hr 09/18/22 16:14: POC Glucose 141 H 09/18/22 17:40: Lactic Acid 1.8 09/18/22 17:40: Sodium 138, Potassium 5.1, Chloride 103, Carbon Dioxide 27.0, Anion Gap 8, BUN 35 H, Creatinine 1.59 H, Estim Creat Clear Calc 29.39, Est GFR (MDRD) Af Amer 42 L, Est GFR (MDRD) Non-Af 35 L, BUN/Creatinine Ratio 22.0 H, Glucose 125 H, Calcium 10.2 H 09/18/22 21:39: POC Glucose 71 L 09/18/22 22:41: POC Glucose 100 09/19/22 00:00: Urine Opiates Screen POSITIVE H, Urine Methadone Screen NEGATIVE, Ur Barbiturates Screen NEGATIVE, Ur Phencyclidine Scrn NEGATIVE, Ur Amphetamines Screen NEGATIVE, MDMA (Ecstasy) Screen NEGATIVE, U Benzodiazepines Scrn NEGATIVE, Urine Cocaine Screen NEGATIVE, U Cannabinoids Screen NEGATIVE, Ur Drug Screen Comment 09/19/22 00:00: Urine Color Yellow, Urine Clarity Clear, Urine pH 6.0, Ur Specific [place] 1.015, Urine Protein 15 H, Urine Glucose (UA) Normal, Urine Ketones Negative, Urine Occult Blood Negative, Urine Nitrite Negative, Urine Bilirubin Negative, Urine Urobilinogen Normal, Ur Leukocyte Esterase Negative, Urine RBC 0 SEEN, Urine WBC 0 SEEN, Ur Squamous Epith Cells 0 SEEN, Urine Bacteria 0 SEEN, Urine Mucus 0 SEEN 09/19/22 06:19: POC Glucose 123 H 09/19/22 08:25: WBC 7.5, RBC 3.48 L, Hgb 10.6 L, Hct 33.2 L, MCV 95.4, MCH 30.5, MCHC 31.9 L, RDW Std Deviation 49.7 H, RDW Coeff of [place] 14.3, Plt Count 206, MPV 10.1, Immature Gran % (Auto) 0.400, Neut % (Auto) 58.0, Lymph % (Auto) 29.3, Shannon % (Auto) 8.3, Eos % (Auto) 3.2, Baso % (Auto) 0.8, Absolute Neuts (auto) 4.3, Absolute Lymphs (auto) 2.18, Nucleated RBC % 0 11/15/22 08:25: Sodium 137, Potassium 4.7, Chloride 106, Carbon Dioxide 24.0, Anion Gap 7, BUN 32 H, Creatinine 1.10 H, Estim Creat Clear Calc 42.48, Est GFR (MDRD) Af Amer 65, Est GFR (MDRD) Non-Af 54 L, BUN/Creatinine Ratio 29.1 H, Glucose 132 H, Calcium 9.7, Total Bilirubin 0.30, AST 27, ALT 29, Alkaline Phosphatase 65, Total Protein 7.7, Albumin 3.9, Globulin 3.8, Albumin/Globulin Ratio 1.0 09/19/22 11:21: POC Glucose 145 H Microbiology: Microbiology 09/13/22 05:45 Nasal Secretion SARS-CoV-2 Antigen (Rapid) - Final ABG: ABG 09/18/22 17:04 Specimen Type ART Sample Site R Radial pH 7.30 L Bicarbonate Actual 23.2 Total CO2 25 Base Excess -3 L O2 Saturation 93 L O2 % 21 ABG pCO2 47.8 H ABG pO2 75 Juan Test Positive O2 Delivery Device Room Air Radiography Diagnostic Testing: Radiology Impression Brain CT 09/18/22 16:40 IMPRESSION: Stable left parietal lobe infarct without other interval change. Electronically Signed: Rolando Argueta DO at 17:48 EST Reading Location ID and State: [address] [place] [address] Tel [phone], Service support , D/C Instructions Discharge Diet: No restrictions Meaningful Use Info Meaningful Use Diagnoses (Choose all that apply): None applicable CVA Therapy Assessed for PT,OT and/or ST?: Yes Discharge Plan Admission Admit Date/Time: 09/11/22 11:12 Primary Reason for Your Visit: Stroke Attending Provider: Mireya Viramontes Primary Care Provider: Brandon Torres Consulting Providers: Nichol Draper ; Markie Blackman Instructions Patient Instructions: Stroke Regaining Movement, Stroke Self Care After, Stroke Prevention Eating Healthy, Booklet - Understanding Stroke Additional Instructions / Restrictions: *Please take this with you to your next doctors appointment* ?On your last hospital discharge it was recommended you follow-up with vascular surgery as an outpatient for continued surveillance of your right internal carotid artery due to a narrowing. Information for Dr. Owen will again be provided for follow-up. ? Your only new medication is Eliquis 5 mg twice daily ?Your home venlafaxine was stopped as you are also on duloxetine and this is a dangerous combination of medication. -Please call your primary care provider's office upon discharge to schedule a hospital follow up within 1 week. -For any concerning signs or symptoms please call 911 or proceed to the nearest emergency department Discharge Orders/Prescriptions Prescriptions: New Eliquis 5 mg Tablet 5 mg PO BID 30 Days Qty: 60 0RF Continued Januvia 50 mg tablet 50 mg PO DAILY rosuvastatin [Crestor] 20 mg tablet 20 mg PO QHS calcium carbonate-vitamin D3 [Calcium 600 with Vitamin D3] 600 mg(1,500mg) - 500 unit capsule 1 cap PO DAILY magnesium oxide 400 mg magnesium capsule 400 mg PO DAILY ascorbate calcium (vitamin C) 500 mg tablet 500 mg PO DAILY tizanidine [Zanaflex] 4 mg tablet 4 mg PO Q8H PRN (Reason: Muscle Spasm) Culturelle 10 billion cell capsule 1 cap PO DAILY pregabalin 100 mg capsule 100 mg PO DAILY hydrocodone-acetaminophen 7.5-325 mg tablet 1 - 2 tab PO Q8H PRN (Reason: Pain) multivitamin 1 EACH tablet 1 tab PO DAILY Label Comments: vitamin pantoprazole 40 MG tablet 40 mg PO BID Label Comments: GERD amitriptyline 25 MG tablet 25 mg PO QHS duloxetine 60 MG capsule 60 mg PO BID valacyclovir [Valtrex] 500 MG tablet 500 mg PO DAILY zinc 50 mg capsule 50 mg PO/SL DAILY fluticasone propion-salmeterol [Advair Diskus] 100-50 mcg/dose Blister With Device 1 inh INHALATION BID Entresto 49-51 mg Tablet 1 tab PO BID cetirizine [Zyrtec] 10 mg Tablet 10 mg PO DAILY alendronate 70 MG tablet 70 mg PO Rx Instructions: takes on tuesdays aspirin 81 MG tablet,delayed release (DR/EC) 81 mg PO DAILY@0800 dicyclomine 20 mg Tablet 20 mg PO TIDCM levothyroxine 112 mcg Tablet 112 mcg PO DAILY hydralazine 25 mg Tablet 25 mg PO TID guaifenesin [Mucinex] 600 mg Tablet Extended Release 12hr 1,200 mg PO BID carvedilol [Coreg] 25 mg tablet 25 mg PO BID Rx Instructions: must administer with a meal/food Discontinued venlafaxine 75 MG tablet 150 mg PO QHS Rx Instructions: 1 tab in morning and 2 tabs at HS Referrals / Follow Up: Alfa Owen MD [Med Staff - Active Staff] - 09/26/22 11:00 am (Follow-up with vascular surgery upon discharge for routine surveillance of a narrowing in your right internal carotid artery) Donna Flores NP, PEN TENDER-C [Non-Staff] - 09/25/22 12:00 pm Disposition Disposition (needs filled in before D/C Order can be placed): Psychiatric Hospital or Unit Charges/Coding Visit Charges Inpatient E&M: 47306 Disch Hosp
--- NOTE | 2022-09-19 19:47 | NURSING ---
Update provided to intake at [facility], pt will be transported to facility in AM. pt is aware of Am transfer, sitter remains at bedside.
--- NOTE | 2022-09-19 20:51 | NURSING ---
This RN spoke with Mello from [facility], provided update about pt delayed in transport until tomorrow morning at 0800 and Mello confirmed pt can be accepted at that time. Will update primary RN.
[2022-09-19] MEDS: Menthol/Lanolin/Calamine/Znox 113 GM Tube 1 APPLIC TOPICAL (21:20)
[2022-09-19] MEDS: Atorvastatin Calcium 40 MG Tablet PO (21:21)
[2022-09-19] MEDS: Carvedilol 25 MG Tablet PO (21:35)
[2022-09-19] MEDS: Amitriptyline 25 MG Tablet PO (21:35)
[2022-09-19 21:51] LABS: Bedside Glucose 96 mg/dL (74-106)
[2022-09-19 21:51] LABS: Bedside Glucose 104 mg/dL (74-106)
[2022-09-19] MEDS: 0.9% Saline Lock 10 ML Syringe IV (23:27)
[2022-09-20 03:00] VITALS: PULSE 99
--- NOTE | 2022-09-20 05:09 | NURSING ---
physician ambulance was called to verify transport for 0800. On time to pick up operator pt at 0800.
[2022-09-20 05:45] VITALS: BP 107/70; PULSE 74; RESP 18; TEMP 36.3; O2SAT 97
[2022-09-20] MEDS: Levothyroxine 112 MCG Tablet PO (05:49)
[2022-09-20] MEDS: Nystatin Powder 15gm Bottle 1 APPLIC TOPICAL (05:49)
[2022-09-20 06:20] LABS: Bedside Glucose 154 mg/dL (74-106)
[2022-09-20 07:00] VITALS: PULSE 95
--- NOTE | 2022-09-20 07:00 | NURSING ---
Report called to Carmina ERICKSON, at [facility]. questions answered at this time. Pt via [facility] ambulance to facility at 8 am.
--- NOTE | 2022-09-20 09:34 | CASEMGMT ---
[facility] called Ceci CISNEROS and canceled referral. Plan: d/c to [facility] Zulema GONGORA
--- NOTE | 2022-09-20 09:38 | PN.HOSP_ITS ---
Hospitalist Note Unable to transport to [facility] until this a.m. so Ms. Michaud stayed overnight. Transported to psychiatric unit this a.m.
--- NOTE | 2022-09-20 09:38 | PCM.HOSP.N ---
Hospitalist Note Unable to transport to [facility] until this a.m. so Ms. Michaud stayed overnight. Transported to psychiatric unit this a.m.
== END 2022-09-20 09:30 | DRG 65 ==
LOC: ED 10:58 → PCU 12:26
PROVIDERS: Family Medicine; Admitting Provider Student in an Organized Health Care Education/Training Program; Emergency Provider Emergency Medicine; PCP Student in an Organized Health Care Education/Training Program; Visit Provider Internal Medicine
DX: I63.40 Cerebral infarction due to embolism of unspecified cerebral artery (principal); I13.0 Hypertensive heart and chronic kidney disease with heart failure and stage 1 through stage 4 chronic kidney disease, or unspecified chronic kidney disease; I50.22 Chronic systolic (congestive) heart failure; I42.8 Other cardiomyopathies; I69.351 Hemiplegia and hemiparesis following cerebral infarction affecting right dominant side; E11.22 Type 2 diabetes mellitus with diabetic chronic kidney disease; N18.30 Chronic kidney disease, stage 3 unspecified; E11.40 Type 2 diabetes mellitus with diabetic neuropathy, unspecified; E11.51 Type 2 diabetes mellitus with diabetic peripheral angiopathy without gangrene; J44.9 Chronic obstructive pulmonary disease, unspecified; G83.21 Monoplegia of upper limb affecting right dominant side; T40.2X1A Poisoning by other opioids, accidental (unintentional), initial encounter; I65.21 Occlusion and stenosis of right carotid artery; M48.02 Spinal stenosis, cervical region; E78.5 Hyperlipidemia, unspecified; I25.10 Atherosclerotic heart disease of native coronary artery without angina pectoris; K21.9 Gastro-esophageal reflux disease without esophagitis; I95.2 Hypotension due to drugs; F41.9 Anxiety disorder, unspecified; R29.705 NIHSS score 5; T39.1X1A Poisoning by 4-Aminophenol derivatives, accidental (unintentional), initial encounter; T45.0X1A Poisoning by antiallergic and antiemetic drugs, accidental (unintentional), initial encounter; Y92.230 Patient room in hospital as the place of occurrence of the external cause; F32.A Depression, unspecified; M81.0 Age-related osteoporosis without current pathological fracture; Z20.822 Contact with and (suspected) exposure to COVID-19; Z91.81 History of falling; Z79.83 Long term (current) use of bisphosphonates; Z79.82 Long term (current) use of aspirin; Z60.2 Problems related to living alone; Z87.891 Personal history of nicotine dependence; Z96.653 Presence of artificial knee joint, bilateral
CPT/HCPCS: 36415; 36600; 70450; 70551; 80048; 80053; 80061; 80307; 81001; 82803; 82962; 83605; 83880; 84484; 85025; 87040; 87426; 92610; 93005; 93312; 93320; 93325; 93880; 94640; 94762; 97110; 97116; 97162; 97166; 97530; 97535; 99285; J7030; J7040; J7050; A4216; J2916

== ENCOUNTER 2023-05-28 19:35 | Inpatient (IN) | payer MEDICARE, MEDICAID, SELFPAY ==
[2023-05-28] VITALS (7 sets, daily range): BP systolic 83–141; BP diastolic 47–67; PULSE 84–90; RESP 16–25; TEMP 35.7–36.4; O2SAT 91–94; BMI 41.5; BMI 36.7
--- NOTE | 2023-05-28 19:52 | EKG12_ITS ---
Test Reason : DYSRHYTHMIA Blood Pressure : / mmHG Vent. Rate : 086 BPM Atrial Rate : 086 BPM P-R Int : 174 ms QRS Dur : 102 ms QT Int : 388 ms P-R-T Axes : 049 017 018 degrees QTc Int : 464 ms Normal sinus rhythm Normal ECG Confirmed by PETRONA CASTRO, LUIS FERNANDO ([id number]), editor greeting card ANASTASIA HENSON ([id number]) on 05/30/2023 9:28:15 AM Referred By: [facility] Confirmed By:LUIS FERNANDO RUSS MD
--- NOTE | 2023-05-28 19:53 | ED.VIS.DYS ---
HPI History of Present Illness Chief Complaint: Shortness of Breath Detail of Chief Complaint: Shortness of breath Informant: patient Narrative Narrative: Patient presents with complaint of shortness of breath that is been ongoing for years but feels like its been worse over the last 3 to 4 days. Patient feels like her head is in the clouds and she has had some confusion and forgetfulness. She fell 3 times after losing her balance last week but did not hit her head. She is on Eliquis for history of prior strokes. She denies weight gain. She had no fever. She has a history of a chronic cough. [facility] Medical History ACTH deficiency Acute respiratory failure with hypoxia Allergic rhinitis Anemia Asthma Asthma exacerbation Atherosclerosis of coronary artery without angina pectoris Bilateral leg weakness Bone fracture Cardiomyopathy Carotid artery stenosis Carpal tunnel syndrome Chronic constipation with suspected IBS Chronic headaches Chronic systolic (congestive) heart failure CKD (chronic kidney disease) stage 3, GFR 30-59 ml/min Debility Embolic stroke Essential hypertension Falls Flash pulmonary edema (01/16/21) Gait difficulty Gallstones GERD (gastroesophageal reflux disease) GI problem Herpes simplex History of Clostridium difficile infection History of CVA (cerebrovascular accident) (2018) History of depression History of emotional problems History of ischemic colitis Hx of diverticulitis of colon Hyperlipidemia Hypertension Hypotension Hypothyroidism Irritable bowel syndrome Kidney disease Neuropathy Non-ischemic cardiomyopathy Normochromic normocytic anemia Normocytic anemia Obesity Osteoarthritis Osteopenia Osteoporosis Peripheral vascular disease Pulmonary edema Right hemiparesis Seasonal allergies Secondary adrenal insufficiency Stomach ulcer Stroke/cerebrovascular accident Trigeminal trophic syndrome Type 2 diabetes mellitus Home Medications multivitamin 1 tab PO DAILY vitamin 12/29/17 [History Last Taken 09/10/22] pantoprazole 40 mg tablet,delayed release 40 mg PO BID GERD 03/29/19 [History Last Taken 09/10/22] amitriptyline 25 mg tablet 25 mg PO QHS mood 08/10/19 [History Last Taken 09/10/22] rosuvastatin 20 mg tablet (Crestor) 20 mg PO QHS cholesterol 08/25/19 [History Last Taken 09/10/22] sitagliptin phosphate 50 mg tablet (Januvia) 50 mg PO DAILY diabetes 09/04/19 [History Last Taken 09/10/22] duloxetine 60 mg capsule,delayed release 60 mg PO BID nerve pain 10/19/20 [History Last Taken 09/10/22] valacyclovir 500 mg tablet (Valtrex) 500 mg PO DAILY cold soars 10/19/20 [History Last Taken 09/10/22] tizanidine 4 mg tablet (Zanaflex) 4 mg PO Q8H PRN Muscle Spasm 01/26/21 [History Last Taken 09/10/22] ascorbate calcium (vitamin C) 500 mg tablet 500 mg PO DAILY vitamin 01/27/21 [History Last Taken 09/10/22] calcium carbonate 600 mg-vitamin D3 12.5 mcg (500 unit) capsule (Calcium 600 with Vitamin D3) 1 cap PO DAILY supplement 01/27/21 [History Last Taken 09/10/22] magnesium oxide 400 mg PO DAILY supplement 01/27/21 [History Last Taken 09/10/22] Lactobacillus rhamnosus GG 10 billion cell capsule (Culturelle) 1 cap PO DAILY 05/18/21 [History Last Taken 09/10/22] pregabalin 100 mg capsule 100 mg PO DAILY Nerve pain 05/18/21 [History Last Taken 09/10/22] carvedilol 25 mg tablet (Coreg) 25 mg PO BID BP 08/23/21 [History Last Taken 09/10/22] fluticasone 100 mcg-salmeterol 50 mcg/dose blistr powdr for inhalation (Advair Diskus) 1 inh inhalation BID Breathing 02/11/22 [History Last Taken 09/10/22] sacubitril 49 mg-valsartan 51 mg tablet (Entresto) 1 tab PO BID Heart 02/11/22 [History Last Taken 09/10/22] alendronate 70 mg tablet 70 mg PO TU BONES 02/13/22 [History Last Taken 09/05/22] cetirizine 10 mg tablet (Zyrtec) 10 mg PO DAILY ALLERGIES 02/13/22 [History Last Taken 09/10/22] aspirin 81 mg tablet,delayed release 81 mg PO DAILY@0800 Heart health 02/15/22 [History Last Taken 09/10/22] zinc 50 mg PO/SL DAILY 05/10/22 [History Last Taken 09/10/22] hydrocodone 7.5 mg-acetaminophen 325 mg tablet 1 - 2 tab PO Q8H PRN Pain 06/19/22 [History Last Taken 09/10/22] dicyclomine 20 mg tablet 20 mg PO TIDCM 09/11/22 [History Last Taken 09/10/22] guaifenesin 600 mg tablet, extended release 12 hr (Mucinex) 1,200 mg PO BID 09/11/22 [History Last Taken 09/10/22] levothyroxine 112 mcg tablet 112 mcg PO DAILY 09/11/22 [History Last Taken 09/10/22] apixaban 5 mg tablet (Eliquis) 5 mg PO BID 30 days #60 tabs 09/18/22 [Rx Last Taken Unknown] hydralazine 25 mg tablet 25 mg PO BID #180 TABLETS 05/14/23 [Rx Last Taken Unknown] benzonatate 100 mg capsule mg PO 05/28/23 [History Last Taken Unknown] venlafaxine 75 mg tablet mg 05/28/23 [History Last Taken Unknown] Allergy/AdvReac Type Severity Reaction Status Date / Time adhesive Allergy skin Verified 05/28/23 19:41 irritation amlodipine [From Norvasc] Allergy tachycardia Verified 05/28/23 19:41 hydromorphone HCl Allergy Itching Verified 05/28/23 19:41 [From Dilaudid] sulfamethoxazole Allergy made my Verified 05/28/23 19:41 [From Bactrim] cold sore huge trimethoprim [From Bactrim] Allergy made my Verified 05/28/23 19:41 cold sore huge Family History Grandfather Alcoholism Grandmother Myocardial infarction Mother Arthritis Diverticulitis COPD (chronic obstructive pulmonary disease) Afib Thyroid disorder Father Arthritis Diabetes Myocardial infarction Heart disease Ischemic Hypertension Hyperlipidemia Brother Arthritis Aunt Breast cancer Sister Arthritis Thyroid disorder Skin cancer Uncle Diabetes Surgical History Ankle fracture Fracture of left femur History of angioplasty of peripheral vessel (2010) History of arthroscopic knee surgery History of back surgery History of bilateral knee replacement History of carpal tunnel release History of cholecystectomy History of intestine removal History of left heart catheterization (2011) History of tonsillectomy and adenoidectomy History of trigger finger History of ventral hernia repair Strangulated ventral hernia Social History household members: none Smoking Status: Former smoker how long ago did patient quit smokin alcohol intake: never substance use type: does not use what type of physical activity do you participate in: other ROS ROS ED Review of Systems ROS Unobtainable: other Constitutional Constitutional ED: Reports lethargy; Denies chills, fever(s), sweats or weight loss Eyes Eyes: Denies blurry vision, change in vision or diplopia ENT ENT ED: Denies rhinorrhea or sore throat Cardiovascular Cardiovascular: Denies chest pain, orthopnea or racing heartbeat Respiratory/Chest Respiratory/Chest: Reports cough, dyspnea and dyspnea on exertion; Denies orthopnea or sputum Gastrointestinal Gastrointestinal: Denies abdominal pain, diarrhea, nausea or vomiting Genitourinary Genitourinary ED: Denies dysuria, hematuria or urinary frequency Musculoskeletal Musculoskeletal: Denies arthralgias, back pain, myalgias or neck pain Integumentary Denies abscess, Abrasions or rash Neurologic Neurologic: Denies headache(s) or weakness Psychiatric Psychiatric: Denies anxiety, depression or suicidal thoughts Endocrine Endocrinology: Denies polydipsia, polyphagia or polyuria Hematologic/Lymphatic Hematologic/Lymphatic: Denies easy bleeding, easy bruising or lymphadenopathy Allergic/Immunologic Allergic/Immunologic ED: Denies mouth swelling, tongue swelling or urticaria EXAM Physical Exam Const Vital Signs: 05/28/23 19:36 05/28/23 19:39 05/28/23 19:39 Temperature 96.3 F L 96.3 F L Temperature Source Temporal Temporal Pulse Rate 90 88 Respiratory Rate 22 H 16 Respiratory Effort Normal Respiratory Depth Normal Respiratory Pattern Normal Blood Pressure 83/54 L Blood Pressure Mean 63 Pulse Ox 92 93 Oxygen Delivery Method Room Air Room Air 05/28/23 20:54 05/28/23 21:08 05/28/23 21:47 Temperature 97.6 F L Temperature Source Temporal Pulse Rate 85 86 84 Respiratory Rate 18 25 H 18 Respiratory Effort Respiratory Depth Respiratory Pattern Blood Pressure 91/47 L 98/56 L 100/56 L Blood Pressure Mean 61 70 70 Pulse Ox 93 91 Oxygen Delivery Method Room Air Room Air Positive well nourished and well developed General Appearance ED: well developed and NAD HEENT Reports TM's clear and moist mucous membranes normocephalic and atraumatic; Negative for trauma or tenderness Tympanic Membrane ED: Yes TM's clear Eyes PERRL and EOMs intact bilaterally General Eye ED: Negative for pale conjunctiva or scleral icterus Neck no lymphadenopathy, supple and no JVD General: Negative for tenderness Chest Wall inspection of chest normal and palpation of chest normal Chest: Negative for tenderness Resp normal respiratory effort and clear to auscultation bilaterally Effort and Inspection: Negative for respiratory distress or pain with movement Auscultation: Negative for rhonchi, wheezes or diminished lung sounds Cardio regular rate, regular rhythm, S1 normal heart sound, S2 normal heart sound and no murmurs Peripheral Pulses: pulses 2+ throughout GI normal to inspection, nondistended, normoactive bowel sounds, soft to palpation, non-tender, non-distended and no masses Back/Spine no CVA tenderness and no thoracic nor lumbar tenderness Extremity normal to inspection General Extremety ED: Negative for edema General Extremity: Negative for edema Neuro oriented x3, CN's II-XII intact bilaterally, no sensory deficits noted and gait normal Sensorium / Orientation: awake, alert, oriented to person, oriented to place and oriented to time Motor Exam: strength 5/5 throughout and strength abnormal Psych mental status grossly normal Skin no rashes or lesions noted and no wounds MDM MDM MDM Narrative Medical decision making narrative: Patient presents with complaint of dyspnea that is been chronic. She complains of some confusion and disorientation and forgetfulness. Patient also complains of some dysuria for several days. In the differential would be infectious etiology such as pneumonia or CHF or acute coronary syndrome. UTI would be in the differential given her symptoms of dysuria. Anemia would be in the differential. IV line established. Patient placed on quality assurance monitor chassis. EKG obtained showed a sinus rhythm with a rate of 86 bpm with no acute ST segment changes. CBC with differential, 9.0 with a hemoglobin of 8.1 and platelet count of 182. Chemistries unremarkable. Troponin was normal at 5. BNP was slightly elevated 139 and urine Alysis positive for UTI. Patient received 500 cc fluid bolus and her blood pressure improved into the 115 systolic range. Patient was started on Rocephin 1 g IV. I ordered urine culture as well as blood cultures and a lactate level which are pending. 1 view chest x-ray obtained showed chronic changes with increased markings in the right upper lobe which are chronic. Case discussed with hospitalist will evaluate patient for admission. Lab Data Labs: Laboratory Results - last 24 hr 05/28/23 05/28/2323 19:50 20:22 21:36 WBC 9.0 RBC 2.60 L Hgb 8.1 L Hct 25.8 L MCV 99.2 H MCH 31.2 MCHC 31.4 L RDW Std Deviation 55.3 H RDW Coeff of Lencho 15.1 H Plt Count 182 MPV 9.9 Immature Gran % (Auto) 0.700 Neut % (Auto) 77.7 H Lymph % (Auto) 14.7 L Mitchell % (Auto) 5.6 Eos % (Auto) 1.0 Baso % (Auto) 0.3 Absolute Neuts (auto) 7.0 Absolute Lymphs (auto) 1.32 Nucleated RBC % 0 Sodium 136 Potassium 4.3 Chloride 110 H Carbon Dioxide 20.0 L Anion Gap 6 BUN 22 H Creatinine 1.53 H Estim Creat Clear Calc 30.15 Est GFR (MDRD) Af Amer 44 L Est GFR (MDRD) Non-Af 37 L BUN/Creatinine Ratio 14.4 Glucose 112 H Lactic Acid 0.7 Calcium 8.7 Troponin I High Sens 5 B-Natriuretic Peptide 139.0 H Urine Color Yellow Urine Clarity Sl. Cloudy Urine pH 6.5 Ur Specific [place] 1.010 Urine Protein 30 H Urine Glucose (UA) Normal Urine Ketones Negative Urine Occult Blood 10 H Urine Nitrite Positive H Urine Bilirubin Negative Urine Urobilinogen Normal Ur Leukocyte Esterase 500 H Urine RBC 0 SEEN Urine WBC 50-100 SEEN Ur Squamous Epith Cells 0-5 SEEN Urine Bacteria RARE Urine Mucus 0 SEEN Radiography Diagnostic Testing: Clinical Impression(s) from Imaging Studies Brain CT 05/28/23 19:54 IMPRESSION: Mild atrophy and periventricular white matter disease. No acute bleed. If concern for acute infarct MRI recommended.. Electronically Signed: Nilay London MD at 20:40 EDT , Chest X-Ray 05/28/23 20:28 IMPRESSION: Partial collapse of right upper lobe.. Electronically Signed: Nilay London MD at 20:42 EDT , 1 view chest x-ray obtained interpreted by myself as increased markings right upper lobe appear to be chronic. Radiology felt there was partial collapse of the right upper lobe. There is no evidence of pneumothorax or infiltrate or other acute disease process. EKG Initial EKG: Attestation: I personally reviewed and interpreted this EKG as follows: Comments: Sinus rhythm with a rate of 86 bpm with no acute ST segment changes Discharge Plan Dx/Rx/DC Orders Clinical Impression: UTI (urinary tract infection), Transient hypotension, Acute dyspnea, Acute confusion Disposition Disposition: Acute Care Hospital [facility]
--- NOTE | 2023-05-28 19:54 | CT_ITS ---
STUDY: CT BRAIN WITHOUT CONTRAST REASON FOR EXAM: Female, 62 years old. confusion RADIATION DOSAGE (If Supplied By Facility): CTDIvol = ( 44.99 ) mGy, DLP = ( 796.11 ) mGycm TECHNIQUE: Transaxial CT imaging of the brain was performed without administration of intravenous contrast material. Individualized dose optimization techniques were used for this CT. COMPARISON: September 18, 2022. FINDINGS: Normal soft tissue structures. Normal calvarium. Calcific plaquing of the cavernous carotids. Mild cortical atrophy and periventricular white matter disease.. Normal basal ganglia and thalami. Normal brainstem. Normal cerebellum. There is no intracranial hemorrhage. There are no findings of an acute ischemic infarction. Moderate mucosal thickening in the sphenoid sinus CT/Brain/Head without Contrast IMPRESSION: Mild atrophy and periventricular white matter disease. No acute bleed. If concern for acute infarct MRI recommended.. Electronically Signed: Nilay London MD at 20:40 EDT ,
[2023-05-28 20:02] LABS: Absolute Lymphocyte Count 1.32 X10^3/uL (0.83-4.51); Basophil# 0.03 X10^3/uL; Basophil% 0.3 % (0-1); Eosinophil# 0.09 X10^3/uL; Hematocrit 25.8 % (37-47); Hemoglobin 8.1 g/dL (12.0-15.0); Lymphocyte # 1.32 X10^3/ul (0.83-4.51); Lymphocyte % 14.7 % (19-41); Mean Corp Hgb Conc 31.4 g/dL (32-36); Mean Corpuscular Hgb 31.2 pg (27.0-32.0); Mean Corpuscular Volume 99.2 fL (81-99); Mean Platelet Vol. 9.9 fl (6.2-12.0); Monocyte% 5.6 % (0-10); NRBC Flagged by Analyzer 0 % (0-5); Neutrophil # 6.97 X10^3/uL (2.7-7.7); Neutrophil % 77.7 % (47-70); Platelet Count 182 K/mm3 (150-450); RBC Distribution Width CV 15.1 % (11.6-14.6); RBC Distribution Width SD 55.3 fl (35.1-43.9)
[2023-05-28 20:24] LABS: Anion Gap 6 (5-15); BUN 22 mg/dL (7-18); BUN/Creat Ratio 14.4 RATIO (10-20); Calcium,Total 8.7 mg/dL (8.5-10.1); Chloride 110 mmol/L (98-107); Creatinine, Serum 1.53 mg/dL (0.55-1.02); EST Glomerular Filtration Rate 37 mL/min (>60); Est Glom Filt Rate - Afr Amer 44 mL/min (>60); Estimated Creatinine Clearance 30.15 ml/min; Glucose 112 mg/dL (74-106); Potassium 4.3 mmol/L (3.5-5.1); Sodium Level 136 mmol/L (136-145); Troponin-I HS 5 pg/mL (3.0-54.0)
[2023-05-28 20:26] LABS: Mucous, Urine 0 SEEN /hpf (<or=2+); Red Blood Cells-Urine 0 SEEN /hpf (0-5)
--- NOTE | 2023-05-28 20:28 | RAD_ITS ---
STUDY: X-RAY CHEST REASON FOR EXAM: Female, 62 years old. dyspnea TECHNIQUE: AP portable COMPARISON: September 08, 2022 FINDINGS: Partial collapse of the right upper lobe.. There is no demonstrated pleural abnormality. Normal size heart. Normal mediastinum and jonathan. Normal visualized pulmonary arteries. Normal visualized aortic arch and descending thoracic aorta. Dorsal spine demonstrates degenerative change. Normal visualized ribs, clavicles, and shoulders. There is no demonstrated abnormality of the visualized soft tissue structures of the upper abdomen. No significant change since prior study RAD/Chest 1 View (Portable) IMPRESSION: Partial collapse of right upper lobe.. Electronically Signed: Nilay London MD at 20:42 EDT ,
[2023-05-28 20:29] LABS: Color, Urine Yellow (Yellow); Glucose, Dipstick Normal (Normal); Ketone-Dipstick Negative (Negative); Leukocyte Esterase-Dipstick 500 /ul (Negative); Nitrite-Dipstick Positive (Negative); Occult Blood-Urine 10 /ul (Negative); Protein-Dipstick 30 mg/dl (Negative); Urine Bilirubin Dipstick Negative (Negative); Urine Clarity Sl. Cloudy (Clear); Urine Urobilinogen Normal (Normal); Urine pH 6.5 (5.0 - 8.0)
[2023-05-28 20:35] LABS: Bacteria RARE /hpf (None Seen); Squamous Epithelial Cells - UA 0-5 SEEN /hpf (5-10); White Blood Cells 50-100 SEEN /hpf (0-5)
[2023-05-28] MEDS: 0.9% Normal Saline 1,000 ML 150 ML IV (21:08)
[2023-05-28] MEDS: Ceftriaxone 1 GM/50 ML BAG IV (21:55)
[2023-05-28 22:11] LABS: Lactic Acid 0.7 mmol/L (0.4-1.9)
--- NOTE | 2023-05-28 22:12 | PCM.HP.STD ---
HPI - General General Date of Admission: 05/28/23 Date of Service: 05/28/23 Chief Complaint: Shortness of breath, generalized weakness HPI Narrative BILL CHOI, is a 62 F who presents to the emergency room with chief complaint of shortness of breath and generalized fatigue. Patient has significant past medical history of pneumonia with residual scarring and partial lung collapse in the right upper lobe who presents to the emergency room with 2 days of worsening shortness of breath and weakness. Upon further questioning patient also admits to having dysuria for 2 days as well. Patient denies any chest pain but does have shortness of breath, negative for nausea or vomiting and/or fevers and chills. Urinalysis is positive for urinary tract infection, chest x-ray is unremarkable for acute findings and blood work is remarkable for chronic anemia with hemoglobin in the 8 range. Due to numerous comorbidities patient will be admitted to [facility] care and treated for UTI. [facility] Medical History ACTH deficiency Acute respiratory failure with hypoxia Allergic rhinitis Anemia Asthma Asthma exacerbation Atherosclerosis of coronary artery without angina pectoris Bilateral leg weakness Bone fracture Cardiomyopathy Carotid artery stenosis Carpal tunnel syndrome Chronic constipation with suspected IBS Chronic headaches Chronic systolic (congestive) heart failure CKD (chronic kidney disease) stage 3, GFR 30-59 ml/min Debility Embolic stroke Essential hypertension Falls Flash pulmonary edema (01/16/21) Gait difficulty Gallstones GERD (gastroesophageal reflux disease) GI problem Herpes simplex History of Clostridium difficile infection History of CVA (cerebrovascular accident) (2018) History of depression History of emotional problems History of ischemic colitis Hx of diverticulitis of colon Hyperlipidemia Hypertension Hypotension Hypothyroidism Irritable bowel syndrome Kidney disease Neuropathy Non-ischemic cardiomyopathy Normochromic normocytic anemia Normocytic anemia Obesity Osteoarthritis Osteopenia Osteoporosis Peripheral vascular disease Pulmonary edema Right hemiparesis Seasonal allergies Secondary adrenal insufficiency Stomach ulcer Stroke/cerebrovascular accident Trigeminal trophic syndrome Type 2 diabetes mellitus Home Medications multivitamin 1 tab PO DAILY vitamin 12/29/17 [History Last Taken 09/10/22] pantoprazole 40 mg tablet,delayed release 40 mg PO BID GERD 03/29/19 [History Last Taken 09/10/22] amitriptyline 25 mg tablet 25 mg PO QHS mood 08/10/19 [History Last Taken 09/10/22] rosuvastatin 20 mg tablet (Crestor) 20 mg PO QHS cholesterol 08/25/19 [History Last Taken 09/10/22] sitagliptin phosphate 50 mg tablet (Januvia) 50 mg PO DAILY diabetes 09/04/19 [History Last Taken 09/10/22] duloxetine 60 mg capsule,delayed release 60 mg PO BID nerve pain 10/19/20 [History Last Taken 09/10/22] valacyclovir 500 mg tablet (Valtrex) 500 mg PO DAILY cold soars 10/19/20 [History Last Taken 09/10/22] tizanidine 4 mg tablet (Zanaflex) 4 mg PO Q8H PRN Muscle Spasm 01/26/21 [History Last Taken 09/10/22] ascorbate calcium (vitamin C) 500 mg tablet 500 mg PO DAILY vitamin 01/27/21 [History Last Taken 09/10/22] calcium carbonate 600 mg-vitamin D3 12.5 mcg (500 unit) capsule (Calcium 600 with Vitamin D3) 1 cap PO DAILY supplement 01/27/21 [History Last Taken 09/10/22] magnesium oxide 400 mg PO DAILY supplement 01/27/21 [History Last Taken 09/10/22] Lactobacillus rhamnosus GG 10 billion cell capsule (Culturelle) 1 cap PO DAILY 05/18/21 [History Last Taken 09/10/22] pregabalin 100 mg capsule 100 mg PO DAILY Nerve pain 05/18/21 [History Last Taken 09/10/22] carvedilol 25 mg tablet (Coreg) 25 mg PO BID BP 08/23/21 [History Last Taken 09/10/22] fluticasone 100 mcg-salmeterol 50 mcg/dose blistr powdr for inhalation (Advair Diskus) 1 inh inhalation BID Breathing 02/11/22 [History Last Taken 09/10/22] sacubitril 49 mg-valsartan 51 mg tablet (Entresto) 1 tab PO BID Heart 02/11/22 [History Last Taken 09/10/22] alendronate 70 mg tablet 70 mg PO TU BONES 02/13/22 [History Last Taken 09/05/22] cetirizine 10 mg tablet (Zyrtec) 10 mg PO DAILY ALLERGIES 02/13/22 [History Last Taken 09/10/22] aspirin 81 mg tablet,delayed release 81 mg PO DAILY@0800 Heart health 02/15/22 [History Last Taken 09/10/22] zinc 50 mg PO/SL DAILY 05/10/22 [History Last Taken 09/10/22] hydrocodone 7.5 mg-acetaminophen 325 mg tablet 1 - 2 tab PO Q8H PRN Pain 06/19/22 [History Last Taken 09/10/22] dicyclomine 20 mg tablet 20 mg PO TIDCM 09/11/22 [History Last Taken 09/10/22] guaifenesin 600 mg tablet, extended release 12 hr (Mucinex) 1,200 mg PO BID 09/11/22 [History Last Taken 09/10/22] levothyroxine 112 mcg tablet 112 mcg PO DAILY 09/11/22 [History Last Taken 09/10/22] apixaban 5 mg tablet (Eliquis) 5 mg PO BID 30 days #60 tabs 09/18/22 [Rx Last Taken Unknown] hydralazine 25 mg tablet 25 mg PO BID #180 TABLETS 05/14/23 [Rx Last Taken Unknown] benzonatate 100 mg capsule mg PO 05/28/23 [History Last Taken Unknown] venlafaxine 75 mg tablet mg 05/28/23 [History Last Taken Unknown] Allergy/AdvReac Type Severity Reaction Status Date / Time adhesive Allergy skin Verified 05/28/23 19:41 irritation amlodipine [From Norvasc] Allergy tachycardia Verified 05/28/23 19:41 hydromorphone HCl Allergy Itching Verified 05/28/23 19:41 [From Dilaudid] sulfamethoxazole Allergy made my Verified 05/28/23 19:41 [From Bactrim] cold sore huge trimethoprim [From Bactrim] Allergy made my Verified 05/28/23 19:41 cold sore huge Family History Grandfather Alcoholism Grandmother Myocardial infarction Mother Arthritis Diverticulitis COPD (chronic obstructive pulmonary disease) Afib Thyroid disorder Father Arthritis Diabetes Myocardial infarction Heart disease Ischemic Hypertension Hyperlipidemia Brother Arthritis Aunt Breast cancer Sister Arthritis Thyroid disorder Skin cancer Uncle Diabetes Surgical History Ankle fracture Fracture of left femur History of angioplasty of peripheral vessel (2010) History of arthroscopic knee surgery History of back surgery History of bilateral knee replacement History of carpal tunnel release History of cholecystectomy History of intestine removal History of left heart catheterization (2011) History of tonsillectomy and adenoidectomy History of trigger finger History of ventral hernia repair Strangulated ventral hernia Social History household members: none Smoking Status: Former smoker how long ago did patient quit smokin alcohol intake: never substance use type: does not use what type of physical activity do you participate in: other ROS Constitutional Constitutional: Denies chills or fever(s) Eyes Eyes: Denies blurry vision ENT HEENT: Denies abnormal hearing Cardiovascular Cardiovascular: Denies chest pain Respiratory/Chest Respiratory/Chest: Reports cough and shortness of breath at rest Gastrointestinal Gastrointestinal: Denies abdominal pain Genitourinary Genitourinary: Reports dysuria Musculoskeletal Musculoskeletal: Denies back pain Integumentary Integumentary: Denies dry skin Neurologic Neurologic: Denies abnormal gait Psychiatric Psychiatric: Reports anxiety Endocrine Endocrinology: Denies change in body appearance Hematologic/Lymphatic Hematologic/Lymphatic: Reports anemia Vital Signs Vital Signs Vital Signs: 05/28/23 19:36 05/28/23 19:39 05/28/23 19:39 Temperature 96.3 F L 96.3 F L Temperature Source Temporal Temporal Pulse Rate 90 88 Respiratory Rate 22 H 16 Respiratory Effort Normal Respiratory Depth Normal Respiratory Pattern Normal Blood Pressure 83/54 L Blood Pressure Mean 63 Pulse Ox 92 93 Oxygen Delivery Method Room Air Room Air 05/28/23 20:54 05/28/23 21:08 05/28/23 21:47 Temperature 97.6 F L Temperature Source Temporal Pulse Rate 85 86 84 Respiratory Rate 18 25 H 18 Respiratory Effort Respiratory Depth Respiratory Pattern Blood Pressure 91/47 L 98/56 L 100/56 L Blood Pressure Mean 61 70 70 Pulse Ox 93 91 Oxygen Delivery Method Room Air Room Air Weight Weight: 227 lb 8.273 oz Body Mass Index (BMI) 41.5 Physical Exam Const oriented x3 General Appearance: cooperative and well developed HEENT normocephalic and head/scalp atraumatic Neck no lymphadenopathy Lymph Lymphatic: no lymphadenopathy noted Resp normal air movement Auscultation: wheezes right upper Cardio regular rate, S1 normal heart sound, S2 normal heart sound and no murmurs GI soft to palpation, non-tender and non-distended Extremity normal capillary refill Skin General Skin Exam: no breakdown Neuro no focal motor deficits and no sensory deficits noted Psych thought process normal, cooperative and affect normal Results Lab / Micro Data 05/28/23 19:50 05/28/23 19:50 Labs: Laboratory Results - last 24 hr 05/28/23 19:50: WBC 9.0, RBC 2.60 L, Hgb 8.1 L, Hct 25.8 L, MCV 99.2 H, MCH 31.2, MCHC 31.4 L, RDW Std Deviation 55.3 H, RDW Coeff of Lencho 15.1 H, Plt Count 182, MPV 9.9, Immature Gran % (Auto) 0.700, Neut % (Auto) 77.7 H, Lymph % (Auto) 14.7 L, [place] % (Auto) 5.6, Eos % (Auto) 1.0, Baso % (Auto) 0.3, Absolute Neuts (auto) 7.0, Absolute Lymphs (auto) 1.32, Nucleated RBC % 0, Sodium 136, Potassium 4.3, Chloride 110 H, Carbon Dioxide 20.0 L, Anion Gap 6, BUN 22 H, Creatinine 1.53 H, Estim Creat Clear Calc 30.15, Est GFR (MDRD) Af Amer 44 L, Est GFR (MDRD) Non-Af 37 L, BUN/Creatinine Ratio 14.4, Glucose 112 H, Calcium 8.7, Troponin I High Sens 5, B-Natriuretic Peptide 139.0 H 05/28/23 20:22: Urine Color Yellow, Urine Clarity Sl. Cloudy, Urine pH 6.5, Ur Specific [place] 1.010, Urine Protein 30 H, Urine Glucose (UA) Normal, Urine Ketones Negative, Urine Occult Blood 10 H, Urine Nitrite Positive H, Urine Bilirubin Negative, Urine Urobilinogen Normal, Ur Leukocyte Esterase 500 H, Urine RBC 0 SEEN, Urine WBC 50-100 SEEN, Ur Squamous Epith Cells 0-5 SEEN, Urine Bacteria RARE, Urine Mucus 0 SEEN 05/28/23 21:36: Lactic Acid 0.7 Micro: Microbiology 05/28/23 20:22 Nasal Secretion SARS-CoV-2 & FLU Antigen (Rapid) - Final Radiology Impression Brain CT 05/28/23 19:54 IMPRESSION: Mild atrophy and periventricular white matter disease. No acute bleed. If concern for acute infarct MRI recommended.. Electronically Signed: Nilay London MD at 20:40 EDT , Chest X-Ray 05/28/23 20:28 IMPRESSION: Partial collapse of right upper lobe.. Electronically Signed: Nilay London MD at 20:42 EDT , Assessment & Plan Assessment/Plan (1) UTI (urinary tract infection): (2) History of stroke: (3) Depression: (4) Diabetes mellitus: (5) Hyperlipidemia: (6) Hypothyroidism: (7) Hypotension: QUALIFIERS: Hypotension type: hypotension due to drug Qualified Code(s): I95.2 - Hypotension due to drugs PLAN: Plan 1. urinary tract infection?admit patient to progressive care unit?initiate Rocephin 2 g IV every 24 hours. IV normal saline at a rate of 150 cc/h overnight repeat CBC BMP in the morning 2. Shortness of breath?add oxygen as needed if saturation falls below 90% at this time and has been maintaining oxygenation above 90% without additional supplemental oxygen 3. Anemia?repeat CBC in the morning we will hold anticoagulation for now as she has been on Eliquis since having stroke. 4. Hyperlipidemia?continue statin medication 5. Hypothyroidism?continue Synthroid 6. Depression?continue routine home medications 7. DVT prophylaxis?SCDs Charges/Coding Visit Charges Inpatient E&M: 93067 Init Hosp L2
[2023-05-29] VITALS (11 sets, daily range): BP systolic 125–158; BP diastolic 66–86; PULSE 101–113; RESP 14–20; TEMP 36.7–38.6; O2SAT 92–96
[2023-05-29] MEDS: 0.9% Saline Lock 10 ML Syringe IV ×2 (00:11→22:09)
[2023-05-29] MEDS: 0.9% Normal Saline 1,000 ML 150 ML IV ×2 (02:56→09:46)
[2023-05-29] MEDS: Levothyroxine 112 MCG Tablet PO (05:24)
[2023-05-29 06:02] LABS: Absolute Lymphocyte Count 0.84 X10^3/uL (0.83-4.51); Absolute Neutrophil Count 6.2 X10^3/uL (2.0-7.7); Basophil# 0.02 X10^3/uL; Basophil% 0.3 % (0-1); Eosinophil# 0.08 X10^3/uL; Hematocrit 24.3 % (37-47); Hemoglobin 7.6 g/dL (12.0-15.0); Lymphocyte # 0.84 X10^3/ul (0.83-4.51); Mean Corp Hgb Conc 31.3 g/dL (32-36); Mean Corpuscular Hgb 31.3 pg (27.0-32.0); Mean Platelet Vol. 9.9 fl (6.2-12.0); Monocyte# 0.47 X10^3/uL; Monocyte% 6.2 % (0-10); NRBC Flagged by Analyzer 0 % (0-5); Neutrophil # 6.17 X10^3/uL (2.7-7.7); Neutrophil % 80.7 % (47-70); Platelet Count 162 K/mm3 (150-450); RBC Distribution Width CV 15.1 % (11.6-14.6); RBC Distribution Width SD 55.3 fl (35.1-43.9); Red Blood Count 2.43 M/mm3 (4.2-5.4); White Blood Count 7.6 K/mm3 (4.4-11.0)
[2023-05-29 06:34] LABS: Anion Gap 6 (5-15); BUN 16 mg/dL (7-18); BUN/Creat Ratio 16.4 RATIO (10-20); Calcium,Total 8.2 mg/dL (8.5-10.1); Chloride 114 mmol/L (98-107); Creatinine, Serum 0.97 mg/dL (0.55-1.02); EST Glomerular Filtration Rate 62 mL/min (>60); Est Glom Filt Rate - Afr Amer 75 mL/min (>60); Estimated Creatinine Clearance 51.93 ml/min; Glucose 106 mg/dL (74-106); Magnesium 1.9 mg/dL (1.6-2.6); Potassium 3.6 mmol/L (3.5-5.1); Sodium Level 139 mmol/L (136-145)
[2023-05-29] MEDS: Budesonide Respules 0.5 MG/2 ML AMPUL.NEB. INHALATION (06:50)
[2023-05-29] MEDS: Albuterol 2.5 MG/3 ML VIAL.NEB. INHALATION ×3 (06:51→19:43)
[2023-05-29] MEDS: Magnesium Chloride 64 MG Delay Rel.Tablet 128 MG PO (08:22)
[2023-05-29] MEDS: Pregabalin 50 MG Capsule 100 MG PO (08:22)
[2023-05-29] MEDS: Glucerna Shake 120 ML LIQUID PO ×2 (08:22→12:06)
[2023-05-29] MEDS: guaiFENesin 1,200 MG Tablet 1200 MG PO ×2 (08:23→21:50)
[2023-05-29] MEDS: SACUBITRIL/VALSARTAN 49-51 MG TABLET 1 EACH PO ×2 (08:23→21:49)
[2023-05-29] MEDS: LINAGLIPTIN 5 MG TABLET PO (08:23)
[2023-05-29] MEDS: DULoxetine Hcl 60 MG Capsule PO ×2 (08:23→21:49)
[2023-05-29] MEDS: Pantoprazole Sodium 40 MG Tablet PO ×2 (08:23→21:51)
[2023-05-29] MEDS: Multivitamins,Therapeutic Tablet 1 TABLET PO (08:23)
[2023-05-29] MEDS: Loratadine 10 MG Tablet PO (08:23)
--- NOTE | 2023-05-29 10:13 | WOUNDNOTE ---
wound photo: left medial lower leg
--- NOTE | 2023-05-29 11:45 | CASEMGMT ---
DRE DELGADILLO Discharge Planning Assessment: Face to Face with pt for initial transition planning/care coordination assessment. DRE DELGADILLO introduced self and role at [facility], pt alert, sitting up in bed, voices understanding and consents to assessment. Pt is A/O x4 and answers all questions appropriately at this time. Care providers, pharmacy, and demographics verified/updated. Admitting Dx: UTI PCP: Brian Specialists: Josephine (hematology), [facility]UL[facility] orthopedics, [facility] pulmonology, Arthur (cardiology) [facility]erred [facility]acy[facility] Insurance: [facility] MCR DUAL and [employer] CP Prescription Benefit: yes LNOK: sister Dee Living Arrangements: Pt lives alone in a single story apartment with no steps to enter. Pt states she is independent with ADLs but has a POLICY SERVICES REPRESENTATIVE on Mondays and Fridays to assist with household tasks. Pt prepares her own meals with some help from her POLICY SERVICES REPRESENTATIVE. Transportation: Pt drives self in town and when she feels well. When unable to drive self, pt's sister or friends assist with transportation DME: cane, walker, w/c, scooter, pulse oximeter, shower chair, grab bars, lift chair (currently broken but parts on their way to fix it), glucometer and supplies SNF: [facility]: yes, [facility] and states has other providers also but does not recall all of their names. Pt's current POLICY SERVICES REPRESENTATIVE are from [place]. Pt Goal: Return home with resumption of her POLICY SERVICES REPRESENTATIVE/waiver services. Pt would be open to skilled home services if needed but does not want to return to a SNF. Will continue to monitor pt's clinical progress and participation in therapy for final determination of discharge plan. José Perez RN CM
--- NOTE | 2023-05-29 14:29 | PN_ITS ---
Subjective Subjective Patient seen and examined. She was coughing quite incessantly The lungs had been feeling tight which started coughing after she received a breathing treatments. Cough was productive of some sputum. She denied any shortness of breath, chest pain or palpitations. Review of symptoms otherwise negative. Objective Data Objective Data Vital Signs: Vital Signs Temp Pulse Resp BP Pulse Ox O2 Del Method 98.1 F 101 H 20 H 158/85 H 96 Room Air 05/29/23 11:00 05/29/23 12:55 05/29/23 12:55 05/29/23 11:00 05/29/23 11:00 05/29/23 11:00 Oxygen Delivery Method Room Air Weight: 213 lb 13.574 oz Body Mass Index (BMI) 36.7 Intake & Output: Intake and Output for Last 24 Hours 05/27/23 05/28/23 05/29/23 23:59 23:59 23:59 Intake Total 500 / 700 2600 / 2600 Balance 500 / 700 2600 / 2600 Lab / Micro Data 05/29/23 04:49 05/29/23 04:49 Labs: Laboratory Results - last 24 hr 05/28/23 19:50: WBC 9.0, RBC 2.60 L, Hgb 8.1 L, Hct 25.8 L, MCV 99.2 H, MCH 31.2, MCHC 31.4 L, RDW Std Deviation 55.3 H, RDW Coeff of Lencho 15.1 H, Plt Count 182, MPV 9.9, Immature Gran % (Auto) 0.700, Neut % (Auto) 77.7 H, Lymph % (Auto) 14.7 L, [place] % (Auto) 5.6, Eos % (Auto) 1.0, Baso % (Auto) 0.3, Absolute Neuts (auto) 7.0, Absolute Lymphs (auto) 1.32, Nucleated RBC % 0, Sodium 136, Potassium 4.3, Chloride 110 H, Carbon Dioxide 20.0 L, Anion Gap 6, BUN 22 H, Creatinine 1.53 H, Estim Creat Clear Calc 30.15, Est GFR (MDRD) Af Amer 44 L, Est GFR (MDRD) Non-Af 37 L, BUN/Creatinine Ratio 14.4, Glucose 112 H, Calcium 8.7, Troponin I High Sens 5, B-Natriuretic Peptide 139.0 H 05/28/23 20:22: Urine Color Yellow, Urine Clarity Sl. Cloudy, Urine pH 6.5, Ur Specific [place] 1.010, Urine Protein 30 H, Urine Glucose (UA) Normal, Urine Ketones Negative, Urine Occult Blood 10 H, Urine Nitrite Positive H, Urine Bilirubin Negative, Urine Urobilinogen Normal, Ur Leukocyte Esterase 500 H, Urine RBC 0 SEEN, Urine WBC 50-100 SEEN, Ur Squamous Epith Cells 0-5 SEEN, Urine Bacteria RARE, Urine Mucus 0 SEEN 05/28/23 21:36: Lactic Acid 0.7 05/29/23 04:49: WBC 7.6, RBC 2.43 L, Hgb 7.6 L, Hct 24.3 L, MCV 100.0 H, MCH 31.3, MCHC 31.3 L, RDW Std Deviation 55.3 H, RDW Coeff of Lencho 15.1 H, Plt Count 162, MPV 9.9, Immature Gran % (Auto) 0.800, Neut % (Auto) 80.7 H, Lymph % (Auto) 11.0 L, [place] % (Auto) 6.2, Eos % (Auto) 1.0, Baso % (Auto) 0.3, Absolute Neuts (auto) 6.2, Absolute Lymphs (auto) 0.84, Nucleated RBC % 0, Sodium 139, Po tassium 3.6, Chloride 114 H, Carbon Dioxide 19.0 L, Anion Gap 6, BUN 16, Creatinine 0.97, Estim Creat Clear Calc 51.93, Est GFR (MDRD) Af Amer 75, Est GFR (MDRD) Non-Af 62, BUN/Creatinine Ratio 16.4, Glucose 106, Calcium 8.2 L, Mag nesium 1.9 Micro: Microbiology 05/28/23 20:22 Nasal Secretion SARS-CoV-2 & FLU Antigen (Rapid) - Final Radiography Diagnostic Testing: Radiology Impression Brain CT 05/28/23 19:54 IMPRESSION: Mild atrophy and periventricular white matter disease. No acute bleed. If concern for acute infarct MRI recommended.. Electronically Signed: Nilay London MD at 20:40 EDT , Chest X-Ray 05/28/23 20:28 IMPRESSION: Partial collapse of right upper lobe.. Electronically Signed: Nilay London MD at 20:42 EDT , Physical Exam Const alert, oriented x3 and no apparent distress Constitutional Narrative: obese HEENT normocephalic, head/scalp atraumatic and moist oral mucous membranes Eyes PERRL and EOMs intact bilaterally Neck no lymphadenopathy and supple General: trachea midline Lymph Lymphatic: no lymphadenopathy noted and no lymphedema noted Resp Resp Narrative: diminished breath sounds bibasally, mild wheezing bilaterally. NO crackles. On room air. Cardio regular rate, regular rhythm, S1 normal heart sound, S2 normal heart sound and no murmurs GI normal to inspection, nondistended, normoactive bowel sounds, soft to palpation, non-tender and non-distended Extremity normal capillary refill, no clubbing, cyanosis or edema and no calf tenderness General Extremity: no tenderness to palpation of joints or extremities Skin General Skin Exam: no breakdown Neuro CN's II-XII intact bilaterally, no focal motor deficits, no sensory deficits noted and deep tendon reflexes 2+ bilaterally Psych thought process normal and cooperative Appearance: appropriate Assessment & Plan Assessment/Plan (1) UTI (urinary tract infection): (2) Acute dyspnea: PLAN: Plan #UTI * urinalysis showed evidence of UTI * on IV ceftriaxone * urine cultures pending * #Dyspnea * she has a history of COPD and is wheezing. * I do think it is reasonable to start her on IV slumedrol for COPD exacerbation * breathing treatment with bronchodilators * titrate oxygen as needed to maintain sats >90% * #Hypertension; on carvedilol and hydralazine. #Hyperlipidemia: on statin #Type 2 diabetes mellitus; on ISS. Accuchecks ACHS. On sitagliptin #Cervical stenosis: stable. #Carotid artery stenosis: on statin. #History of CVA: Had a suspected embolic stroke September 2022. On high intensity statin. on eliquis DVT prophylaxis: on eliquis * Charges/Coding Visit Charges Inpatient E&M: 85057 Subs Hosp L2
--- NOTE | 2023-05-29 14:48 | CASEMGMT ---
Patient's [facility] shelter case manager is Sreekanth Rivero ([phone]). SW called [facility] and spoke with Lyle Tatum on the coverage line. Patient has [facility] for an clinical assessment manager every 60 days and and aide 16 hours a week. Zulema June GEOLOGY SCIENTIST ROLAN
[2023-05-29] MEDS: Methylprednisolone Sod Succ 40 MG/ML VIAL IV ×2 (15:35→22:08)
[2023-05-29] MEDS: Carvedilol 25 MG Tablet PO (16:30)
[2023-05-29] MEDS: Dicyclomine 10 MG Capsule 20 MG PO (16:35)
[2023-05-29] MEDS: hydrALAZINE 25 MG Tablet PO (21:47)
[2023-05-29] MEDS: Venlafaxine HCl 75 MG Tablet 150 MG PO (21:48)
[2023-05-29] MEDS: APIXABAN 5 MG TABLET PO (21:49)
[2023-05-29] MEDS: Atorvastatin Calcium 40 MG Tablet PO (21:49)
[2023-05-29] MEDS: Amitriptyline 25 MG Tablet PO (22:05)
[2023-05-30 03:30] VITALS: BP 130/70; PULSE 87; RESP 18; TEMP 37.2; O2SAT 94
[2023-05-30 06:17] LABS: Hematocrit 26.8 % (37-47); Hemoglobin 8.3 g/dL (12.0-15.0); Mean Corpuscular Hgb 30.5 pg (27.0-32.0); Mean Corpuscular Volume 98.5 fL (81-99); Mean Platelet Vol. 9.9 fl (6.2-12.0); POSITIVE COUNT YES; POSITIVE DIFFERENTIAL YES; POSITIVE MORPHOLOGY YES; Platelet Count 212 K/mm3 (150-450); RBC Distribution Width CV 14.8 % (11.6-14.6); RBC Distribution Width SD 53.3 fl (35.1-43.9); Red Blood Count 2.72 M/mm3 (4.2-5.4)
[2023-05-30 06:20] LABS: Differential Indicated MANUAL DIFF
[2023-05-30] MEDS: 0.9% Saline Lock 10 ML Syringe IV (06:40)
[2023-05-30] MEDS: Methylprednisolone Sod Succ 40 MG/ML VIAL IV (06:40)
[2023-05-30] MEDS: Levothyroxine 112 MCG Tablet PO (06:41)
[2023-05-30 06:48] VITALS: PULSE 100; RESP 18; O2SAT 94
[2023-05-30] MEDS: Albuterol 2.5 MG/3 ML VIAL.NEB. INHALATION (06:48)
[2023-05-30 06:49] LABS: Anisocytosis 1+; Platelet Estimate ADEQUATE (ADEQ); Red Cell Morphology NORM C+C NORMAL (NORM C&C)
[2023-05-30 06:51] LABS: Absolute Neutrophil Count 7.3 X10^3/uL (2.0-7.7)
[2023-05-30 06:52] LABS: Absolute Lymphocyte Count 0.32 X10^3/uL (0.83-4.51)
[2023-05-30 06:57] LABS: Lymphocyte 4 % (19-41); Metamyelocyte 1 % (0-1); Monocyte 2 % (0-10); Myelocyte 1 % (0-0); Neutrophil-Segmented 92 % (47-70); Total Cells Counted 100 (MANUAL DIFF)
[2023-05-30 07:18] LABS: Anion Gap 5 (5-15); BUN 11 mg/dL (7-18); BUN/Creat Ratio 12.2 RATIO (10-20); Calcium,Total 8.3 mg/dL (8.5-10.1); Chloride 114 mmol/L (98-107); EST Glomerular Filtration Rate 68 mL/min (>60); Est Glom Filt Rate - Afr Amer 82 mL/min (>60); Estimated Creatinine Clearance 55.97 ml/min; Glucose 190 mg/dL (74-106); Potassium 3.6 mmol/L (3.5-5.1); Sodium Level 140 mmol/L (136-145)
[2023-05-30 09:44] VITALS: BP 141/82; PULSE 105; RESP 18; TEMP 36.6; O2SAT 96
[2023-05-30] MEDS: Dicyclomine 10 MG Capsule 20 MG PO ×2 (09:52→11:55)
[2023-05-30] MEDS: SACUBITRIL/VALSARTAN 49-51 MG TABLET 1 EACH PO (09:53)
[2023-05-30] MEDS: Venlafaxine HCl 75 MG Tablet PO (09:53)
[2023-05-30] MEDS: DULoxetine Hcl 60 MG Capsule PO (09:53)
[2023-05-30] MEDS: Loratadine 10 MG Tablet PO (09:53)
[2023-05-30] MEDS: Aspirin E.C. 81 MG Tablet PO (09:53)
[2023-05-30] MEDS: Multivitamins,Therapeutic Tablet 1 TABLET PO (09:53)
[2023-05-30] MEDS: Ascorbic Acid 500 MG Tablet PO (09:54)
[2023-05-30] MEDS: Carvedilol 25 MG Tablet PO (09:54)
[2023-05-30] MEDS: Acyclovir 200 MG Capsule 400 MG PO (09:54)
[2023-05-30 09:55] VITALS: BP 141/82; PULSE 105
[2023-05-30] MEDS: Pantoprazole Sodium 40 MG Tablet PO (09:55)
[2023-05-30] MEDS: LINAGLIPTIN 5 MG TABLET PO (09:55)
[2023-05-30] MEDS: hydrALAZINE 25 MG Tablet PO (09:55)
[2023-05-30] MEDS: Magnesium Chloride 64 MG Delay Rel.Tablet 128 MG PO (09:56)
[2023-05-30] MEDS: guaiFENesin 1,200 MG Tablet 1200 MG PO (09:56)
[2023-05-30] MEDS: APIXABAN 5 MG TABLET PO (09:56)
[2023-05-30 10:06] VITALS: BP 141/82; PULSE 65; RESP 18; TEMP 36.6; O2SAT 96
--- NOTE | 2023-05-30 10:25 | CASEMGMT ---
DRE DELGADILLO NOTE: DRE DELGADILLO to room to discuss discharge planning. Pt sitting up in recliner chair in room. She states therapy was in to work w/her and assisted her up and states she walked to the door and back. She states she feels she is @ her baseline and denies having any weakness. She declines needing or wanting HHC, CCN, or Pt Link. She states, I'm okay. I don't need anything right now. If I need anything once I return home, I'll f/u with Dr Torres. She thanked DRE DELGADILLO for f/u with her and made aware to ask for DRE DELGADILLO if anything arises prior to discharge. She voices understanding. Cathryn HERNANDEZ RN, CM
--- NOTE | 2023-05-30 11:23 | DS.PCM_ITS ---
Providers Date of Admission: 05/28/23 Date of Discharge: 05/30/23 Primary Care Physician: Dr. Brandon Torres, Consultations 05/29/23 01:56 Consult: Onc/Wound/systems architecture analyst Routine Comment: Reason for Consult:: small left leg wounds states not healing for several weeks Reason For Visit: URINARY TRACT INFECTION/GENERALIZED WEAKNESS Diagnosis Discharge Diagnosis (1) UTI (urinary tract infection): Status: Acute Code(s): N39.0 - Urinary tract infection, site not specified (2) Acute dyspnea: Status: Acute Code(s): R06.00 - Dyspnea, unspecified Plan #UTI * urinalysis showed evidence of UTI * on IV ceftriaxone * urine cultures pending * #Dyspnea * she has a history of COPD and is wheezing. * I do think it is reasonable to start her on IV slumedrol for COPD exacerbation * breathing treatment with bronchodilators * titrate oxygen as needed to maintain sats >90% * #Hypertension; on carvedilol and hydralazine. #Hyperlipidemia: on statin #Type 2 diabetes mellitus; on ISS. Accuchecks ACHS. On sitagliptin #Cervical stenosis: stable. #Carotid artery stenosis: on statin. #History of CVA: Had a suspected embolic stroke September 2022. On high intensity statin. on eliquis DVT prophylaxis: on eliquis * Medications at Discharge Home Medications multivitamin 1 tab PO DAILY vitamin 12/29/17 pantoprazole 40 mg tablet,delayed release 40 mg PO BID GERD 03/29/19 amitriptyline 25 mg tablet 25 mg PO QHS mood 08/10/19 rosuvastatin 20 mg tablet (Crestor) 20 mg PO QHS cholesterol 08/25/19 sitagliptin phosphate 50 mg tablet (Januvia) 50 mg PO DAILY diabetes 09/04/19 duloxetine 60 mg capsule,delayed release 60 mg PO BID nerve pain 10/19/20 valacyclovir 500 mg tablet (Valtrex) 500 mg PO DAILY cold soars 10/19/20 tizanidine 4 mg tablet (Zanaflex) 4 mg PO Q8H PRN Muscle Spasm 01/26/21 ascorbate calcium (vitamin C) 500 mg tablet 500 mg PO DAILY vitamin 01/27/21 calcium carbonate 600 mg-vitamin D3 12.5 mcg (500 unit) capsule (Calcium 600 with Vitamin D3) 1 cap PO DAILY supplement 01/27/21 magnesium oxide 400 mg PO DAILY supplement 01/27/21 Lactobacillus rhamnosus GG 10 billion cell capsule (Culturelle) 1 cap PO DAILY 05/18/21 pregabalin 100 mg capsule 100 mg PO DAILY Nerve pain 05/18/21 carvedilol 25 mg tablet (Coreg) 25 mg PO BID BP 08/23/21 fluticasone 100 mcg-salmeterol 50 mcg/dose blistr powdr for inhalation (Advair Diskus) 1 inh inhalation BID Breathing 02/11/22 sacubitril 49 mg-valsartan 51 mg tablet (Entresto) 1 tab PO BID Heart 02/11/22 alendronate 70 mg tablet 70 mg PO TU BONES 02/13/22 cetirizine 10 mg tablet (Zyrtec) 10 mg PO DAILY ALLERGIES 02/13/22 aspirin 81 mg tablet,delayed release 81 mg PO DAILY@0800 Heart health 02/15/22 zinc 50 mg PO/SL DAILY 05/10/22 hydrocodone 7.5 mg-acetaminophen 325 mg tablet 1 - 2 tab PO Q8H PRN Pain 06/19/22 dicyclomine 20 mg tablet 20 mg PO TIDCM 09/11/22 guaifenesin 600 mg tablet, extended release 12 hr (Mucinex) 1,200 mg PO BID 09/11/22 levothyroxine 112 mcg tablet 112 mcg PO DAILY 09/11/22 apixaban 5 mg tablet (Eliquis) 5 mg PO BID 30 days #60 tabs 09/18/22 hydralazine 25 mg tablet 25 mg PO BID #180 TABLETS 05/14/23 benzonatate 100 mg capsule 100 mg PO Q8H PRN cough 05/28/23 venlafaxine 75 mg tablet 75 mg PO DAILY depression 05/28/23 fluticasone 500 mcg-salmeterol 50 mcg/dose blistr powdr for inhalation (Advair D iskus) 1 inh inhalation BID breathing 05/29/23 venlafaxine 75 mg tablet 150 mg PO QHS depression 05/29/23 cefdinir 300 mg capsule 300 mg PO BID #10 caps 05/30/23 prednisone 20 mg tablet 40 mg (2 x 20 mg) PO DAILY #10 tabs 05/30/23 Hospital Course Operations None Procedures None Summary of Care Provided Minutes Spent on Discharge: 52 Hospital Course: Patient is a 62-year-old female with a past medical history as outlined who was admitted via the ED on 05/30/2023 with a complaint of shortness of breath and generalised weakness. She also had associated dysuria for 2 days prior to admission. She denied any fever, chills, cough, chest pain, palpitations, dizziness, nausea, vomiting or any other symptoms. REview of systems was ot herwise negative. She had a history of pneumonia with partial lung collapse in the right upper lobe. Urinalysis on admission showed evidence of UTI. She was admitted and managed for UTI and started on IV ceftriaxone. Hospital course was complicated by wheezing and a diagnosis of COPD exacerbation was made. She was started on IV solumedrol. Shortness of breath improved and she felt much better. Patient requested to be discharged home to take care of her 6 month old puppy. Patient was discharged home on 05/30/2023. She was discharged on PO prednisone 40mg daily and PO cefdinir 300mg bid x 5 days. She is to follow up with her PCP within 1-2 weeks. Patient seen and examined prior to discharge. She had no complaints and had an uneventful night. Review of systems is otherwise negative. Labs and vitals reviewed. Home meds reviewed and reconciled. Physical Exam Const alert, oriented x3 and no apparent distress Constitutional Narrative: obese General Appearance: cooperative, comfortable, well kempt and well developed HEENT normocephalic, head/scalp atraumatic, hearing grossly normal bilaterally and moist oral mucous membranes Mouth: oral and palatal mucosa normal Eyes PERRL and EOMs intact bilaterally Neck no lymphadenopathy and supple General: trachea midline Lymph Lymphatic: no lymphadenopathy noted and no lymphedema noted Resp normal air movement Resp Narrative: diminished breath sounds bibasally, no wheezing or crackles. On room air. Auscultation: wheezes right upper Cardio regular rate, regular rhythm, S1 normal heart sound, S2 normal heart sound and no murmurs GI normal to inspection, nondistended, normoactive bowel sounds, soft to palpation, non-tender and non-distended Extremity normal to inspection, full ROM, normal capillary refill, no clubbing, cyanosis or edema and no calf tenderness General Extremity: no tenderness to palpation of joints or extremities Skin no rashes or lesions noted General Skin Exam: no breakdown Neuro oriented x3, CN's II-XII intact bilaterally, moves all extremities, no focal motor deficits, no sensory deficits noted and deep tendon reflexes 2+ bilateral ly Sensorium / Orientation: awake and alert Psych thought process normal, cooperative and affect normal Appearance: appropriate Weight / BMI Weight Weight: 213 lb 13.574 oz Body Mass Index (BMI) 36.7 ABG / Lab / Microbiology Data 05/30/23 05:00 05/30/23 05:00 Laboratory: Laboratory Results - last 24 hr 05/30/23 05:00: WBC 8.0, RBC 2.72 L, Hgb 8.3 L, Hct 26.8 L, MCV 98.5, MCH 30.5, MCHC 31.0 L, RDW Std Deviation 53.3 H, RDW Coeff of Lencho 14.8 H, Plt Count 212, MPV 9.9, Neut % (Auto) Not Reportable, Absolute Neuts (auto) 7.3, Absolute Lymphs (auto) 0.32 L, Total Counted 100, Neutrophils % (Manual) 92 H, Lymphocytes % (Manual) 4 L, Monocytes % (Manual) 2, Metamyelocytes % 1, Myelocytes % 1 H, Diff Path Review May foll, Platelet Estimate ADEQUATE, RBC Morphology NORM C+C, Anisocytosis 1+, Sodium 140, Potassium 3.6, Chloride 114 H, Carbon Dioxide 21.0, Anion Gap 5, BUN 11, Creatinine 0.90, Estim Creat Clear Calc 55.97, Est GFR (MDRD) Af Amer 82, Est GFR (MDRD) Non-Af 68, BUN/Creatinine Ratio 12.2, Glucose 190 H, Calcium 8.3 L Microbiology: Microbiology 05/28/23 20:22 Nasal Secretion SARS-CoV-2 & FLU Antigen (Rapid) - Final D/C Instructions Discharge Diet: Low fat / Low cholesterol Discharge Activity: Return to Normal Activity Weight Bearing Status: Weight bearing as tolerated Call your doctor if you observe: Fever of 101 or Higher, Shortness of breath, Dizziness, Swelling in the ankles and Chest pain Meaningful Use Info Meaningful Use Diagnoses (Choose all that apply): None applicable Discharge Plan Admission Admit Date/Time: 05/28/23 22:19 Primary Reason for Your Visit: UTI, COPD exacerbation Attending Provider: Nichol Draper Primary Care Provider: Brandon Torres Consulting Providers: Jordi Kasper Instructions Patient Instructions: ED Cystitis Female Adult Discharge Orders/Prescriptions Prescriptions: New cefdinir 300 mg capsule 300 mg PO BID Qty: 10 0RF prednisone 20 mg tablet 40 mg PO DAILY Qty: 10 0RF Continued Januvia 50 mg tablet 50 mg PO DAILY rosuvastatin [Crestor] 20 mg tablet 20 mg PO QHS calcium carbonate-vitamin D3 [Calcium 600 with Vitamin D3] 600 mg(1,500mg) - 500 unit capsule 1 cap PO DAILY magnesium oxide 400 mg magnesium capsule 400 mg PO DAILY ascorbate calcium (vitamin C) 500 mg tablet 500 mg PO DAILY tizanidine [Zanaflex] 4 mg tablet 4 mg PO Q8H PRN (Reason: Muscle Spasm) Culturelle 10 billion cell capsule 1 cap PO DAILY pregabalin 100 mg capsule 100 mg PO DAILY hydrocodone-acetaminophen 7.5-325 mg tablet 1 - 2 tab PO Q8H PRN (Reason: Pain) multivitamin 1 EACH tablet 1 tab PO DAILY Patient Comments: vitamin pantoprazole 40 MG tablet 40 mg PO BID Patient Comments: GERD amitriptyline 25 MG tablet 25 mg PO QHS duloxetine 60 MG capsule 60 mg PO BID valacyclovir [Valtrex] 500 MG tablet 500 mg PO DAILY zinc 50 mg capsule 50 mg PO/SL DAILY fluticasone propion-salmeterol [Advair Diskus] 100-50 mcg/dose Blister With Device 1 inh INHALATION BID Entresto 49-51 mg Tablet 1 tab PO BID cetirizine [Zyrtec] 10 mg Tablet 10 mg PO DAILY alendronate 70 MG tablet 70 mg PO Rx Instructions: takes on tuesdays aspirin 81 MG tablet,delayed release (DR/EC) 81 mg PO DAILY@0800 dicyclomine 20 mg Tablet 20 mg PO TIDCM levothyroxine 112 mcg Tablet 112 mcg PO DAILY guaifenesin [Mucinex] 600 mg Tablet Extended Release 12hr 1,200 mg PO BID Eliquis 5 mg Tablet 5 mg PO BID 30 Days Qty: 60 0RF venlafaxine 75 mg tablet 75 mg PO DAILY benzonatate 100 mg capsule 100 mg PO Q8H PRN Patient Comments: 1-2 caps as needed fluticasone propion-salmeterol [Advair Diskus] 500-50 mcg/dose blister with device 1 inh INHALATION BID venlafaxine 75 mg tablet 150 mg PO QHS carvedilol [Coreg] 25 mg tablet 25 mg PO BID Rx Instructions: must administer with a meal/food hydralazine 25 mg tablet 25 mg PO BID Qty: 180 3RF Referrals / Follow Up: Brandon Torres DO [Primary Care Provider] - 06/12/23 9:45 am Disposition Disposition (needs filled in before D/C Order can be placed): Home, Self Care Charges/Coding Visit Charges Inpatient E&M: 94422 Disch Hosp >30min
[2023-05-30] MEDS: Pregabalin 50 MG Capsule 100 MG PO (11:54)
[2023-05-30] MEDS: Calcium Carb/Vitamin D 1 TABLET Tablet PO (11:55)
--- NOTE | 2023-05-30 12:03 | CASEMGMT ---
CECE faxed patient's d/c instructions to Sreekanth at [facility]. Zulema June FRENCH EDGE OPERATOR ROLAN
--- NOTE | 2023-05-30 12:21 | PHA.DC_ITS ---
Pharmacy [facility] has performed discharge medication reconciliation and counseling for this patient. 1. Cefdinir 300 mg PO BID x 5 days 2. Prednisone 40 mg po daily x 5 days The patient's discharge medication list was reviewed for discrepancies and discrepancies were resolved. The patient was counseled on the following discharge medications and changes in medications for homegoing were reviewed. The Reason for Use, instructions for use, and potential side effects were reviewed for all new medications. The patient's questions regarding all of their medications were answered. The patient was able to verbally demonstrate an understanding of their discharge medications. Counselling was provided by pharmacy delivery driver Estevan. Medications at Discharge Home Medications multivitamin 1 tab PO DAILY vitamin 12/29/17 pantoprazole 40 mg tablet,delayed release 40 mg PO BID GERD 03/29/19 amitriptyline 25 mg tablet 25 mg PO QHS mood 08/10/19 rosuvastatin 20 mg tablet (Crestor) 20 mg PO QHS cholesterol 08/25/19 sitagliptin phosphate 50 mg tablet (Januvia) 50 mg PO DAILY diabetes 09/04/19 duloxetine 60 mg capsule,delayed release 60 mg PO BID nerve pain 10/19/20 valacyclovir 500 mg tablet (Valtrex) 500 mg PO DAILY cold soars 10/19/20 tizanidine 4 mg tablet (Zanaflex) 4 mg PO Q8H PRN Muscle Spasm 01/26/21 ascorbate calcium (vitamin C) 500 mg tablet 500 mg PO DAILY vitamin 01/27/21 calcium carbonate 600 mg-vitamin D3 12.5 mcg (500 unit) capsule (Calcium 600 with Vitamin D3) 1 cap PO DAILY supplement 01/27/21 magnesium oxide 400 mg PO DAILY supplement 01/27/21 Lactobacillus rhamnosus GG 10 billion cell capsule (Culturelle) 1 cap PO DAILY 05/18/21 pregabalin 100 mg capsule 100 mg PO DAILY Nerve pain 05/18/21 carvedilol 25 mg tablet (Coreg) 25 mg PO BID BP 08/23/21 fluticasone 100 mcg-salmeterol 50 mcg/dose blistr powdr for inhalation (Advair Diskus) 1 inh inhalation BID Breathing 02/11/22 sacubitril 49 mg-valsartan 51 mg tablet (Entresto) 1 tab PO BID Heart 02/11/22 alendronate 70 mg tablet 70 mg PO TU BONES 02/13/22 cetirizine 10 mg tablet (Zyrtec) 10 mg PO DAILY ALLERGIES 02/13/22 aspirin 81 mg tablet,delayed release 81 mg PO DAILY@0800 Heart health 02/15/22 zinc 50 mg PO/SL DAILY 05/10/22 hydrocodone 7.5 mg-acetaminophen 325 mg tablet 1 - 2 tab PO Q8H PRN Pain 06/19/22 dicyclomine 20 mg tablet 20 mg PO TIDCM 09/11/22 guaifenesin 600 mg tablet, extended release 12 hr (Mucinex) 1,200 mg PO BID 09/11/22 levothyroxine 112 mcg tablet 112 mcg PO DAILY 09/11/22 apixaban 5 mg tablet (Eliquis) 5 mg PO BID 30 days #60 tabs 09/18/22 hydralazine 25 mg tablet 25 mg PO BID #180 TABLETS 05/14/23 benzonatate 100 mg capsule 100 mg PO Q8H PRN cough 05/28/23 venlafaxine 75 mg tablet 75 mg PO DAILY depression 05/28/23 fluticasone 500 mcg-salmeterol 50 mcg/dose blistr powdr for inhalation (Advair Diskus) 1 inh inhalation BID breathing 05/29/23 venlafaxine 75 mg tablet 150 mg PO QHS depression 05/29/23 cefdinir 300 mg capsule 300 mg PO BID #10 caps 05/30/23 prednisone 20 mg tablet 40 mg (2 x 20 mg) PO DAILY #10 tabs 05/30/23
[2023-05-30 15:45] VITALS: BP 147/87; PULSE 97; RESP 18; TEMP 36.7; O2SAT 97
[2023-05-31 09:55] LABS: Pathologist Review Reviewed
== END 2023-05-30 15:58 | disposition home or self-care (01) | DRG 690 ==
LOC: ED 21:50 → PCU 05-29 00:28
PROVIDERS: Admitting Provider Family Medicine; Emergency Provider Emergency Medicine; PCP Student in an Organized Health Care Education/Training Program; Visit Provider Student in an Organized Health Care Education/Training Program
DX: N39.0 Urinary tract infection, site not specified (principal); I13.0 Hypertensive heart and chronic kidney disease with heart failure and stage 1 through stage 4 chronic kidney disease, or unspecified chronic kidney disease; N17.9 Acute kidney failure, unspecified; I50.22 Chronic systolic (congestive) heart failure; I42.8 Other cardiomyopathies; J44.1 Chronic obstructive pulmonary disease with (acute) exacerbation; E11.22 Type 2 diabetes mellitus with diabetic chronic kidney disease; E11.40 Type 2 diabetes mellitus with diabetic neuropathy, unspecified; E11.51 Type 2 diabetes mellitus with diabetic peripheral angiopathy without gangrene; N18.30 Chronic kidney disease, stage 3 unspecified; F32.A Depression, unspecified; I95.2 Hypotension due to drugs; I25.10 Atherosclerotic heart disease of native coronary artery without angina pectoris; E78.5 Hyperlipidemia, unspecified; E03.9 Hypothyroidism, unspecified; M48.02 Spinal stenosis, cervical region; I65.29 Occlusion and stenosis of unspecified carotid artery; Z79.51 Long term (current) use of inhaled steroids; Z79.01 Long term (current) use of anticoagulants; Z79.82 Long term (current) use of aspirin; Z79.83 Long term (current) use of bisphosphonates; R41.0 Disorientation, unspecified; Z87.891 Personal history of nicotine dependence; Z86.73 Personal history of transient ischemic attack (TIA), and cerebral infarction without residual deficits
CPT/HCPCS: 36415; 70450; 71045; 80048; 81001; 83605; 83735; 83880; 84484; 85025; 87040; 87077; 87086; 87088; 87186; 87428; 93005; 94640; 97161; 97166; 97802; 99285; J7030; J7040; A4216; J0696

== ENCOUNTER 2023-06-08 01:27 | Observation (INO) | payer MEDICARE, MEDICAID, SELFPAY ==
[2023-06-08] VITALS (10 sets, daily range): BP systolic 52–133; BP diastolic 32–80; PULSE 62–80; RESP 12–29; TEMP 36–36.8; O2SAT 96–100; BMI 39.8; BMI 38.9
--- NOTE | 2023-06-08 01:51 | RAD_ITS ---
EXAM: XR CHEST, 1 VIEW CLINICAL INDICATION: weakness TECHNIQUE: Frontal view of the chest. COMPARISON: Portable chest 05/28/2023 FINDINGS: LUNGS AND PLEURAL SPACES: Some residual partial collapse of the right upper lobe. A central obstructing lesion is not excluded. No effusion. HEART: Unremarkable. Cardiac silhouette not enlarged. MEDIASTINUM: Central airways and mediastinal contour are unremarkable. BONES/JOINTS: Unremarkable. SOFT TISSUES: Unremarkable. RAD/Chest 1 View (Portable) IMPRESSION: Some residual partial collapse of the right upper lobe. A central obstructing lesion is not excluded. A follow-up chest CT is recommended. Electronically Signed: Khalif Partida MD at 2:52 EDT ,
--- NOTE | 2023-06-08 01:51 | EKG12_ITS ---
Test Reason : DYSRHYTHMIA Blood Pressure : / mmHG Vent. Rate : 063 BPM Atrial Rate : 063 BPM P-R Int : 172 ms QRS Dur : 094 ms QT Int : 448 ms P-R-T Axes : 057 067 055 degrees QTc Int : 458 ms Normal sinus rhythm Normal ECG Confirmed by PETRONA CASTRO, LUIS FERNANDO ([id number]), digital editor ANASTASIA HENSON ([id number]) on 06/08/2023 10:09:52 AM Referred By: DEVON Confirmed By:LUIS FERNANDO RUSS MD
--- NOTE | 2023-06-08 01:51 | CT_ITS ---
We are attempting to reach an attending provider to discuss findings. An addendum with communication details will be sent when the communication is complete. EXAM: CT ANGIOGRAPHY HEAD AND NECK WITH INTRAVENOUS CONTRAST CLINICAL INDICATION: vertigo, R sided paresthesias TECHNIQUE: [place]/head and neck CT angiography protocol performed with intravenous contrast. This CT exam was performed using one or more of the following dose reduction techniques: automated exposure control, adjustment of the mA and/or kV according to patient size, and/or use of iterative reconstruction technique. MIP reconstructed images were created and reviewed. CONTRAST: IV 100mL Isovue-370 RADIATION DOSE: CTDIvol = 31.70 mGy, DLP = 1615.56 mGy-cm COMPARISON: Head CT from 05/28/2023 FINDINGS: HEAD: RIGHT ANTERIOR CEREBRAL ARTERY: Unremarkable. No significant stenosis at the visualized segments. Anterior communicating artery is present. No aneurysm. RIGHT MIDDLE CEREBRAL ARTERY: Unremarkable. No significant stenosis at the visualized segments. No aneurysm. RIGHT POSTERIOR CEREBRAL ARTERY: Unremarkable. No occlusion or significant stenosis. No aneurysm. RIGHT INTRACRANIAL INTERNAL CAROTID ARTERY: Unremarkable. No significant stenosis. No dissection or occlusion. RIGHT INTRACRANIAL VERTEBRAL ARTERY: Unremarkable. No significant stenosis. No dissection or occlusion. LEFT ANTERIOR CEREBRAL ARTERY: Unremarkable. No significant stenosis at the visualized segments. No aneurysm. LEFT MIDDLE CEREBRAL ARTERY: Unremarkable. No significant stenosis at the visualized segments. No aneurysm. LEFT POSTERIOR CEREBRAL ARTERY: Unremarkable. No occlusion or significant stenosis. No aneurysm. LEFT INTRACRANIAL INTERNAL CAROTID ARTERY: Unremarkable. No significant stenosis. No dissection or occlusion. LEFT INTRACRANIAL VERTEBRAL ARTERY: Unremarkable. No significant stenosis. No dissection or occlusion. BASILAR ARTERY: Unremarkable. No significant stenosis. No aneurysm. OTHER VASCULATURE: See below. NECK: RIGHT COMMON CAROTID ARTERY: Unremarkable. No significant stenosis. No dissection or occlusion. RIGHT EXTRACRANIAL INTERNAL CAROTID ARTERY: 75% stenosis of the proximal right internal carotid artery. No dissection or occlusion. RIGHT EXTERNAL CAROTID ARTERY: Unremarkable. No occlusion. RIGHT EXTRACRANIAL VERTEBRAL ARTERY: Unremarkable. No significant stenosis. No dissection or occlusion. LEFT COMMON CAROTID ARTERY: Unremarkable. No significant stenosis. No dissection or occlusion. LEFT EXTRACRANIAL INTERNAL CAROTID ARTERY: Unremarkable. No significant stenosis. No dissection or occlusion. LEFT EXTERNAL CAROTID ARTERY: Unremarkable. No occlusion. LEFT EXTRACRANIAL VERTEBRAL ARTERY: Unremarkable. No significant stenosis. No dissection or occlusion. BRACHIOCEPHALIC AND SUBCLAVIAN ARTERIES: Unremarkable as visualized. No occlusion or significant stenosis. LUNG APICES: Unremarkable as visualized. HEAD and NECK: BONES/JOINTS: Unremarkable. No discrete lytic or blastic abnormalities. SOFT TISSUES: Unremarkable. CAROTID STENOSIS REFERENCE USING NASCET CRITERIA: % ICA stenosis = (1 - narrowest ICA diameter/diameter of distal cervical ICA) x 100. Mild - <50% stenosis. Moderate - 50-69% stenosis. Severe - 70-94% stenosis. Near occlusion - 95-99% stenosis. Occluded - 100% stenosis. * A single impression for all exams can be found at the end of this report EXAM: CT HEAD WITHOUT INTRAVENOUS CONTRAST CLINICAL INDICATION: vertigo, R sided paresthesias TECHNIQUE: Multiple axial images were obtained of the head without intravenous contrast. This CT exam was performed using one or more of the following dose reduction techniques: automated exposure control, adjustment of the mA and/or kV according to patient size, and/or use of iterative reconstruction technique. CONTRAST: IV 100mL Isovue-370 RADIATION DOSE: CTDIvol = 31.70 mGy, DLP = 1615.56 mGy-cm COMPARISON: No relevant prior studies available. FINDINGS: BRAIN AND EXTRA-AXIAL SPACES: Small chronic infarcts in the left parietal lobe with encephalomalacia. No intra- or extra-axial hemorrhage. No intracranial mass or mass effect. Posterior fossa structures are unremarkable. Ventricles are appropriate for age. No hydrocephalus. Basal cisterns are patent. BONES/JOINTS: Unremarkable. No discrete lytic or blastic abnormalities. SINUSES: Unremarkable as visualized. Clear. MASTOID AIR CELLS: Unremarkable. Clear. ORBITS: Visualized globes, extraocular muscles, optic nerves and retrobulbar fat appear unremarkable. * A single impression for all exams can be found at the end of this report CT/STROKE CTA Head AND Neck W/Con IMPRESSION: CT ANGIOGRAPHY HEAD AND NECK WITH INTRAVENOUS CONTRAST: % ICA stenosis = (1 - narrowest ICA diameter/diameter of distal cervical ICA) x 100.: Mild - <50% stenosis.: Moderate - 50-69% stenosis.: Severe - 70-94% stenosis.: Near occlusion - 95-99% stenosis.: Occluded - 100% stenosis.: 1. No large vessel occlusion, dissection, or other acute arterial abnormality identified on this CTA head/neck exam. 2. There is 75% stenosis of the proximal right internal carotid artery. CT HEAD WITHOUT INTRAVENOUS CONTRAST: No acute findings in the head/brain. Electronically Signed: Khalif Partida MD at 3:01 EDT ,
--- NOTE | 2023-06-08 01:54 | ED.VIS.STROK ---
HPI History of Present Illness Chief Complaint: Neuro S/Sx Informant: patient and EMS Narrative Narrative: Patient presents with generalized weakness at almost 2 AM. She states she got up to use the bathroom and was extremely dizzy, spinning, off balance and grabbed onto something to prevent her from falling. This is what made her call EMS to have her brought to the hospital. She states that yesterday, she thinks around 4:30 PM, increase in her chronic numbness of her right upper and lower extremities, and some discomfort in the antecubital fossa/arm on the right. That is persisted although not as bad now. She has a history of a prior stroke, and has right-sided chronic deficits with paresthesias since then. This past evening it was worse than usual but now it feels like it is back to baseline. She states the day before this past day, at 1 point she had a headache with an episode of vertigo but then it seemed to go away. Yesterday he had multiple points of the day, she would feel the vertigo/spinning whenever she would close her eyes. She states that she was admitted to the hospital couple weeks ago for a urinary tract infection and a COPD exacerbation, she was having burning with urination then. She states that is all better, her COPD has been stable, she has urinary frequency only because she has been drinking more fluids which she is doing purposefully, but no dysuria or other urinary symptoms or fever/chills. She presents here with a very low blood pressure. She is disoriented multiple times, reorienting herself, saying that she is kind of confused about some of the times that she lists above. [facility] Medical History ACTH deficiency Acute respiratory failure with hypoxia Allergic rhinitis Anemia Asthma Asthma exacerbation Atherosclerosis of coronary artery without angina pectoris Bilateral leg weakness Bone fracture Cardiomyopathy Carotid artery stenosis Carpal tunnel syndrome Chronic constipation with suspected IBS Chronic headaches Chronic systolic (congestive) heart failure CKD (chronic kidney disease) stage 3, GFR 30-59 ml/min Debility Depression Diabetes mellitus Embolic stroke Essential hypertension Falls Flash pulmonary edema (01/16/21) Gait difficulty Gallstones GERD (gastroesophageal reflux disease) GI problem Herpes simplex History of Clostridium difficile infection History of CVA (cerebrovascular accident) (2018) History of depression History of emotional problems History of ischemic colitis History of stroke Hx of diverticulitis of colon Hyperlipidemia Hyperlipidemia Hypertension Hypotension Hypothyroidism Hypothyroidism Irritable bowel syndrome Kidney disease Neuropathy Non-ischemic cardiomyopathy Normochromic normocytic anemia Normocytic anemia Obesity Osteoarthritis Osteopenia Osteoporosis Peripheral vascular disease Pulmonary edema Right hemiparesis Seasonal allergies Secondary adrenal insufficiency Stomach ulcer Stroke/cerebrovascular accident Trigeminal trophic syndrome Type 2 diabetes mellitus Home Medications multivitamin 1 tab PO DAILY vitamin 12/29/17 [History Last Taken 09/10/22] pantoprazole 40 mg tablet,delayed release 40 mg PO BID GERD 03/29/19 [History Last Taken 09/10/22] amitriptyline 25 mg tablet 25 mg PO QHS mood 08/10/19 [History Last Taken 09/10/22] rosuvastatin 20 mg tablet (Crestor) 20 mg PO QHS cholesterol 08/25/19 [History Last Taken 09/10/22] sitagliptin phosphate 50 mg tablet (Januvia) 50 mg PO DAILY diabetes 09/04/19 [History Last Taken 09/10/22] duloxetine 60 mg capsule,delayed release 60 mg PO BID nerve pain 10/19/20 [History Last Taken 09/10/22] valacyclovir 500 mg tablet (Valtrex) 500 mg PO DAILY cold soars 10/19/20 [History Last Taken 09/10/22] tizanidine 4 mg tablet (Zanaflex) 4 mg PO Q8H PRN Muscle Spasm 01/26/21 [History Last Taken 09/10/22] ascorbate calcium (vitamin C) 500 mg tablet 500 mg PO DAILY vitamin 01/27/21 [History Last Taken 09/10/22] calcium carbonate 600 mg-vitamin D3 12.5 mcg (500 unit) capsule (Calcium 600 with Vitamin D3) 1 cap PO DAILY supplement 01/27/21 [History Last Taken 09/10/22] magnesium oxide 400 mg PO DAILY supplement 01/27/21 [History Last Taken 09/10/22] Lactobacillus rhamnosus GG 10 billion cell capsule (Culturelle) 1 cap PO DAILY 05/18/21 [History Last Taken 09/10/22] pregabalin 100 mg capsule 100 mg PO DAILY Nerve pain 05/18/21 [History Last Taken 09/10/22] carvedilol 25 mg tablet (Coreg) 25 mg PO BID BP 08/23/21 [History Last Taken 09/10/22] fluticasone 100 mcg-salmeterol 50 mcg/dose blistr powdr for inhalation (Advair Diskus) 1 inh inhalation BID Breathing 02/11/22 [History Last Taken 09/10/22] sacubitril 49 mg-valsartan 51 mg tablet (Entresto) 1 tab PO BID Heart 02/11/22 [History Last Taken 09/10/22] alendronate 70 mg tablet 70 mg PO TU BONES 02/13/22 [History Last Taken 09/05/22] cetirizine 10 mg tablet (Zyrtec) 10 mg PO DAILY ALLERGIES 02/13/22 [History Last Taken 09/10/22] aspirin 81 mg tablet,delayed release 81 mg PO DAILY@0800 Heart health 02/15/22 [History Last Taken 09/10/22] zinc 50 mg PO/SL DAILY 05/10/22 [History Last Taken 09/10/22] dicyclomine 20 mg tablet 20 mg PO TIDCM 09/11/22 [History Last Taken 09/10/22] guaifenesin 600 mg tablet, extended release 12 hr (Mucinex) 1,200 mg PO BID 09/11/22 [History Last Taken 09/10/22] levothyroxine 112 mcg tablet 112 mcg PO DAILY 09/11/22 [History Last Taken 09/10/22] apixaban 5 mg tablet (Eliquis) 5 mg PO BID 30 days #60 tabs 09/18/22 [Rx Last Taken Unknown] hydralazine 25 mg tablet 25 mg PO BID #180 TABLETS 05/14/23 [Rx Last Taken Unknown] benzonatate 100 mg capsule 100 mg PO Q8H PRN cough 05/28/23 [History Last Taken Unknown] venlafaxine 75 mg tablet 75 mg PO DAILY depression 05/28/23 [History Last Taken Unknown] fluticasone 500 mcg-salmeterol 50 mcg/dose blistr powdr for inhalation (Advair Diskus) 1 inh inhalation BID breathing 05/29/23 [History Last Taken Unknown] venlafaxine 75 mg tablet 150 mg PO QHS depression 05/29/23 [History Last Taken Unknown] Allergy/AdvReac Type Severity Reaction Status Date / Time adhesive Allergy skin Verified 06/08/23 01:43 irritation amlodipine [From [facility]] Allergy tachycardia Verified 06/08/23 01:43 hydromorphone HCl Allergy Itching Verified 06/08/23 01:43 [From Dilaudid] sulfamethoxazole Allergy made my Verified 06/08/23 01:43 [From Bactrim] cold sore huge trimethoprim [From Bactrim] Allergy made my Verified 06/08/23 01:43 cold sore huge Family History Grandfather Alcoholism Grandmother Myocardial infarction Mother Arthritis Diverticulitis COPD (chronic obstructive pulmonary disease) Afib Thyroid disorder Father Arthritis Diabetes Myocardial infarction Heart disease Ischemic Hypertension Hyperlipidemia Brother Arthritis Aunt Breast cancer Sister Arthritis Thyroid disorder Skin cancer Uncle Diabetes Surgical History Ankle fracture Fracture of left femur History of angioplasty of peripheral vessel (2010) History of arthroscopic knee surgery History of back surgery History of bilateral knee replacement History of carpal tunnel release History of cholecystectomy History of intestine removal History of left heart catheterization (2011) History of tonsillectomy and adenoidectomy History of trigger finger History of ventral hernia repair Strangulated ventral hernia Social History household members: none Smoking Status: Former smoker how long ago did patient quit smokin alcohol intake: never substance use type: does not use what type of physical activity do you participate in: other ROS ROS ED Constitutional Constitutional ED: Reports malaise; Denies chills or fever(s) Eyes Eyes: Reports photophobia; Denies change in vision or diplopia ENT ENT ED: Reports disequillibrium, dizziness and vertigo; Denies ear pain, hearing loss, rhinorrhea, sore throat or tinnitus Cardiovascular Cardiovascular: Denies chest pain or palpitations Respiratory/Chest Respiratory/Chest: Reports cough; Denies dyspnea Gastrointestinal Gastrointestinal: Reports nausea; Denies abdominal pain, diarrhea, hematemesis, hematochezia, melena or vomiting Genitourinary Genitourinary ED: Reports urinary frequency; Denies dysuria or hematuria Musculoskeletal Musculoskeletal: Denies back pain or neck pain Integumentary Denies abscess or rash Neurologic Neurologic: Reports paresthesias RUE and RLE; Denies headache(s) or weakness Psychiatric Psychiatric: Denies anxiety or suicidal thoughts Endocrine Endocrinology: Reports polydipsia and polyuria EXAM Physical Exam Const Vital Signs: 06/08/23 01:29 06/08/23 02:09 06/08/23 02:12 Temperature 96.8 F L 97.2 F L Temperature Source Temporal Temporal Pulse Rate 69 62 Respiratory Rate 16 17 Blood Pressure 52/32 L 66/41 L Blood Pressure Mean 38 49 Pulse Ox 97 100 Oxygen Delivery Method Room Air Room Air Room Air 06/08/23 03:00 06/08/23 03:16 06/08/23 04:00 Temperature 97.4 F L 97.4 F L Temperature Source Temporal Temporal Pulse Rate 64 64 65 Respiratory Rate 19 H 12 15 Blood Pressure 100/61 85/49 L 90/53 L Blood Pressure Mean 74 61 65 Pulse Ox 99 97 Oxygen Delivery Method Room Air Room Air Positive well nourished, well developed and obese General Appearance ED: well developed and NAD Nutritional Appearance: obese HEENT Reports TM's clear and moist mucous membranes normocephalic and atraumatic Tympanic Membrane ED: Yes TM's clear Eyes PERRL and EOMs intact bilaterally Neck full ROM and supple Chest Wall inspection of chest normal and palpation of chest normal Resp normal respiratory effort and clear to auscultation bilaterally Cardio regular rate, regular rhythm and no murmurs GI non-tender and non-distended Auscultation: normoactive bowel sounds Palpation: soft Back/Spine no CVA tenderness General Back: other FROM Extremity normal to inspection General Extremety ED: Negative for edema, pulses abnormal or tenderness General Extremity: Negative for edema or pulses abnormal Neuro oriented x3 and CN's II-XII intact bilaterally Neuro Narrative: No gross sensory deficits, subjectively decreased right upper and lower extremities compared to contralateral side, but at baseline according to her. Sensorium / Orientation: awake and alert Motor Exam: strength 5/5 throughout Skin no rashes or lesions noted Skin Narrative: Minor superficial left lower leg anterior wounds, do not appear to be infected NIHSS NIHSS Initial: 1a Level of Consciousness: 0 1b LOC Questions (Score 2 if aphasic/stupor): 0 1c LOC Commands (Only score 1st attempt): 0 2 Best Gaze (If aphasic, use reflexive mvmts.): 0 3 Visual: 0 4 Facial Palsy: 0 5 Motor Arm Right (UN = amputation/fusion): 0 5 Motor Arm Left: 0 6 Motor Leg Right: 0 6 Motor Leg Left: 0 7 Limb ataxia (Only + if out of proportion): 0 8 Sensory (Aphasia/stupor=0 or 1, coma=2): 1 9 Best Language: 0 10 Dysarthria (mute, coma=2, intubated=UN): 0 11 Extinction and Inattention (only scored if +): 0 Total Score: 1 MDM MDM MDM Narrative Medical decision making narrative: This patient is very hypotensive upon arrival, with systolics as low as 40s. She looks clinically better than this. She states her pressure drops like this when I get sick. She has had no recent symptoms of an acute illness however. Septic work-up obtained and she was given a liter of IV fluid bolus in the meantime, and sent for CT angiography of the head and neck along with a plain CT which shows no hemorrhage on my interpretation of the images. Her creatinine is up a little compared with her last 1, but still less than she typically is. Her white blood count is in the normal range at 8.5, she does have a few bands. Looking at her EMR records she has a history of possibly low ACTH, which may equate to adrenal insufficiency. Given this, I sent a cortisol level prior to giving her hydrocortisone 100 mg, in addition to the IV fluids. Her pressure gradually came up. Her cortisol returned at 6.0, this was random at about 2 AM, within the normal limits at the low end. Her lactate returned within normal limits, urinalysis negative for infection, patient has no symptoms or findings of an acute infection objectively. Blood cultures were sent. With nothing but IV fluids as far as treatment, she states that her disequilibrium is gone, she cannot open her eyes without any dizziness. Unclear if she was having central vertigo and/or TIA, which may have been related to low flow from hypotension, she states her blood pressure normally is systolic 80-100, she still a little low in the 70s at this time. I discussed pros and cons of a central line since the patient had a peripheral line here that blew with the CT angiography, she is notoriously very difficult stick. She understands all that, she declines central line if it is safe to do so, so I am having nursing attempt ultrasound-guided placement of a new peripheral IV, and plan is for admission to inpatient observation. BP improved now at 90/53. This is at patient's baseline according to her. Given this and the ancillaries which really looks stable, I do not think she needs a central line at this time nor pressors. Discussed with hospitalist for observing patient inpatient, she is complicated and her pressure was very low. History & Record Review Additional record(s) reviewed:: Prior inpatient record, Prior outpatient record (Nonischemic cardiomyopathy with EF 55-60% mild mitral regurgitation) and Prior labs Lab Data Attestation: I reviewed the patient's lab results. Labs: Laboratory Results - last 24 hr 06/08/23 06/08/23 06/08/23 01:43 02:10 02:45 WBC 8.5 RBC 2.61 L Hgb 8.2 L Hct 25.8 L MCV 98.9 MCH 31.4 MCHC 31.8 L RDW Std Deviation 56.1 H RDW Coeff of Lencho 16.6 H Plt Count 191 MPV 9.9 Immature Gran % (Auto) 1.500 H Neut % (Auto) 66.6 Lymph % (Auto) 23.1 [place] % (Auto) 5.8 Eos % (Auto) 2.8 Baso % (Auto) 0.2 Absolute Neuts (auto) 5.7 Absolute Lymphs (auto) 1.96 Nucleated RBC % 0 PT 17.8 H INR 1.5 APTT 38.8 H Sodium 135 L Potassium 3.9 Chloride 103 Carbon Dioxide 24.0 Anion Gap 8 BUN 18 Creatinine 1.39 H Estim Creat Clear Calc 36.24 Est GFR (MDRD) Af Amer 49 L Est GFR (MDRD) Non-Af 41 L BUN/Creatinine Ratio 12.9 Glucose 146 H Lactic Acid 1.0 Calcium 8.5 Total Bilirubin 0.40 AST 18 ALT 54 Alkaline Phosphatase 47 Troponin I High Sens 11 Total Protein 5.7 L Albumin 2.6 L Globulin 3.1 Albumin/Globulin Ratio 0.8 L Cortisol 6.00 Urine Color Yellow Urine Clarity Clear Urine pH 5.0 Ur Specific [place] 1.015 Urine Protein 15 H Urine Glucose (UA) Normal Urine Ketones Negative Urine Occult Blood Negative Urine Nitrite Negative Urine Bilirubin Negative Urine Urobilinogen Normal Ur Leukocyte Esterase Negative Urine RBC 0 SEEN Urine WBC 0 SEEN Ur Squamous Epith Cells 0 SEEN Urine Bacteria 0 SEEN Urine Mucus 0 SEEN Radiography Chest X-Ray - ED: 1 View, Read by ED Physician, No Acute Disease, Chronic Changes and No Infiltrates Diagnostic Testing: Clinical Impression(s) from Imaging Studies Chest X-Ray 06/08/23 01:51 IMPRESSION: Some residual partial collapse of the right upper lobe. A central obstructing lesion is not excluded. A follow-up chest CT is recommended. Electronically Signed: Khalif Partida MD at 2:52 EDT Reading Location ID and State: [address] [place] [address] Tel , Service support , Head/Neck CTA 06/08/23 01:51 IMPRESSION: CT ANGIOGRAPHY HEAD AND NECK WITH INTRAVENOUS CONTRAST: % ICA stenosis = (1 - narrowest ICA diameter/diameter of distal cervical ICA) x 100.: Mild - <50% stenosis.: Moderate - 50-69% stenosis.: Severe - 70-94% stenosis.: Near occlusion - 95-99% stenosis.: Occluded - 100% stenosis.: 1. No large vessel occlusion, dissection, or other acute arterial abnormality identified on this CTA head/neck exam. 2. There is 75% stenosis of the proximal right internal carotid artery. CT HEAD WITHOUT INTRAVENOUS CONTRAST: No acute findings in the head/brain. Electronically Signed: Khalif Partida MD at 3:01 EDT Reading Location ID and State: [facility] [place] Tel , Service support , ADDENDUM: 06/08/23 0310 IMPRESSION: CT ANGIOGRAPHY HEAD AND NECK WITH INTRAVENOUS CONTRAST: % ICA stenosis = (1 - narrowest ICA diameter/diameter of distal cervical ICA) x 100.: Mild - <50% stenosis.: Moderate - 50-69% stenosis.: Severe - 70-94% stenosis.: Near occlusion - 95-99% stenosis.: Occluded - 100% stenosis.: 1. No large vessel occlusion, dissection, or other acute arterial abnormality identified on this CTA head/neck exam. 2. There is 75% stenosis of the proximal right internal carotid artery. CT HEAD WITHOUT INTRAVENOUS CONTRAST: No acute findings in the head/brain. N.B. : The above Results were Read Back by Khalif Partida MD to Derick Alcantara MD, and understanding confirmed on 06/08/2023 03:03:24 (ET). Electronically Signed: Khalif Partida MD at 3:01 EDT , Rhythm Strip Rhythm Strip: Sinus Rhythm Rate: 65 Ectopy: None EKG Initial EKG: Attestation: I personally reviewed and interpreted this EKG as follows: Interpretation: Sinus Rhythm and No Acute Injury Pattern Comments: nml EKG Management Discussion w/another healthcare provider: Hospitalist Stroke Documentation Questions Stroke Team Activated: No (Due to confusion with timing, nondisabling deficits, NIH 1 with sx@baseline) Was Patient considered for Endovascular Intervention?: No-CTA negative, determined not to be an endovascular candidate Discharge Plan Dx/Rx/DC Orders Clinical Impression: Transient hypotension, Brain TIA, Dysequilibrium, Anticoagulated Disposition Disposition: Acute Care Hospital [facility]
[2023-06-08] MEDS: 0.9% Normal Saline 1,000 ML 999 ML IV ×2 (02:01→04:06)
[2023-06-08 02:11] LABS: Absolute Lymphocyte Count 1.96 X10^3/uL (0.83-4.51); Absolute Neutrophil Count 5.7 X10^3/uL (2.0-7.7); Basophil# 0.02 X10^3/uL; Basophil% 0.2 % (0-1); Eosinophil# 0.24 X10^3/uL; Eosinophils% 2.8 % (0-5); Hematocrit 25.8 % (37-47); Hemoglobin 8.2 g/dL (12.0-15.0); Lymphocyte # 1.96 X10^3/ul (0.83-4.51); Lymphocyte % 23.1 % (19-41); Mean Corp Hgb Conc 31.8 g/dL (32-36); Mean Corpuscular Hgb 31.4 pg (27.0-32.0); Mean Corpuscular Volume 98.9 fL (81-99); Mean Platelet Vol. 9.9 fl (6.2-12.0); Monocyte# 0.49 X10^3/uL; Monocyte% 5.8 % (0-10); NRBC Flagged by Analyzer 0 % (0-5); Neutrophil # 5.66 X10^3/uL (2.7-7.7); Neutrophil % 66.6 % (47-70); Platelet Count 191 K/mm3 (150-450); RBC Distribution Width CV 16.6 % (11.6-14.6); RBC Distribution Width SD 56.1 fl (35.1-43.9); Red Blood Count 2.61 M/mm3 (4.2-5.4); White Blood Count 8.5 K/mm3 (4.4-11.0)
[2023-06-08 02:24] LABS: International Normalized Ratio 1.5; Prothrombin Time (Protime)PT. 17.8 SECONDS (11.7-14.9)
[2023-06-08 02:25] LABS: Partial Thromboplast Time 38.8 Seconds (24.1-36.2)
[2023-06-08 02:30] LABS: ALB/GLOB Ratio 0.8 RATIO (0.9-2.4); AST(SGOT) 18 U/L (15-37); Alanine Aminotransfer ALT/SGPT 54 U/L (13-56); Albumin, Serum 2.6 g/dL (3.2-5.0); Alkaline Phosphatase 47 U/L (45-117); Anion Gap 8 (5-15); BUN 18 mg/dL (7-18); BUN/Creat Ratio 12.9 RATIO (10-20); Calcium,Total 8.5 mg/dL (8.5-10.1); Chloride 103 mmol/L (98-107); Creatinine, Serum 1.39 mg/dL (0.55-1.02); EST Glomerular Filtration Rate 41 mL/min (>60); Est Glom Filt Rate - Afr Amer 49 mL/min (>60); Estimated Creatinine Clearance 36.24 ml/min; Globulin 3.1 g/dL (2.2-4.2); Glucose 146 mg/dL (74-106); Potassium 3.9 mmol/L (3.5-5.1); Protein, Total 5.7 g/dL (6.4-8.2); Sodium Level 135 mmol/L (136-145); Troponin-I HS 11 pg/mL (3.0-54.0)
[2023-06-08] MEDS: Hydrocortisone Sod Succinate 100 MG/2 ML Vial IV (02:44)
[2023-06-08 02:48] LABS: Bacteria 0 SEEN /hpf (None Seen); Mucous, Urine 0 SEEN /hpf (<or=2+); Red Blood Cells-Urine 0 SEEN /hpf (0-5); Squamous Epithelial Cells - UA 0 SEEN /hpf (5-10); White Blood Cells 0 SEEN /hpf (0-5)
[2023-06-08 02:50] LABS: Color, Urine Yellow (Yellow); Glucose, Dipstick Normal (Normal); Ketone-Dipstick Negative (Negative); Leukocyte Esterase-Dipstick Negative /ul (Negative); Nitrite-Dipstick Negative (Negative); Occult Blood-Urine Negative /ul (Negative); Protein-Dipstick 15 mg/dl (Negative); Specific Gravity, Urine 1.015 (1.002-1.030); Urine Bilirubin Dipstick Negative (Negative); Urine Clarity Clear (Clear); Urine Urobilinogen Normal (Normal)
--- NOTE | 2023-06-08 04:46 | PCM.HP.STD ---
HPI - General General Date of Admission: 06/08/23 HPI Narrative BILL CHOI, is a 62 F who presents to the hospital with headaches and dizziness. She was recently admitted for UTI and has been feeling well since then and denies any new illnesses with fevers or chills since her previous discharge. On Sunday she noticed some lightheadedness dizziness as well as a headache which resolved and then night it recurred and was significant enough that she was able to make it to the bed and called 911. On arrival her systolic blood pressures were in the 50s and she was given IV fluids with subsequent recovery of her pressures. She is feeling much better. She has noticed that she has wide variations in her blood pressure anywhere between [address] into 200s systolic past. No signs of infection currently she denies any abdominal pain. No current neurological issues, she denies any weakness or decreased sensation more so than baseline. COUNTS INCLUDE 234 BEDS AT THE [facility] Medical History ACTH deficiency Acute respiratory failure with hypoxia Allergic rhinitis Anemia Asthma Asthma exacerbation Atherosclerosis of coronary artery without angina pectoris Bilateral leg weakness Bone fracture Cardiomyopathy Carotid artery stenosis Carpal tunnel syndrome Chronic constipation with suspected IBS Chronic headaches Chronic systolic (congestive) heart failure CKD (chronic kidney disease) stage 3, GFR 30-59 ml/min Debility Depression Diabetes mellitus Embolic stroke Essential hypertension Falls Flash pulmonary edema (01/16/21) Gait difficulty Gallstones GERD (gastroesophageal reflux disease) GI problem Herpes simplex History of Clostridium difficile infection History of CVA (cerebrovascular accident) (2018) History of depression History of emotional problems History of ischemic colitis History of stroke Hx of diverticulitis of colon Hyperlipidemia Hyperlipidemia Hypertension Hypotension Hypothyroidism Hypothyroidism Irritable bowel syndrome Kidney disease Neuropathy Non-ischemic cardiomyopathy Normochromic normocytic anemia Normocytic anemia Obesity Osteoarthritis Osteopenia Osteoporosis Peripheral vascular disease Pulmonary edema Right hemiparesis Seasonal allergies Secondary adrenal insufficiency Stomach ulcer Stroke/cerebrovascular accident Trigeminal trophic syndrome Type 2 diabetes mellitus Home Medications multivitamin 1 tab PO DAILY vitamin 12/29/17 [History Last Taken 09/10/22] pantoprazole 40 mg tablet,delayed release 40 mg PO BID GERD 03/29/19 [History Last Taken 09/10/22] amitriptyline 25 mg tablet 25 mg PO QHS mood 08/10/19 [History Last Taken 09/10/22] rosuvastatin 20 mg tablet (Crestor) 20 mg PO QHS cholesterol 08/25/19 [History Last Taken 09/10/22] sitagliptin phosphate 50 mg tablet (Januvia) 50 mg PO DAILY diabetes 09/04/19 [History Last Taken 09/10/22] duloxetine 60 mg capsule,delayed release 60 mg PO BID nerve pain 10/19/20 [History Last Taken 09/10/22] valacyclovir 500 mg tablet (Valtrex) 500 mg PO DAILY cold soars 10/19/20 [History Last Taken 09/10/22] tizanidine 4 mg tablet (Zanaflex) 4 mg PO Q8H PRN Muscle Spasm 01/26/21 [History Last Taken 09/10/22] ascorbate calcium (vitamin C) 500 mg tablet 500 mg PO DAILY vitamin 01/27/21 [History Last Taken 09/10/22] calcium carbonate 600 mg-vitamin D3 12.5 mcg (500 unit) capsule (Calcium 600 with Vitamin D3) 1 cap PO DAILY supplement 01/27/21 [History Last Taken 09/10/22] magnesium oxide 400 mg PO DAILY supplement 01/27/21 [History Last Taken 09/10/22] Lactobacillus rhamnosus GG 10 billion cell capsule (Culturelle) 1 cap PO DAILY 05/18/21 [History Last Taken 09/10/22] pregabalin 100 mg capsule 100 mg PO DAILY Nerve pain 05/18/21 [History Last Taken 09/10/22] carvedilol 25 mg tablet (Coreg) 25 mg PO BID BP 08/23/21 [History Last Taken 09/10/22] fluticasone 100 mcg-salmeterol 50 mcg/dose blistr powdr for inhalation (Advair Diskus) 1 inh inhalation BID Breathing 02/11/22 [History Last Taken 09/10/22] sacubitril 49 mg-valsartan 51 mg tablet (Entresto) 1 tab PO BID Heart 02/11/22 [History Last Taken 09/10/22] alendronate 70 mg tablet 70 mg PO TU BONES 02/13/22 [History Last Taken 09/05/22] cetirizine 10 mg tablet (Zyrtec) 10 mg PO DAILY ALLERGIES 02/13/22 [History Last Taken 09/10/22] aspirin 81 mg tablet,delayed release 81 mg PO DAILY@0800 Heart health 02/15/22 [History Last Taken 09/10/22] zinc 50 mg PO/SL DAILY 05/10/22 [History Last Taken 09/10/22] dicyclomine 20 mg tablet 20 mg PO TIDCM 09/11/22 [History Last Taken 09/10/22] guaifenesin 600 mg tablet, extended release 12 hr (Mucinex) 1,200 mg PO BID 09/11/22 [History Last Taken 09/10/22] levothyroxine 112 mcg tablet 112 mcg PO DAILY 09/11/22 [History Last Taken 09/10/22] apixaban 5 mg tablet (Eliquis) 5 mg PO BID 30 days #60 tabs 09/18/22 [Rx Last Taken Unknown] hydralazine 25 mg tablet 25 mg PO BID #180 TABLETS 05/14/23 [Rx Last Taken Unknown] benzonatate 100 mg capsule 100 mg PO Q8H PRN cough 05/28/23 [History Last Taken Unknown] venlafaxine 75 mg tablet 75 mg PO DAILY depression 05/28/23 [History Last Taken Unknown] fluticasone 500 mcg-salmeterol 50 mcg/dose blistr powdr for inhalation (Advair Diskus) 1 inh inhalation BID breathing 05/29/23 [History Last Taken Unknown] venlafaxine 75 mg tablet 150 mg PO QHS depression 05/29/23 [History Last Taken Unknown] Allergy/AdvReac Type Severity Reaction Status Date / Time adhesive Allergy skin Verified 06/08/23 01:43 irritation amlodipine [From Norvasc] Allergy tachycardia Verified 06/08/23 01:43 hydromorphone HCl Allergy Itching Verified 06/08/23 01:43 [From Dilaudid] sulfamethoxazole Allergy made my Verified 06/08/23 01:43 [From Bactrim] cold sore huge trimethoprim [From Bactrim] Allergy made my Verified 06/08/23 01:43 cold sore huge Family History Grandfather Alcoholism Grandmother Myocardial infarction Mother Arthritis Diverticulitis COPD (chronic obstructive pulmonary disease) Afib Thyroid disorder Father Arthritis Diabetes Myocardial infarction Heart disease Ischemic Hypertension Hyperlipidemia Brother Arthritis Aunt Breast cancer Sister Arthritis Thyroid disorder Skin cancer Uncle Diabetes Surgical History Ankle fracture Fracture of left femur History of angioplasty of peripheral vessel (2010) History of arthroscopic knee surgery History of back surgery History of bilateral knee replacement History of carpal tunnel release History of cholecystectomy History of intestine removal History of left heart catheterization (2011) History of tonsillectomy and adenoidectomy History of trigger finger History of ventral hernia repair Strangulated ventral hernia Social History household members: none Smoking Status: Former smoker how long ago did patient quit smokin alcohol intake: never substance use type: does not use what type of physical activity do you participate in: other ROS Constitutional Constitutional: Denies chills, fatigue, fever(s) or malaise Eyes Eyes: Denies blurry vision ENT HEENT: Denies headache(s) or nasal discharge Cardiovascular Cardiovascular: Reports lightheadedness; Denies chest pain, dyspnea on exertion or syncope Respiratory/Chest Respiratory/Chest: Denies cough, shortness of breath at rest or shortness of breath with exertion Gastrointestinal Gastrointestinal: Denies constipation, diarrhea, nausea or vomiting Genitourinary Genitourinary: Denies dysuria Neurologic Neurologic: Reports headache(s); Denies focal weakness, numbness or tremor(s) Psychiatric Psychiatric: Denies anxiety or depression Vital Signs Vital Signs Vital Signs: 06/08/23 01:29 06/08/23 02:09 06/08/23 02:12 Temperature 96.8 F L 97.2 F L Temperature Source Temporal Temporal Pulse Rate 69 62 Respiratory Rate 16 17 Blood Pressure 52/32 L 66/41 L Blood Pressure Mean 38 49 Pulse Ox 97 100 Oxygen Delivery Method Room Air Room Air Room Air 06/08/23 03:00 06/08/23 03:16 06/08/23 04:00 Temperature 97.4 F L 97.4 F L Temperature Source Temporal Temporal Pulse Rate 64 64 65 Respiratory Rate 19 H 12 15 Blood Pressure 100/61 85/49 L 90/53 L Blood Pressure Mean 74 61 65 Pulse Ox 99 97 Oxygen Delivery Method Room Air Room Air 06/08/23 04:20 Temperature 97.6 F L Temperature Source Temporal Pulse Rate 70 Respiratory Rate 29 H Blood Pressure 80/51 L Blood Pressure Mean 60 Pulse Ox 98 Oxygen Delivery Method Room Air Weight Weight: 232 lb 2.348 oz Body Mass Index (BMI) 39.8 Physical Exam Narrative General: Alert, Oriented x3, Cooperative, No apparent distress HEENT: Atraumatic, PERRLA, EOMI, Normocephalic Oral: Moist Mucosa Neck: Supple, No JVD Lungs: Clear to auscultation, Normal air movement, No rhonchi, No wheeze, No rales Cardiovascular: Regular rate, Regular Rhythm, Normal S1, Normal S2, No murmurs Abdomen: Soft, Non Tender, Non-Distended, No Hepato-splenomegaly Extremities: No edema, Capillary Refill Less than 3 Seconds Skin: No rashes, No breakdown Musculoskeletal: No Tenderness to Palpation of Joints or Extremities Neurological: Cranial nerves II-XII grossly intact, right upper extremity with decreased sensation and improved hall director strength. Improvement in her fine motor skills Psych/Mental Status: Normal Affect, Appropriate Results Lab / Micro Data 06/08/23 01:43 06/08/23 01:43 Labs: Laboratory Results - last 24 hr 06/08/23 01:43: WBC 8.5, RBC 2.61 L, Hgb 8.2 L, Hct 25.8 L, MCV 98.9, MCH 31.4, MCHC 31.8 L, RDW Std Deviation 56.1 H, RDW Coeff of Lencho 16.6 H, Plt Count 191, MPV 9.9, Immature Gran % (Auto) 1.500 H, Neut % (Auto) 66.6, Lymph % (Auto) 23.1, Schley % (Auto) 5.8, Eos % (Auto) 2.8, Baso % (Auto) 0.2, Absolute Neuts (auto) 5.7, Absolute Lymphs (auto) 1.96, Nucleated RBC % 0, PT 17.8 H, INR 1.5, APTT 38.8 H, Sodium 135 L, Potassium 3.9, Chloride 103, Carbon Dioxide 24.0, Anion Gap 8, BUN 18, Creatinine 1.39 H, Estim Creat Clear Calc 36.24, Est GFR (MDRD) Af Amer 49 L, Est GFR (MDRD) Non-Af 41 L, BUN/Creatinine Ratio 12.9, Glucose 146 H, Calcium 8.5, Total Bilirubin 0.40, AST 18, ALT 54, Alkaline Phosphatase 47, Troponin I High Sens 11, Total Protein 5.7 L, Albumin 2.6 L, Globulin 3.1, Albumin/Globulin Ratio 0.8 L 06/08/23 02:10: Lactic Acid 1.0, Cortisol 6.00 06/08/23 02:45: Urine Color Yellow, Urine Clarity Clear, Urine pH 5.0, Ur Specific [place] 1.015, Urine Protein 15 H, Urine Glucose (UA) Normal, Urine Ketones Negative, Urine Occult Blood Negative, Urine Nitrite Negative, Urine Bilirubin Negative, Urine Urobilinogen Normal, Ur Leukocyte Esterase Negative, Urine RBC 0 SEEN, Urine WBC 0 SEEN, Ur Squamous Epith Cells 0 SEEN, Urine Bacteria 0 SEEN, Urine Mucus 0 SEEN Rhythm Strip Rhythm Strip: Sinus Rhythm Rate: 65 Ectopy: None Radiology Impression Chest X-Ray 06/08/23 01:51 IMPRESSION: Some residual partial collapse of the right upper lobe. A central obstructing lesion is not excluded. A follow-up chest CT is recommended. Electronically Signed: Khalif Partida MD at 2:52 EDT Reading Location ID and State: [facility] / [place] Tel , Service support , Head/Neck CTA 06/08/23 01:51 IMPRESSION: CT ANGIOGRAPHY HEAD AND NECK WITH INTRAVENOUS CONTRAST: % ICA stenosis = (1 - narrowest ICA diameter/diameter of distal cervical ICA) x 100.: Mild - <50% stenosis.: Moderate - 50-69% stenosis.: Severe - 70-94% stenosis.: Near occlusion - 95-99% stenosis.: Occluded - 100% stenosis.: 1. No large vessel occlusion, dissection, or other acute arterial abnormality identified on this CTA head/neck exam. 2. There is 75% stenosis of the proximal right internal carotid artery. CT HEAD WITHOUT INTRAVENOUS CONTRAST: No acute findings in the head/brain. Electronically Signed: Khalif Partida MD at 3:01 EDT , ADDENDUM: 06/08/23 0310 IMPRESSION: CT ANGIOGRAPHY HEAD AND NECK WITH INTRAVENOUS CONTRAST: % ICA stenosis = (1 - narrowest ICA diameter/diameter of distal cervical ICA) x 100.: Mild - <50% stenosis.: Moderate - 50-69% stenosis.: Severe - 70-94% stenosis.: Near occlusion - 95-99% stenosis.: Occluded - 100% stenosis.: 1. No large vessel occlusion, dissection, or other acute arterial abnormality identified on this CTA head/neck exam. 2. There is 75% stenosis of the proximal right internal carotid artery. CT HEAD WITHOUT INTRAVENOUS CONTRAST: No acute findings in the head/brain. N.B. : The above Results were Read Back by Khalif Partida MD to Derick Alcantara MD, and understanding confirmed on 06/08/2023 03:03:24 (ET). Electronically Signed: Khalif Partida MD at 3:01 EDT , Assessment & Plan Assessment/Plan (1) Transient hypotension: PLAN: Plan 1. Transient hypotension ? Differential diagnosis is fairly broad she does have evidence of ACTH deficiency with normal cortisol since 2019 ? She does have a history of hypertension and she is on Coreg as well as hydralazine and Entresto ? She does have a history of previous CVAs though there is no new neurological findings currently and she had improvement with IV fluids ? Another aspect of her differential could be medications, she is currently on Elavil, Cymbalta twice daily, Effexor twice daily. Will discontinue her amitriptyline completely and will decrease her him Cymbalta down to daily dosing continue with her Effexor ultimately to wean her Cymbalta off as a outpatient. Actually this is the most appropriate initial step for her hypotension given the risk of medication interaction. 2. HTN/HLD/right carotid stenosis/chronic systolic CHF ? We will hold her blood pressure medications right now ? Continue with her cholesterol medications 3. Type 2 diabetes ? We will hold her home medications ? We will place her on a sliding scale insulin ? Accu-Cheks ACHS ? We will make adjustments as necessary 4. COPD ? Not in exacerbation ? Continue with inhalers 5. GERD ? Stable ? Continue with PPI 6. Anxiety/depression ? Stable ? We will discontinue her Elavil and decrease her Cymbalta and continue with her Effexor DVT: Snehal 75 minutes was spent on direct patient care, including documentation as well as chart review and collaboration with colleagues Charges/Coding Visit Charges Inpatient E&M: 16174 Init Hosp L3
[2023-06-08] MEDS: Levothyroxine 112 MCG Tablet PO (05:29)
[2023-06-08] MEDS: 0.9% Normal Saline 1,000 ML 100 ML IV (05:30)
[2023-06-08] MEDS: Insulin Lispro 100 UNIT/ML INSULN.PEN SC ×2 (06:35→11:31)
[2023-06-08 06:57] LABS: Bedside Glucose 178 mg/dL (74-106)
[2023-06-08] MEDS: Pantoprazole Sodium 40 MG Tablet PO (10:07)
[2023-06-08] MEDS: Ascorbic Acid 500 MG Tablet PO (10:07)
[2023-06-08] MEDS: Aspirin E.C. 81 MG Tablet PO (10:07)
[2023-06-08] MEDS: Calcium Carb/Vitamin D 1 TABLET Tablet PO (10:07)
[2023-06-08] MEDS: Dicyclomine 10 MG Capsule 20 MG PO ×2 (10:07→11:32)
[2023-06-08] MEDS: Venlafaxine HCl 75 MG Tablet PO (10:08)
[2023-06-08] MEDS: DULoxetine Hcl 60 MG Capsule PO (10:08)
[2023-06-08] MEDS: APIXABAN 5 MG TABLET PO (10:08)
[2023-06-08] MEDS: Pregabalin 50 MG Capsule 100 MG PO (10:10)
[2023-06-08 11:56] LABS: Bedside Glucose 224 mg/dL (74-106)
--- NOTE | 2023-06-08 13:54 | DCINST_ITS ---
Discharge Instructions Diet Discharge Diet: 1800 Calorie Control Diet Activity Discharge Activity: Return to Normal Activity Weight Bearing Status: Full weight bearing Follow Up Care Test Results: Test results from this visit will be discussed in further detail at your follow- up appointment, if applicable. Discharge Plan Admission Admit Date/Time: 06/08/23 04:38 Primary Reason for Your Visit: hypotension Attending Provider: Eliseo Saleh Primary Care Provider: Brandon Torres Consulting Providers: Markie Blackman Discharge Orders/Prescriptions Prescriptions: Continued Januvia 50 mg tablet 50 mg PO DAILY rosuvastatin [Crestor] 20 mg tablet 20 mg PO QHS calcium carbonate-vitamin D3 [Calcium 600 with Vitamin D3] 600 mg(1,500mg) - 500 unit capsule 1 cap PO DAILY magnesium oxide 400 mg magnesium capsule 400 mg PO DAILY ascorbate calcium (vitamin C) 500 mg tablet 500 mg PO DAILY tizanidine [Zanaflex] 4 mg tablet 4 mg PO Q8H PRN (Reason: Muscle Spasm) Culturelle 10 billion cell capsule 1 cap PO DAILY pregabalin 100 mg capsule 100 mg PO DAILY multivitamin 1 EACH tablet 1 tab PO DAILY Patient Comments: vitamin pantoprazole 40 MG tablet 40 mg PO BID Patient Comments: GERD amitriptyline 25 MG tablet 25 mg PO QHS duloxetine 60 MG capsule 60 mg PO BID valacyclovir [Valtrex] 500 MG tablet 500 mg PO DAILY zinc 50 mg capsule 50 mg PO/SL DAILY fluticasone propion-salmeterol [Advair Diskus] 100-50 mcg/dose Blister With Device 1 inh INHALATION BID Entresto 49-51 mg Tablet 1 tab PO BID cetirizine [Zyrtec] 10 mg Tablet 10 mg PO DAILY alendronate 70 MG tablet 70 mg PO Rx Instructions: takes on tuesdays aspirin 81 MG tablet,delayed release (DR/EC) 81 mg PO DAILY@0800 dicyclomine 20 mg Tablet 20 mg PO TIDCM levothyroxine 112 mcg Tablet 112 mcg PO DAILY guaifenesin [Mucinex] 600 mg Tablet Extended Release 12hr 1,200 mg PO BID Eliquis 5 mg Tablet 5 mg PO BID 30 Days Qty: 60 0RF venlafaxine 75 mg tablet 75 mg PO DAILY benzonatate 100 mg capsule 100 mg PO Q8H PRN Patient Comments: 1-2 caps as needed fluticasone propion-salmeterol [Advair Diskus] 500-50 mcg/dose blister with device 1 inh INHALATION BID venlafaxine 75 mg tablet 150 mg PO QHS carvedilol [Coreg] 25 mg tablet 25 mg PO BID Rx Instructions: must administer with a meal/food Discontinued hydralazine 25 mg tablet 25 mg PO BID Qty: 180 3RF Referrals / Follow Up: Brandon Torres DO [Primary Care Provider] - Within 1 Week Disposition Disposition (needs filled in before D/C Order can be placed): Home, Self Care
--- NOTE | 2023-06-08 13:59 | PCM.DC.SUM ---
Providers Date of Admission: 06/08/23 Date of Discharge: 06/08/23 Primary Care Physician: Dr. Brandon Torres DO Reason For Visit: TRANSIENT HYPOTENSION Diagnosis Discharge Diagnosis (1) Transient hypotension: Status: Acute Code(s): I95.9 - Hypotension, unspecified Plan 1. Hypotension-secondary to medication usage #2 essential hypertension #3 nonischemic cardiomyopathy #4 cerebrovascular disease Medications at Discharge Home Medications multivitamin 1 tab PO DAILY vitamin 12/29/17 pantoprazole 40 mg tablet,delayed release 40 mg PO BID GERD 03/29/19 amitriptyline 25 mg tablet 25 mg PO QHS mood 08/10/19 rosuvastatin 20 mg tablet (Crestor) 20 mg PO QHS cholesterol 08/25/19 sitagliptin phosphate 50 mg tablet (Januvia) 50 mg PO DAILY diabetes 09/04/19 duloxetine 60 mg capsule,delayed release 60 mg PO BID nerve pain 10/19/20 valacyclovir 500 mg tablet (Valtrex) 500 mg PO DAILY cold soars 10/19/20 tizanidine 4 mg tablet (Zanaflex) 4 mg PO Q8H PRN Muscle Spasm 01/26/21 ascorbate calcium (vitamin C) 500 mg tablet 500 mg PO DAILY vitamin 01/27/21 calcium carbonate 600 mg-vitamin D3 12.5 mcg (500 unit) capsule (Calcium 600 with Vitamin D3) 1 cap PO DAILY supplement 01/27/21 magnesium oxide 400 mg PO DAILY supplement 01/27/21 Lactobacillus rhamnosus GG 10 billion cell capsule (Culturelle) 1 cap PO DAILY supplement 05/18/21 pregabalin 100 mg capsule 100 mg PO DAILY Nerve pain 05/18/21 carvedilol 25 mg tablet (Coreg) 25 mg PO BID BP 08/23/21 fluticasone 100 mcg-salmeterol 50 mcg/dose blistr powdr for inhalation (Advair Diskus) 1 inh inhalation BID Breathing 02/11/22 sacubitril 49 mg-valsartan 51 mg tablet (Entresto) 1 tab PO BID Heart 02/11/22 alendronate 70 mg tablet 70 mg PO TU BONES 02/13/22 cetirizine 10 mg tablet (Zyrtec) 10 mg PO DAILY ALLERGIES 02/13/22 aspirin 81 mg tablet,delayed release 81 mg PO DAILY@0800 Heart health 02/15/22 zinc 50 mg PO/SL DAILY supplement 05/10/22 dicyclomine 20 mg tablet 20 mg PO TIDCM 09/11/22 guaifenesin 600 mg tablet, extended release 12 hr (Mucinex) 1,200 mg PO BID cough 09/11/22 levothyroxine 112 mcg tablet 112 mcg PO DAILY thyroid 09/11/22 apixaban 5 mg tablet (Eliquis) 5 mg PO BID blood thinner 30 days #60 tabs 09/18/22 benzonatate 100 mg capsule 100 mg PO Q8H PRN cough 05/28/23 venlafaxine 75 mg tablet 75 mg PO DAILY depression 05/28/23 fluticasone 500 mcg-salmeterol 50 mcg/dose blistr powdr for inhalation (Advair Diskus) 1 inh inhalation BID breathing 05/29/23 venlafaxine 75 mg tablet 150 mg PO QHS depression 05/29/23 Hospital Course Operations None Procedures None Summary of Care Provided Minutes Spent on Discharge: 45 Hospital Course: This 62-year-old white female was seen in the emergency room at [facility] with generalized weakness and dizziness. Work-up in the emergency room revealed patient's blood pressure to be low at 52/32, she was afebrile, she was not tachycardic. Patient's NIH stroke score was 1. Patient was given IV fluids in the emergency room, CT angiography of the head and neck along with a plain CT of the brain shows no evidence of hemorrhage, her white blood cell count was normal. Blood pressure improved to 90/53, the patient was placed into observation status on PCU and her blood pressure was monitored and she was monitored on telemetry. There was some thought that the patient's tricyclic antidepressants may have caused hypotension but this examiner felt it was more likely that her hydralazine was causing low blood pressure. I discussed this briefly with her rn radiation oncology by phone (Dr. Gibson) and he recommended stopping the patient's hydralazine altogether. On 06/08/23, patient was seen and examined: On examination she appeared in good health and spirits, she does not appear to be in any distress. Vital signs as documented. Skin warm and dry and without overt rashes. Neck without JVD, thyroid appears normal, trachea is midline, neck is supple. Lungs clear, normal air movement was noted. Heart exam notable for regular rhythm, normal sounds and absence of murmurs, rubs or gallops. Abdomen unremarkable and without evidence of organomegaly, masses, or abdominal aortic enlargement, bowel sounds are present in all 4 quadrants, no abdominal tenderness was noted. Extremities nonedematous, no cyanosis was noted, no clubbing was noted. Neuro: Cranial nerves II through XII are grossly intact, no focal motor deficits were noted, sensation to light touch and pinprick is intact, motor exam 5/5 throughout. Psych: Patient is alert and oriented x3, she does not appear anxious or depressed, she does not appear agitated. Patient appears stable for discharge home on 06/08/2023 in stable condition Weight / BMI Weight Weight: 103 kg Body Mass Index (BMI) 38.9 ABG / Lab / Microbiology Data 06/08/23 01:43 06/08/23 01:43 Laboratory: Laboratory Results - last 24 hr 06/08/23 01:43: WBC 8.5, RBC 2.61 L, Hgb 8.2 L, Hct 25.8 L, MCV 98.9, MCH 31.4, MCHC 31.8 L, RDW Std Deviation 56.1 H, RDW Coeff of Lencho 16.6 H, Plt Count 191, MPV 9.9, Immature Gran % (Auto) 1.500 H, Neut % (Auto) 66.6, Lymph % (Auto) 23.1, [place] % (Auto) 5.8, Eos % (Auto) 2.8, Baso % (Auto) 0.2, Absolute Neuts (auto) 5.7, Absolute Lymphs (auto) 1.96, Nucleated RBC % 0, PT 17.8 H, INR 1.5, APTT 38.8 H, Sodium 135 L, Potassium 3.9, Chloride 103, Carbon Dioxide 24.0, Anion Gap 8, BUN 18, Creatinine 1.39 H, Estim Creat Clear Calc 36.24, Est GFR (MDRD) Af Amer 49 L, Est GFR (MDRD) Non-Af 41 L, BUN/Creatinine Ratio 12.9, Glucose 146 H, Calcium 8.5, Total Bilirubin 0.40, AST 18, ALT 54, Alkaline Phosphatase 47, Troponin I High Sens 11, Total Protein 5.7 L, Albumin 2.6 L, Globulin 3.1, Albumin/Globulin Ratio 0.8 L 06/08/23 02:10: Lactic Acid 1.0, Cortisol 6.00 06/08/23 02:45: Urine Color Yellow, Urine Clarity Clear, Urine pH 5.0, Ur Specific [place] 1.015, Urine Protein 15 H, Urine Glucose (UA) Normal, Urine Ketones Negative, Urine Occult Blood Negative, Urine Nitrite Negative, Urine Bilirubin Negative, Urine Urobilinogen Normal, Ur Leukocyte Esterase Negative, Urine RBC 0 SEEN, Urine WBC 0 SEEN, Ur Squamous Epith Cells 0 SEEN, Urine Bacteria 0 SEEN, Urine Mucus 0 SEEN 06/08/23 06:32: POC Glucose 178 H 06/08/23 11:29: POC Glucose 224 H Radiography Diagnostic Testing: Radiology Impression Chest X-Ray 06/08/23 01:51 IMPRESSION: Some residual partial collapse of the right upper lobe. A central obstructing lesion is not excluded. A follow-up chest CT is recommended. Electronically Signed: Khalif Partida MD at 2:52 EDT Reading Location ID and State: [facility] / [place] Tel , Service support , Head/Neck CTA 06/08/23 01:51 IMPRESSION: CT ANGIOGRAPHY HEAD AND NECK WITH INTRAVENOUS CONTRAST: % ICA stenosis = (1 - narrowest ICA diameter/diameter of distal cervical ICA) x 100.: Mild - <50% stenosis.: Moderate - 50-69% stenosis.: Severe - 70-94% stenosis.: Near occlusion - 95-99% stenosis.: Occluded - 100% stenosis.: 1. No large vessel occlusion, dissection, or other acute arterial abnormality identified on this CTA head/neck exam. 2. There is 75% stenosis of the proximal right internal carotid artery. CT HEAD WITHOUT INTRAVENOUS CONTRAST: No acute findings in the head/brain. Electronically Signed: Khalif Partida MD at 3:01 EDT , ADDENDUM: 06/08/23 0310 IMPRESSION: CT ANGIOGRAPHY HEAD AND NECK WITH INTRAVENOUS CONTRAST: % ICA stenosis = (1 - narrowest ICA diameter/diameter of distal cervical ICA) x 100.: Mild - <50% stenosis.: Moderate - 50-69% stenosis.: Severe - 70-94% stenosis.: Near occlusion - 95-99% stenosis.: Occluded - 100% stenosis.: 1. No large vessel occlusion, dissection, or other acute arterial abnormality identified on this CTA head/neck exam. 2. There is 75% stenosis of the proximal right internal carotid artery. CT HEAD WITHOUT INTRAVENOUS CONTRAST: No acute findings in the head/brain. N.B. : The above Results were Read Back by Khalif Partida MD to Derick Alcantara MD, and understanding confirmed on 06/08/2023 03:03:24 (ET). Electronically Signed: Khalif Partida MD at 3:01 EDT , D/C Instructions Discharge Diet: 1800 Calorie Control Diet Weight Bearing Status: Full weight bearing Meaningful Use Info Meaningful Use Diagnoses (Choose all that apply): None applicable Discharge Plan Admission Admit Date/Time: 06/08/23 04:38 Primary Reason for Your Visit: hypotension Attending Provider: Eliseo Saleh Primary Care Provider: Brandon Torres Consulting Providers: Markie Blackman Discharge Orders/Prescriptions Prescriptions: Continued Januvia 50 mg tablet 50 mg PO DAILY rosuvastatin [Crestor] 20 mg tablet 20 mg PO QHS calcium carbonate-vitamin D3 [Calcium 600 with Vitamin D3] 600 mg(1,500mg) -500 unit capsule 1 cap PO DAILY magnesium oxide 400 mg magnesium capsule 400 mg PO DAILY ascorbate calcium (vitamin C) 500 mg tablet 500 mg PO DAILY tizanidine [Zanaflex] 4 mg tablet 4 mg PO Q8H PRN (Reason: Muscle Spasm) Culturelle 10 billion cell capsule 1 cap PO DAILY pregabalin 100 mg capsule 100 mg PO DAILY multivitamin 1 EACH tablet 1 tab PO DAILY Patient Comments: vitamin pantoprazole 40 MG tablet 40 mg PO BID Patient Comments: GERD amitriptyline 25 MG tablet 25 mg PO QHS duloxetine 60 MG capsule 60 mg PO BID valacyclovir [Valtrex] 500 MG tablet 500 mg PO DAILY zinc 50 mg capsule 50 mg PO/SL DAILY fluticasone propion-salmeterol [Advair Diskus] 100-50 mcg/dose Blister With Device 1 inh INHALATION BID Entresto 49-51 mg Tablet 1 tab PO BID cetirizine [Zyrtec] 10 mg Tablet 10 mg PO DAILY alendronate 70 MG tablet 70 mg PO Rx Instructions: takes on tuesdays aspirin 81 MG tablet,delayed release (DR/EC) 81 mg PO DAILY@0800 dicyclomine 20 mg Tablet 20 mg PO TIDCM levothyroxine 112 mcg Tablet 112 mcg PO DAILY guaifenesin [Mucinex] 600 mg Tablet Extended Release 12hr 1,200 mg PO BID Eliquis 5 mg Tablet 5 mg PO BID 30 Days Qty: 60 0RF venlafaxine 75 mg tablet 75 mg PO DAILY benzonatate 100 mg capsule 100 mg PO Q8H PRN Patient Comments: 1-2 caps as needed fluticasone propion-salmeterol [Advair Diskus] 500-50 mcg/dose blister with device 1 inh INHALATION BID venlafaxine 75 mg tablet 150 mg PO QHS carvedilol [Coreg] 25 mg tablet 25 mg PO BID Rx Instructions: must administer with a meal/food Discontinued hydralazine 25 mg tablet 25 mg PO BID Qty: 180 3RF Referrals / Follow Up: Brandon Torres DO [Primary Care Provider] - Within 1 Week Disposition Disposition (needs filled in before D/C Order can be placed): Home, Self Care Charges/Coding Visit Charges OBSV E&M: 07382 Observ/hosp same date L1
--- NOTE | 2023-06-08 14:11 | CASEMGMT ---
Patient has order for discharge. RN CM in to discuss needs at discharge. Patient denies needs at this time, patient voices understanding to follow-up with PCP. Patient had no further questions or concerns.
== END 2023-06-08 13:59 | disposition home or self-care (01) ==
LOC: ED 04:34 → PCU 04:46
PROVIDERS: Admitting Provider Family Medicine; Emergency Provider Emergency Medicine; PCP Student in an Organized Health Care Education/Training Program; Visit Provider Internal Medicine
DX: I95.9 Hypotension, unspecified (principal); I69.351 Hemiplegia and hemiparesis following cerebral infarction affecting right dominant side; I42.8 Other cardiomyopathies; I13.0 Hypertensive heart and chronic kidney disease with heart failure and stage 1 through stage 4 chronic kidney disease, or unspecified chronic kidney disease; I50.22 Chronic systolic (congestive) heart failure; E11.22 Type 2 diabetes mellitus with diabetic chronic kidney disease; E11.40 Type 2 diabetes mellitus with diabetic neuropathy, unspecified; N18.30 Chronic kidney disease, stage 3 unspecified; Z87.891 Personal history of nicotine dependence; Z79.83 Long term (current) use of bisphosphonates; R53.1 Weakness; Z79.82 Long term (current) use of aspirin; I25.10 Atherosclerotic heart disease of native coronary artery without angina pectoris; Z79.51 Long term (current) use of inhaled steroids; Z79.01 Long term (current) use of anticoagulants; E78.5 Hyperlipidemia, unspecified; Z79.899 Other long term (current) drug therapy; K21.9 Gastro-esophageal reflux disease without esophagitis; E03.9 Hypothyroidism, unspecified; J45.909 Unspecified asthma, uncomplicated
CPT/HCPCS: 51702; 70496; 70498; 71045; 80053; 81001; 82533; 82962; 83605; 84484; 85025; 85610; 85730; 87040; 87086; 93005; 96361; 96374; 99221; 99285; J7030; Q9967; A4216; G0378

== ENCOUNTER 2023-07-01 14:59 | Inpatient (IN) | payer MEDICARE, MEDICAID, SELFPAY ==
[2023-07-01] VITALS (10 sets, daily range): BP systolic 98–149; BP diastolic 55–82; PULSE 73–89; RESP 8–23; TEMP 35.8–36.6; O2SAT 92–96; BMI 38.7; BMI 37.9
--- NOTE | 2023-07-01 16:15 | EX.ED.DYSGE1 ---
HPI History of Present Illness Chief Complaint: Shortness of Breath Detail of Chief Complaint: Dizziness, dyspnea, urinary symptoms Informant: patient Onset/Context/Timing Onset: Days Context: - (Unable to determine. Patient is a poor informant. She told me 5-10 times that she is forgetful and this occurs when she has a UTI) Quality: Dysuria, frequency and urgency Location: Current Severity: Gone Maximum Severity: Moderate Worsened by: Urination Relieved by: Dyspnea, dyspnea on exertion, history of anemia of unknown etiology Associated Symptoms Associated Symptoms: Headache. Patient has history of migraines. These are occurring more freq Narrative Narrative: Patient is a 62-year-old woman. She does not appear well. She appears pale. She is slightly tachypneic with conversation. She denies any exacerbating, precipitating alleviating factors regard to her headache. She denies double vision, blurred vision loss of vision. Denies ringing or ears or decreased hearing. She does endorse rhinorrhea and postnasal drainage which is a chronic issue. She denies sore throat. She does have a cough. Her cough is chronic per old records. Patient denies fever, chills night sweats. Patient denies weight gain or weight loss. Patient denies any ocular or visual symptoms. She denies decreased hearing or ringing in ears. He does not endorse a cough which is essentially nonproductive. She denies pleuritic pain. She does report two-pillow orthopnea that she has been experiencing the past 1 to 2 weeks. She does have history of heart disease but does not endorse heart failure. She denies black or maroon-colored stool. She denies GI symptoms. Prior similar symptoms: No Recent Illness/Hospitalization: Yes (Patient diagnosed with UTI approximate 1 month ago.) [facility] Medical History ACTH deficiency Acute respiratory failure with hypoxia Allergic rhinitis Anemia Asthma Asthma exacerbation Atherosclerosis of coronary artery without angina pectoris Bilateral leg weakness Bone fracture Brain TIA Cardiomyopathy Carotid artery stenosis Carpal tunnel syndrome Chronic constipation with suspected IBS Chronic headaches Chronic systolic (congestive) heart failure CKD (chronic kidney disease) stage 3, GFR 30-59 ml/min Debility Depression Diabetes mellitus Embolic stroke Essential hypertension Falls Flash pulmonary edema (01/16/21) Gait difficulty Gallstones GERD (gastroesophageal reflux disease) GI problem Herpes simplex History of Clostridium difficile infection History of CVA (cerebrovascular accident) (2018) History of depression History of emotional problems History of ischemic colitis History of stroke Hx of diverticulitis of colon Hyperlipidemia Hyperlipidemia Hypertension Hypotension Hypothyroidism Hypothyroidism Irritable bowel syndrome Kidney disease Neuropathy Non-ischemic cardiomyopathy Normochromic normocytic anemia Normocytic anemia Obesity Osteoarthritis Osteopenia Osteoporosis Peripheral vascular disease Pulmonary edema Right hemiparesis Seasonal allergies Secondary adrenal insufficiency Stomach ulcer Stroke/cerebrovascular accident Trigeminal trophic syndrome Type 2 diabetes mellitus Home Medications multivitamin 1 tab PO DAILY vitamin 12/29/17 [History Last Taken 09/10/22] pantoprazole 40 mg tablet,delayed release 40 mg PO BID GERD 03/29/19 [History Last Taken 09/10/22] amitriptyline 25 mg tablet 25 mg PO QHS mood 08/10/19 [History Last Taken 09/10/22] rosuvastatin 20 mg tablet (Crestor) 20 mg PO QHS cholesterol 08/25/19 [History Last Taken 09/10/22] sitagliptin phosphate 50 mg tablet (Januvia) 50 mg PO DAILY diabetes 09/04/19 [History Last Taken 09/10/22] duloxetine 60 mg capsule,delayed release 60 mg PO BID nerve pain 10/19/20 [History Last Taken 09/10/22] valacyclovir 500 mg tablet (Valtrex) 500 mg PO DAILY cold soars 10/19/20 [History Last Taken 09/10/22] tizanidine 4 mg tablet (Zanaflex) 4 mg PO Q8H PRN Muscle Spasm 01/26/21 [History Last Taken 09/10/22] ascorbate calcium (vitamin C) 500 mg tablet 500 mg PO DAILY vitamin 01/27/21 [History Last Taken 09/10/22] calcium carbonate 600 mg-vitamin D3 12.5 mcg (500 unit) capsule (Calcium 600 with Vitamin D3) 1 cap PO DAILY supplement 01/27/21 [History Last Taken 09/10/22] magnesium oxide 400 mg PO DAILY supplement 01/27/21 [History Last Taken 09/10/22] Lactobacillus rhamnosus GG 10 billion cell capsule (Culturelle) 1 cap PO DAILY supplement 05/18/21 [History Last Taken 09/10/22] pregabalin 100 mg capsule 100 mg PO DAILY Nerve pain 05/18/21 [History Last Taken 09/10/22] carvedilol 25 mg tablet (Coreg) 25 mg PO BID BP 08/23/21 [History Last Taken 09/10/22] fluticasone 100 mcg-salmeterol 50 mcg/dose blistr powdr for inhalation (Advair Diskus) 1 inh inhalation BID Breathing 02/11/22 [History Last Taken 09/10/22] sacubitril 49 mg-valsartan 51 mg tablet (Entresto) 1 tab PO BID Heart 02/11/22 [History Last Taken 09/10/22] alendronate 70 mg tablet 70 mg PO TU BONES 02/13/22 [History Last Taken 09/05/22] cetirizine 10 mg tablet (Zyrtec) 10 mg PO DAILY ALLERGIES 02/13/22 [History Last Taken 09/10/22] aspirin 81 mg tablet,delayed release 81 mg PO DAILY@0800 Heart health 02/15/22 [History Last Taken 09/10/22] zinc 50 mg PO/SL DAILY supplement 05/10/22 [History Last Taken 09/10/22] dicyclomine 20 mg tablet 20 mg PO TIDCM 09/11/22 [History Last Taken 09/10/22] guaifenesin 600 mg tablet, extended release 12 hr (Mucinex) 1,200 mg PO BID cough 09/11/22 [History Last Taken 09/10/22] levothyroxine 112 mcg tablet 112 mcg PO DAILY thyroid 09/11/22 [History Last Taken 09/10/22] apixaban 5 mg tablet (Eliquis) 5 mg PO BID blood thinner 30 days #60 tabs 09/18/22 [Rx Last Taken Unknown] benzonatate 100 mg capsule 100 mg PO Q8H PRN cough 05/28/23 [History Last Taken Unknown] venlafaxine 75 mg tablet 75 mg PO DAILY depression 05/28/23 [History Last Taken Unknown] fluticasone 500 mcg-salmeterol 50 mcg/dose blistr powdr for inhalation (Advair Diskus) 1 inh inhalation BID breathing 05/29/23 [History Last Taken Unknown] venlafaxine 75 mg tablet 150 mg PO QHS depression 05/29/23 [History Last Taken Unknown] Allergy/AdvReac Type Severity Reaction Status Date / Time adhesive Allergy skin Verified 07/01/23 15:57 irritation amlodipine [From [facility]] Allergy tachycardia Verified 07/01/23 15:57 hydromorphone HCl Allergy Itching Verified 07/01/23 15:57 [From Dilaudid] sulfamethoxazole Allergy made my Verified 07/01/23 15:57 [From Bactrim] cold sore huge trimethoprim [From Bactrim] Allergy made my Verified 07/01/23 15:57 cold sore huge Family History Grandfather Alcoholism Grandmother Myocardial infarction Mother Arthritis Diverticulitis COPD (chronic obstructive pulmonary disease) Afib Thyroid disorder Father Arthritis Diabetes Myocardial infarction Heart disease Ischemic Hypertension Hyperlipidemia Brother Arthritis Aunt Breast cancer Sister Arthritis Thyroid disorder Skin cancer Uncle Diabetes Surgical History Ankle fracture Fracture of left femur History of angioplasty of peripheral vessel (2010) History of arthroscopic knee surgery History of back surgery History of bilateral knee replacement History of carpal tunnel release History of cholecystectomy History of intestine removal History of left heart catheterization (2011) History of tonsillectomy and adenoidectomy History of trigger finger History of ventral hernia repair Strangulated ventral hernia Social History household members: none Smoking Status: Former smoker how long ago did patient quit smokin alcohol intake: never substance use type: does not use what type of physical activity do you participate in: other ROS ROS ED Constitutional Constitutional ED: Denies chills, fever(s), subjective, sweats or weight loss Eyes Eyes: Denies blurry vision, change in vision or diplopia ENT ENT ED: Reports rhinorrhea; Denies ear pain or sore throat Cardiovascular Cardiovascular: Reports orthopnea; Denies chest pain, palpitations, paroxysmal nocturnal dyspnea or racing heartbeat Respiratory/Chest Respiratory/Chest: Reports cough, dyspnea, dyspnea on exertion, orthopnea and sputum; Denies paroxysmal nocturnal dyspnea Gastrointestinal Gastrointestinal: Denies abdominal pain, diarrhea, melena, nausea or vomiting Genitourinary Genitourinary ED: Reports dysuria and urinary frequency; Denies hematuria Musculoskeletal Musculoskeletal: Denies arthralgias, back pain, myalgias or neck pain Integumentary Denies abscess or rash Neurologic Neurologic: Reports headache(s) and weakness; Denies paresthesias Psychiatric Psychiatric: Reports depression; Denies anxiety or suicidal ideation Endocrine Endocrinology: Denies cold intolerance or heat intolerance Hematologic/Lymphatic Hematologic/Lymphatic: Reports systems reviewed and no addt'l complaints, except as documented and other Details: Patient has an appointment to see Dr. Barraza tomorrow. He has been working up her anemia. The cause of her anemia is unknown. She has required transfusions in the past. EXAM Physical Exam Const Vital Signs: 07/01/23 15:00 07/01/23 15:57 07/01/23 15:58 Temperature 96.5 F L Temperature Source Temporal Pulse Rate 85 89 Respiratory Rate 18 8 L Respiratory Effort Short of Breath Labored Respiratory Pattern Bradypnea Blood Pressure 98/73 108/70 Blood Pressure Mean 81 82 Pulse Ox 95 92 Oxygen Delivery Method Room Air Room Air Room Air 07/01/23 17:26 07/01/23 17:43 07/01/23 19:34 Temperature Temperature Source Pulse Rate 78 79 85 Respiratory Rate 15 13 22 H Respiratory Effort Respiratory Pattern Blood Pressure 104/82 H 111/67 103/55 L Blood Pressure Mean 89 81 71 Pulse Ox 93 96 94 Oxygen Delivery Method Room Air Room Air Room Air Positive obese; Negative for well nourished or well developed Constitutional Narrative: Patient appears ill. She appears pale. Her first blood pressure was low. General Appearance ED: pallor; Negative for well developed, cyanotic, diaphoretic or NAD Nutritional Appearance: obese HEENT Reports dry mucous membranes HEENT Narrative: Patient has poor dentition. Head is normocephalic and head is atraumatic. Ears are normal. Nares are patent with clear discharge. Posterior pharynx unremarkable. Mouth ED: Yes dry mucous membranes Mouth: dry mucous membranes Eyes PERRL and EOMs intact bilaterally General Eye ED: Yes pale conjunctiva; Negative for scleral icterus Neck no lymphadenopathy, supple and no JVD Chest Wall inspection of chest normal and palpation of chest normal Resp normal respiratory effort and clear to auscultation bilaterally Cardio regular rate, regular rhythm, S1 normal heart sound, S2 normal heart sound and no murmurs GI normal to inspection, nondistended, normoactive bowel sounds, non-tender, non-distended and no masses; Negative for hepatosplenomegaly Back/Spine no CVA tenderness Thoracic Spine / Upper Back: Negative for thoracic spinal tenderness Lumbar Spine / Lower Back: Negative for lumbar spinal tenderness Extremity Negative for normal to inspection Extremity Narrative: Patient has healing wounds on her lower extremity. She has scars due to knee arthroplasty. She has stigmata of peripheral arterial disease. Neuro CN's II-XII intact bilaterally and no sensory deficits noted Sensorium / Orientation: Negative for alert Motor Exam: strength 5/5 throughout Psych Mood & Affect: depressed Skin no rashes or lesions noted, no wounds and No skin turgor normal General Skin Exam: pallor; Negative for elasticity normal or jaundice MDM MDM MDM Narrative Medical decision making narrative: Patient's dyspnea may be due to anemia, pneumonia, CHF since she does have history of nonischemic cardiomyopathy. Also need to consider cardiac ischemia. Her confusion as she reports may be due to UTI since she does have urinary symptoms. Since patient will not be able to give a clean-catch specimen straight cath was ordered. History & Record Review Additional record(s) reviewed:: Prior inpatient record (She was recently admitted for strokelike symptoms. She was noted to have 75% stenosis of her carotid.), Prior outpatient record (Records from her primary care physician's office Dr. Torres and Dr. Barraza's notes were reviewed.), Prior ED visit and Prior labs Lab Data Attestation: I reviewed the patient's lab results. Lab results narrative: White count is normal. Patient is anemic with macrocytic indices. Patient has chronic anemia. This is a her baseline. UA macro is positive for ketones, blood and leukoesterase. Micro is pending. Nurse informing that her systolic pressure is 82 and her mean arterial is less than 65. Patient does have evidence of a urinary tract infection. Fluid bolus was ordered. Additionally lactate, blood cultures urine cultures were ordered as well as antibiotics for infection. Patient will require admission. Patient's blood pressure responded to the fluid bolus. Hospitalist been paged for admission Labs: Laboratory Results - last 24 hr 07/01/23 07/01/23 07/01/23 16:41 17:06 19:10 WBC 8.6 RBC 2.72 L Hgb 8.3 L Hct 28.7 L MCV 105.5 H MCH 30.5 MCHC 28.9 L RDW Std Deviation 58.0 H RDW Coeff of Lencho 14.9 H Plt Count 185 MPV 9.8 Immature Gran % (Auto) 0.600 Neut % (Auto) 81.6 H Lymph % (Auto) 11.2 L [place] % (Auto) 5.8 Eos % (Auto) 0.5 Baso % (Auto) 0.3 Absolute Neuts (auto) 7.0 Absolute Lymphs (auto) 0.96 Nucleated RBC % 0 Sodium 139 Potassium 3.8 Chloride 110 H Carbon Dioxide 24.0 Anion Gap 5 BUN 10 Creatinine 0.86 Estim Creat Clear Calc 58.57 Est GFR (MDRD) Af Amer 86 Est GFR (MDRD) Non-Af 71 BUN/Creatinine Ratio 11.6 Glucose 95 Lactic Acid 0.8 Calcium 8.6 Urine Color Yellow Urine Clarity Cloudy Urine pH 6.0 Ur Specific [place] 1.015 Urine Protein 30 H Urine Glucose (UA) Normal Urine Ketones 5 H Urine Occult Blood 25 H Urine Nitrite Negative Urine Bilirubin Negative Urine Urobilinogen Normal Ur Leukocyte Esterase 500 H Urine RBC 0 SEEN Urine WBC >100 SEEN Ur Squamous Epith Cells 0 SEEN Urine Bacteria 3+ Urine Mucus 0 SEEN Radiography Chest X-Ray - ED: 2 View, Read by ED Physician (There is an abnormality right perihilar region. Cardiac silhouette size unremarkable. Lung parenchyma reveals chronic changes. Osseous structures are unremarkable. We will compare to prior x-rays.) and - (The density noted is worse from prior x-ray.) Diagnostic Testing: Clinical Impression(s) from Imaging Studies Chest X-Ray 07/01/23 17:12 IMPRESSION: Worsening density across the right upper lobe, worsening prominence of the right hilum, atelectasis or infiltrate suggested in both lung bases. CT with contrast is recommended. Electronically Signed: David Weiner MD at 17:37 EDT , Critical Care Time Critical Care Time: Yes Critical care time (excluding procedures): 30-74 minutes (33), Including time spent: (History, physical, documentation, review of prior records), Discussing w/Patient &/or Family/Ear Nose Throat Physician, Discussing w/Consultants, Arranging Admission or Transfer, Performing Direct Patient Care at Bedside and - (Treatment of hypotension due to infection with fluid boluses.) Discharge Plan Dx/Rx/DC Orders Clinical Impression: Acute hypotension, Complicated urinary tract infection, Delirium, Non-ischemic cardiomyopathy, Anemia, macrocytic, Hilar mass Disposition Disposition: Acute Care Hospital [facility]
--- NOTE | 2023-07-01 16:25 | EKG12_ITS ---
Test Reason : SOB Blood Pressure : / mmHG Vent. Rate : 087 BPM Atrial Rate : 087 BPM P-R Int : 164 ms QRS Dur : 092 ms QT Int : 390 ms P-R-T Axes : 030 030 042 degrees QTc Int : 469 ms Normal sinus rhythm Normal ECG Confirmed by JUAN CASTRO, KALIA ([id number]), website/blog editor ARIN HORTON ([id number]) on 07/26/2023 2:06:43 PM Referred By: HANY Confirmed By:WARNER MARTINEZ MD
[2023-07-01 16:53] LABS: Absolute Lymphocyte Count 0.96 X10^3/uL (0.83-4.51); Basophil# 0.03 X10^3/uL; Basophil% 0.3 % (0-1); Eosinophil# 0.04 X10^3/uL; Eosinophils% 0.5 % (0-5); Hematocrit 28.7 % (37-47); Hemoglobin 8.3 g/dL (12.0-15.0); Lymphocyte # 0.96 X10^3/ul (0.83-4.51); Lymphocyte % 11.2 % (19-41); Mean Corp Hgb Conc 28.9 g/dL (32-36); Mean Corpuscular Hgb 30.5 pg (27.0-32.0); Mean Corpuscular Volume 105.5 fL (81-99); Mean Platelet Vol. 9.8 fl (6.2-12.0); Monocyte% 5.8 % (0-10); NRBC Flagged by Analyzer 0 % (0-5); Neutrophil # 7.02 X10^3/uL (2.7-7.7); Neutrophil % 81.6 % (47-70); Platelet Count 185 K/mm3 (150-450); RBC Distribution Width CV 14.9 % (11.6-14.6); Red Blood Count 2.72 M/mm3 (4.2-5.4); White Blood Count 8.6 K/mm3 (4.4-11.0)
[2023-07-01 17:06] LABS: Anion Gap 5 (5-15); BUN 10 mg/dL (7-18); BUN/Creat Ratio 11.6 RATIO (10-20); Calcium,Total 8.6 mg/dL (8.5-10.1); Chloride 110 mmol/L (98-107); Creatinine, Serum 0.86 mg/dL (0.55-1.02); EST Glomerular Filtration Rate 71 mL/min (>60); Est Glom Filt Rate - Afr Amer 86 mL/min (>60); Estimated Creatinine Clearance 58.57 ml/min; Glucose 95 mg/dL (74-106); Potassium 3.8 mmol/L (3.5-5.1); Sodium Level 139 mmol/L (136-145)
--- NOTE | 2023-07-01 17:12 | RAD_ITS ---
STUDY: X-RAY CHEST REASON FOR EXAM: Female, 62 years old. Dyspnea TECHNIQUE: Single AP portable view of the chest. COMPARISON: Numerous prior studies including next most recent study of 06/08/2023. FINDINGS: Stable elevation right hemidiaphragm. Increasing pulmonary opacity across the right upper lobe. Although this could be atelectasis, mass is not excluded. CT with contrast is recommended. Increasing density in both lung bases consistent with mild atelectasis or infiltrate. Possible small right pleural effusion. Normal size heart. Enlargement of the right hilum. This also needs evaluation with contrast CT. Normal visualized pulmonary arteries. Normal visualized aortic arch and descending thoracic aorta. Normal visualized thoracic spine. Normal visualized ribs, clavicles, and shoulders. There is no demonstrated abnormality of the visualized soft tissue structures of the upper abdomen. RAD/Chest PA and Lateral IMPRESSION: Worsening density across the right upper lobe, worsening prominence of the right hilum, atelectasis or infiltrate suggested in both lung bases. CT with contrast is recommended. Electronically Signed: David Weiner MD at 17:37 EDT ,
[2023-07-01 17:13] LABS: Mucous, Urine 0 SEEN /hpf (<or=2+); Red Blood Cells-Urine 0 SEEN /hpf (0-5); Squamous Epithelial Cells - UA 0 SEEN /hpf (5-10)
[2023-07-01 17:16] LABS: Color, Urine Yellow (Yellow); Glucose, Dipstick Normal (Normal); Ketone-Dipstick 5 mg/dl (Negative); Leukocyte Esterase-Dipstick 500 /ul (Negative); Nitrite-Dipstick Negative (Negative); Occult Blood-Urine 25 /ul (Negative); Protein-Dipstick 30 mg/dl (Negative); Specific Gravity, Urine 1.015 (1.002-1.030); Urine Bilirubin Dipstick Negative (Negative); Urine Clarity Cloudy (Clear); Urine Urobilinogen Normal (Normal)
[2023-07-01 17:44] LABS: Bacteria 3+ /hpf (None Seen); White Blood Cells >100 SEEN /hpf (0-5)
[2023-07-01] MEDS: 0.9% Normal Saline 1,000 ML 999 ML IV ×3 (18:55→20:27)
[2023-07-01] MEDS: Ceftriaxone 1 GM/50 ML BAG IV (19:38)
[2023-07-01 19:49] LABS: Lactic Acid 0.8 mmol/L (0.4-1.9)
--- NOTE | 2023-07-01 20:01 | HP.PCM.HOS_ITS ---
HPI - General General Date of Admission: 07/01/23 Date of Service: 07/01/23 Chief Complaint: SOB/Dysuria/Lightheadeness HPI Narrative BILL CHOI, is a 62 F who presented to department at [facility] on 07/01/2023 complaining of lightheadedness, shortness of breath, dysuria and urinary frequency. She reports that she has a recent history of urinary tract infections. It appears that she was here In early June and had a negative urine culture at that time however at the end of May she had Proteus in her urine. They did have somewhat of a resistance pattern but was sensitive to Zosyn. It was resistant to quinolones. She states her symptoms started on Sunday of this past week and have progressively worsened since then. She said intermittent urinary incontinence which is not something she typically struggles with a baseline, dysuria, back pain, and urinary frequency. She is also been experiencing some mild confusion which she reports are self and shortness of breath. She had a few falls as well and is complaining of some right shoulder pain which is acute on chronic. She had no nausea or vomiting. Her appetite has been so-so, she denies any constipation or diarrhea. She has not had any syncopal episodes but does feel lightheaded at times. I have reviewed her blood pressures it appears previously her blood pressures do not run very high but they are a bit lower than typical for her on presentation today. Thus far they responded to IV fluids. She lives alone and typically ambulates either with a walker but states recently she has been using her wheelchair able bit more due to her concern of her following related to her lightheadedness. Vital signs on presentation demonstrated temperature of 96.5, heart rate 85, initial blood pressure was 98/73 but most recently she is 111/60 1:07 liter of IV fluids. Respiratory rate 18 and oxygen saturations are 95% on room air. CBC shows no leukocytosis but she does have a left shift with 81.6% neutrophilia. Her hemoglobin is low at 8.3 however this is her baseline. Chemistries are overall unremarkable. Lactic acid was 0.8. Her urine is suggestive of infection with protein, small ketones, occult blood, leuk esterase, greater than 100 white cells and 3+ bacteria. EKG shows normal sinus rhythm with no ST-T wave changes concerning for acute ischemia and no interval abnormalities. Chest x-ray shows some worsening density across the upper lobe with worsening prominence of the hilum which was evident to a lesser degree at her last chest x-ray and a CT was recommended. In the emergency department she was given IV fluids and started. [facility] Medical History ACTH deficiency Acute respiratory failure with hypoxia Allergic rhinitis Anemia Asthma Asthma exacerbation Atherosclerosis of coronary artery without angina pectoris Bilateral leg weakness Bone fracture Brain TIA Cardiomyopathy Carotid artery stenosis Carpal tunnel syndrome Chronic constipation with suspected IBS Chronic headaches Chronic systolic (congestive) heart failure CKD (chronic kidney disease) stage 3, GFR 30-59 ml/min Debility Depression Diabetes mellitus Embolic stroke Essential hypertension Falls Flash pulmonary edema (01/16/21) Gait difficulty Gallstones GERD (gastroesophageal reflux disease) GI problem Herpes simplex History of Clostridium difficile infection History of CVA (cerebrovascular accident) (2018) History of depression History of emotional problems History of ischemic colitis History of stroke Hx of diverticulitis of colon Hyperlipidemia Hyperlipidemia Hypertension Hypotension Hypothyroidism Hypothyroidism Irritable bowel syndrome Kidney disease Neuropathy Non-ischemic cardiomyopathy Normochromic normocytic anemia Normocytic anemia Obesity Osteoarthritis Osteopenia Osteoporosis Peripheral vascular disease Pulmonary edema Right hemiparesis Seasonal allergies Secondary adrenal insufficiency Stomach ulcer Stroke/cerebrovascular accident Trigeminal trophic syndrome Type 2 diabetes mellitus Home Medications multivitamin 1 tab PO DAILY vitamin 12/29/17 [History Last Taken 09/10/22] pantoprazole 40 mg tablet,delayed release 40 mg PO BID GERD 03/29/19 [History Last Taken 09/10/22] amitriptyline 25 mg tablet 25 mg PO QHS mood 08/10/19 [History Last Taken 09/10/22] rosuvastatin 20 mg tablet (Crestor) 20 mg PO QHS cholesterol 08/25/19 [History Last Taken 09/10/22] sitagliptin phosphate 50 mg tablet (Januvia) 50 mg PO DAILY diabetes 09/04/19 [History Last Taken 09/10/22] duloxetine 60 mg capsule,delayed release 60 mg PO BID nerve pain 10/19/20 [History Last Taken 09/10/22] valacyclovir 500 mg tablet (Valtrex) 500 mg PO DAILY cold soars 10/19/20 [History Last Taken 09/10/22] tizanidine 4 mg tablet (Zanaflex) 4 mg PO Q8H PRN Muscle Spasm 01/26/21 [History Last Taken 09/10/22] ascorbate calcium (vitamin C) 500 mg tablet 500 mg PO DAILY vitamin 01/27/21 [History Last Taken 09/10/22] calcium carbonate 600 mg-vitamin D3 12.5 mcg (500 unit) capsule (Calcium 600 with Vitamin D3) 1 cap PO DAILY supplement 01/27/21 [History Last Taken 09/10/22] magnesium oxide 400 mg PO DAILY supplement 01/27/21 [History Last Taken 09/10/22] Lactobacillus rhamnosus GG 10 billion cell capsule (Culturelle) 1 cap PO DAILY supplement 05/18/21 [History Last Taken 09/10/22] pregabalin 100 mg capsule 100 mg PO DAILY Nerve pain 05/18/21 [History Last Taken 09/10/22] carvedilol 25 mg tablet (Coreg) 25 mg PO BID BP 08/23/21 [History Last Taken 09/10/22] fluticasone 100 mcg-salmeterol 50 mcg/dose blistr powdr for inhalation (Advair Diskus) 1 inh inhalation BID Breathing 02/11/22 [History Last Taken 09/10/22] sacubitril 49 mg-valsartan 51 mg tablet (Entresto) 1 tab PO BID Heart 02/11/22 [History Last Taken 09/10/22] alendronate 70 mg tablet 70 mg PO TU BONES 02/13/22 [History Last Taken 09/05/22] cetirizine 10 mg tablet (Zyrtec) 10 mg PO DAILY ALLERGIES 02/13/22 [History Last Taken 09/10/22] aspirin 81 mg tablet,delayed release 81 mg PO DAILY@0800 Heart health 02/15/22 [History Last Taken 09/10/22] zinc 50 mg PO/SL DAILY supplement 05/10/22 [History Last Taken 09/10/22] dicyclomine 20 mg tablet 20 mg PO TIDCM 09/11/22 [History Last Taken 09/10/22] guaifenesin 600 mg tablet, extended release 12 hr (Mucinex) 1,200 mg PO BID cough 09/11/22 [History Last Taken 09/10/22] levothyroxine 112 mcg tablet 112 mcg PO DAILY thyroid 09/11/22 [History Last Taken 09/10/22] apixaban 5 mg tablet (Eliquis) 5 mg PO BID blood thinner 30 days #60 tabs 09/18/22 [Rx Last Taken Unknown] benzonatate 100 mg capsule 100 mg PO Q8H PRN cough 05/28/23 [History Last Taken Unknown] venlafaxine 75 mg tablet 75 mg PO DAILY depression 05/28/23 [History Last Taken Unknown] fluticasone 500 mcg-salmeterol 50 mcg/dose blistr powdr for inhalation (Advair Diskus) 1 inh inhalation BID breathing 05/29/23 [History Last Taken Unknown] venlafaxine 75 mg tablet 150 mg PO QHS depression 05/29/23 [History Last Taken Unknown] Allergy/AdvReac Type Severity Reaction Status Date / Time adhesive Allergy skin Verified 07/01/23 15:57 irritation amlodipine [From Norvasc] Allergy tachycardia Verified 07/01/23 15:57 hydromorphone HCl Allergy Itching Verified 07/01/23 15:57 [From Dilaudid] sulfamethoxazole Allergy made my Verified 07/01/23 15:57 [From Bactrim] cold sore huge trimethoprim [From Bactrim] Allergy made my Verified 07/01/23 15:57 cold sore huge Family History Grandfather Alcoholism Grandmother Myocardial infarction Mother Arthritis Diverticulitis COPD (chronic obstructive pulmonary disease) Afib Thyroid disorder Father Arthritis Diabetes Myocardial infarction Heart disease Ischemic Hypertension Hyperlipidemia Brother Arthritis Aunt Breast cancer Sister Arthritis Thyroid disorder Skin cancer Uncle Diabetes Surgical History Ankle fracture Fracture of left femur History of angioplasty of peripheral vessel (2010) History of arthroscopic knee surgery History of back surgery History of bilateral knee replacement History of carpal tunnel release History of cholecystectomy History of intestine removal History of left heart catheterization (2011) History of tonsillectomy and adenoidectomy History of trigger finger History of ventral hernia repair Strangulated ventral hernia Social History household members: none Smoking Status: Former smoker how long ago did patient quit smokin alcohol intake: never substance use type: does not use what type of physical activity do you participate in: other ROS Constitutional Constitutional: Reports anorexia, fatigue, malaise and weakness; Denies change in weight, chills, fever(s), night sweats or other Eyes Eyes: Denies blurry vision, change in eye color, change in vision, discharge from eye(s), double vision, erythema, eye pain, loss of vision or other ENT HEENT: Denies abnormal hearing, dysphagia, ear pain, epistaxis, headache(s), hearing loss, nasal congestion, nasal discharge, post nasal drip, sinus pressure, sore throat or other Cardiovascular Cardiovascular: Reports lightheadedness; Denies chest pain, claudication, dyspnea on exertion, edema, orthopnea, palpitations, paroxysmal nocturnal dyspnea, rapid heart rate, syncope or other Respiratory/Chest Respiratory/Chest: Reports cough, shortness of breath at rest and shortness of breath with exertion; Denies dyspnea, excessive phlegm production, hemoptysis, productive cough, wheezing or other Gastrointestinal Gastrointestinal: Denies abdominal pain, coffee ground emesis, constipation, diarrhea, dyspepsia, hematemesis, hematochezia, loose stools, melena, nausea, vomiting or other Genitourinary Genitourinary: Reports burning urination, urinary frequency, urinary incontinence and urinary urgency; Denies difficulty urinating, dysuria, hematuria, nocturia, urinary hesitancy or other Musculoskeletal Musculoskeletal: Reports back pain and joint pain; Denies arthralgias, joint stiffness, joint swelling, myalgias, neck pain or other Neurologic Neurologic: Reports abnormal gait; Denies abnormal speech, confusion, disequilibrium, dizziness, focal weakness, headache(s), numbness, paresthesias, seizure-like activity, seizures, syncope, tingling, tremor(s) or other Psychiatric Psychiatric: Reports depression; Denies anxiety, homicidal ideation, suicidal ideation or other Endocrine Endocrinology: Denies change in body appearance, cold intolerance, excessive sweating, heat intolerance, polydipsia, polyuria or other Hematologic/Lymphatic Hematologic/Lymphatic: Denies anemia, easy bleeding, easy bruising, lymphadenopathy or other Allergic/Immunologic Allergic/Immunologic: Denies rhinitis, hives, eczemia, asthma or other Vital Signs Vital Signs Vital Signs: 07/01/23 15:00 07/01/23 15:57 07/01/23 15:58 Temperature 96.5 F L Temperature Source Temporal Pulse Rate 85 89 Respiratory Rate 18 8 L Respiratory Effort Short of Breath Labored Respiratory Pattern Bradypnea Blood Pressure 98/73 108/70 Blood Pressure Mean 81 82 Pulse Ox 95 92 Oxygen Delivery Method Room Air Room Air Room Air 07/01/23 17:26 07/01/23 17:43 07/01/23 19:34 Temperature Temperature Source Pulse Rate 78 79 85 Respiratory Rate 15 13 22 H Respiratory Effort Respiratory Pattern Blood Pressure 104/82 H 111/67 103/55 L Blood Pressure Mean 89 81 71 Pulse Ox 93 96 94 Oxygen Delivery Method Room Air Room Air Room Air Weight Weight: 102.512 kg Body Mass Index (BMI) 38.7 Physical Exam Const alert, oriented x3, no apparent distress and well nourished; Negative for average body habitus or healthy appearing Constitutional Narrative: , Obese, white female, appears much older than stated age, lying in bed, appears ill but nontoxic, currently appears comfortable, appears chronically ill General Appearance: cooperative HEENT normocephalic, head/scalp atraumatic, hearing grossly normal bilaterally and moist oral mucous membranes HEENT Narrative: Edentulous, Mallampati 2, no thrush Eyes PERRL and EOMs intact bilaterally Eyes Narrative: Conjunctiva are pale bilaterally, no scleral icterus Neck no lymphadenopathy, supple and no JVD Neck Narrative: Trachea midline, no thyroid enlargement Resp normal respiratory effort, no retractions, no use of accessory muscles and clear to auscultation bilaterally Resp Narrative: Diffusely diminished but clear Auscultation: Negative for rales, rhonchi or wheezes Cardio regular rate, regular rhythm, S1 normal heart sound, S2 normal heart sound, no murmurs, no rub, no gallops and no clicks GI normal to inspection, nondistended, normoactive bowel sounds and soft to palpation GI Narrative: Mild suprapubic tenderness Extremity no clubbing, cyanosis or edema Extremity Narrative: Pedal pulses are 2+ Skin no rashes or lesions noted, no wounds, skin turgor normal, no jaundice, no petechiae and no mottling Skin Narrative: Skin is pale Neuro oriented x3, CN's II-XII intact bilaterally, moves all extremities and no focal motor deficits Neuro Narrative: Significant generalized weakness with decreased range of motion actively of her right shoulder due to pain Speech: speech normal Motor Exam: Negative for strength 5/5 throughout Psych Psych Narrative: Affect is flat and mood is somewhat depressed, eye contact is good Results Lab / Micro Data Attestation: I reviewed the patient's lab results. 07/01/23 16:41 07/01/23 16:41 Labs: Laboratory Results - last 24 hr 07/01/23 16:41: WBC 8.6, RBC 2.72 L, Hgb 8.3 L, Hct 28.7 L, MCV 105.5 H, MCH 30.5, MCHC 28.9 L, RDW Std Deviation 58.0 H, RDW Coeff of Lencho 14.9 H, Plt Count 185, MPV 9.8, Immature Gran % (Auto) 0.600, Neut % (Auto) 81.6 H, Lymph % (Auto) 11.2 L, [place] % (Auto) 5.8, Eos % (Auto) 0.5, Baso % (Auto) 0.3, Absolute Neuts (auto) 7.0, Absolute Lymphs (auto) 0.96, Nucleated RBC % 0, Sodium 139, Pota ssium 3.8, Chloride 110 H, Carbon Dioxide 24.0, Anion Gap 5, BUN 10, Creatinine 0.86, Estim Creat Clear Calc 58.57, Est GFR (MDRD) Af Amer 86, Est GFR (MDRD) Non-Af 71, BUN/Creatinine Ratio 11.6, Glucose 95, Calcium 8.6 07/01/23 17:06: Urine Color Yellow, Urine Clarity Cloudy, Urine pH 6.0, Ur Specific Aladdin 1.015, Urine Protein 30 H, Urine Glucose (UA) Normal, Urine Ketones 5 H, Urine Occult Blood 25 H, Urine Nitrite Negative, Urine Bilirubin Negative, Urine Urobilinogen Normal, Ur Leukocyte Esterase 500 H, Urine RBC 0 SEEN, Urine WBC >100 SEEN, Ur Squamous Epith Cells 0 SEEN, Urine Bacteria 3+, Urine Mucus 0 SEEN 07/01/23 19:10: Lactic Acid 0.8 Radiology Impression Chest X-Ray 07/01/23 17:12 IMPRESSION: Worsening density across the right upper lobe, worsening prominence of the right hilum, atelectasis or infiltrate suggested in both lung bases. CT with contrast is recommended. Electronically Signed: David Weiner MD at 17:37 EDT , Assessment & Plan Assessment/Plan (1) Acute hypotension: (2) Complicated urinary tract infection: (3) Metabolic encephalopathy: (4) Abnormal CXR: (5) Falls: (6) Debility: PLAN: Plan Complicated urinary tract infection -Patient does meet any criteria for sepsis -UA is quite suggestive of infection -Ceftriaxone given the emergency department and with history of multidrug- resistant organisms will broaden to Zosyn on admission -Previous culture showed Proteus from late May -IV fluids to complete boluses given by emergency department physician then KVO -Check CT of the abdomen pelvis with history of frequent urine tract infections and flank pain -Would recommend outpatient consultation with Dr. Colton Cruz after discharge Acute on chronic hypotension -Patient's blood pressures always seem to be on the low side however on presentation lower than typical -Has responded to IV fluids thus far and lactate is normal -Monitor clinically -Continue IV fluids bolus ordered by the emergency department -May need to consider decreasing some of her medications for hypertension--> possibly decrease carvedilol when reinitiated Abnormal chest x-ray -Chest x-ray with worsening density in the right upper lobe and worsening prominence of the hilum -Check CT with contrast of the chest -Patient does have history of tobacco abuse and chronic cough Metabolic encephalopathy -Mild -Patient is noticing more forgetfulness -Alert and oriented x3 -Should with infection being treated Right shoulder pain -Check x-rays -Sounds more muscular -May need outpatient orthopedic follow-up after discharge Falls/debility -PT/OT consultation -Consult case management/social work in case placement will be required versus home health Chronic macrocytic anemia -Hemoglobin is stable -Baseline has been between 8 and 9 -Currently 8.3 -Continue to monitor as patient is fully anticoagulated with Eliquis Cervical stenosis -MRI of the cervical spine recently showed stenosis that is moderate at C3 and 4 as well as C5 and C6 -Patient was to follow-up with outpatient with a spinal surgeon Stroke -Patient with recent embolic stroke 2021 -RI showed abnormality in the left anterior parietal lobe and small acute ischemic stroke in the right cerebellar hemisphere that was suggestive of embolic disease -Continue Eliquis -Continue aspirin Carotid artery stenosis-right ICA -50 to 69% -Continue outpatient follow-up -Continue medical therapy History of COPD -Currently no signs of exacerbation -As needed albuterol -Continue home medications DM-2 -Continue Sitagliptin -SSI -Accu-Cheks as ordered GERD -Continue PPI HTN/HPL -Hold antihypertensives due to hypotension on presentation -Consider decreasing Coreg dosing versus Entresto as patient is having chronically lower blood pressures and falls due to lightheadedness -Continue home statin History of cardiomyopathy -Most recent EF is between 55 and 60% -Continue home medications as appropriate History of cold sores -Continue home daily Valtrex Osteoporosis -Continue home alendronate Chronic pain/neuropathy -Continue Lyrica -Continue as needed tizanidine Depression/anxiety -Continue home amitriptyline -Continue home duloxetine -Continue home Effexor Obesity -BMI 38.8 -Complicates treatment, prognosis, outcomes -Recommend weight loss DVT prophylaxis -Continue home Eliquis CODE STATUS Full code is verified on admission Charges/Coding Visit Charges Inpatient E&M: 39372 Init Hosp L3
--- NOTE | 2023-07-01 20:10 | CT_ITS ---
EXAM: CT ABDOMEN AND PELVIS WITH INTRAVENOUS CONTRAST CLINICAL INDICATION: Recurrent UTI TECHNIQUE: Helically acquired images were obtained of the abdomen and pelvis with intravenous contrast. This CT exam was performed using one or more of the following dose reduction techniques: automated exposure control, adjustment of the mA and/or kV according to patient size, and/or use of iterative reconstruction technique. CONTRAST: IV 100mL Isovue-370 RADIATION DOSE: CTDIvol = 21.53 mGy, DLP = 2292.83 mGy-cm COMPARISON: No relevant prior studies available. FINDINGS: LIMITATIONS: Exam is limited by improper positioning of patient''s arms resulting in significant streak artifact. LOWER THORAX: Atelectasis or infiltrate in the visualized posterior right lung base. Gallbladder. Bilateral mildly small kidneys consistent with chronic atrophy. No definite acute renal abnormalities. No stones. No cardiomegaly. No significant pericardial effusion. ABDOMEN: LIVER: Unremarkable. Homogeneous. No focal mass. GALLBLADDER AND BILE DUCTS: Unremarkable. No calcified gallstones. No gallbladder distention or wall edema. No intra- or extrahepatic biliary ductal dilation. PANCREAS: Unremarkable. No focal cystic or solid mass. SPLEEN: Unremarkable. Normal size without focal cystic or solid mass. ADRENALS: Unremarkable. No nodules. KIDNEYS AND URETERS: Unremarkable. Normal renal size and position. No hydronephrosis. STOMACH AND BOWEL: Evaluation of the GI tract is limited by absence of oral contrast. Cannot exclude stomach wall thickening. No dilated loops of bowel or evidence for obstruction. Cannot exclude segmental thickening of the youssef of the small or large bowel. Cannot exclude enteritis or colitis. Moderate diffuse fecal retention. Appendix within normal limits. PELVIS: APPENDIX: No evidence of acute appendicitis. BLADDER: Unremarkable. REPRODUCTIVE: Atrophic uterus. ABDOMEN and PELVIS: INTRAPERITONEAL SPACE: Unremarkable. No ascites or other fluid collection. No free air. BONES/JOINTS: Degenerative changes of the spine. Bilateral pars defects of L5 with moderate anterolisthesis and severe degenerative disc disease at L5-S1. No suspicious lytic or blastic abnormality. SOFT TISSUES: Unremarkable. No discrete abdominal or pelvic wall hernia. VASCULATURE: Calcified aorta with no aneurysm. LYMPH NODES: Unremarkable. No enlarged lymph nodes. CT/Abdomen/Pelvis W IV Cont ONLY IMPRESSION: 1. Limited as above. 2. Atelectasis or infiltrate in the right lung base. 3. Probable mild chronic renal atrophy. 4. No definite acute abnormality. Electronically Signed: David Weiner MD at 22:00 EDT ,
--- NOTE | 2023-07-01 20:29 | CT_ITS ---
EXAM: CT CHEST WITH INTRAVENOUS CONTRAST CLINICAL INDICATION: abn CXR TECHNIQUE: Helically acquired images were obtained of the chest with intravenous contrast. This CT exam was performed using one or more of the following dose reduction techniques: automated exposure control, adjustment of the mA and/or kV according to patient size, and/or use of iterative reconstruction technique. CONTRAST: IV 100mL Isovue-370 RADIATION DOSE: CTDIvol = 21.53 mGy, DLP = 2292.83 mGy-cm COMPARISON: Chest x-ray of the same day, CT scan 08/04/2021 FINDINGS: LUNGS AND PLEURAL SPACES: Elevated right hemidiaphragm. Moderate lung volumes. Irregular patchy pulmonary opacities are seen throughout the right lung especially in the right lower lobe and across the anterior segment of the right upper lobe. The findings could be inflammatory or neoplastic. Further evaluation such as bronchoscopy recommended. Left lung is clear. No pleural effusion or thickening. No pneumothorax. HEART: Unremarkable. Heart size is normal. No pericardial effusion. MEDIASTINUM: Abnormal soft tissue density in and around the right hilum consistent with adenopathy and/or neoplasm. Esophagus is unremarkable. No hiatal hernia. THYROID: Unremarkable. No thyroid lesions. BONES/JOINTS: Degenerative changes throughout the spine. No suspicious lytic or blastic abnormality. VASCULATURE: Unremarkable. Thoracic aorta is non-dilated. No thoracic aortic dissection. No obvious central pulmonary embolism although this study was not performed with the pulmonary embolism protocol. LYMPH NODES: There is soft tissue density in and around the right hilum which could be adenopathy or neoplasm. CT/Chest WITH Contrast IMPRESSION: Abnormal right lung, especially in the right apex, the posterior right lung base, and the right hilum. Extensive irregular pulmonary opacities which could be inflammatory disease/pneumonia or neoplasm. Findings significantly worse than prior study. Bronchoscopy suggested. Electronically Signed: David Weiner MD at 22:15 EDT ,
--- NOTE | 2023-07-01 21:05 | RAD_ITS ---
STUDY: X-RAY - RIGHT SHOULDER REASON FOR EXAM: Female, 62 years old. R Shoulder Pain TECHNIQUE: 2 view(s) of the shoulder. COMPARISON: None. FINDINGS: Normal glenohumeral articulation. There is hypertrophic osteoarthrosis of the acromioclavicular joint with inferior osseous spur formation. Normal acromion. Normal humeral head and visualized proximal humerus. The soft tissue structures are unremarkable. There is no demonstrated fracture. Wedge-shaped soft tissue density seen in the mid right lung. Correlate with chest CT of the same day. RAD/Shoulder min 2 Views IMPRESSION: Degenerative changes. No acute fractures or dislocation. Electronically Signed: David Weiner MD at 21:40 EDT ,
[2023-07-01] MEDS: Acetaminophen 500 MG Tablet 1000 MG PO (22:20)
[2023-07-01] MEDS: MELATONIN 3 MG TABLET PO (22:28)
[2023-07-01 22:44] LABS: Bedside Glucose 93 mg/dL (74-106)
[2023-07-02] VITALS (8 sets, daily range): BP systolic 142–178; BP diastolic 71–85; PULSE 98–111; RESP 16–20; TEMP 36.4–37.4; O2SAT 94–100
--- NOTE | 2023-07-02 01:18 | NURSING ---
IV attempted x3 without success. RN notified.
[2023-07-02] MEDS: Levothyroxine 112 MCG Tablet PO (05:29)
[2023-07-02] MEDS: Acetaminophen 500 MG Tablet 1000 MG PO ×3 (05:29→21:57)
[2023-07-02] MEDS: 0.9% Saline Lock 10 ML Syringe IV ×2 (05:29→10:05)
[2023-07-02 05:50] LABS: Bedside Glucose 115 mg/dL (74-106)
[2023-07-02 06:42] LABS: Absolute Neutrophil Count 6.3 X10^3/uL (2.0-7.7); Basophil# 0.03 X10^3/uL; Basophil% 0.4 % (0-1); Eosinophil# 0.05 X10^3/uL; Eosinophils% 0.7 % (0-5); Hematocrit 27.3 % (37-47); Hemoglobin 8.3 g/dL (12.0-15.0); Lymphocyte % 9.2 % (19-41); Mean Corp Hgb Conc 30.4 g/dL (32-36); Mean Corpuscular Hgb 30.5 pg (27.0-32.0); Mean Corpuscular Volume 100.4 fL (81-99); Mean Platelet Vol. 9.8 fl (6.2-12.0); Monocyte# 0.47 X10^3/uL; Monocyte% 6.2 % (0-10); NRBC Flagged by Analyzer 0 % (0-5); Neutrophil % 82.6 % (47-70); Platelet Count 188 K/mm3 (150-450); Red Blood Count 2.72 M/mm3 (4.2-5.4); White Blood Count 7.6 K/mm3 (4.4-11.0)
[2023-07-02 07:19] LABS: ALB/GLOB Ratio 0.6 RATIO (0.9-2.4); AST(SGOT) 24 U/L (15-37); Alanine Aminotransfer ALT/SGPT 22 U/L (13-56); Albumin, Serum 2.3 g/dL (3.2-5.0); Alkaline Phosphatase 106 U/L (45-117); Anion Gap 7 (5-15); BUN 8 mg/dL (7-18); BUN/Creat Ratio 11.2 RATIO (10-20); Calcium,Total 7.8 mg/dL (8.5-10.1); Chloride 112 mmol/L (98-107); Creatinine, Serum 0.71 mg/dL (0.55-1.02); EST Glomerular Filtration Rate 88 mL/min (>60); Est Glom Filt Rate - Afr Amer 106 mL/min (>60); Estimated Creatinine Clearance 70.94 ml/min; Globulin 3.9 g/dL (2.2-4.2); Glucose 117 mg/dL (74-106); Magnesium 1.8 mg/dL (1.6-2.6); Phosphorus 1.8 mg/dL (2.5-4.9); Potassium 3.6 mmol/L (3.5-5.1); Protein, Total 6.2 g/dL (6.4-8.2); Sodium Level 140 mmol/L (136-145); Thyroid Stim Hormone (TSH) 0.45 uIU/mL (0.358-3.74)
[2023-07-02] MEDS: Budesonide Respules 0.5 MG/2 ML AMPUL.NEB. INHALATION ×2 (07:23→19:02)
[2023-07-02] MEDS: Albuterol 2.5 MG/3 ML VIAL.NEB. INHALATION ×3 (07:23→19:02)
--- NOTE | 2023-07-02 08:49 | CASEMGMT ---
Social Work SW performed chart review, LW on file as of 2017, updated HCPOA on file as of 2019. Patient's HCPOA is Dee Michaud with no identified alternates. No special instructions listed on either document. Hanna VIZCAINO, ROLAN
[2023-07-02] MEDS: Acyclovir 200 MG Capsule 400 MG PO ×2 (09:17→21:57)
[2023-07-02] MEDS: Pregabalin 50 MG Capsule PO (09:17)
[2023-07-02] MEDS: predniSONE 20 MG Tablet 40 MG PO (09:17)
[2023-07-02] MEDS: APIXABAN 5 MG TABLET PO ×2 (09:17→21:56)
[2023-07-02] MEDS: Dicyclomine 10 MG Capsule 20 MG PO ×3 (09:18→16:20)
[2023-07-02] MEDS: DULoxetine Hcl 60 MG Capsule PO ×2 (09:18→21:57)
[2023-07-02] MEDS: Venlafaxine HCl 75 MG Tablet PO (09:18)
[2023-07-02] MEDS: Magnesium Chloride 64 MG Delay Rel.Tablet 128 MG PO (09:18)
[2023-07-02] MEDS: LINAGLIPTIN 5 MG TABLET PO (09:18)
[2023-07-02] MEDS: Calcium Carb/Vitamin D 1 TABLET Tablet PO (09:18)
[2023-07-02] MEDS: Ascorbic Acid 500 MG Tablet PO (09:18)
[2023-07-02] MEDS: Loratadine 10 MG Tablet PO (09:18)
[2023-07-02] MEDS: Pantoprazole Sodium 40 MG Tablet PO ×2 (09:19→21:56)
[2023-07-02] MEDS: guaiFENesin 1,200 MG Tablet 1200 MG PO ×2 (09:19→21:56)
[2023-07-02] MEDS: Aspirin E.C. 81 MG Tablet PO (09:19)
[2023-07-02] MEDS: Multivitamins,Therapeutic Tablet 1 TABLET PO (09:19)
[2023-07-02] MEDS: Ondansetron 4 MG/2 ML Vial IV (10:05)
[2023-07-02] MEDS: Benzonatate 100 MG Capsule PO (10:24)
--- NOTE | 2023-07-02 12:39 | CON.PCM.CC_ITS ---
Assessment & Plan Assessment/Plan (1) Abnormal chest CT: PLAN: Plan RECOMMENDATIONS: 1. Wean supplemental oxygen to maintain saturations at or above 90%. 2. Continue empiric antibiotics. 3. Continue scheduled bronchodilators. 4. Continue prednisone, with plans for a 5-day burst at discharge, 40 mg daily. 5. Repeat chest imaging in 6 to 8 weeks. 6. Recommend follow-up with Dr. Catalina Woods after discharge. IMPRESSIONS: 1. Abnormal chest CT The patient's presenting chest imaging demonstrated diffuse right-sided airspace opacities. The patient has been followed by Dr. Catalina Woods of pulmonary medicine at [facility] in the past and reported a history of frequent pneumonias, resulting in scarring in her lungs. It would certainly be reasonable at this time to proceed with completing a 7-day course of antibiotics, with plans to repeat chest imaging in 6 to 8 weeks. I do not have any of the outside [facility] imaging for comparison. However, the patient appears to be stable from a respiratory perspective on minimal supplemental O2. She apparently has a history of obstructive lung disease, which is medically managed with Advair and as needed albuterol. Ultimately, I would recommend that the patient follow-up with her primary pulmonary provider within 1 month of discharge from the hospital. 2. Urinary tract infection Continue management with antimicrobials per hospitalist 3. History of tobacco dependency in remission/prior CVA/GERD/history of COPD Complicates care, management, recovery and prognosis. Continue home medications as indicated. This note was generated with [employer] dictation software. It may contain incorrect words, spelling, and punctuation that were not noted in checking the note before signing. HPI Consult Data Date of Consult: 07/02/23 HPI Narrative Reason for Consultation: Abnormal CT scan HPI Narrative: The patient is a 62-year-old female, with a history as outlined below, who presented to the emergency department via EMS on July 01 with shortness of breath, dizziness and lightheadedness. The patient reported some urinary urgency and incontinence as well. She stated that she has been followed by Dr. Catalina Woods of pulmonary medicine at [facility] in the past. The patient is on treatment for COPD and frequent pneumonias, which has apparently left her with scar tissue affecting the right upper lobe. She was last seen by her stationary plant operators approximately 1 year ago. On presentation to the emergency department, the patient was noted to be afebr ile with borderline hemodynamics. Initial laboratory evaluation revealed no evidence of a leukocytosis. Chemistry profile was unrevealing. Urinalysis was positive for leukocyte esterase and 3+ urine bacteria. CT abdomen/pelvis demonstrated infiltrate in the right lung base. Dedicated chest CT demonstrated pulmonary opacities involving the right hemithorax. The patient was ultimately placed on antimicrobials and admitted to the progressive care unit for further management. [facility] Medical History ACTH deficiency Acute respiratory failure with hypoxia Allergic rhinitis Anemia Asthma Asthma exacerbation Atherosclerosis of coronary artery without angina pectoris Bilateral leg weakness Bone fracture Brain TIA Cardiomyopathy Carotid artery stenosis Carpal tunnel syndrome Chronic constipation with suspected IBS Chronic headaches Chronic systolic (congestive) heart failure CKD (chronic kidney disease) stage 3, GFR 30-59 ml/min Debility Depression Diabetes mellitus Embolic stroke Essential hypertension Falls Flash pulmonary edema (01/16/21) Gait difficulty Gallstones GERD (gastroesophageal reflux disease) GI problem Herpes simplex History of Clostridium difficile infection History of CVA (cerebrovascular accident) (2018) History of depression History of emotional problems History of ischemic colitis History of stroke Hx of diverticulitis of colon Hyperlipidemia Hyperlipidemia Hypertension Hypotension Hypothyroidism Hypothyroidism Irritable bowel syndrome Kidney disease Neuropathy Non-ischemic cardiomyopathy Normochromic normocytic anemia Normocytic anemia Obesity Osteoarthritis Osteopenia Osteoporosis Peripheral vascular disease Pulmonary edema Right hemiparesis Seasonal allergies Secondary adrenal insufficiency Stomach ulcer Stroke/cerebrovascular accident Trigeminal trophic syndrome Type 2 diabetes mellitus Home Medications multivitamin 1 tab PO DAILY vitamin 12/29/17 [History Last Taken 09/10/22] pantoprazole 40 mg tablet,delayed release 40 mg PO BID GERD 03/29/19 [History Last Taken 09/10/22] amitriptyline 25 mg tablet 25 mg PO QHS mood 08/10/19 [History Last Taken 09/10/22] rosuvastatin 20 mg tablet (Crestor) 20 mg PO QHS cholesterol 08/25/19 [History Last Taken 09/10/22] sitagliptin phosphate 50 mg tablet (Januvia) 50 mg PO DAILY diabetes 09/04/19 [History Last Taken 09/10/22] duloxetine 60 mg capsule,delayed release 60 mg PO BID nerve pain 10/19/20 [History Last Taken 09/10/22] valacyclovir 500 mg tablet (Valtrex) 500 mg PO DAILY cold soars 10/19/20 [History Last Taken 09/10/22] tizanidine 4 mg tablet (Zanaflex) 4 mg PO Q8H PRN Muscle Spasm 01/26/21 [History Last Taken 09/10/22] ascorbate calcium (vitamin C) 500 mg tablet 500 mg PO DAILY vitamin 01/27/21 [History Last Taken 09/10/22] calcium carbonate 600 mg-vitamin D3 12.5 mcg (500 unit) capsule (Calcium 600 with Vitamin D3) 1 cap PO DAILY supplement 01/27/21 [History Last Taken 09/10/22] magnesium oxide 400 mg PO DAILY supplement 01/27/21 [History Last Taken 09/10/22] Lactobacillus rhamnosus GG 10 billion cell capsule (Culturelle) 1 cap PO DAILY supplement 05/18/21 [History Last Taken 09/10/22] pregabalin 100 mg capsule 100 mg PO DAILY Nerve pain 05/18/21 [History Last Taken 09/10/22] carvedilol 25 mg tablet (Coreg) 25 mg PO BID BP 08/23/21 [History Last Taken 09/10/22] fluticasone 100 mcg-salmeterol 50 mcg/dose blistr powdr for inhalation (Advair Diskus) 1 inh inhalation BID Breathing 02/11/22 [History Last Taken 09/10/22] sacubitril 49 mg-valsartan 51 mg tablet (Entresto) 1 tab PO BID Heart 02/11/22 [History Last Taken 09/10/22] alendronate 70 mg tablet 70 mg PO TU BONES 02/13/22 [History Last Taken 09/05/22] cetirizine 10 mg tablet (Zyrtec) 10 mg PO DAILY ALLERGIES 02/13/22 [History Last Taken 09/10/22] aspirin 81 mg tablet,delayed release 81 mg PO DAILY@0800 Heart health 02/15/22 [History Last Taken 09/10/22] zinc 50 mg PO/SL DAILY supplement 05/10/22 [History Last Taken 09/10/22] dicyclomine 20 mg tablet 20 mg PO TIDCM 09/11/22 [History Last Taken 09/10/22] guaifenesin 600 mg tablet, extended release 12 hr (Mucinex) 1,200 mg PO BID cough 09/11/22 [History Last Taken 09/10/22] levothyroxine 112 mcg tablet 112 mcg PO DAILY thyroid 09/11/22 [History Last Taken 09/10/22] apixaban 5 mg tablet (Eliquis) 5 mg PO BID blood thinner 30 days #60 tabs 09/18/22 [Rx Last Taken Unknown] benzonatate 100 mg capsule 100 mg PO Q8H PRN cough 05/28/23 [History Last Taken Unknown] venlafaxine 75 mg tablet 75 mg PO DAILY depression 05/28/23 [History Last Taken Unknown] fluticasone 500 mcg-salmeterol 50 mcg/dose blistr powdr for inhalation (Advair Diskus) 1 inh inhalation BID breathing 05/29/23 [History Last Taken Unknown] venlafaxine 75 mg tablet 150 mg PO QHS depression 05/29/23 [History Last Taken Unknown] Allergy/AdvReac Type Severity Reaction Status Date / Time adhesive Allergy skin Verified 07/01/23 15:57 irritation amlodipine [From Norvasc] Allergy tachycardia Verified 07/01/23 15:57 hydromorphone HCl Allergy Itching Verified 07/01/23 15:57 [From Dilaudid] sulfamethoxazole Allergy made my Verified 07/01/23 15:57 [From Bactrim] cold sore huge trimethoprim [From Bactrim] Allergy made my Verified 07/01/23 15:57 cold sore huge Family History Grandfather Alcoholism Grandmother Myocardial infarction Mother Arthritis Diverticulitis COPD (chronic obstructive pulmonary disease) Afib Thyroid disorder Father Arthritis Diabetes Myocardial infarction Heart disease Ischemic Hypertension Hyperlipidemia Brother Arthritis Aunt Breast cancer Sister Arthritis Thyroid disorder Skin cancer Uncle Diabetes Surgical History Ankle fracture Fracture of left femur History of angioplasty of peripheral vessel (2010) History of arthroscopic knee surgery History of back surgery History of bilateral knee replacement History of carpal tunnel release History of cholecystectomy History of intestine removal History of left heart catheterization (2011) History of tonsillectomy and adenoidectomy History of trigger finger History of ventral hernia repair Strangulated ventral hernia Social History household members: none Smoking Status: Former smoker how long ago did patient quit smokin alcohol intake: never substance use type: does not use what type of physical activity do you participate in: other ROS ROS Narrative 10 systems were reviewed with pertinent positives as noted in the HPI above. Physical Exam Const alert and no apparent distress Constitutional Narrative: Obese. General Appearance: cooperative HEENT normocephalic, head/scalp atraumatic and moist oral mucous membranes Eyes PERRL, EOMs intact bilaterally and conjunctivae normal Neck supple General: trachea midline Chest inspection of chest normal Resp normal respiratory effort Resp Narrative: Scant right-sided rhonchi Cardio regular rate and regular rhythm GI normal to inspection, nondistended, normoactive bowel sounds Extremity no clubbing, cyanosis or edema Skin no rashes or lesions noted Neuro oriented x3, CN's II-XII intact bilaterally and moves all extremities Psych cooperative and affect normal Lab / Micro Data 07/02/23 06:01 07/02/23 06:01 Labs: Laboratory Results - last 24 hr 07/01/23 16:41: WBC 8.6, RBC 2.72 L, Hgb 8.3 L, Hct 28.7 L, MCV 105.5 H, MCH 30.5, MCHC 28.9 L, RDW Std Deviation 58.0 H, RDW Coeff of Lencho 14.9 H, Plt Count 185, MPV 9.8, Immature Gran % (Auto) 0.600, Neut % (Auto) 81.6 H, Lymph % (Auto) 11.2 L, [place] % (Auto) 5.8, Eos % (Auto) 0.5, Baso % (Auto) 0.3, Absolute Neuts (auto) 7.0, Absolute Lymphs (auto) 0.96, Nucleated RBC % 0, Sodium 139, Potassium 3.8, Chloride 110 H, Carbon Dioxide 24.0, Anion Gap 5, BUN 10, Cr eatinine 0.86, Estim Creat Clear Calc 58.57, Est GFR (MDRD) Af Amer 86, Est GFR (MDRD) Non-Af 71, BUN/Creatinine Ratio 11.6, Glucose 95, Calcium 8.6 07/01/23 17:06: Urine Color Yellow, Urine Clarity Cloudy, Urine pH 6.0, Ur Specific Arp 1.015, Urine Protein 30 H, Urine Glucose (UA) Normal, Urine Ketones 5 H, Urine Occult Blood 25 H, Urine Nitrite Negative, Urine Bilirubin Negative, Urine Urobilinogen Normal, Ur Leukocyte Esterase 500 H, Urine RBC 0 SEEN, Urine WBC >100 SEEN, Ur Squamous Epith Cells 0 SEEN, Urine Bacteria 3+, Urine Mucus 0 SEEN 07/01/23 19:10: Lactic Acid 0.8 07/01/23 22:23: POC Glucose 93 07/02/23 05:28: POC Glucose 115 H 07/02/23 06:01: WBC 7.6, RBC 2.72 L, Hgb 8.3 L, Hct 27.3 L, MCV 100.4 H, MCH 30.5, MCHC 30.4 L D, RDW Std Deviation 55.0 H, RDW Coeff of Lencho 15.0 H, Plt Count 188, MPV 9.8, Immature Gran % (Auto) 0.900, Neut % (Auto) 82.6 H, Lymph % (Auto) 9.2 L, [place] % (Auto) 6.2, Eos % (Auto) 0.7, Baso % (Auto) 0.4, Absolute Neuts (auto) 6.3, Absolute Lymphs (auto) 0.70 L, Nucleated RBC % 0, Sodium 140, Potassium 3.6, Chloride 112 H, Carbon Dioxide 21.0, Anion Gap 7, BUN 8, Cr eatinine 0.71, Estim Creat Clear Calc 70.94, Est GFR (MDRD) Af Amer 106, Est GFR (MDRD) Non-Af 88, BUN/Creatinine Ratio 11.2, Glucose 117 H, Calcium 7.8 L, Phosphorus 1.8 L, Magnesium 1.8, Total Bilirubin 0.30, AST 24, ALT 22, Alkaline Phosphatase 106, Total Protein 6.2 L, Albumin 2.3 L, Globulin 3.9, Albumin/Globulin Ratio 0.6 L, TSH 0.45 Micro: Microbiology 07/01/23 17:06 Urine, Catheterized Urine Culture - Preliminary Presumptive E. coli Radiology Impression Chest X-Ray 07/01/23 17:12 IMPRESSION: Worsening density across the right upper lobe, worsening prominence of the right hilum, atelectasis or infiltrate suggested in both lung bases. CT with contrast is recommended. Electronically Signed: David Weiner MD at 17:37 EDT Reading Location ID and State: [facility] / [place] , Service support , Abdomen/Pelvis CT 07/01/23 20:10 IMPRESSION: 1. Limited as above. 2. Atelectasis or infiltrate in the right lung base. 3. Probable mild chronic renal atrophy. 4. No definite acute abnormality. Electronically Signed: David Weiner MD at 22:00 EDT Reading Location ID and State: [facility] / [place] , Service support , Chest CT 07/01/23 20:29 IMPRESSION: Abnormal right lung, especially in the right apex, the posterior right lung base, and the right hilum. Extensive irregular pulmonary opacities which could be inflammatory disease/pneumonia or neoplasm. Findings significantly worse than prior study. Bronchoscopy suggested. Electronically Signed: David Weiner MD at 22:15 EDT Reading Location ID and State: [facility] / [place] , Service support , Shoulder X-Ray 07/01/23 21:05 IMPRESSION: Degenerative changes. No acute fractures or dislocation. Electronically Signed: David Weiner MD at 21:40 EDT , Charges/Coding Visit Charges Inpatient E&M: 48151 Init Hosp L3
--- NOTE | 2023-07-02 14:51 | CASEMGMT ---
RN CM Face to Face with patient for initial transition planning/care coordination assessment. RN CM introduced self and role at [facility]. Patient lying in bed, alert and oriented. Patient willing to participate in assessment and is able to answer all questions appropriately. Care providers, pharmacy, and demographics verified. Patient wishes to discharge home with resumption of aides through [place]. Patient states she has no further needs or concerns at this time. CM to follow for discharge planning needs that may arise. PCP: Brian Specialists: Josephine, winder fixer; Jordan Woods, food science technician; Arthur, insurance inspector; Wander, ortho Preferred Pharmacy: [place] Insurance: [facility] Dual MCR Prescription Benefit: yes Living Will/HPOA: yes, sister Dee Florence LNOK: sister Living Arrangements: Patient lives alone in a single floor apartment with no steps. Patient is independent with self care, has aides for household Transportation: self, sister, friend DME/HHC: Patient has shower chair, cane, walker, wheelchair, scooter, lift chair, grab bars, pulse ox, glucometer at home. Patient has been to [place] in the past. Patient has had [facility] in the past. [facility] and come every Sunday and Sunday. Patient is active with Waiver program with Itz as her CM. Disposition Plan: Patient to discharge home with resumption of MANAGER OF LEARNING, family support, and follow-up plans in place. Will monitor for home oxygen. Bella HERNANDEZ, RN, CM
[2023-07-02 16:09] LABS: Iron 22 ug/dL (50-170); Iron Binding Capacity,Total 194 ug/dL (250-450); PERCENT IRON SATURATION 11.3 % (15.0-55.0)
--- NOTE | 2023-07-02 20:26 | PN.HOSP_ITS ---
Reason for Visit Reason for Visit: Diagnoses Metabolic encephalopathy (07/01/23) Hypotension, unspecified (07/01/23) Urinary tract infection, site not specified (07/01/23) Other malaise (07/01/23) Abnormal findings on diagnostic imaging of other specified body structures (07/01/23) Unspecified fall, initial encounter (07/01/23) Subjective Subjective Patient was seen and examined today, patient was admitted yesterday for urinary tract infection, her white blood cell count today is normal, hemoglobin is 8.3. Patient was seen by pulmonary medicine today for consultation regarding her abnormal chest x-ray, they recommended that she follow-up with an outpatient orthotics prosthetics technician which she is active with currently. Pulmonary medicine also recommended continuing the patient on empiric antibiotic treatment for pneumonia. Objective Data Objective Data Vital Signs: Vital Signs Temp Pulse Resp BP Pulse Ox O2 Del Method O2 Flow Rate 97.6 F L 101 H 18 142/75 H 96 Nasal Cannula 2.5 07/02/23 15:15 07/02/23 15:15 07/02/23 15:15 07/02/23 15:15 07/02/23 15:15 07/02/23 20:09 07/02/23 20:09 Oxygen Flow Rate (L/min) 2.5 Oxygen Delivery Method Nasal Cannula Weight: 100.3 kg Body Mass Index (BMI) 37.9 Intake & Output: Intake and Output for Last 24 Hours 06/30/23 07/01/23 07/02/23 23:59 23:59 23:59 Intake Total 2306.65 / 2306.65 763.34 / 763.34 Balance 2306.65 / 2306.65 763.34 / 763.34 Lab / Micro Data 07/02/23 06:01 07/02/23 06:01 Labs: Laboratory Results - last 24 hr 07/01/23 22:23: POC Glucose 93 07/02/23 05:28: POC Glucose 115 H 07/02/23 06:01: WBC 7.6, RBC 2.72 L, Hgb 8.3 L, Hct 27.3 L, MCV 100.4 H, MCH 30.5, MCHC 30.4 L D, RDW Std Deviation 55.0 H, RDW Coeff of Lencho 15.0 H, Plt Count 188, MPV 9.8, Immature Gran % (Auto) 0.900, Neut % (Auto) 82.6 H, Lymph % (Auto) 9.2 L, [place] % (Auto) 6.2, Eos % (Auto) 0.7, Baso % (Auto) 0.4, Absolute Neuts (auto) 6.3, Absolute Lymphs (auto) 0.70 L, Nucleated RBC % 0, Sodium 140, Potassium 3.6, Chloride 112 H, Carbon Dioxide 21.0, Anion Gap 7, BUN 8, Creatinine 0.71, Estim Creat Clear Calc 70.94, Est GFR (MDRD) Af Amer 106, Est GFR (MDRD) Non-Af 88, BUN/Creatinine Ratio 11.2, Glucose 117 H, Calcium 7.8 L, Phosphorus 1.8 L, Magnesium 1.8, Iron 22 L, TIBC 194 L, Iron Saturation 11.3 L, Total Bilirubin 0.30, AST 24, ALT 22, Alkaline Phosphatase 106, Total Protein 6.2 L, Albumin 2.3 L, Globulin 3.9, Albumin/Globulin Ratio 0.6 L, TSH 0.45 Micro: Microbiology 07/01/23 17:06 Urine, Catheterized Urine Culture - Preliminary Presumptive E. coli Radiography Diagnostic Testing: Radiology Impression Abdomen/Pelvis CT 07/01/23 20:10 IMPRESSION: 1. Limited as above. 2. Atelectasis or infiltrate in the right lung base. 3. Probable mild chronic renal atrophy. 4. No definite acute abnormality. Electronically Signed: David Weiner MD at 22:00 EDT , Chest CT 07/01/23 20:29 IMPRESSION: Abnormal right lung, especially in the right apex, the posterior right lung base, and the right hilum. Extensive irregular pulmonary opacities which could be inflammatory disease/pneumonia or neoplasm. Findings significantly worse than prior study. Bronchoscopy suggested. Electronically Signed: David Weiner MD at 22:15 EDT , Shoulder X-Ray 07/01/23 21:05 IMPRESSION: Degenerative changes. No acute fractures or dislocation. Electronically Signed: David Weiner MD at 21:40 EDT , Physical Exam Const alert, oriented x3 and no apparent distress General Appearance: cooperative, well kempt and well developed Orientation / Consciousness: awake, oriented to person, oriented to place and oriented to time HEENT normocephalic, head/scalp atraumatic and moist oral mucous membranes Eyes PERRL, EOMs intact bilaterally and conjunctivae normal Neck supple, no JVD, thyroid normal and no carotid bruits General: trachea midline Resp normal respiratory effort, no retractions, no use of accessory muscles and clear to auscultation bilaterally Auscultation: Negative for rales, rhonchi or wheezes Cardio regular rate, regular rhythm, S1 normal heart sound, S2 normal heart sound, no murmurs, no rub and no gallops GI normal to inspection, nondistended, normoactive bowel sounds, soft to palpation, non-tender and non-distended Extremity no clubbing, cyanosis or edema Skin no rashes or lesions noted General Skin Exam: no breakdown Neuro oriented x3, CN's II-XII intact bilaterally, moves all extremities, no focal motor deficits and no sensory deficits noted Sensorium / Orientation: awake, alert, oriented to person, oriented to place and oriented to time Speech: speech normal Psych affect normal Assessment & Plan Assessment/Plan (1) Abnormal chest CT: PLAN: Plan 1. Acute cystitis secondary to ESBL E. coli-continue Zosyn at this time, patient remains medically stable, monitor, evaluate, assess, and treat #2 abnormal chest [id number] will follow-up as an outpatient with her pulmonary physician, pulmonary medicine saw the patient while she was in the hospital today, they recommended she follow-up as an outpatient with her orthotics prosthetics technician #3 cerebrovascular disease-patient will remain on Eliquis and aspirin #4 type 2 diabetes-patient will continue Accu-Cheks and sliding scale insulin for coverage, patient is on Sitagliptin Total clinical time spent by myself addressing the patient's medical issues, reviewing all of her data, and collaborating with patient's care team: 25 min Charges/Coding Visit Charges Inpatient E&M: 14889 Subs Hosp L1
[2023-07-02] MEDS: Amitriptyline 25 MG Tablet PO (21:56)
[2023-07-02] MEDS: Venlafaxine HCl 75 MG Tablet 150 MG PO (21:57)
[2023-07-02] MEDS: Atorvastatin Calcium 40 MG Tablet PO (21:57)
[2023-07-03] MEDS: tiZANidine HCl 2 MG Tablet 4 MG PO (01:28)
[2023-07-03] MEDS: Alendronate Sodium 70 MG Tablet PO (05:48)
[2023-07-03] MEDS: Acetaminophen 500 MG Tablet 1000 MG PO ×2 (05:48→13:37)
[2023-07-03] MEDS: Levothyroxine 112 MCG Tablet PO (05:48)
[2023-07-03] MEDS: Budesonide Respules 0.5 MG/2 ML AMPUL.NEB. INHALATION (06:45)
[2023-07-03] MEDS: Albuterol 2.5 MG/3 ML VIAL.NEB. INHALATION (06:45)
[2023-07-03 06:47] VITALS: PULSE 91; RESP 16; O2SAT 95
[2023-07-03 08:34] VITALS: BP 127/67; PULSE 88; RESP 16; TEMP 37.2; O2SAT 98
[2023-07-03] MEDS: Dicyclomine 10 MG Capsule 20 MG PO ×2 (08:43→13:31)
[2023-07-03] MEDS: Aspirin E.C. 81 MG Tablet PO (08:43)
[2023-07-03] MEDS: Multivitamins,Therapeutic Tablet 1 TABLET PO (08:44)
[2023-07-03] MEDS: predniSONE 20 MG Tablet 40 MG PO (08:45)
--- NOTE | 2023-07-03 09:30 | PCM.PN.INT ---
Assessment & Plan Assessment/Plan (1) Abnormal chest CT: PLAN: Plan RECOMMENDATIONS: 1. Wean supplemental oxygen to maintain saturations at or above 90%. 2. Continue empiric antibiotics. 3. Continue scheduled bronchodilators. 4. Continue prednisone, with plans for a 5-day burst at discharge, 40 mg daily. 5. Repeat chest imaging in 6 to 8 weeks. 6. Recommend follow-up with primary grinder set up operator universal, Dr. Catalina Woods, after discharge. 7. Hemodynamically stable on room air. Will sign off from a critical care/pulmonary perspective. IMPRESSIONS: 1. Abnormal chest CT The patient's presenting chest imaging demonstrated diffuse right-sided airspace opacities. The patient has been followed by Dr. Catalina Woods of pulmonary medicine at [facility] in the past and reported a history of frequent pneumonias, resulting in scarring in her lungs. It would certainly be reasonable at this time to proceed with completing a 7-day course of antibiotics, with plans to repeat chest imaging in 6 to 8 weeks. I do not have any of the outside [facility] imaging for comparison. However, the patient appears to be stable from a respiratory perspective on minimal supplemental O2. She apparently has a history of obstructive lung disease, which is medically managed with Advair and as needed albuterol. Ultimately, I would recommend that the patient follow-up with her primary pulmonary provider within 1 month of discharge from the hospital. 2. Urinary tract infection Continue management with antimicrobials per hospitalist. Consider infectious disease consult given ESBL on urine culture. 3. History of tobacco dependency in remission/prior CVA/GERD/history of COPD Complicates care, management, recovery and prognosis. Continue home medications as indicated. This note was generated with [employer] dictation software. It may contain incorrect words, spelling, and punctuation that were not noted in checking the note before signing. Subjective Subjective Patient transferred from the intensive care unit. Patient subjectively feels okay today. Patient is not reporting any dyspnea and is doing well on room air. Blood pressures have been adequate. No fevers were noted overnight. Patient does report frustration over recurrent UTIs. Objective Data Objective Data Vital Signs: Vital Signs Temp Pulse Resp BP Pulse Ox O2 Del Method O2 Flow Rate 37.2 C 88 16 127/67 H 98 Room Air 2.5 07/03/23 08:34 07/03/23 08:34 07/03/23 08:34 07/03/23 08:34 07/03/23 08:34 07/03/23 08:34 07/02/23 20:09 Oxygen Flow Rate (L/min) 2.5 Oxygen Delivery Method Room Air Weight: 100.3 kg Body Mass Index (BMI) 37.9 Intake & Output: Intake and Output for Last 24 Hours 07/01/23 07/02/23 07/03/23 23:59 23:59 23:59 Intake Total 2306.65 / 2306.65 763.34 / 763.34 50 / 50 Balance 2306.65 / 2306.65 763.34 / 763.34 50 / 50 Lab / Micro Data Attestation: I reviewed the patient's lab results. 07/02/23 06:01 07/02/23 06:01 Labs: Laboratory Results - last 24 hr 07/02/23 06:01: Iron 22 L, TIBC 194 L, Iron Saturation 11.3 L Micro: Microbiology 07/01/23 17:06 Urine, Catheterized Urine Culture - Final Escherichia coli Physical Exam Const alert and no apparent distress Constitutional Narrative: Obese. General Appearance: cooperative HEENT normocephalic, head/scalp atraumatic and moist oral mucous membranes Eyes PERRL, EOMs intact bilaterally and conjunctivae normal Neck supple General: trachea midline Chest inspection of chest normal Resp normal respiratory effort Resp Narrative: Scant right-sided rhonchi Cardio regular rate and regular rhythm GI normal to inspection, nondistended, normoactive bowel sounds Extremity no clubbing, cyanosis or edema Skin no rashes or lesions noted Neuro oriented x3, CN's II-XII intact bilaterally and moves all extremities Psych cooperative and affect normal Charges/Coding Visit Charges Inpatient E&M: 38938 Subs Hosp L2
--- NOTE | 2023-07-03 12:17 | DCINST_ITS ---
Discharge Instructions Diet Discharge Diet: No restrictions Activity Discharge Activity: Return to Normal Activity Weight Bearing Status: Full weight bearing Follow Up Care Test Results: Test results from this visit will be discussed in further detail at your follow- up appointment, if applicable. Discharge Plan Admission Admit Date/Time: 07/01/23 20:33 Primary Reason for Your Visit: urinary tract infection Attending Provider: Eliseo Saleh Primary Care Provider: Brandon Torres Consulting Providers: Be Rodriguez; Wagner Woods; Jakub Meeks; Jatinder De La Cruz; Arminda Pringle NP; Ariella Call Instructions Additional Instructions / Restrictions: recommend you obtain Ferrous sulfate 325 mg and take one twice a day for your anemia Discharge Orders/Prescriptions Prescriptions: New levofloxacin 500 mg tablet 500 mg PO DAILY Qty: 10 0RF Rx Instructions: start on 07/03/23 prednisone 10 mg tablet 10 mg PO UD Qty: 18 0RF Rx Instructions: two twice a day for 2 days, then 3 per day for 2 days, then two daily for 2 days, then stop triamcinolone acetonide 0.1 % cream 1 applic topical BID Qty: 80 0RF Rx Instructions: apply thinly to affected skin areas Continued Januvia 50 mg tablet 50 mg PO DAILY rosuvastatin [Crestor] 20 mg tablet 20 mg PO QHS calcium carbonate-vitamin D3 [Calcium 600 with Vitamin D3] 600 mg(1,500mg) - 500 unit capsule 1 cap PO DAILY magnesium oxide 400 mg magnesium capsule 400 mg PO DAILY ascorbate calcium (vitamin C) 500 mg tablet 500 mg PO DAILY tizanidine [Zanaflex] 4 mg tablet 4 mg PO Q8H PRN (Reason: Muscle Spasm) Culturelle 10 billion cell capsule 1 cap PO DAILY pregabalin 100 mg capsule 100 mg PO DAILY multivitamin 1 EACH tablet 1 tab PO DAILY Patient Comments: vitamin pantoprazole 40 MG tablet 40 mg PO BID Patient Comments: GERD amitriptyline 25 MG tablet 25 mg PO QHS duloxetine 60 MG capsule 60 mg PO BID valacyclovir [Valtrex] 500 MG tablet 500 mg PO DAILY zinc 50 mg capsule 50 mg PO/SL DAILY fluticasone propion-salmeterol [Advair Diskus] 100-50 mcg/dose Blister With Device 1 inh INHALATION BID Entresto 49-51 mg Tablet 1 tab PO BID cetirizine [Zyrtec] 10 mg Tablet 10 mg PO DAILY alendronate 70 MG tablet 70 mg PO Rx Instructions: takes on tuesdays aspirin 81 MG tablet,delayed release (DR/EC) 81 mg PO DAILY@0800 dicyclomine 20 mg Tablet 20 mg PO TIDCM levothyroxine 112 mcg Tablet 112 mcg PO DAILY guaifenesin [Mucinex] 600 mg Tablet Extended Release 12hr 1,200 mg PO BID Eliquis 5 mg Tablet 5 mg PO BID 30 Days Qty: 60 0RF venlafaxine 75 mg tablet 75 mg PO DAILY benzonatate 100 mg capsule 100 mg PO Q8H PRN Patient Comments: 1-2 caps as needed fluticasone propion-salmeterol [Advair Diskus] 500-50 mcg/dose blister with device 1 inh INHALATION BID venlafaxine 75 mg tablet 150 mg PO QHS Changed carvedilol [Coreg] 25 mg tablet 12.5 mg PO BID Qty: 1 0RF Rx Instructions: must administer with a meal/food Referrals / Follow Up: Catalina Woods MD [Non-Staff] - (in 2-3 weeks regarding your abnormal chest CAT scan) Brandon Torres DO [Primary Care Provider] - Within 2 Weeks Disposition Disposition (needs filled in before D/C Order can be placed): Home, Self Care
--- NOTE | 2023-07-03 13:06 | DS.PCM_ITS ---
Providers Date of Admission: 07/01/23 Date of Discharge: 07/03/23 Primary Care Physician: Dr. Brandon Torres, Consultations 07/01/23 23:31 Consult: Assistant Clinical Nurse Manager / Pulmonary Medicine Routine Consulting Provider: Pulmonary Medicine kirsten Chamorro Reason for Consult: Abn CT Chest h/o tobacco abuse EMERGENT Consult: No MD Notified: Yes Date Notified: 07/02/23 Time Notified: 06:52 Method of Notification: Text Reason For Visit: COMPLICATED UTI Diagnosis Discharge Diagnosis (1) Abnormal chest CT: Status: Acute Code(s): R93.89 - Abnormal findings on diagnostic imaging of other specified body st ructures Plan 1. Acute cystitis secondary to ESBL E. coli-continue Zosyn at this time, patient remains medically stable, monitor, evaluate, assess, and treat #2 abnormal chest [id number] will follow-up as an outpatient with her pulmonary physician, pulmonary medicine saw the patient while she was in the hospital today, they recommended she follow-up as an outpatient with her ticker maintainer #3 cerebrovascular disease-patient will remain on Eliquis and aspirin #4 type 2 diabetes-patient will continue Accu-Cheks and sliding scale insulin for coverage, patient is on Sitagliptin Medications at Discharge Home Medications multivitamin 1 tab PO DAILY vitamin 12/29/17 pantoprazole 40 mg tablet,delayed release 40 mg PO BID GERD 03/29/19 amitriptyline 25 mg tablet 25 mg PO QHS mood 08/10/19 rosuvastatin 20 mg tablet (Crestor) 20 mg PO QHS cholesterol 08/25/19 sitagliptin phosphate 50 mg tablet (Januvia) 50 mg PO DAILY diabetes 09/04/19 duloxetine 60 mg capsule,delayed release 60 mg PO BID nerve pain 10/19/20 valacyclovir 500 mg tablet (Valtrex) 500 mg PO DAILY cold soars 10/19/20 tizanidine 4 mg tablet (Zanaflex) 4 mg PO Q8H PRN Muscle Spasm 01/26/21 ascorbate calcium (vitamin C) 500 mg tablet 500 mg PO DAILY vitamin 01/27/21 calcium carbonate 600 mg-vitamin D3 12.5 mcg (500 unit) capsule (Calcium 600 with Vitamin D3) 1 cap PO DAILY supplement 01/27/21 magnesium oxide 400 mg PO DAILY supplement 01/27/21 Lactobacillus rhamnosus GG 10 billion cell capsule (Culturelle) 1 cap PO DAILY supplement 05/18/21 pregabalin 100 mg capsule 100 mg PO DAILY Nerve pain 05/18/21 fluticasone 100 mcg-salmeterol 50 mcg/dose blistr powdr for inhalation (Advair Diskus) 1 inh inhalation BID Breathing 02/11/22 sacubitril 49 mg-valsartan 51 mg tablet (Entresto) 1 tab PO BID Heart 02/11/22 alendronate 70 mg tablet 70 mg PO TU BONES 02/13/22 cetirizine 10 mg tablet (Zyrtec) 10 mg PO DAILY ALLERGIES 02/13/22 aspirin 81 mg tablet,delayed release 81 mg PO DAILY@0800 Heart health 02/15/22 zinc 50 mg PO/SL DAILY supplement 05/10/22 dicyclomine 20 mg tablet 20 mg PO TIDCM 09/11/22 guaifenesin 600 mg tablet, extended release 12 hr (Mucinex) 1,200 mg PO BID cough 09/11/22 levothyroxine 112 mcg tablet 112 mcg PO DAILY thyroid 09/11/22 apixaban 5 mg tablet (Eliquis) 5 mg PO BID blood thinner 30 days #60 tabs 09/18/22 benzonatate 100 mg capsule 100 mg PO Q8H PRN cough 05/28/23 venlafaxine 75 mg tablet 75 mg PO DAILY depression 05/28/23 fluticasone 500 mcg-salmeterol 50 mcg/dose blistr powdr for inhalation (Advair Diskus) 1 inh inhalation BID breathing 05/29/23 venlafaxine 75 mg tablet 150 mg PO QHS depression 05/29/23 carvedilol 25 mg tablet (Coreg) 12.5 mg (1/2 x 25 mg) PO BID BP #1 TAB 07/03/23 levofloxacin 500 mg tablet 500 mg PO DAILY #10 tabs 07/03/23 prednisone 10 mg tablet 10 mg PO UD #18 tabs 07/03/23 triamcinolone acetonide 0.1 % topical cream 1 applic topical BID #80 grams 07/03/23 Hospital Course Operations None Procedures None Summary of Care Provided Minutes Spent on Discharge: 31 Hospital Course: 62-year-old white female was seen in the emergency room at [facility] with complaints of dysuria, frequency, and urgency. Lab was obtained which showed the patient's hemoglobin to be 8.3, white blood cell count was normal at 8.6, patient's chemistry panel was unremarkable, urinalysis indicated the patient had a urinary tract infection with more than 100 white cells and +3 bacteria. Patient's blood pressure was noted to be low in the emergency room she was given a fluid bolus. Patient was admitted to PCU for acute cystitis, she was given IV antibiotics, her urine culture resulted in showing E. coli with she was ESBL, it was sensitive to Cipro however. Patient's hemoglobin remained stable during her hospitalization. On 07/03/2023, patient was seen and examined: On examination she appeared in good health and spirits, she does not appear to be in any distress. Vital signs as documented. Skin warm and dry and without overt rashes. Neck without JVD, thy roid appears normal, trachea is midline, neck is supple. Lungs clear, normal air movement was noted. Heart exam notable for regular rhythm, normal sounds and absence of murmurs, rubs or gallops. Abdomen unremarkable and without evidence of organomegaly, masses, or abdominal aortic enlargement, bowel sounds are present in all 4 quadrants, no abdominal tenderness was noted. Extremities nonedematous, no cyanosis was noted, no clubbing was noted. Neuro: Cranial nerves II through XII are grossly intact, no focal motor deficits were noted, sensation to light touch and pinprick is intact, motor exam 5/5 throughout. Psych: Patient is alert and oriented x3, she does not appear anxious or depressed, she does not appear agitated. On 07/03/2023, patient appeared to be stable for discharge home in stable condition. Weight / BMI Weight Weight: 100.3 kg Body Mass Index (BMI) 37.9 ABG / Lab / Microbiology Data 07/02/23 06:01 07/02/23 06:01 Laboratory: Laboratory Results - last 24 hr 07/02/23 06:01: Iron 22 L, TIBC 194 L, Iron Saturation 11.3 L Microbiology: Microbiology 07/01/23 17:06 Urine, Catheterized Urine Culture - Final Escherichia coli D/C Instructions Discharge Diet: No restrictions Weight Bearing Status: Full weight bearing Meaningful Use Info Meaningful Use Diagnoses (Choose all that apply): None applicable Discharge Plan Admission Admit Date/Time: 07/01/23 20:33 Primary Reason for Your Visit: urinary tract infection Attending Provider: Eliseo Saleh Primary Care Provider: Brandon Torres Consulting Providers: Be Rodriguez; Wagner Woods; Jakub Meeks; Jatinder De La Cruz; Arminda Pringle NP; Ariella Call Instructions Additional Instructions / Restrictions: recommend you obtain Ferrous sulfate 325 mg and take one twice a day for your anemia Discharge Orders/Prescriptions Prescriptions: New levofloxacin 500 mg tablet 500 mg PO DAILY Qty: 10 0RF Rx Instructions: start on 07/03/23 prednisone 10 mg tablet 10 mg PO UD Qty: 18 0RF Rx Instructions: two twice a day for 2 days, then 3 per day for 2 days, then two daily for 2 days, then stop triamcinolone acetonide 0.1 % cream 1 applic topical BID Qty: 80 0RF Rx Instructions: apply thinly to affected skin areas Continued Januvia 50 mg tablet 50 mg PO DAILY rosuvastatin [Crestor] 20 mg tablet 20 mg PO QHS calcium carbonate-vitamin D3 [Calcium 600 with Vitamin D3] 600 mg(1,500mg) - 500 unit capsule 1 cap PO DAILY magnesium oxide 400 mg magnesium capsule 400 mg PO DAILY ascorbate calcium (vitamin C) 500 mg tablet 500 mg PO DAILY tizanidine [Zanaflex] 4 mg tablet 4 mg PO Q8H PRN (Reason: Muscle Spasm) Culturelle 10 billion cell capsule 1 cap PO DAILY pregabalin 100 mg capsule 100 mg PO DAILY multivitamin 1 EACH tablet 1 tab PO DAILY Patient Comments: vitamin pantoprazole 40 MG tablet 40 mg PO BID Patient Comments: GERD amitriptyline 25 MG tablet 25 mg PO QHS duloxetine 60 MG capsule 60 mg PO BID valacyclovir [Valtrex] 500 MG tablet 500 mg PO DAILY zinc 50 mg capsule 50 mg PO/SL DAILY fluticasone propion-salmeterol [Advair Diskus] 100-50 mcg/dose Blister With Device 1 inh INHALATION BID Entresto 49-51 mg Tablet 1 tab PO BID cetirizine [Zyrtec] 10 mg Tablet 10 mg PO DAILY alendronate 70 MG tablet 70 mg PO Rx Instructions: takes on tuesdays aspirin 81 MG tablet,delayed release (DR/EC) 81 mg PO DAILY@0800 dicyclomine 20 mg Tablet 20 mg PO TIDCM levothyroxine 112 mcg Tablet 112 mcg PO DAILY guaifenesin [Mucinex] 600 mg Tablet Extended Release 12hr 1,200 mg PO BID Eliquis 5 mg Tablet 5 mg PO BID 30 Days Qty: 60 0RF venlafaxine 75 mg tablet 75 mg PO DAILY benzonatate 100 mg capsule 100 mg PO Q8H PRN Patient Comments: 1-2 caps as needed fluticasone propion-salmeterol [Advair Diskus] 500-50 mcg/dose blister with device 1 inh INHALATION BID venlafaxine 75 mg tablet 150 mg PO QHS Changed carvedilol [Coreg] 25 mg tablet 12.5 mg PO BID Qty: 1 0RF Rx Instructions: must administer with a meal/food Referrals / Follow Up: Catalina Woods MD [Non-Staff] - (in 2-3 weeks regarding your abnormal chest CAT scan) Brandon Torres DO [Primary Care Provider] - 07/10/23 10:00 am Disposition Disposition (needs filled in before D/C Order can be placed): Home, Self Care Charges/Coding Visit Charges Inpatient E&M: 60338 Disch Hosp >30min
[2023-07-03] MEDS: Pregabalin 50 MG Capsule PO (13:31)
[2023-07-03] MEDS: Loratadine 10 MG Tablet PO (13:33)
[2023-07-03] MEDS: DULoxetine Hcl 60 MG Capsule PO (13:33)
[2023-07-03] MEDS: Venlafaxine HCl 75 MG Tablet PO (13:33)
[2023-07-03] MEDS: Magnesium Chloride 64 MG Delay Rel.Tablet 128 MG PO (13:34)
[2023-07-03] MEDS: APIXABAN 5 MG TABLET PO (13:34)
[2023-07-03] MEDS: guaiFENesin 1,200 MG Tablet 1200 MG PO (13:35)
[2023-07-03] MEDS: Calcium Carb/Vitamin D 1 TABLET Tablet PO (13:35)
[2023-07-03] MEDS: Pantoprazole Sodium 40 MG Tablet PO (13:36)
[2023-07-03] MEDS: LINAGLIPTIN 5 MG TABLET PO (13:36)
[2023-07-03] MEDS: Ascorbic Acid 500 MG Tablet PO (13:37)
[2023-07-03] MEDS: Acyclovir 200 MG Capsule 400 MG PO (13:38)
--- NOTE | 2023-07-03 15:03 | PHA.DC_ITS ---
Pharmacy [facility] has performed discharge medication reconciliation and counseling for this patient. The patient was counseled on the following discharge medications and changes in medications for homegoing were reviewed. 1. LEVOFLOXACIN 2. PREDNISONE 3. TRIAMCINOLONE CREAM The Reason for Use, instructions for use, and potential side effects were reviewed for all new medications. The patient's questions regarding all of their medications were answered. The patient was able to verbally demonstrate an understanding of their discharge medications. The patient's discharge medication list was reviewed for discrepancies and discrepancies were resolved. Patient was counselled by Wendy Shahid PharmD Candidate Medications at Discharge Home Medications multivitamin 1 tab PO DAILY vitamin 12/29/17 pantoprazole 40 mg tablet,delayed release 40 mg PO BID GERD 03/29/19 amitriptyline 25 mg tablet 25 mg PO QHS mood 08/10/19 rosuvastatin 20 mg tablet (Crestor) 20 mg PO QHS cholesterol 08/25/19 sitagliptin phosphate 50 mg tablet (Januvia) 50 mg PO DAILY diabetes 09/04/19 duloxetine 60 mg capsule,delayed release 60 mg PO BID nerve pain 10/19/20 valacyclovir 500 mg tablet (Valtrex) 500 mg PO DAILY cold soars 10/19/20 tizanidine 4 mg tablet (Zanaflex) 4 mg PO Q8H PRN Muscle Spasm 01/26/21 ascorbate calcium (vitamin C) 500 mg tablet 500 mg PO DAILY vitamin 01/27/21 calcium carbonate 600 mg-vitamin D3 12.5 mcg (500 unit) capsule (Calcium 600 with Vitamin D3) 1 cap PO DAILY supplement 01/27/21 magnesium oxide 400 mg PO DAILY supplement 01/27/21 Lactobacillus rhamnosus GG 10 billion cell capsule (Culturelle) 1 cap PO DAILY supplement 05/18/21 pregabalin 100 mg capsule 100 mg PO DAILY Nerve pain 05/18/21 fluticasone 100 mcg-salmeterol 50 mcg/dose blistr powdr for inhalation (Advair Diskus) 1 inh inhalation BID Breathing 02/11/22 sacubitril 49 mg-valsartan 51 mg tablet (Entresto) 1 tab PO BID Heart 02/11/22 alendronate 70 mg tablet 70 mg PO TU BONES 02/13/22 cetirizine 10 mg tablet (Zyrtec) 10 mg PO DAILY ALLERGIES 02/13/22 aspirin 81 mg tablet,delayed release 81 mg PO DAILY@0800 Heart health 02/15/22 zinc 50 mg PO/SL DAILY supplement 05/10/22 dicyclomine 20 mg tablet 20 mg PO TIDCM 09/11/22 guaifenesin 600 mg tablet, extended release 12 hr (Mucinex) 1,200 mg PO BID cough 09/11/22 levothyroxine 112 mcg tablet 112 mcg PO DAILY thyroid 09/11/22 apixaban 5 mg tablet (Eliquis) 5 mg PO BID blood thinner 30 days #60 tabs 09/18/22 benzonatate 100 mg capsule 100 mg PO Q8H PRN cough 05/28/23 venlafaxine 75 mg tablet 75 mg PO DAILY depression 05/28/23 fluticasone 500 mcg-salmeterol 50 mcg/dose blistr powdr for inhalation (Advair Diskus) 1 inh inhalation BID breathing 05/29/23 venlafaxine 75 mg tablet 150 mg PO QHS depression 05/29/23 carvedilol 25 mg tablet (Coreg) 12.5 mg (1/2 x 25 mg) PO BID BP #1 TAB 07/03/23 levofloxacin 500 mg tablet 500 mg PO DAILY #10 tabs 07/03/23 prednisone 10 mg tablet 10 mg PO UD #18 tabs 07/03/23 triamcinolone acetonide 0.1 % topical cream 1 applic topical BID #80 grams 07/03/23
--- NOTE | 2023-07-03 15:07 | CASEMGMT ---
Patient has order for discharge. RN CM in to discuss needs at discharge. Patient denies needs at discharge. Patient denied further questions or concerns.
== END 2023-07-03 16:20 | disposition home or self-care (01) | DRG 689 ==
LOC: ED 20:31 → PCU 20:36
PROVIDERS: Admitting Provider Internal Medicine; Emergency Provider Emergency Medicine; PCP Student in an Organized Health Care Education/Training Program; Visit Provider Internal Medicine
DX: N30.00 Acute cystitis without hematuria (principal); G93.41 Metabolic encephalopathy; I13.0 Hypertensive heart and chronic kidney disease with heart failure and stage 1 through stage 4 chronic kidney disease, or unspecified chronic kidney disease; I42.8 Other cardiomyopathies; I50.22 Chronic systolic (congestive) heart failure; E11.22 Type 2 diabetes mellitus with diabetic chronic kidney disease; E11.40 Type 2 diabetes mellitus with diabetic neuropathy, unspecified; D53.9 Nutritional anemia, unspecified; B96.20 Unspecified Escherichia coli [E. coli] as the cause of diseases classified elsewhere; I95.9 Hypotension, unspecified; N18.30 Chronic kidney disease, stage 3 unspecified; J44.9 Chronic obstructive pulmonary disease, unspecified; E11.51 Type 2 diabetes mellitus with diabetic peripheral angiopathy without gangrene; Z79.4 Long term (current) use of insulin; M48.02 Spinal stenosis, cervical region; I25.10 Atherosclerotic heart disease of native coronary artery without angina pectoris; K21.9 Gastro-esophageal reflux disease without esophagitis; E78.5 Hyperlipidemia, unspecified; E66.9 Obesity, unspecified; R53.81 Other malaise; Z79.84 Long term (current) use of oral hypoglycemic drugs; M81.0 Age-related osteoporosis without current pathological fracture; Z82.5 Family history of asthma and other chronic lower respiratory diseases; Z79.01 Long term (current) use of anticoagulants; Z79.82 Long term (current) use of aspirin; Z68.38 Body mass index [BMI] 38.0-38.9, adult; Z79.51 Long term (current) use of inhaled steroids; Z86.73 Personal history of transient ischemic attack (TIA), and cerebral infarction without residual deficits; Z87.891 Personal history of nicotine dependence; Z79.83 Long term (current) use of bisphosphonates; Z79.2 Long term (current) use of antibiotics; Z87.440 Personal history of urinary (tract) infections; Z87.01 Personal history of pneumonia (recurrent); R93.89 Abnormal findings on diagnostic imaging of other specified body structures
CPT/HCPCS: 36415; 36569; 71046; 71260; 73030; 74177; 80048; 80053; 81001; 82962; 83540; 83550; 83605; 83735; 84100; 84443; 85025; 87040; 87086; 87088; 87186; 93005; 94640; 94668; 97161; 97802; 99285; J7030; J7050; P9612; Q9967; A4216; J2405

== ENCOUNTER 2023-07-12 20:24 | Emergency (ER) | payer MEDICARE, MEDICAID, SELFPAY ==
[2023-07-12 20:26] VITALS: BP 176/81; PULSE 93; RESP 16; TEMP 36.4; O2SAT 100
--- NOTE | 2023-07-12 20:40 | RAD_ITS ---
STUDY: X-RAY - RIGHT TIBIA AND FIBULA REASON FOR EXAM: Female, 62 years old. INJURY TECHNIQUE: 2 view(s) of the tibia and fibula were obtained. COMPARISON: 02/11/2022. FINDINGS: No evidence of acute fracture or dislocation. Postsurgical changes of the distal fibula and tibia with fixation hardware. Prominent talotibial degenerative changes worse than prior study. Grossly satisfactory appearance of knee arthroplasty. Localized mild soft tissue swelling of the medial lower calf. Otherwise the soft tissue structures are unremarkable. RAD/Tibia & Fibula 2 Views IMPRESSION: No acute fracture or dislocation seen. Electronically Signed: David Weiner MD at 21:26 EDT ,
[2023-07-12 22:01] VITALS: BMI 38.2
--- NOTE | 2023-07-12 22:05 | ED.RN ---
PT HAS SKIN TEAR TO LEFT ELBOW, LEFT KNEE, AND RIGHT ELBOW. BLEEDING CONTROLLED.
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
[2023-07-12 22:33] VITALS: BP 141/76; PULSE 79; RESP 18; O2SAT 98
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
== END 2023-07-12 22:39 | disposition home or self-care (01) ==
PROVIDERS: Emergency Provider Emergency Medicine; PCP Student in an Organized Health Care Education/Training Program; Visit Provider Emergency Medicine
DX: S80.11XA Contusion of right lower leg, initial encounter (principal); I50.22 Chronic systolic (congestive) heart failure; I13.0 Hypertensive heart and chronic kidney disease with heart failure and stage 1 through stage 4 chronic kidney disease, or unspecified chronic kidney disease; E11.40 Type 2 diabetes mellitus with diabetic neuropathy, unspecified; E11.22 Type 2 diabetes mellitus with diabetic chronic kidney disease; N18.30 Chronic kidney disease, stage 3 unspecified; Z87.891 Personal history of nicotine dependence; I25.10 Atherosclerotic heart disease of native coronary artery without angina pectoris; E78.5 Hyperlipidemia, unspecified; Z99.3 Dependence on wheelchair; Z86.73 Personal history of transient ischemic attack (TIA), and cerebral infarction without residual deficits; K21.9 Gastro-esophageal reflux disease without esophagitis; F32.A Depression, unspecified; Z79.899 Other long term (current) drug therapy; M81.0 Age-related osteoporosis without current pathological fracture; Z79.82 Long term (current) use of aspirin; E03.9 Hypothyroidism, unspecified; Z79.01 Long term (current) use of anticoagulants; Z96.653 Presence of artificial knee joint, bilateral; Z90.49 Acquired absence of other specified parts of digestive tract; S50.312A Abrasion of left elbow, initial encounter; S80.211A Abrasion, right knee, initial encounter; V00.838A Other accident with motorized mobility scooter, initial encounter
CPT/HCPCS: 73590; 99282

== ENCOUNTER 2023-10-24 09:07 | Observation (INO) | payer MEDICARE, MEDICAID, SELFPAY ==
[2023-10-24] VITALS (13 sets, daily range): BP systolic 119–225; BP diastolic 75–130; PULSE 97–138; RESP 15–22; TEMP 35.7–37.2; O2SAT 95–99; BMI 33.3; BMI 32.5
[2023-10-24 09:53] LABS: Basophil# 0.06 X10^3/uL; Basophil% 0.4 % (0-1); Hematocrit 41.3 % (37-47); Lymphocyte % 8.7 % (19-41); Mean Corp Hgb Conc 31.5 g/dL (32-36); Mean Corpuscular Hgb 29.7 pg (27.0-32.0); Mean Corpuscular Volume 94.3 fL (81-99); Mean Platelet Vol. 10.4 fl (6.2-12.0); Monocyte# 0.51 X10^3/uL; Monocyte% 3.2 % (0-10); NRBC Flagged by Analyzer 0 % (0-5); Neutrophil # 13.99 X10^3/uL (2.7-7.7); Neutrophil % 86.9 % (47-70); Platelet Count 303 K/mm3 (150-450); RBC Distribution Width SD 55.1 fl (35.1-43.9); Red Blood Count 4.38 M/mm3 (4.2-5.4); White Blood Count 16.1 K/mm3 (4.4-11.0)
--- NOTE | 2023-10-24 09:54 | CT_ITS ---
STUDY: CT CHEST, ABDOMEN T PELVIS WITH CONTRAST REASON FOR EXAM: Female, 62 years old. Nausea and vomiting. Stage III chronic renal disease. Colitis. RADIATION DOSAGE (If Supplied By Facility): CTDIvol = ( 19.00 ) mGy, DLP = ( 2036.10 ) mGycm TECHNIQUE: Transaxial imaging was performed following intravenous administration of IV 100mL Isovue-370. Multiplanar coronal and sagittal images were reformatted. Individualized dose optimization techniques were used for this CT. COMPARISON: Comparison is made with prior CT scan of the chest dated July 01, 2023. 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 Elevation of the right hemidiaphragm. The previously seen infiltrate in the right lower lobe has cleared. There is no demonstrated pleural abnormality. Normal heart and pericardium. Normal mediastinum. Normal hilar regions. Normal unenhanced pulmonary arteries. Normal aorta arch and descending thoracic aorta. There are multi-level degenerative changes of the thoracic spine. There is no demonstrated abnormality of the visualized upper abdomen. ABDOMEN Normal liver. The patient is status post cholecystectomy. Normal spleen. There is diffuse atrophy of the pancreas. Normal bilateral adrenal glands. Normal right kidney. Normal left kidney. Normal visualized stomach. Normal small intestine. Large amount of fecal material is seen throughout the colon. The appendix is visualized and appears normal. There is diffuse atherosclerotic calcification of the abdominal aorta, without a demonstrated aneurysm. Normal inferior vena cava. Normal retroperitoneum. Normal abdominal wall. There are diffuse degenerative changes of the visualized lumbar spine. Prior endovascular fixation at the L5-S1 level with persistent anterior listhesis of L5 on S1 PELVIS Normal urinary bladder. The patient is status post hysterectomy. There is no pelvic fluid. There is no pelvic lymphadenopathy or mass lesion. There is diffuse atherosclerotic calcification of the pelvic arteries. CT/CT Chest, Abd, Pel w/Contrast IMPRESSION: Volume loss in the right upper lobe with evidence of scarring and bronchiectasis suggestive of findings in keeping with post radiation treatment. Status post cholecystectomy. Large amount of fecal material is seen in the colon. Prior intrapedicular screw fixation at the L5-S1 level with persistent anterior listhesis of L5 on S1. Spondylosis at multiple levels. Loss of height of the superior endplate of the T11 vertebrae. Electronically Signed: John Arredondo MD at 11:15 EST ,
--- NOTE | 2023-10-24 09:55 | ED.VIS.GI ---
HPI HPI - GI History of Present Illness Chief Complaint: Abd Pain Narrative Narrative: 62-year-old female presenting with abdominal pain, nausea, vomiting. She states this is been ongoing for the last couple of days. She states initially it started yesterday morning at about 8 AM and progressed again last night at 8 PM. Is not related to eating food. She states he vomited all night long. Has any black or bloody emesis. Denies constipation or diarrhea. Patient does have history of cholecystectomy and partial colectomy secondary to reticulitis. Patient does not report a history of bowel obstruction. Denies urinary complaints. States she has chills but has not checked her temperature to know if she has a fever. Patient states that she did get started on Bactrim on by Dr. Andrade for chronic MRSA lung infection. 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 Patient states has been on multiple doses of doxycycline which have not helped her. Patient denies cough or shortness of breath associated with her chronic pneumonia. Denies hemoptysis. [facility] Medical History ACTH deficiency Acute hypotension Acute respiratory failure with hypoxia Allergic rhinitis Anemia Asthma Asthma exacerbation Atherosclerosis of coronary artery without angina pectoris Bilateral leg weakness Bone fracture Brain TIA Cardiomyopathy Carotid artery stenosis Carpal tunnel syndrome Chronic constipation with suspected IBS Chronic headaches Chronic systolic (congestive) heart failure CKD (chronic kidney disease) stage 3, GFR 30-59 ml/min Complicated urinary tract infection Debility Debility Delirium Depression Diabetes mellitus Embolic stroke Essential hypertension [place] Flash pulmonary edema (01/16/21) Gait difficulty Gallstones GERD (gastroesophageal reflux disease) GI problem Herpes simplex History of Clostridium difficile infection History of CVA (cerebrovascular accident) (2018) History of depression History of emotional problems History of ischemic colitis History of MRSA infection of lungs History of stroke Hx of diverticulitis of colon Hyperlipidemia Hyperlipidemia Hypertension Hypotension Hypothyroidism Hypothyroidism Irritable bowel syndrome Kidney disease Metabolic encephalopathy Neuropathy Non-ischemic cardiomyopathy Normochromic normocytic anemia Normocytic anemia Obesity Osteoarthritis Osteopenia Osteoporosis Peripheral vascular disease Pulmonary edema Right hemiparesis Seasonal allergies Secondary adrenal insufficiency Stomach ulcer Stroke/cerebrovascular accident Trigeminal trophic syndrome Type 2 diabetes mellitus Home Medications multivitamin 1 tab PO DAILY vitamin 12/29/17 [History Last Taken 09/10/22] pantoprazole 40 mg tablet,delayed release 40 mg PO BID GERD 03/29/19 [History Last Taken 09/10/22] amitriptyline 25 mg tablet 25 mg PO QHS mood 08/10/19 [History Last Taken 09/10/22] rosuvastatin 20 mg tablet (Crestor) 20 mg PO QHS cholesterol 08/25/19 [History Last Taken 09/10/22] sitagliptin phosphate 50 mg tablet (Januvia) 50 mg PO DAILY diabetes 09/04/19 [History Last Taken 09/10/22] duloxetine 60 mg capsule,delayed release 60 mg PO BID nerve pain 10/19/20 [History Last Taken 09/10/22] valacyclovir 500 mg tablet (Valtrex) 500 mg PO DAILY cold soars 10/19/20 [History Last Taken 09/10/22] tizanidine 4 mg tablet (Zanaflex) 4 mg PO Q8H PRN Muscle Spasm 01/26/21 [History Last Taken 09/10/22] ascorbate calcium (vitamin C) 500 mg tablet 500 mg PO DAILY vitamin 01/27/21 [History Last Taken 09/10/22] calcium carbonate 600 mg-vitamin D3 12.5 mcg (500 unit) capsule (Calcium 600 with Vitamin D3) 1 cap PO DAILY supplement 01/27/21 [History Last Taken 09/10/22] magnesium oxide 400 mg PO DAILY supplement 01/27/21 [History Last Taken 09/10/22] Lactobacillus rhamnosus GG 10 billion cell capsule (Culturelle) 1 cap PO DAILY supplement 05/18/21 [History Last Taken 09/10/22] pregabalin 100 mg capsule 100 mg PO DAILY Nerve pain 05/18/21 [History Last Taken 09/10/22] fluticasone 100 mcg-salmeterol 50 mcg/dose blistr powdr for inhalation (Advair Diskus) 1 inh inhalation BID Breathing 02/11/22 [History Last Taken 09/10/22] sacubitril 49 mg-valsartan 51 mg tablet (Entresto) 1 tab PO BID Heart 02/11/22 [History Last Taken 09/10/22] alendronate 70 mg tablet 70 mg PO TU BONES 02/13/22 [History Last Taken 09/05/22] cetirizine 10 mg tablet (Zyrtec) 10 mg PO DAILY ALLERGIES 02/13/22 [History Last Taken 09/10/22] aspirin 81 mg tablet,delayed release 81 mg PO DAILY@0800 Heart health 02/15/22 [History Last Taken 09/10/22] zinc 50 mg PO/SL DAILY supplement 05/10/22 [History Last Taken 09/10/22] dicyclomine 20 mg tablet 20 mg PO TIDCM 09/11/22 [History Last Taken 09/10/22] guaifenesin 600 mg tablet, extended release 12 hr (Mucinex) 1,200 mg PO BID cough 09/11/22 [History Last Taken 09/10/22] levothyroxine 112 mcg tablet 112 mcg PO DAILY thyroid 09/11/22 [History Last Taken 09/10/22] apixaban 5 mg tablet (Eliquis) 5 mg PO BID blood thinner 30 days #60 tabs 09/18/22 [Rx Last Taken Unknown] benzonatate 100 mg capsule 100 - 200 mg PO Q8H PRN cough 05/28/23 [History Last Taken Unknown] venlafaxine 75 mg tablet 75 mg PO DAILY depression 05/28/23 [History Last Taken Unknown] fluticasone 500 mcg-salmeterol 50 mcg/dose blistr powdr for inhalation (Advair Diskus) 1 inh inhalation BID breathing 05/29/23 [History Last Taken Unknown] venlafaxine 75 mg tablet 150 mg PO QHS depression 05/29/23 [History Last Taken Unknown] triamcinolone acetonide 0.1 % topical cream 1 applic topical BID #80 grams 07/03/23 [Rx Last Taken Unknown] carvedilol 25 mg tablet (Coreg) 12.5 mg PO BIDCM blood pressure 10/24/23 [History Last Taken Unknown] sulfamethoxazole 800 mg-trimethoprim 160 mg tablet 1 tab PO Q12H antibiotic 10/24/23 [History Last Taken Unknown] Allergy/AdvReac Type Severity Reaction Status Date / Time adhesive Allergy skin Verified 10/24/23 09:09 irritation amlodipine [From Norvasc] Allergy tachycardia Verified 10/24/23 09:09 hydromorphone HCl Allergy Itching Verified 10/24/23 09:09 [From Dilaudid] sulfamethoxazole Allergy made my Verified 10/24/23 09:09 [From Bactrim] cold sore huge trimethoprim [From Bactrim] Allergy made my Verified 10/24/23 09:09 cold sore huge Family History Grandfather Alcoholism Grandmother Myocardial infarction Mother Arthritis Diverticulitis COPD (chronic obstructive pulmonary disease) Afib Thyroid disorder Father Arthritis Diabetes Myocardial infarction Heart disease Ischemic Hypertension Hyperlipidemia Brother Arthritis Aunt Breast cancer Sister Arthritis Thyroid disorder Skin cancer Uncle Diabetes Surgical History Ankle fracture Fracture of left femur History of angioplasty of peripheral vessel (2010) History of arthroscopic knee surgery History of back surgery History of bilateral knee replacement History of carpal tunnel release History of cholecystectomy History of intestine removal History of left heart catheterization (2011) History of tonsillectomy and adenoidectomy History of trigger finger History of ventral hernia repair Strangulated ventral hernia Social History household members: none Smoking Status: Former smoker how long ago did patient quit smokin alcohol intake: never substance use type: does not use what type of physical activity do you participate in: other ROS ROS ED Constitutional Constitutional ED: Reports chills ENT ENT ED: Denies rhinorrhea or sore throat Cardiovascular Cardiovascular: Denies chest pain or palpitations Respiratory/Chest Respiratory/Chest: Denies cough or dyspnea Gastrointestinal Gastrointestinal: Reports abdominal pain, nausea and vomiting Genitourinary Genitourinary ED: Denies dysuria Musculoskeletal Musculoskeletal: Denies arthralgias or back pain Integumentary Denies abscess or Abrasions Neurologic Neurologic: Denies headache(s) or paresthesias Psychiatric Psychiatric: Denies anxiety or depression Endocrine Endocrinology: Denies polydipsia or polyphagia EXAM Physical Exam Const Vital Signs: 10/24/23 09:09 10/24/23 11:56 10/24/23 13:00 Temperature 96.2 F L Temperature Source Temporal Pulse Rate 113 H 125 H Respiratory Rate 22 H 16 18 Blood Pressure 155/105 H 225/124 H Blood Pressure Mean 121 157 Pulse Ox 99 97 Oxygen Delivery Method Room Air Room Air 10/24/23 14:16 10/24/23 15:06 10/24/23 15:45 Temperature Temperature Source Pulse Rate 129 H 135 H 138 H Respiratory Rate 15 15 Blood Pressure 207/130 H 151/93 H 159/99 H Blood Pressure Mean 155 112 119 Pulse Ox 98 98 Oxygen Delivery Method Room Air Room Air 10/24/23 15:57 Temperature Temperature Source Pulse Rate 135 H Respiratory Rate 15 Blood Pressure 153/88 H Blood Pressure Mean 109 Pulse Ox 97 Oxygen Delivery Method Positive well nourished and obese General Appearance ED: NAD Nutritional Appearance: obese HEENT Reports moist mucous membranes normocephalic Eyes PERRL and EOMs intact bilaterally General Eye ED: Negative for pale conjunctiva Neck no lymphadenopathy Resp normal respiratory effort Auscultation: Negative for rales, rhonchi or wheezes Cardio regular rate Rate: tachycardic GI Palpation: tender periumbilical Neuro CN's II-XII intact bilaterally Sensorium / Orientation: alert Psych mental status grossly normal and thought process normal MDM MDM MDM Narrative Medical decision making narrative: Patient presenting with abdominal pain, nausea, vomiting. Differential includes UTI, pyelonephritis, colitis, diverticulitis, small bowel obstruction, gastritis, GERD, pancreatitis, bowel perforation, malignancy, dehydration, electrolyte abnormalities, allergic reaction to Bactrim as she states this is on her do not prescribe list. Patient states that this was only prescribed because the doxycycline was not working. CBC will be obtained to assess white blood cell count, hemoglobin, platelets. CMP to assess liver function, renal function, electrolytes, glucose. Lipase to assess for pancreatitis. Urinalysis to assess for UTI. Patient medicated with morphine, Zofran, 1 L of normal saline. Will obtain a CT of the abdomen pelvis with IV contrast as the patient has significant pain around her umbilical region, but also has a chronic MRSA pneumonia which I will better elucidate with a CT of the chest as well. 60,000 white count. Hemoglobin hematocrit are stable. Platelets are normal. LFTs unremarkable. Glucose slightly elevated at 188 without anion gap. Analysis negative for infection. Patient initially treated with Zofran and morphine. She continued to have nausea and she was given oral Phenergan which she did tolerate and states she started to feel better and then had repeat of her vomiting. Her blood pressure slowly got higher and she reports that she did not take her medication today which she takes for A-fib. She is now tachycardic. Initially she is given 10 hydralazine and she was given 25 of Cardizem and her blood pressure did respond however her heart rate was still tachycardic. She was given Reglan and an additional dose of Zofran and I am unable to control her nausea and with her uncontrolled blood pressure and heart rate I think she will need to stay in the hospital. Discussed with the hospitalist who wants me to give some labetalol. Patient was given 20 mg of labetalol initially. Her heart rate and blood pressure did respond. CT of the chest abdomen pelvis only shows constipation. There is no findings acutely in the lung as suspected. It is possible this call be side effect from medication that she states she is allergic to Bactrim. Discussed with the hospitalist for admission. Impression: 1. Leukocytosis 2. Abdominal pain 3. Nausea/vomiting 4. Constipation 5. Tachycardia 6. Hypertension Lab Data Attestation: I reviewed the patient's lab results. Labs: Laboratory Results - last 24 hr 10/24/23 10/24/23 10/24/23 09:43 11:50 14:40 WBC 16.1 H RBC 4.38 Hgb 13.0 Hct 41.3 MCV 94.3 MCH 29.7 MCHC 31.5 L RDW Std Deviation 55.1 H RDW Coeff of Lencho 16.0 H Plt Count 303 MPV 10.4 Immature Gran % (Auto) 0.800 Neut % (Auto) 86.9 H Lymph % (Auto) 8.7 L [place] % (Auto) 3.2 Eos % (Auto) 0.0 Baso % (Auto) 0.4 Absolute Neuts (auto) 14.0 H Absolute Lymphs (auto) 1.40 Nucleated RBC % 0 Sodium 137 Potassium 5.0 Chloride 104 Carbon Dioxide 24.0 Anion Gap 9 BUN 16 Creatinine 0.95 Estim Creat Clear Calc 55.25 Est GFR (MDRD) Af Amer 77 Est GFR (MDRD) Non-Af 63 BUN/Creatinine Ratio 16.9 Glucose 188 H Calcium 10.1 Total Bilirubin 0.60 AST 51 H ALT 36 Alkaline Phosphatase 76 Troponin I High Sens 51 Total Protein 8.2 Albumin 3.5 Globulin 4.7 H Albumin/Globulin Ratio 0.7 L Lipase 24 Urine Color Yellow Urine Clarity Clear Urine pH 6.5 Ur Specific [place] 1.015 Urine Protein 500 H Urine Glucose (UA) Normal Urine Ketones 15 H Urine Occult Blood 10 H Urine Nitrite Negative Urine Bilirubin Negative Urine Urobilinogen Normal Ur Leukocyte Esterase 25 H Urine RBC 0-5 SEEN Urine WBC 0-5 SEEN Ur Squamous Epith Cells 0-5 SEEN Urine Bacteria 0 SEEN Urine Mucus 0 SEEN Radiography Diagnostic Testing: Clinical Impression(s) from Imaging Studies Chest/Abdomen/Pelvis CT 10/24/23 09:54 IMPRESSION: Volume loss in the right upper lobe with evidence of scarring and bronchiectasis suggestive of findings in keeping with post radiation treatment. Status post cholecystectomy. Large amount of fecal material is seen in the colon. Prior intrapedicular screw fixation at the L5-S1 level with persistent anterior listhesis of L5 on S1. Spondylosis at multiple levels. Loss of height of the superior endplate of the T11 vertebrae. Electronically Signed: John Arredondo MD at 11:15 EST , Discharge Plan Triage Chief Complaint: Abd Pain Other Complaint: Nausea/Vomiting ED Provider: Reynaldo Carbajal Dx/Rx/DC Orders Primary Care Provider: Brandon Torres
[2023-10-24 10:10] LABS: ALB/GLOB Ratio 0.7 RATIO (0.9-2.4); AST(SGOT) 51 U/L (15-37); Alanine Aminotransfer ALT/SGPT 36 U/L (13-56); Albumin, Serum 3.5 g/dL (3.2-5.0); Alkaline Phosphatase 76 U/L (45-117); Anion Gap 9 (5-15); BUN 16 mg/dL (7-18); BUN/Creat Ratio 16.9 RATIO (10-20); Calcium,Total 10.1 mg/dL (8.5-10.1); Chloride 104 mmol/L (98-107); Creatinine, Serum 0.95 mg/dL (0.55-1.02); EST Glomerular Filtration Rate 63 mL/min (>60); Est Glom Filt Rate - Afr Amer 77 mL/min (>60); Estimated Creatinine Clearance 55.25 ml/min; Globulin 4.7 g/dL (2.2-4.2); Glucose 188 mg/dL (74-106); Lipase 24 U/L (13-75); Protein, Total 8.2 g/dL (6.4-8.2); Sodium Level 137 mmol/L (136-145)
[2023-10-24] MEDS: Morphine 4 MG/ML Syringe IV (10:47)
[2023-10-24] MEDS: Ondansetron 4 MG/2 ML Vial IV ×2 (10:47→15:52)
[2023-10-24 11:56] LABS: Bacteria 0 SEEN /hpf (None Seen); Mucous, Urine 0 SEEN /hpf (<or=2+)
[2023-10-24 11:58] LABS: Color, Urine Yellow (Yellow); Glucose, Dipstick Normal (Normal); Ketone-Dipstick 15 mg/dl (Negative); Leukocyte Esterase-Dipstick 25 /ul (Negative); Nitrite-Dipstick Negative (Negative); Occult Blood-Urine 10 /ul (Negative); Protein-Dipstick 500 mg/dl (Negative); Specific Gravity, Urine 1.015 (1.002-1.030); Urine Bilirubin Dipstick Negative (Negative); Urine Clarity Clear (Clear); Urine Urobilinogen Normal (Normal); Urine pH 6.5 (5.0 - 8.0)
[2023-10-24 12:03] LABS: Red Blood Cells-Urine 0-5 SEEN /hpf (0-5); Squamous Epithelial Cells - UA 0-5 SEEN /hpf (5-10); White Blood Cells 0-5 SEEN /hpf (0-5)
[2023-10-24] MEDS: Metoclopramide 10 MG/2 ML Vial IV (12:10)
[2023-10-24] MEDS: proMETHazine 25 MG Tablet PO (13:24)
[2023-10-24] MEDS: hydrALAZINE 20 MG/ML Vial 10 MG IV (14:16)
--- NOTE | 2023-10-24 14:25 | EKG12_ITS ---
Test Reason : Blood Pressure : / mmHG Vent. Rate : 142 BPM Atrial Rate : 142 BPM P-R Int : 122 ms QRS Dur : 090 ms QT Int : 294 ms P-R-T Axes : 021 052 076 degrees QTc Int : 452 ms Critical Test Result: High HR Sinus tachycardia ST & T wave abnormality, consider inferolateral ischemia Abnormal ECG Confirmed by PETRONA CASTRO, LUIS FERNANDO ([id number]), index editor ANASTASIA HENSON ([id number]) on 10/26/2023 1:22:45 PM Referred By: Confirmed By:LUIS FERNANDO RUSS MD
[2023-10-24] MEDS: dilTIAZem 25 MG/5 ML Vial IV BOLUS (14:50)
[2023-10-24 15:04] LABS: Troponin-I HS 51 pg/mL (3.0-54.0)
--- NOTE | 2023-10-24 16:02 | PCM.HP.STD ---
HPI - General General Date of Admission: 10/24/23 Date of Service: 10/24/23 Chief Complaint: Nausea and vomiting HPI Narrative BILL CHOI, is a 62 F who presented [facility] on 10/24/2023 due to intractable nausea and vomiting. Pt has a hx of MRSA Pna and had been on doxycycline but it wasn't working so she was switched to a Bactrim. She took her first dose on evening and then took her doses on Sunday, Sunday, and Sunday. She stated on Sunday night she began feeling somewhat nauseated and by Sunday was having some to significant nausea and vomiting. Sunday morning she was feeling worse and had intractable nausea and vomiting. She has not taken her medications since Sunday and is not sure though stay down. She states she had a bowel movement yesterday and her abdomen felt better after that but her symptoms returned again this morning. She has had no sick contacts of which she is aware. Vital signs on presentation showed a temperature of 96.2, heart rate was 113, blood pressure was 155/105 with a max of 225/124, respiratory rate has been anywhere from 15-22 and oxygen saturations are 97 to 99% on room air. She was given hydralazine for her blood pressure in the emergency department and after she was given hydralazine she became more tachycardic. Her CBC shows a leukocytosis with a white count of 16.1 and she does have a left shift with an 86.9% neutrophilia however she does appear somewhat hemoconcentrated. Her chemistry panel is overall unremarkable. Her glucose was 188. Liver functions are overall unremarkable. Lipase is normal. Specific gravity on her UA is 1.015 indicating probable dehydration but is not consistent with infection. CT of her chest, abdomen, and pelvis shows volume loss of the right upper lobe with evidence of scarring and bronchiectasis, status postcholecystectomy, large amount of fecal material in the colon, and prior intrapedicular screw fixation of L5-S1 with persistent anterior listhesis of L5 on S1 and spondylosis at multiple levels with loss of height and superior endplates of T11. He was treated with IV fluids and antiemetics as well as antihypertensives as noted by the emergency department. She stated the Zofran had helped her and she was able to take a tablet of Phenergan. She was also given Reglan and diltiazem. [facility] Medical History ACTH deficiency Acute hypotension Acute respiratory failure with hypoxia Allergic rhinitis Anemia Asthma Asthma exacerbation Atherosclerosis of coronary artery without angina pectoris Bilateral leg weakness Bone fracture Brain TIA Cardiomyopathy Carotid artery stenosis Carpal tunnel syndrome Chronic constipation with suspected IBS Chronic headaches Chronic systolic (congestive) heart failure CKD (chronic kidney disease) stage 3, GFR 30-59 ml/min Complicated urinary tract infection Debility Debility Delirium Depression Diabetes mellitus Embolic stroke Essential hypertension [place] Flash pulmonary edema (01/16/21) Gait difficulty Gallstones GERD (gastroesophageal reflux disease) GI problem Herpes simplex History of Clostridium difficile infection History of CVA (cerebrovascular accident) (2018) History of depression History of emotional problems History of ischemic colitis History of MRSA infection of lungs History of stroke Hx of diverticulitis of colon Hyperlipidemia Hyperlipidemia Hypertension Hypotension Hypothyroidism Hypothyroidism Irritable bowel syndrome Kidney disease Metabolic encephalopathy Neuropathy Non-ischemic cardiomyopathy Normochromic normocytic anemia Normocytic anemia Obesity Osteoarthritis Osteopenia Osteoporosis Peripheral vascular disease Pulmonary edema Right hemiparesis Seasonal allergies Secondary adrenal insufficiency Stomach ulcer Stroke/cerebrovascular accident Trigeminal trophic syndrome Type 2 diabetes mellitus Home Medications multivitamin 1 tab PO DAILY vitamin 12/29/17 [History Last Taken 09/10/22] pantoprazole 40 mg tablet,delayed release 40 mg PO BID GERD 03/29/19 [History Last Taken 09/10/22] amitriptyline 25 mg tablet 25 mg PO QHS mood 08/10/19 [History Last Taken 09/10/22] rosuvastatin 20 mg tablet (Crestor) 20 mg PO QHS cholesterol 08/25/19 [History Last Taken 09/10/22] sitagliptin phosphate 50 mg tablet (Januvia) 50 mg PO DAILY diabetes 09/04/19 [History Last Taken 09/10/22] duloxetine 60 mg capsule,delayed release 60 mg PO BID nerve pain 10/19/20 [History Last Taken 09/10/22] valacyclovir 500 mg tablet (Valtrex) 500 mg PO DAILY cold soars 10/19/20 [History Last Taken 09/10/22] tizanidine 4 mg tablet (Zanaflex) 4 mg PO Q8H PRN Muscle Spasm 01/26/21 [History Last Taken 09/10/22] ascorbate calcium (vitamin C) 500 mg tablet 500 mg PO DAILY vitamin 01/27/21 [History Last Taken 09/10/22] calcium carbonate 600 mg-vitamin D3 12.5 mcg (500 unit) capsule (Calcium 600 with Vitamin D3) 1 cap PO DAILY supplement 01/27/21 [History Last Taken 09/10/22] magnesium oxide 400 mg PO DAILY supplement 01/27/21 [History Last Taken 09/10/22] Lactobacillus rhamnosus GG 10 billion cell capsule (Culturelle) 1 cap PO DAILY supplement 05/18/21 [History Last Taken 09/10/22] pregabalin 100 mg capsule 100 mg PO DAILY Nerve pain 05/18/21 [History Last Taken 09/10/22] fluticasone 100 mcg-salmeterol 50 mcg/dose blistr powdr for inhalation (Advair Diskus) 1 inh inhalation BID Breathing 02/11/22 [History Last Taken 09/10/22] sacubitril 49 mg-valsartan 51 mg tablet (Entresto) 1 tab PO BID Heart 02/11/22 [History Last Taken 09/10/22] alendronate 70 mg tablet 70 mg PO TU BONES 02/13/22 [History Last Taken 09/05/22] cetirizine 10 mg tablet (Zyrtec) 10 mg PO DAILY ALLERGIES 02/13/22 [History Last Taken 09/10/22] aspirin 81 mg tablet,delayed release 81 mg PO DAILY@0800 Heart health 02/15/22 [History Last Taken 09/10/22] zinc 50 mg PO/SL DAILY supplement 05/10/22 [History Last Taken 09/10/22] dicyclomine 20 mg tablet 20 mg PO TIDCM 09/11/22 [History Last Taken 09/10/22] guaifenesin 600 mg tablet, extended release 12 hr (Mucinex) 1,200 mg PO BID cough 09/11/22 [History Last Taken 09/10/22] levothyroxine 112 mcg tablet 112 mcg PO DAILY thyroid 09/11/22 [History Last Taken 09/10/22] apixaban 5 mg tablet (Eliquis) 5 mg PO BID blood thinner 30 days #60 tabs 09/18/22 [Rx Last Taken Unknown] benzonatate 100 mg capsule 100 - 200 mg PO Q8H PRN cough 05/28/23 [History Last Taken Unknown] venlafaxine 75 mg tablet 75 mg PO DAILY depression 05/28/23 [History Last Taken Unknown] fluticasone 500 mcg-salmeterol 50 mcg/dose blistr powdr for inhalation (Advair Diskus) 1 inh inhalation BID breathing 05/29/23 [History Last Taken Unknown] venlafaxine 75 mg tablet 150 mg PO QHS depression 05/29/23 [History Last Taken Unknown] triamcinolone acetonide 0.1 % topical cream 1 applic topical BID #80 grams 07/03/23 [Rx Last Taken Unknown] carvedilol 25 mg tablet (Coreg) 12.5 mg PO BIDCM blood pressure 10/24/23 [History Last Taken Unknown] sulfamethoxazole 800 mg-trimethoprim 160 mg tablet 1 tab PO Q12H antibiotic 10/24/23 [History Last Taken Unknown] Allergy/AdvReac Type Severity Reaction Status Date / Time adhesive Allergy skin Verified 10/24/23 09:09 irritation amlodipine [From Norvasc] Allergy tachycardia Verified 10/24/23 09:09 hydromorphone HCl Allergy Itching Verified 10/24/23 09:09 [From Dilaudid] sulfamethoxazole Allergy made my Verified 10/24/23 09:09 [From Bactrim] cold sore huge trimethoprim [From Bactrim] Allergy made my Verified 10/24/23 09:09 cold sore huge Family History Grandfather Alcoholism Grandmother Myocardial infarction Mother Arthritis Diverticulitis COPD (chronic obstructive pulmonary disease) Afib Thyroid disorder Father Arthritis Diabetes Myocardial infarction Heart disease Ischemic Hypertension Hyperlipidemia Brother Arthritis Aunt Breast cancer Sister Arthritis Thyroid disorder Skin cancer Uncle Diabetes Surgical History Ankle fracture Fracture of left femur History of angioplasty of peripheral vessel (2010) History of arthroscopic knee surgery History of back surgery History of bilateral knee replacement History of carpal tunnel release History of cholecystectomy History of intestine removal History of left heart catheterization (2011) History of tonsillectomy and adenoidectomy History of trigger finger History of ventral hernia repair Strangulated ventral hernia Social History household members: none Smoking Status: Former smoker how long ago did patient quit smokin alcohol intake: never substance use type: does not use what type of physical activity do you participate in: other ROS Constitutional Constitutional: Reports malaise and weakness; Denies anorexia, change in weight, chills, fatigue, fever(s), night sweats or other Eyes Eyes: Denies blurry vision, change in eye color, change in vision, discharge from eye(s), double vision, erythema, eye pain, loss of vision or other ENT HEENT: Denies abnormal hearing, dysphagia, ear pain, epistaxis, headache(s), hearing loss, nasal congestion, nasal discharge, post nasal drip, sinus pressure, sore throat or other Cardiovascular Cardiovascular: Denies chest pain, claudication, dyspnea on exertion, edema, lightheadedness, orthopnea, palpitations, paroxysmal nocturnal dyspnea, rapid heart rate, syncope or other Respiratory/Chest Respiratory/Chest: Reports cough, dyspnea and shortness of breath with exertion; Denies excessive phlegm production, hemoptysis, productive cough, shortness of breath at rest, wheezing or other Gastrointestinal Gastrointestinal: Reports abdominal pain, constipation, nausea and vomiting; Denies coffee ground emesis, diarrhea, dyspepsia, hematemesis, hematochezia, loose stools, melena or other Genitourinary Genitourinary: Denies burning urination, difficulty urinating, dysuria, hematuria, nocturia, urinary frequency, urinary hesitancy, urinary incontinence, urinary urgency or other Musculoskeletal Musculoskeletal: Reports back pain and neck pain Neurologic Neurologic: Denies abnormal gait, abnormal speech, confusion, disequilibrium, dizziness, focal weakness, headache(s), numbness, paresthesias, seizure-like activity, seizures, syncope, tingling, tremor(s) or other Psychiatric Psychiatric: Reports anxiety and depression; Denies homicidal ideation, suicidal ideation or other Endocrine Endocrinology: Denies change in body appearance, cold intolerance, excessive sweating, heat intolerance, polydipsia, polyuria or other Hematologic/Lymphatic Hematologic/Lymphatic: Denies anemia, easy bleeding, easy bruising, lymphadenopathy or other Allergic/Immunologic Allergic/Immunologic: Denies rhinitis, hives, eczemia, asthma or other Vital Signs Vital Signs Vital Signs: 10/24/23 09:09 10/24/23 11:56 10/24/23 13:00 Temperature 96.2 F L Temperature Source Temporal Pulse Rate 113 H 125 H Respiratory Rate 22 H 16 18 Blood Pressure 155/105 H 225/124 H Blood Pressure Mean 121 157 Pulse Ox 99 97 Oxygen Delivery Method Room Air Room Air 10/24/23 14:16 10/24/23 15:06 10/24/23 15:45 Temperature Temperature Source Pulse Rate 129 H 135 H 138 H Respiratory Rate 15 15 Blood Pressure 207/130 H 151/93 H 159/99 H Blood Pressure Mean 155 112 119 Pulse Ox 98 98 Oxygen Delivery Method Room Air Room Air 10/24/23 15:57 Temperature Temperature Source Pulse Rate 135 H Respiratory Rate 15 Blood Pressure 153/88 H Blood Pressure Mean 109 Pulse Ox 97 Oxygen Delivery Method Weight Weight: 90.7 kg Body Mass Index (BMI) 33.3 Physical Exam Const alert, oriented x3, no apparent distress and well nourished; Negative for average body habitus or healthy appearing Constitutional Narrative: Upper middle-aged, white female, sitting up in the bed in the emergency department, currently appears comfortable, no active vomiting, does not appear toxic but does not appear she is feeling great, appears chronically ill and older than stated age General Appearance: cooperative HEENT normocephalic, head/scalp atraumatic and hearing grossly normal bilaterally HEENT Narrative: Edentulous, Mallampati is 2, no thrush Eyes PERRL, EOMs intact bilaterally and conjunctivae normal Eyes Narrative: No scleral icterus Neck no lymphadenopathy and supple Neck Narrative: Trachea midline, no thyroid enlargement, neck is short and thick Resp normal respiratory effort, no retractions and no use of accessory muscles Resp Narrative: Crackles noted mostly in right upper lobe but mildly in right lower lobe with some expiratory wheeze/inspiratory wheeze, left lung field is clear Auscultation: crackles and wheezes; Negative for rhonchi Cardio regular rhythm, S1 normal heart sound, S2 normal heart sound, no murmurs, no rub, no gallops and no clicks Cardio Narrative: Sinus tachycardia GI normal to inspection, nondistended, normoactive bowel sounds and soft to palpation GI Narrative: Mild diffuse tenderness with most tenderness being central abdomen near umbilicus Extremity no clubbing, cyanosis or edema Extremity Narrative: Are 2+ Skin no wounds, skin turgor normal, no jaundice, no petechiae and no mottling Neuro oriented x3, CN's II-XII intact bilaterally, moves all extremities and no focal motor deficits Speech: speech normal Psych affect normal Psych Narrative: Eye contact is good, patient is appropriate Results Lab / Micro Data 10/24/23 09:43 10/24/23 09:43 Labs: Laboratory Results - last 24 hr 10/24/23 09:43: WBC 16.1 H, RBC 4.38, Hgb 13.0, Hct 41.3, MCV 94.3, MCH 29.7, MCHC 31.5 L, RDW Std Deviation 55.1 H, RDW Coeff of [place] 16.0 H, Plt Count 303, MPV 10.4, Immature Gran % (Auto) 0.800, Neut % (Auto) 86.9 H, Lymph % (Auto) 8.7 L, [place] % (Auto) 3.2, Eos % (Auto) 0.0, Baso % (Auto) 0.4, Absolute Neuts (auto) 14.0 H, Absolute Lymphs (auto) 1.40, Nucleated RBC % 0, Sodium 137, Potassium 5.0, Chloride 104, Carbon Dioxide 24.0, Anion Gap 9, BUN 16, Creatinine 0.95, Estim Creat Clear Calc 55.25, Est GFR (MDRD) Af Amer 77, Est GFR (MDRD) Non-Af 63, BUN/Creatinine Ratio 16.9, Glucose 188 H, Calcium 10.1, Total Bilirubin 0.60, AST 51 H, ALT 36, Alkaline Phosphatase 76, Total Protein 8.2, Albumin 3.5, Globulin 4.7 H, Albumin/Globulin Ratio 0.7 L, Lipase 24 10/24/23 11:50: Urine Color Yellow, Urine Clarity Clear, Urine pH 6.5, Ur Specific [place] 1.015, Urine Protein 500 H, Urine Glucose (UA) Normal, Urine Ketones 15 H, Urine Occult Blood 10 H, Urine Nitrite Negative, Urine Bilirubin Negative, Urine Urobilinogen Normal, Ur Leukocyte Esterase 25 H, Urine RBC 0-5 SEEN, Urine WBC 0-5 SEEN, Ur Squamous Epith Cells 0-5 SEEN, Urine Bacteria 0 SEEN, Urine Mucus 0 SEEN 10/24/23 14:40: Troponin I High Sens 51 Imagaing Radiology Impression Chest/Abdomen/Pelvis CT 10/24/23 09:54 IMPRESSION: Volume loss in the right upper lobe with evidence of scarring and bronchiectasis suggestive of findings in keeping with post radiation treatment. Status post cholecystectomy. Large amount of fecal material is seen in the colon. Prior intrapedicular screw fixation at the L5-S1 level with persistent anterior listhesis of L5 on S1. Spondylosis at multiple levels. Loss of height of the superior endplate of the T11 vertebrae. Electronically Signed: John Arredondo MD at 11:15 EST , Assessment & Plan Assessment/Plan (1) Tachycardia: (2) Intractable nausea and vomiting: (3) Constipation: (4) Dehydration: (5) MRSA pneumonia: PLAN: Plan Intractable nausea and vomiting -Etiology is unclear -May be related to Bactrim versus constipation -Antiemetics -Will make n.p.o. with plans to progress to clear liquids once clinically improved -Okay for sips and chips and p.o. medications as ordered -Will hold Bactrim and utilize different antibiotic per discussion with Dr. Andrade from infectious disease -IV fluids with LR at 75 cc/h with history of cardiomyopathy however most recent echocardiogram shows a normal EF and patient is not on diuretics at baseline -She does not appear to be overtly dehydrated at this time -Treatment of constipation Constipation -Fleets enema x 2 every 4 hours -MiraLAX 17 g p.o. twice daily as patient thought she would be will hold this down -CT of the abdomen and pelvis shows large amount of fecal material in the colon Tachycardia -Likely related to dehydration and lack of beta-sulaiman intake as she is Coreg on a regular basis. -Patient also was given some hydralazine which may have worsened her tachycardia -Restart home Coreg -Labetalol x 1 dose given with 20 mg -Will monitor on telemetry -EKG shows sinus tach MRSA pneumonia -Patient had been on doxycycline per her tray checker, Catalina Woods and her infectious disease doctor, Dr. Andrade -Was transitioned to Bactrim but has only taken 2 days and now developed intractable nausea and vomiting -Per discussion with Dr. Andrade we will place her on vancomycin while she is hospitalized -Consult ID History of macrocytic anemia -Hemoglobin is currently 13 and I do not have a recent hemoglobin since June 2023 at which time she was 8.3 -She is mildly dry and do anticipate drop in hemoglobin with hydration -Repeat CBC in a.m. -Continue to monitor as patient is fully anticoagulated with Eliquis History of stroke -Patient with recent embolic stroke 09/2022 -MRI showed abnormality in the left anterior parietal lobe and small acute ischemic stroke in the right cerebellar hemisphere that was suggestive of embolic disease -Continue Eliquis -Continue aspirin Carotid artery stenosis-right ICA -50 to 69% -Continue outpatient follow-up -Continue medical therapy History of COPD -Currently no signs of exacerbation -As needed albuterol -Continue home medications DM-2 -Hold home oral agents -SSI every 6 hours until p.o. diet can be started -Accu-Cheks as ordered every 6 hours -When able to start diet will start cardiac/carb control Diabetic neuropathy -Continue Lyrica GERD -Continue PPI HTN/HPL -Continue oral antihypertensives -As needed labetalol for breakthrough with nausea -Continue home statin History of cardiomyopathy -Most recent EF is between 55 and 60% -Continue home medications as appropriate History of cold sores -Continue home daily Valtrex Osteoporosis -Continue home alendronate Chronic pain/neuropathy -Continue Lyrica -Continue as needed tizanidine Depression/anxiety -Continue home medications once confirmed Obesity -BMI 33.3 -Complicates treatment, prognosis, outcomes -Recommend weight loss DVT prophylaxis -Continue home Eliquis CODE STATUS Full code is verified on admission Charges/Coding Visit Charges Inpatient E&M: 32274 Init Hosp L2
--- NOTE | 2023-10-24 16:03 | NURSING ---
MED SURG OBS CONCEPCINO NAUSEA, VOMITING
[2023-10-24] MEDS: Labetalol (Prefilled) 20 MG/4 ML 40 MG IV (16:27)
--- NOTE | 2023-10-24 16:29 | ED.RN ---
Dr. Carbajal aware BP 151/85 HR 140, verbal order to give only 20mg Labetalol IV.
[2023-10-24] MEDS: Albuterol 2.5 MG/3 ML VIAL.NEB. INHALATION (20:40)
[2023-10-24] MEDS: Budesonide Respules 0.5 MG/2 ML AMPUL.NEB. INHALATION (20:40)
[2023-10-24] MEDS: proCHLORPERazine 10 MG/2 ML Vial 5 MG IV (21:03)
[2023-10-24] MEDS: 0.9% Normal Saline (1000mL) 1,000 ML 75 ML IV (21:08)
[2023-10-24] MEDS: Vancomycin HCl 2,000 MG in 0.9% Normal Saline (500mL Bag) 500 ML 250 MG IV (21:14)
[2023-10-24] MEDS: Acyclovir 200 MG Capsule 400 MG PO (21:15)
[2023-10-24] MEDS: Carvedilol 12.5 MG Tablet PO (21:15)
[2023-10-24] MEDS: SACUBITRIL/VALSARTAN 49-51 MG TABLET 1 EACH PO (21:15)
[2023-10-24] MEDS: Pantoprazole Sodium 40 MG Tablet PO (21:16)
[2023-10-24] MEDS: APIXABAN 5 MG TABLET PO (21:16)
[2023-10-24] MEDS: guaiFENesin 1,200 MG Tablet 1200 MG PO (21:17)
[2023-10-24] MEDS: Amitriptyline 25 MG Tablet PO (21:17)
[2023-10-24] MEDS: Atorvastatin Calcium 40 MG Tablet PO (21:17)
[2023-10-24] MEDS: Polyethylene Glycol 3350 17 GM PACKET PO (22:49)
[2023-10-24] MEDS: Fleet Enema 1 ML RC (22:49)
--- NOTE | 2023-10-24 22:52 | PCM.RX.CS ---
Consult Antibiotic Management Pharmacy has been consulted to manage selected antiobiotic: Vancomycin Type of Intervention Type of Consult: New start Suspected Infection Suspected Infection: Pneumonia Labs Labs: Sodium 137 mmol/L (136-145) 10/24/23 09:43 Potassium 5.0 mmol/L (3.5-5.1) 10/24/23 09:43 Chloride 104 mmol/L (98-107) 10/24/23 09:43 Carbon Dioxide 24.0 mmol/L (21.0-32.0) 10/24/23 09:43 Anion Gap 9 (5-15) 10/24/23 09:43 BUN 16 mg/dL (7-18) 10/24/23 09:43 Creatinine 0.95 mg/dL (0.55-1.02) 10/24/23 09:43 Est GFR (MDRD) Af Amer 77 mL/min (>60) 10/24/23 09:43 Est GFR (MDRD) Non-Af 63 mL/min (>60) 10/24/23 09:43 BUN/Creatinine Ratio 16.9 RATIO (10-20) 10/24/23 09:43 Glucose 188 mg/dL (74-106) H 10/24/23 09:43 Dosing Weight Weight used for dosin.8 kg Estimated Creatinine Clearance Estimated Creatinine Clearance: 55 Goal Trough Goal Trough: 15-20 mcg/mL Pharmacy Plan for Drug Dosing Pharmacy Plan for Drug Dosing: Pharmacy Service will continue to monitor and adjust dosing as required. Follow-Up Labs Follow-Up Labs: Trough: Vancomycin Date/Time Labs Ordered Labs to be done on [date and time ordered]: 10/26/23 @[id number]
[2023-10-24] MEDS: Insulin Lispro 100 UNIT/ML INSULN.PEN SC (23:00)
[2023-10-24 23:13] LABS: Bedside Glucose 179 mg/dL (74-106)
[2023-10-24] MEDS: Metoprolol Tartrate 5 MG/5 ML Vial 2.5 MG IV (23:41)
[2023-10-25] VITALS (7 sets, daily range): BP systolic 146–179; BP diastolic 98–108; PULSE 111–137; RESP 16–20; TEMP 37.1–37.6; O2SAT 94–98
[2023-10-25] MEDS: 0.9% Normal Saline (500mL Bag) 500 ML 999 ML IV (01:54)
[2023-10-25] MEDS: Levothyroxine 112 MCG Tablet PO (04:19)
[2023-10-25] MEDS: Carvedilol 12.5 MG Tablet PO (04:19)
[2023-10-25] MEDS: Fleet Enema 1 ML RC (04:19)
[2023-10-25] MEDS: Metoprolol Tartrate 5 MG/5 ML Vial 2.5 MG IV (04:25)
[2023-10-25 05:34] LABS: Absolute Lymphocyte Count 1.54 X10^3/uL (0.83-4.51); Absolute Neutrophil Count 10.2 X10^3/uL (2.0-7.7); Basophil# 0.05 X10^3/uL; Basophil% 0.4 % (0-1); Hematocrit 40.3 % (37-47); Hemoglobin 12.6 g/dL (12.0-15.0); Lymphocyte # 1.54 X10^3/ul (0.83-4.51); Lymphocyte % 12.3 % (19-41); Mean Corp Hgb Conc 31.3 g/dL (32-36); Mean Corpuscular Hgb 29.6 pg (27.0-32.0); Mean Corpuscular Volume 94.6 fL (81-99); Mean Platelet Vol. 10.3 fl (6.2-12.0); Monocyte# 0.73 X10^3/uL; Monocyte% 5.8 % (0-10); NRBC Flagged by Analyzer 0 % (0-5); Neutrophil # 10.16 X10^3/uL (2.7-7.7); Neutrophil % 80.8 % (47-70); Platelet Count 270 K/mm3 (150-450); RBC Distribution Width CV 16.2 % (11.6-14.6); RBC Distribution Width SD 56.4 fl (35.1-43.9); Red Blood Count 4.26 M/mm3 (4.2-5.4); White Blood Count 12.6 K/mm3 (4.4-11.0)
[2023-10-25] MEDS: Insulin Lispro 100 UNIT/ML INSULN.PEN SC (06:00)
[2023-10-25 06:15] LABS: ALB/GLOB Ratio 0.7 RATIO (0.9-2.4); AST(SGOT) 48 U/L (15-37); Alanine Aminotransfer ALT/SGPT 30 U/L (13-56); Albumin, Serum 3.1 g/dL (3.2-5.0); Alkaline Phosphatase 68 U/L (45-117); Anion Gap 9 (5-15); BUN 16 mg/dL (7-18); BUN/Creat Ratio 17.1 RATIO (10-20); Calcium,Total 8.6 mg/dL (8.5-10.1); Chloride 104 mmol/L (98-107); Creatinine, Serum 0.94 mg/dL (0.55-1.02); EST Glomerular Filtration Rate 64 mL/min (>60); Est Glom Filt Rate - Afr Amer 78 mL/min (>60); Estimated Creatinine Clearance 55.84 ml/min; Globulin 4.5 g/dL (2.2-4.2); Glucose 186 mg/dL (74-106); Magnesium 1.7 mg/dL (1.6-2.6); Phosphorus 3.4 mg/dL (2.5-4.9); Potassium 4.3 mmol/L (3.5-5.1); Protein, Total 7.6 g/dL (6.4-8.2); Sodium Level 139 mmol/L (136-145); Thyroid Stim Hormone (TSH) 1.02 uIU/mL (0.358-3.74)
[2023-10-25 06:23] LABS: Bedside Glucose 184 mg/dL (74-106)
[2023-10-25] MEDS: Albuterol 2.5 MG/3 ML VIAL.NEB. INHALATION ×2 (07:44→13:27)
[2023-10-25] MEDS: Budesonide Respules 0.5 MG/2 ML AMPUL.NEB. INHALATION (07:44)
[2023-10-25] MEDS: Pantoprazole Sodium 40 MG Tablet PO (08:27)
[2023-10-25] MEDS: Aspirin E.C. 81 MG Tablet PO (08:27)
[2023-10-25] MEDS: Polyethylene Glycol 3350 17 GM PACKET PO (08:27)
[2023-10-25] MEDS: SACUBITRIL/VALSARTAN 49-51 MG TABLET 1 EACH PO (08:27)
[2023-10-25] MEDS: Dicyclomine 10 MG Capsule 20 MG PO ×3 (08:27→16:41)
[2023-10-25] MEDS: APIXABAN 5 MG TABLET PO (08:27)
[2023-10-25] MEDS: guaiFENesin 1,200 MG Tablet 1200 MG PO (08:28)
[2023-10-25] MEDS: Acyclovir 200 MG Capsule 400 MG PO (08:28)
[2023-10-25] MEDS: Pregabalin 50 MG Capsule 100 MG PO (08:34)
--- NOTE | 2023-10-25 08:34 | PN.HOSP_ITS ---
Subjective Subjective Feels better. No further nausea and vomiting. Stated that this began when she started taking Bactrim. Objective Data Objective Data Vital Signs: Vital Signs Temp Pulse Resp BP Pulse Ox O2 Del Method 37.6 C H 124 H 19 H 152/99 H 95 Room Air 10/25/23 05:50 10/25/23 07:44 10/25/23 07:44 10/25/23 05:50 10/25/23 07:44 10/25/23 07:44 Oxygen Delivery Method Room Air Weight: 88.8 kg Body Mass Index (BMI) 32.5 Intake & Output: Intake and Output for Last 24 Hours 10/23/23 10/24/23 10/25/23 23:59 23:59 23:59 Intake Total 540 / 540 986.25 / 986.25 Balance 540 / 540 986.25 / 986.25 Lab / Micro Data 10/25/23 05:15 10/25/23 05:15 Labs: Laboratory Results - last 24 hr 10/24/23 09:43: WBC 16.1 H, RBC 4.38, Hgb 13.0, Hct 41.3, MCV 94.3, MCH 29.7, MCHC 31.5 L, RDW Std Deviation 55.1 H, RDW Coeff of Lencho 16.0 H, Plt Count 303, MPV 10.4, Immature Gran % (Auto) 0.800, Neut % (Auto) 86.9 H, Lymph % (Auto) 8.7 L, [place] % (Auto) 3.2, Eos % (Auto) 0.0, Baso % (Auto) 0.4, Absolute Neuts (auto) 14.0 H, Absolute Lymphs (auto) 1.40, Nucleated RBC % 0, Sodium 137, Potassium 5.0, Chloride 104, Carbon Dioxide 24.0, Anion Gap 9, BUN 16, Creatinine 0.95, Estim Creat Clear Calc 55.25, Est GFR (MDRD) Af Amer 77, Est GFR (MDRD) Non-Af 63, BUN/Creatinine Ratio 16.9, Glucose 188 H, Calcium 10.1, Total Bilirubin 0.60, AST 51 H, ALT 36, Alkaline Phosphatase 76, Total Protein 8.2, Albumin 3.5, Globulin 4.7 H, Albumin/Globulin Ratio 0.7 L, Lipase 24 10/24/23 11:50: Urine Color Yellow, Urine Clarity Clear, Urine pH 6.5, Ur Specific [place] 1.015, Urine Protein 500 H, Urine Glucose (UA) Normal, Urine Ketones 15 H, Urine Occult Blood 10 H, Urine Nitrite Negative, Urine Bilirubin Negative, Urine Urobilinogen Normal, Ur Leukocyte Esterase 25 H, Urine RBC 0-5 SEEN, Urine WBC 0-5 SEEN, Ur Squamous Epith Cells 0-5 SEEN, Urine Bacteria 0 SEEN, Urine Mucus 0 SEEN 10/24/23 14:40: Troponin I High Sens 51 10/24/23 22:56: POC Glucose 179 H 10/25/23 05:15: WBC 12.6 H, RBC 4.26, Hgb 12.6, Hct 40.3, MCV 94.6, MCH 29.6, MCHC 31.3 L, RDW Std Deviation 56.4 H, RDW Coeff of [place] 16.2 H, Plt Count 270, MPV 10.3, Immature Gran % (Auto) 0.700, Neut % (Auto) 80.8 H, Lymph % (Auto) 12 .3 L, [place] % (Auto) 5.8, Eos % (Auto) 0.0, Baso % (Auto) 0.4, Absolute Neuts (auto) 10.2 H, Absolute Lymphs (auto) 1.54, Nucleated RBC % 0, Sodium 139, Potassium 4.3, Chloride 104, Carbon Dioxide 26.0, Anion Gap 9, BUN 16, Creatinine 0.94, Estim Creat Clear Calc 55.84, Est GFR (MDRD) Af Amer 78, Est GFR (MDRD) Non-Af 64, BUN/Creatinine Ratio 17.1, Glucose 186 H, Calcium 8.6, Phosphorus 3.4, Magnesium 1.7, Total Bilirubin 0.70, AST 48 H, ALT 30, Alkaline Phosphatase 68, Total Protein 7.6, Albumin 3.1 L, Globulin 4.5 H, Albumin/Globulin Ratio 0.7 L, TSH 1.02 10/25/23 05:59: POC Glucose 184 H Radiography Diagnostic Testing: Radiology Impression Chest/Abdomen/Pelvis CT 10/24/23 09:54 IMPRESSION: Volume loss in the right upper lobe with evidence of scarring and bronchiectasis suggestive of findings in keeping with post radiation treatment. Status post cholecystectomy. Large amount of fecal material is seen in the colon. Prior intrapedicular screw fixation at the L5-S1 level with persistent anterior listhesis of L5 on S1. Spondylosis at multiple levels. Loss of height of the superior endplate of the T11 vertebrae. Electronically Signed: John Arredondo MD at 11:15 EST , Physical Exam Const alert and no apparent distress HEENT head/scalp atraumatic Resp normal respiratory effort, no retractions, no use of accessory muscles and clear to auscultation bilaterally Cardio regular rate, regular rhythm, S1 normal heart sound and S2 normal heart sound GI normal to inspection, nondistended, normoactive bowel sounds Assessment & Plan Assessment/Plan (1) Tachycardia: (2) Intractable nausea and vomiting: (3) Constipation: (4) Dehydration: (5) MRSA pneumonia: PLAN: Plan Intractable nausea and vomiting * Resolved. Likely secondary to Bactrim. Bactrim sent is added to the allergy list. * CLD. ADAT. Constipation * Fleets enema x 2 every 4 hours. -MiraLAX 17 g p.o. twice daily as patient thought she would be will hold this down * CT of the abdomen and pelvis shows large amount of fecal material in the colon Tachycardia * -Likely related to dehydration and lack of beta-sulaiman intake as she is Coreg on a regular basis. Patient also was given some hydralazine which may have worsened her tachycardia. * Carvedilol. MRSA pneumonia * Patient had been on doxycycline per her chief lock operator, Catalina Woods and her infectious disease doctor, Dr. Andrade. Was transitioned to Bactrim but has only taken 2 days and now developed intractable nausea and vomiting. Per discussion with Dr. Andrade we will place her on vancomycin while she is hospitalized * Seen by infectious disease who is recommending amadacycline for 5 more days. Chronic conditions: * History of macrocytic anemia Stable. Monitor * History of stroke-Patient with recent embolic stroke 09/2022. MRI showed abnormality in the left anterior parietal lobe and small acute ischemic stroke in the right cerebellar hemisphere that was suggestive of embolic disease. Continue apixaban and aspirin. * Carotid artery stenosis-right ICA-50 to 69%. Continue outpatient follow-up. Continue medical therapy * History of COPD Currently no signs of exacerbation. As needed albuterol. Continue home medications * DM-2. Hold home oral agents. SSI every 6 hours until p.o. diet can be started. Accu-Cheks as ordered every 6 hours. When able to start diet will start cardiac/carb control * Diabetic neuropathy: Continue Lyrica * GERD-Continue PPI * HTN/HPL-Continue oral antihypertensives-As needed labetalol for breakthrough with nausea-Continue home statin * History of cardiomyopathy-Most recent EF is between 55 and 60%-Continue home medications as appropriate * History of cold sores-Continue home daily Valtrex * Osteoporosis-Continue home alendronate * Chronic pain/neuropathy-Continue Lyrica-Continue as needed tizanidine * Depression/anxiety: continue duloxetine and venlafexine. * Obesity-BMI 33.3. Complicates treatment, prognosis, outcomes. Recommend weight loss DVT prophylaxis -Continue home Eliquis CODE STATUS Full code is verified on admission Discharge home
--- NOTE | 2023-10-25 09:46 | CASEMGMT ---
Patient is active with [facility] and her case packer is Sreekanth. SW called [facility] and spoke with Lyle Tatum on the coverage line. [facility] [place] also does nursing assessments every 60 days for patient. Zulema June WELL SERVICING RIG OPERATORMaite GONGORA
--- NOTE | 2023-10-25 10:30 | PCM.CONS.GEN ---
Assessment & Plan Assessment/Plan (1) MRSA pneumonia: PLAN: Failed po doxy. Intolerant of bactrim. Unable to use linezolid due to multiple drugs with risk of serotonin syndrome. Will order po omadacycline for 5 more days. Ok for d/c home. Will follow as needed, thank you, d/w Dr. Call yesterday (2) Intractable nausea and vomiting: HPI Consult Data Date of Consult: 10/25/23 HPI Narrative Reason for Consultation: mrsa pneumonia HPI Narrative: BILL CHOI, is a 62 F who presented with recurrent MRSA pneumonia. Had been on po doxy for 2 weeks with no improvement. Saw ID last week, changed to po bactrim but developed intractable n/v. Came to ED, admitted on iv vanc. Breathing is better overall, now n/v is much improved. Full ROS performed and neg except as noted above. [facility] Medical History ACTH deficiency Acute hypotension Acute respiratory failure with hypoxia Allergic rhinitis Anemia Asthma Asthma exacerbation Atherosclerosis of coronary artery without angina pectoris Bilateral leg weakness Bone fracture Brain TIA Cardiomyopathy Carotid artery stenosis Carpal tunnel syndrome Chronic constipation with suspected IBS Chronic headaches Chronic systolic (congestive) heart failure CKD (chronic kidney disease) stage 3, GFR 30-59 ml/min Complicated urinary tract infection Debility Debility Delirium Depression Diabetes mellitus Embolic stroke Essential hypertension [place] Flash pulmonary edema (01/16/21) Gait difficulty Gallstones GERD (gastroesophageal reflux disease) GI problem Herpes simplex History of Clostridium difficile infection History of CVA (cerebrovascular accident) (2018) History of depression History of emotional problems History of ischemic colitis History of MRSA infection of lungs History of stroke Hx of diverticulitis of colon Hyperlipidemia Hyperlipidemia Hypertension Hypotension Hypothyroidism Hypothyroidism Irritable bowel syndrome Kidney disease Metabolic encephalopathy Neuropathy Non-ischemic cardiomyopathy Normochromic normocytic anemia Normocytic anemia Obesity Osteoarthritis Osteopenia Osteoporosis Peripheral vascular disease Pulmonary edema Right hemiparesis Seasonal allergies Secondary adrenal insufficiency Stomach ulcer Stroke/cerebrovascular accident Trigeminal trophic syndrome Type 2 diabetes mellitus Home Medications multivitamin 1 tab PO DAILY SUPPLEMENT 12/29/17 [History Last Taken 10/24/23] pantoprazole 40 mg tablet,delayed release 40 mg PO BID GERD 03/29/19 [History Last Taken 10/24/23] amitriptyline 25 mg tablet 25 mg PO QHS MOOD 08/10/19 [History Last Taken 10/23/23] rosuvastatin 20 mg tablet (Crestor) 20 mg PO QHS CHOLESTEROL 08/25/19 [History Last Taken 10/23/23] sitagliptin phosphate 50 mg tablet (Januvia) 50 mg PO DAILY DIABETES 09/04/19 [History Last Taken 10/24/23] duloxetine 60 mg capsule,delayed release 60 mg PO BID DEPRESSION 10/19/20 [History Last Taken 10/24/23] valacyclovir 500 mg tablet (Valtrex) 500 mg PO DAILY COLD SORES 10/19/20 [History Last Taken 10/24/23] tizanidine 4 mg tablet (Zanaflex) 4 mg PO Q8H PRN MUSCLE SPASMS 01/26/21 [History Last Taken 09/10/22] Lactobacillus rhamnosus GG 10 billion cell capsule (Culturelle) 1 cap PO DAILY GUT HEALTH 05/18/21 [History Last Taken 10/24/23] pregabalin 100 mg capsule 100 mg PO DAILY PAIN 05/18/21 [History Last Taken 10/24/23] fluticasone 100 mcg-salmeterol 50 mcg/dose blistr powdr for inhalation (Advair Diskus) 1 inh inhalation BID SHORTNESS OF BREATH 02/11/22 [History Last Taken 10/24/23] sacubitril 49 mg-valsartan 51 mg tablet (Entresto) 1 tab PO BID HEART 02/11/22 [History Last Taken 10/24/23] alendronate 70 mg tablet 70 mg PO TU BONES 02/13/22 [History Last Taken 10/23/23] aspirin 81 mg tablet,delayed release 81 mg PO DAILY@0800 HEART HEALTH 02/15/22 [History Last Taken 10/24/23] dicyclomine 20 mg tablet 20 mg PO TIDCM IRRITABLE BOWELS 09/11/22 [History Last Taken 10/24/23] guaifenesin 600 mg tablet, extended release 12 hr (Mucinex) 1,200 mg PO BID COUGH 09/11/22 [History Last Taken 10/24/23] levothyroxine 112 mcg tablet 112 mcg PO DAILY THYROID 09/11/22 [History Last Taken 10/24/23] apixaban 5 mg tablet (Eliquis) 5 mg PO BID blood thinner 30 days #60 tabs 09/18/22 [Rx Last Taken 10/24/23] benzonatate 100 mg capsule 100 - 200 mg PO Q8H PRN COUGH 05/28/23 [History Last Taken Unknown] venlafaxine 75 mg tablet 75 mg PO DAILY DEPRESSION 05/28/23 [History Last Taken 10/24/23] venlafaxine 75 mg tablet 150 mg PO QHS DEPRESSION 05/29/23 [History Last Taken 10/23/23] carvedilol 25 mg tablet (Coreg) 25 mg PO BIDCM HEART 10/24/23 [History Last Taken 10/24/23] hydrocodone 7.5 mg-acetaminophen 325 mg tablet 1 - 2 tab PO Q8H PRN PAIN 10/24/23 [History Last Taken Unknown] omadacycline 150 mg tablet (Nuzyra) 300 mg (2 x 150 mg) PO BID 5 days #20 tabs 10/25/23 [Rx Last Taken Unknown] Allergy/AdvReac Type Severity Reaction Status Date / Time adhesive Allergy skin Verified 10/24/23 09:09 irritation amlodipine [From Norvasc] Allergy tachycardia Verified 10/24/23 09:09 hydromorphone HCl Allergy Itching Verified 10/24/23 09:09 [From Dilaudid] sulfamethoxazole Allergy made my Verified 10/24/23 09:09 [From Bactrim] cold sore huge trimethoprim [From Bactrim] Allergy made my Verified 10/24/23 09:09 cold sore huge Family History Grandfather Alcoholism Grandmother Myocardial infarction Mother Arthritis Diverticulitis COPD (chronic obstructive pulmonary disease) Afib Thyroid disorder Father Arthritis Diabetes Myocardial infarction Heart disease Ischemic Hypertension Hyperlipidemia Brother Arthritis Aunt Breast cancer Sister Arthritis Thyroid disorder Skin cancer Uncle Diabetes Surgical History Ankle fracture Fracture of left femur History of angioplasty of peripheral vessel (2010) History of arthroscopic knee surgery History of back surgery History of bilateral knee replacement History of carpal tunnel release History of cholecystectomy History of intestine removal History of left heart catheterization (2011) History of tonsillectomy and adenoidectomy History of trigger finger History of ventral hernia repair Strangulated ventral hernia Social History household members: none Smoking Status: Former smoker how long ago did patient quit smokin alcohol intake: never substance use type: does not use what type of physical activity do you participate in: other Physical Exam Const alert, oriented x3 and no apparent distress General Appearance: cooperative HEENT normocephalic and head/scalp atraumatic Neck supple and No nodes Resp normal air movement Resp Narrative: relatively clear Cardio regular rate and regular rhythm GI soft to palpation, non-tender and non-distended Extremity General Extremity: Negative for edema Skin no rashes or lesions noted Neuro CN's II-XII intact bilaterally Lab / Micro Data Attestation: I reviewed the patient's lab results. 10/25/23 05:15 10/25/23 05:15 Labs: Laboratory Results - last 24 hr 10/24/23 11:50: Urine Color Yellow, Urine Clarity Clear, Urine pH 6.5, Ur Specific [place] 1.015, Urine Protein 500 H, Urine Glucose (UA) Normal, Urine Ketones 15 H, Urine Occult Blood 10 H, Urine Nitrite Negative, Urine Bilirubin Negative, Urine Urobilinogen Normal, Ur Leukocyte Esterase 25 H, Urine RBC 0-5 SEEN, Urine WBC 0-5 SEEN, Ur Squamous Epith Cells 0-5 SEEN, Urine Bacteria 0 SEEN, Urine Mucus 0 SEEN 10/24/23 14:40: Troponin I High Sens 51 10/24/23 22:56: POC Glucose 179 H 10/25/23 05:15: WBC 12.6 H, RBC 4.26, Hgb 12.6, Hct 40.3, MCV 94.6, MCH 29.6, MCHC 31.3 L, RDW Std Deviation 56.4 H, RDW Coeff of [place]cho 16.2 H, Plt Count 270, MPV 10.3, Immature Gran % (Auto) 0.700, Neut % (Auto) 80.8 H, Lymph % (Auto) 12.3 L, [place] % (Auto) 5.8, Eos % (Auto) 0.0, Baso % (Auto) 0.4, Absolute Neuts (auto) 10.2 H, Absolute Lymphs (auto) 1.54, Nucleated RBC % 0, Sodium 139, Potassium 4.3, Chloride 104, Carbon Dioxide 26.0, Anion Gap 9, BUN 16, Creatinine 0.94, Estim Creat Clear Calc 55.84, Est GFR (MDRD) Af Amer 78, Est GFR (MDRD) Non-Af 64, BUN/Creatinine Ratio 17.1, Glucose 186 H, Calcium 8.6, Phosphorus 3.4, Magnesium 1.7, Total Bilirubin 0.70, AST 48 H, ALT 30, Alkaline Phosphatase 68, Total Protein 7.6, Albumin 3.1 L, Globulin 4.5 H, Albumin/Globulin Ratio 0.7 L, TSH 1.02 10/25/23 05:59: POC Glucose 184 H Imagaing Radiology Impression Chest/Abdomen/Pelvis CT 10/24/23 09:54 IMPRESSION: Volume loss in the right upper lobe with evidence of scarring and bronchiectasis suggestive of findings in keeping with post radiation treatment. Status post cholecystectomy. Large amount of fecal material is seen in the colon. Prior intrapedicular screw fixation at the L5-S1 level with persistent anterior listhesis of L5 on S1. Spondylosis at multiple levels. Loss of height of the superior endplate of the T11 vertebrae. Electronically Signed: John Arredondo MD at 11:15 EST ,
[2023-10-25] MEDS: Vancomycin HCl 750 MG in 0.9% Normal Saline (250mL Bag) 250 ML 250 MG IV (10:36)
[2023-10-25] MEDS: DULoxetine Hcl 60 MG Capsule PO (10:37)
[2023-10-25] MEDS: Venlafaxine HCl 75 MG Tablet PO (10:37)
[2023-10-25 11:53] LABS: Bedside Glucose 149 mg/dL (74-106)
--- NOTE | 2023-10-25 12:04 | CHAPLAIN ---
Type of Pastoral Visit _x__ Initial Visit ___ Follow-up Visit ___ On-call Visit ___ General Patient Visit ___ Spiritual Assessment ___ Family Conference ___ Bereavement ___ Rapid Response ___ Code Blue ___ Other (describe below) Pastoral Care Referral From _x__ Patient ___ Family ___ Nurse ___ Physician ___ Grocery Clerk Marking ___ Senior Benefits Specialist ___ Other (describe below) Sacrament/Intervention _x__ Active listening ___ Anointing ___ Synagogue ___ Bereavement ___ Communion ___ Jaye exploration ___ _x__ Life review ___ Prayer ___ Reconciliation ___ Sacrament of Sick _x__ Supportive presence ___ Wedding ___ Other (describe below) Pastoral Comments patient describes her illness and states that she is much improved now; pt reports being anxious to get home and to her pet; pt states that she expects a quiet [place] which is her preference; pt states that other than feeling better she has no other needs at this time
--- NOTE | 2023-10-25 13:03 | DS.PCM_ITS ---
Providers Date of Admission: 10/24/23 Primary Care Physician: Dr. Brandon Torres, Consultations 10/24/23 17:59 Consult: Infectious Disease Routine Consulting Provider: Ilia Andrade Reason for Consult: MRSA PNA EMERGENT Consult: No MD Notified: Yes Date Notified: 10/24/23 Time Notified: 16:48 Method of Notification: Verbal Reason For Visit: NAUSEA AND VOMITING Diagnosis Discharge Diagnosis (1) Tachycardia: Status: Acute Code(s): R00.0 - Tachycardia, unspecified (2) Intractable nausea and vomiting: Status: Acute Code(s): R11.2 - Nausea with vomiting, unspecified (3) Constipation: Status: Acute Code(s): K59.00 - Constipation, unspecified (4) Dehydration: Status: Acute Code(s): E86.0 - Dehydration (5) MRSA pneumonia: Status: Acute Code(s): J15.212 - Pneumonia due to Methicillin resistant Staphylococcus aureus Plan Intractable nausea and vomiting * Resolved. Likely secondary to Bactrim. Bactrim sent is added to the allergy list. * CLD. ADAT. Constipation * Fleets enema x 2 every 4 hours. -MiraLAX 17 g p.o. twice daily as patient thought she would be will hold this down * CT of the abdomen and pelvis shows large amount of fecal material in the colon Tachycardia * -Likely related to dehydration and lack of beta-sulaiman intake as she is Coreg on a regular basis. Patient also was given some hydralazine which may have worsened her tachycardia. * Carvedilol. MRSA pneumonia * Patient had been on doxycycline per her advanced practice professional, Catalina Woods and her infectious disease doctor, Dr. Andrade. Was transitioned to Bactrim but has only taken 2 days and now developed intractable nausea and vomiting. Per discussion with Dr. Andrade we will place her on vancomycin while she is hospitalized * Seen by infectious disease who is recommending amadacycline for 5 more days. Chronic conditions: * History of macrocytic anemia Stable. Monitor * History of stroke-Patient with recent embolic stroke 09/2022. MRI showed abno rmality in the left anterior parietal lobe and small acute ischemic stroke in the right cerebellar hemisphere that was suggestive of embolic disease. Continue apixaban and aspirin. * Carotid artery stenosis-right ICA-50 to 69%. Continue outpatient follow-up. Continue medical therapy * History of COPD Currently no signs of exacerbation. As needed albuterol. Continue home medications * DM-2. Hold home oral agents. SSI every 6 hours until p.o. diet can be started. Accu-Cheks as ordered every 6 hours. When able to start diet will start cardiac/carb control * Diabetic neuropathy: Continue Lyrica * GERD-Continue PPI * HTN/HPL-Continue oral antihypertensives-As needed labetalol for breakthrough with nausea-Continue home statin * History of cardiomyopathy-Most recent EF is between 55 and 60%-Continue home medications as appropriate * History of cold sores-Continue home daily Valtrex * Osteoporosis-Continue home alendronate * Chronic pain/neuropathy-Continue Lyrica-Continue as needed tizanidine * Depression/anxiety: continue duloxetine and venlafexine. * Obesity-BMI 33.3. Complicates treatment, prognosis, outcomes. Recommend weight loss DVT prophylaxis -Continue home Eliquis CODE STATUS Full code is verified on admission Discharge home Medications at Discharge Home Medications multivitamin 1 tab PO DAILY SUPPLEMENT 12/29/17 pantoprazole 40 mg tablet,delayed release 40 mg PO BID GERD 03/29/19 amitriptyline 25 mg tablet 25 mg PO QHS MOOD 08/10/19 rosuvastatin 20 mg tablet (Crestor) 20 mg PO QHS CHOLESTEROL 08/25/19 sitagliptin phosphate 50 mg tablet (Januvia) 50 mg PO DAILY DIABETES 09/04/19 duloxetine 60 mg capsule,delayed release 60 mg PO BID DEPRESSION 10/19/20 valacyclovir 500 mg tablet (Valtrex) 500 mg PO DAILY COLD SORES 10/19/20 tizanidine 4 mg tablet (Zanaflex) 4 mg PO Q8H PRN MUSCLE SPASMS 01/26/21 Lactobacillus rhamnosus GG 10 billion cell capsule (Culturelle) 1 cap PO DAILY GUT HEALTH 05/18/21 pregabalin 100 mg capsule 100 mg PO DAILY PAIN 05/18/21 fluticasone 100 mcg-salmeterol 50 mcg/dose blistr powdr for inhalation (Advair Diskus) 1 inh inhalation BID SHORTNESS OF BREATH 02/11/22 sacubitril 49 mg-valsartan 51 mg tablet (Entresto) 1 tab PO BID HEART 02/11/22 alendronate 70 mg tablet 70 mg PO TU BONES 02/13/22 aspirin 81 mg tablet,delayed release 81 mg PO DAILY@0800 HEART HEALTH 02/15/22 dicyclomine 20 mg tablet 20 mg PO TIDCM IRRITABLE BOWELS 09/11/22 guaifenesin 600 mg tablet, extended release 12 hr (Mucinex) 1,200 mg PO BID COUGH 09/11/22 levothyroxine 112 mcg tablet 112 mcg PO DAILY THYROID 09/11/22 apixaban 5 mg tablet (Eliquis) 5 mg PO BID blood thinner 30 days #60 tabs benzonatate 100 mg capsule 100 - 200 mg PO Q8H PRN COUGH 05/28/23 venlafaxine 75 mg tablet 75 mg PO DAILY DEPRESSION 05/28/23 venlafaxine 75 mg tablet 150 mg PO QHS DEPRESSION 05/29/23 carvedilol 25 mg tablet (Coreg) 25 mg PO BIDCM HEART 10/24/23 hydrocodone 7.5 mg-acetaminophen 325 mg tablet 1 - 2 tab PO Q8H PRN PAIN 10/24/23 omadacycline 150 mg tablet (Nuzyra) 300 mg (2 x 150 mg) PO BID 5 days #20 tabs 10/25/23 Hospital Course Operations None Procedures None Summary of Care Provided Minutes Spent on Discharge: 32 Hospital Course: Presents with intractable nausea and vomiting after started Bactrim. Patient is on Bactrim due to recurrent MRSA pneumonia. Patient started on 2 days prior to arrival. Patient felt fine before initiating the Bactrim. Patient was treated supportively here and felt better. Due to the history of MRSA pneumonia, patient was seen by infectious disease and ordered Omadacycline for 5 more days. Patient will follow-up with her pulmonologists as well as infectious disease as needed. Weight / BMI Weight Weight: 88.8 kg Body Mass Index (BMI) 32.5 ABG / Lab / Microbiology Data 10/25/23 05:15 10/25/23 05:15 Laboratory: Laboratory Results - last 24 hr 10/24/23 14:40: Troponin I High Sens 51 10/24/23 22:56: POC Glucose 179 H 10/25/23 05:15: WBC 12.6 H, RBC 4.26, Hgb 12.6, Hct 40.3, MCV 94.6, MCH 29.6, MCHC 31.3 L, RDW Std Deviation 56.4 H, RDW Coeff of Lencho 16.2 H, Plt Count 270, MPV 10.3, Immature Gran % (Auto) 0.700, Neut % (Auto) 80.8 H, Lymph % (Auto) 12.3 L, Parmer % (Auto) 5.8, Eos % (Auto) 0.0, Baso % (Auto) 0.4, Absolute Neuts (auto) 10.2 H, Absolute Lymphs (auto) 1.54, Nucleated RBC % 0, Sodium 139, Potassium 4.3, Chloride 104, Carbon Dioxide 26.0, Anion Gap 9, BUN 16, Creatinine 0.94, Estim Creat Clear Calc 55.84, Est GFR (MDRD) Af Amer 78, Est GFR (MDRD) Non-Af 64, BUN/Creatinine Ratio 17.1, Glucose 186 H, Calcium 8.6, Phosphorus 3.4, Magnesium 1.7, Total Bilirubin 0.70, AST 48 H, ALT 30, Alkaline Phosphatase 68, Total Protein 7.6, Albumin 3.1 L, Globulin 4.5 H, Albumin/Globulin Ratio 0.7 L, TSH 1.02 10/25/23 05:59: POC Glucose 184 H 10/25/23 11:26: POC Glucose 149 H D/C Instructions Discharge Diet: No restrictions Meaningful Use Info Meaningful Use Diagnoses (Choose all that apply): None applicable Discharge Plan Admission Admit Date/Time: 10/24/23 16:40 Primary Reason for Your Visit: Intractable nausea and vomiting. Attending Provider: Alfa Foy Primary Care Provider: Brandon Torres Consulting Providers: Ilia Andrade; Ariella Call Instructions Additional Instructions / Restrictions: You had intractable nausea and vomiting secondary to Bactrim. This has been added to your allergy list here. Notify your [facility] physicians of your adverse reaction of nausea and vomiting with Bactrim so you do not get prescribed that in the future or any similar medications. Dr. Andrade ordered a different antibiotic for you. Please take that antibiotic till completion. Please follow-up with your advanced practice professional in the next month or so and follow your primary care doctor in the next coming weeks. Discharge Orders/Prescriptions Prescriptions: New Nuzyra 150 mg tablet 300 mg PO BID 5 Days Qty: 20 0RF Rx Instructions: 300 mg orally; Continued Januvia 50 mg tablet 50 mg PO DAILY rosuvastatin [Crestor] 20 mg tablet 20 mg PO QHS tizanidine [Zanaflex] 4 mg tablet 4 mg PO Q8H PRN (Reason: MUSCLE SPASMS ) Culturelle 10 billion cell capsule 1 cap PO DAILY pregabalin 100 mg capsule 100 mg PO DAILY multivitamin 1 EACH tablet 1 tab PO DAILY pantoprazole 40 MG tablet 40 mg PO BID amitriptyline 25 MG tablet 25 mg PO QHS duloxetine 60 MG capsule 60 mg PO BID valacyclovir [Valtrex] 500 MG tablet 500 mg PO DAILY fluticasone propion-salmeterol [Advair Diskus] 100-50 mcg/dose Blister With Device 1 inh INHALATION BID Entresto 49-51 mg Tablet 1 tab PO BID alendronate 70 MG tablet 70 mg PO TU aspirin 81 MG tablet,delayed release (DR/EC) 81 mg PO DAILY@0800 dicyclomine 20 mg Tablet 20 mg PO TIDCM levothyroxine 112 mcg Tablet 112 mcg PO DAILY guaifenesin [Mucinex] 600 mg Tablet Extended Release 12hr 1,200 mg PO BID Eliquis 5 mg Tablet 5 mg PO BID 30 Days Qty: 60 0RF carvedilol [Coreg] 25 mg tablet 25 mg PO BIDCM hydrocodone-acetaminophen 7.5-325 mg tablet 1 - 2 tab PO Q8H PRN (Reason: PAIN ) venlafaxine 75 mg tablet 75 mg PO DAILY benzonatate 100 mg capsule 100 - 200 mg PO Q8H PRN (Reason: COUGH ) venlafaxine 75 mg tablet 150 mg PO QHS Discontinued sulfamethoxazole-trimethoprim 800-160 mg tablet 1 tab PO Q12H Patient Comments: NEW RX FILLED A 14 DAY SUPPLY WITH THE DIRECTIONS OF TAKE ONE TABLET BY MOUTH TWICE DAILY START DATE:10-17-23 END DATE: 10-31-23 Referrals / Follow Up: Catalina Woods MD [Non-Staff] - Within 1 Month Brandon Torres DO [Primary Care Provider] - Within 2 Weeks Disposition Disposition (needs filled in before D/C Order can be placed): Home, Self Care Charges/Coding Visit Charges Inpatient E&M: 97381 Disch Hosp >30min
--- NOTE | 2023-10-25 15:29 | CASEMGMT ---
Addendum entered and electronically signed by Tomeka Sam RN 10/25/23 15:35: This RN CM phoned pt's [facility] RN CM Sreekanth to discuss options to obtain pt's medication in [place]. Voicemail message left and Sreekanth return call. Discussed need. Sreekanth states there are not any immediate transportation options available and this type of transportation would need set up 3-4 days ahead of time. DRE Gonzalez Original Note: RN CM: 1345: This RN CM noted pt with script for Nuzyra. Per website, [facility] pharmacy in [place] is the only network pharmacy that provides this medication in this area. This RN CM contacted this pharmacy (phone #[phone]) and confirmed that they have the medication available, bilingual inside sales representative states they will complete the prior auth but need pt's medical record faxed to them. ( ). This RN CM notified Dr. Andrade of pharmacy to submit escript to and need to obtain prior auth and transportation to [place] to obtain the medication if authorized. Noted pt to be homebound with [facility] CM and services with assistance with transportation from sister and friend. This RN CM met with pt face to face at bedside. Pt states she does not have anyone who would be available to go to [place] to pepper picker this medication. This RN CM discussed with [facility] couriers and Marketing transportation. Marketing transportation has availability tomorrow, 10/26 at 1130/[address] to [place] to obtain medication. They have scheduled to do so pending prior authorization being obtained. 1525: Call placed to [facility] pharmacy who confirmed they did receive the escript but have not received the medical record. Medical record re-faxed to confirmed fax number at this time. DRE Gonzalez
--- NOTE | 2023-10-25 16:02 | CASEMGMT ---
RN CM: Call placed to [facility] pharmacy to confirm receipt of pt's medical records. Voicemail received and message left requesting a return call of records were not received. José Perez RN ACM
--- NOTE | 2023-10-25 16:19 | CASEMGMT ---
Addendum entered and electronically signed by Tomeka Sam RN 10/25/23 17:02: DRE DELGADILLO notified that pharmacist told pt medication would not be to her home until Sunday. This DRE DELGADILLO called [facility] and confirmed this to be true. Will return to original plan of fruit or nut picker with delivery to pt's home. DRE Gonzalez Original Note: DRE DELGADILLO Follow-up: Call placed to [facility] pharmacy. Per Joleen, pt's Nuzyra has been approved. Their pharmacist will reach out to the patient to provide counseling/education and they will ensure the medication is delivered to pt's home by tomorrow. Pick-up is not needed. Communicated the above to DRE Dominguez CM. DRE GonzalezM
[2023-10-25] MEDS: Carvedilol 25 MG Tablet PO (16:41)
== END 2023-10-25 13:08 | disposition home or self-care (01) ==
LOC: ED 09:24 → MS3 16:12 → PCU 10-25 07:49
PROVIDERS: Admitting Provider Internal Medicine; Emergency Provider Student in an Organized Health Care Education/Training Program; PCP Student in an Organized Health Care Education/Training Program
DX: J15.20 Pneumonia due to staphylococcus, unspecified (principal); I13.0 Hypertensive heart and chronic kidney disease with heart failure and stage 1 through stage 4 chronic kidney disease, or unspecified chronic kidney disease; I50.22 Chronic systolic (congestive) heart failure; I42.8 Other cardiomyopathies; E11.40 Type 2 diabetes mellitus with diabetic neuropathy, unspecified; E11.22 Type 2 diabetes mellitus with diabetic chronic kidney disease; N18.30 Chronic kidney disease, stage 3 unspecified; E86.0 Dehydration; Z79.51 Long term (current) use of inhaled steroids; E78.5 Hyperlipidemia, unspecified; Z68.33 Body mass index [BMI] 33.0-33.9, adult; Z79.82 Long term (current) use of aspirin; I25.10 Atherosclerotic heart disease of native coronary artery without angina pectoris; Z79.01 Long term (current) use of anticoagulants; K59.00 Constipation, unspecified; E66.9 Obesity, unspecified; Z79.83 Long term (current) use of bisphosphonates; Z87.891 Personal history of nicotine dependence; Z79.899 Other long term (current) drug therapy
CPT/HCPCS: 36415; 71260; 74177; 80053; 81001; 82962; 83690; 83735; 84100; 84443; 84484; 85025; 93005; 94640; 94668; 96361; 96365; 96366; 96375; 96376; 97802; 99221; 99252; 99284; J7030; J7040; J7050; Q9967; A4216; G0378; G0463; J2405

== ENCOUNTER 2024-04-25 13:20 | Emergency (ER) | payer MEDICARE, MEDICAID, SELFPAY ==
[2024-04-25] VITALS (19 sets, daily range): BP systolic 72–137; BP diastolic 46–95; PULSE 75–98; RESP 10–24; TEMP 35.9–36.9; O2SAT 92–98; BMI 36.8
--- NOTE | 2024-04-25 13:33 | EDS_ITS ---
HPI <WILLIAM Gray - Last Filed: 04/25/24 20:12> History of Present Illness Chief Complaint: Lower Extremity Injury Narrative Narrative: 63-year-old female was standing in the kitchen when her right knee felt numb and gave out. She states she twisted when she fell trying to guard her right side because she is weak on the right from a prior stroke. She landed on her right hip. No head injury or LOC. Her aide was there and called EMS to bring her in for evaluation. She has a history of right knee arthroplasty. She states she gets chronic neuropathic pain in the right side and intermittent numbness and tingling from the stroke. She ambulates at home by holding onto the furniture. [facility] <WILLIAM Gray - Last Filed: 04/25/24 20:12> [facility] Medical History History of MRSA infection of lungs Delirium Debility Falls Metabolic encephalopathy Complicated urinary tract infection Acute hypotension Brain TIA Embolic stroke Normocytic anemia History of stroke Depression Diabetes mellitus Hyperlipidemia Hypothyroidism Hypertension Stroke/cerebrovascular accident Cardiomyopathy Chronic systolic (congestive) heart failure Non-ischemic cardiomyopathy History of CVA (cerebrovascular accident) (2018) Flash pulmonary edema (01/16/21) Peripheral vascular disease History of depression Atherosclerosis of coronary artery without angina pectoris CKD (chronic kidney disease) stage 3, GFR 30-59 ml/min Asthma exacerbation Pulmonary edema Acute respiratory failure with hypoxia Trigeminal trophic syndrome Stomach ulcer Hypothyroidism Osteopenia Osteoarthritis Kidney disease Hyperlipidemia Essential hypertension Chronic headaches GI problem Gallstones History of emotional problems Type 2 diabetes mellitus Carpal tunnel syndrome Bone fracture Asthma Anemia Seasonal allergies Herpes simplex GERD (gastroesophageal reflux disease) Allergic rhinitis Irritable bowel syndrome Gait difficulty Right hemiparesis Debility Osteoporosis Normochromic normocytic anemia Secondary adrenal insufficiency ACTH deficiency Neuropathy Falls Hypotension Carotid artery stenosis Bilateral leg weakness History of ischemic colitis Chronic constipation with suspected IBS Obesity Hx of diverticulitis of colon History of Clostridium difficile infection Home Medications ?Medication ?Instructions ?Recorded ?Last Taken ?Type multivitamin 1 tab PO DAILY SUPPLEMENT 12/29/17 04/24/24 History pantoprazole 40 mg tablet,delayed 40 mg PO BID GERD 03/29/19 10/24/23 History release amitriptyline 25 mg tablet 25 mg PO QHS MOOD 08/10/19 04/24/24 History rosuvastatin 20 mg tablet (Crestor) 20 mg PO QHS CHOLESTEROL 08/25/19 04/24/24 History sitagliptin phosphate 50 mg tablet 50 mg PO DAILY DIABETES 09/04/19 04/25/24 History (Januvia) duloxetine 60 mg capsule,delayed 60 mg PO BID DEPRESSION 10/19/20 04/25/24 History release valacyclovir 500 mg tablet 500 mg PO DAILY COLD SORES 10/19/20 04/25/24 History (Valtrex) tizanidine 4 mg tablet (Zanaflex) 4 mg PO Q8H PRN MUSCLE SPASMS 01/26/21 04/24/24 History Lactobacillus rhamnosus GG 10 1 cap PO DAILY GUT HEALTH 05/18/21 04/25/24 History billion cell capsule (Culturelle) pregabalin 100 mg capsule 100 mg PO DAILY PAIN 05/18/21 04/25/24 History sacubitril 49 mg-valsartan 51 mg 1 tab PO BID HEART 02/11/22 04/25/24 History tablet (Entresto) alendronate 70 mg tablet 70 mg PO TU BONES 02/13/22 04/22/24 History aspirin 81 mg tablet,delayed 81 mg PO DAILY@0800 HEART HEALTH 02/15/22 04/25/24 History release dicyclomine 20 mg tablet 20 mg PO TIDCM IRRITABLE BOWELS 09/11/22 04/25/24 History guaifenesin 600 mg tablet, 1,200 mg PO BID COUGH 09/11/22 04/25/24 History extended release 12 hr (Mucinex) apixaban 5 mg tablet (Eliquis) 5 mg PO BID blood thinner 30 days 09/18/22 04/25/24 Rx #60 tabs benzonatate 100 mg capsule 100 - 200 mg PO Q8H PRN COUGH 05/28/23 Unknown History venlafaxine 75 mg tablet 75 mg PO DAILY DEPRESSION 05/28/23 04/25/24 History venlafaxine 75 mg tablet 150 mg PO QHS DEPRESSION 05/29/23 04/24/24 History carvedilol 25 mg tablet (Coreg) 25 mg PO BIDCM HEART 10/24/23 04/25/24 History hydrocodone 7.5 mg-acetaminophen 1 - 2 tab PO Q8H PRN PAIN 10/24/23 04/25/24 History 325 mg tablet fluticasone 500 mcg-salmeterol 50 1 ea inhalation BID 04/25/24 04/25/24 History mcg/dose blistr powdr for inhalation (Advair Diskus) levothyroxine 125 mcg tablet 125 mcg PO DAILY 04/25/24 04/25/24 History montelukast 5 mg chewable tablet 10 mg PO DAILY 04/25/24 04/25/24 History (Singulair) Allergy/AdvReac Type Severity Reaction Status Date / Time adhesive Allergy skin Verified 10/24/23 09:09 irritation amlodipine (From Norvasc) Allergy tachycardia Verified 10/24/23 09:09 hydromorphone HCl (From Allergy Itching Verified 10/24/23 09:09 Dilaudid) sulfamethoxazole (From Allergy made my Verified 10/24/23 09:09 Bactrim) cold sore huge trimethoprim (From Bactrim) Allergy made my Verified 10/24/23 09:09 cold sore huge Family History Grandfather Alcoholism Grandmother Myocardial infarction Mother Arthritis Diverticulitis COPD (chronic obstructive pulmonary disease) Afib Thyroid disorder Father Arthritis Diabetes Myocardial infarction Heart disease Ischemic Hypertension Hyperlipidemia Brother Arthritis Aunt Breast cancer Sister Arthritis Thyroid disorder Skin cancer Uncle Diabetes Surgical History History of angioplasty of peripheral vessel (2010) History of left heart catheterization (2011) History of trigger finger Ankle fracture Strangulated ventral hernia History of back surgery Fracture of left femur History of ventral hernia repair History of intestine removal History of arthroscopic knee surgery History of bilateral knee replacement History of cholecystectomy History of carpal tunnel release History of tonsillectomy and adenoidectomy Social History household members: none Smoking Status: Former smoker how long ago did patient quit smokin alcohol intake: never substance use type: does not use what type of physical activity do you participate in: other ROS <WILLIAM Gray - Last Filed: 04/25/24 20:12> ROS ED ROS Narrative Constitutional: Negative for fever, chills, malaise. CVS: Negative for chest pain, syncope. Respiratory: Negative for shortness of breath. Skin: Negative for wound. Musc: Positive for right knee pain. EXAM <WILLIAM Gray - Last Filed: 04/25/24 20:12> Physical Exam Narrative Exam Narrative: CONST: Patient sitting in no acute distress. EYES: Normal inspection. ENT: Normal inspection, moist mucous membranes. NECK: Normal inspection. RESP: No respiratory distress, CTAB. CVS: Regular rate and rhythm, no murmur, no gallop. ABD: Soft and nontender, no guarding or rebound, nondistended. Back: Normal inspection, no midline tenderness. SKIN: Color normal, no rash, warm, dry, intact. EXTREMITIES: No traumatic injuries of the upper extremities, no bony tenderness, chronic right arm weakness from CVA, 2+ radial pulses. Right leg propped up on pillows with the knee flexed. Mild knee swelling and tenderness over the distal femur and patella which is midline. Patient will not try and extend the knee secondary to pain. Pelvis stable, no tenderness of the hip ankle or foot. Normal sensation, 2+ DP pulses. Left leg nontender. NEURO: Alert and answering questions appropriately. PSYCH: Normal affect. Const Vital Signs: 04/25/24 13:22 04/25/24 13:30 04/25/24 13:45 Temperature 96.6 F L Temperature Source Temporal Pulse Rate 80 79 Respiratory Rate 13 17 Blood Pressure 124/63 H 137/95 H Blood Pressure Mean 83 110 Pulse Ox 92 Oxygen Delivery Method Room Air 04/25/24 14:13 04/25/24 14:15 04/25/24 14:16 Temperature Temperature Source Pulse Rate 78 80 78 Respiratory Rate 14 11 L Blood Pressure 128/69 H Blood Pressure Mean 86 Pulse Ox 96 Oxygen Delivery Method 04/25/24 14:30 04/25/24 14:45 04/25/24 15:00 Temperature Temperature Source Pulse Rate 86 90 79 Respiratory Rate 24 H 18 16 Blood Pressure 136/71 H Blood Pressure Mean 87 Pulse Ox 97 92 Oxygen Delivery Method 04/25/24 15:15 04/25/24 15:30 04/25/24 15:35 Temperature Temperature Source Pulse Rate 81 79 79 Respiratory Rate 16 12 13 Blood Pressure 132/70 H Blood Pressure Mean 87 Pulse Ox Oxygen Delivery Method 04/25/24 15:53 04/25/24 16:00 04/25/24 16:15 Temperature 98.4 F Temperature Source Pulse Rate 80 80 80 Respiratory Rate 22 H 10 L 16 Blood Pressure 132/70 H 105/60 108/65 Blood Pressure Mean 90 73 80 Pulse Ox 95 95 Oxygen Delivery Method Room Air 04/25/24 18:15 Temperature Temperature Source Pulse Rate 82 Respiratory Rate 18 Blood Pressure 118/80 Blood Pressure Mean 92 Pulse Ox 95 Oxygen Delivery Method Room Air <Dr. Reynaldo Carbajal DO - Last Filed: 04/25/24 17:05> Physical Exam Const Vital Signs: 04/25/24 13:22 04/25/24 13:30 04/25/24 13:45 Temperature 96.6 F L Temperature Source Temporal Pulse Rate 80 79 Respiratory Rate 13 17 Blood Pressure 124/63 H 137/95 H Blood Pressure Mean 83 110 Pulse Ox 92 Oxygen Delivery Method Room Air 04/25/24 14:13 04/25/24 14:15 04/25/24 14:16 Temperature Temperature Source Pulse Rate 78 80 78 Respiratory Rate 14 11 L Blood Pressure 128/69 H Blood Pressure Mean 86 Pulse Ox 96 Oxygen Delivery Method 04/25/24 14:30 04/25/24 14:45 04/25/24 15:00 Temperature Temperature Source Pulse Rate 86 90 79 Respiratory Rate 24 H 18 16 Blood Pressure 136/71 H Blood Pressure Mean 87 Pulse Ox 97 92 Oxygen Delivery Method 04/25/24 15:15 04/25/24 15:30 04/25/24 15:35 Temperature Temperature Source Pulse Rate 81 79 79 Respiratory Rate 16 12 13 Blood Pressure 132/70 H Blood Pressure Mean 87 Pulse Ox Oxygen Delivery Method 04/25/24 15:53 04/25/24 16:00 04/25/24 16:15 Temperature 98.4 F Temperature Source Pulse Rate 80 80 80 Respiratory Rate 22 H 10 L 16 Blood Pressure 132/70 H 105/60 108/65 Blood Pressure Mean 90 73 80 Pulse Ox 95 95 Oxygen Delivery Method Room Air 04/25/24 18:15 Temperature Temperature Source Pulse Rate 82 Respiratory Rate 18 Blood Pressure 118/80 Blood Pressure Mean 92 Pulse Ox 95 Oxygen Delivery Method Room Air MDM <Tomeka Ace PA - Last Filed: 04/25/24 20:12> MDM MDM Narrative Medical decision making narrative: Differential: Right knee contusion, fracture, quadriceps tendon rupture Consults: Hospitalist, orthopedist Patient was standing when her right knee gave out and she fell. No head injury. She has tenderness over the distal femur and patella and cannot extend the knee. Distal sensation and pulses intact. X-ray shows distal femur periprosthetic fracture. Patient states the right knee arthroplasty [place] [address] Viramontes at [facility] but she would prefer to stay here for surgery. Her last dose of Eliquis was at 6 AM this morning. I discussed the case with Dr. Pierce Gooden who states the patient can stay here and he will perform surgery on Sunday which is 48 hours post last Eliquis dose. He advised placing her leg in a traction splint and a CT of the distal femur for surgical planning. ED nursing discussed the case with the [facility] nursing staff who will place her in traction and then do CT scan afterwards. This patient was seen with a PA/FILM FLAT INSPECTOR Individually assessed they patient including history and physical. I have reviewed everything on the chart that is available and agree with the documentation provided by the PA/FILM FLAT INSPECTOR including discussion about the assessment, treatment plan, discussion, and return precautions. Patient presenting with right knee pain. Differential as above. Patient states this was nontraumatic and she was a standing in the kitchen. On exam she is tender to palpation diffusely around the right knee. X-rays of the right femur on my interpretation show a oblique fracture of the distal femoral metaphysis. There are fracture fragments around as well. Previous total knee replacement is noted. Pelvic x-ray is normal my interpretation. Discussed with Dr. Gooden who will keep the patient for surgical repair although she will need to hold her Eliquis for a couple of days. He request a traction splint which we can put on upstairs however patient will be placed in a knee immobilizer in the ER for transport. She did receive 8 mg of morphine in the ER and also had taken Beaver 10 mg earlier today. She will need a CT as well for operative planning. Admitted in stable condition. Addendum to previous dictation: Patient was admitted and went upstairs to her room. At that point Dr. Gooden reviewed the CT of the knee and stated it would be too complex for him to do. I counseled him that the patient was already admitted to the floor. Apparently he had called up to the floor and had her sent back down. Dr. Luciano was made aware. I spoke with Octavia from the transfer line. The orthopedic surgeons at [facility] [place] think the patient is too complex for repair there. Orthopedic surgeon Dr. Jered Torres at [facility] accepted the patient and she is awaiting a bed. Critical care time: 40 minutes of critical care time was consumed by evaluation and treatment of the patient and discussion with multiple consultants for treatment and planning Lab Data Attestation: I reviewed the patient's lab results. Labs: Laboratory Results - last 24 hr 04/25/24 04/25/24 15:20 15:35 WBC 8.0 RBC 2.99 L Hgb 8.8 L Hct 28.5 L MCV 95.3 MCH 29.4 MCHC 30.9 L RDW Std Deviation 49.0 H RDW Coeff of Lencho 14.1 Plt Count 177 MPV 10.5 Immature Gran % (Auto) 0.400 Neut % (Auto) 76.8 H Lymph % (Auto) 13.8 L Daniels % (Auto) 5.9 Eos % (Auto) 2.5 Baso % (Auto) 0.6 Absolute Neuts (auto) 6.1 Absolute Lymphs (auto) 1.10 Nucleated RBC % 0 PT 18.0 H INR 1.5 Sodium 137 Potassium 3.8 Chloride 108 H Carbon Dioxide 16.0 L Anion Gap 13 BUN 25 H Creatinine 1.15 H Estim Creat Clear Calc 56.69 Est GFR (MDRD) Af Amer 61 Est GFR (MDRD) Non-Af 51 L BUN/Creatinine Ratio 21.7 H Glucose 79 Calcium 8.3 L Blood Type A POSITIVE Antibody Screen NEGATIVE Radiography Diagnostic Testing: Clinical Impression(s) from Imaging Studies Femur X-Ray 04/25/24 14:00 IMPRESSION: Oblique fracture of the distal femoral metaphysis with overriding of the fracture fragments. Status post total knee replacement. Soft tissue swelling. Electronically Signed: John Arredondo MD at 14:37 EDT , Pelvis X-Ray 04/25/24 14:00 IMPRESSION: No acute abnormality is seen. Electronically Signed: John Arredondo MD at 14:28 EDT , Lower Extremity CT 04/25/24 15:06 IMPRESSION: Comminuted distal femoral shaft fracture. Electronically Signed: Anjum Rice DO at 16:45 EDT , Chest X-Ray 04/25/24 15:12 IMPRESSION: There is a right apical opacity. Electronically Signed: Anjum Rice DO at 16:04 EDT , ED attending interpretation of pelvis shows no acute hip or pelvic fracture. ED attending interpretation of right knee shows a distal femur periprosthetic fracture. <Dr. Reynaldo Carbajal, - Last Filed: 04/25/24 17:05> MDM MDM Narrative Medical decision making narrative: Differential: Right knee contusion, fracture, quadriceps tendon rupture Consults: Hospitalist, orthopedist Patient was standing when her right knee gave out and she fell. No head injury. She has tenderness over the distal femur and patella and cannot extend the knee. Distal sensation and pulses intact. X-ray shows distal femur periprosthetic fracture. Patient states the right knee arthroplasty was [place] [address] Viramontes at [facility] but she would prefer to stay here for surgery. Her last dose of Eliquis was at 6 AM this morning. I discussed the case with Dr. Pierce Gooden who states the patient can stay here and he will perform surgery on Sunday which is 48 hours post last Eliquis dose. He advised placing her leg in a traction splint and a CT of the distal femur for surgical planning. ED nursing discussed the case with the [facility] nursing staff who will place her in traction and then do CT scan afterwards. This patient was seen with a PA/FILM FLAT INSPECTOR Individually assessed they patient including history and physical. I have reviewed everything on the chart that is available and agree with the documentation provided by the PA/FILM FLAT INSPECTOR including discussion about the assessment, treatment plan, discussion, and return precautions. Patient presenting with right knee pain. Differential as above. Patient states this was nontraumatic and she was a standing in the kitchen. On exam she is tender to palpation diffusely around the right knee. X-rays of the right femur on my interpretation show a oblique fracture of the distal femoral metaphysis. There are fracture fragments around as well. Previous total knee replacement is noted. Pelvic x-ray is normal my interpretation. Discussed with Dr. Gooden who will keep the patient for surgical repair although she will need to hold her Eliquis for a couple of days. He request a traction splint which we can put on upstairs however patient will be placed in a knee immobilizer in the ER for transport. She did receive 8 mg of morphine in the ER and also had taken Beaver 10 mg earlier today. She will need a CT as well for operative planning. Admitted in stable condition. Addendum to previous dictation: Patient was admitted and went upstairs to her room. At that point Dr. Gooden reviewed the CT of the knee and stated it would be too complex for him to do. I counseled him that the patient was already admitted to the floor. Apparently he had called up to the floor and had her sent back down. Dr. Luciano was made aware. Lab Data Labs: Laboratory Results - last 24 hr 04/25/24 04/25/24 15:20 15:35 WBC 8.0 RBC 2.99 L Hgb 8.8 L Hct 28.5 L MCV 95.3 MCH 29.4 MCHC 30.9 L RDW Std Deviation 49.0 H RDW Coeff of Lencho 14.1 Plt Count 177 MPV 10.5 Immature Gran % (Auto) 0.400 Neut % (Auto) 76.8 H Lymph % (Auto) 13.8 L Daniels % (Auto) 5.9 Eos % (Auto) 2.5 Baso % (Auto) 0.6 Absolute Neuts (auto) 6.1 Absolute Lymphs (auto) 1.10 Nucleated RBC % 0 PT 18.0 H INR 1.5 Sodium 137 Potassium 3.8 Chloride 108 H Carbon Dioxide 16.0 L Anion Gap 13 BUN 25 H Creatinine 1.15 H Estim Creat Clear Calc 56.69 Est GFR (MDRD) Af Amer 61 Est GFR (MDRD) Non-Af 51 L BUN/Creatinine Ratio 21.7 H Glucose 79 Calcium 8.3 L Blood Type A POSITIVE Antibody Screen NEGATIVE Radiography Diagnostic Testing: Clinical Impression(s) from Imaging Studies Femur X-Ray 04/25/24 14:00 IMPRESSION: Oblique fracture of the distal femoral metaphysis with overriding of the fracture fragments. Status post total knee replacement. Soft tissue swelling. Electronically Signed: John Arredondo MD at 14:37 EDT , Pelvis X-Ray 04/25/24 14:00 IMPRESSION: No acute abnormality is seen. Electronically Signed: John Arredondo MD at 14:28 EDT , Lower Extremity CT 04/25/24 15:06 IMPRESSION: Comminuted distal femoral shaft fracture. Electronically Signed: Anjum Rice DO at 16:45 EDT , Chest X-Ray 04/25/24 15:12 IMPRESSION: There is a right apical opacity. Electronically Signed: Anjum Rice DO at 16:04 EDT , Discharge Plan Dx/Rx/DC Orders Clinical Impression: Periprosthetic fracture around internal prosthetic right knee joint, Anticoagulant long-term use Disposition Disposition: Acute Care Hospital [facility] Discharge Date/Time: 04/25/24 16:29
[2024-04-25] MEDS: Ondansetron 4 MG/2 ML Vial IV (13:37)
[2024-04-25] MEDS: Morphine 4 MG/ML Syringe IV ×3 (13:37→17:48)
--- NOTE | 2024-04-25 14:00 | RAD_ITS ---
STUDY: X-RAY - PELVIS REASON FOR EXAM: Female, 63 years old. Pain TECHNIQUE: One view of the pelvis was obtained. COMPARISON: None. FINDINGS: Moderate amount of fecal material is seen in the colon. Normal visualized soft tissue structures. Prior fusion at the L5-S1 level. Normal bilateral iliac wings, sacroiliac joints and visualized sacrum. Normal visualized bilateral superior and inferior pubic rami. Normal pubic symphysis. Normal ischial tuberosities. Normal visualized right femoral head. Normal right acetabulum. Normal right hip joint. Normal visualized left femoral head. Normal left acetabulum. Normal left hip joint. RAD/Pelvis 1 or 2 Views IMPRESSION: No acute abnormality is seen. Electronically Signed: John Arredondo MD at 14:28 EDT ,
--- NOTE | 2024-04-25 14:00 | RAD_ITS ---
STUDY: X-RAY - RIGHT FEMUR REASON FOR STUDY: Female, 63 years old. Pain following injury. TECHNIQUE: 2 view(s) of the femur. COMPARISON: None. FINDINGS: There is evidence of a oblique fracture of the distal femoral metaphysis with overriding of the fracture fragments. Status post total knee replacement. Vascular calcification and soft tissue swelling. RAD/Femur Min 2 Views IMPRESSION: Oblique fracture of the distal femoral metaphysis with overriding of the fracture fragments. Status post total knee replacement. Soft tissue swelling. Electronically Signed: John Arredondo MD at 14:37 EDT ,
[2024-04-25] MEDS: 0.9% Normal Saline (500mL Bag) 500 ML 999 ML IV (14:17)
--- NOTE | 2024-04-25 15:06 | CT_ITS ---
CT RIGHT LOWER EXTREMITY WITH 3-D IMAGING CLINICAL INDICATION: distal femur fracture TECHNIQUE: Axial CT images of the RIGHT lower extremity was performed without IV contrast material. Coronal and sagittal reformats were provided. The protocol utilizes one or more of the following dose reduction techniques: automated exposure control, adjustment of mA and/or kV according to patient size,and/or use of iterative reconstruction technique. RADIATION DOSAGE (If Supplied By Facility): CTDIvol = ( 25.07 ) mGy, DLP = ( 1400.68 ) mGycm COMPARISON: FINDINGS: There is a comminuted distal femoral shaft fracture extending to the femoral condylar level. There is mild adjacent hematoma estimated at 4.9 x 3.4 axial dimension, extending approximately 10 cm in length. There is a total knee prosthesis with metallic artifact limiting evaluation. There is a mild suprapatellar effusion. CT/Extremity Lower without Contra IMPRESSION: Comminuted distal femoral shaft fracture. Electronically Signed: Anjum Rice DO at 16:45 EDT Reading Location ID and State: [facility] / [place] Tel [phone], Service support ,
--- NOTE | 2024-04-25 15:10 | PCM.HP.STD ---
HPI - General HPI Narrative BILL CHOI, is a 63 F who presents [facility] Medical History History of MRSA infection of lungs Delirium Debility Falls Metabolic encephalopathy Complicated urinary tract infection Acute hypotension Brain TIA Embolic stroke Normocytic anemia History of stroke Depression Diabetes mellitus Hyperlipidemia Hypothyroidism Hypertension Stroke/cerebrovascular accident Cardiomyopathy Chronic systolic (congestive) heart failure Non-ischemic cardiomyopathy History of CVA (cerebrovascular accident) (2018) Flash pulmonary edema (01/16/21) Peripheral vascular disease History of depression Atherosclerosis of coronary artery without angina pectoris CKD (chronic kidney disease) stage 3, GFR 30-59 ml/min Asthma exacerbation Pulmonary edema Acute respiratory failure with hypoxia Trigeminal trophic syndrome Stomach ulcer Hypothyroidism Osteopenia Osteoarthritis Kidney disease Hyperlipidemia Essential hypertension Chronic headaches GI problem Gallstones History of emotional problems Type 2 diabetes mellitus Carpal tunnel syndrome Bone fracture Asthma Anemia Seasonal allergies Herpes simplex GERD (gastroesophageal reflux disease) Allergic rhinitis Irritable bowel syndrome Gait difficulty Right hemiparesis Debility Osteoporosis Normochromic normocytic anemia Secondary adrenal insufficiency ACTH deficiency Neuropathy Falls Hypotension Carotid artery stenosis Bilateral leg weakness History of ischemic colitis Chronic constipation with suspected IBS Obesity Hx of diverticulitis of colon History of Clostridium difficile infection Home Medications ?Medication ?Instructions ?Recorded ?Last Taken ?Type multivitamin 1 tab PO DAILY SUPPLEMENT 12/29/17 04/24/24 History pantoprazole 40 mg tablet,delayed 40 mg PO BID GERD 03/29/19 10/24/23 History release amitriptyline 25 mg tablet 25 mg PO QHS MOOD 08/10/19 04/24/24 History rosuvastatin 20 mg tablet (Crestor) 20 mg PO QHS CHOLESTEROL 08/25/19 04/24/24 History sitagliptin phosphate 50 mg tablet 50 mg PO DAILY DIABETES 09/04/19 04/25/24 History (Januvia) duloxetine 60 mg capsule,delayed 60 mg PO BID DEPRESSION 10/19/20 04/25/24 History release valacyclovir 500 mg tablet 500 mg PO DAILY COLD SORES 10/19/20 04/25/24 History (Valtrex) tizanidine 4 mg tablet (Zanaflex) 4 mg PO Q8H PRN MUSCLE SPASMS 01/26/21 04/24/24 History Lactobacillus rhamnosus GG 10 1 cap PO DAILY GUT HEALTH 05/18/21 04/25/24 History billion cell capsule (Culturelle) pregabalin 100 mg capsule 100 mg PO DAILY PAIN 05/18/21 04/25/24 History sacubitril 49 mg-valsartan 51 mg 1 tab PO BID HEART 02/11/22 04/25/24 History tablet (Entresto) alendronate 70 mg tablet 70 mg PO TU BONES 02/13/22 04/22/24 History aspirin 81 mg tablet,delayed 81 mg PO DAILY@0800 HEART HEALTH 02/15/22 04/25/24 History release dicyclomine 20 mg tablet 20 mg PO TIDCM IRRITABLE BOWELS 09/11/22 04/25/24 History guaifenesin 600 mg tablet, 1,200 mg PO BID COUGH 09/11/22 04/25/24 History extended release 12 hr (Mucinex) apixaban 5 mg tablet (Eliquis) 5 mg PO BID blood thinner 30 days 09/18/22 04/25/24 Rx #60 tabs benzonatate 100 mg capsule 100 - 200 mg PO Q8H PRN COUGH 05/28/23 Unknown History venlafaxine 75 mg tablet 75 mg PO DAILY DEPRESSION 05/28/23 04/25/24 History venlafaxine 75 mg tablet 150 mg PO QHS DEPRESSION 05/29/23 04/24/24 History carvedilol 25 mg tablet (Coreg) 25 mg PO BIDCM HEART 10/24/23 04/25/24 History hydrocodone 7.5 mg-acetaminophen 1 - 2 tab PO Q8H PRN PAIN 10/24/23 04/25/24 History 325 mg tablet fluticasone 500 mcg-salmeterol 50 1 ea inhalation BID 04/25/24 04/25/24 History mcg/dose blistr powdr for inhalation (Advair Diskus) levothyroxine 125 mcg tablet 125 mcg PO DAILY 04/25/24 04/25/24 History montelukast 5 mg chewable tablet 10 mg PO DAILY 04/25/24 04/25/24 History (Singulair) Allergy/AdvReac Type Severity Reaction Status Date / Time adhesive Allergy skin Verified 10/24/23 09:09 irritation amlodipine (From Norvasc) Allergy tachycardia Verified 10/24/23 09:09 hydromorphone HCl (From Allergy Itching Verified 10/24/23 09:09 Dilaudid) sulfamethoxazole (From Allergy made my Verified 10/24/23 09:09 Bactrim) cold sore huge trimethoprim (From Bactrim) Allergy made my Verified 10/24/23 09:09 cold sore huge Family History Grandfather Alcoholism Grandmother Myocardial infarction Mother Arthritis Diverticulitis COPD (chronic obstructive pulmonary disease) Afib Thyroid disorder Father Arthritis Diabetes Myocardial infarction Heart disease Ischemic Hypertension Hyperlipidemia Brother Arthritis Aunt Breast cancer Sister Arthritis Thyroid disorder Skin cancer Uncle Diabetes Surgical History History of angioplasty of peripheral vessel (2010) History of left heart catheterization (2011) History of trigger finger Ankle fracture Strangulated ventral hernia History of back surgery Fracture of left femur History of ventral hernia repair History of intestine removal History of arthroscopic knee surgery History of bilateral knee replacement History of cholecystectomy History of carpal tunnel release History of tonsillectomy and adenoidectomy Social History household members: none Smoking Status: Former smoker how long ago did patient quit smokin alcohol intake: never substance use type: does not use what type of physical activity do you participate in: other Vital Signs Vital Signs Vital Signs: 04/25/24 13:22 Temperature 96.6 F L Temperature Source Temporal Pulse Rate 80 Respiratory Rate 13 Blood Pressure 124/63 H Blood Pressure Mean 83 Pulse Ox 92 Oxygen Delivery Method Room Air Weight Weight: 214 lb 6.4 oz Body Mass Index (BMI) 36.8 Results Imaging Radiology Impression Femur X-Ray 04/25/24 14:00 IMPRESSION: Oblique fracture of the distal femoral metaphysis with overriding of the fracture fragments. Status post total knee replacement. Soft tissue swelling. Electronically Signed: John Arredondo MD at 14:37 EDT , Pelvis X-Ray 04/25/24 14:00 IMPRESSION: No acute abnormality is seen. Electronically Signed: John Arredondo MD at 14:28 EDT , Assessment & Plan Assessment/Plan PLAN: Plan Clinical Impression(s) from Imaging Studies Femur X-Ray 04/25/24 14:00 IMPRESSION: Oblique fracture of the distal femoral metaphysis with overriding of the fracture fragments. Status post total knee replacement. Soft tissue swelling. Electronically Signed: John Arredondo MD at 14:37 EDT , Pelvis X-Ray 04/25/24 14:00
--- NOTE | 2024-04-25 15:12 | RAD_ITS ---
INDICATION: preoperative EXAMINATION/TECHNIQUE: X-RAY - XR Chest 1 View COMPARISON: FINDINGS: LINES/DEVICES: None. LUNGS: There is a right apical opacity. No consolidation, edema or effusion. No pneumothorax. MEDIASTINUM AND CARDIOVASCULAR STRUCTURES: Cardiac silhouette not enlarged. Central airways and mediastinal contour are unremarkable. BONES AND SOFT TISSUES: Degenerative vertebral changes. RAD/Chest 1 View (Portable) IMPRESSION: There is a right apical opacity. Electronically Signed: Anjum Rice DO at 16:04 EDT ,
--- NOTE | 2024-04-25 15:17 | ED.RN ---
Per Dr. Carbajal the knee immobilizer, traction, and CT are too be completed once the patient is transferred to the floor.
[2024-04-25 15:44] LABS: Anion Gap 13 (5-15); BUN 25 mg/dL (7-18); BUN/Creat Ratio 21.7 RATIO (10-20); Calcium,Total 8.3 mg/dL (8.5-10.1); Chloride 108 mmol/L (98-107); Creatinine, Serum 1.15 mg/dL (0.55-1.02); EST Glomerular Filtration Rate 51 mL/min (>60); Est Glom Filt Rate - Afr Amer 61 mL/min (>60); Estimated Creatinine Clearance 56.69 ml/min; Glucose 79 mg/dL (74-106); Potassium 3.8 mmol/L (3.5-5.1); Sodium Level 137 mmol/L (136-145)
[2024-04-25 15:51] LABS: International Normalized Ratio 1.5
[2024-04-25 15:57] LABS: Absolute Neutrophil Count 6.1 X10^3/uL (2.0-7.7); Basophil# 0.05 X10^3/uL; Basophil% 0.6 % (0-1); Eosinophils% 2.5 % (0-5); Hematocrit 28.5 % (37-47); Hemoglobin 8.8 g/dL (12.0-15.0); Lymphocyte % 13.8 % (19-41); Mean Corp Hgb Conc 30.9 g/dL (32-36); Mean Corpuscular Hgb 29.4 pg (27.0-32.0); Mean Corpuscular Volume 95.3 fL (81-99); Mean Platelet Vol. 10.5 fl (6.2-12.0); Monocyte# 0.47 X10^3/uL; Monocyte% 5.9 % (0-10); NRBC Flagged by Analyzer 0 % (0-5); Neutrophil # 6.12 X10^3/uL (2.7-7.7); Neutrophil % 76.8 % (47-70); Platelet Count 177 K/mm3 (150-450); RBC Distribution Width CV 14.1 % (11.6-14.6); Red Blood Count 2.99 M/mm3 (4.2-5.4)
--- NOTE | 2024-04-25 16:07 | EKG12_ITS ---
Test Reason : PRE-OP Blood Pressure : / mmHG Vent. Rate : 077 BPM Atrial Rate : 077 BPM P-R Int : 176 ms QRS Dur : 098 ms QT Int : 402 ms P-R-T Axes : 048 065 035 degrees QTc Int : 454 ms Normal sinus rhythm Normal ECG Confirmed by Paul Plunkett ([id number]), telegraph editor ARIN HORTON ([id number]) on 04/29/2024 8:14:28 AM Referred By: Confirmed By:Paul Plunkett
--- NOTE | 2024-04-25 16:44 | PCM.HOSP.N ---
Hospitalist Note After looking at the CT scan, orthopedic surgeon decided that patient needs to be transferred to tertiary care as it looks complex fracture. By this time patient went to the floor but she was wheeled back to the ED. ED physician knows the plan and will take care of transfer to
--- NOTE | 2024-04-25 18:05 | ED.RN ---
CALLED TO CHECK STATUS OF TRANSFER; WAITING ON HOSPITALIST TO CALL BACK
[2024-04-25] MEDS: 0.9% Normal Saline (1000mL) 1,000 ML 999 ML IV (23:37)
[2024-04-25 23:47] LABS: Absolute Neutrophil Count 5.4 X10^3/uL (2.0-7.7); Basophil# 0.03 X10^3/uL; Basophil% 0.4 % (0-1); Eosinophil# 0.17 X10^3/uL; Eosinophils% 2.1 % (0-5); Hematocrit 22.6 % (37-47); Hemoglobin 7.1 g/dL (12.0-15.0); Lymphocyte % 20.2 % (19-41); Mean Corp Hgb Conc 31.4 g/dL (32-36); Mean Corpuscular Hgb 30.1 pg (27.0-32.0); Mean Corpuscular Volume 95.8 fL (81-99); Mean Platelet Vol. 10.7 fl (6.2-12.0); Monocyte# 0.74 X10^3/uL; Monocyte% 9.3 % (0-10); NRBC Flagged by Analyzer 0 % (0-5); Neutrophil # 5.36 X10^3/uL (2.7-7.7); Neutrophil % 67.5 % (47-70); Platelet Count 235 K/mm3 (150-450); RBC Distribution Width CV 14.3 % (11.6-14.6); RBC Distribution Width SD 49.6 fl (35.1-43.9); Red Blood Count 2.36 M/mm3 (4.2-5.4); White Blood Count 7.9 K/mm3 (4.4-11.0)
[2024-04-26] MEDS: fentaNYL 100 MCG/2 ML Ampul 25 MCG IV
[2024-04-26] MEDS: Midazolam 2 MG/2 ML Syringe IV (00:01)
--- NOTE | 2024-04-26 00:17 | ED.RN ---
2340: per md only give 500cc of the normal saline bolus d/t heart failure and CKD. IV fluids paused at time in MAR
[2024-04-26 00:48] VITALS: BP 102/57; PULSE 88; RESP 18; O2SAT 95
[2024-04-26 01:06] VITALS: BP 89/56; PULSE 86; RESP 12; TEMP 36.9; O2SAT 100
[2024-04-26 01:21] VITALS: BP 95/54; PULSE 88; RESP 12; TEMP 36.9; O2SAT 100
[2024-04-26 02:21] VITALS: BP 102/55; PULSE 78; RESP 12; TEMP 37; O2SAT 98
== END 2024-04-25 16:49 | disposition short-term general hospital (02) ==
LOC: ED 14:24 → MS3 16:28
PROVIDERS: Emergency Medicine; Physician Assistant; Emergency Provider Student in an Organized Health Care Education/Training Program; PCP Student in an Organized Health Care Education/Training Program; Visit Provider Student in an Organized Health Care Education/Training Program
DX: M97.11XA Periprosthetic fracture around internal prosthetic right knee joint, initial encounter (principal); I69.351 Hemiplegia and hemiparesis following cerebral infarction affecting right dominant side; I13.0 Hypertensive heart and chronic kidney disease with heart failure and stage 1 through stage 4 chronic kidney disease, or unspecified chronic kidney disease; I50.22 Chronic systolic (congestive) heart failure; E11.22 Type 2 diabetes mellitus with diabetic chronic kidney disease; N18.30 Chronic kidney disease, stage 3 unspecified; Z79.01 Long term (current) use of anticoagulants; Z87.891 Personal history of nicotine dependence; D62 Acute posthemorrhagic anemia; W18.39XA Other fall on same level, initial encounter; Y92.89 Other specified places as the place of occurrence of the external cause; E78.5 Hyperlipidemia, unspecified; I25.10 Atherosclerotic heart disease of native coronary artery without angina pectoris; K21.9 Gastro-esophageal reflux disease without esophagitis; Z79.899 Other long term (current) drug therapy; F32.A Depression, unspecified; Z79.82 Long term (current) use of aspirin; E03.9 Hypothyroidism, unspecified; J45.909 Unspecified asthma, uncomplicated; Z96.653 Presence of artificial knee joint, bilateral; Z90.49 Acquired absence of other specified parts of digestive tract
CPT/HCPCS: 51702; 71045; 72170; 73552; 73700; 80048; 85025; 85610; 86850; 86900; 86901; 86920; 93005; 96361; 96374; 96375; 96376; 99285; J7030; J7040; P9016; A4216; J2405

== ENCOUNTER 2024-05-01 15:06 | Inpatient (IN) | payer MEDICARE, MEDICAID, SELFPAY ==
[2024-05-01 15:11] VITALS: BP 141/78; PULSE 84; RESP 18; TEMP 36; O2SAT 96; BMI 37.4
[2024-05-01] MEDS: oxyCODONE 5 MG Tablet PO (17:26)
[2024-05-01] MEDS: Carvedilol 25 MG Tablet PO (17:26)
[2024-05-01] MEDS: Dicyclomine 10 MG Capsule 20 MG PO (17:26)
[2024-05-01 18:18] VITALS: O2SAT 96
--- NOTE | 2024-05-01 20:08 | HP.PCM_ITS ---
HPI - General General Date of Admission: 05/01/24 Date of Service: 05/01/24 Chief Complaint: Here for rehabilitation. HPI Narrative BILL CHOI, is a 63 Female who presents with followin04/26/[address] [facility] with right periprosthetic distal femur fracture. Usually walks with walker/wheelchair. Right leg gave out, fell on right knee, immediate pain. Deformity, unable to ambulate. Initially presented to [facility] ED, transfused 2 units PRBC prior to transfer to [facility]. 04/27/2024 Dr. Torres performed right femur rIMN and polyethylene exchange. 04/28/2024 TTWB RLE. Lesli-operative Vancomycin per ID, history of MRSA. Restart Entresto. Eliquis 2.5mg po bid DVT prophylaxis. 04/28/2024 Hemoglobin 6.6, transfuse 2 units PRBC. Blood pressure 60 to 90 systolic. 04/29/2024 Eliquis held 2/2 low hemoglobin. H&H stable. PT/OT SNF. Pain controlled. 04/30/2024 Patient refused to have dumont removed despite education. 04/30/2024 Doing well, pain controlled. Vancomycin stopped per ID. PO and IV pain medications, Tizanidine changed to Robaxin. Aspirin daily for PVD. Resume Eliquis 2.5mg bid 05/01/2024. Resume Eliquis 5mg bid 05/02/2024. PT/OT for SNF. 05/01/2024 Admit to TCU with debility, here for rehabilitation, strengthening, prior to discharge home alone. [facility], [facility] Medical History (Updated 05/01/24 @ 20:[address] Wei Barry MD) Depression Hypothyroidism History of MRSA infection of lungs Delirium Debility Falls Metabolic encephalopathy Complicated urinary tract infection Acute hypotension Brain TIA Embolic stroke Normocytic anemia History of stroke Diabetes mellitus Hyperlipidemia Hypertension Stroke/cerebrovascular accident Cardiomyopathy Chronic systolic (congestive) heart failure Non-ischemic cardiomyopathy History of CVA (cerebrovascular accident) (2018) Flash pulmonary edema (01/16/21) Peripheral vascular disease History of depression Atherosclerosis of coronary artery without angina pectoris CKD (chronic kidney disease) stage 3, GFR 30-59 ml/min Asthma exacerbation Pulmonary edema Acute respiratory failure with hypoxia Trigeminal trophic syndrome Stomach ulcer Hypothyroidism Osteopenia Osteoarthritis Kidney disease Hyperlipidemia Essential hypertension Chronic headaches GI problem Gallstones History of emotional problems Type 2 diabetes mellitus Carpal tunnel syndrome Bone fracture Asthma Anemia Seasonal allergies Herpes simplex GERD (gastroesophageal reflux disease) Allergic rhinitis Irritable bowel syndrome Gait difficulty Right hemiparesis Debility Osteoporosis Normochromic normocytic anemia Secondary adrenal insufficiency ACTH deficiency Neuropathy Falls Hypotension Carotid artery stenosis Bilateral leg weakness History of ischemic colitis Chronic constipation with suspected IBS Obesity Hx of diverticulitis of colon History of Clostridium difficile infection Home Medications ?Medication ?Instructions ?Recorded ?Last Taken ?Type multivitamin 1 tab PO DAILY SUPPLEMENT 12/29/17 04/24/24 History pantoprazole 40 mg tablet,delayed 40 mg PO BID GERD 03/29/19 10/24/23 History release amitriptyline 25 mg tablet 25 mg PO QHS MOOD 08/10/19 04/24/24 History rosuvastatin 20 mg tablet (Crestor) 20 mg PO QHS CHOLESTEROL 08/25/19 04/24/24 History sitagliptin phosphate 50 mg tablet 50 mg PO DAILY DIABETES 09/04/19 04/25/24 History (Januvia) duloxetine 60 mg capsule,delayed 60 mg PO BID DEPRESSION 10/19/20 04/25/24 History release valacyclovir 500 mg tablet 500 mg PO DAILY COLD SORES 10/19/20 04/25/24 History (Valtrex) tizanidine 4 mg tablet (Zanaflex) 4 mg PO Q8H PRN MUSCLE SPASMS 01/26/21 04/24/24 History Lactobacillus rhamnosus GG 10 1 cap PO DAILY GUT HEALTH 05/18/21 04/25/24 History billion cell capsule (Culturelle) pregabalin 100 mg capsule 100 mg PO DAILY PAIN 05/18/21 04/25/24 History sacubitril 49 mg-valsartan 51 mg 1 tab PO BID HEART 02/11/22 04/25/24 History tablet (Entresto) alendronate 70 mg tablet 70 mg PO TU BONES 02/13/22 04/22/24 History aspirin 81 mg tablet,delayed 81 mg PO DAILY@0800 HEART HEALTH 02/15/22 04/25/24 History release dicyclomine 20 mg tablet 20 mg PO TIDCM IRRITABLE BOWELS 09/11/22 04/25/24 History guaifenesin 600 mg tablet, 1,200 mg PO BID COUGH 09/11/22 04/25/24 History extended release 12 hr (Mucinex) apixaban 5 mg tablet (Eliquis) 5 mg PO BID blood thinner 30 days 09/18/22 04/25/24 Rx #60 tabs benzonatate 100 mg capsule 100 - 200 mg PO Q8H PRN COUGH 05/28/23 Unknown History venlafaxine 75 mg tablet 75 mg PO DAILY DEPRESSION 05/28/23 04/25/24 History venlafaxine 75 mg tablet 150 mg PO QHS DEPRESSION 05/29/23 04/24/24 History carvedilol 25 mg tablet (Coreg) 25 mg PO BIDCM HEART 10/24/23 04/25/24 History hydrocodone 7.5 mg-acetaminophen 1 - 2 tab PO Q8H PRN PAIN 10/24/23 04/25/24 History 325 mg tablet fluticasone 500 mcg-salmeterol 50 1 ea inhalation BID Asthma 04/25/24 04/25/24 History mcg/dose blistr powdr for inhalation (Advair Diskus) levothyroxine 125 mcg tablet 125 mcg PO DAILY Hypothyroidism 04/25/24 04/25/24 History acetaminophen 975 mg PO Q8 Pain 05/01/24 Unknown History albuterol 90 mcg/actuation aerosol mcg inhalation Q4H PRN Wheezing, 05/01/24 Unknown History inhaler shortness of breath apixaban 2.5 mg tablet 2.5 mg PO BID Anticoagulant 05/01/24 Unknown History ascorbic acid (vitamin C) 500 mg 500 mg PO DAILY Supplement 05/01/24 Unknown History tablet calcium carbonate 600 mg-vitamin 1 tab PO DAILY Supplement 05/01/24 Unknown His tory D3 5 mcg (200 unit) tablet (Calcium 600 + D(3)) cetirizine 10 mg capsule (All Day 10 mg PO DAILY Allergies 05/01/24 Unknown History Allergy (cetirizine)) cholecalciferol (vitamin D3) 50 50 mcg PO DAILY Supplement 05/01/24 Unknown History mcg (2,000 unit) tablet (Vitamin D3) docusate sodium 100 mg capsule 100 mg PO BID Constipation 05/01/24 Unknown History magnesium oxide 400 mg PO DAILY Supplement 05/01/24 Unknown History methocarbamol 750 mg tablet 750 mg PO TID Muscle spasms 05/01/24 Unknown History miconazole nitrate 2 % topical 1 applic topical BID Redness 05/01/24 Unknown History powder (Antifungal (miconazole)) oxycodone 5 mg tablet 5 mg PO Q6H PRN pain 05/01/24 Unknown History polyethylene glycol 3350 17 gram 17 g PO DAILY Constipation 05/01/24 Unknown History oral powder packet sodium chloride 0.65 % nasal spray 2 spray intranasal BID PRN dry 05/01/24 Unknown History aerosol (Deep Sea Nasal) nasal passages zinc acetate 50 mg (zinc) capsule 50 mg PO DAILY Supplement 05/01/24 Unknown History (Galzin) Allergy/AdvReac Type Severity Reaction Status Date / Time adhesive Allergy skin Verified 10/24/23 09:09 irritation amlodipine (From Norvasc) Allergy tachycardia Verified 10/24/23 09:09 hydromorphone HCl (From Allergy Itching Verified 10/24/23 09:09 Dilaudid) sulfamethoxazole (From Allergy made my Verified 10/24/23 09:09 Bactrim) cold sore huge trimethoprim (From Bactrim) Allergy made my Verified 10/24/23 09:09 cold sore huge Family History Grandfather Alcoholism Grandmother Myocardial infarction Mother Arthritis Diverticulitis COPD (chronic obstructive pulmonary disease) Afib Thyroid disorder Father Arthritis Diabetes Myocardial infarction Heart disease Ischemic Hypertension Hyperlipidemia Brother Arthritis Aunt Breast cancer Sister Arthritis Thyroid disorder Skin cancer Uncle Diabetes Surgical History History of angioplasty of peripheral vessel (2010) History of left heart catheterization (2011) History of trigger finger Ankle fracture Strangulated ventral hernia History of back surgery Fracture of left femur History of ventral hernia repair History of intestine removal History of arthroscopic knee surgery History of bilateral knee replacement History of cholecystectomy History of carpal tunnel release History of tonsillectomy and adenoidectomy Social History household members: none Smoking Status: Former smoker how long ago did patient quit smokin alcohol intake: never substance use type: does not use what type of physical activity do you participate in: other ROS Constitutional Constitutional: Reports weakness; Denies chills, fever(s) or weight gain ENT HEENT: Denies headache(s), nasal congestion or nasal discharge Cardiovascular Cardiovascular: Denies chest pain or palpitations Respiratory/Chest Respiratory/Chest: Denies cough, excessive phlegm production or shortness of breath with exertion Gastrointestinal Gastrointestinal: Denies abdominal pain, nausea or vomiting Genitourinary Genitourinary: Denies dysuria Musculoskeletal Musculoskeletal: Reports other Details: Right thigh, leg pain. ; Denies joint pain or joint swelling Integumentary Integumentary: Denies rash or wounds Neurologic Neurologic: Denies focal weakness, numbness or tingling Psychiatric Psychiatric: Denies anxiety, auditory hallucinations, depression, homicidal ideation or suicidal ideation Vital Signs Vital Signs Vital Signs: 05/01/24 15:11 05/01/24 15:11 05/01/24 18:18 Temperature 96.8 F L Temperature Source Temporal Pulse Rate 84 Pulse Rhythm Regular Pulse Strength Normal (2+) Respiratory Rate 18 Respiratory Effort Normal Non-Labored Respiratory Depth Normal Respiratory Pattern Normal Blood Pressure 141/78 H Blood Pressure Mean 99 Pulse Ox 96 96 Oxygen Delivery Method Nasal Cannula Nasal Cannula Nasal Cannula Oxygen Flow Rate (L/min) 2 2 2 Weight Weight: 99.019 kg Body Mass Index (BMI) 37.4 Physical Exam Const alert General Appearance: cooperative HEENT normocephalic Eyes PERRL and EOMs intact bilaterally Neck supple, no JVD and no carotid bruits Resp normal respiratory effort, normal air movement and clear to auscultation bilaterally Cardio regular rate and regular rhythm GI normal to inspection, nondistended, normoactive bowel sounds, non-tender and non-distended Extremity normal capillary refill Extremity Narrative: Right medial thigh, right lower extremity foam dressing x 2. General Extremity: Negative for edema Skin no rashes or lesions noted General Skin Exam: no breakdown Psych affect normal Appearance: appropriate Assessment & Plan Assessment/Plan (1) Debility: (2) Periprosthetic fracture around internal prosthetic right knee joint: (3) Herpes simplex: (4) Osteoporosis: (5) Chronic headaches: (6) Stroke/cerebrovascular accident: (7) Hyperlipidemia: (8) Chronic HFrEF (heart failure with reduced ejection fraction): (9) Irritable bowel syndrome: (10) Depression: (11) COPD (chronic obstructive pulmonary disease): (12) Type 2 diabetes mellitus with hyperglycemia: (13) Hypothyroidism: (14) Hypomagnesemia: (15) Gastroesophageal reflux disease: (16) Diabetic polyneuropathy: (17) Muscle spasm: PLAN: Plan 63 year old female with below past medical history hospitalized for right periprosthetic distal femur fracture, underwent right femur rIMN and polyethylene exchange 04/27/[address] Torres, admitted to TCU with debility, here for rehabilitation, strengthening, prior to discharge home alone. * Debility - PT/OT. * Pain - Tylenol 1000mg q8, Oxycodone 5-10mg q6 prn. * Bowel - Miralax 17gm daily, senna/colace 2 tablets bid prn. * Adult immunization - Administer pneumonia vaccine, covid vaccine, flu vaccine as appropriate. * DVT prophylaxis - on Eliquis. * COPD - Fluticasone/Salmeterol 232-14 1 puff bid, Albuterol 1 puff q4h prn. * Osteoporosis - Alendronate 70mg po qweek. * Headache - Elavil 25mg qhs. * Stroke - Aspirin, Eliquis 2.5mg bid thru 05/02/2024, then 5mg bid. * Vitamin C deficiency - Vitamin C 500mg daily. * Hyperlipidemia - Atorvastatin 40mg qhs. * Cough - Mucinex 1200mg bid, Tessalon Perles 100mg q8 prn. * Chronic HFrEF - Coreg 25mg bidcm, Entresto 49/51mg bid. * Vitamin D deficiency - D3 50mcg daily. * IBS - Bentyl 20mg tidcm. * Diabetic polyneuropathy - Duloxetine 60mg bid, Lyrica 100mg daily, stable chronic retirement use, GDR not recommended. * GI prophylaxis - Lactobacillus 1 capsule daily. * Hypothyroidism - Levothyroxine 125cg daily. * Diabetes Mellitus II - Tradjenta 5mg daily. * Allergic rhinitis - Loratadine 10mg daily. * Hypomagnesemia - Magnesium chloride 128mg daily. * Muscle spasm - Robaxin 750mg tid. * Tinea Corporis - Miconazole topical bid. * Nutrition - MVI daily. * GERD - Pantoprazole 40mg bid. * Dry nares - Sodium chloride 2 sprays bid prn. 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 * Zinc deficiency - Zinc 50mg daily.
[2024-05-01] MEDS: APIXABAN 2.5 MG TABLET (WCH) PO (21:29)
[2024-05-01] MEDS: Fluticasone/Salmeterol 232-14 Inhaler 1 PUFF INHALATION (21:30)
[2024-05-01] MEDS: SACUBITRIL/VALSARTAN 49-51 MG TABLET 1 EACH PO (21:30)
[2024-05-01] MEDS: Venlafaxine HCl 75 MG Tablet 150 MG PO (21:30)
[2024-05-01] MEDS: Pantoprazole Sodium 40 MG Tablet PO (21:30)
[2024-05-01] MEDS: Methocarbamol 750 MG Tablet PO (21:31)
[2024-05-01] MEDS: DULoxetine Hcl 60 MG Capsule PO (21:31)
[2024-05-01] MEDS: Atorvastatin Calcium 40 MG Tablet PO (21:32)
[2024-05-01] MEDS: Amitriptyline 25 MG Tablet PO (21:33)
[2024-05-01] MEDS: guaiFENesin 1,200 MG Tablet 1200 MG PO (21:33)
[2024-05-01] MEDS: Acetaminophen 500 MG Tablet 1000 MG PO (21:39)
[2024-05-02] MEDS: oxyCODONE 5 MG Tablet PO ×4 (00:09→23:23)
[2024-05-02] MEDS: Levothyroxine 125 MCG Tablet PO (05:35)
[2024-05-02] MEDS: Methocarbamol 750 MG Tablet PO ×3 (05:36→23:22)
[2024-05-02] MEDS: Acetaminophen 500 MG Tablet 1000 MG PO ×3 (05:36→21:24)
[2024-05-02 06:00] LABS: Absolute Lymphocyte Count 0.95 X10^3/uL (0.83-4.51); Absolute Neutrophil Count 4.9 X10^3/uL (2.0-7.7); Basophil# 0.04 X10^3/uL; Basophil% 0.6 % (0-1); Eosinophil# 0.23 X10^3/uL; Eosinophils% 3.3 % (0-5); Hematocrit 34.1 % (37-47); Hemoglobin 11.2 g/dL (12.0-15.0); Lymphocyte # 0.95 X10^3/ul (0.83-4.51); Lymphocyte % 13.8 % (19-41); Mean Corp Hgb Conc 32.8 g/dL (32-36); Mean Corpuscular Hgb 28.1 pg (27.0-32.0); Mean Corpuscular Volume 85.5 fL (81-99); Mean Platelet Vol. 9.5 fl (6.2-12.0); Monocyte% 8.7 % (0-10); NRBC Flagged by Analyzer 0 % (0-5); Neutrophil # 4.94 X10^3/uL (2.7-7.7); Neutrophil % 71.9 % (47-70); Platelet Count 181 K/mm3 (150-450); RBC Distribution Width CV 17.5 % (11.6-14.6); RBC Distribution Width SD 55.3 fl (35.1-43.9); Red Blood Count 3.99 M/mm3 (4.2-5.4); White Blood Count 6.9 K/mm3 (4.4-11.0)
[2024-05-02 06:10] LABS: Bedside Glucose 119 mg/dL (74-106)
[2024-05-02 06:27] LABS: Anion Gap 8 (5-15); BUN 11 mg/dL (7-18); BUN/Creat Ratio 19.6 RATIO (10-20); Calcium,Total 9.2 mg/dL (8.5-10.1); Chloride 103 mmol/L (98-107); Creatinine, Serum 0.56 mg/dL (0.55-1.02); EST Glomerular Filtration Rate 116 mL/min (>60); Est Glom Filt Rate - Afr Amer 140 mL/min (>60); Estimated Creatinine Clearance 117.57 ml/min; Glucose 126 mg/dL (74-106); Potassium 3.6 mmol/L (3.5-5.1); Sodium Level 138 mmol/L (136-145)
[2024-05-02 07:51] VITALS: BP 140/68; PULSE 86
[2024-05-02 07:53] VITALS: O2SAT 97
[2024-05-02] MEDS: Dicyclomine 10 MG Capsule 20 MG PO ×3 (08:36→17:20)
[2024-05-02] MEDS: Carvedilol 25 MG Tablet PO ×2 (08:36→17:20)
[2024-05-02] MEDS: Aspirin E.C. 81 MG Tablet PO (08:37)
[2024-05-02] MEDS: Lactobacillis Acidophilus 1 CAP PO (08:37)
[2024-05-02] MEDS: APIXABAN 2.5 MG TABLET (WCH) PO ×2 (08:38→21:23)
[2024-05-02] MEDS: Loratadine 10 MG Tablet PO (08:38)
[2024-05-02] MEDS: DULoxetine Hcl 60 MG Capsule PO ×2 (08:38→21:24)
[2024-05-02] MEDS: Venlafaxine HCl 75 MG Tablet PO (08:38)
[2024-05-02] MEDS: Fluticasone/Salmeterol 232-14 Inhaler 1 PUFF INHALATION ×2 (08:39→21:23)
[2024-05-02] MEDS: Pregabalin 50 MG Capsule 100 MG PO (08:39)
[2024-05-02] MEDS: Magnesium Chloride 64 MG Delay Rel.Tablet 128 MG PO (08:39)
[2024-05-02] MEDS: SACUBITRIL/VALSARTAN 49-51 MG TABLET 1 EACH PO ×2 (08:39→21:23)
[2024-05-02] MEDS: Miconazole Nitrate Cream 1 APPLIC TOPICAL ×2 (08:39→21:22)
[2024-05-02] MEDS: guaiFENesin 1,200 MG Tablet 1200 MG PO ×2 (08:40→21:23)
[2024-05-02] MEDS: LINAGLIPTIN 5 MG TABLET PO (08:40)
[2024-05-02] MEDS: Multivitamins,Therapeutic Tablet 1 TABLET PO (08:40)
[2024-05-02] MEDS: Pantoprazole Sodium 40 MG Tablet PO ×2 (08:40→21:24)
[2024-05-02] MEDS: Zinc Sulfate 50 mg zinc (220 mg) ORAL capsule PO (08:41)
[2024-05-02] MEDS: Ascorbic Acid 500 MG Tablet PO (08:41)
[2024-05-02] MEDS: Cholecalciferol (VIT D3) 25 MCG TABLET (1,000 UNITS) 50 MCG PO (08:41)
[2024-05-02] MEDS: Tuberculin,Purif.prot.deriv. 50 TU/ML Vial 0.1 ML ID (08:48)
--- NOTE | 2024-05-02 10:05 | NURSING ---
Singe Machine Operator Note; Activity Asset: Cade Rose is independent in her Choice of daily activities, tv, reading, reading, crafts, crocheting and would go to [employer] market and sell items. Family and friends visits and she welcomes visits from liquified natural gas technician and therapy dog. Staff will remind her of weekly activities, encourage group and respect her right to say no.
[2024-05-02 11:36] VITALS: O2SAT 97
--- NOTE | 2024-05-02 11:54 | PCM.PN.DRR ---
TCU RX Drug Regimen Review Subjective/Objective Subjective/Objective: Subjective: DW a 63 year old female presented to [facility] ED after her right knee gave out in her kitchen. Resident was found to have a complex fracture and was transferred and admitted to [facility] with a right periprosthetic distal femur fracture. A right femur rIMN was performed and the resident was held inpatient until she was deemed stable. She is now being admitted to TCU for rehabilitation and strengthening prior to discharging back home. Objective: Allergies adhesive Allergy (Verified 10/24/23 09:09) skin irritation amlodipine (From Norvasc) Allergy (Verified 10/24/23 09:09) tachycardia hydromorphone HCl (From Dilaudid) Allergy (Verified 10/24/23 09:09) Itching sulfamethoxazole (From Bactrim) Allergy (Verified 10/24/23 09:09) made my cold sore huge trimethoprim (From Bactrim) Allergy (Verified 10/24/23 09:09) made my cold sore huge Current Medications Generic Name Dose Route Start Last Admin Trade Name Freq PRN Reason Stop Dose Admin Acetaminophen 1,000 mg 05/01/24 22:00 05/02/24 05:36 Acetaminophen 500 Mg Tablet PO 1,000 mg Q8 [facility] Administration Albuterol Sulfate 1 puff 05/01/24 16:36 Albuterol Ih (6.7 Gm) 1 Puff Inhaler INHALATION Q4H PRN PRN SOB &/OR WHEEZING Alendronate Sodium 70 mg 05/06/24 06:00 Alendronate Sodium 70 Mg Tablet PO TU [facility] Amitriptyline HCl 25 mg 05/01/24 22:00 05/01/24 21:33 Amitriptyline 25 Mg Tablet PO 25 mg QHS [facility] Administration Apixaban 2.5 mg 05/01/24 22:00 05/02/24 08:38 Apixaban 2.5 Mg Tablet ([facility]) PO 05/02/24 23:55 2.5 mg BID [facility] Administration Apixaban 5 mg 05/03/24 10:00 Apixaban 5 Mg Tablet PO BID [facility] Ascorbic Acid 500 mg 05/02/24 10:00 05/02/24 08:41 Ascorbic Acid 500 Mg Tablet PO 500 mg DAILY [facility] Administration Aspirin 81 mg 05/02/24 08:00 05/02/24 08:37 Aspirin E.C. 81 Mg Tablet PO 81 mg DAILY@0800 [facility] Administration Atorvastatin Calcium 40 mg 05/01/24 22:00 05/01/24 21:32 Atorvastatin Calcium 40 Mg Tablet PO 40 mg QHS [facility] Administration Benzonatate 100 mg 05/01/24 16:04 Benzonatate 100 Mg Capsule PO Q8H PRN COUGH Carvedilol 25 mg 05/01/24 17:00 05/02/24 08:36 [facility] Protocol Cholecalciferol 50 mcg 05/02/24 10:00 05/02/24 08:41 Cholecalciferol (Vit D3) 25 Mcg Tablet (1,000 Units) PO 50 mcg DAILY [facility] Administration Dicyclomine HCl 20 mg 05/01/24 17:45 05/02/24 08:36 Dicyclomine 10 Mg Capsule PO 20 mg TIDCM [facility] Administration Duloxetine HCl 60 mg 05/01/24 22:00 05/02/24 08:38 Duloxetine Hcl 60 Mg Capsule PO 60 mg BID [facility] Administration Guaifenesin 1,200 mg 05/01/24 22:00 05/02/24 08:40 Guaifenesin 1,200 Mg Tablet PO 1,200 mg BID [facility] Administration Levothyroxine Sodium 125 mcg 05/02/24 06:00 05/02/24 05:35 Levothyroxine 125 Mcg Tablet PO 125 mcg 0600 [facility] Administration Linagliptin 5 mg 05/02/24 10:00 05/02/24 08:40 Linagliptin 5 Mg Tablet PO 5 mg DAILY [facility] Administration Loratadine 10 mg 05/02/24 10:00 05/02/24 08:38 Loratadine 10 Mg Tablet PO 10 mg DAILY [facility] Administration Magnesium Chloride 128 mg 05/02/24 10:00 05/02/24 08:39 Magnesium Chloride 64 Mg Delay Rel.Tablet PO 128 mg DAILY [facility] Administration Methocarbamol 750 mg 05/01/24 22:00 05/02/24 05:36 Methocarbamol 750 Mg Tablet PO 750 mg TID [facility] Administration Miconazole Nitrate 1 applic 05/01/24 22:00 05/02/24 08:39 Miconazole Nitrate Cream TOPICAL 1 applic BID [facility] Administration Multivitamins 1 tablet 05/02/24 08:00 05/02/24 08:40 Multivitamins,Therapeutic Tablet PO 1 tablet DAILYCM [facility] Administration Oxycodone HCl 5 - 10 mg 05/01/24 17:55 05/02/24 08:41 Oxycodone 5 Mg Tablet PO 10 mg Q6H PRN Administration Pain Score 1-10 or Pre PT/OT Pantoprazole Sodium 40 mg 05/01/24 22:00 05/02/24 08:40 Pantoprazole Sodium 40 Mg Tablet PO 40 mg BID [facility] Administration Polyethylene Glycol 17 gm 05/02/24 10:00 05/02/24 08:45 Polyethylene Glycol 3350 17 Gm Packet PO Not Given DAILY [facility] Pregabalin 100 mg 05/02/24 10:00 05/02/24 08:39 Pregabalin 50 Mg Capsule PO 100 mg DAILY [facility] Administration Sacubitril/Valsartan 1 each 05/01/24 22:00 05/02/24 08:39 Sacubitril/Valsartan 49-51 Mg Tablet PO 1 each BID [facility] Administration Fluticasone/Salmeterol 1 puff 05/01/24 22:00 05/02/24 08:39 Fluticasone/Salmeterol 232-14 Inhaler INHALATION 1 puff BID [facility] Administration Senna/Docusate Sodium 2 tablet 05/01/24 17:55 Senna/Docusate Sodium 1 Tablet PO BID PRN Constipation Sodium Chloride 10 - 40 ml 05/01/24 15:57 0.9% Saline Lock 10 Ml Syringe IV UD PRN SALINE FLUSH Sodium Chloride 2 spray 05/01/24 16:04 Sodium Chloride 0.65% 1 Reubens Reubens.Btl NASAL BID PRN dry nasal passages Tuberculin PPD 0.1 ml 05/09/24 10:00 Tuberculin,Purif.Prot.Deriv. 50 Tu/Ml Vial ID 05/09/24 10:01 X1 ONE Venlafaxine HCl 75 mg 05/02/24 10:00 05/02/24 08:38 Venlafaxine Hcl 75 Mg Tablet PO 75 mg DAILY [facility] Administration Venlafaxine HCl 150 mg 05/01/24 22:00 05/01/24 21:30 Venlafaxine Hcl 75 Mg Tablet PO 150 mg QHS [facility] Administration Zinc Sulfate 50 mg 05/02/24 10:00 05/02/24 08:41 Zinc Sulfate 50 Mg Zinc (220 Mg) Oral Capsule PO 50 mg DAILY [facility] Administration Problem List Hypothyroidism (Acute) Type 2 diabetes mellitus with hyperglycemia (Acute) COPD (chronic obstructive pulmonary disease) (Chronic) Depression (Acute) Chronic HFrEF (heart failure with reduced ejection fraction) (Chronic) Stroke/cerebrovascular accident (Acute) Periprosthetic fracture around internal prosthetic right knee joint (Acute) Osteoporosis (Acute) Diabetic polyneuropathy (Acute) Hypomagnesemia (Acute) Muscle spasm (Acute) Herpes simplex (Acute) Irritable bowel syndrome (Acute) Chronic headaches (Chronic) Gastroesophageal reflux disease (Acute) Debility (Acute) Hyperlipidemia (Chronic) Vital Signs Temp Pulse Resp BP Pulse Ox O2 Del Method O2 Flow Rate 96.8 F L 86 18 140/68 H 97 Nasal Cannula 2 05/01/24 15:11 05/02/24 07:51 05/01/24 15:11 05/02/24 07:51 05/02/24 11:36 05/02/24 07:53 05/02/24 11:36 Oxygen Flow Rate (L/min) 2 Oxygen Delivery Method Nasal Cannula Weight: 99.019 kg Body Mass Index (BMI) 37.4 Sodium 138 mmol/L (136-145) 05/02/24 05:26 Potassium 3.6 mmol/L (3.5-5.1) 05/02/24 05:26 Chloride 103 mmol/L (98-107) 05/02/24 05:26 Carbon Dioxide 27.0 mmol/L (21.0-32.0) 05/02/24 05:26 Anion Gap 8 (5-15) 05/02/24 05:26 BUN 11 mg/dL (7-18) 05/02/24 05:26 Creatinine 0.56 mg/dL (0.55-1.02) 05/02/24 05:26 Est GFR (MDRD) Af Amer 140 mL/min (>60) 05/02/24 05:26 Est GFR (MDRD) Non-Af 116 mL/min (>60) 05/02/24 05:26 BUN/Creatinine Ratio 19.6 RATIO (10-20) 05/02/24 05:26 Glucose 126 mg/dL (74-106) H 05/02/24 05:26 Assessment/Plan: 1. Pain/muscle spasms- Tylenol 1000mg PO Q8, methocarbamol 750mg PO TID, oxycodone 5-10mg PO Q6 PRN. Please continue to monitor for s/s of pain, excessive sedation, constipation, nausea, and vomiting. - Resident has taken one dose of oxycodone @ 10mg. Pain seems controlled at this point. 2. Bowel/ IBS- Miralax 17gm PO daily, senna/docusate 2 tabs PO BID PRN, Bentyl 20mg PO TIDCM. Please continue to monitor for s/s of constipation/ diarrhea, dizinees, blurred vision, and dry mouth. - No documented bowel movement in the chart. Resident declined her dose of Miralax please consider making this PRN if this trend continues. 3. DVT prophylaxis/ stroke- Aspirin 81mg PO daily, Eliquis 5mg PO BID. Please monitor for s/s of worsening bleeding/ anemia (RBC 3.99 M/mm3, Hgb 11.2 g/dL, Hct 34.1% on 05/02). 4. Chronic HFrEF- carvedilol 25mg PO BIDCM, Entresto 49/51 mg PO BID. Please monitor for bradycardia (86 bpm on 05/02), hypotension (140/68 on 05/02), hyperglycemia (126 mg/dL on 05/02), fatigue, weakness, and hyperkalemia (3.6 on 05/02). 5. COPD- Fluticasone/salmeterol 232-14 1 puff BID, albuterol 1 puff Q4 PRN. Please monitor for s/s of candidiasis, headache, infection, and bronchospasm. 6. Osteoporosis- alendronate 70mg PO Qweek. Please monitor for hypocalcemia (9.2 mg/dL on 05/02), hypophosphatemia, and low vitamin D levels. Please consider getting a phosphate and vitamin D levels if clinically indicated, thank you. 7. Hyperlipidemia- atorvastatin 40mg PO QHS. Please monitor lipid panel, and for s/s of myalgia. Please consider getting a lipid panel as the resident has not had one done in 2 years. 8. Diabetes Mellitus II- Tradjenta 5mg PO daily. Please monitor for hypoglycemia (126 mg/dL on 05/02), A1c, and headache. Please consider drawing an A1c level. 9. Hypothyroidism- levothyroxine 125 mcg PO daily. Please monitor TSH (in range 10/2023), and for s/s of hypo/hyperthyroidism. 10. GERD- pantoprazole 40mg PO BID. Please continue to monitor for s/s of GERD. Please encourage resident to utilize non-pharmacologic therapies to help minimize GERD exacerbations, as well. 11. Vitamin deficiencies/hypomagnesemia- Vitamin C 500mg PO daily, Vitamin D3 50mcg PO daily, zinc 50mg PO daily, magnesium chloride 128mg PO daily. Please continue to monitor vitamin lab values. 12. Tinea Corporis-miconazole topically BID. Please continue to monitor for worsening infections, redness, and irritation. 13. Allergic Rhinitis/ dry nares- loratadine 10mg PO daily, sodium chloride 2 sprays BID PRN. Please continue to monitor for s/s of allergic rhinitis. 14. Cough- Mucinex 1200mg PO BID, Tessalon pearls 100mg PO Q8 PRN. 15. General wellness- lactobacillus 1 capsule PO daily, MVI PO daily. Assessment/Plan for indications treated with psychotropic medications: 1. Diabetic polyneuropathy- duloxetine 60mg PO BID, Lyrica 100mg PO daily. Please monitor for suicidal ideation, nausea, weight loss, ataxia, peripheral edema, and drowsiness. Please refer to the physician?s note on GDR. 2. Depression- venlafaxine 225mg PO daily. Please monitor for s/s of better/worsening depression, suicidal ideations, insomnia, weight loss, and constipation. Please refer to the provider?s note on GDR. 3. Headache- amitriptyline 25mg PO QHS. Please monitor for suicidal thoughts (black box), blurred vision, constipation, insomnia, dizziness, lethargy, and memory impairment. Medical chart and medication regimen reviewed. The following medication irregularities or issues were identified: 1. Please consider obtaining a lipid panel since pt is on statin therapy and has not had a level done in > 2years, thank you. 2. Patient with documented diabetes. Please consider obtaining an A1c if clinically indicated, thank you. Date Date of Note:: 05/02/24
[2024-05-02 15:18] VITALS: BP 136/72; PULSE 93; RESP 14; TEMP 35.3; O2SAT 98
[2024-05-02 20:40] VITALS: BP 148/82; PULSE 91; RESP 16; RESP 18; TEMP 35.8; O2SAT 97
[2024-05-02] MEDS: Venlafaxine HCl 75 MG Tablet 150 MG PO (21:23)
[2024-05-02] MEDS: Amitriptyline 25 MG Tablet PO (21:23)
[2024-05-02] MEDS: Atorvastatin Calcium 40 MG Tablet PO (21:24)
[2024-05-03] MEDS: Methocarbamol 750 MG Tablet PO ×2 (05:37→14:40)
[2024-05-03] MEDS: Levothyroxine 125 MCG Tablet PO (05:37)
[2024-05-03] MEDS: Acetaminophen 500 MG Tablet 1000 MG PO ×3 (05:37→23:11)
[2024-05-03] MEDS: oxyCODONE 5 MG Tablet PO ×3 (06:34→18:52)
[2024-05-03 06:45] LABS: Bedside Glucose 125 mg/dL (74-106)
[2024-05-03 07:12] VITALS: O2SAT 96
[2024-05-03] MEDS: Polyethylene Glycol 3350 17 GM PACKET PO (09:28)
[2024-05-03] MEDS: Pregabalin 50 MG Capsule 100 MG PO (09:28)
[2024-05-03] MEDS: guaiFENesin 1,200 MG Tablet 1200 MG PO ×2 (09:29→23:10)
[2024-05-03] MEDS: Pantoprazole Sodium 40 MG Tablet PO ×2 (09:29→23:11)
[2024-05-03] MEDS: Magnesium Chloride 64 MG Delay Rel.Tablet 128 MG PO (09:30)
[2024-05-03] MEDS: SACUBITRIL/VALSARTAN 49-51 MG TABLET 1 EACH PO ×2 (09:31→23:10)
[2024-05-03] MEDS: Venlafaxine HCl 75 MG Tablet PO (09:31)
[2024-05-03] MEDS: APIXABAN 5 MG TABLET PO ×2 (09:31→23:10)
[2024-05-03] MEDS: Carvedilol 25 MG Tablet PO ×2 (09:32→17:15)
[2024-05-03] MEDS: Cholecalciferol (VIT D3) 25 MCG TABLET (1,000 UNITS) 50 MCG PO (09:32)
[2024-05-03] MEDS: Lactobacillis Acidophilus 1 CAP PO (09:33)
[2024-05-03] MEDS: Zinc Sulfate 50 mg zinc (220 mg) ORAL capsule PO (09:33)
[2024-05-03] MEDS: DULoxetine Hcl 60 MG Capsule PO ×2 (09:34→23:09)
[2024-05-03] MEDS: Loratadine 10 MG Tablet PO (09:34)
[2024-05-03] MEDS: LINAGLIPTIN 5 MG TABLET PO (09:35)
[2024-05-03] MEDS: Ascorbic Acid 500 MG Tablet PO (09:35)
[2024-05-03] MEDS: Dicyclomine 10 MG Capsule 20 MG PO ×3 (09:36→17:15)
[2024-05-03] MEDS: Multivitamins,Therapeutic Tablet 1 TABLET PO (09:36)
[2024-05-03] MEDS: Aspirin E.C. 81 MG Tablet PO (09:38)
[2024-05-03] MEDS: Fluticasone/Salmeterol 232-14 Inhaler 1 PUFF INHALATION ×2 (09:40→23:11)
[2024-05-03] MEDS: Miconazole Nitrate Cream 1 APPLIC TOPICAL ×2 (09:41→23:11)
[2024-05-03 11:13] VITALS: PULSE 94; RESP 16; O2SAT 94
[2024-05-03 15:28] VITALS: BP 145/82; PULSE 85; RESP 16; TEMP 36.3; O2SAT 97
[2024-05-03] MEDS: Atorvastatin Calcium 40 MG Tablet PO (23:10)
[2024-05-03] MEDS: Venlafaxine HCl 75 MG Tablet 150 MG PO (23:10)
[2024-05-03] MEDS: Amitriptyline 25 MG Tablet PO (23:10)
[2024-05-04] MEDS: Methocarbamol 750 MG Tablet PO ×4 (00:51→20:39)
[2024-05-04] MEDS: oxyCODONE 5 MG Tablet PO ×4 (00:52→20:55)
[2024-05-04 06:17] LABS: Bedside Glucose 137 mg/dL (74-106)
[2024-05-04] MEDS: Acetaminophen 500 MG Tablet 1000 MG PO ×3 (06:34→20:40)
[2024-05-04] MEDS: Levothyroxine 125 MCG Tablet PO (06:34)
[2024-05-04 06:45] VITALS: O2SAT 94
[2024-05-04] MEDS: Multivitamins,Therapeutic Tablet 1 TABLET PO (08:15)
[2024-05-04] MEDS: Carvedilol 25 MG Tablet PO ×2 (08:16→16:59)
[2024-05-04] MEDS: Dicyclomine 10 MG Capsule 20 MG PO ×3 (08:16→16:59)
[2024-05-04] MEDS: Aspirin E.C. 81 MG Tablet PO (08:16)
[2024-05-04] MEDS: APIXABAN 5 MG TABLET PO ×2 (10:31→20:39)
[2024-05-04] MEDS: Loratadine 10 MG Tablet PO (10:31)
[2024-05-04] MEDS: Pantoprazole Sodium 40 MG Tablet PO ×2 (10:32→20:40)
[2024-05-04] MEDS: Venlafaxine HCl 75 MG Tablet PO (10:32)
[2024-05-04] MEDS: Magnesium Chloride 64 MG Delay Rel.Tablet 128 MG PO (10:32)
[2024-05-04] MEDS: guaiFENesin 1,200 MG Tablet 1200 MG PO ×2 (10:32→20:40)
[2024-05-04] MEDS: SACUBITRIL/VALSARTAN 49-51 MG TABLET 1 EACH PO ×2 (10:33→20:39)
[2024-05-04] MEDS: Ascorbic Acid 500 MG Tablet PO (10:33)
[2024-05-04] MEDS: Zinc Sulfate 50 mg zinc (220 mg) ORAL capsule PO (10:33)
[2024-05-04] MEDS: DULoxetine Hcl 60 MG Capsule PO ×2 (10:33→20:38)
[2024-05-04] MEDS: LINAGLIPTIN 5 MG TABLET PO (10:33)
[2024-05-04] MEDS: Lactobacillis Acidophilus 1 CAP PO (10:33)
[2024-05-04] MEDS: Polyethylene Glycol 3350 17 GM PACKET PO (10:34)
[2024-05-04] MEDS: Fluticasone/Salmeterol 232-14 Inhaler 1 PUFF INHALATION ×2 (10:34→20:41)
[2024-05-04] MEDS: Cholecalciferol (VIT D3) 25 MCG TABLET (1,000 UNITS) 50 MCG PO (10:34)
[2024-05-04] MEDS: Pregabalin 50 MG Capsule 100 MG PO (10:37)
[2024-05-04] MEDS: Miconazole Nitrate Cream 1 APPLIC TOPICAL ×2 (10:39→20:41)
[2024-05-04 12:35] VITALS: BP 151/76; PULSE 75; RESP 16; TEMP 36.2; O2SAT 96
--- NOTE | 2024-05-04 15:27 | NURSING ---
New order received to change Oxycodone 5-10mg q4h prn. Patient updated.
[2024-05-04] MEDS: Venlafaxine HCl 75 MG Tablet 150 MG PO (20:38)
[2024-05-04] MEDS: Amitriptyline 25 MG Tablet PO (20:39)
[2024-05-04] MEDS: Atorvastatin Calcium 40 MG Tablet PO (20:39)
[2024-05-04 20:54] VITALS: BP 153/75; PULSE 89
--- NOTE | 2024-05-04 22:55 | PCA ---
oxygen bottle and tubing changed
[2024-05-05] MEDS: oxyCODONE 5 MG Tablet PO ×4 (01:46→23:34)
[2024-05-05] MEDS: Methocarbamol 750 MG Tablet PO ×3 (05:51→21:34)
[2024-05-05] MEDS: Acetaminophen 500 MG Tablet 1000 MG PO ×3 (05:51→21:26)
[2024-05-05] MEDS: Levothyroxine 125 MCG Tablet PO (05:51)
[2024-05-05 06:51] LABS: Bedside Glucose 133 mg/dL (74-106)
[2024-05-05 07:59] VITALS: O2SAT 96
[2024-05-05] MEDS: Aspirin E.C. 81 MG Tablet PO (08:49)
[2024-05-05] MEDS: SACUBITRIL/VALSARTAN 49-51 MG TABLET 1 EACH PO ×2 (08:49→21:28)
[2024-05-05] MEDS: Magnesium Chloride 64 MG Delay Rel.Tablet 128 MG PO (08:49)
[2024-05-05] MEDS: Ascorbic Acid 500 MG Tablet PO (08:49)
[2024-05-05] MEDS: Venlafaxine HCl 75 MG Tablet PO (08:49)
[2024-05-05] MEDS: APIXABAN 5 MG TABLET PO ×2 (08:49→21:28)
[2024-05-05] MEDS: Zinc Sulfate 50 mg zinc (220 mg) ORAL capsule PO (08:49)
[2024-05-05] MEDS: guaiFENesin 1,200 MG Tablet 1200 MG PO ×2 (08:49→21:27)
[2024-05-05] MEDS: Multivitamins,Therapeutic Tablet 1 TABLET PO (08:49)
[2024-05-05] MEDS: Pantoprazole Sodium 40 MG Tablet PO ×2 (08:49→21:26)
[2024-05-05] MEDS: LINAGLIPTIN 5 MG TABLET PO (08:49)
[2024-05-05] MEDS: Loratadine 10 MG Tablet PO (08:49)
[2024-05-05] MEDS: Carvedilol 25 MG Tablet PO ×2 (08:49→16:14)
[2024-05-05] MEDS: Pregabalin 50 MG Capsule 100 MG PO (08:49)
[2024-05-05] MEDS: Lactobacillis Acidophilus 1 CAP PO (08:49)
[2024-05-05] MEDS: Dicyclomine 10 MG Capsule 20 MG PO ×3 (08:51→16:14)
[2024-05-05] MEDS: DULoxetine Hcl 60 MG Capsule PO ×2 (08:51→21:32)
[2024-05-05] MEDS: Cholecalciferol (VIT D3) 25 MCG TABLET (1,000 UNITS) 50 MCG PO (08:51)
[2024-05-05 08:58] VITALS: BP 166/91; PULSE 92
[2024-05-05] MEDS: Fluticasone/Salmeterol 232-14 Inhaler 1 PUFF INHALATION ×2 (10:00→21:26)
[2024-05-05] MEDS: Miconazole Nitrate Cream 1 APPLIC TOPICAL ×2 (10:04→21:35)
[2024-05-05 13:37] VITALS: BP 122/66; PULSE 88; RESP 16; TEMP 36.1; O2SAT 96
[2024-05-05 16:16] VITALS: BP 148/80; PULSE 77
[2024-05-05] MEDS: Atorvastatin Calcium 40 MG Tablet PO (21:27)
[2024-05-05 21:30] VITALS: BP 157/78; PULSE 83
[2024-05-05] MEDS: Amitriptyline 25 MG Tablet PO (21:34)
[2024-05-05] MEDS: Venlafaxine HCl 75 MG Tablet 150 MG PO (21:34)
[2024-05-06] MEDS: oxyCODONE 5 MG Tablet PO ×4 (04:10→19:19)
[2024-05-06] MEDS: Dicyclomine 10 MG Capsule 20 MG PO ×3 (06:19→16:47)
[2024-05-06] MEDS: Acetaminophen 500 MG Tablet 1000 MG PO ×3 (06:19→20:47)
[2024-05-06] MEDS: Methocarbamol 750 MG Tablet PO ×3 (06:19→20:44)
[2024-05-06] MEDS: Levothyroxine 125 MCG Tablet PO (06:19)
[2024-05-06] MEDS: Alendronate Sodium 70 MG Tablet PO (06:19)
[2024-05-06 06:38] LABS: Bedside Glucose 126 mg/dL (74-106)
[2024-05-06] MEDS: Carvedilol 25 MG Tablet PO ×2 (09:04→16:47)
[2024-05-06] MEDS: DULoxetine Hcl 60 MG Capsule PO ×2 (09:04→20:45)
[2024-05-06] MEDS: LINAGLIPTIN 5 MG TABLET PO (09:04)
[2024-05-06] MEDS: Lactobacillis Acidophilus 1 CAP PO (09:04)
[2024-05-06] MEDS: SACUBITRIL/VALSARTAN 49-51 MG TABLET 1 EACH PO ×2 (09:04→20:46)
[2024-05-06] MEDS: Multivitamins,Therapeutic Tablet 1 TABLET PO (09:04)
[2024-05-06] MEDS: guaiFENesin 1,200 MG Tablet 1200 MG PO ×2 (09:04→20:47)
[2024-05-06] MEDS: Magnesium Chloride 64 MG Delay Rel.Tablet 128 MG PO (09:04)
[2024-05-06] MEDS: Zinc Sulfate 50 mg zinc (220 mg) ORAL capsule PO (09:04)
[2024-05-06] MEDS: Ascorbic Acid 500 MG Tablet PO (09:04)
[2024-05-06] MEDS: Aspirin E.C. 81 MG Tablet PO (09:04)
[2024-05-06] MEDS: Cholecalciferol (VIT D3) 25 MCG TABLET (1,000 UNITS) 50 MCG PO (09:04)
[2024-05-06] MEDS: Pantoprazole Sodium 40 MG Tablet PO ×2 (09:04→20:48)
[2024-05-06] MEDS: Loratadine 10 MG Tablet PO (09:04)
[2024-05-06] MEDS: APIXABAN 5 MG TABLET PO ×2 (09:04→20:46)
[2024-05-06] MEDS: Fluticasone/Salmeterol 232-14 Inhaler 1 PUFF INHALATION ×2 (09:05→20:46)
[2024-05-06] MEDS: Venlafaxine HCl 75 MG Tablet PO (09:05)
[2024-05-06] MEDS: Pregabalin 50 MG Capsule 100 MG PO (09:07)
[2024-05-06] MEDS: Miconazole Nitrate Cream 1 APPLIC TOPICAL ×2 (09:11→20:48)
[2024-05-06 09:13] VITALS: BP 157/70; PULSE 97
[2024-05-06] MEDS: COVID VAC 23-24(12UP)(ANDU)/PF 50 MCG/0.5 ML SYR/VIAL IM (11:37)
[2024-05-06 15:16] VITALS: BP 105/54; PULSE 90; RESP 14; TEMP 36.1
[2024-05-06 15:50] VITALS: BMI 35.9
--- NOTE | 2024-05-06 15:56 | CASEMGMT ---
Social Work SW met with patient to complete initial assessment. Pt known to this worker from previous stay. Verified contacts. Patient confirmed code status as full code. Educated to [facility] insurance with NRD 05/05 and continued stay is not guaranteed with each review. Pt stated she would like to DC home 05/09 and expressed concern about her dog not getting cared for to her satisfaction. SW noted pt is a x2 SPT and being co-treated for therapy, thus, not at safe LOF for pt to return home at this time. Pt became very upset and emotional. SW provided verbal and emotional support at length and discussed safety concerns and goals for DC. Pt has f/u appt on 05/12 and does not want to DC on the same day. SW offered for pt to speak with therapy again and POC meeting is scheduled for the following day. IDT to discuss progress and DC goals collectively. Pt agreed and appreciative of conversation. SW will continue to follow. CECE spoke with CERTIFIED TECHNICIAN whom spoke with pt in session. Both agreed to DC 05/13 when friend could transport home. Pt has improved to a x1 assist and has own mechanics of mobility. SW agreed to DC. Barby Christopher, BOX TOE BUFFER HAND DEICER ELEMENT WINDER
[2024-05-06 16:52] VITALS: BP 115/61; PULSE 83
[2024-05-06] MEDS: Venlafaxine HCl 75 MG Tablet 150 MG PO (20:43)
[2024-05-06] MEDS: Amitriptyline 25 MG Tablet PO (20:45)
[2024-05-06] MEDS: Atorvastatin Calcium 40 MG Tablet PO (20:47)
[2024-05-06 20:51] VITALS: BP 132/67; PULSE 89
[2024-05-06 20:53] VITALS: PULSE 89; RESP 16
[2024-05-07] MEDS: oxyCODONE 5 MG Tablet PO ×4 (03:49→19:43)
[2024-05-07 05:45] VITALS: RESP 16
[2024-05-07] MEDS: Levothyroxine 125 MCG Tablet PO (05:45)
[2024-05-07] MEDS: Acetaminophen 500 MG Tablet 1000 MG PO ×3 (05:45→22:57)
[2024-05-07] MEDS: Methocarbamol 750 MG Tablet PO ×3 (05:45→23:03)
[2024-05-07] MEDS: Dicyclomine 10 MG Capsule 20 MG PO ×3 (05:45→16:55)
[2024-05-07 06:32] LABS: Bedside Glucose 115 mg/dL (74-106)
[2024-05-07] MEDS: Lactobacillis Acidophilus 1 CAP PO (09:29)
[2024-05-07] MEDS: Carvedilol 25 MG Tablet PO ×2 (09:29→16:55)
[2024-05-07] MEDS: Aspirin E.C. 81 MG Tablet PO (09:29)
[2024-05-07] MEDS: Zinc Sulfate 50 mg zinc (220 mg) ORAL capsule PO (09:29)
[2024-05-07] MEDS: Pantoprazole Sodium 40 MG Tablet PO ×2 (09:29→23:01)
[2024-05-07] MEDS: Pregabalin 50 MG Capsule 100 MG PO (09:29)
[2024-05-07] MEDS: LINAGLIPTIN 5 MG TABLET PO (09:29)
[2024-05-07] MEDS: SACUBITRIL/VALSARTAN 49-51 MG TABLET 1 EACH PO ×2 (09:29→23:01)
[2024-05-07] MEDS: Ascorbic Acid 500 MG Tablet PO (09:29)
[2024-05-07] MEDS: Fluticasone/Salmeterol 232-14 Inhaler 1 PUFF INHALATION ×2 (09:29→22:57)
[2024-05-07] MEDS: Multivitamins,Therapeutic Tablet 1 TABLET PO (09:29)
[2024-05-07] MEDS: Loratadine 10 MG Tablet PO (09:29)
[2024-05-07] MEDS: APIXABAN 5 MG TABLET PO ×2 (09:30→23:01)
[2024-05-07] MEDS: Magnesium Chloride 64 MG Delay Rel.Tablet 128 MG PO (09:30)
[2024-05-07] MEDS: guaiFENesin 1,200 MG Tablet 1200 MG PO ×2 (09:30→23:03)
[2024-05-07] MEDS: Cholecalciferol (VIT D3) 25 MCG TABLET (1,000 UNITS) 50 MCG PO (09:30)
[2024-05-07] MEDS: Miconazole Nitrate Cream 1 APPLIC TOPICAL (09:30)
[2024-05-07] MEDS: DULoxetine Hcl 60 MG Capsule PO ×2 (09:31→23:00)
[2024-05-07] MEDS: Polyethylene Glycol 3350 17 GM PACKET PO (09:31)
[2024-05-07] MEDS: Venlafaxine HCl 75 MG Tablet PO (09:31)
--- NOTE | 2024-05-07 11:15 | CASEMGMT ---
Addendum entered by Barby Christopher 05/07/24 13:51: Sent referral to [facility] via [facility] for PT/OT/SN. Addendum entered by Barby Christopher 05/07/24 13:09: SW left VM with ELIE Stack to notify of DC and HHC referral. Original Note: Social Work IDT met with patient for care plan meeting. Discussed patient's progress in PT/OT/SN. Educated to [facility] with NRD 05/05 and continued stay is not guaranteed with each review. Confirmed plan is to DC home alone 05/13, friend to transport at 1300. Nursing to review DC instructions prior to cook pickled meat. Pt agreed to skilled HHC, no preference on agency. SW offered list of providers with quality and resource data, but pt denied to view list. Pt uses [facility] through [employer] for nonskilled PRECONSTRUCTION MANAGER. SW to refer to [facility] for skilled HHC PT/OT/SN. No DME needs. Plan: DC home alone 05/13, [facility] PT/OT/SN CARRILLO JiangW
--- NOTE | 2024-05-07 11:22 | MDS.RN ---
Pain interview for MDS complete.
[2024-05-07 12:06] VITALS: BP 147/75; PULSE 90; RESP 14; TEMP 36.3; O2SAT 98
[2024-05-07 16:56] LABS: Bacteria 0 SEEN /hpf (None Seen); Mucous, Urine 0 SEEN /hpf (<or=2+); Red Blood Cells-Urine 0 SEEN /hpf (0-5); Squamous Epithelial Cells - UA 0 SEEN /hpf (5-10); White Blood Cells 0 SEEN /hpf (0-5)
[2024-05-07 16:58] VITALS: BP 128/71; PULSE 82
[2024-05-07 17:02] LABS: Color, Urine Yellow (Yellow); Glucose, Dipstick Normal (Normal); Ketone-Dipstick Negative (Negative); Leukocyte Esterase-Dipstick Negative /ul (Negative); Nitrite-Dipstick Negative (Negative); Occult Blood-Urine Negative /ul (Negative); Protein-Dipstick 15 mg/dl (Negative); Specific Gravity, Urine 1.015 (1.002-1.030); Urine Bilirubin Dipstick Negative (Negative); Urine Clarity Clear (Clear); Urine Urobilinogen 4 mg/dl (Normal); Urine pH 6.5 (5.0 - 8.0)
[2024-05-07 23:00] VITALS: BP 145/69; PULSE 93
[2024-05-07] MEDS: Venlafaxine HCl 75 MG Tablet 150 MG PO (23:02)
[2024-05-07] MEDS: Amitriptyline 25 MG Tablet PO (23:05)
[2024-05-07] MEDS: Atorvastatin Calcium 40 MG Tablet PO (23:05)
[2024-05-08] MEDS: oxyCODONE 5 MG Tablet PO ×5 (00:33→22:20)
[2024-05-08] MEDS: Acetaminophen 500 MG Tablet 1000 MG PO ×3 (06:04→22:24)
[2024-05-08] MEDS: Methocarbamol 750 MG Tablet PO ×2 (06:04→22:22)
[2024-05-08] MEDS: Levothyroxine 125 MCG Tablet PO (06:06)
[2024-05-08] MEDS: Dicyclomine 10 MG Capsule 20 MG PO ×3 (06:06→17:01)
[2024-05-08 06:14] LABS: Bedside Glucose 125 mg/dL (74-106)
[2024-05-08] MEDS: Ascorbic Acid 500 MG Tablet PO (08:18)
[2024-05-08] MEDS: Carvedilol 25 MG Tablet PO ×2 (08:18→18:00)
[2024-05-08] MEDS: APIXABAN 5 MG TABLET PO ×2 (08:18→22:21)
[2024-05-08] MEDS: DULoxetine Hcl 60 MG Capsule PO ×2 (08:19→22:22)
[2024-05-08] MEDS: LINAGLIPTIN 5 MG TABLET PO (08:19)
[2024-05-08] MEDS: Magnesium Chloride 64 MG Delay Rel.Tablet 128 MG PO (08:19)
[2024-05-08] MEDS: Cholecalciferol (VIT D3) 25 MCG TABLET (1,000 UNITS) 50 MCG PO (08:19)
[2024-05-08] MEDS: Aspirin E.C. 81 MG Tablet PO (08:20)
[2024-05-08] MEDS: Pantoprazole Sodium 40 MG Tablet PO ×2 (08:20→22:22)
[2024-05-08] MEDS: Zinc Sulfate 50 mg zinc (220 mg) ORAL capsule PO (08:20)
[2024-05-08] MEDS: SACUBITRIL/VALSARTAN 49-51 MG TABLET 1 EACH PO ×2 (08:20→22:22)
[2024-05-08] MEDS: guaiFENesin 1,200 MG Tablet 1200 MG PO ×2 (08:20→22:23)
[2024-05-08] MEDS: Fluticasone/Salmeterol 232-14 Inhaler 1 PUFF INHALATION ×2 (08:21→22:23)
[2024-05-08] MEDS: Pregabalin 50 MG Capsule 100 MG PO (08:32)
[2024-05-08] MEDS: Lactobacillis Acidophilus 1 CAP PO (11:02)
[2024-05-08] MEDS: Loratadine 10 MG Tablet PO (11:02)
[2024-05-08] MEDS: Multivitamins,Therapeutic Tablet 1 TABLET PO (11:03)
[2024-05-08] MEDS: Venlafaxine HCl 75 MG Tablet PO (11:03)
[2024-05-08 13:26] VITALS: BP 109/59; PULSE 86; RESP 16; TEMP 36.3; O2SAT 98
[2024-05-08 18:07] VITALS: BP 155/81; PULSE 85
[2024-05-08] MEDS: Amitriptyline 25 MG Tablet PO (22:22)
[2024-05-08] MEDS: Atorvastatin Calcium 40 MG Tablet PO (22:22)
[2024-05-08] MEDS: Venlafaxine HCl 75 MG Tablet 150 MG PO (22:22)
[2024-05-08] MEDS: Miconazole Nitrate Cream 1 APPLIC TOPICAL (22:23)
[2024-05-08 22:38] VITALS: BP 150/68; PULSE 89
[2024-05-08 22:43] VITALS: RESP 16
--- NOTE | 2024-05-09 00:28 | NURSING ---
Surgical Mepilex to Right knee incision sites removed per Dayshift RN. DSD applied over incision sites to protect area per patient's request by dayshift RN. Dressing dry and intact.
[2024-05-09] MEDS: oxyCODONE 5 MG Tablet PO ×4 (05:42→23:41)
[2024-05-09] MEDS: Levothyroxine 125 MCG Tablet PO (05:43)
[2024-05-09] MEDS: Acetaminophen 500 MG Tablet 1000 MG PO ×3 (05:43→21:55)
[2024-05-09] MEDS: Methocarbamol 750 MG Tablet PO ×3 (05:43→23:40)
[2024-05-09] MEDS: Dicyclomine 10 MG Capsule 20 MG PO ×3 (05:45→16:57)
[2024-05-09 06:05] LABS: Bedside Glucose 127 mg/dL (74-106)
[2024-05-09 06:08] VITALS: RESP 16
[2024-05-09 06:20] LABS: Absolute Lymphocyte Count 1.37 X10^3/uL (0.83-4.51); Absolute Neutrophil Count 3.7 X10^3/uL (2.0-7.7); Basophil# 0.07 X10^3/uL; Basophil% 1.1 % (0-1); Eosinophil# 0.13 X10^3/uL; Eosinophils% 2.1 % (0-5); Hematocrit 31.5 % (37-47); Hemoglobin 9.9 g/dL (12.0-15.0); Lymphocyte # 1.37 X10^3/ul (0.83-4.51); Lymphocyte % 22.5 % (19-41); Mean Corp Hgb Conc 31.4 g/dL (32-36); Mean Corpuscular Hgb 27.7 pg (27.0-32.0); Mean Platelet Vol. 9.6 fl (6.2-12.0); Monocyte# 0.73 X10^3/uL; NRBC Flagged by Analyzer 0 % (0-5); Neutrophil % 60.7 % (47-70); Platelet Count 259 K/mm3 (150-450); RBC Distribution Width CV 17.2 % (11.6-14.6); RBC Distribution Width SD 55.8 fl (35.1-43.9); Red Blood Count 3.58 M/mm3 (4.2-5.4); White Blood Count 6.1 K/mm3 (4.4-11.0)
[2024-05-09 06:49] LABS: Anion Gap 7 (5-15); BUN 21 mg/dL (7-18); BUN/Creat Ratio 28.2 RATIO (10-20); Calcium,Total 9.4 mg/dL (8.5-10.1); Chloride 103 mmol/L (98-107); Creatinine, Serum 0.75 mg/dL (0.55-1.02); EST Glomerular Filtration Rate 83 mL/min (>60); Est Glom Filt Rate - Afr Amer 101 mL/min (>60); Estimated Creatinine Clearance 85.85 ml/min; Glucose 116 mg/dL (74-106); Sodium Level 136 mmol/L (136-145)
[2024-05-09 08:30] VITALS: BP 132/69; PULSE 96; RESP 16; TEMP 35.8; O2SAT 97
[2024-05-09] MEDS: Fluticasone/Salmeterol 232-14 Inhaler 1 PUFF INHALATION ×2 (09:03→22:00)
[2024-05-09] MEDS: Carvedilol 25 MG Tablet PO ×2 (09:04→16:57)
[2024-05-09] MEDS: Aspirin E.C. 81 MG Tablet PO (09:04)
[2024-05-09] MEDS: LINAGLIPTIN 5 MG TABLET PO (09:04)
[2024-05-09] MEDS: Magnesium Chloride 64 MG Delay Rel.Tablet 128 MG PO (09:04)
[2024-05-09] MEDS: Zinc Sulfate 50 mg zinc (220 mg) ORAL capsule PO (09:04)
[2024-05-09] MEDS: Loratadine 10 MG Tablet PO (09:04)
[2024-05-09] MEDS: Lactobacillis Acidophilus 1 CAP PO (09:04)
[2024-05-09] MEDS: Pantoprazole Sodium 40 MG Tablet PO ×2 (09:04→21:58)
[2024-05-09] MEDS: Venlafaxine HCl 75 MG Tablet PO (09:04)
[2024-05-09] MEDS: Ascorbic Acid 500 MG Tablet PO (09:04)
[2024-05-09] MEDS: Cholecalciferol (VIT D3) 25 MCG TABLET (1,000 UNITS) 50 MCG PO (09:04)
[2024-05-09] MEDS: guaiFENesin 1,200 MG Tablet 1200 MG PO ×2 (09:05→21:54)
[2024-05-09] MEDS: Multivitamins,Therapeutic Tablet 1 TABLET PO (09:05)
[2024-05-09] MEDS: DULoxetine Hcl 60 MG Capsule PO ×2 (09:05→22:03)
[2024-05-09] MEDS: APIXABAN 5 MG TABLET PO ×2 (09:05→21:54)
[2024-05-09] MEDS: SACUBITRIL/VALSARTAN 49-51 MG TABLET 1 EACH PO ×2 (09:05→22:01)
[2024-05-09] MEDS: Polyethylene Glycol 3350 17 GM PACKET PO (09:06)
[2024-05-09] MEDS: Pregabalin 50 MG Capsule 100 MG PO (09:13)
[2024-05-09] MEDS: Tuberculin,Purif.prot.deriv. 50 TU/ML Vial 0.1 ML ID (09:14)
--- NOTE | 2024-05-09 15:57 | CASEMGMT ---
Social Work BIMS () and PHQ-2 () completed for MDS assessment. Barby Christopher MSW OFFICE COORDINATOR RECEPTIONIST
[2024-05-09 17:00] VITALS: BP 102/56; PULSE 83
[2024-05-09] MEDS: Menthol/Lanolin/Calamine/Znox 113 GM Tube 1 APPLIC TOPICAL (21:52)
[2024-05-09] MEDS: Atorvastatin Calcium 40 MG Tablet PO (22:00)
[2024-05-09] MEDS: Venlafaxine HCl 75 MG Tablet 150 MG PO (22:03)
[2024-05-09] MEDS: Amitriptyline 25 MG Tablet PO (22:05)
[2024-05-10 05:46] VITALS: BP 141/72; PULSE 89
[2024-05-10] MEDS: oxyCODONE 5 MG Tablet PO ×4 (05:47→22:26)
[2024-05-10] MEDS: Dicyclomine 10 MG Capsule 20 MG PO ×3 (05:48→16:51)
[2024-05-10] MEDS: Methocarbamol 750 MG Tablet PO ×3 (05:48→22:12)
[2024-05-10] MEDS: Levothyroxine 125 MCG Tablet PO (05:48)
[2024-05-10] MEDS: Acetaminophen 500 MG Tablet 1000 MG PO ×3 (05:49→22:06)
[2024-05-10 06:29] LABS: Bedside Glucose 113 mg/dL (74-106)
[2024-05-10 09:48] VITALS: BP 136/66; PULSE 97; RESP 17; TEMP 21; O2SAT 96
[2024-05-10] MEDS: Polyethylene Glycol 3350 17 GM PACKET PO (09:54)
[2024-05-10] MEDS: Ascorbic Acid 500 MG Tablet PO (09:55)
[2024-05-10] MEDS: DULoxetine Hcl 60 MG Capsule PO ×2 (09:55→22:06)
[2024-05-10] MEDS: Multivitamins,Therapeutic Tablet 1 TABLET PO (09:55)
[2024-05-10] MEDS: Lactobacillis Acidophilus 1 CAP PO (09:55)
[2024-05-10] MEDS: SACUBITRIL/VALSARTAN 49-51 MG TABLET 1 EACH PO ×2 (09:55→22:12)
[2024-05-10] MEDS: Cholecalciferol (VIT D3) 25 MCG TABLET (1,000 UNITS) 50 MCG PO (09:55)
[2024-05-10] MEDS: Pantoprazole Sodium 40 MG Tablet PO ×2 (09:55→22:11)
[2024-05-10] MEDS: Magnesium Chloride 64 MG Delay Rel.Tablet 128 MG PO (09:55)
[2024-05-10] MEDS: guaiFENesin 1,200 MG Tablet 1200 MG PO ×2 (09:55→22:10)
[2024-05-10] MEDS: Venlafaxine HCl 75 MG Tablet PO (09:55)
[2024-05-10] MEDS: LINAGLIPTIN 5 MG TABLET PO (09:55)
[2024-05-10] MEDS: Loratadine 10 MG Tablet PO (09:55)
[2024-05-10] MEDS: APIXABAN 5 MG TABLET PO ×2 (09:55→22:10)
[2024-05-10] MEDS: Carvedilol 25 MG Tablet PO ×2 (09:56→16:50)
[2024-05-10] MEDS: Fluticasone/Salmeterol 232-14 Inhaler 1 PUFF INHALATION ×2 (09:56→22:15)
[2024-05-10] MEDS: Aspirin E.C. 81 MG Tablet PO (09:56)
[2024-05-10] MEDS: Zinc Sulfate 50 mg zinc (220 mg) ORAL capsule PO (09:58)
[2024-05-10] MEDS: Pregabalin 50 MG Capsule 100 MG PO (10:01)
[2024-05-10] MEDS: Menthol/Lanolin/Calamine/Znox 113 GM Tube 1 APPLIC TOPICAL ×2 (10:01→22:03)
[2024-05-10 11:00] VITALS: PULSE 97; RESP 16; O2SAT 99
[2024-05-10 16:52] VITALS: BP 98/55; PULSE 68
[2024-05-10] MEDS: Venlafaxine HCl 75 MG Tablet 150 MG PO (22:07)
[2024-05-10] MEDS: Atorvastatin Calcium 40 MG Tablet PO (22:08)
[2024-05-10] MEDS: Amitriptyline 25 MG Tablet PO (22:13)
[2024-05-11 06:12] LABS: Bedside Glucose 104 mg/dL (74-106)
[2024-05-11] MEDS: Levothyroxine 125 MCG Tablet PO (06:20)
[2024-05-11] MEDS: Dicyclomine 10 MG Capsule 20 MG PO ×3 (06:20→16:20)
[2024-05-11] MEDS: Acetaminophen 500 MG Tablet 1000 MG PO ×3 (06:20→21:17)
[2024-05-11] MEDS: Methocarbamol 750 MG Tablet PO ×3 (06:21→23:33)
[2024-05-11] MEDS: oxyCODONE 5 MG Tablet PO ×3 (06:25→23:32)
[2024-05-11 09:37] VITALS: BP 138/73; PULSE 83; RESP 16; TEMP 36.5; O2SAT 95
[2024-05-11] MEDS: Fluticasone/Salmeterol 232-14 Inhaler 1 PUFF INHALATION ×2 (09:38→21:16)
[2024-05-11] MEDS: Pregabalin 50 MG Capsule 100 MG PO (09:38)
[2024-05-11] MEDS: Ascorbic Acid 500 MG Tablet PO (09:42)
[2024-05-11] MEDS: Polyethylene Glycol 3350 17 GM PACKET PO (09:42)
[2024-05-11] MEDS: Zinc Sulfate 50 mg zinc (220 mg) ORAL capsule PO (09:42)
[2024-05-11] MEDS: guaiFENesin 1,200 MG Tablet 1200 MG PO ×2 (09:42→21:18)
[2024-05-11] MEDS: LINAGLIPTIN 5 MG TABLET PO (09:42)
[2024-05-11] MEDS: Cholecalciferol (VIT D3) 25 MCG TABLET (1,000 UNITS) 50 MCG PO (09:42)
[2024-05-11] MEDS: Multivitamins,Therapeutic Tablet 1 TABLET PO (09:43)
[2024-05-11] MEDS: DULoxetine Hcl 60 MG Capsule PO ×2 (09:43→21:17)
[2024-05-11] MEDS: Venlafaxine HCl 75 MG Tablet PO (09:43)
[2024-05-11] MEDS: Loratadine 10 MG Tablet PO (09:43)
[2024-05-11] MEDS: Carvedilol 25 MG Tablet PO ×2 (09:43→16:20)
[2024-05-11] MEDS: APIXABAN 5 MG TABLET PO ×2 (09:43→21:15)
[2024-05-11] MEDS: Magnesium Chloride 64 MG Delay Rel.Tablet 128 MG PO (09:43)
[2024-05-11] MEDS: Aspirin E.C. 81 MG Tablet PO (09:43)
[2024-05-11] MEDS: Pantoprazole Sodium 40 MG Tablet PO ×2 (09:43→21:18)
[2024-05-11] MEDS: SACUBITRIL/VALSARTAN 49-51 MG TABLET 1 EACH PO ×2 (09:43→21:15)
[2024-05-11] MEDS: Lactobacillis Acidophilus 1 CAP PO (09:43)
[2024-05-11] MEDS: Menthol/Lanolin/Calamine/Znox 113 GM Tube 1 APPLIC TOPICAL ×2 (09:44→21:15)
[2024-05-11 10:00] VITALS: PULSE 83; RESP 15; O2SAT 97
[2024-05-11 16:22] VITALS: BP 115/67; PULSE 90
--- NOTE | 2024-05-11 16:26 | NURSING ---
pt wheeled self to lobby, pt crying, 1:1 emotional support provided, pt refused to talk about what was bothering her, pt asked if she could go outside. Explained to pt that a ELECTRIC FAN ASSEMBLER would have to assist her since pt had not family with her & therapy not here for approval. pt agreeable and left floor in WC with assistance of ELECTRIC FAN ASSEMBLER.
[2024-05-11 21:14] VITALS: BP 101/57; PULSE 81
[2024-05-11] MEDS: Atorvastatin Calcium 40 MG Tablet PO (21:16)
[2024-05-11] MEDS: Venlafaxine HCl 75 MG Tablet 150 MG PO (21:17)
[2024-05-11] MEDS: Amitriptyline 25 MG Tablet PO (21:18)
[2024-05-12 06:09] VITALS: BP 134/75; PULSE 85
[2024-05-12] MEDS: Pregabalin 50 MG Capsule 100 MG PO (06:10)
[2024-05-12] MEDS: Dicyclomine 10 MG Capsule 20 MG PO ×3 (06:11→17:03)
[2024-05-12] MEDS: Levothyroxine 125 MCG Tablet PO (06:11)
[2024-05-12] MEDS: Acetaminophen 500 MG Tablet 1000 MG PO ×3 (06:11→22:52)
[2024-05-12] MEDS: Aspirin E.C. 81 MG Tablet PO (06:12)
[2024-05-12] MEDS: DULoxetine Hcl 60 MG Capsule PO ×2 (06:12→22:56)
[2024-05-12] MEDS: Pantoprazole Sodium 40 MG Tablet PO ×2 (06:12→22:55)
[2024-05-12] MEDS: Venlafaxine HCl 75 MG Tablet PO (06:13)
[2024-05-12] MEDS: Multivitamins,Therapeutic Tablet 1 TABLET PO (06:13)
[2024-05-12] MEDS: SACUBITRIL/VALSARTAN 49-51 MG TABLET 1 EACH PO ×2 (06:13→22:56)
[2024-05-12] MEDS: Loratadine 10 MG Tablet PO (06:13)
[2024-05-12] MEDS: Cholecalciferol (VIT D3) 25 MCG TABLET (1,000 UNITS) 50 MCG PO (06:14)
[2024-05-12] MEDS: Lactobacillis Acidophilus 1 CAP PO (06:14)
[2024-05-12] MEDS: Magnesium Chloride 64 MG Delay Rel.Tablet 128 MG PO (06:14)
[2024-05-12] MEDS: LINAGLIPTIN 5 MG TABLET PO (06:14)
[2024-05-12] MEDS: Ascorbic Acid 500 MG Tablet PO (06:15)
[2024-05-12] MEDS: Zinc Sulfate 50 mg zinc (220 mg) ORAL capsule PO (06:15)
[2024-05-12] MEDS: Carvedilol 25 MG Tablet PO ×2 (06:15→17:03)
[2024-05-12] MEDS: Methocarbamol 750 MG Tablet PO ×3 (06:16→22:55)
[2024-05-12] MEDS: Menthol/Lanolin/Calamine/Znox 113 GM Tube 1 APPLIC TOPICAL (06:16)
[2024-05-12] MEDS: guaiFENesin 1,200 MG Tablet 1200 MG PO ×2 (06:17→22:53)
[2024-05-12] MEDS: APIXABAN 5 MG TABLET PO ×2 (06:18→22:52)
[2024-05-12] MEDS: Fluticasone/Salmeterol 232-14 Inhaler 1 PUFF INHALATION ×2 (06:18→22:47)
[2024-05-12 06:36] LABS: Bedside Glucose 115 mg/dL (74-106)
--- NOTE | 2024-05-12 07:43 | DS.PCM_ITS ---
Providers Date of Admission: 05/01/24 Primary Care Physician: Dr. Brandon Torres DO Reason For Visit: RIGHT PERIPROSTHETIC DISTAL FRACTURE Diagnosis Discharge Diagnosis (1) Debility: Status: Acute Code(s): R53.81 - Other malaise (2) Periprosthetic fracture around internal prosthetic right knee joint: Status: Inactive Code(s): M97.11XA - Periprosthetic fracture around internal prosthetic right knee joint, initial encounter (3) Herpes simplex: Status: Acute Code(s): B00.9 - Herpesviral infection, unspecified (4) Osteoporosis: Status: Acute Code(s): M81.0 - Age-related osteoporosis without current pathological fracture (5) Chronic headaches: Status: Chronic Code(s): R51.9 - Headache, unspecified; G89.29 - Other chronic pain (6) Stroke/cerebrovascular accident: Status: Acute Code(s): I63.9 - Cerebral infarction, unspecified (7) Hyperlipidemia: Status: Chronic Code(s): E78.5 - Hyperlipidemia, unspecified (8) Chronic HFrEF (heart failure with reduced ejection fraction): Status: Chronic Code(s): I50.22 - Chronic systolic (congestive) heart failure (9) Irritable bowel syndrome: Status: Acute Code(s): K58.9 - Irritable bowel syndrome without diarrhea (10) Depression: Status: Acute Code(s): F32.A - Depression, unspecified (11) COPD (chronic obstructive pulmonary disease): Status: Chronic Code(s): J44.9 - Chronic obstructive pulmonary disease, unspecified (12) Type 2 diabetes mellitus with hyperglycemia: Status: Acute Code(s): E11.65 - Type 2 diabetes mellitus with hyperglycemia (13) Hypothyroidism: Status: Acute Code(s): E03.9 - Hypothyroidism, unspecified (14) Hypomagnesemia: Status: Acute Code(s): E83.42 - Hypomagnesemia (15) Gastroesophageal reflux disease: Status: Acute Code(s): K21.9 - Gastro-esophageal reflux disease without esophagitis (16) Diabetic polyneuropathy: Status: Acute Code(s): E11.42 - Type 2 diabetes mellitus with diabetic polyneuropathy (17) Muscle spasm: Status: Acute Code(s): M62.838 - Other muscle spasm Plan 63 year old female with below past medical history hospitalized for right periprosthetic distal femur fracture, underwent right femur rIMN and polyethylene exchange 04/27/[address] Broussard, admitted to TCU with debility, here for rehabilitation, strengthening, prior to discharge home alone. * Debility - PT/OT. * Pain - Tylenol 1000mg q8, Oxycodone 5-10mg q6 prn. * Bowel - Miralax 17gm daily, senna/colace 2 tablets bid prn. * Adult immunization - Administer pneumonia vaccine, covid vaccine, flu vaccine as appropriate. * DVT prophylaxis - on Eliquis. * COPD - Fluticasone/Salmeterol 232-14 1 puff bid, Albuterol 1 puff q4h prn. * Osteoporosis - Alendronate 70mg po qweek. * Headache - Elavil 25mg qhs. * Stroke - Aspirin, Eliquis 2.5mg bid thru 05/02/2024, then 5mg bid. * Vitamin C deficiency - Vitamin C 500mg daily. * Hyperlipidemia - Atorvastatin 40mg qhs. * Cough - Mucinex 1200mg bid, Tessalon Perles 100mg q8 prn. * Chronic HFrEF - Coreg 25mg bidcm, Entresto 49/51mg bid. * Vitamin D deficiency - D3 50mcg daily. * IBS - Bentyl 20mg tidcm. 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 * GI prophylaxis - Lactobacillus 1 capsule daily. * Hypothyroidism - Levothyroxine 125cg daily. * Diabetes Mellitus II - Tradjenta 5mg daily. * Allergic rhinitis - Loratadine 10mg daily. * Hypomagnesemia - Magnesium chloride 128mg daily. * Muscle spasm - Robaxin 750mg tid. * Tinea Corporis - Miconazole topical bid. * Nutrition - MVI daily. * GERD - Pantoprazole 40mg bid. * Dry nares - Sodium chloride 2 sprays bid prn. * Depression - Venlafaxine 225mg daily, stable chronic long-term use, GDR not recommended. * Zinc deficiency - Zinc 50mg daily. Medications at Discharge Home Medications multivitamin 1 tab PO DAILY SUPPLEMENT 12/29/17 pantoprazole 40 mg tablet,delayed release 40 mg PO BID GERD 05/25/19 amitriptyline 25 mg tablet 25 mg PO QHS MOOD 08/10/19 rosuvastatin 20 mg tablet (Crestor) 20 mg PO QHS CHOLESTEROL 08/25/19 sitagliptin phosphate 50 mg tablet (Januvia) 50 mg PO DAILY DIABETES 09/04/19 duloxetine 60 mg capsule,delayed release 60 mg PO BID DEPRESSION 10/19/20 valacyclovir 500 mg tablet (Valtrex) 500 mg PO DAILY COLD SORES 10/19/20 tizanidine 4 mg tablet (Zanaflex) 4 mg PO Q8H PRN MUSCLE SPASMS 01/26/21 Lactobacillus rhamnosus GG 10 billion cell capsule (Culturelle) 1 cap PO DAILY GUT HEALTH 05/18/21 pregabalin 100 mg capsule 100 mg PO DAILY PAIN 05/18/21 sacubitril 49 mg-valsartan 51 mg tablet (Entresto) 1 tab PO BID HEART 02/11/22 alendronate 70 mg tablet 70 mg PO TU BONES 02/13/22 aspirin 81 mg tablet,delayed release 81 mg PO DAILY@0800 HEART HEALTH 02/15/22 dicyclomine 20 mg tablet 20 mg PO TIDCM IRRITABLE BOWELS 09/11/22 guaifenesin 600 mg tablet, extended release 12 hr (Mucinex) 1,200 mg PO BID COUGH 09/11/22 apixaban 5 mg tablet (Eliquis) 5 mg PO BID blood thinner 30 days #60 tabs 09/18/22 benzonatate 100 mg capsule 100 - 200 mg PO Q8H PRN COUGH 05/28/23 venlafaxine 75 mg tablet 75 mg PO DAILY DEPRESSION 05/28/23 venlafaxine 75 mg tablet 150 mg PO QHS DEPRESSION 05/29/23 carvedilol 25 mg tablet (Coreg) 25 mg PO BIDCM HEART 10/24/23 hydrocodone 7.5 mg-acetaminophen 325 mg tablet 1 - 2 tab PO Q8H PRN PAIN 10/24/23 fluticasone 500 mcg-salmeterol 50 mcg/dose blistr powdr for inhalation (Advair Diskus) 1 ea inhalation BID Asthma 04/25/24 levothyroxine 125 mcg tablet 125 mcg PO DAILY Hypothyroidism 04/25/24 albuterol 90 mcg/actuation aerosol inhaler mcg inhalation Q4H PRN Wheezing, shortness of breath 05/01/24 ascorbic acid (vitamin C) 500 mg tablet 500 mg PO DAILY Supplement 05/01/24 calcium carbonate 600 mg-vitamin D3 5 mcg (200 unit) tablet (Calcium 600 + D(3)) 1 tab PO DAILY Supplement 05/01/24 cetirizine 10 mg capsule (All Day Allergy (cetirizine)) 10 mg PO DAILY Allergies 05/01/24 cholecalciferol (vitamin D3) 50 mcg (2,000 unit) tablet (Vitamin D3) 50 mcg PO DAILY Supplement 05/01/24 docusate sodium 100 mg capsule 100 mg PO BID Constipation 05/01/24 magnesium oxide 400 mg PO DAILY Supplement 05/01/24 miconazole nitrate 2 % topical powder (Antifungal (miconazole)) 1 applic topical BID Redness 05/01/24 zinc acetate 50 mg (zinc) capsule (Galzin) 50 mg PO DAILY Supplement 05/01/24 acetaminophen 500 mg tablet 1,000 mg (2 x 500 mg) PO Q8 #0 tabs 05/12/24 Hospital Course Operations - (See below.) Procedures None Summary of Care Provided Minutes Spent on Discharge: 35 Hospital Course: 63 year old female with below past medical history hospitalized for right periprosthetic distal femur fracture, underwent right femur rIMN and polyethylene exchange 04/27/[address] Broussard, admitted to TCU with debility, here for rehabilitation, strengthening, prior to discharge home alone. Discharge home alone 05/13/2024, [facility] PT/OT/SN. Physical Exam Const alert General Appearance: cooperative HEENT normocephalic Eyes PERRL and EOMs intact bilaterally Neck supple, no JVD and no carotid bruits Resp normal respiratory effort, normal air movement and clear to auscultation bilaterally Cardio regular rate and regular rhythm GI normal to inspection, nondistended, normoactive bowel sounds, non-tender and non-distended Extremity normal capillary refill General Extremity: Negative for edema Skin no rashes or lesions noted General Skin Exam: no breakdown Psych affect normal Appearance: appropriate Weight / BMI Weight Weight: 95.028 kg Body Mass Index (BMI) 35.9 ABG / Lab / Microbiology Data 05/09/24 05:22 05/09/24 05:22 Laboratory: Laboratory Results - last 24 hr 05/12/24 06:01: POC Glucose 115 H Microbiology: Microbiology 05/02/24 05:40 Nasal Secretion SARS-CoV-2 Antigen (Rapid) - Final D/C Instructions Discharge Diet: No restrictions Discharge Activity: Return to Normal Activity, May Shower and Use Walker Weight Bearing Status: Weight bearing as tolerated Call your doctor if you observe: Fever of 101 or Higher, Inability to urinate, Inability to have a bowel movement, Shortness of breath, Dizziness, Fainting spells, Swelling in the ankles, Chest pain and Uncontrolled pain Additional Instructions: Discharge home alone 05/13/2024, [facility] PT/OT/SN. Please Follow Up With: Dr. Jered Broussard When: As scheduled. Meaningful Use Info Meaningful Use Meaningful Use Diagnoses (Choose all that apply): None applicable Ischemic Stroke Statin Dosing Therapy Reference: STATIN DOSE THERAPY REFERENCE: * Patients > 75 years receive moderate or high dose statin therapy. * Patients 75 years or YOUNGER should receive HIGH intensity statin dose unless contraindicated. You will be required to document reason for non-treatment if statin daily dose does not meet guidelines. HIGH DOSE STATIN THERAPY DAILY Atorvastatin > than or = to 40 mg Rosuvastatin > than or = to 20 mg Amlodipine + Atorvastatin > than or = to 2.5/40 mg Ezetimibe + Simvastatin 10/80 mg Simvastatin 80mg Discharge Plan Admission Admit Date/Time: 05/01/24 15:06 Primary Reason for Your Visit: Debility. Attending Provider: Wei Barry Chi Primary Care Provider: Brandon Torres Instructions Additional Instructions / Restrictions: Per Dr. Broussard: Keep incision sites to right knee clean and dry. If there is any drainage, a new sterile dressing can be applied and CALL DR. BROUSSARD'S OFFICE. 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 DO NOT submerge incision sites under standing water for 6 weeks time after surgery. Do not rub the wound, but rather pat dry. Discharge home alone [facility]13[facility]2024, [facility] Discharge Orders/Prescriptions Prescriptions: New acetaminophen 500 mg Tablet 1,000 mg PO Q8 Qty: 0 0RF Continued Januvia 50 mg tablet 50 mg PO DAILY rosuvastatin [Crestor] 20 mg tablet 20 mg PO QHS tizanidine [Zanaflex] 4 mg tablet 4 mg PO Q8H PRN (Reason: MUSCLE SPASMS ) Culturelle 10 billion cell capsule 1 cap PO DAILY pregabalin 100 mg capsule 100 mg PO DAILY multivitamin 1 EACH tablet 1 tab PO DAILY pantoprazole 40 MG tablet 40 mg PO BID amitriptyline 25 MG tablet 25 mg PO QHS duloxetine 60 MG capsule 60 mg PO BID valacyclovir [Valtrex] 500 MG tablet 500 mg PO DAILY Entresto 49-51 mg Tablet 1 tab PO BID alendronate 70 MG tablet 70 mg PO TU aspirin 81 MG tablet,delayed release (DR/EC) 81 mg PO DAILY@0800 dicyclomine 20 mg Tablet 20 mg PO TIDCM guaifenesin [Mucinex] 600 mg Tablet Extended Release 12hr 1,200 mg PO BID Eliquis 5 mg Tablet 5 mg PO BID 30 Days Qty: 60 0RF Patient Comments: Start taking May 03, 2024 carvedilol [Coreg] 25 mg tablet 25 mg PO BIDCM hydrocodone-acetaminophen 7.5-325 mg tablet 1 - 2 tab PO Q8H PRN (Reason: PAIN ) venlafaxine 75 mg tablet 75 mg PO DAILY benzonatate 100 mg capsule 100 - 200 mg PO Q8H PRN (Reason: COUGH ) venlafaxine 75 mg tablet 150 mg PO QHS levothyroxine 125 mcg tablet 125 mcg PO DAILY fluticasone propion-salmeterol [Advair Diskus] 500-50 mcg/dose blister with device 1 ea inhalation BID docusate sodium 100 mg capsule 100 mg PO BID miconazole nitrate [Antifungal (miconazole)] 2 % powder 1 applic topical BID albuterol 90 mcg/actuation aerosol inhalation Q4H PRN ascorbic acid (vitamin C) 500 mg tablet 500 mg PO DAILY calcium carbonate-vitamin D3 [Calcium 600 + D(3)] 600 mg-5 mcg (200 unit) tablet 1 tab PO DAILY All Day Allergy (cetirizine) 10 mg capsule 10 mg PO DAILY magnesium oxide 400 mg magnesium tablet 400 mg PO DAILY cholecalciferol (vitamin D3) [Vitamin D3] 50 mcg (2,000 unit) tablet 50 mcg PO DAILY Galzin 50 mg (zinc) capsule 50 mg PO DAILY Discontinued apixaban 2.5 mg tablet 2.5 mg PO BID Patient Comments: Take x 3 doses. acetaminophen 975 mg PO Q8 methocarbamol 750 mg tablet 750 mg PO TID oxycodone 5 mg tablet 5 mg PO Q6H PRN (Reason: pain) polyethylene glycol 3350 17 gram powder in packet 17 g PO DAILY [place] Nasal 0.65 % aerosol,spray 2 spray intranasal BID PRN (Reason: dry nasal passages) Referrals / Follow Up: Brandon Torres DO [Primary Care Provider] - 05/16/24 1:00 pm (arrive at 12:45 if possible, appt with Jessie Castro ) Disposition Disposition (needs filled in before D/C Order can be placed): Home Health Service
[2024-05-12] MEDS: oxyCODONE 5 MG Tablet PO ×3 (07:54→22:53)
[2024-05-12 08:30] VITALS: BP 124/70; PULSE 80; RESP 17; TEMP 35.9; O2SAT 98
--- NOTE | 2024-05-12 08:39 | NURSING ---
pt left unit for appt via transport staff.
--- NOTE | 2024-05-12 08:49 | NURSING ---
Flight Attendant Note, MDS for 05/08/2024 Complete
--- NOTE | 2024-05-12 13:05 | NURSING ---
pt returned to unit from appt
--- NOTE | 2024-05-12 14:33 | NURSING ---
pt returned from appt. Per orders, pt is to continue TTWB until follow up and active ROM only with PT.
--- NOTE | 2024-05-12 16:03 | NURSING ---
Jose with Dr Torres's office requesting script for correct size of knee brace as a 24 was sent and pt needs an 18, also requesting if pt is to wear brace at all times. Per pt she is to not bend knee, waiting for clarification.
[2024-05-12 17:04] VITALS: BP 110/60; PULSE 82
[2024-05-12 22:45] VITALS: BP 119/68; PULSE 94
[2024-05-12] MEDS: Venlafaxine HCl 75 MG Tablet 150 MG PO (22:54)
[2024-05-12] MEDS: Amitriptyline 25 MG Tablet PO (22:56)
[2024-05-12] MEDS: Atorvastatin Calcium 40 MG Tablet PO (22:56)
--- NOTE | 2024-05-12 23:06 | NURSING ---
Assisted resident to [facility]. Immobilizer in place while lying in bed prior to transfer and refuses to wear immobilizer during transfer. Resident states, you don't have an order for it anyway. Will continue to monitor.
[2024-05-13] MEDS: Acetaminophen 500 MG Tablet 1000 MG PO (05:49)
[2024-05-13] MEDS: Levothyroxine 125 MCG Tablet PO (05:50)
[2024-05-13] MEDS: Methocarbamol 750 MG Tablet PO (05:50)
[2024-05-13] MEDS: Alendronate Sodium 70 MG Tablet PO (05:50)
[2024-05-13] MEDS: Dicyclomine 10 MG Capsule 20 MG PO ×2 (05:51→12:01)
[2024-05-13] MEDS: oxyCODONE 5 MG Tablet PO ×2 (05:51→12:09)
[2024-05-13 06:23] LABS: Bedside Glucose 104 mg/dL (74-106)
[2024-05-13] MEDS: DULoxetine Hcl 60 MG Capsule PO (08:43)
[2024-05-13] MEDS: Pregabalin 50 MG Capsule 100 MG PO (08:43)
[2024-05-13] MEDS: Cholecalciferol (VIT D3) 25 MCG TABLET (1,000 UNITS) 50 MCG PO (08:43)
[2024-05-13] MEDS: Lactobacillis Acidophilus 1 CAP PO (08:44)
[2024-05-13] MEDS: Multivitamins,Therapeutic Tablet 1 TABLET PO (08:44)
[2024-05-13] MEDS: Carvedilol 25 MG Tablet PO (08:44)
[2024-05-13] MEDS: Aspirin E.C. 81 MG Tablet PO (08:44)
[2024-05-13] MEDS: guaiFENesin 1,200 MG Tablet 1200 MG PO (08:44)
[2024-05-13] MEDS: Fluticasone/Salmeterol 232-14 Inhaler 1 PUFF INHALATION (08:44)
[2024-05-13] MEDS: Pantoprazole Sodium 40 MG Tablet PO (08:44)
[2024-05-13] MEDS: Zinc Sulfate 50 mg zinc (220 mg) ORAL capsule PO (08:44)
[2024-05-13] MEDS: Loratadine 10 MG Tablet PO (08:44)
[2024-05-13] MEDS: APIXABAN 5 MG TABLET PO (08:44)
[2024-05-13] MEDS: Venlafaxine HCl 75 MG Tablet PO (08:44)
[2024-05-13] MEDS: Magnesium Chloride 64 MG Delay Rel.Tablet 128 MG PO (08:44)
[2024-05-13] MEDS: SACUBITRIL/VALSARTAN 49-51 MG TABLET 1 EACH PO (08:44)
[2024-05-13] MEDS: Ascorbic Acid 500 MG Tablet PO (08:44)
[2024-05-13] MEDS: LINAGLIPTIN 5 MG TABLET PO (08:46)
[2024-05-13 08:53] VITALS: BP 104/58; PULSE 94
--- NOTE | 2024-05-13 11:35 | MDS.RN ---
Information for the MDS was obtained from review of the clinical record, interview of resident, staff, and direct observation of resident?s care.
[2024-05-13 13:22] VITALS: BP 108/56; PULSE 88; RESP 16; TEMP 36.1; O2SAT 97
== END 2024-05-13 13:21 | disposition home health service (06) | DRG 560 ==
PROVIDERS: Internal Medicine; Admitting Provider Family Medicine Geriatric Medicine; PCP Student in an Organized Health Care Education/Training Program; Referring Provider Family Medicine Geriatric Medicine; Visit Provider Family Medicine Geriatric Medicine
DX: M80.051D Age-related osteoporosis with current pathological fracture, right femur, subsequent encounter for fracture with routine healing (principal); I42.9 Cardiomyopathy, unspecified; I13.0 Hypertensive heart and chronic kidney disease with heart failure and stage 1 through stage 4 chronic kidney disease, or unspecified chronic kidney disease; G81.91 Hemiplegia, unspecified affecting right dominant side; E27.49 Other adrenocortical insufficiency; I50.22 Chronic systolic (congestive) heart failure; E11.22 Type 2 diabetes mellitus with diabetic chronic kidney disease; N18.30 Chronic kidney disease, stage 3 unspecified; J44.9 Chronic obstructive pulmonary disease, unspecified; E03.9 Hypothyroidism, unspecified; F32.A Depression, unspecified; E11.42 Type 2 diabetes mellitus with diabetic polyneuropathy; E11.51 Type 2 diabetes mellitus with diabetic peripheral angiopathy without gangrene; M62.838 Other muscle spasm; J30.9 Allergic rhinitis, unspecified; E78.5 Hyperlipidemia, unspecified; I25.10 Atherosclerotic heart disease of native coronary artery without angina pectoris; E53.8 Deficiency of other specified B group vitamins; K58.9 Irritable bowel syndrome, unspecified; K21.9 Gastro-esophageal reflux disease without esophagitis; W19.XXXD Unspecified fall, subsequent encounter; B35.4 Tinea corporis; B00.9 Herpesviral infection, unspecified; M97.11XD Periprosthetic fracture around internal prosthetic right knee joint, subsequent encounter; Z79.01 Long term (current) use of anticoagulants; Z79.84 Long term (current) use of oral hypoglycemic drugs; Z79.83 Long term (current) use of bisphosphonates; Z79.890 Hormone replacement therapy; Z79.51 Long term (current) use of inhaled steroids; Z87.891 Personal history of nicotine dependence; Z79.899 Other long term (current) drug therapy; Z23 Encounter for immunization
CPT/HCPCS: 36415; 80048; 81001; 82962; 85025; 87811; 90480; 97110; 97162; 97163; 97166; 97530; 97535; 97802; 91322

== ENCOUNTER 2024-07-19 13:38 | Emergency (ER) | payer MEDICARE, MEDICAID, SELFPAY ==
[2024-07-19 13:40] VITALS: BP 82/64; PULSE 74; RESP 18; TEMP 35.8; O2SAT 96
--- NOTE | 2024-07-19 13:50 | CT_ITS ---
STUDY: CT BRAIN WITHOUT CONTRAST REASON FOR EXAM: Female, 63 years old. fall RADIATION DOSAGE (If Supplied By Facility): CTDIvol = ( 44.99 ) mGy, DLP = ( 779.24 ) mGycm TECHNIQUE: Transaxial CT imaging of the brain was performed without administration of intravenous contrast material. Individualized dose optimization techniques were used for this CT. COMPARISON: May 28, 2023 FINDINGS: Normal soft tissue structures. Normal calvarium. There is mild cerebral atrophy with widening of the extra-axial spaces and ventricular dilatation. There are areas of decreased attenuation within the white matter tracts of the supratentorial brain, consistent with microvascular disease changes. Normal basal ganglia and thalami. Normal brainstem. Old infarction of the right cerebellar hemisphere is stable. There is no intracranial hemorrhage. There are no findings of an acute ischemic infarction. Encephalomalacia and gliosis of the left frontal and parietal lobes remain stable. Normal visualized paranasal sinuses. CT/Brain/Head without Contrast IMPRESSION: 1. No acute intracranial hemorrhage or mass effect. 2. Old left MCA territory infarctions. Electronically Signed: Toni Engel MD ([place]) at 14:31 EDT Reading Location ID and State: [facility] / [place] , Service support ,
--- NOTE | 2024-07-19 13:50 | CT_ITS ---
EXAM: CT CERVICAL SPINE WITHOUT INTRAVENOUS CONTRAST CLINICAL INDICATION: neck pain TECHNIQUE: Helically acquired images were obtained of the cervical spine without intravenous contrast. 2D reformatted images were reviewed. This CT exam was performed using one or more of the following dose reduction techniques: automated exposure control, adjustment of the mA and/or kV according to patient size, and/or use of iterative reconstruction technique. RADIATION DOSE: CTDIvol = 26.36 mGy, DLP = 551.35 mGy-cm COMPARISON: No relevant prior studies available. FINDINGS: VERTEBRAE: Straightening of the normal cervical lordosis. Anterior spondylosis at multiple levels with bridging components seen particularly at C3, C4, C5 and C6. Uncovertebral hypertrophy and facet arthropathy contribute to bilateral foraminal narrowing at C3-C4, C4-C5 and C5-C6. 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 Posterior disc osteophyte complexes at C5-C6 and C6-C7 causing mild degenerative canal narrowing. No critical canal stenosis. SOFT TISSUES: Unremarkable. No prevertebral soft tissue swelling. LYMPH NODES: Paratracheal lymph node on the last image measures 1.4 x 1.6 cm. LUNG APICES: There is dense consolidation with air bronchograms of the right upper lobe, partially visualized. CT/Spine Cervical without Contras IMPRESSION: 1. No cervical spine fracture or traumatic subluxation. 2. Right upper lobe volume loss/consolidation with air bronchograms. Possible mediastinal adenopathy. Recommend correlating with chest CT. Electronically Signed: Toni Engel MD ([place]) at 14:34 EDT Reading Location ID and State: [facility] / [place] , Service support ,
--- NOTE | 2024-07-19 14:02 | EDS_ITS ---
HPI <DAYTON Marcos - Last Filed: 07/19/24 15:09> History of Present Illness Chief Complaint: Lower Extremity Injury Narrative Narrative: Patient is a 63-year-old female with a history of hypothyroidism, diabetes, osteoporosis, history of pathological fractures, history of CVA on Eliquis who presents to the emergency department with right foot pain. Patient states that 2 nights ago, she woke up at 4:30 AM on the floor. She is unsure how she got there. She states that she injured her right foot. Patient denies any other dizziness, fever chills nausea or vomiting. She is currently nonweightbearing secondary to femur fracture on her right side that happened in April 2024. She does get around by scooter as well as wheelchair. [facility] <DAYTON Marcos - Last Filed: 07/19/24 15:09> [facility] Medical History (Updated 07/19/24 @ 15:09 by DAYTON Marcos) Depression Hypothyroidism History of MRSA infection of lungs Delirium Debility Falls Metabolic encephalopathy Complicated urinary tract infection Acute hypotension Brain TIA Embolic stroke Normocytic anemia History of stroke Diabetes mellitus Hyperlipidemia Hypertension Stroke/cerebrovascular accident Cardiomyopathy Chronic systolic (congestive) heart failure Non-ischemic cardiomyopathy History of CVA (cerebrovascular accident) (2018) Flash pulmonary edema (01/16/21) Peripheral vascular disease History of depression Atherosclerosis of coronary artery without angina pectoris CKD (chronic kidney disease) stage 3, GFR 30-59 ml/min Asthma exacerbation Pulmonary edema Acute respiratory failure with hypoxia Trigeminal trophic syndrome Stomach ulcer Hypothyroidism Osteopenia Osteoarthritis Kidney disease Hyperlipidemia Essential hypertension Chronic headaches GI problem Gallstones History of emotional problems Type 2 diabetes mellitus Carpal tunnel syndrome Bone fracture Asthma Anemia Seasonal allergies Herpes simplex GERD (gastroesophageal reflux disease) Allergic rhinitis Irritable bowel syndrome Gait difficulty Right hemiparesis Debility Osteoporosis Normochromic normocytic anemia Secondary adrenal insufficiency ACTH deficiency Neuropathy Falls Hypotension Carotid artery stenosis Bilateral leg weakness History of ischemic colitis Chronic constipation with suspected IBS Obesity Hx of diverticulitis of colon History of Clostridium difficile infection Home Medications ?Medication ?Instructions ?Recorded ?Last Taken ?Type multivitamin 1 tab PO DAILY SUPPLEMENT 12/29/17 04/24/24 History pantoprazole 40 mg tablet,delayed 40 mg PO BID GERD 03/29/19 10/24/23 History release amitriptyline 25 mg tablet 25 mg PO QHS MOOD 08/10/19 04/24/24 History rosuvastatin 20 mg tablet (Crestor) 20 mg PO QHS CHOLESTEROL 08/25/19 04/24/24 History sitagliptin phosphate 50 mg tablet 50 mg PO DAILY DIABETES 09/04/19 04/25/24 History (Januvia) duloxetine 60 mg capsule,delayed 60 mg PO BID DEPRESSION 10/19/20 04/25/24 History release valacyclovir 500 mg tablet 500 mg PO DAILY COLD SORES 10/19/20 04/25/24 History (Valtrex) tizanidine 4 mg tablet (Zanaflex) 4 mg PO Q8H PRN MUSCLE SPASMS 01/26/21 04/24/24 History Lactobacillus rhamnosus GG 10 1 cap PO DAILY GUT HEALTH 05/18/21 04/25/24 History billion cell capsule (Culturelle) pregabalin 100 mg capsule 100 mg PO DAILY PAIN 05/18/21 04/25/24 History sacubitril 49 mg-valsartan 51 mg 1 tab PO BID HEART 02/11/22 04/25/24 History tablet (Entresto) alendronate 70 mg tablet 70 mg PO TU BONES 02/13/22 04/22/24 History aspirin 81 mg tablet,delayed 81 mg PO DAILY@0800 HEART HEALTH 02/15/22 04/25/24 History release dicyclomine 20 mg tablet 20 mg PO TIDCM IRRITABLE BOWELS 09/11/22 04/25/24 History guaifenesin 600 mg tablet, 1,200 mg PO BID COUGH 09/11/22 04/25/24 History extended release 12 hr (Mucinex) apixaban 5 mg tablet (Eliquis) 5 mg PO BID blood thinner 30 days 09/18/22 04/25/24 Rx #60 tabs benzonatate 100 mg capsule 100 - 200 mg PO Q8H PRN COUGH 05/28/23 Unknown History venlafaxine 75 mg tablet 75 mg PO DAILY DEPRESSION 05/28/23 04/25/24 History venlafaxine 75 mg tablet 150 mg PO QHS DEPRESSION 05/29/23 04/24/24 History carvedilol 25 mg tablet (Coreg) 25 mg PO BIDCM HEART 10/24/23 04/25/24 History hydrocodone 7.5 mg-acetaminophen 1 - 2 tab PO Q8H PRN PAIN 10/24/23 04/25/24 History 325 mg tablet fluticasone 500 mcg-salmeterol 50 1 ea inhalation BID Asthma 04/25/24 04/25/24 History mcg/dose blistr powdr for inhalation (Advair Diskus) levothyroxine 125 mcg tablet 125 mcg PO DAILY Hypothyroidism 04/25/24 04/25/24 History albuterol 90 mcg/actuation aerosol mcg inhalation Q4H PRN Wheezing, 05/01/24 Unknown History inhaler shortness of breath ascorbic acid (vitamin C) 500 mg 500 mg PO DAILY Supplement 05/01/24 Unknown History tablet calcium carbonate 600 mg-vitamin 1 tab PO DAILY Supplement 05/01/24 Unknown History D3 5 mcg (200 unit) tablet (Calcium 600 + D(3)) cetirizine 10 mg capsule (All Day 10 mg PO DAILY Allergies 05/01/24 Unknown History Allergy (cetirizine)) cholecalciferol (vitamin D3) 50 50 mcg PO DAILY Supplement 05/01/24 Unknown History mcg (2,000 unit) tablet (Vitamin D3) docusate sodium 100 mg capsule 100 mg PO BID Constipation 05/01/24 Unknown History magnesium oxide 400 mg PO DAILY Supplement 05/01/24 Unknown History miconazole nitrate 2 % topical 1 applic topical BID Redness 05/01/24 Unknown History powder (Antifungal (miconazole)) zinc acetate 50 mg (zinc) capsule 50 mg PO DAILY Supplement 05/01/24 Unknown History (Galzin) acetaminophen 500 mg tablet 1,000 mg (2 x 500 mg) PO Q8 #0 tabs 05/12/24 Unknown Rx Allergy/AdvReac Type Severity Reaction Status Date / Time adhesive Allergy skin Verified 07/19/24 13:40 irritation amlodipine (From Norvasc) Allergy tachycardia Verified 07/19/24 13:40 hydromorphone HCl (From Allergy Itching Verified 07/19/24 13:40 Dilaudid) sulfamethoxazole (From Allergy made my Verified 07/19/24 13:40 Bactrim) cold sore huge trimethoprim (From Bactrim) Allergy made my Verified 07/19/24 13:40 cold sore huge Family History Grandfather Alcoholism Grandmother Myocardial infarction Mother Arthritis Diverticulitis COPD (chronic obstructive pulmonary disease) Afib Thyroid disorder Father Arthritis Diabetes Myocardial infarction Heart disease Ischemic Hypertension Hyperlipidemia Brother Arthritis Aunt Breast cancer Sister Arthritis Thyroid disorder Skin cancer Uncle Diabetes Surgical History History of angioplasty of peripheral vessel (2010) History of left heart catheterization (2011) History of trigger finger Ankle fracture Strangulated ventral hernia History of back surgery Fracture of left femur History of ventral hernia repair History of intestine removal History of arthroscopic knee surgery History of bilateral knee replacement History of cholecystectomy History of carpal tunnel release History of tonsillectomy and adenoidectomy Social History household members: none Smoking Status: Former smoker how long ago did patient quit smokin alcohol intake: never substance use type: does not use what type of physical activity do you participate in: other ROS <DAYTON Marcos - Last Filed: 07/19/24 15:09> ROS ED ROS Narrative Constitutional: Negative for fever, chills, weight loss, weakness Eyes: Negative for vision loss, vision change, double vision ENT: Negative for any sore throat, ear pain, congestion Cardiovascular: Negative for any chest pain, tightness, palpitations Respiratory: Negative for any cough, sputum production, hemoptysis, dyspnea, dyspnea on exertion, orthopnea Gastrointestinal: Negative for any abdominal pain, nausea, vomiting, diarrhea, constipation, blood in stool, blood in vomit : Negative for any urinary frequency, dysuria, retention, blood in urine Muscle skeletal: Negative for any neck pain, back pain. Positive for right foot pain Neurological: Negative for any headache, syncope, dizziness Skin: Negative for any rashes, itching, abrasions, lacerations Psychiatric: Negative for any depression, anxiety, stress, suicidal ideation, homicidal ideation Hematologic: Negative for any excessive bruising, easy bleeding EXAM <DAYTON Marcos - Last Filed: 07/19/24 15:09> Physical Exam Narrative Exam Narrative: Vital signs reviewed. Patient is alert and orient x 4, patient's heart rate, oxygen is unremarkable, patient's blood pressure was low at 82/64, I did repeat it, it was 94/55. HEET: Head normocephalic atraumatic, TMs clear bilaterally. Posterior pharynx is clear, moist mucous membranes. Nares clear bilaterally. Neck: Supple with no lymphadenopathy or tenderness. No signs of meningismus. Cardiac: Regular rate and rhythm no murmurs gallops or rubs, equal peripheral pulses bilaterally. Respiratory: Lungs clear to auscultation bilaterally. No chest tenderness. Abdomen: Soft, nontender, nondistended. No abdominal bruit or pulsatile masses. No hepatosplenomegaly Extremities: No peripheral edema, no signs of gross trauma or deformity. Active full range of motion of all extremities. Patient's right foot does have slight erythema, edema to the lateral aspect, pain along the 3 4 and 5 metatarsals. No obvious deformity, no open fracture. Neuro: Cranial nerves II through XII intact, no focal neurological deficits. Skin: Clean dry and intact with no rash, purpura, petechiae, vesicles or pustules. Backs/flank: No CVA tenderness, no midline spinal tenderness, no deformity. Psych: Normal mood and affect. No SI, HI or acute psychosis. Const Vital Signs: 07/19/24 13:40 07/19/24 14:51 Temperature 96.5 F L Temperature Source Temporal Pulse Rate 74 Respiratory Rate 18 Blood Pressure 82/64 L 101/72 Blood Pressure Mean 70 81 Pulse Ox 96 Oxygen Delivery Method Room Air <Dr. Derick Alcantara MD - Last Filed: 07/19/24 14:42> Physical Exam Const Vital Signs: 07/19/24 13:40 07/19/24 14:51 Temperature 96.5 F L Temperature Source Temporal Pulse Rate 74 Respiratory Rate 18 Blood Pressure 82/64 L 101/72 Blood Pressure Mean 70 81 Pulse Ox 96 Oxygen Delivery Method Room Air [facility] <DAYTON Marcos - Last Filed: 07/19/24 15:09> [facility] Radiography Diagnostic Testing: Clinical Impression(s) from Imaging Studies Brain CT 07/19/24 13:50 IMPRESSION: 1. No acute intracranial hemorrhage or mass effect. 2. Old left MCA territory infarctions. Electronically Signed: Toni Engel MD ([place]) at 14:31 EDT , Cervical Spine CT 07/19/24 13:50 IMPRESSION: 1. No cervical spine fracture or traumatic subluxation. 2. Right upper lobe volume loss/consolidation with air bronchograms. Possible mediastinal adenopathy. Recommend correlating with chest CT. Electronically Signed: Toni Engel MD ([place]) at 14:34 EDT , Foot X-Ray 07/19/24 14:10 IMPRESSION: 1. Nondisplaced fracture at the base of the fifth metatarsal, new 2. Deformity of the base of the fifth proximal phalanx without discrete fracture line suggests healed fracture. 3. Healed second through fourth metatarsal fractures. Electronically Signed: Toni Engel MD ([place]) at 14:28 EDT , Treatment and Re-Evaluation :: Differential diagnosis includes however is not limited to: Foot fracture, foot contusion, orthostatic hypotension, dehydration Patient is alert and orient x 4, vital signs show hypotension with a blood pressure of 94/55. I spoke with the patient regarding this, she states that she usually does run low. Patient states that she rolled out of bed 2 nights ago around 4:30 in the morning. Patient will receive x-rays of her right foot, se condary to the patient being on Eliquis, waking up on the ground at 4:30 in the morning, she will receive a CT scan of the brain and cervical spine for precaution. All radiologic examinations were read, reviewed by the emergency department attending. From these reads, a plan of care will be put in place. Patient CT scan the brain shows no acute intracranial hemorrhage, patient CT scan of the cervical spine shows no cervical spine fracture. X-rays of the right foot shows a nondisplaced fracture of the base of the fifth metatarsal which does appear new on the film however patient has no significant pain there. At this time, I spoke with the patient, she will like to follow-up with her orthopedic at [facility]. She is not on weightbearing already on that leg, she will continue to do so. She has a postop shoe at home that she says that she would like to wear which I believe is okay. She will continue her daily medications, her blood pressure is much more improved. Patient stable for discharge <Dr. Derick Alcantara MD - Last Filed: 07/19/24 14:42> [facility] Narrative Medical decision making narrative: I have personally performed a face to face assessment of the patient and have reviewed the GERRY Note. I performed a substantive portion of the visit including all aspects of the following. My royal findings include: History is fell out of bed 2 nights ago while sleeping, injured her right foot. No headache, vomiting, focal neurologic symptoms. Currently not putting weight on either leg fully due to prior femur fractures. Exam is tender across the dorsal forefoot and distal half of the fifth metatarsal laterally/peroneally. No deformities. Medical Decison Making three-view x-ray series of the right foot on my interpretation shows possible nondisplaced Sprague fracture. However she is not tender here clinically. She also has healed old fractures that she confirms she had in the past and were treated nonoperatively. We do not see any definitive new fractures in the area where she is having pain more distally. I reviewed her head CT images and report which I agree with, it is negative for acute injury. Patient will be referred to [facility] podiatry since she is already following with [facility] orthopedics. Other additions or changes: [None] Radiography Diagnostic Testing: Clinical Impression(s) from Imaging Studies Brain CT 07/19/24 13:50 IMPRESSION: 1. No acute intracranial hemorrhage or mass effect. 2. Old left MCA territory infarctions. Electronically Signed: Toni Engel MD ([place]) at 14:31 EDT , Cervical Spine CT 07/19/24 13:50 IMPRESSION: 1. No cervical spine fracture or traumatic subluxation. 2. Right upper lobe volume loss/consolidation with air bronchograms. Possible mediastinal adenopathy. Recommend correlating with chest CT. Electronically Signed: Toni Engel MD ([place]) at 14:34 EDT , Foot X-Ray 07/19/24 14:10 IMPRESSION: 1. Nondisplaced fracture at the base of the fifth metatarsal, new 2. Deformity of the base of the fifth proximal phalanx without discrete fracture line suggests healed fracture. 3. Healed second through fourth metatarsal fractures. Electronically Signed: Toni Engel MD ([place]) at 14:28 EDT , Discharge Plan Triage Chief Complaint: Lower Extremity Injury ED Midlevel Provider: Jordi Ivan ED Provider: Derick Alcantara Dx/Rx/DC Orders Clinical Impression: Fall, Acute foot pain, Fracture of fifth metatarsal bone Instructions: ED Fracture, Foot, ED RICE Prescriptions: No Action Januvia 50 mg tablet 50 mg PO DAILY rosuvastatin [Crestor] 20 mg tablet 20 mg PO QHS tizanidine [Zanaflex] 4 mg tablet 4 mg PO Q8H PRN (Reason: MUSCLE SPASMS ) Culturelle 10 billion cell capsule 1 cap PO DAILY pregabalin 100 mg capsule 100 mg PO DAILY multivitamin 1 EACH tablet 1 tab PO DAILY pantoprazole 40 MG tablet 40 mg PO BID amitriptyline 25 MG tablet 25 mg PO QHS duloxetine 60 MG capsule 60 mg PO BID valacyclovir [Valtrex] 500 MG tablet 500 mg PO DAILY Entresto 49-51 mg Tablet 1 tab PO BID alendronate 70 MG tablet 70 mg PO TU aspirin 81 MG tablet,delayed release (DR/EC) 81 mg PO DAILY@0800 dicyclomine 20 mg Tablet 20 mg PO TIDCM guaifenesin [Mucinex] 600 mg Tablet Extended Release 12hr 1,200 mg PO BID Eliquis 5 mg Tablet 5 mg PO BID 30 Days Qty: 60 0RF Patient Comments: Start taking May 03, 2024 carvedilol [Coreg] 25 mg tablet 25 mg PO BIDCM hydrocodone-acetaminophen 7.5-325 mg tablet 1 - 2 tab PO Q8H PRN (Reason: PAIN ) venlafaxine 75 mg tablet 75 mg PO DAILY benzonatate 100 mg capsule 100 - 200 mg PO Q8H PRN (Reason: COUGH ) venlafaxine 75 mg tablet 150 mg PO QHS levothyroxine 125 mcg tablet 125 mcg PO DAILY fluticasone propion-salmeterol [Advair Diskus] 500-50 mcg/dose blister with device 1 ea inhalation BID docusate sodium 100 mg capsule 100 mg PO BID miconazole nitrate [Antifungal (miconazole)] 2 % powder 1 applic topical BID albuterol 90 mcg/actuation aerosol inhalation Q4H PRN ascorbic acid (vitamin C) 500 mg tablet 500 mg PO DAILY calcium carbonate-vitamin D3 [Calcium 600 + D(3)] 600 mg-5 mcg (200 unit) tablet 1 tab PO DAILY All Day Allergy (cetirizine) 10 mg capsule 10 mg PO DAILY magnesium oxide 400 mg magnesium tablet 400 mg PO DAILY cholecalciferol (vitamin D3) [Vitamin D3] 50 mcg (2,000 unit) tablet 50 mcg PO DAILY Galzin 50 mg (zinc) capsule 50 mg PO DAILY acetaminophen 500 mg Tablet 1,000 mg PO Q8 Qty: 0 0RF Primary Care Provider: Brandon Torres Referrals: Brandon Torres, [Primary Care Provider] - Activity Restrictions/Additional Instructions: Continue following up with your orthopedic for the [facility]. Continue to nonweightbearing her right leg. Print Language: Slovenian Disposition Disposition: Home, Self Care
[2024-07-19 14:09] VITALS: BMI 34.0
--- NOTE | 2024-07-19 14:10 | RAD_ITS ---
STUDY: X-RAY - RIGHT FOOT CLINICAL: Female, 63 years old. foot pain TECHNIQUE: 3 view(s) of the foot. COMPARISON: None. FINDINGS: There is a plantar calcaneal spur. Degenerative changes of the midfoot articulation. Operative changes of the distal tibia and fibula. Interval healing of second, third and fourth metatarsal fractures. Nondisplaced fracture the base of the fifth metatarsal is best seen on the frontal and oblique views, new since the prior exam. There is degenerative arthrosis of the metatarsophalangeal joint of the hallux . Normal tibial and fibular sesamoid bones. Normal interphalangeal joint of the great toe. Normal phalanges of the great toe. Normal second through fifth metatarsophalangeal joints. Deformity at the base of the fifth proximal phalanx is seen on the oblique view although discrete fracture line is not seen. The soft tissue structures are unremarkable. RAD/Foot min 3 Views IMPRESSION: 1. Nondisplaced fracture at the base of the fifth metatarsal, new 2. Deformity of the base of the fifth proximal phalanx without discrete fracture line suggests healed fracture. 3. Healed second through fourth metatarsal fractures. Electronically Signed: Toni Engel MD ([place]) at 14:28 EDT Reading Location ID and State: [facility] / [place] , Service support ,
[2024-07-19 14:51] VITALS: BP 101/72
[2024-07-19 15:12] VITALS: BP 101/58; PULSE 69; RESP 18; TEMP 36.6; O2SAT 100
== END 2024-07-19 15:13 | disposition home or self-care (01) ==
PROVIDERS: Emergency Provider Emergency Medicine; PCP Student in an Organized Health Care Education/Training Program; Visit Provider Emergency Medicine
DX: M79.671 Pain in right foot (principal); I13.0 Hypertensive heart and chronic kidney disease with heart failure and stage 1 through stage 4 chronic kidney disease, or unspecified chronic kidney disease; I50.22 Chronic systolic (congestive) heart failure; E11.22 Type 2 diabetes mellitus with diabetic chronic kidney disease; N18.30 Chronic kidney disease, stage 3 unspecified; S92.354D Nondisplaced fracture of fifth metatarsal bone, right foot, subsequent encounter for fracture with routine healing; I25.10 Atherosclerotic heart disease of native coronary artery without angina pectoris; E78.5 Hyperlipidemia, unspecified; Z87.891 Personal history of nicotine dependence; Z86.73 Personal history of transient ischemic attack (TIA), and cerebral infarction without residual deficits; Z79.01 Long term (current) use of anticoagulants; K21.9 Gastro-esophageal reflux disease without esophagitis; F32.A Depression, unspecified; Z79.899 Other long term (current) drug therapy; Z79.82 Long term (current) use of aspirin; J45.909 Unspecified asthma, uncomplicated; Z79.51 Long term (current) use of inhaled steroids; E03.9 Hypothyroidism, unspecified; Z98.61 Coronary angioplasty status; Z96.653 Presence of artificial knee joint, bilateral; Z90.49 Acquired absence of other specified parts of digestive tract; W06.XXXA Fall from bed, initial encounter
CPT/HCPCS: 99282; 70450; 72125; 73630

== ENCOUNTER 2024-07-21 11:23 | Inpatient (IN) | payer MEDICARE, MEDICAID, SELFPAY ==
[2024-07-21] VITALS (11 sets, daily range): BP systolic 73–135; BP diastolic 50–68; PULSE 69–94; RESP 14–24; TEMP 36.4–36.6; O2SAT 96–100; BMI 35.8; BMI 33.7
[2024-07-21] MEDS: 0.9% Normal Saline (1000mL) 1,000 ML 1000 ML IV (11:46)
--- NOTE | 2024-07-21 12:02 | RAD_ITS ---
STUDY: X-RAY CHEST REASON FOR EXAM: Female, 63 years old. Dyspnea and hypotension. TECHNIQUE: Single AP portable view of the chest. COMPARISON: Comparison is made with prior study dated April 25, 2024. FINDINGS: EKG electrodes are seen. Mild loss in the medial aspect of the right upper lobe with evidence of a 4 cm x 2.6 cm density. The patient does have a history of prior lung cancer and radiation treatment. This was demonstrated to be post radiation scarring with bronchiectasis on prior CT scan. There is elevation of the right hemidiaphragm. Normal size heart. Normal mediastinum and jonathan. Normal visualized pulmonary arteries. Normal visualized aortic arch and descending thoracic aorta. There are diffuse degenerative changes of the visualized thoracic spine. Normal visualized ribs, clavicles, and shoulders. There is no demonstrated abnormality of the visualized soft tissue structures of the upper abdomen. RAD/Chest 1 View (Portable) IMPRESSION: Soft tissue density in the upper medial aspect of the right upper lobe with volume loss and elevation of the right hemidiaphragm. 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 Electronically Signed: John Arredondo MD at 12:26 EDT ,
[2024-07-21 12:10] LABS: Base Excess -10 mmol/L (-2 to +2); Bicarbonate 18.1 mmol/L (22-26); Blood Gas Specimen Type ART; Mode Not entered; O2 Delivery Device Room Air; PO2 70 mmHG (75-100); SITE R Brach; SO2 90 % (95-99); Total Carbon Dioxide 19 mmol/L; pCO2 43.2 mmHg (35-45); pH 7.23 (7.35-7.45)
[2024-07-21 12:13] LABS: Absolute Lymphocyte Count 0.99 X10^3/uL (0.83-4.51); Absolute Neutrophil Count 5.7 X10^3/uL (2.0-7.7); Basophil# 0.03 X10^3/uL; Basophil% 0.4 % (0-1); Eosinophil# 0.23 X10^3/uL; Lymphocyte # 0.99 X10^3/ul (0.83-4.51); Monocyte# 0.58 X10^3/uL; Monocyte% 7.6 % (0-10); NRBC Flagged by Analyzer 0 % (0-5); Neutrophil # 5.73 X10^3/uL (2.7-7.7); Neutrophil % 75.6 % (47-70); Platelet Count 132 K/mm3 (150-450); RBC Distribution Width CV 15.3 % (11.6-14.6); RBC Distribution Width SD 55.8 fl (35.1-43.9); White Blood Count 7.6 K/mm3 (4.4-11.0)
--- NOTE | 2024-07-21 12:16 | EX.ED.DYSGE1 ---
HPI History of Present Illness Chief Complaint: Hypotension Detail of Chief Complaint: I am tired and do not feel well Informant: patient Onset/Context/Timing Onset: Today Current Severity: Moderate Maximum Severity: Moderate Worsened by: Nothing Relieved by: Thing Associated Symptoms Associated Symptoms: No other symptoms Narrative Narrative: patient is a 63-year-old woman. She arrived by ambulance. She complained of being tired and weakness. She has a past history of hypothyroidism, type 2 diabetes, COPD, chronic heart failure with reduced ejection fraction, macrocytic anemia, long-term anticoagulant use, irritable bowel syndrome, nonischemic cardiomyopathy, hyperlipidemia and carotid stenosis with CVA 2018. Patient presents because of feeling tired and weak. She denies headache, visual, ocular auditory symptoms. Denies rhinorrhea, congestion postnasal drainage. Denies sore throat. Denies ear pain or drainage. She denies neck pain or throat pain. She denies cough, shortness of breath or difficulty breathing. She denies chest pressure tightness or heaviness. She denies abdominal pain. She denies nausea, vomiting or diarrhea. Denies black or maroon-colored stool. She denies dysuria, frequency, urgency or hematuria. Prior similar symptoms: Yes (Per review of old records she has had hypotension in the past.) Recent Illness/Hospitalization: No PFSH PFS Medical History Depression Hypothyroidism History of MRSA infection of lungs Delirium Debility Falls Metabolic encephalopathy Complicated urinary tract infection Acute hypotension Brain TIA Embolic stroke Normocytic anemia History of stroke Diabetes mellitus Hyperlipidemia Hypertension Stroke/cerebrovascular accident Cardiomyopathy Chronic systolic (congestive) heart failure Non-ischemic cardiomyopathy History of CVA (cerebrovascular accident) (2018) Flash pulmonary edema (01/16/21) Peripheral vascular disease History of depression Atherosclerosis of coronary artery without angina pectoris CKD (chronic kidney disease) stage 3, GFR 30-59 ml/min Asthma exacerbation Pulmonary edema Acute respiratory failure with hypoxia Trigeminal trophic syndrome Stomach ulcer Hypothyroidism Osteopenia Osteoarthritis Kidney disease Hyperlipidemia Essential hypertension Chronic headaches GI problem Gallstones History of emotional problems Type 2 diabetes mellitus Carpal tunnel syndrome Bone fracture Asthma Anemia Seasonal allergies Herpes simplex GERD (gastroesophageal reflux disease) Allergic rhinitis Irritable bowel syndrome Gait difficulty Right hemiparesis Debility Osteoporosis Normochromic normocytic anemia Secondary adrenal insufficiency ACTH deficiency Neuropathy Falls Hypotension Carotid artery stenosis Bilateral leg weakness History of ischemic colitis Chronic constipation with suspected IBS Obesity Hx of diverticulitis of colon History of Clostridium difficile infection Home Medications ?Medication ?Instructions ?Recorded ?Last Taken ?Type multivitamin 1 tab PO DAILY SUPPLEMENT 12/29/17 04/24/24 History pantoprazole 40 mg tablet,delayed 40 mg PO BID GERD 03/29/19 10/24/23 History release amitriptyline 25 mg tablet 25 mg PO QHS MOOD 08/10/19 04/24/24 History rosuvastatin 20 mg tablet (Crestor) 20 mg PO QHS CHOLESTEROL 08/25/19 04/24/24 History sitagliptin phosphate 50 mg tablet 50 mg PO DAILY DIABETES 09/04/19 04/25/24 History (Januvia) duloxetine 60 mg capsule,delayed 60 mg PO BID DEPRESSION 10/19/20 04/25/24 History release valacyclovir 500 mg tablet 500 mg PO DAILY COLD SORES 10/19/20 04/25/24 History (Valtrex) tizanidine 4 mg tablet (Zanaflex) 4 mg PO Q8H PRN MUSCLE SPASMS 01/26/21 04/24/24 History Lactobacillus rhamnosus GG 10 1 cap PO DAILY GUT HEALTH 05/18/21 04/25/24 History billion cell capsule (Culturelle) pregabalin 100 mg capsule 100 mg PO DAILY PAIN 05/18/21 04/25/24 History sacubitril 49 mg-valsartan 51 mg 1 tab PO BID HEART 02/11/22 04/25/24 History tablet (Entresto) alendronate 70 mg tablet 70 mg PO TU BONES 02/13/22 04/22/24 History aspirin 81 mg tablet,delayed 81 mg PO DAILY@0800 HEART HEALTH 02/15/22 04/25/24 History release dicyclomine 20 mg tablet 20 mg PO TIDCM IRRITABLE BOWELS 09/11/22 04/25/24 History guaifenesin 600 mg tablet, 1,200 mg PO BID COUGH 09/11/22 04/25/24 History extended release 12 hr (Mucinex) apixaban 5 mg tablet (Eliquis) 5 mg PO BID blood thinner 30 days 09/18/22 04/25/24 Rx #60 tabs benzonatate 100 mg capsule 100 - 200 mg PO Q8H PRN COUGH 05/28/23 Unknown History venlafaxine 75 mg tablet 75 mg PO DAILY DEPRESSION 05/28/23 04/25/24 History venlafaxine 75 mg tablet 150 mg PO QHS DEPRESSION 05/29/23 04/24/24 History carvedilol 25 mg tablet (Coreg) 25 mg PO BIDCM HEART 10/24/23 04/25/24 History hydrocodone 7.5 mg-acetaminophen 1 - 2 tab PO Q8H PRN PAIN 10/24/23 04/25/24 History 325 mg tablet fluticasone 500 mcg-salmeterol 50 1 ea inhalation BID Asthma 04/25/24 04/25/24 History mcg/dose blistr powdr for inhalation (Advair Diskus) levothyroxine 125 mcg tablet 125 mcg PO DAILY Hypothyroidism 04/25/24 04/25/24 History albuterol 90 mcg/actuation aerosol mcg inhalation Q4H PRN Wheezing, 05/01/24 Unknown History inhaler shortness of breath ascorbic acid (vitamin C) 500 mg 500 mg PO DAILY Supplement 05/01/24 Unknown History tablet calcium carbonate 600 mg-vitamin 1 tab PO DAILY Supplement 05/01/24 Unknown History D3 5 mcg (200 unit) tablet (Calcium 600 + D(3)) cetirizine 10 mg capsule (All Day 10 mg PO DAILY Allergies 05/01/24 Unknown History Allergy (cetirizine)) cholecalciferol (vitamin D3) 50 50 mcg PO DAILY Supplement 05/01/24 Unknown History mcg (2,000 unit) tablet (Vitamin D3) docusate sodium 100 mg capsule 100 mg PO BID Constipation 05/01/24 Unknown History magnesium oxide 400 mg PO DAILY Supplement 05/01/24 Unknown History miconazole nitrate 2 % topical 1 applic topical BID Redness 05/01/24 Unknown History powder (Antifungal (miconazole)) zinc acetate 50 mg (zinc) capsule 50 mg PO DAILY Supplement 05/01/24 Unknown History (Galzin) acetaminophen 500 mg tablet 1,000 mg (2 x 500 mg) PO Q8 #0 tabs 05/12/24 Unknown Rx Allergy/AdvReac Type Severity Reaction Status Date / Time adhesive Allergy skin Verified 07/21/24 11:32 irritation amlodipine (From Norvasc) Allergy tachycardia Verified 07/21/24 11:32 hydromorphone HCl (From Allergy Itching Verified 07/21/24 11:32 Dilaudid) sulfamethoxazole (From Allergy made my Verified 07/21/24 11:32 Bactrim) cold sore huge trimethoprim (From Bactrim) Allergy made my Verified 07/21/24 11:32 cold sore huge Family History Grandfather Alcoholism Grandmother Myocardial infarction Mother Arthritis Diverticulitis COPD (chronic obstructive pulmonary disease) Afib Thyroid disorder Father Arthritis Diabetes Myocardial infarction Heart disease Ischemic Hypertension Hyperlipidemia Brother Arthritis Aunt Breast cancer Sister Arthritis Thyroid disorder Skin cancer Uncle Diabetes Surgical History History of angioplasty of peripheral vessel (2010) History of left heart catheterization (2011) History of trigger finger Ankle fracture Strangulated ventral hernia History of back surgery Fracture of left femur History of ventral hernia repair History of intestine removal History of arthroscopic knee surgery History of bilateral knee replacement History of cholecystectomy History of carpal tunnel release History of tonsillectomy and adenoidectomy Social History household members: none Smoking Status: Former smoker how long ago did patient quit smokin alcohol intake: never substance use type: does not use what type of physical activity do you participate in: other ROS ROS ED Constitutional Constitutional ED: Denies chills, fever(s), subjective, sweats or weight loss Eyes Eyes: Denies blurry vision, change in vision or diplopia ENT ENT ED: Denies ear pain, rhinorrhea or sore throat Cardiovascular Cardiovascular: Reports other Details: Patient is on carvedilol. ; Denies chest pain, orthopnea, palpitations or racing heartbeat Respiratory/Chest Respiratory/Chest: Denies cough, dyspnea, dyspnea on exertion or orthopnea Gastrointestinal Gastrointestinal: Denies abdominal pain, diarrhea, melena, nausea or vomiting Genitourinary Genitourinary ED: Denies dysuria, hematuria or urinary frequency Musculoskeletal Musculoskeletal: Denies arthralgias, back pain, myalgias or neck pain Integumentary Denies rash Neurologic Neurologic: Reports weakness; Denies headache(s) or paresthesias Psychiatric Psychiatric: Denies anxiety or depression Endocrine Endocrinology: Denies cold intolerance or heat intolerance Hematologic/Lymphatic Hematologic/Lymphatic: Reports systems reviewed and no addt'l complaints, except as documented EXAM Physical Exam Const Vital Signs: 07/21/24 11:25 07/21/24 11:31 07/21/24 12:44 Temperature 97.5 F L Temperature Source Temporal Pulse Rate 75 79 Respiratory Rate 16 16 Respiratory Effort Normal Non-Labored Respiratory Pattern Normal Blood Pressure 73/50 L 87/51 L Blood Pressure Mean 57 63 Pulse Ox 99 99 Oxygen Delivery Method Room Air Room Air 07/21/24 13:00 07/21/24 13:45 07/21/24 14:00 Temperature Temperature Source Pulse Rate 77 79 70 Respiratory Rate 15 14 Respiratory Effort Respiratory Pattern Blood Pressure 80/51 L 89/67 L 86/57 L Blood Pressure Mean 59 76 66 Pulse Ox 100 99 Oxygen Delivery Method Room Air Positive well nourished and well developed Constitutional Narrative: Patient has evidence of acrocyanosis. There is delayed cap refill. There is some mottling noted. General Appearance ED: well developed, NAD and pallor; Negative for cyanotic or diaphoretic HEENT Reports dry mucous membranes HEENT Narrative: Head is atraumatic normocephalic. Ears normal. TMs normal. Nares patent. Posterior pharynx is normal. Uvula is midline. No deviation with protrusion. Mouth ED: Yes dry mucous membranes Mouth: dry mucous membranes Eyes PERRL and EOMs intact bilaterally General Eye ED: Yes pale conjunctiva; Negative for scleral icterus Neck no lymphadenopathy, supple and no JVD Chest Wall inspection of chest normal and palpation of chest normal Resp normal respiratory effort and clear to auscultation bilaterally Cardio regular rate, regular rhythm, S1 normal heart sound, S2 normal heart sound and no murmurs GI normal to inspection, nondistended, normoactive bowel sounds, non-tender, non-distended and no masses; Negative for hepatosplenomegaly Back/Spine no CVA tenderness Extremity Extremity Narrative: Slight edema of the extremities. Also acrocyanosis. There is also delayed capillary refill. Neuro oriented x3 and CN's II-XII intact bilaterally Sensorium / Orientation: Negative for alert Psych mental status grossly normal Skin no rashes or lesions noted and no wounds General Skin Exam: pallor MDM MDM MDM Narrative Medical decision making narrative: Patient is hypotensive. Need to determine if this is due to cardiac versus noncardiac etiology. Since patient's not hypoxic tachypneic doubt pulmonary embolus. Suspect she is not tachycardic because he is on carvedilol. Need to rule out infectious cause. Initial workup included EKG, chest x-ray and appropriate blood work. The cause of her anemia at that time was not due to GI blood loss but femur fracture. Chest x-ray slightly rotated. There is no obvious infiltrate, effusion or abnormality to at this time. There is soft tissue density in the right upper lobe which may be scarring due to to the fact that she has history of cancer in the remote past. Cardiac silhouette size normal. Ostia structures are unremarkable. Lab Data Attestation: I reviewed the patient's lab results. Lab results narrative: CBC reveals anemia.H&H on May 02 was 11.2 and 34.1. Hemoglobin on April 25 was 7.1 with hematocrit of 22.6. Labs: Laboratory Results - last 24 hr 07/21/24 11:56 WBC 7.6 RBC 3.00 L Hgb 9.0 L Hct 30.0 L MCV 100.0 H MCH 30.0 MCHC 30.0 L RDW Std Deviation 55.8 H RDW Coeff of Lencho 15.3 H Plt Count 132 L MPV 10.0 Immature Gran % (Auto) 0.400 Neut % (Auto) 75.6 H Lymph % (Auto) 13.0 L Dale % (Auto) 7.6 Eos % (Auto) 3.0 Baso % (Auto) 0.4 Absolute Neuts (auto) 5.7 Absolute Lymphs (auto) 0.99 Nucleated RBC % 0 Sodium 133 L Potassium 5.0 Chloride 101 Carbon Dioxide 20.0 L Anion Gap 12 BUN 47 H Creatinine 2.28 H Estim Creat Clear Calc 28.17 Est GFR (MDRD) Af Amer 28 L Est GFR (MDRD) Non-Af 23 L BUN/Creatinine Ratio 20.6 H Glucose 83 Lactic Acid 1.1 Calcium 9.1 Total Bilirubin 0.40 AST 35 ALT 26 Alkaline Phosphatase 106 Troponin I High Sens 7 Total Protein 6.2 L Albumin 2.8 L Globulin 3.4 Albumin/Globulin Ratio 0.8 L ABG Data Attestation: I personally reviewed and interpreted this ABG as follows: Interpretation: ABG reveals a metabolic acidosis. Patient's lactate was elevated at 5.8. ABG results: ABG 07/21/24 12:07 Specimen Type ART Sample Site R Brach pH 7.23 L Bicarbonate Actual 18.1 L Total CO2 19 Base Excess -10 L O2 Saturation 90 L ABG pCO2 43.2 ABG pO2 70 L O2 Delivery Device Room Air Vent Mode Not entered Radiography Chest X-Ray - ED: 1 View and Read by ED Physician (Documented under the MDM/plan.) Diagnostic Testing: Clinical Impression(s) from Imaging Studies Chest X-Ray 07/21/24 12:02 IMPRESSION: Soft tissue density in the upper medial aspect of the right upper lobe with volume loss and elevation of the right hemidiaphragm. 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 Electronically Signed: John Arredondo MD at 12:26 EDT , EKG Initial EKG: Attestation: I personally reviewed and interpreted this EKG as follows: Interpretation: Sinus Rhythm (Rate is 71. There is evidence of first-degree AV block. MI interval is 218 ms. QRS duration 114 ms. QT duration 426 ms. [place] is normal.) Management Discussion w/another healthcare provider: Hospitalist and Busser (Cardiology to read stat echo) Treatment and Re-Evaluation :: Since the cause of patient's shock is unknown. An echo was ordered. Echo would not be performed with all 3. Since patient is in shock will call hospitalist for admission to ICU. Critical Care Time Critical Care Time: Yes Critical care time (excluding procedures): 30-74 minutes (35), Including time spent: (History, physical, documentation, treatment of shock), Discussing w/Patient &/or Family/Lesson Instructor, Discussing w/Consultants and Arranging Admission or Transfer Discharge Plan Dx/Rx/DC Orders Clinical Impression: Shock, Non-ischemic cardiomyopathy, Hyperlipidemia, Acute hypotension, History of hypertension, History of type 2 diabetes mellitus, Acute kidney injury Disposition Disposition: [facility]
[2024-07-21 12:35] LABS: ALB/GLOB Ratio 0.8 RATIO (0.9-2.4); AST(SGOT) 35 U/L (15-37); Alanine Aminotransfer ALT/SGPT 26 U/L (13-56); Albumin, Serum 2.8 g/dL (3.2-5.0); Alkaline Phosphatase 106 U/L (45-117); Anion Gap 12 (5-15); BUN 47 mg/dL (7-18); BUN/Creat Ratio 20.6 RATIO (10-20); Calcium,Total 9.1 mg/dL (8.5-10.1); Chloride 101 mmol/L (98-107); Creatinine, Serum 2.28 mg/dL (0.55-1.02); EST Glomerular Filtration Rate 23 mL/min (>60); Est Glom Filt Rate - Afr Amer 28 mL/min (>60); Estimated Creatinine Clearance 28.17 ml/min; Globulin 3.4 g/dL (2.2-4.2); Glucose 83 mg/dL (74-106); Protein, Total 6.2 g/dL (6.4-8.2); Sodium Level 133 mmol/L (136-145); Troponin-I HS (w/2H Reflex) 7 pg/mL (3.0-54.0)
[2024-07-21 12:41] LABS: Lactic Acid 1.1 mmol/L (0.4-1.9)
--- NOTE | 2024-07-21 13:22 | ECHOCS_ITS ---
Reason For Study: Hypotension Procedure This was a 2D Doppler, Color Flow transthoracic echocardiogram. The study was technically difficult. Contrast injection was performed. Patient scanned supine due to condition. Exam performed portable in ED. Left Ventricle Normal size and thickness. The left ventricular ejection fraction is 60 %. Diastolic function is indeterminate. Right Ventricle Normal right ventricle. Atria The left and right atria are normal. Mitral Valve Trivial mitral valve insufficiency. Tricuspid Valve Trivial tricuspid valve insufficiency. Unable to estimate RV systolic pressure due to insufficient tricuspid regurgitant envelope. Aortic Valve Trisinus/trileaflet aortic valve. Pulmonic Valve The pulmonic valve is not well visualized. Great Vessels The aortic root is not well visualized. Pericardium/Pleural No pericardial effusion. Medication Diluted definity 2ml given slow IV push to enhance endocardial definition. MMode/2D Measurements & Calculations LVIDd: 4.0 cm IVSd: 0.98 cm LA dimension: 3.3 cm LVIDs: 2.8 cm LVPWd: 1.0 cm FS: 30.1 % LAV(MOD-bp): 54.6 ml LVAd ap4: 30.6 cm2 SV(MOD-sp4): 64.6 ml LAV(MOD-bp) Indexed: 27.5 ml/m2 LVLd ap4: 7.7 cm LAV(MOD-sp2): 49.0 ml EDV(MOD-sp4): 100.5 ml LAV(MOD-sp4): 52.2 ml EDV(sp4-el): 103.6 ml LVAs ap4: 16.3 cm2 LVLs ap4: 6.0 cm ESV(MOD-sp4): 35.9 ml ESV(sp4-el): 37.5 ml EF(MOD-sp4): 64.2 % EF(sp4-el): 63.8 % SV(sp4-el): 66.1 ml LA A4 area: 19.3 cm2 RA A4 area: 14.8 cm2 TAPSE: 1.6 cm Time Measurements MV dec time: 0.27 sec Doppler Measurements & Calculations MV E max jaya: 91.6 cm/sec Lat Peak E' Jaya: 8.3 cm/sec Med Peak E' Jaya: 5.1 cm/sec MV A max jaya: 121.7 cm/sec E/E' lat: 11.0 E/E' med: 17.9 MV E/A: 0.75 MV V2 max: 134.7 cm/sec MV P1/2t max jaya: 95.9 cm/sec Ao V2 max: 130.9 cm/sec MV max P.3 mmHg MV P1/2t: 60.0 msec Ao max P.9 mmHg MV V2 mean: 67.5 cm/sec MV mean P.3 mmHg MV dec slope: 468.0 cm/sec2 MV V2 VTI: 25.8 cm MVA(P1/2t): 3.7 cm2 LV V1 max: 86.7 cm/sec PA V2 max: 71.5 cm/sec LV V1 max P.0 mmHg LV V1 mean P.4 mmHg LV V1 mean: 53.1 cm/sec LV V1 VTI: 15.3 cm ECHO/Echo Complete W/ Contrast Interpretation Summary The study was technically difficult. The left ventricular ejection fraction is 60 %. Ordering Physician: Addy Choi Performed By: Gabriel Akins RCS
[2024-07-21 14:05] LABS: Reflex Troponin-HS? (from REC) Y
--- NOTE | 2024-07-21 14:36 | HP.PCM.HOS_ITS ---
HPI - General General Date of Admission: 07/21/24 Date of Service: 07/21/24 Chief Complaint: General malaise HPI Narrative BILL CHOI, is a 63 F who presented [facility] Medical History Depression Hypothyroidism History of MRSA infection of lungs Delirium Debility Falls Metabolic encephalopathy Complicated urinary tract infection Acute hypotension Brain TIA Embolic stroke Normocytic anemia History of stroke Diabetes mellitus Hyperlipidemia Hypertension Stroke/cerebrovascular accident Cardiomyopathy Chronic systolic (congestive) heart failure Non-ischemic cardiomyopathy History of CVA (cerebrovascular accident) (2018) Flash pulmonary edema (01/16/21) Peripheral vascular disease History of depression Atherosclerosis of coronary artery without angina pectoris CKD (chronic kidney disease) stage 3, GFR 30-59 ml/min Asthma exacerbation Pulmonary edema Acute respiratory failure with hypoxia Trigeminal trophic syndrome Stomach ulcer Hypothyroidism Osteopenia Osteoarthritis Kidney disease Hyperlipidemia Essential hypertension Chronic headaches GI problem Gallstones History of emotional problems Type 2 diabetes mellitus Carpal tunnel syndrome Bone fracture Asthma Anemia Seasonal allergies Herpes simplex GERD (gastroesophageal reflux disease) Allergic rhinitis Irritable bowel syndrome Gait difficulty Right hemiparesis Debility Osteoporosis Normochromic normocytic anemia Secondary adrenal insufficiency ACTH deficiency Neuropathy Falls Hypotension Carotid artery stenosis Bilateral leg weakness History of ischemic colitis Chronic constipation with suspected IBS Obesity Hx of diverticulitis of colon History of Clostridium difficile infection Home Medications ?Medication ?Instructions ?Recorded ?Last Taken ?Type multivitamin 1 tab PO DAILY SUPPLEMENT 12/29/17 04/24/24 History pantoprazole 40 mg tablet,delayed 40 mg PO BID GERD 03/29/19 10/24/23 History release amitriptyline 25 mg tablet 25 mg PO QHS MOOD 08/10/19 04/24/24 History rosuvastatin 20 mg tablet (Crestor) 20 mg PO QHS CHOLESTEROL 08/25/19 04/24/24 History sitagliptin phosphate 50 mg tablet 50 mg PO DAILY DIABETES 09/04/19 04/25/24 History (Januvia) duloxetine 60 mg capsule,delayed 60 mg PO BID DEPRESSION 10/19/20 04/25/24 History release valacyclovir 500 mg tablet 500 mg PO DAILY COLD SORES 10/19/20 04/25/24 History (Valtrex) tizanidine 4 mg tablet (Zanaflex) 4 mg PO Q8H PRN MUSCLE SPASMS 01/26/21 04/24/24 History Lactobacillus rhamnosus GG 10 1 cap PO DAILY GUT HEALTH 05/18/21 04/25/24 History billion cell capsule (Culturelle) pregabalin 100 mg capsule 100 mg PO DAILY PAIN 05/18/21 04/25/24 History sacubitril 49 mg-valsartan 51 mg 1 tab PO BID HEART 02/11/22 04/25/24 History tablet (Entresto) alendronate 70 mg tablet 70 mg PO TU BONES 02/13/22 04/22/24 History aspirin 81 mg tablet,delayed 81 mg PO DAILY@0800 HEART HEALTH 02/15/22 04/25/24 History release dicyclomine 20 mg tablet 20 mg PO TIDCM IRRITABLE BOWELS 09/11/22 04/25/24 History guaifenesin 600 mg tablet, 1,200 mg PO BID COUGH 09/11/22 04/25/24 History extended release 12 hr (Mucinex) apixaban 5 mg tablet (Eliquis) 5 mg PO BID blood thinner 30 days 09/18/22 04/25/24 Rx #60 tabs benzonatate 100 mg capsule 100 - 200 mg PO Q8H PRN COUGH 05/28/23 Unknown History venlafaxine 75 mg tablet 75 mg PO DAILY DEPRESSION 05/28/23 04/25/24 History venlafaxine 75 mg tablet 150 mg PO QHS DEPRESSION 05/29/23 04/24/24 History carvedilol 25 mg tablet (Coreg) 25 mg PO BIDCM HEART 10/24/23 04/25/24 History hydrocodone 7.5 mg-acetaminophen 1 - 2 tab PO Q8H PRN PAIN 10/24/23 04/25/24 History 325 mg tablet fluticasone 500 mcg-salmeterol 50 1 ea inhalation BID Asthma 04/25/24 04/25/24 History mcg/dose blistr powdr for inhalation (Advair Diskus) levothyroxine 125 mcg tablet 125 mcg PO DAILY Hypothyroidism 04/25/24 04/25/24 History albuterol 90 mcg/actuation aerosol mcg inhalation Q4H PRN Wheezing, 05/01/24 Unknown History inhaler shortness of breath ascorbic acid (vitamin C) 500 mg 500 mg PO DAILY Supplement 05/01/24 Unknown History tablet calcium carbonate 600 mg-vitamin 1 tab PO DAILY Supplement 05/01/24 Unknown History D3 5 mcg (200 unit) tablet (Calcium 600 + D(3)) cetirizine 10 mg capsule (All Day 10 mg PO DAILY Allergies 05/01/24 Unknown History Allergy (cetirizine)) cholecalciferol (vitamin D3) 50 50 mcg PO DAILY Supplement 05/01/24 Unknown History mcg (2,000 unit) tablet (Vitamin D3) docusate sodium 100 mg capsule 100 mg PO BID Constipation 05/01/24 Unknown History magnesium oxide 400 mg PO DAILY Supplement 05/01/24 Unknown History miconazole nitrate 2 % topical 1 applic topical BID Redness 05/01/24 Unknown History powder (Antifungal (miconazole)) zinc acetate 50 mg (zinc) capsule 50 mg PO DAILY Supplement 05/01/24 Unknown History (Galzin) acetaminophen 500 mg tablet 1,000 mg (2 x 500 mg) PO Q8 #0 tabs 05/12/24 Unknown Rx Allergy/AdvReac Type Severity Reaction Status Date / Time adhesive Allergy skin Verified 07/21/24 11:32 irritation amlodipine (From Norvasc) Allergy tachycardia Verified 07/21/24 11:32 hydromorphone HCl (From Allergy Itching Verified 07/21/24 11:32 Dilaudid) sulfamethoxazole (From Allergy made my Verified 07/21/24 11:32 Bactrim) cold sore huge trimethoprim (From Bactrim) Allergy made my Verified 07/21/24 11:32 cold sore huge Family History Grandfather Alcoholism Grandmother Myocardial infarction Mother Arthritis Diverticulitis COPD (chronic obstructive pulmonary disease) Afib Thyroid disorder Father Arthritis Diabetes Myocardial infarction Heart disease Ischemic Hypertension Hyperlipidemia Brother Arthritis Aunt Breast cancer Sister Arthritis Thyroid disorder Skin cancer Uncle Diabetes Surgical History History of angioplasty of peripheral vessel (2010) History of left heart catheterization (2011) History of trigger finger Ankle fracture Strangulated ventral hernia History of back surgery Fracture of left femur History of ventral hernia repair History of intestine removal History of arthroscopic knee surgery History of bilateral knee replacement History of cholecystectomy History of carpal tunnel release History of tonsillectomy and adenoidectomy Social History household members: none Smoking Status: Former smoker how long ago did patient quit smokin alcohol intake: never substance use type: does not use what type of physical activity do you participate in: other Vital Signs Vital Signs Vital Signs: 07/21/24 11:25 07/21/24 11:31 07/21/24 12:44 Temperature 97.5 F L Temperature Source Temporal Pulse Rate 75 79 Respiratory Rate 16 16 Respiratory Effort Normal Non-Labored Respiratory Pattern Normal Blood Pressure 73/50 L 87/51 L Blood Pressure Mean 57 63 Pulse Ox 99 99 Oxygen Delivery Method Room Air Room Air 07/21/24 13:00 07/21/24 13:45 07/21/24 14:00 Temperature Temperature Source Pulse Rate 77 79 70 Respiratory Rate 15 14 Respiratory Effort Respiratory Pattern Blood Pressure 80/51 L 89/67 L 86/57 L Blood Pressure Mean 59 76 66 Pulse Ox 100 99 Oxygen Delivery Method Room Air Weight Weight: 94.6 kg Body Mass Index (BMI) 35.8 Results Lab / Micro Data 07/21/24 11:56 07/21/24 11:56 Labs: Laboratory Results - last 24 hr 07/21/24 11:56: WBC 7.6, RBC 3.00 L, Hgb 9.0 L, Hct 30.0 L, MCV 100.0 H, MCH 30.0, MCHC 30.0 L, RDW Std Deviation 55.8 H, RDW Coeff of Lencho 15.3 H, Plt Count 132 L, MPV 10.0, Immature Gran % (Auto) 0.400, Neut % (Auto) 75.6 H, Lymph % (Auto) 13.0 L, Elbert % (Auto) 7.6, Eos % (Auto) 3.0, Baso % (Auto) 0.4, Absolute Neuts (auto) 5.7, Absolute Lymphs (auto) 0.99, Nucleated RBC % 0, Sodium 133 L, Potassium 5.0, Chloride 101, Carbon Dioxide 20.0 L, Anion Gap 12, BUN 47 H, C reatinine 2.28 H, Estim Creat Clear Calc 28.17, Est GFR (MDRD) Af Amer 28 L, Est GFR (MDRD) Non-Af 23 L, BUN/Creatinine Ratio 20.6 H, Glucose 83, Lactic Acid 1.1, Calcium 9.1, Total Bilirubin 0.40, AST 35, ALT 26, Alkaline Phosphatase 106, Troponin I High Sens 7, Total Protein 6.2 L, Albumin 2.8 L, Globulin 3.4, A lbumin/Globulin Ratio 0.8 L ABG Data ABG results: ABG 07/21/24 12:07 Specimen Type ART Sample Site R Brach pH 7.23 L Bicarbonate Actual 18.1 L Total CO2 19 Base Excess -10 L O2 Saturation 90 L ABG pCO2 43.2 ABG pO2 70 L O2 Delivery Device Room Air Vent Mode Not entered Imaging Radiology Impression Chest X-Ray 07/21/24 12:02 IMPRESSION: Soft tissue density in the upper medial aspect of the right upper lobe with volume loss and elevation of the right hemidiaphragm. 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 Electronically Signed: John Arredondo MD at 12:26 EDT , Assessment & Plan Assessment/Plan (1) Acute kidney injury: (2) Acute hypotension: (3) Metabolic acidosis: (4) Hyponatremia: (5) Anemia: Charges/Coding Visit Charges Inpatient E&M: 12371 Init Hosp L3
--- NOTE | 2024-07-21 14:36 | PCM.HP.STD ---
HPI - General General Date of Admission: 07/21/24 Date of Service: 07/21/24 Chief Complaint: General malaise HPI Narrative BILL CHOI, is a 63 F who presented to the emergency department at [facility] on 07/21/2020 for due to general malaise. Patient reported that she was here on 07/19/2024 after she sustained a fall at home 2 nights prior to presentation. She indicated she was unclear as to why she fell but she woke up on the ground and had acute foot pain so she is brought to the emergency department at which time she was noted to have a right fifth metatarsal fracture at the base. She is currently nonweightbearing on her right lower extremity due to femoral fracture she sustained in April (had surgery at [facility] [place] and follows with orthopedic surgery there). She was instructed to follow-up with orthopedic surgery as she had an appointment upcoming. On the day of presentation her primary complaint was just not being able to stay awake. She was very tired and weak per her report. She denies any appetite changes and reports she has been eating and drinking well. She denies any nausea or vomiting or diarrhea. She denied fever or chills, shortness of breath, chest pain, focal sensory change or weakness and has not had any respiratory symptoms either. She denied any hematochezia or melena. She stated she has been taking her medications at home as directed previously and was feeling fine up until 2 days ago however the above documentation from previous hospitalization notes otherwise. Vital signs on presentation showed temperature of 97.5, heart rate 75, respiratory 16, initial blood pressure was 73/50 with a repeat after fluids up to 86/57, respiratory rate was 16, pulse ox was 99% on room air. She did desat when she was falling asleep likely due to undiagnosed obstructive sleep apnea and was placed on supplemental oxygen for this however oxygen saturations improved when she is awake. CBC showed a normal white count however she was noted to have a left shift at 75.6%. Her hemoglobin was 9.0 which was stable when compared to previous and her platelet count was 132,000. This is down from previous. Her chemistry showed a hyponatremia with a sodium of 133, serum bicarb of 20, anion gap was normal at 12, BUN was 47 and serum creatinine was 2.28 which is markedly elevated from her baseline of 0.5-0.75 done recently. Her lactic acid was normal at 1.1. Liver functions were unremarkable. Troponins were 5 and 6 respectively. A blood gas was obtained and she was found to have a pH of 7.23 with a pCO2 of 43.2 and a pO2 of 70 on room air. Her UA was unremarkable and this was done after fluids were given. Urine sodium was 36 but again fluids had been given prior to this. I have requested blood cultures and urine culture given her left shift on presentation, hypotension, and general malaise that I do not have an etiology for her decompensation. She was treated with aggressive IV fluids [facility] Medical History (Updated 07/21/24 @ 15:[address] Ariella Call, DO) Right femoral fracture Depression Hypothyroidism History of MRSA infection of lungs Delirium Debility Falls Metabolic encephalopathy Complicated urinary tract infection Acute hypotension Brain TIA Embolic stroke Normocytic anemia History of stroke Diabetes mellitus Hyperlipidemia Hypertension Stroke/cerebrovascular accident Cardiomyopathy Chronic systolic (congestive) heart failure Non-ischemic cardiomyopathy History of CVA (cerebrovascular accident) (2018) Flash pulmonary edema (01/16/21) Peripheral vascular disease History of depression Atherosclerosis of coronary artery without angina pectoris CKD (chronic kidney disease) stage 3, GFR 30-59 ml/min Asthma exacerbation Pulmonary edema Acute respiratory failure with hypoxia Trigeminal trophic syndrome Stomach ulcer Hypothyroidism Osteopenia Osteoarthritis Kidney disease Hyperlipidemia Essential hypertension Chronic headaches GI problem Gallstones History of emotional problems Type 2 diabetes mellitus Carpal tunnel syndrome Bone fracture Asthma Anemia Seasonal allergies Herpes simplex GERD (gastroesophageal reflux disease) Allergic rhinitis Irritable bowel syndrome Gait difficulty Right hemiparesis Debility Osteoporosis Normochromic normocytic anemia Secondary adrenal insufficiency ACTH deficiency Neuropathy Falls Hypotension Carotid artery stenosis Bilateral leg weakness History of ischemic colitis Chronic constipation with suspected IBS Obesity Hx of diverticulitis of colon History of Clostridium difficile infection Home Medications ?Medication ?Instructions ?Recorded ?Last Taken ?Type pantoprazole 40 mg tablet,delayed 40 mg PO BID GERD 03/29/19 10/24/23 History release amitriptyline 25 mg tablet 25 mg PO QHS MOOD 08/10/19 04/24/24 History rosuvastatin 20 mg tablet (Crestor) 20 mg PO QHS CHOLESTEROL 08/25/19 04/24/24 History sitagliptin phosphate 50 mg tablet 50 mg PO DAILY DIABETES 09/04/19 04/25/24 History (Januvia) duloxetine 60 mg capsule,delayed 60 mg PO BID DEPRESSION 10/19/20 04/25/24 History release pregabalin 100 mg capsule 100 mg PO DAILY PAIN 05/18/21 04/25/24 History sacubitril 49 mg-valsartan 51 mg 1 tab PO BID HEART 02/11/22 04/25/24 History tablet (Entresto) alendronate 70 mg tablet 70 mg PO TU BONES 02/13/22 04/22/24 History aspirin 81 mg tablet,delayed 81 mg PO DAILY@0800 HEART HEALTH 02/15/22 04/25/24 History release dicyclomine 20 mg tablet 20 mg PO TIDCM IRRITABLE BOWELS 09/11/22 04/25/24 History apixaban 5 mg tablet (Eliquis) 5 mg PO BID blood thinner 30 days 09/18/22 04/25/24 Rx #60 tabs benzonatate 100 mg capsule 100 - 200 mg PO Q8H PRN COUGH 05/28/23 Unknown History venlafaxine 75 mg tablet 150 mg PO QHS DEPRESSION 05/29/23 04/24/24 History carvedilol 25 mg tablet (Coreg) 25 mg PO BIDCM HEART 10/24/23 04/25/24 History fluticasone 500 mcg-salmeterol 50 1 ea inhalation BID Asthma 04/25/24 04/25/24 History mcg/dose blistr powdr for inhalation (Advair Diskus) levothyroxine 125 mcg tablet 125 mcg PO DAILY Hypothyroidism 04/25/24 04/25/24 History ascorbic acid (vitamin C) 500 mg 500 mg PO DAILY Supplement 05/01/24 Unknown History tablet calcium carbonate 600 mg-vitamin 1 tab PO DAILY Supplement 05/01/24 Unknown History D3 5 mcg (200 unit) tablet (Calcium 600 + D(3)) cetirizine 10 mg capsule (All Day 10 mg PO DAILY Allergies 05/01/24 Unknown History Allergy (cetirizine)) cholecalciferol (vitamin D3) 50 50 mcg PO DAILY Supplement 05/01/24 Unknown History mcg (2,000 unit) tablet (Vitamin D3) docusate sodium 100 mg capsule 100 mg PO BID Constipation 05/01/24 Unknown History magnesium oxide 400 mg PO DAILY Supplement 05/01/24 Unknown History zinc acetate 50 mg (zinc) capsule 50 mg PO DAILY Supplement 05/01/24 Unknown History (Galzin) acetaminophen 500 mg tablet 1,000 mg (2 x 500 mg) PO Q8 #0 tabs 05/12/24 Unknown Rx Allergy/AdvReac Type Severity Reaction Status Date / Time adhesive Allergy skin Verified 07/21/24 11:32 irritation amlodipine (From Norvasc) Allergy tachycardia Verified 07/21/24 11:32 hydromorphone HCl (From Allergy Itching Verified 07/21/24 11:32 Dilaudid) sulfamethoxazole (From Allergy made my Verified 07/21/24 11:32 Bactrim) cold sore huge trimethoprim (From Bactrim) Allergy made my Verified 07/21/24 11:32 cold sore huge Family History Grandfather Alcoholism Grandmother Myocardial infarction Mother Arthritis Diverticulitis COPD (chronic obstructive pulmonary disease) Afib Thyroid disorder Father Arthritis Diabetes Myocardial infarction Heart disease Ischemic Hypertension Hyperlipidemia Brother Arthritis Aunt Breast cancer Sister Arthritis Thyroid disorder Skin cancer Uncle Diabetes Surgical History History of angioplasty of peripheral vessel (2010) History of left heart catheterization (2011) History of trigger finger Ankle fracture Strangulated ventral hernia History of back surgery Fracture of left femur History of ventral hernia repair History of intestine removal History of arthroscopic knee surgery History of bilateral knee replacement History of cholecystectomy History of carpal tunnel release History of tonsillectomy and adenoidectomy Social History household members: none Smoking Status: Former smoker how long ago did patient quit smokin alcohol intake: never substance use type: does not use what type of physical activity do you participate in: other ROS Constitutional Constitutional: Reports malaise and weakness; Denies anorexia, change in weight, chills, fatigue, fever(s), night sweats or other Eyes Eyes: Denies blurry vision, change in eye color, change in vision, discharge from eye(s), double vision, erythema, eye pain, loss of vision or other ENT HEENT: Denies abnormal hearing, dysphagia, ear pain, epistaxis, headache(s), hearing loss, nasal congestion, nasal discharge, post nasal drip, sinus pressure, sore throat or other Cardiovascular Cardiovascular: Denies chest pain, claudication, dyspnea on exertion, edema, lightheadedness, orthopnea, palpitations, paroxysmal nocturnal dyspnea, rapid heart rate, syncope or other Respiratory/Chest Respiratory/Chest: Denies cough, dyspnea, excessive phlegm production, hemoptysis, productive cough, shortness of breath at rest, shortness of breath with exertion, wheezing or other Genitourinary Genitourinary: Denies burning urination, difficulty urinating, dysuria, hematuria, nocturia, urinary frequency, urinary hesitancy, urinary incontinence, urinary urgency or other Musculoskeletal Musculoskeletal: Reports other Details: Right leg and foot pain ; Denies arthralgias, back pain, joint pain, joint stiffness, joint swelling, myalgias or neck pain Neurologic Neurologic: Reports abnormal gait; Denies abnormal speech, confusion, disequilibrium, dizziness, focal weakness, headache(s), numbness, paresthesias, seizure-like activity, seizures, syncope, tingling, tremor(s) or other Psychiatric Psychiatric: Denies anxiety, depression, homicidal ideation, suicidal ideation or other Endocrine Endocrinology: Denies change in body appearance, cold intolerance, excessive sweating, heat intolerance, polydipsia, polyuria or other Hematologic/Lymphatic Hematologic/Lymphatic: Denies anemia, easy bleeding, easy bruising, lymphadenopathy or other Allergic/Immunologic Allergic/Immunologic: Denies rhinitis, hives, eczemia, asthma or other Vital Signs Vital Signs Vital Signs: 07/21/24 11:25 07/21/24 11:31 07/21/24 12:44 Temperature 97.5 F L Temperature Source Temporal Pulse Rate 75 79 Respiratory Rate 16 16 Respiratory Effort Normal Non-Labored Respiratory Pattern Normal Blood Pressure 73/50 L 87/51 L Blood Pressure Mean 57 63 Pulse Ox 99 99 Oxygen Delivery Method Room Air Room Air 07/21/24 13:00 07/21/24 13:45 07/21/24 14:00 Temperature Temperature Source Pulse Rate 77 79 70 Respiratory Rate 15 14 Respiratory Effort Respiratory Pattern Blood Pressure 80/51 L 89/67 L 86/57 L Blood Pressure Mean 59 76 66 Pulse Ox 100 99 Oxygen Delivery Method Room Air Weight Weight: 94.6 kg Body Mass Index (BMI) 35.8 Physical Exam Const alert, oriented x3 and no apparent distress; Negative for average body habitus or healthy appearing Constitutional Narrative: Obese, upper middle-aged, white female, lying flat in bed, very sleepy but does awaken and interacts answering questions appropriately, appears chronically ill General Appearance: cooperative HEENT normocephalic, head/scalp atraumatic and hearing grossly normal bilaterally; Negative for moist oral mucous membranes HEENT Narrative: Oropharynx is extremely dry appearing, edentulous, Mallampati is 3, no thrush Eyes PERRL and EOMs intact bilaterally; Negative for conjunctivae normal Eyes Narrative: Mild conjunctival pallor bilaterally, no scleral icterus Neck no lymphadenopathy, supple and no JVD Neck Narrative: Trachea midline, no thyroid enlargement Resp normal respiratory effort, no retractions, no use of accessory muscles and clear to auscultation bilaterally Auscultation: Negative for rales, rhonchi or wheezes Cardio regular rate, regular rhythm, S1 normal heart sound, S2 normal heart sound, no murmurs, no rub, no gallops and no clicks GI normal to inspection, nondistended, normoactive bowel sounds, soft to palpation and non-tender Extremity no clubbing, cyanosis or edema Extremity Narrative: Pedal pulses are 2+ Skin no rashes or lesions noted, No skin turgor normal, no jaundice, no petechiae and no mottling Skin Narrative: Tenting noted, skin is pale Neuro oriented x3, moves all extremities and no focal motor deficits Neuro Narrative: Significant generalized weakness noted Speech: speech normal Psych Psych Narrative: Patient is sleepy but interacts appropriately, eye contact is good performed Results Lab / Micro Data 07/21/24 11:56 07/21/24 14:15 Labs: Laboratory Results - last 24 hr 07/21/24 11:56: WBC 7.6, RBC 3.00 L, Hgb 9.0 L, Hct 30.0 L, MCV 100.0 H, MCH 30.0, MCHC 30.0 L, RDW Std Deviation 55.8 H, RDW Coeff of Lencho 15.3 H, Plt Count 132 L, MPV 10.0, Immature Gran % (Auto) 0.400, Neut % (Auto) 75.6 H, Lymph % (Auto) 13.0 L, Lyman % (Auto) 7.6, Eos % (Auto) 3.0, Baso % (Auto) 0.4, Absolute Neuts (auto) 5.7, Absolute Lymphs (auto) 0.99, Nucleated RBC % 0, Sodium 133 L, Potassium 5.0, Chloride 101, Carbon Dioxide 20.0 L, Anion Gap 12, BUN 47 H, Creatinine 2.28 H, Estim Creat Clear Calc 28.17, Est GFR (MDRD) Af Amer 28 L, Est GFR (MDRD) Non-Af 23 L, BUN/Creatinine Ratio 20.6 H, Glucose 83, Lactic Acid 1.1, Calcium 9.1, Total Bilirubin 0.40, AST 35, ALT 26, Alkaline Phosphatase 106, Troponin I High Sens 7, Total Protein 6.2 L, Albumin 2.8 L, Globulin 3.4, Albumin/Globulin Ratio 0.8 L ABG Data ABG results: ABG 07/21/24 12:07 Specimen Type ART Sample Site R Brach pH 7.23 L Bicarbonate Actual 18.1 L Total CO2 19 Base Excess -10 L O2 Saturation 90 L ABG pCO2 43.2 ABG pO2 70 L O2 Delivery Device Room Air Vent Mode Not entered Imaging Radiology Impression Chest X-Ray 07/21/24 12:02 IMPRESSION: Soft tissue density in the upper medial aspect of the right upper lobe with volume loss and elevation of the right hemidiaphragm. 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 Electronically Signed: John Arredondo MD at 12:26 EDT , Assessment & Plan Assessment/Plan (1) Acute kidney injury: (2) Acute hypotension: (3) Metabolic acidosis: (4) Hyponatremia: (5) Anemia: (6) Fracture of fifth metatarsal bone: PLAN: Plan Hypotension -Highly suspect related dehydration however etiology of dehydration is unclear as patient reports he has been eating and drinking well not having diarrhea -Aggressive fluid resuscitation -Check blood and urine cultures -Will start antibiotics empirically-and discontinue when cultures result if negative -Trend blood pressures -Lactate is normal -Hold home antihypertensives ARTIE -Baseline serum creatinine as of most recently has been between 0.5 and 0.8 -Check urine sodium and creatinine--> unfortunately's will have been done after fluids were given the emergency department -Check UA -If renal function does not improve may need further workup -Will hold or renally dose of some of her home medications as I do suspect some of her somnolence is related to decreased clearance -Aggressive IV fluids with LR x 2 L then reassess for further fluid needs -Hold home Entresto Metabolic acidosis -Suspect related to renal dysfunction -IV fluids with LR -Repeat BMP and ABG at 1700 Recent right periprosthetic distal femur fracture -Surgical intervention at [facility] [place]--> IMN and polyethylene exchange performed with patient to be toe-touch weightbearing right lower extremity -Continue outpatient follow-up -PT/OT -Patient has been home with home health Right fifth base metatarsal fracture -Patient toe-touch weightbearing we will continue this weightbearing status -No current intervention needed -Will have podiatry evaluate the patient while she is hospitalized for outpatient recommendations Hyponatremia -Mild -Highly suspect related to hypovolemic hyponatremia and will give IV fluids -Recheck in a.m. History of macrocytic anemia -Current hemoglobin is 9.0 -Highly suspect drop with aggressive fluid resuscitation -Repeat CBC at 1700 and if drop further may need further workup for GI bleed -Continue Eliquis now but if precipitous drop with next lab may need to hold and consult GI History of stroke -Patient with recent embolic stroke 09/2022 -MRI previously done showed abnormality in the left anterior parietal lobe and small acute ischemic stroke in the right cerebellar hemisphere that was suggestive of embolic disease -Continue Eliquis -Continue aspirin -Patient with chronic right-sided weakness Carotid artery stenosis-right ICA -50 to 69% -Continue outpatient follow-up -Continue medical therapy History of COPD -Currently no signs of exacerbation -As needed albuterol -Continue home medications DM-2 -Hold home oral agents -SSI AC -Accu-Cheks as ordered -Cardiac/carb controlled diet Diabetic neuropathy -Hold home Lyrica for now with renal dysfunction and reevaluate for initiation once renal function improves GERD -Continue PPI Essential HTN/HPL -Hold home oral antihypertensive due to hypotension on presentation -Continue home statin History of cardiomyopathy -Stat echo by the emergency department due to her hypotension and her EF was found to be 60% with indeterminant diastolic function -Study was noted to be technically difficult -Continue home medications as appropriate History of cold sores -Continue home daily Valtrex Osteoporosis -Continue home alendronate Chronic pain/neuropathy -Hold home Lyrica due to renal dysfunction and restart when renal function improves -Continue as needed tizanidine Depression/anxiety -Continue home medications once confirmed Obesity -BMI 35.8 -Complicates treatment, prognosis, outcomes -Recommend weight loss DVT prophylaxis -Continue home Eliquis -Will start SCDs if need to discontinue Eliquis CODE STATUS Full code is verified on admission Charges/Coding Visit Charges Inpatient E&M: 42722 Init Hosp L3
[2024-07-21 14:39] LABS: Troponin-I HS 8 pg/mL (3.0-54.0)
[2024-07-21 14:43] LABS: Bacteria 0 SEEN /hpf (None Seen); Mucous, Urine 0 SEEN /hpf (<or=2+); Red Blood Cells-Urine 0 SEEN /hpf (0-5); Squamous Epithelial Cells - UA 0 SEEN /hpf (5-10); White Blood Cells 0 SEEN /hpf (0-5)
[2024-07-21 14:46] LABS: Color, Urine Yellow (Yellow); Glucose, Dipstick Normal (Normal); Ketone-Dipstick Negative (Negative); Leukocyte Esterase-Dipstick Negative /ul (Negative); Nitrite-Dipstick Negative (Negative); Occult Blood-Urine Negative /ul (Negative); Protein-Dipstick Negative (Negative); Urine Bilirubin Dipstick Negative (Negative); Urine Clarity Clear (Clear); Urine Urobilinogen Normal (Normal)
[2024-07-21 14:54] LABS: Creatinine, Urine (random) < 13.00 mg/dL (NO RANGE EST.); Urine Sodium 36 mmol/L (Not Establ.)
[2024-07-21 14:58] LABS: Anion Gap 10 (5-15); BUN 44 mg/dL (7-18); BUN/Creat Ratio 22.7 RATIO (10-20); Chloride 107 mmol/L (98-107); Creatinine, Serum 1.94 mg/dL (0.55-1.02); EST Glomerular Filtration Rate 28 mL/min (>60); Est Glom Filt Rate - Afr Amer 34 mL/min (>60); Estimated Creatinine Clearance 33.11 ml/min; Glucose 87 mg/dL (74-106); Potassium 4.2 mmol/L (3.5-5.1); Sodium Level 135 mmol/L (136-145)
[2024-07-21 16:55] LABS: Hemoglobin 10.4 g/dL (12.0-15.0)
[2024-07-21 17:34] LABS: Allen Test Positive; Base Excess -10 mmol/L (-2 to +2); Blood Gas Specimen Type ART; Mode Not entered; O2 Delivery Device Room Air; PO2 137 mmHG (75-100); SITE L Radial; SO2 99 % (95-99); Total Carbon Dioxide 19 mmol/L; pCO2 43.1 mmHg (35-45); pH 7.23 (7.35-7.45)
[2024-07-21] MEDS: Vancomycin HCl 1,250 MG in 0.9% Normal Saline (250mL Bag) 250 ML 167 MG IV (18:08)
[2024-07-21] MEDS: 0.9% Saline Lock 10 ML Syringe IV (18:08)
[2024-07-21] MEDS: Lactated Ringers 1,000 ML 150 ML IV (18:57)
[2024-07-21] MEDS: Piperacil/Tazobactam 3.375 GM in 0.9% Normal Saline (50mL MB+) 50 ML IV (18:57)
[2024-07-21] MEDS: Budesonide Respules 0.5 MG/2 ML AMPUL.NEB. INHALATION (19:05)
[2024-07-21] MEDS: Albuterol 2.5 MG/3 ML VIAL.NEB. INHALATION (19:05)
--- NOTE | 2024-07-21 19:12 | PCM.RX.CS ---
Consult Antibiotic Management Pharmacy has been consulted to manage selected antibiotic: Vancomycin Type of Intervention Type of Consult: New start Labs Labs: Sodium 135 mmol/L (136-145) L 07/21/24 14:15 Potassium 4.2 mmol/L (3.5-5.1) 07/21/24 14:15 Chloride 107 mmol/L (98-107) 07/21/24 14:15 Carbon Dioxide 18.0 mmol/L (21.0-32.0) L 07/21/24 14:15 Anion Gap 10 (5-15) 07/21/24 14:15 BUN 44 mg/dL (7-18) H 07/21/24 14:15 Creatinine 1.94 mg/dL (0.55-1.02) H 07/21/24 14:15 Est GFR (MDRD) Af Amer 34 mL/min (>60) L 07/21/24 14:15 Est GFR (MDRD) Non-Af 28 mL/min (>60) L 07/21/24 14:15 BUN/Creatinine Ratio 22.7 RATIO (10-20) H 07/21/24 14:15 Glucose 87 mg/dL (74-106) 07/21/24 14:15 Pharmacy Plan for Drug Dosing Pharmacy Plan for Drug Dosing: NEW START IV VANCOMYCIN Consulting Physician: Abundio JAVIER Indication: unknown Goal Trough: 15-20 mg/dl SrCr: 1.94 mg/dL CrCl: 33 ml/min Comments: initial standard dose of 1250mg given 07/21 @ 1808 Vancomycin Dose: will start 1250mg q24h (07/22 @ 1800) and get a trough prior to 3rd total dose Pending Level: 07/23/24 @ 1730 Pharmacy Service will continue to monitor and adjust dosing as required.
--- NOTE | 2024-07-21 19:17 | PCM.HOSP.N ---
Hospitalist Note Repeat ABG shows ongoing metabolic acidosis with serum bicarbonate 18. Will start patient on bicarb drip at 100 cc/h and repeat BMP and ABG in a.m.
[2024-07-21] MEDS: Acetaminophen 325 MG Tablet 650 MG PO (20:36)
[2024-07-21] MEDS: Sodium Bicarbonate 150 MEQ in Dextrose 5%-Water (1000mL Bag) 1,000 ML 100 MEQ IV (22:03)
[2024-07-21] MEDS: Docusate Sodium 100 MG Capsule PO (22:04)
[2024-07-21] MEDS: APIXABAN 5 MG TABLET PO (22:04)
[2024-07-21] MEDS: Venlafaxine HCl 75 MG Tablet 150 MG PO (22:05)
[2024-07-21] MEDS: Pantoprazole Sodium 40 MG Tablet PO (22:05)
[2024-07-21] MEDS: Atorvastatin Calcium 40 MG Tablet PO (22:05)
[2024-07-21] MEDS: DULoxetine Hcl 60 MG Capsule PO (22:07)
[2024-07-22] VITALS (9 sets, daily range): BP systolic 116–198; BP diastolic 60–101; PULSE 84–114; RESP 16–23; TEMP 36.6–37.7; O2SAT 95–99
[2024-07-22 03:43] LABS: Allen Test Positive; Base Excess -3 mmol/L (-2 to +2); Bicarbonate 22.4 mmol/L (22-26); Blood Gas Specimen Type ART; Mode Not entered; O2 Delivery Device Cannula; PO2 111 mmHG (75-100); SITE L Radial; SO2 98 % (95-99); Total Carbon Dioxide 24 mmol/L; pCO2 38.1 mmHg (35-45); pH 7.38 (7.35-7.45)
[2024-07-22 05:51] LABS: Absolute Lymphocyte Count 0.77 X10^3/uL (0.83-4.51); Absolute Neutrophil Count 5.7 X10^3/uL (2.0-7.7); Basophil# 0.01 X10^3/uL; Basophil% 0.1 % (0-1); Eosinophil# 0.04 X10^3/uL; Eosinophils% 0.6 % (0-5); Hematocrit 29.5 % (37-47); Hemoglobin 9.5 g/dL (12.0-15.0); Lymphocyte # 0.77 X10^3/ul (0.83-4.51); Lymphocyte % 11.1 % (19-41); Mean Corp Hgb Conc 32.2 g/dL (32-36); Mean Corpuscular Hgb 30.6 pg (27.0-32.0); Mean Corpuscular Volume 95.2 fL (81-99); Mean Platelet Vol. 9.8 fl (6.2-12.0); Monocyte# 0.42 X10^3/uL; Monocyte% 6.1 % (0-10); NRBC Flagged by Analyzer 0 % (0-5); Neutrophil # 5.69 X10^3/uL (2.7-7.7); Platelet Count 152 K/mm3 (150-450); RBC Distribution Width CV 15.2 % (11.6-14.6); RBC Distribution Width SD 52.9 fl (35.1-43.9); White Blood Count 6.9 K/mm3 (4.4-11.0)
[2024-07-22] MEDS: Levothyroxine 125 MCG Tablet PO (05:57)
[2024-07-22] MEDS: Piperacil/Tazobactam 3.375 GM in 0.9% Normal Saline (50mL MB+) 50 ML IV ×3 (05:57→21:46)
[2024-07-22] MEDS: 0.9% Saline Lock 10 ML Syringe IV ×2 (05:58→12:19)
[2024-07-22 06:28] LABS: ALB/GLOB Ratio 0.8 RATIO (0.9-2.4); AST(SGOT) 18 U/L (15-37); Alanine Aminotransfer ALT/SGPT 19 U/L (13-56); Albumin, Serum 2.7 g/dL (3.2-5.0); Alkaline Phosphatase 112 U/L (45-117); Anion Gap 7 (5-15); BUN 31 mg/dL (7-18); BUN/Creat Ratio 26.5 RATIO (10-20); Calcium,Total 8.7 mg/dL (8.5-10.1); Chloride 110 mmol/L (98-107); Creatinine, Serum 1.17 mg/dL (0.55-1.02); EST Glomerular Filtration Rate 50 mL/min (>60); Est Glom Filt Rate - Afr Amer 60 mL/min (>60); Globulin 3.5 g/dL (2.2-4.2); Glucose 163 mg/dL (74-106); Magnesium 1.8 mg/dL (1.6-2.6); Phosphorus 2.7 mg/dL (2.5-4.9); Potassium 3.6 mmol/L (3.5-5.1); Protein, Total 6.2 g/dL (6.4-8.2); Sodium Level 140 mmol/L (136-145); Thyroid Stim Hormone (TSH) 0.232 uIU/mL (0.358-3.740)
[2024-07-22 07:04] LABS: Bedside Glucose 41 mg/dL (74-106)
[2024-07-22 07:04] LABS: Bedside Glucose 77 mg/dL (74-106)
[2024-07-22] MEDS: Albuterol 2.5 MG/3 ML VIAL.NEB. INHALATION ×2 (07:14→13:44)
[2024-07-22] MEDS: Budesonide Respules 0.5 MG/2 ML AMPUL.NEB. INHALATION (07:18)
[2024-07-22] MEDS: Acetaminophen 325 MG Tablet 650 MG PO (08:34)
[2024-07-22] MEDS: Magnesium Chloride 64 MG Delay Rel.Tablet 128 MG PO (08:35)
[2024-07-22] MEDS: Aspirin E.C. 81 MG Tablet PO (08:35)
[2024-07-22] MEDS: Dicyclomine 10 MG Capsule 20 MG PO ×3 (08:35→17:29)
[2024-07-22] MEDS: DULoxetine Hcl 60 MG Capsule PO (08:35)
[2024-07-22] MEDS: Pantoprazole Sodium 40 MG Tablet PO (08:36)
[2024-07-22] MEDS: Calcium Carb/Vitamin D 1 TABLET Tablet PO (08:36)
[2024-07-22] MEDS: Cholecalciferol (VIT D3) 25 MCG TABLET (1,000 UNITS) 50 MCG PO (08:36)
[2024-07-22] MEDS: Loratadine 10 MG Tablet PO (08:36)
[2024-07-22] MEDS: Ascorbic Acid 500 MG Tablet PO (08:36)
[2024-07-22] MEDS: APIXABAN 5 MG TABLET PO (08:37)
[2024-07-22 08:46] LABS: T4 Free Direct 0.87 ng/dL (0.76-1.46)
[2024-07-22 08:50] LABS: Bedside Glucose 144 mg/dL (74-106)
--- NOTE | 2024-07-22 09:47 | CASEMGMT ---
[facility] is familiar with patient from past admissions. Patient has [employer] [employer] and her rehabilitation caseworker is Sreekanth Rivero. [facility] called [facility] and spoke with Lyle on the coverage line. Patient has [facility], nursing evaluation every 60 days and personal care from aides 16 hours a week. Patient also gets 5 hot meals a week from [employer]. Zulema June [employer]OCIATE [employer]EL[employer]OL[employer]
[2024-07-22] MEDS: FLU VACC 2024-25(6MOS UP)/PF 45 MCG/0.5 ML SYRINGE IM (10:54)
--- NOTE | 2024-07-22 11:20 | CASEMGMT ---
DRE DELGADILLO Assessment: Face to Face with pt for initial transition planning/care coordination assessment. DRE DELGADILLO introduced self and role at [facility], pt voices understanding and consents to assessment. Pt is A&O x4 and answers all questions appropriately at this time. Pt lying in bed in no distress. Care providers, pharmacy, and demographics verified/updated. Admitting Dx: ARTIE/Hypotension Strata Score: 3 PCP: Brian Specialists: Chuck, combat control; Raymond, ADILSON; SANDY Reddy Preferred Pharmacy: [facility] Insurance: [facility] Dual Complete; [facility]. Prescription Benefit: yes LNOK: Sister Living Arrangements: Pt lives alone in a 1 story apt with zero steps to enter. Transportation: Pt reports she does not drive and does not have any transportation home, will need transportation arranged. Pt reports Home Health Aide sometimes able to take her to appointments and gets her groceries. DME: Rollator, Wheelchair, shower bench, glucometer and supplies. HHC/SNF: Previously in [facility] and [place], currently active with [facility]. Pt is NWB status. Therapy ordered. Pt states she would like to return home with [facility], if therapy recommends SNF pt would like TCU. Pt refusing to go anywhere else but TCU if recommended. Pt states no further concerns/needs. CM to follow. Advised pt to ask CM if any further question/concerns/needs arise, voices understanding. Pt Goal: Home, continue with [facility]. Plan: Home with [facility], follow therapy for recommendations. Will need transportation arrangements to go home. DRE Brooks CM
[2024-07-22 11:31] LABS: Bedside Glucose 143 mg/dL (74-106)
--- NOTE | 2024-07-22 11:33 | PCM.RX.CS ---
Consult Antibiotic Management Pharmacy has been consulted to manage selected antibiotic: Vancomycin Type of Intervention Type of Consult: Follow-up Labs Labs: Sodium 140 mmol/L (136-145) 07/22/24 05:16 Potassium 3.6 mmol/L (3.5-5.1) 07/22/24 05:16 Chloride 110 mmol/L (98-107) H 07/22/24 05:16 Carbon Dioxide 23.0 mmol/L (21.0-32.0) 07/22/24 05:16 Anion Gap 7 (5-15) 07/22/24 05:16 BUN 31 mg/dL (7-18) H 07/22/24 05:16 Creatinine 1.17 mg/dL (0.55-1.02) H 07/22/24 05:16 Est GFR (MDRD) Af Amer 60 mL/min (>60) 07/22/24 05:16 Est GFR (MDRD) Non-Af 50 mL/min (>60) L 07/22/24 05:16 BUN/Creatinine Ratio 26.5 RATIO (10-20) H 07/22/24 05:16 Glucose 163 mg/dL (74-106) H 07/22/24 05:16 Microbiology Microbiology: Microbiology 07/21/24 14:30 Urine Catheter - Catheter Urine Culture - Preliminary Culture exhibits no growth. Pharmacy Plan for Drug Dosing Pharmacy Plan for Drug Dosing: DAILY ASSESSMENT Current Vancomycin Dose: 1250MG Q24 Number of Doses Received: 1 Current Renal Function: SCR 1.17 MG/DL, CRCL 55 ML/MIN Renal Function Trend: IMPROVED Lab/Micro: BLOOD CX PENDING Any Change in Vanc Plan: YES, DUE TO IMPROVED RENAL FUNCTION, WILL CHANGE REGIMEN TO 1000MG Q12 STARTING NOW (LAST DOSE MORE THAN 12 HOURS AGO AT TIME OF DAILY REVIEW). WILL ADJUST TROUGH OUT TO BEFORE 5TH TOTAL DOSE TO ENSURE STEADY STATE. Pending Level: 07/23/24 @ 2300 Pharmacy Service will continue to monitor and adjust dosing as required.
[2024-07-22] MEDS: Vancomycin IV 1,000 MG/200 ML BAG 200 MG IV ×2 (12:19→23:31)
--- NOTE | 2024-07-22 12:35 | CON.PCM_ITS ---
Assessment & Plan Assessment/Plan (1) Nondisplaced fracture of fifth right metatarsal bone: QUALIFIERS: Encounter type: initial encounter Fracture type: c losed Qualified Code(s): S92.354A - Nondisplaced fracture of fifth metatarsal bone, right foot, initial encounter for closed fracture PLAN: Exam performed. Patient currently maintaining nonweightbearing to right lower extremity secondary to femoral fracture. Once patient is cleared to weight-bear by Orthopedics for right femoral fracture patient can weight-bear in a surgical shoe to right heel assisted by walker. At this time nonweightbearing right lower extremity will be sufficient for healing until there is a transition weightbearing status pending progress for right femoral fracture. Will plan to follow-up patient in the outpatient setting in the next 1 to 2 weeks to ensure coordination of care. HPI Consult Data Date of Consult: 07/22/24 HPI Narrative HPI Narrative: BILL CHOI, is a 63 F who presents after suffering a fall in her home. Patient underwent right femoral ORIF approximately 4 weeks prior. She spent 3- 1/2 weeks in transitional care unit. She was ultimately discharged home. Patient suffered a fall when she was attempting to transfer presented to the ED and noted to have a right fifth metatarsal base fracture. Patient denies any fever chills nausea vomit chest pain calf pain shortness of breath at this time. Patient has pain localized to right lateral foot. Patient has been treated with nonweightbearing to right lower extremity. FORMERLY [facility] Medical History Right femoral fracture Depression Hypothyroidism History of MRSA infection of lungs Delirium Debility Falls Metabolic encephalopathy Complicated urinary tract infection Acute hypotension Brain TIA Embolic stroke Normocytic anemia History of stroke Diabetes mellitus Hyperlipidemia Hypertension Stroke/cerebrovascular accident Cardiomyopathy Chronic systolic (congestive) heart failure Non-ischemic cardiomyopathy History of CVA (cerebrovascular accident) (2018) Flash pulmonary edema (01/16/21) Peripheral vascular disease History of depression Atherosclerosis of coronary artery without angina pectoris CKD (chronic kidney disease) stage 3, GFR 30-59 ml/min Asthma exacerbation Pulmonary edema Acute respiratory failure with hypoxia Trigeminal trophic syndrome Stomach ulcer Hypothyroidism Osteopenia Osteoarthritis Kidney disease Hyperlipidemia Essential hypertension Chronic headaches GI problem Gallstones History of emotional problems Type 2 diabetes mellitus Carpal tunnel syndrome Bone fracture Asthma Anemia Seasonal allergies Herpes simplex GERD (gastroesophageal reflux disease) Allergic rhinitis Irritable bowel syndrome Gait difficulty Right hemiparesis Debility Osteoporosis Normochromic normocytic anemia Secondary adrenal insufficiency ACTH deficiency Neuropathy Falls Hypotension Carotid artery stenosis Bilateral leg weakness History of ischemic colitis Chronic constipation with suspected IBS Obesity Hx of diverticulitis of colon History of Clostridium difficile infection Home Medications ?Medication ?Instructions ?Recorded ?Last Taken ?Type pantoprazole 40 mg tablet,delayed 40 mg PO BID GERD 03/29/19 10/24/23 History release amitriptyline 25 mg tablet 25 mg PO QHS MOOD 08/10/19 07/20/24 History rosuvastatin 20 mg tablet (Crestor) 20 mg PO QHS CHOLESTEROL 08/25/19 07/20/24 History sitagliptin phosphate 50 mg tablet 50 mg PO DAILY DIABETES 09/04/19 07/20/24 History (Januvia) duloxetine 60 mg capsule,delayed 60 mg PO BID DEPRESSION 10/19/20 04/25/24 History release pregabalin 100 mg capsule 100 mg PO DAILY PAIN 05/18/21 07/20/24 History sacubitril 49 mg-valsartan 51 mg 1 tab PO BID HEART 02/11/22 07/20/24 History tablet (Entresto) alendronate 70 mg tablet 70 mg PO TU BONES 02/13/22 07/15/24 History aspirin 81 mg tablet,delayed 81 mg PO DAILY@0800 [facility] 02/15/22 04/25/24 History release dicyclomine 20 mg tablet 20 mg PO TIDCM IRRITABLE BOWELS 09/11/22 07/20/24 History apixaban 5 mg tablet (Eliquis) 5 mg PO BID blood thinner 30 days 09/18/22 07/20/24 Rx #60 tabs benzonatate 100 mg capsule 100 - 200 mg PO Q8H PRN COUGH 05/28/23 Unknown History venlafaxine 75 mg tablet 150 mg PO QHS DEPRESSION 05/29/23 07/20/24 History carvedilol 25 mg tablet (Coreg) 25 mg PO BIDCM HEART 10/24/23 07/20/24 History fluticasone 500 mcg-salmeterol 50 1 ea inhalation BID Asthma 04/25/24 04/25/24 History mcg/dose blistr powdr for inhalation (Advair Diskus) levothyroxine 125 mcg tablet 125 mcg PO DAILY Hypothyroidism 04/25/24 07/20/24 History ascorbic acid (vitamin C) 500 mg 500 mg PO DAILY Supplement 05/01/24 Unknown History tablet calcium carbonate 600 mg-vitamin 1 tab PO DAILY Supplement 05/01/24 Unknown History D3 5 mcg (200 unit) tablet (Calcium 600 + D(3)) cetirizine 10 mg capsule (All Day 10 mg PO DAILY Allergies 05/01/24 Unknown History Allergy (cetirizine)) cholecalciferol (vitamin D3) 50 50 mcg PO DAILY Supplement 05/01/24 Unknown History mcg (2,000 unit) tablet (Vitamin D3) docusate sodium 100 mg capsule 100 mg PO BID Constipation 05/01/24 Unknown History magnesium oxide 400 mg PO DAILY Supplement 05/01/24 Unknown History zinc acetate 50 mg (zinc) capsule 50 mg PO DAILY Supplement 05/01/24 Unknown History (Galzin) acetaminophen 500 mg tablet 1,000 mg (2 x 500 mg) PO Q8 #0 tabs 05/12/24 Unknown Rx hydrocodone 7.5 mg-acetaminophen 1 tab PO Q8H PRN pain 07/21/24 Unknown History 325 mg tablet Allergy/AdvReac Type Severity Reaction Status Date / Time adhesive Allergy skin Verified 07/21/24 11:32 irritation amlodipine (From Norvasc) Allergy tachycardia Verified 07/21/24 11:32 hydromorphone HCl (From Allergy Itching Verified 07/21/24 11:32 Dilaudid) sulfamethoxazole (From Allergy made my Verified 07/21/24 11:32 Bactrim) cold sore huge trimethoprim (From Bactrim) Allergy made my Verified 07/21/24 11:32 cold sore huge Family History Grandfather Alcoholism Grandmother Myocardial infarction Mother Arthritis Diverticulitis COPD (chronic obstructive pulmonary disease) Afib Thyroid disorder Father Arthritis Diabetes Myocardial infarction Heart disease Ischemic Hypertension Hyperlipidemia Brother Arthritis Aunt Breast cancer Sister Arthritis Thyroid disorder Skin cancer Uncle Diabetes Surgical History History of angioplasty of peripheral vessel (2010) History of left heart catheterization (2011) History of trigger finger Ankle fracture Strangulated ventral hernia History of back surgery Fracture of left femur History of ventral hernia repair History of intestine removal History of arthroscopic knee surgery History of bilateral knee replacement History of cholecystectomy History of carpal tunnel release History of tonsillectomy and adenoidectomy Social History household members: none Smoking Status: Former smoker how long ago did patient quit smokin alcohol intake: never substance use type: does not use what type of physical activity do you participate in: other ROS Constitutional Constitutional: Denies change in weight, chills or headache(s) Eyes Eyes: Denies acute decrease in peripheral vision, change in eye color or change in vision ENT HEENT: Denies bleeding gums, change in voice or epistaxis Cardiovascular Cardiovascular: Denies abdominal edema, abdominal pain or chest pain at rest Respiratory/Chest Respiratory/Chest: Denies change in phlegm color, chest congestion or dyspnea Gastrointestinal Gastrointestinal: Denies belching, bloating or constipation Physical Exam Narrative Vascular: Dorsalis pedis posterior tibial pulse palpable to bilateral feet. Neurologic: Light touch protective sensation intact bilateral feet. Dermatologic: No open wounds noted to bilateral feet. Some swelling and ecchymosis noted to the right lateral foot. Musculoskeletal: Focal pain to right fifth metatarsal base. No gross deformity noted. Some atrophic changes noted to right lower extremity secondary to disuse. Const alert and oriented x3 Lab / Micro Data 07/22/24 05:16 07/22/24 05:16 Labs: Laboratory Results - last 24 hr 07/21/24 11:56: Sodium 133 L, Potassium 5.0, Chloride 101, Carbon Dioxide 20.0 L , Anion Gap 12, BUN 47 H, Creatinine 2.28 H, Estim Creat Clear Calc 28.17, Est GFR (MDRD) Af Amer 28 L, Est GFR (MDRD) Non-Af 23 L, BUN/Creatinine Ratio 20.6 H , Glucose 83, Lactic Acid 1.1, Calcium 9.1, Total Bilirubin 0.40, AST 35, ALT 26, Alkaline Phosphatase 106, Troponin I High Sens 7, Total Protein 6.2 L, A lbumin 2.8 L, Globulin 3.4, Albumin/Globulin Ratio 0.8 L 07/21/24 14:15: Sodium 135 L, Potassium 4.2, Chloride 107, Carbon Dioxide 18.0 L , Anion Gap 10, BUN 44 H, Creatinine 1.94 H, Estim Creat Clear Calc 33.11, Est GFR (MDRD) Af Amer 34 L, Est GFR (MDRD) Non-Af 28 L, BUN/Creatinine Ratio 22.7 H , Glucose 87, Calcium 9.0, Troponin I High Sens 8 07/21/24 14:30: Urine Color Yellow, Urine Clarity Clear, Urine pH 6.0, Ur Specific [place] 1.010, Urine Protein Negative, Urine Glucose (UA) Normal, Urine Ketones Negative, Urine Occult Blood Negative, Urine Nitrite Negative, Urine Bilirubin Negative, Urine Urobilinogen Normal, Ur Leukocyte Esterase Negative, Urine RBC 0 SEEN, Urine WBC 0 SEEN, Ur Squamous Epith Cells 0 SEEN, Urine Bacteria 0 SEEN, Urine Mucus 0 SEEN, Ur Random Sodium 36, Urine Creatinine < 13.00 07/21/24 16:44: Hgb 10.4 L 07/21/24 17:30: POC Glucose 41 L* 07/21/24 17:44: POC Glucose 77 07/22/24 05:15: Free T4 0.87 07/22/24 05:16: WBC 6.9, RBC 3.10 L, Hgb 9.5 L, Hct 29.5 L, MCV 95.2, MCH 30.6, MCHC 32.2 D, RDW Std Deviation 52.9 H, RDW Coeff of Lencho 15.2 H, Plt Count 152, MPV 9.8, Immature Gran % (Auto) 0.100, Neut % (Auto) 82.0 H, Lymph % (Auto) 11.1 L, [place] % (Auto) 6.1, Eos % (Auto) 0.6, Baso % (Auto) 0.1, Absolute Neuts (auto) 5.7, Absolute Lymphs (auto) 0.77 L, Nucleated RBC % 0, Sodium 140, Potassium 3.6, Chloride 110 H, Carbon Dioxide 23.0, Anion Gap 7, BUN 31 H, Creatinine 1.17 H, Estim Creat Clear Calc 55.10, Est GFR (MDRD) Af Amer 60, Est GFR (MDRD) Non- Af 50 L, BUN/Creatinine Ratio 26.5 H, Glucose 163 H, Calcium 8.7, Phosphorus 2.7, Magnesium 1.8, Total Bilirubin 0.40, AST 18, ALT 19, Alkaline Phosphatase 112, Total Protein 6.2 L, Albumin 2.7 L, Globulin 3.5, Albumin/Globulin Ratio 0.8 L, TSH 0.232 L 07/22/24 08:25: POC Glucose 144 H 07/22/24 10:54: POC Glucose 143 H Micro: Microbiology 07/21/24 14:30 Urine Catheter - Catheter Urine Culture - Preliminary Culture exhibits no growth. ABG Data ABG results: ABG 07/21/24 07/22/24 17:31 03:39 Specimen Type ART ART Sample Site L Radial L Radial pH 7.23 L 7.38 Bicarbonate Actual 18.0 L 22.4 Total CO2 19 24 Base Excess -10 L -3 L O2 Saturation 99 98 O2 % 2.0 ABG pCO2 43.1 38.1 ABG pO2 137 H 111 H Juan Test Positive Positive O2 Delivery Device Room Air Cannula Vent Mode Not entered Not entered Imaging Radiology Impression Echocardiogram 07/21/24 13:22 Interpretation Summary The study was technically difficult. The left ventricular ejection fraction is 60 %. Ordering Physician: Addy Choi Performed By: Gabriel Akins RCS
--- NOTE | 2024-07-22 12:43 | PN_ITS ---
Subjective Subjective Patient seen and examined. She was admitted with a complaint of dizziness and was found to be hypotensive and also had ARTIE. She says she feels much better today. She does not feel dizzy or lightheaded anymore. She denies any chest pain, palpitations, dizziness, nausea vomiting or any other symptoms. Review of systems otherwise negative. Her creatinine has trended downwards. Objective Data Objective Data Vital Signs: Vital Signs Temp Pulse Resp BP Pulse Ox O2 Del Method O2 Flow Rate 97.9 F 105 H 18 141/73 H 99 Nasal Cannula 2 07/22/24 08:28 07/22/24 08:28 07/22/24 08:28 07/22/24 08:28 07/22/24 08:28 07/22/24 08:50 07/22/24 08:50 FiO2 100 07/22/24 08:50 Oxygen Flow Rate (L/min) 2 Oxygen Delivery Method Nasal Cannula Weight: 202 lb 6.15 oz Body Mass Index (BMI) 33.7 Intake & Output: Intake and Output for Last 24 Hours 07/20/24 07/21/24 07/22/24 23:59 23:59 23:59 Intake Total 1377.5 / 1547.5 1770 / 1770 Output Total 1050 / 2450 2600 / 2600 Balance 327.5 / -902.5 -830 / -830 Lab / Micro Data 07/22/24 05:16 07/22/24 05:16 Labs: Laboratory Results - last 24 hr 07/21/24 14:15: Sodium 135 L, Potassium 4.2, Chloride 107, Carbon Dioxide 18.0 L , Anion Gap 10, BUN 44 H, Creatinine 1.94 H, Estim Creat Clear Calc 33.11, Est GFR (MDRD) Af Amer 34 L, Est GFR (MDRD) Non-Af 28 L, BUN/Creatinine Ratio 22.7 H , Glucose 87, Calcium 9.0, Troponin I High Sens 8 07/21/24 14:30: Urine Color Yellow, Urine Clarity Clear, Urine pH 6.0, Ur Specific [place] 1.010, Urine Protein Negative, Urine Glucose (UA) Normal, Urine Ketones Negative, Urine Occult Blood Negative, Urine Nitrite Negative, Urine Bilirubin Negative, Urine Urobilinogen Normal, Ur Leukocyte Esterase Negative, Urine RBC 0 SEEN, Urine WBC 0 SEEN, Ur Squamous Epith Cells 0 SEEN, Urine Bacteria 0 SEEN, Urine Mucus 0 SEEN, Ur Random Sodium 36, Urine Creatinine < 13.00 07/21/24 16:44: Hgb 10.4 L 07/21/24 17:30: POC Glucose 41 L* 07/21/24 17:44: POC Glucose 77 07/22/24 05:15: Free T4 0.87 07/22/24 05:16: WBC 6.9, RBC 3.10 L, Hgb 9.5 L, Hct 29.5 L, MCV 95.2, MCH 30.6, MCHC 32.2 D, RDW Std Deviation 52.9 H, RDW Coeff of Lencho 15.2 H, Plt Count 152, MPV 9.8, Immature Gran % (Auto) 0.100, Neut % (Auto) 82.0 H, Lymph % (Auto) 11.1 L, [place] % (Auto) 6.1, Eos % (Auto) 0.6, Baso % (Auto) 0.1, Absolute Neuts (auto) 5.7, Absolute Lymphs (auto) 0.77 L, Nucleated RBC % 0, Sodium 140, Potassium 3.6, Chloride 110 H, Carbon Dioxide 23.0, Anion Gap 7, BUN 31 H, Creatinine 1.17 H, Estim Creat Clear Calc 55.10, Est GFR (MDRD) Af Amer 60, Est GFR (MDRD) Non- Af 50 L, BUN/Creatinine Ratio 26.5 H, Glucose 163 H, Calcium 8.7, Phosphorus 2.7, Magnesium 1.8, Total Bilirubin 0.40, AST 18, ALT 19, Alkaline Phosphatase 112, Total Protein 6.2 L, Albumin 2.7 L, Globulin 3.5, Albumin/Globulin Ratio 0.8 L, TSH 0.232 L 07/22/24 08:25: POC Glucose 144 H 07/22/24 10:54: POC Glucose 143 H Micro: Microbiology 07/21/24 14:30 Urine Catheter - Catheter Urine Culture - Preliminary Culture exhibits no growth. ABG Data ABG results: ABG 07/21/24 07/22/24 17:31 03:39 Specimen Type ART ART Sample Site L Radial L Radial pH 7.23 L 7.38 Bicarbonate Actual 18.0 L 22.4 Total CO2 19 24 Base Excess -10 L -3 L O2 Saturation 99 98 O2 % 2.0 ABG pCO2 43.1 38.1 ABG pO2 137 H 111 H Juan Test Positive Positive O2 Delivery Device Room Air Cannula Vent Mode Not entered Not entered Radiography Diagnostic Testing: Radiology Impression Echocardiogram 07/21/24 13:22 Interpretation Summary The study was technically difficult. The left ventricular ejection fraction is 60 %. Ordering Physician: Addy Choi Performed By: Gabriel Akins RCS Physical Exam Const alert, oriented x3 and no apparent distress Constitutional Narrative: obese HEENT normocephalic, head/scalp atraumatic and moist oral mucous membranes Eyes PERRL and EOMs intact bilaterally Neck no lymphadenopathy and supple Lymph Lymphatic: no lymphadenopathy noted and no lymphedema noted Resp Resp Narrative: mildly diminished breath sounds bibasally, no wheezes or crackles. on 2L of oxygen by nasal canula Cardio regular rate, regular rhythm, S1 normal heart sound, S2 normal heart sound and no murmurs GI normal to inspection, nondistended, normoactive bowel sounds, soft to palpation, non-tender and non-distended Extremity normal capillary refill, no clubbing, cyanosis or edema and no calf tenderness General Extremity: no tenderness to palpation of joints or extremities Skin General Skin Exam: no breakdown Neuro CN's II-XII intact bilaterally, no focal motor deficits and no sensory deficits noted Motor Exam: strength 5/5 throughout and general weakness Psych thought process normal and cooperative Appearance: appropriate Assessment & Plan Assessment/Plan (1) Hyponatremia: (2) Metabolic acidosis: (3) Acute kidney injury: PLAN: Plan #Hypotension * Likely due to dehydration from decreased intake as well as a still taking the blood pressure medications. * Patient was hydrated with IV fluids and hypotension is now resolved. She was started on broad-spectrum antibiotics for possible septic shock. * BP meds remain on hold. * DC IV fluids and encourage oral hydration. #ARTIE: * Creatinine was 2.28 on admission has trended down to 1.17. * Continue gentle hydration with IV fluids. BP meds on hold. * Entresto also on hold. * Continue trending creatinine. #Metabolic acidosis: * Resolved. Was thought to be due to ARTIE. * Patient placed on bicarb drip. Will DC this. #History of recent right prosthetic distal femoral fracture * Had surgical intervention at [facility]. PT OT on board. For precautions. #Right fifth toe metatarsal fracture: Currently toe-touch weightbearing. No active intervention needed. PT OT on board. Fall precautions. #Hyponatremia: Resolved #History of stroke: Had an embolic stroke in September 2022. On Eliquis and aspirin. Has residual right-sided weakness. #History of right internal carotid artery stenosis: Has known stenosis of 50 to 69%. Follow-up on outpatient basis. On aspirin and high intensity statin #Type 2 diabetes mellitus: On insulin sliding scale. Checks ACHS. Oral BP meds held due to hypotension and ARTIE. #GERD: on PPI #Benign essential hypertension: BP meds held due to hypotension and AK. On carvedilol and Entresto at home. #HItory of cardiomyopathy * has known EF of 60% * on entresto which is on hold due to hypotension * #History of cold sores: on oral valtrex #Hypothyroidism: TSH was 0.232 but free T4 is within normal range at 0.87. Continue Synthroid. # History of chronic pain with neuropathy: Lyrica held due to renal dysfunction. On tizanidine. #Depression and anxiety: On Cymbalta and venlafaxine DVT prophylaxis: eliquis Charges/Coding Visit Charges Inpatient E&M: 57747 Subs Hosp L2
[2024-07-22 17:59] LABS: Bedside Glucose 124 mg/dL (74-106)
[2024-07-22] MEDS: Ondansetron 4 MG/2 ML Vial IV (20:29)
[2024-07-22] MEDS: hydrALAZINE 20 MG/ML Vial 10 MG IV (21:43)
[2024-07-22] MEDS: proCHLORPERazine 10 MG/2 ML Vial IV (22:33)
[2024-07-23] VITALS (12 sets, daily range): BP systolic 111–185; BP diastolic 66–111; PULSE 88–110; RESP 16–18; TEMP 36.2–37.2; O2SAT 95–98
[2024-07-23] MEDS: Carvedilol 25 MG Tablet PO ×3 (00:14→16:28)
[2024-07-23] MEDS: hydrALAZINE 20 MG/ML Vial 10 MG IV ×2 (03:07→09:34)
[2024-07-23] MEDS: Dicyclomine 10 MG Capsule 20 MG PO ×4 (04:16→16:28)
[2024-07-23 05:41] LABS: Absolute Lymphocyte Count 0.95 X10^3/uL (0.83-4.51); Absolute Neutrophil Count 7.4 X10^3/uL (2.0-7.7); Basophil# 0.04 X10^3/uL; Basophil% 0.4 % (0-1); Eosinophil# 0.01 X10^3/uL; Eosinophils% 0.1 % (0-5); Hematocrit 33.4 % (37-47); Hemoglobin 10.9 g/dL (12.0-15.0); Lymphocyte # 0.95 X10^3/ul (0.83-4.51); Lymphocyte % 10.6 % (19-41); Mean Corp Hgb Conc 32.6 g/dL (32-36); Mean Corpuscular Hgb 29.9 pg (27.0-32.0); Mean Corpuscular Volume 91.8 fL (81-99); Monocyte# 0.47 X10^3/uL; Monocyte% 5.3 % (0-10); NRBC Flagged by Analyzer 0 % (0-5); Neutrophil # 7.36 X10^3/uL (2.7-7.7); Neutrophil % 82.5 % (47-70); Platelet Count 160 K/mm3 (150-450); RBC Distribution Width CV 14.8 % (11.6-14.6); RBC Distribution Width SD 49.7 fl (35.1-43.9); Red Blood Count 3.64 M/mm3 (4.2-5.4); White Blood Count 8.9 K/mm3 (4.4-11.0)
[2024-07-23] MEDS: Piperacil/Tazobactam 3.375 GM in 0.9% Normal Saline (50mL MB+) 50 ML IV ×3 (05:56→22:26)
[2024-07-23 06:04] LABS: Anion Gap 7 (5-15); BUN 12 mg/dL (7-18); BUN/Creat Ratio 16.1 RATIO (10-20); Calcium,Total 8.9 mg/dL (8.5-10.1); Chloride 104 mmol/L (98-107); Creatinine, Serum 0.74 mg/dL (0.55-1.02); EST Glomerular Filtration Rate 84 mL/min (>60); Est Glom Filt Rate - Afr Amer 101 mL/min (>60); Estimated Creatinine Clearance 87.12 ml/min; Glucose 189 mg/dL (74-106); Potassium 3.2 mmol/L (3.5-5.1); Sodium Level 136 mmol/L (136-145)
--- NOTE | 2024-07-23 06:32 | PCM.HOSP.N ---
Hospitalist Note Patient with abdominal pain following BM, rating it generalized and severe. Administered bentyl in case cramping without effect. Will obtain KUB and dose with low dose morphine x 1.
--- NOTE | 2024-07-23 06:35 | RAD_ITS ---
INDICATION: Abdominal pain EXAMINATION/TECHNIQUE: X-RAY - XR Abdomen 2 views COMPARISON: No relevant prior comparison study available FINDINGS: BOWEL GAS PATTERN: Non-obstructive. No bowel or stomach distention. FREE AIR: Not assessed on a single supine view. ORGANOMEGALY: Not seen. CALCIFICATIONS: No abnormal calcifications observed. LOWER CHEST: No acute pathology. BONES AND SOFT TISSUES: There are postsurgical changes of the lower lumbar spine. RAD/Abdomen Single View (Portable) IMPRESSION: Non-obstructive bowel gas pattern. Electronically Signed: Lexii Lopes MD at 10:16 EDT ,
[2024-07-23] MEDS: proCHLORPERazine 10 MG/2 ML Vial IV ×2 (06:50→11:24)
[2024-07-23] MEDS: Morphine 2 MG/ML Syringe IV (06:50)
[2024-07-23] MEDS: APIXABAN 5 MG TABLET PO ×2 (07:39→22:30)
[2024-07-23] MEDS: Pantoprazole Sodium 40 MG Tablet PO ×2 (07:39→22:32)
[2024-07-23] MEDS: Aspirin E.C. 81 MG Tablet PO (07:39)
[2024-07-23 08:01] LABS: Bedside Glucose 166 mg/dL (74-106)
[2024-07-23] MEDS: 0.9% Saline Lock 10 ML Syringe IV ×3 (09:34→22:35)
[2024-07-23] MEDS: Ondansetron 4 MG/2 ML Vial IV (09:34)
[2024-07-23] MEDS: SACUBITRIL/VALSARTAN 49-51 MG TABLET 1 EACH PO ×2 (10:31→22:31)
[2024-07-23] MEDS: Acetaminophen 325 MG Tablet 650 MG PO (11:24)
[2024-07-23] MEDS: Vancomycin IV 1,000 MG/200 ML BAG 200 MG IV (11:25)
[2024-07-23 11:50] LABS: Bedside Glucose 188 mg/dL (74-106)
[2024-07-23] MEDS: cloNIDine HCl 0.2 MG Tablet PO (11:57)
[2024-07-23] MEDS: Potassium Chloride 20mEq/100mL 20 MEQ/100 ML IV.SOLN. 100 MEQ IV BOLUS ×2 (11:57→13:59)
--- NOTE | 2024-07-23 13:20 | PN_ITS ---
Subjective Subjective Patient seen and examined. She had no active complaints. She denied any fever, chills, chest pain, palpitations, dizziness, nausea, vomiting or any other systems. Review of systems is otherwise negative. Her BP remains elevated in the 170s systolic. Objective Data Objective Data Vital Signs: Vital Signs Temp Pulse Resp BP Pulse Ox O2 Del Method O2 Flow Rate 99.0 F 100 18 172/97 H 95 Room Air 2 07/23/24 09:07/23/24 11:07/23/24 09:07/23/24 11:07/23/24 09:07/23/24 09:31 07/22/24 08:50 FiO2 100 07/22/24 08:50 Oxygen Flow Rate (L/min) 2 Oxygen Delivery Method Room Air Weight: 202 lb 6.15 oz Body Mass Index (BMI) 33.7 Intake & Output: Intake and Output for Last 24 Hours 07/21/24 07/22/24 07/23/24 23:59 23:59 23:59 Intake Total 1377.5 / 1547.5 2020 / 2080 620 / 620 Output Total 1050 / 2450 3050 / 3950 2500 / 2500 Balance 327.5 / -902.5 -1030 / -1870 -1880 / -1880 Lab / Micro Data 07/23/24 05:14 07/23/24 05:14 Labs: Laboratory Results - last 24 hr 07/22/24 17:00: POC Glucose 124 H 07/23/24 05:14: WBC 8.9, RBC 3.64 L, Hgb 10.9 L, Hct 33.4 L, MCV 91.8, MCH 29.9, MCHC 32.6, RDW Std Deviation 49.7 H, RDW Coeff of Lencho 14.8 H, Plt Count 160, MPV 10.0, Immature Gran % (Auto) 1.100 H, Neut % (Auto) 82.5 H, Lymph % (Auto) 10.6 L, [place] % (Auto) 5.3, Eos % (Auto) 0.1, Baso % (Auto) 0.4, Absolute Neuts (auto) 7.4, Absolute Lymphs (auto) 0.95, Nucleated RBC % 0, Sodium 136, Potassium 3.2 L , Chloride 104, Carbon Dioxide 25.0, Anion Gap 7, BUN 12, Creatinine 0.74, Estim Creat Clear Calc 87.12, Est GFR (MDRD) Af Amer 101, Est GFR (MDRD) Non-Af 84, BUN/Creatinine Ratio 16.1, Glucose 189 H, Calcium 8.9 07/23/24 07:37: POC Glucose 166 H 07/23/24 11:29: POC Glucose 188 H Micro: Microbiology 07/21/24 14:30 Urine Catheter - Catheter Urine Culture - Preliminary Culture exhibits no growth. Radiography Diagnostic Testing: Radiology Impression KUB X-Ray 07/23/24 06:35 IMPRESSION: Non-obstructive bowel gas pattern. Electronically Signed: Lexii Lopes MD at 10:16 EDT , Physical Exam Const alert, oriented x3 and no apparent distress; Negative for average body habitus or healthy appearing Constitutional Narrative: obese General Appearance: cooperative HEENT normocephalic, head/scalp atraumatic, hearing grossly normal bilaterally and moist oral mucous membranes Eyes PERRL and EOMs intact bilaterally; Negative for conjunctivae normal Eyes Narrative: Mild conjunctival pallor bilaterally, no scleral icterus Neck no lymphadenopathy, supple and no JVD Neck Narrative: Trachea midline, no thyroid enlargement Lymph Lymphatic: no lymphadenopathy noted and no lymphedema noted Resp normal respiratory effort, no retractions, no use of accessory muscles and clear to auscultation bilaterally Resp Narrative: mildly diminished breath sounds bibasally, no wheezes or crackles. on 2L of oxygen by nasal canula Auscultation: Negative for rales, rhonchi or wheezes Cardio regular rate, regular rhythm, S1 normal heart sound, S2 normal heart sound, no murmurs, no rub, no gallops and no clicks GI normal to inspection, nondistended, normoactive bowel sounds, soft to palpation, non-tender and non-distended Extremity normal capillary refill, no clubbing, cyanosis or edema and no calf tenderness Extremity Narrative: Pedal pulses are 2+ General Extremity: no tenderness to palpation of joints or extremities Skin no rashes or lesions noted, No skin turgor normal, no jaundice, no petechiae and no mottling Skin Narrative: Tenting noted, skin is pale General Skin Exam: no breakdown Neuro oriented x3, CN's II-XII intact bilaterally, moves all extremities, no focal motor deficits and no sensory deficits noted Neuro Narrative: Significant generalized weakness noted Speech: speech normal Motor Exam: strength 5/5 throughout and general weakness Psych thought process normal and cooperative Psych Narrative: Patient is sleepy but interacts appropriately, eye contact is good performed Appearance: appropriate Assessment & Plan Assessment/Plan (1) Hyponatremia: (2) Metabolic acidosis: (3) Acute kidney injury: PLAN: Plan #Hypotension * Likely due to dehydration from decreased intake as well as a still taking the blood pressure medications. * Patient was hydrated with IV fluids and hypotension is now resolved. She was started on broad-spectrum antibiotics for possible septic shock. * Resolved. BP meds resumed. #ARTIE: * resolved. Cr is down to 0.74. * #Hypokalemia: K is 3.2. Will replace and trend. #Metabolic acidosis: * Resolved. Was thought to be due to ARTIE. * #Hypertension: BP now elevated in the 170s systolic. BP meds resumed; on entresto and carvedilol. IV hydralazine prn #History of recent right prosthetic distal femoral fracture * Had surgical intervention at [facility]. PT OT on board. For precautions. #Right fifth toe metatarsal fracture: Currently toe-touch weightbearing. No active intervention needed. PT OT on board. Fall precautions. #Hyponatremia: Resolved #History of stroke: Had an embolic stroke in September 2022. On Eliquis and aspirin. Has residual right-sided weakness. #History of right internal carotid artery stenosis: Has known stenosis of 50 to 69%. Follow-up on outpatient basis. On aspirin and high intensity statin #Type 2 diabetes mellitus: On insulin sliding scale. Checks ACHS. Oral BP meds held due to hypotension and ARTIE. #GERD: on PPI #Benign essential hypertension: BP meds held due to hypotension and AK. On carvedilol and Entresto at home. #History of cardiomyopathy * has known EF of 60% * on entresto. Also no carvedilol * #History of cold sores: on oral valtrex #Hypothyroidism: TSH was 0.232 but free T4 is within normal range at 0.87. Continue Synthroid. # History of chronic pain with neuropathy: Lyrica held due to renal dysfunction. On tizanidine. #Depression and anxiety: On Cymbalta and venlafaxine DVT prophylaxis: [place]ison Disposition: anticipate dc tomorrow Charges/Coding Visit Charges Inpatient E&M: 14602 Subs Hosp L2
[2024-07-23] MEDS: LINAGLIPTIN 5 MG TABLET PO (14:00)
[2024-07-23 16:47] LABS: Bedside Glucose 111 mg/dL (74-106)
[2024-07-23] MEDS: Venlafaxine HCl 75 MG Tablet 150 MG PO (22:29)
[2024-07-23] MEDS: DULoxetine Hcl 60 MG Capsule PO (22:30)
[2024-07-23] MEDS: Atorvastatin Calcium 40 MG Tablet PO (22:31)
[2024-07-23 23:46] LABS: Vancomycin, Trough Level 17.4 ug/mL (5.0-15.0)
--- NOTE | 2024-07-23 23:55 | PCM.RX.CS ---
Consult Antibiotic Management Pharmacy has been consulted to manage selected antibiotic: Vancomycin Type of Intervention Type of Consult: Follow-up Labs Labs: Sodium 136 mmol/L (136-145) 07/23/24 05:14 Potassium 3.2 mmol/L (3.5-5.1) L 07/23/24 05:14 Chloride 104 mmol/L (98-107) 07/23/24 05:14 Carbon Dioxide 25.0 mmol/L (21.0-32.0) 07/23/24 05:14 Anion Gap 7 (5-15) 07/23/24 05:14 BUN 12 mg/dL (7-18) 07/23/24 05:14 Creatinine 0.74 mg/dL (0.55-1.02) 07/23/24 05:14 Est GFR (MDRD) Af Amer 101 mL/min (>60) 07/23/24 05:14 Est GFR (MDRD) Non-Af 84 mL/min (>60) 07/23/24 05:14 BUN/Creatinine Ratio 16.1 RATIO (10-20) 07/23/24 05:14 Glucose 189 mg/dL (74-106) H 07/23/24 05:14 Vancomycin Trough 17.4 ug/mL (5.0-15.0) H 07/23/24 23:12 Microbiology Microbiology: Microbiology 07/21/24 14:30 Urine Catheter - Catheter Urine Culture - Final Culture exhibits no growth. Goal Trough Goal Trough: 15-20 mcg/mL Pharmacy Plan for Drug Dosing Pharmacy Plan for Drug Dosing: Pharmacy Service will continue to monitor and adjust dosing as required. TROUGH 17.4 @ 12 HOURS. NO CHANGES, FOLLOW UP TROUGH IN 2 DAYS Follow-Up Labs Follow-Up Labs: Trough: Vancomycin Date/Time Labs Ordered Labs to be done on [date and time ordered]: 07/25 @ 2300
[2024-07-24] MEDS: Vancomycin Trough/Random Due 1 LAB MC
[2024-07-24] MEDS: Vancomycin IV 1,000 MG/200 ML BAG 200 MG IV (00:01)
[2024-07-24 03:00] VITALS: BP 144/72; PULSE 100; RESP 16; TEMP 36.1; O2SAT 95
[2024-07-24] MEDS: Levothyroxine 125 MCG Tablet PO (05:44)
[2024-07-24] MEDS: Piperacil/Tazobactam 3.375 GM in 0.9% Normal Saline (50mL MB+) 50 ML IV (05:44)
--- NOTE | 2024-07-24 06:35 | RAD_ITS ---
INDICATION: Abdominal pain EXAMINATION/TECHNIQUE: X-RAY - XR Abdomen 1 View COMPARISON: Prior study dated: 09/10/2018 FINDINGS: BOWEL GAS PATTERN: Non-obstructive. No bowel or stomach distention. FREE AIR: Not assessed on a single supine view. ORGANOMEGALY: Not seen. CALCIFICATIONS: No abnormal calcifications observed. LOWER CHEST: No acute pathology. BONES AND SOFT TISSUES: No acute pathology. Multilevel degenerative change throughout the spine. RAD/Abdomen Single View (Portable) IMPRESSION: Non-obstructive bowel gas pattern. Electronically Signed: Landen Kramer MD at 5:00 EDT ,
[2024-07-24 06:36] LABS: Absolute Lymphocyte Count 1.67 X10^3/uL (0.83-4.51); Absolute Neutrophil Count 5.7 X10^3/uL (2.0-7.7); Basophil# 0.04 X10^3/uL; Basophil% 0.5 % (0-1); Eosinophil# 0.18 X10^3/uL; Eosinophils% 2.2 % (0-5); Hematocrit 33.9 % (37-47); Lymphocyte # 1.67 X10^3/ul (0.83-4.51); Lymphocyte % 20.2 % (19-41); Mean Corp Hgb Conc 32.4 g/dL (32-36); Mean Corpuscular Hgb 30.1 pg (27.0-32.0); Mean Corpuscular Volume 92.9 fL (81-99); Mean Platelet Vol. 9.9 fl (6.2-12.0); Monocyte# 0.65 X10^3/uL; Monocyte% 7.9 % (0-10); NRBC Flagged by Analyzer 0 % (0-5); Neutrophil # 5.68 X10^3/uL (2.7-7.7); Neutrophil % 68.6 % (47-70); Platelet Count 135 K/mm3 (150-450); RBC Distribution Width CV 14.8 % (11.6-14.6); RBC Distribution Width SD 50.2 fl (35.1-43.9); Red Blood Count 3.65 M/mm3 (4.2-5.4); White Blood Count 8.3 K/mm3 (4.4-11.0)
[2024-07-24 07:09] LABS: Anion Gap 5 (5-15); BUN 10 mg/dL (7-18); Calcium,Total 8.5 mg/dL (8.5-10.1); Chloride 106 mmol/L (98-107); Creatinine, Serum 0.83 mg/dL (0.55-1.02); EST Glomerular Filtration Rate 73 mL/min (>60); Est Glom Filt Rate - Afr Amer 89 mL/min (>60); Estimated Creatinine Clearance 77.67 ml/min; Glucose 130 mg/dL (74-106); Potassium 3.4 mmol/L (3.5-5.1); Sodium Level 138 mmol/L (136-145)
[2024-07-24 07:27] VITALS: BP 166/88; PULSE 102; RESP 16; TEMP 35.6; O2SAT 100
[2024-07-24 08:52] VITALS: BP 180/101; PULSE 105
[2024-07-24] MEDS: Potassium Chloride Oral Tablet 20 MEQ 40 MEQ PO (08:53)
[2024-07-24] MEDS: Pantoprazole Sodium 40 MG Tablet PO (08:54)
[2024-07-24] MEDS: DULoxetine Hcl 60 MG Capsule PO (08:54)
[2024-07-24] MEDS: Dicyclomine 10 MG Capsule 20 MG PO ×2 (08:54→11:29)
[2024-07-24] MEDS: Calcium Carb/Vitamin D 1 TABLET Tablet PO (08:54)
[2024-07-24] MEDS: Ascorbic Acid 500 MG Tablet PO (08:54)
[2024-07-24] MEDS: APIXABAN 5 MG TABLET PO (08:55)
[2024-07-24] MEDS: Aspirin E.C. 81 MG Tablet PO (08:55)
[2024-07-24] MEDS: SACUBITRIL/VALSARTAN 49-51 MG TABLET 1 EACH PO (08:55)
[2024-07-24] MEDS: Magnesium Chloride 64 MG Delay Rel.Tablet 128 MG PO (08:55)
[2024-07-24] MEDS: Cholecalciferol (VIT D3) 25 MCG TABLET (1,000 UNITS) 50 MCG PO (08:55)
[2024-07-24] MEDS: Carvedilol 25 MG Tablet PO (08:55)
[2024-07-24] MEDS: Loratadine 10 MG Tablet PO (08:55)
--- NOTE | 2024-07-24 09:14 | CASEMGMT ---
Discharge Planning Resumption HH referral sent to [facility]. Requested confirmation of disciplines being received. Varsha Hernandez DC Planning Asst.
--- NOTE | 2024-07-24 09:21 | PCM.RX.CS ---
Consult Antibiotic Management Pharmacy has been consulted to manage selected antibiotic: Vancomycin Type of Intervention Type of Consult: Follow-up Prior Doses of Antibiotics Prior Doses of Antibiotics Received/Current Regimen: 1000mg iv q12h Labs Labs: Sodium 138 mmol/L (136-145) 07/24/24 05:42 Potassium 3.4 mmol/L (3.5-5.1) L 07/24/24 05:42 Chloride 106 mmol/L (98-107) 07/24/24 05:42 Carbon Dioxide 27.0 mmol/L (21.0-32.0) 07/24/24 05:42 Anion Gap 5 (5-15) 07/24/24 05:42 BUN 10 mg/dL (7-18) 07/24/24 05:42 Creatinine 0.83 mg/dL (0.55-1.02) 07/24/24 05:42 Est GFR (MDRD) Af Amer 89 mL/min (>60) 07/24/24 05:42 Est GFR (MDRD) Non-Af 73 mL/min (>60) 07/24/24 05:42 BUN/Creatinine Ratio 12.0 RATIO (10-20) 07/24/24 05:42 Glucose 130 mg/dL (74-106) H 07/24/24 05:42 Vancomycin Trough 17.4 ug/mL (5.0-15.0) H 07/23/24 23:12 Microbiology Microbiology: Microbiology 07/21/24 16:44 Blood Culture (Wb) - Anticubital Left Blood Culture - Preliminary No growth in 48 hours. 07/21/24 14:30 Urine Catheter - Catheter Urine Culture - Final Culture exhibits no growth. Dosing Weight Weight used for dosin.8 kg Estimated Creatinine Clearance Estimated Creatinine Clearance: 78ml/min Goal Trough Goal Trough: 15-20 mcg/mL Pharmacy Plan for Drug Dosing Pharmacy Plan for Drug Dosing: Renal function improved. Recommend changing dose to 1250mg iv q12h with trough before 4th dose. Pharmacy Service will continue to monitor and adjust dosing as required. Follow-Up Labs Follow-Up Labs: Trough: Vancomycin (07.25.24 @2300)
--- NOTE | 2024-07-24 09:33 | CASEMGMT ---
Patient will need transportation home today. SW checked with patient and she said she can get in and out of a wheelchair by herself. Zulema June MSW ROLAN
[2024-07-24 10:25] VITALS: BP 154/84; PULSE 89
[2024-07-24] MEDS: LINAGLIPTIN 5 MG TABLET PO (10:26)
[2024-07-24] MEDS: Vancomycin HCl 1,250 MG in 0.9% Normal Saline (250mL Bag) 250 ML 167 MG IV (11:28)
[2024-07-24 11:53] LABS: Bedside Glucose 122 mg/dL (74-106)
--- NOTE | 2024-07-24 12:25 | DCINST_ITS ---
Discharge Instructions Diet Discharge Diet: Low fat / Low cholesterol Activity Discharge Activity: Use Walker and - (non weight bearing to RLE due to femoral fracture) Weight Bearing Status: No weight bearing (to RLE due to femoral fracture) Dressing / Incision Call your doctor if you observe: Fever of 101 or Higher, Shortness of breath, Dizziness, Swelling in the ankles and Chest pain Follow Up Care Test Results: Test results from this visit will be discussed in further detail at your follow- up appointment, if applicable. Discharge Plan Admission Admit Date/Time: 07/21/24 14:26 Primary Reason for Your Visit: hypotension Attending Provider: Nichol Draper Primary Care Provider: Brandon Torres Consulting Providers: Keith Rosas; Ariella Call Instructions Patient Instructions: Hypotension Dc Discharge Orders/Prescriptions Prescriptions: Continued Januvia 50 mg tablet 50 mg PO DAILY rosuvastatin [Crestor] 20 mg tablet 20 mg PO QHS pregabalin 100 mg capsule 100 mg PO DAILY pantoprazole 40 MG tablet 40 mg PO BID amitriptyline 25 MG tablet 25 mg PO QHS duloxetine 60 MG capsule 60 mg PO BID Entresto 49-51 mg Tablet 1 tab PO BID alendronate 70 MG tablet 70 mg PO TU aspirin 81 MG tablet,delayed release (DR/EC) 81 mg PO DAILY@0800 dicyclomine 20 mg Tablet 20 mg PO TIDCM Eliquis 5 mg Tablet 5 mg PO BID 30 Days Qty: 60 0RF Patient Comments: Start taking May 03, 2024 carvedilol [Coreg] 25 mg tablet 25 mg PO BIDCM benzonatate 100 mg capsule 100 - 200 mg PO Q8H PRN (Reason: COUGH ) venlafaxine 75 mg tablet 150 mg PO QHS levothyroxine 125 mcg tablet 125 mcg PO DAILY fluticasone propion-salmeterol [Advair Diskus] 500-50 mcg/dose blister with device 1 ea inhalation BID docusate sodium 100 mg capsule 100 mg PO BID ascorbic acid (vitamin C) 500 mg tablet 500 mg PO DAILY calcium carbonate-vitamin D3 [Calcium 600 + D(3)] 600 mg-5 mcg (200 unit) tablet 1 tab PO DAILY All Day Allergy (cetirizine) 10 mg capsule 10 mg PO DAILY magnesium oxide 400 mg magnesium tablet 400 mg PO DAILY cholecalciferol (vitamin D3) [Vitamin D3] 50 mcg (2,000 unit) tablet 50 mcg PO DAILY Galzin 50 mg (zinc) capsule 50 mg PO DAILY acetaminophen 500 mg Tablet 1,000 mg PO Q8 Qty: 0 0RF hydrocodone-acetaminophen 7.5-325 mg tablet 1 tab PO Q8H PRN (Reason: pain ) Referrals / Follow Up: Keith Rosas DPM [Med Staff - Active Staff] - 08/04/24 2:30 pm (schedule appointment 1-2 weeks after discharge) Brandon Torres DO [Primary Care Provider] - 07/31/24 12:20 pm (APPOINTMENT IS WITH DR. SALINAS, IN DR. ALLEN OFFICE. ) Disposition Disposition (needs filled in before D/C Order can be placed): Home, Self Care
--- NOTE | 2024-07-24 12:29 | CASEMGMT ---
CECE called [facility] and let them know that patient is being discharged today. Zulema June MEAL GRINDER TENDERMaite GONGORA
--- NOTE | 2024-07-24 12:42 | CASEMGMT ---
Discharge Planning Physicians will transport patient home by wheelchair at 3p. Nursing updated. Varsha Hernandez DC Planning Asst.
[2024-07-24 12:47] VITALS: BP 153/98; PULSE 98; RESP 18; TEMP 36.2; O2SAT 97
--- NOTE | 2024-07-24 13:52 | CASEMGMT ---
d/c instructions faxed to [facility]. Zulema June MEDICAL DERMATOLOGIST ARTIST SCIENTIFIC
--- NOTE | 2024-07-24 14:27 | CASEMGMT ---
Patient has order for discharge. DC planning manager updated [facility], start of care is planned for Sunday. DC plan updated. RN CM in to discuss needs at discharge. Patient updated regarding start of care. Patient denies further needs or help at discharge. Patient had no further questions or concerns.
--- NOTE | 2024-07-24 15:41 | DS.PCM_ITS ---
Providers Date of Admission: 07/21/24 Date of Discharge: 07/24/24 Primary Care Physician: Dr. Brandon Torres, DO Consultations 07/21/24 17:03 Consult: Podiatry Routine Consulting Provider: Keith Rosas Reason for Consult: Fracture of the right metatarsal base fifth digit EMERGENT Consult: No MD Notified: Yes Date Notified: 07/21/24 Time Notified: 15:51 Method of Notification: ED Physician Initiated Reason For Visit: ARTIE/HYPOTENSION Diagnosis Discharge Diagnosis (1) Hyponatremia: Status: Acute Code(s): E87.1 - Hypo-osmolality and hyponatremia (2) Metabolic acidosis: Status: Acute Code(s): E87.20 - Acidosis, unspecified (3) Acute kidney injury: Status: Acute Code(s): N17.9 - Acute kidney failure, unspecified Plan #Hypotension * Likely due to dehydration from decreased intake as well as a still taking the blood pressure medications. * Patient was hydrated with IV fluids and hypotension is now resolved. She was started on broad-spectrum antibiotics for possible septic shock. * Resolved. BP meds resumed. #ARTIE: * resolved. Cr is down to 0.74. * #Hypokalemia: K is 3.2. Will replace and trend. #Metabolic acidosis: * Resolved. Was thought to be due to ARTIE. * #Hypertension: BP now elevated in the 170s systolic. BP meds resumed; on entresto and carvedilol. IV hydralazine prn #History of recent right prosthetic distal femoral fracture * Had surgical intervention at [facility]. PT OT on board. For precautions. #Right fifth toe metatarsal fracture: Currently toe-touch weightbearing. No active intervention needed. PT OT on board. Fall precautions. #Hyponatremia: Resolved #History of stroke: Had an embolic stroke in September 2022. On Eliquis and aspirin. Has residual right-sided weakness. #History of right internal carotid artery stenosis: Has known stenosis of 50 to 69%. Follow-up on outpatient basis. On aspirin and high intensity statin #Type 2 diabetes mellitus: On insulin sliding scale. Checks ACHS. Oral BP meds held due to hypotension and ARTIE. #GERD: on PPI #Benign essential hypertension: BP meds held due to hypotension and AK. On carvedilol and Entresto at home. #History of cardiomyopathy * has known EF of 60% * on entresto. Also no carvedilol * #History of cold sores: on oral valtrex #Hypothyroidism: TSH was 0.232 but free T4 is within normal range at 0.87. Continue Synthroid. # History of chronic pain with neuropathy: Lyrica held due to renal dysfunction. On tizanidine. #Depression and anxiety: On Cymbalta and venlafaxine DVT prophylaxis: eliquis Disposition: anticipate dc tomorrow Medications at Discharge Home Medications pantoprazole 40 mg tablet,delayed release 40 mg PO BID GERD 03/29/19 amitriptyline 25 mg tablet 25 mg PO QHS MOOD 08/10/19 rosuvastatin 20 mg tablet (Crestor) 20 mg PO QHS CHOLESTEROL 08/25/19 sitagliptin phosphate 50 mg tablet (Januvia) 50 mg PO DAILY DIABETES 09/04/19 duloxetine 60 mg capsule,delayed release 60 mg PO BID DEPRESSION 10/19/20 pregabalin 100 mg capsule 100 mg PO DAILY PAIN 05/18/21 sacubitril 49 mg-valsartan 51 mg tablet (Entresto) 1 tab PO BID HEART 02/11/22 alendronate 70 mg tablet 70 mg PO TU BONES 02/13/22 aspirin 81 mg tablet,delayed release 81 mg PO DAILY@0800 HEART HEALTH 02/15/22 dicyclomine 20 mg tablet 20 mg PO TIDCM IRRITABLE BOWELS 09/11/22 apixaban 5 mg tablet (Eliquis) 5 mg PO BID blood thinner 30 days #60 tabs 09/18/22 benzonatate 100 mg capsule 100 - 200 mg PO Q8H PRN COUGH 05/28/23 venlafaxine 75 mg tablet 150 mg PO QHS DEPRESSION 05/29/23 carvedilol 25 mg tablet (Coreg) 25 mg PO BIDCM HEART 10/24/23 fluticasone 500 mcg-salmeterol 50 mcg/dose blistr powdr for inhalation (Advair Diskus) 1 ea inhalation BID Asthma 04/25/24 levothyroxine 125 mcg tablet 125 mcg PO DAILY Hypothyroidism 04/25/24 ascorbic acid (vitamin C) 500 mg tablet 500 mg PO DAILY Supplement 05/01/24 calcium carbonate 600 mg-vitamin D3 5 mcg (200 unit) tablet (Calcium 600 + D(3)) 1 tab PO DAILY Supplement 05/01/24 cetirizine 10 mg capsule (All Day Allergy (cetirizine)) 10 mg PO DAILY Allergies 05/01/24 cholecalciferol (vitamin D3) 50 mcg (2,000 unit) tablet (Vitamin D3) 50 mcg PO DAILY Supplement 05/01/24 docusate sodium 100 mg capsule 100 mg PO BID Constipation 05/01/24 magnesium oxide 400 mg PO DAILY Supplement 05/01/24 zinc acetate 50 mg (zinc) capsule (Galzin) 50 mg PO DAILY Supplement 05/01/24 acetaminophen 500 mg tablet 1,000 mg (2 x 500 mg) PO Q8 pain #0 tabs 05/12/24 hydrocodone 7.5 mg-acetaminophen 325 mg tablet 1 tab PO Q8H PRN pain 07/21/24 Hospital Course Operations None Procedures None Summary of Care Provided Minutes Spent on Discharge: 55 Hospital Course: Patient is a 63-year-old female with past medical history as outlined was admitted through the ED on 07/21/2024 with a complaint of generalized weakness and malaise. She had been seen in the ED on 07/19/2024 after she sustained a fall at home 2 nights prior to the presentation. She complained of acute foot pain so came into the ED. Imaging done at that time showed a right fifth metatarsal fracture at the base of the right toe. She was post be nonweightbearing on account of her femoral fracture she had sustained in April and not had surgery at [facility]. As stated she was discharged home after she came to the ED on 07/19/2024. However when she went home she was weak and lethargic and could not eat or drink well. She therefore came into the ED on 07/21/2024. On admission she was found to be hyponatremic with sodium of 133. Serum creatinine was 2.28 which was markedly elevated from her baseline of 0.5- 0.75. Lactic acid was 1.1. ABG done showed pCO2 of 70 and pCO2 of 43.2. Urinalysis showed no evidence of UTI. Blood pressure was initially 73/50 but came up to 86/57. Patient was admitted and managed for hypotension which was thought to be likely due to dehydration. However she was also started on broad- spectrum antibiotics empirically due to concerns for infection and blood and urine cultures were obtained. She was also managed for ARTIE likely due to dehydration. She was hydrated aggressively with IV fluids. The ARTIE resolved and creatinine trended down to 0.74. Hypotension also resolved with IV fluid administration. Her blood pressure medications were resumed. Blood cultures and urine cultures were negative and did not show any growth. Antibiotics were therefore discontinued as there was no focus of infection. Patient subsequently felt much better. She was discharged home on 07/24/2024. She is keep a blood pressure log to present to her PCP for adjustment of her blood pressure medications. Of note podiatry was consulted on account of the fractured right little toe and recommendation was for patient to be nonweightbearing on the right lower extremity and this will be sufficient for healing until there was a transition weightbearing status pending progress for the right femoral fracture. She is also follow-up with podiatry on outpatient basis. Patient seen and examined prior to discharge. She had no active complaints and had an uneventful night. Review of systems otherwise negative. Labs and vitals reviewed. Home medication reviewed and reconciled. She was eager to be discharged home. Labs and vitals reviewed. Home medication reviewed and reconciled. Physical Exam Const alert, oriented x3 and no apparent distress; Negative for average body habitus or healthy appearing Constitutional Narrative: obese General Appearance: cooperative and comfortable Exam Limitations: no limitations HEENT normocephalic, head/scalp atraumatic, hearing grossly normal bilaterally and moist oral mucous membranes Mouth: oral and palatal mucosa normal Eyes PERRL and EOMs intact bilaterally; Negative for conjunctivae normal Neck no lymphadenopathy, supple and no JVD Lymph Lymphatic: no lymphadenopathy noted and no lymphedema noted Resp normal respiratory effort, no retractions, no use of accessory muscles and clear to auscultation bilaterally Auscultation: Negative for rales, rhonchi or wheezes Cardio regular rate, regular rhythm, S1 normal heart sound, S2 normal heart sound, no murmurs, no rub, no gallops and no clicks GI normal to inspection, nondistended, normoactive bowel sounds, soft to palpation, non-tender and non-distended Extremity Extremity Narrative: right foot wrapped in bandage. General Extremity: no tenderness to palpation of joints or extremities Skin no rashes or lesions noted, No skin turgor normal, no jaundice, no petechiae and no mottling Neuro oriented x3, CN's II-XII intact bilaterally, moves all extremities, no focal motor deficits and no sensory deficits noted Speech: speech normal Motor Exam: strength 5/5 throughout and general weakness Psych thought process normal and cooperative Appearance: appropriate Weight / BMI Weight Weight: 202 lb 6.15 oz Body Mass Index (BMI) 33.7 ABG / Lab / Microbiology Data 07/24/24 05:42 07/24/24 05:42 Laboratory: Laboratory Results - last 24 hr 07/23/24 16:27: POC Glucose 111 H 07/23/24 23:12: Vancomycin Trough 17.4 H 07/24/24 05:42: WBC 8.3, RBC 3.65 L, Hgb 11.0 L, Hct 33.9 L, MCV 92.9, MCH 30.1, MCHC 32.4, RDW Std Deviation 50.2 H, RDW Coeff of Lencho 14.8 H, Plt Count 135 L, MPV 9.9, Immature Gran % (Auto) 0.600, Neut % (Auto) 68.6, Lymph % (Auto) 20.2, Colbert % (Auto) 7.9, Eos % (Auto) 2.2, Baso % (Auto) 0.5, Absolute Neuts (auto) 5.7, Absolute Lymphs (auto) 1.67, Nucleated RBC % 0, Sodium 138, Potassium 3.4 L , Chloride 106, Carbon Dioxide 27.0, Anion Gap 5, BUN 10, Creatinine 0.83, Estim Creat Clear Calc 77.67, Est GFR (MDRD) Af Amer 89, Est GFR (MDRD) Non-Af 73, BUN/Creatinine Ratio 12.0, Glucose 130 H, Calcium 8.5 07/24/24 11:28: POC Glucose 122 H Microbiology: Microbiology 07/21/24 16:44 Blood Culture (Wb) - Anticubital Left Blood Culture - Preliminary No growth in 48 hours. 07/21/24 14:30 Urine Catheter - Catheter Urine Culture - Final Culture exhibits no growth. Radiography Diagnostic Testing: Radiology Impression KUB X-Ray 07/24/24 06:35 IMPRESSION: Non-obstructive bowel gas pattern. Electronically Signed: Landen Kramer MD at 5:00 EDT , D/C Instructions Discharge Diet: Low fat / Low cholesterol Discharge Activity: Return to Normal Activity Weight Bearing Status: No weight bearing (to RLE due to femoral fracture) Call your doctor if you observe: Fever of 101 or Higher, Shortness of breath, Dizziness, Swelling in the ankles and Chest pain Meaningful Use Info Meaningful Use Meaningful Use Diagnoses (Choose all that apply): None applicable Ischemic Stroke Statin Dosing Therapy Reference: STATIN DOSE THERAPY REFERENCE: * Patients > 75 years receive moderate or high dose statin therapy. * Patients 75 years or YOUNGER should receive HIGH intensity statin dose unless contraindicated. You will be required to document reason for non-treatment if statin daily dose does not meet guidelines. HIGH DOSE STATIN THERAPY DAILY Atorvastatin > than or = to 40 mg Rosuvastatin > than or = to 20 mg Amlodipine + Atorvastatin > than or = to 2.5/40 mg Ezetimibe + Simvastatin 10/80 mg Simvastatin 80mg Discharge Plan Admission Admit Date/Time: 07/21/24 14:26 Primary Reason for Your Visit: hypotension Attending Provider: Nichol Draper Primary Care Provider: Brandon Torres Consulting Providers: Keith Rosas; Ariella Call Instructions Patient Instructions: Hypotension Dc Discharge Orders/Prescriptions Prescriptions: Continued Januvia 50 mg tablet 50 mg PO DAILY rosuvastatin [Crestor] 20 mg tablet 20 mg PO QHS pregabalin 100 mg capsule 100 mg PO DAILY pantoprazole 40 MG tablet 40 mg PO BID amitriptyline 25 MG tablet 25 mg PO QHS duloxetine 60 MG capsule 60 mg PO BID Entresto 49-51 mg Tablet 1 tab PO BID alendronate 70 MG tablet 70 mg PO TU aspirin 81 MG tablet,delayed release (DR/EC) 81 mg PO DAILY@0800 dicyclomine 20 mg Tablet 20 mg PO TIDCM Eliquis 5 mg Tablet 5 mg PO BID 30 Days Qty: 60 0RF Patient Comments: Start taking May 03, 2024 carvedilol [Coreg] 25 mg tablet 25 mg PO BIDCM benzonatate 100 mg capsule 100 - 200 mg PO Q8H PRN (Reason: COUGH ) venlafaxine 75 mg tablet 150 mg PO QHS levothyroxine 125 mcg tablet 125 mcg PO DAILY fluticasone propion-salmeterol [Advair Diskus] 500-50 mcg/dose blister with device 1 ea inhalation BID docusate sodium 100 mg capsule 100 mg PO BID ascorbic acid (vitamin C) 500 mg tablet 500 mg PO DAILY calcium carbonate-vitamin D3 [Calcium 600 + D(3)] 600 mg-5 mcg (200 unit) tablet 1 tab PO DAILY All Day Allergy (cetirizine) 10 mg capsule 10 mg PO DAILY magnesium oxide 400 mg magnesium tablet 400 mg PO DAILY cholecalciferol (vitamin D3) [Vitamin D3] 50 mcg (2,000 unit) tablet 50 mcg PO DAILY Galzin 50 mg (zinc) capsule 50 mg PO DAILY acetaminophen 500 mg Tablet 1,000 mg PO Q8 Qty: 0 0RF hydrocodone-acetaminophen 7.5-325 mg tablet 1 tab PO Q8H PRN (Reason: pain ) Referrals / Follow Up: Keith Rosas DPM [Med Staff - Active Staff] - 08/04/24 2:30 pm (schedule appointment 1-2 weeks after discharge) Brandon Torres DO [Primary Care Provider] - 07/31/24 12:20 pm (APPOINTMENT IS WITH DR. SALINAS, IN DR. ALLEN OFFICE. ) Disposition Disposition (needs filled in before D/C Order can be placed): Home Health Service Charges/Coding Visit Charges Inpatient E&M: 51199 Disch Hosp >30min
== END 2024-07-24 15:38 | disposition home health service (06) | DRG 683 ==
LOC: ED 14:01 → PCU 16:40
PROVIDERS: Admitting Provider Internal Medicine; Emergency Provider Emergency Medicine; PCP Student in an Organized Health Care Education/Training Program; Visit Provider Student in an Organized Health Care Education/Training Program
DX: N17.9 Acute kidney failure, unspecified (principal); I13.0 Hypertensive heart and chronic kidney disease with heart failure and stage 1 through stage 4 chronic kidney disease, or unspecified chronic kidney disease; E87.20 Acidosis, unspecified; E87.1 Hypo-osmolality and hyponatremia; I50.22 Chronic systolic (congestive) heart failure; I69.351 Hemiplegia and hemiparesis following cerebral infarction affecting right dominant side; I42.8 Other cardiomyopathies; M97.8XXA Periprosthetic fracture around other internal prosthetic joint, initial encounter; E11.22 Type 2 diabetes mellitus with diabetic chronic kidney disease; D64.9 Anemia, unspecified; I95.9 Hypotension, unspecified; J44.9 Chronic obstructive pulmonary disease, unspecified; N18.30 Chronic kidney disease, stage 3 unspecified; F32.A Depression, unspecified; E03.9 Hypothyroidism, unspecified; Z68.35 Body mass index [BMI] 35.0-35.9, adult; E86.0 Dehydration; K21.9 Gastro-esophageal reflux disease without esophagitis; E11.40 Type 2 diabetes mellitus with diabetic neuropathy, unspecified; I25.10 Atherosclerotic heart disease of native coronary artery without angina pectoris; E78.5 Hyperlipidemia, unspecified; E87.6 Hypokalemia; I65.21 Occlusion and stenosis of right carotid artery; F41.9 Anxiety disorder, unspecified; W06.XXXA Fall from bed, initial encounter; Z79.83 Long term (current) use of bisphosphonates; Z87.891 Personal history of nicotine dependence; Z79.82 Long term (current) use of aspirin; M81.0 Age-related osteoporosis without current pathological fracture; Z79.01 Long term (current) use of anticoagulants; Z79.84 Long term (current) use of oral hypoglycemic drugs; Z79.51 Long term (current) use of inhaled steroids; E66.9 Obesity, unspecified; Z79.890 Hormone replacement therapy; S92.354D Nondisplaced fracture of fifth metatarsal bone, right foot, subsequent encounter for fracture with routine healing; Z79.899 Other long term (current) drug therapy; Z98.61 Coronary angioplasty status; Z96.653 Presence of artificial knee joint, bilateral; Z90.49 Acquired absence of other specified parts of digestive tract; B00.1 Herpesviral vesicular dermatitis; R10.84 Generalized abdominal pain; Z23 Encounter for immunization
CPT/HCPCS: 36415; 36569; 36600; 70450; 71045; 72125; 73630; 74018; 80048; 80053; 80202; 81001; 82570; 82803; 82962; 83605; 83735; 84100; 84300; 84439; 84443; 84484; 85018; 85025; 87040; 87086; 90656; 93005; 93306; 94640; 94668; 97162; 97166; 97530; 97802; 99252; 99282; 99285; J7030; J7040; J7050; J7120; Q9957; A4216; C8929; G0463; J2405

== ENCOUNTER 2024-12-26 12:50 | Inpatient (IN) | payer MEDICARE, MEDICAID, SELFPAY ==
[2024-12-26] VITALS (26 sets, daily range): BP systolic 56–142; BP diastolic 37–92; PULSE 73–85; RESP 12–25; TEMP 35.2–36.6; O2SAT 96–99; BMI 33.3; BMI 33.4
[2024-12-26 14:09] LABS: Absolute Lymphocyte Count 0.73 X10^3/uL (0.83-4.51); Absolute Neutrophil Count 11.1 X10^3/uL (2.0-7.7); Basophil# 0.04 X10^3/uL; Basophil% 0.3 % (0-1); Eosinophil# 0.11 X10^3/uL; Eosinophils% 0.9 % (0-5); Hematocrit 24.6 % (37-47); Hemoglobin 7.2 g/dL (12.0-15.0); Lymphocyte # 0.73 X10^3/ul (0.83-4.51); Lymphocyte % 5.8 % (19-41); Mean Corp Hgb Conc 29.3 g/dL (32-36); Mean Corpuscular Hgb 30.1 pg (27.0-32.0); Mean Corpuscular Volume 102.9 fL (81-99); Mean Platelet Vol. 9.8 fl (6.2-12.0); Monocyte# 0.57 X10^3/uL; Monocyte% 4.5 % (0-10); NRBC Flagged by Analyzer 0 % (0-5); Neutrophil # 11.05 X10^3/uL (2.7-7.7); Neutrophil % 87.7 % (47-70); Platelet Count 150 K/mm3 (150-450); RBC Distribution Width CV 16.9 % (11.6-14.6); Red Blood Count 2.39 M/mm3 (4.2-5.4); White Blood Count 12.6 K/mm3 (4.4-11.0)
[2024-12-26 14:30] LABS: ALB/GLOB Ratio 0.5 RATIO (0.9-2.4); AST(SGOT) 22 U/L (15-37); Alanine Aminotransfer ALT/SGPT 20 U/L (13-56); Alkaline Phosphatase 87 U/L (45-117); Anion Gap 9 (5-15); BUN 47 mg/dL (7-18); BUN/Creat Ratio 21.4 RATIO (10-20); Calcium,Total 9.3 mg/dL (8.5-10.1); Chloride 107 mmol/L (98-107); EST Glomerular Filtration Rate 24 mL/min (>60); Est Glom Filt Rate - Afr Amer 29 mL/min (>60); Globulin 3.9 g/dL (2.2-4.2); Glucose 83 mg/dL (74-106); Potassium 4.5 mmol/L (3.5-5.1); Protein, Total 5.9 g/dL (6.4-8.2); Sodium Level 132 mmol/L (136-145)
--- NOTE | 2024-12-26 15:48 | EX.ED.DYSGE1 ---
HPI <Dr. Addy Choi MD - Last Filed: 12/26/24 19:21> History of Present Illness Chief Complaint: Nausea/Vomiting Informant: patient Onset/Context/Timing Onset: Days (Onset Sunday, December 24) Context: Sudden Onset Timing: Continuous and Waxes and wanes Quality: Sharp crampy Location: Generalized abdomen Current Severity: Moderate Maximum Severity: Severe Worsened by: Nothing Relieved by: Nothing Associated Symptoms Associated Symptoms: Thirst, dry mouth, orthostatic lightheadedness, decreased urine output Narrative Narrative: Patient is a 63-year-old woman with type 2 diabetes, COPD, chronic heart failure with reduced ejection fraction, MRSA pneumonia, peripheral vascular disease, GERD, essential hypertension and history of stroke 2018. Patient presents with nausea vomiting decreased appetite. Illness started Sunday. She is vomited 3 times since then. She has had very little p.o. intake both fluids or solids. She endorses decreased urine output. Denies dysuria, frequency, urgency or hematuria. She denies black or maroon-colored stool. Denies blood or mucus in her stool. She denies hematemesis or coffee-ground emesis. Patient does endorse wheezing, shortness of breath. She also has rhinorrhea that started 3 weeks ago. Review of her meds would indicate she is on no rescue inhaler. She is on apixaban. She denies history of PE or DVT. She denies leg pain, swelling discoloration from baseline. Prior similar symptoms: Yes Recent Illness/Hospitalization: No PFSH <Dr. Addy Choi MD - Last Filed: 12/26/24 19:21> PFSH Medical History Nondisplaced fracture of fifth right metatarsal bone Anemia History of type 2 diabetes mellitus History of hypertension Right femoral fracture Depression Hypothyroidism History of MRSA infection of lungs Delirium Debility Falls Metabolic encephalopathy Complicated urinary tract infection Acute hypotension Brain TIA Embolic stroke Normocytic anemia History of stroke Diabetes mellitus Hyperlipidemia Hypertension Stroke/cerebrovascular accident Cardiomyopathy Chronic systolic (congestive) heart failure Non-ischemic cardiomyopathy History of CVA (cerebrovascular accident) (2018) Flash pulmonary edema (01/16/21) Peripheral vascular disease History of depression Atherosclerosis of coronary artery without angina pectoris CKD (chronic kidney disease) stage 3, GFR 30-59 ml/min Asthma exacerbation Pulmonary edema Acute respiratory failure with hypoxia Trigeminal trophic syndrome Stomach ulcer Hypothyroidism Osteopenia Osteoarthritis Kidney disease Hyperlipidemia Essential hypertension Chronic headaches GI problem Gallstones History of emotional problems Type 2 diabetes mellitus Carpal tunnel syndrome Bone fracture Asthma Anemia Seasonal allergies Herpes simplex GERD (gastroesophageal reflux disease) Allergic rhinitis Irritable bowel syndrome Gait difficulty Right hemiparesis Debility Osteoporosis Normochromic normocytic anemia Secondary adrenal insufficiency ACTH deficiency Neuropathy Falls Hypotension Carotid artery stenosis Bilateral leg weakness History of ischemic colitis Chronic constipation with suspected IBS Obesity Hx of diverticulitis of colon History of Clostridium difficile infection Home Medications ?Medication ?Instructions ?Recorded ?Last Taken ?Type pantoprazole 40 mg tablet,delayed 40 mg PO BID GERD 03/29/19 10/24/23 History release amitriptyline 25 mg tablet 25 mg PO QHS MOOD 08/10/19 07/20/24 History rosuvastatin 20 mg tablet (Crestor) 20 mg PO QHS CHOLESTEROL 08/25/19 07/20/24 History sitagliptin phosphate 50 mg tablet 50 mg PO DAILY DIABETES 09/04/19 07/20/24 History (Januvia) duloxetine 60 mg capsule,delayed 60 mg PO BID DEPRESSION 10/19/20 04/25/24 History release pregabalin 100 mg capsule 100 mg PO DAILY PAIN 05/18/21 07/20/24 History sacubitril 49 mg-valsartan 51 mg 1 tab PO BID HEART 02/11/22 07/20/24 History tablet (Entresto) alendronate 70 mg tablet 70 mg PO TU BONES 02/13/22 07/15/24 History aspirin 81 mg tablet,delayed 81 mg PO DAILY@0800 HEART [facility] 02/15/22 04/25/24 History release dicyclomine 20 mg tablet 20 mg PO TIDCM IRRITABLE BOWELS 09/11/22 07/20/24 History apixaban 5 mg tablet (Eliquis) 5 mg PO BID blood thinner 30 days 09/18/22 07/20/24 Rx #60 tabs benzonatate 100 mg capsule 100 - 200 mg PO Q8H PRN COUGH 05/28/23 Unknown History venlafaxine 75 mg tablet 150 mg PO QHS DEPRESSION 05/29/23 07/20/24 History carvedilol 25 mg tablet (Coreg) 25 mg PO BIDCM HEART 10/24/23 07/20/24 History fluticasone 500 mcg-salmeterol 50 1 ea inhalation BID Asthma 04/25/24 04/25/24 History mcg/dose blistr powdr for inhalation (Advair Diskus) levothyroxine 125 mcg tablet 125 mcg PO DAILY Hypothyroidism 04/25/24 07/20/24 History ascorbic acid (vitamin C) 500 mg 500 mg PO DAILY Supplement 05/01/24 Unknown History tablet calcium 600 mg (as 1 tab PO DAILY Supplement 05/01/24 Unknown History carbonate)-vitamin D3 5 mcg (200 unit) tablet (Calcium 600 + D(3)) cetirizine 10 mg capsule (All Day 10 mg PO DAILY Allergies 05/01/24 Unknown History Allergy (cetirizine)) cholecalciferol (vitamin D3) 50 50 mcg PO DAILY Supplement 05/01/24 Unknown History mcg (2,000 unit) tablet (Vitamin D3) docusate sodium 100 mg capsule 100 mg PO BID Constipation 05/01/24 Unknown History magnesium oxide 400 mg PO DAILY Supplement 05/01/24 Unknown History zinc acetate 50 mg (zinc) capsule 50 mg PO DAILY Supplement 05/01/24 Unknown History (Galzin) acetaminophen 500 mg tablet 1,000 mg (2 x 500 mg) PO Q8 pain 05/12/24 Unknown Rx #0 tabs hydrocodone 7.5 mg-acetaminophen 1 tab PO Q8H PRN pain 07/21/24 Unknown History 325 mg tablet Allergy/AdvReac Type Severity Reaction Status Date / Time adhesive Allergy skin Verified 12/26/24 12:55 irritation amlodipine (From Norvasc) Allergy tachycardia Verified 12/26/24 12:55 hydromorphone HCl (From Allergy Itching Verified 12/26/24 12:55 Dilaudid) sulfamethoxazole (From Allergy made my Verified 12/26/24 12:55 Bactrim) cold sore huge trimethoprim (From Bactrim) Allergy made my Verified 12/26/24 12:55 cold sore huge Family History Grandfather Alcoholism Grandmother Myocardial infarction Mother Arthritis Diverticulitis COPD (chronic obstructive pulmonary disease) Afib Thyroid disorder Father Arthritis Diabetes Myocardial infarction Heart disease Ischemic Hypertension Hyperlipidemia Brother Arthritis Aunt Breast cancer Sister Arthritis Thyroid disorder Skin cancer Uncle Diabetes Surgical History History of angioplasty of peripheral vessel (2010) History of left heart catheterization (2011) History of trigger finger Ankle fracture Strangulated ventral hernia History of back surgery Fracture of left femur History of ventral hernia repair History of intestine removal History of arthroscopic knee surgery History of bilateral knee replacement History of cholecystectomy History of carpal tunnel release History of tonsillectomy and adenoidectomy Social History household members: none Smoking Status: Former smoker how long ago did patient quit smokin alcohol intake: never substance use type: does not use what type of physical activity do you participate in: other ROS <Dr. Addy Choi MD - Last Filed: 12/26/24 19:21> ROS ED Constitutional Constitutional ED: Reports chills, fever(s), subjective and sweats; Denies weight loss Eyes Eyes: Denies blurry vision, change in vision or diplopia ENT ENT ED: Reports other Details: Patient endorses thirst and dry mouth. ; Denies ear pain, rhinorrhea or sore throat Cardiovascular Cardiovascular: Reports other Details: Patient endorses orthostatic lightheadedness. ; Denies chest pain, orthopnea, palpitations, paroxysmal nocturnal dyspnea or racing heartbeat Respiratory/Chest Respiratory/Chest: Reports cough and dyspnea; Denies dyspnea on exertion, orthopnea or paroxysmal nocturnal dyspnea Gastrointestinal Gastrointestinal: Reports nausea and vomiting; Denies abdominal pain, constipation, diarrhea or melena Genitourinary Genitourinary ED: Denies dysuria, hematuria or urinary frequency Musculoskeletal Musculoskeletal: Reports back pain and other Details: Back pain is chronic. ; Denies arthralgias, myalgias or neck pain Integumentary Denies rash Neurologic Neurologic: Reports weakness; Denies headache(s) or paresthesias Psychiatric Psychiatric: Reports anxiety Endocrine Endocrinology: Denies cold intolerance or heat intolerance Hematologic/Lymphatic Hematologic/Lymphatic: Reports systems reviewed and no addt'l complaints, except as documented EXAM <Dr. Addy Choi MD - Last Filed: 12/26/24 19:21> Physical Exam Const Vital Signs: 12/26/24 12:55 12/26/24 16:09 12/26/24 16:09 Temperature 97.2 F L Temperature Source Temporal Pulse Rate 76 73 Respiratory Rate 16 16 Blood Pressure 111/92 H Blood Pressure Mean 98 Pulse Ox 98 96 Oxygen Delivery Method Room Air 12/26/24 16:40 12/26/24 17:05 12/26/24 17:05 Temperature Temperature Source Pulse Rate 74 78 Respiratory Rate 18 Blood Pressure 56/37 L Blood Pressure Mean 43 Pulse Ox 97 Oxygen Delivery Method Room Air 12/26/24 17:07 12/26/24 17:15 12/26/24 17:41 Temperature Temperature Source Pulse Rate 75 74 85 Respiratory Rate 25 H 16 12 Blood Pressure 89/58 L Blood Pressure Mean 69 Pulse Ox Oxygen Delivery Method 12/26/24 17:45 12/26/24 17:47 12/26/24 18:00 Temperature 97.4 F L Temperature Source Oral Pulse Rate 80 83 Respiratory Rate 24 H 23 H Blood Pressure 74/51 L 74/51 L 72/44 L Blood Pressure Mean 60 58 54 Pulse Ox 98 Oxygen Delivery Method Room Air 12/26/24 18:00 12/26/24 18:15 12/26/24 18:30 Temperature Temperature Source Pulse Rate 84 82 Respiratory Rate 15 19 H Blood Pressure 72/44 L 80/66 L 82/56 L Blood Pressure Mean 54 73 65 Pulse Ox Oxygen Delivery Method 12/26/24 18:45 12/26/24 18:47 12/26/24 18:53 Temperature 97.7 F L Temperature Source Oral Pulse Rate 84 84 Respiratory Rate 21 H 19 H Blood Pressure 85/76 L 95/81 H Blood Pressure Mean 81 85 Pulse Ox 97 Oxygen Delivery Method Room Air 12/26/24 19:00 Temperature Temperature Source Pulse Rate 85 Respiratory Rate 19 H Blood Pressure 95/81 H Blood Pressure Mean 88 Pulse Ox Oxygen Delivery Method Positive well nourished and well developed Constitutional Narrative: Vital signs noted. Patient's BMI is greater than 40. The triage nurse was read. General Appearance ED: well developed and pallor; Negative for cyanotic, diaphoretic or NAD HEENT Reports dry mucous membranes HEENT Narrative: Posterior pharynx is normal. Uvula is midline. Ears normal. Nares patent. Mouth ED: Yes dry mucous membranes Mouth: dry mucous membranes Eyes PERRL and EOMs intact bilaterally General Eye ED: Yes scleral icterus; Negative for pale conjunctiva Neck no lymphadenopathy, supple and no JVD Chest Wall inspection of chest normal and palpation of chest normal Resp normal respiratory effort Auscultation: wheezes expiratory wheezes and throughout Cardio regular rate, regular rhythm, S1 normal heart sound, S2 normal heart sound and no murmurs GI normal to inspection, nondistended, normoactive bowel sounds, non-tender, non-distended and no masses; Negative for hepatosplenomegaly GI Narrative: Difficult to assess for Passman megaly or abdominal mass due to body habitus. Extremity normal to inspection General Extremety ED: Yes edema; Negative for tenderness General Extremity: edema Neuro oriented x3, CN's II-XII intact bilaterally and no sensory deficits noted Sensorium / Orientation: alert Sensory Exam: sensory level loss detected Psych Mood & Affect: depressed Skin no rashes or lesions noted, no wounds and No skin turgor normal General Skin Exam: pallor; Negative for elasticity normal or jaundice <Dr. Derick Alcantara MD - Last Filed: 12/26/24 19:10> Physical Exam Const Vital Signs: 12/26/24 12:55 12/26/24 16:09 12/26/24 16:09 Temperature 97.2 F L Temperature Source Temporal Pulse Rate 76 73 Respiratory Rate 16 16 Blood Pressure 111/92 H Blood Pressure Mean 98 Pulse Ox 98 96 Oxygen Delivery Method Room Air 12/26/24 16:40 12/26/24 17:05 12/26/24 17:05 Temperature Temperature Source Pulse Rate 74 78 Respiratory Rate 18 Blood Pressure 56/37 L Blood Pressure Mean 43 Pulse Ox 97 Oxygen Delivery Method Room Air 12/26/24 17:07 12/26/24 17:15 12/26/24 17:41 Temperature Temperature Source Pulse Rate 75 74 85 Respiratory Rate 25 H 16 12 Blood Pressure 89/58 L Blood Pressure Mean 69 Pulse Ox Oxygen Delivery Method 12/26/24 17:45 12/26/24 17:47 12/26/24 18:00 Temperature 97.4 F L Temperature Source Oral Pulse Rate 80 83 Respiratory Rate 24 H 23 H Blood Pressure 74/51 L 74/51 L 72/44 L Blood Pressure Mean 60 58 54 Pulse Ox 98 Oxygen Delivery Method Room Air 12/26/24 18:00 12/26/24 18:15 12/26/24 18:30 Temperature Temperature Source Pulse Rate 84 82 Respiratory Rate 15 19 H Blood Pressure 72/44 L 80/66 L 82/56 L Blood Pressure Mean 54 73 65 Pulse Ox Oxygen Delivery Method 12/26/24 18:45 12/26/24 18:47 12/26/24 18:53 Temperature 97.7 F L Temperature Source Oral Pulse Rate 84 84 Respiratory Rate 21 H 19 H Blood Pressure 85/76 L 95/81 H Blood Pressure Mean 81 85 Pulse Ox 97 Oxygen Delivery Method Room Air 12/26/24 19:00 Temperature Temperature Source Pulse Rate 85 Respiratory Rate 19 H Blood Pressure 95/81 H Blood Pressure Mean 88 Pulse Ox Oxygen Delivery Method MDM <Dr. Addy Choi MD - Last Filed: 12/26/24 19:21> [facility] MDM Narrative Medical decision making narrative: Patient with viral-like symptoms that are affecting the respiratory and GI systems. Clinically patient is dehydrated. 1 L normal saline was ordered. Because of the wheezing albuterol was ordered. Clinically patient appears anemic. CBC was obtained assess H&H as well as white count differential. BMP was obtained to assess BUN to creatinine ratio as well as CO2 and anion gap. Lab Data Lab results narrative: H&H July 24, 2024 was 11 and 33.9. MCV is elevated 102.9. This may indicate B12 or folate deficiency. This may also contribute to her shortness of breath and not feeling well with fatigue. Electrolyte panel reveals significant rise in BUN and creatinine. On July 24 BUN/creatinine were 10 and 0.83. Today they are 47 and 2.2. This would confirm my clinical suspicion of dehydration. Estimated GFR is now 24. It was 73. Patient's albumin is low. H&H today is 7.2 and 24.6 which is a significant drop. Labs: Laboratory Results - last 24 hr 12/26/24 12/26/24 12/26/24 14:00 16:23 16:40 WBC 12.6 H RBC 2.39 L Hgb 7.2 L Hct 24.6 L MCV 102.9 H MCH 30.1 MCHC 29.3 L RDW Std Deviation 64.0 H RDW Coeff of Lencho 16.9 H Plt Count 150 MPV 9.8 Immature Gran % (Auto) 0.800 Neut % (Auto) 87.7 H Lymph % (Auto) 5.8 L Harney % (Auto) 4.5 Eos % (Auto) 0.9 Baso % (Auto) 0.3 Absolute Neuts (auto) 11.1 H Absolute Lymphs (auto) 0.73 L Nucleated RBC % 0 Sodium 132 L Potassium 4.5 Chloride 107 Carbon Dioxide 17.0 L Anion Gap 9 BUN 47 H Creatinine 2.20 H Est GFR (MDRD) Af Amer 29 L Est GFR (MDRD) Non-Af 24 L BUN/Creatinine Ratio 21.4 H Glucose 83 Lactic Acid 1.0 Calcium 9.3 Total Bilirubin 0.30 AST 22 ALT 20 Alkaline Phosphatase 87 Total Protein 5.9 L Albumin 2.0 L Globulin 3.9 Albumin/Globulin Ratio 0.5 L Vitamin B12 943 H Folate 62.80 H Urine Color Urine Clarity Urine pH Ur Specific [place] Urine Protein Urine Glucose (UA) Urine Ketones Urine Occult Blood Urine Nitrite Urine Bilirubin Urine Urobilinogen Ur Leukocyte Esterase Urine RBC Urine WBC Ur Squamous Epith Cells Amorphous Sediment Urine Bacteria Urine Mucus POC Glucose 84 Blood Type A POSITIVE Antibody Screen NEGATIVE 12/26/24 18:15 WBC RBC Hgb Hct MCV MCH MCHC RDW Std Deviation RDW Coeff of Lencho Plt Count MPV Immature Gran % (Auto) Neut % (Auto) Lymph % (Auto) Harney % (Auto) Eos % (Auto) Baso % (Auto) Absolute Neuts (auto) Absolute Lymphs (auto) Nucleated RBC % Sodium Potassium Chloride Carbon Dioxide Anion Gap BUN Creatinine Est GFR (MDRD) Af Amer Est GFR (MDRD) Non-Af BUN/Creatinine Ratio Glucose Lactic Acid Calcium Total Bilirubin AST ALT Alkaline Phosphatase Total Protein Albumin Globulin Albumin/Globulin Ratio Vitamin B12 Folate Urine Color Yellow Urine Clarity Sl. Cloudy Urine pH 5.0 Ur Specific [place] 1.015 Urine Protein 30 H Urine Glucose (UA) Normal Urine Ketones Negative Urine Occult Blood 10 H Urine Nitrite Negative Urine Bilirubin Negative Urine Urobilinogen Normal Ur Leukocyte Esterase Negative Urine RBC 0-5 SEEN Urine WBC 0-5 SEEN Ur Squamous Epith Cells 0-5 SEEN Amorphous Sediment 1+ URATE Urine Bacteria 0 SEEN Urine Mucus 0 SEEN POC Glucose Blood Type Antibody Screen Radiography Chest X-Ray - ED: 1 View (Single view portable chest x-ray obtained after subclavian line placed by Dr. Alcantara. Central line is in proper position. There is no evidence of pneumothorax.), 2 View (2 view x-ray reveals evidence of pneumoperitoneum.) and Read by ED Physician (Both x-rays independently interpreted by me.) Diagnostic Testing: CT reveals pneumoperitoneum. The surgeon was paged to let him know that has been completed. Management Discussion w/another healthcare provider: Film Vault Supervisor (Spoke with Dr. Ramirez. He was informed of patient's presentation and recent I got a chest x-ray. He was informed that she is hemodynamically stable. Will place central line. He requested CT without contrast to determine site of perforation.) and Radiologist (The radiologist contacted me at 1918 to inform you that she has a pneumoperitoneum. Radiology was informed that the surgeon has seen her and she is going to the OR.) Treatment and Re-Evaluation :: Nurse told me that she has been hypotensive. Dyspnea fluids were ordered. She is not complain of abdominal pain. She was reexamined. Patient now has findings consistent with perforation i.e. peritonitis/surgical abdomen. She will receive 4.5 g of Zosyn. Sheriff was ordered for accurate I's and O's. Comments:: Patient's pressure improved after second liter to 95 systolic. Levophed was ordered in the event that she becomes hypotensive again. <Dr. Derick Alcantara MD - Last Filed: 12/26/24 19:10> [facility] Lab Data Labs: Laboratory Results - last 24 hr 12/26/24 12/26/24 12/26/24 14:00 16:23 16:40 WBC 12.6 H RBC 2.39 L Hgb 7.2 L Hct 24.6 L MCV 102.9 H MCH 30.1 MCHC 29.3 L RDW Std Deviation 64.0 H RDW Coeff of Lencho 16.9 H Plt Count 150 MPV 9.8 Immature Gran % (Auto) 0.800 Neut % (Auto) 87.7 H Lymph % (Auto) 5.8 L Harney % (Auto) 4.5 Eos % (Auto) 0.9 Baso % (Auto) 0.3 Absolute Neuts (auto) 11.1 H Absolute Lymphs (auto) 0.73 L Nucleated RBC % 0 Sodium 132 L Potassium 4.5 Chloride 107 Carbon Dioxide 17.0 L Anion Gap 9 BUN 47 H Creatinine 2.20 H Est GFR (MDRD) Af Amer 29 L Est GFR (MDRD) Non-Af 24 L BUN/Creatinine Ratio 21.4 H Glucose 83 Lactic Acid 1.0 Calcium 9.3 Total Bilirubin 0.30 AST 22 ALT 20 Alkaline Phosphatase 87 Total Protein 5.9 L Albumin 2.0 L Globulin 3.9 Albumin/Globulin Ratio 0.5 L Vitamin B12 943 H Folate 62.80 H Urine Color Urine Clarity Urine pH Ur Specific [place] Urine Protein Urine Glucose (UA) Urine Ketones Urine Occult Blood Urine Nitrite Urine Bilirubin Urine Urobilinogen Ur Leukocyte Esterase Urine RBC Urine WBC Ur Squamous Epith Cells Amorphous Sediment Urine Bacteria Urine Mucus POC Glucose 84 Blood Type A POSITIVE Antibody Screen NEGATIVE 12/26/24 18:15 WBC RBC Hgb Hct MCV MCH MCHC RDW Std Deviation RDW Coeff of Lencho Plt Count MPV Immature Gran % (Auto) Neut % (Auto) Lymph % (Auto) Harney % (Auto) Eos % (Auto) Baso % (Auto) Absolute Neuts (auto) Absolute Lymphs (auto) Nucleated RBC % Sodium Potassium Chloride Carbon Dioxide Anion Gap BUN Creatinine Est GFR (MDRD) Af Amer Est GFR (MDRD) Non-Af BUN/Creatinine Ratio Glucose Lactic Acid Calcium Total Bilirubin AST ALT Alkaline Phosphatase Total Protein Albumin Globulin Albumin/Globulin Ratio Vitamin B12 Folate Urine Color Yellow Urine Clarity Sl. Cloudy Urine pH 5.0 Ur Specific [place] 1.015 Urine Protein 30 H Urine Glucose (UA) Normal Urine Ketones Negative Urine Occult Blood 10 H Urine Nitrite Negative Urine Bilirubin Negative Urine Urobilinogen Normal Ur Leukocyte Esterase Negative Urine RBC 0-5 SEEN Urine WBC 0-5 SEEN Ur Squamous Epith Cells 0-5 SEEN Amorphous Sediment 1+ URATE Urine Bacteria 0 SEEN Urine Mucus 0 SEEN POC Glucose Blood Type Antibody Screen Procedures <Dr. Addy Choi MD - Last Filed: 12/26/24 19:21> Other Procedures Procedure(s): Left subclavian line was placed by Dr. Alcantara. He adhered to sterile procedures and hospital policy. The left subclavian line was successfully cannulated. Triple-lumen was placed per Seldinger technique. <Dr. Derick Alcantara MD - Last Filed: 12/26/24 19:10> Other Procedures Procedure(s): Central line placement: Central line indicated due to hypotension. Informed consent obtained all questions answered. Left subclavian vein site prepped and draped in a sterile fashion, full body sheet placed, locally anesthetized with 4 cc of plain 1% lidocaine, found dark red nonpulsatile blood via finder needle on initial attempt. 20 cm triple-lumen catheter placed via modified Seldinger technique, all 3 ports edwina back dark red nonpulsatile blood and flushed easily. Chlorhexidine disc placed at the site of entry against the skin, sutured into place, and dressed with a Tegaderm. 1 view chest x-ray confirms placement and no sign of pneumothorax/complication on my interpretation. Tolerated well, no complications. <Dr. Addy Choi MD - Last Filed: 12/26/24 19:21> Critical Care Time Critical Care Time: Yes Critical care time (excluding procedures): 30-74 minutes (37), Including time spent: (History, physical, documentation, repeat examination, treatment for hypotension due to pneumoperitoneum), Discussing w/Patient &/or Family/Sea Air Land Officer, Discussing w/Consultants, Arranging Admission or Transfer and Performing Direct Patient Care at Bedside Discharge Plan Triage Chief Complaint: Nausea/Vomiting ED Provider: Addy Choi Dx/Rx/DC Orders Clinical Impression: Pneumoperitoneum, Atherosclerosis of coronary artery without angina pectoris, History of CVA (cerebrovascular accident), Acute anemia, Macrocytic anemia, COPD (chronic obstructive pulmonary disease), Type 2 diabetes mellitus with hyperglycemia, Acute hypotension, Nausea vomiting and diarrhea, ARTIE (acute kidney injury) Prescriptions: No Action Januvia 50 mg tablet 50 mg PO DAILY rosuvastatin [Crestor] 20 mg tablet 20 mg PO QHS pregabalin 100 mg capsule 100 mg PO DAILY pantoprazole 40 MG tablet 40 mg PO BID amitriptyline 25 MG tablet 25 mg PO QHS duloxetine 60 MG capsule 60 mg PO BID Entresto 49-51 mg Tablet 1 tab PO BID alendronate 70 MG tablet 70 mg PO TU aspirin 81 MG tablet,delayed release (DR/EC) 81 mg PO DAILY@0800 dicyclomine 20 mg Tablet 20 mg PO TIDCM Eliquis 5 mg Tablet 5 mg PO BID 30 Days Qty: 60 0RF Patient Comments: Start taking May 03, 2024 carvedilol [Coreg] 25 mg tablet 25 mg PO BIDCM benzonatate 100 mg capsule 100 - 200 mg PO Q8H PRN (Reason: COUGH ) venlafaxine 75 mg tablet 150 mg PO QHS levothyroxine 125 mcg tablet 125 mcg PO DAILY fluticasone propion-salmeterol [Advair Diskus] 500-50 mcg/dose blister with device 1 ea inhalation BID docusate sodium 100 mg capsule 100 mg PO BID ascorbic acid (vitamin C) 500 mg tablet 500 mg PO DAILY calcium carbonate-vitamin D3 [Calcium 600 + D(3)] 600 mg-5 mcg (200 unit) tablet 1 tab PO DAILY All Day Allergy (cetirizine) 10 mg capsule 10 mg PO DAILY magnesium oxide 400 mg magnesium tablet 400 mg PO DAILY cholecalciferol (vitamin D3) [Vitamin D3] 50 mcg (2,000 unit) tablet 50 mcg PO DAILY Galzin 50 mg (zinc) capsule 50 mg PO DAILY acetaminophen 500 mg Tablet 1,000 mg PO Q8 Qty: 0 0RF hydrocodone-acetaminophen 7.5-325 mg tablet 1 tab PO Q8H PRN (Reason: pain ) Primary Care Provider: Brandon Torres Referrals: Brandon Torres DO [Primary Care Provider] - Print Language: Indonesian Disposition Disposition: Acute Care Hospital [facility]
[2024-12-26] MEDS: Albuterol 2.5 MG/3 ML VIAL.NEB. INHALATION ×3 (16:05→17:03)
[2024-12-26] MEDS: Ipratropium/Albuterol Sulfate 3 ML AMPUL.NEB INHALATION (16:05)
[2024-12-26] MEDS: 0.9% Normal Saline (1000mL) 1,000 ML 1000 ML IV ×2 (16:30→18:15)
[2024-12-26 16:43] LABS: Bedside Glucose 84 mg/dL (74-106)
--- NOTE | 2024-12-26 17:24 | RAD_ITS ---
PROCEDURE: CHEST PA AND LATERAL REASON FOR EXAM: 63-year-old female, coughing and wheezing. TECHNIQUE: Frontal and lateral views of the chest. COMPARISON: Chest radiograph 07/21/2024. CTA chest, abdomen and pelvis 10/2023. FINDINGS: The cardiomediastinal silhouette is stable. Unchanged soft tissue density within the medial right upper lobe with volume loss and elevation of the right hemidiaphragm. Linear lucency along the right hemidiaphragm, which may correlate with the right minor fissure on comparison CT chest. Bibasilar atelectasis. No pleural effusion or pneumothorax. Degenerative changes are identified within the thoracic spine. RAD/Chest PA and Lateral IMPRESSION: Linear lucency along the right hemidiaphragm, which may correlate with the righ t minor fissure, however pneumoperitoneum could have similar appearance. CT abdomen pelvis already ordered by provider. Findi ngs compatible with history of treated right upper lobe lung cancer. Reading Location: [id number]
[2024-12-26 17:32] LABS: Vitamin B12 943 pg/mL (211-911)
--- NOTE | 2024-12-26 18:04 | CT_ITS ---
PROCEDURE: ABDOMEN/PELVIS WITHOUT CONT REASON FOR EXAM: 63-year-old female, concern for pneumoperitoneum on x-ray. Nausea and vomiting, decreased appetite and urination. TECHNIQUE: Abdomen and pelvis CT without intravenous contrast. No oral contrast. COMPARISON: Same day chest radiograph, CT chest, abdomen and pelvis 10/2023. FINDINGS: Noncontrast technique limits evaluation of the abdominal and pelvic viscera. Lung bases: Numerous bibasilar pulmonary nodules and ground-glass opacities, [id number]. The heart is normal in size with coronary artery calcifications. Liver: The unopacified liver is normal in size. No biliary ductal dilation. Gallbladder: Prior cholecystectomy. Spleen: Unremarkable. Pancreas: Diffuse pancreatic atrophy. Adrenals: Unremarkable. Kidneys: No hydronephrosis or nephrolithiasis. Bladder: Decompressed by indwelling Sheriff catheter. Reproductive Organs: Prior hysterectomy. Bowel: Prior resection and anastomosis within the distal colon. Moderate volume pneumoperitoneum within the right upper quadrant and anterior mesentery, greatest adjacent to the transverse colon at midline. Additional small volume pneumoperitoneum surrounding the distended stomach. The bowel loops are otherwise normal in caliber. No ascites. Normal appendix. Lymph nodes: No suspicious lymph node enlargement. Vasculature: Moderate calcific plaque of the aortoiliac vessels. Bones/soft tissues: Calcification along the ventral midline abdominal wall, compatible with prior hernia surgery. Partially visualized prior intramedullary jacqueline fixation of the right femur. Prior posterior lumbar interbody fusion at L5-S1 with stable anterolisthesis. Chronic appearing mild compression fracture deformity of the superior L4 vertebral body endplate. Chronic bilateral rib fracture deformities. CT/Abdomen/Pelvis without Cont IMPRESSION: 1. Moderate volume pneumoperitoneum greatest surrounding the stomach and midlin e transverse colon. 2. Numerous bibasilar pulmonary nodules and ground-glass opacities, most compat ible with pneumonitis/pneumonia. Follow-up chest CT in 3 months is recommended to evaluate for resolution given history of lung cancer. Dr. Patton discussed these findings with Dr. Jimbo MD via telephone at 7:19 pm on 12/26/24. One or more dose reduction techniques were used (e.g., Automated exposure contr ol, adjustment of the mA and/or kV according to patient size, use of iterative reconstruction technique). Reading Location: [facility]
[2024-12-26 18:22] LABS: Bacteria 0 SEEN /hpf (None Seen); Mucous, Urine 0 SEEN /hpf (<or=2+)
[2024-12-26 18:24] LABS: Color, Urine Yellow (Yellow); Glucose, Dipstick Normal (Normal); Ketone-Dipstick Negative (Negative); Nitrite-Dipstick Negative (Negative); Occult Blood-Urine 10 /ul (Negative); Protein-Dipstick 30 mg/dl (Negative); Specific Gravity, Urine 1.015 (1.002-1.030); Urine Bilirubin Dipstick Negative (Negative); Urine Clarity Sl. Cloudy (Clear); Urine Urobilinogen Normal (Normal)
--- NOTE | 2024-12-26 18:38 | ED.RN ---
IV ABX not on time due to central line placement
--- NOTE | 2024-12-26 18:45 | RAD_ITS ---
PROCEDURE: CHEST 1 VIEW (PORTABLE) REASON FOR EXAM: 63-year-old female, evaluate central line positioning. TECHNIQUE: Frontal view of the chest. COMPARISON: Same day chest radiograph and CT abdomen pelvis FINDINGS: Interval left peripherally inserted central catheter with catheter tip overlying the SVC. The cardiomediastinal silhouette is stable. Stable right apical pulmonary opacity, compatible with radiation fibrosis. Stable moderate pneumoperitoneum along the right hemidiaphragm, better evaluated on recent CT. Degenerative changes are identified within the thoracic spine. RAD/Chest 1 View (Portable) IMPRESSION: Interval left PICC as described. Stable moderate pneumoperitoneum, better eval uated on recent CT. Reading Location: [id number]
[2024-12-26 18:49] LABS: Amorphous Sediment 1+ URATE; Leukocyte Esterase-Dipstick Negative /ul (Negative); Red Blood Cells-Urine 0-5 SEEN /hpf (0-5); Squamous Epithelial Cells - UA 0-5 SEEN /hpf (5-10); White Blood Cells 0-5 SEEN /hpf (0-5)
[2024-12-26] MEDS: Piperacil/Tazobactam 4.5 GM in 0.9% Normal Saline (100mL MB+) 100 ML IV (19:22)
--- NOTE | 2024-12-26 19:32 | PCM.HP.STD ---
HPI - General General Date of Admission: 12/26/24 Date of Service: 12/26/24 Chief Complaint: Acute abdominal pain/free intraperitoneal air HPI Narrative BILL CHOI, is a 63 F with numerous medical problems including diabetes, COPD, chronic heart failure, MRSA, peripheral vascular disease, GERD, hypertension and history of a stroke. She presented to the emergency department with nausea vomiting and decreased appetite. This has been occurring for several days. She has been recently treated for presumed pneumonia. She states that she just recently completed a round of steroids. She states that she has had several episodes of emesis and has had very little oral intake. While seen in the emergency department it was noted that she became somewhat hypotensive. Chest x-ray was performed around that time. As well and it was noted that she had free air underneath the hemidiaphragm mostly on the right. She did respond to fluids. The ER staff placed a central line. I was contacted by Dr. Choi of the x-ray findings of free air. I advised getting a CT scan stat to evaluate source of perforation for surgical planning purposes. Clinically she is more stable. She is on blood thinners. She states that she took her Eliquis this morning. At the present time she endorses upper abdominal pain. [facility] Medical History Nondisplaced fracture of fifth right metatarsal bone Anemia History of type 2 diabetes mellitus History of hypertension Right femoral fracture Depression Hypothyroidism History of MRSA infection of lungs Delirium Debility Falls Metabolic encephalopathy Complicated urinary tract infection Acute hypotension Brain TIA Embolic stroke Normocytic anemia History of stroke Diabetes mellitus Hyperlipidemia Hypertension Stroke/cerebrovascular accident Cardiomyopathy Chronic systolic (congestive) heart failure Non-ischemic cardiomyopathy History of CVA (cerebrovascular accident) (2018) Flash pulmonary edema (01/16/21) Peripheral vascular disease History of depression Atherosclerosis of coronary artery without angina pectoris CKD (chronic kidney disease) stage 3, GFR 30-59 ml/min Asthma exacerbation Pulmonary edema Acute respiratory failure with hypoxia Trigeminal trophic syndrome Stomach ulcer Hypothyroidism Osteopenia Osteoarthritis Kidney disease Hyperlipidemia Essential hypertension Chronic headaches GI problem Gallstones History of emotional problems Type 2 diabetes mellitus Carpal tunnel syndrome Bone fracture Asthma Anemia Seasonal allergies Herpes simplex GERD (gastroesophageal reflux disease) Allergic rhinitis Irritable bowel syndrome Gait difficulty Right hemiparesis Debility Osteoporosis Normochromic normocytic anemia Secondary adrenal insufficiency ACTH deficiency Neuropathy Falls Hypotension Carotid artery stenosis Bilateral leg weakness History of ischemic colitis Chronic constipation with suspected IBS Obesity Hx of diverticulitis of colon History of Clostridium difficile infection Home Medications ?Medication ?Instructions ?Recorded ?Last Taken ?Type pantoprazole 40 mg tablet,delayed 40 mg PO BID GERD 03/29/19 10/24/23 History release amitriptyline 25 mg tablet 25 mg PO QHS MOOD 08/10/19 07/20/24 History rosuvastatin 20 mg tablet (Crestor) 20 mg PO QHS CHOLESTEROL 08/25/19 07/20/24 History sitagliptin phosphate 50 mg tablet 50 mg PO DAILY DIABETES 09/04/19 07/20/24 History (Januvia) duloxetine 60 mg capsule,delayed 60 mg PO BID DEPRESSION 10/19/20 04/25/24 History release pregabalin 100 mg capsule 100 mg PO DAILY PAIN 05/18/21 07/20/24 History sacubitril 49 mg-valsartan 51 mg 1 tab PO BID HEART 02/11/22 07/20/24 History tablet (Entresto) alendronate 70 mg tablet 70 mg PO TU BONES 02/13/22 07/15/24 History aspirin 81 mg tablet,delayed 81 mg PO DAILY@0800 HEART HEALTH 02/15/22 04/25/24 History release dicyclomine 20 mg tablet 20 mg PO TIDCM IRRITABLE BOWELS 09/11/22 07/20/24 History apixaban 5 mg tablet (Eliquis) 5 mg PO BID blood thinner 30 days 09/18/22 07/20/24 Rx #60 tabs benzonatate 100 mg capsule 100 - 200 mg PO Q8H PRN COUGH 05/28/23 Unknown History venlafaxine 75 mg tablet 150 mg PO QHS DEPRESSION 05/29/23 07/20/24 History carvedilol 25 mg tablet (Coreg) 25 mg PO BIDCM HEART 10/24/23 07/20/24 History fluticasone 500 mcg-salmeterol 50 1 ea inhalation BID Asthma 04/25/24 04/25/24 History mcg/dose blistr powdr for inhalation (Advair Diskus) levothyroxine 125 mcg tablet 125 mcg PO DAILY Hypothyroidism 04/25/24 07/20/24 History ascorbic acid (vitamin C) 500 mg 500 mg PO DAILY Supplement 05/01/24 Unknown History tablet calcium 600 mg (as 1 tab PO DAILY Supplement 05/01/24 Unknown History carbonate)-vitamin D3 5 mcg (200 unit) tablet (Calcium 600 + D(3)) cetirizine 10 mg capsule (All Day 10 mg PO DAILY Allergies 05/01/24 Unknown History Allergy (cetirizine)) cholecalciferol (vitamin D3) 50 50 mcg PO DAILY Supplement 05/01/24 Unknown History mcg (2,000 unit) tablet (Vitamin D3) magnesium oxide 400 mg PO DAILY Supplement 05/01/24 Unknown History zinc acetate 50 mg (zinc) capsule 50 mg PO DAILY Supplement 05/01/24 Unknown History (Galzin) hydrocodone 7.5 mg-acetaminophen 1 tab PO Q8H PRN pain 07/21/24 Unknown History 325 mg tablet Allergy/AdvReac Type Severity Reaction Status Date / Time adhesive Allergy skin Verified 12/26/24 12:55 irritation amlodipine (From Norvasc) Allergy tachycardia Verified 12/26/24 12:55 hydromorphone HCl (From Allergy Itching Verified 12/26/24 12:55 Dilaudid) sulfamethoxazole (From Allergy made my Verified 12/26/24 12:55 Bactrim) cold sore huge trimethoprim (From Bactrim) Allergy made my Verified 12/26/24 12:55 cold sore huge Family History Grandfather Alcoholism Grandmother Myocardial infarction Mother Arthritis Diverticulitis COPD (chronic obstructive pulmonary disease) Afib Thyroid disorder Father Arthritis Diabetes Myocardial infarction Heart disease Ischemic Hypertension Hyperlipidemia Brother Arthritis Aunt Breast cancer Sister Arthritis Thyroid disorder Skin cancer Uncle Diabetes Surgical History History of angioplasty of peripheral vessel (2010) History of left heart catheterization (2011) History of trigger finger Ankle fracture Strangulated ventral hernia History of back surgery Fracture of left femur History of ventral hernia repair History of intestine removal History of arthroscopic knee surgery History of bilateral knee replacement History of cholecystectomy History of carpal tunnel release History of tonsillectomy and adenoidectomy Social History household members: none Smoking Status: Former smoker how long ago did patient quit smokin alcohol intake: never substance use type: does not use what type of physical activity do you participate in: other Vital Signs Vital Signs Vital Signs: 12/26/24 12:55 12/26/24 16:09 12/26/24 16:09 Temperature 97.2 F L Temperature Source Temporal Pulse Rate 76 73 Respiratory Rate 16 16 Blood Pressure 111/92 H Blood Pressure Mean 98 Pulse Ox 98 96 Oxygen Delivery Method Room Air 12/26/24 16:40 12/26/24 17:05 12/26/24 17:05 Temperature Temperature Source Pulse Rate 74 78 Respiratory Rate 18 Blood Pressure 56/37 L Blood Pressure Mean 43 Pulse Ox 97 Oxygen Delivery Method Room Air 12/26/24 17:07 12/26/24 17:15 12/26/24 17:41 Temperature Temperature Source Pulse Rate 75 74 85 Respiratory Rate 25 H 16 12 Blood Pressure 89/58 L Blood Pressure Mean 69 Pulse Ox Oxygen Delivery Method 12/26/24 17:45 12/26/24 17:47 12/26/24 18:00 Temperature 97.4 F L Temperature Source Oral Pulse Rate 80 83 Respiratory Rate 24 H 23 H Blood Pressure 74/51 L 74/51 L 72/44 L Blood Pressure Mean 60 58 54 Pulse Ox 98 Oxygen Delivery Method Room Air 12/26/24 18:00 12/26/24 18:15 12/26/24 18:30 Temperature Temperature Source Pulse Rate 84 82 Respiratory Rate 15 19 H Blood Pressure 72/44 L 80/66 L 82/56 L Blood Pressure Mean 54 73 65 Pulse Ox Oxygen Delivery Method 12/26/24 18:45 12/26/24 18:47 12/26/24 18:53 Temperature 97.7 F L Temperature Source Oral Pulse Rate 84 84 Respiratory Rate 21 H 19 H Blood Pressure 85/76 L 95/81 H Blood Pressure Mean 81 85 Pulse Ox 97 Oxygen Delivery Method Room Air 12/26/24 19:00 12/26/24 19:30 Temperature 97.8 F Temperature Source Oral Pulse Rate 85 84 Respiratory Rate 19 H 22 H Blood Pressure 95/81 H 81/58 L Blood Pressure Mean 88 65 Pulse Ox 97 Oxygen Delivery Method Room Air Weight Weight: 200 lb 2.876 oz Body Mass Index (BMI) 33.3 Physical Exam Narrative Patient is awake and alert. She does not appear to be in any acute distress Head is normocephalic and atraumatic. Pupils are equal round and reactive to light. Abdomen is obese. She does have marked tenderness mostly in the upper abdomen in the epigastric region. I do believe that she has a surgical abdomen that corresponds with the free air noted on imaging Results Medical Records Data Attestation: I reviewed the patient's medical records Lab / Micro Data Attestation: I reviewed the patient's lab results. 12/26/24 14:00 12/26/24 14:00 Labs: Laboratory Results - last 24 hr 12/26/24 14:00: WBC 12.6 H, RBC 2.39 L, Hgb 7.2 L, Hct 24.6 L, MCV 102.9 H, MCH 30.1, MCHC 29.3 L, RDW Std Deviation 64.0 H, RDW Coeff of Lencho 16.9 H, Plt Count 150, MPV 9.8, Immature Gran % (Auto) 0.800, Neut % (Auto) 87.7 H, Lymph % (Auto) 5.8 L, Hettinger % (Auto) 4.5, Eos % (Auto) 0.9, Baso % (Auto) 0.3, Absolute Neuts (auto) 11.1 H, Absolute Lymphs (auto) 0.73 L, Nucleated RBC % 0, Sodium 132 L, Potassium 4.5, Chloride 107, Carbon Dioxide 17.0 L, Anion Gap 9, BUN 47 H, Creatinine 2.20 H, Est GFR (MDRD) Af Amer 29 L, Est GFR (MDRD) Non-Af 24 L, BUN/Creatinine Ratio 21.4 H, Glucose 83, Calcium 9.3, Total Bilirubin 0.30, AST 22, ALT 20, Alkaline Phosphatase 87, Total Protein 5.9 L, Albumin 2.0 L, Globulin 3.9, Albumin/Globulin Ratio 0.5 L, Folate 62.80 H 12/26/24 16:23: POC Glucose 84 12/26/24 16:40: Lactic Acid 1.0, Vitamin B12 943 H, Blood Type A POSITIVE, Antibody Screen NEGATIVE 12/26/24 18:15: Urine Color Yellow, Urine Clarity Sl. Cloudy, Urine pH 5.0, Ur Specific [place] 1.015, Urine Protein 30 H, Urine Glucose (UA) Normal, Urine Ketones Negative, Urine Occult Blood 10 H, Urine Nitrite Negative, Urine Bilirubin Negative, Urine Urobilinogen Normal, Ur Leukocyte Esterase Negative, Urine RBC 0-5 SEEN, Urine WBC 0-5 SEEN, Ur Squamous Epith Cells 0-5 SEEN, Amorphous Sediment 1+ URATE, Urine Bacteria 0 SEEN, Urine Mucus 0 SEEN Micro: Microbiology 12/26/24 16:33 Mucosa - Nose SARS-CoV-2, Influenza & RSV (PCR) - Final Imaging Radiology Impression Chest X-Ray 12/26/24 17:24 IMPRESSION: Linear lucency along the right hemidiaphragm, which may correlate with the right minor fissure, however pneumoperitoneum could have similar appearance. CT abdomen pelvis already ordered by provider. Findings compatible with history of treated right upper lobe lung cancer. Reading Location: [facility] Abdomen/Pelvis CT 12/26/24 18:04 IMPRESSION: 1. Moderate volume pneumoperitoneum greatest surrounding the stomach and midline transverse colon. 2. Numerous bibasilar pulmonary nodules and ground-glass opacities, most compatible with pneumonitis/pneumonia. Follow-up chest CT in 3 months is recommended to evaluate for resolution given history of lung cancer. Dr. Patton discussed these findings with Dr. Jimbo MD via telephone at 7:19 pm on 12/26/24. One or more dose reduction techniques were used (e.g., Automated exposure control, adjustment of the mA and/or kV according to patient size, use of iterative reconstruction technique). Reading Location: [facility] Chest X-Ray 12/26/24 18:45 IMPRESSION: Interval left PICC as described. Stable moderate pneumoperitoneum, better evaluated on recent CT. Reading Location: [facility] Assessment & Plan Assessment/Plan (1) Pneumoperitoneum: PLAN: Plan The patient is a 63-year-old female with multiple medical problems who presents with nausea vomiting and was found to have free intraperitoneal air on imaging. She does have an acute abdomen that would warrant surgical exploration. I suspect source may be a perforated gastric ulcer as she admits to taking Motrin daily and just recently completed a course of steroid. In addition to this, the abdominal pain started this evening after coughing. I did offer her diagnostic laparoscopy with possible laparotomy. We did discuss the possibility of colostomy should this instead be a colonic perforation. IV Zosyn was given by the ER staff. Also central line was placed. We will proceed with surgery once the OR team is in place. Charges/Coding Visit Charges Inpatient E&M: 80357 Init Hosp L3
--- NOTE | 2024-12-26 20:00 | PCM.PRE.AN2 ---
ASA Classification* ASA Classification ASA Classification: 4 and E Assessment & Plan Anesthesia* Anesthesia Assessment Anesthesia Assessment: Discussed sedation and/or anesthesia options, risks, benefits, and alternatives with patient/parents/legal guardian/POA. Questions invited. The patient/parents/legal guardian/POA seems to understand and agrees to proceed with anesthesia plan. Reviewed the physical assessment, medical history, allergy history and patient home medications list prior to surgery/procedure/anesthetic and documented any changes. Performed airway and anesthesia risk assessments. Anesthesia Type Anesthesia Type: General History Source History Obtained from:: Patient and Chart Anesthesia Focused Assessment* Temperature: 97.7 F Pulse Rate: 82 Blood Pressure: 86/60 Respiratory Rate: 17 Pulse Ox: 96 Oxygen Delivery Method: Room Air Airway Assessment Mouth opens: 2 cm Mallampati Score: III Teeth Condition: Missing (edentulous) Neck Range of motion (ROM): Limited ROM Focused Labs Anesthesia Preop lab: CBC WBC 12.6 K/mm3 (4.4-11.0) H 12/26/24 14:00 12/26/24 RBC 2.39 M/mm3 (4.2-5.4) L 12/26/24 14:00 12/26/24 Hgb 7.2 g/dL (12.0-15.0) L 12/26/24 14:00 12/26/24 Hct 24.6 % (37-47) L 12/26/24 14:00 12/26/24 Plt Count 150 K/mm3 (150-450) 12/26/24 14:00 12/26/24 CHEMISTRY Potassium 4.5 mmol/L (3.5-5.1) 12/26/24 14:00 12/26/24 Sodium 132 mmol/L (136-145) L 12/26/24 14:00 12/26/24 Magnesium 1.8 mg/dL (1.6-2.6) 07/22/24 05:16 07/22/24 Phosphorus 2.7 mg/dL (2.5-4.9) 07/22/24 05:16 07/22/24 BUN 47 mg/dL (7-18) H 12/26/24 14:00 12/26/24 Creatinine 2.20 mg/dL (0.55-1.02) H 12/26/24 14:00 12/26/24 Glucose 83 mg/dL (74-106) 12/26/24 14:00 12/26/24 POC Glucose 84 mg/dL (74-106) 12/26/24 16:23 12/26/24 TSH 0.232 uIU/mL (0.358-3.740) L 07/22/24 05:16 07/22/24 COAG PT 18.0 SECONDS (11.7-14.9) H 04/25/24 15:35 04/25/24 Pre-Assessment Diagnosis/Proposed Procedure Planned Operative Procedure(s): Diagnostic lap, possible ex lap Anesthesia History Anesthesia History - complaint evaluation supervisor: Anesthesia History - complaint evaluation supervisor Hx Hospitalization No 02/04/21 02:49 Any Problems With Anesthesia No 08/13/19 12:41 Cholinesterase deficiency You/Your Family Experience No 08/13/19 12:41 fever (hyperthermia) with Relationship Recent Exposure to Contagious No 08/13/19 12:41 Disease Does patient have nerve No 08/13/19 12:41 stimulator Patient instructed to have device shut off --Does patient have Pacemaker or ICD? When Was Last Pacemaker Check QUESTION #4 FULL TEXT: You/Your Family Experience fever (hyperthermia) with Anesthesia Last Oral Intake Last Oral intake: Last Oral Intake NPO since Meds taken in AM with sips of water? Meds patient instructed to take am of surgery PONV PONV - complaint evaluation supervisor: PONV - complaint evaluation supervisor Female HX of Motion Sickness HX of N/V After Surgery Non-Smoker Duration of Surgery greater than 60 minutes Number of Risk Factors PONV Score Height & Weight Height & Weight: Anesthesia: Height & Weight Height 5 ft 5 in 12/26/24 12:55 Weight: 90.8 kg 12/26/24 19:27 Body Mass Index (BMI) 33.3 12/26/24 19:27 Respiratory Assessment Respiratory Assessment - complaint evaluation supervisor: Respiratory Tract Infection Hx - complaint evaluation supervisor Hx Respiratory Tract Infection No 08/13/19 12:41 STOP Sleep Apnea STOP Sleep Apnea - complaint evaluation supervisor: STOP Sleep Apnea - complaint evaluation supervisor Hx Hypertension Yes 07/22/24 14:23 Hx Sleep Apnea No 07/21/24 17:32 CPAP No 05/28/23 23:32 BIPAP No 05/28/23 23:32 Do you snore loudly (louder than talking or can be heard Do you often feel tired/ fatigued/ sleepy during daytime? Has anyone observed you stop breathing during sleep? STOP Results QUESTION #5 FULL TEXT : Do you snore loudly (louder than talking or can be heard through closed doors)? Tobacco Use History Tobacco Use History - complaint evaluation supervisor: Tobacco Use History - complaint evaluation supervisor Tobacco Use Non-smoker 09/19/22 17:00 Smoking Status Former smoker 12/26/24 16:42 Hx Tobacco Use No 07/21/24 17:32 Years Smoking Packs Smoked per Day Smoking Cessation Date was No - quit smoking greater 12/26/24 16:42 within the last 15 years than 15 years ago Hx Smoking Cessation Date 06/05/10 12/26/24 16:42 Hx Smoking Cessation No 12/26/24 16:42 Counseling Hematologic Medial History Hematologic Hx - complaint evaluation supervisor: Hematologic Medical Hx - clinical documentation developer Hx of Blood Transfusion Hx of Transfusion in last 3 Months Date of Last Transfusion (if within last 3 months) Ever experience any problems with transfusion(s)? Specify any problems Hx of Preganancy in last 3 Months Nurse Filling Out Transfusion & Questions: Date: Time: Patient unable to answer at this time (ie. confused, unrespo /Reproduction History /Reproductive History - complaint evaluation supervisor: /Reproductive Hx- complaint evaluation supervisor Hx Now Gestational Age (in weeks): EDC: Hx Hx Para Hx Section SAB Active Medications Active Medications: Current Medications Generic Name Dose Route Start Last Admin Trade Name Freq PRN Reason Stop Dose Admin Norepinephrine Bitartrate 8 mg 250 mls @ 9.375 mls/hr 12/26/24 18:45 / Sodium Chloride CONT INF .[id number] [facility] Protocol 5 MCG/MIN PFSH Medical History Nondisplaced fracture of fifth right metatarsal bone Anemia History of type 2 diabetes mellitus History of hypertension Right femoral fracture Depression Hypothyroidism History of MRSA infection of lungs Delirium Debility Falls Metabolic encephalopathy Complicated urinary tract infection Acute hypotension Brain TIA Embolic stroke Normocytic anemia History of stroke Diabetes mellitus Hyperlipidemia Hypertension Stroke/cerebrovascular accident Cardiomyopathy Chronic systolic (congestive) heart failure Non-ischemic cardiomyopathy History of CVA (cerebrovascular accident) (2018) Flash pulmonary edema (01/16/21) Peripheral vascular disease History of depression Atherosclerosis of coronary artery without angina pectoris CKD (chronic kidney disease) stage 3, GFR 30-59 ml/min Asthma exacerbation Pulmonary edema Acute respiratory failure with hypoxia Trigeminal trophic syndrome Stomach ulcer Hypothyroidism Osteopenia Osteoarthritis Kidney disease Hyperlipidemia Essential hypertension Chronic headaches GI problem Gallstones History of emotional problems Type 2 diabetes mellitus Carpal tunnel syndrome Bone fracture Asthma Anemia Seasonal allergies Herpes simplex GERD (gastroesophageal reflux disease) Allergic rhinitis Irritable bowel syndrome Gait difficulty Right hemiparesis Debility Osteoporosis Normochromic normocytic anemia Secondary adrenal insufficiency ACTH deficiency Neuropathy Falls Hypotension Carotid artery stenosis Bilateral leg weakness History of ischemic colitis Chronic constipation with suspected IBS Obesity Hx of diverticulitis of colon History of Clostridium difficile infection Home Medications ?Medication ?Instructions ?Recorded ?Last Taken ?Type pantoprazole 40 mg tablet,delayed 40 mg PO BID GERD 03/29/19 10/24/23 History release amitriptyline 25 mg tablet 25 mg PO QHS MOOD 08/10/19 07/20/24 History rosuvastatin 20 mg tablet (Crestor) 20 mg PO QHS CHOLESTEROL 08/25/19 07/20/24 History sitagliptin phosphate 50 mg tablet 50 mg PO DAILY DIABETES 09/04/19 07/20/24 History (Januvia) duloxetine 60 mg capsule,delayed 60 mg PO BID DEPRESSION 10/19/20 04/25/24 History release pregabalin 100 mg capsule 100 mg PO DAILY PAIN 05/18/21 07/20/24 History sacubitril 49 mg-valsartan 51 mg 1 tab PO BID HEART 02/11/22 07/20/24 History tablet (Entresto) alendronate 70 mg tablet 70 mg PO TU BONES 02/13/22 07/15/24 History aspirin 81 mg tablet,delayed 81 mg PO DAILY@0800 HEART [facility] 02/15/22 04/25/24 History release dicyclomine 20 mg tablet 20 mg PO TIDCM IRRITABLE BOWELS 09/11/22 07/20/24 History apixaban 5 mg tablet (Eliquis) 5 mg PO BID blood thinner 30 days 09/18/22 12/26/24 Rx #60 tabs benzonatate 100 mg capsule 100 - 200 mg PO Q8H PRN COUGH 05/28/23 Unknown History venlafaxine 75 mg tablet 150 mg PO BID DEPRESSION 05/29/23 07/20/24 History carvedilol 25 mg tablet (Coreg) 25 mg PO BIDCM HEART 10/24/23 07/20/24 History fluticasone 500 mcg-salmeterol 50 1 ea inhalation BID Asthma 04/25/24 04/25/24 History mcg/dose blistr powdr for inhalation (Advair Diskus) levothyroxine 125 mcg tablet 125 mcg PO DAILY Hypothyroidism 04/25/24 07/20/24 History ascorbic acid (vitamin C) 500 mg 500 mg PO DAILY Supplement 05/01/24 Unknown History tablet calcium 600 mg (as 1 tab PO DAILY Supplement 05/01/24 Unknown History carbonate)-vitamin D3 5 mcg (200 unit) tablet (Calcium 600 + D(3)) cetirizine 10 mg capsule (All Day 10 mg PO DAILY Allergies 05/01/24 Unknown History Allergy (cetirizine)) cholecalciferol (vitamin D3) 50 50 mcg PO DAILY Supplement 05/01/24 Unknown History mcg (2,000 unit) tablet (Vitamin D3) magnesium oxide 400 mg PO DAILY Supplement 05/01/24 Unknown History zinc acetate 50 mg (zinc) capsule 50 mg PO DAILY Supplement 05/01/24 Unknown History (Galzin) hydrocodone 7.5 mg-acetaminophen 1 tab PO Q8H PRN pain 07/21/24 Unknown History 325 mg tablet Allergy/AdvReac Type Severity Reaction Status Date / Time adhesive Allergy skin Verified 12/26/24 12:55 irritation amlodipine (From Norvasc) Allergy tachycardia Verified 12/26/24 12:55 hydromorphone HCl (From Allergy Itching Verified 12/26/24 12:55 Dilaudid) sulfamethoxazole (From Allergy made my Verified 12/26/24 12:55 Bactrim) cold sore huge trimethoprim (From Bactrim) Allergy made my Verified 12/26/24 12:55 cold sore huge Family History Grandfather Alcoholism Grandmother Myocardial infarction Mother Arthritis Diverticulitis COPD (chronic obstructive pulmonary disease) Afib Thyroid disorder Father Arthritis Diabetes Myocardial infarction Heart disease Ischemic Hypertension Hyperlipidemia Brother Arthritis Aunt Breast cancer Sister Arthritis Thyroid disorder Skin cancer Uncle Diabetes Surgical History History of angioplasty of peripheral vessel (2010) History of left heart catheterization (2011) History of trigger finger Ankle fracture Strangulated ventral hernia History of back surgery Fracture of left femur History of ventral hernia repair History of intestine removal History of arthroscopic knee surgery History of bilateral knee replacement History of cholecystectomy History of carpal tunnel release History of tonsillectomy and adenoidectomy Social History household members: none Smoking Status: Former smoker how long ago did patient quit smokin alcohol intake: never substance use type: does not use what type of physical activity do you participate in: other Review of Systems (Anesthesia) ROS Narrative System reviewed and no additional complaints, except as documented.
[2024-12-26] MEDS: Bupiv/Epi 0.25% 30 ML Vial (21:59)
[2024-12-26] MEDS: Norepinephrine 8 MG in 0.9% Normal Saline (250mL Bag) 242 ML 9.4 MG CONT INF (22:30)
--- NOTE | 2024-12-26 22:40 | PCM.POST.ANE ---
Anesthesia: Postop Eval I Current Vital Signs Temperature: 95.4 F Pulse Rate: 85 Blood Pressure: 86/55 Respiratory Rate: 16 Pulse Ox: 99 Oxygen Delivery Method: Nasal Cannula Oxygen Flow Rate (L/min): 4 Assessment Airway patent: Yes Spontaneous unlabored respirations: Yes Mental status: Awake and Calm nausea: No Vomiting: No Anesthesia Complication: No Fluid Hydration Crystalloid volume administer (ml): 1,500 Total IV fluid infused: 1,500 Progress Note Anesthesia document: Postop Eval 1 completed: Yes
--- NOTE | 2024-12-26 22:40 | PCM.PN.HOSP ---
Reason for Visit Reason for Visit: Diagnoses Other specified disorders of peritoneum (12/26/24) Subjective Subjective The patient is a 64-year-old female with past medical history chronic anemia, hypertension, hyperlipidemia, anxiety and depression, hypothyroidism, diabetes mellitus type 2, history CVA with right-sided hemiparesis, HFrEF, CKD stage III unclear subtype, asthma/COPD with allergic rhinitis, GERD, secondary adrenal insufficiency, history of previous clustering of distal infection who presented to the [facility] ED on 12/26/2024 with sharp abdominal crampy discomfort with nausea and emesis starting on 12/24/2024 noted to be continuous with also waxing and waning symptoms with lightheadedness especially with movement and decreased urine output with no black or maroon-colored stools nor any blood or mucus in the stool and no evidence of any hematemesis or coffee-ground emesis but did report mild shortness of breath, occasional wheezing as well as rhinorrhea that she has had for several weeks prompting eventual ED evaluation to be cautious. In the ED patient had left subclavian line placed given norepinephrine requirement. Patient did report recent history of frequent Motrin as well as a recent steroid regimen secondary to URI. Workup in the ED included T97.2, heart rate 76, BP 111/93, respiratory 16, 98 % room air however patient decompensated while in the ED with onset significant hypotension with blood pressure dropping to 56/37 requiring initiation of norepinephrine, CBC with WBC 12.6, hemoglobin 7.2, MCV 102.9, platelet 150 with left shift and lymphopenia, CMP with sodium 132, complex at 17, anion gap 9, BUN/creatinine 47/2.20, GFR 24, lactic acid 1.0, hepatic profile not marked appearing, vitamin B12 943, folic acid 6 2.80, urinalysis unremarkable, chest x-ray with linear lucency along the right hemidiaphragm with recommendation to correlate for right minor fissure however pneumoperitoneum possible and findings also per radiology could be compatible with history of treated right upper lobe lung cancer, follow-up CT abdomen pelvis without contrast with a moderate volume pneumoperitoneum greater surrounding the stomach and midline transverse colon, numerous bibasilar pulmonary nodules and ground-glass opacities compatible with pneumonitis/pneumonia, follow-up CT chest in 3 months recommended, chest x-ray with interval left PICC line placed, stable moderate pneumoperitoneum. Patient evaluated postoperatively in the ICU, currently notes that her abdominal discomfort is dull aching but is improved since initial ED arrival. Patient denies any current fevers, chills, nausea, emesis, chest pain or worsened dyspnea. Objective Data Objective Data Vital Signs: Vital Signs Temp Pulse Resp BP Pulse Ox O2 Del Method 97.7 F L 82 17 86/60 L 96 Room Air 12/26/24 20:01 12/26/24 20:01 12/26/24 20:01 12/26/24 20:01 12/26/24 20:01 12/26/24 20:01 Oxygen Delivery Method Room Air Weight: 200 lb 2.876 oz Body Mass Index (BMI) 33.3 Intake & Output: Intake and Output for Last 24 Hours 12/24/24 12/25/24 12/26/24 23:59 23:59 23:59 Intake Total 1000 / 1000 Balance 1000 / 1000 Lab / Micro Data 12/26/24 14:00 12/26/24 14:00 Labs: Laboratory Results - last 24 hr 12/26/24 14:00: WBC 12.6 H, RBC 2.39 L, Hgb 7.2 L, Hct 24.6 L, MCV 102.9 H, MCH 30.1, MCHC 29.3 L, RDW Std Deviation 64.0 H, RDW Coeff of Lencho 16.9 H, Plt Count 150, MPV 9.8, Immature Gran % (Auto) 0.800, Neut % (Auto) 87.7 H, Lymph % (Auto) 5.8 L, Harvey % (Auto) 4.5, Eos % (Auto) 0.9, Baso % (Auto) 0.3, Absolute Neuts (auto) 11.1 H, Absolute Lymphs (auto) 0.73 L, Nucleated RBC % 0, Sodium 132 L, Potassium 4.5, Chloride 107, Carbon Dioxide 17.0 L, Anion Gap 9, BUN 47 H, Creatinine 2.20 H, Est GFR (MDRD) Af Amer 29 L, Est GFR (MDRD) Non-Af 24 L, BUN/Creatinine Ratio 21.4 H, Glucose 83, Calcium 9.3, Total Bilirubin 0.30, AST 22, ALT 20, Alkaline Phosphatase 87, Total Protein 5.9 L, Albumin 2.0 L, Globulin 3.9, Albumin/Globulin Ratio 0.5 L, Folate 62.80 H 12/26/24 16:23: POC Glucose 84 12/26/24 16:40: Lactic Acid 1.0, Vitamin B12 943 H, Blood Type A POSITIVE, Antibody Screen NEGATIVE 12/26/24 18:15: Urine Color Yellow, Urine Clarity Sl. Cloudy, Urine pH 5.0, Ur Specific [place] 1.015, Urine Protein 30 H, Urine Glucose (UA) Normal, Urine Ketones Negative, Urine Occult Blood 10 H, Urine Nitrite Negative, Urine Bilirubin Negative, Urine Urobilinogen Normal, Ur Leukocyte Esterase Negative, Urine RBC 0-5 SEEN, Urine WBC 0-5 SEEN, Ur Squamous Epith Cells 0-5 SEEN, Amorphous Sediment 1+ URATE, Urine Bacteria 0 SEEN, Urine Mucus 0 SEEN Micro: Microbiology 12/26/24 16:33 Mucosa - Nose SARS-CoV-2, Influenza & RSV (PCR) - Final Radiography Diagnostic Testing: Radiology Impression Chest X-Ray 12/26/24 17:24 IMPRESSION: Linear lucency along the right hemidiaphragm, which may correlate with the right minor fissure, however pneumoperitoneum could have similar appearance. CT abdomen pelvis already ordered by provider. Findings compatible with history of treated right upper lobe lung cancer. Reading Location: [facility] Abdomen/Pelvis CT 12/26/24 18:04 IMPRESSION: 1. Moderate volume pneumoperitoneum greatest surrounding the stomach and midline transverse colon. 2. Numerous bibasilar pulmonary nodules and ground-glass opacities, most compatible with pneumonitis/pneumonia. Follow-up chest CT in 3 months is recommended to evaluate for resolution given history of lung cancer. Dr. Patton discussed these findings with Dr. Jimbo MD via telephone at 7:19 pm on 12/26/24. One or more dose reduction techniques were used (e.g., Automated exposure control, adjustment of the mA and/or kV according to patient size, use of iterative reconstruction technique). Reading Location: [facility] Chest X-Ray 12/26/24 18:45 IMPRESSION: Interval left PICC as described. Stable moderate pneumoperitoneum, better evaluated on recent CT. Reading Location: [facility] Physical Exam Narrative Physical Examination: General: Awake, alert, oriented x 3 and cooperative, laying in the ICU bed, fatigued, status post recent operative intervention. Skin: Normal color, normal turgor, no icterus, no cyanosis except for status post recent OR with status post diagnostic laparoscopy, exploratory laparotomy, oversew of perforated anterior gastric ulcer along with a modified Jelani patch. HEENT: AT/NC, EOMI, PERRLA, dry MM, no carotid bruits or JVD noted. Lungs: Diminished, greater bases, mildly increased respiratory rate but no distress, nasal cannula in place, no appreciated rales, ronchi or wheezing. Heart: Regular rate and rhythm; no gallop, rub audible. Abdomen: Soft, expected tenderness to palpation given recent MAR, dressing in place without drainage, difficult to discern distention given pain bulky dressing, difficult discern also HSM given bulky dressing and pain with recent OR. Extremities: No cyanosis, no clubbing, mild bilateral ankle, right greater than left not markedly pitting edema which is chronic. Neurological: Patient awake, alert, oriented as noted, cognitive function intact; pupils equally reactive to light and accommodation, cranial nerves gross normal, moving all 4 extremities but patient does have mild right sided hemiparesis status post previous CVA, strength improved however remains severely globally decreased. Psychiatric: Affect appears flat, fatigued, no acute evidence of depressive or anxiety feelings but does have underlying history. Assessment & Plan Assessment/Plan (1) Perforated gastric ulcer: PLAN: Plan The patient is a 64-year-old female with past medical history chronic anemia, hypertension, hyperlipidemia, anxiety and depression, hypothyroidism, diabetes mellitus type 2, history CVA with right-sided hemiparesis, HFrEF, CKD stage III unclear subtype, asthma/COPD with allergic rhinitis, GERD, secondary adrenal insufficiency, history of previous clustering of distal infection Who presents to the [facility] ED on 12/26/2024 with sharp abdominal crampy discomfort with nausea and emesis starting on 12/24/2024 noted to be continuous with also waxing and waning symptoms with lightheadedness especially with movement and decreased urine output with no black or maroon-colored stools nor any blood or mucus in the stool and no evidence of any hematemesis or coffee-ground emesis but did report mild shortness of breath, occasional wheezing as well as rhinorrhea that she has had for several weeks prompting eventual ED evaluation to be cautious. #1. Presumed hemorrhagic shock given acute on chronic macrocytic anemia secondary to perforated anterior gastric ulcer: Patient status post operative intervention per primary admission service General Surgery Dr. Ramirez, status post diagnostic laparoscopy, exploratory laparotomy, oversew of perforated anterior gastric ulcer along with a modified Jelani patch, admitted to the ICU, recommend manager books involvement, continued on norepinephrine with central line in place, recommend continued IV PPI, NG tube in place, n.p.o. status, pain regimen/antiemetic regimen per surgery discretion. #2. Acute kidney injury on CKD stage III unclear subtype: Secondary to hypovolemic secondary to hemorrhagic shock secondary to #1, admission BUN/Cr 47/2.20, GFR 24, prior baseline creatinine noted to be primarily 0.7-0.8 although has vacillated, will hydrate judiciously, currently maintained on norepinephrine, administer blood as needed, hold nephrotoxic medications and repeat chemistry in AM. #3. Recent acute upper respiratory infection, presumed viral syndrome with CT chest with incidentally noted ground-glass opacities possibly consistent with pneumonitis/pneumonia: Will maintain on oxygen with wean as tolerated to room air, continue ATC duonebs, PRN albuterol, HOB, IS parameters w/ pending sputum cultures, full respiratory viral panel, COVID PCR and urine antigens, procalcitonin. Will add abx therapy if no obvious viral etiology and/or procalcitonin elevated to be cautious. #4. Diabetes mellitus type II with hyperglycemia with chronic neuropathy: Hold oral home regimen, postoperative initial glucose low with repeat improved however we will closely monitor and if reoccurrence low threshold to transition to dextrose fluid supplementation, will maintain on every 6 hours and as needed accu checks w/ ISS. Temporally holding patient home pregabalin regimen. #5. Hx Cardiomyopathy, unclear type: 07/21/2024 echocardiogram with LVEF 60%. Given presentation low threshold to administer PRBC if needed but will need to judiciously perform to avoid overload, currently on norepinephrine, holding all medications including aspirin, NOAC, statin, Entresto, beta-sulaiman therapy given hypotension related with #1, will resume medications once clinically appropriate. #6. History CVA with residual right-sided hemiparesis with right internal carotid artery stenosis 50 to 69%: Holding patient Eliquis especially given recent acute on chronic anemia as noted #1 with gastric ulcer perforation, additionally holding aspirin, statin, hypertensive regimen, diabetic regimen as noted given NG in place with no intake allowance. Will resume agents as oral intake is allowed and antiplatelet therapy/anticoagulant per surgery discretion likely at a later date. #7. Chart reported history of secondary adrenal insufficiency: Noted in chart history but per current list does not appear to be on any chronic steroid regimen, currently patient is hypotensive but appropriate given recent hemorrhagic shock, ideally would avoid steroids especially given likely the source of recent gastric ulcer/perforation coupled with frequent NSAIDs. #8. Hypertension: Temporally holding all hypertensive medication. #9. Hyperlipidemia: Temporally holding patient home statin therapy. #10. Chronic COPD/asthma with allergic rhinitis: Will maintain on oxygen with wean as tolerated to room air/home oxygen supplementation, continue ATC duonebs, PRN albuterol, HOB, IS parameters. #11. Hypothyroidism: Will temporarily hold patient levothyroxine regimen, resume once oral intake cleared per surgery. #12. Anxiety and depression: Temporally holding patient venlafaxine regimen however need to clarify is also on list patient has duloxetine and ideally patient should not be on both these regimens at the same time. #13. Former tobacco use: Encourage continued tobacco cessation. #14. GERD: Given presentation as noted maintain on IV PPI. #15. DVT prophylaxis: Holding NOAC, recommend SCDs. Charges/Coding Visit Charges Inpatient E&M: 46345 Subs Hosp L3
--- NOTE | 2024-12-26 22:41 | PCM.POSTANE2 ---
Anesthesia Postop Eval I Sum Postop Eval Completion status Anesthesia document: Postop Eval 1 completed: Yes Anesthesia Postop Eval I Summary Anesthesia Postop Eval I Summary: Anesthesia Postop Eval I: Assessment Summary Airway patent Yes 12/26/24 22:41 Spontaneous unlabored Yes 12/26/24 22:41 respirations Mental status Awake,Calm 12/26/24 22:41 nausea No 12/26/24 22:41 Vomiting No 12/26/24 22:41 Anesthesia Postop Eval I: Fluid Summary Crystalloid volume administer 1,500 12/26/24 22:41 (ml) Colloids volume administered ( ml) Blood Product volume administered (ml) Total IV fluid infused 1,500 12/26/24 22:41 Anesthesia Postop Eval I: Summary Notes Anesthesia Complication No 12/26/24 22:41 Anesthesia Complication Comment: Post-operative progress note Anesthesia: Postop Eval II Evaluation Mental status: Awake and Calm Pain Level: 0 nausea: No Vomiting: No Complications Anesthesia Complication: No
--- NOTE | 2024-12-26 22:48 | PCM.OPRPT ---
Problems Associated Problem List Diagnoses (1) Perforated gastric ulcer: Multi Select Codes Digestive Digestive CPT Codes: 66918 Repair of stomach lesion Operative Report (Standard) Operative Information Date of Procedure: 12/26/24 Pre-Operative Diagnosis: Free air Post-Operative Diagnosis: Same secondary to perforated gastric ulcer Surgery/Procedure Performed: 1. Diagnostic laparoscopy 2. Exploratory laparotomy 3. Oversew of perforated anterior gastric ulcer along with modified Jelani patch events traffic controller: Yes Sales Architect: Dee Baiely Tasks completed by certified dental assistant: Closing and Retracting Additional customer marketing assistant?: No Type of Anesthesia: General and Local RN Documented Start/Stop Times: Operation Date: 12/26/24 20:15 Case Time Anesthesia Start 12/26/24 20:04 Into Room 12/26/24 20:04 Procedure Start 12/26/24 20:29 Procedure End 12/26/24 22:00 Anesthesia End 12/26/24 22:12 Out of Room 12/26/24 22:12 Procedure Start Time: 20:29 Procedure Stop Time: 22:00 Select all DRAINS/GRAFTS/IMPLANTS that apply: Drains Drain details: 10 Bangladeshi flat PETE drain x 1 Special Medications: Zosyn IV Estimated Blood Loss: 30 mL Specimen collected: No Description of surgery: The patient is a 63-year-old female who presented to the emergency room with nausea, vomiting and abdominal pain. During the workup in the emergency room she became hypotensive and a chest x-ray was performed. This showed free air under the diaphragm. Surgical consult was obtained. I suggested getting a CT scan to localize the site of perforation and quantify the amount of free air. This seemed to indicate source of perforation was more than likely gastric perforation as much of the air was in the anterior abdomen around the stomach and liver. I offered her diagnostic laparoscopy with possible laparotomy. We discussed the details of the planned procedure including the risks benefits and alternatives. She wishes to proceed. Patient was brought to the operating room today following informed consent. She was placed supine the operative table with arms outstretched on arm boards. General anesthesia was induced. Once adequately sedated the abdomen was then prepped and draped in the usual sterile manner. I made a 5 mm incision just above the umbilicus. A 5 mm 0 degree scope was inserted. 5 mm trocar was placed optically. There were no signs of bowel or vascular injury. Initial examination of the abdomen revealed quite a bit of adhesions involving the upper abdomen from a previous open cholecystectomy. There did appear to be some fresh exudate located in the upper abdomen anterior to the stomach. There was really no signs of active infection or inflammation in the lower abdomen. Another 5 mm trocar was placed under direct visualization on the right side of the abdomen. A harmonic scalpel was then inserted and was used to take down some of the adhesions to better visualize the anterior abdominal wall. Again a significant exudate was present. I was unable to effectively locate the point of perforation laparoscopically. I suspected this clearly was an anterior gastric perforation/ulcer. In order to improve visualization, we converted to a midline laparotomy approach. This was performed by making the incision using a #10 blade. Bovie electrocautery was then used dissect down through subtendinous tissues. The abdomen was entered. The stomach was more fully visualized. Again there was significant exudate present. I was eventually able to identify the perforation as the exudate was carefully peeled off of the stomach. This was a very small probably 5 to 6 mm perforation/hole in the anterior body of the stomach near the lesser curvature. This was oversewn using 3-0 silk suture. These were tied down however the ends were then used to secure omentum to the anterior surface of the repair to basically buttress the repair in a modified Jelani patch manner. This closed the site nicely. NG tube was placed prior to closure. The entire abdomen was then copiously irrigated with saline. There is actually minimal if any spillage. A 10 Bangladeshi fully fluted flat PETE drain was laid just anterior to the repair and this was brought out through the right sided 5 mm trocar site. The abdomen is then closed using #1 PDS looped x 2. The 2 sutures were tied to themselves and the knot was buried. 3-0 Vicryl was used to reapproximate the subdermal layer. Skin van were used to close the skin. Dressing was applied. She was awakened from anesthesia and taken to the ICU in stable condition A DIRECTOR GEOPHYSICAL LABORATORY was utilized as a regional administrative assistant. Her role included retraction as well as assistance with abdominal closure Surgical Findings: Small 5 mm anterior gastric perforation with surrounding exudate Complications Complications: No Admit VTE Documentation VTE Present on Admission: No VTE Mechan Device Prophylaxis: SCD's VTE Pharm Prophylaxis ordered?: No Reason prophylaxis not ordered: Treatment Not Indicated
[2024-12-26] MEDS: 0.9% Normal Saline (1000mL) 1,000 ML 100 ML IV (23:28)
[2024-12-26] MEDS: Dextrose 10%-Water 250 ML 999 ML IV (23:41)
[2024-12-27] VITALS (26 sets, daily range): BP systolic 107–172; BP diastolic 72–92; PULSE 83–108; RESP 13–33; TEMP 35.8–36.9; O2SAT 94–100
[2024-12-27 01:36] LABS: Procalcitonin 4.11 ng/mL (0.00-0.09)
[2024-12-27] MEDS: Morphine 2 MG/ML Syringe IV ×4 (02:51→20:42)
[2024-12-27] MEDS: 0.9 % NaCl (Sterile) Posiflush 10 mL IV (02:51)
[2024-12-27 03:06] LABS: Bedside Glucose 139 mg/dL (74-106)
[2024-12-27 05:39] LABS: Absolute Lymphocyte Count 0.16 X10^3/uL (0.83-4.51); Basophil# 0.01 X10^3/uL; Basophil% 0.1 % (0-1); Hematocrit 22.9 % (37-47); Hemoglobin 7.1 g/dL (12.0-15.0); Lymphocyte # 0.16 X10^3/ul (0.83-4.51); Lymphocyte % 2.2 % (19-41); Mean Corpuscular Hgb 30.9 pg (27.0-32.0); Mean Corpuscular Volume 99.6 fL (81-99); Mean Platelet Vol. 9.9 fl (6.2-12.0); Monocyte# 0.07 X10^3/uL; Monocyte% 0.9 % (0-10); NRBC Flagged by Analyzer 0 % (0-5); Neutrophil # 7.04 X10^3/uL (2.7-7.7); Neutrophil % 95.3 % (47-70); POSITIVE DIFFERENTIAL YES; Platelet Count 120 K/mm3 (150-450); RBC Distribution Width CV 16.6 % (11.6-14.6); RBC Distribution Width SD 59.8 fl (35.1-43.9); White Blood Count 7.4 K/mm3 (4.4-11.0)
[2024-12-27 05:46] LABS: Bedside Glucose 113 mg/dL (74-106)
[2024-12-27] MEDS: 0.9% Normal Saline (100mL Bag) 100 ML 15 ML IV ×2 (05:48→14:40)
[2024-12-27] MEDS: Piperacil/Tazobactam 3.375 GM in 0.9% Normal Saline (50mL MB+) 50 ML IV ×3 (05:48→20:42)
[2024-12-27 06:15] LABS: ALB/GLOB Ratio 0.5 RATIO (0.9-2.4); AST(SGOT) 25 U/L (15-37); Alanine Aminotransfer ALT/SGPT 21 U/L (13-56); Albumin, Serum 1.9 g/dL (3.2-5.0); Alkaline Phosphatase 84 U/L (45-117); Anion Gap 8 (5-15); BUN 39 mg/dL (7-18); BUN/Creat Ratio 26.9 RATIO (10-20); Calcium,Total 8.4 mg/dL (8.5-10.1); Chloride 109 mmol/L (98-107); Creatinine, Serum 1.45 mg/dL (0.55-1.02); EST Glomerular Filtration Rate 39 mL/min (>60); Est Glom Filt Rate - Afr Amer 47 mL/min (>60); Estimated Creatinine Clearance 43.73 ml/min; Globulin 3.7 g/dL (2.2-4.2); Glucose 138 mg/dL (74-106); Potassium 4.8 mmol/L (3.5-5.1); Protein, Total 5.6 g/dL (6.4-8.2); Sodium Level 137 mmol/L (136-145)
[2024-12-27] MEDS: Ipratropium/Albuterol Sulfate 3 ML AMPUL.NEB INHALATION ×2 (07:22→20:16)
--- NOTE | 2024-12-27 09:06 | PCM.PN.HOSP ---
Reason for Visit Reason for Visit: Diagnoses Chronic or unspecified gastric ulcer with perforation (12/26/24) Other specified disorders of peritoneum (12/26/24) Subjective Subjective Saw patient at bedside this morning. Patient was sitting back in bed, conversing normally and in no acute distress. She was mildly uncomfortable appearing due to the NG tube and stated she was hoping that the NG tube would be able to come out sooner rather than later. She denied any abdominal pain or discomfort currently. Denied any fevers or chills. No other acute concerns this morning. Objective Data Objective Data Vital Signs: Vital Signs Temp Pulse Resp BP Pulse Ox O2 Del Method O2 Flow Rate 97.9 F 89 18 120/75 100 Nasal Cannula 2 12/27/24 08:00 12/27/24 08:00 12/27/24 08:00 12/27/24 08:00 12/27/24 08:00 12/27/24 08:00 12/27/24 08:00 Oxygen Flow Rate (L/min) 2 Oxygen Delivery Method Nasal Cannula Weight: 91.2 kg Body Mass Index (BMI) 33.4 Intake & Output: Intake and Output for Last 24 Hours 12/25/24 12/26/24 12/27/24 23:59 23:59 23:59 Intake Total 2228.79 / 2229.74 4.90 / 4.90 Output Total 755 / 755 Balance 2228.79 / 2109.74 -750.10 / -750.10 Lab / Micro Data 12/27/24 05:25 12/27/24 05:25 Labs: Laboratory Results - last 24 hr 12/26/24 14:00: WBC 12.6 H, RBC 2.39 L, Hgb 7.2 L, Hct 24.6 L, MCV 102.9 H, MCH 30.1, MCHC 29.3 L, RDW Std Deviation 64.0 H, RDW Coeff of Lencho 16.9 H, Plt Count 150, MPV 9.8, Immature Gran % (Auto) 0.800, Neut % (Auto) 87.7 H, Lymph % (Auto) 5.8 L, [place] % (Auto) 4.5, Eos % (Auto) 0.9, Baso % (Auto) 0.3, Absolute Neuts (auto) 11.1 H, Absolute Lymphs (auto) 0.73 L, Nucleated RBC % 0, Sodium 132 L, Potassium 4.5, Chloride 107, Carbon Dioxide 17.0 L, Anion Gap 9, BUN 47 H, Creatinine 2.20 H, Est GFR (MDRD) Af Amer 29 L, Est GFR (MDRD) Non-Af 24 L, BUN/Creatinine Ratio 21.4 H, Glucose 83, Calcium 9.3, Total Bilirubin 0.30, AST 22, ALT 20, Alkaline Phosphatase 87, Total Protein 5.9 L, Albumin 2.0 L, Globulin 3.9, Albumin/Globulin Ratio 0.5 L, Folate 62.80 H 12/26/24 16:23: POC Glucose 84 12/26/24 16:40: Lactic Acid 1.0, Vitamin B12 943 H, Blood Type A POSITIVE, Antibody Screen NEGATIVE 12/26/24 18:15: Urine Color Yellow, Urine Clarity Sl. Cloudy, Urine pH 5.0, Ur Specific [place] 1.015, Urine Protein 30 H, Urine Glucose (UA) Normal, Urine Ketones Negative, Urine Occult Blood 10 H, Urine Nitrite Negative, Urine Bilirubin Negative, Urine Urobilinogen Normal, Ur Leukocyte Esterase Negative, Urine RBC 0-5 SEEN, Urine WBC 0-5 SEEN, Ur Squamous Epith Cells 0-5 SEEN, Amorphous Sediment 1+ URATE, Urine Bacteria 0 SEEN, Urine Mucus 0 SEEN 12/27/24 01:00: Procalcitonin 4.11 H 12/27/24 02:47: POC Glucose 139 H 12/27/24 05:25: WBC 7.4, RBC 2.30 L, Hgb 7.1 L, Hct 22.9 L, MCV 99.6 H, MCH 30.9, MCHC 31.0 L D, RDW Std Deviation 59.8 H, RDW Coeff of Lencho 16.6 H, Plt Count 120 L, MPV 9.9, Immature Gran % (Auto) 1.500 H, Neut % (Auto) 95.3 H, Lymph % (Auto) 2.2 L, [place] % (Auto) 0.9, Eos % (Auto) 0.0, Baso % (Auto) 0.1, Absolute Neuts (auto) 7.0, Absolute Lymphs (auto) 0.16 L, Nucleated RBC % 0, Sodium 137, Potassium 4.8, Chloride 109 H, Carbon Dioxide 20.0 L, Anion Gap 8, BUN 39 H, Creatinine 1.45 H, Estim Creat Clear Calc 43.73, Est GFR (MDRD) Af Amer 47 L, Est GFR (MDRD) Non-Af 39 L, BUN/Creatinine Ratio 26.9 H, Glucose 138 H, Calcium 8.4 L, Total Bilirubin 0.30, AST 25, ALT 21, Alkaline Phosphatase 84, Total Protein 5.6 L, Albumin 1.9 L, Globulin 3.7, Albumin/Globulin Ratio 0.5 L 12/27/24 05:26: POC Glucose 113 H Micro: Microbiology 12/27/24 04:28 Mucosa - Nose Coronavirus COVID-19 PCR - Final 12/27/24 04:28 Mucosa - Nose Respiratory Panel (PCR) - Final 12/27/24 01:00 Urine Catheter - Sheriff Legionella Antigen - Final 12/27/24 01:00 Urine Catheter - Sheriff Streptococcus pneumoniae Antigen (M - Final 12/26/24 16:33 Mucosa - Nose SARS-CoV-2, Influenza & RSV (PCR) - Final Radiography Diagnostic Testing: Radiology Impression Chest X-Ray 12/26/24 17:24 IMPRESSION: Linear lucency along the right hemidiaphragm, which may correlate with the right minor fissure, however pneumoperitoneum could have similar appearance. CT abdomen pelvis already ordered by provider. Findings compatible with history of treated right upper lobe lung cancer. Reading Location: [facility] Abdomen/Pelvis CT 12/26/24 18:04 IMPRESSION: 1. Moderate volume pneumoperitoneum greatest surrounding the stomach and midline transverse colon. 2. Numerous bibasilar pulmonary nodules and ground-glass opacities, most compatible with pneumonitis/pneumonia. Follow-up chest CT in 3 months is recommended to evaluate for resolution given history of lung cancer. Dr. Patton discussed these findings with Dr. Jimbo MD via telephone at 7:19 pm on 12/26/24. One or more dose reduction techniques were used (e.g., Automated exposure control, adjustment of the mA and/or kV according to patient size, use of iterative reconstruction technique). Reading Location: [facility] Chest X-Ray 12/26/24 18:45 IMPRESSION: Interval left PICC as described. Stable moderate pneumoperitoneum, better evaluated on recent CT. Reading Location: [facility] Physical Exam Const alert, oriented x3 and no apparent distress Constitutional Narrative: Upper middle-aged female, class I obesity, sitting back in bed, mildly uncomfortable appearing due to NG tube, otherwise conversing normally. General Appearance: cooperative HEENT normocephalic, head/scalp atraumatic and hearing grossly normal bilaterally HEENT Narrative: NG tube in place with greenish output. Eyes PERRL, EOMs intact bilaterally and conjunctivae normal Neck full ROM Chest inspection of chest normal Resp normal respiratory effort, normal air movement, no use of accessory muscles and clear to auscultation bilaterally Cardio regular rate, regular rhythm, no murmurs and peripheral pulses 2+ throughout GI GI Narrative: Mild tenderness palpation in upper abdomen. Otherwise soft and nondistended. Back/Spine normal ROM Extremity normal to inspection, full ROM and no pedal edema Skin no rashes or lesions noted Neuro moves all extremities and no focal motor deficits Speech: speech normal Motor Exam: strength 5/5 throughout Psych mental status grossly normal Assessment & Plan Assessment/Plan (1) Perforated gastric ulcer: (2) ARTIE (acute kidney injury): PLAN: Plan Patient is a 64-year-old female who presented [facility] ED on 12/26/2024 with abdominal pain and lightheadedness. 1. Suspected hemorrhagic and septic shock secondary to perforated gastric ulcer with acute on chronic anemia ? General Surgery primary. Manager Policy following. CT abdomen pelvis on admit showed moderate volume pneumoperitoneum greater surrounding the stomach and midline transverse colon. S/p ex lap with oversew of perforated anterior gastric ulcer with modified Jelani patch done by Dr. Ramirez on 12/26. Patient tolerated procedure well, no intraoperative complications. Hemoglobin 7.2 on admit, baseline hemoglobin 9-10. Patient with hypotension despite adequate fluid resuscitation requiring low-dose Levophed after procedure, suspected due to both blood loss and intra-abdominal infection from perforated ulcer. Weaned off Levophed on 12/27. Continue IV Zosyn for antibiotic coverage. Most recent hemoglobin 7.1 on 12/27, monitor CBC daily and transfuse for hemoglobin less than 7. NG tube in place with n.p.o. status, will maintain for now per general surgery recommendations. If remains n.p.o. with NG tube in place tomorrow, per surgery can give most essential p.o. medications as needed. 2. ARTIE ? Creatinine 2.20 on admit, baseline 0.7-0.8. No chronic kidney disease at baseline. Creatinine improved to 1.45 on hospital day 2 after IV fluid resuscitation. Presumed prerenal from shock as noted above. Monitor daily BMP and urine output. 3. Recent acute upper respiratory infection ? CT chest on admit showed incidentally noted groundglass opacities concerning for pneumonitis versus pneumonia. Respiratory infectious workup negative to this point. Patient stable on room air at rest. No need for active treatment, supportive care as needed. Chronic medical conditions: ? Class I obesity: BMI 33 on admit. Complicates hospital course, care and prognosis. ? Chronic HFpEF, hypertension, hyperlipidemia, history of CVA with residual right-sided hemiparesis: Home meds on hold with NG tube in place and n.p.o. status for now. Resume when able. ? Type 2 diabetes mellitus with neuropathy: Treating with sliding scale insulin every 6 hours for now, adjust as needed. Resume home pregabalin when able. ? Anxiety/depression: Resume home meds when able. ? GERD: Continue IV PPI daily for now. ? COPD: Stable on room air, not in acute exacerbation. Continue home inhalers. ? Former tobacco use: Encouraged continued cessation. DVT prophylaxis: SCDs CODE STATUS: Full code, verified Expected disposition: TBD Total clinical time spent by myself addressing the patient's medical issues, reviewing all the data, and collaborating with patient's care team: 35 minutes. Charges/Coding Visit Charges Inpatient E&M: 34864 Subs Hosp L2
[2024-12-27] MEDS: Pantoprazole Sodium 40 MG in 0.9% Normal Saline (100mL MB+) 100 ML 330 MG IV (10:19)
--- NOTE | 2024-12-27 10:47 | CASEMGMT ---
DRE DELGADILLO Assessment: Face to Face with pt for initial transition planning/care coordination assessment. DRE DELGADILLO introduced self and role at [facility], pt voices understanding and consents to assessment. Pt is A&O x4 and answers all questions appropriately at this time. Pt lying in bed in no distress. Care providers, pharmacy, and demographics verified/updated. Strata: 3 Admitting Dx: Perforated Gastric ulcer PCP: Brian Specialists: MARIIA; Chuck, Financial Legal Assistant; Segundo Torres Preferred Pharmacy: [facility] Insurance: [facility] Prescription Benefit: yes LNOK: SisterDee Living Arrangements: Pt lives alone in an apartment with no stairs to enter. ADLs: pt needs assistance, has a home health aide through [employer] that comes three times a week for 3 hours. Transportation: Pt home health aides provide transportation. DME: Scooter, walker, cane, w/c, shower chair, grab bars, lift chair HHC/SNF: [facility], [place] out of [facility]. Pt states does not want to go to SNF at time of dc, but she is willing if necessary. If [facility] recommended, pt would like to use [place] out of [place]. DRE DELGADILLO discussed possible O2 needs at DC, provided verbal list of DME providers. Pt chose [facility] as DME provider of choice if O2 is required at time of DC. Pt states no further concerns/needs. SW/CM to follow. Advised pt to ask CM if any further question/concerns/needs arise, voices understanding. Pt Goal: TBD Plan: TBD, follow therapy and O2 needs. Cecilia ERICKSON CM
[2024-12-27] MEDS: FLUCONAZOLE 100 MG IV (11:21)
--- NOTE | 2024-12-27 11:36 | PN.SURG_ITS ---
Subjective Subjective Patient comfortable and stable this morning. She was weaned off of pressors overnight. Her biggest complaint is discomfort secondary to NG tube. Blood work fairly unremarkable this morning. Objective Data Objective Data Vital Signs: Vital Signs Temp Pulse Resp BP Pulse Ox O2 Del Method O2 Flow Rate 97.9 F 92 19 H 140/76 H 100 Nasal Cannula 2 12/27/24 08:00 12/27/24 11:00 12/27/24 11:00 12/27/24 11:00 12/27/24 11:00 12/27/24 11:00 12/27/24 11:00 Oxygen Flow Rate (L/min) 2 Oxygen Delivery Method Nasal Cannula Weight: 201 lb 0.985 oz Body Mass Index (BMI) 33.4 Intake & Output: Intake and Output for Last 24 Hours 12/25/24 12/26/24 12/27/24 23:59 23:59 23:59 Intake Total 2228.79 / 2229.74 1164.90 / 1164.90 Output Total 815 / 815 Balance 2228.79 / 2109.74 349.90 / 349.90 Lab / Micro Data 12/27/24 05:25 12/27/24 05:25 Labs: Laboratory Results - last 24 hr 12/26/24 14:00: WBC 12.6 H, RBC 2.39 L, Hgb 7.2 L, Hct 24.6 L, MCV 102.9 H, MCH 30.1, MCHC 29.3 L, RDW Std Deviation 64.0 H, RDW Coeff of Lencho 16.9 H, Plt Count 150, MPV 9.8, Immature Gran % (Auto) 0.800, Neut % (Auto) 87.7 H, Lymph % (Auto) 5.8 L, [place] % (Auto) 4.5, Eos % (Auto) 0.9, Baso % (Auto) 0.3, Absolute Neuts (auto) 11.1 H, Absolute Lymphs (auto) 0.73 L, Nucleated RBC % 0, Sodium 132 L, Potassium 4.5, Chloride 107, Carbon Dioxide 17.0 L, Anion Gap 9, BUN 47 H, C reatinine 2.20 H, Est GFR (MDRD) Af Amer 29 L, Est GFR (MDRD) Non-Af 24 L, B UN/Creatinine Ratio 21.4 H, Glucose 83, Calcium 9.3, Total Bilirubin 0.30, AST 22, ALT 20, Alkaline Phosphatase 87, Total Protein 5.9 L, Albumin 2.0 L, Globulin 3.9, Albumin/Globulin Ratio 0.5 L, Folate 62.80 H 12/26/24 16:23: POC Glucose 84 12/26/24 16:40: Lactic Acid 1.0, Vitamin B12 943 H, Blood Type A POSITIVE, Antibody Screen NEGATIVE 12/26/24 18:15: Urine Color Yellow, Urine Clarity Sl. Cloudy, Urine pH 5.0, Ur Specific [place] 1.015, Urine Protein 30 H, Urine Glucose (UA) Normal, Urine Ketones Negative, Urine Occult Blood 10 H, Urine Nitrite Negative, Urine Bilirubin Negative, Urine Urobilinogen Normal, Ur Leukocyte Esterase Negative, Urine RBC 0-5 SEEN, Urine WBC 0-5 SEEN, Ur Squamous Epith Cells 0-5 SEEN, Amorphous Sediment 1+ URATE, Urine Bacteria 0 SEEN, Urine Mucus 0 SEEN 12/27/24 01:00: Procalcitonin 4.11 H 12/27/24 02:47: POC Glucose 139 H 12/27/24 05:25: WBC 7.4, RBC 2.30 L, Hgb 7.1 L, Hct 22.9 L, MCV 99.6 H, MCH 30.9, MCHC 31.0 L D, RDW Std Deviation 59.8 H, RDW Coeff of Lencho 16.6 H, Plt Count 120 L, MPV 9.9, Immature Gran % (Auto) 1.500 H, Neut % (Auto) 95.3 H, L ymph % (Auto) 2.2 L, [place] % (Auto) 0.9, Eos % (Auto) 0.0, Baso % (Auto) 0.1, Absolute Neuts (auto) 7.0, Absolute Lymphs (auto) 0.16 L, Nucleated RBC % 0, Sodium 137, Potassium 4.8, Chloride 109 H, Carbon Dioxide 20.0 L, Anion Gap 8, B UN 39 H, Creatinine 1.45 H, Estim Creat Clear Calc 43.73, Est GFR (MDRD) Af Amer 47 L, Est GFR (MDRD) Non-Af 39 L, BUN/Creatinine Ratio 26.9 H, Glucose 138 H, C alcium 8.4 L, Total Bilirubin 0.30, AST 25, ALT 21, Alkaline Phosphatase 84, T otal Protein 5.6 L, Albumin 1.9 L, Globulin 3.7, Albumin/Globulin Ratio 0.5 L 12/27/24 05:26: POC Glucose 113 H Micro: Microbiology 12/27/24 04:28 Mucosa - Nose Coronavirus COVID-19 PCR - Final 12/27/24 04:28 Mucosa - Nose Respiratory Panel (PCR) - Final 12/27/24 01:00 Urine Catheter - Sheriff Legionella Antigen - Final 12/27/24 01:00 Urine Catheter - Sheriff Streptococcus pneumoniae Antigen (M - Final 12/26/24 16:33 Mucosa - Nose SARS-CoV-2, Influenza & RSV (PCR) - Final Radiography Diagnostic Testing: Radiology Impression Chest X-Ray 12/26/24 17:24 IMPRESSION: Linear lucency along the right hemidiaphragm, which may correlate with the right minor fissure, however pneumoperitoneum could have similar appearance. CT abdomen pelvis already ordered by provider. Findings compatible with history of treated right upper lobe lung cancer. Reading Location: [facility] Abdomen/Pelvis CT 12/26/24 18:04 IMPRESSION: 1. Moderate volume pneumoperitoneum greatest surrounding the stomach and midline transverse colon. 2. Numerous bibasilar pulmonary nodules and ground-glass opacities, most compatible with pneumonitis/pneumonia. Follow-up chest CT in 3 months is recommended to evaluate for resolution given history of lung cancer. Dr. Patton discussed these findings with Dr. Jimbo MD via telephone at 7:19 pm on 12/26/24. One or more dose reduction techniques were used (e.g., Automated exposure control, adjustment of the mA and/or kV according to patient size, use of iterative reconstruction technique). Reading Location: [id number] Chest X-Ray 12/26/24 18:45 IMPRESSION: Interval left PICC as described. Stable moderate pneumoperitoneum, better evaluated on recent CT. Reading Location: [id number] Physical Exam Narrative She is alert and oriented x 3. She is in no acute distress NG tube is in place. She complains of discomfort. There is some greenish drainage from NG tube. Dressing is clean dry and intact. Abdomen is appropriately tender. No peritoneal signs or rebound/guarding PETE drain output nonbilious. Output is serosanguineous to slightly bloody. Output is appropriate in quantity Assessment & Plan Assessment/Plan (1) Perforated gastric ulcer: PLAN: Plan Patient is postoperative day 1 following a diagnostic laparoscopy converted to an open laparotomy in order to perform an oversew of a perforated anterior gastric ulcer. Modified Jelani patch was also performed. She is now off of pressors and seems to be doing fairly well clinically. I suspect based on her operative findings and her description of pain, perforation likely occurred several days ago. There was minimal spillage. Recommend continuing NG tube to decompress stomach. Would not manipulate NG. If NG falls out, would not advise replacing. She is okay to have some ice chips sparingly. If there are necessary oral medications that need to be given, I would be okay with resuming these but ideally IV would be preferred. Continue Zosyn and Diflucan. Continue IV Protonix Appreciate medicine consult for medical management
--- NOTE | 2024-12-27 13:53 | CON.PCM.CC_ITS ---
HPI Consult Data Date of Consult: 12/27/24 HPI Narrative Reason for Consultation: post operative from perforated peptic ulcer HPI Narrative: BILL CHOI, is a 64 F who presents with 3d abdominal pain. H/O PUD in the past, lately has been taking a lot of ibuprofen. No PO prednisone use lately. Had some hypotension post operatively and was admitted to ICU for pressors. Pressors are now off and she has actually felt well enough to work with PT/OT, but has abdominal soreness and NG still in place for decompression. No vomiting. [facility] Medical History (Updated 12/26/24 @ 22:[address] Palmer Ramirez MD) Perforated gastric ulcer Nondisplaced fracture of fifth right metatarsal bone Anemia History of type 2 diabetes mellitus History of hypertension Right femoral fracture Depression Hypothyroidism History of MRSA infection of lungs Delirium Debility Falls Metabolic encephalopathy Complicated urinary tract infection Acute hypotension Brain TIA Embolic stroke Normocytic anemia History of stroke Diabetes mellitus Hyperlipidemia Hypertension Stroke/cerebrovascular accident Cardiomyopathy Chronic systolic (congestive) heart failure Non-ischemic cardiomyopathy History of CVA (cerebrovascular accident) (2018) Flash pulmonary edema (01/16/21) Peripheral vascular disease History of depression Atherosclerosis of coronary artery without angina pectoris CKD (chronic kidney disease) stage 3, GFR 30-59 ml/min Asthma exacerbation Pulmonary edema Acute respiratory failure with hypoxia Trigeminal trophic syndrome Stomach ulcer Hypothyroidism Osteopenia Osteoarthritis Kidney disease Hyperlipidemia Essential hypertension Chronic headaches GI problem Gallstones History of emotional problems Type 2 diabetes mellitus Carpal tunnel syndrome Bone fracture Asthma Anemia Seasonal allergies Herpes simplex GERD (gastroesophageal reflux disease) Allergic rhinitis Irritable bowel syndrome Gait difficulty Right hemiparesis Debility Osteoporosis Normochromic normocytic anemia Secondary adrenal insufficiency ACTH deficiency Neuropathy Falls Hypotension Carotid artery stenosis Bilateral leg weakness History of ischemic colitis Chronic constipation with suspected IBS Obesity Hx of diverticulitis of colon History of Clostridium difficile infection Home Medications ?Medication ?Instructions ?Recorded ?Last Taken ?Type pantoprazole 40 mg tablet,delayed 40 mg PO BID GERD 10/24/23 History release amitriptyline 25 mg tablet 25 mg PO QHS MOOD 08/10/19 07/20/24 History rosuvastatin 20 mg tablet (Crestor) 20 mg PO QHS HIGINIO STEROL 08/25/19 07/20/24 History sitagliptin phosphate 50 mg tablet 50 mg PO DAILY DIAB ETES 09/04/19 07/20/24 History (Januvia) duloxetine 60 mg capsule,delayed 60 mg PO BID DEPRESSI ON 10/19/20 04/25/24 History release pregabalin 100 mg capsule 100 mg PO DAILY PAIN 1 07/20/24 History sacubitril 49 mg-valsartan 51 mg 1 tab PO BID HEART 07/20/24 History tablet (Entresto) alendronate 70 mg tablet 70 mg PO TU BONES 02/13/22 0 07/15/24 History aspirin 81 mg tablet,delayed 81 mg PO DAILY@0800 HEART HEALTH 02/15/22 04/25/24 History release dicyclomine 20 mg tablet 20 mg PO TIDCM IRRITABLE BOW ELS 09/11/22 07/20/24 History apixaban 5 mg tablet (Eliquis) 5 mg PO BID blood thinn er 30 days 09/18/22 12/26/24 Rx #60 tabs benzonatate 100 mg capsule 100 - 200 mg PO Q8H PRN COU GH 05/28/23 Unknown History venlafaxine 75 mg tablet 150 mg PO BID DEPRESSION 07/20/24 History carvedilol 25 mg tablet (Coreg) 25 mg PO BIDCM HEART 1 12/25/22 07/20/24 History fluticasone 500 mcg-salmeterol 50 1 ea inhalation BID Asthma 04/25/24 04/25/24 History mcg/dose blistr powdr for inhalation (Advair Diskus) levothyroxine 125 mcg tablet 125 mcg PO DAILY Hypothyr oidism 04/25/24 07/20/24 History ascorbic acid (vitamin C) 500 mg 500 mg PO DAILY Suppl ement 05/01/24 Unknown History tablet calcium 600 mg (as 1 tab PO DAILY Supplement Unknown History carbonate)-vitamin D3 5 mcg (200 unit) tablet (Calcium 600 + D(3)) cetirizine 10 mg capsule (All Day 10 mg PO DAILY Aller gies 05/01/24 Unknown History Allergy (cetirizine)) cholecalciferol (vitamin D3) 50 50 mcg PO DAILY Supple ment 05/01/24 Unknown History mcg (2,000 unit) tablet (Vitamin D3) magnesium oxide 400 mg PO DAILY Supplement 0 05/01/24 Unknown History zinc acetate 50 mg (zinc) capsule 50 mg PO DAILY Suppl ement 05/01/24 Unknown History (Galzin) hydrocodone 7.5 mg-acetaminophen 1 tab PO Q8H PRN pain 07/21/24 Unknown History 325 mg tablet Allergy/AdvReac Type Severity Reaction Status Date / Time adhesive Allergy skin Verified 12/26/24 12:55 irritation amlodipine (From Norvasc) Allergy tachycardia Verified 12/26/24 12:55 hydromorphone HCl (From Allergy Itching Verified 12/26/24 12:55 Dilaudid) sulfamethoxazole (From Allergy made my Verified 12/26/24 12:55 Bactrim) cold sore huge trimethoprim (From Bactrim) Allergy made my Verified 12/26/24 12:55 cold sore huge Family History Grandfather Alcoholism Grandmother Myocardial infarction Mother Arthritis Diverticulitis COPD (chronic obstructive pulmonary disease) Afib Thyroid disorder Father Arthritis Diabetes Myocardial infarction Heart disease Ischemic Hypertension Hyperlipidemia Brother Arthritis Aunt Breast cancer Sister Arthritis Thyroid disorder Skin cancer Uncle Diabetes Surgical History History of angioplasty of peripheral vessel (2010) History of left heart catheterization (2011) History of trigger finger Ankle fracture Strangulated ventral hernia History of back surgery Fracture of left femur History of ventral hernia repair History of intestine removal History of arthroscopic knee surgery History of bilateral knee replacement History of cholecystectomy History of carpal tunnel release History of tonsillectomy and adenoidectomy Social History household members: none Smoking Status: Former smoker how long ago did patient quit smokin alcohol intake: never substance use type: does not use what type of physical activity do you participate in: other ROS Constitutional Constitutional: Denies body ache(s), chills, fatigue, fever(s), headache(s), malaise, night sweats or weakness Eyes Eyes: Denies blurry vision, change in vision or loss of vision ENT HEENT: Denies dizziness, dysphagia, epistaxis, headache(s), hoarseness, loss taste/smell, nasal congestion, nasal discharge or sore throat Cardiovascular Cardiovascular: Denies chest pain, claudication, dizziness, dyspnea, edema, irregular heart rhythm or lightheadedness Respiratory/Chest Respiratory/Chest: Denies chest tightness, cough, dyspnea, hemoptysis, non-rest sleep EDS, pain on inspiration, shortness of breath with exertion, snoring, wheezing or witnessed apneas Gastrointestinal Gastrointestinal: Reports abdominal pain Genitourinary Genitourinary: Denies difficulty urinating, dysuria, flank pain, hematuria, polyuria or urinary frequency Musculoskeletal Musculoskeletal: Denies arthralgias, back pain or joint pain Integumentary Integumentary: Denies lesions, rash, skin ulcer or wounds Neurologic Neurologic: Denies abnormal gait, abnormal speech, confusion, focal weakness, loss of vision, seizure-like activity or syncope Psychiatric Psychiatric: Denies anxiety, depression, hallucinations, homicidal ideation, panic attacks or suicidal thoughts Endocrine Endocrinology: Denies fatigue, polydipsia or polyuria Hematologic/Lymphatic Hematologic/Lymphatic: Denies easy bleeding or easy bruising Allergic/Immunologic Allergic/Immunologic: Denies systems reviewed and no addt'l complaints, except as documented, as per HPI, none, GI upset w/certain foods, itchy eyes, lip swelling, seasonal rhinorrhea, rhinitis, throat swelling, tongue swelling, hives, urticaria, eczemia, wheezing, asthma or other Objective Data Objective Data Vital Signs: Vital Signs Last response 3 Temperature 36.9 C 12/27/24 12:00 Temperature Source Oral 12/27/24 12:00 Pulse Rate 93 12/27/24 12:00 Pulse Strength Normal (2+) 12/27/24 10:00 Respiratory Rate 14 12/27/24 12:00 Respiratory Effort Normal, Non-Labored 12/27/24 12:00 Respiratory Depth Normal 12/27/24 12:00 Respiratory Pattern Normal 12/27/24 12:00 Blood Pressure 131/79 H 12/27/24 12:00 Blood Pressure Mean 96 12/27/24 12:00 Blood Pressure Source Monitor 12/27/24 12:00 Blood Pressure Position Semi-Fowlers 12/27/24 12:00 Blood Pressure Location Right Arm 12/27/24 12:00 Pulse Ox 100 12/27/24 12:00 Oxygen Delivery Method Nasal Cannula 12/27/24 12:00 Oxygen Flow Rate (L/min) 2 12/27/24 12:00 I&O: I&O Last 24 Hours 3 12/26/24 12/27/24 12/27/24 23:59 11:59 23:59 Intake Total 2228.79 / 2229.74 1164.90 / 1264.90 100 / 1264.90 Output Total 815 / 1285 470 / 1285 Balance 2228.79 / 2109.74 349.90 / -20.10 -370 / -20.10 I&O: Total Stay 3 12/26/24 12:50 thru 12/27/24 12:42 Intake Total 3493.69 Output Total 1285 Balance 2208.69 Current Meds Ordered / Administered: Current meds ordered / Administered 3 Generic Name Dose Route Start Last Admin Trade Name Freq PRN Reason Stop Dose Admin Acetaminophen 650 mg 12/26/24 22:41 Acetaminophen 650 Mg Suppository RC Q4H PRN PRN Fever, pain 1-10 Albuterol Sulfate 2.5 mg 12/26/24 22:41 Albuterol 2.5 Mg/3 Ml Vial.Neb. INHALATION Q2H PRN PRN Dyspnea, wheezing Albuterol/Ipratropium 3 ml 12/26/24 22:45 12/27/24 07:22 Ipratropium/Albuterol Sulfate 3 Ml Ampul.Neb INHALATION 3 ml Q6HWA.RT [place] Administration Amitriptyline HCl 25 mg 12/27/24 22:00 Amitriptyline 25 Mg Tablet PO QHS [place] Atorvastatin Calcium 40 mg 12/27/24 22:00 Atorvastatin Calcium 40 Mg Tablet PO QHS [place] Budesonide 0.5 mg 12/27/24 07:50 Budesonide Respules 0.5 Mg/2 Ml Ampul.Neb. INHALATION Q12H.RT [place] Cholecalciferol 50 mcg 12/27/24 10:00 12/27/24 10:17 Cholecalciferol (Vit D3) 25 Mcg Tablet (1,000 Units) PO Not Given DAILY [facility] Glucagon 1 mg 12/26/24 22:41 Glucagon 1 Mg/Ml Syringe IM X1 PRN Hypoglycemia Protocol Hydralazine HCl 10 mg 12/26/24 22:41 Hydralazine 20 Mg/Ml Vial IV Q4H PRN PRN SBP > 160 Protocol Norepinephrine Bitartrate 8 mg 250 mls @ 9.375 mls/hr 12/26/24 18:45 12/27/24 00:30 / Sodium Chloride CONT INF 0 mcg/min .[id number] [place] 0 mls/hr Titration Protocol 5 MCG/MIN Piperacillin Sod/Tazobactam 50 mls @ 12.5 mls/hr 12/27/24 06:00 12/27/24 10:17 Sod 3.375 gm/ Sodium Chloride IV Infused Q8 [facility] Infusion Pantoprazole Sodium 40 mg/ 110 mls @ 330 mls/hr 12/27/24 10:00 12/27/24 11:06 Sodium Chloride IV Infused Q24 [facility] Infusion Fluconazole 100 mls @ 100 mls/hr 12/27/24 10:00 12/27/24 12:31 IV Infused Q24 [facility] Infusion Dextrose 250 mls @ 0 mls/hr 12/26/24 22:41 12/26/24 23:49 Dextrose 10%-Water IV Infused .Q0M PRN Infusion HYPOGLYCEMIA Protocol As Directed Sodium Chloride 100 mls @ 15 mls/hr 12/27/24 00:07 12/27/24 10:17 IV 15 mls/hr .Q6H40M PRN Infusion SALINE FLUSH Sodium Chloride 100 mls @ 15 mls/hr 12/27/24 00:07 IV .Q6H40M PRN Saline Flush Sodium Chloride 100 mls @ 15 mls/hr 12/27/24 00:07 IV .Q6H40M PRN Additional IVPB Infusion Insulin Human Lispro 0 unit 12/26/24 22:45 12/27/24 12:23 Insulin Lispro 100 Unit/Ml Insuln.Pen SC Not Given Q6H [facility] Protocol Levothyroxine Sodium 125 mcg 12/28/24 06:00 Levothyroxine 125 Mcg Tablet PO DAILY@0600 [facility] Loratadine 10 mg 12/27/24 10:00 12/27/24 10:17 Loratadine 10 Mg Tablet PO Not Given DAILY [facility] Morphine Sulfate 2 - 4 mg 12/26/24 22:38 12/27/24 13:52 Morphine 2 Mg/Ml Syringe IV 2 mg Q3H PRN PRN Administration Pain Score 6-10 Ondansetron HCl 4 mg 12/26/24 22:38 Ondansetron 4 Mg/2 Ml Vial IV Q8H PRN PRN NAUSEA/VOMITING Pregabalin 100 mg 12/27/24 10:00 12/27/24 10:17 Pregabalin 50 Mg Capsule PO Not Given DAILY [facility] Sodium Chloride 10 - 40 ml 12/27/24 00:07 12/27/24 02:51 0.9 % Nacl (Sterile) Posiflush 10 Ml IV 20 ml UD PRN Administration Port access or dressing change Sodium Chloride 10 - 40 ml 12/27/24 00:07 0.9% Saline Lock 10 Ml Syringe IV UD PRN Midline Flush Sodium Chloride 10 - 40 ml 12/27/24 00:07 0.9% Saline Lock 10 Ml Syringe IV UD PRN SALINE FLUSH Venlafaxine HCl 150 mg 12/27/24 22:00 Venlafaxine Hcl 75 Mg Tablet PO QHS [facility] Venlafaxine HCl 75 mg 12/27/24 10:00 12/27/24 10:17 Venlafaxine Hcl 75 Mg Tablet PO Not Given DAILY [facility] Physical Exam Const alert, oriented x3 and no apparent distress General Appearance: cooperative and well developed HEENT normocephalic Eyes PERRL and EOMs intact bilaterally Neck full ROM and no JVD Lymph Lymphatic: no lymphadenopathy noted Chest inspection of chest normal Resp normal respiratory effort and no use of accessory muscles Effort and Inspection: able to speak in complete sentences Auscultation: clear to auscultation bilaterally Cardio regular rate and regular rhythm GI normal to inspection, nondistended, normoactive bowel sounds no CVA tenderness Extremity no clubbing, cyanosis or edema Skin no rashes or lesions noted Neuro oriented x3, CN's II-XII intact bilaterally, moves all extremities and no focal motor deficits Psych cooperative and affect normal Appearance: well kempt Speech: normal speech Lab / Micro Data 12/27/24 05:25 12/27/24 05:25 Labs: Laboratory Results - last 24 hr 12/26/24 14:00: WBC 12.6 H, RBC 2.39 L, Hgb 7.2 L, Hct 24.6 L, MCV 102.9 H, MCH 30.1, MCHC 29.3 L, RDW Std Deviation 64.0 H, RDW Coeff of Lencho 16.9 H, Plt Count 150, MPV 9.8, Immature Gran % (Auto) 0.800, Neut % (Auto) 87.7 H, Lymph % (Auto) 5.8 L, Thayer % (Auto) 4.5, Eos % (Auto) 0.9, Baso % (Auto) 0.3, Absolute Neuts (auto) 11.1 H, Absolute Lymphs (auto) 0.73 L, Nucleated RBC % 0, Sodium 132 L, Potassium 4.5, Chloride 107, Carbon Dioxide 17.0 L, Anion Gap 9, BUN 47 H, C reatinine 2.20 H, Est GFR (MDRD) Af Amer 29 L, Est GFR (MDRD) Non-Af 24 L, B UN/Creatinine Ratio 21.4 H, Glucose 83, Calcium 9.3, Total Bilirubin 0.30, AST 22, ALT 20, Alkaline Phosphatase 87, Total Protein 5.9 L, Albumin 2.0 L, Globulin 3.9, Albumin/Globulin Ratio 0.5 L, Folate 62.80 H 12/26/24 16:23: POC Glucose 84 12/26/24 16:40: Lactic Acid 1.0, Vitamin B12 943 H, Blood Type A POSITIVE, Antibody Screen NEGATIVE 12/26/24 18:15: Urine Color Yellow, Urine Clarity Sl. Cloudy, Urine pH 5.0, Ur Specific [place] 1.015, Urine Protein 30 H, Urine Glucose (UA) Normal, Urine Ketones Negative, Urine Occult Blood 10 H, Urine Nitrite Negative, Urine Bilirubin Negative, Urine Urobilinogen Normal, Ur Leukocyte Esterase Negative, Urine RBC 0-5 SEEN, Urine WBC 0-5 SEEN, Ur Squamous Epith Cells 0-5 SEEN, Amorphous Sediment 1+ URATE, Urine Bacteria 0 SEEN, Urine Mucus 0 SEEN 12/27/24 01:00: Procalcitonin 4.11 H 12/27/24 02:47: POC Glucose 139 H 12/27/24 05:25: WBC 7.4, RBC 2.30 L, Hgb 7.1 L, Hct 22.9 L, MCV 99.6 H, MCH 30.9, MCHC 31.0 L D, RDW Std Deviation 59.8 H, RDW Coeff of Lencho 16.6 H, Plt Count 120 L, MPV 9.9, Immature Gran % (Auto) 1.500 H, Neut % (Auto) 95.3 H, L ymph % (Auto) 2.2 L, Thayer % (Auto) 0.9, Eos % (Auto) 0.0, Baso % (Auto) 0.1, Absolute Neuts (auto) 7.0, Absolute Lymphs (auto) 0.16 L, Nucleated RBC % 0, Sodium 137, Potassium 4.8, Chloride 109 H, Carbon Dioxide 20.0 L, Anion Gap 8, B UN 39 H, Creatinine 1.45 H, Estim Creat Clear Calc 43.73, Est GFR (MDRD) Af Amer 47 L, Est GFR (MDRD) Non-Af 39 L, BUN/Creatinine Ratio 26.9 H, Glucose 138 H, C alcium 8.4 L, Total Bilirubin 0.30, AST 25, ALT 21, Alkaline Phosphatase 84, T otal Protein 5.6 L, Albumin 1.9 L, Globulin 3.7, Albumin/Globulin Ratio 0.5 L 12/27/24 05:26: POC Glucose 113 H Micro: Microbiology 12/27/24 04:28 Mucosa - Nose Coronavirus COVID-19 PCR - Final 12/27/24 04:28 Mucosa - Nose Respiratory Panel (PCR) - Final 12/27/24 01:00 Urine Catheter - Sheriff Legionella Antigen - Final 12/27/24 01:00 Urine Catheter - Sheriff Streptococcus pneumoniae Antigen (M - Final 12/26/24 16:33 Mucosa - Nose SARS-CoV-2, Influenza & RSV (PCR) - Final Imaging Radiology Impression Chest X-Ray 12/26/24 17:24 IMPRESSION: Linear lucency along the right hemidiaphragm, which may correlate with the right minor fissure, however pneumoperitoneum could have similar appearance. CT abdomen pelvis already ordered by provider. Findings compatible with history of treated right upper lobe lung cancer. Reading Location: [id number] Abdomen/Pelvis CT 12/26/24 18:04 IMPRESSION: 1. Moderate volume pneumoperitoneum greatest surrounding the stomach and midline transverse colon. 2. Numerous bibasilar pulmonary nodules and ground-glass opacities, most compatible with pneumonitis/pneumonia. Follow-up chest CT in 3 months is recommended to evaluate for resolution given history of lung cancer. Dr. Patton discussed these findings with Dr. Jimbo MD via telephone at 7:19 pm on 12/26/24. One or more dose reduction techniques were used (e.g., Automated exposure control, adjustment of the mA and/or kV according to patient size, use of iterative reconstruction technique). Reading Location: [facility] Chest X-Ray 12/26/24 18:45 IMPRESSION: Interval left PICC as described. Stable moderate pneumoperitoneum, better evaluated on recent CT. Reading Location: [facility] Assessment and Plan . Assessment and plan: ICU Problem List: Hypovolemic hypotension/shock Acute blood loss anemia Perforation of peptic ulcer Plan: PPI BID NG in place for decompression Transfuse goal 7-8 No coagulopathy to correct Maintenance IVF at 75 cc/hr since she is NPO Antibiotic coverage with cefepime or zosyn for GNR reasonable given viscous perforation Maldonado Garay MD PCCM [facility] Critical Care Time: 60 minutes The entirety of this encounter was done via Telemedicine
[2024-12-27 14:07] LABS: Bedside Glucose 103 mg/dL (74-106)
[2024-12-27] MEDS: Phenol/Sodium Phenolate 180ML 3 SPRAY MUCOUS MEM ×2 (14:44→20:43)
[2024-12-27 18:02] LABS: Bedside Glucose 112 mg/dL (74-106)
[2024-12-27 18:56] LABS: Bedside Glucose 60 mg/dL (74-106)
[2024-12-27 18:56] LABS: Bedside Glucose 99 mg/dL (74-106)
[2024-12-27] MEDS: Budesonide Respules 0.5 MG/2 ML AMPUL.NEB. INHALATION (20:16)
[2024-12-27] MEDS: hydrALAZINE 20 MG/ML Vial 10 MG IV (22:23)
[2024-12-27 23:30] LABS: Bedside Glucose 114 mg/dL (74-106)
[2024-12-28] VITALS (58 sets, daily range): BP systolic 114–189; BP diastolic 68–109; PULSE 81–128; RESP 17–27; TEMP 36.2–36.6; O2SAT 92–97; BMI 32.8
[2024-12-28] MEDS: Morphine 2 MG/ML Syringe IV ×5 (01:38→22:10)
[2024-12-28] MEDS: hydrALAZINE 20 MG/ML Vial 10 MG IV (03:47)
[2024-12-28] MEDS: Piperacil/Tazobactam 3.375 GM in 0.9% Normal Saline (50mL MB+) 50 ML IV ×3 (05:09→20:42)
[2024-12-28] MEDS: Metoprolol Tartrate 5 MG/5 ML Vial IV (05:09)
[2024-12-28] MEDS: 0.9 % NaCl (Sterile) Posiflush 10 mL IV ×2 (05:11→06:55)
[2024-12-28 05:43] LABS: Bedside Glucose 126 mg/dL (74-106)
[2024-12-28 05:48] LABS: Hematocrit 28.2 % (37-47); Hemoglobin 8.6 g/dL (12.0-15.0); Mean Corp Hgb Conc 30.5 g/dL (32-36); Mean Corpuscular Hgb 30.1 pg (27.0-32.0); Mean Corpuscular Volume 98.6 fL (81-99); Mean Platelet Vol. 9.9 fl (6.2-12.0); Platelet Count 236 K/mm3 (150-450); RBC Distribution Width CV 16.5 % (11.6-14.6); RBC Distribution Width SD 59.7 fl (35.1-43.9); Red Blood Count 2.86 M/mm3 (4.2-5.4); White Blood Count 19.5 K/mm3 (4.4-11.0)
[2024-12-28 06:06] LABS: Anion Gap 12 (5-15); BUN 26 mg/dL (7-18); BUN/Creat Ratio 28.8 RATIO (10-20); Calcium,Total 9.4 mg/dL (8.5-10.1); Chloride 111 mmol/L (98-107); EST Glomerular Filtration Rate 67 mL/min (>60); Est Glom Filt Rate - Afr Amer 81 mL/min (>60); Estimated Creatinine Clearance 69.78 ml/min; Glucose 121 mg/dL (74-106); Potassium 4.8 mmol/L (3.5-5.1); Sodium Level 141 mmol/L (136-145)
--- NOTE | 2024-12-28 06:33 | PCM.HOSP.N ---
Hospitalist Note Patient with elevated BP, mild tachycardia, normally on HTN regimen, had been held with NEP usage. Still has NGT. Given lopressor without marked effect and had hydralazine PRN prior to this. Will trial bolus cardizem.
[2024-12-28] MEDS: dilTIAZem 25 MG/5 ML Vial 20 MG IV BOLUS (06:53)
[2024-12-28] MEDS: Ipratropium/Albuterol Sulfate 3 ML AMPUL.NEB INHALATION ×3 (07:00→18:45)
[2024-12-28] MEDS: Budesonide Respules 0.5 MG/2 ML AMPUL.NEB. INHALATION ×2 (07:00→18:43)
[2024-12-28] MEDS: NICARdipine 25 MG in 0.9% Normal Saline (250mL Bag) 240 ML 50 MG CONT INF ×2 (09:39→14:49)
--- NOTE | 2024-12-28 09:41 | PCM.PN.HOSP ---
Reason for Visit Reason for Visit: Diagnoses Chronic or unspecified gastric ulcer with perforation (12/26/24) Other specified disorders of peritoneum (12/26/24) Acute kidney failure, unspecified (12/26/24) Subjective Subjective Saw patient at bedside this morning. Patient appeared similar to yesterday, had NG tube in place with some output and otherwise was sitting back in bed, mildly fatigued appearing and mildly uncomfortable appearing due to the NG tube. Her heart rate increased to the 110s to 120s overnight, was sinus rhythm on the monitor. Blood pressure also worsened to the 180s to 190s overnight. Improved somewhat with IV Cardizem but did not maintain. Very likely due to not being able to get p.o. medications at this point. No other new concerns today. Objective Data Objective Data Vital Signs: Vital Signs Temp Pulse Resp BP Pulse Ox O2 Del Method O2 Flow Rate 97.8 F 104 H 18 157/95 H 95 Room Air 2 12/28/24 05:00 12/28/24 07:00 12/28/24 07:00 12/28/24 07:00 12/28/24 07:00 12/28/24 07:00 12/27/24 17:00 Oxygen Flow Rate (L/min) 2 Oxygen Delivery Method Room Air Weight: 89.5 kg Body Mass Index (BMI) 32.8 Intake & Output: Intake and Output for Last 24 Hours 12/26/24 12/27/24 12/28/24 23:59 23:59 23:59 Intake Total 2228.79 / 2229.74 1392.90 / 1392.90 95.5 / 95.5 Output Total 5 / 2065 400 / 400 Balance 2228.79 / 2109.74 -672.10 / -672.10 -304.5 / -304.5 Lab / Micro Data 12/28/24 05:00 12/28/24 05:00 Labs: Laboratory Results - last 24 hr 12/26/24 23:38: POC Glucose 60 L 12/26/24 23:53: POC Glucose 99 12/27/24 12:17: POC Glucose 103 12/27/24 17:37: POC Glucose 112 H 12/27/24 23:07: POC Glucose 114 H 12/28/24 05:00: WBC 19.5 H, RBC 2.86 L, Hgb 8.6 L, Hct 28.2 L, MCV 98.6, MCH 30.1, MCHC 30.5 L, RDW Std Deviation 59.7 H, RDW Coeff of Lencho 16.5 H, Plt Count 236, MPV 9.9, Sodium 141, Potassium 4.8, Chloride 111 H, Carbon Dioxide 17.0 L, Anion Gap 12, BUN 26 H, Creatinine 0.90, Estim Creat Clear Calc 69.78, Est GFR (MDRD) Af Amer 81, Est GFR (MDRD) Non-Af 67, BUN/Creatinine Ratio 28.8 H, Glucose 121 H, Calcium 9.4 12/28/24 05:14: POC Glucose 126 H Micro: Microbiology 12/27/24 04:28 Mucosa - Nose Coronavirus COVID-19 PCR - Final 12/27/24 04:28 Mucosa - Nose Respiratory Panel (PCR) - Final 12/27/24 01:00 Urine Catheter - Sheriff Legionella Antigen - Final 12/27/24 01:00 Urine Catheter - Sheriff Streptococcus pneumoniae Antigen (M - Final 12/26/24 16:33 Mucosa - Nose SARS-CoV-2, Influenza & RSV (PCR) - Final Physical Exam Const alert, oriented x3 and no apparent distress Constitutional Narrative: Upper middle-aged female, class I obesity, sitting back in bed, mildly uncomfortable appearing due to NG tube, otherwise conversing normally. Stable. General Appearance: cooperative HEENT normocephalic, head/scalp atraumatic and hearing grossly normal bilaterally HEENT Narrative: NG tube in place with clear to greenish output. Eyes PERRL, EOMs intact bilaterally and conjunctivae normal Neck full ROM Chest inspection of chest normal Resp normal respiratory effort, normal air movement, no use of accessory muscles and clear to auscultation bilaterally Cardio no murmurs and peripheral pulses 2+ throughout Cardio Narrative: Tachycardic, regular rhythm. GI GI Narrative: Mild tenderness palpation in upper abdomen. Otherwise soft and nondistended. Stable. Back/Spine normal ROM Extremity normal to inspection, full ROM and no pedal edema Skin no rashes or lesions noted Neuro moves all extremities and no focal motor deficits Speech: speech normal Motor Exam: strength 5/5 throughout Psych mental status grossly normal Assessment & Plan Assessment/Plan (1) Perforated gastric ulcer: (2) ARTIE (acute kidney injury): PLAN: Plan Patient is a 64-year-old female who presented [facility] ED on 12/26/2024 with abdominal pain and lightheadedness. 1. Suspected hemorrhagic and septic shock secondary to perforated gastric ulcer with acute on chronic anemia ? General Surgery primary. Communications Consultant following. CT abdomen pelvis on admit showed moderate volume pneumoperitoneum greater surrounding the stomach and midline transverse colon. S/p ex lap with oversew of perforated anterior gastric ulcer with modified Jelani patch done by Dr. Ramirez on 12/26. Patient tolerated procedure well, no intraoperative complications. Hemoglobin 7.2 on admit, baseline hemoglobin 9-10. Patient with hypotension despite adequate fluid resuscitation requiring low-dose Levophed after procedure, suspected due to both blood loss and intra-abdominal infection from perforated ulcer. Weaned off Levophed on 12/27. Continue IV Zosyn for antibiotic coverage. Transfused 1 unit of blood on 12/27, most recent hemoglobin 8.6 on 12/28. Continue to monitor daily CBC and transfuse for hemoglobin less than 7. Per general surgery, will keep NG tube in place today with n.p.o. status. 2. ARTIE, resolved ? Creatinine 2.20 on admit, baseline 0.7-0.8. No chronic kidney disease at baseline. Creatinine improved back to baseline by hospital day 3 after IV fluid resuscitation. Presumed prerenal from shock as noted above. Monitor daily BMP and urine output. 3. Recent acute upper respiratory infection ? CT chest on admit showed incidentally noted groundglass opacities concerning for pneumonitis versus pneumonia. Respiratory infectious workup negative to this point. Patient stable on room air at rest. No need for active treatment, supportive care as needed. 4. Sinus tachycardia and hypertension ? 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 Has hypertension at baseline and has not been getting p.o. medications with NG tube in place. Given doses of IV Lopressor and IV Cardizem with mild improvement but both heart rate and blood pressure then worsened again. Started nicardipine drip on 12/28 with improvement in blood pressure and heart rate remaining stable. Will continue Cardene drip today and plan to restart home medications tomorrow. Chronic medical conditions: ? Class I obesity: BMI 33 on admit. Complicates hospital course, care and prognosis. ? Chronic HFpEF, hypertension, hyperlipidemia, history of CVA with residual right-sided hemiparesis: Home meds on hold with NG tube in place and n.p.o. status for now. Resume when able. ? Type 2 diabetes mellitus with neuropathy: Treating with sliding scale insulin every 6 hours for now, adjust as needed. Resume home pregabalin when able. ? Anxiety/depression: Will resume home venlafaxine on 12/28 to avoid withdrawal symptoms. ? GERD: Continue IV PPI daily for now. ? COPD: Stable on room air, not in acute exacerbation. Continue home inhalers. ? Former tobacco use: Encouraged continued cessation. DVT prophylaxis: SCDs CODE STATUS: Full code, verified Expected disposition: TBD Total clinical time spent by myself addressing the patient's medical issues, reviewing all the data, and collaborating with patient's care team: 35 minutes. Charges/Coding Visit Charges Inpatient E&M: 26565 Subs Hosp L2
--- NOTE | 2024-12-28 09:43 | PN.SURG_ITS ---
Subjective Subjective Patient with elevated blood pressure and mild tachycardia overnight. Did not effectively resolved with Lopressor or hydralazine. Patient complains of slightly more pain today than yesterday. She remains afebrile. White blood count did increase overnight. PETE drain output about 35 and serosanguineous and nonbilious. She still complains of discomfort secondary to NG. The importance of NG tube was again stressed. Objective Data Objective Data Vital Signs: Vital Signs Temp Pulse Resp BP Pulse Ox O2 Del Method O2 Flow Rate 97.8 F 104 H 18 157/95 H 95 Room Air 2 12/28/24 05:00 12/28/24 07:00 12/28/24 07:00 12/28/24 07:00 12/28/24 07:00 12/28/24 07:00 12/27/24 17:00 Oxygen Flow Rate (L/min) 2 Oxygen Delivery Method Room Air Weight: 197 lb 5.019 oz Body Mass Index (BMI) 32.8 Intake & Output: Intake and Output for Last 24 Hours 12/26/24 12/27/24 12/28/24 23:59 23:59 23:59 Intake Total 2228.79 / 2229.74 1392.90 / 1392.90 95.5 / 95.5 Output Total 2065 / 2065 400 / 400 Balance 2228.79 / 2109.74 -672.10 / -672.10 -304.5 / -304.5 Lab / Micro Data 12/28/24 05:00 12/28/24 05:00 Labs: Laboratory Results - last 24 hr 12/26/24 23:38: POC Glucose 60 L 12/26/24 23:53: POC Glucose 99 12/27/24 12:17: POC Glucose 103 12/27/24 17:37: POC Glucose 112 H 12/27/24 23:07: POC Glucose 114 H 12/28/24 05:00: WBC 19.5 H, RBC 2.86 L, Hgb 8.6 L, Hct 28.2 L, MCV 98.6, MCH 30.1, MCHC 30.5 L, RDW Std Deviation 59.7 H, RDW Coeff of Lencho 16.5 H, Plt Count 236, MPV 9.9, Sodium 141, Potassium 4.8, Chloride 111 H, Carbon Dioxide 17.0 L, Anion Gap 12, BUN 26 H, Creatinine 0.90, Estim Creat Clear Calc 69.78, Est GFR (MDRD) Af Amer 81, Est GFR (MDRD) Non-Af 67, BUN/Creatinine Ratio 28.8 H, G lucose 121 H, Calcium 9.4 12/28/24 05:14: POC Glucose 126 H Micro: Microbiology 12/27/24 04:28 Mucosa - Nose Coronavirus COVID-19 PCR - Final 12/27/24 04:28 Mucosa - Nose Respiratory Panel (PCR) - Final 12/27/24 01:00 Urine Catheter - Sheriff Legionella Antigen - Final 12/27/24 01:00 Urine Catheter - Sheriff Streptococcus pneumoniae Antigen (M - Final 12/26/24 16:33 Mucosa - Nose SARS-CoV-2, Influenza & RSV (PCR) - Final Physical Exam Narrative She is alert and oriented x 3. She is in no acute distress. NG tube remains in place with minimal gastric output Abdomen is soft and appropriately tender. Dressing clean dry and intact. PETE drain with serosanguineous output. No bilious output from PETE Assessment & Plan Assessment/Plan (1) Perforated gastric ulcer: PLAN: Plan The patient is a 64-year-old female postoperative day #2 from exploratory laparotomy and oversew/Jelani patch of perforated anterior gastric ulcer. Continue n.p.o. and NG tube decompression. She remains on Zosyn and Diflucan. Continue IV PPI. Appreciate medical management. I am okay if she needs to resume p.o. meds for blood pressure control reasons. Will continue to monitor white blood cell count.
[2024-12-28] MEDS: Pantoprazole Sodium 40 MG in 0.9% Normal Saline (100mL MB+) 100 ML 330 MG IV (09:44)
[2024-12-28] MEDS: Venlafaxine HCl 75 MG Tablet PO (10:41)
[2024-12-28] MEDS: 0.9% Normal Saline (100mL Bag) 100 ML 15 ML IV (10:43)
[2024-12-28] MEDS: FLUCONAZOLE 100 MG IV (10:43)
[2024-12-28] MEDS: Phenol/Sodium Phenolate 180ML 3 SPRAY MUCOUS MEM ×2 (10:51→20:46)
--- NOTE | 2024-12-28 12:20 | RAD_ITS ---
PROCEDURE: CHEST 1 VIEW (PORTABLE) REASON FOR EXAM: Shortness of breath TECHNIQUE: Frontal view of the chest COMPARISON: 12/26/2024 FINDINGS: Gastric tube overlies the stomach The heart size is normal. There are atherosclerotic calcifications of the thoracic aorta. The lungs are clear. Degenerative changes are identified within the thoracic spine. RAD/Chest 1 View (Portable) IMPRESSION: No radiographic evidence of acute cardiopulmonary disease Reading Location: [facility]
--- NOTE | 2024-12-28 12:50 | PCM.PN.TICU ---
Objective Data Objective Data Vital Signs: Vital Signs Last response Temperature 36.4 C L 12/28/24 12:30 Temperature Source Temporal 12/28/24 12:30 Pulse Rate 81 12/28/24 12:30 Pulse Strength Normal (2+) 12/28/24 10:00 Respiratory Rate 18 12/28/24 12:12 Respiratory Effort Normal, Non-Labored 12/28/24 09:00 Respiratory Depth Normal 12/28/24 09:00 Respiratory Pattern Normal 12/28/24 12:12 Blood Pressure 114/71 12/28/24 12:30 Blood Pressure Mean 85 12/28/24 12:30 Blood Pressure Source Monitor 12/28/24 12:30 Blood Pressure Position Semi-Fowlers 12/28/24 12:30 Blood Pressure Location Right Arm 12/28/24 12:30 Pulse Ox 95 12/28/24 12:00 Oxygen Delivery Method Room Air 12/28/24 12:00 Oxygen Flow Rate (L/min) 2 12/27/24 17:00 I&O: I&O Last 24 Hours 12/27/24 12/28/24 12/28/24 23:59 11:59 23:59 Intake Total 228.00 / 1392.90 448.0 / 498.0 50 / 498.0 Output Total 1250 / 2065 910 / 910 Balance -1022.00 / -672.10 -462.0 / -412.0 50 / -412.0 I&O: Total Stay 12/26/24 12:50 thru 12/28/24 12:30 Intake Total 4119.69 Output Total 2975 Balance 1144.69 Current Meds Ordered / Administered: Current meds ordered / Administered Generic Name Dose Route Start Last Admin Trade Name Freq PRN Reason Stop Dose Admin Acetaminophen 650 mg 12/26/24 22:41 Acetaminophen 650 Mg Suppository RC Q4H PRN PRN Fever, pain 1-10 Albuterol Sulfate 2.5 mg 12/26/24 22:41 Albuterol 2.5 Mg/3 Ml Vial.Neb. INHALATION Q2H PRN PRN Dyspnea, wheezing Albuterol/Ipratropium 3 ml 12/26/24 22:45 12/28/24 12:11 Ipratropium/Albuterol Sulfate 3 Ml Ampul.Neb INHALATION 3 ml Q6HWA.RT [facility] Administration Amitriptyline HCl 25 mg 12/27/24 22:00 12/27/24 20:13 Amitriptyline 25 Mg Tablet PO Not Given QHS [facility] Atorvastatin Calcium 40 mg 12/27/24 22:00 12/27/24 20:13 Atorvastatin Calcium 40 Mg Tablet PO Not Given QHS [facility] Budesonide 0.5 mg 12/27/24 07:50 12/28/24 07:00 Budesonide Respules 0.5 Mg/2 Ml Ampul.Neb. INHALATION 0.5 mg Q12H.RT [facility] Administration Carvedilol 25 mg 12/28/24 08:00 12/28/24 09:46 Carvedilol 25 Mg Tablet PO Not Given BIDCM [facility] Cholecalciferol 50 mcg 12/27/24 10:00 12/28/24 09:46 Cholecalciferol (Vit D3) 25 Mcg Tablet (1,000 Units) PO Not Given DAILY [facility] Glucagon 1 mg 12/26/24 22:41 Glucagon 1 Mg/Ml Syringe IM X1 PRN Hypoglycemia Protocol Hydralazine HCl 10 mg 12/26/24 22:41 12/28/24 03:47 Hydralazine 20 Mg/Ml Vial IV 10 mg Q4H PRN PRN Administration SBP > 160 Protocol Piperacillin Sod/Tazobactam 50 mls @ 12.5 mls/hr 12/27/24 06:00 12/28/24 09:46 Sod 3.375 gm/ Sodium Chloride IV Infused Q8 [facility] Infusion Pantoprazole Sodium 40 mg/ 110 mls @ 330 mls/hr 12/27/24 10:00 12/28/24 10:36 Sodium Chloride IV Infused Q24 [facility] Infusion Fluconazole 100 mls @ 100 mls/hr 12/27/24 10:00 12/28/24 11:45 IV Infused Q24 [facility] Infusion Dextrose 250 mls @ 0 mls/hr 12/26/24 22:41 12/26/24 23:49 Dextrose 10%-Water IV Infused .Q0M PRN Infusion HYPOGLYCEMIA Protocol As Directed Sodium Chloride 100 mls @ 15 mls/hr 12/27/24 00:07 12/28/24 10:43 IV 15 mls/hr .Q6H40M PRN Administration SALINE FLUSH Sodium Chloride 100 mls @ 15 mls/hr 12/27/24 00:07 IV .Q6H40M PRN Saline Flush Sodium Chloride 100 mls @ 15 mls/hr 12/27/24 00:07 IV .Q6H40M PRN Additional IVPB Infusion Nicardipine HCl 25 mg/ Sodium 250 mls @ 50 mls/hr 12/28/24 09:15 12/28/24 12:30 Chloride CONT INF 0 mg/hr .Q5H [facility] 0 mls/hr Titration Protocol 5 MG/HR Lactated Ringer's 1,000 mls @ 100 mls/hr 12/28/24 11:30 IV 12/28/24 21:29 .Q10H [facility] Protocol Insulin Human Lispro 0 unit 12/26/24 22:45 12/28/24 12:31 Insulin Lispro 100 Unit/Ml Insuln.Pen SC Not Given Q6H [facility] Protocol Labetalol HCl 20 mg 12/28/24 12:00 12/28/24 12:26 Labetalol 20mg/4ml Syringe IV 20 mg Q4H [facility] Administration Protocol Levothyroxine Sodium 125 mcg 12/28/24 06:00 12/28/24 05:09 Levothyroxine 125 Mcg Tablet PO Not Given DAILY@0600 [facility] Loratadine 10 mg 12/27/24 10:00 12/28/24 09:46 Loratadine 10 Mg Tablet PO Not Given DAILY [facility] Morphine Sulfate 2 - 4 mg 12/26/24 22:38 12/28/24 09:35 Morphine 2 Mg/Ml Syringe IV 2 mg Q3H PRN PRN Administration Pain Score 6-10 Ondansetron HCl 4 mg 12/26/24 22:38 Ondansetron 4 Mg/2 Ml Vial IV Q8H PRN PRN NAUSEA/VOMITING Phenol/Menthol 3 spray 12/27/24 13:53 12/28/24 10:51 Phenol/Sodium Phenolate 180ml MUCOUS MEM 3 spray Q2H PRN PRN Administration SORE THROAT Pregabalin 100 mg 12/27/24 10:00 12/28/24 09:46 Pregabalin 50 Mg Capsule PO Not Given DAILY [facility] Sacubitril/Valsartan 1 each 12/28/24 10:00 12/28/24 09:46 Sacubitril/Valsartan 49-51 Mg Tablet PO Not Given BID [facility] Sodium Chloride 10 - 40 ml 12/27/24 00:07 12/28/24 06:55 0.9 % Nacl (Sterile) Posiflush 10 Ml IV 10 ml UD PRN Administration Port access or dressing change Sodium Chloride 10 - 40 ml 12/27/24 00:07 0.9% Saline Lock 10 Ml Syringe IV UD PRN Midline Flush Sodium Chloride 10 - 40 ml 12/27/24 00:07 0.9% Saline Lock 10 Ml Syringe IV UD PRN SALINE FLUSH Venlafaxine HCl 150 mg 12/27/24 22:00 12/27/24 20:13 Venlafaxine Hcl 75 Mg Tablet PO Not Given QHS [facility] Venlafaxine HCl 75 mg 12/27/24 10:00 12/28/24 10:41 Venlafaxine Hcl 75 Mg Tablet PO 75 mg DAILY [facility] Administration Lab / Micro Data 12/28/24 05:00 12/28/24 05:00 Labs: Laboratory Results - last 24 hr 12/26/24 23:38: POC Glucose 60 L 12/26/24 23:53: POC Glucose 99 12/27/24 12:17: POC Glucose 103 12/27/24 17:37: POC Glucose 112 H 12/27/24 23:07: POC Glucose 114 H 12/28/24 05:00: WBC 19.5 H, RBC 2.86 L, Hgb 8.6 L, Hct 28.2 L, MCV 98.6, MCH 30.1, MCHC 30.5 L, RDW Std Deviation 59.7 H, RDW Coeff of Lencho 16.5 H, Plt Count 236, MPV 9.9, Sodium 141, Potassium 4.8, Chloride 111 H, Carbon Dioxide 17.0 L, Anion Gap 12, BUN 26 H, Creatinine 0.90, Estim Creat Clear Calc 69.78, Est GFR (MDRD) Af Amer 81, Est GFR (MDRD) Non-Af 67, BUN/Creatinine Ratio 28.8 H, Glucose 121 H, Calcium 9.4 12/28/24 05:14: POC Glucose 126 H Micro: Microbiology 12/27/24 04:28 Mucosa - Nose Coronavirus COVID-19 PCR - Final 12/27/24 04:28 Mucosa - Nose Respiratory Panel (PCR) - Final Imaging Radiology Impression Chest X-Ray 12/28/24 12:20 IMPRESSION: No radiographic evidence of acute cardiopulmonary disease Reading Location: [facility] Assessment and Plan . Assessment and plan: ICU Problem List: Hypovolemic hypotension/shock Acute blood loss anemia Perforation of peptic ulcer hypovolemia and tachycardia HTN, acute on chronic Plan: PPI BID NG in place for decompression LR 100cc/hr for 10 hours for sinus tach recommend escalating pain control as her tachy and HTN could be related to that scheduled IV labetalol 10mg q4h with hold parameters to wean off cardene drip Maldonado Garay MD [facility] Access TeleCare Critical Care Time: 55 minutes The entirety of this encounter was done via Telemedicine Physical Exam Narrative She is alert and oriented x 3. She is in no acute distress. NG tube remains in place with minimal gastric output Abdomen is soft and appropriately tender. Dressing clean dry and intact. PETE drain with serosanguineous output. No bilious output from PETE Subjective Subjective CC: pain 8/10 HPI review: post op from PUD perf 12/27 - on low dose NE and weaned off 12/28 - HTNive and tachy overnight. No fluid given, but started on cardene drip after several IV push meds unsuccessfull at controlling BP. Sinus tach on tele. C/o 8/10 abdominal pain after 4mg morphine IV.
[2024-12-28 12:56] LABS: Bedside Glucose 124 mg/dL (74-106)
[2024-12-28] MEDS: Lactated Ringers 1,000 ML 100 ML IV (13:50)
--- NOTE | 2024-12-28 15:19 | NURSING ---
Cardene gtt at 5mg/hr at 1430 and 1445 12/28/24. See charted vitals.
[2024-12-28 18:03] LABS: Bedside Glucose 136 mg/dL (74-106)
[2024-12-28] MEDS: NICARdipine 25 MG in 0.9% Normal Saline (250mL Bag) 240 ML 75 MG CONT INF (18:52)
[2024-12-28] MEDS: Venlafaxine HCl 75 MG Tablet 150 MG PO (20:43)
[2024-12-28] MEDS: NICARdipine 25 MG in 0.9% Normal Saline (250mL Bag) 240 ML 100 MG CONT INF (22:06)
[2024-12-29] VITALS (34 sets, daily range): BP systolic 103–152; BP diastolic 57–91; PULSE 79–110; RESP 12–23; TEMP 36.3–36.6; O2SAT 92–99; BMI 32.3
[2024-12-29] MEDS: NICARdipine 25 MG in 0.9% Normal Saline (250mL Bag) 240 ML 100 MG CONT INF ×4 (00:26→07:56)
[2024-12-29 00:46] LABS: Bedside Glucose 146 mg/dL (74-106)
[2024-12-29] MEDS: 0.9 % NaCl (Sterile) Posiflush 10 mL IV (05:13)
[2024-12-29] MEDS: Piperacil/Tazobactam 3.375 GM in 0.9% Normal Saline (50mL MB+) 50 ML IV ×3 (05:13→20:40)
[2024-12-29] MEDS: Morphine 2 MG/ML Syringe IV ×4 (05:29→21:20)
[2024-12-29 05:34] LABS: Hematocrit 26.3 % (37-47); Hemoglobin 8.3 g/dL (12.0-15.0); Mean Corp Hgb Conc 31.6 g/dL (32-36); Mean Corpuscular Hgb 30.4 pg (27.0-32.0); Mean Corpuscular Volume 96.3 fL (81-99); Mean Platelet Vol. 9.8 fl (6.2-12.0); Platelet Count 167 K/mm3 (150-450); RBC Distribution Width SD 57.3 fl (35.1-43.9); Red Blood Count 2.73 M/mm3 (4.2-5.4); White Blood Count 12.9 K/mm3 (4.4-11.0)
[2024-12-29 05:48] LABS: Anion Gap 11 (5-15); BUN 14 mg/dL (7-18); BUN/Creat Ratio 22.9 RATIO (10-20); Calcium,Total 9.1 mg/dL (8.5-10.1); Chloride 105 mmol/L (98-107); Creatinine, Serum 0.61 mg/dL (0.55-1.02); EST Glomerular Filtration Rate 105 mL/min (>60); Est Glom Filt Rate - Afr Amer 127 mL/min (>60); Estimated Creatinine Clearance 102.96 ml/min; Glucose 157 mg/dL (74-106); Potassium 3.5 mmol/L (3.5-5.1); Sodium Level 138 mmol/L (136-145)
--- NOTE | 2024-12-29 07:33 | PN.SURG_ITS ---
Subjective Subjective Patient evaluated resting comfortably in bed. She notes incisional pain. She denies any flatus or bowel movement. She notes some throat discomfort from the NG tube. Per nursing, patient has had some issues with blood pressure control and is hoping patient may resume her normal blood pressure meds through the NG tube. Objective Data Objective Data Vital Signs: Vital Signs Temp Pulse Resp BP Pulse Ox O2 Del Method O2 Flow Rate 97.4 F L 104 H 19 H 121/83 H 92 Room Air 2 12/29/24 05:00 12/29/24 07:00 12/29/24 07:00 12/29/24 07:00 12/29/24 07:00 12/29/24 07:00 12/28/24 14:01 Oxygen Flow Rate (L/min) 2 Oxygen Delivery Method Room Air Weight: 194 lb 3.636 oz Body Mass Index (BMI) 32.3 Intake & Output: Intake and Output for Last 24 Hours 12/27/24 12/28/24 12/29/24 23:59 23:59 23:59 Intake Total 1392.90 / 1392.90 2262.50 / 2362.50 850.00 / 850.00 Output Total 2065 / 2065 3495 / 3495 2365 / 2365 Balance -672.10 / -672.10 -1232.50 / -1132.50 -1515.00 / -1515.00 Lab / Micro Data 12/29/24 05:15 12/29/24 05:15 Labs: Laboratory Results - last 24 hr 12/28/24 12:25: POC Glucose 124 H 12/28/24 17:44: POC Glucose 136 H 12/29/24 00:18: POC Glucose 146 H 12/29/24 05:15: WBC 12.9 H, RBC 2.73 L, Hgb 8.3 L, Hct 26.3 L, MCV 96.3, MCH 30.4, MCHC 31.6 L, RDW Std Deviation 57.3 H, RDW Coeff of Lencho 16.0 H, Plt Count 167, MPV 9.8, Sodium 138, Potassium 3.5, Chloride 105, Carbon Dioxide 22.0, Anion Gap 11, BUN 14, Creatinine 0.61, Estim Creat Clear Calc 102.96, Est GFR (MDRD) Af Amer 127, Est GFR (MDRD) Non-Af 105, BUN/Creatinine Ratio 22.9 H, G lucose 157 H, Calcium 9.1 Micro: Microbiology 12/27/24 04:28 Mucosa - Nose Coronavirus COVID-19 PCR - Final 12/27/24 04:28 Mucosa - Nose Respiratory Panel (PCR) - Final 12/27/24 01:00 Urine Catheter - Sheriff Legionella Antigen - Final 12/27/24 01:00 Urine Catheter - Sheriff Streptococcus pneumoniae Antigen (M - Final 12/26/24 16:33 Mucosa - Nose SARS-CoV-2, Influenza & RSV (PCR) - Final Radiography Diagnostic Testing: Radiology Impression Chest X-Ray 12/28/24 12:20 IMPRESSION: No radiographic evidence of acute cardiopulmonary disease Reading Location: [facility] Physical Exam GI GI Narrative: Abdomen- soft, tenderness at the incision site. Incision c/d/i. Supa intact. ABD pad dressing over top of the incision. PETE drain intact with serosangineous drainage. Hypoactive bowel sounds. Assessment & Plan Assessment/Plan (1) Perforated gastric ulcer: QUALIFIERS: Gastric ulcer chronicity: acute Qualified Code(s): K 25.1 - Acute gastric ulcer with perforation PLAN: I am following this patient in conjunction with Dr. Ramirez. He will independently evaluate this patient. Labs reviewed. WBC is trending down Continue IV antibiotics for another day Recheck labs tomorrow morning Keep PETE drain in place Continue NG tube and await bowel function Recommend sitting in the chair today We will continue to monitor this patient Charges/Coding Visit Charges Inpatient E&M: 26430 Subs Hosp L1 (post-op; no charge)
--- NOTE | 2024-12-29 07:54 | PCM.PN.INT ---
Assessment & Plan Assessment/Plan (1) Perforated gastric ulcer: QUALIFIERS: Gastric ulcer chronicity: acute Qualified Code(s): K25.1 - Acute gastric ulcer with perforation PLAN: Plan RECOMMENDATIONS: 1. Antibiotics per ID recommendations. 2. Encourage incentive spirometer use and mobilize patient as tolerated. 3. Restart home antihypertensives and wean from Cardene. 4. Continue PPI therapy. IMPRESSIONS: 1. Abdominal pain secondary to perforated gastric ulcer status post surgical intervention The patient ultimately underwent a diagnostic laparoscopy with exploratory laparotomy and oversew of perforated anterior gastric ulcer on December 26. She remains clinically stable. Plan to continue NG tube and antimicrobials per general surgery. 2. Anemia/hypertension/heart failure with preserved ejection fraction/diabetes mellitus/anxiety/GERD/COPD Complicates care, management, recovery and prognosis. Continue to monitor blood counts daily and transfuse if hemoglobin drops below 7 g/dL. Restart home antihypertensives and wean from nicardipine. Remainder of care per general surgery recommendations. This note was generated with [employer] dictation software. It may contain incorrect words, spelling, and punctuation that were not noted in checking the note before signing. Subjective Subjective The patient was seen and examined at the bedside this morning. Events from the last 24 hours have been reviewed. The patient is currently afebrile, hemodynamically stable and maintaining appropriate oxygen saturations on room air. The patient reported that her pain is currently under adequate control this morning. Although she remains on a Cardene infusion, her p.o. antihypertensive home medications were just administered this morning. White blood cell count this morning was noted to be 13,000 with a hemoglobin of 8.3 g/dL and platelet count of 167,000. Chemistry profile was unremarkable. Objective Data Objective Data The patient's most recent lab work, culture data and imaging studies have all been personally reviewed. Infectious workup has been unrevealing to date. Vital Signs: Vital Signs Temp Pulse Resp BP Pulse Ox O2 Del Method O2 Flow Rate 97.4 F L 104 H 19 H 121/83 H 92 Room Air 2 12/29/24 05:00 12/29/24 07:00 12/29/24 07:00 12/29/24 07:00 12/29/24 07:00 12/29/24 07:00 12/28/24 14:01 Oxygen Flow Rate (L/min) 2 Oxygen Delivery Method Room Air Weight: 194 lb 3.636 oz Body Mass Index (BMI) 32.3 Intake & Output: Intake and Output for Last 24 Hours 12/27/24 12/28/24 12/29/24 23:59 23:59 23:59 Intake Total 1392.90 / 1392.90 2262.50 / 2362.50 850.00 / 850.00 Output Total 2065 / 2065 3495 / 3495 2365 / 2365 Balance -672.10 / -672.10 -1232.50 / -1132.50 -1515.00 / -1515.00 Lab / Micro Data Attestation: I reviewed the patient's lab results. 12/29/24 05:15 12/29/24 05:15 Labs: Laboratory Results - last 24 hr 12/28/24 12:25: POC Glucose 124 H 12/28/24 17:44: POC Glucose 136 H 12/29/24 00:18: POC Glucose 146 H 12/29/24 05:15: WBC 12.9 H, RBC 2.73 L, Hgb 8.3 L, Hct 26.3 L, MCV 96.3, MCH 30.4, MCHC 31.6 L, RDW Std Deviation 57.3 H, RDW Coeff of Lencho 16.0 H, Plt Count 167, MPV 9.8, Sodium 138, Potassium 3.5, Chloride 105, Carbon Dioxide 22.0, Anion Gap 11, BUN 14, Creatinine 0.61, Estim Creat Clear Calc 102.96, Est GFR (MDRD) Af Amer 127, Est GFR (MDRD) Non-Af 105, BUN/Creatinine Ratio 22.9 H, Glucose 157 H, Calcium 9.1 Micro: Microbiology 12/27/24 04:28 Mucosa - Nose Coronavirus COVID-19 PCR - Final 12/27/24 04:28 Mucosa - Nose Respiratory Panel (PCR) - Final 12/27/24 01:00 Urine Catheter - Sheriff Legionella Antigen - Final 12/27/24 01:00 Urine Catheter - Sheriff Streptococcus pneumoniae Antigen (M - Final 12/26/24 16:33 Mucosa - Nose SARS-CoV-2, Influenza & RSV (PCR) - Final Radiography Diagnostic Testing: Radiology Impression Chest X-Ray 12/28/24 12:20 IMPRESSION: No radiographic evidence of acute cardiopulmonary disease [facility] Physical Exam Const alert and no apparent distress General Appearance: cooperative HEENT normocephalic and head/scalp atraumatic HEENT Narrative: Nasogastric tube in place. Eyes PERRL, EOMs intact bilaterally and conjunctivae normal Neck supple General: trachea midline Chest inspection of chest normal Resp normal respiratory effort Auscultation: Negative for rales, rhonchi or wheezes Cardio regular rate and regular rhythm GI soft to palpation GI Narrative: PETE drain in place Inspection: incision Palpation: tender Extremity no clubbing, cyanosis or edema Skin no rashes or lesions noted Neuro CN's II-XII intact bilaterally, moves all extremities and no focal motor deficits Psych Mood & Affect: flat affect Charges/Coding Visit Charges Inpatient E&M: 26525 Subs Hosp L2
[2024-12-29] MEDS: Cholecalciferol (VIT D3) 25 MCG TABLET (1,000 UNITS) 50 MCG PO (07:56)
[2024-12-29] MEDS: Loratadine 10 MG Tablet PO (07:57)
[2024-12-29] MEDS: Venlafaxine HCl 75 MG Tablet PO (07:57)
[2024-12-29] MEDS: Carvedilol 25 MG Tablet PO ×2 (07:58→17:36)
[2024-12-29] MEDS: SACUBITRIL/VALSARTAN 49-51 MG TABLET 1 EACH PO ×2 (07:58→20:40)
[2024-12-29] MEDS: Pantoprazole Sodium 40 MG in 0.9% Normal Saline (100mL MB+) 100 ML 330 MG IV (08:05)
[2024-12-29] MEDS: Pregabalin 50 MG Capsule 100 MG PO (08:05)
[2024-12-29] MEDS: Budesonide Respules 0.5 MG/2 ML AMPUL.NEB. INHALATION ×2 (08:43→18:57)
[2024-12-29] MEDS: Ipratropium/Albuterol Sulfate 3 ML AMPUL.NEB INHALATION ×3 (08:43→18:57)
[2024-12-29] MEDS: FLUCONAZOLE 100 MG IV (10:11)
[2024-12-29 11:21] LABS: Bedside Glucose 148 mg/dL (74-106)
[2024-12-29 11:29] LABS: Bedside Glucose 125 mg/dL (74-106)
--- NOTE | 2024-12-29 12:42 | CHAPLAIN ---
Type of Pastoral Visit _x__ Initial Visit ___ Follow-up Visit ___ On-call Visit ___ General Patient Visit ___ Spiritual Assessment ___ Family Conference ___ Bereavement ___ Rapid Response ___ Code Blue ___ Other (describe below) Pastoral Care Referral From _x__ Patient ___ Family ___ Nurse ___ Physician ___ Test Deskman ___ Playground Official ___ Other (describe below) Sacrament/Intervention _x__ Active listening ___ Anointing ___ Oriental Orthodox ___ Bereavement ___ Communion ___ Jaye exploration ___ ___ Life review _x__ Prayer ___ Reconciliation ___ Sacrament of Sick _x__ Supportive presence ___ Wedding ___ Other (describe below) Pastoral Comments patient reviews a list of her health challenges; pt states that she is handling it 'as God doesn't give more than one can handle'; pt welcomes presence and prayer but denies any further needs
--- NOTE | 2024-12-29 15:56 | CASEMGMT ---
DRE DELGADILLO reviewed therapy notes, into discuss DC planning with patient. Pt sitting up in chair in no distress. Pt feels comfortable with going home, noted that Aide who helps her will be on vacation next week. Discussed SN, PT and OT services. Pt would like a referral made to [facility] in [place]. DRE DELGADILLO put order in for [facility] and asked DC planning assistance to make referral. DRE DELGADILLO called [facility] to discuss a different aide going out to assist pt next week. Kateryna states they have several aides out sick and 2 will be on vacation next week. States she will have a couple aides pop in to check on patient throughout the week but won't be able to stay the normal three hours. DRE DELGADILLO explained this to patient, pt states she feels she can handle being home and is ok with the aides coming when they are able to. Pt denies any questions or concerns at this time.
--- NOTE | 2024-12-29 16:23 | CASEMGMT ---
HH referral sent to [facility]. Varsha Hernandez DC Planning Asst.
--- NOTE | 2024-12-29 16:49 | PN.HOSP_ITS ---
Reason for Visit Reason for Visit: Diagnoses Acute gastric ulcer with perforation (12/26/24) Chronic or unspecified gastric ulcer with perforation (12/26/24) Other specified disorders of peritoneum (12/26/24) Acute kidney failure, unspecified (12/26/24) Subjective Subjective Patient was seen and examined today, she is alert and has been switched from IV hypertensive medication to oral blood pressure medicine down her NG tube. Patient's hemoglobin today was 8.3, white blood cell count was 12.9, chemistry profile was unremarkable. Objective Data Objective Data Vital Signs: Vital Signs Temp Pulse Resp BP Pulse Ox O2 Del Method O2 Flow Rate 97.9 F 90 18 134/91 H 98 Room Air 2 12/29/24 08:00 12/29/24 16:00 12/29/24 16:00 12/29/24 16:00 12/29/24 16:00 12/29/24 16:00 12/28/24 14:01 Oxygen Flow Rate (L/min) 2 Oxygen Delivery Method Room Air Weight: 88.1 kg Body Mass Index (BMI) 32.3 Intake & Output: Intake and Output for Last 24 Hours 12/27/24 12/28/24 12/29/24 23:59 23:59 23:59 Intake Total 1392.90 / 1392.90 2262.50 / 2362.50 1351.67 / 1351.67 Output Total 2065 / 2065 3495 / 3495 3215 / 3215 Balance -672.10 / -672.10 -1232.50 / -1132.50 -1863.33 / -1863.33 Lab / Micro Data 12/29/24 05:15 12/29/24 05:15 Labs: Laboratory Results - last 24 hr 12/28/24 17:44: POC Glucose 136 H 12/29/24 00:18: POC Glucose 146 H 12/29/24 05:15: WBC 12.9 H, RBC 2.73 L, Hgb 8.3 L, Hct 26.3 L, MCV 96.3, MCH 30.4, MCHC 31.6 L, RDW Std Deviation 57.3 H, RDW Coeff of Lencho 16.0 H, Plt Count 167, MPV 9.8, Sodium 138, Potassium 3.5, Chloride 105, Carbon Dioxide 22.0, Anion Gap 11, BUN 14, Creatinine 0.61, Estim Creat Clear Calc 102.96, Est GFR (MDRD) Af Amer 127, Est GFR (MDRD) Non-Af 105, BUN/Creatinine Ratio 22.9 H, G lucose 157 H, Calcium 9.1 12/29/24 05:18: POC Glucose 148 H 12/29/24 11:10: POC Glucose 125 H Micro: Microbiology 12/27/24 04:28 Mucosa - Nose Coronavirus COVID-19 PCR - Final 12/27/24 04:28 Mucosa - Nose Respiratory Panel (PCR) - Final 12/27/24 01:00 Urine Catheter - Sheriff Legionella Antigen - Final 12/27/24 01:00 Urine Catheter - Sheriff Streptococcus pneumoniae Antigen (M - Final 12/26/24 16:33 Mucosa - Nose SARS-CoV-2, Influenza & RSV (PCR) - Final Physical Exam Const alert and no apparent distress General Appearance: cooperative, well kempt and well developed Orientation / Consciousness: awake, oriented to person and oriented to place HEENT normocephalic, head/scalp atraumatic and moist oral mucous membranes Eyes PERRL, EOMs intact bilaterally and conjunctivae normal Neck supple, no JVD, thyroid normal and no carotid bruits General: trachea midline Resp normal respiratory effort, no retractions, no use of accessory muscles and clear to auscultation bilaterally Auscultation: Negative for rales, rhonchi or wheezes Cardio regular rate, regular rhythm, S1 normal heart sound, S2 normal heart sound, no murmurs, no rub and no gallops GI normal to inspection, nondistended, normoactive bowel sounds, soft to palpation, non-tender and non-distended Extremity no clubbing, cyanosis or edema Skin no rashes or lesions noted General Skin Exam: no breakdown Neuro oriented x3, CN's II-XII intact bilaterally, moves all extremities, no focal motor deficits and no sensory deficits noted Sensorium / Orientation: awake and alert Speech: speech normal Psych affect normal Assessment & Plan Assessment/Plan (1) Perforated gastric ulcer: QUALIFIERS: Gastric ulcer chronicity: acute Qualified Code(s): K 25.1 - Acute gastric ulcer with perforation PLAN: Plan 1. Perforated gastric ulcer-patient is being seen by critical care and surgery on a daily basis, continue present medications #2 essential hypertension-continue present medications, monitor blood pressure #3 anemia secondary to blood loss from perforated gastric ulcer-labs will be monitored, patient does not require blood transfusion at this time #4 chronic heart failure with reduced ejection fraction-patient remains on Entresto #5 chronic depression-patient is on Effexor #6 hypothyroidism-patient is on Synthroid Total clinical time spent by myself addressing the patient's medical issues, reviewing all of her data, and collaborating with patient's care team: 35 minutes Charges/Coding Visit Charges Inpatient E&M: 64797 Subs Hosp L2
[2024-12-29 18:33] LABS: Bedside Glucose 106 mg/dL (74-106)
[2024-12-29] MEDS: Atorvastatin Calcium 40 MG Tablet PO (20:41)
[2024-12-29] MEDS: Amitriptyline 25 MG Tablet PO (20:44)
[2024-12-29] MEDS: Venlafaxine HCl 75 MG Tablet 150 MG PO (20:45)
[2024-12-30] VITALS (15 sets, daily range): BP systolic 149–181; BP diastolic 47–96; PULSE 61–110; RESP 12–20; TEMP 36.3; O2SAT 91–97; BMI 31.7
[2024-12-30 00:38] LABS: Bedside Glucose 93 mg/dL (74-106)
[2024-12-30 03:36] LABS: Absolute Lymphocyte Count 0.99 X10^3/uL (0.83-4.51); Absolute Neutrophil Count 7.9 X10^3/uL (2.0-7.7); Basophil# 0.02 X10^3/uL; Basophil% 0.2 % (0-1); Eosinophil# 0.01 X10^3/uL; Eosinophils% 0.1 % (0-5); Hematocrit 24.1 % (37-47); Hemoglobin 7.6 g/dL (12.0-15.0); Lymphocyte # 0.99 X10^3/ul (0.83-4.51); Lymphocyte % 10.3 % (19-41); Mean Corp Hgb Conc 31.5 g/dL (32-36); Mean Corpuscular Hgb 30.4 pg (27.0-32.0); Mean Corpuscular Volume 96.4 fL (81-99); Mean Platelet Vol. 9.8 fl (6.2-12.0); Monocyte# 0.56 X10^3/uL; Monocyte% 5.8 % (0-10); NRBC Flagged by Analyzer 0 % (0-5); Neutrophil # 7.92 X10^3/uL (2.7-7.7); Neutrophil % 82.5 % (47-70); Platelet Count 132 K/mm3 (150-450); RBC Distribution Width CV 15.9 % (11.6-14.6); RBC Distribution Width SD 55.8 fl (35.1-43.9); White Blood Count 9.6 K/mm3 (4.4-11.0)
[2024-12-30 04:04] LABS: Anion Gap 9 (5-15); BUN 13 mg/dL (7-18); BUN/Creat Ratio 23.9 RATIO (10-20); Calcium,Total 8.7 mg/dL (8.5-10.1); Chloride 106 mmol/L (98-107); Creatinine, Serum 0.54 mg/dL (0.55-1.02); EST Glomerular Filtration Rate 120 mL/min (>60); Est Glom Filt Rate - Afr Amer 145 mL/min (>60); Estimated Creatinine Clearance 115.38 ml/min; Glucose 97 mg/dL (74-106); Potassium 2.7 mmol/L (3.5-5.1); Sodium Level 140 mmol/L (136-145)
[2024-12-30] MEDS: Potassium Chloride Oral Soln 20 MEQ/15 ML UDC 60 MEQ PO (04:19)
[2024-12-30] MEDS: hydrALAZINE 20 MG/ML Vial 10 MG IV (04:51)
[2024-12-30] MEDS: Piperacil/Tazobactam 3.375 GM in 0.9% Normal Saline (50mL MB+) 50 ML IV (04:52)
[2024-12-30] MEDS: Morphine 2 MG/ML Syringe IV ×2 (06:08→17:42)
[2024-12-30] MEDS: Potassium Chloride Oral Soln 20 MEQ/15 ML UDC 40 MEQ PO (06:09)
[2024-12-30] MEDS: Levothyroxine 125 MCG Tablet PO (06:09)
[2024-12-30 06:50] LABS: Anion Gap 7 (5-15); BUN 12 mg/dL (7-18); BUN/Creat Ratio 23.6 RATIO (10-20); Calcium,Total 8.9 mg/dL (8.5-10.1); Chloride 108 mmol/L (98-107); Creatinine, Serum 0.51 mg/dL (0.55-1.02); EST Glomerular Filtration Rate 130 mL/min (>60); Est Glom Filt Rate - Afr Amer 157 mL/min (>60); Estimated Creatinine Clearance 121.04 ml/min; Glucose 106 mg/dL (74-106); Potassium 3.8 mmol/L (3.5-5.1); Sodium Level 140 mmol/L (136-145)
[2024-12-30] MEDS: Budesonide Respules 0.5 MG/2 ML AMPUL.NEB. INHALATION ×2 (06:50→19:40)
[2024-12-30] MEDS: Ipratropium/Albuterol Sulfate 3 ML AMPUL.NEB INHALATION ×3 (06:50→19:40)
[2024-12-30 07:06] LABS: Bedside Glucose 89 mg/dL (74-106)
[2024-12-30] MEDS: SACUBITRIL/VALSARTAN 49-51 MG TABLET 1 EACH PO ×2 (08:03→20:40)
[2024-12-30] MEDS: Venlafaxine HCl 75 MG Tablet PO (08:03)
[2024-12-30] MEDS: Carvedilol 25 MG Tablet PO ×2 (08:03→17:39)
[2024-12-30] MEDS: Loratadine 10 MG Tablet PO (08:04)
[2024-12-30] MEDS: Cholecalciferol (VIT D3) 25 MCG TABLET (1,000 UNITS) 50 MCG PO (08:04)
[2024-12-30] MEDS: Pregabalin 50 MG Capsule 100 MG PO (08:07)
--- NOTE | 2024-12-30 09:06 | CASEMGMT ---
Discharge Planning A list of HH providers including quality and resource use data and consistent with the patient's preferred geographic region, medical needs, and insurance network was created in [employer].? This list was provided to the RN ELIE. Varsha Hernandez, Discharge Planning Asst.
[2024-12-30] MEDS: Pantoprazole Sodium 40 MG in 0.9% Normal Saline (100mL MB+) 100 ML 330 MG IV (09:11)
[2024-12-30] MEDS: FLUCONAZOLE 100 MG IV (09:37)
--- NOTE | 2024-12-30 10:23 | PCM.PN.INT ---
Assessment & Plan Assessment/Plan (1) Perforated gastric ulcer: QUALIFIERS: Gastric ulcer chronicity: acute Qualified Code(s): K25.1 - Acute gastric ulcer with perforation PLAN: Plan RECOMMENDATIONS: 1. Continue antimicrobials per the discretion of primary service. 2. Encourage incentive spirometer use and mobilize patient as tolerated. 3. Continue home antihypertensives. 4. Continue PPI therapy. 5. The patient is medically stable for transfer out of the intensive care unit. Will sign off from a critical care perspective. IMPRESSIONS: 1. Abdominal pain secondary to perforated gastric ulcer status post surgical intervention The patient ultimately underwent a diagnostic laparoscopy with exploratory laparotomy and oversew of perforated anterior gastric ulcer on December 26. She remains clinically stable. Plan to continue NG tube and antimicrobials per general surgery. 2. Anemia/hypertension/heart failure with preserved ejection fraction/diabetes mellitus/anxiety/GERD/COPD Complicates care, management, recovery and prognosis. Continue to monitor blood counts daily and transfuse if hemoglobin drops below 7 g/dL. Continue home antihypertensives. Remainder of care per general surgery recommendations. This note was generated with [employer] dictation software. It may contain incorrect words, spelling, and punctuation that were not noted in checking the note before signing. Subjective Subjective The patient was seen and examined at the bedside this morning. Events from the last 24 hours have been reviewed. The patient is currently afebrile, hemodynamically stable and maintaining appropriate oxygen saturations on room air. The patient has been weaned from the Cardene infusion. White blood cell count remains normal. Hemoglobin is stable at 7.6 g/dL with a platelet count of 132,000. The patient has no specific complaints this morning. Objective Data Objective Data The patient's most recent lab work, culture data and imaging studies have all been personally reviewed. Infectious workup has been unrevealing to date. Vital Signs: Vital Signs Temp Pulse Resp BP Pulse Ox O2 Del Method O2 Flow Rate 97.3 F L 99 18 169/94 H 95 Room Air 1 12/30/24 00:00 12/30/24 09:00 12/30/24 09:00 12/30/24 09:00 12/30/24 09:00 12/30/24 09:00 12/29/24 18:57 Oxygen Flow Rate (L/min) 1 Oxygen Delivery Method Room Air Weight: 190 lb 11.198 oz Body Mass Index (BMI) 31.7 Intake & Output: Intake and Output for Last 24 Hours 12/28/24 12/29/24 12/30/24 23:59 23:59 23:59 Intake Total 2262.50 / 2362.50 1421.67 / 1421.67 210 / 210 Output Total 3495 / 3495 3222 / 3572 875 / 875 Balance -1232.50 / -1132.50 -1800.33 / -2150.33 -665 / -665 Lab / Micro Data Attestation: I reviewed the patient's lab results. 12/30/24 03:30 12/30/24 06:20 Labs: Laboratory Results - last 24 hr 12/29/24 05:18: POC Glucose 148 H 12/29/24 11:10: POC Glucose 125 H 12/29/24 18:05: POC Glucose 106 12/30/24 00:20: POC Glucose 93 12/30/24 03:30: WBC 9.6, RBC 2.50 L, Hgb 7.6 L, Hct 24.1 L, MCV 96.4, MCH 30.4, MCHC 31.5 L, RDW Std Deviation 55.8 H, RDW Coeff of Lencho 15.9 H, Plt Count 132 L, MPV 9.8, Immature Gran % (Auto) 1.100 H, Neut % (Auto) 82.5 H, Lymph % (Auto) 10.3 L, [place] % (Auto) 5.8, Eos % (Auto) 0.1, Baso % (Auto) 0.2, Absolute Neuts (auto) 7.9 H, Absolute Lymphs (auto) 0.99, Nucleated RBC % 0, Sodium 140, Potassium 2.7 L*, Chloride 106, Carbon Dioxide 25.0, Anion Gap 9, BUN 13, Creatinine 0.54 L, Estim Creat Clear Calc 115.38, Est GFR (MDRD) Af Amer 145, Est GFR (MDRD) Non-Af 120, BUN/Creatinine Ratio 23.9 H, Glucose 97, Calcium 8.7 12/30/24 06:20: Sodium 140, Potassium 3.8, Chloride 108 H, Carbon Dioxide 26.0, Anion Gap 7, BUN 12, Creatinine 0.51 L, Estim Creat Clear Calc 121.04, Est GFR (MDRD) Af Amer 157, Est GFR (MDRD) Non-Af 130, BUN/Creatinine Ratio 23.6 H, Glucose 106, Calcium 8.9 12/30/24 06:26: POC Glucose 89 Micro: Microbiology 12/27/24 04:28 Mucosa - Nose Coronavirus COVID-19 PCR - Final 12/27/24 04:28 Mucosa - Nose Respiratory Panel (PCR) - Final 12/27/24 01:00 Urine Catheter - Sheriff Legionella Antigen - Final 12/27/24 01:00 Urine Catheter - Sheriff Streptococcus pneumoniae Antigen (M - Final 12/26/24 16:33 Mucosa - Nose SARS-CoV-2, Influenza & RSV (PCR) - Final Radiography Diagnostic Testing: Radiology Impression Chest X-Ray 12/28/24 12:20 IMPRESSION: No radiographic evidence of acute cardiopulmonary disease Reading Location: [facility] Physical Exam Const alert and no apparent distress General Appearance: cooperative HEENT normocephalic and head/scalp atraumatic HEENT Narrative: Nasogastric tube remains in place. Eyes PERRL, EOMs intact bilaterally and conjunctivae normal Neck supple General: trachea midline Chest inspection of chest normal Resp normal respiratory effort Auscultation: Negative for rales, rhonchi or wheezes Cardio regular rate and regular rhythm GI soft to palpation Inspection: incision Palpation: tender Extremity no clubbing, cyanosis or edema Skin no rashes or lesions noted Neuro CN's II-XII intact bilaterally, moves all extremities and no focal motor deficits Psych Mood & Affect: flat affect Charges/Coding Visit Charges Inpatient E&M: 79377 Subs Hosp L2
--- NOTE | 2024-12-30 10:24 | PN.SURG_ITS ---
Subjective Subjective Patient evaluated resting comfortably in bed. She notes incisional discomfort. She denies nausea. She denies flatus, however feels bowel activity. She is urinating well. Objective Data Objective Data Vital Signs: Vital Signs Temp Pulse Resp BP Pulse Ox O2 Del Method O2 Flow Rate 97.3 F L 99 18 169/94 H 95 Room Air 1 12/30/24 00:00 12/30/24 09:00 12/30/24 09:00 12/30/24 09:00 12/30/24 09:00 12/30/24 09:00 12/29/24 18:57 Oxygen Flow Rate (L/min) 1 Oxygen Delivery Method Room Air Weight: 190 lb 11.198 oz Body Mass Index (BMI) 31.7 Intake & Output: Intake and Output for Last 24 Hours 12/28/24 12/29/24 12/30/24 23:59 23:59 23:59 Intake Total 2262.50 / 2362.50 1421.67 / 1421.67 210 / 210 Output Total 3495 / 3495 3222 / 3572 875 / 875 Balance -1232.50 / -1132.50 -1800.33 / -2150.33 -665 / -665 Lab / Micro Data 12/30/24 03:30 12/30/24 06:20 Labs: Laboratory Results - last 24 hr 12/29/24 05:18: POC Glucose 148 H 12/29/24 11:10: POC Glucose 125 H 12/29/24 18:05: POC Glucose 106 12/30/24 00:20: POC Glucose 93 12/30/24 03:30: WBC 9.6, RBC 2.50 L, Hgb 7.6 L, Hct 24.1 L, MCV 96.4, MCH 30.4, MCHC 31.5 L, RDW Std Deviation 55.8 H, RDW Coeff of Lencho 15.9 H, Plt Count 132 L, MPV 9.8, Immature Gran % (Auto) 1.100 H, Neut % (Auto) 82.5 H, Lymph % (Auto) 10.3 L, [place] % (Auto) 5.8, Eos % (Auto) 0.1, Baso % (Auto) 0.2, Absolute Neuts (auto) 7.9 H, Absolute Lymphs (auto) 0.99, Nucleated RBC % 0, Sodium 140, P otassium 2.7 L*, Chloride 106, Carbon Dioxide 25.0, Anion Gap 9, BUN 13, C reatinine 0.54 L, Estim Creat Clear Calc 115.38, Est GFR (MDRD) Af Amer 145, Est GFR (MDRD) Non-Af 120, BUN/Creatinine Ratio 23.9 H, Glucose 97, Calcium 8.7 12/30/24 06:20: Sodium 140, Potassium 3.8, Chloride 108 H, Carbon Dioxide 26.0, Anion Gap 7, BUN 12, Creatinine 0.51 L, Estim Creat Clear Calc 121.04, Est GFR (MDRD) Af Amer 157, Est GFR (MDRD) Non-Af 130, BUN/Creatinine Ratio 23.6 H, Glucose 106, Calcium 8.9 12/30/24 06:26: POC Glucose 89 Micro: Microbiology 12/27/24 04:28 Mucosa - Nose Coronavirus COVID-19 PCR - Final 12/27/24 04:28 Mucosa - Nose Respiratory Panel (PCR) - Final 12/27/24 01:00 Urine Catheter - Sheriff Legionella Antigen - Final 12/27/24 01:00 Urine Catheter - Sheriff Streptococcus pneumoniae Antigen (M - Final 12/26/24 16:33 Mucosa - Nose SARS-CoV-2, Influenza & RSV (PCR) - Final Physical Exam HEENT HEENT Narrative: NG tube in place GI GI Narrative: Abdomen- soft, slightly more distended today. Hypoactive bowel sounds. Incision c/d/i. No erythema or infection noted. Narrative: Sheriff in place Assessment & Plan Assessment/Plan (1) Perforated gastric ulcer: QUALIFIERS: Gastric ulcer chronicity: acute Qualified Code(s): K 25.1 - Acute gastric ulcer with perforation PLAN: I am following this patient in conjunction with Dr. Ramirez. He will independently evaluate this patient. Labs reviewed. WBC normal Will remove Sheriff catheter Continue NG tube until bowel function occurs Continue PETE drain Continue NPO Encourage ambulation and I.S. Ready for transfer out of the unit to PCU We will continue to monitor this patient Charges/Coding Visit Charges Inpatient E&M: 49514 Subs Hosp L1 (post-op; no charge)
[2024-12-30] MEDS: Albuterol 2.5 MG/3 ML VIAL.NEB. INHALATION (10:26)
--- NOTE | 2024-12-30 10:36 | CASEMGMT ---
DRE CM into pt room, provided list of [facility] agencies printed by DC workforce planning analyst. Pt to review and let me know top choices later today.
[2024-12-30 14:34] LABS: Bedside Glucose 110 mg/dL (74-106)
--- NOTE | 2024-12-30 14:37 | CASEMGMT ---
DRE CM into pt room, pt states top two choices for [facility] services are [facility] and [facility]. If they are unable to accept, pt states whoever can accept is ok with her.
--- NOTE | 2024-12-30 17:05 | PN.HOSP_ITS ---
Reason for Visit Reason for Visit: Diagnoses Acute gastric ulcer with perforation (12/26/24) Chronic or unspecified gastric ulcer with perforation (12/26/24) Other specified disorders of peritoneum (12/26/24) Acute kidney failure, unspecified (12/26/24) Subjective Subjective Patient was seen and examined today, she does not appear to be in distress, patient's hemoglobin today was 7.6. Patient's potassium today was 3.8. Objective Data Objective Data Vital Signs: Vital Signs Temp Pulse Resp BP Pulse Ox O2 Del Method O2 Flow Rate 97.3 F L 99 18 169/94 H 96 Room Air 1 12/30/24 00:00 12/30/24 12:19 12/30/24 12:19 12/30/24 09:00 12/30/24 15:04 12/30/24 12:19 12/29/24 18:57 Oxygen Flow Rate (L/min) 1 Oxygen Delivery Method Room Air Weight: 86.5 kg Body Mass Index (BMI) 31.7 Intake & Output: Intake and Output for Last 24 Hours 12/28/24 12/29/24 12/30/24 23:59 23:59 23:59 Intake Total 2262.50 / 2362.50 1421.67 / 1421.67 310 / 310 Output Total 3495 / 3495 3222 / 3572 1625 / 1625 Balance -1232.50 / -1132.50 -1800.33 / -2150.33 -1315 / -1315 Lab / Micro Data 12/30/24 03:30 12/30/24 06:20 Labs: Laboratory Results - last 24 hr 12/29/24 18:05: POC Glucose 106 12/30/24 00:20: POC Glucose 93 12/30/24 03:30: WBC 9.6, RBC 2.50 L, Hgb 7.6 L, Hct 24.1 L, MCV 96.4, MCH 30.4, MCHC 31.5 L, RDW Std Deviation 55.8 H, RDW Coeff of Lencho 15.9 H, Plt Count 132 L, MPV 9.8, Immature Gran % (Auto) 1.100 H, Neut % (Auto) 82.5 H, Lymph % (Auto) 10.3 L, [place] % (Auto) 5.8, Eos % (Auto) 0.1, Baso % (Auto) 0.2, Absolute Neuts (auto) 7.9 H, Absolute Lymphs (auto) 0.99, Nucleated RBC % 0, Sodium 140, P otassium 2.7 L*, Chloride 106, Carbon Dioxide 25.0, Anion Gap 9, BUN 13, C reatinine 0.54 L, Estim Creat Clear Calc 115.38, Est GFR (MDRD) Af Amer 145, Est GFR (MDRD) Non-Af 120, BUN/Creatinine Ratio 23.9 H, Glucose 97, Calcium 8.7 12/30/24 06:20: Sodium 140, Potassium 3.8, Chloride 108 H, Carbon Dioxide 26.0, Anion Gap 7, BUN 12, Creatinine 0.51 L, Estim Creat Clear Calc 121.04, Est GFR (MDRD) Af Amer 157, Est GFR (MDRD) Non-Af 130, BUN/Creatinine Ratio 23.6 H, Glucose 106, Calcium 8.9 12/30/24 06:26: POC Glucose 89 12/30/24 11:26: POC Glucose 110 H Micro: Microbiology 12/27/24 04:28 Mucosa - Nose Coronavirus COVID-19 PCR - Final 12/27/24 04:28 Mucosa - Nose Respiratory Panel (PCR) - Final 12/27/24 01:00 Urine Catheter - Sheriff Legionella Antigen - Final 12/27/24 01:00 Urine Catheter - Sheriff Streptococcus pneumoniae Antigen (M - Final 12/26/24 16:33 Mucosa - Nose SARS-CoV-2, Influenza & RSV (PCR) - Final Physical Exam Narrative alert and no apparent distress General Appearance: cooperative, well kempt and well developed Orientation / Consciousness: awake, oriented to person and oriented to place HEENT normocephalic, head/scalp atraumatic and moist oral mucous membranes Eyes PERRL, EOMs intact bilaterally and conjunctivae normal Neck supple, no JVD, thyroid normal and no carotid bruits General: trachea midline Resp normal respiratory effort, no retractions, no use of accessory muscles and clear to auscultation bilaterally Auscultation: Negative for rales, rhonchi or wheezes Cardio regular rate, regular rhythm, S1 normal heart sound, S2 normal heart sound, no murmurs, no rub and no gallops GI normal to inspection, nondistended, normoactive bowel sounds, soft to palpation, non-tender and non-distended Extremity no clubbing, cyanosis or edema Skin no rashes or lesions noted General Skin Exam: no breakdown Neuro oriented x3, CN's II-XII intact bilaterally, moves all extremities, no focal motor deficits and no sensory deficits noted Sensorium / Orientation: awake and alert Speech: speech normal Psych affect normal Assessment & Plan Assessment/Plan (1) Perforated gastric ulcer: QUALIFIERS: Gastric ulcer chronicity: acute Qualified Code(s): K 25.1 - Acute gastric ulcer with perforation PLAN: Plan 1. Perforated gastric ulcer-patient is being seen by critical care and surgery on a daily basis, continue present medications #2 essential hypertension-continue present medications, monitor blood pressure #3 anemia secondary to blood loss from perforated gastric ulcer-labs will be monitored, patient does not require blood transfusion at this time, CBC will be repeated tomorrow #4 chronic heart failure with reduced ejection fraction-patient remains on Entresto #5 chronic depression-patient is on Effexor #6 hypothyroidism-patient is on Synthroid Total clinical time spent by myself addressing the patient's medical issues, reviewing all of her data, and collaborating with patient's care team: 35 minutes Charges/Coding Visit Charges Inpatient E&M: 30116 Subs Hosp L2
[2024-12-30] MEDS: Atorvastatin Calcium 40 MG Tablet PO (20:40)
[2024-12-30] MEDS: Venlafaxine HCl 75 MG Tablet 150 MG PO (20:40)
[2024-12-30] MEDS: Amitriptyline 25 MG Tablet PO (20:40)
[2024-12-31] VITALS (8 sets, daily range): BP systolic 118–191; BP diastolic 80–110; PULSE 93–122; RESP 16–20; TEMP 36.3–36.9; O2SAT 94–100; BMI 31.1
[2024-12-31] MEDS: Morphine 2 MG/ML Syringe IV ×3 (00:33→20:13)
[2024-12-31 00:55] LABS: Bedside Glucose 106 mg/dL (74-106)
[2024-12-31 00:55] LABS: Bedside Glucose 101 mg/dL (74-106)
[2024-12-31] MEDS: hydrALAZINE 20 MG/ML Vial 10 MG IV (04:31)
[2024-12-31] MEDS: Levothyroxine 125 MCG Tablet PO (05:33)
[2024-12-31 06:55] LABS: Absolute Lymphocyte Count 1.03 X10^3/uL (0.83-4.51); Absolute Neutrophil Count 11.9 X10^3/uL (2.0-7.7); Basophil# 0.02 X10^3/uL; Basophil% 0.1 % (0-1); Eosinophil# 0.03 X10^3/uL; Eosinophils% 0.2 % (0-5); Hematocrit 27.4 % (37-47); Hemoglobin 8.8 g/dL (12.0-15.0); Lymphocyte # 1.03 X10^3/ul (0.83-4.51); Lymphocyte % 7.4 % (19-41); Mean Corp Hgb Conc 32.1 g/dL (32-36); Mean Corpuscular Hgb 30.3 pg (27.0-32.0); Mean Corpuscular Volume 94.5 fL (81-99); Mean Platelet Vol. 10.4 fl (6.2-12.0); Monocyte# 0.72 X10^3/uL; Monocyte% 5.2 % (0-10); NRBC Flagged by Analyzer 0 % (0-5); Neutrophil # 11.91 X10^3/uL (2.7-7.7); Neutrophil % 85.8 % (47-70); Platelet Count 156 K/mm3 (150-450); RBC Distribution Width CV 15.9 % (11.6-14.6); RBC Distribution Width SD 55.2 fl (35.1-43.9); White Blood Count 13.9 K/mm3 (4.4-11.0)
[2024-12-31] MEDS: Ipratropium/Albuterol Sulfate 3 ML AMPUL.NEB INHALATION ×3 (07:34→19:56)
[2024-12-31] MEDS: Budesonide Respules 0.5 MG/2 ML AMPUL.NEB. INHALATION ×2 (07:34→19:56)
[2024-12-31 07:46] LABS: Bedside Glucose 98 mg/dL (74-106)
[2024-12-31] MEDS: Venlafaxine HCl 75 MG Tablet PO (08:06)
[2024-12-31] MEDS: Carvedilol 25 MG Tablet PO ×2 (08:06→16:43)
[2024-12-31] MEDS: Cholecalciferol (VIT D3) 25 MCG TABLET (1,000 UNITS) 50 MCG PO (08:06)
[2024-12-31] MEDS: Loratadine 10 MG Tablet PO (08:06)
[2024-12-31] MEDS: SACUBITRIL/VALSARTAN 49-51 MG TABLET 1 EACH PO ×2 (08:06→23:16)
[2024-12-31] MEDS: Pregabalin 50 MG Capsule 100 MG PO (08:08)
[2024-12-31] MEDS: Pantoprazole Sodium 40 MG in 0.9% Normal Saline (100mL MB+) 100 ML 330 MG IV (08:09)
--- NOTE | 2024-12-31 08:11 | PCM.PN.SRG ---
Subjective Subjective Patient evaluated resting comfortably in bed. She is currently receiving a breathing treatment. She denies any nausea or abdominal bloating. She notes incisional discomfort. She notes passing flatus multiple times. Negative bowel movement. Objective Data Objective Data Vital Signs: Vital Signs Temp Pulse Resp BP Pulse Ox O2 Del Method O2 Flow Rate 97.3 F L 122 H 20 H 191/110 H 96 Room Air 1 12/31/24 04:00 12/31/24 07:35 12/31/24 07:35 12/31/24 04:31 12/31/24 07:35 12/31/24 07:35 12/29/24 18:57 Oxygen Flow Rate (L/min) 1 Oxygen Delivery Method Room Air Weight: 187 lb 6.287 oz Body Mass Index (BMI) 31.1 Intake & Output: Intake and Output for Last 24 Hours 12/29/24 12/30/24 12/31/24 23:59 23:59 23:59 Intake Total 1421.67 / 1421.67 310 / 310 Output Total 3222 / 3572 1625 / 2315 1140 / 1140 Balance -1800.33 / -2150.33 -1315 / -2005 -1120 / -1120 Lab / Micro Data 12/31/24 06:35 12/31/24 06:35 Labs: Laboratory Results - last 24 hr 12/30/24 11:26: POC Glucose 110 H 12/30/24 17:37: POC Glucose 106 12/31/24 00:33: POC Glucose 101 12/31/24 05:32: POC Glucose 98 12/31/24 06:35: WBC 13.9 H, RBC 2.90 L, Hgb 8.8 L, Hct 27.4 L, MCV 94.5, MCH 30.3, MCHC 32.1, RDW Std Deviation 55.2 H, RDW Coeff of Lencho 15.9 H, Plt Count 156, MPV 10.4, Immature Gran % (Auto) 1.300 H, Neut % (Auto) 85.8 H, Lymph % (Auto) 7.4 L, [place] % (Auto) 5.2, Eos % (Auto) 0.2, Baso % (Auto) 0.1, Absolute Neuts (auto) 11.9 H, Absolute Lymphs (auto) 1.03, Nucleated RBC % 0 Micro: Microbiology 02/22/25 04:28 Mucosa - Nose Coronavirus COVID-19 PCR - Final 12/27/24 04:28 Mucosa - Nose Respiratory Panel (PCR) - Final 12/27/24 01:00 Urine Catheter - Sheriff Legionella Antigen - Final 12/27/24 01:00 Urine Catheter - Sheriff Streptococcus pneumoniae Antigen (M - Final 12/26/24 16:33 Mucosa - Nose SARS-CoV-2, Influenza & RSV (PCR) - Final Physical Exam GI GI Narrative: Abdomen- soft, non-distended. Hypoactive bowel sounds. Incision c/d/i. No erythema or infection noted. PETE intact with serosanguineous fluid noted. Assessment & Plan Assessment/Plan (1) Perforated gastric ulcer: QUALIFIERS: Gastric ulcer chronicity: acute Qualified Code(s): K25.1 - Acute gastric ulcer with perforation PLAN: I am following this patient in conjunction with Dr. Ramirez. He will independently evaluate this patient. Labs reviewed. WBC increased to 13.9 today D/C NG tube Start sips and chips D/C Hseriff Encourage ambulation, sitting in the chair and I.S. Orders have been placed to transfer patient out of unit to med/surg awaiting open bed We will continue to monitor this patient Charges/Coding Visit Charges Inpatient E&M: 39617 Subs Hosp L1 (post-op; no charge)
[2024-12-31 08:31] LABS: Anion Gap 16 (5-15); BUN 10 mg/dL (4-19); BUN/Creat Ratio 20.6 RATIO (10-20); Calcium 8.9 mg/dL (7.6-11.0); Carbon Dioxide 20.6 mmol/L (22.0-29.0); Chloride 102 mmol/L (96-108); Creatinine, Serum 0.5 mg/dL (0.6-1.0); EST Glomerular Filtration Rate 105 (>60); Estimated Creatinine Clearance 122.38 ml/min; Glucose 96 mg/dL (70-99); Potassium 3.3 mmol/L (3.3-5.1); Sodium Level 138 mmol/L (133-145)
[2024-12-31] MEDS: FLUCONAZOLE 100 MG IV (09:23)
--- NOTE | 2024-12-31 10:03 | NURSING ---
NG tube discontinued, patient tolerated well.
[2024-12-31] MEDS: Sodium Chloride 0.65% 1 SPRAY SPRAY.BTL 2 SPRAY NASAL (11:20)
[2024-12-31 11:38] LABS: Bedside Glucose 106 mg/dL (74-106)
--- NOTE | 2024-12-31 14:41 | PCM.PN.HOSP ---
Reason for Visit Reason for Visit: Diagnoses Acute gastric ulcer with perforation (12/26/24) Chronic or unspecified gastric ulcer with perforation (12/26/24) Other specified disorders of peritoneum (12/26/24) Acute kidney failure, unspecified (12/26/24) Subjective Subjective Patient was seen and examined today, her NG was discontinued today, blood pressure at this time is improved. Objective Data Objective Data Vital Signs: Vital Signs Temp Pulse Resp BP Pulse Ox O2 Del Method O2 Flow Rate 98.3 F 101 H 16 136/82 H 96 Room Air 1 12/31/24 09:20 12/31/24 13:24 12/31/24 13:24 12/31/24 09:20 12/31/24 09:20 12/31/24 09:20 12/29/24 18:57 Oxygen Flow Rate (L/min) 1 Oxygen Delivery Method Room Air Weight: 85 kg Body Mass Index (BMI) 31.1 Intake & Output: Intake and Output for Last 24 Hours 12/29/24 12/30/24 12/31/24 23:59 23:59 23:59 Intake Total 1421.67 / 1421.67 310 / 310 250 / 250 Output Total 3222 / 3572 1625 / 2315 1740 / 1740 Balance -1800.33 / -2150.33 -1315 / -2005 -1490 / -1490 Lab / Micro Data 12/31/24 06:35 12/31/24 06:35 Labs: Laboratory Results - last 24 hr 12/30/24 17:37: POC Glucose 106 12/31/24 00:33: POC Glucose 101 12/31/24 05:32: POC Glucose 98 12/31/24 06:35: WBC 13.9 H, RBC 2.90 L, Hgb 8.8 L, Hct 27.4 L, MCV 94.5, MCH 30.3, MCHC 32.1, RDW Std Deviation 55.2 H, RDW Coeff of Lencho 15.9 H, Plt Count 156, MPV 10.4, Immature Gran % (Auto) 1.300 H, Neut % (Auto) 85.8 H, Lymph % (Auto) 7.4 L, [place] % (Auto) 5.2, Eos % (Auto) 0.2, Baso % (Auto) 0.1, Absolute Neuts (auto) 11.9 H, Absolute Lymphs (auto) 1.03, Nucleated RBC % 0, Sodium 138, Potassium 3.3, Chloride Direct 102, Carbon Dioxide 20.6 L, Anion Gap 16 H, BUN 10, Creatinine 0.5 L, Estim Creat Clear Calc 122.38, Est GFR (MDRD) Non-Af 105, BUN/Creatinine Ratio 20.6 H, Glucose 96, Calcium 8.9 12/31/24 11:15: POC Glucose 106 Micro: Microbiology 12/30/24 19:57 Sputum, Expectorated/Coughed Gram Stain - Final 12/27/24 04:28 Mucosa - Nose Coronavirus COVID-19 PCR - Final 12/27/24 04:28 Mucosa - Nose Respiratory Panel (PCR) - Final 12/27/24 01:00 Urine Catheter - Sheriff Legionella Antigen - Final 12/27/24 01:00 Urine Catheter - Sheriff Streptococcus pneumoniae Antigen (M - Final 12/26/24 16:33 Mucosa - Nose SARS-CoV-2, Influenza & RSV (PCR) - Final Physical Exam Narrative alert and no apparent distress General Appearance: cooperative, well kempt and well developed Orientation / Consciousness: awake, oriented to person and oriented to place HEENT normocephalic, head/scalp atraumatic and moist oral mucous membranes Eyes PERRL, EOMs intact bilaterally and conjunctivae normal Neck supple, no JVD, thyroid normal and no carotid bruits General: trachea midline Resp normal respiratory effort, no retractions, no use of accessory muscles and clear to auscultation bilaterally Auscultation: Negative for rales, rhonchi or wheezes Cardio regular rate, regular rhythm, S1 normal heart sound, S2 normal heart sound, no murmurs, no rub and no gallops GI normal to inspection, nondistended, normoactive bowel sounds, soft to palpation, non-tender and non-distended Extremity no clubbing, cyanosis or edema Skin no rashes or lesions noted General Skin Exam: no breakdown Neuro oriented x3, CN's II-XII intact bilaterally, moves all extremities, no focal motor deficits and no sensory deficits noted Sensorium / Orientation: awake and alert Speech: speech normal Psych affect normal Assessment & Plan Assessment/Plan (1) Perforated gastric ulcer: QUALIFIERS: Gastric ulcer chronicity: acute Qualified Code(s): K25.1 - Acute gastric ulcer with perforation PLAN: Plan 1. Perforated gastric ulcer-patient is being seen by critical care and surgery on a daily basis, continue present medications #2 essential hypertension-continue present medications, monitor blood pressure #3 anemia secondary to blood loss from perforated gastric ulcer-patient's hemoglobin appears to be stable at this time #4 chronic heart failure with reduced ejection fraction-patient remains on Entresto #5 chronic depression-patient is on Effexor #6 hypothyroidism-patient is on Synthroid Total clinical time spent by myself addressing the patient's medical issues, reviewing all of her data, and collaborating with patient's care team: 35 minutes Charges/Coding Visit Charges Inpatient E&M: 52648 Subs Hosp L2
[2024-12-31] MEDS: traMADol 50 MG Tablet 100 MG PO (15:12)
--- NOTE | 2024-12-31 16:17 | CASEMGMT ---
DRE DELGADILLO NOTE: [facility] and [facility] unable to accept, [facility] states are interested, requesting [facility] order w/diagnoses included. Updated [facility] order sent to [facility] via [employer]. Cathryn HERNANDEZ RN CM
[2024-12-31 16:43] LABS: Bedside Glucose 120 mg/dL (74-106)
[2024-12-31] MEDS: Venlafaxine HCl 75 MG Tablet 150 MG PO (23:16)
[2024-12-31] MEDS: Amitriptyline 25 MG Tablet PO (23:16)
[2024-12-31] MEDS: Atorvastatin Calcium 40 MG Tablet PO (23:16)
[2024-12-31 23:38] LABS: Bedside Glucose 152 mg/dL (74-106)
[2025-01-01 02:15] VITALS: BMI 31.0
[2025-01-01 02:47] VITALS: BP 124/59; PULSE 94; RESP 18; TEMP 37; O2SAT 94
[2025-01-01] MEDS: Morphine 2 MG/ML Syringe IV (02:56)
[2025-01-01] MEDS: Levothyroxine 125 MCG Tablet PO (05:49)
[2025-01-01 06:44] LABS: Bedside Glucose 90 mg/dL (74-106)
[2025-01-01 07:01] VITALS: PULSE 87; RESP 16; O2SAT 99
[2025-01-01] MEDS: Ipratropium/Albuterol Sulfate 3 ML AMPUL.NEB INHALATION ×2 (07:01→13:06)
[2025-01-01] MEDS: Budesonide Respules 0.5 MG/2 ML AMPUL.NEB. INHALATION (07:01)
[2025-01-01 07:20] LABS: Absolute Lymphocyte Count 1.62 X10^3/uL (0.83-4.51); Basophil# 0.04 X10^3/uL; Basophil% 0.3 % (0-1); Eosinophils% 0.9 % (0-5); Hematocrit 25.2 % (37-47); Lymphocyte # 1.62 X10^3/ul (0.83-4.51); Lymphocyte % 14.1 % (19-41); Mean Corp Hgb Conc 31.7 g/dL (32-36); Mean Corpuscular Volume 94.4 fL (81-99); Mean Platelet Vol. 10.7 fl (6.2-12.0); Monocyte# 0.56 X10^3/uL; Monocyte% 4.9 % (0-10); NRBC Flagged by Analyzer 0 % (0-5); Neutrophil # 8.97 X10^3/uL (2.7-7.7); Neutrophil % 78.1 % (47-70); Platelet Count 141 K/mm3 (150-450); RBC Distribution Width CV 15.9 % (11.6-14.6); Red Blood Count 2.67 M/mm3 (4.2-5.4); White Blood Count 11.5 K/mm3 (4.4-11.0)
[2025-01-01 07:48] LABS: Anion Gap 12 (5-15); BUN 10 mg/dL (4-19); BUN/Creat Ratio 17.9 RATIO (10-20); Calcium 8.6 mg/dL (7.6-11.0); Carbon Dioxide 23.2 mmol/L (22.0-29.0); Chloride 99 mmol/L (96-108); Creatinine, Serum 0.6 mg/dL (0.6-1.0); EST Glomerular Filtration Rate 103 (>60); Glucose 99 mg/dL (70-99); Potassium 3.1 mmol/L (3.3-5.1); Sodium Level 134 mmol/L (133-145)
--- NOTE | 2025-01-01 08:27 | PCM.PN.SRG ---
Subjective Subjective Patient evaluated resting comfortably in bed. She denies nausea, vomiting, fever. She is tolerating clear liquids well. She is urinating well. She continues to pass flatus, negative BM. Objective Data Objective Data Vital Signs: Vital Signs Temp Pulse Resp BP Pulse Ox O2 Del Method O2 Flow Rate 98.6 F 87 16 124/59 H 99 Room Air 1 01/01/25 02:47 01/01/25 07:01 01/01/25 07:01 01/01/25 02:47 01/01/25 07:01 01/01/25 07:01 12/29/24 18:57 Oxygen Flow Rate (L/min) 1 Oxygen Delivery Method Room Air Weight: 186 lb 11.704 oz Body Mass Index (BMI) 31.0 Intake & Output: Intake and Output for Last 24 Hours 12/30/24 12/31/24 01/01/25 23:59 23:59 23:59 Intake Total 310 / 310 590 / 590 Output Total 1625 / 2315 1740 / 1740 0 / 0 Balance -1315 / -2005 -1150 / -1150 0 / 0 Lab / Micro Data 01/01/25 07:13 01/01/25 07:13 Labs: Laboratory Results - last 24 hr 12/31/24 06:35: Sodium 138, Potassium 3.3, Chloride Direct 102, Carbon Dioxide 20.6 L, Anion Gap 16 H, BUN 10, Creatinine 0.5 L, Estim Creat Clear Calc 122.38, Est GFR (MDRD) Non-Af 105, BUN/Creatinine Ratio 20.6 H, Glucose 96, Calcium 8.9 12/31/24 11:15: POC Glucose 106 12/31/24 16:14: POC Glucose 120 H 12/31/24 23:18: POC Glucose 152 H 01/01/25 05:47: POC Glucose 90 01/01/25 07:13: WBC 11.5 H, RBC 2.67 L, Hgb 8.0 L, Hct 25.2 L, MCV 94.4, MCH 30.0, MCHC 31.7 L, RDW Std Deviation 55.0 H, RDW Coeff of Lencho 15.9 H, Plt Count 141 L, MPV 10.7, Immature Gran % (Auto) 1.700 H, Neut % (Auto) 78.1 H, Lymph % (Auto) 14.1 L, [place] % (Auto) 4.9, Eos % (Auto) 0.9, Baso % (Auto) 0.3, Absolute Neuts (auto) 9.0 H, Absolute Lymphs (auto) 1.62, Nucleated RBC % 0, Sodium 134, Potassium 3.1 L, Chloride Direct 99, Carbon Dioxide 23.2, Anion Gap 12, BUN 10, Creatinine 0.6, Estim Creat Clear Calc 101.80, Est GFR (MDRD) Non-Af 103, BUN/Creatinine Ratio 17.9, Glucose 99, Calcium 8.6 Micro: Microbiology 12/30/24 19:57 Sputum, Expectorated/Coughed Gram Stain - Final 12/27/24 04:28 Mucosa - Nose Coronavirus COVID-19 PCR - Final 12/27/24 04:28 Mucosa - Nose Respiratory Panel (PCR) - Final 12/27/24 01:00 Urine Catheter - Sheriff Legionella Antigen - Final 12/27/24 01:00 Urine Catheter - [place] Streptococcus pneumoniae Antigen (M - Final 12/26/24 16:33 Mucosa - Nose SARS-CoV-2, Influenza & RSV (PCR) - Final Physical Exam GI GI Narrative: Abdomen- soft, nontender. PETE drain stripped and with serosanguineous fluid noted. Incision c/d/i. No erythema or infection noted. [place] intact. Assessment & Plan Assessment/Plan (1) Perforated gastric ulcer: QUALIFIERS: Gastric ulcer chronicity: acute Qualified Code(s): K25.1 - Acute gastric ulcer with perforation PLAN: I am following this patient in conjunction with Dr. Ramirez. He will independently evaluate this patient. Labs reviewed. WBC decreased to 11.5. Potassium replaced Increase diet to full liquids and hold at full liquids today Transition to oral PPI Continue ambulation and I.S Encourage sitting in the chair for meals Probable discharge tomorrow We will continue to monitor this patient Charges/Coding Visit Charges Inpatient E&M: 36105 Subs Hosp L1 (post-op; no charge)
[2025-01-01 08:50] VITALS: BP 138/88; PULSE 99; RESP 16; TEMP 36.6; O2SAT 99
[2025-01-01] MEDS: Pantoprazole Sodium 40 MG in 0.9% Normal Saline (100mL MB+) 100 ML 330 MG IV (09:23)
[2025-01-01] MEDS: 0.9% Normal Saline (100mL Bag) 100 ML 15 ML IV (09:24)
[2025-01-01] MEDS: Venlafaxine HCl 75 MG Tablet PO (09:31)
[2025-01-01] MEDS: Cholecalciferol (VIT D3) 25 MCG TABLET (1,000 UNITS) 50 MCG PO (09:31)
[2025-01-01] MEDS: Loratadine 10 MG Tablet PO (09:31)
[2025-01-01] MEDS: Carvedilol 25 MG Tablet PO ×2 (09:31→18:40)
[2025-01-01] MEDS: SACUBITRIL/VALSARTAN 49-51 MG TABLET 1 EACH PO ×2 (09:31→22:31)
[2025-01-01] MEDS: Pregabalin 50 MG Capsule 100 MG PO (09:31)
[2025-01-01] MEDS: Potassium Chloride Oral Tablet 20 MEQ 60 MEQ PO (09:34)
[2025-01-01] MEDS: FLUCONAZOLE 100 MG IV (09:38)
[2025-01-01 10:00] VITALS: O2SAT 99
[2025-01-01] MEDS: HYDROcodone Bitartrate/Apap 5/325 Tablet PO ×2 (11:53→15:56)
[2025-01-01 12:08] LABS: Bedside Glucose 134 mg/dL (74-106)
[2025-01-01 13:06] VITALS: PULSE 81; RESP 16; O2SAT 95
[2025-01-01 18:08] LABS: Bedside Glucose 136 mg/dL (74-106)
[2025-01-01 22:28] VITALS: BP 106/63; PULSE 83; RESP 18; TEMP 36.8; O2SAT 94
[2025-01-01] MEDS: Amitriptyline 25 MG Tablet PO (22:31)
[2025-01-01] MEDS: Atorvastatin Calcium 40 MG Tablet PO (22:31)
[2025-01-01] MEDS: Venlafaxine HCl 75 MG Tablet 150 MG PO (22:32)
[2025-01-01 23:45] LABS: Bedside Glucose 78 mg/dL (74-106)
[2025-01-02] MEDS: HYDROcodone Bitartrate/Apap 5/325 Tablet PO (01:45)
[2025-01-02 03:10] VITALS: BP 99/62; PULSE 79; RESP 18; TEMP 36.7; O2SAT 94
[2025-01-02 05:30] VITALS: BMI 31.0
[2025-01-02] MEDS: Levothyroxine 125 MCG Tablet PO (06:12)
[2025-01-02 06:48] LABS: Absolute Lymphocyte Count 1.55 X10^3/uL (0.83-4.51); Absolute Neutrophil Count 7.2 X10^3/uL (2.0-7.7); Basophil# 0.03 X10^3/uL; Basophil% 0.3 % (0-1); Eosinophil# 0.21 X10^3/uL; Eosinophils% 2.2 % (0-5); Hematocrit 25.9 % (37-47); Hemoglobin 8.1 g/dL (12.0-15.0); Lymphocyte # 1.55 X10^3/ul (0.83-4.51); Lymphocyte % 16.1 % (19-41); Mean Corp Hgb Conc 31.3 g/dL (32-36); Mean Corpuscular Hgb 29.9 pg (27.0-32.0); Mean Corpuscular Volume 95.6 fL (81-99); Mean Platelet Vol. 10.7 fl (6.2-12.0); Monocyte# 0.52 X10^3/uL; Monocyte% 5.4 % (0-10); NRBC Flagged by Analyzer 0 % (0-5); Neutrophil # 7.17 X10^3/uL (2.7-7.7); Neutrophil % 74.2 % (47-70); Platelet Count 153 K/mm3 (150-450); RBC Distribution Width CV 15.9 % (11.6-14.6); RBC Distribution Width SD 55.2 fl (35.1-43.9); Red Blood Count 2.71 M/mm3 (4.2-5.4); White Blood Count 9.7 K/mm3 (4.4-11.0)
[2025-01-02 06:51] LABS: Bedside Glucose 95 mg/dL (74-106)
[2025-01-02 07:44] LABS: Anion Gap 11 (5-15); BUN 9 mg/dL (4-19); BUN/Creat Ratio 14.2 RATIO (10-20); Calcium 8.6 mg/dL (7.6-11.0); Carbon Dioxide 22.4 mmol/L (22.0-29.0); Chloride 99 mmol/L (96-108); Creatinine, Serum 0.62 mg/dL (0.70-1.20); EST Glomerular Filtration Rate 99 (>60); Estimated Creatinine Clearance 98.46 ml/min; Glucose 83 mg/dL (70-99); Potassium 3.6 mmol/L (3.3-5.1); Sodium Level 133 mmol/L (133-145)
[2025-01-02 07:50] VITALS: PULSE 85; RESP 20
[2025-01-02] MEDS: Ipratropium/Albuterol Sulfate 3 ML AMPUL.NEB INHALATION (07:50)
[2025-01-02] MEDS: Budesonide Respules 0.5 MG/2 ML AMPUL.NEB. INHALATION (07:50)
[2025-01-02] MEDS: Carvedilol 25 MG Tablet PO (10:17)
[2025-01-02] MEDS: Pregabalin 50 MG Capsule 100 MG PO (10:17)
[2025-01-02] MEDS: SACUBITRIL/VALSARTAN 49-51 MG TABLET 1 EACH PO (10:17)
[2025-01-02] MEDS: Pantoprazole Sodium 40 MG Tablet PO (10:17)
[2025-01-02] MEDS: Loratadine 10 MG Tablet PO (10:17)
[2025-01-02] MEDS: Cholecalciferol (VIT D3) 25 MCG TABLET (1,000 UNITS) 50 MCG PO (10:18)
[2025-01-02] MEDS: Venlafaxine HCl 75 MG Tablet PO (10:18)
--- NOTE | 2025-01-02 10:46 | DS.PCM_ITS ---
Providers Date of Admission: 12/26/24 Date of Discharge: 01/02/25 Primary Care Physician: Dr. Brandon Torres, Consultations 12/26/24 23:04 Consult: Hospitalist Routine Consulting Provider: Sahara Davis Reason for Consult: med management EMERGENT Consult: No Notified: Yes Date Notified: 12/26/24 Time Notified: 23:04 Method of Notification: Verbal 12/26/24 23:20 Consult: Head Of Ict / Pulmonary Medicine Routine Consulting Provider: Intensivists/Pulmonary Med Reason for Consult: Levophed EMERGENT Consult: No Notified: Yes Date Notified: 12/26/24 Time Notified: 23:21 Method of Notification: Text Reason For Visit: PERFORATED GASTRIC ULCER Diagnosis Discharge Diagnosis (1) Perforated gastric ulcer: Status: Acute Code(s): K25.5 - Chronic or unspecified gastric ulcer with perforation Qualifiers: Gastric ulcer chronicity: acute Qualified Code(s): K25.1 - Acute gastric ulcer with perforation Plan: I am following this patient in conjunction with Dr. Ramirez. He will independently evaluate this patient. Labs reviewed. WBC decreased to 11.5. Potassium replaced Increase diet to full liquids and hold at full liquids today Transition to oral PPI Continue ambulation and I.S Encourage sitting in the chair for meals Probable discharge tomorrow We will continue to monitor this patient Medications at Discharge Home Medications pantoprazole 40 mg tablet,delayed release 40 mg PO BID GERD 03/29/19 amitriptyline 25 mg tablet 25 mg PO QHS MOOD 08/10/19 rosuvastatin 20 mg tablet (Crestor) 20 mg PO QHS CHOLESTEROL 08/25/19 sitagliptin phosphate 50 mg tablet (Januvia) 50 mg PO DAILY DIABETES 09/04/19 duloxetine 60 mg capsule,delayed release 60 mg PO BID DEPRESSION 10/19/20 pregabalin 100 mg capsule 100 mg PO DAILY PAIN 05/18/21 sacubitril 49 mg-valsartan 51 mg tablet (Entresto) 1 tab PO BID HEART 02/11/22 alendronate 70 mg tablet 70 mg PO TU BONES 02/13/22 aspirin 81 mg tablet,delayed release 81 mg PO DAILY@0800 HEART HEALTH 02/15/22 dicyclomine 20 mg tablet 20 mg PO TIDCM IRRITABLE BOWELS 09/11/22 apixaban 5 mg tablet (Eliquis) 5 mg PO BID blood thinner 30 days #60 tabs 09/18/22 benzonatate 100 mg capsule 100 - 200 mg PO Q8H PRN COUGH 05/28/23 venlafaxine 75 mg tablet 150 mg PO BID DEPRESSION 05/29/23 carvedilol 25 mg tablet (Coreg) 25 mg PO BIDCM HEART 10/24/23 fluticasone 500 mcg-salmeterol 50 mcg/dose blistr powdr for inhalation (Advair Diskus) 1 ea inhalation BID Asthma 04/25/24 levothyroxine 125 mcg tablet 125 mcg PO DAILY Hypothyroidism 04/25/24 ascorbic acid (vitamin C) 500 mg tablet 500 mg PO DAILY Supplement 05/01/24 calcium 600 mg (as carbonate)-vitamin D3 5 mcg (200 unit) tablet (Calcium 600 + D(3)) 1 tab PO DAILY Supplement 05/01/24 cetirizine 10 mg capsule (All Day Allergy (cetirizine)) 10 mg PO DAILY Allergies 05/01/24 cholecalciferol (vitamin D3) 50 mcg (2,000 unit) tablet (Vitamin D3) 50 mcg PO DAILY Supplement 05/01/24 magnesium oxide 400 mg PO DAILY Supplement 05/01/24 zinc acetate 50 mg (zinc) capsule (Galzin) 50 mg PO DAILY Supplement 05/01/24 hydrocodone 7.5 mg-acetaminophen 325 mg tablet 1 tab PO Q8H PRN pain 07/21/24 Hospital Course Operations - (Exploratory laparotomy with closure/oversew of gastric perforation with modified Jelani patch) Summary of Care Provided Minutes Spent on Discharge: 15 Hospital Course: The patient is a 64-year-old female who presented to [facility] with abdominal pain. She was seen evaluate by the ER staff. Imaging identified free air on chest x-ray and on subsequent CT scan. This was likely thought to be related to a perforated ulcer given the fact that she was on recent NSAIDs and steroids. Patient was brought to the operating room and was found to have an anterior gastric perforation. This was oversewn and a Jelani patch was also placed. She had a fairly unremarkable hospital course. She was kept n.p.o. with an NG for quite some time until she had resumed bowel function. She was on antibiotics and Diflucan as well as PPIs. Once she regained bowel function, NG tube was removed and diet was very slowly advanced. Her leukocytosis resolved. She is now tolerating diet and is ready for discharge home Physical Exam Const alert, oriented x3 and no apparent distress GI GI Narrative: Abdomen is soft, nontender nondistended. PETE drain was removed without difficulty. Incision is well-approximated with skin van Weight / BMI Weight Weight: 186 lb 8.177 oz Body Mass Index (BMI) 31.0 ABG / Lab / Microbiology Data 01/02/25 06:26 01/02/25 06:26 Laboratory: Laboratory Results - last 24 hr 01/01/25 11:42: POC Glucose 134 H 01/01/25 17:51: POC Glucose 136 H 01/01/25 23:25: POC Glucose 78 01/02/25 06:11: POC Glucose 95 01/02/25 06:26: WBC 9.7, RBC 2.71 L, Hgb 8.1 L, Hct 25.9 L, MCV 95.6, MCH 29.9, MCHC 31.3 L, RDW Std Deviation 55.2 H, RDW Coeff of Lencho 15.9 H, Plt Count 153, MPV 10.7, Immature Gran % (Auto) 1.800 H, Neut % (Auto) 74.2 H, Lymph % (Auto) 16.1 L, [place] % (Auto) 5.4, Eos % (Auto) 2.2, Baso % (Auto) 0.3, Absolute Neuts (auto) 7.2, Absolute Lymphs (auto) 1.55, Nucleated RBC % 0, Sodium 133, Potassium 3.6, Chloride Direct 99, Carbon Dioxide 22.4, Anion Gap 11, BUN 9, C reatinine 0.62 L, Estim Creat Clear Calc 98.46, Est GFR (MDRD) Non-Af 99, BUN/Creatinine Ratio 14.2, Glucose 83, Calcium 8.6 Microbiology: Microbiology 12/30/24 19:57 Sputum, Expectorated/Coughed Gram Stain - Final 12/30/24 19:57 Sputum, Expectorated/Coughed Respiratory Culture - Preliminary Gram positive jacqueline Gram negative jacqueline 12/27/24 04:28 Mucosa - Nose Coronavirus COVID-19 PCR - Final 12/27/24 04:28 Mucosa - Nose Respiratory Panel (PCR) - Final 12/27/24 01:00 Urine Catheter - Sheriff Legionella Antigen - Final 12/27/24 01:00 Urine Catheter - Sheriff Streptococcus pneumoniae Antigen (M - Final 12/26/24 16:33 Mucosa - Nose SARS-CoV-2, Influenza & RSV (PCR) - Final D/C Instructions Discharge Diet: Soft diet Discharge Activity: Return to Normal Activity and May Shower Lifting Restrictions: Keep lifting under 20 pounds for about 6 weeks Call your doctor if your incision/area has: Continuous Slow Oozing, Sudden Increased Bleeding, Increased Pain/ Swelling, Increased Redness, Foul Smelling Discharge and Swelling at the incision site Call your doctor if you observe: Fever of 101 or Higher Cleanse incision/area with: Soap & Water DC O2, CPAP, BIPAP Needs Home O2 Discharge instructions: No DC home with Oxygen: No Please Follow Up With: Palmer Ramirez MD When: In about 7 days -please call office to schedule appointment Meaningful Use Info Meaningful Use Meaningful Use Diagnoses (Choose all that apply): None applicable Ischemic Stroke Statin Dosing Therapy Reference: STATIN DOSE THERAPY REFERENCE: * Patients > 75 years receive moderate or high dose statin therapy. * Patients 75 years or YOUNGER should receive HIGH intensity statin dose unless contraindicated. You will be required to document reason for non-treatment if statin daily dose does not meet guidelines. HIGH DOSE STATIN THERAPY DAILY Atorvastatin > than or = to 40 mg Rosuvastatin > than or = to 20 mg Amlodipine + Atorvastatin > than or = to 2.5/40 mg Ezetimibe + Simvastatin 10/80 mg Simvastatin 80mg Discharge Plan Admission Admit Date/Time: 12/26/24 22:33 Primary Reason for Your Visit: Perforated gastric ulcer Attending Provider: Eliseo Saleh Primary Care Provider: Brandon Torres Consulting Providers: Eliseo Saleh; Palmer Ramirez; Sahara Davis Discharge Orders/Prescriptions Prescriptions: Continued Januvia 50 mg tablet 50 mg PO DAILY rosuvastatin [Crestor] 20 mg tablet 20 mg PO QHS pregabalin 100 mg capsule 100 mg PO DAILY pantoprazole 40 MG tablet 40 mg PO BID amitriptyline 25 MG tablet 25 mg PO QHS duloxetine 60 MG capsule 60 mg PO BID sacubitril-valsartan [Entresto] 49-51 mg Tablet 1 tab PO BID alendronate 70 MG tablet 70 mg PO TU aspirin 81 MG tablet,delayed release (DR/EC) 81 mg PO DAILY@0800 dicyclomine 20 mg Tablet 20 mg PO TIDCM Eliquis 5 mg Tablet 5 mg PO BID 30 Days Qty: 60 0RF Patient Comments: Start taking May 03, 2024 carvedilol [Coreg] 25 mg tablet 25 mg PO BIDCM benzonatate 100 mg capsule 100 - 200 mg PO Q8H PRN (Reason: COUGH ) venlafaxine 75 mg tablet 150 mg PO BID Patient Comments: 75mgin AM and 150 mg QPM levothyroxine 125 mcg tablet 125 mcg PO DAILY fluticasone propion-salmeterol [Advair Diskus] 500-50 mcg/dose blister with device 1 ea inhalation BID ascorbic acid (vitamin C) 500 mg tablet 500 mg PO DAILY calcium carbonate-vitamin D3 [Calcium 600 + D(3)] 600 mg-5 mcg (200 unit) tablet 1 tab PO DAILY All Day Allergy (cetirizine) 10 mg capsule 10 mg PO DAILY magnesium oxide 400 mg magnesium tablet 400 mg PO DAILY cholecalciferol (vitamin D3) [Vitamin D3] 50 mcg (2,000 unit) tablet 50 mcg PO DAILY Galzin 50 mg (zinc) capsule 50 mg PO DAILY hydrocodone-acetaminophen 7.5-325 mg tablet 1 tab PO Q8H PRN (Reason: pain ) Referrals / Follow Up: Brandon Torres DO [Primary Care Provider] - Disposition Disposition (needs filled in before D/C Order can be placed): Home, Self Care
--- NOTE | 2025-01-02 11:08 | CASEMGMT ---
DRE DELGADILLO note DC order in, [facility] asking for additional information. Sent updated notes, waiting on [facility] acceptance. DRE DELGADILLO called Dianne to notify of Pt DC today to restart private duty care next week.
--- NOTE | 2025-01-02 11:14 | CASEMGMT ---
DRE DELGADILLO received notification [facility] able to accept. Notified Pt, pt asked if the hospital van can transport her home. DRE DELGADILLO notified community relations rep, she is attempting to set up transport with [facility].
--- NOTE | 2025-01-02 12:05 | CASEMGMT ---
admin secretary notified this RN CM that pt is being transported home at 12:45. RN CM notified pt nurse and pt. Pt denies questions or concerns at this time.
[2025-01-02 12:43] LABS: Bedside Glucose 139 mg/dL (74-106)
== END 2025-01-02 12:46 | disposition home health service (06) | DRG 327 ==
LOC: ED 19:31 → ICU 19:49 → PCU 12-31 19:26
PROVIDERS: Family Medicine; Hospitalist; Internal Medicine; Physician Assistant; Admitting Provider Surgery; Emergency Provider Emergency Medicine; PCP Student in an Organized Health Care Education/Training Program; Referring Provider Surgery; Visit Provider Internal Medicine
PROC: 0DQ60ZZ Repair Stomach, Open Approach (ICD-10-PCS; CPT 49320; principal; 2024-12-26 20:00)
DX: K25.1 Acute gastric ulcer with perforation (principal); N17.9 Acute kidney failure, unspecified; I69.351 Hemiplegia and hemiparesis following cerebral infarction affecting right dominant side; I42.8 Other cardiomyopathies; I13.0 Hypertensive heart and chronic kidney disease with heart failure and stage 1 through stage 4 chronic kidney disease, or unspecified chronic kidney disease; D62 Acute posthemorrhagic anemia; I50.22 Chronic systolic (congestive) heart failure; D63.1 Anemia in chronic kidney disease; E11.22 Type 2 diabetes mellitus with diabetic chronic kidney disease; J44.9 Chronic obstructive pulmonary disease, unspecified; N18.30 Chronic kidney disease, stage 3 unspecified; E03.9 Hypothyroidism, unspecified; F32.A Depression, unspecified; E66.811 Obesity, class 1; E11.51 Type 2 diabetes mellitus with diabetic peripheral angiopathy without gangrene; E78.5 Hyperlipidemia, unspecified; F41.9 Anxiety disorder, unspecified; I25.10 Atherosclerotic heart disease of native coronary artery without angina pectoris; E11.65 Type 2 diabetes mellitus with hyperglycemia; E11.40 Type 2 diabetes mellitus with diabetic neuropathy, unspecified; K21.9 Gastro-esophageal reflux disease without esophagitis; I95.89 Other hypotension; E87.6 Hypokalemia; R00.0 Tachycardia, unspecified; Z53.31 Laparoscopic surgical procedure converted to open procedure; Z68.33 Body mass index [BMI] 33.0-33.9, adult; Z90.49 Acquired absence of other specified parts of digestive tract; Z79.01 Long term (current) use of anticoagulants; Z79.1 Long term (current) use of non-steroidal anti-inflammatories (NSAID); Z79.51 Long term (current) use of inhaled steroids; Z79.83 Long term (current) use of bisphosphonates; Z79.84 Long term (current) use of oral hypoglycemic drugs; Z79.890 Hormone replacement therapy; Z79.899 Other long term (current) drug therapy; Z87.891 Personal history of nicotine dependence
CPT/HCPCS: 36415; 51702; 71045; 71046; 74176; 80048; 80053; 81001; 82607; 82746; 82962; 83605; 84145; 85025; 85027; 86850; 86900; 86901; 87070; 87077; 87184; 87186; 87205; 87449; 87631; 87633; 87635; 94640; 94667; 94668; 94762; 97110; 97162; 97166; 97530; 97535; 97802; 99252; 99285; A4216; G0463

== ENCOUNTER 2025-01-15 15:48 | Emergency (ER) | payer MEDICARE, MEDICAID, SELFPAY ==
[2025-01-15 15:49] VITALS: BP 144/72; PULSE 75; RESP 16; TEMP 36.8; O2SAT 98; BMI 31.2
--- NOTE | 2025-01-15 16:41 | EX.ED.DYSGE1 ---
HPI History of Present Illness Chief Complaint: Abn Labs [facility] Medical History ARTIE (acute kidney injury) Nausea vomiting and diarrhea Acute hypotension Macrocytic anemia Pneumoperitoneum Type 2 diabetes mellitus with hyperglycemia COPD (chronic obstructive pulmonary disease) Acute anemia Perforated gastric ulcer Nondisplaced fracture of fifth right metatarsal bone Anemia History of type 2 diabetes mellitus History of hypertension Right femoral fracture Depression Hypothyroidism History of MRSA infection of lungs Delirium Debility Falls Metabolic encephalopathy Complicated urinary tract infection Acute hypotension Brain TIA Embolic stroke Normocytic anemia History of stroke Diabetes mellitus Hyperlipidemia Hypertension Stroke/cerebrovascular accident Cardiomyopathy Chronic systolic (congestive) heart failure Non-ischemic cardiomyopathy History of CVA (cerebrovascular accident) (2018) Flash pulmonary edema (01/16/21) Peripheral vascular disease History of depression Atherosclerosis of coronary artery without angina pectoris CKD (chronic kidney disease) stage 3, GFR 30-59 ml/min Asthma exacerbation Pulmonary edema Acute respiratory failure with hypoxia Trigeminal trophic syndrome Stomach ulcer Hypothyroidism Osteopenia Osteoarthritis Kidney disease Hyperlipidemia Essential hypertension Chronic headaches GI problem Gallstones History of emotional problems Type 2 diabetes mellitus Carpal tunnel syndrome Bone fracture Asthma Anemia Seasonal allergies Herpes simplex GERD (gastroesophageal reflux disease) Allergic rhinitis Irritable bowel syndrome Gait difficulty Right hemiparesis Debility Osteoporosis Normochromic normocytic anemia Secondary adrenal insufficiency ACTH deficiency Neuropathy Falls Hypotension Carotid artery stenosis Bilateral leg weakness History of ischemic colitis Chronic constipation with suspected IBS Obesity Hx of diverticulitis of colon History of Clostridium difficile infection Home Medications ?Medication ?Instructions ?Recorded ?Last Taken ?Type pantoprazole 40 mg tablet,delayed 40 mg PO BID GERD 03/29/19 10/24/23 History release amitriptyline 25 mg tablet 25 mg PO QHS MOOD 08/10/19 07/20/24 History rosuvastatin 20 mg tablet (Crestor) 20 mg PO QHS CHOLESTEROL 08/25/19 07/20/24 History sitagliptin phosphate 50 mg tablet 50 mg PO DAILY DIABETES 09/04/19 07/20/24 History (Januvia) duloxetine 60 mg capsule,delayed 60 mg PO BID DEPRESSION 10/19/20 04/25/24 History release pregabalin 100 mg capsule 100 mg PO DAILY PAIN 05/18/21 07/20/24 History sacubitril 49 mg-valsartan 51 mg 1 tab PO BID HEART 02/11/22 07/20/24 History tablet (Entresto) alendronate 70 mg tablet 70 mg PO TU BONES 02/13/22 07/15/24 History aspirin 81 mg tablet,delayed 81 mg PO DAILY@0800 HEART HEALTH 02/15/22 04/25/24 History release dicyclomine 20 mg tablet 20 mg PO TIDCM IRRITABLE BOWELS 09/11/22 07/20/24 History apixaban 5 mg tablet (Eliquis) 5 mg PO BID blood thinner 30 days 09/18/22 12/26/24 Rx #60 tabs benzonatate 100 mg capsule 100 - 200 mg PO Q8H PRN COUGH 05/28/23 Unknown History venlafaxine 75 mg tablet 150 mg PO BID DEPRESSION 05/29/23 07/20/24 History carvedilol 25 mg tablet (Coreg) 25 mg PO BIDCM HEART 10/24/23 07/20/24 History fluticasone 500 mcg-salmeterol 50 1 ea inhalation BID Asthma 04/25/24 04/25/24 History mcg/dose blistr powdr for inhalation (Advair Diskus) levothyroxine 125 mcg tablet 125 mcg PO DAILY Hypothyroidism 04/25/24 07/20/24 History ascorbic acid (vitamin C) 500 mg 500 mg PO DAILY Supplement 05/01/24 Unknown History tablet calcium 600 mg (as 1 tab PO DAILY Supplement 05/01/24 Unknown History carbonate)-vitamin D3 5 mcg (200 unit) tablet (Calcium 600 + D(3)) cetirizine 10 mg capsule (All Day 10 mg PO DAILY Allergies 05/01/24 Unknown History Allergy (cetirizine)) cholecalciferol (vitamin D3) 50 50 mcg PO DAILY Supplement 05/01/24 Unknown History mcg (2,000 unit) tablet (Vitamin D3) magnesium oxide 400 mg PO DAILY Supplement 05/01/24 Unknown History zinc acetate 50 mg (zinc) capsule 50 mg PO DAILY Supplement 05/01/24 Unknown History (Galzin) Allergy/AdvReac Type Severity Reaction Status Date / Time adhesive Allergy skin Verified 01/15/25 15:50 irritation amlodipine (From Norvasc) Allergy tachycardia Verified 01/15/25 15:50 hydromorphone HCl (From Allergy Itching Verified 01/15/25 15:50 Dilaudid) sulfamethoxazole (From Allergy made my Verified 01/15/25 15:50 Bactrim) cold sore huge trimethoprim (From Bactrim) Allergy made my Verified 01/15/25 15:50 cold sore huge Family History Grandfather Alcoholism Grandmother Myocardial infarction Mother Arthritis Diverticulitis COPD (chronic obstructive pulmonary disease) Afib Thyroid disorder Father Arthritis Diabetes Myocardial infarction Heart disease Ischemic Hypertension Hyperlipidemia Brother Arthritis Aunt Breast cancer Sister Arthritis Thyroid disorder Skin cancer Uncle Diabetes Surgical History History of angioplasty of peripheral vessel (2010) History of left heart catheterization (2011) History of trigger finger Ankle fracture Strangulated ventral hernia History of back surgery Fracture of left femur History of ventral hernia repair History of intestine removal History of arthroscopic knee surgery History of bilateral knee replacement History of cholecystectomy History of carpal tunnel release History of tonsillectomy and adenoidectomy Social History household members: none Smoking Status: Former smoker how long ago did patient quit smokin alcohol intake: never substance use type: does not use what type of physical activity do you participate in: other EXAM Physical Exam Const Vital Signs: 01/15/25 15:49 01/15/25 17:47 Temperature 98.2 F Temperature Source Temporal Pulse Rate 75 73 Respiratory Rate 16 Blood Pressure 144/72 H 139/71 H Blood Pressure Mean 96 93 Pulse Ox 98 95 Oxygen Delivery Method Room Air Room Air MDM MDM MDM Narrative Medical decision making narrative: HISTORY OF PRESENT ILLNESS: 64-year-old female presents for repeat blood draw. She states her doctor wanted to come in to get her H&H checked. She does note shortness of breath been ongoing for past 3 weeks is not particularly worse. No cough. No fever. No bleeding diathesis. REVIEW OF SYSTEMS: Pertinent positives: Shortness of breath Pertinent negatives: Chest pain, syncope PHYSICAL EXAM: Nursing triage notes reviewed, Vital signs reviewed Constitutional: please see mdm HENT: MMM Eyes: Pupils equal round and reactive to light, Extraocular muscles intact Neck: No stridor, no JVD, full neck ROM Lungs: Clear to auscultation, No wheezing or rales. No increased work of breathing, no conversational dyspnea, no accessory muscle use, no nasal flaring. No respiratory distress noted Heart: Regular rate and rhythm, No murmurs, No rubs and No gallops, 2+ distal pulses (radial, femoral, posterior tibial) in all extremities Abdomen: Soft, there is no tenderness, rigidity, rebound or guarding, no obvious peritoneal signs, no palpable pulsatile abdominal masses, no auscultated abdominal bruit : No CVAT Extremities: No edema Neuro: No new focal neurological deficits, cranial nerves II through XII intact, 5/5 strength in all present extremities. Intact sensation to light touch in all present extremities, 2+ reflexes bilateral patella tendons. Skin: No rash or lesions noted Rectal: Refused by patient MEDICAL DECISION MAKING: Chief Complaint: Abnormal External records reviewed: Reviewed prior CBC which showed an hemoglobin of 8.1 which is similar to prior studies from December which range anywhere from 7.6-8.8. Reviewed the patient's MyChart from outside records which showed a hemoglobin of 6.8 on 01/09/2025 Factors affecting care: Takes a blood thinner Social determinants of health: none History obtained from others: none Consults: none [facility] Narrative: Patient was initially hemodynamically stable, afebrile and nontoxic-appearing. Exam unremarkable. Offered rectal exam however patient refused. I considered the following differential diagnosis: Anemia, pneumonia, electrolyte disturbance, ACS ALL IMAGES (IF OBTAINED) HAVE BEEN PERSONALLY REVIEWED AND INTERPRETED BY MYSELF. EKG with normal sinus rhythm, normal axis, no intervals, no STEMI High-sensitivity troponin is negative, no evidence of myocardial ischemia (in the setting of no chest pain) CBC with no leukocytosis, noted mild baseline anemia. Hemoglobin is greater than 7 no indication for transfusion at this time. No thrombocytopenia BMP without evidence of significant electrolyte abnormalities, no anion gap, no acute kidney injury. I have personally reviewed the patient's chest x-ray. Chest x-ray is unremarkable for pulmonary edema, pneumothorax, pneumonia or focal cardiopulmonary abnormality. The synthesis of the patient history, physical exam, labs and presents no acute life-limiting etiology. Please follow-up with your primary care physician for repeat outpatient labs. The patient and/or family, caregivers express understanding. The patient and/or family, caregivers agrees with the plan. Shared decision making: I will have a discussion with the patient and or visitors regarding risk/benefits of further testing or admission. They will be made aware of of the risk/benefits inherent in this decision they will be given the opportunity to voice understanding. Total critical care time today provided was at least 0 minutes. This excludes separately billable procedures. Critical care time (if documented) is secondary to the patient having high probability of clinically significant/life threatening deterioration in the patient's condition which required my urgent intervention. Impression: 1. Anemia 2. Encounter for lab evaluation Dispo: Discharge This note was generated with [email or web address] dictation software. It may contain incorrect words, spelling, and punctuation that were not noted in review of the chart prior to signing. Lab Data Labs: Laboratory Results - last 24 hr 01/15/25 17:05 WBC 8.0 RBC 2.69 L Hgb 7.8 L Hct 25.9 L MCV 96.3 MCH 29.0 MCHC 30.1 L RDW Std Deviation 56.1 H RDW Coeff of Lencho 16.6 H Plt Count 180 MPV 10.1 Sodium 135 Potassium 5.4 H Chloride 100 Carbon Dioxide 21.2 Anion Gap 13 BUN 14 Creatinine 0.97 Estim Creat Clear Calc 63.18 Est GFR (MDRD) Non-Af 65 BUN/Creatinine Ratio 14.2 Glucose 91 Calcium 9.3 Troponin T High Sens 15 H Radiography Diagnostic Testing: Clinical Impression(s) from Imaging Studies Chest X-Ray 01/15/25 17:10 IMPRESSION: See above Reading Location: [facility] Discharge Plan Triage Chief Complaint: Abn Labs ED Provider: Kirk Orlando Dx/Rx/DC Orders Prescriptions: No Action Januvia 50 mg tablet 50 mg PO DAILY rosuvastatin [Crestor] 20 mg tablet 20 mg PO QHS pregabalin 100 mg capsule 100 mg PO DAILY pantoprazole 40 MG tablet 40 mg PO BID amitriptyline 25 MG tablet 25 mg PO QHS duloxetine 60 MG capsule 60 mg PO BID sacubitril-valsartan [Entresto] 49-51 mg Tablet 1 tab PO BID alendronate 70 MG tablet 70 mg PO TU aspirin 81 MG tablet,delayed release (DR/EC) 81 mg PO DAILY@0800 dicyclomine 20 mg Tablet 20 mg PO TIDCM Eliquis 5 mg Tablet 5 mg PO BID 30 Days Qty: 60 0RF Patient Comments: Start taking May 03, 2024 carvedilol [Coreg] 25 mg tablet 25 mg PO BIDCM benzonatate 100 mg capsule 100 - 200 mg PO Q8H PRN (Reason: COUGH ) venlafaxine 75 mg tablet 150 mg PO BID Patient Comments: 75mgin AM and 150 mg QPM levothyroxine 125 mcg tablet 125 mcg PO DAILY fluticasone propion-salmeterol [Advair Diskus] 500-50 mcg/dose blister with device 1 ea inhalation BID ascorbic acid (vitamin C) 500 mg tablet 500 mg PO DAILY calcium carbonate-vitamin D3 [Calcium 600 + D(3)] 600 mg-5 mcg (200 unit) tablet 1 tab PO DAILY All Day Allergy (cetirizine) 10 mg capsule 10 mg PO DAILY magnesium oxide 400 mg magnesium tablet 400 mg PO DAILY cholecalciferol (vitamin D3) [Vitamin D3] 50 mcg (2,000 unit) tablet 50 mcg PO DAILY Galzin 50 mg (zinc) capsule 50 mg PO DAILY Primary Care Provider: Brandon Torres Referrals: Brandon Torres DO [Primary Care Provider] - Print Language: Bulgarian
--- NOTE | 2025-01-15 16:51 | EKG12_ITS ---
Test Reason : ABNORMAL LABS Blood Pressure : */* mmHG Vent. Rate : 73 BPM Atrial Rate : * BPM P-R Int : * ms QRS Dur : 92 ms QT Int : 376 ms P-R-T Axes : * 33 31 degrees QTcB Int : 414 ms Sinus rhythm Abnormal ECG Confirmed by JUAN CASTRO, KALIA ([id number]), story editor ANASTASIA HENSON ([id number]) on 01/19/2025 10:57:17 AM Referred By: Confirmed By: KALIA MARTINEZ MD
--- NOTE | 2025-01-15 17:10 | RAD_ITS ---
PROCEDURE: CHEST 1 VIEW (PORTABLE) 01/15/2025 REASON FOR EXAM: SHORTNESS OF BREATH TECHNIQUE: Frontal view of the chest. COMPARISON: 12/28/2024 FINDINGS: Interval removal previously noted feeding tube and left central venous catheter. The heart size is normal. Mild right diaphragmatic elevation. Bibasilar atelectasis. No focal consolidation. No pneumothorax. No pleural effusion. RAD/Chest 1 View (Portable) IMPRESSION: See above Reading Location: [facility]
[2025-01-15 17:18] LABS: Hematocrit 25.9 % (37-47); Hemoglobin 7.8 g/dL (12.0-15.0); Mean Corp Hgb Conc 30.1 g/dL (32-36); Mean Corpuscular Volume 96.3 fL (81-99); Mean Platelet Vol. 10.1 fl (6.2-12.0); Platelet Count 180 K/mm3 (150-450); RBC Distribution Width CV 16.6 % (11.6-14.6); RBC Distribution Width SD 56.1 fl (35.1-43.9); Red Blood Count 2.69 M/mm3 (4.2-5.4)
[2025-01-15 17:44] LABS: Anion Gap 13 (5-15); BUN 14 mg/dL (4-19); BUN/Creat Ratio 14.2 RATIO (10-20); Calcium,Total 9.3 mg/dL (7.6-11.0); Carbon Dioxide 21.2 mmol/L (21.0-32.0); Chloride 100 mmol/L (98-108); Creatinine, Serum 0.97 mg/dL (0.70-1.20); EST Glomerular Filtration Rate 65 (>60); Estimated Creatinine Clearance 63.18 ml/min (50-250); Glucose 91 mg/dL (70-99); Potassium 5.4 mmol/L (3.3-5.1); Sodium Level 135 mmol/L (133-145); Troponin T High Sensitivity 15 ng/L (<=14)
[2025-01-15 17:47] VITALS: BP 139/71; PULSE 73; O2SAT 95
[2025-01-15 18:03] VITALS: BP 139/71; PULSE 73; RESP 16; TEMP 36.8; O2SAT 95
== END 2025-01-15 18:09 | disposition home or self-care (01) ==
PROVIDERS: Emergency Provider Emergency Medicine; PCP Student in an Organized Health Care Education/Training Program; Visit Provider Emergency Medicine
DX: Z04.89 Encounter for examination and observation for other specified reasons (principal); I13.0 Hypertensive heart and chronic kidney disease with heart failure and stage 1 through stage 4 chronic kidney disease, or unspecified chronic kidney disease; I50.22 Chronic systolic (congestive) heart failure; J44.9 Chronic obstructive pulmonary disease, unspecified; E11.22 Type 2 diabetes mellitus with diabetic chronic kidney disease; N18.30 Chronic kidney disease, stage 3 unspecified; Z87.891 Personal history of nicotine dependence; E78.5 Hyperlipidemia, unspecified; I25.10 Atherosclerotic heart disease of native coronary artery without angina pectoris; D64.9 Anemia, unspecified; Z86.73 Personal history of transient ischemic attack (TIA), and cerebral infarction without residual deficits; K21.9 Gastro-esophageal reflux disease without esophagitis; Z79.899 Other long term (current) drug therapy; F32.A Depression, unspecified; Z79.82 Long term (current) use of aspirin; E03.9 Hypothyroidism, unspecified; Z79.51 Long term (current) use of inhaled steroids; Z96.653 Presence of artificial knee joint, bilateral; Z90.49 Acquired absence of other specified parts of digestive tract
CPT/HCPCS: 71045; 80048; 84484; 85027; 93005; 99283; A4216

== ENCOUNTER 2025-01-26 08:22 | Outpatient (CLI) | payer MEDICARE, MEDICAID, SELFPAY ==
[2025-01-26] VITALS (7 sets, daily range): BP systolic 96–127; BP diastolic 52–63; PULSE 71–78; RESP 16; TEMP 35.6–36.3; O2SAT 94–96; BMI 31.2
== END 2025-01-26 23:59 | disposition home or self-care (01) ==
PROVIDERS: PCP Student in an Organized Health Care Education/Training Program; Referring Provider Nurse Practitioner Family; Visit Provider Nurse Practitioner Family
DX: D50.9 Iron deficiency anemia, unspecified (principal)
CPT/HCPCS: 36415; 36430; 86850; 86900; 86901; P9016; A4216

== ENCOUNTER 2025-10-03 05:57 | Emergency (ER) | payer MEDICARE, MEDICAID, SELFPAY ==
[2025-10-03 06:06] VITALS: BP 57/37; PULSE 85; RESP 17; TEMP 36.8; O2SAT 98; BMI 34.2
[2025-10-03 06:14] VITALS: BP 50/29
--- NOTE | 2025-10-03 06:17 | EKG12_ITS ---
Test Reason : WEAKNESS Blood Pressure : */* mmHG Vent. Rate : 75 BPM Atrial Rate : 75 BPM P-R Int : 180 ms QRS Dur : 102 ms QT Int : 430 ms P-R-T Axes : 50 46 48 degrees QTcB Int : 480 ms Normal sinus rhythm Normal ECG Confirmed by Paul Plunkett ([id number]), online editor ANASTASIA HENSON ([id number]) on 10/05/2025 8:22:27 AM Referred By: Confirmed By: Paul Plunkett
[2025-10-03 07:07] LABS: Hematocrit 33.3 % (37-47); Hemoglobin 10.4 g/dL (12.0-15.0); Immature Granulocytes Count 0.090 X10^3/uL (0.0-0.0); Mean Corp Hgb Conc 31.2 g/dL (32-36); Mean Corpuscular Volume 99.4 fL (81-99); Mean Platelet Vol. 10.5 fl (6.2-12.0); NRBC Flagged by Analyzer 0 % (0-5); Platelet Count 213 K/mm3 (150-450); RBC Distribution Width CV 13.8 % (11.6-14.6); RBC Distribution Width SD 49.8 fl (35.1-43.9); Red Blood Count 3.35 M/mm3 (4.2-5.4); White Blood Count 12.8 K/mm3 (4.4-11.0)
[2025-10-03] MEDS: 0.9% Normal Saline (1000mL) 1,000 ML 999 ML IV ×3 (07:11→09:03)
[2025-10-03 07:15] VITALS: BP 76/49; PULSE 78; RESP 18; O2SAT 100
--- NOTE | 2025-10-03 07:18 | ED.RN ---
attempted the port in r subclavien bby 3 different nurses.unsuccessful--will not flush or draw.
--- NOTE | 2025-10-03 07:32 | EX.ED.DYSGE1 ---
HPI History of Present Illness Chief Complaint: Weakness Narrative Narrative: Patient was seen and examined after presenting to ED for weakness has a history of anemia patient feels very lightheaded and dizzy she was noted to be hypotensive denied having any fevers or chills or cough or chest pain or pressure or shortness of breath. Patient denies having any black or bloody stools. [facility] Medical History ARTIE (acute kidney injury) Nausea vomiting and diarrhea Acute hypotension Macrocytic anemia Pneumoperitoneum Type 2 diabetes mellitus with hyperglycemia COPD (chronic obstructive pulmonary disease) Acute anemia Perforated gastric ulcer Nondisplaced fracture of fifth right metatarsal bone Anemia History of type 2 diabetes mellitus History of hypertension Right femoral fracture Depression Hypothyroidism History of MRSA infection of lungs Delirium Debility Falls Metabolic encephalopathy Complicated urinary tract infection Acute hypotension Brain TIA Embolic stroke Normocytic anemia History of stroke Diabetes mellitus Hyperlipidemia Hypertension Stroke/cerebrovascular accident Cardiomyopathy Chronic systolic (congestive) heart failure Non-ischemic cardiomyopathy History of CVA (cerebrovascular accident) (2018) Flash pulmonary edema (01/16/21) Peripheral vascular disease History of depression Atherosclerosis of coronary artery without angina pectoris CKD (chronic kidney disease) stage 3, GFR 30-59 ml/min Asthma exacerbation Pulmonary edema Acute respiratory failure with hypoxia Trigeminal trophic syndrome Stomach ulcer Hypothyroidism Osteopenia Osteoarthritis Kidney disease Hyperlipidemia Essential hypertension Chronic headaches GI problem Gallstones History of emotional problems Type 2 diabetes mellitus Carpal tunnel syndrome Bone fracture Asthma Anemia Seasonal allergies Herpes simplex GERD (gastroesophageal reflux disease) Allergic rhinitis Irritable bowel syndrome Gait difficulty Right hemiparesis Debility Osteoporosis Normochromic normocytic anemia Secondary adrenal insufficiency ACTH deficiency Neuropathy Falls Hypotension Carotid artery stenosis Bilateral leg weakness History of ischemic colitis Chronic constipation with suspected IBS Obesity Hx of diverticulitis of colon History of Clostridium difficile infection Home Medications ?Medication ?Instructions ?Recorded ?Last Taken ?Type pantoprazole 40 mg tablet,delayed 40 mg PO BID GERD 03/29/19 10/24/23 History release amitriptyline 25 mg tablet 25 mg PO QHS MOOD 08/10/19 07/20/24 History rosuvastatin 20 mg tablet (Crestor) 20 mg PO QHS CHOLESTEROL 08/25/19 07/20/24 History sitagliptin phosphate 50 mg tablet 50 mg PO DAILY DIABETES 09/04/19 07/20/24 History (Januvia) duloxetine 60 mg capsule,delayed 60 mg PO BID DEPRESSION 10/19/20 04/25/24 History release pregabalin 100 mg capsule 100 mg PO DAILY PAIN 05/18/21 07/20/24 History sacubitril 49 mg-valsartan 51 mg 1 tab PO BID HEART 02/11/22 07/20/24 History tablet (Entresto) alendronate 70 mg tablet 70 mg PO TU BONES 02/13/22 07/15/24 History aspirin 81 mg tablet,delayed 81 mg PO DAILY@0800 HEART HEALTH 02/15/22 04/25/24 History release dicyclomine 20 mg tablet 20 mg PO TIDCM IRRITABLE BOWELS 09/11/22 07/20/24 History apixaban 5 mg tablet (Eliquis) 5 mg PO BID blood thinner 30 days 09/18/22 12/26/24 Rx #60 tabs benzonatate 100 mg capsule 100 - 200 mg PO Q8H PRN COUGH 05/28/23 Unknown History venlafaxine 75 mg tablet 150 mg PO BID DEPRESSION 05/29/23 07/20/24 History carvedilol 25 mg tablet (Coreg) 25 mg PO BIDCM HEART 10/24/23 07/20/24 History fluticasone 500 mcg-salmeterol 50 1 ea inhalation BID Asthma 04/25/24 04/25/24 History mcg/dose blistr powdr for inhalation (Advair Diskus) levothyroxine 125 mcg tablet 125 mcg PO DAILY Hypothyroidism 04/25/24 07/20/24 History ascorbic acid (vitamin C) 500 mg 500 mg PO DAILY Supplement 05/01/24 Unknown History tablet calcium 600 mg (as 1 tab PO DAILY Supplement 05/01/24 Unknown History carbonate)-vitamin D3 5 mcg (200 unit) tablet (Calcium 600 + D(3)) cetirizine 10 mg capsule (All Day 10 mg PO DAILY Allergies 05/01/24 Unknown History Allergy (cetirizine)) cholecalciferol (vitamin D3) 50 50 mcg PO DAILY Supplement 05/01/24 Unknown History mcg (2,000 unit) tablet (Vitamin D3) magnesium oxide 400 mg PO DAILY Supplement 05/01/24 Unknown History zinc acetate 50 mg (zinc) capsule 50 mg PO DAILY Supplement 05/01/24 Unknown History (Galzin) montelukast 10 mg tablet 10 mg PO DAILY 01/26/25 Unknown History Allergy/AdvReac Type Severity Reaction Status Date / Time adhesive Allergy skin Verified 10/03/25 06:13 irritation amlodipine (From Norvasc) Allergy tachycardia Verified 10/03/25 06:13 hydromorphone HCl (From Allergy Itching Verified 10/03/25 06:13 Dilaudid) sulfamethoxazole (From Allergy made my Verified 10/03/25 06:13 Bactrim) cold sore huge nausea/vomiting trimethoprim (From Bactrim) Allergy made my Verified 10/03/25 06:13 cold sore huge nausea/vomiting Family History Grandfather Alcoholism Grandmother Myocardial infarction Mother Arthritis Diverticulitis COPD (chronic obstructive pulmonary disease) Afib Thyroid disorder Father Arthritis Diabetes Myocardial infarction Heart disease Ischemic Hypertension Hyperlipidemia Brother Arthritis Aunt Breast cancer Sister Arthritis Thyroid disorder Skin cancer Uncle Diabetes Surgical History History of angioplasty of peripheral vessel (2010) History of left heart catheterization (2011) History of trigger finger Ankle fracture Strangulated ventral hernia History of back surgery Fracture of left femur History of ventral hernia repair History of intestine removal History of arthroscopic knee surgery History of bilateral knee replacement History of cholecystectomy History of carpal tunnel release History of tonsillectomy and adenoidectomy Social History household members: none Smoking Status: Former smoker how long ago did patient quit smokin alcohol intake: never substance use type: does not use what type of physical activity do you participate in: other ROS ROS ED ROS Narrative Critical care caveat applies EXAM Physical Exam Narrative Exam Narrative: Patient is afebrile however she is hypotensive initially blood pressure is 57/37 it has been improving with IV fluids she appears to be very dry her mucous membranes are very dry her tongue is very dry she has normal heart and lung sounds her abdomen is soft nondistended no specific areas of tenderness. She initially had a fairly weak radial pulse however it did not start to improve as compared bilaterally she has intact MSPs in her lower extremities as well she appears to be mentating appropriately. Const Vital Signs: 10/03/25 06:06 10/03/25 06:13 10/03/25 06:14 Temperature 98.2 F Temperature Source Oral Pulse Rate 85 Respiratory Rate 17 Respiratory Effort Normal Blood Pressure 57/37 L 50/29 L Blood Pressure Mean 43 36 Pulse Ox 98 Oxygen Delivery Method Room Air 10/03/25 06:17 10/03/25 07:15 10/03/25 08:00 Temperature 97.0 F L Temperature Source Temporal Pulse Rate 78 82 Respiratory Rate 18 19 H Respiratory Effort Blood Pressure 76/49 L 92/54 L Blood Pressure Mean 58 66 Pulse Ox 100 100 Oxygen Delivery Method Room Air Room Air Room Air Sepsis Attestation Sepsis Alert: Yes Sepsis Attestation: Agree w/Sepsis Date exam was performed: 10/03/25 Time exam was performed: 06:10 Possible Source of Sepsis: Unknown Sepsis Organ Dysfunction Criteria Present: SBP < 90 mmHg or MAP < 65 mmHg Fluid Resuscitation Fluid resuscitation indicated?: Yes Fluid Resuscitation ordered: Lesser volume fluid bolus ordered Amount of fluid ordered: 2,000 Reason for lesser fluid bolus:: Other (based off ideal body weight) MDM MDM MDM Narrative Medical decision making narrative: Nursing notes, triage notes, available previous documentation, and vital signs were reviewed. Any discrepancies noted were addressed. Differential Diagnoses: Need to consider the possibility of a GI bleed and to consider possibility of infectious process such as UTI or pneumonia. Also be very volume depleted Interventions: Antibiotics Given: Vancomycin and Zosyn Fluids Given: 3 L normal saline Labs Reviewed: Has a leukocytosis of 12.8 hemoglobin is 10.4 she apparently had a hemoglobin checked about 10 days ago she states it was 10.9. Platelets are 213. No electrolyte abnormality BUN slightly elevated 23 creatinine is 1.5 baseline is around 0.6-0.9 lactic acid is less than 1 no transaminitis negative for flu COVID RSV Imaging Reviewed: Personally reviewed and interpreted by me: Chest x-ray reviewed at bedside no obvious pneumonia she does have an elevated right hemidiaphragm EKG: Normal sinus rhythm rate of [address] segment elevation [place] interval abnormalities QTc were 480. EKG interpretation is noted and agreed to in the EMR. The interpretation of this patient's EKG contributed directly to the care and management of this patient. Previous Documentation Reviewed: General Surgery visit from 01/14/2025 for the patient was seen after a postop visit for recent hospitalization and surgery for perforated gastric ulcer she is on previous course of steroids in addition to chronic NSAID use that was suspected to have caused the ED Course: Patient presenting with symptoms as described above but she was hypotensive she does appear to be responding to fluids however she is given broad-spectrum antibiotics concerns for an infectious process patient's hemoglobin is 10.4 apparently stable compared to where she was 10 days ago she states her hemoglobin was 10.9. 0845: Patient notified nursing staff that she did not want to stay or be admitted when I went to evaluate her her blood pressure is significantly better is now on the triple digits she told me they will my walking around blood pressure at home is usually in the 90s so this is unheard of I usually do not feel any symptoms unless I drop below 70s for the top number. Patient is adamant that she does not want to stay. Again she was offered admission however she was declining she is of sound mind to make any decision she would like given the fact that her blood pressure is improving she does not seem to have any other infectious-like symptoms she was very dry and most likely dehydrated then I would be fine with this patient going home. Patient will be endorsed to oncoming physician see their separate note or addendum regarding final disposition but plan is for this patient to be discharged 34 minutes of critical care time utilized in managing the patient. This is due to high probability of and deterioration of the patient based on the patient's condition and excludes any separately billable procedures. This note was made utilizing voice recognition software. All attempts were made to correct spelling or other errors prior to note completion. However, due to the fast-paced nature of emergency medicine, some errors may still be present. Lab Data Labs: Laboratory Results - last 24 hr 10/03/25 10/03/25 10/03/25 06:55 07:40 08:20 WBC 12.8 H RBC 3.35 L Hgb 10.4 L Hct 33.3 L MCV 99.4 H MCH 31.0 MCHC 31.2 L RDW Std Deviation 49.8 H RDW Coeff of Lencho 13.8 Plt Count 213 MPV 10.5 Immature Gran % (Auto) 0.700 Neut % (Auto) 76.9 H Lymph % (Auto) 14.4 L [place] % (Auto) 6.3 Eos % (Auto) 1.0 Baso % (Auto) 0.7 Absolute Neuts (auto) 9.8 H Absolute Lymphs (auto) 1.84 Nucleated RBC % 0 Sodium 139 Potassium 4.2 Chloride 107 Carbon Dioxide 21.1 Anion Gap 11 BUN 23 H Creatinine 1.54 H Estim Creat Clear Calc 41.67 L Est GFR (MDRD) Non-Af 37 L BUN/Creatinine Ratio 15.2 Glucose 118 H Lactic Acid < 1.0 Calcium 8.3 Total Bilirubin 0.17 AST 29 ALT 30 Alkaline Phosphatase 57 Total Protein 6.0 Albumin 3.4 Globulin 2.7 Albumin/Globulin Ratio 1.3 Urine Color Yellow Urine Clarity Sl. Cloudy Urine pH 6.0 Ur Specific [place] 1.020 Urine Protein 100 H Urine Glucose (UA) Normal Urine Ketones Negative Urine Occult Blood 10 H Urine Nitrite Negative Urine Bilirubin Negative Urine Urobilinogen Normal Ur Leukocyte Esterase 500 H Blood Type A POSITIVE Antibody Screen NEGATIVE Discharge Plan Triage Chief Complaint: Weakness ED Provider: Demarcus Lange Dx/Rx/DC Orders Clinical Impression: Hypotension, Dehydration, ARTIE (acute kidney injury) Instructions: Dehydration Prescriptions: No Action Januvia 50 mg tablet 50 mg PO DAILY rosuvastatin [Crestor] 20 mg tablet 20 mg PO QHS pregabalin 100 mg capsule 100 mg PO DAILY pantoprazole 40 MG tablet 40 mg PO BID amitriptyline 25 MG tablet 25 mg PO QHS duloxetine 60 MG capsule 60 mg PO BID sacubitril-valsartan [Entresto] 49-51 mg Tablet 1 tab PO BID alendronate 70 MG tablet 70 mg PO TU aspirin 81 MG tablet,delayed release (DR/EC) 81 mg PO DAILY@0800 dicyclomine 20 mg Tablet 20 mg PO TIDCM Eliquis 5 mg Tablet 5 mg PO BID 30 Days Qty: 60 0RF Patient Comments: Start taking May 03, 2024 carvedilol [Coreg] 25 mg tablet 25 mg PO BIDCM benzonatate 100 mg capsule 100 - 200 mg PO Q8H PRN (Reason: COUGH ) venlafaxine 75 mg tablet 150 mg PO BID Patient Comments: 75mgin AM and 150 mg QPM levothyroxine 125 mcg tablet 125 mcg PO DAILY fluticasone propion-salmeterol [Advair Diskus] 500-50 mcg/dose blister with device 1 ea inhalation BID ascorbic acid (vitamin C) 500 mg tablet 500 mg PO DAILY calcium carbonate-vitamin D3 [Calcium 600 + D(3)] 600 mg-5 mcg (200 unit) tablet 1 tab PO DAILY All Day Allergy (cetirizine) 10 mg capsule 10 mg PO DAILY magnesium oxide 400 mg magnesium tablet 400 mg PO DAILY cholecalciferol (vitamin D3) [Vitamin D3] 50 mcg (2,000 unit) tablet 50 mcg PO DAILY Galzin 50 mg (zinc) capsule 50 mg PO DAILY montelukast 10 mg tablet 10 mg PO DAILY Primary Care Provider: Brandon Torres Referrals: Brandon Torres, [Primary Care Provider, Medical] Activity Restrictions/Additional Instructions: Be sure to stay hydrated if you are having worsening symptoms do not hesitate to return again you can always come back and be evaluated for admission again Print Language: Yakut Disposition Disposition: Home, Self Care
[2025-10-03 08:00] VITALS: BP 92/54; PULSE 82; RESP 19; TEMP 36.1; O2SAT 100
[2025-10-03] MEDS: Piperacil/Tazobactam 4.5 GM in 0.9% Normal Saline (100mL MB+) 100 ML IV (08:01)
[2025-10-03 08:27] LABS: Mucous, Urine 0 SEEN /hpf (<or=2+); Red Blood Cells-Urine 0 SEEN /hpf (0-5)
[2025-10-03 08:31] LABS: Color, Urine Yellow (Yellow); Glucose, Dipstick Normal (Normal); Ketone-Dipstick Negative (Negative); Leukocyte Esterase-Dipstick 500 /ul (Negative); Nitrite-Dipstick Negative (Negative); Occult Blood-Urine 10 /ul (Negative); Protein-Dipstick 100 mg/dl (Negative); Specific Gravity, Urine 1.020 (1.002-1.030); Urine Bilirubin Dipstick Negative (Negative)
[2025-10-03 08:31] LABS: AST(SGOT) 29 U/L (<=31); Alanine Aminotransfer ALT/SGPT 30 U/L (<=34); Albumin, Serum 3.4 g/dL (3.4-4.8); Alkaline Phosphatase 57 U/L (35-104); Anion Gap 11 (5-15); BUN 23 mg/dL (4-19); BUN/Creat Ratio 15.2 RATIO (10-20); Calcium,Total 8.3 mg/dL (7.6-11.0); Carbon Dioxide 21.1 mmol/L (21.0-32.0); Chloride 107 mmol/L (98-108); Estimated Creatinine Clearance 41.67 ml/min (50-250); Globulin 2.7 g/dL (2.2-4.2); Glucose 118 mg/dL (70-99); Potassium 4.2 mmol/L (3.3-5.1)
--- NOTE | 2025-10-03 08:45 | RAD_ITS ---
PROCEDURE: CHEST 1 VIEW (PORTABLE) 10/03/2025 REASON FOR EXAM: HYPOTENSION TECHNIQUE: Frontal view of the chest. COMPARISON: 01/15/2025 FINDINGS: A vascular access port overlies the right hemithorax. No pneumothorax. There is persistent opacity over the right upper lung zone medially. Increased interstitial markings are noted at the left lung base similar to the previous study. No pleural effusion. The cardiomediastinal silhouette and osseous structures are unremarkable. And he is wearing a normal bands at [facility] degenerative acromioclavicular joint change RAD/Chest 1 View (Portable) IMPRESSION: Persistent opacity over the right upper lung zone. Vascular access port as abo ve. Reading Location: [facility]
[2025-10-03 08:58] LABS: Squamous Epithelial Cells - UA 0-5 SEEN /hpf (5-10)
[2025-10-03 09:00] VITALS: BP 94/59
[2025-10-03] MEDS: Vancomycin HCl 2,000 MG in 0.9% Normal Saline (500mL Bag) 500 ML 250 MG IV (09:03)
[2025-10-03 09:05] LABS: Prothrombin Time (Protime)PT. 17.3 SECONDS (11.7-14.9)
[2025-10-03 09:06] LABS: Partial Thromboplast Time 36.7 Seconds (24.1-36.2)
[2025-10-03 10:00] VITALS: BP 113/69; PULSE 89; RESP 16; O2SAT 95
== END 2025-10-03 10:27 | disposition left against medical advice (07) ==
PROVIDERS: Emergency Provider Specialist/Technologist Athletic Trainer; PCP Student in an Organized Health Care Education/Training Program; Visit Provider Specialist/Technologist Athletic Trainer
DX: R53.1 Weakness (principal); I50.22 Chronic systolic (congestive) heart failure; I13.0 Hypertensive heart and chronic kidney disease with heart failure and stage 1 through stage 4 chronic kidney disease, or unspecified chronic kidney disease; J44.9 Chronic obstructive pulmonary disease, unspecified; E11.22 Type 2 diabetes mellitus with diabetic chronic kidney disease; N18.30 Chronic kidney disease, stage 3 unspecified; N17.9 Acute kidney failure, unspecified; E86.0 Dehydration; I95.9 Hypotension, unspecified; I25.10 Atherosclerotic heart disease of native coronary artery without angina pectoris; E78.5 Hyperlipidemia, unspecified; Z87.891 Personal history of nicotine dependence; Z53.29 Procedure and treatment not carried out because of patient's decision for other reasons; K21.9 Gastro-esophageal reflux disease without esophagitis; Z79.899 Other long term (current) drug therapy; F32.A Depression, unspecified; Z86.73 Personal history of transient ischemic attack (TIA), and cerebral infarction without residual deficits; Z79.82 Long term (current) use of aspirin; Z79.84 Long term (current) use of oral hypoglycemic drugs; Z79.01 Long term (current) use of anticoagulants; Z79.51 Long term (current) use of inhaled steroids; E03.9 Hypothyroidism, unspecified; Z79.890 Hormone replacement therapy; Z96.653 Presence of artificial knee joint, bilateral; Z90.49 Acquired absence of other specified parts of digestive tract; R19.5 Other fecal abnormalities
CPT/HCPCS: 71045; 80053; 81001; 82274; 83605; 85025; 85610; 85730; 86850; 86900; 86901; 87040; 87086; 87631; 93005; 96361; 96365; 96367; 99285; A4216